=== PATIENT | male | born 1955 | race Caucasian/White ===

== ENCOUNTER 2021-07-04 17:43 | Inpatient (IN) | payer MEDICARE, MEDICAID, SELFPAY ==
--- NOTE | ~2021-07-04 | US_ITS ---
EXAMINATION: US DUPLEX LOWER EXTREMITY ARTERY LIMITED, RIGHT CLINICAL INFORMATION: 65-year-old male status post iliofemoral bypass. Left-sided colonic extremity. COMPARISON: None. TECHNIQUE: 2-D imaging, Doppler spectral analysis and color flow Doppler imaging was performed of the RIGHT lower extremity artery. FINDINGS: 2-D imaging and color Doppler evaluation of both lower extremity arterial tree shows evidence of diffuse atherosclerotic plaques throughout the entire arterial tree bilaterally. The peak systolic velocities (Peak systolic velocity of less than 100 cm/s is considered to be normal for [place] lower extremity arterial tree), and the arterial waveform (triphasic, biphasic, monophasic) are described as below: The peak systolic velocities (centimeters per second) within both lower extremities as well as the spectral waveform pattern are described below: A. Right lower extremity: 1. Common femoral artery-88.8, monophasic 2. Profunda artery-47.4, monophasic 3. Proximal femoral artery-374, monophasic, consistent with significant stenosis. 4. Mid femoral artery-45.1, monophasic 5. Distal femoral artery-22.1, monophasic 6. Popliteal artery-69.0, monophasic 7. Posterior tibial artery-39.8, monophasic Atherosclerotic plaques are noted throughout the entire right leg arteries. Left lower extremity: 1. Common femoral artery-64.88, biphasic 2. Profunda artery-47.2, biphasic 3. Proximal femoral artery-70.8, biphasic 4. Mid femoral artery-65.9, triphasic 5. Distal femoral artery-52.9, triphasic 6. Popliteal artery-68.9, biphasic 7. Posterior tibial artery-71.9, biphasic No sonographic evidence of any definite stent or bypass graft identified within the visualized arteries. US/US arterial duplex LE BI IMPRESSION: 1. Patent bilateral lower extremity arterial tree from the level of the common femoral artery through posterior tibial artery. 2. Duplex sonographic evidence of significant stenosis involving the proximal right femoral artery. 3. No definite sonographic evidence of stent or bypass graft identified within the visualized arteries bilaterally.
[2021-07-04 17:50] VITALS: BP 101/59; PULSE 111; RESP 16; TEMP 37.2; O2SAT 93; BMI 18.8
--- NOTE | 2021-07-04 21:55 | ED_ITS ---
HPI - Wound/Laceration General Chief Complaint: Wound/Laceration Stated Complaint: infection in feet Time Seen by Provider: 07/04/21 21:02 Source: patient Mode of arrival: ambulatory Limitations: no limitations History of Present Illness HPI narrative: Patient is 65 years old male with history of hypertension, HLD, COPD, CAD, status post PCI, GERD, PVD status post left femoral [place] popliteal bypass 2014 who present to [facility] on 05/18/2021 for acute on chronic left lower extremity ischemia status post left iliac stent done on 05/20/2021 patient discharged on 05/21 at the time of discharge patient has had 1+ lower extremity edema discoloration of lower extremity from ankle to foot was improving had small 1 cm ulceration on the lateral martin with no surrounding erythema since then patient noticed that had small blister on the dorsum of the left foot and the lateral aspect of left leg also on the right lateral aspect also which is getting worse patient applying Silvadene cream and bacitracin ointment without much improvement redness has increased from toe dorsum of the foot all the way to the mid leg is still feels the leg is cold. And complaining of pain and both legs. Patient denies any fever or chills no shortness of breath Related Data Allergies Allergy/AdvReac Type Severity Reaction Status Date / Time cephalexin [From Keflex] Allergy Rash Verified 07/04/21 18:09 ketorolac [From Toradol] Allergy Rash Verified 07/04/21 18:09 morphine Allergy Rash Verified 07/04/21 18:09 naproxen Allergy Rash Verified 07/04/21 18:09 metaxalone [From Skelaxin] AdvReac Headache Verified 07/04/21 18:09 Review of Systems Review of Systems: Yes all other systems are reviewed and are negative [facility] Past Medical History Medical History COPD (chronic obstructive pulmonary disease) DVT (deep venous thrombosis) Emphysema of lung Hypertension Myocardial infarction Surgical History Hx of heart artery stent Social History Social History Alcohol intake: former Patient Tobacco Use Status: Current everyday Tobacco user Use of substances other than those prescribed or required for medical reasons: Yes Substance Use Type: Marijuana Advance Directives: No Advance Directives Information Provided: No Physical Exam Vital Signs: Vital Signs: Last Vital Signs Temp 99 F 07/04/21 22:00 Pulse 111 H 07/04/21 22:00 Resp 15 07/04/21 22:43 BP 114/67 07/04/21 22:00 Pulse Ox 96 07/04/21 22:00 Oxygen Flow Rate 2 07/04/21 17:50 Body Mass Index 18.8 Const: General: comfortable and no acute distress Or ientation/consciousness: patient oriented x3 HENMT: Head: Yes normocephalic and Yes atraumatic Mouth: Normal oral and palatal mucosa present Eyes: General: appearance normal, both eyes and all related structures Neck: Neck: Yes normal visual inspection, Yes full ROM and Yes no lymphadenopathy Resp: Effort & Inspection: normal respiratory effort Auscultation: clear to auscultation bilaterally Cardio: Palpation: normal PMI Rate: regular rate Rhythm: regular rhythm Heart sounds: S1 normal heart sound present and S2 normal heart sound present Peripheral pulses: Peripheral pulses 2+ throughout GI: Inspection: Yes normal to inspection Palpation (GI): Soft to palpation and nontender Auscultation: normal bowel sounds Skin: Full body images: 1. Superficial denuded blister with erythematous base with surrounding erythema 2. open wound with healing granulation tissue with slight pus 3. Open wound with granulation tissue with surrounding erythema Neuro: General: patient oriented x3 Extrem: Other: Bilateral pedal edema left more than the right cold lower extremities left more than the right with erythema and open wounds 2+ popliteal very feeble dorsalis pedis?? bilateral MDM - Wound/Laceration MDM Narrative Medical decision making narrative: Patient arterial Doppler negative for any out to occlusion and both lower extremity will admit patient for nonhealing wounds and cellulitis of left leg Lab Data Attestation: I reviewed the patient's lab results. Result diagrams: 07/04/21 22:10 07/04/21 22:10 Labs: Lab Results 07/04/21 07/04/21 07/04/21 Range/Units 22:10 22:10 22:10 WBC 15.1 H (4.8-10.8) X10*3/uL RBC 3.26 L (4.60-5.80) X10*6/uL Hgb 10.0 L (14.0-18.0) g/dl Hct 30.9 L (42-52) % MCV 94.8 (80-98) fL MCH 30.7 (27.0-33.0) pg MCHC 32.4 (31.0-36.0) g/dl RDW 14.6 (11.0-16.0) % Plt Count 261 (160-400) X10*3/uL MPV 8.8 L (9.4-12.4) fL Immature Gran % (Auto) 2.4 H (0.0-0.4) % Neut % (Auto) 89.9 H (45-73) % Lymph % (Auto) 2.8 L (20-40) % [place] % (Auto) 4.6 (2-11) % Eos % (Auto) 0.2 (0-4) % Baso % (Auto) 0.1 (0-2) % Lymph # (Auto) 0.4 L (1.2-4.9) X10*3/uL [place] # (Auto) 0.7 (0.1-1.2) X10*3/uL Eos # (Auto) 0.0 (0.0-0.4) X10*3/uL Baso # (Auto) 0.0 (0.0-0.2) X10*3/uL Abs Immat Gran (auto) 0.36 H (0.00-0.03) X10*3/uL Absolute Neuts (auto) 13.6 H (2.0-8.3) X10*3/uL Absolute Nucleated RBC 0.000 (0.0-0.012) X10*3/uL Nucleated RBC % (auto) 0.0 (0.0-0.2) /100WBC PT 13.7 H (9.9-13.0) SEC INR 1.2 H (0.9-1.1) APTT 32.2 (24.1-38.0) SEC Sodium 139 (135-145) mmol/L Potassium 3.9 (3.3-5.1) mmol/L Chloride 93 L (96-108) mmol/L Carbon Dioxide 35 H (22-29) mmol/L Anion Gap 15 (12-20) BUN 26 H (9-16) mg/dL Creatinine 0.60 (0.5-1.4) mg/dL Estim Creat Clear Calc 112.3 Estimated GFR > 60 Random Glucose 119 H (60-115) mg/dL Lactic Acid (0.5-2.0) mmol/L Calcium 9.1 (8.4-10.2) mg/dL Total Bilirubin 0.4 (0.0-1.0) mg/dL Direct Bilirubin 0.2 (0.0-0.5) mg/dL AST 24 (5-37) U/L ALT 27 (0-40) U/L Alkaline Phosphatase 154 H (39-117) U/L Total Protein 5.9 L (6.5-8.0) g/dL Albumin 3.6 (3.5-5.0) g/dL 07/04/21 Range/Units 22:10 WBC (4.8-10.8) X10*3/uL RBC (4.60-5.80) X10*6/uL Hgb (14.0-18.0) g/dl Hct (42-52) % MCV (80-98) fL MCH (27.0-33.0) pg MCHC (31.0-36.0) g/dl RDW (11.0-16.0) % Plt Count (160-400) X10*3/uL MPV (9.4-12.4) fL Immature Gran % (Auto) (0.0-0.4) % Neut % (Auto) (45-73) % Lymph % (Auto) (20-40) % [place] % (Auto) (2-11) % Eos % (Auto) (0-4) % Baso % (Auto) (0-2) % Lymph # (Auto) (1.2-4.9) X10*3/uL [place] # (Auto) (0.1-1.2) X10*3/uL Eos # (Auto) (0.0-0.4) X10*3/uL Baso # (Auto) (0.0-0.2) X10*3/uL Abs Immat Gran (auto) (0.00-0.03) X10*3/uL Absolute Neuts (auto) (2.0-8.3) X10*3/uL Absolute Nucleated RBC (0.0-0.012) X10*3/uL Nucleated RBC % (auto) (0.0-0.2) /100WBC PT (9.9-13.0) SEC INR (0.9-1.1) APTT (24.1-38.0) SEC Sodium (135-145) mmol/L Potassium (3.3-5.1) mmol/L Chloride (96-108) mmol/L Carbon Dioxide (22-29) mmol/L Anion Gap (12-20) BUN (9-16) mg/dL Creatinine (0.5-1.4) mg/dL Estim Creat Clear Calc Estimated GFR Random Glucose (60-115) mg/dL Lactic Acid 1.5 (0.5-2.0) mmol/L Calcium (8.4-10.2) mg/dL Total Bilirubin (0.0-1.0) mg/dL Direct Bilirubin (0.0-0.5) mg/dL AST (5-37) U/L ALT (0-40) U/L Alkaline Phosphatase (39-117) U/L Total Protein (6.5-8.0) g/dL Albumin (3.5-5.0) g/dL Imaging Data Arterial Doppler lower extremity: Radiologist's impression: [place] [id number] Ultrasound Report Signed Patient: Carlos Brumfield MR#: [id number] : 1955 Acct:[id number] Age/Sex: 65 / M ADM Date: 07/04/21 Loc: .ED Attending Dr: Ordering Physician: Ramsey Mancia MD Date of Service: 07/04/21 Procedure(s): US arterial duplex LE BI Accession Number(s): [id number] cc: Ramsey Mancia MD~ EXAMINATION: US DUPLEX LOWER EXTREMITY ARTERY LIMITED, RIGHT CLINICAL INFORMATION: 65-year-old male status post iliofemoral bypass. Left-sided colonic extremity. COMPARISON: None. TECHNIQUE: 2-D imaging, Doppler spectral analysis and color flow Doppler imaging was performed of the RIGHT lower extremity artery. FINDINGS: 2-D imaging and color Doppler evaluation of both lower extremity arterial tree shows evidence of diffuse atherosclerotic plaques throughout the entire arterial tree bilaterally. The peak systolic velocities (Peak systolic velocity of less than 100 cm/s is considered to be normal for [place] lower extremity arterial tree), and the arterial waveform (triphasic, biphasic, monophasic) are described as below: The peak systolic velocities (centimeters per second) within both lower extremities as well as the spectral waveform pattern are described below: ?A. Right lower extremity: 1. Common femoral artery-88.8, monophasic 2. Profunda artery-47.4, monophasic 3. Proximal femoral artery-374, monophasic, consistent with significant stenosis. 4. Mid femoral artery-45.1, monophasic 5. Distal femoral artery-22.1, monophasic 6. Popliteal artery-69.0, monophasic 7. Posterior tibial artery-39.8, monophasic Atherosclerotic plaques are noted throughout the entire right leg arteries. Left lower extremity: 1. Common femoral artery-64.88, biphasic 2. Profunda artery-47.2, biphasic 3. Proximal femoral artery-70.8, biphasic 4. Mid femoral artery-65.9, triphasic 5. Distal femoral artery-52.9, triphasic 6. Popliteal artery-68.9, biphasic 7. Posterior tibial artery-71.9, biphasic No sonographic evidence of any definite stent or bypass graft identified within the visualized arteries. US/US arterial duplex LE BI IMPRESSION: ? 1. Patent bilateral lower extremity arterial tree from the level of the common femoral artery through posterior tibial artery. 2. Duplex sonographic evidence of significant stenosis involving the proximal right femoral artery. 3. No definite sonographic evidence of stent or bypass graft identified within the visualized arteries bilaterally. ? Dictated By: HILDA FENG MD Signed By: <Electronically signed by HILDA FENG MD in OV> 07/05/21 0022 DD/ 2143 TD/TT:? Sr. Director Product Management: LYNSEY Discharge Plan Discharge Clinical Impression: Non-healing wound Cellulitis Qualifiers: Site of cellulitis: extremity Site of cellulitis of extremity: lower extremity Laterality: left Qualified Code(s): L03.116 - Cellulitis of left lower limb Patient Disposition: Admitted As Inpatient
[2021-07-04 22:00] VITALS: BP 114/67; PULSE 111; RESP 16; TEMP 37.2; O2SAT 96
[2021-07-04 22:16] LABS: MANUAL DIFF FLAG NO
[2021-07-04 22:17] LABS: Basophils Percent Auto 0.1 % (0-2); Eosinophils Percent Auto 0.2 % (0-4); Hematocrit 30.9 % (42-52); Imm Gran Abs Auto 0.36 X10*3/uL (0.00-0.03); Imm Gran Pct Auto 2.4 % (0.0-0.4); Lymphocytes Absolute Auto 0.4 X10*3/uL (1.2-4.9); Lymphocytes Percent Auto 2.8 % (20-40); Mean Corpuscular HGB Conc 32.4 g/dl (31.0-36.0); Mean Corpuscular Hemoglobin 30.7 pg (27.0-33.0); Mean Corpuscular Volume 94.8 fL (80-98); Mean Platelet Volume 8.8 fL (9.4-12.4); Monocytes Absolute Auto 0.7 X10*3/uL (0.1-1.2); Monocytes Percent Auto 4.6 % (2-11); Neutrophils Absolute Auto 13.6 X10*3/uL (2.0-8.3); Neutrophils Percent Auto 89.9 % (45-73); Platelet Count 261 X10*3/uL (160-400); Red Blood Count 3.26 X10*6/uL (4.60-5.80); Red Cell Distribution Width 14.6 % (11.0-16.0); White Blood Count 15.1 X10*3/uL (4.8-10.8)
[2021-07-04 22:22] LABS: INTERNATIONAL NORM RATIO 1.2 (0.9-1.1); Prothrombin Time 13.7 SEC (9.9-13.0)
[2021-07-04 22:25] LABS: Partial Thromboplastin Time 32.2 SEC (24.1-38.0)
[2021-07-04 22:38] LABS: Lactic Acid 1.5 mmol/L (0.5-2.0)
[2021-07-04 22:43] VITALS: RESP 15
[2021-07-04 22:43] LABS: Alanine Aminotransferase 27 U/L (0-40); Albumin Level 3.6 g/dL (3.5-5.0); Alkaline Phosphatase 154 U/L (39-117); Anion Gap 15 (12-20); Aspartate Amino Transferase 24 U/L (5-37); Bilirubin Direct 0.2 mg/dL (0.0-0.5); Bilirubin Total 0.4 mg/dL (0.0-1.0); Blood Urea Nitrogen 26 mg/dL (9-16); Calcium 9.1 mg/dL (8.4-10.2); Carbon Dioxide 35 mmol/L (22-29); Chloride 93 mmol/L (96-108); Creatinine Clr Calc Pharmacy 112.3; Estimated Glomerular Filt Rate > 60; Glucose Random 119 mg/dL (60-115); Potassium 3.9 mmol/L (3.3-5.1); Sodium 139 mmol/L (135-145); Total Protein 5.9 g/dL (6.5-8.0)
[2021-07-04] MEDS: HYDROmorphone HCl 2 MG/ML VIAL IVPUSH (22:43)
[2021-07-04] MEDS: Piperacillin Sodium/Tazobactam 3.375 GM in 0.9 % Sodium Chloride 50 ML IV (22:44)
[2021-07-05] VITALS (10 sets, daily range): BP systolic 114–180; BP diastolic 71–84; PULSE 68–90; RESP 15–19; TEMP 36–36.5; O2SAT 90–100
[2021-07-05] MEDS: vancomycin HCL 1,000 MG in 0.9 % Sodium Chloride 250 ML 270 MG IV ×3 (00:26→20:32)
--- NOTE | 2021-07-05 00:36 | P.HPHOSP_ITS ---
History of Present Illness Date of Service: 07/05/21 Chief Complaint: Left leg ulcer with open wound. 65-year-old male with a past medical history hypertension, hyperlipidemia, CAD status post PCI, peripheral vascular disease status post left femoral [place] popliteal bypass in 2014; recent admission to the [facility] in April of 2021 for acute on chronic left lower extremity ischemia status post left iliac stent on 05/20/2021; history left lower extremity hip fracture; history of DVT presented to the hospital with a chief complaint of left lower extremity foot ulcer/blister open wound and worsening pain for the past week to 10 days. Patient reported that about 6 weeks ago here surgery for the left lower extremity; he has been doing well until week to 10 days ago when he noted blister on the foot which he has over to his the vascular surgeon about who suggested monitor closely followed by the blister Markie stated he has been doing were dressings at home; pretty gradually started on a pain in the leg subsequently came to the ER for further evaluation. Patient also mentioned that he had lower of the right lateral leg ulcer with started after had box fell on his extremity; Mentions that his son does his regular wound dressings. Who suggested him to go to the hospital for evaluation of possible infection. Patient reports that his foot is always cold; denies any new changes in the skin concerning for ischemia. Mentions the the foot has become more red around the ulcer; and the skin changes on the left like been chronic as per the patient Denies any fever chills cough. Denies any chest pain palpitations lightheadedness or dizziness. Denies any nausea vomiting diarrhea. Review of all other systems is negative except mentioned above ER course: ER team mentioned that patient noted to have ulcers on his bilateral legs; concern for infection; given IV vancomycin and Zosyn. Patient also had arterial duplex done; ER team is not concerned for any acute limb ischemia/emergency; Admitted to the hospital for further management PMFSH Medical History COPD (chronic obstructive pulmonary disease) DVT (deep venous thrombosis) Emphysema of lung Hypertension Myocardial infarction Surgical History Hx of heart artery stent Social History Household Members: Family Housing: House Do you presently have visiting nurse or other home services: Yes Alcohol intake: former Patient Tobacco Use Status: Current everyday Tobacco user Tobacco use type: Cigarette Patient Interested in Nicotine Replacement: Yes Use of substances other than those prescribed or required for medical reasons: No Substance Use Type: Marijuana Currently Displaying Signs/Symptoms of Drug Intoxication Withdrawal: No Have you been hit, kicked, punched, or otherwise hurt by someone within the past year? If so, by whom?: No Do you feel safe in your current relationship?: No Is there a partner from a previous relationship who is making you feel unsafe now?: No Are you made to feel afraid or neglected: No Advance Directives: No Advance Directives Information Provided: No Do you have thoughts of harming others: None Do you have a plan to hurt others: No Plan Recently lost weight without trying: No Nutrition Risks: No Nutritional Risk service: No Current occupational status: disabled Meds Allergies Allergy/AdvReac Type Severity Reaction Status Date / Time cephalexin [From Keflex] Allergy Rash Verified 07/04/21 18:09 ketorolac [From Toradol] Allergy Rash Verified 07/04/21 18:09 morphine Allergy Rash Verified 07/04/21 18:09 naproxen Allergy Rash Verified 07/04/21 18:09 metaxalone [From Skelaxin] AdvReac Headache Verified 07/04/21 18:09 Active Medications: Current Medications Generic Name Dose Route Start Last Admin Trade Name Freq PRN Reason Stop Dose Admin Piperacillin Sod/Tazobactam 50 mls @ 100 mls/hr 07/05/21 05:00 Sod 3.375 gm/ Sodium Chloride IV Q6H [facility] Nicotine 21 mg 07/05/21 00:30 Nicotine 21 Mg Patch.Td24 TRANSDERMA DAILY [facility] Pharmacy Consult 1 each 07/04/21 21:44 Consult Rx Vancomycin Dosing MISCELLANE DAILY PRN Consult order Pharmacy Consult 1 each 07/05/21 00:28 Consult Rx Vancomycin Dosing MISCELLANE DAILY PRN Consult order Home Medications Medication Instructions Recorded Confirmed Last Taken Type Aspirin Child 81 mg PO DAILY 07/05/21 07/05/21 07/03/21 History Eliquis 5 mg PO DAILY 07/05/21 07/05/21 Unknown History Incruse Ellipta See Rx Instructions .ROUTE .COMPLEX 0807/05/21 07/04/21 History Lasix 20 mg PO DAILY 07/05/21 07/05/21 Unknown History Neurontin 300 mg QID 07/05/21 07/05/21 07/04/21 History Symbicort See Rx Instructions .ROUTE .COMPLEX 07/05/21 07/05/21 Unknown History albuterol See Rx Instructions .ROUTE 07/05/21 07/05/21 07/03/21 History .COMPLEX PRN atorvastatin 80 mg PO DAILY 07/05/21 07/05/21 07/03/21 History duloxetine 60 mg PO DAILY 07/05/21 07/05/21 Unknown History isosorbide mononitrate 30 mg PO DAILY 07/05/21 07/05/21 Unknown History lisinopril 2.5 mg tablet (Zestril) 2.5 mg PO DAILY 07/05/21 07/05/21 Unknown History metoprolol tartrate 25 mg PO DAILY 07/05/21 07/05/21 Unknown History pantoprazole 40 mg DAILY 07/05/21 07/05/21 Unknown History vit B1 [id number]-FA 100 mg DAILY 07/05/21 07/05/21 Unknown History vit D3-folic [id number] 400 mg DAILY 07/05/21 07/05/21 Unknown History Physical Exam Vital Signs and Narrative: Vital Signs: Last Vital Signs Temp 99 F 07/04/21 22:00 Pulse 111 H 07/04/21 22:00 Resp 15 07/04/21 22:43 BP 114/67 07/04/21 22:00 Pulse Ox 96 07/04/21 22:00 Oxygen Flow Rate 2 07/04/21 17:50 Body Mass Index 18.8 Gen: Appears be in no acute distress HEENT: NCAT, Moist mucosa. Pulmonary: Vesicular breath sounds, fair air entry CVS: Normal S1-S2 Abdomen: BS+, Soft, Nontender Extremities: Warm well perfused; noted to have chronic skin changes on the left leg; bilateral feet are mildly cold; fall cysts nor palpable with the fingers but patient reports that has always had febrile pulses are palpable Doppler. Noted 1 open ulcer on the dorsum of the left foot; mild erythema noted; also had left lateral leg open ulcer. Patient had open wound on the right little leg on the history for. Range of motion around the ankles is fairly limited. Neuro: Alert and awake. Results Labs CBC and Chem 7: 07/07/21 06:33 07/07/21 06:33 Labs: Laboratory Results - last 24 hr 07/04/21 07/04/21 07/04/21 22:10 22:10 22:10 MCV 94.8 MCH 30.7 MCHC 32.4 RDW 14.6 Plt Count 261 MPV 8.8 L Immature Gran % (Auto) 2.4 H Neut % (Auto) 89.9 H Lymph % (Auto) 2.8 L [place] % (Auto) 4.6 Eos % (Auto) 0.2 Baso % (Auto) 0.1 Lymph # (Auto) 0.4 L [place] # (Auto) 0.7 Eos # (Auto) 0.0 Baso # (Auto) 0.0 Abs Immat Gran (auto) 0.36 H Absolute Neuts (auto) 13.6 H Absolute Nucleated RBC 0.000 Nucleated RBC % (auto) 0.0 PT 13.7 H INR 1.2 H APTT 32.2 Anion Gap 15 Estim Creat Clear Calc 112.3 Estimated GFR > 60 Random Glucose 119 H Lactic Acid Calcium 9.1 Total Bilirubin 0.4 Direct Bilirubin 0.2 AST 24 ALT 27 Alkaline Phosphatase 154 H Total Protein 5.9 L Albumin 3.6 07/04/21 22:10 MCV MCH MCHC RDW Plt Count MPV Immature Gran % (Auto) Neut % (Auto) Lymph % (Auto) [place] % (Auto) Eos % (Auto) Baso % (Auto) Lymph # (Auto) [place] # (Auto) Eos # (Auto) Baso # (Auto) Abs Immat Gran (auto) Absolute Neuts (auto) Absolute Nucleated RBC Nucleated RBC % (auto) PT INR APTT Anion Gap Estim Creat Clear Calc Estimated GFR Random Glucose Lactic Acid 1.5 Calcium Total Bilirubin Direct Bilirubin AST ALT Alkaline Phosphatase Total Protein Albumin Imaging Radiologist's Impressions: Impressions Duplex Scan Lower Extremity Artery 07/04/21 21:43 IMPRESSION: 1. Patent bilateral lower extremity arterial tree from the level of the common femoral artery through posterior tibial artery. 2. Duplex sonographic evidence of significant stenosis involving the proximal right femoral artery. 3. No definite sonographic evidence of stent or bypass graft identified within the visualized arteries bilaterally. Assessment and Plan (1) Cellulitis: Qualifiers: Laterality: left Site of cellulitis: extremity Site of cellulitis of extremity: lower extremity Qualified Code(s): L03.116 - Cellulitis of left lower limb Status: Acute 65-year-old male with a past medical history of hypertension, hyperlipidemia, CAD status post stent, COPD, tobacco dependence, GERD, peripheral vascular disease status post surgery, history of DVTs; presented the hospital with a chief complaint left leg ulcer/pain. Bilateral leg ulcers; secondary to peripheral vascular disease. Now has more erythema surrounding the ulcers on the right leg and left leg as well as foot dorsum. Continue vancomycin and Zosyn. Id consult Arterial Doppler showed right femoral stenosis; will consult vascular surgery for further recommendations. COPD: Stable. DuoNebs p.r.n.. Hypertension/hyperlipidemia: Continue home statin/lisinopril. History of depression: Continue home duloxetine History of peripheral vascular disease/DVT: Patient on aspirin, Eliquis. Will continue for now. GERD continue home pantoprazole. Tobacco dependence from consult no smoking cessation. Offered nicotine patch. DVT prophylaxis: Patient on Eliquis Code status: Full code Quality Stroke Does the patient have a stroke diagnosis?: No VTE Prior VTE?: No VTE Risk Level:: Medical - moderate - high VTE Device Contraindication: Treatment Not Indicated VTE Drug Contraindication: Treatment Not Indicated
[2021-07-05] MEDS: Nicotine 21 MG PATCH.TD24 TRANSDERMA ×2 (01:25→09:01)
[2021-07-05] MEDS: HYDROmorphone HCl 0.5 MG/0.5 ML SYRINGE IVPUSH ×3 (01:27→09:29)
[2021-07-05 01:36] LABS: Influenza A PCR NEGATIVE (Negative); Influenza B PCR NEGATIVE (Negative); Resp Syncy Virus RNA Qual PCR NEGATIVE (Negative); SARS COV2 PCR INHOUSE NEGATIVE (Negative)
[2021-07-05] MEDS: Piperacillin Sodium/Tazobactam 3.375 GM in 0.9 % Sodium Chloride 50 ML IV ×3 (05:14→16:22)
[2021-07-05 06:30] LABS: MANUAL DIFF FLAG NO
[2021-07-05 06:47] LABS: Basophils Percent Auto 0.2 % (0-2); Eosinophils Absolute Auto 0.1 X10*3/uL (0.0-0.4); Eosinophils Percent Auto 0.7 % (0-4); Hematocrit 30.5 % (42-52); Hemoglobin 9.6 g/dl (14.0-18.0); Imm Gran Abs Auto 0.51 X10*3/uL (0.00-0.03); Lymphocytes Absolute Auto 0.7 X10*3/uL (1.2-4.9); Lymphocytes Percent Auto 5.7 % (20-40); Mean Corpuscular HGB Conc 31.5 g/dl (31.0-36.0); Mean Corpuscular Hemoglobin 30.2 pg (27.0-33.0); Mean Corpuscular Volume 95.9 fL (80-98); Mean Platelet Volume 9.2 fL (9.4-12.4); Monocytes Absolute Auto 0.8 X10*3/uL (0.1-1.2); Monocytes Percent Auto 6.2 % (2-11); Neutrophils Absolute Auto 10.5 X10*3/uL (2.0-8.3); Neutrophils Percent Auto 83.2 % (45-73); Platelet Count 250 X10*3/uL (160-400); Red Blood Count 3.18 X10*6/uL (4.60-5.80); Red Cell Distribution Width 14.5 % (11.0-16.0); White Blood Count 12.7 X10*3/uL (4.8-10.8)
[2021-07-05 07:21] LABS: Anion Gap 11 (12-20); Blood Urea Nitrogen 25 mg/dL (9-16); Calcium 8.4 mg/dL (8.4-10.2); Carbon Dioxide 40 mmol/L (22-29); Chloride 93 mmol/L (96-108); Creatinine Clr Calc Pharmacy 96.3; Estimated Glomerular Filt Rate > 60; Glucose Random 153 mg/dL (60-115); Potassium 3.6 mmol/L (3.3-5.1); Sodium 140 mmol/L (135-145)
[2021-07-05] MEDS: Atorvastatin Calcium 80 MG TABLET PO (08:58)
[2021-07-05] MEDS: Aspirin 81 MG TAB.CHEW PO (08:58)
[2021-07-05] MEDS: Omeprazole 20 MG CAPSULE.DR PO (08:58)
[2021-07-05] MEDS: Gabapentin 300 MG CAPSULE PO ×4 (08:58→20:32)
[2021-07-05] MEDS: Cholecalciferol (Vitamin D3) 10 MCG TABLET PO (08:58)
[2021-07-05] MEDS: Isosorbide Mononitrate 30 MG TAB.ER.24H PO (08:59)
[2021-07-05] MEDS: Apixaban 5 MG TABLET PO (08:59)
[2021-07-05] MEDS: Metoprolol Tartrate 25 MG TABLET PO (08:59)
[2021-07-05] MEDS: Thiamine HCL 100 MG TABLET PO (08:59)
--- NOTE | 2021-07-05 08:59 | PM.EVENT ---
Event Note Date of Service: 07/05/21 Event Note: chart reviewed. Continue antibiotics for now. Thank you
[2021-07-05] MEDS: 0.9 % Sodium Chloride Flush 3 ML SYRINGE IVFLUSH ×2 (09:11→16:15)
--- NOTE | 2021-07-05 10:40 | PM.IMPN ---
Progress Note: A&P (1) Cellulitis: Status: Acute (2) Non-healing wound: Status: Acute Assessment and Plan: 65-year-old male with a past medical history of hypertension, hyperlipidemia, CAD status post stent, COPD, tobacco dependence, GERD, peripheral vascular disease status post surgery, history of DVTs; presented the hospital with a chief complaint left leg ulcer/pain. Bilateral leg ulcers; secondary to peripheral vascular disease.? Now has more erythema surrounding the ulcers on the right leg and left leg as well as foot dorsum.? Continue vancomycin and Zosyn. ID consult Arterial Doppler showed right femoral stenosis; will consult vascular surgery for further recommendations. Continue asa, eliquis pain management COPD Stable.? DuoNebs p.r.n.. Hypertension/hyperlipidemia:? Continue home statin/lisinopril. History of depression:? Continue home duloxetine GERD continue home pantoprazole. Tobacco dependence from consult no smoking cessation.? Offered nicotine patch. DVT prophylaxis:? Patient on Eliquis Code status:? Full code Attending [facility] Subjective Subjective Date of Service: 07/05/21 Interval History: Follow up leg ulcers increase pain to legs Physical Exam Vital Signs: Vital Signs: Last Vital Signs Temp 97.6 F 07/05/21 08:00 Pulse 90 07/05/21 08:00 Resp 17 07/05/21 08:00 BP 131/71 07/05/21 08:00 Pulse Ox 93 07/05/21 08:00 Oxygen Flow Rate 2 07/04/21 17:50 Body Mass Index 18.8 Appearing in no acute distress lung sounds are clear to auscultation heart regular rate rhythm, clear S1, S2 positive bowel sounds, abdomen is soft, nontender neuro patient is alert x3, no focal deficits Objective Data Current Medications Generic Name Dose Route Start Last Admin Trade Name Freq PRN Reason Stop Dose Admin Acetaminophen 650 mg 07/05/21 00:34 Acetaminophen 325 Mg Tablet PO Q6H PRN Pain, Mild (Pain Scale 1-3) Apixaban 5 mg 07/05/21 09:00 07/05/21 08:59 Apixaban 5 Mg Tablet PO 5 mg DAILY CON Administration Aspirin 81 mg 07/05/21 09:00 07/05/21 08:58 Aspirin 81 Mg Tab.Chew PO 81 mg DAILY CON Administration Atorvastatin Calcium 80 mg 07/05/21 09:00 07/05/21 08:58 Atorvastatin Calcium 80 Mg Tablet PO 80 mg DAILY CON Administration Duloxetine HCl 60 mg 07/05/21 09:00 07/05/21 08:59 Duloxetine Hcl 60 Mg Capsule. PO Not Given DAILY CON Furosemide 20 mg 07/05/21 09:00 07/05/21 08:58 Furosemide 20 Mg Tablet PO Not Given DAILY CON Gabapentin 300 mg 07/05/21 09:00 07/05/21 08:58 Gabapentin 300 Mg Capsule PO 300 mg QID CON Administration Hydromorphone HCl 0.5 mg 07/05/21 00:34 07/05/21 09:29 Hydromorphone Hcl 0.5 Mg/0.5 Ml Syringe IVPUSH 0.5 mg Q4H PRN Administration Pain, Severe (Pain Scale 7-10) Piperacillin Sod/Tazobactam 50 mls @ 100 mls/hr 07/05/21 05:00 07/05/21 05:50 Sod 3.375 gm/ Sodium Chloride IV Infused Q6H CON Infusion Vancomycin HCl 1,000 mg/ 270 mls @ 270 mls/hr 07/05/21 09:00 07/05/21 10:35 Sodium Chloride IV Infused Q12H CON Infusion Isosorbide Mononitrate 30 mg 07/05/21 09:00 07/05/21 08:59 Isosorbide Mononitrate 30 Mg Tab.Er.24h PO 30 mg DAILY CON Administration Lisinopril 2.5 mg 07/05/21 09:00 07/05/21 08:58 Lisinopril 2.5 Mg Tablet PO 2.5 mg DAILY CON Administration Protocol Metoprolol Tartrate 25 mg 07/05/21 09:00 07/05/21 08:59 Metoprolol Tartrate 25 Mg Tablet PO 25 mg DAILY CON Administration Nicotine 21 mg 07/05/21 00:30 07/05/21 09:01 Nicotine 21 Mg Patch.Td24 TRANSDERMA 21 mg DAILY CON Administration Omeprazole 20 mg 07/05/21 08:00 07/05/21 08:58 Omeprazole 20 Mg Capsule. PO 20 mg DAILY@0630 [facility] Administration Pharmacy Consult 1 each 07/05/21 08:00 Consult Rx Vancomycin Dosing MISCELLANE DAILY PRN Consult order Sodium Chloride 3 ml 07/05/21 08:00 07/05/21 09:11 0.9 % Sodium Chloride Flush 3 Ml Syringe IVFLUSH 3 ml QSHIFT CON Administration Thiamine HCl 100 mg 07/05/21 09:00 07/05/21 08:59 Thiamine Hcl 100 Mg Tablet PO 100 mg DAILY CON Administration Vitamin D 10 mcg 07/05/21 09:00 07/05/21 08:58 Cholecalciferol (Vitamin D3) 10 Mcg Tablet PO 10 mcg DAILY CON Administration Labs CBC & Chem 7: 07/05/21 06:19 07/05/21 06:19 Labs: Laboratory Results - last 24 hr 07/04/21 07/04/21 07/04/21 22:10 22:10 22:10 MCV 94.8 MCH 30.7 MCHC 32.4 RDW 14.6 Plt Count 261 MPV 8.8 L Immature Gran % (Auto) 2.4 H Neut % (Auto) 89.9 H Lymph % (Auto) 2.8 L [place] % (Auto) 4.6 Eos % (Auto) 0.2 Baso % (Auto) 0.1 Lymph # (Auto) 0.4 L [place] # (Auto) 0.7 Eos # (Auto) 0.0 Baso # (Auto) 0.0 Abs Immat Gran (auto) 0.36 H Absolute Neuts (auto) 13.6 H Absolute Nucleated RBC 0.000 Nucleated RBC % (auto) 0.0 PT 13.7 H INR 1.2 H APTT 32.2 Anion Gap 15 Estim Creat Clear Calc 112.3 Estimated GFR > 60 Random Glucose 119 H Lactic Acid Calcium 9.1 Total Bilirubin 0.4 Direct Bilirubin 0.2 AST 24 ALT 27 Alkaline Phosphatase 154 H Total Protein 5.9 L Albumin 3.6 Coronavirus (PCR) Influenza Type A (PCR) Influenza Type B (PCR) RSV RNA Qual (PCR) 07/04/21 07/05/21 07/05/21 22:10 00:52 06:19 MCV 95.9 MCH 30.2 MCHC 31.5 RDW 14.5 Plt Count 250 MPV 9.2 L Immature Gran % (Auto) 4.0 H Neut % (Auto) 83.2 H Lymph % (Auto) 5.7 L [place] % (Auto) 6.2 Eos % (Auto) 0.7 Baso % (Auto) 0.2 Lymph # (Auto) 0.7 L [place] # (Auto) 0.8 Eos # (Auto) 0.1 Baso # (Auto) 0.0 Abs Immat Gran (auto) 0.51 H Absolute Neuts (auto) 10.5 H Absolute Nucleated RBC 0.000 Nucleated RBC % (auto) 0.0 PT INR APTT Anion Gap Estim Creat Clear Calc Estimated GFR Random Glucose Lactic Acid 1.5 Calcium Total Bilirubin Direct Bilirubin AST ALT Alkaline Phosphatase Total Protein Albumin Coronavirus (PCR) NEGATIVE Influenza Type A (PCR) NEGATIVE Influenza Type B (PCR) NEGATIVE RSV RNA Qual (PCR) NEGATIVE 07/05/21 06:19 MCV MCH MCHC RDW Plt Count MPV Immature Gran % (Auto) Neut % (Auto) Lymph % (Auto) [place] % (Auto) Eos % (Auto) Baso % (Auto) Lymph # (Auto) [place] # (Auto) Eos # (Auto) Baso # (Auto) Abs Immat Gran (auto) Absolute Neuts (auto) Absolute Nucleated RBC Nucleated RBC % (auto) PT INR APTT Anion Gap 11 L Estim Creat Clear Calc 96.3 Estimated GFR > 60 Random Glucose 153 H Lactic Acid Calcium 8.4 D Total Bilirubin Direct Bilirubin AST ALT Alkaline Phosphatase Total Protein Albumin Coronavirus (PCR) Influenza Type A (PCR) Influenza Type B (PCR) RSV RNA Qual (PCR) Quality Stroke Does the patient have a stroke diagnosis?: No VTE Prior VTE?: No VTE Risk Level:: Medical - moderate - high VTE Device Contraindication: Treatment Not Indicated VTE Drug Contraindication: Treatment Not Indicated
[2021-07-05] MEDS: oxyCODONE HCl Immed Release 5 MG TABLET PO (11:31)
--- NOTE | 2021-07-05 12:15 | MHC.CM.PN ---
CM MET WITH PT WHO REPORTS HE LIVES ON THE SECOND FLOOR OF A [place]UP[place] WITH HIS SONS BEST FRIEND, BRIEN, AND PTS SERVICE DOG. PT REPORTS ON THE FIRST FLOOR, HIS SON. BEENA, LIVES WITH HIS . 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 PT REPORTS HE HAS A NEBULIZER, SHOWER CHAIR AND CANE, HOWEVER HIS CANE IS NO LONGER USABLE BECAUSE THE TIP WORE OFF. PT IS REQUESTING A RX FOR A NEW ONE. PT REPORTS HE HAS A HCP COMPLETED NAMING HIS SON, BEENA, THE AGENT. PT CONFIRMS HIS PCP IS ENE GARDINER. IMM DELIVERED CURRENT DC PLAN IS HOME WITH RESUMPTION OF [employer]ACHINE OPERATOR SERVICES FAMILY TO TRANSPORT CM FORWARDED RX REQUEST TO HOSPITALIST
[2021-07-05] MEDS: HYDROmorphone HCl 1 MG/ML SYRINGE IVPUSH ×3 (12:17→20:32)
[2021-07-05] MEDS: Dicyclomine HCl 10 MG CAPSULE PO (13:23)
[2021-07-05] MEDS: Albuterol Sulfate (0.083%) 2.5 MG/3 ML VIAL.NEB INHALE ×3 (13:23→20:07)
[2021-07-05] MEDS: methylPREDNISolone Sod Succ 40 MG/ML VIAL IVPUSH (16:15)
[2021-07-06] VITALS (10 sets, daily range): BP systolic 92–143; BP diastolic 60–101; PULSE 76–150; RESP 16–22; TEMP 36–36.5; O2SAT 90–98; BMI 18.8
[2021-07-06] MEDS: Piperacillin Sodium/Tazobactam 3.375 GM in 0.9 % Sodium Chloride 50 ML IV ×5 (00:43→22:33)
[2021-07-06] MEDS: diphenhydrAMINE HCL 25 MG TABLET PO (00:43)
[2021-07-06] MEDS: methylPREDNISolone Sod Succ 40 MG/ML VIAL IVPUSH ×2 (04:45→16:42)
[2021-07-06] MEDS: Omeprazole 20 MG CAPSULE.DR PO (06:28)
[2021-07-06 08:27] LABS: Hematocrit 34.9 % (42-52); Mean Corpuscular HGB Conc 31.5 g/dl (31.0-36.0); Mean Corpuscular Hemoglobin 30.1 pg (27.0-33.0); Mean Corpuscular Volume 95.6 fL (80-98); Mean Platelet Volume 9.2 fL (9.4-12.4); Platelet Count 266 X10*3/uL (160-400); Red Blood Count 3.65 X10*6/uL (4.60-5.80); Red Cell Distribution Width 14.5 % (11.0-16.0); White Blood Count 19.1 X10*3/uL (4.8-10.8)
[2021-07-06] MEDS: Albuterol Sulfate (0.083%) 2.5 MG/3 ML VIAL.NEB INHALE ×3 (08:27→15:30)
[2021-07-06] MEDS: Metoprolol Tartrate 25 MG TABLET PO (08:35)
[2021-07-06] MEDS: oxyCODONE HCl Immed Release 5 MG TABLET PO ×4 (08:35→20:47)
[2021-07-06] MEDS: Isosorbide Mononitrate 30 MG TAB.ER.24H PO (08:35)
[2021-07-06] MEDS: DULoxetine HCl 60 MG CAPSULE.DR PO (08:35)
[2021-07-06] MEDS: Thiamine HCL 100 MG TABLET PO (08:36)
[2021-07-06] MEDS: Apixaban 5 MG TABLET PO (08:36)
[2021-07-06] MEDS: vancomycin HCL 1,000 MG in 0.9 % Sodium Chloride 250 ML 270 MG IV (08:38)
[2021-07-06] MEDS: Nicotine 21 MG PATCH.TD24 TRANSDERMA (08:41)
[2021-07-06] MEDS: Cholecalciferol (Vitamin D3) 10 MCG TABLET PO (08:41)
[2021-07-06] MEDS: Aspirin 81 MG TAB.CHEW PO (08:41)
[2021-07-06] MEDS: 0.9 % Sodium Chloride Flush 3 ML SYRINGE IVFLUSH ×3 (08:41→23:15)
[2021-07-06] MEDS: Atorvastatin Calcium 80 MG TABLET PO (08:41)
[2021-07-06] MEDS: Gabapentin 300 MG CAPSULE PO ×4 (08:41→20:47)
[2021-07-06 08:59] LABS: Anion Gap 18 (12-20); Blood Urea Nitrogen 35 mg/dL (9-16); Calcium 8.6 mg/dL (8.4-10.2); Carbon Dioxide 28 mmol/L (22-29); Chloride 97 mmol/L (96-108); Creatinine Clr Calc Pharmacy 81.2; Estimated Glomerular Filt Rate > 60; Glucose Random 115 mg/dL (60-115); Potassium 4.8 mmol/L (3.3-5.1); Sodium 138 mmol/L (135-145)
[2021-07-06] MEDS: HYDROmorphone HCl 1 MG/ML SYRINGE IVPUSH ×4 (09:03→22:36)
[2021-07-06 09:11] LABS: Vancomycin Trough 15.8 mcg/mL (10.0-20.0)
--- NOTE | 2021-07-06 12:35 | PM.IMPN ---
Progress Note: A&P (1) Cellulitis: Status: Acute (2) Non-healing wound: Status: Acute Assessment and Plan: 65-year-old male with a past medical history of hypertension, hyperlipidemia, CAD status post stent, COPD, tobacco dependence, GERD, peripheral vascular disease status post surgery, history of DVTs; presented the hospital with a chief complaint left leg ulcer/pain. Bilateral leg ulcers; secondary to peripheral vascular disease.? Now has more erythema surrounding the ulcers on the right leg and left leg as well as foot dorsum.? Continue vancomycin and Zosyn. ID consult pending Arterial Doppler showed right femoral stenosis; will consult vascular surgery for further recommendations. Continue asa, eliquis pain management Diarrhea. Likely secondary to abx and hx IBS Check Stool for cdiff COPD Stable.? DuoNebs p.r.n.. Hypertension/hyperlipidemia:? Continue home statin/lisinopril. History of depression:? Continue home duloxetine GERD continue home pantoprazole. Tobacco dependence from consult no smoking cessation.? Offered nicotine patch. DVT prophylaxis:? Patient on Eliquis Code status:? Full code Attending Josh Subjective Subjective Date of Service: 07/06/21 Interval History: Follow up leg wounds having diarrhea today poor appetite Physical Exam Vital Signs: Vital Signs: Last Vital Signs Temp 97.7 F 07/06/21 12:00 Pulse 92 07/06/21 12:00 Resp 18 07/06/21 12:00 BP 92/64 07/06/21 12:00 Pulse Ox 90 L 07/06/21 12:00 Oxygen Flow Rate 2 07/04/21 17:50 Body Mass Index 18.8 Appearing in no acute distress lung sounds are clear to auscultation heart regular rate rhythm, clear S1, S2 positive bowel sounds, abdomen is soft, nontender neuro patient is alert x3, no focal deficits Multiple leg wounds Objective Data Current Medications Generic Name Dose Route Start Last Admin Trade Name Freq PRN Reason Stop Dose Admin Acetaminophen 650 mg 07/05/21 00:34 Acetaminophen 325 Mg Tablet PO Q6H PRN Pain, Mild (Pain Scale 1-3) Albuterol Sulfate 2.5 mg 07/05/21 12:00 07/06/21 11:14 Albuterol Sulfate (0.083%) 2.5 Mg/3 Ml Vial.Neb INHALE 2.5 mg RQ4H WHILE AWAKE CON Administration Apixaban 5 mg 07/05/21 09:00 07/06/21 08:36 Apixaban 5 Mg Tablet PO 5 mg DAILY CON Administration Aspirin 81 mg 07/05/21 09:00 07/06/21 08:41 Aspirin 81 Mg Tab.Chew PO 81 mg DAILY CON Administration Atorvastatin Calcium 80 mg 07/05/21 09:00 07/06/21 08:41 Atorvastatin Calcium 80 Mg Tablet PO 80 mg DAILY CON Administration Dicyclomine HCl 10 mg 07/05/21 12:31 07/05/21 13:23 Dicyclomine Hcl 10 Mg Capsule PO 10 mg QIDACHS PRN Administration abdominal cramping Duloxetine HCl 60 mg 07/05/21 09:00 07/06/21 08:35 Duloxetine Hcl 60 Mg Capsule.Dr PO 60 mg DAILY CON Administration Furosemide 20 mg 07/05/21 09:00 07/06/21 08:44 Furosemide 20 Mg Tablet PO Not Given DAILY [facility] Gabapentin 300 mg 07/05/21 09:00 07/06/21 08:41 Gabapentin 300 Mg Capsule PO 300 mg QID CON Administration Hydromorphone HCl 1 mg 07/05/21 10:54 07/06/21 09:03 Hydromorphone Hcl 1 Mg/Ml Syringe IVPUSH 1 mg Q4H PRN Administration Pain, Severe (Pain Scale 7-10) Piperacillin Sod/Tazobactam 50 mls @ 100 mls/hr 07/05/21 05:00 07/06/21 12:27 Sod 3.375 gm/ Sodium Chloride IV 100 mls/hr Q6H CON Administration Vancomycin HCl 1,000 mg/ 270 mls @ 270 mls/hr 07/05/21 09:00 07/06/21 09:40 Sodium Chloride IV Infused Q12H CON Infusion Vancomycin HCl 750 mg/ Sodium 265 mls @ 265 mls/hr 07/06/21 21:00 Chloride IV Q12H CON Isosorbide Mononitrate 30 mg 07/05/21 09:00 07/06/21 08:35 Isosorbide Mononitrate 30 Mg Tab.Er.24h PO 30 mg DAILY CON Administration Lisinopril 2.5 mg 07/05/21 09:00 07/06/21 08:41 Lisinopril 2.5 Mg Tablet PO 2.5 mg DAILY CON Administration Protocol Methylprednisolone Sodium Succinate 40 mg 07/05/21 16:00 07/06/21 04:45 Methylprednisolone Sod Succ 40 Mg/Ml Vial IVPUSH 40 mg Q12H CON Administration Metoprolol Tartrate 25 mg 07/05/21 09:00 07/06/21 08:35 Metoprolol Tartrate 25 Mg Tablet PO 25 mg DAILY CON Administration Nicotine 21 mg 07/05/21 00:30 07/06/21 08:41 Nicotine 21 Mg Patch.Td24 TRANSDERMA 21 mg DAILY CON Administration Omeprazole 20 mg 07/05/21 08:00 07/06/21 06:28 Omeprazole 20 Mg Capsule. PO 20 mg DAILY@0630 CON Administration Oxycodone HCl 5 mg 07/05/21 10:53 07/06/21 08:35 Oxycodone Hcl Immed Release 5 Mg Tablet PO 5 mg Q4H PRN Administration Pain, Mild (Pain Scale 1-3) Pharmacy Consult 1 each 07/05/21 08:00 Consult Rx Vancomycin Dosing MISCELLANE DAILY PRN Consult order Sodium Chloride 3 ml 07/05/21 08:00 07/06/21 08:41 0.9 % Sodium Chloride Flush 3 Ml Syringe IVFLUSH 3 ml QSHIFT CON Administration Thiamine HCl 100 mg 07/05/21 09:00 07/06/21 08:36 Thiamine Hcl 100 Mg Tablet PO 100 mg DAILY CON Administration Vitamin D 10 mcg 07/05/21 09:00 07/06/21 08:41 Cholecalciferol (Vitamin D3) 10 Mcg Tablet PO 10 mcg DAILY CON Administration Labs CBC & Chem 7: 07/06/21 08:03 07/06/21 08:03 Labs: Laboratory Results - last 24 hr 07/06/21 07/06/21 07/06/21 08:03 08:03 08:03 MCV 95.6 MCH 30.1 MCHC 31.5 RDW 14.5 Plt Count 266 MPV 9.2 L Absolute Nucleated RBC 0.000 Nucleated RBC % (auto) 0.0 Anion Gap 18 Estim Creat Clear Calc 81.2 Estimated GFR > 60 Random Glucose 115 Calcium 8.6 Vancomycin Trough 15.8 Microbiology Microbiology Results: Microbiology 07/04/21 22:10 Blood - Venous Blood Culture - Preliminary No growth after 24 hours. 07/04/21 21:51 Blood - Venous Blood Culture - Preliminary No growth after 24 hours. Quality Stroke Does the patient have a stroke diagnosis?: No VTE Prior VTE?: No VTE Risk Level:: Medical - moderate - high VTE Device Contraindication: Treatment Not Indicated VTE Drug Contraindication: Treatment Not Indicated
--- NOTE | 2021-07-06 12:56 | W.PM.IDCN ---
History of Present Illness Data of Consult Service Date: 07/06/21 Requesting physician: Jesus Moreno Primary Care Provider: Jorge Garcia MD HPI Reason for consult: cellulitis He presents to hospital with worsening redness bilateral lower extremities. He has had this over last week He has been walking with walker barefoot in house He has had [facility] visit and stent 05/20 for femoral/popiteal PAD He noticed well until last week and saw blisters left dorsum foot and lateral and medial malleolar areas and drainage Review of Systems Review of Systems: Yes all other systems are reviewed and are negative PMFSH Past Medical History Medical History COPD (chronic obstructive pulmonary disease) DVT (deep venous thrombosis) Emphysema of lung Hypertension Myocardial infarction Surgical History Surgical History Hx of heart artery stent Social History Social History Household Members: Family Housing: House Do you presently have visiting nurse or other home services: Yes Alcohol intake: former Patient Tobacco Use Status: Current everyday Tobacco user Tobacco use type: Cigarette Patient Interested in Nicotine Replacement: Yes Use of substances other than those prescribed or required for medical reasons: No Substance Use Type: Marijuana Currently Displaying Signs/Symptoms of Drug Intoxication Withdrawal: No Have you been hit, kicked, punched, or otherwise hurt by someone within the past year? If so, by whom?: No Do you feel safe in your current relationship?: No Is there a partner from a previous relationship who is making you feel unsafe now?: No Are you made to feel afraid or neglected: No Advance Directives: No Advance Directives Information Provided: No Do you have thoughts of harming others: None Do you have a plan to hurt others: No Plan Recently lost weight without trying: No Nutrition Risks: No Nutritional Risk service: No Current occupational status: disabled Meds Allergies Allergy/AdvReac Type Severity Reaction Status Date / Time cephalexin [From Keflex] Allergy Rash Verified 07/04/21 18:09 ketorolac [From Toradol] Allergy Rash Verified 07/04/21 18:09 morphine Allergy Rash Verified 07/04/21 18:09 naproxen Allergy Rash Verified 07/04/21 18:09 metaxalone [From Skelaxin] AdvReac Headache Verified 07/04/21 18:09 Active Medications: Current Medications Generic Name Dose Route Start Last Admin Trade Name Justice PRN Reason Stop Dose Admin Acetaminophen 650 mg 07/05/21 00:34 Acetaminophen 325 Mg Tablet PO Q6H PRN Pain, Mild (Pain Scale 1-3) Albuterol Sulfate 2.5 mg 07/05/21 12:00 07/06/21 11:14 Albuterol Sulfate (0.083%) 2.5 Mg/3 Ml Vial.Neb INHALE 2.5 mg RQ4H WHILE AWAKE CON Administration Apixaban 5 mg 07/05/21 09:00 07/06/21 08:36 Apixaban 5 Mg Tablet PO 5 mg DAILY CON Administration Aspirin 81 mg 07/05/21 09:00 07/06/21 08:41 Aspirin 81 Mg Tab.Chew PO 81 mg DAILY CON Administration Atorvastatin Calcium 80 mg 07/05/21 09:00 07/06/21 08:41 Atorvastatin Calcium 80 Mg Tablet PO 80 mg DAILY CON Administration Dicyclomine HCl 10 mg 07/05/21 12:31 07/05/21 13:23 Dicyclomine Hcl 10 Mg Capsule PO 10 mg QIDACHS PRN Administration abdominal cramping Duloxetine HCl 60 mg 07/05/21 09:00 07/06/21 08:35 Duloxetine Hcl 60 Mg Capsule.Dr PO 60 mg DAILY CON Administration Furosemide 20 mg 07/05/21 09:00 07/06/21 08:44 Furosemide 20 Mg Tablet PO Not Given DAILY CON Gabapentin 300 mg 07/05/21 09:00 07/06/21 08:41 Gabapentin 300 Mg Capsule PO 300 mg QID CON Administration Hydromorphone HCl 1 mg 07/05/21 10:54 07/06/21 09:03 Hydromorphone Hcl 1 Mg/Ml Syringe IVPUSH 1 mg Q4H PRN Administration Pain, Severe (Pain Scale 7-10) Piperacillin Sod/Tazobactam 50 mls @ 100 mls/hr 07/05/21 05:00 07/06/21 12:27 Sod 3.375 gm/ Sodium Chloride IV 100 mls/hr Q6H CON Administration Vancomycin HCl 1,000 mg/ 270 mls @ 270 mls/hr 07/05/21 09:00 07/06/21 09:40 Sodium Chloride IV Infused Q12H CON Infusion Vancomycin HCl 750 mg/ Sodium 265 mls @ 265 mls/hr 07/06/21 21:00 Chloride IV Q12H CON Isosorbide Mononitrate 30 mg 07/05/21 09:00 07/06/21 08:35 Isosorbide Mononitrate 30 Mg Tab.Er.24h PO 30 mg DAILY CON Administration Lisinopril 2.5 mg 07/05/21 09:00 07/06/21 08:41 Lisinopril 2.5 Mg Tablet PO 2.5 mg DAILY CON Administration Protocol Melatonin 6 mg 07/06/21 12:44 Melatonin 3 Mg Tablet PO BEDTIME PRN insomnia Methylprednisolone Sodium Succinate 40 mg 07/05/21 16:00 07/06/21 04:45 Methylprednisolone Sod Succ 40 Mg/Ml Vial IVPUSH 40 mg Q12H CON Administration Metoprolol Tartrate 25 mg 07/05/21 09:00 07/06/21 08:35 Metoprolol Tartrate 25 Mg Tablet PO 25 mg DAILY CON Administration Nicotine 21 mg 07/05/21 00:30 07/06/21 08:41 Nicotine 21 Mg Patch.Td24 TRANSDERMA 21 mg DAILY CON Administration Omeprazole 20 mg 07/05/21 08:00 07/06/21 06:28 Omeprazole 20 Mg Capsule. PO 20 mg DAILY@0630 [facility] Administration Oxycodone HCl 5 mg 07/05/21 10:53 07/06/21 12:39 Oxycodone Hcl Immed Release 5 Mg Tablet PO 5 mg Q4H PRN Administration Pain, Mild (Pain Scale 1-3) Pharmacy Consult 1 each 07/05/21 08:00 Consult Rx Vancomycin Dosing MISCELLANE DAILY PRN Consult order Sodium Chloride 3 ml 07/05/21 08:00 07/06/21 08:41 0.9 % Sodium Chloride Flush 3 Ml Syringe IVFLUSH 3 ml QSHIFT [facility] Administration Thiamine HCl 100 mg 07/05/21 09:00 07/06/21 08:36 Thiamine Hcl 100 Mg Tablet PO 100 mg DAILY CON Administration Vitamin D 10 mcg 07/05/21 09:00 07/06/21 08:41 Cholecalciferol (Vitamin D3) 10 Mcg Tablet PO 10 mcg DAILY CON Administration Home Medications Medication Instructions Recorded Confirmed Last Taken Type Aspirin Child 81 mg PO DAILY 07/05/21 07/05/21 07/03/21 History Eliquis 5 mg PO DAILY 07/05/21 07/05/21 Unknown History Incruse Ellipta See Rx Instructions .ROUTE .COMPLEX 07/05/21 07/05/21 07/04/21 History Lasix 20 mg PO DAILY 07/05/21 07/05/21 Unknown History Neurontin 300 mg QID 07/05/21 07/05/21 07/04/21 History Symbicort See Rx Instructions .ROUTE .COMPLEX 07/05/21 07/05/21 Unknown History albuterol See Rx Instructions .ROUTE 07/05/21 07/05/21 07/03/21 History .COMPLEX PRN atorvastatin 80 mg PO DAILY 07/05/21 07/05/21 07/03/21 History duloxetine 60 mg PO DAILY 07/05/21 07/05/21 Unknown History isosorbide mononitrate 30 mg PO DAILY 07/05/21 07/05/21 Unknown History lisinopril 2.5 mg tablet (Zestril) 2.5 mg PO DAILY 07/05/21 07/05/21 Unknown History metoprolol tartrate 25 mg PO DAILY 07/05/21 07/05/21 Unknown History pantoprazole 40 mg DAILY 07/05/21 07/05/21 Unknown History vit B1 [id number] 100 mg DAILY 07/05/21 07/05/21 Unknown History vit D3-folic [id number] 400 mg DAILY 07/05/21 07/05/21 Unknown History Physical Exam Vital Signs: Vital Signs: Last Vital Signs Temp 97.7 F 07/06/21 12:00 Pulse 92 07/06/21 12:00 Resp 18 07/06/21 12:00 BP 92/64 07/06/21 12:00 Pulse Ox 90 L 07/06/21 12:00 Oxygen Flow Rate 2 07/04/21 17:50 Body Mass Index 18.8 Const: General: cooperative HENMT: Head: Yes normal to inspection Mouth: Normal oral and palatal mucosa present Eyes: General: appearance normal, both eyes and all related structures Resp: Effort & Inspection: normal respiratory effort Cardio: Rate: regular rate Rhythm: regular rhythm GI: Palpation (GI): Soft to palpation and nontender Skin: General skin exam: no rashes or lesions noted Extrem: Other: left leg open 3 cm dorsal foot blister area less than 1 cm area medial and lateral malleolar area erythema erythema Results Labs CBC & Chem 7: 07/07/21 06:33 07/07/21 06:33 Labs: Short CBC 07/06/21 Range/Units 08:03 WBC 19.1 H (4.8-10.8) X10*3/uL Hgb 11.0 L (14.0-18.0) g/dl Hct 34.9 L (42-52) % Plt Count 266 (160-400) X10*3/uL BMP 07/06/21 08:03 Sodium 138 Potassium 4.8 D Chloride 97 Carbon Dioxide 28 BUN 35 H Creatinine 0.83 Calcium 8.6 Microbiology Microbiology Results: Microbiology 07/04/21 22:10 Blood - Venous Blood Culture - Preliminary No growth after 24 hours. 07/04/21 21:51 Blood - Venous Blood Culture - Preliminary No growth after 24 hours. Assessment and Plan (1) Cellulitis: Qualifiers: Laterality: left Site of cellulitis: extremity Site of cellulitis of extremity: lower extremity Qualified Code(s): L03.116 - Cellulitis of left lower limb Status: Acute He has leukocytosis as well He has culture blood negative He has hygiene challenges contributing as plantar areas black from floor Leukocytosis concern so if diarrhea check Cdiff Suggest Would continue Vancomycin and Zosyn for now He would probably do 5 days therapy and then po Doxycycline for a week Follow up Wound Care and Vascular (2) Non-healing wound: Status: Acute
[2021-07-06 15:30] LABS: CDiff Gene PCR NEGATIVE (Negative)
--- NOTE | 2021-07-06 16:02 | MHC.CLN ---
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 ADDED EENSURE eNLIVE 240 ML BID. BMI=18.8. REPORTS 50# WEIGHT LOSS X 1 YEAR.
[2021-07-06] MEDS: Melatonin 3 MG TABLET 6 MG PO (19:45)
[2021-07-06] MEDS: vancomycin HCL 750 MG in 0.9 % Sodium Chloride 250 ML 265 MG IV (21:17)
[2021-07-07] VITALS (10 sets, daily range): BP systolic 122–166; BP diastolic 64–80; PULSE 78–95; RESP 16–17; TEMP 35.8–36.6; O2SAT 95–100
[2021-07-07] MEDS: oxyCODONE HCl Immed Release 5 MG TABLET PO ×5 (00:59→19:31)
[2021-07-07] MEDS: methylPREDNISolone Sod Succ 40 MG/ML VIAL IVPUSH ×2 (05:32→15:31)
[2021-07-07] MEDS: Piperacillin Sodium/Tazobactam 3.375 GM in 0.9 % Sodium Chloride 50 ML IV ×4 (05:32→22:58)
[2021-07-07] MEDS: Omeprazole 20 MG CAPSULE.DR PO (05:32)
[2021-07-07] MEDS: HYDROmorphone HCl 1 MG/ML SYRINGE IVPUSH ×4 (06:00→18:01)
[2021-07-07] MEDS: 0.9 % Sodium Chloride Flush 3 ML SYRINGE IVFLUSH ×3 (07:14→23:32)
[2021-07-07 07:46] LABS: Hematocrit 31.7 % (42-52); Hemoglobin 9.9 g/dl (14.0-18.0); Mean Corpuscular HGB Conc 31.2 g/dl (31.0-36.0); Mean Corpuscular Hemoglobin 29.9 pg (27.0-33.0); Mean Corpuscular Volume 95.8 fL (80-98); Mean Platelet Volume 9.5 fL (9.4-12.4); Platelet Count 275 X10*3/uL (160-400); Red Blood Count 3.31 X10*6/uL (4.60-5.80); Red Cell Distribution Width 14.5 % (11.0-16.0); White Blood Count 17.8 X10*3/uL (4.8-10.8)
[2021-07-07 08:00] LABS: Anion Gap 17 (12-20); Blood Urea Nitrogen 35 mg/dL (9-16); Calcium 9.5 mg/dL (8.4-10.2); Carbon Dioxide 34 mmol/L (22-29); Chloride 95 mmol/L (96-108); Creatinine Clr Calc Pharmacy 81.2; Estimated Glomerular Filt Rate > 60; Glucose Random 75 mg/dL (60-115); Potassium 4.8 mmol/L (3.3-5.1); Sodium 141 mmol/L (135-145)
[2021-07-07] MEDS: Albuterol Sulfate (0.083%) 2.5 MG/3 ML VIAL.NEB INHALE ×3 (08:00→15:31)
[2021-07-07] MEDS: Cholecalciferol (Vitamin D3) 10 MCG TABLET PO (08:50)
[2021-07-07] MEDS: DULoxetine HCl 60 MG CAPSULE.DR PO (08:50)
[2021-07-07] MEDS: Apixaban 5 MG TABLET PO (08:50)
[2021-07-07] MEDS: Isosorbide Mononitrate 30 MG TAB.ER.24H PO (08:50)
[2021-07-07] MEDS: Metoprolol Tartrate 25 MG TABLET PO (08:50)
[2021-07-07] MEDS: Aspirin 81 MG TAB.CHEW PO (08:50)
[2021-07-07] MEDS: Dicyclomine HCl 10 MG CAPSULE PO (08:51)
[2021-07-07] MEDS: Gabapentin 300 MG CAPSULE PO ×3 (08:51→17:58)
[2021-07-07] MEDS: vancomycin HCL 750 MG in 0.9 % Sodium Chloride 250 ML 265 MG IV ×2 (08:51→23:32)
[2021-07-07] MEDS: Atorvastatin Calcium 80 MG TABLET PO (08:51)
[2021-07-07] MEDS: Nicotine 21 MG PATCH.TD24 TRANSDERMA (08:52)
[2021-07-07] MEDS: Loperamide HCl 2 MG CAPSULE 4 MG PO ×2 (09:38→15:30)
--- NOTE | 2021-07-07 10:54 | PC.NURSE ---
Skin/Wound assessment completed today. all wounds present on admission. Patient has multiple venous ulcers on bilateral legs and left foot. Scabs om below knee and bruising to bilateral arms. Triad and silver alginate applied to wound beds covered with non woven gauze and roll gauze. This nurse cleaned the black sticky residue off bilateral feet, no wounds on plantar feet. EPC cream applied to anal area for slight redness from diarrhea.
--- NOTE | 2021-07-07 11:12 | PM.IMPN ---
Progress Note: A&P (1) Cellulitis: Status: Acute (2) Non-healing wound: Status: Acute Assessment and Plan: 65-year-old male with a past medical history of hypertension, hyperlipidemia, CAD status post stent, COPD, tobacco dependence, GERD, peripheral vascular disease status post surgery, history of DVTs; presented the hospital with a chief complaint left leg ulcer/pain. Bilateral leg ulcers; secondary to peripheral vascular disease.? Now has more erythema surrounding the ulcers on the right leg and left leg as well as foot dorsum.? Continue vancomycin and Zosyn total 5 day course then change to doxycycline for one week ID following Arterial Doppler showed right femoral stenosis; o/p vascular workup Continue asa, eliquis pain management seen and evaluated by wound care with rec: Triad and silver alginate applied to wound beds covered with non woven gauze and roll gauze. Diarrhea. Likely secondary to abx and hx IBS Cdiff neg Immodium prn COPD Stable.? DuoNebs p.r.n.. Hypertension/hyperlipidemia:? Continue home statin/lisinopril. History of depression:? Continue home duloxetine GERD continue home pantoprazole. Tobacco dependence from consult no smoking cessation.? Offered nicotine patch. DVT prophylaxis:? Patient on Eliquis Code status:? Full code Attending Lionel Subjective Subjective Date of Service: 07/07/21 Interval History: Follow up venous ulcers, cellulitis leg pain chronic diarrhea continues, no cdiff Physical Exam Vital Signs: Vital Signs: Last Vital Signs Temp 96.9 F 07/07/21 00:00 Pulse 88 07/07/21 08:00 Resp 16 07/07/21 04:00 BP 134/80 07/07/21 06:05 Pulse Ox 97 07/07/21 00:00 Oxygen Flow Rate 2 07/04/21 17:50 Body Mass Index 18.8 Appearing in no acute distress lung sounds are clear to auscultation heart regular rate rhythm, clear S1, S2 positive bowel sounds, abdomen is soft, nontender neuro patient is alert x3, no focal deficits Bruising noted to both arms venous ulcers on bilateral lower extremities Objective Data Current Medications Generic Name Dose Route Start Last Admin Trade Name Freq PRN Reason Stop Dose Admin Acetaminophen 650 mg 07/05/21 00:34 Acetaminophen 325 Mg Tablet PO Q6H PRN Pain, Mild (Pain Scale 1-3) Albuterol Sulfate 2.5 mg 08/08/21 12:00 07/07/21 08:00 Albuterol Sulfate (0.083%) 2.5 Mg/3 Ml Vial.Neb INHALE 2.5 mg RQ4H WHILE AWAKE CON Administration Apixaban 5 mg 07/05/21 09:00 07/07/21 08:50 Apixaban 5 Mg Tablet PO 5 mg DAILY CON Administration Aspirin 81 mg 07/05/21 09:00 07/07/21 08:50 Aspirin 81 Mg Tab.Chew PO 81 mg DAILY CON Administration Atorvastatin Calcium 80 mg 07/05/21 09:00 07/07/21 08:51 Atorvastatin Calcium 80 Mg Tablet PO 80 mg DAILY CON Administration Dicyclomine HCl 10 mg 07/05/21 12:31 07/07/21 08:51 Dicyclomine Hcl 10 Mg Capsule PO 10 mg QIDACHS PRN Administration abdominal cramping Duloxetine HCl 60 mg 07/05/21 09:00 07/07/21 08:50 Duloxetine Hcl 60 Mg Capsule.Dr PO 60 mg DAILY CON Administration Furosemide 20 mg 07/05/21 09:00 07/07/21 08:52 Furosemide 20 Mg Tablet PO Not Given DAILY CON Gabapentin 300 mg 07/05/21 09:00 07/07/21 08:51 Gabapentin 300 Mg Capsule PO 300 mg QID CON Administration Hydromorphone HCl 1 mg 07/05/21 10:54 07/07/21 10:01 Hydromorphone Hcl 1 Mg/Ml Syringe IVPUSH 1 mg Q4H PRN Administration Pain, Severe (Pain Scale 7-10) Piperacillin Sod/Tazobactam 50 mls @ 100 mls/hr 07/05/21 05:00 07/07/21 10:56 Sod 3.375 gm/ Sodium Chloride IV 100 mls/hr Q6H CON Administration Vancomycin HCl 750 mg/ Sodium 265 mls @ 265 mls/hr 07/06/21 21:00 07/07/21 10:20 Chloride IV Infused Q12H CON Infusion Isosorbide Mononitrate 30 mg 07/05/21 09:00 07/07/21 08:50 Isosorbide Mononitrate 30 Mg Tab.Er.24h PO 30 mg DAILY CON Administration Lisinopril 2.5 mg 07/05/21 09:00 07/07/21 08:51 Lisinopril 2.5 Mg Tablet PO 2.5 mg DAILY CON Administration Protocol Loperamide HCl 4 mg 07/07/21 09:23 07/07/21 09:38 Loperamide Hcl 2 Mg Capsule PO 4 mg Q6H PRN Administration Diarrhea Melatonin 6 mg 07/06/21 12:44 07/06/21 19:45 Melatonin 3 Mg Tablet PO 6 mg BEDTIME PRN Administration insomnia Methylprednisolone Sodium Succinate 40 mg 07/05/21 16:00 07/07/21 05:32 Methylprednisolone Sod Succ 40 Mg/Ml Vial IVPUSH 40 mg Q12H CON Administration Metoprolol Tartrate 25 mg 07/05/21 09:00 07/07/21 08:50 Metoprolol Tartrate 25 Mg Tablet PO 25 mg DAILY CON Administration Nicotine 21 mg 07/05/21 00:30 07/07/21 08:52 Nicotine 21 Mg Patch.Td24 TRANSDERMA 21 mg DAILY CON Administration Omeprazole 20 mg 07/05/21 08:00 07/07/21 05:32 Omeprazole 20 Mg Capsule.Dr PO 20 mg DAILY@0630 CON Administration Oxycodone HCl 5 mg 07/05/21 10:53 07/07/21 07:16 Oxycodone Hcl Immed Release 5 Mg Tablet PO 5 mg Q4H PRN Administration Pain, Mild (Pain Scale 1-3) Pharmacy Consult 1 each 07/05/21 08:00 Consult Rx Vancomycin Dosing MISCELLANE DAILY PRN Consult order Sodium Chloride 3 ml 07/05/21 08:00 07/07/21 07:14 0.9 % Sodium Chloride Flush 3 Ml Syringe IVFLUSH 3 ml QSHIFT CON Administration Thiamine HCl 100 mg 07/05/21 09:00 07/07/21 08:51 Thiamine Hcl 100 Mg Tablet PO Not Given DAILY [facility] Vitamin D 10 mcg 07/05/21 09:00 07/07/21 08:50 Cholecalciferol (Vitamin D3) 10 Mcg Tablet PO 10 mcg DAILY CON Administration Labs CBC & Chem 7: 07/07/21 06:33 07/07/21 06:33 Labs: Laboratory Results - last 24 hr 07/06/21 07/07/21 07/07/21 13:50 06:33 06:33 MCV 95.8 MCH 29.9 MCHC 31.2 RDW 14.5 Plt Count 275 MPV 9.5 Absolute Nucleated RBC 0.000 Nucleated RBC % (auto) 0.0 Anion Gap 17 Estim Creat Clear Calc 81.2 Estimated GFR > 60 Random Glucose 75 Calcium 9.5 D C. difficile Tox B Gene NEGATIVE Microbiology Microbiology Results: Microbiology 07/04/21 22:10 Blood - Venous Blood Culture - Preliminary No growth after 48 hours. 07/04/21 21:51 Blood - Venous Blood Culture - Preliminary No growth after 48 hours. Quality Stroke Does the patient have a stroke diagnosis?: No VTE Prior VTE?: No VTE Risk Level:: Medical - moderate - high VTE Device Contraindication: Treatment Not Indicated VTE Drug Contraindication: Treatment Not Indicated
[2021-07-07] MEDS: Melatonin 3 MG TABLET 6 MG PO (19:31)
[2021-07-07 22:32] LABS: Vancomycin Trough 9.8 mcg/mL (10.0-20.0)
[2021-07-08] MEDS: HYDROmorphone HCl 1 MG/ML SYRINGE IVPUSH ×2 (02:53→07:10)
[2021-07-08] MEDS: methylPREDNISolone Sod Succ 40 MG/ML VIAL IVPUSH (03:13)
[2021-07-08 04:00] VITALS: BP 136/74; PULSE 83; RESP 18; TEMP 36.6; O2SAT 97
[2021-07-08] MEDS: oxyCODONE HCl Immed Release 5 MG TABLET PO ×2 (04:10→08:11)
[2021-07-08] MEDS: Piperacillin Sodium/Tazobactam 3.375 GM in 0.9 % Sodium Chloride 50 ML IV (04:11)
[2021-07-08] MEDS: Omeprazole 20 MG CAPSULE.DR PO (05:36)
[2021-07-08] MEDS: Nicotine 21 MG PATCH.TD24 TRANSDERMA (07:09)
[2021-07-08] MEDS: DULoxetine HCl 60 MG CAPSULE.DR PO (07:12)
[2021-07-08] MEDS: Aspirin 81 MG TAB.CHEW PO (07:12)
[2021-07-08] MEDS: Loperamide HCl 2 MG CAPSULE 4 MG PO (07:12)
[2021-07-08] MEDS: Gabapentin 300 MG CAPSULE PO (07:12)
[2021-07-08] MEDS: 0.9 % Sodium Chloride Flush 3 ML SYRINGE IVFLUSH (07:12)
[2021-07-08] MEDS: Isosorbide Mononitrate 30 MG TAB.ER.24H PO (07:12)
[2021-07-08] MEDS: Cholecalciferol (Vitamin D3) 10 MCG TABLET PO (07:13)
[2021-07-08] MEDS: Metoprolol Tartrate 25 MG TABLET PO (07:13)
[2021-07-08] MEDS: Furosemide 20 MG TABLET PO (07:13)
[2021-07-08] MEDS: Apixaban 5 MG TABLET PO (07:13)
[2021-07-08] MEDS: Atorvastatin Calcium 80 MG TABLET PO (07:13)
[2021-07-08 07:25] VITALS: BP 134/76; PULSE 81; RESP 18; TEMP 36.7; O2SAT 97
[2021-07-08] MEDS: predniSONE 20 MG TABLET 40 MG PO (08:12)
[2021-07-08] MEDS: Albuterol Sulfate (0.083%) 2.5 MG/3 ML VIAL.NEB INHALE (08:17)
[2021-07-08 08:18] VITALS: PULSE 78; O2SAT 99
--- NOTE | 2021-07-08 09:30 | PM.DS ---
DS: Providers Provider Date of Service: 07/08/21 Date of admission: 07/05/21 00:34 Primary care physician: Jorge Garcia MD Consults: 07/05/21 00:28 Consult to Infectious Diseases Routine Consulting Provider: Rissa Gan Reason for consultation: led ulcers/cellulitis; hx PVD 07/05/21 00:33 Consult to Vascular Surgery Stat Consulting Provider: Jeff Bennett Reason for consultation: hx PVD; recent LLE DVT s/p thrombectomy; rt proximal art stenosis DS: Diagnosis Discharge Diagnosis (1) Cellulitis: Status: Acute (2) Non-healing wound: Status: Acute DS: Medications Discharge Medications Home Medications: Home Medications Medication Instructions Recorded Confirmed Aspirin Child 81 mg PO DAILY 07/05/21 07/05/21 Eliquis 5 mg PO DAILY 07/05/21 07/05/21 Incruse Ellipta See Rx Instructions .ROUTE .COMPLEX 07/05/21 07/05/21 Lasix 20 mg PO DAILY 07/05/21 07/05/21 Neurontin 300 mg QID 07/05/21 07/05/21 Symbicort See Rx Instructions .ROUTE .COMPLEX 07/05/21 07/05/21 albuterol See Rx Instructions .ROUTE 07/05/21 07/05/21 .COMPLEX PRN atorvastatin 80 mg PO DAILY 07/05/21 07/05/21 duloxetine 60 mg PO DAILY 07/05/21 07/05/21 isosorbide mononitrate 30 mg PO DAILY 07/05/21 07/05/21 lisinopril 2.5 mg tablet (Zestril) 2.5 mg PO DAILY 07/05/21 07/05/21 metoprolol tartrate 25 mg PO DAILY 07/05/21 07/05/21 pantoprazole 40 mg DAILY 07/05/21 07/05/21 vit B1 [id number]-FA 100 mg DAILY 07/05/21 07/05/21 vit D3-folic [id number] 400 mg DAILY 07/05/21 07/05/21 Previous Rx's Medication Instructions Recorded doxycycline hyclate 100 mg tablet 100 mg PO BID #20 tab 07/08/21 oxycodone 5 mg tablet 5 mg PO Q8H PRN 3 Days #9 tab 07/08/21 prednisone 10 mg tablet 40 mg PO DAILY 5 Days #20 tab 07/08/21 DS: Summary Hospital Course Hospital Course: HP as per admitting provider 65-year-old male with a past medical history hypertension, hyperlipidemia, CAD status post PCI, peripheral vascular disease status post left femoral [place] popliteal bypass in 2014; recent admission to the [facility] in April of 2021 for acute on chronic left lower extremity ischemia status post left iliac stent on 05/20/2021; history left lower extremity hip fracture; history of DVT presented to the hospital with a chief complaint of left lower extremity foot ulcer/blister open wound and worsening pain for the past week to 10 days. Patient reported that about 6 weeks ago here surgery for the left lower extremity; he has been doing well until week to 10 days ago when he noted blister on the foot which he has over to his the vascular surgeon about who suggested monitor closely followed by the blister Markie stated he has been doing were dressings at home; pretty gradually started on a pain in the leg subsequently came to the ER for further evaluation. Patient also mentioned that he had lower of the right lateral leg ulcer with started after had box fell on his extremity; Mentions that his son does his regular wound dressings.? Who suggested him to go to the hospital for evaluation of possible infection. Patient reports that his foot is always cold; denies any new changes in the skin concerning for ischemia. Mentions the the foot has become more red around the ulcer; and the skin changes on the left like been chronic as per the patient . Vascular ulcers. Treated with IV vancomycin and Zosyn. Seen and evaluated by Infectious Disease. he had arterial duplex ultrasound that showed PE in bilateral lower extremity arterial tree from the level of the common femoral artery through posterior tibial artery with no evidence of significant stenosis involving the proximal right femoral artery. Vascular surgeon recommended continue antibiotics during his admission. He did have an elevated white blood cell count but he is chronically on steroids. No sepsis noted. He was having some diarrhea during the admission, C diff was negative. He was seen and evaluated by the wound care nurse with recommendation for, Triad and silver alginate to wound beds covered with non woven gauze and roll gauze.. Patient will go home with doxycycline for 10 days and complete 5 days of prednisone taper. Time Spent with Patient Time attestation: Total time spent providing and/or coordinating discharge services: Discharge coordination time: Greater than 30 minutes Quality: Stroke Does the patient have a stroke diagnosis?: No Physical Exam Vital Signs: Vital Signs: Last Vital Signs Temp 98.1 F 07/08/21 07:25 Pulse 78 07/08/21 08:18 Resp 18 07/08/21 07:25 BP 134/76 07/08/21 07:25 Pulse Ox 97 07/08/21 07:25 Oxygen Flow Rate 2 07/04/21 17:50 Body Mass Index 18.8 Appearing in no acute distress head is normocephalic atraumatic eyes pupils are PERRLA sclera is anicteric mouth throat mucous membranes are intact and moist neck is supple no lymphadenopathy, no JVD noted lung sounds are clear to auscultation heart regular rate rhythm, clear S1, S2 positive bowel sounds, abdomen is soft, nontender neuro patient is alert x3, no focal deficits Bilateral legs with venous ulcers, multiple scabs below the knee and bruising to his arms DS: Data Data Completed and Pending Labs on day of discharge: Laboratory Results - last 24 hr 07/07/21 20:09 Vancomycin Trough 9.8 L Preliminary micro results at discharge 07/04/21 22:10 Blood Culture - Preliminary Blood - Venous No growth after 48 hours. 07/04/21 21:51 Blood Culture - Preliminary Blood - Venous No growth after 48 hours. Discharge Plan Discharge Anticipated Discharge Date/Time: 07/08/21 09:20 Patient Disposition: Home Health Service Discharge Diagnosis: Cellulitis Vascular wound Referrals: Jorge Garcia MD [Primary Care Provider] - 1 Week Jeff Bennett MD [Physician] - 1 Week Discharge Medications: New doxycycline hyclate 100 mg tablet 100 mg PO BID Qty: 20 RF: 0 prednisone 10 mg tablet 40 mg PO DAILY 5 Days Qty: 20 RF: 0 oxycodone 5 mg tablet 5 mg PO Q8H PRN (Reason: pain) 3 Days Qty: 9 RF: 0 Continued Aspirin Child 81 mg 81 mg PO DAILY RF: 0 lisinopril [Zestril] 2.5 mg Tablet 2.5 mg PO DAILY RF: 0 metoprolol tartrate 25 mg tablet 25 mg PO DAILY RF: 0 pantoprazole 40 mg 40 mg DAILY RF: 0 isosorbide mononitrate 30 mg 30 mg PO DAILY RF: 0 Neurontin 300 mg 300 mg QID RF: 0 duloxetine 60 mg 60 mg PO DAILY RF: 0 atorvastatin 80 mg 80 mg PO DAILY RF: 0 Lasix 20 mg 20 mg PO DAILY RF: 0 Eliquis 5 mg 5 mg PO DAILY RF: 0 vit D3-folic vipa-S5-M5-B12 400 units 400 mg DAILY RF: 0 vit B1 [id number]-S1-B4-Q3-[id number]-C-FA 100 mg 100 mg DAILY RF: 0 albuterol inhaler See Rx Instructions .ROUTE .COMPLEX PRN (Reason: Shortness Of Breath Or Wheezing) RF: 0 Symbicort inhaler See Rx Instructions .ROUTE .COMPLEX RF: 0 Incruse Ellipta inhaler See Rx Instructions .ROUTE .COMPLEX RF: 0 Discharge Orders: Discharge Order (Routine); Ordered 07/08/21 Ordered By: Kim Pina Diet: advance to usual diet Activity on Discharge: As tolerated Stand Alone Forms: Patient Portal Discharge page Care Plan Goals: Improvement in leg wounds Triad and silver alginate to wound beds covered with non woven gauze and roll gauze. Health Concerns: Cellulitis Vascular wound Plan of Treatment: Continue Doxycycline as prescribed Follow up with your primary care provider as needed Follow up with vascular surgery, Dr. Bennett Assessment: See discharge summary Discharge Date/Time: 07/08/21 10:06
--- NOTE | 2021-07-08 10:03 | W.MHC.F2F ---
Service Date Service Date: 07/08/21 Encounter Date of encounter: 07/08/21 Reasons for Services Reason for snf: wound care MD Overseeing Care: Jorge Garcia Homebound: Leaving the home is medically contraindicated at this time without the asist of a device and/or another person due th the listed conditions above and below. Reason homebound: unsteady gait / fall risk and shortness of breath with minimal effort Certification: Based on the above findings, I certify that this patient is confined to the home and needs intermittent snf care, physical therapy and/or speech therapy, or continues to need occupational therapy. The patient is under my care, and I have initiated the establishment of the plan of care. The patient will be followed by a physician who will periodically review the plan of care.
--- NOTE | 2021-07-08 10:10 | MHC.CM.PN ---
PT DISCHARGING HOME W/VNA FOR WOUND CARE, PT HAS SON WHO IS LOPPER AND CAN ASSIST, VNA TBD AND PT AWARE, PT REPORTS HE WOULD USE VNA HE USED IN PAST HOWEVER DOES NOT REMEMBER, OTHERWISE PT IS OK WITH VNA THAT CAN SEE PT SOONEST, PT DOES NOT APPEAR TO HAVE ANY PRIOR VISITS ON FILE. CM TO CONTACT PT ONCE VNA IS OBTAINED, REFERRALS PLACED.
== END 2021-07-08 10:06 | disposition home health service (06) | DRG 603 ==
LOC: HO.ED 07-05 01:00 → HO.EDOVER 07-05 01:07 → HO.S3 07-05 01:48
PROVIDERS: Nurse Practitioner Acute Care; Admitting Provider Hospitalist; Emergency Provider Internal Medicine; PCP Internal Medicine; Visit Provider Internal Medicine
DX: L03.116 Cellulitis of left lower limb (principal); J96.10 Chronic respiratory failure, unspecified whether with hypoxia or hypercapnia; L97.829 Non-pressure chronic ulcer of other part of left lower leg with unspecified severity; L97.819 Non-pressure chronic ulcer of other part of right lower leg with unspecified severity; F17.210 Nicotine dependence, cigarettes, uncomplicated; I25.10 Atherosclerotic heart disease of native coronary artery without angina pectoris; K21.9 Gastro-esophageal reflux disease without esophagitis; Z71.6 Tobacco abuse counseling; Z20.822 Contact with and (suspected) exposure to COVID-19; J44.9 Chronic obstructive pulmonary disease, unspecified; I25.2 Old myocardial infarction; Z88.5 Allergy status to narcotic agent; Z88.6 Allergy status to analgesic agent; Z79.01 Long term (current) use of anticoagulants; Z79.82 Long term (current) use of aspirin; Z79.899 Other long term (current) drug therapy; Z99.81 Dependence on supplemental oxygen; I73.9 Peripheral vascular disease, unspecified
CPT/HCPCS: 0241U; 36415; 80048; 80076; 80202; 83605; 85025; 85027; 85610; 85730; 87040; 87493; 93925; 99285; J1170; J2543; J2920; J3370; Q0163

== ENCOUNTER 2023-08-15 18:53 | Emergency (ER) | payer MEDICARE, MEDICAID, SELFPAY ==
--- NOTE | ~2023-08-15 | XR_ITS ---
EXAMINATION: XR CHEST CLINICAL INFORMATION: Shortness of breath COMPARISON: None available. TECHNIQUE: Frontal view of the chest was obtained. FINDINGS: The cardiac and mediastinal contours are normal. There is evidence of emphysema. There is subsegmental atelectasis at the lung bases. The lungs are otherwise clear. No pleural effusion or pneumothorax. Plate and screws seen in the right posterior seventh through 10th ribs. There is a separate screw seen superior to the plate and screws projecting over 5-6 rib interspace / sixth rib, question representing a migrated screw. There are old right rib fractures. There is an old right distal clavicle fracture. No acute rib fracture seen. XR/XR chest 1V IMPRESSION: Emphysema. Subsegmental atelectasis at both lung bases.
--- NOTE | ~2023-08-15 | XR_ITS ---
EXAMINATION: XR SHOULDER, RIGHT CLINICAL INFORMATION: Fall COMPARISON: Chest radiograph 08/15/2023, CT scan cervical spine 08/15/2023 TECHNIQUE: 2 view of the right shoulder. FINDINGS: Severe degenerative changes are present at the shoulder joint with some superior subluxation and erosion of the undersurface of the acromion suggesting a rotator cuff tear. Marked degenerative changes with osteophytes are seen at the right AC joint as well. In the chest, there are 3 plates and screws for presumed rib fractures. There is one single loose screw above this level., Unchanged from prior. XR/XR shoulder RT min 2V IMPRESSION: Normal right shoulder.
--- NOTE | ~2023-08-15 | CT_ITS ---
EXAMINATION: CT HEAD WITHOUT CONTRAST CT CERVICAL SPINE WITHOUT CONTRAST CLINICAL INFORMATION: Fall. Neck pain. COMPARISON: None available. TECHNIQUE: Contiguous axial imaging was performed from the skull base to vertex without intravenous administration of contrast. Contiguous axial imaging was performed from the upper chest through the skull base without intravenous administration of contrast. Coronal and sagittal reformats were obtained at the acquisition workstation. This CT examination was performed using dose optimization techniques as appropriate, variously including the following: *Automated exposure control. *Adjustment of mA and/or kV according to patient size (this includes techniques or standardized protocols for targeted exams where dose is matched to indication/reason for exam; i.e. extremities or head). *Use of iterative reconstruction technique. DLP: 1071 mGy-cm FINDINGS: Head: There is no evidence of acute intracranial hemorrhage or edematous territorial infarction. Pham-white matter differentiation is preserved. Scattered and partially confluent hypoattenuation in the periventricular and deep white matter are consistent with moderate microangiopathy. Proportional prominence of the ventricles and sulcal spaces without evidence of obstructive hydrocephalus. No abnormal mass effect or midline shift. No extra-axial fluid collections. No acute soft tissue or osseous abnormalities. Moderate layering fluid within the maxillary sinuses. Mild mucosal thickening of the remaining paranasal sinuses. Mild rightward nasal septal deviation. Small bilateral mastoid effusions. Bilateral lens extractions. Cervical Spine: The atlantooccipital and atlantoaxial articulations remain well aligned. Moderate degenerative arthropathy of the atlantodental articulation. Moderate degenerative anterolisthesis of C3 on C4. Moderate degenerative retrolisthesis of C5 on C6. Mild degenerative retrolisthesis of C6 on C7. Mild degenerative anterolisthesis of C7 on T1. Mild left convex curvature of the cervical spine. No evidence of acute fracture or subluxation. The vertebral body heights are maintained. Advanced degenerative disc disease from C3-C7. Facet and uncovertebral joint arthropathy leads to osseous encroachment on the neural foramina from C2-T1. There is no prevertebral soft tissue swelling. The thyroid gland and remaining cervical soft tissues are within normal limits. Prominent centrilobular emphysema. CT/CT cervical spine wo IV con IMPRESSION: 1. No evidence of acute intracranial hemorrhage or edematous territorial infarction. 2. Moderate underlying microangiopathy and generalized cerebral volume loss. 3. No evidence of acute fracture or traumatic subluxation of the cervical spine. 4. Advanced multilevel degenerative spondyloarthropathy of the cervical spine.
[2023-08-15 19:05] VITALS: BP 127/69; PULSE 108; O2SAT 96
--- NOTE | 2023-08-15 19:13 | ED.FALL ---
HPI - Fall General Chief Complaint: Fall Stated Complaint: Follow Up Manager over walker, skin tear L arm, no LOC Time Seen by Provider: 08/15/23 19:11 Source: patient Mode of arrival: ambulatory Limitations: no limitations History of Present Illness HPI Narrative: Patient with chronic back pain frequent falls on Eliquis for DVTs usually goes to [facility] for falls was ill last week today he comes in because while walking with a walker he lost balance and fell forward complaining of pain all over per records patient goes to [facility] for similar complaints multi times no loss of consciousness no seizure hello specialty are on the left forearm no chest pain or palpitation no syncope Related Data Home Medications Medication Instructions Recorded Confirmed albuterol sulfate 90 mcg/actuation 1 puff inhalation Q6H PRN dyspnea 08/15/23 08/15/23 aerosol inhaler apixaban 5 mg tablet (Eliquis) 5 mg PO BID 08/15/23 08/15/23 atorvastatin 80 mg tablet 80 mg PO DAILY 08/15/23 08/15/23 duloxetine 60 mg capsule,delayed 120 mg PO DAILY 08/15/23 08/15/23 release furosemide 20 mg tablet 20 mg PO DAILY 08/15/23 08/15/23 levofloxacin 750 mg tablet 750 mg PO DAILY 08/15/23 08/15/23 metoprolol succinate 25 mg 25 mg PO DAILY 08/15/23 08/15/23 tablet,extended release 24 hr prednisone 5 mg tablet 5 mg PO TID 08/15/23 08/15/23 sulfamethoxazole 800 1 tab PO BID 08/15/23 08/15/23 mg-trimethoprim 160 mg tablet Allergies Allergy/AdvReac Type Severity Reaction Status Date / Time cephalexin [From Keflex] Allergy Rash Verified 08/15/23 19:22 ketorolac [From Toradol] Allergy Rash Verified 08/15/23 19:22 morphine Allergy Rash Verified 08/15/23 19:22 naproxen Allergy Rash Verified 08/15/23 19:22 metaxalone [From Skelaxin] AdvReac Headache Verified 08/15/23 19:22 Review of Systems Review of Systems: Yes all other systems are reviewed and are negative PMFSH Past Medical History Medical History DVT (deep venous thrombosis) Emphysema of lung COPD (chronic obstructive pulmonary disease) Hypertension Myocardial infarction Surgical History Hx of heart artery stent Social History Social History Household Members: Family Housing: House Do you presently have visiting nurse or other home services: Yes Alcohol intake: former Patient Tobacco Use Status: Current everyday Tobacco user Tobacco use type: Cigarette Substance Use Type: Marijuana service: No Current occupational status: disabled Physical Exam Vital Signs: Vital Signs: Last Vital Signs Temp 98.2 F 08/16/23 19:18 Pulse 90 08/16/23 19:18 Resp 16 08/16/23 19:18 BP 120/82 08/16/23 19:18 Pulse Ox 98 08/16/23 19:18 O2 Del Method Nasal Cannula 08/16/23 19:18 O2 Flow Rate 4 08/16/23 19:18 Oxygen Flow Rate 2 08/15/23 19:22 BMI result Body Mass Index 22.0 Appearance: Alert. Oriented X3. No acute distress. Eyes: PERRLA, No Nystagmus ENT: Pharynx normal. Oral Mucosa moist atraumatic normocephalic Neck: Normal inspection. Neck supple. No midline tenderness CVS: Normal heart rate and rhythm. Pulses normal. Respiratory: No respiratory distress. Equal air entry bilateral, no wheezing/rales/rhonchi Abdomen: Soft and nontender. Bowel sounds are present, no mass palpable, no CVA tenderness Skin: Skin warm and dry. Normal skin color. Normal skin turgor. Extremities: No lower extremity edema. No calf tenderness healing wound on the right shoulder superficial tear left forearm Neuro: Oriented X 3. No motor deficit. No sensory deficit.No cerebellar signs , cranial nerves II-XII intact Course Reevaluation(s) Reevaluation #1: physician observation continued. patient continued to ask for additional narcotics overnight. COLD PATCHER reviewed - multiple narcotics from multiple providers, mostly at [facility]. he is pending PT evaluation and case management consult for possible short term rehab placement given multiple falls. will continue to monitor. Time: 07:36 Reevaluation #2: Patient requesting more pain medication for right shoulder pain. He reported to nursing that he fell prior to arrival to the ED. Will get an x-ray of the right shoulder. I reviewed his prescription monitoring program which showed 77 prescriptions from 39 different providers and 8 different pharmacies utilized. This is concerning for drug-seeking behavior and I will not prescribe stronger narcotics for subjective pain. If his x-ray shows traumatic injury, I can reconsider stronger analgesia. Time: 23:50 Medications Administered Generic Name Dose Route Start Last Admin Trade Name Freq PRN Reason Stop Dose Admin Apixaban 5 mg 08/15/23 21:30 08/16/23 20:51 Apixaban 5 Mg Tablet PO 5 mg BID CON Administration Atorvastatin Calcium 80 mg 08/16/23 09:00 08/16/23 10:49 Atorvastatin Calcium 80 Mg Tablet PO 80 mg DAILY CON Administration Doxycycline Monohydrate 100 mg 08/15/23 21:30 08/16/23 20:51 Doxycycline Monohydrate 100 Mg Capsule PO 100 mg BID CON Administration Duloxetine HCl 120 mg 08/16/23 09:00 08/16/23 10:50 Duloxetine Hcl 60 Mg Capsule.Dr PO 120 mg DAILY CON Administration Furosemide 20 mg 08/16/23 09:00 08/16/23 10:49 Furosemide 20 Mg Tablet PO 20 mg DAILY CON Administration Protocol Metoprolol Succinate 25 mg 08/16/23 09:00 08/16/23 10:49 Metoprolol Succinate Er 25 Mg Tab.Er.24h PO 25 mg DAILY CON Administration Protocol Oxycodone HCl 5 mg 08/15/23 21:24 08/16/23 20:55 Oxycodone Hcl Immed Release 5 Mg Tablet PO 5 mg Q6H PRN Administration Pain, Moderate(Pain Scale 4-6) Prednisone 5 mg 08/15/23 21:30 08/16/23 20:51 Prednisone 5 Mg Tablet PO 5 mg TID CON Administration Discontinued Medications Generic Name Dose Route Start Last Admin Trade Name Freq PRN Reason Stop Dose Admin Acetaminophen 650 mg 08/15/23 21:35 08/15/23 21:41 Acetaminophen 325 Mg Tablet PO 08/15/23 21:36 650 mg ONCE ONE Administration Lorazepam 1 mg 08/15/23 21:35 08/15/23 21:41 Lorazepam 1 Mg Tablet PO 08/15/23 21:36 1 mg ONCE ONE Administration Lorazepam 1 mg 08/16/23 01:33 08/16/23 01:40 Lorazepam 1 Mg Tablet PO 09/19/23 01:34 1 mg ONCE ONE Administration Oxycodone HCl 10 mg 08/15/23 19:32 08/15/23 19:52 Oxycodone Hcl Immed Release 5 Mg Tablet PO 08/15/23 19:33 10 mg ONCE ONE Administration Oxycodone HCl 5 mg 08/16/23 01:33 08/16/23 01:40 Oxycodone Hcl Immed Release 5 Mg Tablet PO 08/16/23 01:34 5 mg ONCE ONE Administration Medical Decision Making Medical Decision Making [facility] Narrative: Patient with chronic pain asking for narcotic history reviewed been to [facility] for similar problem during stay in the ER also patient has been asking for pain medication. CT scan of the head C-spine chest x-ray was negative initially patient refused to go to rehab were nursing a now saying that he would like to go to rehab will consult case rehab placement patient is on antibiotic Levaquin and Bactrim for MRSA infection of the right shoulder will continue same for now Differential Diagnosis Differential Diagnoses: The differential diagnosis associated with the presentation includes Frequent fall/unsteady gait/SAH/ Lab Data [facility] Lab Attestation statement: I reviewed the patient's lab results. 08/16/23 10:23 08/15/23 20:28 Labs: Lab Results 08/15/23 08/16/23 Range/Units 20:28 10:23 WBC 12.7 H (4.8-10.8) X10*3/uL RBC 3.21 L (4.60-5.80) X10*6/uL Hgb 8.5 L (14.0-18.0) g/dl Hct 27.3 L (42.0-52.0) % MCV 85.0 (80.0-98.0) fL MCH 26.5 L (27.0-33.0) pg MCHC 31.1 (31.0-36.0) g/dl RDW 15.9 (11.0-16.0) % Plt Count 412 H (160-400) X10*3/uL MPV 9.5 (9.4-12.4) fL Immature Gran % (Auto) 3.6 H (0.0-0.4) % Neut % (Auto) 75.8 H (45-73) % Lymph % (Auto) 9.5 L (20-40) % [place] % (Auto) 8.6 (2-11) % Eos % (Auto) 2.0 (0-4) % Baso % (Auto) 0.5 (0-2) % Lymph # (Auto) 1.2 (1.2-4.9) X10*3/uL [place] # (Auto) 1.1 (0.1-1.2) X10*3/uL Eos # (Auto) 0.3 (0.0-0.4) X10*3/uL Baso # (Auto) 0.1 (0.0-0.2) X10*3/uL Abs Immat Gran (auto) 0.46 H (0.00-0.03) X10*3/uL Absolute Neuts (auto) 9.6 H (2.0-8.3) x10*3/uL Absolute Nucleated RBC 0.000 (0.0-0.012) X10*3/uL Nucleated RBC % (auto) 0.0 (0.0-0.2) /100WBC Sodium 140 (135-145) mmol/L Potassium 3.4 D (3.3-5.1) mmol/L Chloride 99 (96-108) mmol/L Carbon Dioxide 29 (22-29) mmol/L Anion Gap 15 (12-20) BUN 13 (9-16) mg/dL Creatinine 0.70 (0.5-1.4) mg/dL Estim Creat Clear Calc 90.5 Estimated GFR > 60 Random Glucose 112 (60-115) mg/dL Calcium 9.7 (8.4-10.2) mg/dL Total Bilirubin 0.2 (0.0-1.0) mg/dL AST 23 (5-37) U/L ALT 17 (0-40) U/L Alkaline Phosphatase 153 H (39-117) U/L Total Protein 7.6 (6.5-8.0) g/dL Albumin 3.5 (3.5-5.0) g/dL Radiology Impression Discussion of test interpretation with radiology: I have reviewed the radiologist's reading. Discharge Plan Discharge Clinical Impression: Frequent falls Patient Disposition: Still a Patient Prescriptions: No Action atorvastatin 80 mg tablet 80 mg PO DAILY prednisone 5 mg tablet 5 mg PO TID sulfamethoxazole-trimethoprim 800-160 mg tablet 1 tab PO BID furosemide 20 mg tablet 20 mg PO DAILY metoprolol succinate 25 mg tablet extended release 24 hr 25 mg PO DAILY levofloxacin 750 mg tablet 750 mg PO DAILY Rx Instructions: Once daily until 08/16/23. albuterol sulfate 90 mcg/actuation HFA aerosol inhaler 1 puff INHALATION Q6H PRN (Reason: dyspnea) duloxetine 60 mg capsule,delayed release(DR/EC) 120 mg PO DAILY Eliquis 5 mg tablet 5 mg PO BID
[2023-08-15 19:22] VITALS: BP 119/76; PULSE 97; RESP 18; TEMP 37.1; O2SAT 92; BMI 22.0
--- NOTE | 2023-08-15 19:33 | ECG_ITS ---
Test Reason : chest pain Blood Pressure : / mmHG Vent. Rate : 113 BPM Atrial Rate : 113 BPM P-R Int : 132 ms QRS Dur : 092 ms QT Int : 326 ms P-R-T Axes : 081 -62 079 degrees QTc Int : 447 ms Sinus tachycardia with Premature atrial complexes Pulmonary disease pattern Incomplete right bundle branch block Left anterior fascicular block Possible Inferior infarct , age undetermined Abnormal ECG No previous ECGs available Referred By: Ramsey Murray Electronically Signed By:FROILAN SIMPSON
[2023-08-15] MEDS: oxyCODONE HCl Immed Release 5 MG TABLET 10 MG PO (19:52)
--- NOTE | 2023-08-15 19:59 | PC.NURSE ---
pt medicated per MAR.
--- OUTSIDE RECORDS SUMMARY | 2023-08-15 20:21 | XMS_ITS | Continuity of Care Document ---
Author Name Unknown Organization [facility] ter Address [address] [place] [id number] Care Team Providers Care Credit Control Administrator Name Role Phone Jose LEE MD, Jorge Tsang Primary Care Physician [place] [facility] [place] - 05/06/[address] [id number] Discharge Disposition: A-Transfer VNA/Home Health Attending Physician: Syd Gustafson DO Admitting Physician: Zak Barillas MD Referring Physician: Not on Staff, Referring MD Allergies, Adverse Reactions, Alerts Substance Reaction Severity Status naproxen lesions on lips Active Toradol hives Active Keflex 1 rash Active Skelaxin H/O: migraine Active 1tolerates pip/tazo 11/17 Immunizations Given and Recorded Vaccine Date Status Refusal Reason tetanus/diphtheria/pertussis, acel(Tdap) 06/09/21 Given tetanus/diphtheria/pertussis, acel(Tdap) 05/30/17 Recorded tetanus/diphtheria/pertussis, acel(Tdap) 05/11/10 Given SARS-CoV-2 (COVID-19) mRNA-1273 vaccine 02/23/21 R ecorded SARS-CoV-2 (COVID-19) mRNA-1273 vaccine 01/25/21 R ecorded influenza virus vaccine, inactivated 10/27/20 Bubba rded influenza virus vaccine, inactivated 02/03/20 Bubba rded influenza virus vaccine, inactivated 07/26/18 Bubba rded influenza virus vaccine, inactivated 08/29/17 Bubba rded influenza virus vaccine, inactivated 08/17/16 Bubba rded influenza virus vaccine, inactivated 09/02/15 Bubba rded influenza virus vaccine, inactivated 08/07/14 Bubba rded influenza virus vaccine, inactivated 1 10/14/06 Gi rox pneumococcal 23-valent vaccine 08/19/19 Recorded zoster vaccine, inactivated 09/11/18 Recorded zoster vaccine, inactivated 04/05/18 Recorded Diphth-Tetanus Toxoids Adsorbed(oldterm) 06/04/07 Given Not Given Vaccine Date Status Refusal Reason influenza virus vaccine, inactivated 08/27/15 Not Given Patient Refuses pneumococcal 23-valent vaccine 08/27/15 Not Given Patient Refuses 1Admin Note: VIS GIVEN NO EGG ALLERGY Medications acetaminophen 500 mg oral tablet 2 tablet = 1,000 mg, By Mouth, 3 times a day, not to exceed 4000 mg/day, # 42 tablet, 0 Refills, Maintenance, 04/06/22 15:07:00 EDT, Tablet, Partial fill upon patient request if the prescription is for a schedule II opioid drug. Start Date: 04/06/22 Status: Ordered albuterol 0.083% inhalation solution 3 mL = 2.5 mg, Neb, Every 4 hours, PRN Wheezing/Shortness of Breath, j44.9, # 540 mL, 6 Refills, Maintenance, 07/24/20 16:44:00 EDT, [facility]/pharmacy #[id number], 182, cm, 05/26/20 16:01:00 EDT, Height, 67, kg, 07/05/20 13:57:00 EDT, Dry Weight Start Date: 07/24/20 Status: Ordered albuterol CFC free 90 mcg/inh inhalation aerosol 2, puffs, Inhalation, Every 6 hours, PRN, j44.9, # 1 each, Refills 6, Tot. Refills 6, Maintenance, 07/24/20 16:44:00 EDT, Aerosol, Route to Pharmacy Electronically, [id number], [facility]/pharmacy #[id number], 182, cm, 05/26/20 16:01:00 E... Start Date: 07/24/20 Status: Ordered aspirin 81 mg oral tablet 1 tablet = 81 mg, By Mouth, Daily, # 30 tablet, 0 Refills, Maintenance, 05/23/19 1:08:58 EDT, Tablet Start Date: 05/23/19 Status: Ordered atorvastatin 80 mg oral tablet By Mouth, Daily at supper, 0 Refills, Maintenance, 07/01/14 14:30:54, Tablet Start Date: 07/01/14 Status: Ordered Dilaudid 4 mg oral tablet 4 mg, Tablet, By Mouth, Every 4 hours, PRN for Pain , Severe, Routine, 05/06/22 2:30:00 EDT Start Date: 05/06/22 Stop Date: 05/07/22 Status: Discontinued Dilaudid 4 mg oral tablet 1 tablet = 4 mg, By Mouth, Every 4 hours, PRN Pain , Severe, # 12 tablet, 0 Refills, Acute 05/09/2223:00:00 EDT, 04/08/22 11:47:00 EDT, Tablet, Partial fill upon patient request if the prescription is for a schedule II opioid drug. Start Date: 04/08/22 Stop Date: 05/09/22 Status: Ordered doxycycline hyclate 100 mg oral capsule 1 capsule = 100 mg, By Mouth, 2 times a day, for 7 days, # 14 capsule, 0 Refills, Acute 05/11/22 13:22:00 EDT, 05/04/22 13:22:00 EDT, Capsule, [facility]/pharmacy #[id number], Partial fill upon patient request ifthe prescription is for a schedule II opioid drug.,... Start Date: 05/04/22 Stop Date: 05/11/22 Status: Ordered duloxetine 60 mg oral enteric coated capsule 1 capsule = 60 mg, By Mouth, Daily, # 30 capsule, 0 Refills, Maintenance, 07/11/19 20:20:57 EDT, ECCapsule Start Date: 07/11/19 Status: Ordered Eliquis 5 mg oral tablet 1 tablet = 5 mg, By Mouth, 2 times a day, # 60 tablet, 0 Refills, Maintenance, 07/17/21 3:50:00 EDT, Tablet, Partial fill upon patient request if the prescription is for a schedule II opioid drug. Start Date: 07/17/21 Status: Ordered ferrous sulfate 324 mg (65 mg elemental iron) oral delayed release tablet 1 tablet = 324 mg, By Mouth, Daily, 0 Refills, Maintenance, 03/25/22 20:21:00 EDT, Partial fill upon patient request if the prescription is for a schedule II opioid drug. Start Date: 03/25/22 Status: Ordered furosemide 20 mg oral tablet 20 mg, 1, tablet, By Mouth, 2 times a day, TAKE 1 TABLET BY MOUTH TWICE A DAY Start Date: 09/16/21 Status: Ordered gabapentin 300 mg oral capsule 300 mg, 1, capsule, By Mouth, 3 times a day, Refills 0, Maintenance, 04/05/22 22:53:00 EDT, Partialfill upon patient request if the prescription is for a schedule II opioid drug. Start Date: 04/05/22 Status: Ordered gabapentin 300 mg oral capsule 300 mg, Capsule, By Mouth, 05/06/22 15:00:00 EDT Start Date: 05/06/22 Stop Date: 05/06/22 Status: Completed Incruse Ellipta 62.5 mcg/inh inhalation powder 1 each, Inhalation, Every 24 hours, doses should be taken at least 24 hours apart, j44.9, # 1 each,6 Refills, Maintenance, 03/21/22 9:48:00 EDT, Powder, [facility]/pharmacy #[id number], 182, cm, 03/12/22 4:49:00EDT, Height, 56.7, kg, 03/10/22 1:24:00 EDT, Dry We... Start Date: 03/21/22 Status: Ordered isosorbide mononitrate 30 mg oral tablet, extended release = 30 mg, By Mouth, Daily in AM, 0 Refills, Maintenance, 07/01/14 14:32:15 EDT, ER Tablet Start Date: 07/01/14 Status: Ordered lidocaine 5% topical film 1 patch, Topically, Daily, PRN Pain , Mild, remove after 12 hours, # 13 each, 0 Refills, Maintenance, 04/03/22 16:44:00 EDT, Film, [facility]/pharmacy #[id number], Partial fill upon patient request if the prescription is for a schedule II opioid drug., 1 patch Top... Start Date: 04/03/22 Status: Ordered lisinopril 2.5 mg oral tablet 2.5 mg, 1, tablet, By Mouth, Daily in AM, # 30 tablet, Refills 0, Maintenance, 07/17/21 3:48:00 EDT, Partial fill upon patient request if the prescription is for a schedule II opioid drug. Start Date: 07/17/21 Status: Ordered lisinopril 5 mg oral tablet 2.5 mg, Tablet, By Mouth, 05/06/22 9:00:00 EDT Start Date: 05/06/22 Stop Date: 05/06/22 Status: Completed loperamide 2 mg oral capsule 2 mg, 1, capsule, By Mouth, Daily, PRN, # 60 capsule, Refills 0, Maintenance, for loose stool, 07/17/21 3:56:00 EDT, Partial fill upon patient request if the prescription is for a schedule II opioid drug. Start Date: 07/17/21 Status: Ordered Melatonin = 10 mg, By Mouth, Daily at bedtime, 0 Refills, Maintenance, 10/07/21 17:54:00 EST, Partial fill upon patient request if the prescription is for a schedule II opioid drug. Start Date: 10/07/21 Status: Ordered Multivitamin Daily, 0 Refills, Maintenance, 03/25/22 20:22:00 EDT, Partial fill upon patient request if the prescription is for a schedule II opioid drug. Start Date: 03/25/22 Status: Ordered pantoprazole 40 mg oral delayed release tablet 1 tablet = 40 mg, By Mouth, Daily in AM, # 30 tablet, 0 Refills, Maintenance, 10/07/21 17:39:00 EST, EC Tablet Start Date: 10/07/21 Status: Ordered predniSONE 20 mg oral tablet 2 tablet = 40 mg, By Mouth, Daily, for 3 days, Take 40mg daily INSTEAD of you daily 15mg, continue the 15mg once completed 40mg tablets, # 6 tablet, 0 Refills, Acute 05/10/22 8:00:00 EDT, 05/07/22 8:00:00 EDT, Tablet, [facility]/pharmacy #[id number], Partial fill... Start Date: 05/07/22 Stop Date: 05/10/22 Status: Ordered predniSONE 5 mg oral delayed release tablet 3 tablet = 15 mg, By Mouth, Daily, # 90 tablet, 0 Refills, Maintenance, 03/27/22 8:24:00 EDT, CR Tablet, Partial fill upon patient request if the prescription is for a schedule II opioid drug. Start Date: 03/27/22 Status: Ordered Senna-Time 8.6 mg oral tablet 10 each, TAKE 1 TABLET BY MOUTH EVERY DAY NEEDED FOR CONSTIPATION, 0 Refills, 05/05/22 21:11:00 EDT, Partial fill upon patient request if the prescription is for a schedule II opioid drug. Start Date: 05/05/22 Status: Ordered Symbicort 160mcg/4.5mcg Inhaler 2, puffs, Inhalation, 2 times a day, # 10.2 Gm, Refills 0, Maintenance, 03/08/19 9:01:22 EDT, Aerosol Start Date: 03/08/19 Status: Ordered tiZANidine 2 mg oral tablet 1 mg, 0.5, tablet, By Mouth, 3 times a day, # 30 tablet, Refills 0, Tot. Refills 0, Maintenance, 04/10/22 11:40:00 EDT, Route to Pharmacy Electronically, [facility]/pharmacy #[id number], Partial fill upon patientrequest if the prescription is for a schedule II op... Start Date: 04/10/22 Status: Ordered Toprol XL 25 mg oral tablet, extended release 25, mg, 1, tablet, By Mouth, Daily, 30, tablet, 6, 6, 03/31/07 11:15:26, Print MARTIN Number, [facility], [address] [place] [id number], [id number], Constant Indicator Start Date: 03/31/07 Stop Date: 10/27/07 Status: Ordered Toprol XL 25 mg oral tablet, extended release 25 mg, XL Tablet, By Mouth, 05/06/22 9:00:00 EDT Start Date: 05/06/22 Stop Date: 05/06/22 Status: Completed Vitamin B1 100 mg oral tablet 100 mg, 1, tablet, By Mouth, Daily, Refills 0, Maintenance, 03/25/22 20:21:00 EDT, Partial fill upon patient request if the prescription is for a schedule II opioid drug. Start Date: 03/25/22 Status: Ordered Problem List Condition Effective Dates Status Health Status Inform ant COPD exacerbation(Confirmed) Active Anemia(Confirmed) Active Anxiety(Confirmed) Active CAD - Coronary artery disease(Confirmed) 1 Active Chronic low back pain(Confirmed) Active COPD (chronic obstructive pu lmonary disease)(Confirmed) Active Smoking greater than 40 pack years(Confirmed) Active Deep vein thrombosis (DVT) o f left lower extremity(Confirmed) Active GERD (gastroesophageal reflu x disease)(Confirmed) Active Hyperlipidemia(Confirmed) Active HTN (hypertension)(Confirmed) Active Hyponatremia(Confirmed) Active Metabolic alkalosis(Confirmed) Active Multiple fractures of ribs(Confirmed) 01/06/11 Active Old [place] (myocardial infarctio n) X 3(Confirmed) Active PVD (peripheral vascular disease)(Confirmed) Active Underweight(Confirmed) Active 1Cardiac stents 1991, 1995 Results Radiology Reports * Exam Date Time Procedure Performing Provider Status 05/05/22 11:59 AM Chest 2 Views Frontal and Lat Lena Delacruz; Auth (Verified) Notes: (Chest 2 Views Frontal and Lat) Reason For Exam: Shortness of Breath, Fever;Other: RESULT: Chest 2 Views Frontal and Lat Chest 2 Views Frontal and Lat Reason: Shortness of Breath, Fever; Clinical Question(s): Pneumonia COMPARISON: 05/04/2022. FINDINGS: LINES AND TUBES: None. LUNGS AND PLEURA: Hyperexpanded and clear. No pleural effusion. No pneumothorax. HEART, MEDIASTINUM AND MAMADOU: Heart is normal in size. Normal upper mediastinal and hilar contour. BONES AND SOFT TISSUES: No acute abnormality. Post-ORIF changes right rib fractures again noted. IMPRESSION: Mild COPD changes. No acute abnormality. WSN: [id number] Ordering Physician: Magdi Forte Dictated By: Luis Ritchie MD Dictated Date/Time: 05/05/22 12:07 p Reviewed By: Luis Ritchie MD Signed By: Luis Ritchie MD Signed Date/Time: 05/05/22 12:07 pm Transcribed By: BERENICE Transcribed Date/Time: 05/05/22 12:05 pm Vital Signs Most recent to oldest [Reference Range]: 1 2 3 Weight 52.4 kg (05/05/22 10:00 PM) Oxygen Saturation [94-100 %] 97 % (05/06/22 3:42 PM) 94 % (05/06/22 7:48 AM) 92 % *L* (05/05/22 11:00 PM) Pulse Rate [55-90 bpm] 81 bpm (05/06/22 3:42 PM) 79 bpm (05/06/22 8:42 AM) 79 bpm (05/06/22 7:48 AM) Blood Pressure [90-138/55-84 mm Hg] 123/77mm Hg (05/06/22 3:42 PM) 133/86mm Hg (05/06/22 8:42 AM) 133/86mm Hg (05/06/22 8:42 AM) Respiratory Rate [16-30 br/min] 20 br/min (05/06/22 4:16 PM) 18 br/min (05/06/22 3:42 PM) 20 br/min (05/06/22 2:54 PM) Temperature [96.8-100.4 DegF] 98.6 DegF (05/06/22 3:42 PM) 98.0 DegF (05/06/22 7:48 AM) 98.3 DegF (05/05/22 11:00 PM) Liters per Minute 3 L/min (05/05/22 11:00 PM) 3 L/min (05/05/22 10:00 PM) 3 L/min (05/05/22 5:13 PM) Mode of Delivery (Oxygen) Room air (05/06/22 3:42 PM) Room air (05/06/22 7:48 AM) Nasal cannula (05/05/22 11:00 PM) Blood pressure sites Arm, left (05/06/22 3:42 PM) Arm, left (05/06/22 7:48 AM) Arm, left (05/05/22 11:00 PM) Temperature Route Oral (05/06/22 3:42 PM) Oral (05/06/22 7:48 AM) Oral (05/05/22 11:00 PM) Social History Social History Type Response Tobacco Use: 4 or less cigar ettes(less than 1/4 pack)/day in last 30 days. Interested in cessation: Yes. Type: Cigarettes. Sex
--- OUTSIDE RECORDS SUMMARY | 2023-08-15 20:21 | XMS_ITS | Continuity of Care Document ---
Author Name Unknown Organization [facility] Address [address] [place] [address]- Care Team Providers Care Windows Application Packager Name Role Phone Jorge Garcia III, MD [id number] Date(s[facility]/14/[facility] - 11/16/22 [facility] [address] [place] [id number] Discharge Disposition: A-D/C Home Attending Physician: King AMAYA(Hem/Onc), Chavez Muñoz Admitting Physician: Anais Rubio MD Referring Physician: Jorge Garcia III, MD Allergies, Adverse Reactions, Alerts Substance Reaction Severity Status naproxen Active Toradol Active Keflex Active Skelaxin Active Immunizations Given and Recorded Vaccine Date Status Refusal Reason SARS-CoV-2 (COVID-19) mRNA-1273 vaccine 01/17/22 R ecorded SARS-CoV-2 (COVID-19) mRNA-1273 vaccine 02/23/21 R ecorded SARS-CoV-2 (COVID-19) mRNA-1273 vaccine 01/25/21 R ecorded Medications acetaminophen 325 mg oral tablet 650 mg, 2, tablet, By Mouth, Every 4 hours, PRN, # 12 tablet, Refills 0, Maintenance, as needed forfever, 07/03/22 0:04:00 EDT, Partial fill upon patient request if the prescription is for a schedule II opioid drug. Start Date: 07/03/22 Status: Ordered albuterol 90 mcg/inh inhalation powder 2 puffs, Inhalation, Every 4 hours, PRN as needed, # 1 each, 0 Refills, Maintenance, 07/03/22 0:06:00 EDT, Powder, Partial fill upon patient request if the prescription is for a schedule II opioid drug. Start Date: 07/03/22 Status: Ordered apixaban 5 mg oral tablet 1 tablet = 5 mg, By Mouth, 2 times a day, # 60 tablet, 0 Refills, Maintenance, 07/05/22 13:31:00 EDT, Tablet, Partial fill upon patient request if the prescription is for a schedule II opioid drug. Start Date: 07/05/22 Status: Ordered aspirin 81 mg oral capsule 1 capsule = 81 mg, By Mouth, Daily, 0 Refills, Maintenance, 07/02/22 23:58:00 EDT, Partial fill upon patient request if the prescription is for a schedule II opioid drug. Start Date: 07/02/22 Status: Ordered atorvastatin 80 mg oral tablet 1 tablet = 80 mg, By Mouth, Daily, # 90 tablet, 0 Refills, Maintenance, 07/02/22 19:11:00 EDT, Tablet, Partial fill upon patient request if the prescription is for a schedule II opioid drug. Start Date: 07/02/22 Status: Ordered Calcium with Magnesium, Vitamins D and K oral tablet See Instructions, 1 tablet By Mouth Daily, # 30 tablet, 0 Refills, Maintenance, 07/16/22 12:59:00 EDT, Tablet, [facility]/pharmacy #[id number], Partial fill upon patient request if the prescription is for a schedule II opioid drug., 1 tablet By Mouth Daily, 172, c... Start Date: 07/16/22 Status: Ordered dicyclomine 10 mg oral capsule 1 capsule = 10 mg, By Mouth, 4 times a day, # 40 capsule, 0 Refills, Maintenance, 07/03/22 0:09:00 EDT, Capsule, Partial fill upon patient request if the prescription is for a schedule II opioid drug. Start Date: 07/03/22 Stop Date: 07/13/22 Status: Ordered Dilaudid 2 mg oral tablet 2 tablet = 4 mg, By Mouth, Every 4 hours, PRN as needed for pain, 0 Refills, Maintenance, 07/11/22 10:21:00 EDT, Tablet, Partial fill upon patient request if the prescription is for a schedule II opioid drug. Start Date: 07/11/22 Status: Ordered Duloxetine = 60 mg, By Mouth, 2 times a day, 0 Refills, Maintenance, 07/03/22 0:08:00 EDT, Partial fill upon patient request if the prescription is for a schedule II opioid drug. Start Date: 07/03/22 Status: Ordered gabapentin 300 mg oral capsule 600 mg, 2, capsule, By Mouth, 3 times a day, # 90 capsule, Refills 5, Maintenance, 07/03/22 0:02:00EDT, Partial fill upon patient request if the prescription is for a schedule II opioid drug. Start Date: 07/03/22 Status: Ordered Incruse Ellipta 62.5 mcg/inh inhalation powder USE 1 INHALATION EVERY 24 HOURS- DOSES SHOULD BE TAKEN AT LEAST 24 HOURS APART Start Date: 07/02/22 Status: Ordered isosorbide mononitrate 30 mg oral tablet, extended release 30 mg, 1, tablet, By Mouth, Daily in AM, # 30 tablet, Refills 0, Maintenance, 07/03/22 0:03:00 EDT,Partial fill upon patient request if the prescription is for a schedule II opioid drug. Start Date: 07/03/22 Status: Ordered lisinopril 2.5 mg oral tablet TAKE 1 TABLET BY MOUTH EVERY DAY Start Date: 07/02/22 Status: Ordered loperamide 2 mg oral tablet 1 tablet = 2 mg, By Mouth, Every 4 hours, PRN as needed for loose stool, not to exceed 16 mg/day, #24 tablet, 0 Refills, Maintenance, 07/11/22 10:21:00 EDT, Tablet, Partial fill upon patient requestif the prescription is for a schedule II opioid drug. Start Date: 07/11/22 Status: Ordered Metoprolol Succinate ER 25 mg oral tablet, extended release TAKE 1 TABLET BY MOUTH EVERY DAY Start Date: 07/02/22 Status: Ordered pantoprazole 40 mg oral delayed release tablet TAKE 1 TABLET BY MOUTH TWICE A DAY FOR 30 DAYS Start Date: 07/02/22 Status: Ordered Symbicort 160mcg/4.5mcg Inhaler INHALE 2 PUFFS INTO THE LUNGS TWICE A DAY Start Date: 07/02/22 Status: Ordered tiZANidine 2 mg oral tablet TAKE 1/2 TABLET BY MOUTH 3 TIMES A DAY Start Date: 07/02/22 Status: Ordered Vitamin B1 100 mg oral tablet 100 mg, 1, tablet, By Mouth, Daily, # 7 tablet, Refills 0, Maintenance, 07/03/22 0:07:00 EDT, Partial fill upon patient request if the prescription is for a schedule II opioid drug. Start Date: 07/03/22 Stop Date: 07/10/22 Status: Ordered Patient Care team information Care Team Personnel Name: Marleen Uriarte RN Position: S RN Member Role: Primary Care Nurse Name: Jorge Garcia III, MD Position: S Ambulatory (view) Member Role: PCP Address: Address: [address] [place] [address] Name: Daija Huitron RN Position: S RN Member Role: Primary Care Nurse Name: Ayah Robison RN Position: S RN Member Role: Primary Care Nurse Name: Muriel Daley RN Position: [facility] RN Supv Member Role: Primary Care Nurse Name: Grisel Mcgowan RN Position: S RN Member Role: Primary Care Nurse Name: Silas Knox RN Position: S RN Member Role: Primary Care Nurse Name: Dariana Mariee RN Position: S RN Member Role: Primary Care Nurse Name: Flor Holley Position: S RN Member Role: Primary Care Nurse Name: Rosa Elena Pope RN Position: [facility] RN Member Role: Primary Care Nurse Name: Jacobo Caceres Position: S RN Member Role: Primary Care Nurse Care Team Related Persons Name: MELINA VARMA Address: home [address] [place] [address] Name: EBENA VARMA Address: home [address] [place] [address]
--- OUTSIDE RECORDS SUMMARY | 2023-08-15 20:22 | XMS_ITS | Continuity of Care Document ---
Author Name Unknown Organization [facility] ter Address [address] [place] [id number]- Care Team Providers Care Conference Center Manager Name Role Phone Jorge Garcia III, MD Primary Care Physician [phone] Encounter [facility] Date(s): 07/11/20 - 09/12/[address] [address]- [facility] Attending Physician: Reginaldo Allison II, MD Admitting Physician: Reginaldo Allison II, MD Referring Physician: Reginaldo Allison II, MD Allergies, Adverse Reactions, Alerts Substance Reaction Severity Status naproxen lesions on lips Active morphine itch Active Toradol hives Active Keflex rash Active Skelaxin H/O: migraine Active Immunizations Given and Recorded Vaccine Date Status Refusal Reason tetanus/diphtheria/pertussis, acel(Tdap) 05/11/10 Given Diphth-Tetanus Toxoids Adsorbed(oldterm) 06/04/07 Given influenza virus vaccine, inactivated 1 10/14/06 Gi rox Not Given Vaccine Date Status Refusal Reason influenza virus vaccine, inactivated 08/27/15 Not Given Patient Refuses pneumococcal 23-valent vaccine 08/27/15 Not Given Patient Refuses 1Admin Note: VIS GIVEN NO EGG ALLERGY Medications albuterol 0.083% inhalation solution 3 mL = 2.5 mg, Neb, Every 4 hours, PRN Wheezing/Shortness of Breath, j44.9, # 540 mL, 6 Refills, Maintenance, 07/24/20 16:44:00 EDT, [id number], 182, cm, 05/26/20 16:01:00 EDT, Height, 67, kg, 07/05/20 13:57:00 EDT, Dry Weight Start Date: 07/24/20 Status: Ordered albuterol CFC free 90 mcg/inh inhalation aerosol 2, puffs, Inhalation, Every 6 hours, PRN, j44.9, # 1 each, Refills 6, Tot. Refills 6, Maintenance, 07/24/20 16:44:00 EDT, Aerosol, Route to Pharmacy Electronically, [id number], [facility] #[id number], 182, cm, 05/26/20 16:01:00 E... Start Date: 07/24/20 Status: Ordered apixaban = 5 mg, By Mouth, 2 times a day, To start after 7 days of 10 mg dose, 0 Refills, Maintenance, 05/27/19 14:17:22 EDT, Tablet Start Date: 05/27/19 Status: Ordered aspirin 81 mg oral tablet 1 tablet = 81 mg, By Mouth, Daily, # 30 tablet, 0 Refills, Maintenance, 05/23/19 1:08:58 EDT, Tablet Start Date: 05/23/19 Status: Ordered atorvastatin 80 mg oral tablet By Mouth, Daily at supper, 0 Refills, Maintenance, 07/01/14 14:30:54, Tablet Start Date: 07/01/14 Status: Ordered citalopram 20 mg oral tablet 1 tablet = 20 mg, By Mouth, Daily, 0 Refills, Maintenance Start Date: 01/14/11 Status: Ordered Compression Stockings See Instructions, # 2 pair, Refills 3, Tot. Refills 3, Maintenance, surgical, thigh high length 20-30 mm Hg; apply to LLE each morning, ok to remove at night, 08/28/15 11:02:06, Compound Start Date: 08/28/15 Status: Ordered duloxetine 60 mg oral enteric coated capsule 1 capsule = 60 mg, By Mouth, Daily, # 30 capsule, 0 Refills, Maintenance, 07/11/19 20:20:57 EDT, ECCapsule Start Date: 07/11/19 Status: Ordered Ferrous Sulfate Ferrous Sulfate, 65 mg, By Mouth, Daily, Refills 0, Maintenance, 12/26/19 9:46:00 EST, Compound Start Date: 12/26/19 Status: Ordered Furosemide = 20 mg, By Mouth, 2 times a day, 0 Refills, Maintenance, 03/05/20 9:10:00 EDT Start Date: 03/05/20 Status: Ordered gabapentin 300 mg oral capsule 300 mg, 1, capsule, By Mouth, 3 times a day, Refills 0, Maintenance, 05/17/19 5:07:28 EDT Start Date: 05/17/19 Status: Ordered Incruse Ellipta 62.5 mcg/inh inhalation powder 1 each, Inhalation, Every 24 hours, doses should be taken at least 24 hours apart, j44.9, # 1 each,6 Refills, Maintenance, 08/13/20 16:33:00 EDT, Powder, [facility]/pharmacy #[id number], 182, cm, 05/26/20 16:01:00 EDT, Height, 67, kg, 07/05/20 13:57:00 EDT, Dry W... Start Date: 08/13/20 Status: Ordered isosorbide mononitrate 30 mg oral tablet, extended release = 30 mg, By Mouth, Daily, 0 Refills, Maintenance, 07/01/14 14:32:15, ER Tablet Start Date: 07/01/14 Status: Ordered lisinopril 2.5 mg oral tablet 2.5 mg, 1, tablet, By Mouth, Daily, # 30 tablet, Refills 0, Maintenance, 09/14/19 8:14:02 EDT Start Date: 09/14/19 Status: Ordered MiraLax Powder 1 pack/packet = 17 Gm, By Mouth, Daily, 0 Refills, Maintenance, 05/27/19 14:17:49 EDT, Powder Start Date: 05/27/19 Status: Ordered Nicotine = 14 mg, Topically, Daily, 0 Refills, Maintenance, 07/17/19 11:09:39 EDT, Patch Start Date: 07/17/19 Status: Ordered nitroglycerin 0.4 mg sublingual tablet Sublingual, Every 5 minutes, PRN Chest Pain, 0 Refills, Maintenance, 07/01/14 14:31:38, Tablet Start Date: 07/01/14 Status: Ordered Pantoprazole = 40 mg, By Mouth, Daily, 0 Refills, Maintenance, 06/30/16 11:32:53 Start Date: 06/30/16 Status: Ordered predniSONE 10 mg oral tablet See Instructions, 4 tabs/d for 3d then 3 tabs/d for 3d then 2 tabs/d for 3d then 1 tab/d, # 50 tablet, 0 Refills, Maintenance, 09/05/20 17:15:00 EDT, Tablet, [id number], 182, cm, 05/26/20 16:01:00 EDT, Height, 67, kg, 07/05/20 13:57:00 EDT, DrTara. Start Date: 09/05/20 Status: Ordered predniSONE 5 mg oral tablet 3 tablet = 15 mg, By Mouth, Daily, with food or milk, j44.9, # 90 tablet, 0 Refills, Maintenance, 07/24/20 16:44:00 EDT, Tablet, [id number], 182, cm, 05/26/20 16:01:00 EDT, Height, 67, kg, 07/05/20 13:57:00 EDT, Dry Weight Start Date: 07/24/20 Status: Ordered predniSONE 5 mg oral tablet See Instructions, 4 tabs/d for 3d then 1 tab daily until next clinic appointement on August 29/2020, # 30 tablet, 0 Refills, Maintenance, 08/20/20 17:42:00 EDT, Tablet, [id number], 182, cm, 05/26/20 16:01:00 EDT, Height, 67, kg, 07/05/20 13:57... Start Date: 08/20/20 Status: Ordered predniSONE 5 mg oral tablet 1 tablet = 5 mg, By Mouth, Daily, 4 tabs daily reduce by 1 tab every 3 days (or if wheezing resolved, every 2 days), # 30 tablet, 2 Refills, Acute 11/08/20 13:57:00 EST, 05/15/20 13:55:00 EDT, [id number], 182, cm, 05/15/20 13:20:00 EDT, Height... Start Date: 05/15/20 Stop Date: 11/08/20 Status: Ordered predniSONE 5 mg oral tablet 1 tablet = 5 mg, By Mouth, Daily, 4 tabs daily reduce by 1 tab every 3 days (or if wheezing resolved, every 2 days), # 30 tablet, 2 Refills, Maintenance, 11/08/20 13:57:00 EST, [id number], 182, cm, 05/15/20 13:20:00 EDT, Height, 56.4, kg, 06/28... Start Date: 11/08/20 Status: Ordered roflumilast 500 mcg oral tablet 1 tablet = 500 mcg, By Mouth, Daily, # 30 tablet, 11 Refills, Maintenance, 05/15/20 13:53:00 EDT, [facility]/pharmacy #[id number], 182, cm, 05/15/20 13:20:00 EDT, Height, 56.4, kg, 07/11/19 18:58:00 EDT, Dry Weight Start Date: 05/15/20 Status: Ordered Senna 8.6 mg oral tablet 17.2 mg, 2, tablet, By Mouth, Daily, Refills 0, Maintenance, 05/27/19 14:17:51 EDT, Tablet Start Date: 05/27/19 Status: Ordered Symbicort 160mcg/4.5mcg Inhaler 2, puffs, Inhalation, 2 times a day, # 10.2 Gm, Refills 0, Maintenance, 03/08/19 9:01:22 EDT, Aerosol Start Date: 03/08/19 Status: Ordered thiamine 100 mg oral tablet 100 mg, 1, tablet, By Mouth, Daily, # 30 tablet, Refills 0, Maintenance, 07/12/19 11:28:26 EDT Start Date: 07/12/19 Stop Date: 08/11/19 Status: Ordered Toprol XL 25 mg oral tablet, extended release 25, mg, 1, tablet, By Mouth, Daily, 30, tablet, 6, 6, 03/31/07 11:15:26, Print MARTIN Number, [facility], [address] [place] [address], [id number], Constant Indicator Start Date: 03/31/07 Stop Date: 10/27/07 Status: Ordered Vitamin D3 400 intl units oral capsule 1 capsule = 400 International_Units, By Mouth, Daily, 0 Refills, Maintenance, 09/17/14 9:57:12 Start Date: 09/17/14 Status: Ordered Problem List Condition Effective Dates Status Health Status Inform ant Anemia(Confirmed) Active Anxiety(Confirmed) Active CAD - Coronary artery disease(Confirmed) 1 Active Chronic low back pain(Confirmed) Active COPD (chronic obstructive pu lmonary disease)(Confirmed) Active Smoking greater than 40 pack years(Confirmed) Active Deep vein thrombosis (DVT) o f left lower extremity(Confirmed) Active GERD (gastroesophageal reflu x disease)(Confirmed) Active Hyperlipidemia(Confirmed) Active HTN (hypertension)(Confirmed) Active Hyponatremia(Confirmed) Active Multiple fractures of ribs(Confirmed) 01/06/11 Active Old [place] (myocardial infarctio n) X 3(Confirmed) Active PVD (peripheral vascular disease)(Confirmed) Active 1Cardiac stents 1991, 1995 Social History Social History Type Response Tobacco Use: Former smoker.. Sex Male
--- OUTSIDE RECORDS SUMMARY | 2023-08-15 20:22 | XMS_ITS | Continuity of Care Document ---
Author Name Unknown Organization [facility] ter Address [address] [place] [id number]- Care Team Providers Care Human Services Worker Name Role Phone Jose LEE MD, Jorge Tsang Primary Care Physician [phone] Encounter [facility] [place] Date(s): 05/19/22 - 06/24/[address] [address] Attending Physician: Vinnie Hawthorne MD Admitting Physician: Vinnie Hawthorne MD Referring Physician: [facility] Allergies, Adverse Reactions, Alerts Substance Reaction Severity Status naproxen lesions on lips Active Toradol Morphine allergy Metaxalone Naproxen Cephalexin allergy hives Persistent Mild Active Keflex 1 rash Active Skelaxin H/O: migraine Active 1tolerates pip/tazo 11/17 Immunizations Given and Recorded Vaccine Date Status Refusal Reason SARS-CoV-2 (COVID-19) mRNA-1273 vaccine 01/17/22 R ecorded SARS-CoV-2 (COVID-19) mRNA-1273 vaccine 01/17/22 R ecorded SARS-CoV-2 (COVID-19) mRNA-1273 vaccine 02/23/21 R ecorded SARS-CoV-2 (COVID-19) mRNA-1273 vaccine 02/23/21 R ecorded SARS-CoV-2 (COVID-19) mRNA-1273 vaccine 01/25/21 R ecorded SARS-CoV-2 (COVID-19) mRNA-1273 vaccine 01/25/21 R ecorded tetanus/diphtheria/pertussis, acel(Tdap) 06/09/21 Given tetanus/diphtheria/pertussis, acel(Tdap) 06/09/21 Recorded tetanus/diphtheria/pertussis, acel(Tdap) 05/30/17 Recorded tetanus/diphtheria/pertussis, acel(Tdap) 05/30/17 Recorded tetanus/diphtheria/pertussis, acel(Tdap) 05/11/10 Given influenza virus vaccine, inactivated 10/27/20 Bubba rded influenza virus vaccine, inactivated 10/27/20 Bubba rded influenza virus vaccine, inactivated 02/03/20 Bubba rded influenza virus vaccine, inactivated 02/03/20 Bubba rded influenza virus vaccine, inactivated 07/26/18 Bubba rded influenza virus vaccine, inactivated 07/26/18 Bubba rded influenza virus vaccine, inactivated 08/29/17 Bubba rded influenza virus vaccine, inactivated 08/29/17 Bubba rded influenza virus vaccine, inactivated 08/17/16 Bubba rded influenza virus vaccine, inactivated 08/17/16 Bubba rded influenza virus vaccine, inactivated 09/02/15 Bubba rded influenza virus vaccine, inactivated 09/02/15 Bubba rded influenza virus vaccine, inactivated 08/07/14 Bubba rded influenza virus vaccine, inactivated 08/07/14 Bubba rded influenza virus vaccine, inactivated 1 10/14/06 Gi rox pneumococcal 23-valent vaccine 08/19/19 Recorded pneumococcal 23-valent vaccine 08/19/19 Recorded zoster vaccine, inactivated 09/11/18 Recorded zoster vaccine, inactivated 09/11/18 Recorded zoster vaccine, inactivated 04/05/18 Recorded Zoster Vaccine Live 04/05/18 Recorded Diphth-Tetanus Toxoids Adsorbed(oldterm) 06/04/07 Given Not Given Vaccine Date Status Refusal Reason influenza virus vaccine, inactivated 08/27/15 Not Given Patient Refuses pneumococcal 23-valent vaccine 08/27/15 Not Given Patient Refuses 1Admin Note: VIS GIVEN NO EGG ALLERGY Medications Albuterol (Eqv-ProAir HFA) 90 mcg/inh inhalation aerosol 2 puffs, Inhalation, Every 6 hours, PRN Wheezing/Shortness of Breath Start Date: 04/27/22 Status: Ordered aspirin 81 mg oral delayed release tablet 81 mg, 1, tablet, By Mouth, Daily, # 30 tablet, Refills 0, Maintenance, 04/27/22 20:47:00 EDT, Partial fill upon patient request if the prescription is for a schedule II opioid drug. Start Date: 04/27/22 Status: Ordered atorvastatin 80 mg oral tablet 1 tablet = 80 mg, By Mouth, Daily at bedtime, 0 Refills, Maintenance, 04/27/22 19:33:00 EDT, Tablet, Partial fill upon patient request if the prescription is for a schedule II opioid drug. Start Date: 04/27/22 Status: Ordered citalopram 20 mg oral tablet 20 mg, 1, tablet, By Mouth, Daily, # 30 tablet, Refills 0, Maintenance, 04/27/22 20:48:00 EDT, Partial fill upon patient request if the prescription is for a schedule II opioid drug. Start Date: 04/27/22 Status: Ordered dicyclomine 10 mg oral capsule 1 capsule = 10 mg, By Mouth, 3 times a day with meals and bedtime, 0 Refills, Maintenance, 04/27/2220:45:00 EDT, Partial fill upon patient request if the prescription is for a schedule II opioid drug. Start Date: 04/27/22 Status: Ordered docusate sodium 100 mg oral capsule 1 capsule = 100 mg, By Mouth, 2 times a day Start Date: 04/27/22 Status: Ordered doxycycline hyclate 100 mg oral capsule 1 capsule = 100 mg, By Mouth, Every 12 hours, for 5 days, # 10 capsule, 0 Refills, Acute 06/27/22 15:03:00 EDT, 06/22/22 15:03:00 EDT, Capsule, [facility], Partial fill upon patient request if the prescription is for a schedule II opioid... Start Date: 06/22/22 Stop Date: 06/27/22 Status: Ordered duloxetine 60 mg oral enteric coated capsule 1 capsule = 60 mg, By Mouth, 2 times a day, 0 Refills, Maintenance, 04/27/22 20:45:00 EDT, EC Capsule, Partial fill upon patient request if the prescription is for a schedule II opioid drug. Start Date: 04/27/22 Status: Ordered Eliquis 5 mg oral tablet 1 tablet = 5 mg, By Mouth, 2 times a day, # 60 tablet, 0 Refills, Maintenance, 07/17/21 3:50:00 EDT, Tablet, Partial fill upon patient request if the prescription is for a schedule II opioid drug. Start Date: 07/17/21 Status: Ordered ferrous sulfate 325 mg oral enteric coated tablet 325 mg, 1, tablet, By Mouth, Daily, # 30 tablet, Refills 0, Maintenance, 04/28/22 5:45:00 EDT, Partial fill upon patient request if the prescription is for a schedule II opioid drug. Start Date: 04/28/22 Status: Ordered furosemide 20 mg oral tablet 20 mg, 1, tablet, By Mouth, 2 times a day Start Date: 09/16/21 Status: Ordered gabapentin 300 mg oral capsule 600 mg, 2, capsule, By Mouth, 3 times a day, # 180 capsule, Refills 0, Tot. Refills 0, Maintenance,05/16/22 16:21:00 EDT, Route to Pharmacy Electronically, [facility], Partial fill upon patient request if the prescription is for a sched... Start Date: 05/16/22 Status: Ordered Incruse Ellipta 62.5 mcg/inh inhalation powder 1 puffs, Inhalation, Every 24 hours, 0 Refills, Maintenance, 04/27/22 19:33:00 EDT, Partial fill upon patient request if the prescription is for a schedule II opioid drug. Start Date: 04/27/22 Status: Ordered isosorbide dinitrate 30 mg oral tablet 1 tablet = 30 mg, By Mouth, Daily Start Date: 04/27/22 Status: Ordered lisinopril 2.5 mg oral tablet 2.5 mg, 1, tablet, By Mouth, Daily, # 30 tablet, Refills 0, Maintenance, 04/27/22 20:47:00 EDT, Partial fill upon patient request if the prescription is for a schedule II opioid drug. Start Date: 04/27/22 Status: Ordered loperamide 2 mg oral capsule 2 mg, 1, capsule, By Mouth, 4 times a day, PRN, as needed for loose stool Start Date: 04/27/22 Status: Ordered Melatonin = 10 mg, By Mouth, Daily at bedtime, PRN as needed for sleep, 0 Refills, Maintenance, 10/07/21 17:54:00 EST, Partial fill upon patient request if the prescription is for a schedule II opioid drug. Start Date: 10/07/21 Status: Ordered Metoprolol Succinate ER 25 mg oral tablet, extended release 1 tablet = 25 mg, By Mouth, Daily, # 30 tablet, 0 Refills, Maintenance, 04/27/22 19:34:00 EDT, ER Tablet, Partial fill upon patient request if the prescription is for a schedule II opioid drug. Start Date: 04/27/22 Status: Ordered Multivitamin 1 tablet, By Mouth, Daily, 0 Refills, Maintenance, 03/25/22 20:22:00 EDT, Partial fill upon patientrequest if the prescription is for a schedule II opioid drug. Start Date: 03/25/22 Status: Ordered pantoprazole 40 mg oral delayed release tablet 1 tablet = 40 mg, By Mouth, Daily Start Date: 04/27/22 Status: Ordered predniSONE 10 mg oral tablet See Instructions, 40 mg daily for 3 days and decrease 10mg every 3 days., # 30 tablet, 0 Refills, Maintenance, 06/22/22 15:01:00 EDT, [facility], Partial fill upon patient request if the prescription is for a schedule II opioid drug., 18... Start Date: 06/22/22 Status: Ordered Symbicort 160mcg/4.5mcg Inhaler 2, puffs, Inhalation, 2 times a day, # 10.2 Gm, Refills 0, Maintenance, 03/08/19 9:01:22 EDT, Aerosol Start Date: 03/08/19 Status: Ordered tiZANidine 2 mg oral tablet 1 mg, 0.5, tablet, By Mouth, 3 times a day, PRN, Spasm Start Date: 04/27/22 Status: Ordered Vitamin B1 100 mg oral [...] Multiple fractures of ribs(Confirmed) 01/06/11 Active Old [place] (myocardial infarctio n) X 3(Confirmed) Active PVD (peripheral vascular disease)(Confirmed) Active Underweight(Confirmed) Active 1Cardiac stents 1991, 1995 Social History Social History Type Response Tobacco Use: 4 or less cigar ettes(less than 1/4 pack)/day in last 30 days. Sex
--- OUTSIDE RECORDS SUMMARY | 2023-08-15 20:22 | XMS_ITS | Continuity of Care Document ---
Author Name Unknown Organization [facility] ter Address [address] [place] [id number]- Care Team Providers Care Director Of Nursing Name Role Phone Jose LEE MD, Jorge Tsang Primary Care Physician Encounter [facility] Date(s): 06/08/22 - 06/08/[address] [address]- Encounter Diagnosis COPD exacerbation(Final) - 06/08/22 Discharge Disposition: A-D/C Home Attending Physician: Leyla Cooper MD Admitting Physician: Leyla Cooper MD Referring Physician: Not on Staff, Referring MD Allergies, Adverse Reactions, Alerts Substance Reaction Severity Status Skelaxin H/O: migraine Active naproxen lesions on lips Active Toradol hives Active Keflex 1 rash Active 1tolerates pip/tazo 11/17 Immunizations Given and Recorded Vaccine Date Status Refusal Reason SARS-CoV-2 (COVID-19) mRNA-1273 vaccine 01/17/22 R ecorded SARS-CoV-2 (COVID-19) mRNA-1273 vaccine 02/23/21 R ecorded SARS-CoV-2 (COVID-19) mRNA-1273 vaccine 01/25/21 R ecorded tetanus/diphtheria/pertussis, acel(Tdap) 06/09/21 Given tetanus/diphtheria/pertussis, acel(Tdap) 05/30/17 [...] mL, 6 Refills, Maintenance, 07/24/20 16:44:00 EDT, [facility]/pharmacy #[id number], 182, cm, 05/26/20 16:01:00 EDT, Height, 67, kg, 07/05/20 13:57:00 EDT, Dry Weight Start Date: 07/24/20 Status: Ordered aspirin 81 mg oral tablet 1 tablet = 81 mg, By Mouth, Daily, # 30 tablet, 0 Refills, Maintenance, 05/23/19 1:08:58 EDT, Tablet Start Date: 05/23/19 Status: Ordered atorvastatin 80 mg oral tablet By Mouth, Daily at supper, 0 Refills, Maintenance, 07/01/14 14:30:54, Tablet Start Date: 07/01/14 Status: Ordered bacitracin topical 500 u/gm ointment 1 application, Topically, 3 times a day, for 14 days, apply to affected skin, # 15 Gm, 0 Refills, Acute 06/09/22 12:58:00 EDT, 05/26/22 12:58:00 EDT, Ointment, [facility]/pharmacy #[id number], Partial fill upon patient request if the prescription is for a schedule... Start Date: 05/26/22 Stop Date: 06/09/22 Status: Ordered Carafate 1 gm oral tablet 1 Gm, 1, tablet, By Mouth, 3 times a day before meals and bedtime, # 28 tablet, Refills 0, Tot. Refills 0, Maintenance, 06/05/22 9:51:00 EDT, Route to Pharmacy Electronically, [facility]/pharmacy #[id number], Partial fill upon patient request if the prescription i... Start Date: 06/05/22 Stop Date: 06/12/22 Status: Ordered Dilaudid 2 mg oral tablet 1 tablet = 2 mg, By Mouth, Every 6 hours, PRN as needed for pain, for 3 days, # 12 tablet, 0 Refills, Acute 06/12/22 9:00:00 EDT, 06/09/22 9:00:00 EDT, Tablet, [facility]/pharmacy #[id number], Partial fill upon patient request if the prescription is for a schedule... Start Date: 06/09/22 Stop Date: 06/12/22 Status: Ordered Dilaudid 2 mg oral tablet 2 mg, Tablet, By Mouth, Once, PRN for Pain , Moderate, Routine, 06/08/22 18:36:00 EDT Start Date: 06/08/22 Stop Date: 06/08/22 Status: Completed duloxetine 60 mg oral enteric coated capsule [...] Maintenance,05/16/22 16:21:00 EDT, Route to Pharmacy Electronically, [facility], Partial fill upon patient request if the prescription is for a sched... Start Date: 05/16/22 Status: Ordered Incruse Ellipta 62.5 mcg/inh inhalation powder 1 each, Inhalation, Every 24 hours, doses should be taken at least 24 hours apart, j44.9, # 1 each,6 Refills, Maintenance, 03/21/22 9:48:00 EDT, Powder, [facility]/pharmacy #[id number], 182, cm, 03/12/22 4:49:00EDT, Height, 56.7, [...] 0 Refills, Maintenance, 04/03/22 16:44:00 EDT, Film, [facility]/pharmacy #[id number], Partial fill upon patient request [...] opioid drug. Start Date: 07/17/21 Status: Ordered loperamide 2 mg oral capsule [...] 1 tablet = 40 mg, By Mouth, 2 times a day, # 60 tablet, 0 Refills, Maintenance, 06/01/22 9:27:00 EDT, EC Tablet, 183, cm, 06/01/22 7:31:00 EDT, Height, 63, kg, 05/29/22 1:15:00 EDT, Dry Weight Start Date: 06/01/22 Stop Date: 07/01/22 Status: Ordered predniSONE 20 mg oral tablet 2 tablet = 40 mg, By Mouth, Daily, # 6 tablet, 0 Refills, Acute 11/08/22 12:00:00 EST, 06/08/22 18:07:00 EDT, Tablet, [facility]/pharmacy #[id number], Partial fill upon patient request if the prescription is for a schedule II opioid drug., 183, cm, 06/08/22 14:23:... Start Date: 06/08/22 Stop Date: 11/08/22 Status: Ordered predniSONE 5 mg oral delayed [...] 04/10/22 11:40:00 EDT, Route to Pharmacy Electronically, [facility]/pharmacy #[id number], Partial fill upon patientrequest if the prescription is for a schedule II op... Start Date: 04/10/22 Status: Ordered Toprol XL 25 mg oral tablet, extended release 25, mg, 1, tablet, By Mouth, Daily, 30, tablet, 6, 6, 03/31/07 11:15:26, Print MARTIN Number, [facility], [address] [place] [address], [id number], Constant Indicator Start Date: 03/31/07 Stop Date: 10/27/07 Status: Ordered Vitamin B1 100 mg oral [...] Multiple fractures of ribs(Confirmed) 01/06/11 Active Old [place] (myocardial infarctio n) X 3(Confirmed) Active PVD (peripheral vascular disease)(Confirmed) Active Underweight(Confirmed) Active 1Cardiac stents 1995 Results Radiology Reports * Exam Date Time Procedure Performing Provider Status 06/08/22 11:38 AM Chest Portable Diallo Florence (Verified) Notes: (Chest Portable) Reason For Exam: Shortness of Breath RESULT: Chest Portable Examination: Portable chest performed on 06/08/2022. History: Increase shortness of breath. Findings: A frontal view of the chest is compared to a prior study dated 06/06/2022. The cardiac and mediastinal silhouettes are within normal limits. The lungs are clear. Right rib fixation hardware is present. IMPRESSION: There is no acute cardiopulmonary disease. WSN: [id number] Ordering Physician: Leyla Cooper Dictated By: Mary Bella MD Dictated Date/Time: 06/08/22 11:43 a Reviewed By: Mary Bella MD Signed By: Mary Bella MD Signed Date/Time: 06/08/22 11:43 am Transcribed By: BERENICE Transcribed Date/Time: 06/08/22 11:42 am Vital Signs Most recent to oldest [Reference Range]: 1 2 3 Height 183 cm (06/08/22 2:23 PM) 183 cm (06/08/22 10:38 AM) Oxygen Saturation [94-100 %] 98 % (06/08/22 5:55 PM) 99 % (06/08/22 2:23 PM) 96 % (06/08/22 11:48 AM) Pulse Rate [55-90 bpm] 80 bpm (06/08/22 5:55 PM) 86 bpm (06/08/22 2:23 PM) 99 bpm *H* (06/08/22 11:48 AM) Blood Pressure [90-138/55-84 mm Hg] 107/79mm Hg (06/08/22 5:55 PM) 84/62mm Hg *L* (06/08/22 2:23 PM) 104/65mm Hg (06/08/22 11:48 AM) Respiratory Rate [16-30 br/min] 18 br/min (06/08/22 6:34 PM) 31 br/min *H* (06/08/22 5:55 PM) 18 br/min (06/08/22 2:23 PM) Temperature [96.8-100.4 DegF] 98.0 DegF (06/08/22 5:55 PM) 99.1 DegF (06/08/22 10:50 AM) Liters per Minute 3 L/min (06/08/22 5:55 PM) 3 L/min (06/08/22 2:23 PM) 4 L/min (06/08/22 11:48 AM) Mode of Delivery (Oxygen) Nasal cannula (06/08/22 5:55 PM) Nasal cannula (06/08/22 2:23 PM) Nasal cannula (06/08/22 11:48 AM) Blood pressure sites Arm, left (06/08/22 5:55 PM) Arm, right (06/08/22 2:23 PM) Arm, right (06/08/22 11:48 AM) Temperature Route Oral (06/08/22 5:55 PM) Oral (06/08/22 10:50 AM) Dry Weight 61 kg (06/08/22 2:23 PM) 61 kg (06/08/22 10:38 AM) Social History Social History Type Response Tobacco Use: 4 or less cigar ettes(less than 1/4 pack)/day in last 30 days. Sex
--- OUTSIDE RECORDS SUMMARY | 2023-08-15 20:22 | XMS_ITS | Continuity of Care Document ---
Author Name Unknown Organization [facility] ter Address [address] [place] [id number]- Care Team Providers Care Medical Attendant Name Role Phone Jose LEE MD, Jorge Tsang Primary Care Physician Encounter [facility] [place] Date(s): 04/05/22 - 04/08/[address] [address]- Encounter Diagnosis Compression fracture of body of thoracic vertebra(Final) - 04/06/22 Discharge Disposition: A-Transfer SNF Attending Physician: Judi Duff MD Admitting Physician: Ana María Perez MD Referring Physician: Not on Staff, Referring MD Allergies, Adverse Reactions, Alerts Substance Reaction Severity Status Toradol hives Active Keflex 1 rash Active Skelaxin H/O: migraine Active naproxen lesions on lips Active morphine 2 itch Active 1tolerates pip/tazo 11/17: Can tolerate Hydromorphone Immunizations Given and Recorded Vaccine Date Status [...] 6 Refills, Maintenance, 07/24/20 16:44:00 EDT, [facility]/pharmacy #[id number], 182, cm, 05/26/20 16:01:00 EDT, Height, 67, kg, 07/05/20 13:57:00 EDT, Dry Weight Start Date: 07/24/20 Status: Ordered albuterol CFC free 90 mcg/inh inhalation aerosol 2, puffs, Inhalation, Every 6 hours, PRN, j44.9, # 1 each, Refills 6, Tot. Refills 6, Maintenance, 07/24/20 16:44:00 EDT, Aerosol, Route to Pharmacy Electronically, [id number], [facility]/pharmacy #[id number], 182, cm, 05/26/20 16:01:00 E... Start Date: 07/24/20 Status: Ordered aspirin 81 mg oral tablet 1 tablet = 81 mg, By Mouth, Daily, # 30 tablet, 0 Refills, Maintenance, 05/23/19 1:08:58 EDT, Tablet Start Date: 05/23/19 Status: Ordered atorvastatin 80 mg oral tablet By Mouth, Daily at supper, 0 Refills, Maintenance, 07/01/14 14:30:54, Tablet Start Date: 07/01/14 Status: Ordered Dilaudid 2 mg oral tablet 1 tablet = 2 mg, By Mouth, Every 4 hours, PRN as needed for pain, # 10 tablet, 0 Refills, Acute 04/09/22 14:56:00 EDT, 04/06/22 14:56:00 EDT, Tablet, Partial fill upon patient request if the prescription is for a schedule II opioid drug. Start Date: 04/06/22 Stop Date: 04/09/22 Status: Ordered Dilaudid 4 mg oral tablet 4 mg, Tablet, By Mouth, Every 4 hours, PRN for Pain , Moderate, Routine, 04/05/22 23:50:00 EDT Start Date: 04/05/22 Stop Date: 04/09/22 Status: Discontinued Dilaudid 4 mg oral tablet 1 tablet = 4 mg, By Mouth, Every 4 hours, PRN Pain , Severe, # 12 tablet, 0 Refills, Acute 05/09/2223:00:00 EDT, 04/08/22 11:47:00 EDT, Tablet, Partial fill upon patient request if the prescription is for a schedule II opioid drug. Start Date: 04/08/22 Stop Date: 05/09/22 Status: Ordered docusate-senna 50 mg-8.6 mg oral capsule 2 capsule, By Mouth, Daily, PRN Constipation, # 30 capsule, 0 Refills, Acute 05/05/22 14:51:00 EDT,04/06/22 14:50:00 EDT, Capsule, Partial fill upon patient request if the prescription is for a schedule II opioid drug. Start Date: 04/06/22 Stop Date: 05/05/22 Status: Ordered duloxetine 60 mg oral enteric [...] oral capsule 300 mg, Capsule, By Mouth, 04/08/22 15:00:00 EDT Start Date: 04/08/22 Stop Date: 04/08/22 Status: Completed Incruse Ellipta 62.5 mcg/inh inhalation powder 1 each, Inhalation, Every 24 hours, doses should be taken at least 24 hours apart, j44.9, # 1 each,6 Refills, Maintenance, 03/21/22 9:48:00 EDT, Powder, [facility]/pharmacy #[id number], 182, cm, 03/12/22 4:49:00EDT, Height, 56.7, [...] Refills, Maintenance, 04/03/22 16:44:00 EDT, Film, [facility]/pharmacy #[id number], Partial fill upon patient request if [...] oral tablet 2.5 mg, Tablet, By Mouth, 04/08/22 9:00:00 EDT Start Date: 04/08/22 Stop Date: 04/08/22 Status: Completed loperamide 2 mg oral capsule [...] Tablet Start Date: 10/07/21 Status: Ordered predniSONE 5 mg oral delayed release tablet 3 tablet = 15 mg, By Mouth, Daily, # 90 tablet, 0 Refills, Maintenance, 03/27/22 8:24:00 EDT, CR Tablet, Partial fill upon patient request if the prescription is for a schedule II opioid drug. Start Date: 03/27/22 Status: Ordered Symbicort 160mcg/4.5mcg Inhaler 2, puffs, Inhalation, 2 times a day, # 10.2 Gm, Refills 0, Maintenance, 03/08/19 9:01:22 EDT, Aerosol Start Date: 03/08/19 Status: Ordered tiZANidine 4 mg oral tablet 2 mg, 0.5, tablet, By Mouth, 3 times a day, # 15 tablet, Refills 0, Tot. Refills 0, Maintenance, 04/06/22 14:51:00 EDT, Do Not Route, Partial fill upon patient request if the prescription is for a schedule II opioid drug. Start Date: 04/06/22 Stop Date: 04/16/22 Status: Ordered Toprol XL 25 mg oral tablet, extended release 25, mg, 1, tablet, By Mouth, Daily, 30, tablet, 6, 6, 03/31/07 11:15:26, Print MARTIN Number, [facility], [address] [place] [id number], [id number], Constant Indicator Start Date: 03/31/07 Stop Date: 10/27/07 Status: Ordered Toprol XL 25 mg oral tablet, extended release 25 mg, XL Tablet, By Mouth, 04/08/22 9:00:00 EDT Start Date: 04/08/22 Stop Date: 04/08/22 Status: Completed Vitamin B1 100 mg oral [...] Multiple fractures of ribs(Confirmed) 01/06/11 Active Old [place] (myocardial infarctio n) X 3(Confirmed) Active PVD (peripheral vascular disease)(Confirmed) Active Underweight(Confirmed) Active 1Cardiac stents 1991, 1995 Vital Signs Most recent to oldest [Reference Range]: 1 2 3 Height 177 cm (04/08/22 1:25 PM) 177 cm (04/08/22 5:32 AM) 177 cm (04/07/22 8:36 PM) Weight 52.0 kg (04/06/22 12:25 AM) Oxygen Saturation [94-100 %] 96 % (04/08/22 1:25 PM) 97 % (04/08/22 5:32 AM) 95 % (04/07/22 8:36 PM) Pulse Rate [55-90 bpm] 80 bpm (04/08/22 1:25 PM) 78 bpm (04/08/22 10:41 AM) 67 bpm (04/08/22 5:32 AM) Body Mass Index [18.5-24.99] 16.6 *L* (04/06/22 12:25 AM) Blood Pressure [90-138/55-84 mm Hg] 99/69mm Hg (04/08/22 1:25 PM) 138/95mm Hg (04/08/22 10:41 AM) 138/95mm Hg (04/08/22 10:40 AM) Respiratory Rate [16-30 br/min] 16 br/min (04/08/22 4:04 PM) 16 br/min (04/08/22 3:17 PM) 18 br/min (04/08/22 1:25 PM) Temperature [96.8-100.4 DegF] 97.3 DegF (04/08/22 1:25 PM) 97.7 DegF (04/08/22 5:32 AM) 97.7 DegF (04/07/22 8:36 PM) Liters per Minute 4 L/min (04/08/22 1:25 PM) 3 L/min (04/08/22 5:32 AM) 3.5 L/min (04/07/22 8:36 PM) Mode of Delivery (Oxygen) Nasal cannula (04/08/22 1:25 PM) Nasal cannula (04/08/22 5:32 AM) Nasal cannula (04/07/22 8:36 PM) Blood pressure sites Arm, left (04/08/22 1:25 PM) Arm, left (04/08/22 5:32 AM) Arm, left (04/07/22 8:36 PM) Temperature Route Oral (04/08/22 1:25 PM) Oral (04/08/22 5:32 AM) Oral (04/07/22 8:36 PM) Weight Obtained Via Bed scale (04/06/22 12:25 AM) Social History Social History Type Response Tobacco Use: 4 or less cigar ettes(less than 1/4 pack)/day in last 30 days. Interested in cessation: Yes. Type: Cigarettes. Sex
--- OUTSIDE RECORDS SUMMARY | 2023-08-15 20:22 | XMS_ITS | Continuity of Care Document ---
Author Name Unknown Organization [facility] ter Address [address] [place] [id number]- Care Team Providers Care Ekg Tech Name Role Phone Jose LEE MD, Jorge Tsang Primary Care Physician Encounter [facility] Date(s): 11/02/19 - 12/12/[address] [address]- [facility] Attending Physician: Oscar Rios MD Admitting Physician: Oscar Rios MD Referring Physician: Oscar Rios MD Allergies, Adverse Reactions, Alerts Substance Reaction [...] Note: VIS GIVEN NO EGG ALLERGY Medications 6 hyacinth wraps w/ velcro 6 hyacinth wraps w/ velcro, See Instructions, # 15 each, Refills 5, Tot. Refills 5, Maintenance, use asdirected for compression on left leg DX: PVD, 09/25/15 10:12:34, Compound Start Date: 09/25/15 Status: Ordered acetaminophen 325 mg oral tablet 650 mg, By Mouth, Every 6 hours, Refills 0, Maintenance, 04/27/19 10:28:46 EDT Start Date: 04/27/19 Status: Ordered apixaban = 5 mg, By Mouth, 2 times a day, To start after 7 days of 10 mg dose, 0 Refills, Maintenance, 05/27/19 14:17:22 EDT, Tablet Start Date: 05/27/19 Status: Ordered [employer], See Instructions, # 1 box, Refills 5, Tot. Refills 5, Maintenance, apply to wound everyother day left leg wound, 09/25/15 12:16:34, Compound Start Date: 09/25/15 Status: Ordered aspirin 81 mg oral tablet 1 tablet = 81 mg, By Mouth, Daily, # 30 tablet, 0 Refills, Maintenance, 05/23/19 1:08:58 EDT, Tablet Start Date: 05/23/19 Status: Ordered atorvastatin 80 mg oral tablet By Mouth, Daily at supper, 0 Refills, Maintenance, 07/01/14 14:30:54, Tablet Start Date: 07/01/14 Status: Ordered Atrovent HFA Inhaler 2, puffs, Inhalation, Daily, Refills 0, Maintenance, 03/08/19 9:03:06 EDT, Inhaler Start Date: 03/08/19 Status: Ordered Atrovent HFA Inhaler 2, puffs, Inhalation, 2 times a day, Refills 0, Maintenance, 07/12/19 11:30:49 EDT, Inhaler Start Date: 07/12/19 Status: Ordered Azithromycin 5 Day Dose Pack 250 mg oral tablet 1 pack/packet, By Mouth, Once, # 6 tablet, 0 Refills, Soft Stop, 09/26/19 20:02:35 EDT, Tablet Start Date: 09/26/19 Status: Ordered citalopram 20 mg oral tablet 1 tablet = 20 mg, By Mouth, Daily, 0 Refills, Maintenance Start Date: 01/14/11 Status: Ordered Compression Stockings See Instructions, # 2 pair, Refills 3, Tot. Refills 3, Maintenance, surgical, thigh high length 20-30 mm Hg; apply to LLE each morning, ok to remove at night, 08/28/15 11:02:06, Compound Start Date: 08/28/15 Status: Ordered docusate sodium 100 mg oral capsule 100 mg, 1, capsule, By Mouth, 2 times a day, Refills 0, Maintenance, 04/27/19 10:28:52 EDT Start Date: 04/27/19 Status: Ordered duloxetine 60 mg oral enteric coated capsule 1 capsule = 60 mg, By Mouth, Daily, # 30 capsule, 0 Refills, Maintenance, 07/11/19 20:20:57 EDT, ECCapsule Start Date: 07/11/19 Status: Ordered Ferrous Sulfate Tablet 325 mg, By Mouth, Daily, Maintenance, 09/17/14 9:53:46 EDT Start Date: 09/17/14 Status: Ordered gabapentin 300 mg oral capsule 300 mg, 1, capsule, By Mouth, 3 times a day, Refills 0, Maintenance, 05/17/19 5:07:28 EDT Start Date: 05/17/19 Status: Ordered Gauze Pad (4 X 4) See Instructions, # 40 each, Refills 5, Tot. Refills 5, Maintenance, use daily on left leg to coverwounds DX: PVD, 09/25/15 10:11:55, Compound Start Date: 09/25/15 Status: Ordered Gauze Roll (4 ) See Instructions, # 40 each, Refills 5, Tot. Refills 5, Maintenance, use daily on left leg wounds to hold wound care dressings DX: PVD, 09/25/15 10:11:36, Compound Start Date: 09/25/15 Status: Ordered HydrOXYzine HCL Tablet See Instructions, PRN as needed for anxiety, 5 MG, 0 Refills, Maintenance, 09/14/19 8:16:22 EDT Start Date: 09/14/19 Status: Ordered Incruse Ellipta 62.5 mcg/inh inhalation powder 1 each, Inhalation, Every 24 hours, doses should be taken at least 24 hours apart, # 30 each, 11 Refills, Maintenance, 10/26/19 9:23:06 EST, Powder Start Date: 10/26/19 Status: Ordered isosorbide mononitrate 30 mg oral [...] EDT, Patch Start Date: 07/17/19 Status: Ordered nicotine 2 mg oral transmucosal lozenge = 2 mg, By Mouth, Every hour, PRN Other, Nicotine Withdrawal Symptoms (not to exceed 20 lozenges per day), 0 Refills, Maintenance, 07/17/19 11:09:37 EDT, Lozenge Start Date: 07/17/19 Status: Ordered nitroglycerin 0.4 mg sublingual tablet Sublingual, Every 5 minutes, PRN Chest Pain, 0 Refills, Maintenance, 07/01/14 14:31:38, Tablet Start Date: 07/01/14 Status: Ordered Pantoprazole = 40 mg, By Mouth, Daily, 0 Refills, Maintenance, 06/30/16 11:32:53 Start Date: 06/30/16 Status: Ordered Senna 8.6 mg oral tablet 17.2 mg, 2, tablet, By Mouth, Daily, Refills 0, Maintenance, 05/27/19 14:17:51 EDT, Tablet Start Date: 05/27/19 Status: Ordered Symbicort 160mcg/4.5mcg Inhaler 2, puffs, Inhalation, 2 times a day, # 10.2 Gm, Refills 0, Maintenance, 03/08/19 9:01:22 EDT, Aerosol Start Date: 03/08/19 Status: Ordered Tape (1 -Plastic) See Instructions, # 2 each, Refills 5, Tot. Refills 5, Maintenance, use as directed for wound care DX: PVD, 09/25/15 10:12:07, Compound Start Date: 09/25/15 Status: Ordered thiamine 100 mg oral tablet 100 mg, 1, tablet, By Mouth, Daily, # 30 tablet, Refills 0, Maintenance, 07/12/19 11:28:26 EDT Start Date: 07/12/19 Stop Date: 08/11/19 Status: Ordered Toprol XL 25 mg oral tablet, extended release 25, mg, 1, tablet, By Mouth, Daily, 30, tablet, 6, 6, 03/31/07 11:15:26, Print MARTIN Number, ADS [facility], [address] [place] [address], [id number], Constant Indicator Start Date: 03/31/07 Stop Date: 10/27/07 Status: Ordered traMADol 50 mg oral tablet 1 tablet = 50 mg, By Mouth, Every 8 hours, PRN as needed for pain, # 12 tablet, 0 Refills, Maintenance, 09/21/19 16:36:25 EDT, Tablet Start Date: 09/21/19 Status: Ordered Ultram 50 mg oral tablet 1 tablet = 50 mg, By Mouth, Every 8 hours, 0 Refills, Maintenance, 09/14/19 8:13:14 EDT Start Date: 09/14/19 Status: Ordered Ventolin 90 mcg Inhaler 2, puffs, Inhalation, Every 4 hours, PRN, Refills 0, Maintenance, 03/08/19 9:01:48 EDT, Inhaler Start Date: 03/08/19 Status: Ordered Vitamin D3 400 intl units oral capsule 1 capsule = 400 International_Units, By Mouth, Daily, 0 Refills, Maintenance, 09/17/14 9:57:12 Start Date: 09/17/14 Status: Ordered Problem List Condition Effective Dates Status Health Status Inform ant Anemia(Confirmed) Active Anxiety(Confirmed) Active CAD - Coronary artery disease(Confirmed) 1 Active Chronic low back pain(Confirmed) Active Deep vein thrombosis (DVT) o f left lower extremity(Confirmed) Active GERD (gastroesophageal reflu x disease)(Confirmed) Active History of COPD(Confirmed) Active Hyperlipidemia(Confirmed) Active HTN (hypertension)(Confirmed) Active Hyponatremia(Confirmed) Active Multiple fractures of ribs(Confirmed) 01/06/11 Active Old [place] (myocardial infarctio n) X 3(Confirmed) Active PVD (peripheral vascular disease)(Confirmed) Active Active smoker, 1/2 upto 2 pp d X >30 years(Confirmed) Active 1Cardiac stents 1995 Social History Social History Type Response Tobacco Use: 4 or less cigar ettes(less than 1/4 pack)/day in last 30 days. Sex
--- OUTSIDE RECORDS SUMMARY | 2023-08-15 20:22 | XMS_ITS | Continuity of Care Document ---
Author Name Unknown Organization [facility] Address [address] [address]- Care Team Providers Care Docketing Specialist Name Role Phone Jose LEE MD, Jorge Tsang Primary Care Phys[id number] Date(s): 04/29/21 - 06/14/21 [facility] [address] [address]- Attending Physician: Cheng Marsh MD Admitting Physician: Cheng Marsh MD Referring Physician: Jorge Garcia III, MD Allergies, Adverse Reactions, Alerts Substance Reaction Severity Status naproxen lesions on lips Active Toradol hives Active Skelaxin H/O: migraine Active morphine itch Active Keflex rash Active Immunizations Given and Recorded Vaccine Date Status Refusal Reason tetanus/diphtheria/pertussis, acel(Tdap) 06/09/21 Given tetanus/diphtheria/pertussis, acel(Tdap) 05/11/10 Given Diphth-Tetanus Toxoids Adsorbed(oldterm) [...] 16:44:00 EDT, Aerosol, Route to Pharmacy Electronically, [id number], [facility]/pharmacy #[id number], 182, cm, 05/26/20 16:01:00 E... Start [...] 11:02:06, Compound Start Date: 08/28/15 Status: Ordered Dilaudid 2 mg oral tablet 1 tablet = 2 mg, By Mouth, 3 times a day, PRN as needed for pain, # 20 tablet, 0 Refills, Maintenance, 06/10/21 12:35:00 EDT, Tablet, [facility]/pharmacy #[id number], Partial fill upon patient request if the prescription is for a schedule II opioid drug., 182, cm,... Start Date: 06/10/21 Status: Ordered duloxetine 60 mg oral enteric [...] each,6 Refills, Maintenance, 08/13/20 16:33:00 EDT, Powder, [facility]/pharmacy #[id number], 182, cm, 05/26/20 16:01:00 EDT, Height, 67, kg, 07/05/20 13:57:00 EDT, Dry W... Start Date: 08/13/20 Status: Ordered isosorbide mononitrate 30 mg oral tablet, extended release = 30 mg, By Mouth, Daily, 0 Refills, Maintenance, 07/01/14 14:32:15, ER Tablet Start Date: 07/01/14 Status: Ordered MiraLax Powder 1 pack/packet = [...] 06/30/16 11:32:53 Start Date: 06/30/16 Status: Ordered roflumilast 500 mcg oral tablet 1 tablet = 500 mcg, By Mouth, Daily, # 30 tablet, 11 Refills, Maintenance, 05/15/20 13:53:00 EDT, [id number], 182, cm, 05/15/20 13:20:00 [...] 6, 03/31/07 11:15:26, Print MARTIN Number, ADS [facility], [address] [place] [address], [id number], Constant Indicator Start Date: 03/31/07 Stop Date: [...]
--- OUTSIDE RECORDS SUMMARY | 2023-08-15 20:22 | XMS_ITS | Continuity of Care Document ---
Author Name Unknown Organization [facility] Address [address] [place] [address]- Care Team Providers Care Grinder Set Up Operator Centerless Name Role Phone Jose LEE MD, Jorge Tsang Primary Care Physician [phone] [place] [facility] [place]): [place]17[place]21 - 08/16/21 [facility] [address] [place] [address]- Attending Physician: Anabel Mendosa Admitting Physician: AdmAnabel redmond Referring Physician: Admtr, Anabel Allergies, Adverse Reactions, Alerts Substance Reaction Severity Status naproxen lesions on lips Active morphine 1 itch Active Toradol hives Active Keflex rash Active Skelaxin H/O: migraine Active : Can tolerate Hydromorphone Immunizations Given and Recorded [...] Bubba rded influenza virus vaccine, inactivated 1 11/17/06 Gi rox pneumococcal 23-valent vaccine 08/19/19 Recorded [...] mL, 6 Refills, Maintenance, 07/24/20 16:44:00 EDT, [facility]/pharmacy #[id number], 182, cm, 05/26/20 16:01:00 EDT, Height, 67, kg, 07/05/20 13:57:00 EDT, Dry Weight Start Date: 07/24/20 Status: Ordered albuterol CFC free 90 mcg/inh inhalation aerosol 2, puffs, Inhalation, Every 6 hours, PRN, j44.9, # 1 each, Refills 6, Tot. Refills 6, Maintenance, 07/24/20 16:44:00 EDT, Aerosol, Route to Pharmacy Electronically, [id number], [facility]/pharmacy #[id number], 182, cm, 05/26/20 16:01:00 E... Start Date: 07/24/20 Status: Ordered aspirin 81 mg oral tablet 1 tablet = 81 mg, By Mouth, Daily, # 30 tablet, 0 Refills, Maintenance, 05/23/19 1:08:58 EDT, Tablet Start Date: 05/23/19 Status: Ordered atorvastatin 80 mg oral tablet By Mouth, Daily at supper, 0 Refills, Maintenance, 07/01/14 14:30:54, Tablet Start Date: 07/01/14 Status: Ordered Compression Stockings See Instructions, # 2 pair, Refills 3, Tot. Refills 3, Maintenance, surgical, thigh high length 20-30 mm Hg; apply to LLE each morning, ok to remove at night, 08/28/15 11:02:06, Compound Start Date: 08/28/15 Status: Ordered dicyclomine 10 mg oral capsule 1 capsule = 10 mg, By Mouth, 4 times a day, PRN Other, abdominal pain/gas pains, 0 Refills, Maintenance, 07/17/21 3:56:00 EDT, Capsule, Partial fill upon patient request if the prescription is for a schedule II opioid drug. Start Date: 07/17/21 Status: Ordered Docusate/Senna Tablet 1 tablet, By Mouth, 2 times a day, PRN Constipation, 0 Refills, Maintenance, 07/31/21 8:53:00 EDT, Tablet, Partial fill upon patient request if the prescription is for a schedule II opioid drug. Start Date: 07/31/21 Status: Ordered duloxetine 60 mg oral enteric [...] opioid drug. Start Date: 07/17/21 Status: Ordered Furosemide = 20 mg, By [...] each,6 Refills, Maintenance, 08/13/20 16:33:00 EDT, Powder, [facility]/pharmacy #[id number], 182, cm, 05/26/20 16:01:00 [...] Daily, # 30 tablet, Refills 0, Maintenance, 07/17/21 [...] opioid drug. Start Date: 07/17/21 Status: Ordered Maalox Plus Liquid 15 mL, By Mouth, 4 times a day, PRN Dyspepsia, 0 Refills, Maintenance, 07/31/21 8:53:00 EDT, Suspension, Partial fill upon patient request if the prescription is for a schedule II opioid drug. Start Date: 07/31/21 Status: Ordered melatonin 3 mg oral tablet = 3 mg, By Mouth, Daily at bedtime, PRN Insomnia, 0 Refills, Maintenance, 07/31/21 8:54:00 EDT, Tablet, Partial fill upon patient request if the prescription is for a schedule II opioid drug. Start Date: 07/31/21 Status: Ordered MiraLax Powder 1 pack/packet = 17 Gm, By Mouth, Daily, PRN Constipation, 0 Refills, Maintenance, 07/31/21 8:54:00 EDT, Powder, Partial fill upon patient request if the prescription is for a schedule II opioid drug. Start Date: 07/31/21 Status: Ordered Pantoprazole = 40 mg, By Mouth, Daily, 0 Refills, Maintenance, 06/30/16 11:32:53 Start Date: 06/30/16 Status: Ordered Robitussin DM Liquid 10 mL, By Mouth, Every 4 hours, PRN Cough, 0 Refills, Maintenance, 07/31/21 8:53:00 EDT, Syrup, Partial fill upon patient request if the prescription is for a schedule II opioid drug. Start Date: 07/31/21 Status: Ordered simethicone 80 mg oral tablet, chewable 80 mg, Chew, 3 times a day, PRN, Refills 0, Maintenance, Gas, 07/31/21 8:54:00 EDT, Partial fill upon patient request if the prescription is for a schedule II opioid drug. Start Date: 07/31/21 Status: Ordered Symbicort 160mcg/4.5mcg Inhaler 2, puffs, [...] 03/31/07 11:15:26, Print MARTIN Number, ADS [facility]PP[facility], [address] [place] [id number], [id number], Constant Indicator Start Date: 03/31/07 Stop Date: [...] Multiple fractures of ribs(Confirmed) 01/06/11 Active Old [place] (myocardial infarctio n) X 3(Confirmed) Active PVD (peripheral vascular disease)(Confirmed) Active 1Cardiac stents 1991, 1995 Social History Social History Type Response Tobacco Use: 2 cigarettes a day . Sex
--- OUTSIDE RECORDS SUMMARY | 2023-08-15 20:22 | XMS_ITS | Continuity of Care Document ---
Author Name Unknown Organization [facility] ter Address [address] [place] [address]- Care Team Providers Care Bridge Club Manager Name Role Phone Jose LEE MD, Jorge Tsang Primary Care Physician [phone] Encounter [facility] [place] Date(s): 03/21/23 - 03/21/[address] [address]- Discharge Disposition: A-D/C AMA Attending Physician: Kelly Valiente MD Admitting Physician: Kelly Valiente MD Referring Physician: Not on Staff, Referring MD Allergies, Adverse Reactions, Alerts Substance Reaction Severity Status naproxen lesions on lips Active Toradol Morphine allergy Metaxalone Naproxen Cephalexin allergy hives Persistent Mild Active Keflex 1 rash Active Skelaxin H/O: migraine Active 1tolerates pip/tazo 11/17 Immunizations Given and Recorded Vaccine Date Status Refusal Reason [id number] 12y+ bivalent booster vax 08/23/22 Recorded SARS-CoV-2 (COVID-19) mRNA-1273 vaccine 01/17/22 R ecorded SARS-CoV-2 (COVID-19) mRNA-1273 vaccine 1 01/17/22 Recorded SARS-CoV-2 (COVID-19) mRNA-1273 vaccine 01/17/22 R ecorded SARS-CoV-2 (COVID-19) mRNA-1273 vaccine 02/23/21 R ecorded SARS-CoV-2 (COVID-19) mRNA-1273 vaccine 2 02/23/21 Recorded SARS-CoV-2 (COVID-19) mRNA-1273 vaccine 02/23/21 R ecorded SARS-CoV-2 (COVID-19) mRNA-1273 vaccine 01/25/21 R ecorded SARS-CoV-2 (COVID-19) mRNA-1273 vaccine 3 01/25/21 Recorded SARS-CoV-2 (COVID-19) mRNA-1273 vaccine 01/25/21 R ecorded [...] 08/07/14 Bubba rded influenza virus vaccine, inactivated 4 10/14/06 Gi rox pneumococcal 23-valent vaccine 08/19/19 Recorded pneumococcal 23-valent vaccine 08/19/19 Recorded zoster vaccine, inactivated 09/11/18 Recorded zoster vaccine, inactivated 09/11/18 Recorded zoster vaccine, inactivated 04/05/18 Recorded Zoster Vaccine Live 04/05/18 Recorded Diphth-Tetanus Toxoids Adsorbed(oldterm) 06/04/07 Given Not Given Vaccine Date Status Refusal Reason influenza virus vaccine, inactivated 08/27/15 Not Given Patient Refuses pneumococcal 23-valent vaccine 08/27/15 Not Given Patient Refuses 1Result Comment: duplicate 2Result Comment: duplicate 3Result Comment: duplicate 4Admin Note: VIS GIVEN NO EGG ALLERGY Medications acetaminophen 325 mg oral tablet 650 [...] opioid drug. Start Date: 07/03/22 Status: Ordered aspirin 81 mg oral capsule [...] opioid drug. Start Date: 07/02/22 Status: Ordered bisacodyl 10 mg rectal suppository 1 supp = 10 mg, Rectally, Daily, PRN for constipation, Maintenance, 10/08/22 13:14:00 EST, Suppository Start Date: 10/08/22 Status: Ordered dicyclomine 10 mg oral capsule 1 capsule = 10 mg, By Mouth, 4 times a day, 0 Refills, Maintenance, 04/27/22 20:45:00 EDT, Partial fill upon patient request if the prescription is for a schedule II opioid drug. Start Date: 04/27/22 Status: Ordered docusate sodium 100 mg oral capsule 1 capsule = 100 mg, By Mouth, Daily, PRN constipation Start Date: 04/27/22 Status: Ordered Duloxetine = 60 mg, By Mouth, 2 times a day, 0 Refills, Maintenance, 07/03/22 0:08:00 EDT, Partial fill upon patient request if the prescription is for a schedule II opioid drug. Start Date: 07/03/22 Status: Ordered gabapentin 300 mg oral capsule 600 mg, 2, capsule, By Mouth, 3 times a day, Refills 0, Maintenance, 01/21/23 10:46:00 EST, Partialfill upon patient request if the prescription is for a schedule II opioid drug. Start Date: 01/21/23 Status: Ordered hydrOXYzine hydrochloride 10 mg oral tablet 1 tablet = 10 mg, By Mouth, 3 times a day, PRN Anxiety, 0 Refills, Maintenance, 10/02/22 10:26:00 EDT, Tablet, Partial fill upon patient request if the prescription is for a schedule II opioid drug. Start Date: 10/02/22 Status: Ordered Incruse Ellipta 62.5 mcg/inh inhalation powder 1 puffs, Inhalation, Every 24 hours, 0 Refills, Maintenance, 04/27/22 19:33:00 EDT, Partial fill upon patient request if the prescription is for a schedule II opioid drug. Start Date: 04/27/22 Status: Ordered isosorbide mononitrate 30 mg oral tablet, extended release 30 mg, 1, tablet, By Mouth, Daily in AM, # 30 tablet, Refills 0, Maintenance, 07/03/22 0:03:00 EDT,Partial fill upon patient request if the prescription is for a schedule II opioid drug. Start Date: 07/03/22 Status: Ordered lidocaine 5% topical film 1 patch, Topically, Daily, PRN Pain , Mild, for 30 days, # 30 patch, 0 Refills, Acute 04/18/23 9:02:00 EDT, 03/19/23 9:02:00 EDT, Patch, [facility]/pharmacy #[id number], Partial fill upon patient request if the prescription is for a schedule II opioid drug. If not... Start Date: 03/19/23 Stop Date: 04/18/23 Status: Ordered lisinopril 2.5 mg oral tablet TAKE 1 TABLET BY MOUTH EVERY DAY Start Date: 07/02/22 Status: Ordered Melatonin = 10 mg, By [...] opioid drug. Start Date: 04/27/22 Status: Ordered midodrine 5 mg oral tablet 10 mg, 2, tablet, By Mouth, 3 times a day, Hold for SBP>110, Refills 0, Maintenance, 01/21/23 10:47:00 EST, Partial fill upon patient request if the prescription is for a schedule II opioid drug. Start Date: 01/21/23 Status: Ordered mirtazapine 15 mg oral tablet 0.5 tablet = 7.5 mg, By Mouth, Daily at bedtime, 0 Refills, Maintenance, 10/02/22 10:26:00 EDT, Tablet, Partial fill upon patient request if the prescription is for a schedule II opioid drug. Start Date: 10/02/22 Status: Ordered pantoprazole 40 mg oral delayed release tablet 1 tablet = 40 mg, By Mouth, Daily Start Date: 07/02/22 Status: Ordered predniSONE 5 mg oral tablet 3 tablet = 15 mg, By Mouth, Daily, Maintenance, 03/18/23 16:01:00 EDT, Tablet, Partial fill upon patient request if the prescription is for a schedule II opioid drug. Start Date: 03/18/23 Status: Ordered Santyl 250 u/gm ointment 1 application, Topically, Daily, left lateral leg ulcer, Maintenance, 10/08/22 13:19:00 EST, Ointment Start Date: 10/08/22 Status: Ordered Senna 8.6 mg oral tablet 8.6 mg, 1, tablet, By Mouth, Daily at bedtime, Refills 0, Maintenance, 08/01/22 16:08:00 EDT, Partial fill upon patient request if the prescription is for a schedule II opioid drug. Start Date: 08/01/22 Status: Ordered Symbicort 160mcg/4.5mcg Inhaler INHALE 2 PUFFS INTO THE LUNGS TWICE A DAY Start Date: 07/02/22 Status: Ordered Vitamin B1 100 mg oral tablet 100 mg, 1, tablet, By Mouth, Daily, Refills 0, Maintenance, 03/25/22 20:21:00 EDT, Partial fill upon patient request if the prescription is for a schedule II opioid drug. Start Date: 03/25/22 Status: Ordered Problem List Condition Confirmation Course Effective Dates Status H ealth Status Informant COPD exacerbation Confirmed Active Anemia Confirmed Active Anxiety Confirmed Active CAD - Coronary artery disease 1 Confirmed Active Chronic low back pain Confirmed Active COPD (chronic obstructive pulmonary disease) Confirmed Active Smoking greater than 40 pack years Confirmed Active Deep vein thrombosis (DVT) of left lower extremity Confirmed Active GERD (gastroesophageal reflux disease) Confirmed Active Hyperlipidemia Confirmed Active HTN (hypertension) Confirmed Active Hyponatremia Confirmed Active Metabolic alkalosis Confirmed Active Multiple fractures of ribs Confirmed 01/06/11 Active Old [place] (myocardial infarction) X 3 Confirmed Active PVD (peripheral vascular disease) Confirmed Active Underweight Confirmed Active 1Cardiac stents 1991, 1995 Results Radiology Reports * Exam Date Time Procedure Performing Provider Status 03/21/23 10:56 AM Chest 2 Views Frontal and Lat Ha , Magalie; Auth (Verified) Notes: (Chest 2 Views Frontal and Lat) Reason For Exam: Chest Pain;Other: RESULT: Chest 2 Views Frontal and Lat Chest 2 Views Frontal and Lat INDICATION/CLINICAL QUESTION: Hx of Present Illness: States two days of worsening SOB, CP and productive cough. Pt report worsening left shoulder pain to to chronic issue. : TECHNIQUE: Frontal and lateral views of the chest. COMPARISON: Most recently 03/18/2013.. FINDINGS: LINES AND TUBES: None. LUNGS AND PLEURA: The lungs are clear. No pleural effusion. No pneumothorax. HEART, MEDIASTINUM AND SIVAN: The heart is of normal size. The mediastinum and sivan are normal. BONES AND SOFT TISSUES: No acute bony abnormality. Surgically repaired 3 rib fractures on the right with intact orthopedic hardware. There is a solitary separate screw in the soft tissues posterior wall of the right chest unchanged. Multiple thoracic spine compression fractures which are better demonstrated on the CT scan to be. IMPRESSION: 1. No active pulmonary or pleural abnormality. 2. Old right rib fractures and multiple known thoracic spine compression fractures. WSN: [id number] Ordering Physician: Judi Chahal Dictated By: Giacomo España MD Dictated Date/Time: 03/21/23 11:08 a Reviewed By: Giacomo España MD Signed By: Giacomo España MD Signed Date/Time: 03/21/23 11:08 am Transcribed By: BERENICE Transcribed Date/Time: 03/21/23 11:07 am Vital Signs Most recent to oldest [Reference Range]: 1 2 Oxygen Saturation [94-100 %] 98 % (03/21/23 12:47 PM) 99 % (03/21/23 9:23 AM) Pulse Rate [55-90 bpm] 90 bpm (03/21/23 12:47 PM) 85 bpm (03/21/23:23 AM) Blood Pressure [90-138/55-84 mm Hg] 135/ 90mm Hg (03/21/23 12:47 PM) 120/72mm Hg (03/21/23 9:23 AM) Respiratory Rate [16-30 br/min] 21 br/mi n (03/21/23 12:47 PM) 20 br/min (03/21/23 9:23 AM) Temperature [96.8-100.4 DegF] 98.9 DegF (03/21/23:23 AM) Liters per Minute 2 L/min (03/21/23 12:47 PM) 2 L/min (03/21/23:23 AM) Mode of Delivery (Oxygen) Nasal cannula (03/21/23:47 PM) Nasal cannula (03/21/23:23 AM) Temperature Route Oral (03/21/23 9:23 AM) Social History Social History Type Response Tobacco Use: 4 or less cigar ettes(less than 1/4 pack)/day in last 30 days. Sex EKG study * Event Display: EKG Authored Date: Note * BHSPowerscribe , CIS S: TRANSCRIBE [employer] AMAYA, Giacomo D: VERIFY Event Display: Result: Authored Date: [id number] Chest 2 Views Frontal and Lat INDICATION/CLINICAL QUESTION: Hx of Present Illness: States two days of worsening SOB, CP and productive cough. Pt report worsening left shoulder pain to to chronic issue. : TECHNIQUE: Frontal and lateral views of the chest. COMPARISON: Most recently 03/18/2013.. FINDINGS: LINES AND TUBES: None. LUNGS AND PLEURA: The lungs are clear. No pleural effusion. No pneumothorax. HEART, MEDIASTINUM AND SIVAN: The heart is of normal size. The mediastinum and sivan are normal. BONES AND SOFT TISSUES: No acute bony abnormality. Surgically repaired 3 rib fractures on the right with intact orthopedic hardware. There is a solitary separate screw in the soft tissues posterior wall of the right chest unchanged. Multiple thoracic spine compression fractures which are better demonstrated on the CT scan to be. IMPRESSION: 1. No active pulmonary or pleural abnormality. 2. Old right rib fractures and multiple known thoracic spine compression fractures. WSN: [id number] Ordering Physician: Judi Chahal Dictated By: Giacomo España MD Dictated Date/Time: 03/21/23 11:08 a Reviewed By: Giacomo España MD Signed By: Giacomo España MD Signed Date/Time: 03/21/23 11:08 am Transcribed By: BERENICE Transcribed Date/Time: 03/21/23 11:07 am Patient Care team information Care Team Personnel Name: Glo Camarena RN Position: [facility] RN Member Role: Primary Care Nurse Name: Fatimah Bennett RN Position: [facility] RN Member Role: Primary Care Nurse Name: Mariely Hardy RN Position: [facility] RN Member Role: Primary Care Nurse Name: Marleen Uriarte RN Position: [facility] RN Member Role: Primary Care Nurse Name: Sydney Zelaya Position: [facility] PCO OFFICE STAFF Member Role: Lifetime Consulting Physician Name: Judd Barahona RN Position: [facility] RN Member Role: Primary Care Nurse Name: Mag Harry RN Position: [facility] RN Member Role: Primary Care Nurse Name: An Blount RN Position: [facility] RN Neil Member Role: Primary Care Nurse Name: Marianna Ng RN Position: [facility] RN Member Role: Primary Care Nurse Name: Avani Odell RN Position: [facility] RN Member Role: Primary Care Nurse Name: Lisbet Hickman RN Position: [facility] RN Member Role: Primary Care Nurse Name: Ruben Bello RN Position: [facility] RN Member Role: Primary Care Nurse Name: Araceli Simon RN Position: [facility] RN Member Role: Primary Care Nurse Name: Moni Dugan RN Position: [facility] RN Member Role: Primary Care Nurse Name: Jorge Garcia III, MD Position: Reference Physician Member Role: PCP Address: Address: [address] [place] [address] Name: Misty Nguyen RN Position: [facility] RN Member Role: Primary Care Nurse Name: Joyce Cobb Position: [facility] RN Member Role: Primary Care Nurse Name: Sarwat Aj RN Position: [facility] RN Member Role: Primary Care Nurse Name: Cassi Batista RN Position: [facility] RN Member Role: Primary Care Nurse Name: Yanni Holland RN Position: [facility] RN Member Role: Primary Care Nurse Name: Daija Huitron RN Position: [facility] RN Member Role: Primary Care Nurse Name: Ellis Mayfield RN Position: [facility] RN Supv Member Role: Primary Care Nurse Name: Ayah Robison RN Position: [facility] RN Member Role: Primary Care Nurse Name: Kirstin Enriquez RN Position: [facility] RN Member Role: Primary Care Nurse Name: Radha Moreno RN Position: [facility] RN Member Role: Primary Care Nurse Name: Jina Smalls RN Position: [facility] RN Member Role: Primary Care Nurse Name: Laura Clements RN Position: [facility] RN Member Role: Primary Care Nurse Name: Colette Syed RN Position: [facility] RN Member Role: Primary Care Nurse Name: Muriel Daley RN Position: [facility] RN Supv Member Role: Primary Care Nurse Name: Darlyn Alvarez RN Position: [facility] RN Member Role: Primary Care Nurse Name: Zohreh Pink RN Position: [facility] RN Member Role: Primary Care Nurse Name: Sophie Berrios RN Position: [facility] RN Member Role: Primary Care Nurse Name: Grisel Mcgowan RN Position: [facility] RN Member Role: Primary Care Nurse Name: Uyen Mitchell RN Position: [facility] RN Member Role: Primary Care Nurse Name: Nasra Smith RN Position: [facility] PCO w/OE and EZ Script Member Role: Primary Care Nurse Name: Cindy Grullon RN Position: [facility] RN Supv Member Role: Primary Care Nurse Name: Silas Knox RN Position: [facility] RN Member Role: Primary Care Nurse Name: Elham Lee RN Position[facility] RN Member Role: Primary Care Nurse Name: Dariana Mariee RN Position: [facility] RN Member Role: Primary Care Nurse Name: Ana María Cat RN Position: [facility] RN Member Role: Primary Care Nurse Name: Flor Holley Position: [facility] RN Member Role: Primary Care Nurse Name: Bret Aguirre RN Position: [facility] RN Member Role: Primary Care Nurse Name: Ghazal Moreno Position: [facility] RN Member Role: Primary Care Nurse Name: Audra Martinez RN Position: [facility] RN Member Role: Primary Care Nurse Name: Shahbaz Bobo RN Position: [facility] RN Member Role: Primary Care Nurse Name: Jennifer Yin LPN Position: [facility] RN Member Role: Primary Care Nurse Name: Alina Arce RN Position: [facility] RN Member Role: Primary Care Nurse Name: Radha Masterson RN Position: [facility] RN Member Role: Primary Care Nurse Name: Landy Villarreal RN Position: [facility] RN Member Role: Primary Care Nurse Name: Amy Larios RN Position: [facility] RN Member Role: Primary Care Nurse Name: Indira Lindsey RN Position: [facility] SN RN Member Role: Primary Care Nurse Name: Rosa Elena Pope RN Position: [facility] RN Member Role: Primary Care Nurse Name: Florentino Garcia RN Position: [facility] RN Member Role: Primary Care Nurse Name: Cristel Moreno RN Position: [facility] RN Member Role: Primary Care Nurse Name: Rosa Elena De León RN Position: [facility] Jewelry Bench Worker Member Role: Primary Care Nurse Name: Tulio Pina RN Position: [facility] RN Member Role: Primary Care Nurse Name: Maximiliano Claros RN Position: [facility] RN Member Role: Primary Care Nurse Name: Narda Barnes RN Position: [facility] ED RN W/OE and Tasks Member Role: Primary Care Nurse Name: Zoë Cisse RN Position: [facility] RN Member Role: Primary Care Nurse Name: Pat Bowers RN Position: [facility] SN RN Member Role: Primary Care Nurse Name: Ruy Salcido RN Position: [facility] RN Member Role: Primary Care Nurse Name: Tayler Cabello RN Position: [facility] RN Member Role: Primary Care Nurse Name: Hilaria Aparicio RN Position: [facility] RN Member Role: Primary Care Nurse Name: Carly Rosado RN Position: [facility] RN Supv Member Role: Primary Care Nurse Name: Taryn Rosado RN Position: [facility] RN Member Role: Primary Care Nurse Name: Sydney Rosado RN Position: [facility] RN Member Role: Primary Care Nurse Name: Uriel Dumont Position: [facility] RN Member Role: Primary Care Nurse Name: Selene Vazquez RN Position: [facility] RN Member Role: Primary Care Nurse Name: Dariana Becerra RN Position: [facility] RN Member Role: Primary Care Nurse Name: Leyla Verma LPN Position: [facility] RN Member Role: Primary Care Nurse Name: Rody Mays RN Position: [facility] RN Member Role: Primary Care Nurse Name: Marielos Mixon RN Position: [facility] RN Member Role: Primary Care Nurse Name: Radha Flores RN Position: [facility] RN Member Role: Primary Care Nurse Name: Leona Alvarez RN Position: [facility] RN Member Role: Primary Care Nurse Name: Rose Kyle RN Position: [facility] Jewelry Bench Worker Member Role: Primary Care Nurse Name: Aimee Salamanca RN Position: [facility] RN Member Role: Primary Care Nurse Name: Jacobo Caceres Position: [facility] RN Member Role: Primary Care Nurse Care Team Related Persons Name: NORIS STEVENSON Address: home [address] Name: MELINA VARMA Address: [place] [address] Name: GARRY VARMA Address: home [address] Name: BRIEN LANCASTER Address: home [address]
--- OUTSIDE RECORDS SUMMARY | 2023-08-15 20:22 | XMS_ITS | Continuity of Care Document ---
Author Name Unknown Organization [facility] ter Address [address] [place] [address]- Care Team Providers Care Keyboard Action Assembler Name Role Phone Jorge Garcia III, MD Primary Care Physician [place] [facility] [place]): [place]22 - 04/14/[address] [address]- Encounter Diagnosis Back pain(Final) - 04/14/22 COPD exacerbation(Final) - 04/14/22 Discharge Disposition: A-D/C Home Attending Physician: Suman Lezama MD Admitting Physician: Suman Lezama MD Referring Physician: Not on Staff, Referring MD Allergies, Adverse Reactions, Alerts Substance Reaction Severity Status naproxen lesions on lips Active Keflex 1 rash Active Skelaxin H/O: migraine Active morphine 2 itch Active Toradol hives Active 1tolerates pip/tazo 11/17: Can tolerate Hydromorphone [...] mL, 6 Refills, Maintenance, 07/24/20 16:44:00 EDT, [facility]/pharmacy #[id number], 182, cm, 05/26/20 16:01:00 EDT, Height, 67, kg, 07/05/20 13:57:00 EDT, Dry Weight Start Date: 07/24/20 Status: Ordered albuterol CFC free 90 mcg/inh inhalation aerosol 2, puffs, Inhalation, Every 6 hours, PRN, j44.9, # 1 each, Refills 6, Tot. Refills 6, Maintenance, 07/24/20 16:44:00 EDT, Aerosol, Route to Pharmacy Electronically, [id number], [facility]/pharmacy #[id number], 182, cm, 05/26/20 16:01:00 E... [...] oral tablet 4 mg, Tablet, By Mouth, Once, STAT, 04/14/22 18:46:00 EDT, Stop date 04/14/22 18:46:00 EDT Start Date: 04/14/22 Stop Date: 04/14/22 Status: Completed Dilaudid 4 mg oral tablet 1 tablet [...] opioid drug. Start Date: 04/05/22 Status: Ordered Incruse Ellipta 62.5 mcg/inh inhalation powder 1 each, Inhalation, Every 24 hours, doses should be taken at least 24 hours apart, j44.9, # 1 each,6 Refills, Maintenance, 03/21/22 9:48:00 EDT, Powder, [facility]/pharmacy #[id number], 182, cm, 03/12/22 4:49:00EDT, Height, [...] 0 Refills, Maintenance, 04/03/22 16:44:00 EDT, Film, [facility]/pharmacy #[id number], Partial fill upon patient request [...] opioid drug. Start Date: 03/27/22 Status: Ordered predniSONE 50 mg oral tablet 1 tablet = 50 mg, By Mouth, Daily, # 5 tablet, 0 Refills, Maintenance, 04/14/22 20:46:00 EDT, Tablet, [facility]/pharmacy #[id number], Partial fill upon patient request if the prescription is for a schedule II opioid drug., 177, cm, 04/08/22 13:25:00 EDT, Height,... Start Date: 04/14/22 Stop Date: 04/19/22 Status: Ordered Symbicort 160mcg/4.5mcg Inhaler 2, puffs, Inhalation, 2 times a day, # 10.2 Gm, Refills 0, Maintenance, 03/08/19 9:01:22 EDT, Aerosol Start Date: 03/08/19 Status: Ordered tiZANidine 2 mg oral tablet 1 mg, 0.5, tablet, By Mouth, 3 times a day, # 30 tablet, Refills 0, Tot. Refills 0, Maintenance, 04/10/22 11:40:00 EDT, Route to Pharmacy Electronically, [facility]/pharmacy #[id number], Partial fill upon patientrequest if the prescription is for a schedule II op... Start Date: 04/10/22 Status: Ordered tiZANidine 4 mg oral tablet [...] 03/31/07 11:15:26, Print MARTIN Number, [facility], [address] [place] [id number], [phone], Constant Indicator Start Date: 03/31/07 Stop Date: [...] Multiple fractures of ribs(Confirmed) 01/06/11 Active Old [place] (myocardial infarctio n) X 3(Confirmed) Active PVD (peripheral vascular disease)(Confirmed) Active Underweight(Confirmed) Active 1Cardiac stents 1991, 1995 Results Radiology Reports * Exam Date Time Procedure Performing Provider Status 04/14/22 5:37 PM Foot Min 3 Views Left Florentino Amato; Jacinto uth (Verified) Notes: (Foot Min 3 Views Left) Reason For Exam: with Pain;Trauma RESULT: Foot Min 3 Views Left Foot Min 3 Views Left, 3 views Hx of Present Illness: sob and back pain; Reason: Trauma; with Pain; Clinical Question(s): Fracture COMPARISON: None. FINDINGS: No fractures or bone lesions. No arthritic changes. Normal soft tissues. IMPRESSION: No fracture. WSN: [id number] Ordering Physician: Vik Jewell Dictated By: Kt Dejesus MD Dictated Date/Time: 04/14/22 6:05 pm Reviewed By: Kt Dejesus MD Signed By: Kt Dejesus MD Signed Date/Time: 04/14/22 6:05 pm Transcribed By: BERENICE Transcribed Date/Time: 04/14/22 6:04 pm * Exam Date Time Procedure Performing Provider Status 04/14/22 5:37 PM Chest 2 Views Frontal and Lat Florentino Amato; Luis M (Verified) Notes: (Chest 2 Views Frontal and Lat) Reason For Exam: Shortness of Breath RESULT: Chest 2 Views Frontal and Lat Chest 2 Views Frontal and Lat Hx of Present Illness: sob and back pain; Reason: Shortness of Breath; Clinical Question(s): CHF COMPARISON: None. FINDINGS: LINES AND TUBES: None. LUNGS AND PLEURA: No focal airspace opacity or volume loss. There is mild to moderate upper lobe centrilobular emphysema. Central vascular markings are mildly prominent without edema or effusions. No pneumothorax. HEART, MEDIASTINUM AND MAMADOU: Heart is normal in size. Normal upper mediastinal and hilar contour. BONES AND SOFT TISSUES: No acute abnormality. Status post ORIF multiple lower right rib fractures, unchanged. IMPRESSION: Mild pulmonary vascular congestion. Mild to moderate COPD. No pneumonia. WSN: [id number] Ordering Physician: Vik Jewell Dictated By: William Farah MD Dictated Date/Time: 04/14/22 5:48 pm Reviewed By: William Farah MD Signed By: William Farah MD Signed Date/Time: 04/14/22 5:48 pm Transcribed By: BERENICE Transcribed Date/Time: 04/14/22 5:46 pm Vital Signs Most recent to oldest [Reference Range]: 1 2 3 Oxygen Saturation [94-100 %] 98 % (04/14/22 9:18 PM) 98 % (04/14/22 7:40 PM) 100 % (04/14/22 7:15 PM) Pulse Rate [55-90 bpm] 80 bpm (04/14/22 9:18 PM) 92 bpm *H* (04/14/22 7:40 PM) 92 bpm *H* (04/14/22 5:39 PM) Blood Pressure [90-138/55-84 mm Hg] 124/88mm Hg (04/14/22 9:18 PM) 124/86mm Hg (04/14/22 7:40 PM) 142/78mm Hg *H* (04/14/22 5:39 PM) Respiratory Rate [16-30 br/min] 18 br/min (04/14/22 9:18 PM) 18 br/min (04/14/22 7:44 PM) 22 br/min (04/14/22 7:40 PM) Temperature [96.8-100.4 DegF] 97.9 DegF (04/14/22 3:31 PM) Liters per Minute 3 L/min (04/14/22 9:18 PM) 3 L/min (04/14/22 7:40 PM) 3 L/min (04/14/22 7:15 PM) Mode of Delivery (Oxygen) Nasal cannula (04/14/22 9:18 PM) Nasal cannula (04/14/22 7:40 PM) Nasal cannula (04/14/22 7:15 PM) Blood pressure sites Arm, right (04/14/22 3:31 PM) Temperature Route Oral (04/14/22 3:31 PM) Social History Social History Type Response Tobacco Use: 4 or less cigar ettes(less than 1/4 pack)/day in last 30 days. Interested in cessation: Yes. Type: Cigarettes. Sex
--- OUTSIDE RECORDS SUMMARY | 2023-08-15 20:22 | XMS_ITS | Continuity of Care Document ---
Author Name Unknown Organization [facility] Address [address] [place] [address]- Care Team Providers Care Job Compositor Name Role Phone Jorge Garcia III, MD Primary Care Physician [phone] [facility] [place] Date(s): 12/06/22 - 01/05/23 [facility] [address] [place] [id number]- Attending Physician: Admtr, Anabel Allergies, Adverse Reactions, Alerts Substance Reaction Severity Status naproxen lesions on lips Active Toradol Morphine allergy Metaxalone Naproxen Cephalexin allergy hives Persistent Mild Active Keflex 1 rash Active Skelaxin H/O: migraine Active 1tolerates pip/tazo 11/17 Immunizations Given and Recorded Vaccine Date Status Refusal Reason [id number] 12y+ bivalent booster vax 08/23/22 Recorded SARS-CoV-2 [...] opioid drug. Start Date: 07/03/22 Status: Ordered Albuterol (Eqv-ProAir HFA) 90 mcg/inh inhalation aerosol 2 puffs, Inhalation, Every 6 hours, PRN Wheezing/Shortness of Breath Start Date: 04/27/22 Status: Ordered albuterol 90 mcg/inh inhalation powder [...] opioid drug. Start Date: 07/02/22 Status: Ordered aspirin 81 mg oral delayed [...] opioid drug. Start Date: 04/27/22 Status: Ordered bisacodyl 10 mg rectal suppository 1 supp = 10 mg, Rectally, Daily, PRN for constipation, Maintenance, 10/08/22 13:14:00 EST, Suppository Start Date: 10/08/22 Status: Ordered Calcium with Magnesium, Vitamins D and K oral tablet See Instructions, 1 tablet By Mouth Daily, # 30 tablet, 0 Refills, Maintenance, 07/16/22 12:59:00 EDT, Tablet, [facility]/pharmacy #[id number], Partial fill upon [...] Date: 07/03/22 Stop Date: 07/13/22 Status: Ordered dicyclomine 10 mg oral capsule 1 capsule = 10 mg, By Mouth, 4 times a day, 0 Refills, Maintenance, 04/27/22 20:45:00 EDT, Partial fill upon patient request if the prescription is for a schedule II opioid drug. Start Date: 04/27/22 Status: Ordered Dilaudid 2 mg oral tablet 2 tablet = 4 mg, By Mouth, Every 4 hours, PRN as needed for pain, 0 Refills, Maintenance, 07/11/22 10:21:00 EDT, Tablet, Partial fill upon patient request if the prescription is for a schedule II opioid drug. Start Date: 07/11/22 Status: Ordered docusate sodium 100 mg oral capsule 1 capsule = 100 mg, By Mouth, Daily, PRN constipation Start Date: 04/27/22 Status: Ordered Duloxetine = 60 mg, By Mouth, 2 times a day, 0 Refills, Maintenance, 07/03/22 0:08:00 EDT, Partial fill upon patient request if the prescription is for a schedule II opioid drug. Start Date: 07/03/22 Status: Ordered duloxetine 60 mg oral enteric coated capsule 1 capsule = 60 mg, By Mouth, Daily, 0 Refills, Maintenance, 04/27/22 20:45:00 EDT, EC Capsule, Partial fill upon patient request if the prescription is for a schedule II opioid drug. Start Date: 04/27/22 Status: Ordered ferrous sulfate 325 mg oral enteric coated tablet 325 mg, 1, tablet, By Mouth, Daily, # 30 tablet, Refills 0, Maintenance, 04/28/22 5:45:00 EDT, Partial fill upon patient request if the prescription is for a schedule II opioid drug. Start Date: 04/28/22 Status: Ordered Fleet Enema 19 gm-7 gm rectal enema 1 each, Rectally, Once, PRN as needed for constipation, Maintenance, 10/08/22 13:15:00 EST, Enema Start Date: 10/08/22 Status: Ordered gabapentin 100 mg oral capsule 100 mg, 1, capsule, By Mouth, 2 times a day, # 14 capsule, Refills 0, Tot. Refills 0, Maintenance, 10/08/22 14:29:00 EST, Print Requisition, Partial fill upon patient request if the prescription is for a schedule II opioid drug. Start Date: 10/08/22 Stop Date: 10/15/22 Status: Ordered gabapentin 300 mg oral capsule 600 mg, 2, capsule, By Mouth, 3 times a day, # 90 capsule, Refills 5, Maintenance, 07/03/22 0:02:00EDT, Partial fill upon patient request if the prescription is for a schedule II opioid drug. Start Date: 07/03/22 Status: Ordered guaiFENesin 100 mg/5 mL oral liquid 10 mL = 200 mg, By Mouth, Every 4 hours, PRN for cough, Maintenance, 10/08/22 13:20:00 EST, Liquid Start Date: 10/08/22 Status: Ordered HYDROmorphone 2 mg oral tablet 1 tablet = 2 mg, By Mouth, 2 times a day, PRN as needed for pain, # 6 tablet, 0 Refills, Maintenance, 10/08/22 14:29:00 EST, Tablet, Partial fill upon patient request if the prescription is for a schedule II opioid drug. Start Date: 10/08/22 Stop Date: 10/11/22 Status: Ordered hydrOXYzine hydrochloride 10 mg oral tablet 1 tablet = 10 mg, By Mouth, 2 times a day, PRN Anxiety, 0 Refills, Maintenance, 10/02/22 10:26:00 EDT, Tablet, Partial fill upon patient request if the prescription is for a schedule II opioid drug. Start Date: 10/02/22 Status: Ordered Incruse Ellipta 62.5 mcg/inh inhalation powder USE 1 INHALATION EVERY 24 HOURS- DOSES SHOULD BE TAKEN AT LEAST 24 HOURS APART Start Date: 07/02/22 Status: Ordered Incruse Ellipta 62.5 mcg/inh inhalation powder 1 puffs, Inhalation, Every 24 hours, 0 Refills, Maintenance, 04/27/22 19:33:00 EDT, Partial fill upon patient request if the prescription is for a schedule II opioid drug. Start Date: 04/27/22 Status: Ordered isosorbide dinitrate 30 mg oral tablet 1 tablet = 30 mg, By Mouth, Daily Start Date: 04/27/22 Status: Ordered isosorbide mononitrate 30 mg oral tablet, extended release 30 mg, 1, tablet, By Mouth, Daily in AM, # 30 tablet, Refills 0, Maintenance, 07/03/22 0:03:00 EDT,Partial fill upon patient request if the prescription is for a schedule II opioid drug. Start Date: 07/03/22 Status: Ordered lidocaine 5% topical film 1 patch, Topically, Daily, 0 Refills, Maintenance, 10/02/22 10:34:00 EDT, Patch Start Date: 10/02/22 Status: Ordered lisinopril 2.5 mg oral tablet [...] opioid drug. Start Date: 07/11/22 Status: Ordered Melatonin = 10 mg, By Mouth, Daily at bedtime, PRN as needed for sleep, 0 Refills, Maintenance, 10/07/21 17:54:00 EST, Partial fill upon patient request if the prescription is for a schedule II opioid drug. Start Date: 10/07/21 Status: Ordered Metoprolol Succinate ER 25 mg oral tablet, extended release TAKE 1 TABLET BY MOUTH EVERY DAY Start Date: 07/02/22 Status: Ordered Metoprolol Succinate ER 25 mg oral tablet, extended release 1 tablet = 25 mg, By Mouth, Daily, # 30 tablet, 0 Refills, Maintenance, 04/27/22 19:34:00 EDT, ER Tablet, Partial fill upon patient request if the prescription is for a schedule II opioid drug. Start Date: 04/27/22 Status: Ordered mirtazapine 15 mg oral tablet 0.5 tablet = 7.5 mg, By Mouth, Daily at bedtime, 0 Refills, Maintenance, 10/02/22 10:26:00 EDT, Tablet, Partial fill upon patient request if the prescription is for a schedule II opioid drug. Start Date: 10/02/22 Status: Ordered naloxone 4 mg/0.1 mL nasal spray INSTILL 1 SPRAY INTRANASALLY NEEDED FOR SIGNS OF NARCOTIC OVERDOSE Start Date: 09/19/22 Status: Ordered nicotine 21 mg/24 hr transdermal film, extended release 1 patch, Topically, Daily, Maintenance, 10/08/22 13:18:00 EST, Patch Start Date: 10/08/22 Status: Ordered pantoprazole 40 mg oral delayed release tablet TAKE 1 TABLET BY MOUTH TWICE A DAY FOR 30 DAYS Start Date: 07/02/22 Status: Ordered pantoprazole 40 mg oral delayed release tablet 1 tablet = 40 mg, By Mouth, Daily Start Date: 04/27/22 Status: Ordered Santyl 250 u/gm ointment 1 [...] A DAY Start Date: 07/02/22 Status: Ordered Symbicort 160mcg/4.5mcg Inhaler 2, puffs, Inhalation, 2 times a day, # 10.2 Gm, Refills 0, Maintenance, 03/08/19 9:01:22 EDT, Aerosol Start Date: 03/08/19 Status: Ordered tiZANidine 2 mg oral tablet TAKE 1/2 TABLET BY MOUTH 3 TIMES A DAY Start Date: 07/02/22 Status: Ordered Tylenol 325 mg oral tablet 650 mg, 2, tablet, By Mouth, Every 8 hours, Refills 0, Maintenance, 10/02/22 10:34:00 EDT Start Date: 10/02/22 Status: Ordered Vitamin B1 100 mg oral tablet 100 mg, 1, tablet, By Mouth, Daily, # 7 tablet, Refills 0, Maintenance, 07/03/22 0:07:00 EDT, Partial fill upon patient request if the prescription is for a schedule II opioid drug. Start Date: 07/03/22 Stop Date: 07/10/22 Status: Ordered Vitamin B1 100 mg oral tablet 100 mg, 1, tablet, By Mouth, Daily, Refills 0, Maintenance, 03/25/22 20:21:00 EDT, Partial fill upon patient request if the prescription is for a schedule II opioid drug. Start Date: 03/25/22 Status: Ordered warfarin 5 mg oral tablet 1 tablet = 5 mg, By Mouth, Daily, 0 Refills, Maintenance, 10/02/22 10:25:00 EDT, Tablet, Partial fill upon patient request if the prescription is for a schedule II opioid drug. Start Date: 10/02/22 Status: Ordered Problem List Condition Confirmation Course [...] Underweight Confirmed Active 1Cardiac stents 1991, 1995 Social History Social History Type Response Tobacco Use: 4 or less cigar ettes(less than 1/4 pack)/day in last 30 days. Sex Patient Care team information Care Team Personnel Name: Radha Hsieh RN Position: S RN Member Role: Primary Care Nurse Name: Glo Camarena RN Position: S RN Member Role: Primary Care Nurse Name: Fatimah Bennett RN Position: [facility] RN Member Role: Primary Care Nurse Name: Mariely Hardy RN Position: [facility] RN Member Role: Primary Care Nurse Name: Marleen Uriarte RN Position: [facility] RN Member Role: Primary Care Nurse Name: Sydney Zelaya Position: [facility] PCO OFFICE STAFF Member Role: Lifetime Consulting Physician Name: Judd Barahona RN Position: [facility] RN Member Role: Primary Care Nurse Name: Mag Harry RN Position: [facility] RN Member Role: Primary Care Nurse Name: An Blount RN Position: [facility] RN Supv Member Role: Primary Care Nurse Name: Marianna Ng RN Position: [facility] SN RN Member Role: Primary Care Nurse Name: Avani Odell RN Position: [facility] RN Member Role: Primary Care Nurse Name: Ruben Bello RN Position: [facility] RN Member Role: Primary Care Nurse Name: Araceli Simon RN Position: [facility] RN Member Role: Primary Care Nurse Name: Jorge Garcia III, MD Position: [facility] Ambulatory (view) Member Role: PCP Address: Address: [address] [place] [address] Name: Misty Nguyen RN Position: [facility] RN Member Role: Primary Care Nurse Name: Sarwat Aj RN Position: [facility] RN Member Role: Primary Care Nurse Name: Cassi Batista RN Position: [facility] RN Member Role: Primary Care Nurse Name: Daija Huitron RN Position: [facility] RN Member Role: Primary Care Nurse Name: Ellis Mayfield RN Position: [facility] RN Supv Member Role: Primary Care Nurse Name: Ayah Robison RN Position: [facility] RN Member Role: Primary Care Nurse Name: Kirstin Enriquez RN Position: [facility] RN Member Role: Primary Care Nurse Name: Jina Smalls RN Position: [facility] RN Member Role: Primary Care Nurse Name: Laura Clements RN Position: [facility] RN Member Role: Primary Care Nurse Name: Colette Syed RN Position: [facility] RN Member Role: Primary Care Nurse Name: Muriel Daley RN Position: [facility] RN Supv Member Role: Primary Care Nurse Name: Darlyn Alvarez RN Position: [facility] RN Member Role: Primary Care Nurse Name: Maribell Mejias RN Position: [facility] RN Member Role: Primary Care Nurse Name: Rachna Renteria RN Position: [facility] RN Member Role: Primary Care Nurse Name: Zohreh Pink RN Position: [facility] RN Member Role: Primary Care Nurse Name: Sophie Berrios RN Position: [facility] RN Member Role: Primary Care Nurse Name: Grisel Mcgowan RN Position: [facility] RN Member Role: Primary Care Nurse Name: Nasra Smith RN Position: [facility] RN Member Role: Primary Care Nurse Name: Cindy Grullon RN Position: [facility] RN Supv Member Role: Primary Care Nurse Name: Silas Knox RN Position: [facility] RN Member Role: Primary Care Nurse Name: Elham Lee RN Position: [facility] PCO RN Member Role: Primary Care Nurse Name: Dariana Mariee RN Position: [facility] RN Member Role: Primary Care Nurse Name: Ana María Cat RN Position: [facility] RN Member Role: Primary Care Nurse Name: Flor Holley Position: [facility] RN Member Role: Primary Care Nurse Name: Bret Aguirre RN Position: [facility] RN Member Role: Primary Care Nurse Name: Ghazal Moreno Position: [facility] RN Member Role: Primary Care Nurse Name: Audra Martinez RN Position: [facility] RN Member Role: Primary Care Nurse Name: Shahbaz Bobo RN Position: [facility] RN Member Role: Primary Care Nurse Name: Jennifer Yin LPN Position: [facility] RN Member Role: Primary Care Nurse Name: Alina Arce RN Position: [facility] RN Member Role: Primary Care Nurse Name: Marcelo Schneider RN Position: [facility] ED RN W/OE and Tasks Member Role: Primary Care Nurse Name: Radha Masterson RN Position: [facility] RN Member Role: Primary Care Nurse Name: Amy Larios RN Position: [facility] RN Member Role: Primary Care Nurse Name: Indira Lindsey RN Position: [facility] SN RN Member Role: Primary Care Nurse Name: Rosa Elena Pope RN Position: [facility] RN Member Role: Primary Care Nurse Name: Florentino Garcia RN Position: [facility] RN Member Role: Primary Care Nurse Name: Cristel Moreno RN Position: [facility] SN RN Member Role: Primary Care Nurse Name: Rosa Elena De León RN Position: [facility] Hospital Occupational Therapist Home Based Member Role: Primary Care Nurse Name: Tulio Pina RN Position: [facility] RN Member Role: Primary Care Nurse Name: Maximiliano Claros RN Position: [facility] RN Member Role: Primary Care Nurse Name: Narda Barnes RN Position: [facility] RN Member Role: Primary Care Nurse Name: Zoë Cisse RN Position: [facility] RN Member Role: Primary Care Nurse Name: Pat Bowers RN Position: [facility] SN RN Member Role: Primary Care Nurse Name: Ruy Salcido RN Position: [facility] RN Member Role: Primary Care Nurse Name: Tayler Cabello RN Position: [facility] RN Member Role: Primary Care Nurse Name: Hilaria Aparicio RN Position: [facility] RN Member Role: Primary Care Nurse Name: Carly Rosado RN Position: [facility] RN Supv Member Role: Primary Care Nurse Name: Sydney Rosado RN Position: [facility] RN Member Role: Primary Care Nurse Name: Fidencio Camarena RN Position: [facility] RN Member Role: Primary Care Nurse Name: Uriel Dumont Position: [facility] RN Member Role: Primary Care Nurse Name: Selene Vazquez RN Position: [facility] RN Member Role: Primary Care Nurse Name: Dariana Becerra RN Position: [facility] RN Member Role: Primary Care Nurse Name: Leyla Verma LPN Position: [facility] RN Member Role: Primary Care Nurse Name: Rody Mays RN Position: [facility] RN Member Role: Primary Care Nurse Name: Marielos Mixon RN Position: [facility] RN Member Role: Primary Care Nurse Name: Radha Flores RN Position: [facility] RN Member Role: Primary Care Nurse Name: Rose Kyle RN Position: [facility] Occupational Therapist Home Based Member Role: Primary Care Nurse Name: Aimee Salamanca Position: [facility] RN Member Role: Primary Care Nurse Name: Jacobo Caceres Position: [facility] RN Member Role: Primary Care Nurse Care Team Related Persons Name: STEVENSON HAMM Address: home [address] [place] [id number] Name: MELINA VARMA Address: [place] [address] Name: GARRY VARMA Address: home [address] [address] Name: BRIEN LANCASTER Address: home [address] [address]
--- OUTSIDE RECORDS SUMMARY | 2023-08-15 20:22 | XMS_ITS | Continuity of Care Document ---
Author Name Unknown Organization [facility] ter Address [address] [place] [id number]- Care Team Providers [employer] Name Role Phone Jose LEE MD, Jorge Tsang Primary Care Physician Encounter [facility] Date(s): 07/06/22 - 07/10/[address] [address]- Encounter Diagnosis Chronic obstructive pulmonary disease (COPD)(Final) - 07/07/22 Discharge Disposition: A-D/C Home Attending Physician: Kris Matt MD Admitting Physician: Navneet Lynn MD Referring Physician: Not on Staff, Referring [...] Bubba rded influenza virus vaccine, inactivated 08/07/14 Bbuba rded influenza virus vaccine, inactivated 08/07/14 Bubba [...] opioid drug. Start Date: 04/27/22 Status: Ordered Ativan 0.5 mg oral tablet 1 tablet = 0.5 mg, By Mouth, 3 times a day, PRN Anxiety, # 9 tablet, 0 Refills, Maintenance, 07/10/22 15:05:00 EDT, Tablet, [facility]/pharmacy #[id number], Partial fill upon patient request if the prescription is for a schedule II opioid drug., 182, cm, 07/09/22... Start Date: 07/10/22 Status: Ordered atorvastatin 80 mg oral tablet [...] Status: Ordered Dilaudid 2 mg oral tablet 3 mg, Tablet, By Mouth, Every 4 hours, PRN for Pain , Severe, Routine, 07/07/22 12:51:00 EDT Start Date: 07/07/22 Stop Date: 07/11/22 Status: Discontinued docusate sodium 100 mg oral capsule 1 capsule = 100 mg, By Mouth, 2 times a day Start Date: 04/27/22 Status: Ordered doxycycline hyclate 100 mg oral tablet = 100 mg, By Mouth, Every 12 hours, take tonight (07/10) and then complete course tomorrow may takewith food to minimize abdominal discomfort, # 3 tablet, 0 Refills, Acute 07/11/22 22:00:00 EDT, 07/10/22 15:06:00 EDT, Tablet, [facility]/pharmacy #[id number], [place]... Start Date: 07/10/22 Stop Date: 07/11/22 Status: Ordered duloxetine 60 mg oral enteric [...] Status: Ordered gabapentin 300 mg oral capsule 900 mg, Capsule, By Mouth, 07/10/22 12:00:00 EDT Start Date: 07/10/22 Stop Date: 07/10/22 Status: Completed gabapentin 300 mg oral capsule 600 mg, 2, capsule, By Mouth, 3 times a day, # 180 capsule, Refills 0, Tot. Refills 0, Maintenance,05/16/22 16:21:00 EDT, Route to Pharmacy Electronically, [facility], Partial fill upon patient request if the prescription is for a sched... Start Date: 05/16/22 Status: Ordered HYDROmorphone 2 mg oral tablet 1 tablet = 2 mg, By Mouth, Every 4 hours, PRN Pain , Moderate, for 3 days, # 18 tablet, 0 Refills, Acute 07/13/22 15:02:00 EDT, 07/10/22 15:02:00 EDT, Tablet, [facility]/pharmacy #[id number], Partial fill upon patient request if the prescription is for a schedule... Start Date: 07/10/22 Stop Date: 07/13/22 Status: Ordered Incruse Ellipta 62.5 mcg/inh inhalation [...] opioid drug. Start Date: 04/27/22 Status: Ordered lisinopril 5 mg oral tablet 2.5 mg, Tablet, By Mouth, 07/10/22 9:00:00 EDT Start Date: 07/10/22 Stop Date: 07/10/22 Status: Completed loperamide 2 mg oral capsule [...] opioid drug. Start Date: 10/07/21 Status: Ordered metoprolol 25 mg oral tablet, extended release 25 mg, XL Tablet, By Mouth, 07/10/22 9:00:00 EDT Start Date: 07/10/22 Stop Date: 07/10/22 Status: Completed Metoprolol Succinate ER 25 mg oral tablet, [...] Daily Start Date: 04/27/22 Status: Ordered predniSONE 20 mg oral tablet 1 tablet = 20 mg, By Mouth, Daily, take 2 pills tomorrow, 07/11 to complete prednisone course, # 2 tablet, 0 Refills, Acute 07/11/22 15:04:00 EDT, 07/10/22 15:04:00 EDT, Tablet, [facility]/pharmacy #[id number], Partial fill upon patient request if the prescription... Start Date: 07/10/22 Stop Date: 07/11/22 Status: Ordered Symbicort 160mcg/4.5mcg Inhaler 2, puffs, Inhalation, 2 times a day, # 10.2 Gm, Refills 0, Maintenance, 03/08/19 9:01:22 EDT, Aerosol Start Date: 03/08/19 Status: Ordered tiZANidine 2 mg oral tablet 1 mg, 0.5, tablet, By Mouth, 3 times a day, PRN, Spasm Start Date: 04/27/22 Status: Ordered Tylenol 325 mg oral tablet 975 mg, Tablet, By Mouth, 07/10/22 11:00:00 EDT Start Date: 07/10/22 Stop Date: 07/10/22 Status: Completed Vitamin B1 100 mg oral [...] Multiple fractures of ribs(Confirmed) 01/06/11 Active Old [place] (myocardial infarctio n) X 3(Confirmed) Active PVD (peripheral vascular disease)(Confirmed) Active Underweight(Confirmed) Active 1Cardiac stents 1991, 1995 Results Radiology Reports * Exam Date Time Procedure Performing Provider Status 07/07/22 2:00 PM Shoulder Min 2 Views Right Sa Teodora rapeggy; Auth (Verified) Notes: (Shoulder Min 2 Views Right) Reason For Exam: Decreased ROM RESULT: Shoulder Min 2 Views Right Shoulder Min 2 Views Right, 3 views REASON: Decreased ROM; Clinical Question(s): Arthritis COMPARISON: 06/21/2022 FINDINGS: The bones appear demineralized but there is no evidence of acute fracture or dislocation. Old healed fracture of the right distal clavicle. Minimal degenerative change of the glenohumeral joint. Normal alignment at the acromioclavicular joint. Status post ORIF of multiple right-sided ribs. Visualized lungs are clear. IMPRESSION: No evidence of acute osseous abnormality. Glenohumeral degenerative change, mild. WSN: [id number] Ordering Physician: Rachel Thomas Dictated By: William Wilson MD Dictated Date/Time: 07/07/22 2:28 pm Reviewed By: William Wilson MD Signed By: William Wilson MD Signed Date/Time: 07/07/22 2:28 pm Transcribed By: BERENICE Transcribed Date/Time: 07/07/22 2:27 pm * Exam Date Time Procedure Performing Provider Status 07/06/22 12:59 PM Chest 2 Views Frontal and Lat Drew Gaona; Luis M (Verified) Notes: (Chest 2 Views Frontal and Lat) Reason For Exam: COPD RESULT: Chest 2 Views Frontal and Lat Chest 2 Views Frontal and Lat Hx of Present Illness: c o abd pain, low back pain, was in [facility] yesterday; Reason: COPD; Clinical Question(s): Pneumonia COMPARISON: 07/01/2022 FINDINGS: LINES AND TUBES: None. LUNGS AND PLEURA: Low lung volumes with mild basilar atelectasis. Lungs are otherwise clear with no consolidation. No pleural effusion. No pneumothorax. HEART, MEDIASTINUM AND MAMADOU: Heart is normal in size. Normal upper mediastinal and hilar contour. BONES AND SOFT TISSUES: Status post fixation involving right 7 8 and 9 ribs. A screw is seen projecting over the proximal right rib similar to previous exam. IMPRESSION: No acute abnormality. WSN: [id number] Ordering Physician: Ca Baird Dictated By: Yonny Lynch MD Dictated Date/Time: 07/06/22 1:21 pm Reviewed By: Yonny Lynch MD Signed By: Yonny Lynch MD Signed Date/Time: 07/06/22 1:21 pm Transcribed By: BERENICE Transcribed Date/Time: 07/06/22 1:20 pm Vital Signs Most recent to oldest [Reference Range]: 1 2 3 Height 182 cm (07/09/22 11:31 AM) 182 cm (07/08/22 1:42 AM) 182 cm (07/07/22 10:15 PM) Weight 54.1 kg (07/06/22 11:00 PM) 54.1 kg (07/06/22 8:00 PM) Oxygen Saturation [94-100 %] 100 % (07/10/22 8:00 AM) 100 % (07/10/22 4:00 AM) 99 % (07/10/22 12:00 AM) Pulse Rate [55-90 bpm] 85 bpm (07/10/22 8:49 AM) 83 bpm (07/10/22 4:00 AM) 88 bpm (07/10/22 12:00 AM) Body Mass Index [18.5-24.99] 16.33 *L* (07/06/22 11:00 PM) Blood Pressure [90-138/55-84 mm Hg] 153/96mm Hg *H* (07/10/22 8:49 AM) 153/96mm Hg *H* (07/10/22 8:49 AM) 147/83mm Hg *H* (07/10/22 4:00 AM) Respiratory Rate [16-30 br/min] 18 br/min (07/10/22 1:40 PM) 18 br/min (07/10/22 12:34 PM) 18 br/min (07/10/22 12:34 PM) Temperature [96.8-100.4 DegF] 98.6 DegF (07/10/22 8:00 AM) 98.2 DegF (07/10/22 4:00 AM) 98.4 DegF (07/10/22 12:00 AM) Liters per Minute 3.5 L/min (07/10/22 8:00 AM) 3.5 L/min (07/10/22 4:00 AM) 4 L/min (07/10/22 12:00 AM) Mode of Delivery (Oxygen) Nasal cannula (07/10/22 8:00 AM) Nasal cannula (07/10/22 4:00 AM) Nasal cannula (07/10/22 12:00 AM) Blood pressure sites Arm, left (07/10/22 8:00 AM) Arm, left (07/10/22 4:00 AM) Arm, left (07/10/22 12:00 AM) Temperature Route Oral (07/10/22 8:00 AM) Oral (07/10/22 4:00 AM) Oral (07/10/22 12:00 AM) Dry Weight 54.1 kg (07/06/22 11:00 PM) Weight Obtained Via Bed scale (07/06/22 8:00 PM) Social History Social History Type Response Tobacco Use: 4 or less cigar ettes(less than 1/4 pack)/day in last 30 days. Sex
--- OUTSIDE RECORDS SUMMARY | 2023-08-15 20:22 | XMS_ITS | Continuity of Care Document ---
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 oral delayed release tablet, 40 mg, By Mouth, Daily Robitussin DM Liquid, 5 mL, By Mouth, Every 6 hours, PRN Vitamin B1 100 mg oral tablet, 100 mg, By Mouth, Daily Home acetaminophen 325 mg oral tablet, 650 mg= 2 tablet, By Mouth, Every 4 hours, PRN albuterol 0.042% inhalation solution, 1.25 mg= 3 mL, Neb, Every 4 hours albuterol 90 mcg/inh inhalation powder, 2 puffs, Inhalation, Every 4 hours, PRN aspirin 81 mg oral capsule, 81 mg= 1 capsule, By Mouth, Daily atorvastatin 80 mg oral tablet, 80 mg= 1 tablet, By Mouth, Daily Daptomycin IV, See Instructions dicyclomine 10 mg oral capsule, 10 mg= 1 capsule, By Mouth, 4 times a day duloxetine 60 mg oral enteric coated capsule, 60 mg= 1 capsule, By Mouth, 2 times a day Eliquis 5 mg oral tablet, 5 mg= 1 tablet, By Mouth, 2 times a day, 5 refills gabapentin 300 mg oral capsule, 600 mg= 2 capsule, By Mouth, 3 times a day HYDROmorphone 4 mg oral tablet, 4 mg= 1 tablet, By Mouth, Every 4 hours, PRN hydrOXYzine hydrochloride 10 mg oral tablet, 10 mg= 1 tablet, By Mouth, 3 times a day, PRN Incruse Ellipta 62.5 mcg/inh inhalation powder, 1 puffs, Inhalation, Every 24 hours isosorbide dinitrate 30 mg oral tablet, 30 mg= 1 tablet, By Mouth, 2 times a day lisinopril 2.5 mg oral tablet, 2.5 mg= 1 tablet, By Mouth, Daily loperamide 2 mg oral capsule, 2 mg= 1 capsule, By Mouth, Every 4 hours, PRN Melatonin, 10 mg, By Mouth, Daily at bedtime, PRN Metoprolol Succinate ER 25 mg oral tablet, extended release, 25 mg= 1 tablet, By Mouth, Daily pantoprazole 40 mg oral delayed release tablet, 40 mg= 1 tablet, By Mouth, Daily Robitussin DM Liquid, 5 mL, By Mouth, Every 6 hours, PRN Symbicort 160mcg/4.5mcg Inhaler, 2 puffs, Inhalation, 2 times a day Vitamin B1 100 mg oral tablet, 100 mg= 1 tablet, By Mouth, Daily Allergies Toradol??(Morphine allergy, Metaxalone, Naproxen, Cephalexin allergy, hives) Keflex??(rash) Skelaxin??(H/O: migraine) naproxen??(lesions on lips) Social History Alcohol Use: Never. Electronic Cigarette/Vaping Electronic Cigarette Use: Never. Employment/School Status: Retired. 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 Home/Environment Living situation: Home with assistance. Lives with: Children. Other: has son who lives downstairs from him who helps with his IADLs. Substance Abuse Use: Never. Tobacco Use: 4 or less cigarettes(less than 1/4 pack)/day in last 30 days. Interested in cessation: Yes. Other: Reports smoked at least 30 years, up to 1-2 PPD at one point.. Type: Cigarettes. Family History Asthma: Sister. COPD - Chronic obstructive pulmonary disease: Mother. Cardiac valve prolapse: Mother. Lupus: Other. Stroke: Father. Immunizations Vaccine Date Status pneumococcal 20-valent conjugate vaccine 02/03/2023 Recorded influenza virus vaccine, inactivated 02/03/2023 Recorded [id number] 12y+ bivalent booster vax 08/23/2022 Recorded SARS-CoV-2 (COVID-19) mRNA-1273 vaccine 01/17/2022 Recorded SARS-CoV-2 (COVID-19) mRNA-1273 vaccine 01/17/2022 Recorded tetanus/diphtheria/pertussis, acel(Tdap) 06/09/2021 Given tetanus/diphtheria/pertussis, acel(Tdap) 06/09/2021 Recorded SARS-CoV-2 (COVID-19) mRNA-1273 vaccine 02/23/2021 Recorded SARS-CoV-2 (COVID-19) mRNA-1273 vaccine 02/23/2021 Recorded SARS-CoV-2 (COVID-19) mRNA-1273 vaccine 01/25/2021 Recorded SARS-CoV-2 (COVID-19) mRNA-1273 vaccine 01/25/2021 Recorded influenza virus vaccine, inactivated 10/27/2020 Recorded influenza virus vaccine, inactivated 10/27/2020 Recorded influenza virus vaccine, inactivated 02/03/2020 Recorded influenza virus vaccine, inactivated 02/03/2020 Recorded pneumococcal 23-valent vaccine 08/19/2019 Recorded pneumococcal 23-valent vaccine 08/19/2019 Recorded zoster vaccine, inactivated 09/11/2018 Recorded zoster vaccine, inactivated 09/11/2018 Recorded influenza virus vaccine, inactivated 07/26/2018 Recorded influenza virus vaccine, inactivated 07/26/2018 Recorded Zoster Vaccine Live 04/05/2018 Recorded zoster vaccine, inactivated 04/05/2018 Recorded influenza virus vaccine, inactivated 08/29/2017 Recorded influenza virus vaccine, inactivated 08/29/2017 Recorded tetanus/diphtheria/pertussis, acel(Tdap) 05/30/2017 Recorded tetanus/diphtheria/pertussis, acel(Tdap) 05/30/2017 Recorded influenza virus vaccine, inactivated 08/17/2016 Recorded influenza virus vaccine, inactivated 08/17/2016 Recorded influenza virus vaccine, inactivated 09/02/2015 Recorded influenza virus vaccine, inactivated 09/02/2015 Recorded pneumococcal 23-valent vaccine - Not Given Comments : Patient Refuses influenza virus vaccine, inactivated - Not Given Comments : Patient Refuses influenza virus vaccine, inactivated 08/07/2014 Recorded influenza virus vaccine, inactivated 08/07/2014 Recorded tetanus/diphtheria/pertussis, acel(Tdap) 05/11/2010 Given Diphth-Tetanus Toxoids Adsorbed(oldterm) 06/04/2007 Given influenza virus vaccine, inactivated 10/14/2006 Given Comments : VIS GIVEN ??NO EGG ALLERGY Diagnostic Results Chest CTA personally reviewed and agree with the radiologist's interpretation unless otherwise specified. ? COMPARISONS: 04/20/2023. ?? ANGIOGRAPHIC FINDINGS: ?? Evaluation is mildly limited by incomplete opacification of the left lower lobe pulmonary arteries with contrast. ?? No pulmonary embolism to the subsegmental level. Normal caliber pulmonary arteries. ?? No acute aortic abnormality seen on this study performed without cardiac gating. ? NON-ANGIOGRAPHIC FINDINGS: ?? Insole Reinforcer View Findings, Lines and Tubes: None. ?? Trachea and Airways: Patent without evidence of tracheal or endobronchial lesion. ?? Lungs and Pleura: Severe centrilobular emphysema. Unchanged 4 x 2 x 2.5 cm groundglass opacity in the left upper lobe, stable since the most recent CT but increased in size from 3.1 cm on 10/31/2021. No effusion or pneumothorax. ?? Mediastinum and sivan: No mass or hematoma. No mediastinal or hilar lymphadenopathy. Esophagus is patulous with fluid in the lumen. ?? Heart: Heart is normal in size. No pericardial effusion. ?? Chest Wall Soft Tissues: Normal.? Diaphragm and upper abdomen: Stomach is markedly distended. ?? Bones: No acute abnormality. Multiple chronic compression fractures in the thoracic and visualized lumbar spine without significant interval change. Chronic appearing deformity of the partially imaged right distal clavicle prior right posterior seventh through ninth rib fixation with hardware in place. Chronic healed left lateral rib fractures. ?? IMPRESSION:? No evidence of pulmonary embolism. Patulous esophagus with fluid in the lumen and markedly distended stomach increase aspiration risk. Left upper lobe groundglass opacity has gradually increased in size compared to 2020. This could represent an area of scarring but adenocarcinoma in situ is also in the differential diagnosis. Pulmonology follow-up is recommended after resolution of patient's acute illness. ?? * Cass Marie MD, Phuc Jin: PERFORM Event Display: Consult Authored Date: Patient seen and examined with MS4 Jeff Tamez. I have reviewed and edited??the patient???s medical history, physical exam findings, laboratory and images, and the assessment and plan as documented in above mentioned note. I am in agreement with the plan of care as documented in the note. Admission evaluation note * Stella Khan DO: MODIFY, PERFORM, MODIFY Event Display: Admission Note Authored Date: Patient: ??ANT MENON ? Age:??67 Years?Sex:??Male?:??1955?? Chief Complaint/Reason for Consultation SOB History of Present Illness Pt is a 67 yo M with PMHx of COPD on home 2-3L, tobacco use disorder, CAD, HTN, HLD, anxiety/depression, prior alcohol use disorder, chronic foot ulcers, multiple fractures complicated by uncontrolled pain who is presenting in setting of shortness of breath. ?? Pt reports he was feeling his normal self other than his chronic back when today he developed worsening shortness of breath. Has had mild worsening of his chronic cough with yellow/green sputum and thicker secretions. Went to use albuterol inhaler and realized he had none left. Has not felt he had to use it more frequently over last few days. Also endorses mild epigastric pain.??Denies any fever,chills, night sweats, nausea, vomiting, diarrhea, dysuria. Per EMS, patient was hypoxic in the high70/low 80s on home O2. ?? Of note, patient has care plan in place noting that patient has had uncontrolled pain and recommended to avoid IV dilaudid for non-acute issues. Recommend gabapentin, PO dilaudid with engagement of pain management team. Also has dual chart with . Checked [facility] last filled [id number] for 60 tablets on 03/03/23. ?? He was recent discharged on 04/27/23 for acute on chronic hypoxia and treated for COPD exacerbation.There was a concern for adenocarcinoma and seen by thoracic surgery -> imaging fairly unchanged,recommend surveillance in 6 months w. appt scheduled 10/27/23 at 9:30 AM. Also has been on daptomycin for R shoulder septic arthritis w. plan to F/U with [facility]/Pt's ID team at [facility]. ?? On admission, patient afebrile and HDS saturating well on 4L NC. When saw patient, ED put patient on BIPAP more so for his hypercarbic respiratory failure. Labs significant for a leukocytosis of 16.6, Hgb 10.6 (baseline variable, ~8-9), Platelets 234. Electrolytes WNL other than a bicarb of 35 (b aseline also variable, ~34-38), BUN 24, Cr 0.6. Troponin 39 then 35, pro bnp 114. Review of Systems Constitutional: Positive for weakness. No?? fever, chills HEENT:??No visual loss, blurred vision, double vision, hearing changes. Respiratory:??Positive for SOB and cough Cardiovascular:??No chest pain, chest pressure or chest discomfort. Gastrointestinal:??Positive for epigastric discomfort, chronic diminished appetite. No??nausea, vomiting or diarrhea. Genitourinary:??No burning micturition. No urinary frequency or incontinence. Neurologic:??No headache, dizziness. Musculoskeletal:??Positive right shoulder, hip, back pain Skin:??No rash or itching. Endocrine: No polyuria or polydipsia. Psychiatric:??positive for depression and anxiety Objective Vital Signs?? Temperature: 97 DegF (05/02/23 06:26:00) Temperature Route: Axillary (05/02/23 06:26:00) Pulse Rate: 66 bpm (05/02/23 15:13:00) Respiratory Rate:??14 br/min??Low (05/02/23 15:13:00) Systolic Blood Pressure: 122 mm Hg (05/02/23 15:13:00) Diastolic Blood Pressure: 84 mm Hg (05/02/23 15:13:00) Blood pressure sites: Arm, left (05/02/23 09:07:00) Mean Arterial Pressure: 97 mm Hg (05/02/23 15:13:00) Pulse Pressure: 38 mm Hg (05/02/23 15:13:00) Oxygen Saturation: 100 % (05/02/23 15:13:00) Liters per Minute: 4 L/min (05/02/23 15:13:00) Mode of Delivery (Oxygen): Nasal cannula (05/02/23 15:13:00) FiO2: 30 % (05/02/23 13:32:00) Early Warning Score: 5 (05/02/23 15:14:06) ? Intake/Output? No Data Available ? Physical Exam General: Appears well, occasionally tearful when discussing pain. In no??acute distress Neuro: CN II-XII grossly intact. No focal neurologic deficit appreciated. HEENT: normocephalic, non-traumatic, sclera non-injected, CV:?? Normal S1 & S2. No murmurs, rubs, or gallops. Pulm: Diminished breath sounds on expiratory effort all through. Did not appreciate any wheezing/rales/ronchi. GI: Non-distended with normoactive bowel sounds in all 4 quadrants.??Mild tenderness??to palpation in epigastric region.??No guarding or referred pain.?? Vasc: no edema, peripheral pulses 2+ bilaterally Psych: alert, orientedx4, normal affect, ??responds appropriately to questions Assessment/Plan ??Pt is a 67 yo M with PMHx of COPD on home 2-3L, tobacco use disorder, CAD, HTN, HLD, hx DVT on eliquis,??anxiety/depression, prior alcohol use disorder, chronic foot ulcers, multiple fractures due to fall complicated by uncontrolled pain who is presenting in setting of shortness of breath. Admitted for COPD exacerbation and management of his chronic hypercarbic respiratory failure. ?? PLAN Chronic hypercarbic respiratory failure COPD exacerbation Hx of COPD on chronic home O2 2-3L Acute hypoxic respiratory failure - resolved Bicarb of 35 on admission (baseline also variable, ~34-38) Likely COPD exacerbation in setting of initial hypoxia per EMS, increased sputum production/cough, SOB Unclear trigger, likely due to poor control of chronic lung disease and running out of home medication (albuterol). Given chronic hypercarbia would have thought pt on bipap at home at night but pt reports just NC. Does not recall if never tried the mask or did not like it and stopped using it. Per chart search, there has been documented KENNEDI with CPAP non-compliance but no sleep study in our system. ?? Plan: - Consult pulmonology for further recommendations of preventing recurrent hospitalization for COPD management/hypercarbic respiratory failure. Will see in AM ?? Prelim recs: Trial Bipap at night w. settings??11/01, ABG now and again in AM ?? could consider pulm rehab for work-around for BIPAP until sleep study can be done, has PFTs in chart from 2019 - Duonebs 4x/day scheduled, albuterol PRN - Home symbicort BID -> breo-ellipta qd - Holding home incruse ellipta as non-formulary - Start prednisone 40mg qd - Azithromycin x4 days - CTA to r/o PE - hx of DVT, hypoxia. Pt is on apixaban and reports he is compliant, not tachycardic. ?? Acute on chronic pain Hx of septic arthritis of R shoulder Hx multiple orthopedic surgeries (pt reports fell down 30 flights of stairs at one point and broke his back) Care plan in place from??many years ago??- to avoid IV dilaudid for non-acute issues. Recommend gabapentin, PO dilaudid with engagement of pain management team Checked [facility] last filled hydromorphone 4mg for 60 tablets on 03/03/23. ?? Plan: - Unclear if still taking daptomycin, will need to f/u with son. ?? Reached out to ortho, reports he should be on Daptomycin until he follows up with [facility] ID?Ordered through pharmacy - Continue home dilaudid 4mg PRN ?? Chronic/stable conditions CAD, HTN, HLD: Continue home atorvastatin, metoprolol, aspirin, isosorbide dinitrate, lisinopril Hx DVT: Continue home apixaban Anxiety/Depression: Continue home duloxetine,??hydroxyzine PRN IBS, GERD: Continue home dicyclomine, loperamide PRN, pantoprazole ?? Quality measures Diet:??Cardiac VTE prophylaxis:??Apixaban Code status:??FULL CODE?? Family update/HCP:??Attempted to reach Nehemias via phone, left VM 05/02/23- please reach out and see ifstill taking daptomycin ?? Pt discussed with attending physician??Dr. Moore ?? Stella Khan D.O. Internal medicine PGY2 #[id number] or [facility] ?? Histories Allergies Allergies ?(Active and Proposed Allergies Only) naproxen? (Severity: Unknown severity, Onset: Unknown) ?Reactions: lesions on lips Toradol? (Severity: Persistent Mild, Onset: Unknown) ?Reactions: hives, Cephalexin allergy, Naproxen, Metaxalone, Morphine allergy Keflex? (Severity: Unknown severity, Onset: Unknown) ?Reactions: rash ?Comments: tolerates pip/tazo 11/17 Skelaxin? (Severity: Unknown severity, Onset: Unknown) ?Reactions: H/O: migraine ? Past Medical History/Problem List Active Problems??(17) Anemia Anxiety CAD - Coronary artery disease Chronic low back pain COPD (chronic obstructive pulmonary disease) COPD exacerbation Deep vein thrombosis (DVT) of left lower extremity GERD (gastroesophageal reflux disease) HTN (hypertension) Hyperlipidemia Hyponatremia Metabolic alkalosis Multiple fractures of ribs Old HI (myocardial infarction) X 3 PVD (peripheral vascular disease) Smoking greater than 40 pack years Underweight ? Past Surgical History Arthrotomy, glenohumeral joint, including exploration, drainage, or removal of foreign body: 01/11/23 Arthrocentesis, aspiration and/or injection, major joint or bursa (eg, shoulder, hip, knee, subacromial bursa); without ultrasound guidance: 03/13/19 Removal of implant; deep (eg, buried wire, pin, screw, metal band, nail, tonio or plate): 03/13/19 Debridement of bone: 07/13/16 Bilateral iliac Stent placements: 08/25/15 Left lower extremity common femoral artery endarterectomy: 08/13/15 multiple lumbar spine surgeries ? Social History Alcohol Details:??Use: Never. Employment/School Details:??Status: Retired. 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 Home/Environment Details:??Living situation: Home with assistance. ??Lives with: Children. ??Other: has son who lives downstairs from him who helps with his IADLs. Substance Abuse Details:??Use: Never. Tobacco Details:??Use: 4 or less cigarettes(less than 1/4 pack)/day in last 30 days. ??Interested in cessation: Yes. ??Other: Reports smoked at least 30 years, up to 1-2 PPD at one point.. ??Type: Cigarettes. Electronic Cigarette/Vaping Details:??Electronic Cigarette Use: Never. ? Family History Mother: COPD - Chronic obstructive pulmonary disease; Cardiac valve prolapse Father: Stroke Sister (Brinda): Asthma Other (Another sister-): Lupus ? Medications Home Medications Acetaminophen (acetaminophen 325 mg oral tablet)?650?Milligram?2?tablet?By Mouth?Every 4 hours?as needed?as needed for fever Albuterol (albuterol 90 mcg/inh inhalation powder)?2?puff(s)?Inhalation?Every 4 hours?as needed?as needed Albuterol (albuterol 0.042% inhalation solution)?3?Milliliter?1.25?Milligram?Neb?Every 4 hours apixaban (Eliquis 5 mg oral tablet)?1?tab(s)?5?Milligram?By Mouth?2 times a day?for 30?Days Aspirin (aspirin 81 mg oral capsule)?1?capsule?81?Milligram?By Mouth?Daily Atorvastatin (atorvastatin 80 mg oral tablet)?1?tab(s)?80?Milligram?By Mouth?Daily Budesonide-Formoterol (Symbicort 160mcg/4.5mcg Inhaler)?2?puff(s)?Inhalation?2 times a day Dicyclomine (dicyclomine 10 mg oral capsule)?1?capsule?10?Milligram?By Mouth?4 times a day Duloxetine (duloxetine 60 mg oral enteric coated capsule)?1?capsule?60?Milligram?By Mouth?2 times a day Gabapentin (gabapentin 300 mg oral capsule)?600?Milligram?2?capsule?By Mouth?3 times a day Guaifenesin/Dextromethorphan (Robitussin DM Liquid)?5?Milliliter?By Mouth?Every 6 hours?as needed?Cough Hydromorphone (HYDROmorphone 4 mg oral tablet)?1?tab(s)?4?Milligram?By Mouth?Every 4 hours?as needed?as needed for pain HydrOXYzine (hydrOXYzine hydrochloride 10 mg oral tablet)?1?tab(s)?10?Milligram?By Mouth?3 times a day?as needed?Anxiety Isosorbide Dinitrate (isosorbide dinitrate 30 mg oral tablet)?1?tab(s)?30?Milligram?By Mouth?2 times a day Lisinopril (lisinopril 2.5 mg oral tablet)?2.5?Milligram?1?tablet?By Mouth?Daily Loperamide (loperamide 2 mg oral capsule)?2?Milligram?1?capsule?By Mouth?Every 4 hours?as needed?for loose stool Melatonin?10?Milligram?By Mouth?Daily at bedtime?as needed?as needed for sleep Metoprolol (Metoprolol Succinate ER 25 mg oral tablet, extended release)?1?tab(s)?25?Milligram?By Mouth?Daily Miscellaneous Rx (Daptomycin IV)?See Instructions?Daptomycin 350 mg IV every 24 hours as instructed by Dr Gary Gross Pantoprazole (pantoprazole 40 mg oral delayed release tablet)?1?tab(s)?40?Milligram?By Mouth?Daily Thiamine (Vitamin B1 100 mg oral tablet)?100?Milligram?1?tablet?By Mouth?Daily umeclidinium (Incruse Ellipta 62.5 mcg/inh inhalation powder)?1?puff(s)?Inhalation?Every 24 hours ? Inpatient Medications Medications (23) Active SCHEDULED: (15) Albuterol/Ipratropium Inhalation Marilin 3mL (Duoneb Inhalation Solution) ??1 vials, BAND Nebulizer, 4 times a day Apixaban 5 mg Tablet (Eliquis) ??5 mg, By Mouth, 2 times a day Aspirin 81 mg EC Tablet (Aspirin) ??81 mg, By Mouth, Daily Atorvastatin 80 mg Tablet (atorvastatin 80 mg oral tablet) ??80 mg, By Mouth, Daily Azithromycin 500 mg Tablet (Azithromycin Tablet) ??250 mg, By Mouth, Daily Breo Ellipta 200 mcg / 25 mcg Inhaler (Breo Ellipta 200 mcg-25 mcg Inhaler) ??1 puffs, Inhalation, Daily Daptomycin 500 mg Inj (DAPTOmycin Inj) ??350 mg 7 mL, IV Push Slowly, Every 24 hours Dicyclomine 10 mg Capsule (dicyclomine 10 mg oral capsule) ??10 mg 1 capsule, By Mouth, 3 times a day Duloxetine 60 mg Capsule (Duloxetine) ??60 mg, By Mouth, 2 times a day Gabapentin 300 mg Capsule (gabapentin 300 mg oral capsule) ??600 mg, By Mouth, 3 times a day Isosorbide Dinitrate 20 mg Tablet (isosorbide dinitrate 20 mg oral tablet) ??30 mg, By Mouth, 2 times a day Lisinopril 5 mg Tablet (lisinopril 5 mg oral tablet) ??2.5 mg, By Mouth, Daily Metoprolol 25 mg XL Tablet (Metoprolol Succinate ER 25 mg oral tablet, extended release) ??25 mg, By Mouth, Daily Pantoprazole 40 mg EC Tablet (pantoprazole 40 mg oral delayed release tablet) ??40 mg, By Mouth, Daily Thiamine 100 mg Tablet (Vitamin B1 100 mg oral tablet) ??100 mg, By Mouth, Daily CONTINUOUS: (0) PRN: (8) Acetaminophen 325 mg Tablet (acetaminophen 325 mg oral tablet) ??650 mg, By Mouth, Every 4 hours Albuterol 90mcg/Inhalation Inhaler HFA (albuterol CFC free 90 mcg/inh inhalation aerosol) ??180 mcg2 puffs, Inhalation, Every 4 hours Calcium Carbonate 500 mg (Calcium 200 mg) Chewable Tablet (calcium carbonate 500 mg (200 mg elemental calcium) oral tablet, chewable) ??500 mg 1 tablet, Chew, Every 4 hours Dextromethorphan-Guaifenesin 20 mg-200 mg/10 mL Liqu UD (Robitussin DM Liquid) ??5 mL, By Mouth, Every 6 hours HYDROmorphone 4 mg Tablet (HYDROmorphone 4 mg oral tablet) ??4 mg, By Mouth, Every 4 hours HydrOXYzine HCL 10mg Tablet (hydrOXYzine hydrochloride 10 mg oral tablet) ??10 mg, By Mouth, 3 times a day Loperamide 2 mg Capsule (loperamide 2 mg oral capsule) ??2 mg, By Mouth, Every 4 hours Melatonin 3 mg Tablet (melatonin 5 mg oral tablet) ??9 mg, By Mouth, Daily at bedtime ? Results Recent Labs BLOOD COUNT & DIFF WBC 16.6 k/mm3 (High)?? 05/02/2023 08:04 RBC 3.97 m/mm3 (Low)?? 05/02/2023 08:04 Hgb 10.6 Gm/dL (Low)?? 05/02/2023 08:04 Hct 36.6 % (Low)?? 05/02/2023 08:04 MCV 92.2 femtoliters ()?? 05/02/2023 08:04 MCH 26.7 pg (Low)?? 05/02/2023 08:04 MCHC 29.0 g/dL (Low)?? 05/02/2023 08:04 Platelet Count 234 k/mm3 ()?? 05/02/2023 08:04 RDW-SD 60.7 femtoliters (High)?? 05/02/2023 08:04 MPV 9.6 femtoliters ()?? 05/02/2023 08:04 Nucleated RBC (Automated) 0.0 #/100 WBC'S ()?? 05/02/2023 08:04 Abs. NRBC 0.0 k/mm3 ()?? 05/02/2023 08:04 Abs. Neut 12.4 k/mm3 (High)?? 05/02/2023 08:04 Abs. Lymph 2.3 k/mm3 ()?? 05/02/2023 08:04 Abs. [place] 1.2 k/mm3 ()?? 05/02/2023 08:04 Abs. Eo 0.0 k/mm3 ()?? 05/02/2023 08:04 Abs. Baso 0.3 k/mm3 (High)?? 05/02/2023 08:04 Neut % 75.0 % ()?? 05/02/2023 08:04 Lymph % 14.0 % (Low)?? 05/02/2023 08:04 [place] % 7.0 % ()?? 05/02/2023 08:04 Eos % 0.0 % ()?? 05/02/2023 08:04 Baso % 2.0 % ()?? 05/02/2023 08:04 Metamyelocyte % 2.0 % ()?? 05/02/2023 08:04 RBC Morphology MODERATE ()?? 05/02/2023 08:04 WBC Morphology MODERATE ()?? 05/02/2023 08:04 Platelet Estimate ADEQUATE ()?? 05/02/2023 08:04 ?? BLOOD GAS Specimen Type - Blood Gas VENOUS ()?? 05/02/2023 11:38 pH, Venous 7.25 (Low)?? 05/02/2023 11:38 pCO2, Venous 95 mm Hg (High)?? 05/02/2023 11:38 pO2, Venous <20 mm Hg (Low)?? 05/02/2023 11:38 Bicarbonate, Estimated(Venous) 40 mmol/L (High)?? 05/02/2023 11:38 ?? CARDIAC Nt-Probnp 114 pg/mL ()?? 05/02/2023 08:04 High Sensitivity Troponin (HSTnT) 34 ng/L (High)?? 05/02/2023 13:44 ?? CHEM GENERAL Sodium 144 mmol/L ()?? 05/02/2023 08:04 Potassium 4.5 mmol/L ()?? 05/02/2023 08:04 Chloride 98 mmol/L ()?? 05/02/2023 08:04 Bicarbonate Level 35 mmol/L (High)?? 05/02/2023 08:04 Anion Gap 11 ()?? 05/02/2023 08:04 Glucose Level 91 mg/dL ()?? 05/02/2023 08:04 BUN 24 mg/dL (High)?? 05/02/2023 08:04 Creatinine-Blood 0.6 mg/dL (Low)?? 05/02/2023 08:04 Estimated GFR Creatinine 108 ML/MIN/1.73 M2 ()?? 05/02/2023 08:04 Calcium 9.5 mg/dL ()?? 05/02/2023 08:04 ?? HEME OTHER Hold Lavender Top SPECIMEN DISCARDED AFTER 24 HOURS. ()?? 05/02/2023 13:44 ?? URINE OTHER Est Creatinine Clearance 107.64 mL/min ()?? 05/02/2023 09:02 ?? VIROLOGY COVID-19 by RT-PCR NEGATIVE ()?? 05/02/2023 08:43 ? Abnormal Labs ?? BLOOD COUNT & DIFF ??Abs. Baso ??0.3 k/mm3 (High) ??05/02/2023 08:04 ??Abs. NRBC ??0.0 k/mm3 () ??05/02/2023 08:04 ??Abs. Neut ??12.4 k/mm3 (High) ??05/02/2023 08:04 ??Hct ??36.6 % (Low) ??05/02/2023 08:04 ??Hgb ??10.6 Gm/dL (Low) ??05/02/2023 08:04 ??Lymph % ??14.0 % (Low) ??05/02/2023 08:04 ??MCH ??26.7 pg (Low) ??05/02/2023 08:04 ??MCHC ??29.0 g/dL (Low) ??05/02/2023 08:04 ??Nucleated RBC (Automated) ??0.0 #/100 WBC'S () ??05/02/2023 08:04 ??Platelet Estimate ??ADEQUATE () ??05/02/2023 08:04 ??RBC ??3.97 m/mm3 (Low) ??05/02/2023 08:04 ??RBC Morphology ??MODERATE () ??05/02/2023 08:04 ??RDW-SD ??60.7 femtoliters (High) ??05/02/2023 08:04 ??WBC ??16.6 k/mm3 (High) ??05/02/2023 08:04 ??WBC Morphology ??MODERATE () ??05/02/2023 08:04 ? BLOOD GAS ??Bicarbonate, Estimated(Venous) ??40 mmol/L (High) ??05/02/2023 11:38 ??Specimen Type - Blood Gas ??VENOUS () ??05/02/2023 11:38 ??pCO2, Venous ??95 mm Hg (High) ??05/02/2023 11:38 ??pH, Venous ??7.25 (Low) ??05/02/2023 11:38 ??pO2, Venous ??<20 mm Hg (Low) ??05/02/2023 11:38 ? CARDIAC ??High Sensitivity Troponin (HSTnT) ??34 ng/L (High) ??05/02/2023 13:44 ? CHEM GENERAL ??BUN ??24 mg/dL (High) ??05/02/2023 08:04 ??Bicarbonate Level ??35 mmol/L (High) ??05/02/2023 08:04 ??Creatinine-Blood ??0.6 mg/dL (Low) ??05/02/2023 08:04 ??Estimated GFR Creatinine ??108 ML/MIN/1.73 M2 () ??05/02/2023 08:04 ? HEME OTHER ??Hold Lavender Top ??SPECIMEN DISCARDED AFTER 24 HOURS. () ??05/02/2023 13:44 ? VIROLOGY ??COVID-19 by RT-PCR ??NEGATIVE () ??05/02/2023 08:43 ? Note: Critical results are displayed in red. ? * Alex Moore MD: PERFORM Event Display: Admission Note Authored Date: [id number] Attending Attestation (Alex Moore M.D.) 67-year-old man with COPD with chronic hypoxic respiratory failure (4 L), peripheral vascular disease who presented for hypoxia. ?? Diagnoses: COPD exacerbation Acute on chronic hypoxic and hypercarbic respiratory failure Peripheral vascular disease History of DVT Right shoulder septic arthritis ?? Labwork reviewed and significant for Normocytic anemia and Leukocytosis. Vitals reviewed and significant for Hypoxia and otherwise unremarkable. Physical exam performed and significant for no wheezing or increased work of breathing.?? LLQ abdominal pain with +BS.. Imaging reviewed and significant for: CXR personally reviewed and unremarkable.. ?? Assessment: He improved on BiPAP and removed BiPAP himself.?? He was alert and oriented on his normal 4 L.?? Noincreased sputum.?? Unclear what caused abrupt drop in oxygen saturation. ?? Plan: ??? Prednisone 40 mg QD and azithromycin??5 days course ??? CT angio chest to rule out pulmonary embolism ??? Pulmonology consult for nocturnal BiPAP recommendations with likely outpatient PSG ??? We will confirm with orthopedics duration of daptomycin ??? Routine wound VAC management ?? Ongoing Medical Necessity: CT Angio Chest ?? Quality Measures: CODE STATUS: FULL CODE DVT Prophylaxis: Enoxaparin 40mg QD Disposition: Pending Physical Therapy Evaluation ?? I evaluated the patient on date of service 05/02/2023. I saw and evaluated this patient with Dr. Khan and agree with the resident???s findings and plan of care as documented by the resident or edited by me. I spent 38 minutes on the following: preparing to see the patient (eg, review of tests), obtaining and/or reviewing separately obtained history, performing a medically appropriate examination and/or evaluation, counseling and educating the patient/family/caregiver and care coordination * Stella Khan DO: PERFORM Event Display: Admission Note Authored Date: Please reach out to orthopedics/surgery in AM for wound vac management Pt also requesting IV dilaudid again later in the afternoon, will give an additional PO dilaudid 2mg (for a dose of 6mg) to trial if this manages pain. Would consider pain service consult if difficulty to manage. ?? EKG study * Event Display: EKG Authored Date: Hospital Progress note * Rebecca Whitley RN: PERFORM, SIGN, VERIFY Event Display: Progress Note Hospital Authored Date: Patient: ANT MENON Age: 67 years Sex: Male : 1955 Associated Diagnoses: None Author: Rebecca Whitley RN Findings Narrative/Incidental Patient alert x4. Report called to nurse on erie 3. Patient tolerated breakfast without issues. Voiding clear yellow urine in urinal. Frequnet rounding initiated.. Discharge Information Case Management Discharge Plan : Case Management Discharge Plan Data 05/06/2023 11:13 EDT Discharge Level of Care at Discharge Homehealth/VNA Discharge VNA/Hospice/Home Care [facility] Discharge [employer] [facility] 05/06/2023 9:46 EDT Discharge Level of Care at Discharge Homehealth/VNA Discharge VNA/Hospice/Home Care [facility] Discharge Medical Equipment Companies [employer] [facility] Discharge Transportation Arranged [facility] [address] [place] [phone] Discharge Arranged Transport Date/Time 05/06/2023 12:00 Mode of Transportation Arranged Ambulance Name of Agency #1 [facility] Name of Agency #1 [facility] Service Categories #1 Physical Therapy, Shelter Service Comments #1 [facility] will resume services with you. If you do not hear from them please call the agency at [phone]. Service Categories #2 Oxygen Therapy Pulmonary Rehab Discharge : Pulmonary Rehab Discharge Status 05/02/2023 13:06 EDT CPAP/BiPAP Mask Type Full CPAP/BiPAP Mask Size Medium Rehabilitation Discharge : Rehab Discharge Index 05/03/2023 8:45 EDT Comments on treatment indicated 67 y/o M adm c hypoxia. PT for balance, strengthening, bed mobility, transfers s AD, amb s AD. Rec home c services. Distance pt will ambulate 150' s AD. Full chart review completed Yes Plan of care PT Gait training, Transfer training, Therapeutic exercise, Functional Activities, Balance training, Neuromuscular education * Adria Bell RN: SIGN, VERIFY, PERFORM Event Display: Progress Note Hospital Authored Date: Patient: ANT MENON Age: 67 years Sex: Male : 1955 Associated Diagnoses: None Author: Adria Bell RN Findings Narrative/Incidental Pt A/O x4 but at times does not make sense. Constantly asking for coffee even in the middle of the night. Refused bipap for RT last night, wearing 2L NC. Voiding to urinal. C/o intense chronic back/hip pain, somewhat controlled with PO dilaudid. Wound vac CDI to R shoulder, beeping intermittantly overnight (blockage alert) but resolving on its own. Fall and skin precautions maintained. Sleeping between care. . Discharge Information Pulmonary Rehab Discharge : Pulmonary Rehab Discharge Status 05/02/2023 13:06 EDT CPAP/BiPAP Mask Type Full CPAP/BiPAP Mask Size Medium Rehabilitation Discharge : Rehab Discharge Index 05/03/2023 8:45 EDT Comments on treatment indicated 67 y/o M adm c hypoxia. PT for balance, strengthening, bed mobility, transfers s AD, amb s AD. Rec home c services. Distance pt will ambulate 150' s AD. Full chart review completed Yes Plan of care PT Gait training, Transfer training, Therapeutic exercise, Functional Activities, Balance training, Neuromuscular education * Rebecca Whitley RN: PERFORM, SIGN, VERIFY Event Display: Progress Note Hospital Authored Date: [id number] Patient: ANT MENON Age: 67 years Sex: Male : 1955 Associated Diagnoses: None Author: Rebecca Whitley RN Findings Problem Related to Alteration in Respiratory Function (new) : Alteration in Respiratory Function/new 05/05/2023 18:00 EDT Alteration in Resp Status Related to COPD Goals & Outcomes, Respiratory Pt will maintain/resume baseline physical assessment Interventions, Respiratory Assess/monitor tolerance to IV infusions; verify rate/dose, Initiate pulmonary rehab nurse consult BH Goals/Interventions, Respiratory Yes Respiratory, Problem Start 05/05/2023 10:35 Reviewed Plan with, Respiratory Patient Patient Progression, Respiratory Patient progressing according to plan . Narrative/Incidental Patient alert and oriented x4. Voiding without issues. Patient remains on 2L NC. Patient toleratingall meals without issues. Medicated with prn dilaudid with positive effect. Gabapentin held for hypotension. PA aware. Frequent rounding maintained.. Discharge Information Pulmonary Rehab Discharge : Pulmonary Rehab Discharge Status 05/02/2023 13:06 EDT CPAP/BiPAP Mask Type Full CPAP/BiPAP Mask Size Medium Rehabilitation Discharge : Rehab Discharge Index 05/03/2023 8:45 EDT Comments on treatment indicated 67 y/o M adm c hypoxia. PT for balance, strengthening, bed mobility, transfers s AD, amb s AD. Rec home c services. Distance pt will ambulate 150' s AD. Full chart review completed Yes Plan of care PT Gait training, Transfer training, Therapeutic exercise, Functional Activities, Balance training, Neuromuscular education Note * Jahaira Godinez RN: PERFORM Event Display: Discharge/Transfer Note Hospital Authored Date: [id number] Nursing Discharge Note Entered On: 05/06/2023 11:13 EDT Performed On: 05/06/2023 11:13 EDT by Jahaira Godinez RN Nursing Discharge Note 2 Discharge Time : 05/06/2023 12:44 EDT Jahaira Godinez RN - 05/06/2023 12:57 EDT Discharge Level of Care at Discharge : Homehealth/VNA Discharge VNA/Hospice/Home Care(v001) : [facility] Discharge Medical Equ[employer] Companies(v001) : Anaya Logan Patient Left Unit Via : Ambulance Patient Accompanied Off Unit with : Ambulance/[facility] Van Personnel Handover Given to Transport Personnel : Yes DC Instructions Provided & Signed by Pt : Yes Patient Understands D/C Instructions : Yes Verbalized Understanding of D/C Plan By : Patient Patient Instructions Discharge Signed : Yes Did Pt have Specialty Bed or Wound Vac : No Herbert SHANNON, Jahaira Woods - 05/06/2023 11:13 EDT * Ankush JENSEN, Azra Barry: MODIFY, PERFORM Event Display: Discharge/Transfer Note Hospital Authored Date: Patient: ??ANT MENON ? Age:??67 Years?Sex:??Male?:??1955?? Patient Information Discharge Location: [facility] Primary Care Physician: Jorge Garcia III, MD Admit Date/Time: 05/02/23 13:47 Discharge Disposition Discharge Disposition: Home with Home Health Discharge Diagnosis COPD exacerbation (J44.1) _ Discharge Medications Acetaminophen (acetaminophen 325 mg oral tablet)?650?Milligram?2?tablet?By Mouth?Every 4 hours?as needed?as needed for fever Albuterol (albuterol 90 mcg/inh inhalation powder)?2?puff(s)?Inhalation?Every 4 hours?as needed?as needed Albuterol (albuterol 0.042% inhalation solution)?3?Milliliter?1.25?Milligram?Neb?Every 4 hours apixaban (Eliquis 5 mg oral tablet)?1?tab(s)?5?Milligram?By Mouth?2 times a day?for 30?Days Aspirin (aspirin 81 mg oral capsule)?1?capsule?81?Milligram?By Mouth?Daily Atorvastatin (atorvastatin 80 mg oral tablet)?1?tab(s)?80?Milligram?By Mouth?Daily Azithromycin (azithromycin 250 mg oral tablet)?250?Milligram?By Mouth?Daily?for 1?Days Budesonide-Formoterol (Symbicort 160mcg/4.5mcg Inhaler)?2?puff(s)?Inhalation?2 times a day Dicyclomine (dicyclomine 10 mg oral capsule)?1?capsule?10?Milligram?By Mouth?4 times a day Doxycycline (doxycycline monohydrate 100 mg oral capsule)?100?Milligram?By Mouth?Every 12 hours?for 30?Days Duloxetine (duloxetine 60 mg oral enteric coated capsule)?1?capsule?60?Milligram?By Mouth?2 times a day Gabapentin (gabapentin 300 mg oral capsule)?600?Milligram?2?capsule?By Mouth?3 times a day Guaifenesin/Dextromethorphan (Robitussin DM Liquid)?5?Milliliter?By Mouth?Every 6 hours?as needed?Cough Hydromorphone (HYDROmorphone 4 mg oral tablet)?1?tab(s)?4?Milligram?By Mouth?Every 4 hours?as needed?as needed for pain HydrOXYzine (hydrOXYzine hydrochloride 10 mg oral tablet)?1?tab(s)?10?Milligram?By Mouth?3 times a day?as needed?Anxiety Isosorbide Dinitrate (isosorbide dinitrate 30 mg oral tablet)?1?tab(s)?30?Milligram?By Mouth?2 times a day Lisinopril (lisinopril 2.5 mg oral tablet)?2.5?Milligram?1?tablet?By Mouth?Daily Loperamide (loperamide 2 mg oral capsule)?2?Milligram?1?capsule?By Mouth?Every 4 hours?as needed?for loose stool Melatonin?10?Milligram?By Mouth?Daily at bedtime?as needed?as needed for sleep Metoprolol (Metoprolol Succinate ER 25 mg oral tablet, extended release)?1?tab(s)?25?Milligram?By Mouth?Daily Pantoprazole (pantoprazole 40 mg oral delayed release tablet)?1?tab(s)?40?Milligram?By Mouth?Daily roflumilast (roflumilast 500 mcg oral tablet)?1?tab(s)?500?Microgram?By Mouth?Daily Thiamine (Vitamin B1 100 mg oral tablet)?100?Milligram?1?tablet?By Mouth?Daily umeclidinium (Incruse Ellipta 62.5 mcg/inh inhalation powder)?1?puff(s)?Inhalation?Every 24 hours ?? Quality Measures Tobacco Use Treatment:? 72 Hour Antibiotic History Active Antibiotics Calendar Day Last Administered First Administered Azithromycin??250 mg, By Mouth, Daily ?4 05/06/2023 09:08 05/03/2023 08:14 Doxycycline??100 mg, By Mouth, Every 12 hours ?1 05/06/2023 09:07 05/06/2023 09:07 ?? Stopped Antibiotics Stop Date/Time Last Administered First Administered Daptomycin??350 mg, 7 mL, IV Push Slowly, Every 24 hours 05/06/2023 07:23 05/05/2023 17:57 05/02/2023 17:50 Medications Started Roflumilast??500 mcg daily Medications Discontinued None Doses Changed None Allergies Allergies ?(Active and Proposed Allergies Only) naproxen? (Severity: Unknown severity, Onset: Unknown) ?Reactions: lesions on lips Toradol? (Severity: Persistent Mild, Onset: Unknown) ?Reactions: hives, Cephalexin allergy, Naproxen, Metaxalone, Morphine allergy Keflex? (Severity: Unknown severity, Onset: Unknown) ?Reactions: rash ?Comments: tolerates pip/tazo 11/17 Skelaxin? (Severity: Unknown severity, Onset: Unknown) ?Reactions: H/O: migraine ?? Stroke Onset Details Service Categories #1: Physical Therapy, Shelter Service Categories #2: Oxygen Therapy Able to close lips, pucker and blow out: Yes Able to swallow own secretions: Yes Absence of dysarthria/dysphonia/aphonia: Yes No delay in swallowing (tsp): Yes Patient alert: Yes Swallows water without choking (60cc): Yes Swallows water without choking (tsp): Yes Voice sounds clear, not gurgly (60cc): Yes Voice sounds clear, not gurgly (tsp): Yes Voluntary Cough: Yes ?? Hospital Course Per admitting provider Pt is a 67 yo M with PMHx of COPD on home 2-3L, tobacco use disorder, CAD, HTN, HLD, anxiety/depression, prior alcohol use disorder, chronic foot ulcers, multiple fractures complicated by uncontrolled pain who is presenting in setting of shortness of breath. ?? Pt reports he was feeling his normal self other than his chronic back when today he developed worsening shortness of breath. Has had mild worsening of his chronic cough with yellow/green sputum and thicker secretions. Went to use albuterol inhaler and realized he had none left. Has not felt he had to use it more frequently over last few days. Also endorses mild epigastric pain.??Denies any fever,chills, night sweats, nausea, vomiting, diarrhea, dysuria. Per EMS, patient was hypoxic in the high70/low 80s on home O2. ?? Of note, patient has care plan in place noting that patient has had uncontrolled pain and recommended to avoid IV dilaudid for non-acute issues. Recommend gabapentin, PO dilaudid with engagement of pain management team. Also has [facility] [id number] [facility] 60 tablets on [facility]/03/23. ?? He was recent discharged on 04/27/23 for acute on chronic hypoxia and treated for COPD exacerbation.There was a concern for adenocarcinoma and seen by thoracic surgery -> imaging fairly unchanged,recommend surveillance in 6 months w. appt scheduled 10/27/23 at 9:30 AM. Also has been on daptomycin for R shoulder septic arthritis w. plan to F/U with [facility]/Pt's ID team at [facility]. ?? On admission, patient afebrile and HDS saturating well on 4L NC. When saw patient, ED put patient on BIPAP more so for his hypercarbic respiratory failure. Labs significant for a leukocytosis of 16.6, Hgb 10.6 (baseline variable, ~8-9), Platelets 234. Electrolytes WNL other than a bicarb of 35 (base line also variable, ~34-38), BUN 24, Cr 0.6. Troponin 39 then 35, pro bnp 114. Objective Assessment and Plan 67 yo M with PMHx of COPD on home 2-3L, tobacco use disorder, CAD, HTN, HLD, hx DVT on eliquis,??anxiety/depression, prior alcohol use disorder, chronic foot ulcers, multiple fractures due to fall complicated by uncontrolled pain who is presenting in setting of shortness of breath. Admitted for COPD exacerbation and management of his chronic hypercarbic respiratory failure. ?? #COPD exacerbation: #Chronic hypercarbic respiratory failure: #Hx of COPD on chronic home O2 2-3L: #Several hospitalized in the past??due to COPD exacerbation ??? Bicarb remains elevated at 35 however per chart review his baseline ranges from 34-38. ??Initially on admission he did have a chest x-ray which did not show any acute cardiopulmonary process. ??He is likely experiencing a COPD exacerbation in the setting of initial hypoxia per EMS, increased sputum production/cough, shortness of breath. ??Patient is noncompliant and actually does still smoke cigarettes??pulmonary was consulted and we appreciate their input, he should be on nocturnal BiPAP??11/01. ??Pulmonary rehab??nurse has been consulted??to help set up??home BiPAP, discussed??the need for noninvasive pressure support ventilation with??Mr. Menon??who suffers from chronic respiratory failure??consequent to severe COPD. ??Due to the severe life- threatening disease state, noninvasive pressure support ventilation NIV is being prescribed today to avoid longer hospital stays and/or repeat??readmission due to breathing related episodes. ??Patient will also need outpatient??sleep study and??further pulmonary work-up.?? He did complete a 5-day course of prednisone??and will be discharged with??1 day of azithromycin to complete a 5- day course.?? Patient will continue his home inhalers and DuoNebs as needed.?? As stated he was seen by pulmonary and they recommended starting Roflumilast to help decrease COPD exacerbations??which has been??sent to patient's pharmacy for pickup.??Patient will need referral for outpatient sleep study.?? At this time the patient is agreeable to discharge to home. ?? #Acute on chronic pain #Hx of septic arthritis of R shoulder #Hx multiple orthopedic surgeries (pt reports fell down 30 flights of stairs at one point and brokehis back) ???Per??care plan in place from??many years ago??- to avoid IV dilaudid for non- acute issues. Recommend gabapentin, PO dilaudid with engagement of pain management team. ??[facility] 4??milligram for 60 tablets on 03/03/2023. ??Orthopedics was consulted and appreciate their input. ??They did initially change his wound VAC, upon discharge his VNA services will be resumed??so that his wound VAC can be changed every Tuesday, Tuesday, Tuesday.?? Infectious disease was also consulted and he was restarted on daptomycin.?? He does follow with [facility].?? On discharge his daptomycin has been discontinued as there was question of??prior to hospitalization his daptomycin was finished on 04/28??and he had already started on the doxycycline.?? Appreciate infectious disease input,??he will be discharged on doxycycline 100 mg twice daily??and continue to follow-up with [facility] for??further care.?? While he was here in the hospital he did have a CT scan of the right shoulder, there was no glenohumeral??joint effusion or periventricular fluid collection, there was some??slightly progressed glenohumeral erosion from previous imaging in October 2022, origin could be chronic or??previous if so??likely osteo, acute osteo could not be excluded.?? Acute pain services was also??consulted and did not recommend any change??to his current regimen.?? He can continue on his home??Dilaudid. ?? #Hyperkalemia;??resolved ??? Potassium slightly high at 5.6, did treat with Lokelma??5 mg with a one-time dose. ??Potassium on day of discharge??was 4.6 ?? #CAD #Hypertension #Hyperlipidemia ?Continue home atorvastatin, metoprolol, aspirin, isosorbide dinitrate, lisinopril ?? #History of DVT ???Continue home apixaban ?? #Anxiety/depression ??? Home duloxetine? Hydroxyzine as needed ?? #IBS/GERD ??? Continue home dicyclomine, loperamide as needed and Protonix ?? Discharge Planning:??Home with??services ? . Physical Exam Vital signs reviewed?? Constitutional:??Older male resting comfortably in bed, cachectic appearing,??alert/awake, cooperative, no apparent??CV or respiratory distress Head:??Atraumatic, normocephalic ENT:??PERRL, moist mucous membranes Neck:??Supple, no tenderness Cardiovascular:??S1 S2, RRR, no murmur Pulm:??Poor air entry throughout, no wheezes, rhonchi, rales. ??No use of accessory muscles?? Abdominal:??Bowel sounds x4 quadrants, soft, NT, ND, no guarding Extremities:??No edema??or tenderness??bilateral lower extremities. ??Wound VAC??right shoulder Neuro:??Alert and oriented x3, moves all extremities spontaneously and independently Skin: Warm/dry, intact Psych:??Pleasant mood, normal affect, not anxious appearing Consultants Infectious disease Orthopedic team Acute pain service Pending Results Blood Gas Arterial ordered on 05/02/2023 Blood Gas Arterial ordered on 05/03/2023 Hold Blue Top Tube ordered on 05/02/2023 Hold Blue Top Tube ordered on 05/02/2023 Follow-Up Appointments Added Follow Up ?Time Frame ?Comments Jose LEE MD, Jorge Tsang?1 to 2 weeks Post Discharge Care Diet: Regular Diet Activity: As tolerated Code Status: ?? Full Resuscitation Prognosis: Good Discharge ?05/06/23 9:49:00 EDT Home Health Face to Face *Denotes mandatory tapia ?? *I certify that this patient is under my care and that I or an allowed non- physician working with me had a face to face encounter with the patient on this date:??05/06/2023 09:59 ?? *The encounter with the patient was in whole, or in part, for the following medical condition, which is the primary diagnosis(es) for home health care:??COPD exacerbation (J44.1) ? *Select the indications for the discipline/s that are being arranged for this patient. Nursing (select all that apply): [_] None [_] Medication management (reconciliation, teaching)?? [x] Chronic disease management?? [x] Wound care and treatment?? [_] Home safety evaluation [_] Administer SQ/IM/IV medications?? [_] Cath care?? [_] Drain care?? [_] Trach or GT care?? Other _ Occupation Therapy (select all that apply): [x] None [_] ADL Management [_] Fall prevention training [_] Energy conservation [_] Cognitive training Other _ Physical Therapy (select all that apply): [x] None [_] Functional mobility training [_] Home exercise program to strengthen [_] Increase ROM?? [_] Falls prevention training [_] Home maintenance program for chronic disease Other _ Speech Therapy (select all that apply): [x] None [_] Swallow evaluation and training [_] Speech and language training [_] Cognitive training to process, organize, and/or recall information Other _ ? *Homebound due to (select all that apply): [x] Inability to leave home without assistance/supervision [x] Inability to ambulate without assistance [_] Pain [x] Decreased strength and endurance [_] Unsteady gait [_] Severe SOB and fatigue [_] Impaired transfers [_] Inability to negotiate stairs [_] Limited weight bearing [_] Mental status change? *Physician Signature: _Azra Lechuga PA-C ?? *By signing this, I certify that I have personally evaluated the patient and agree with the findings and recommendations as documented above. ? Results Discharge Labs BLOOD COUNT & DIFF WBC 10.1 k/mm3 ()?? 05/05/2023 05:46 RBC 3.02 m/mm3 (Low)?? 05/05/2023 05:46 Hgb 8.0 Gm/dL (Low)?? 05/05/2023 05:46 Hct 28.1 % (Low)?? 05/05/2023 05:46 MCV 93.0 femtoliters ()?? 05/05/2023 05:46 MCH 26.5 pg (Low)?? 05/05/2023 05:46 MCHC 28.5 g/dL (Low)?? 05/05/2023 05:46 Platelet Count 180 k/mm3 ()?? 05/05/2023 05:46 RDW-SD 59.7 femtoliters (High)?? 05/05/2023 05:46 MPV 9.9 femtoliters ()?? 05/05/2023 05:46 Nucleated RBC (Automated) 0.0 #/100 WBC'S ()?? 05/05/2023 05:46 Abs. NRBC 0.0 k/mm3 ()?? 05/05/2023 05:46 Abs. Neut 10.7 k/mm3 (High)?? 05/04/2023 01:17 Abs. Lymph 1.6 k/mm3 ()?? 05/04/2023 01:17 Abs. [place] 1.7 k/mm3 (High)?? 05/04/2023 01:17 Abs. Eo 0.1 k/mm3 ()?? 05/04/2023 01:17 Abs. Baso 0.0 k/mm3 ()?? 05/04/2023 01:17 Neut % 74.6 % ()?? 05/04/2023 01:17 Lymph % 10.9 % (Low)?? 05/04/2023 01:17 [place] % 12.2 % (High)?? 05/04/2023 01:17 Eos % 0.6 % ()?? 05/04/2023 01:17 Baso % 0.2 % ()?? 05/04/2023 01:17 Metamyelocyte % 2.0 % ()?? 05/02/2023 08:04 RBC Morphology MODERATE ()?? 05/02/2023 08:04 WBC Morphology MODERATE ()?? 05/02/2023 08:04 Platelet Estimate ADEQUATE ()?? 05/02/2023 08:04 Imm Gran 1.5 % ()?? 05/04/2023 01:17 Abs. Imm Gran 0.2 k/mm3 ()?? 05/04/2023 01:17 ?? BLOOD GAS Specimen Type - Blood Gas VENOUS ()?? 05/02/2023 11:38 pH, Venous 7.25 (Low)?? 05/02/2023 11:38 pCO2, Venous 95 mm Hg (High)?? 05/02/2023 11:38 pO2, Venous <20 mm Hg (Low)?? 05/02/2023 11:38 Bicarbonate, Estimated(Venous) 40 mmol/L (High)?? 05/02/2023 11:38 ? CARDIAC Nt-Probnp 114 pg/mL ()?? 05/02/2023 08:04 High Sensitivity Troponin (HSTnT) 34 ng/L (High)?? 05/02/2023 13:44 ?? CHEM GENERAL Sodium 140 mmol/L ()?? 05/06/2023 00:40 Potassium 4.6 mmol/L ()?? 05/06/2023 00:40 Chloride 97 mmol/L (Low)?? 05/06/2023 00:40 Bicarbonate Level 35 mmol/L (High)?? 05/06/2023 00:40 Anion Gap 8 ()?? 05/06/2023 00:40 Glucose Level 108 mg/dL (High)?? 05/04/2023 01:17 BUN 26 mg/dL (High)?? 05/05/2023 05:51 Creatinine-Blood 0.9 mg/dL ()?? 05/05/2023 05:51 Estimated GFR Creatinine 94 ML/MIN/1.73 M2 ()?? 05/05/2023 05:51 Calcium 8.7 mg/dL ()?? 05/04/2023 01:17 Phosphorus 4.0 mg/dL ()?? 05/04/2023 01:17 Magnesium 1.9 mg/dL ()?? 05/03/2023 05:09 ?? HEME OTHER Hold Lavender Top SPECIMEN DISCARDED AFTER 24 HOURS. ()?? 05/02/2023 13:44 ? MISC. CHEMISTRY Hold Gel Top SPECIMEN DISCARDED AFTER 1 WEEK ()?? 05/02/2023 13:44 ? URINE OTHER Est Creatinine Clearance 67.59 mL/min ()?? 05/05/2023 07:46 ? VIROLOGY COVID-19 by RT-PCR NEGATIVE ()?? 05/02/2023 08:43 ? Microbiology ?? COVID-19 (Novel Coronavirus), Rapid PCR?? Completed?? Source: Nasal Body Site: Nose Collected Dt/Tm: 05/02/2023 08:25 Last Updated Dt/Tm: 05/02/2023 10:05 ?? Imaging(s) ?CT Angio Chest ?? 05/02/2023 23:09??by Diaz AMAYA, Everardo ?IMPRESSION: No evidence of pulmonary embolism. Patulous esophagus with fluid in the lumen and markedly distended stomach increase aspiration risk. Left upper lobe groundglass opacity has gradually increased in size compared to 2020. This could represent an area of scarring but adenocarcinoma in situ is also in the differential diagnosis. Pulmonology follow-up is recommended after resolution of patient's acute illness. ?CT Ext Upper W/ Contrast Right ?? 05/03/2023 22:04??by Coretta AMAYA, Judd Eastman ?IMPRESSION: No glenohumeral joint effusion or periarticular fluid collection. Glenohumeral erosions have progressed slightly since 10/05/2022. Erosions could be due to chronic orprevious episodes of osteomyelitis. Acute osteomyelitis is not excluded by imaging ? Consults(s) ?Consult ?? 05/03/2023 10:38??by Cass Marie MD, Phuc Jin ?Plan ??- We will request outpatient pulmonary rehab ??- Discharge on BPAP for nocturnal use with 12/5 cmH2O settings which can be adjusted based on sleep and outpatient pulmonary studies. ??- Complete 5 day course of Prednisone 40mg ??- Continue Azithromycin 250 mg with stop date of 05/07. ??- Referral for outpatient sleep study ??- Roflumilast 250 mcg once daily for 4 weeks, followed by 500 mcg once daily in addition to his home inhalers to prevent readmission. ??-Inhaler regimen: Incruse Ellipta daily, Albuterol as needed, Symbicort 160- 4.5 2puffs bid. 2. Chronic COPD ?The patient has a history of COPD as outlined above. Based on his last PFTs, he is in Gold Criteria 4, which is defined as very severe COPD with FEV1/FVC < 0.7 and FEV1 < 30% predicted. We discussed smoking cessation which the patient is currently working on. He states that he is down to 1-2 cigarettes a day from 4-5. He was encouraged to attend to his follow-up appointments for management of his COPD. ??Plan ??- See section above 3. Ground glass pulmonary nodule. ??- Seen by thoracic surgery team and plan to f/up in 6 months with thoracic surgery clinic with repeat CT.? Azra Lechuga PA-C 05/06/2023 ?? 35_ minutes spent on discharge * Herbert SHANNON, Jahaira Woods: PERFORM Event Display: Patient Education/Instruction Authored Date: [id number] Inpatient Adult Discharge Instructions [address] [address] Name: ANT MENON : 1955 Visit: 05/02/2023 13:47:00 Current Date: 05/06/2023 11:14 Account: [id number] Inpatient Adult Discharge Instructions We would like to thank you for allowing us to assist you with your healthcare needs. The following includes patient education materials and information regarding your injury/illness. Our entire staffstrives to provide an excellent experience for our patients and their families. PLEASE ENSURE YOU FOLLOW-UP PER THE INSTRUCTIONS BELOW! ?? YOUR OPINION IS IMPORTANT TO US! Please complete the survey you may receive by mail or email. Your feedback will be used to make improvements to the healthcare experiences of our patients and their families. Surveys are administered by [employer] ?? If further treatment with your primary care physician or another doctor is recommended, it is important for you to keep the appointment. Call your primary care physician or return to the Emergency Department immediately if your condition worsens, fails to improve, or new symptoms develop. If you need to find a doctor, you can call [facility] for a referral at [phone] or toll free at [phone] ([phone]) or log in to [email or web address].. ?? You can view and manage your care through the patient portal or by using a health care lore of your choosing. [employer] is a website that allows you to securely view your medical information including your hospital discharge summary, office visit summaries, medications and follow-up visits. You can also request appointments, renew medications, and request access to your medical information using a health care lore of your choosing, or just ask a question. You can enroll at [email or web address] or register during your next office visit. You have been discharged from [facility], Patient Care Unit: D6A. If you have any questions regarding these instructions after you leave, please call us and we will be happy to assist you. [facility] Your Care Team Attending Physician Suzie AMAYA, Vamsi Consulting Providers Cass Marie MD, Phuc Jin; Malini AMAYA, Rodolfo Pereira; Linda AMAYA, Alexis; Angeli AMAYA, Aziza Discharging Providers Ankush JENSEN, Azra Barry Reason for Admission Shortness of breath Your Diagnosis COPD exacerbation Tests Performed Below is a partial list of the tests performed during your hospitalization. You may have had other tests and procedures not included in this list. Please discuss all test results with your provider. Basic Metabolic Panel BUN Calcium Level CBC CBC w/ Differential COVID-19 (Novel Coronavirus), Rapid PCR Creatinine Electrolytes Glucose Level High??Sensitivity??Troponin T HOLD BLUE TUBE?-- Results Pending -- HOLD GEL TUBE HOLD LAVENDER TUBE Magnesium Level Phosphorus Level Potassium Level ProBNP Troponin T, High Sensitivity VBG CT Angio Chest CT Ext Upper W/ Contrast Right XR Chest Portable You will be contacted within 72 hours with your results. Primary Care Provider Jose LEE MD, Jorge Tsang Advance Directive Health Care Proxy on File Yes - Health Care Proxy Yes - MOLST Caregiver Relationship: Son Name of Caregiver: nehemias menon Patient has a Designated Caregiver: Yes Discharge Vitals Temperature: 98.2 DegF Height: 182 cm Pulse Rate: 68 bpm Weight: 58.4 kg Respiratory Rate: 20 br/min Body Mass Index:??17.63 kg/m2??Low Systolic Blood Pressure: 105 mm Hg Body surface area: 1.72 Diastolic Blood Pressure: 65 mm Hg ?? Oxygen Saturation: 97 % ?? Studies Pending All tests and labs ordered during this hospital stay have been completed unless listed below. Please discuss all pending results with your provider listed above in these instructions. ?? Blood Gas Arterial (ABG) Hold Blue Top Tube (HOLD BLUE TUBE) What to do next Instructions From Your Doctor Discharge Orders Diet:??Regular Diet Activity:??As tolerated Code Status:?? Full Resuscitation Prognosis:??Good You Need to Schedule the Following Appointments Follow Up with??Jose LEE MD, Jorge Tsang When:??Within 1 to 2 weeks Where: [address] [facility] [place] [address]- Discharge Medications ANT MENON :1955 Visit Date:05/02/2023 Medications: Please continue your medications until treatment is completed or stopped by your provider. Medications not listed below should be discontinued. Discuss any questions related to medications with your provider. What How Much When Instructions Next Dose New Azithromycin (azithromycin 250 mg oral tablet) 250 Milligram Oral Daily Duration: 1 Days Pickup at [facility]/pharmacy #[id number] 05/07 tomorrow morning at 9am New Doxycycline (doxycycline monohydrate 100 mg oral capsule) 100 Milligram Oral Every 12 hours Duration: 30 Days Pickup at [facility]/pharmacy #[id number] 05/06 tonight at 8pm New roflumilast (roflumilast 500 mcg oral tablet) 1 tab(s) Oral Daily Pickup at [facility]/pharmacy #[id number] 05/07 tomorrow morning at 9am Unchanged Acetaminophen (acetaminophen 325 mg oral tablet) 2 tab(s) Oral Every 4 hours as needed for as needed for fever as needed Unchanged Albuterol (albuterol 0.042% inhalation solution) 3 Milliliter Nebulized inhalation Every 4 hours 05/06 at 1pm Unchanged Albuterol (albuterol 90 mcg/ inh inhalation powder) 2 puff(s) Inhalation Every 4 hours as needed for as needed as needed Unchanged apixaban (Eliquis 5 mg oral tablet) 1 tab(s) Oral Twice a day Duration: 30 Days 05/06 tonight Unchanged Aspirin (aspirin 81 mg oral capsule) 1 capsule Oral Daily 05/07 tomorrow morning Unchanged Atorvastatin (atorvastatin 80 mg oral tablet) 1 tab(s) Oral Daily 05/07 tomorrow morning Unchanged Budesonide-Formoterol (Symbicort 160mcg/ 4.5mcg Inhaler) 2 puff(s) Inhalation Twice a day 05/06 tonight Unchanged Dicyclomine (dicyclomine 10 mg oral capsule) 1 capsule Oral 4 times a day 05/06 at 1pm Unchanged Duloxetine (duloxetine 60 mg oral enteric coated capsule) 1 capsule Oral Twice a day 05/06 tonight Unchanged Gabapentin (gabapentin 300 mg oral capsule) 2 capsule Oral 3 times a day 05/06 at 3pm Unchanged Guaifenesin/ Dextromethorphan (Robitussin DM Liquid) 5 Milliliter Oral Every 6 hours as needed for Cough as needed Unchanged Hydromorphone (HYDROmorphone 4 mg oral tablet) 1 tab(s) Oral Every 4 hours as needed for as needed for pain as needed Unchanged HydrOXYzine (hydrOXYzine hydrochloride 10 mg oral tablet) 1 tab(s) Oral 3 times a day as needed for Anxiety as needed Unchanged Isosorbide Dinitrate (isosorbide dinitrate 30 mg oral tablet) 1 tab(s) Oral Twice a day 05/06 tonight Unchanged Lisinopril (lisinopril 2.5 mg oral tablet) 1 tab(s) Oral Daily 05/07 tomorrow morning Unchanged Loperamide (loperamide 2 mg oral capsule) 1 capsule Oral Every 4 hours as needed for for loose stool as needed Unchanged Melatonin 10 Milligram Oral Daily at Bedtime as needed for as needed for sleep as needed Unchanged Metoprolol (Metoprolol Succinate ER 25 mg oral tablet, extended release) 1 tab(s) Oral Daily 05/07 tomorrow morning Unchanged Pantoprazole (pantoprazole 40 mg oral delayed release tablet) 1 tab(s) Oral Daily 05/07 tomorrow morning Unchanged Thiamine (Vitamin B1 100 mg oral tablet) 1 tab(s) Oral Daily 05/07 tomorrow morning Unchanged umeclidinium (Incruse Ellipta 62.5 mcg/ inh inhalation powder) 1 puff(s) Inhalation Every 24 hours 05/07 tomorrow morning Pharmacy Information [facility]/pharmacy #[id number]: [address], [place] [id number] [phone] ?? What How Much When Comments Stop Taking Midodrine (midodrine 5 mg oral tablet) 2 tab(s) Oral 3 times a day Hold for SBP>110 ?? Stop Taking Miscellaneous Rx (Daptomycin IV) See instructions Daptomycin 350 mg IV every 24 hours as instructed by Dr Gary Gross ?? Test Results Below is a partial list of the most recent Laboratory test results done prior to this discharge. You may have had other tests and procedures not included in this list. Please discuss all test resultswith your provider. Est Creatinine Clearance - 67.59 mL/min (05/05/2023) Basic Metabolic Panel (05/02/2023) ???Sodium - 144 mmol/L???Potassium - 4.5 mmol/L???Chloride - 98 mmol/L???Bicarbonate Level - 35 mmol/L???Anion Gap - 11???Glucose Level - 91 mg/dL???BUN - 24 mg/dL???Creatinine-Blood - 0.6 mg/dL???Estimated GFR Creatinine - 108 ML/MIN/1.73 M2???Calcium - 9.5 mg/dL BUN (05/05/2023) ???BUN - 26 mg/dL Calcium Level (05/04/2023) ???Calcium - 8.7 mg/dL CBC (05/05/2023) ???WBC - 10.1 k/mm3???RBC - 3.02 m/mm3???Hgb - 8.0 Gm/dL???Hct - 28.1 %???MCV - 93.0 femtoliters???MCH - 26.5 pg???MCHC - 28.5 g/dL???Platelet Count - 180 k/mm3???RDW-SD - 59.7 femtoliters???MPV - 9.9 femtoliters???Nucleated RBC (Automated) - 0.0 #/100 WBC'S???Abs. NRBC - 0.0 k/mm3 CBC w/ Differential (05/04/2023) ???WBC - 14.3 k/mm3???RBC - 2.86 m/mm3???Hgb - 7.8 Gm/dL???Hct - 26.2 %???MCV - 91.6 femtoliters???MCH - 27.3 pg???MCHC - 29.8 g/dL???Platelet Count - 188 k/mm3???RDW-SD - 58.5 femtoliters???MPV - 9.2 femtoliters???Nucleated RBC (Automated) - 0.0 #/100 WBC'S???Abs. NRBC - 0.0 k/mm3???Abs. Neut - 10.7 k/mm3???Abs. Lymph - 1.6 k/mm3???Abs. [place] - 1.7 k/mm3???Abs. Eo - 0.1 k/mm3???Abs. Baso - 0.0 k/mm3???Neut % - 74.6 %???Lymph % - 10.9 %???[place] % - 12.2 %???Eos % - 0.6 %???Baso % - 0.2 %???Imm Gran - 1.5 %???Abs. Imm Gran - 0.2 k/mm3 COVID-19 (Novel Coronavirus), Rapid PCR (05/02/2023) ???COVID-19 by RT-PCR - NEGATIVE Creatinine (05/05/2023) ???Creatinine-Blood - 0.9 mg/dL???Estimated GFR Creatinine - 94 ML/MIN/1.73 M2 Electrolytes (05/06/2023) ???Sodium - 140 mmol/L???Potassium - 4.6 mmol/L???Chloride - 97 mmol/L???Bicarbonate Level - 35 mmol/L???Anion Gap - 8 Glucose Level (05/04/2023) ???Glucose Level - 108 mg/dL High??Sensitivity??Troponin T (05/02/2023) ???High Sensitivity Troponin (HSTnT) - 39 ng/L HOLD GEL TUBE (05/02/2023) ???Hold Gel Top - SPECIMEN DISCARDED AFTER 1 WEEK HOLD LAVENDER TUBE (05/02/2023) ???Hold Lavender Top - SPECIMEN DISCARDED AFTER 24 HOURS. Magnesium Level (05/03/2023) ???Magnesium - 1.9 mg/dL Phosphorus Level (05/04/2023) ???Phosphorus - 4.0 mg/dL Potassium Level (05/05/2023) ???Potassium - 5.1 mmol/L ProBNP (05/02/2023) ???Nt-Probnp - 114 pg/mL Troponin T, High Sensitivity (05/02/2023) ???High Sensitivity Troponin (HSTnT) - 34 ng/L VBG (05/02/2023) ???Specimen Type - Blood Gas - VENOUS???pH, Venous - 7.25???pCO2, Venous - 95 mm Hg???pO2, Venous -<20 mm Hg? ?Bicarbonate, Estimated(Venous) - 40 mmol/L Allergies (NKA means No Known Allergies) Toradol??(Morphine allergy, Metaxalone, Naproxen, Cephalexin allergy, hives) Keflex??(rash) Skelaxin??(H/O: migraine) naproxen??(lesions on lips) Problems Active Problems??(24) Anemia?? Anxiety?? CAD?? CAD - Coronary artery disease?? cardiac stents?? Chronic low back pain?? chronic pack pain?? COPD (chronic obstructive pulmonary disease)?? COPD (chronic obstructive pulmonary disease)?? COPD exacerbation?? Deep vein thrombosis (DVT) of left lower extremity?? Drug use disorder, opiate and benzo dependency, narcotic contract?? GERD (gastroesophageal reflux disease)?? History of Alcohol dependency?? HTN (hypertension)?? Hyperlipidemia?? Hyponatremia?? Metabolic alkalosis?? Multiple fractures of ribs?? Old HI (myocardial infarction) X 3?? old Rib fractures, right 3-8?? PVD (peripheral vascular disease)?? Smoking greater than 40 pack years?? Underweight?? Education Materials Below is the list of Educational Leaflet Providered with your Discharge Instructions. Valuables and Belongings I fully understand and agree that [facility] accepts no responsibility for all my personal property including clothing, toilet articles, radios, jewelry, dentures, hearing aids, rings, money, or any other property that is in my possession or is brought to me after admission. I understand certain valuables may be placed in a hospital safe for a short period of time. I understand that the hospital is not liable for loss or damage due to accident, fire, or other natural occurrence while said property is in the safe. I accept full responsibility for any personal property that I keep with me, and will not hold the hospital responsible in case of loss or disappearance. I acknowledge that i have been encouraged to send valuables and belongings home. ?? No Valuables/Belongings: No valuables/belongings present Review of Valuable and Belonging List: With patient, With witness Date for Pt to Sign Valuables/Belongings: 05/03/23 05:20:00 ?? Other Discharge Information ?? Wound Assessment?? Wound Assessment?? Wound Location I: Shoulder, right Wound Type I: Other Wound Type - Outpatient Wound I, Present on Admission: Yes ?? Case Management Discharge Plan?? Discharge Plan?? Discharge Agency Information?? Discharge Level of Care at Discharge: Homehealth/VNA Name of Agency #1: [facility] Discharge Rx Program: Discharge Prescription Program Name of Agency #1: [facility] Discharge Transportation Arranged: [facility] [id number] [phone] Service Categories #1: Physical Therapy, Shelter Mode of Transportation Arranged: Ambulance Service Comments #1: [facility] will resume services with you. If you do not hear fromthem please call the agency at [phone]. Discharge Arranged Transport Date/Time: 05/06/23 12:00:00 Service Categories #2: Oxygen Therapy Discharge VNA/Hospice/Home Care: [facility] ?? Discharge Medical Equipment Companies: [employer] ? Pulmonary Rehab Status?? Pulmonary Rehab Discharge Status?? CPAP/BiPAP Mask Type: Full CPAP/BiPAP Mask Size: Medium Respiratory Rate: 20 br/min Discharge Medical Equipment Companies: [employer] ? Common Emergency Awareness Tips IS IT A STROKE? Act FAST and Check for these signs: FACE Does the face look uneven? ARM Does one arm drift down? SPEECH Does their speech sound strange? TIME Call at any sign of stroke ?? Heart Attack Signs Chest discomfort: Most heart attacks involve discomfort in the center of the chest and lasts more than a few minutes, or goes away and comes back. It can feel like uncomfortable pressure, squeezing, fullness or pain. Discomfort in upper body: Symptoms can include pain or discomfort in one or both arms, back, neck, jaw or stomach. Shortness of breath: With or without discomfort. Other signs: Breaking out in a cold sweat, nausea, or lightheaded. Remember, MINUTES DO MATTER. If you experience any of these heart attack warning signs, call to get immediate medical attention! ?? Smoking can increase your chances of developing chronic health problems and can cause harmful effects to other family members in your house. If you smoke, you are strongly encouraged to quit. Please call [employer] at [phone] or [phone] ([phone]) or log in to [email or web address] for referrals to smoking cessation programs. ?? 968 Suicide & Crisis Lifeline is available 20/06 if you or someone you know needs to find a reason to keep living. By calling 341 you'll be connected to a skilled, trained counselor at a crisis center in your area. INPATIENT DISCHARGE INSTRUCTIONS SIGNATURE PAGE ANT MENON Location:[facility] Registration Date and Time:05/02/2023 13:47 EDT Primary Care Physician: Jose LEE MD, Jorge Tsang, Attending Physician: Suzie AMAYA, Vamsi, I ANT MENON, have received the above patient education materials/instructions and have verbalized understanding. If ambulance or transport services are being used I further acknowledge being given a choice of service. ?? If you need to contact me, please call me at this number: . Patient/Vocational Examiner Name: Patient/Vocational Examiner Signature: Relationship to Patient: Witness Name/Signature: Date: * Jahaira Godinez RN: PERFORM Event Display: Patient Education Leaflets Authored Date: Doxycycline Oral Capsule ?? [id number] Doxycycline Oral Capsule Brands: Adoxa, Mondoxyne, Monodox, Morgidox, Okebo, Vibramycin Uses For treating bacterial infection. ?? Instructions Take the medicine with 250 mL (1 cup) of water. Take on empty stomach - 1 hour before or 2 hours after eating. Sit or stand upright for 30 minutes after taking the medicine. Do not lie down. Keep the medicine at room temperature. Avoid heat and direct light. Do not take any antacid or vitamins with magnesium, calcium, aluminum, or iron for 2 hours before and 2 hours after taking this medicine. This medicine can make you sensitive to the sun. Use sunscreen or protective clothing when in sun. If you forget to take a dose on time, take it as soon as you remember. If it is almost time for thenext dose, do not take the missed dose. Return to your normal schedule. Do not take 2 doses at one time. Drug interactions can change how medicines work or increase risk for side effects. Tell your healthcare providers about all medicines taken. Include prescription and [id number] medicines, vitamins, and herbal medicines. Speak with your doctor or pharmacist before starting or stopping any medicine. Keep using this medicine for the full number of days that it is prescribed. Do not stop the medicine even if you start to feel better. This medicine can cause permanent change in teeth color in children. ?? Cautions Tell your doctor and pharmacist if you ever had an allergic reaction to a medicine. Do not use the medication any more than instructed. Contact your doctor if you notice a change in the amount or darkening of your urine. Please tell your doctor if you have moderate to severe diarrhea while on this medicine. Do not treat the diarrhea with [id number]-hqa-[id number] diarrhea medicine. This medicine passes into breast milk. Ask your doctor before . This medicine can hurt a new baby in the womb. If you become while on this medicine, tell your doctor immediately. Your doctor may switch you to a different medicine. Do not share this medicine with anyone who has not been prescribed this medicine. ?? Side Effects The following is a list of some common side effects from this medicine. Please speak with your doctor about what you should do if you experience these or other side effects. ??? diarrhea ??? nausea and vomiting ??? stomach upset or abdominal pain ??? yeast infection of mouth ??? vaginal itching or yeast infection Call your doctor or get medical help right away if you notice any of these more serious side effects: ??? swelling in the neck or throat ??? difficulty swallowing ??? blurring or changes of vision A few people may have an allergic reaction to this medicine. Symptoms can include difficulty breathing, skin rash, itching, swelling, or severe dizziness. If you notice any of these symptoms, seek medical help quickly. ?? Extra Please speak with your doctor, nurse, or pharmacist if you have any questions about this medicine. ?? [email or web address] IMPORTANT NOTE: This document tells you briefly how to take your medicine, but it does not tell youall there is to know about it. Your doctor or pharmacist may give you other documents about your medicine. Please talk to them if you have any questions. Always follow their advice. There is a more complete description of this medicine available in [place]. Scan this code on your smartphone or tablet or use the web address below. You can also ask your pharmacist for a printout. If you have any questions, please ask your pharmacist. The display and use of this drug information is subject to Terms of Use. Copyright(c) 2022 [employer]. ?? The [employer]. All rights reserved. This information is not intended as a substitute for professional medical care. Always follow your healthcare professional's instructions. ?? * Herbert SHANNON, Jahaira Woods: PERFORM Event Display: Patient Education Leaflets Authored Date: [id number] Roflumilast Oral Tablet ?? [id number] Roflumilast Oral Tablet Brands: Daliresp Uses For chronic lung disease (COPD). ?? Instructions This medicine may be taken with or without food. This medicine will work best if you take it at about the same time every day. Store at room temperature away from heat, light, and moisture. Do not keep in the bathroom. It is important that you keep taking each dose of this medicine on time even if you are feeling well. If you forget to take a dose on time, take it as soon as you remember. If it is almost time for thenext dose, do not take the missed dose. Return to your normal schedule. Do not take 2 doses at one time. Drug interactions can change how medicines work or increase risk for side effects. Tell your healthcare providers about all medicines taken. Include prescription and yrhh-zwa-llnmjrm medicines, vitamins, and herbal medicines. Speak with your doctor or pharmacist before starting or stopping any medicine. Tell your doctor if symptoms do not get better or if they get worse. Keep all appointments for medical exams and tests while on this medicine. ?? Cautions Tell your doctor and pharmacist if you ever had an allergic reaction to a medicine. Some patients taking this medicine have experienced serious side effects. Please speak with your doctor to understand the risks and benefits associated with this medicine. Do not use the medication any more than instructed. Your ability to stay alert or to react quickly may be impaired by this medicine. Do not drive or operate machinery until you know how this medicine will affect you. Please check with your doctor before drinking alcohol while on this medicine. Family should check on the patient often. Call the doctor if patient becomes more depressed, has thoughts of suicide, or shows changes in behavior. Tell the doctor or pharmacist if you are , planning to be , or . Do not share this medicine with anyone who has not been prescribed this medicine. ?? Side Effects The following is a list of some common side effects from this medicine. Please speak with your doctor about what you should do if you experience these or other side effects. ??? diarrhea ??? dizziness ??? headaches ??? weight loss Call your doctor or get medical help right away if you notice any of these more serious side effects: ??? agitated feeling or trouble sleeping ??? depression or feeling sad ??? fast or irregular heart beats ??? nervousness ??? shakiness ??? suicidal thoughts ??? unexpected or extreme weight loss A few people may have an allergic reaction to this medicine. Symptoms can include difficulty breathing, skin rash, itching, swelling, or severe dizziness. If you notice any of these symptoms, seek medical help quickly. ?? Extra Please speak with your doctor, nurse, or pharmacist if you have any questions about this medicine. ?? [email or web address] IMPORTANT NOTE: This document tells you briefly how to take your medicine, but it does not tell youall there is to know about it. Your doctor or pharmacist may give you other documents about your medicine. Please talk to them if you have any questions. Always follow their advice. There is a more complete description of this medicine available in [place]. Scan this code on your smartphone or tablet or use the web address below. You can also ask your pharmacist for a printout. If you have any questions, please ask your pharmacist. The display and use of this drug information is subject to Terms of Use. Copyright(c) 2022 [employer]. ?? [employer]. All rights reserved. This information is not intended as a substitute for professional medical care. Always follow your healthcare professional's instructions. ?? * Herbert SHANNON, Jahaira Woods: PERFORM Event Display: Patient Education Leaflets Authored Date: Roflumilast Oral Tablet ?? [id number] Roflumilast Oral Tablet Brands: [employer] Uses For chronic lung disease (COPD). ?? Instructions This medicine may be taken with or without food. This medicine will work best if you take it at about the same time every day. Store at room temperature away from heat, light, and moisture. Do not keep in the bathroom. It is important that you keep taking each dose of this medicine on time even if you are feeling well. If you forget to take a dose on time, take it as soon as you remember. If it is almost time for thenext dose, do not take the missed dose. Return to your normal schedule. Do not take 2 doses at one time. Drug interactions can change how medicines work or increase risk for side effects. Tell your healthcare providers about all medicines taken. Include prescription and ntjx-poa-itacigf medicines, vitamins, and herbal medicines. Speak with your doctor or pharmacist before starting or stopping any medicine. Tell your doctor if symptoms do not get better or if they get worse. Keep all appointments for medical exams and tests while on this medicine. ?? Cautions Tell your doctor and pharmacist if you ever had an allergic reaction to a medicine. Some patients taking this medicine have experienced serious side effects. Please speak with your doctor to understand the risks and benefits associated with this medicine. Do not use the medication any more than instructed. Your ability to stay alert or to react quickly may be impaired by this medicine. Do not drive or operate machinery until you know how this medicine will affect you. Please check with your doctor before drinking alcohol while on this medicine. Family should check on the patient often. Call the doctor if patient becomes more depressed, has thoughts of suicide, or shows changes in behavior. Tell the doctor or pharmacist if you are , planning to be , or . Do not share this medicine with anyone who has not been prescribed this medicine. ?? Side Effects The following is a list of some common side effects from this medicine. Please speak with your doctor about what you should do if you experience these or other side effects. ??? diarrhea ??? dizziness ??? headaches ??? weight loss Call your doctor or get medical help right away if you notice any of these more serious side effects: ??? agitated feeling or trouble sleeping ??? depression or feeling sad ??? fast or irregular heart beats ??? nervousness ??? shakiness ??? suicidal thoughts ??? unexpected or extreme weight loss A few people may have an allergic reaction to this medicine. Symptoms can include difficulty breathing, skin rash, itching, swelling, or severe dizziness. If you notice any of these symptoms, seek medical help quickly. ?? Extra Please speak with your doctor, nurse, or pharmacist if you have any questions about this medicine. ?? [email or web address] IMPORTANT NOTE: This document tells you briefly how to take your medicine, but it does not tell youall there is to know about it. Your doctor or pharmacist may give you other documents about your medicine. Please talk to them if you have any questions. Always follow their advice. There is a more complete description of this medicine available in [place]. Scan this code on your smartphone or tablet or use the web address below. You can also ask your pharmacist for a printout. If you have any questions, please ask your pharmacist. The display and use of this drug information is subject to Terms of Use. Copyright(c) 2022 [employer]. ?? [employer]. All rights reserved. This information is not intended as a substitute for professional medical care. Always follow your healthcare professional's instructions. ?? CTA Chest vessels W contrast IV * VIDYASPmeghanrirubén , DOLORES S: MIRTHA Perales MD, Everardo: VERIFY Event Display: Result: Authored Date: EXAMINATION: CT Angio Chest INDICATION: Acute on chronic respiratory failure. Reason: Other:; PE Suspected, Intermediate Prob, Positive D-Dimer; Clinical Question(s): Pulmonary Embolism; Order Comment: TECHNIQUE: Spiral CTA of the chest was performed after rapid IV contrast administration without cardiac gating, triggered by an BALJINDER on the main pulmonary artery. Images are formatted in multiple planes using 2-D multiplanar and 3-D maximum intensity projection. 60 cc of Omnipaque 300 was administered intravenously. Weight-based protocol using automatic tube modulation was used to optimize exposure parameters. CTDIvol Body: 7.47 mGy, DLP Body: 342 mGy*cm. COMPARISONS: 04/20/2023. ANGIOGRAPHIC FINDINGS: Evaluation is mildly limited by incomplete opacification of the left lower lobe pulmonary arteries with contrast. No pulmonary embolism to the subsegmental level. Normal caliber pulmonary arteries. No acute aortic abnormality seen on this study performed without cardiac gating. NON-ANGIOGRAPHIC FINDINGS: Insole Reinforcer View Findings, Lines and Tubes: None. Trachea and Airways: Patent without evidence of tracheal or endobronchial lesion. Lungs and Pleura: Severe centrilobular emphysema. Unchanged 4 x 2 x 2.5 cm groundglass opacity in the left upper lobe, stable since the most recent CT but increased in size from 3.1 cm on 10/31/2021. No effusion or pneumothorax. Mediastinum and sivan: No mass or hematoma. No mediastinal or hilar lymphadenopathy. Esophagus is patulous with fluid in the lumen. Heart: Heart is normal in size. No pericardial effusion. Chest Wall Soft Tissues: Normal. Diaphragm and upper abdomen: Stomach is markedly distended. Bones: No acute abnormality. Multiple chronic compression fractures in the thoracic and visualized lumbar spine without significant interval change. Chronic appearing deformity of the partially imaged right distal clavicle prior right posterior seventh through ninth rib fixation with hardware in place. Chronic healed left lateral rib fractures. IMPRESSION: No evidence of pulmonary embolism. Patulous esophagus with fluid in the lumen and markedly distended stomach increase aspiration risk. Left upper lobe groundglass opacity has gradually increased in size compared to 2020. This could represent an area of scarring but adenocarcinoma in situ is also in the differential diagnosis. Pulmonology follow-up is recommended after resolution of patient's acute illness. An actionable message (Yellow) has been communicated via the [employer] system on 05/02/2023 11:34 PM, Message ID [id number]. WSN: [id number] Ordering Physician: Stella Khan Dictated By: Everardo Perales MD Dictated Date/Time: 05/02/23 11:34 p Reviewed By: Everardo Perales MD Signed By: Everardo Perales MD Signed Date/Time: 05/02/23 11:34 pm Transcribed By: BERENICE Transcribed Date/Time: 05/02/23 11:[address] Upper extremity W contrast IV * [facility]SP[facility]erscribe DOLORES S: TRANSCRIBE Judd Hitchcock MD P: VERIFY Event Display: Result: Authored Date: [id number] CT Ext Upper W/ Contrast Right Reason: Infection; Clinical Question(s): Shoulder; Special Instructions: right shoulder septic arthritis; Order Comment: TECHNIQUE: Helical CT with contrast formatted in 3 planes. 100 cc of Omnipaque 300 was administeredintravenously. Weight-based protocol using automatic tube modulation was used to optimize exposure parameters. CTDIvol Body: 6.70 mGy, DLP Body: 182 mGy*cm. COMPARISONS: CTA 05/02/2023. CT 10/05/2022. CT 09/20/2022 FINDINGS: No evidence of joint effusion or focal fluid collection. Articular surface erosions within the humeral head and posterior aspect of the glenoid have progressed slightly since 10/05/2022 Partially imaged upper thoracic spine compression fractures are unchanged. Stable high riding humeral head, narrowed acromiohumeral interval and undersurface scalloping of the acromion process is consistent with chronic rotator cuff tear. IMPRESSION: No glenohumeral joint effusion or periarticular fluid collection. Glenohumeral erosions have progressed slightly since 10/05/2022. Erosions could be due to chronic orprevious episodes of osteomyelitis. Acute osteomyelitis is not excluded by imaging WSN: [id number] Ordering Physician: Mando Randhawa Dictated By: Judd Hitchcock MD Dictated Date/Time: 05/04/23 9:36 am Reviewed By: Judd Hitchcock MD Signed By: Judd Hitchcock MD Signed Date/Time: 05/04/23 9:36 am Transcribed By: BERENICE Transcribed Date/Time: 05/04/23 9:16 am Portable XR Chest Views * [facility] , CIS S: TRANSCRIBE Mary Bella MD: VERIFY Event Display: Result: Authored Date: [id number] Examination: Portable chest performed on 05/02/2023. History: Shortness of breath. Findings: A frontal view of the chest is compared to a prior study dated 04/23/2023. The cardiac and mediastinal silhouettes are within normal limits. The lungs are clear. Right rib fixation hardware is noted. Deformity of the right AC joint is likely secondary to prior trauma. IMPRESSION: There is no acute cardiopulmonary disease. WSN: [id number] Ordering Physician: Tayler Villalobos Dictated By: Mary Bella MD Dictated Date/Time: 05/02/23 8:18 am Reviewed By: Mary Bella MD Signed By: Mary Bella MD Signed Date/Time: 05/02/23 8:18 am Transcribed By: BERENICE Transcribed Date/Time: 05/02/23 8:16 am Patient Care team information Care Team Personnel Name: Glo Camarena RN Position: [facility] RN Member Role: Primary Care Nurse Name: Fatimah Bennett RN Position: [facility] RN Member Role: Primary Care Nurse Name: Mariely Hardy RN Position: [facility] RN Member Role: Primary Care Nurse Name: Marleen Uriarte RN Position: [facility] RN Member Role: Primary Care Nurse Name: Sydney Zelaya Position: [facility] AMB Office Staff Member Role: Lifetime Consulting Physician Name: Judd Barahona RN Position: [facility] RN Member Role: Primary Care Nurse Name: Mag Harry RN Position: [facility] RN Member Role: Primary Care Nurse Name: An Blount RN Position: [facility] RN Supv Member Role: Primary Care Nurse Name: Rebecca Whitley RN Position: [facility] RN Member Role: Primary Care Nurse Name: Marianna Ng RN Position: [facility] SN RN Member Role: Primary Care Nurse Name: Avani Odell RN Position: [facility] RN Member Role: Primary Care Nurse Name: Lisbet Hickman RN Position: [facility] RN Member Role: Primary Care Nurse Name: Ruben Bello RN Position: [facility] RN Member Role: Primary Care Nurse Name: Araceli Simon RN Position: [facility] RN Member Role: Primary Care Nurse Name: Moni Dugan RN Position: [facility] RN Member Role: Primary Care Nurse Name: Jorge Garcia III, MD Position: Reference Physician Member Role: PCP Address: Address: [address] [place] [address] Name: Misty Nguyen RN Position: [facility] RN Member Role: Primary Care Nurse Name: Joyce Cobb Position: [facility] RN Member Role: Primary Care Nurse Name: Sarwat Aj RN Position: [facility] RN Member Role: Primary Care Nurse Name: César Patel RN Position: [facility] RN Member Role: Primary Care Nurse Name: Cassi Batista RN Position: [facility] RN Member Role: Primary Care Nurse Name: Daija Huitron RN Position: [facility] RN Member Role: Primary Care Nurse Name: Ellis Mayfield RN Position: [facility] RN Supv Member Role: Primary Care Nurse Name: Ayah Robison RN Position: [facility] RN Member Role: Primary Care Nurse Name: Radha Moreno RN Position: [facility] RN Member Role: Primary Care Nurse Name: Jina Smalls RN Position: [facility] RN Member Role: Primary Care Nurse Name: Laura Clements RN Position: [facility] RN Member Role: Primary Care Nurse Name: Colette Syed RN Position: [facility] RN Member Role: Primary Care Nurse Name: Muriel Daley RN Position: [facility] RN Supv Member Role: Primary Care Nurse Name: Judith Rojas LPN Position: [facility] RN Member Role: Primary Care Nurse Name: Zohreh Pink RN Position: [facility] RN Member Role: Primary Care Nurse Name: Sophie Berrios RN Position: [facility] RN Member Role: Primary Care Nurse Name: Grisel Mcgowan RN Position: [facility] RN Member Role: Primary Care Nurse Name: Uyen Mitchell RN Position: [facility] RN Member Role: Primary Care Nurse Name: Nasra Smith NP Position: Reference Physician Member Role: Primary Care Nurse Address: Address: [address] [place], [place] [address] Name: Silas Knox RN Position: [facility] RN Member Role: Primary Care Nurse Name: Elham Lee RN Position: [facility] AMB Nurse Member Role: Primary Care Nurse Name: Dariana Mariee RN Position: [facility] RN Member Role: Primary Care Nurse Name: Ana María Cat RN Position: [facility] RN Member Role: Primary Care Nurse Name: Janet Pacheco RN Position: [facility] RN Member Role: Primary Care Nurse Name: Flor Holley Position: [facility] RN Member Role: Primary Care Nurse Name: Bret Aguirre RN Position: [facility] RN Member Role: Primary Care Nurse Name: Ghazal Moreno Position: [facility] RN Member Role: Primary Care Nurse Name: Audra Martinez RN Position: [facility] RN Member Role: Primary Care Nurse Name: Shahbaz Bobo RN Position: [facility] RN Member Role: Primary Care Nurse Name: Jennifer Yin LPN Position: [facility] RN Member Role: Primary Care Nurse Name: Alina Arce RN Position: [facility] RN Member Role: Primary Care Nurse Name: Judi Krueger RN Position: [facility] RN Member Role: Primary Care Nurse Name: Kasia Lund RN Position: [facility] RN Member Role: Primary Care Nurse Name: Radha Masterson RN Position: [facility] RN Member Role: Primary Care Nurse Name: Landy Villarreal RN Position: [facility] RN Member Role: Primary Care Nurse Name: Adria Bell RN Position: [facility] RN Member Role: Primary Care Nurse Name: Amy Larios RN Position: [facility] RN Member Role: Primary Care Nurse Name: Indira Lindsey RN Position: [facility] SN RN Member Role: Primary Care Nurse Name: Rosa Elena Pope RN Position: [facility] RN Member Role: Primary Care Nurse Name: Florentino Garcia RN Position: [facility] RN Member Role: Primary Care Nurse Name: Cristel Moreno RN Position: [facility] SN RN Member Role: Primary Care Nurse Name: Rosa Elena De León RN Position: [facility] Hospital Peritoneal Dialysis Registered Nurse Member Role: Primary Care Nurse Name: Judi Hamilton RN Position: [facility] RN Member Role: Primary Care Nurse Name: Tulio Pina RN Position: [facility] RN Member Role: Primary Care Nurse Name: Maximiliano Claros RN Position: [facility] RN Member Role: Primary Care Nurse Name: Narda Barnes RN Position: [facility] RN Member Role: Primary Care Nurse Name: Zoë Cisse RN Position: [facility] RN Member Role: Primary Care Nurse Name: Pat Bowers RN Position: [facility] SN RN Member Role: Primary Care Nurse Name: Ruy Salcido RN Position: [facility] RN Member Role: Primary Care Nurse Name: Hilaria Aparicio RN Position: [facility] RN Member Role: Primary Care Nurse Name: Carly Rosado RN Position: [facility] RN Supv Member Role: Primary Care Nurse Name: Taryn Rosado RN Position: [facility] RN Member Role: Primary Care Nurse Name: Sydney Rosado RN Position: [facility] RN Member Role: Primary Care Nurse Name: Uriel Dumont Position: [facility] RN Member Role: Primary Care Nurse Name: Selene Vazquez RN Position: [facility] RN Member Role: Primary Care Nurse Name: Dariana Becerra RN Position: [facility] RN Member Role: Primary Care Nurse Name: Leyla Verma LPN Position: [facility] RN Member Role: Primary Care Nurse Name: Rody Mays RN Position: [facility] RN Member Role: Primary Care Nurse Name: Marielos Mixon RN Position: [facility] RN Member Role: Primary Care Nurse Name: Radha Flores RN Position: [facility] RN Member Role: Primary Care Nurse Name: Rose Kyle RN Position: [facility] Hospital Peritoneal Dialysis Registered Nurse Member Role: Primary Care Nurse Name: Aimee Salamanca RN Position: [facility] RN Member Role: Primary Care Nurse Name: Jacobo Caceres Position: [facility] RN Member Role: Primary Care Nurse Name: Savanna PINK Attending Position: [facility] ED Medicine MD Name: Tiffany Woody RN Position: [facility] ED RN W/OE and Tasks Member Role: Patient Care Provider Name: Ally Jang Position: [facility] ED TA [facility] Member Role: Patient Care Provider Care Team Related Persons Name: STEVENSON HAMM Address: home [address] [address] Name: MELINA MENON Address: [place] [address] Name: GARRY MNEON Address: home [address] [place] [id number] Name: BRIEN LANCASTER Address: home [address] [place] [id number]
--- OUTSIDE RECORDS SUMMARY | 2023-08-15 20:22 | XMS_ITS | Continuity of Care Document ---
Author Name Unknown Organization [facility] ter Address [address] [place] [address]- Care Team Providers Care Manager Hvac Name Role Phone Jose LEE MD, Jorge Tsang Primary Care Physician Encounter [facility] [place] Date(s): 07/02/22 - 07/05/[address] [address]- Encounter Diagnosis General medical exam(Final) - 07/02/22 COPD exacerbation(Final) - 07/02/22 Shortness of breath(Final) - 07/02/22 Discharge Disposition: A-D/C Home Attending Physician: Rowan Layne MD Admitting Physician: Syd Gustafson DO Referring Physician: Not on Staff, Referring MD [...] opioid drug. Start Date: 07/02/22 Status: Ordered dicyclomine 10 mg oral capsule 1 capsule = 10 mg, By Mouth, 4 times a day, # 40 capsule, 0 Refills, Maintenance, 07/03/22 0:09:00 EDT, Capsule, Partial fill upon patient request if the prescription is for a schedule II opioid drug. Start Date: 07/03/22 Stop Date: 07/13/22 Status: Ordered Duloxetine By Mouth, 0 Refills, Maintenance, 07/03/22 0:08:00 EDT, Partial [...] Mouth, Every 4 hours, PRN for cough, # 600 mL, 0 Refills, Maintenance, 07/03/22 0:05:00 EDT, Liquid, Partial fill upon patient request if the prescription is for a schedule II opioid drug. Start Date: 07/03/22 Status: Ordered HYDROmorphone 2 mg oral tablet 2 mg, Tablet, By Mouth, Every 4 hours, PRN for Pain , Severe, Routine, 07/02/22 19:43:00 EDT Start Date: 07/02/22 Stop Date: 07/09/22 Status: Ordered HYDROmorphone 2 mg oral tablet 1 tablet = 2 mg, By Mouth, Every 6 hours, PRN Pain , Severe, for 3 days, # 12 tablet, 0 Refills, Acute 07/08/22 22:44:00 EDT, 07/05/22 22:44:00 EDT, Tablet, Partial fill upon patient request if the prescription is for a schedule II opioid drug. Start Date: 07/05/22 Stop Date: 07/08/22 Status: Ordered Incruse Ellipta 62.5 mcg/inh inhalation [...] EVERY DAY Start Date: 07/02/22 Status: Ordered lisinopril 5 mg oral tablet 2.5 mg, Tablet, By Mouth, 07/05/22 10:51:00 EDT Start Date: 07/05/22 Stop Date: 07/05/22 Status: Completed metoprolol 25 mg oral tablet, extended release 25 mg, XL Tablet, By Mouth, 07/05/22 9:00:00 EDT Start Date: 07/05/22 Stop Date: 07/05/22 Status: Completed Metoprolol Succinate ER 25 mg oral tablet, extended release TAKE 1 TABLET BY MOUTH EVERY DAY Start Date: 07/02/22 Status: Ordered nicotine 14 mg/24 hr transdermal film, extended release 1 patch, Topically, Daily, # 30 patch, 0 Refills, Acute 08/05/22 12:00:00 EDT, 07/05/22 13:32:00 EDT, Patch, Partial fill upon patient request if the prescription is for a schedule II opioid drug. Start Date: 07/05/22 Stop Date: 08/05/22 Status: Ordered pantoprazole 40 mg oral delayed release tablet TAKE 1 TABLET BY MOUTH TWICE A DAY FOR 30 DAYS Start Date: 07/02/22 Status: Ordered predniSONE 20 mg oral tablet 2 tablet = 40 mg, By Mouth, Daily, 0 Refills, Maintenance, 07/05/22 13:35:00 EDT, Tablet, Partial fill upon patient request if the prescription is for a schedule II opioid drug. Start Date: 07/05/22 Stop Date: 07/08/22 Status: Ordered Symbicort 160mcg/4.5mcg Inhaler INHALE 2 [...] Date: 07/03/22 Stop Date: 07/10/22 Status: Ordered Problem List Condition Effective Dates Status Health Status Inform ant Underweight(Confirmed) Active Results Orders for Microbiology Reports Name Date Blood Culture 07/02/22 Blood Culture #2 07/02/22 Microbiology Reports TEST:Blood Culture, Second Order STATUS:Unauthenticated BODY SITE: SOURCE:Blood COLLECTED DATE/TIME:07/02/22 9:55 AM Blood Culture, Second Order SPECIMEN DESCRIPTION : BLOOD R HAND SPECIAL REQUESTS : NONE CULTURE : NO GROWTH AFTER 48 HOURS REPORT STATUS : PRELIMINARY REPORT TEST:Blood Culture STATUS:Unauthenticated BODY SITE: SOURCE:Blood COLLECTED DATE/TIME:07/02/22 9:03 AM Blood Culture SPECIMEN DESCRIPTION : BLOOD R HAND SPECIAL REQUESTS : NONE CULTURE : NO GROWTH AFTER 48 HOURS REPORT STATUS : PRELIMINARY REPORT Radiology Reports * Exam Date Time Procedure Performing Provider Status 07/02/22 9:30 AM Chest Portable Carly Ibarra; Auth (V erified) Notes: (Chest Portable) Reason For Exam: Shortness of Breath RESULT: Chest Portable Chest Portable Reason: Shortness of Breath; Clinical Question(s): CHF COMPARISON: None. FINDINGS: LINES AND TUBES: None. LUNGS AND PLEURA: Clear lungs. Normal pulmonary vascularity. No pleural effusion. There is hyperinflation. There is no pneumothorax. HEART, MEDIASTINUM AND MAMADOU: Heart is normal in size. Aorta is tortuous and unfolded. BONES AND SOFT TISSUES: There are fixation devices present in 3 of the right-sided ribs. There has been extensive old trauma to the distal right clavicle. There are healed left-sided rib fractures. There is an old compression fracture one of the lower thoracic vertebral bodies. IMPRESSION: No acute abnormality. WSN: [id number] Ordering Physician: Kelly Valiente Dictated By: Talon Cruz MD Dictated Date/Time: 07/02/22 9:39 am Reviewed By: Talon Cruz MD Signed By: Talon Cruz MD Signed Date/Time: 07/02/22 9:39 am Transcribed By: BERENICE Transcribed Date/Time: 07/02/22 9:36 am Vital Signs Most recent to oldest [Reference Range]: 1 2 3 Height 183 cm (07/05/22 11:14 AM) 183 cm (07/05/22 7:30 AM) 183 cm (07/04/22 11:30 AM) Weight 57.1 kg (07/02/22 7:17 PM) Oxygen Saturation [94-100 %] 99 % (07/05/22 11:14 AM) 99 % (07/05/22 7:30 AM) 95 % (07/05/22 4:00 AM) Pulse Rate [55-90 bpm] 94 bpm *H* (07/05/22 11:14 AM) 87 bpm (07/05/22 8:14 AM) 87 bpm (07/05/22 7:30 AM) Body Mass Index [18.5-24.99] 17.05 *L* (07/02/22 7:17 PM) Blood Pressure [90-138/55-84 mm Hg] 131/82mm Hg (07/05/22 12:20 PM) 109/75mm Hg (07/05/22 11:14 AM) 117/72mm Hg (07/05/22 8:14 AM) Respiratory Rate [16-30 br/min] 18 br/min (07/05/22 1:20 PM) 18 br/min (07/05/22 12:20 PM) 20 br/min (07/05/22 11:49 AM) Temperature [96.8-100.4 DegF] 97.6 DegF (07/05/22 11:14 AM) 98.0 DegF (07/05/22 7:30 AM) 98.0 DegF (07/05/22 4:00 AM) Liters per Minute 2 L/min (07/05/22 11:14 AM) 3 L/min (07/05/22 7:30 AM) 4 L/min (07/05/22 4:00 AM) Mode of Delivery (Oxygen) Nasal cannula (07/05/22 11:14 AM) Nasal cannula (07/05/22 7:30 AM) Nasal cannula (07/05/22 4:00 AM) Blood pressure sites Arm, left (07/05/22 11:14 AM) Arm, left (07/05/22 7:30 AM) Arm, left (07/05/22 4:00 AM) Temperature Route Oral (07/05/22 11:14 AM) Oral (07/05/22 7:30 AM) Oral (07/05/22 4:00 AM) Dry Weight 57.1 kg (07/02/22 7:17 PM)
--- OUTSIDE RECORDS SUMMARY | 2023-08-15 20:22 | XMS_ITS | Continuity of Care Document ---
Author Name Unknown Organization [facility] Address [address] [place] [id number]- Care Team Providers Care Tierce Filler Name Role Phone Jose LEE MD, Jorge Tsang Primary Care Physician Encounter [facility] [place] Date(s): 08/13/20 - 09/12/20 [facility] [address] [place] [address]- [facility] Attending Physician: Anabel Mendosa Admitting Physician: AdmtrAnabel Referring Physician: Admtr, Anabel Allergies, Adverse Reactions, Alerts Substance Reaction Severity Status naproxen lesions on lips Active morphine itch Active Toradol hives Active Skelaxin H/O: migraine Active Keflex rash Active Immunizations Given and [...] 16:44:00 EDT, Aerosol, Route to Pharmacy Electronically, [id number], [facility]/pharmacy #[id number], 182, cm, 05/26/20 16:01:00 E... [...] each,6 Refills, Maintenance, 08/13/20 16:33:00 EDT, Powder, [facility]/pharmacy #[id number], 182, cm, 05/26/20 16:01:00 EDT, [...] tablet, 11 Refills, Maintenance, 05/15/20 13:53:00 EDT, [facility]/pharmacy #[id number], 182, cm, 05/15/20 13:20:00 EDT, [...] 6, 03/31/07 11:15:26, Print MARTIN Number, [facility], [address] [place] [address], [id number], Constant Indicator Start Date: 03/31/07 Stop Date: [...] Multiple fractures of ribs(Confirmed) 01/06/11 Active Old GA (myocardial infarctio n) X 3(Confirmed) Active PVD (peripheral vascular disease)(Confirmed) Active 1Cardiac stents 1991, 1995 Social History Social History Type Response Tobacco Use: Former smoker.. Sex Male
--- OUTSIDE RECORDS SUMMARY | 2023-08-15 20:22 | XMS_ITS | Continuity of Care Document ---
Author Name Unknown Organization [facility] ter Address [address] [place] [id number]- Care Team Providers Care Equipment Lead Name Role Phone Not on Staff, PCP Primary Care Physician Unavail able Encounter [facility] Date(s): 05/21/23 - 06/26/[address] [id number] Attending Physician: Vinnie Hawthorne MD Admitting Physician: Vinnie Hawthorne MD Referring Physician: Jayson Mcallister MD Allergies, Adverse Reactions, Alerts Substance Reaction [...] virus vaccine, inactivated 1 10/14/06 Gi rox [id number] 12y+ bivalent booster vax 08/23/22 Recorded SARS-CoV-2 [...] opioid drug. Start Date: 07/03/22 Status: Ordered atorvastatin 80 mg oral tablet 1 tablet = 80 mg, By Mouth, Daily, 0 Refills, Maintenance, 07/02/22 19:11:00 EDT, Tablet, Partial fill upon patient request if the prescription is for a schedule II opioid drug. Start Date: 07/02/22 Status: Ordered Minetto Saline 0.65% nasal gel 1 sprays, Nares, Both, 4 times a day, # 22.5 Gm, 0 Refills, Maintenance, 05/12/23 15:41:00 EDT, [id number], Partial fill upon patient request if the prescription is for a schedule II opioid drug., 1 sprays Nares, Both 4 times a day, 183, cm, 0... Start Date: 05/12/23 Status: Ordered collagenase topical 250 u/gm ointment See Instructions, Use over right shoulder wound daily, # 90 Gm, 0 Refills, Maintenance, 06/04/23 11:59:00 EDT, Ointment, [id number], Partial fill upon patient request if the prescription is for a schedule II opioid drug., Use over right should... Start Date: 06/04/23 Status: Ordered dicyclomine 10 mg oral capsule 1 capsule = 10 mg, By Mouth, 4 times a day, 0 Refills, Maintenance, 04/27/22 20:45:00 EDT, Partial fill upon patient request if the prescription is for a schedule II opioid drug. Start Date: 04/27/22 Status: Ordered duloxetine 60 mg oral enteric [...] 5 Refills, Maintenance, 04/27/23 13:54:00 EDT, Tablet, [facility], Partial fill upon patient request if the prescription is for a schedule II opioid drug., 183, cm, 04/27/23 7:05:00... Start Date: 04/27/23 Stop Date: 10/24/23 Status: Ordered ferrous sulfate 325 mg oral enteric coated tablet 325 mg, 1, tablet, By Mouth, Daily, # 30 tablet, Refills 1, Tot. Refills 1, Maintenance, 06/04/23 12:19:00 EDT, Route to Pharmacy Electronically, [facility] #[id number], Partial fill upon patient requestif the prescription is for a schedule II opioid rosario... Start Date: 06/04/23 Status: Ordered gabapentin 300 mg oral capsule [...] opioid drug. Start Date: 04/20/23 Status: Ordered loperamide 2 mg oral capsule 2 mg, 1, capsule, By Mouth, Every 6 hours, PRN, # 30 capsule, Refills 0, Tot. Refills 0, Maintenance, for loose stool, 06/04/23 11:59:00 EDT, Route to Pharmacy Electronically, [facility]/pharmacy #[id number], Partial fill upon patient request if the prescription i... Start Date: 06/04/23 Status: Ordered Melatonin = 10 mg, By [...] opioid drug. Start Date: 04/27/22 Status: Ordered Narcan 4 mg/0.1 mL nasal spray See Instructions, If concern for opioid overdose. Gently insert the tip of the nozzle into one nostril, until your fingers on either side of the nozzle are against the bottom of the person's nose. Press the plunger firmly to give the dose of NARCAN Na... Start Date: 05/12/23 Status: Ordered pantoprazole 40 mg oral delayed release tablet 1 tablet = 40 mg, By Mouth, Daily Start Date: 07/02/22 Status: Ordered predniSONE 5 mg oral tablet 3 tablet = 15 mg, By Mouth, Daily, 15 mg daily maintanence dose after the initial taper, # 90 tablet, 0 Refills, Maintenance, 06/08/23 13:43:00 EDT, Tablet, [facility]/pharmacy #[id number], Partial fill upon patient request if the prescription is for a schedule II... Start Date: 06/08/23 Stop Date: 07/08/23 Status: Ordered Protonix 40 mg oral delayed release tablet 1 tablet = 40 mg, By Mouth, Daily, # 30 tablet, 2 Refills, Maintenance, 06/04/23 12:13:00 EDT, EC Tablet, 183, cm, 06/04/23 4:47:00 EDT, Height, 56.4, kg, 05/30/23 22:21:00 EDT, Dry Weight Start Date: 06/04/23 Status: Ordered Robitussin DM Liquid 5 mL, [...] EDT, Height,... Start Date: 05/06/23 Status: Ordered sodium chloride 0.65% nasal spray 1 sprays, Nares, Both, 5 times a day, dryness, # 1 each, 0 Refills, Maintenance, 05/12/23 15:40:00 EDT, Nas[place], [id number], Partial fill upon patient request if the prescription is for aschedule II opioid drug., 1 sprays Nares, Both 5 ti... Start Date: 05/12/23 Status: Ordered sulfamethoxazole-trimethoprim 800 mg-160 mg oral tablet = 160 mg, By Mouth, 2 times a day, for 30 days, drink plenty of fluids; followup with Ortho and ID before this is completed, to discuss long-term plan. May need further weeks of antibiotics., # 60 each, 0 Refills, Acute 07/21/23 12:54:00 EDT, ... Start Date: 06/21/23 Stop Date: 07/21/23 Status: Ordered Symbicort 160mcg/4.5mcg Inhaler 2, puffs, [...] Active Anemia Confirmed Active Anxiety Confirmed Active Epistaxis Confirmed Active Pulmonary cachexia due to COPD Confirmed Active CAD - Coronary artery disease [...] fractures of ribs Confirmed 01/06/11 Active Old RI (myocardial infarction) X 3 Confirmed Active PVD (peripheral vascular disease) Confirmed Active Tobacco dependence Confirmed Active Underweight Confirmed Active 1Cardiac stents 1995 Social History Social History Type Response Tobacco Use: 4 or less cigar ettes(less than 1/4 pack)/day in last 30 days. Interested in cessation: Yes. Other: Reports smoked at least 30 years, up to 1-2 PPD at one point.. Type: Cigarettes. Sex Male Patient Care team information Care Team Personnel Name: Glo Camarena RN Position: [facility] RN Member Role: Primary Care Nurse Name: Fatimah Bennett RN Position: [facility] RN Member Role: Primary Care Nurse Name: Mariely Hardy RN Position: [facility] RN Member Role: Primary Care Nurse Name: Marleen Uriarte RN Position: [facility] RN Member Role: Primary Care Nurse Name: Sydney Zelaya Position: [facility] SN Support Member Role: Lifetime Consulting Physician Name: Judd Barahona RN Position: [facility] RN Member Role: Primary Care Nurse Name: Mag Harry RN Position: [facility] RN Member Role: Primary Care Nurse Name: An Blount RN Position: [facility] RN Supv Member Role: Primary Care Nurse Name: Guru Whitley RN Position: [facility] RN Member Role: Primary Care Nurse Name: Rebecca Whitley RN Position: [facility] RN Member Role: Primary Care Nurse Name: Marianna Ng RN Position: [facility] SN RN Member Role: Primary Care Nurse Name: Avani Odell RN Position: [facility] RN Member Role: Primary Care Nurse Name: Lisbet Hickman RN Position: [facility] RN Member Role: Primary Care Nurse Name: Ruben Bello RN Position: [facility] RN Member Role: Primary Care Nurse Name: Araceli Simon RN Position: [facility] RN Member Role: Primary Care Nurse Name: Judi Streeter RN Position: [facility] RN Member Role: Primary Care Nurse Name: Moni Dugan RN Position: [facility] RN Member Role: Primary Care Nurse Name: Misty Nguyen RN Position: [facility] RN Member Role: Primary Care Nurse Name: Hetal Archer LPN Position: [facility] RN Member Role: Primary Care Nurse Name: Joyce Cobb Position: [facility] RN Member Role: Primary Care Nurse Name: Sarwat Aj RN Position: [facility] RN Member Role: Primary Care Nurse Name: César Patel RN Position: [facility] RN Member Role: Primary Care Nurse Name: Cassi Batista RN Position: [facility] RN Member Role: Primary Care Nurse Name: Daija Huitron RN Position: [facility] RN Member Role: Primary Care Nurse Name: Ellis Mayfield RN Position: [facility] RN Supv Member Role: Primary Care Nurse Name: Ayah Robison RN Position: [facility] RN Member Role: Primary Care Nurse Name: Radha Moreno RN Position: [facility] RN Member Role: Primary Care Nurse Name: Jina Smalls RN Position: [facility] RN Member Role: Primary Care Nurse Name: Laura Clements RN Position: [facility] RN Member Role: Primary Care Nurse Name: Colette Syed RN Position: [facility] RN Member Role: Primary Care Nurse Name: Muriel Daley RN Position: [facility] RN Supv Member Role: Primary Care Nurse Name: Judith Rojas LPN Position: [facility] RN Member Role: Primary Care Nurse Name: Sydney Raza RN Position: [facility] RN Member Role: Primary Care Nurse Name: Rachna Renteria RN Position: [facility] RN Member Role: Primary Care Nurse Name: Zohreh Pink RN Position: [facility] RN Member Role: Primary Care Nurse Name: Sophie Berrios RN Position: [facility] RN Member Role: Primary Care Nurse Name: Grisel Mcgowan RN Position: [facility] RN Member Role: Primary Care Nurse Name: Uyen Mitchell RN Position: [facility] RN Member Role: Primary Care Nurse Name: Nasra Smith NP Position: Reference Physician Member Role: Primary Care Nurse Address: Address: [address] [place] [address] Name: Silas Knox RN Position: [facility] RN Member Role: Primary Care Nurse Name: Elham Lee RN Position: [facility] AMB Nurse Member Role: Primary Care Nurse Name: Dariana Mariee RN Position: [facility] RN Member Role: Primary Care Nurse Name: Ana María Cat RN Position: [facility] RN Member Role: Primary Care Nurse Name: Janet Pacheco RN Position: [facility] RN Member Role: Primary Care Nurse Name: Flor Holley Position: [facility] RN Member Role: Primary Care Nurse Name: Bret Aguirre RN Position: [facility] RN Member Role: Primary Care Nurse Name: Audra Martinez RN Position: [facility] RN Member Role: Primary Care Nurse Name: Shahbaz Bobo RN Position: [facility] RN Member Role: Primary Care Nurse Name: Jennifer Yin LPN Position: [facility] RN Member Role: Primary Care Nurse Name: Alina Arce RN Position: [facility] RN Member Role: Primary Care Nurse Name: Judi Krueger RN Position: [facility] RN Member Role: Primary Care Nurse Name: Magdi Patiño RN Position: [facility] RN Member Role: Primary Care Nurse Name: Kasia Lund RN Position: [facility] RN Member Role: Primary Care Nurse Name: Rachna Serrano RN Position: [facility] RN Member Role: Primary Care Nurse Name: Naveen Villalobos RN Position: [facility] RN Member Role: Primary Care Nurse Name: Not on Staff, PCP Position: [facility] Physician (General Medicine) Member Role: PCP Name: Radha Masterson RN Position: [facility] RN Member Role: Primary Care Nurse Name: Landy Villarreal RN Position: [facility] RN Member Role: Primary Care Nurse Name: Adria Bell RN Position: [facility] RN Member Role: Primary Care Nurse Name: Amy Larios RN Position: [facility] RN Member Role: Primary Care Nurse Name: Indira Lindsey RN Position: [facility] SN RN Member Role: Primary Care Nurse Name: Rosa Elena Pope RN Position: [facility] RN Member Role: Primary Care Nurse Name: Florentino Garcia RN Position: [facility] RN Member Role: Primary Care Nurse Name: Cristel Moreno RN Position: [facility] SN RN Member Role: Primary Care Nurse Name: Rosa Elena De León RN Position: [facility] Hospital [employer] Member Role: Primary Care Nurse Name: Nell Lagos RN Position: [facility] RN Member Role: Primary Care Nurse Name: Judi Hamilton RN Position: [facility] RN Member Role: Primary Care Nurse Name: Tulio Pina RN Position: [facility] RN Member Role: Primary Care Nurse Name: Narda Barnes RN Position: [facility] RN Member Role: Primary Care Nurse Name: Zoë Cisse RN Position: [facility] RN Member Role: Primary Care Nurse Name: Pat Bowers RN Position: [facility] RN Member Role: Primary Care Nurse Name: Gemma Chavira RN Position: [facility] RN Member Role: Primary Care Nurse Name: Ruy Salcido RN Position: [facility] RN Member Role: Primary Care Nurse Name: Hilaria Aparicio RN Position: [facility] RN Member Role: Primary Care Nurse Name: Carly Rosado RN Position: [facility] RN Neil Member Role: Primary Care Nurse Name: Taryn Rosado RN Position: [facility] RN Member Role: Primary Care Nurse Name: Sydney Rosado RN Position: [facility] RN Member Role: Primary Care Nurse Name: Vidih Wilkins RN Position: [facility] RN Member Role: Primary Care Nurse Name: Uriel Dumont Position: [facility] RN Member Role: Primary Care Nurse Name: Selene Vazquez RN Position: [facility] RN Member Role: Primary Care Nurse Name: César Gerber RN Position: [facility] RN Member Role: Primary Care Nurse Name: Dariana Becerra RN Position: [facility] RN Member Role: Primary Care Nurse Name: Leyla Verma LPN Position: [facility] RN Member Role: Primary Care Nurse Name: Rody Mays RN Position: [facility] RN Member Role: Primary Care Nurse Name: Marielos Mixon RN Position: [facility] RN Member Role: Primary Care Nurse Name: Radha Flores RN Position: [facility] RN Member Role: Primary Care Nurse Name: Hipolito Giles RN Position: [facility] RN Member Role: Primary Care Nurse Name: Rose Kyle RN Position: [facility] Hospital [employer] Member Role: Primary Care Nurse Name: Aimee Salamanca RN Position: [facility] RN Member Role: Primary Care Nurse Name: Jacobo Caceres Position: [facility] RN Member Role: Primary Care Nurse Care Team Related Persons Name: NORIS STEVENSON Address: home [address] [address] Name: MELINA VARMA Address: home [place] Name: GARRY VARMA Address: home [address] [address]
--- OUTSIDE RECORDS SUMMARY | 2023-08-15 20:22 | XMS_ITS | Continuity of Care Document ---
Author Name Unknown Organization [facility] Address [address] [place] [address]- Care Team Providers Care Realty Loan Specialist Name Role Phone Jose LEE MD, Jorge Tsang Primary Care Physician Encounter [facility] [place] Date(s): 10/19/22 - 11/18/22 [facility] [address], [place] [address] Attending Physician: Anabel Mendosa Admitting Physician: AdmtrAnabel Referring Physician: Admtr Ar8 Allergies, Adverse Reactions, Alerts Substance Reaction Severity Status naproxen lesions on lips Active Toradol Morphine allergy Metaxalone Naproxen Cephalexin allergy hives Persistent Mild Active Keflex 1 rash Active Skelaxin H/O: migraine Active 1tolerates pip/tazo 11/17 Immunizations Given and Recorded Vaccine Date Status Refusal Reason [id number] 12y+ bivalent booster vax 08/23/22 Recorded SARS-CoV-2 [...] 0 Refills, Maintenance, 07/16/22 12:59:00 EDT, Tablet, [facility]/pharmacy #[id number], Partial fill upon [...] Care team information Care Team Personnel Name: Michael Girard RN Position: S RN Member Role: Primary Care Nurse Name: Radha Hsieh RN Position: [facility] RN Member Role: Primary Care Nurse Name: Glo Camarena RN Position: [facility] RN Member Role: Primary Care Nurse Name: Fatimah Bennett RN Position: [facility] RN Member Role: Primary Care Nurse Name: Mariely Hardy RN Position: [facility] RN Member Role: Primary Care Nurse Name: Marleen Uriarte RN Position: [facility] RN Member Role: Primary Care Nurse Name: Sydney Zelaya Position: [facility] PCO OFFICE STAFF Member Role: Lifetime Consulting Physician Name: Judd Barahona RN Position: [facility] RN Member Role: Primary Care Nurse Name: Mag Harry RN Position: [facility] RN Member Role: Primary Care Nurse Name: An Blount RN Position: [facility] RN Supv Member Role: Primary Care Nurse Name: Marianna Ng RN Position: [facility] SN RN Member Role: Primary Care Nurse Name: Avani Odell RN Position: [facility] RN Member Role: Primary Care Nurse Name: Elizabeth Noriega RN Position: [facility] RN Member Role: Primary Care Nurse Name: Ruben Bello RN Position: [facility] RN Member Role: Primary Care Nurse Name: Zoë Thompson RN Position: [facility] RN Member Role: Primary Care Nurse Name: Araceli Simon RN Position: [facility] RN Member Role: Primary Care Nurse Name: Jorge Garcia III, MD Position: [facility] Ambulatory (view) Member Role: PCP Address: Address: [address] [place] [address] Name: Misty Nguyen RN Position: [facility] RN Member Role: Primary Care Nurse Name: Sarwat Aj RN Position: [facility] RN Member Role: Primary Care Nurse Name: Cassi Batista RN Position: [facility] RN Member Role: Primary Care Nurse Name: Daija Huitron RN Position: [facility] RN Member Role: Primary Care Nurse Name: Ellis Mayfield RN Position: [facility] RN Member Role: Primary Care Nurse Name: Ayah Robison RN Position: [facility] RN Member Role: Primary Care Nurse Name: Kirstin Enriquez RN Position: [facility] RN Member Role: Primary Care Nurse Name: Jina Smalls RN Position: [facility] RN Member Role: Primary Care Nurse Name: Laura Clements RN Position: [facility] RN Member Role: Primary Care Nurse Name: Colette Syed RN Position: [facility] RN Member Role: Primary Care Nurse Name: Muriel Daley RN Position: [facility] RN Supv Member Role: Primary Care Nurse Name: Darlyn Alvarez RN Position: [facility] RN Member Role: Primary Care Nurse Name: Maribell Mejias RN Position: [facility] RN Member Role: Primary Care Nurse Name: Rachna Renteria RN Position: [facility] RN Member Role: Primary Care Nurse Name: Zohreh Pink RN Position: [facility] RN Member Role: Primary Care Nurse Name: Sophie Berrios RN Position: [facility] RN Member Role: Primary Care Nurse Name: Grisel Mcgowan RN Position: [facility] RN Member Role: Primary Care Nurse Name: Nasra Smith RN Position: [facility] RN Member Role: Primary Care Nurse Name: Cindy Grullon RN Position: [facility] RN Supv Member Role: Primary Care Nurse Name: Silas Knox RN Position: [facility] RN Member Role: Primary Care Nurse Name: Elham Melgar RN Position: [facility] RN Member Role: Primary Care Nurse Name: Elham Lee RN Position: [facility] PCO RN Member Role: Primary Care Nurse Name: Dariana Mariee RN Position: [facility] RN Member Role: Primary Care Nurse Name: Ana María Cat RN Position: [facility] RN Member Role: Primary Care Nurse Name: Flor Holley Position: [facility] RN Member Role: Primary Care Nurse Name: Bret Aguirre RN Position: [facility] RN Member Role: Primary Care Nurse Name: Ghazal Moreno Position: [facility] RN Member Role: Primary Care Nurse Name: Audra Martinez RN Position: [facility] RN Member Role: Primary Care Nurse Name: Shahbaz Bobo RN Position: [facility] RN Member Role: Primary Care Nurse Name: Jennifer Yin LPN Position: [facility] RN Member Role: Primary Care Nurse Name: Alina Arce RN Position: [facility] RN Member Role: Primary Care Nurse Name: Marcelo Schneider RN Position: [facility] ED RN W/OE and Tasks Member Role: Primary Care Nurse Name: Radha Masterson RN Position: [facility] RN Member Role: Primary Care Nurse Name: Amy Larios RN Position: [facility] RN Member Role: Primary Care Nurse Name: Indira Lindsey RN Position: [facility] SN RN Member Role: Primary Care Nurse Name: Rosa Elena Pope RN Position: [facility] RN Member Role: Primary Care Nurse Name: Florentino Garcia RN Position: [facility] RN Member Role: Primary Care Nurse Name: Cristel Moreno RN Position: [facility] SN RN Member Role: Primary Care Nurse Name: Rosa Elena De León RN Position: [facility] Chipper Member Role: Primary Care Nurse Name: Tulio Pina RN Position: [facility] RN Member Role: Primary Care Nurse Name: Maximiliano Claros RN Position: [facility] RN Member Role: Primary Care Nurse Name: Narda Barnes RN Position: [facility] RN Member Role: Primary Care Nurse Name: Zoë Cisse RN Position: [facility] RN Member Role: Primary Care Nurse Name: Pat Bowers RN Position: [facility] RN Member Role: Primary Care Nurse Name: Ruy Salcido RN Position: [facility] RN Member Role: Primary Care Nurse Name: Tayler Cabello RN Position: [facility] RN Member Role: Primary Care Nurse Name: Hilaria Aparicio RN Position: [facility] RN Member Role: Primary Care Nurse Name: Carly Rosado RN Position: [facility] RN Supadelaida Member Role: Primary Care Nurse Name: Sydney Rosado RN Position: [facility] RN Member Role: Primary Care Nurse Name: Uriel Dumont Position: [facility] RN Member Role: Primary Care Nurse Name: Selene Vazquez RN Position: [facility] RN Member Role: Primary Care Nurse Name: Dariana Becerra RN Position: [facility] RN Member Role: Primary Care Nurse Name: Leyla Verma LPN Position: [facility] RN Member Role: Primary Care Nurse Name: Rody Mays RN Position: [facility] RN Member Role: Primary Care Nurse Name: Marielos Mixon RN Position: [facility] RN Member Role: Primary Care Nurse Name: Radha Flores RN Position: [facility] RN Member Role: Primary Care Nurse Name: Rose Kyle RN Position: [facility] Chipper Member Role: Primary Care Nurse Name: Aimee Salamanca Position: S RN Member Role: Primary Care Nurse Name: Jacobo Caceres Position: S RN Member Role: Primary Care Nurse Care Team Related Persons Name: STEVENSON HAMM Address: home [address] [address] Name: MELINA VARMA Address: [place] [address] Name: GARRY VARMA Address: home [address] [address] Name: BRIEN LANCASTER Address: home [address] [address]
--- OUTSIDE RECORDS SUMMARY | 2023-08-15 20:23 | XMS_ITS | Continuity of Care Document ---
Author Name Unknown Organization [facility] ter Address [address] [place] [address]- Care Team Providers Care Spindle Plumber Name Role Phone Jose LEE MD, Jorge Tsang Primary Care Physician [phone] Encounter [facility] [place] Date(s): 06/09/21 - 06/09/[address] [address]- Discharge Disposition: A-D/C Home Attending Physician: Rosalie Bradley MD Admitting Physician: Rosalie Bradley MD Referring Physician: Not on Staff, Referring [...] 16:44:00 EDT, Aerosol, Route to Pharmacy Electronically, [id number], [facility]/pharmacy #[id number], 182, cm, 05/26/20 16:01:00 E... [...] 6 hours, PRN as needed for pain, # 20 tablet, 0 Refills, Maintenance, 05/31/21 16:37:00 EDT, Tablet, [facility]/pharmacy #[id number], Partial fill upon patient request if the prescription is for a schedule II opioid drug., 182, cm,... Start Date: 05/31/21 Status: Ordered duloxetine 60 mg oral enteric [...] 5:07:28 EDT Start Date: 05/17/19 Status: Ordered HYDROmorphone 2 mg oral tablet 2 mg, Tablet, By Mouth, Once, STAT, 06/09/21 21:53:00 EDT, Stop date 06/09/21 21:53:00 EDT Start Date: 06/09/21 Stop Date: 06/09/21 Status: Completed Incruse Ellipta 62.5 mcg/inh inhalation powder 1 each, Inhalation, Every 24 hours, doses should be taken at least 24 hours apart, j44.9, # 1 each,6 Refills, Maintenance, 08/13/20 16:33:00 EDT, Powder, [facility]/pharmacy #[id number], 182, cm, 05/26/20 16:01:00 EDT, [...] tablet, 11 Refills, Maintenance, 05/15/20 13:53:00 EDT, [facility]/pharmacy #[id number], 182, cm, 05/15/20 13:20:00 EDT, [...] 6, 03/31/07 11:15:26, Print MARTIN Number, [facility], [address] [place] [address], [id number], Constant Indicator Start Date: 03/31/07 Stop Date: [...] Multiple fractures of ribs(Confirmed) 01/06/11 Active Old [place] (myocardial infarctio n) X 3(Confirmed) Active PVD (peripheral vascular disease)(Confirmed) Active 1Cardiac stents 1991, 1995 Vital Signs Most recent to oldest [Reference Range]: 1 2 3 Oxygen Saturation [94-100 %] 98 % (06/09/21 11:28 PM) Pulse Rate [55-90 bpm] 84 bpm (06/09/21 11:28 PM) 94 bpm *H* (06/09/21 6:44 PM) Blood Pressure [90-138/55-84 mm Hg] 120/88mm Hg (06/09/21 11:28 PM) 126/83mm Hg (06/09/21 6:44 PM) Respiratory Rate [16-30 br/min] 20 br/min (06/09/21 11:28 PM) 20 br/min (06/09/21 10:06 PM) 18 br/min (06/09/21 6:44 PM) Temperature [96.8-100.4 DegF] 98.6 DegF (06/09/21 11:28 PM) 99.1 DegF (06/09/21 6:44 PM) Liters per Minute 3 L/min (06/09/21 11:28 PM) 2 L/min (06/09/21 6:44 PM) Mode of Delivery (Oxygen) Room air (06/09/21 11:28 PM) Nasal cannula (06/09/21 6:44 PM) Blood pressure sites Arm, right (06/09/21 11:28 PM) Arm, left (06/09/21 6:44 PM) Temperature Route Oral (06/09/21 11:28 PM) Oral (7/13/21 6:44 PM) Social History Social History Type Response Tobacco Use: Former smoker.. Sex
--- OUTSIDE RECORDS SUMMARY | 2023-08-15 20:23 | XMS_ITS | Continuity of Care Document ---
Author Name Unknown Organization [facility] Address [address] [place] [address]- Care Team Providers Care Laboratory Animal Facility Supervisor Name Role Phone Jorge Garcia III, MD Primary Care Physician [phone] Encounter [place] Date(s): 07/14/20 - 09/27/20 [facility] [address] [place] [address] [place] [address]- [facility] Attending Physician: Jemima Castro MD Admitting Physician: Jemima Castro MD Referring Physician: Jorge Garcia III, MD [...] 16:44:00 EDT, Aerosol, Route to Pharmacy Electronically, [id number], [facility]/pharmacy #[id number], 182, cm, 05/26/20 16:01:00 E... [...] each,6 Refills, Maintenance, 08/13/20 16:33:00 EDT, Powder, [facility]/pharmacy #[id number], 182, cm, 05/26/20 16:01:00 [...] 11:32:53 Start Date: 06/30/16 Status: Ordered predniSONE 5 mg oral tablet See Instructions, 20mg for 1 week, 15mg for 1 week, 10mg for 1 week, 5 mg for 1 week then DC., # 80tablet, 0 Refills, Maintenance, 09/22/20 9:05:00 EDT, Tablet, [facility]/pharmacy #[id number], 182, cm, 09/18/2013:10:00 EDT, Height, 67, kg, 07/05/20 13:57:00 EDT... Start Date: 09/22/20 Status: Ordered roflumilast 500 mcg oral tablet 1 tablet = 500 mcg, By Mouth, Daily, # 30 tablet, 11 Refills, Maintenance, 05/15/20 13:53:00 EDT, [facility]/pharmacy #[id number], 182, cm, 05/15/20 13:20:00 EDT, [...] 03/31/07 11:15:26, Print MARTIN Number, [facility]S [facility], [address] [place] [address], [id number], Constant Indicator Start Date: 03/31/07 Stop Date: [...] Multiple fractures of ribs(Confirmed) 01/06/11 Active Old [place] (myocardial infarctio n) X 3(Confirmed) Active PVD (peripheral vascular disease)(Confirmed) Active 1Cardiac stents 1991, 1995 Social History Social History Type Response Tobacco Use: Former smoker.. Sex Male
--- OUTSIDE RECORDS SUMMARY | 2023-08-15 20:23 | XMS_ITS | Continuity of Care Document ---
Author Name Unknown Organization [facility] ter Address [address] [place] [address]- Care Team Providers Care Ssds Mk 2 Advanced Operator Name Role Phone Jose LEE MD, Jorge Tsang Primary Care Physician Encounter [facility] [place] Date(s): 06/13/22 - 06/13/[address] [address]- Encounter Diagnosis COPD exacerbation(Final) - 06/13/22 Discharge Disposition: A-D/C Home Attending Physician: Morenita Ramírez MD Admitting Physician: Morenita Ramírez MD Referring Physician: Not on Staff, Referring MD Allergies, Adverse Reactions, Alerts Substance Reaction Severity Status Toradol Morphine allergy Metaxalone Naproxen Cephalexin allergy Cephalexin allergy Persistent Mild Active Immunizations Given and Recorded Vaccine Date Status Refusal Reason SARS-CoV-2 (COVID-19) mRNA-1273 vaccine 01/17/22 R ecorded SARS-CoV-2 (COVID-19) mRNA-1273 vaccine 02/23/21 R ecorded SARS-CoV-2 (COVID-19) mRNA-1273 vaccine 01/25/21 R ecorded tetanus/diphtheria/pertussis, acel(Tdap) 06/09/21 Recorded tetanus/diphtheria/pertussis, acel(Tdap) 05/30/17 Recorded influenza virus vaccine, inactivated 10/27/20 Bubba rded influenza virus vaccine, inactivated 02/03/20 Bubba rded influenza virus vaccine, inactivated 07/26/18 Bubba rded influenza virus vaccine, inactivated 08/29/17 Bubba rded influenza virus vaccine, inactivated 08/17/16 Bubba rded influenza virus vaccine, inactivated 09/02/15 Bubba rded influenza virus vaccine, inactivated 08/07/14 Bubba rded pneumococcal 23-valent vaccine 08/19/19 Recorded zoster vaccine, inactivated 09/11/18 Recorded Zoster Vaccine Live 04/05/18 Recorded Medications Albuterol (Eqv-ProAir HFA) 90 mcg/inh inhalation aerosol INHALE 2 PUFFS INTO THE LUNGS EVERY 6 HOURS NEEDED FOR COUGH, WHEEZING OR SHORTNESS OF BREATH. Start Date: 04/27/22 Status: Ordered aspirin 81 [...] Daily, # 90 tablet, 0 Refills, Maintenance, 04/27/22 19:33:00 EDT, Tablet, [...] Status: Ordered dicyclomine 10 mg oral capsule 0 Refills, Maintenance, 04/27/22 20:45:00 EDT, Partial fill upon patient request if the prescription is for a schedule II opioid drug. Start Date: 04/27/22 Status: Ordered Dilaudid Inj 0.5 mg, Injection, IV Push Slowly, Every 4 hours for 3 doses/times, PRN for Pain , Severe, STAT, 06/13/22 11:21:00 EDT, Stop date Limited # of times Start Date: 06/13/22 Stop Date: 06/14/22 Status: Discontinued docusate sodium 100 mg oral capsule TAKE 1 CAPSULE BY MOUTH TWICE A DAY FOR CONSTIPATION Start Date: 04/27/22 Status: Ordered duloxetine 60 mg oral enteric coated capsule 1 capsule = 60 mg, By Mouth, 2 times a day, # 30 capsule, 0 Refills, Maintenance, 04/27/22 20:45:00EDT, EC Capsule, Partial fill upon patient request [...] opioid drug. Start Date: 04/28/22 Status: Ordered gabapentin 300 mg oral capsule TAKE 1 CAPSULE BY MOUTH THREE TIMES A DAY Start Date: 04/27/22 Status: Ordered Incruse Ellipta 62.5 mcg/inh inhalation powder 0 Refills, Maintenance, 04/27/22 19:33:00 EDT, Partial fill upon patient request if the prescription is for a schedule II opioid drug. Start Date: 04/27/22 Status: Ordered isosorbide dinitrate 30 mg oral tablet TAKE 1 TABLET BY MOUTH EVERY DAY Start Date: 04/27/22 Status: Ordered Lasix 20 mg oral tablet 20 mg, 1, tablet, By Mouth, 2 times a day, # 30 tablet, Refills 0, Maintenance, 04/27/22 20:48:00 EDT, Partial fill upon patient request if the prescription is for a schedule II opioid drug. Start Date: 04/27/22 Status: Ordered lisinopril 2.5 mg oral tablet 2.5 mg, 1, tablet, By Mouth, Daily, # 30 tablet, Refills 0, Maintenance, 04/27/22 20:47:00 EDT, Partial fill upon patient request if the prescription is for a schedule II opioid drug. Start Date: 04/27/22 Status: Ordered loperamide 2 mg oral capsule TAKE 1 TAB BY MOUTH 4 TIMES DAILY NEEDED FOR DIARRHEA. Start Date: 04/27/22 Status: Ordered Metoprolol Succinate ER 25 mg oral tablet, extended release 1 tablet = 25 mg, By Mouth, Daily, # 30 tablet, 0 Refills, Maintenance, 04/27/22 19:34:00 EDT, ER Tablet, Partial fill upon patient request if the prescription is for a schedule II opioid drug. Start Date: 04/27/22 Status: Ordered pantoprazole 40 mg oral delayed release tablet TAKE 1 TABLET BY MOUTH EVERY DAY Start Date: 04/27/22 Status: Ordered predniSONE 10 mg oral tablet See Instructions, 1.5 tablet since 13 months restart this dose after you have complete your prednisone taper on 05/09/22 Start Date: 04/27/22 Status: Ordered predniSONE 10 mg oral tablet 3 tablet = 30 mg, By Mouth, Daily, then 2 tablet daily for 3 days then continue 1.5 tablets daily, # 12 tablet, 0 Refills, Maintenance, 05/01/22 14:26:00 EDT, Tablet, [facility], Partial fill upon patient request if the prescription is f... Start Date: 05/01/22 Stop Date: 05/04/22 Status: Ordered predniSONE 20 mg oral tablet 2 tablet = 40 mg, By Mouth, Daily, for 5 days, # 10 tablet, 0 Refills, Acute 06/18/22 15:16:00 EDT,06/13/22 15:16:00 EDT, Tablet, [facility]/pharmacy #[id number], Partial fill upon patient request if the prescription is for a schedule II opioid drug., 183, cm, 06... Start Date: 06/13/22 Stop Date: 06/18/22 Status: Ordered Symbicort 160mcg/4.5mcg Inhaler INHALE 2 PUFFS INTO THE LUNGS TWICE A DAY Start Date: 04/27/22 Status: Ordered tiZANidine 2 mg oral tablet TAKE 1/2 TABLET BY MOUTH 3 TIMES A DAY Start Date: 04/27/22 Status: Ordered Vitamin B1 100 mg oral tablet 100 mg, 1, tablet, By Mouth, Daily, # 7 tablet, Refills 0, Maintenance, 04/27/22 20:47:00 EDT, Partial fill upon patient request if the prescription is for a schedule II opioid drug. Start Date: 04/27/22 Stop Date: 05/04/22 Status: Ordered Problem List Condition Effective Dates Status Health Status Inform ant Underweight(Confirmed) Active Results Radiology Reports * Exam Date Time Procedure Performing Provider Status 06/13/22 11:14 AM Chest Portable Julieta Monk; Aut h (Verified) Notes: (Chest Portable) Reason For Exam: Shortness of Breath RESULT: Chest Portable Chest Portable Reason: Shortness of Breath; Clinical Question(s): CHF COMPARISON: 04/27/2022 FINDINGS: LINES AND TUBES: None. LUNGS AND PLEURA: Prominent interstitial markings are either unchanged or slightly increased. Otherwise clear lungs without alveolar opacity/consolidation. No pleural effusion. No pneumothorax. HEART, MEDIASTINUM AND MAMADOU: Heart is normal in size. Normal upper mediastinal and hilar contour. BONES AND SOFT TISSUES: No acute abnormality. IMPRESSION: Prominent interstitial markings are either unchanged or slightly increased (possible mild interstitial edema). No other acute process. WSN: [id number] Ordering Physician: Audra Dallas Dictated By: Cristóbal Jones MD Dictated Date/Time: 06/13/22 11:36 a Reviewed By: Cristóbal Jones MD Signed By: Cristóbal Jones MD Signed Date/Time: 06/13/22 11:36 am Transcribed By: BERENICE Transcribed Date/Time: 06/13/22 11:34 am Vital Signs Most recent to oldest [Reference Range]: 1 2 3 Oxygen Saturation [94-100 %] 98 % (06/13/22 3:14 PM) 94 % (06/13/22 12:32 PM) 100 % (06/13/22 11:10 AM) Pulse Rate [55-90 bpm] 80 bpm (06/13/22 3:14 PM) 78 bpm (06/13/22 12:32 PM) Blood Pressure [90-138/55-84 mm Hg] 122/83mm Hg (06/13/22 3:14 PM) 123/86mm Hg (06/13/22 12:32 PM) Respiratory Rate [16-30 br/min] 19 br/min (06/13/22 3:54 PM) 19 br/min (06/13/22 3:14 PM) 18 br/min (06/13/22 12:32 PM) Temperature [96.8-100.4 DegF] 98.3 DegF (06/13/22 3:14 PM) Liters per Minute 3 L/min (06/13/22 3:14 PM) 3 L/min (06/13/22 12:32 PM) Mode of Delivery (Oxygen) Nasal cannula (06/13/22 3:14 PM) Nasal cannula (06/13/22 12:32 PM) Blood pressure sites Arm, right (06/13/22 3:14 PM) Arm, right (06/13/22 12:32 PM) Temperature Route Oral (06/13/22 3:14 PM)
--- OUTSIDE RECORDS SUMMARY | 2023-08-15 20:23 | XMS_ITS | Continuity of Care Document ---
Author Name Unknown Organization [facility] Address [address] [place] [address]- Care Team Providers Care Machine Egg Washer Name Role Phone Jorge Garcia III, MD Primary Care Physician Encounter [facility] [place] Date(s): 07/24/20 - 08/23/20 [facility] [address] [place] [address]- [facility] Allergies, Adverse Reactions, Alerts Substance Reaction Severity [...] 16:44:00 EDT, Aerosol, Route to Pharmacy Electronically, [id number], [facility]/pharmacy #[id number], 182, cm, 05/26/20 [...] each,6 Refills, Maintenance, 08/13/20 16:33:00 EDT, Powder, [facility]/pharmacy #[id number], 182, cm, 05/26/20 [...] predniSONE 10 mg oral tablet See Instructions, Take 4 tablets together daily for 3 days, then 3 tabs daily for 3 days, then 2 tabs daily for 3 days then 1 tab daily for 3 days., # 30 tablet, 0 Refills, Acute 08/28/20 17:29:00 EDT, 08/13/20 17:29:00 EDT, [facility]acy [facility][id number], 182, c... Start Date: 08/13/20 Stop Date: 08/28/20 Status: Ordered predniSONE 5 mg oral tablet [...] 03/31/07 11:15:26, Print MARTIN Number, ADS [facility], [address] [place] [address], [id number], Constant Indicator Start Date: 03/31/07 Stop Date: [...]
--- OUTSIDE RECORDS SUMMARY | 2023-08-15 20:23 | XMS_ITS | Continuity of Care Document ---
Author Name Unknown Organization [facility] Address [address] [place] [address]- Care Team Providers Care Crop Farm Workers Name Role Phone Jose LEE MD, Jorge Tsang Primary Care Physician Encounter [facility] Date(s): 08/18/21 - 09/17/21 [facility] [address] [place] [address]- Allergies, Adverse Reactions, Alerts Substance Reaction Severity Status naproxen lesions on lips Active morphine 1 itch Active Toradol hives Active Skelaxin H/O: migraine Active Keflex rash Active : Can tolerate Hydromorphone Immunizations Given [...] mL, 6 Refills, Maintenance, 07/24/20 16:44:00 EDT, [facility]/pharmacy #[id number], 182, cm, 05/26/20 16:01:00 EDT, Height, 67, kg, 07/05/20 13:57:00 EDT, Dry Weight Start Date: 07/24/20 Status: Ordered albuterol CFC free 90 mcg/inh inhalation aerosol 2, puffs, Inhalation, Every 6 hours, PRN, j44.9, # 1 each, Refills 6, Tot. Refills 6, Maintenance, 07/24/20 16:44:00 EDT, Aerosol, Route to Pharmacy Electronically, [id number], [facility]/pharmacy #[id number], 182, cm, 05/26/20 16:01:00 E... [...] for pain, # 10 tablet, 0 Refills, Maintenance, 09/11/21 20:08:00 EDT, Tablet, [facility]/pharmacy #[id number], 182.8, cm, 07/23/21 16:15:00 EDT, Height, 62.18, kg, 07/18/21 8:54:00 EDT, Dry Weight Start Date: 09/11/21 Stop Date: 09/14/21 Status: Ordered Docusate/Senna Tablet 1 tablet, By [...] opioid drug. Start Date: 07/17/21 Status: Ordered furosemide 20 mg oral tablet TAKE 1 TABLET BY MOUTH TWICE A DAY Start Date: 09/16/21 Status: Ordered gabapentin 400 mg oral capsule TAKE 1 CAPSULE BY MOUTH THREE TIMES A DAY Start Date: 09/16/21 Status: Ordered Incruse Ellipta 62.5 mcg/inh inhalation powder 1 each, Inhalation, Every 24 hours, doses should be taken at least 24 hours apart, j44.9, # 1 each,6 Refills, Maintenance, 08/13/20 16:33:00 EDT, Powder, [facility]/pharmacy #[id number], 182, cm, 05/26/20 16:01:00 EDT, [...] tablet = 5 mg, By Mouth, Daily, # 10 tablet, 0 Refills, Maintenance, 09/16/21 7:31:00 EDT, Tablet, Partial fill upon patient request if the prescription is for a schedule II opioid drug. Start Date: 09/16/21 Stop Date: 09/26/21 Status: Ordered simethicone 80 mg oral tablet, [...] EDT, Aerosol Start Date: 03/08/19 Status: Ordered Toprol XL 25 mg oral tablet, extended release 25, mg, 1, tablet, By Mouth, Daily, 30, tablet, 6, 6, 03/31/07 11:15:26, Print MARTIN Number, [facility], [address] [place] [address], [id number], Constant Indicator Start Date: 03/31/07 Stop Date: 10/27/07 Status: Ordered Problem List Condition Effective Dates [...] Multiple fractures of ribs(Confirmed) 01/06/11 Active Old [place] (myocardial infarctio n) X 3(Confirmed) Active PVD (peripheral vascular disease)(Confirmed) Active 1Cardiac stents 1991, 1995 Social History Social History Type Response Tobacco Use: 2 cigarettes a day . Sex
--- OUTSIDE RECORDS SUMMARY | 2023-08-15 20:23 | XMS_ITS | Continuity of Care Document ---
Author Name Unknown Organization [facility] Address [address] [place] [address]- Care Team Providers Care Slime Plant Operator Name Role Phone Jose LEE MD, Jorge Tsang Primary Care Physician [phone] Encounter [facility] Date(s): 03/17/20 - 04/25/20 [facility] [address] [place] [address] [facility] Attending Physician: Oscar Rios MD Allergies, Adverse Reactions, [...] 10:28:46 EDT Start Date: 04/27/19 Status: Ordered albuterol CFC free 90 mcg/inh inhalation aerosol 2, puffs, Inhalation, Every 6 hours, PRN, # 1 each, Refills 4, Tot. Refills 4, Maintenance, 12/26/19 10:39:00 EST, Aerosol, Route to Pharmacy Electronically, [id number], [facility]/pharmacy #[id number], 182, cm, 12/26/19 9:43:00 EST, Heig... Start Date: 12/26/19 Status: Ordered apixaban = 5 mg, By Mouth, 2 times a day, To start after 7 days of 10 mg dose, 0 Refills, Maintenance, 05/27/19 14:17:22 EDT, Tablet Start Date: 05/27/19 Status: Ordered aquacel ag Knipel ag, See Instructions, # 1 box, Refills [...] EDT, Inhaler Start Date: 07/12/19 Status: Ordered citalopram 20 mg oral tablet [...] EST, Compound Start Date: 12/26/19 Status: Ordered Ferrous Sulfate Tablet 60 mg, By Mouth, Daily, Maintenance, 09/17/14 9:53:46 EDT Start Date: 09/17/14 Status: Ordered Furosemide = 20 mg, By [...] Tablet Start Date: 07/01/14 Status: Ordered lidocaine 4% topical solution See Instructions, Apply to right knee for pain, # 1 each, 0 Refills, Maintenance, 03/24/20 22:05:00EDT, [facility]/pharmacy #[id number], Apply to right knee for pain, 182, cm, 03/05/20 9:03:00 EDT, Height, 56.4,kg, 07/11/19 18:58:00 EDT, Dry Weight Start Date: 03/24/20 Status: Ordered lisinopril 2.5 mg oral tablet [...] EDT, Lozenge Start Date: 07/17/19 Status: Ordered Nicotine Patch Nicotine Patch, 21 mg, Refills 0, Maintenance, 12/26/19 9:51:00 EST, Compound Start Date: 12/26/19 Status: Ordered nitroglycerin 0.4 mg sublingual tablet Sublingual, Every 5 minutes, PRN Chest Pain, 0 Refills, Maintenance, 07/01/14 14:31:38, Tablet Start Date: 07/01/14 Status: Ordered Pantoprazole = 40 mg, By Mouth, Daily, 0 Refills, Maintenance, 06/30/16 11:32:53 Start Date: 06/30/16 Status: Ordered predniSONE 10 mg oral tablet 1 tablet = 10 mg, By Mouth, Daily, # 30 tablet, 1 Refills, Maintenance, 04/22/20 16:34:00 EDT, Tablet, [facility]/pharmacy #[id number], 182, cm, 04/22/20 15:28:00 EDT, Height, 56.4, kg, 07/11/19 18:58:00 EDT, DryWeight Start Date: 04/22/20 Status: Ordered predniSONE 10 mg oral tablet See Instructions, 4 tabs x 2 days, 3 tabs x 2 days, 2 tabs x 2 days, 1 tab x 2 days, # 16 tablet, 0Refills, Acute 04/26/20 12:00:00 EDT, 04/18/20 16:37:00 EDT, [facility]/pharmacy #[id number], Patient already has 4 tabs at home from previous RX that he took wrong... Start Date: 04/18/20 Stop Date: 04/26/20 Status: Ordered Senna 8.6 mg oral tablet [...] 6, 03/31/07 11:15:26, Print MARTIN Number, [facility], [address] [place] [address], [id number], Constant Indicator Start Date: 03/31/07 Stop Date: [...] EDT, Inhaler Start Date: 03/08/19 Status: Ordered Ventolin HFA 108 mcg/inh inhalation aerosol with adapter 2 puffs, Inhalation, Every 6 hours, PRN for wheezing, j44.9, # 1 each, 6 Refills, Maintenance, 01/24/20 10:21:00 EST, Aerosol, [facility]/pharmacy #[id number], 182, cm, 12/26/19 9:43:00 EST, Height, 56.4, kg, 07/11/19 18:58:00 EDT, Dry Weight Start Date: 01/24/20 Status: Ordered Vitamin D3 400 intl units oral capsule 1 capsule = 400 International_Units, By Mouth, Daily, 0 Refills, Maintenance, 09/17/14 9:57:12 Start Date: 09/17/14 Status: Ordered Problem List Condition Effective Dates Status Health Status Inform ant Anemia(Confirmed) Active Anxiety(Confirmed) Active CAD - Coronary artery disease(Confirmed) 1 Active Chronic low back pain(Confirmed) Active COPD (chronic obstructive pu lmonary disease)(Confirmed) Active Deep vein thrombosis (DVT) o f left lower extremity(Confirmed) Active GERD (gastroesophageal reflu x disease)(Confirmed) Active Hyperlipidemia(Confirmed) Active HTN (hypertension)(Confirmed) Active Hyponatremia(Confirmed) Active Multiple fractures of ribs(Confirmed) 01/06/11 Active Old [place] (myocardial infarctio n) X 3(Confirmed) Active PVD (peripheral vascular disease)(Confirmed) Active Active smoker, 1/2 upto 2 pp d X >30 years(Confirmed) Active 1Cardiac stents 1991, 1995 Social History Social History Type Response Tobacco Use: Former smoker.. Sex
--- OUTSIDE RECORDS SUMMARY | 2023-08-15 20:23 | XMS_ITS | Continuity of Care Document ---
Author Name Unknown Organization [facility] Address [address] [place] [address]- Care Team Providers Care Real Estate Legal Secretary Name Role Phone Jorge Garcia III, MD Primary Care Physician [phone] Encounter [facility] Date(s): 05/28/20 - 09/12/20 [facility] [address] [place] [address]- [facility] Attending Physician: Cheng Marsh MD Admitting Physician: Cheng Marsh MD Referring Physician: Cheng Marsh MD Allergies, Adverse Reactions, Alerts Substance Reaction [...] 16:44:00 EDT, Aerosol, Route to Pharmacy Electronically, [id number], [facility]/pharmacy #[id number], 182, cm, 05/26/20 16:01:00 E... Start [...] Refills, Maintenance, 08/13/20 16:33:00 EDT, Powder, [facility]/pharmacy #[id number], 182, cm, 05/26/20 16:01:00 EDT, Height, [...] EDT, Height, 67, kg, 07/05/20 13:57:00 EDT, DrHerrera Start Date: 09/05/20 Status: Ordered predniSONE 5 [...] 6, 03/31/07 11:15:26, Print MARTIN Number, [facility], [address] [place] [address], [id number], Constant Indicator Start Date: 03/31/07 Stop Date: [...]
--- OUTSIDE RECORDS SUMMARY | 2023-08-15 20:23 | XMS_ITS | Continuity of Care Document ---
Author Name Unknown Organization [facility] Address [address] [place] [address]- Care Team Providers Care Hide Salter Name Role Phone Jose LEE MD, Jorge Tsang Primary Care Physician [phone] [id number] Date(s): 09/23/22 - 11/19/22 [facility] [address] [place], [place] [address] Attending Physician: Donaldo Poe MD Admitting Physician: Donaldo Poe MD Referring Physician: Jorge Garcia III, MD Allergies, Adverse Reactions, Alerts Substance Reaction Severity Status naproxen lesions on lips Active Toradol Morphine allergy Metaxalone Naproxen Cephalexin allergy hives Persistent Mild Active Keflex 1 rash Active Skelaxin H/O: migraine Active 1tolerates pip/tazo 11/17 Immunizations Given and Recorded Vaccine Date Status Refusal Reason [id number] 12y+ bivalent booster vax 08/23/22 Recorded SARS-CoV-2 [...] 0 Refills, Maintenance, 07/16/22 12:59:00 EDT, Tablet, [facility]/pharmacy #[id number], Partial fill upon [...] fractures of ribs Confirmed 01/06/11 Active Old MD (myocardial infarction) X 3 Confirmed Active PVD (peripheral vascular disease) Confirmed Active Underweight Confirmed Active 1Cardiac stents 1995 Social History Social History Type Response Tobacco Use: 4 or less cigar ettes(less than 1/4 pack)/day in last 30 days. Sex Patient Care team information Care Team Personnel Name: Era SHANNON, Michael Position: [facility] RN Member Role: Primary Care Nurse Name: Radha Hsieh RN Position: [facility] RN Member Role: Primary Care Nurse Name: Glo Camarena RN Position: [facility] RN Member Role: Primary Care Nurse Name: Fatimah Bennett RN Position: [facility] RN Member Role: Primary Care Nurse Name: Mariely Hardy RN Position: [facility] RN Member Role: Primary Care Nurse Name: Marleen Uriarte RN Position: [facility] RN Member Role: Primary Care Nurse Name: Sydney Zelaya Position: [facility] PCO OFFICE STAFF Member Role: Lifetime Consulting Physician Name: Judd Barahona RN Position: [facility] RN Member Role: Primary Care Nurse Name: Mag Harry RN Position: [facility] RN Member Role: Primary Care Nurse Name: An Blount RN Position: [facility] RN Supv Member Role: Primary Care Nurse Name: Marianna Ng RN Position: [facility] SN RN Member Role: Primary Care Nurse Name: Avani Odell RN Position: [facility] RN Member Role: Primary Care Nurse Name: Elizabeth Noriega RN Position: [facility] RN Member Role: Primary Care Nurse Name: Ruben Bello RN Position: [facility] RN Member Role: Primary Care Nurse Name: Zoë Thompson RN Position: [facility] RN Member Role: Primary Care Nurse Name: Araceli Simon RN Position: [facility] RN Member Role: Primary Care Nurse Name: Jorge Garcia III, MD Position: [facility] Ambulatory (view) Member Role: PCP Address: Address: [address] [place] [id number] Name: Misty Nguyen RN Position: [facility] RN Member Role: Primary Care Nurse Name: Sarwat Aj RN Position: [facility] RN Member Role: Primary Care Nurse Name: Cassi Batista RN Position: [facility] RN Member Role: Primary Care Nurse Name: Daija Huitron RN Position: [facility] RN Member Role: Primary Care Nurse Name: Ellis Mayfield RN Position: [facility] RN Member Role: Primary Care Nurse Name: Ayah Robison RN Position: [facility] RN Member Role: Primary Care Nurse Name: Kirstin Enriquez RN Position: [facility] RN Member Role: Primary Care Nurse Name: Jina Smalls RN Position: [facility] RN Member Role: Primary Care Nurse Name: Laura Clements RN Position: [facility] RN Member Role: Primary Care Nurse Name: Colette Syed RN Position: [facility] RN Member Role: Primary Care Nurse Name: Muriel Daley RN Position: [facility] RN Supv Member Role: Primary Care Nurse Name: Darlyn Alvarez RN Position: [facility] RN Member Role: Primary Care Nurse Name: Maribell Mejias RN Position: [facility] RN Member Role: Primary Care Nurse Name: Rachna Renteria RN Position: [facility] RN Member Role: Primary Care Nurse Name: Zohreh Pink RN Position: [facility] RN Member Role: Primary Care Nurse Name: Sophie Berrios RN Position: [facility] RN Member Role: Primary Care Nurse Name: Grisel Mcgowan RN Position: [facility] RN Member Role: Primary Care Nurse Name: Nasra Smith RN Position: [facility] RN Member Role: Primary Care Nurse Name: Cindy Grullon RN Position: [facility] RN Supv Member Role: Primary Care Nurse Name: Silas Knox RN Position: [facility] RN Member Role: Primary Care Nurse Name: Elham Melgar RN Position: [facility] RN Member Role: Primary Care Nurse Name: Elham Lee RN Position: [facility] PCO RN Member Role: Primary Care Nurse Name: Dariana Mariee RN Position: [facility] RN Member Role: Primary Care Nurse Name: Ana María Cat RN Position: [facility] RN Member Role: Primary Care Nurse Name: Flor Holley Position: [facility] RN Member Role: Primary Care Nurse Name: Bret Aguirre RN Position: [facility] RN Member Role: Primary Care Nurse Name: Ghazal Moreno Position: [facility] RN Member Role: Primary Care Nurse Name: Audra Martinez RN Position: [facility] RN Member Role: Primary Care Nurse Name: Shahbaz Bobo RN Position: [facility] RN Member Role: Primary Care Nurse Name: Jennifer Yin LPN Position: [facility] RN Member Role: Primary Care Nurse Name: Alina Arce RN Position: [facility] RN Member Role: Primary Care Nurse Name: Marcelo Schneider RN Position: [facility] ED RN W/OE and Tasks Member Role: Primary Care Nurse Name: Radha Masterson RN Position: [facility] RN Member Role: Primary Care Nurse Name: Amy Larios RN Position: [facility] RN Member Role: Primary Care Nurse Name: Indira Lindsey RN Position: [facility] SN RN Member Role: Primary Care Nurse Name: Rosa Elena Pope RN Position: [facility] RN Member Role: Primary Care Nurse Name: Florentino Garcia RN Position: [facility] RN Member Role: Primary Care Nurse Name: Cristel Moreno RN Position: [facility] SN RN Member Role: Primary Care Nurse Name: Rosa Elena De León RN Position: [facility] Sheet Turner Member Role: Primary Care Nurse Name: Tulio Pina RN Position: [facility] RN Member Role: Primary Care Nurse Name: Maximiliano Claros RN Position: [facility] RN Member Role: Primary Care Nurse Name: Narda Barnes RN Position: [facility] RN Member Role: Primary Care Nurse Name: Zoë Cisse RN Position: [facility] RN Member Role: Primary Care Nurse Name: Pat Bowers RN Position: [facility] SN RN Member Role: Primary Care Nurse Name: Ruy Salcido RN Position: [facility] RN Member Role: Primary Care Nurse Name: Tayler Cabello RN Position: [facility] RN Member Role: Primary Care Nurse Name: Hilaria Aparicio RN Position: [facility] RN Member Role: Primary Care Nurse Name: Carly Rosado RN Position: [facility] RN Supadleaida Member Role: Primary Care Nurse Name: Sydney Rosado RN Position: [facility] RN Member Role: Primary Care Nurse Name: Uriel Dumont Position: [facility] RN Member Role: Primary Care Nurse Name: Selene Vazquez RN Position: [facility] RN Member Role: Primary Care Nurse Name: Dariana Becerra RN Position: [facility] RN Member Role: Primary Care Nurse Name: Leyla Verma LPN Position: [facility] RN Member Role: Primary Care Nurse Name: Rody Mays RN Position: [facility] RN Member Role: Primary Care Nurse Name: Marielos Mixon RN Position: [facility] RN Member Role: Primary Care Nurse Name: Radha Flores RN Position: [facility] RN Member Role: Primary Care Nurse Name: Rose Kyle RN Position: [facility] Sheet Turner Member Role: Primary Care Nurse Name: Aimee Salamanca Position: [facility] RN Member Role: Primary Care Nurse Name: Jacobo Caceres Position: [facility] RN Member Role: Primary Care Nurse Care Team Related Persons Name: STEVENSON HAMM Address: home [address] [place] [address] Name: MELINA VARMA Address: [place] [address] Name: GARRY VARMA Address: home [address] [place] [address] Name: BRIEN LANCASTER Address: home [address] [place] [address]
--- OUTSIDE RECORDS SUMMARY | 2023-08-15 20:23 | XMS_ITS | Continuity of Care Document ---
Author Name Unknown Organization [facility] Address [address] [place] [address]- Care Team Providers Care Vp Strategic Planning Name Role Phone Jose LEE MD, Jorge Tsang Primary Care Physician Encounter [facility] Date(s): 03/18/22 - 04/17/22 [facility] [address] [place] [address]- Attending Physician: Anabel Mendosa Admitting Physician: AdmtrAnabel Referring Physician: Admtr, ArAdarsh Allergies, Adverse Reactions, Alerts Substance Reaction Severity Status naproxen lesions on lips Active morphine 1 itch Active Toradol hives Active Keflex 2 rash Active Skelaxin H/O: migraine Active : Can tolerate Hydromorphone 2tolerates pip/tazo 11/17 Immunizations Given and Recorded Vaccine [...] mL, 6 Refills, Maintenance, 07/24/20 16:44:00 EDT, [facility]/pharmacy #[id number], 182, cm, 05/26/20 16:01:00 EDT, Height, 67, kg, 07/05/20 13:57:00 EDT, Dry Weight Start Date: 07/24/20 Status: Ordered albuterol CFC free 90 mcg/inh inhalation aerosol 2, puffs, Inhalation, Every 6 hours, PRN, j44.9, # 1 each, Refills 6, Tot. Refills 6, Maintenance, 07/24/20 16:44:00 EDT, Aerosol, Route to Pharmacy Electronically, [id number], [facility]/pharmacy #[id number], 182, cm, 05/26/20 16:01:00 E... [...] Status: Ordered Dilaudid 4 mg oral tablet 1 tablet [...] each,6 Refills, Maintenance, 03/21/22 9:48:00 EDT, Powder, [facility]/pharmacy #[id number], 182, cm, 03/12/22 4:49:00EDT, Height, [...] 0 Refills, Maintenance, 04/03/22 16:44:00 EDT, Film, [facility]/pharmacy #[id number], Partial fill upon patient request [...] 0 Refills, Maintenance, 04/14/22 20:46:00 EDT, Tablet, [facility]/pharmacy #[id number], Partial fill upon patient request [...] 04/10/22 11:40:00 EDT, Route to Pharmacy Electronically, [facility]/pharmacy #[id number], Partial fill upon patientrequest if [...] 11:15:26, Print MARTIN Number, [facility], [address] [place] [address], [id number], Constant Indicator Start Date: 03/31/07 Stop Date: [...] Multiple fractures of ribs(Confirmed) 01/06/11 Active Old [place] (myocardial infarctio n) X 3(Confirmed) Active PVD (peripheral vascular disease)(Confirmed) Active Underweight(Confirmed) Active 1Cardiac stents 1991, 1995 Social History Social History Type Response Tobacco Use: 4 or less cigar ettes(less than 1/4 pack)/day in last 30 days. Interested in cessation: Yes. Type: Cigarettes. Sex
--- OUTSIDE RECORDS SUMMARY | 2023-08-15 20:23 | XMS_ITS | Continuity of Care Document ---
Author Name Unknown Organization [facility] Address [address] [place] [id number] Care Team Providers Care Health Promotion Officer Name Role Phone Jose LEE MD, Jorge Tsang Primary Care Physician Encounter [facility] [place]): 09/18/21 - 10/18/21 [facility] [address] [place] [id number]- Allergies, Adverse Reactions, Alerts Substance Reaction Severity [...] Bubba rded influenza virus vaccine, inactivated 08/07/14 Bubab rded influenza virus vaccine, inactivated 1 10/14/06 [...] mL, 6 Refills, Maintenance, 07/24/20 16:44:00 EDT, [facility] #[id number], 182, cm, 05/26/20 16:01:00 EDT, Height, 67, kg, 07/05/20 13:57:00 EDT, Dry Weight Start Date: 07/24/20 Status: Ordered albuterol CFC free 90 mcg/inh inhalation aerosol 2, puffs, Inhalation, Every 6 hours, PRN, j44.9, # 1 each, Refills 6, Tot. Refills 6, Maintenance, 07/24/20 16:44:00 EDT, Aerosol, Route to Pharmacy Electronically, [id number], [facility]/pharm[facility] #[id number], 182, cm, 05/26/20 16:01:00 E... Start [...] 11:02:06, Compound Start Date: 08/28/15 Status: Ordered Docusate/Senna Tablet 1 tablet, By [...] A DAY Start Date: 09/16/21 Status: Ordered Gabapentin = 300 mg, By Mouth, 3 times a day, 0 Refills, Maintenance, 10/07/21 17:38:00 EST, Partial fill uponpatient request if the prescription is for a schedule II opioid drug. Start Date: 10/07/21 Status: Ordered Incruse Ellipta 62.5 mcg/inh inhalation powder 1 each, Inhalation, Every 24 hours, doses should be taken at least 24 hours apart, j44.9, # 1 each,6 Refills, Maintenance, 08/13/20 16:33:00 EDT, Powder, [facility] #[id number], 182, cm, 05/26/20 16:01:00 EDT, Height, [...] opioid drug. Start Date: 07/31/21 Status: Ordered Melatonin = 10 mg, By Mouth, Daily at bedtime, 0 Refills, Maintenance, 10/07/21 17:54:00 EST, Partial fill upon patient request if the prescription is for a schedule II opioid drug. Start Date: 10/07/21 Status: Ordered MiraLax Powder 1 pack/packet = 17 Gm, By Mouth, Daily, PRN Constipation, 0 Refills, Maintenance, 07/31/21 8:54:00 EDT, Powder, Partial fill upon patient request if the prescription is for a schedule II opioid drug. Start Date: 07/31/21 Status: Ordered Pantoprazole = 40 mg, By Mouth, Daily, 0 Refills, Maintenance, 06/30/16 11:32:53 Start Date: 06/30/16 Status: Ordered pantoprazole 40 mg oral delayed release tablet 1 tablet = 40 mg, By Mouth, Daily in AM, # 30 tablet, 0 Refills, Maintenance, 10/07/21 17:39:00 EST, EC Tablet Start Date: 10/07/21 Status: Ordered predniSONE 5 mg oral tablet 3 tablet = 15 mg, By Mouth, Daily in AM, # 10 tablet, 0 Refills, Maintenance, 09/16/21 7:31:00 EDT,Tablet, Partial fill upon patient request if the [...] 6, 03/31/07 11:15:26, Print MARTIN Number, [facility], [address] [place] [id number], [id number], Constant Indicator Start Date: 03/31/07 Stop Date: 10/27/07 Status: Ordered Tylenol 325 mg oral tablet 650 mg, 2, tablet, By Mouth, Every 4 hours, PRN, Refills 0, Maintenance, Pain , Mild, 10/10/21 7:30:00 EST, Partial fill upon patient request if the prescription is for a schedule II opioid drug. Start Date: 10/10/21 Status: Ordered Problem List Condition Effective Dates [...] Multiple fractures of ribs(Confirmed) 01/06/11 Active Old NM (myocardial infarctio n) X 3(Confirmed) Active PVD (peripheral vascular disease)(Confirmed) Active Underweight(Confirmed) Active 1Cardiac stents 1991, 1995 Social History Social History Type Response Tobacco Use: 2 cigarettes a day . Sex
--- OUTSIDE RECORDS SUMMARY | 2023-08-15 20:23 | XMS_ITS | Continuity of Care Document ---
Author Name Unknown Organization [facility] ter Address [address] [place] [id number]- Care Team Providers Care Bathhouse Attendant Name Role Phone Jose LEE MD, Jorge Tsang Primary Care Physician Encounter [facility] Date(s): 10/07/22 - 10/08/[address] [address]- Encounter Diagnosis Anemia(Final) - 10/07/22 Discharge Disposition: A-Transfer SNF Attending Physician: Ree Bauer MD Admitting Physician: Ree Bauer MD Referring Physician: Not on Staff, Referring MD Allergies, Adverse Reactions, Alerts Substance Reaction Severity Status Toradol Morphine allergy Metaxalone Naproxen Cephalexin allergy hives Persistent Mild Active Keflex 1 rash Active Skelaxin H/O: migraine Active naproxen lesions on lips Active 1tolerates pip/tazo 11/17 Immunizations Given and [...] hours, PRN for Pain , Moderate, Routine, 10/07/22 17:35:00 EST Start Date: 10/07/22 Stop Date: 10/09/22 Status: Discontinued docusate sodium 100 mg oral capsule 1 capsule = 100 mg, By Mouth, Daily, PRN constipation Start Date: 04/27/22 Status: Ordered duloxetine 60 [...] gabapentin 100 mg oral capsule 100 mg, Capsule, By Mouth, 10/08/22 11:48:00 EST Start Date: 10/08/22 Stop Date: 10/08/22 Status: Completed gabapentin 100 mg oral capsule 100 mg, 1, capsule, By Mouth, 2 times a day, # 14 capsule, Refills 0, Tot. Refills 0, Maintenance, 10/08/22 14:29:00 EST, Print Requisition, Partial fill upon patient request if the prescription is for a schedule II opioid drug. Start Date: 10/08/22 Stop Date: 10/15/22 Status: Ordered guaiFENesin 100 mg/5 mL oral liquid 10 mL = 200 mg, By Mouth, Every 4 hours, PRN for cough, Maintenance, 10/08/22 13:20:00 EST, Liquid Start Date: 10/08/22 Status: Ordered Heparin Flush 10 units/mL Inj = 5 units, IV Infusion, Every 24 hours, Maintenance, 10/08/22 13:16:00 EST Start Date: 10/08/22 Status: Ordered HYDROmorphone 2 [...] Mouth, Daily Start Date: 04/27/22 Status: Ordered lidocaine 5% topical film 1 patch, Topically, Daily, 0 Refills, Maintenance, 10/02/22 10:34:00 EDT, Patch Start Date: 10/02/22 Status: Ordered Melatonin = 10 mg, By Mouth, Daily at bedtime, PRN as needed for sleep, 0 Refills, Maintenance, 10/07/21 17:54:00 EST, Partial fill upon patient request if the prescription is for a schedule II opioid drug. Start Date: 10/07/21 Status: Ordered metoprolol 25 mg oral tablet, extended release 25 mg, XL Tablet, By Mouth, 10/08/22 11:49:00 EST Start Date: 10/08/22 Stop Date: 10/08/22 Status: Completed Metoprolol Succinate ER 25 mg [...] opioid drug. Start Date: 10/02/22 Status: Ordered Multivitamin 1 tablet, By Mouth, Daily, 0 Refills, Maintenance, 03/25/22 20:22:00 EDT, Partial fill upon patientrequest if the prescription is for a schedule II opioid drug. Start Date: 03/25/22 Status: Ordered naloxone 4 mg/0.1 mL nasal [...] Date: 08/01/22 Status: Ordered Symbicort 160mcg/4.5mcg Inhaler 2, puffs, Inhalation, 2 times a day, # 10.2 Gm, Refills 0, Maintenance, 03/08/19 9:01:22 EDT, Aerosol Start Date: 03/08/19 Status: Ordered Tylenol 325 mg oral tablet 650 mg, 2, tablet, By Mouth, Every 8 hours, Refills 0, Maintenance, 10/02/22 10:34:00 EDT Start Date: 10/02/22 Status: Ordered vancomycin 500 mg injectable powder for injection = 1,250 mg, IV Infusion, Every 24 hours, for 30 days, until 10/31/2022., # 30 each, 0 Refills, Acute11/01/22 10:27:00 EST, 10/02/22 10:27:00 EDT, Partial fill upon patient request if the prescriptionis for a schedule II opioid drug. Start Date: 10/02/22 Stop Date: 11/01/22 Status: Ordered Vitamin B1 100 mg oral [...] Confirmed Active Multiple fractures of ribs Confirmed 2/9/11 Active Old VT (myocardial infarction) X 3 Confirmed Active PVD (peripheral vascular disease) Confirmed Active Underweight Confirmed Active 1Cardiac stents 1991, 1995 Results Radiology Reports * Exam Date Time Procedure Performing Provider Status 10/07/22 6:37 PM XR Femur 2 Views Left [place] Moreno; Luis M (Verified) Notes: (XR Femur 2 Views Left) Reason For Exam: with Pain;Trauma RESULT: Femur 2 Views Left Pelvis 1 or 2 Views, Femur 2 Views Left Hx of Present Illness: Pt presents to ED from rehab facility with c c of generalized body pain, reports that he is currently at rehab facility for rehab of right shoulder after surgery and IV abx. PTPT reports today after getting into bed experienced 10 10 back pain.; Reason: Trauma; With Pain; Clinical Question(s): Fracture COMPARISON: 04/25/2022 FINDINGS: Stable lumbosacral hardware and aortoiliac stents. Left hip arthroplasty with lateral fixation plate and cerclage wires. No evidence of hardware complication. No evidence of acute periprosthetic fracture. Osteopenia. IMPRESSION: No evidence of acute periprosthetic fracture or hardware complication. WSN: [id number] Ordering Physician: Judd Arita Dictated By: Judd Hitchcock MD Dictated Date/Time: 10/07/22 6:41 pm Reviewed By: Judd Hitchcock MD Signed By: Judd Hitchcock MD Signed Date/Time: 10/07/22 6:41 pm Transcribed By: BERENICE Transcribed Date/Time: 10/07/22 6:38 pm * Exam Date Time Procedure Performing Provider Status 10/07/22 6:37 PM Pelvis 1 or 2 Views Jordyn Moreno; Auth (Verified) Notes: (Pelvis 1 or 2 Views) Reason For Exam: With Pain;Trauma RESULT: Pelvis 1 or 2 Views Pelvis 1 or 2 Views, Femur 2 Views Left Hx of Present Illness: Pt presents to ED from rehab facility with c c of generalized body pain, reports that he is currently at rehab facility for rehab of right shoulder after surgery and IV abx. PTPT reports today after getting into bed experienced 10 10 back pain.; Reason: Trauma; With Pain; Clinical Question(s): Fracture COMPARISON: 04/25/2022 FINDINGS: Stable lumbosacral hardware and aortoiliac stents. Left hip arthroplasty with lateral fixation plate and cerclage wires. No evidence of hardware complication. No evidence of acute periprosthetic fracture. Osteopenia. IMPRESSION: No evidence of acute periprosthetic fracture or hardware complication. WSN: [id number] Ordering Physician: Judd Arita Dictated By: Judd Hitchcock MD Dictated Date/Time: 10/07/22 6:41 pm Reviewed By: Judd Hitchcock MD Signed By: Judd Hitchcock MD Signed Date/Time: 10/07/22 6:41 pm Transcribed By: BERENICE Transcribed Date/Time: 10/07/22 6:38 pm * Exam Date Time Procedure Performing Provider Status 10/07/22 6:[address] Lumbar Spine W/ Contrast Janet Ann; Luis M (Verified) Notes: (CT Lumbar Spine W/ Contrast) Reason For Exam: Spine fracture, lumbar, traumatic;Other: RESULT: CT Lumbar Spine W/ Contrast CT Abd/Pelvis W/ IV Contrast Only, CT Lumbar Spine W/ Contrast Hx of Present Illness: Pt presents to ED from rehab facility with c c of generalized body pain, reports that he is currently at rehab facility for rehab of right shoulder after surgery and IV abx. PTPT reports today after getting into bed experienced 10 10 back pain.; Reason: Other:; periumbilicalabdominal pain; Clinical Question(s): Obstruction; Order Comment: TECHNIQUE: Spiral CT through the abdomen and pelvis with IV contrast formatted in 3 planes. Dedicated bone and soft tissue algorithm and reformatted images of the lumbar spine were performed in multiple planes. 100 cc of Omnipaque 300 was administered intravenously. This study was performed withoutoral contrast. Weight-based protocol using automatic tube modulation was used to optimize exposure parameters. CTDIvol Body: 12.90 mGy, DLP Body: 692 mGy*cm. COMPARISON: CT of the abdomen and pelvis dated 09/19/2022.. FINDINGS: Bankruptcy Manager View Findings, Lines and Tubes: None. Visualized Chest: Partially imaged centrilobular emphysema. Subpleural reticulations at the lung bases. No pleural effusion.. No pleural effusion. The heart is normal in size. No pericardial effusion. Diaphragm: Normal. Liver: Normal. Gallbladder: No CT evidence of gallbladder pathology. Bile ducts: No biliary ductal dilation. Spleen: Normal. Pancreas: No inflammatory changes. The lesion is again identified in the pancreatic head, previously containing gas which has since resolved. The cystic lesion measures approximately 1.7 cm on image 50 of series 202. Very small approximately 2 mm cystic focus abutting the main pancreatic duct at the pancreatic neck is unchanged. Accessory pancreatic duct is also noted. Adrenal glands: Normal. Kidneys and ureters: No hydronephrosis, stones, or suspicious masses. Simple appearing renal cysts and hypodensities that are too small to characterize are noted, requiring no dedicated follow up. Bladder: Partially obscured by metallic artifact from left hip prosthetic. Grossly unremarkable. Reproductive organs: Pelvic structures are poorly visualized due to caliber artifact. Stomach, small bowel, and large bowel: There are a few mildly prominent small bowel loops in left abdomen with no discrete transition point to suggest obstruction. No wall thickening or surrounding inflammatory change. There is stool throughout the colon particularly in the redundant transverse colon. Appendix: Normal, best seen in coronal image 38 through 48. Peritoneum and retroperitoneum: No ascites or pneumoperitoneum. No omental or mesenteric lesions. Lymph nodes: No enlarged lymph nodes. Blood vessels: Severe atherosclerotic vascular calcification but no aneurysm. There are stents in the common and external iliac arteries. 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 No evidence of venous thrombosis. Circumaortic left renal vein. Abdominal and pelvic wall: Unremarkable. Bones including the lumbar spine: No acute abnormality. Postsurgical changes from lumbar fusion severity L4-S1 levels with L4-S1 laminectomy. Extensive degenerative changes with loss of intervertebral disc height and marginal osteophytes. Left hip prosthesis. Partially imaged old right rib fractures, with partially imaged plate and screw fixation of the superior most imaged right rib fracture plate and screw fixation. Subtle superior endplate compression fracture at L1 is probably subacute, no significant change in vertebral body height loss since the previous exam. Small amount of gas in thesuperior endplate. Unchanged T12 chronic compression fracture. Unchanged appearance of the left iliac bone with a well-defined lucent focus of sclerotic rim, which may reflect a bone graft donor site. IMPRESSION: No evidence of bowel obstruction. There are a few mildly prominent small bowel loops in the left abdomen without transition point, nonspecific. Subtle superior endplate compression fracture at L1 is probably subacute. There are advanced multilevel degenerative changes of the spine as well as postsurgical changes from posterior fusion and laminectomy from the L4-S1 levels. 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 These are unchanged in size. WSN: [id number] Ordering Physician: Judd Arita Dictated By: Dariana Hunter MD Dictated Date/Time: 10/07/22 6:31 pm Reviewed By: Dariana Hunter MD Signed By: Dariana Hunter MD Signed Date/Time: 10/07/22 6:31 pm Transcribed By: BERENICE Transcribed Date/Time: 10/07/22 6:17 pm * Exam Date Time Procedure Performing Provider Status 10/07/22 6:[address] Abd/Pelvis W/ IV Contrast Only Janet Ashby; Auth (Verified) Notes: (CT Abd/Pelvis W/ IV Contrast Only) Reason For Exam: periumbilical abdominal pain;Other: RESULT: CT Abd/Pelvis W/ IV Contrast Only CT Abd/Pelvis W/ IV Contrast Only, CT Lumbar Spine W/ Contrast Hx of Present Illness: Pt presents to ED from rehab facility with c c of generalized body pain, reports that he is currently at rehab facility for rehab of right shoulder after surgery and IV abx. PTPT reports today after getting into bed experienced 10 10 back pain.; Reason: Other:; periumbilicalabdominal pain; Clinical Question(s): Obstruction; Order Comment: TECHNIQUE: Spiral CT through the abdomen and pelvis with IV contrast formatted in 3 planes. Dedicated bone and soft tissue algorithm and reformatted images of the lumbar spine were performed in multiple planes. 100 cc of Omnipaque 300 was administered intravenously. This study was performed withoutoral contrast. Weight-based protocol using automatic tube modulation was used to optimize exposure parameters. CTDIvol Body: 12.90 mGy, DLP Body: 692 mGy*cm. COMPARISON: CT of the abdomen and pelvis dated 09/19/2022.. FINDINGS: Bankruptcy Manager View Findings, Lines and Tubes: None. Visualized Chest: Partially imaged centrilobular emphysema. Subpleural reticulations at the lung bases. No pleural effusion.. No pleural effusion. The heart is normal in size. No pericardial effusion. Diaphragm: Normal. Liver: Normal. Gallbladder: No CT evidence of gallbladder pathology. Bile ducts: No biliary ductal dilation. Spleen: Normal. Pancreas: No inflammatory changes. The lesion is again identified in the pancreatic head, previously containing gas which has since resolved. The cystic lesion measures approximately 1.7 cm on image 50 of series 202. Very small approximately 2 mm cystic focus abutting the main pancreatic duct at the pancreatic neck is unchanged. Accessory pancreatic duct is also noted. Adrenal glands: Normal. Kidneys and ureters: No hydronephrosis, stones, or suspicious masses. Simple appearing renal cysts and hypodensities that are too small to characterize are noted, requiring no dedicated follow up. Bladder: Partially obscured by metallic artifact from left hip prosthetic. Grossly unremarkable. Reproductive organs: Pelvic structures are poorly visualized due to caliber artifact. Stomach, small bowel, and large bowel: There are a few mildly prominent small bowel loops in left abdomen with no discrete transition point to suggest obstruction. No wall thickening or surrounding inflammatory change. There is stool throughout the colon particularly in the redundant transverse colon. Appendix: Normal, best seen in coronal image 38 through 48. Peritoneum and retroperitoneum: No ascites or pneumoperitoneum. No omental or mesenteric lesions. Lymph nodes: No enlarged lymph nodes. Blood vessels: Severe atherosclerotic vascular calcification but no aneurysm. There are stents in the common and external iliac arteries. 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 No evidence of venous thrombosis. Circumaortic left renal vein. Abdominal and pelvic wall: Unremarkable. Bones including the lumbar spine: No acute abnormality. Postsurgical changes from lumbar fusion severity L4-S1 levels with L4-S1 laminectomy. Extensive degenerative changes with loss of intervertebral disc height and marginal osteophytes. Left hip prosthesis. Partially imaged old right rib fractures, with partially imaged plate and screw fixation of the superior most imaged right rib fracture plate and screw fixation. Subtle superior endplate compression fracture at L1 is probably subacute, no significant change in vertebral body height loss since the previous exam. Small amount of gas in thesuperior endplate. Unchanged T12 chronic compression fracture. Unchanged appearance of the left iliac bone with a well-defined lucent focus of sclerotic rim, which may reflect a bone graft donor site. IMPRESSION: No evidence of bowel obstruction. There are a few mildly prominent small bowel loops in the left abdomen without transition point, nonspecific. Subtle superior endplate compression fracture at L1 is probably subacute. There are advanced multilevel degenerative changes of the spine as well as postsurgical changes from posterior fusion and laminectomy from the L4-S1 levels. 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 These are unchanged in size. WSN: [id number] Ordering Physician: Judd Arita Dictated By: Dariana Hunter MD Dictated Date/Time: 10/07/22 6:31 pm Reviewed By: Dariana Hunter MD Signed By: Dariana Hunter MD Signed Date/Time: 10/07/22 6:31 pm Transcribed By: BERENICE Transcribed Date/Time: 10/07/22 6:17 pm Vital Signs Most recent to oldest [Reference Range]: 1 2 3 Oxygen Saturation [94-100 %] 98 % (10/08/22 4:38 PM) 95 % (10/08/22 4:30 AM) 95 % (10/07/22 11:34 PM) Pulse Rate [55-90 bpm] 93 bpm *H* (10/08/22 4:38 PM) 80 bpm (10/08/22 12:13 PM) 61 bpm (10/08/22 4:30 AM) Blood Pressure [90-138/55-84 mm Hg] 119/84mm Hg (10/08/22 4:38 PM) 126/75mm Hg (10/08/22 12:13 PM) 119/63mm Hg (10/08/22 4:30 AM) Respiratory Rate [16-30 br/min] 18 br/min (10/08/22 4:38 PM) 18 br/min (10/08/22 12:13 PM) 18 br/min (10/08/22 12:13 PM) Temperature [96.8-100.4 DegF] 98.4 DegF (10/08/22 4:30 AM) 98.9 DegF (10/07/22 11:34 PM) 98.9 DegF (10/07/22 8:29 PM) Liters per Minute 2 L/min (10/08/22 4:38 PM) 3 L/min (10/08/22 4:30 AM) 3 L/min (10/07/22 11:34 PM) Mode of Delivery (Oxygen) Nasal cannula (10/08/22 4:38 PM) Nasal cannula (10/08/22 4:30 AM) Nasal cannula (10/07/22 11:34 PM) Blood pressure sites Arm, right (10/08/22 4:30 AM) Arm, right (10/07/22 11:34 PM) Arm, right (10/07/22 8:29 PM) Temperature Route Oral (10/08/22 4:30 AM) Oral (10/07/22 11:34 PM) Oral (10/07/22 8:29 PM) Social History Social History Type Response Tobacco Use: 4 or less cigar ettes(less than 1/4 pack)/day in last 30 days. Sex History and physical note * Sukh AMAYA, Manpreet Elam: PERFORM Event Display: History and Physical Hospital Authored Date: Patient: ??ANT BRUMFIELD ? Age:??67 Years?Sex:??Male?:??1955?? Chief Complaint/Reason for Consultation Left hip pain. R shoulder pain. 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 He was recently discharged from [facility] on 10/02 after being treated for MRSA septic arthritis of the R shoulder. ?? He comes back into the hospital with complaints of abdominal pain, L hip pain and R shoulder pain He denies any recent trauma. There was some concern for some possible GI bleeding with patient reporting dark stool though he confirms that he takes iron supplementation and his Hb has been stable and consistent with recent values Imaging has not demonstrated any acute abnormalities. I asked the ortho team to review his shoulder which they kindly did and removed the gayle from his recent operative intervention. ?? SHx currently residing in SNF while he completes his IV abx smokes 1-2 cigarettes per day no alcohol or illicit drugs ?? FHx mother with stroke Objective ? Vital Signs?? Temperature: 98.4 DegF (10/08/22 04:30:00) Temperature Route: Oral (10/08/22 04:30:00) Pulse Rate: 80 bpm (10/08/22 12:13:00) Respiratory Rate: 18 br/min (10/08/22 12:13:00) Respiratory Rate: 18 br/min (10/08/22 12:13:00) Systolic Blood Pressure: 126 mm Hg (10/08/22 12:13:00) Diastolic Blood Pressure: 75 mm Hg (10/08/22 12:13:00) Blood pressure sites: Arm, right (10/08/22 04:30:00) Mean Arterial Pressure: 82 mm Hg (10/08/22 04:30:00) Pulse Pressure: 56 mm Hg (10/08/22 04:30:00) Oxygen Saturation: 95 % (10/08/22 04:30:00) Liters per Minute: 3 L/min (10/08/22 04:30:00) Mode of Delivery (Oxygen): Nasal cannula (10/08/22 04:30:00) Early Warning Score: 2 (10/08/22 12:14:09) ? Intake/Output? No Data Available ? Physical Exam General:??Alert, comfortable Mental Status:??Oriented to person, place and time. Normal affect. Head:??Normocephalic. Ear, Nose and Throat:??Oropharynx clear, mucous membranes moist Neck:??Supple, Full range of motion. Respiratory:??Clear to auscultation and percussion. No wheezing, rales or rhonchi. Cardiovascular:??Heart sounds normal. No thrills. Regular rate and rhythm, no murmurs Gastrointestinal:??Abdomen soft, normal bowel sounds. mild lower abdo tenderness without rebound/guarding Genitourinary:??No costovertebral angle tenderness. Neurologic:??Cranial nerves II-XII grossly intact. A+Ox3 Skin:??No rashes or lesions. Musculoskeletal:??swelling to R shoulder. gayle to wound without significant erythema or discharge. L hip with good ROM. 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 He was recently discharged from [facility] on 10/02 after being treated for MRSA septic arthritis of the R shoulder. He presents to the ED with R shoulder pain, L hip pain and abdominal pain. ?? L hip pain prior joint replacement no recent trauma per patient XR unrevealing and good ROM on exam no obvious acute pathology ?? Abdo pain Seems to be a somewhat chronic issue CT without acute abnormality Exam is benign no vomiting moving his bowels ?? R shoulder MRSA septic arthritis currently on IV vancomycin recent CT with fluid collection but was reviewed by ortho PA and felt to be appropriate for post surgical changes. appreciate ortho input removed gayle from wound recommending to follow up with Dr Nayak as previously planned ID recs per prior discharge: OPAT Script ?Indication/s: Right shoulder septic arthritis due to MRSA ?Antimicrobial/s: IV Vanc ?Planned duration: 6 weeks ?Start date: 09/20 ?End date: 10/31 ?Vascular access: TBD ?Monitoring labs (test/frequency): CBC w/ diff, CMP, vanc trough, ESR, CRP weekly ?Imaging needed before outpt f/u visit: No ?Suggested outpt f/u visit: Yes, requested ?ID Office ; ?? Concern for possible GI bleed Hb stable from prior appears to be anaemia of chronic disease based on prior haematinics dark stool is related to iron supplementation monitor as outpatient but no role for urgent GI consult at this time ?? Hx of recurrent DVTs on warfarin INR a little low at 1.8 (having missed last night's dose) continue warfarin at 5mg daily outpatient monitoring of INR ?? Chronic pain will continue gabapentin and hydromorphone at outpatient doses ?? History of coronary artery disease status post stent Peripheral vascular disease Hypertension Continue aspirin, statin, isosorbide dinitrate, metoprolol ? Anxiety/ Mood Disorder: mirtazapine 7.5 mg daily at bedtime melatonin hydroxyzine 10 mg BID PRN for anxiety ?? History of IBS dicyclomine as needed ?? Chronic resp failue/COPD O2 requirements at baseline no evidence of exacerbation ?? VTE - on warfarin Full code - discussed with patient ? Histories Allergies Allergies ?(Active and Proposed Allergies Only) Toradol? (Severity: Persistent Mild, Onset: Unknown) ?Reactions: hives, Cephalexin allergy, Naproxen, Metaxalone, Morphine allergy Keflex? (Severity: Unknown severity, Onset: Unknown) ?Reactions: rash ?Comments: tolerates pip/tazo 11/17 Skelaxin? (Severity: Unknown severity, Onset: Unknown) ?Reactions: H/O: migraine naproxen? (Severity: Unknown severity, Onset: Unknown) ?Reactions: lesions on lips ? Past Medical History/Problem List Active Problems??(17) Anemia Anxiety CAD - Coronary artery disease Chronic low back pain COPD (chronic obstructive pulmonary disease) COPD exacerbation Deep vein thrombosis (DVT) of left lower extremity GERD (gastroesophageal reflux disease) HTN (hypertension) Hyperlipidemia Hyponatremia Metabolic alkalosis Multiple fractures of ribs Old VT (myocardial infarction) X 3 PVD (peripheral vascular disease) Smoking greater than 40 pack years Underweight ? Past Surgical History Arthrocentesis, aspiration and/or injection, major joint or bursa (eg, shoulder, hip, knee, subacromial bursa); without ultrasound guidance: 03/13/19 Removal of implant; deep (eg, buried wire, pin, screw, metal band, nail, tonio or plate): 03/13/19 Debridement of bone: 07/13/16 Bilateral iliac Stent placements: 08/25/15 Left lower extremity common femoral artery endarterectomy: 08/13/15 multiple lumbar spine surgeries ? Social History Alcohol Details:??Use: Never. Details:??Use: Never. Substance Abuse Details:??Use: Never. Details:??Use: Never. Tobacco Details:??Use: 4 or less cigarettes(less than 1/4 pack)/day in last 30 days. Details:??Use: 4 or less cigarettes(less than 1/4 pack)/day in last 30 days. ??Interested in cessation: Yes. ??Type: Cigarettes. Details:??Use: 4 or less cigarettes(less than 1/4 pack)/day in last 30 days. Electronic Cigarette/Vaping Details:??Electronic Cigarette Use: Never. Details:??Electronic Cigarette Use: Never. Details:??Electronic Cigarette Use: Never. ? Family History Mother: COPD - Chronic obstructive pulmonary disease; Cardiac valve prolapse Father: Stroke Sister (Brinda): Asthma Other (Another sister-): Lupus ? Medications Home Medications Acetaminophen (Tylenol 325 mg oral tablet)?650?Milligram?2?tablet?By Mouth?Every 8 hours Albuterol (Albuterol (Eqv-ProAir HFA) 90 mcg/inh inhalation aerosol)?2?puff(s)?Inhalation?Every 6 hours?as needed?Wheezing/Shortness of Breath Aspirin (aspirin 81 mg oral delayed release tablet)?81?Milligram?1?tablet?By Mouth?Daily Atorvastatin (atorvastatin 80 mg oral tablet)?1?tab(s)?80?Milligram?By Mouth?Daily at bedtime Bisacodyl (bisacodyl 10 mg rectal suppository)?1?suppository(ies)?10?Milligram?Rectal ly?Daily?as needed?for constipation Budesonide-Formoterol (Symbicort 160mcg/4.5mcg Inhaler)?2?puff(s)?Inhalation?2 times a day Collagenase Topical (Santyl 250 u/gm ointment)?1?lore?Topically?Daily?left lateral leg ulcer Dicyclomine (dicyclomine 10 mg oral capsule)?1?capsule?10?Milligram?By Mouth?4 times a day Docusate (docusate sodium 100 mg oral capsule)?1?capsule?100?Milligram?By Mouth?Daily?as needed?constipation Duloxetine (duloxetine 60 mg oral enteric coated capsule)?1?capsule?60?Milligram?By Mouth?Daily Ferrous Sulfate (ferrous sulfate 325 mg oral enteric coated tablet)?325?Milligram?1?tablet?By Mouth?Daily Gabapentin (gabapentin 100 mg oral capsule)?100?Milligram?1?capsule?By Mouth?2 times a day?for 7?Days Guaifenesin (guaiFENesin 100 mg/5 mL oral liquid)?10?Milliliter?200?Milligram?By Mouth?Every 4 hours?as needed?for cough heparin flush (Heparin Flush 10 units/mL Inj)?5?unit(s)?IV Infusion?Every 24 hours Hydromorphone (HYDROmorphone 2 mg oral tablet)?1?tab(s)?2?Milligram?By Mouth?2 times a day?as needed?as needed for pain?for 3?Days HydrOXYzine (hydrOXYzine hydrochloride 10 mg oral tablet)?1?tab(s)?10?Milligram?By Mouth?2 times a day?as needed?Anxiety Isosorbide Dinitrate (isosorbide dinitrate 30 mg oral tablet)?1?tab(s)?30?Milligram?By Mouth?Daily Lidocaine Topical (lidocaine 5% topical film)?1 patch?Topically?Daily Melatonin?10?Milligram?By Mouth?Daily at bedtime?as needed?as needed for sleep Metoprolol (Metoprolol Succinate ER 25 mg oral tablet, extended release)?1?tab(s)?25?Milligram?By Mouth?Daily Mirtazapine (mirtazapine 15 mg oral tablet)?0.5?tab(s)?7.5?Milligram?By Mouth?Daily at bedtime Multivitamin?1?tab(s)?By Mouth?Daily nalOXONE (naloxone 4 mg/0.1 mL nasal spray)?INSTILL 1 SPRAY INTRANASALLY NEEDED FOR SIGNS OF NARCOTIC OVERDOSE Nicotine (nicotine 21 mg/24 hr transdermal film, extended release)?1?patch(es)?Topically?Daily Pantoprazole (pantoprazole 40 mg oral delayed release tablet)?1?tab(s)?40?Milligram?By Mouth?Daily Senna (Senna 8.6 mg oral tablet)?8.6?Milligram?1?tab(s)?By Mouth?Daily at bedtime Sodium Biphosphate-Sodium Phosphate (Fleet Enema 19 gm-7 gm rectal enema)?1?Each?Rectally?Once?as needed?as needed for constipation Thiamine (Vitamin B1 100 mg oral tablet)?100?Milligram?1?tablet?By Mouth?Daily umeclidinium (Incruse Ellipta 62.5 mcg/inh inhalation powder)?1?puff(s)?Inhalation?Every 24 hours Vancomycin (vancomycin 500 mg injectable powder for injection)?1,250?Milligram?IV Infusion?Every 24 hours?for 30?Days?until 10/31/2022. Warfarin (warfarin 5 mg oral tablet)?1?tab(s)?5?Milligram?By Mouth?Daily ? Results Recent Labs BLOOD BANK Blood Type A Negative ()?? 10/08/2022 00:33 Antibody Screen Negative ()?? 10/08/2022 00:33 ?? BLOOD COUNT & DIFF WBC 9.7 k/mm3 ()?? 10/08/2022 06:11 RBC 3.18 m/mm3 (Low)?? 10/08/2022 06:11 Hgb 8.3 Gm/dL (Low)?? 10/08/2022 06:11 Hct 28.1 % (Low)?? 10/08/2022 06:11 MCV 88.4 femtoliters ()?? 10/08/2022 06:11 MCH 26.1 pg (Low)?? 10/08/2022 06:11 MCHC 29.5 g/dL (Low)?? 10/08/2022 06:11 Platelet Count 616 k/mm3 (High)?? 10/08/2022 06:11 RDW-SD 54.9 femtoliters (High)?? 10/08/2022 06:11 MPV 8.8 femtoliters (Low)?? 10/08/2022 06:11 Nucleated RBC (Automated) 0.0 #/100 WBC'S ()?? 10/08/2022 06:11 Abs. NRBC 0.0 k/mm3 ()?? 10/08/2022 06:11 Abs. Neut 6.0 k/mm3 ()?? 10/08/2022 06:11 Abs. Lymph 1.9 k/mm3 ()?? 10/08/2022 06:11 Abs. [place] 1.2 k/mm3 ()?? 10/08/2022 06:11 Abs. Eo 0.4 k/mm3 ()?? 10/08/2022 06:11 Abs. Baso 0.1 k/mm3 ()?? 10/08/2022 06:11 Neut % 61.8 % ()?? 10/08/2022 06:11 Lymph % 19.3 % ()?? 10/08/2022 06:11 [place] % 11.9 % (High)?? 10/08/2022 06:11 Eos % 3.8 % ()?? 10/08/2022 06:11 Baso % 1.0 % ()?? 10/08/2022 06:11 Imm Gran 2.2 % ()?? 10/08/2022 06:11 Abs. Imm Gran 0.2 k/mm3 ()?? 10/08/2022 06:11 ?? CHEM GENERAL Sodium 140 mmol/L ()?? 10/08/2022 06:11 Potassium 4.2 mmol/L ()?? 10/08/2022 06:11 Chloride 101 mmol/L ()?? 10/08/2022 06:11 Bicarbonate Level 30 mmol/L (High)?? 10/08/2022 06:11 Anion Gap 9 ()?? 10/08/2022 06:11 Glucose Level 86 mg/dL ()?? 10/07/2022 18:43 BUN 9 mg/dL ()?? 10/08/2022 06:11 Creatinine-Blood 0.7 mg/dL ()?? 10/08/2022 06:11 Estimated GFR Creatinine 104 ML/MIN/1.73 M2 ()?? 10/08/2022 06:11 Calcium 8.7 mg/dL ()?? 10/07/2022 18:43 Protein, Total 6.3 Gm/dL ()?? 10/08/2022 06:11 Albumin 3.1 Gm/dL (Low)?? 10/08/2022 06:11 AG Ratio 0.9 ()?? 10/07/2022 18:43 Alkaline Phosphatase 229 units/L (High)?? 10/08/2022 06:11 AST (SGOT) 15 units/L ()?? 10/08/2022 06:11 ALT (SGPT) 8 units/L ()?? 10/08/2022 06:11 Bilirubin, Total 0.2 mg/dL ()?? 10/08/2022 06:11 Bilirubin, Direct <0.2 mg/dL ()?? 10/08/2022 06:11 Bilirubin, Indirect Direct bilirubin is less than the measureable limit. Therefore, indirect mg/dL ()?? 10/08/2022 06:11 Lactate 0.7 mmol/L ()?? 10/07/2022 18:43 ?? COAG INR 1.8 (High)?? 10/08/2022 09:05 Protime (PT) 18.4 seconds (High)?? 10/08/2022 09:05 ?? MISC. CHEMISTRY Hold Gel Top SPECIMEN DISCARDED AFTER 1 WEEK ()?? 10/08/2022 09:05 ?? VIROLOGY COVID-19 by RT-PCR NEGATIVE ()?? 10/07/2022 21:39 ? Imaging(s) ?CT Lumbar Spine W/ Contrast ?? 10/07/2022 18:11??by Dariana Hunter MD ? FINDINGS: ?? Bankruptcy Manager View Findings, Lines and Tubes: None. ?? Visualized Chest: Partially imaged centrilobular emphysema. Subpleural reticulations at the lung bases. No pleural effusion.. No pleural effusion. The heart is normal in size. No pericardial effusion. ?? Diaphragm: Normal. ?? Liver: Normal. ?? Gallbladder: No CT evidence of gallbladder pathology. ?? Bile ducts: No biliary ductal dilation. ?? Spleen: Normal. ?? Pancreas: No inflammatory changes. The lesion is again identified in the pancreatic head, previously containing gas which has since resolved. The cystic lesion measures approximately 1.7 cm on image 50 of series 202. Very small approximately 2 mm cystic focus abutting the main pancreatic duct at the pancreatic neck is unchanged. Accessory pancreatic duct is also noted. ?? Adrenal glands: Normal. ?? Kidneys and ureters: No hydronephrosis, stones, or suspicious masses. Simple appearing renal cysts and hypodensities that are too small to characterize are noted, requiring no dedicated follow up. ?? Bladder: Partially obscured by metallic artifact from left hip prosthetic. Grossly unremarkable. ?? Reproductive organs: Pelvic structures are poorly visualized due to caliber artifact. ?? Stomach, small bowel, and large bowel: There are a few mildly prominent small bowel loops in left abdomen with no discrete transition point to suggest obstruction. No wall thickening or surrounding inflammatory change. There is stool throughout the colon particularly in the redundant transverse colon. ?? Appendix: Normal, best seen in coronal image 38 through 48. ?? Peritoneum and retroperitoneum: No ascites or pneumoperitoneum. No omental or mesenteric lesions. ?? Lymph nodes: No enlarged lymph nodes. ?? Blood vessels: Severe atherosclerotic vascular calcification but no aneurysm. There are stents in the common and external iliac arteries. 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 No evidence of venous thrombosis. Circumaortic left renal vein. ?? Abdominal and pelvic wall: Unremarkable. ?? Bones including the lumbar spine: No acute abnormality. Postsurgical changes from lumbar fusion severity L4-S1 levels with L4-S1 laminectomy. Extensive degenerative changes with loss of intervertebral disc height and marginal osteophytes. Left hip prosthesis. Partially imaged old right rib fractures, with partially imaged plate and screw fixation of the superior most imaged right rib fracture plate and screw fixation. Subtle superior endplate compression fracture at L1 is probably subacute, no significant change in vertebral body height loss since the previous exam. Small amount of gas in thesuperior endplate. Unchanged T12 chronic compression fracture. Unchanged appearance of the left iliac bone with a well-defined lucent focus of sclerotic rim, which may reflect a bone graft donor site. ?? IMPRESSION: ?? No evidence of bowel obstruction. There are a few mildly prominent small bowel loops in the left abdomen without transition point, nonspecific. ?? Subtle superior endplate compression fracture at L1 is probably subacute. There are advanced multilevel degenerative changes of the spine as well as postsurgical changes from posterior fusion and laminectomy from the L4-S1 levels. ?? 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 These are unchanged in size. ?Pelvis 1 or 2 Views ?? 10/07/2022 18:37??by Judd Hitchcock MD ? IMPRESSION: ?? No evidence of acute periprosthetic fracture or hardware complication. WSN: [id number] ?XR Femur 2 Views Left ?? 10/07/2022 18:37??by Judd Hitchcock MD ? IMPRESSION: ?? No evidence of acute periprosthetic fracture or hardware complication. WSN: [id number] ?CT Abd/Pelvis W/ IV Contrast Only ?? 10/07/2022 18:11??by Elsa AMAYA, Dariana N ? IMPRESSION: ?? No evidence of bowel obstruction. There are a few mildly prominent small bowel loops in the left abdomen without transition point, nonspecific. ?? Subtle superior endplate compression fracture at L1 is probably subacute. There are advanced multilevel degenerative changes of the spine as well as postsurgical changes from posterior fusion and laminectomy from the L4-S1 levels. ?? 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 These are unchanged in size. ? Microbiology(s) ?COVID-19 by RT-PCR ?? 10/07/2022 21:39 ?negative ? Hospital Progress note * Araceli Fam RN: PERFORM, SIGN, VERIFY Event Display: Progress Note Hospital Authored Date: Patient: ANT BRUMFIELD Age: 67 years Sex: Male : 1955 Associated Diagnoses: None Author: Araceli Fam RN Discharge Plan Case Management Discharge Plan : Case Management Discharge Plan Data 10/08/2022 13:46 EST Discharge Level of Care at Discharge residential facility Discharge Nursing Homes/Rehab Facilities [phone] Discharge Transportation Arranged [facility] [address] [facility] [phone] Discharge Arranged Transport Date/Time 10/08/2022 16:00 Mode of Transportation Arranged Ambulance Name of Person Notified of Transfer Nehemias Brumfield notified via phone. Note * Sukh AMAYA, Manpreet Elam: PERFORM Event Display: Discharge/Transfer Note Hospital Authored Date: Patient: ??ANT BRUMFIELD ? Age:??67 Years?Sex:??Male?:??1955?? Patient Information Discharge Location: [facility] Primary Care Physician: Jorge Garcia III, MD Admit Date/Time: 10/07/22 16:23 Discharge Disposition Discharge Disposition: [facility] Facility[facility]Rehab Discharge Diagnosis Anemia (D64.9) Chronic pain (G89.29) Hip pain (M25.559) Septic arthritis (M00.9) Shoulder pain (M25.519) Anxiety CAD - Coronary artery disease COPD (chronic obstructive pulmonary disease) Chronic low back pain Deep vein thrombosis (DVT) of left lower extremity GERD (gastroesophageal reflux disease) HTN (hypertension) History of Alcohol dependency Hyperlipidemia PVD (peripheral vascular disease) ?? _ Discharge Medications Acetaminophen (Tylenol 325 mg oral tablet)?650?Milligram?2?tablet?By Mouth?Every 8 hours Albuterol (Albuterol (Eqv-ProAir HFA) 90 mcg/inh inhalation aerosol)?2?puff(s)?Inhalation?Every 6 hours?as needed?Wheezing/Shortness of Breath Aspirin (aspirin 81 mg oral delayed release tablet)?81?Milligram?1?tablet?By Mouth?Daily Atorvastatin (atorvastatin 80 mg oral tablet)?1?tab(s)?80?Milligram?By Mouth?Daily at bedtime Bisacodyl (bisacodyl 10 mg rectal suppository)?1?suppository(ies)?10?Milligram?Rectal ly?Daily?as needed?for constipation Budesonide-Formoterol (Symbicort 160mcg/4.5mcg Inhaler)?2?puff(s)?Inhalation?2 times a day Collagenase Topical (Santyl 250 u/gm ointment)?1?lore?Topically?Daily?left lateral leg ulcer Dicyclomine (dicyclomine 10 mg oral capsule)?1?capsule?10?Milligram?By Mouth?4 times a day Docusate (docusate sodium 100 mg oral capsule)?1?capsule?100?Milligram?By Mouth?Daily?as needed?constipation Duloxetine (duloxetine 60 mg oral enteric coated capsule)?1?capsule?60?Milligram?By Mouth?Daily Ferrous Sulfate (ferrous sulfate 325 mg oral enteric coated tablet)?325?Milligram?1?tablet?By Mouth?Daily Gabapentin (gabapentin 100 mg oral capsule)?100?Milligram?1?capsule?By Mouth?2 times a day?for 7?Days Guaifenesin (guaiFENesin 100 mg/5 mL oral liquid)?10?Milliliter?200?Milligram?By Mouth?Every 4 hours?as needed?for cough heparin flush (Heparin Flush 10 units/mL Inj)?5?unit(s)?IV Infusion?Every 24 hours Hydromorphone (HYDROmorphone 2 mg oral tablet)?1?tab(s)?2?Milligram?By Mouth?2 times a day?as needed?as needed for pain?for 3?Days HydrOXYzine (hydrOXYzine hydrochloride 10 mg oral tablet)?1?tab(s)?10?Milligram?By Mouth?2 times a day?as needed?Anxiety Isosorbide Dinitrate (isosorbide dinitrate 30 mg oral tablet)?1?tab(s)?30?Milligram?By Mouth?Daily Lidocaine Topical (lidocaine 5% topical film)?1 patch?Topically?Daily Melatonin?10?Milligram?By Mouth?Daily at bedtime?as needed?as needed for sleep Metoprolol (Metoprolol Succinate ER 25 mg oral tablet, extended release)?1?tab(s)?25?Milligram?By Mouth?Daily Mirtazapine (mirtazapine 15 mg oral tablet)?0.5?tab(s)?7.5?Milligram?By Mouth?Daily at bedtime Multivitamin?1?tab(s)?By Mouth?Daily nalOXONE (naloxone 4 mg/0.1 mL nasal spray)?INSTILL 1 SPRAY INTRANASALLY NEEDED FOR SIGNS OF NARCOTIC OVERDOSE Nicotine (nicotine 21 mg/24 hr transdermal film, extended release)?1?patch(es)?Topically?Daily Pantoprazole (pantoprazole 40 mg oral delayed release tablet)?1?tab(s)?40?Milligram?By Mouth?Daily Senna (Senna 8.6 mg oral tablet)?8.6?Milligram?1?tab(s)?By Mouth?Daily at bedtime Sodium Biphosphate-Sodium Phosphate (Fleet Enema 19 gm-7 gm rectal enema)?1?Each?Rectally?Once?as needed?as needed for constipation Thiamine (Vitamin B1 100 mg oral tablet)?100?Milligram?1?tablet?By Mouth?Daily umeclidinium (Incruse Ellipta 62.5 mcg/inh inhalation powder)?1?puff(s)?Inhalation?Every 24 hours Vancomycin (vancomycin 500 mg injectable powder for injection)?1,250?Milligram?IV Infusion?Every 24 hours?for 30?Days?until 10/31/2022. Warfarin (warfarin 5 mg oral tablet)?1?tab(s)?5?Milligram?By Mouth?Daily ? Medications Started none Medications Discontinued none Doses Changed none PCP Follow-Up/Heads-Up please monitor labs per OPAT script please ensure that patient follows up with ID and orthopaedics please continue to manage his chronic pain Future Appointments Tuesday 9:30 AM EST ?? With: Lindsay FREEMAN, Julia Mayer Where: [facility] [address] [place] [phone]- Tuesday 9:00 AM EST ?? 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 He was recently discharged from [facility] on 10/02 after being treated for MRSA septic arthritis of the R shoulder. He presents to the ED with R shoulder pain, L hip pain and abdominal pain. ?? L hip pain prior joint replacement no recent trauma per patient XR unrevealing and good ROM on exam no obvious acute pathology ?? Abdo pain Seems to be a somewhat chronic issue CT without acute abnormality Exam is benign no vomiting moving his bowels ?? R shoulder MRSA septic arthritis currently on IV vancomycin recent CT with fluid collection but was reviewed by ortho PA and felt to be appropriate for post surgical changes. appreciate ortho input removed gayle from wound recommending to follow up with Dr Nayak as previously planned ID recs per prior discharge: OPAT Script ?Indication/s: Right shoulder septic arthritis due to MRSA ?Antimicrobial/s: IV Vanc ?Planned duration: 6 weeks ?Start date: 09/20 ?End date: 10/31 ?Vascular access: TBD ?Monitoring labs (test/frequency): CBC w/ diff, CMP, vanc trough, ESR, CRP weekly ?Imaging needed before outpt f/u visit: No ?Suggested outpt f/u visit: Yes, requested ?ID Office ; ?? Concern for possible GI bleed Hb stable from prior appears to be anaemia of chronic disease based on prior haematinics dark stool is related to iron supplementation monitor as outpatient but no role for urgent GI consult at this time ?? Hx of recurrent DVTs on warfarin INR a little low at 1.8 (having missed last night's dose) continue warfarin at 5mg daily outpatient monitoring of INR ?? Chronic pain will continue gabapentin and hydromorphone at outpatient doses ?? History of coronary artery disease status post stent Peripheral vascular disease Hypertension Continue aspirin, statin, isosorbide dinitrate, metoprolol ? Anxiety/ Mood Disorder: mirtazapine 7.5 mg daily at bedtime melatonin hydroxyzine 10 mg BID PRN for anxiety ?? History of IBS dicyclomine as needed ?? Chronic resp failue/COPD O2 requirements at baseline no evidence of exacerbation ?? Full code - discussed with patient ? Vital Signs?? Temperature: 98.4 DegF (10/08/22 04:30:00) Temperature Route: Oral (10/08/22 04:30:00) Pulse Rate: 80 bpm (10/08/22 12:13:00) Respiratory Rate: 18 br/min (10/08/22 12:13:00) Respiratory Rate: 18 br/min (10/08/22 12:13:00) Systolic Blood Pressure: 126 mm Hg (10/08/22 12:13:00) Diastolic Blood Pressure: 75 mm Hg (10/08/22 12:13:00) Blood pressure sites: Arm, right (10/08/22 04:30:00) Mean Arterial Pressure: 82 mm Hg (10/08/22 04:30:00) Pulse Pressure: 56 mm Hg (10/08/22 04:30:00) Oxygen Saturation: 95 % (10/08/22 04:30:00) Liters per Minute: 3 L/min (10/08/22 04:30:00) Mode of Delivery (Oxygen): Nasal cannula (10/08/22 04:30:00) Early Warning Score: 2 (10/08/22 12:14:09) ? . Physical Exam General:??Alert, comfortable Mental Status:??Oriented to person, place and time. Normal affect. Head:??Normocephalic. Ear, Nose and Throat:??Oropharynx clear, mucous membranes moist Neck:??Supple, Full range of motion. Respiratory:??Clear to auscultation and percussion. No wheezing, rales or rhonchi. Cardiovascular:??Heart sounds normal. No thrills. Regular rate and rhythm, no murmurs Gastrointestinal:??Abdomen soft, normal bowel sounds. mild lower abdo tenderness without rebound/guarding Genitourinary:??No costovertebral angle tenderness. Neurologic:??Cranial nerves II-XII grossly intact. A+Ox3 Skin:??No rashes or lesions. Musculoskeletal:??swelling to R shoulder. gayle to wound (now removed)??without significant erythema or discharge. L hip with good ROM. no overlying skin changes Lymphatics:??Palpation of neck reveals no swelling or tenderness of neck nodes Pending Results INR ordered on 10/09/2022 Type and Screen ordered on 10/07/2022 Patient Education Titles Warfarin Oral Tablet?? Follow-Up Appointments Added Follow Up ?Time Frame ?Comments Jorge Garcia?1 to 2 weeks Home Health Face to Face ^[facility] Results Discharge Labs BLOOD BANK Blood Type A Negative ()?? 10/08/2022 00:33 Antibody Screen Negative ()?? 10/08/2022 00:33 ?? BLOOD COUNT & DIFF WBC 9.7 k/mm3 ()?? 10/08/2022 06:11 RBC 3.18 m/mm3 (Low)?? 10/08/2022 06:11 Hgb 8.3 Gm/dL (Low)?? 10/08/2022 06:11 Hct 28.1 % (Low)?? 10/08/2022 06:11 MCV 88.4 femtoliters ()?? 10/08/2022 06:11 MCH 26.1 pg (Low)?? 10/08/2022 06:11 MCHC 29.5 g/dL (Low)?? 10/08/2022 06:11 Platelet Count 616 k/mm3 (High)?? 10/08/2022 06:11 RDW-SD 54.9 femtoliters (High)?? 10/08/2022 06:11 MPV 8.8 femtoliters (Low)?? 10/08/2022 06:11 Nucleated RBC (Automated) 0.0 #/100 WBC'S ()?? 10/08/2022 06:11 Abs. NRBC 0.0 k/mm3 ()?? 10/08/2022 06:11 Abs. Neut 6.0 k/mm3 ()?? 10/08/2022 06:11 Abs. Lymph 1.9 k/mm3 ()?? 10/08/2022 06:11 Abs. [place] 1.2 k/mm3 ()?? 10/08/2022 06:11 Abs. Eo 0.4 k/mm3 ()?? 10/08/2022 06:11 Abs. Baso 0.1 k/mm3 ()?? 10/08/2022 06:11 Neut % 61.8 % ()?? 10/08/2022 06:11 Lymph % 19.3 % ()?? 10/08/2022 06:11 [place] % 11.9 % (High)?? 10/08/2022 06:11 Eos % 3.8 % ()?? 10/08/2022 06:11 Baso % 1.0 % ()?? 10/08/2022 06:11 Imm Gran 2.2 % ()?? 10/08/2022 06:11 Abs. Imm Gran 0.2 k/mm3 ()?? 10/08/2022 06:11 ?? CHEM GENERAL Sodium 140 mmol/L ()?? 10/08/2022 06:11 Potassium 4.2 mmol/L ()?? 10/08/2022 06:11 Chloride 101 mmol/L ()?? 10/08/2022 06:11 Bicarbonate Level 30 mmol/L (High)?? 10/08/2022 06:11 Anion Gap 9 ()?? 10/08/2022 06:11 Glucose Level 86 mg/dL ()?? 10/07/2022 18:43 BUN 9 mg/dL ()?? 10/08/2022 06:11 Creatinine-Blood 0.7 mg/dL ()?? 10/08/2022 06:11 Estimated GFR Creatinine 104 ML/MIN/1.73 M2 ()?? 10/08/2022 06:11 Calcium 8.7 mg/dL ()?? 10/07/2022 18:43 Protein, Total 6.3 Gm/dL ()?? 10/08/2022 06:11 Albumin 3.1 Gm/dL (Low)?? 10/08/2022 06:11 AG Ratio 0.9 ()?? 10/07/2022 18:43 Alkaline Phosphatase 229 units/L (High)?? 10/08/2022 06:11 AST (SGOT) 15 units/L ()?? 10/08/2022 06:11 ALT (SGPT) 8 units/L ()?? 10/08/2022 06:11 Bilirubin, Total 0.2 mg/dL ()?? 10/08/2022 06:11 Bilirubin, Direct <0.2 mg/dL ()?? 10/08/2022 06:11 Bilirubin, Indirect Direct bilirubin is less than the measureable limit. Therefore, indirect mg/dL ()?? 10/08/2022 06:11 Lactate 0.7 mmol/L ()?? 10/07/2022 18:43 ?? COAG INR 1.8 (High)?? 10/08/2022 09:05 Protime (PT) 18.4 seconds (High)?? 10/08/2022 09:05 ?? MISC. CHEMISTRY Hold Gel Top SPECIMEN DISCARDED AFTER 1 WEEK ()?? 10/08/2022 09:05 ? VIROLOGY COVID-19 by RT-PCR NEGATIVE ()?? 10/07/2022 21:39 ? Procedures(s) ?Procedure Note ?? 10/08/2022 11:14??by Jackeline Pineda ?Patient underwent right shoulder I&D for MRSA septic arthritis 09/[address] Nayak. Remains on IV vancomycin. Shoulder ROM improved, continues with restrictions secondary to mild pain. Working with PT at rehab. Inflammatory markers downtrending. CT scan with some fluid remaining, likely post-operative changes/ chronic fluid collection from RTC tear. Palpable radial pulse. EPL fun ction absent secondary to previous injury. FPL and intrinsics intact. Sensation to light touch intact in radial, median, and ulnar nerve distributions. ?? Verbal consent obtained from patient for staple removal from right shoulder. [place] removed without incident. Steri-strips applied. ?? Patient has outpatient follow-up scheduled with Dr. Nayak 10/13. Call [facility] with any further questions/ concerns ([phone]). ? Imaging(s) ?CT Lumbar Spine W/ Contrast ?? 10/07/2022 18:11??by Dariana Hunter MD ? FINDINGS: ?? Bankruptcy Manager View Findings, Lines and Tubes: None. ?? Visualized Chest: Partially imaged centrilobular emphysema. Subpleural reticulations at the lung bases. No pleural effusion.. No pleural effusion. The heart is normal in size. No pericardial effusion. ?? Diaphragm: Normal. ?? Liver: Normal. ?? Gallbladder: No CT evidence of gallbladder pathology. ?? Bile ducts: No biliary ductal dilation. ?? Spleen: Normal. ?? Pancreas: No inflammatory changes. The lesion is again identified in the pancreatic head, previously containing gas which has since resolved. The cystic lesion measures approximately 1.7 cm on image 50 of series 202. Very small approximately 2 mm cystic focus abutting the main pancreatic duct at the pancreatic neck is unchanged. Accessory pancreatic duct is also noted. ?? Adrenal glands: Normal. ?? Kidneys and ureters: No hydronephrosis, stones, or suspicious masses. Simple appearing renal cysts and hypodensities that are too small to characterize are noted, requiring no dedicated follow up. ?? Bladder: Partially obscured by metallic artifact from left hip prosthetic. Grossly unremarkable. ?? Reproductive organs: Pelvic structures are poorly visualized due to caliber artifact. ?? Stomach, small bowel, and large bowel: There are a few mildly prominent small bowel loops in left abdomen with no discrete transition point to suggest obstruction. No wall thickening or surrounding inflammatory change. There is stool throughout the colon particularly in the redundant transverse colon. ?? Appendix: Normal, best seen in coronal image 38 through 48. ?? Peritoneum and retroperitoneum: No ascites or pneumoperitoneum. No omental or mesenteric lesions. ?? Lymph nodes: No enlarged lymph nodes. ?? Blood vessels: Severe atherosclerotic vascular calcification but no aneurysm. There are stents in the common and external iliac arteries. 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 No evidence of venous thrombosis. Circumaortic left renal vein. ?? Abdominal and pelvic wall: Unremarkable. ?? Bones including the lumbar spine: No acute abnormality. Postsurgical changes from lumbar fusion severity L4-S1 levels with L4-S1 laminectomy. Extensive degenerative changes with loss of intervertebral disc height and marginal osteophytes. Left hip prosthesis. Partially imaged old right rib fractures, with partially imaged plate and screw fixation of the superior most imaged right rib fracture plate and screw fixation. Subtle superior endplate compression fracture at L1 is probably subacute, no significant change in vertebral body height loss since the previous exam. Small amount of gas in thesuperior endplate. Unchanged T12 chronic compression fracture. Unchanged appearance of the left iliac bone with a well-defined lucent focus of sclerotic rim, which may reflect a bone graft donor site. ?? IMPRESSION: ?? No evidence of bowel obstruction. There are a few mildly prominent small bowel loops in the left abdomen without transition point, nonspecific. ?? Subtle superior endplate compression fracture at L1 is probably subacute. There are advanced multilevel degenerative changes of the spine as well as postsurgical changes from posterior fusion and laminectomy from the L4-S1 levels. ?? 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 These are unchanged in size. ?Pelvis 1 or 2 Views ?? 10/07/2022 18:37??by Judd Hitchcock MD ? IMPRESSION: ?? No evidence of acute periprosthetic fracture or hardware complication. WSN: [id number] ?XR Femur 2 Views Left ?? 10/07/2022 18:37??by Judd Hitchcock MD ? IMPRESSION: ?? No evidence of acute periprosthetic fracture or hardware complication. WSN: [id number] ?CT Abd/Pelvis W/ IV Contrast Only ?? 10/07/2022 18:11??by Elsa AMAYA, Dariana Perry ? IMPRESSION: ?? No evidence of bowel obstruction. There are a few mildly prominent small bowel loops in the left abdomen without transition point, nonspecific. ?? Subtle superior endplate compression fracture at L1 is probably subacute. There are advanced multilevel degenerative changes of the spine as well as postsurgical changes from posterior fusion and laminectomy from the L4-S1 levels. ?? 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 These are unchanged in size. ? Microbiology(s) ?COVID-19 by RT-PCR ?? 10/07/2022 21:39 ?negative ? 30_ minutes spent on discharge * Sukh AMAYA, Manpreet Elam: PERFORM, SIGN, VERIFY Event Display: Patient Education Handout Authored Date: * Manpreet Luz MD: PERFORM Event Display: Patient Education Leaflets Authored Date: Warfarin Oral Tablet ?? [id number] Warfarin Oral Tablet Brands: Coumadin, Jantoven Uses This medicine is used for the following purposes: ??? prevent blood clots ??? blood clot ?? Instructions This medicine may be taken with or without food. It is very important that you take the medicine at about the same time every day. It will work bestif you do this. Keep the medicine at room temperature. Avoid heat and direct light. It is important that you keep taking each dose of this medicine on time even if you are feeling well. If you forget to take a dose on time, take it as soon as you remember. If you don't remember until the next day, please call your doctor for instructions. Never take a double dose or skip a dose unless your provider tells you to do so. Tell your doctor and pharmacist about all your medicines. Include prescription and kzzi-[id number], vitamins, and herbal medicines. ?? Cautions Tell your doctor and pharmacist if you ever had an allergic reaction to a medicine. Do not use the medication any more than instructed. Contact your doctor if you notice a change in the amount or darkening of your urine. Tell the doctor or pharmacist if you are , planning to be , or . Women who are or in their childbearing years should not touch or handle this medicine. This medicine can be absorbed through the woman's skin and harm the unborn baby. Call your doctor right away if you notice any unusual bleeding or bruising. Do not share this medicine with anyone who has not been prescribed this medicine. ?? Side Effects The following is a list of some common side effects from this medicine. Please speak with your doctor about what you should do if you experience these or other side effects. ??? increased risk of bruising and bleeding ??? liver problems ??? nausea ??? red, burning, or itchy skin ??? stomach upset or abdominal pain ??? bloody or dark, tarry stools Call your doctor or get medical help right away if you notice any of these more serious side effects: ??? loss of balance ??? bleeding or bruising ??? chest pain ??? coughing up blood or vomit that looks like coffee grounds ??? dizziness ??? fainting ??? severe or persistent headache ??? sudden leg pain, swelling, warmth or redness ??? signs of liver damage (such as yellowing of eye or skin, dark urine, or unusual tiredness) ??? pale or blue skin, lips or fingernails ??? light colored stool ??? symptoms of stroke (such as one-sided weakness, slurred speech, confusion) ??? blood in urine A few people may have an allergic reaction to this medicine. Symptoms can include difficulty breathing, skin rash, itching, swelling, or severe dizziness. If you notice any of these symptoms, seek medical help quickly. ?? Extra Please speak with your doctor, nurse, or pharmacist if you have any questions about this medicine. ?? [email or web address] IMPORTANT NOTE: This document tells you briefly how to take your medicine, but it does not tell youall there is to know about it. Your doctor or pharmacist may give you other documents about your medicine. Please talk to them if you have any questions. Always follow their advice. There is a more complete description of this medicine available in [place]. Scan this code on your smartphone or tablet or use the web address below. You can also ask your pharmacist for a printout. If you have any questions, please ask your pharmacist. The display and use of this drug information is subject to Terms of Use. Copyright(c) 2021 [employer]. ?? 7508-6632 [employer]. All rights reserved. This information is not intended as a substitute for professional medical care. Always follow your healthcare professional's instructions. ?? CT Lumbar spine W contrast IV * DOLORES Moreira S: MIRTHA Hunter MD, Dariana N: VERIFY Event Display: Result: Authored Date: [id number] CT Abd/Pelvis W/ IV Contrast Only, CT Lumbar Spine W/ Contrast Hx of Present Illness: Pt presents to ED from rehab facility with c c of generalized body pain, reports that he is currently at rehab facility for rehab of right shoulder after surgery and IV abx. PTPT reports today after getting into bed experienced 10 10 back pain.; Reason: Other:; periumbilicalabdominal pain; Clinical Question(s): Obstruction; Order Comment: TECHNIQUE: Spiral CT through the abdomen and pelvis with IV contrast formatted in 3 planes. Dedicated bone and soft tissue algorithm and reformatted images of the lumbar spine were performed in multiple planes. 100 cc of Omnipaque 300 was administered intravenously. This study was performed withoutoral contrast. Weight-based protocol using automatic tube modulation was used to optimize exposure parameters. CTDIvol Body: 12.90 mGy, DLP Body: 692 mGy*cm. COMPARISON: CT of the abdomen and pelvis dated 09/19/2022.. FINDINGS: Bankruptcy Manager View Findings, Lines and Tubes: None. Visualized Chest: Partially imaged centrilobular emphysema. Subpleural reticulations at the lung bases. No pleural effusion.. No pleural effusion. The heart is normal in size. No pericardial effusion. Diaphragm: Normal. Liver: Normal. Gallbladder: No CT evidence of gallbladder pathology. Bile ducts: No biliary ductal dilation. Spleen: Normal. Pancreas: No inflammatory changes. The lesion is again identified in the pancreatic head, previously containing gas which has since resolved. The cystic lesion measures approximately 1.7 cm on image 50 of series 202. Very small approximately 2 mm cystic focus abutting the main pancreatic duct at the pancreatic neck is unchanged. Accessory pancreatic duct is also noted. Adrenal glands: Normal. Kidneys and ureters: No hydronephrosis, stones, or suspicious masses. Simple appearing renal cysts and hypodensities that are too small to characterize are noted, requiring no dedicated follow up. Bladder: Partially obscured by metallic artifact from left hip prosthetic. Grossly unremarkable. Reproductive organs: Pelvic structures are poorly visualized due to caliber artifact. Stomach, small bowel, and large bowel: There are a few mildly prominent small bowel loops in left abdomen with no discrete transition point to suggest obstruction. No wall thickening or surrounding inflammatory change. There is stool throughout the colon particularly in the redundant transverse colon. Appendix: Normal, best seen in coronal image 38 through 48. Peritoneum and retroperitoneum: No ascites or pneumoperitoneum. No omental or mesenteric lesions. Lymph nodes: No enlarged lymph nodes. Blood vessels: Severe atherosclerotic vascular calcification but no aneurysm. There are stents in the common and external iliac arteries. 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 No evidence of venous thrombosis. Circumaortic left renal vein. Abdominal and pelvic wall: Unremarkable. Bones including the lumbar spine: No acute abnormality. Postsurgical changes from lumbar fusion severity L4-S1 levels with L4-S1 laminectomy. Extensive degenerative changes with loss of intervertebral disc height and marginal osteophytes. Left hip prosthesis. Partially imaged old right rib fractures, with partially imaged plate and screw fixation of the superior most imaged right rib fracture plate and screw fixation. Subtle superior endplate compression fracture at L1 is probably subacute, no significant change in vertebral body height loss since the previous exam. Small amount of gas in thesuperior endplate. Unchanged T12 chronic compression fracture. Unchanged appearance of the left iliac bone with a well-defined lucent focus of sclerotic rim, which may reflect a bone graft donor site. IMPRESSION: No evidence of bowel obstruction. There are a few mildly prominent small bowel loops in the left abdomen without transition point, nonspecific. Subtle superior endplate compression fracture at L1 is probably subacute. There are advanced multilevel degenerative changes of the spine as well as postsurgical changes from posterior fusion and laminectomy from the L4-S1 levels. 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 These are unchanged in size. WSN: [id number] Ordering Physician: Judd Arita Dictated By: Dariana Hunter MD Dictated Date/Time: 10/07/22 6:31 pm Reviewed By: Dariana Hunter MD Signed By: Dariana Hunter MD Signed Date/Time: 10/07/22 6:31 pm Transcribed By: BERENICE Transcribed Date/Time: 10/07/22 6:[address] Abdomen and Pelvis W contrast IV * [facility] , DOLORES S: MIRTHA Hunter MD, Dariana N: VERIFY Event Display: Result: Authored Date: CT Abd/Pelvis W/ IV Contrast Only, CT Lumbar Spine W/ Contrast Hx of Present Illness: Pt presents to ED from rehab facility with c c of generalized body pain, reports that he is currently at rehab facility for rehab of right shoulder after surgery and IV abx. PTPT reports today after getting into bed experienced 10 10 back pain.; Reason: Other:; periumbilicalabdominal pain; Clinical Question(s): Obstruction; Order Comment: TECHNIQUE: Spiral CT through the abdomen and pelvis with IV contrast formatted in 3 planes. Dedicated bone and soft tissue algorithm and reformatted images of the lumbar spine were performed in multiple planes. 100 cc of Omnipaque 300 was administered intravenously. This study was performed withoutoral contrast. Weight-based protocol using automatic tube modulation was used to optimize exposure parameters. CTDIvol Body: 12.90 mGy, DLP Body: 692 mGy*cm. COMPARISON: CT of the abdomen and pelvis dated 09/19/2022.. FINDINGS: Bankruptcy Manager View Findings, Lines and Tubes: None. Visualized Chest: Partially imaged centrilobular emphysema. Subpleural reticulations at the lung bases. No pleural effusion.. No pleural effusion. The heart is normal in size. No pericardial effusion. Diaphragm: Normal. Liver: Normal. Gallbladder: No CT evidence of gallbladder pathology. Bile ducts: No biliary ductal dilation. Spleen: Normal. Pancreas: No inflammatory changes. The lesion is again identified in the pancreatic head, previously containing gas which has since resolved. The cystic lesion measures approximately 1.7 cm on image 50 of series 202. Very small approximately 2 mm cystic focus abutting the main pancreatic duct at the pancreatic neck is unchanged. Accessory pancreatic duct is also noted. Adrenal glands: Normal. Kidneys and ureters: No hydronephrosis, stones, or suspicious masses. Simple appearing renal cysts and hypodensities that are too small to characterize are noted, requiring no dedicated follow up. Bladder: Partially obscured by metallic artifact from left hip prosthetic. Grossly unremarkable. Reproductive organs: Pelvic structures are poorly visualized due to caliber artifact. Stomach, small bowel, and large bowel: There are a few mildly prominent small bowel loops in left abdomen with no discrete transition point to suggest obstruction. No wall thickening or surrounding inflammatory change. There is stool throughout the colon particularly in the redundant transverse colon. Appendix: Normal, best seen in coronal image 38 through 48. Peritoneum and retroperitoneum: No ascites or pneumoperitoneum. No omental or mesenteric lesions. Lymph nodes: No enlarged lymph nodes. Blood vessels: Severe atherosclerotic vascular calcification but no aneurysm. There are stents in the common and external iliac arteries. 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 No evidence of venous thrombosis. Circumaortic left renal vein. Abdominal and pelvic wall: Unremarkable. Bones including the lumbar spine: No acute abnormality. Postsurgical changes from lumbar fusion severity L4-S1 levels with L4-S1 laminectomy. Extensive degenerative changes with loss of intervertebral disc height and marginal osteophytes. Left hip prosthesis. Partially imaged old right rib fractures, with partially imaged plate and screw fixation of the superior most imaged right rib fracture plate and screw fixation. Subtle superior endplate compression fracture at L1 is probably subacute, no significant change in vertebral body height loss since the previous exam. Small amount of gas in thesuperior endplate. Unchanged T12 chronic compression fracture. Unchanged appearance of the left iliac bone with a well-defined lucent focus of sclerotic rim, which may reflect a bone graft donor site. IMPRESSION: No evidence of bowel obstruction. There are a few mildly prominent small bowel loops in the left abdomen without transition point, nonspecific. Subtle superior endplate compression fracture at L1 is probably subacute. There are advanced multilevel degenerative changes of the spine as well as postsurgical changes from posterior fusion and laminectomy from the L4-S1 levels. 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 These are unchanged in size. WSN: [id number] Ordering Physician: Judd Arita Dictated By: Dariana Hunter MD Dictated Date/Time: 10/07/22 6:31 pm Reviewed By: Dariana Hunter MD Signed By: Dariana Hunter MD Signed Date/Time: 10/07/22 6:31 pm Transcribed By: BERENICE Transcribed Date/Time: 10/07/22 6:17 pm XR Femur - left 2 Views * [facility] , CIS S: TRANSCRIBE Judd Hitchcock MD P: VERIFY Event Display: Result: Authored Date: [id number] Pelvis 1 or 2 Views, Femur 2 Views Left Hx of Present Illness: Pt presents to ED from rehab facility with c c of generalized body pain, reports that he is currently at rehab facility for rehab of right shoulder after surgery and IV abx. PTPT reports today after getting into bed experienced 10 10 back pain.; Reason: Trauma; With Pain; Clinical Question(s): Fracture COMPARISON: 04/25/2022 FINDINGS: Stable lumbosacral hardware and aortoiliac stents. Left hip arthroplasty with lateral fixation plate and cerclage wires. No evidence of hardware complication. No evidence of acute periprosthetic fracture. Osteopenia. IMPRESSION: No evidence of acute periprosthetic fracture or hardware complication. WSN: [id number] Ordering Physician: Judd Arita Dictated By: Judd Hitchcock MD Dictated Date/Time: 10/07/22 6:41 pm Reviewed By: Judd Hitchcock MD Signed By: Judd Hitchcock MD Signed Date/Time: 10/07/22 6:41 pm Transcribed By: BERENICE Transcribed Date/Time: 10/07/22 6:38 pm XR Pelvis 1 or 2 Views * [facility] , CIS S: TRANSCRIBE Judd Hitchcock MD: VERIFY Event Display: Result: Authored Date: Pelvis 1 or 2 Views, Femur 2 Views Left Hx of Present Illness: Pt presents to ED from rehab facility with c c of generalized body pain, reports that he is currently at rehab facility for rehab of right shoulder after surgery and IV abx. PTPT reports today after getting into bed experienced 10 10 back pain.; Reason: Trauma; With Pain; Clinical Question(s): Fracture COMPARISON: 04/25/2022 FINDINGS: Stable lumbosacral hardware and aortoiliac stents. Left hip arthroplasty with lateral fixation plate and cerclage wires. No evidence of hardware complication. No evidence of acute periprosthetic fracture. Osteopenia. IMPRESSION: No evidence of acute periprosthetic fracture or hardware complication. WSN: [id number] Ordering Physician: Judd Arita Dictated By: Judd Hitchcock MD Dictated Date/Time: 10/07/22 6:41 pm Reviewed By: Judd Hitchcock MD Signed By: Judd Hitchcock MD Signed Date/Time: 10/07/22 6:41 pm Transcribed By: BERENICE Transcribed Date/Time: 10/07/22 6:38 pm Patient Care team information Care Team Personnel Name: Michael Girard RN Position: [facility] RN Member Role: Primary Care Nurse Name: Radha Hsieh RN Position: [facility] RN Member Role: Primary Care Nurse Name: Glo Camarena RN Position: [facility] RN Member Role: Primary Care Nurse Name: Fatimah Bennett RN Position: [facility] RN Member Role: Primary Care Nurse Name: Mariely Hardy RN Position: [facility] RN Member Role: Primary Care Nurse Name: Sydney Zelaya Position: [facility] PCO OFFICE STAFF Member Role: Lifetime Consulting Physician Name: Judd Barahona RN Position: [facility] RN Member Role: Primary Care Nurse Name: Mag Harry RN Position: [facility] RN Member Role: Primary Care Nurse Name: An Blount RN Position: [facility] RN Supv Member Role: Primary Care Nurse Name: Marianna Ng RN Position: [facility] SN RN Member Role: Primary Care Nurse Name: Avani Odell RN Position: [facility] RN Member Role: Primary Care Nurse Name: Elizabeth Noriega RN Position: [facility] RN Member Role: Primary Care Nurse Name: Ruben Bello RN Position: [facility] RN Member Role: Primary Care Nurse Name: Zoë Thompson RN Position: [facility] RN Member Role: Primary Care Nurse Name: Araceli Simon RN Position: [facility] RN Member Role: Primary Care Nurse Name: Nikki Yanez RN Position: [facility] RN Member Role: Primary Care Nurse Name: Roman Weiner RN Position: [facility] RN Member Role: Primary Care Nurse Name: Jorge Garcia III, MD Position: [facility] Ambulatory (view) Member Role: PCP Address: Address: [address] [place] [id number] Name: Misty Nguyen RN Position: [facility] RN Member Role: Primary Care Nurse Name: Sarwat Aj RN Position: [facility] RN Member Role: Primary Care Nurse Name: Cassi Batista RN Position: [facility] RN Member Role: Primary Care Nurse Name: Ellis Mayfield RN Position: [facility] RN Member Role: Primary Care Nurse Name: Ayah Robison RN Position: [facility] RN Member Role: Primary Care Nurse Name: Kirstin Enriquez RN Position: [facility] RN Member Role: Primary Care Nurse Name: Jina Smalls RN Position: [facility] RN Member Role: Primary Care Nurse Name: Laura Clements RN Position: [facility] RN Member Role: Primary Care Nurse Name: Colette Syed RN Position: [facility] RN Member Role: Primary Care Nurse Name: Muriel Daley RN Position: [facility] RN Supv Member Role: Primary Care Nurse Name: Darlyn Alvarez RN Position: [facility] RN Member Role: Primary Care Nurse Name: Maribell Mejias RN Position: [facility] RN Member Role: Primary Care Nurse Name: Rachna Renteria RN Position: [facility] RN Member Role: Primary Care Nurse Name: Zohreh Pink RN Position: [facility] RN Member Role: Primary Care Nurse Name: Sophie Berrios RN Position: [facility] RN Member Role: Primary Care Nurse Name: Monse Wen RN Position: [facility] RN Member Role: Primary Care Nurse Name: Cindy Grullon RN Position: [facility] RN Supv Member Role: Primary Care Nurse Name: Elham Melgar RN Position: [facility] RN Member Role: Primary Care Nurse Name: Elham Lee RN Position: [facility] PCO RN Member Role: Primary Care Nurse Name: Ana María Cat RN Position: [facility] RN Member Role: Primary Care Nurse Name: Flor Holley Position: [facility] RN Member Role: Primary Care Nurse Name: Bret Aguirre RN Position: [facility] RN Member Role: Primary Care Nurse Name: Rosa Elena Lora RN Position: [facility] RN Member Role: Primary Care Nurse Name: Ghazal [place] Position: [facility] RN Member Role: Primary Care Nurse Name: Audra Martinez RN Position: [facility] RN Member Role: Primary Care Nurse Name: Shahbaz Bobo RN Position: [facility] RN Member Role: Primary Care Nurse Name: Jennifer Yin LPN Position: [facility] RN Member Role: Primary Care Nurse Name: Alina Arce RN Position: [facility] RN Member Role: Primary Care Nurse Name: Marcelo Schneider RN Position: [facility] ED RN W/OE and Tasks Member Role: Primary Care Nurse Name: Daija De Paz RN Position: [facility] RN Member Role: Primary Care Nurse Name: Radha Masterson RN Position: [facility] RN Member Role: Primary Care Nurse Name: Amy Larios RN Position: [facility] RN Member Role: Primary Care Nurse Name: Indira Lindsey RN Position: [facility] SN RN Member Role: Primary Care Nurse Name: Rosa Elena Pope RN Position: [facility] RN Member Role: Primary Care Nurse Name: Florentino Garcia RN Position: [facility] RN Member Role: Primary Care Nurse Name: Cristel Moreno RN Position: [facility] RN Member Role: Primary Care Nurse Name: Rosa Elena De León RN Position: [facility] Management Manager Member Role: Primary Care Nurse Name: Tulio Pina RN Position: [facility] RN Member Role: Primary Care Nurse Name: Maximiliano Claros RN Position: [facility] RN Member Role: Primary Care Nurse Name: Narda Barnes RN Position: [facility] RN Member Role: Primary Care Nurse Name: Zoë Cisse RN Position: [facility] RN Member Role: Primary Care Nurse Name: Pat Bowers RN Position: [facility] RN Member Role: Primary Care Nurse Name: Tayler Bird RN Position: [facility] RN Member Role: Primary Care Nurse Name: Hilaria Aparicio RN Position: [facility] RN Member Role: Primary Care Nurse Name: Carly Rosado RN Position: [facility] RN Member Role: Primary Care Nurse Name: Sydney Rosado RN Position: [facility] RN Member Role: Primary Care Nurse Name: Fidencio Camarena RN Position: [facility] RN Member Role: Primary Care Nurse Name: Uriel Dumont Position: [facility] RN Member Role: Primary Care Nurse Name: Selene Vazquez RN Position: [facility] RN Member Role: Primary Care Nurse Name: Yandy Johnson RN Position: [facility] RN Member Role: Primary Care Nurse Name: Leyla Verma LPN Position: [facility] RN Member Role: Primary Care Nurse Name: Rody Mays RN Position: [facility] RN Member Role: Primary Care Nurse Name: Marielos Mixon RN Position: [facility] RN Member Role: Primary Care Nurse Name: Radha Flores RN Position: [facility] RN Member Role: Primary Care Nurse Name: Rose Kyle RN Position: [facility] Hospital Management Manager Member Role: Primary Care Nurse Name: Aimee Salamanca Position: [facility] RN Member Role: Primary Care Nurse Name: KofiSavanna Pereira Attending Position: [facility] ED Medicine MD Name: Rosa Elena Chery RN Position: [facility] ED RN W/OE and Tasks Member Role: Patient Care Provider Name: Prema Jim Position: [facility] ED TA [facility] Member Role: Astronaut Mission Specialist Name: Elly Cardenas RN Position: [facility] ED RN W/OE and Tasks Member Role: Patient Care Provider Care Team Related Persons Name: STEVENSON HAMM Address: home [address] [address] Name: MELINA BRUMFIELD Address: [place] [address] Name: NEHEMIAS BRUMFIELD Address: home [address] [address] Name: BRIEN LANCASTER Address: home [address] [address]
--- OUTSIDE RECORDS SUMMARY | 2023-08-15 20:23 | XMS_ITS | Continuity of Care Document ---
Author Name Unknown Organization [facility] Address [address] [address]- Care Team Providers Care Drafter Seismograph Name Role Phone Jose LEE MD, Jorge Tsang Primary Care Physician Encounter [facility] Date(s): 02/08/20 - 02/18/20 [facility] [address] [facility] [address] [place] [id number] [facility] Attending Physician: Anabel Mendosa Admitting Physician: Anabel Mendosa Referring Physician: AdmtrAnabel Allergies, Adverse Reactions, Alerts Substance Reaction Severity [...] 10:39:00 EST, Aerosol, Route to Pharmacy Electronically, [id number], [facility]/pharmacy #[id number], 182, cm, 12/26/19 9:43:00 EST, [place]... Start Date: 12/26/19 Status: Ordered apixaban = 5 mg, By Mouth, 2 times a day, To start after 7 days of 10 mg dose, 0 Refills, Maintenance, 05/27/19 14:17:22 EDT, Tablet Start Date: 05/27/19 Status: Ordered aquacel ag Sidewalkel ag, See Instructions, # 1 box, Refills [...] # 6 tablet, 0 Refills, Soft Stop, 12/26/19 9:58:00 EST, Tablet, [facility]/pharmacy #[id number], 182, cm, 12/26/19 9:43:00 EST, Height, 56.4, kg, 07/11/19 18:58:00 EDT, Dry Weight Start Date: 12/26/19 Status: Ordered Azithromycin 5 Day Dose Pack [...] Date: 12/26/19 Status: Ordered Ferrous Sulfate Tablet 325 mg, [...] 6, 03/31/07 11:15:26, Print MARTIN Number, [facility], [address] [place] [address], [id number], Constant Indicator Start Date: 03/31/07 Stop Date: [...] Multiple fractures of ribs(Confirmed) 01/06/11 Active Old CA (myocardial infarctio n) X 3(Confirmed) Active PVD (peripheral vascular disease)(Confirmed) Active Active smoker, 1/2 upto 2 pp d X >30 years(Confirmed) Active 1Cardiac stents 1995 Social History Social History Type Response Tobacco Use: 4 or less cigar ettes(less than 1/4 pack)/day in last 30 days. Sex
--- OUTSIDE RECORDS SUMMARY | 2023-08-15 20:23 | XMS_ITS | Continuity of Care Document ---
Author Name Unknown Organization [facility] ter Address [address] [place] [id number]- Care Team Providers Care Coordinator Of Genetic Services Name Role Phone Jose LEE MD, Jorge Tsang Primary Care Physician [place] [facility] [place]23 - 04/27/[address] [id number]- Encounter Diagnosis Hypoxia(Final) - 04/23/23 Discharge Disposition: A-D/C Home Attending Physician: Sandee Lynn MD Admitting Physician: Zak Barillas MD Referring Physician: Not on Staff, Referring MD Allergies, Adverse Reactions, Alerts Substance Reaction Severity Status naproxen lesions on lips Active Toradol Morphine allergy Metaxalone Naproxen Cephalexin allergy hives Persistent Mild Active Keflex 1 rash Active Skelaxin H/O: migraine Active 1tolerates pip/tazo 11/17 Immunizations Given and Recorded Vaccine Date Status Refusal Reason [id number] 12y+ bivalent booster vax 08/23/22 Recorded SARS-CoV-2 [...] opioid drug. Start Date: 07/02/22 Status: Ordered Daptomycin IV Daptomycin IV, See Instructions, # 1 each, Refills 0, Tot. Refills 0, Maintenance, Daptomycin 350 mg IV every 24 hours [address] instructed [address] Gary Gross, 04/27/23 13:48:00 EDT, Supply Start Date: 04/27/23 Status: Ordered dicyclomine 10 mg oral capsule 1 capsule = 10 mg, By Mouth, 4 times a day, 0 Refills, Maintenance, 04/27/22 20:45:00 EDT, Partial fill upon patient request if the prescription is for a schedule II opioid drug. Start Date: 04/27/22 Status: Ordered Dilaudid Inj 0.5 mg, Injection, IV Push Slowly, Every 8 hours, PRN for Pain , Severe, Routine, 04/26/23 12:32:00EDT Start Date: 04/26/23 Stop Date: 04/28/23 Status: Discontinued duloxetine 60 mg oral enteric coated capsule [...] 5 Refills, Maintenance, 04/27/23 13:54:00 EDT, Tablet, [facility] 3, Partial fill upon [...] hours, PRN for Pain , Severe, Routine, 04/23/23 12:36:00 EDT Start Date: 04/23/23 Stop Date: 04/28/23 Status: Discontinued HYDROmorphone 4 mg oral tablet [...] release 25 mg, XL Tablet, By Mouth, 04/27/23 9:00:00 EDT Start Date: 04/27/23 Stop Date: 04/27/23 Status: Completed Metoprolol Succinate ER 25 mg [...] opioid drug. Start Date: 01/21/23 Status: Ordered pantoprazole 40 mg oral delayed release tablet 1 tablet = 40 mg, By Mouth, Daily Start Date: 07/02/22 Status: Ordered Robitussin DM Liquid 5 mL, By Mouth, Every 6 hours, PRN Cough, Maintenance, 04/20/23 16:55:00 EDT, Syrup, Partial fill upon patient request if the prescription is for a schedule II opioid drug. Start Date: 04/20/23 Status: Ordered Symbicort 160mcg/4.5mcg Inhaler 2, puffs, [...] fractures of ribs Confirmed 01/06/11 Active Old ID (myocardial infarction) X 3 Confirmed Active PVD (peripheral vascular disease) Confirmed Active Underweight Confirmed Active 1Cardiac stents 1991, 1995 Results Radiology Reports * Exam Date Time Procedure Performing Provider Status 04/23/23 6:21 AM Chest Portable Zoë Youngblood; Auth ( Verified) Notes: (Chest Portable) Reason For Exam: Shortness of Breath RESULT: Chest Portable Chest Portable Hx of Present Illness: COPD exacerbation, SOB, 4L baseline O2. Increased to 6L for comfort.; Reason: Shortness of Breath; Clinical Question(s): CHF COMPARISON: 04/20/2023. FINDINGS: LINES AND TUBES: There is a left subclavian line with its tip at the expected location of the SVC. LUNGS AND PLEURA: Again demonstrated are hyperexpanded lungs compatible with COPD. No pleural effusion. No pneumothorax. HEART, MEDIASTINUM AND MAMADOU: Heart is normal in size. Normal mediastinal and hilar contour. BONES AND SOFT TISSUES: Again demonstrated is extensive internal fixation hardware in the posterior right ribs. Again demonstrated is a healed lateral left seventh rib fracture. IMPRESSION: Stable chronic findings without evidence of acute cardiopulmonary pathology. WSN: [id number] Ordering Physician: Azra Singh Dictated By: Shannan Heredia MD Dictated Date/Time: 04/23/23 6:34 am Reviewed By: Shannan Heredia MD Signed By: Shannan Heredia MD Signed Date/Time: 04/23/23 6:34 am Transcribed By: BERENICE Transcribed Date/Time: 04/23/23 6:30 am Vital Signs Most recent to oldest [Reference Range]: 1 2 3 Height 183 cm (04/27/23 7:05 AM) 183 cm (04/27/23 4:14 AM) 183 cm (04/27/23 12:35 AM) Weight 61 kg (04/23/23 12:57 PM) Oxygen Saturation [94-100 %] 91 % *L* (04/27/23 3:16 PM) 91 % *L* (04/27/23 11:00 AM) 91 % *L* (04/27/23 7:05 AM) Pulse Rate [55-90 bpm] 93 bpm *H* (04/27/23 3:16 PM) 80 bpm (04/27/23 11:00 AM) 70 bpm (04/27/23 8:38 AM) Body Mass Index [18.5-24.99 kg/m2] 18.21 kg/m2 *L* (04/23/23 12:57 PM) Blood Pressure [90-138/55-84 mm Hg] 111/63mm Hg (04/27/23 3:16 PM) 125/71mm Hg (04/27/23 11:00 AM) 105/59mm Hg (04/27/23 8:38 AM) Respiratory Rate [16-30 br/min] 16 br/min (04/27/23 5:39 PM) 18 br/min (04/27/23 4:20 PM) 20 br/min (04/27/23 3:16 PM) Temperature [96.8-100.4 DegF] 98.2 DegF (04/27/23 3:16 PM) 97.8 DegF (04/27/23 11:00 AM) 98.0 DegF (04/27/23 7:05 AM) Liters per Minute 3 L/min (04/27/23 3:16 PM) 3 L/min (04/27/23 11:00 AM) 3 L/min (04/27/23 4:14 AM) Mode of Delivery (Oxygen) Nasal cannula (04/27/23 3:16 PM) Nasal cannula (04/27/23 11:00 AM) Nasal cannula (04/27/23 7:05 AM) Blood pressure sites Arm, right (04/27/23 3:16 PM) Arm, right (04/27/23 11:00 AM) Arm, right (04/27/23 7:05 AM) Temperature Route Oral (04/27/23 3:16 PM) Axillary (04/27/23 11:00 AM) Oral (04/27/23 7:05 AM) Dry Weight 61 kg (04/23/23 12:57 PM) Social History Social History Type Response Tobacco Use: 4 or less cigar ettes(less than 1/4 pack)/day in last 30 days. Sex History and physical note * Gabe Arroyo MD: MODIFY Event Display: History and Physical Hospital Authored Date: [id number] HISTORY AND PHYSICAL DATE: 04/23/2023 CHIEF COMPLAINT: Shortness of breath, abdominal pain. HISTORY OF PRESENT ILLNESS: This is a 67-year-old male patient that came complaining of shortness of breath. The patient was discharged a few days ago from [facility] on 04/21 after he was admitted for COPD exacerbation. However, he described that shortness of breath was not resolved on discharge day. He went home where he was noted to have worsening of his shortness of breath. He has beenhaving also dry cough and productive cough with greenish sputum. He denies no fever, but he has some chills today. He continue with medications as prescribed few days ago with a few days worth for the antibiotic and prednisone. He described having abdominal pain that is related to his cough. He hadbowel movements. EMERGENCY DEPARTMENT COURSE: The patient was given DuoNeb updraft, doxycycline 100 mg IV, Lovenox 70 mg IV and Solu-Medrol 125 mg IV. PAST MEDICAL HISTORY: History of COPD, on home oxygen 3 L, GERD, hypertension, hyperlipidemia, peripheral vascular disease, CAD, recent MRSA bacteremia with possible right shoulder septic arthritis with a wound VAC in place and prior history of DVT. MEDICATIONS: As per discharge summary from a few days ago, he was going to continue with Tylenol p.r.n., albuterol updraft, aspirin 81 mg daily, atorvastatin 80 mg daily, azithromycin for 1 day finished on the 04/22, Symbicort 160 mcg/4.5 mcg inhaler b.i.d. 2 puffs, dicyclomine 10 mg 4 times a day,duloxetine 60 mg b.i.d., gabapentin 600 mg 3 times a day, Robitussin-DM p.r.n., Dilaudid 4 mg p.r.n. every 4 hours, hydroxyzine 10 mg p.r.n. 3 times a day, isosorbide dinitrate 30 mg b.i.d., lisinopril 2.5 mg daily, loperamide p.r.n., melatonin 10 mg p.r.n., metoprolol XL 25 mg daily, midodrine 10 mg 3 times a day, pantoprazole 40 mg daily, prednisone 40 mg last dose to be given on 04/24, thiamine 100 mg daily and Incruse Ellipta 62.5 mcg inhaler daily. SOCIAL HISTORY: The patient lives at home with his son. He has a history of smoking. He is down to less than 10 cigarettes a day. He has been smoking for the past 35 years up to 2 packs per day. He denies any history of illicit drug use. No history of alcohol abuse. FAMILY HISTORY: He described that mother had history of COPD and father had history of stroke. REVIEW OF SYSTEMS: Pertinent positives include positive for shortness of breath and cough, no fever, positive for chills. Pertinent negatives, no chest pain. He had nausea, but no vomiting, no diarrhea, no constipation. He has some abdominal pain, no dysuria, no hematuria, no weakness or numbness to arms or legs bilaterally. Otherwise, a complete review of system was performed and all other systems are negative. CODE STATUS: The patient is full code. PHYSICAL EXAMINATION: VITAL SIGNS: Temperature 98.3, heart rate of 74, respiratory rate of 15, blood pressure 115/69, O2 sats 92% on 6 L nasal cannula. He was on CPAP in the emergency department. GENERAL: The patient is lying comfortably in bed with no acute respiratory distress. He is cachectic. HEENT: Normocephalic. PERRLA, EOMI. Moist mucous membranes. CARDIOVASCULAR: Regular rate and rhythm, no heart murmurs. Normal S1 and S2 heart sounds. No rubs or gallops heard. RESPIRATORY: He has diminished breath sounds bilaterally with bilateral expiratory wheezing. No rhonchi or crackles heard. GASTROINTESTINAL: Abdomen is soft and depressible. No tenderness to palpation. Bowel sounds are present. No rebound tenderness. MUSCULOSKELETAL: No cyanosis, no peripheral pitting edema in lower extremities bilaterally. Right upper extremity examination limited due to wound VAC in place. SKIN: No rashes, no jaundice. NEUROLOGIC: The patient is alert, active, oriented x3. Muscle strength is intact, 5/5 in right and left upper and lower extremities with exception of the right upper extremity has limited examination. LABORATORY DATA: White blood cell count 14.5, hemoglobin 9.5, hematocrit 32.5, platelets 497. Sodium 145, potassium 4.4, chloride 99, bicarbonate 35, BUN of 17, creatinine 0.5, glucose 126, total bilirubin less than 0.2, AST 23, ALT 16, lipase 51, alkaline phosphatase 127. Troponin 38 down to 31 onrepeat. COVID test was negative. IMAGING: Chest x-ray showed stable cardiac findings without evidence of acute cardiopulmonary pathology. ASSESSMENT AND PLAN: This is a 67-year-old old male patient with a history of COPD, home oxygen, GERD, hypertension, hyperlipidemia, CAD, peripheral vascular disease that was recently discharged a few days ago with COPD exacerbation. He came back with worsening dyspnea and hypoxia and he was found with acute on chronic respiratory failure. 1. Acute on chronic hypoxic respiratory failure/COPD exacerbation. The patient has improvement of his symptoms at the moment on examination. Initially, the ED, he was placed on CPAP and he was found with hypoxia and he required higher amount of oxygen from outpatient. Chest x-ray showed no acute evidence of pneumonia or CHF. 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 I discussed with the patient about these findings with the recurrent admissions to the hospital for COPD exacerbation, respiratory failure and ongoing declining, recommended to have further goals of care discussion. He has been seen by palliative care in the past as well. He wanted to have a biopsy of the lung to confirm lung cancer andthen we will discuss further goals of care and prognosis. We will continue with COPD exacerbation treatment. Plan: 1. We will continue with prednisone 40 mg daily and he may require a tapered dose. 2. We will start on DuoNeb updrafts 4 times a day and p.r.n. 3. We will hold home dose of Symbicort and Ellipta inhaler at the moment. 4. We will schedule for CT scan/ultrasound lung biopsy. We will need to hold Lovenox prior to the procedure. 5 Continue with oxygen. 6. Continue CPAP at bedtime. 2. Hypertension/hyperlipidemia/peripheral vascular disease. He will continue home medications of aspirin, metoprolol and statin. We will hold off midodrine at the moment as his blood pressure is stable. 3. History of DVT. Unclear why the patient has been discontinued from anticoagulation previously. He had a recent ultrasound Doppler left on 04/20 that showed lung abnormal segment of nonocclusive thrombus in the femoral vein. Unclear if this was an acute versus a chronic component. He denies any recent bleeding. He described that he had epistaxis in the past; however, the patient is unclear why anticoagulation was discontinued. We will resume anticoagulation with Lovenox at the moment and we will hold off prior to the procedure. On discharge, he should be started back on Coumadin versus Eliquis. 4. Right shoulder possible septic arthritis. The patient is currently having a wound VAC in place. As per patient, he was to follow up with the [facility] next week. We will call them for further evaluation in the hospital. We will continue with wound VAC change by the nursing staff every 2 days. Will continue with daptomycin and follow up with Orthopedics 5. FEN. We will start patient on a cardiac diet. 6. DVT prophylaxis, Lovenox subcutaneous. Dictated by: Gabe Merino M.D. Signing Clinician: Gabe Merino M.D. Dictated: 04/23/2023 01:37:17 Transcribed: 09:20:16 AM Transcribed by: DELIA DocID: [id number] PRELIMINARY REPORT UNLESS MANUALLY/ELECTRONICALLY SIGNED * Gabe Arroyo MD: PERFORM Event Display: History and Physical Hospital Authored Date: Will get Palliative care Consultation EKG study * Event Display: ECG 12-Lead Authored Date: Please click on pdf link to open report * Event Display: ECG 12-Lead Authored Date: Ventricular Rate: 77 BPM Atrial Rate: 77 BPM P-R Interval: 142 ms QRS Duration: 96 ms Q-T Interval: 380 ms QTC Calculation(Bazett): 430 ms P Galloway: 80 degrees R Galloway: -16 degrees T Galloway: 67 degrees Normal sinus rhythm Incomplete right bundle branch block Borderline ECG When compared with ECG of 20-APR-2023 05:05, T wave inversion no longer evident in Anterior leads Confirmed by ASHLEY DOMÍNGUEZ MD ([id number]) on 04/27/2023 8:11:05 AM [place]: ASHLEY DOMÍNGUEZ MD Cardiology * Event Display: Cardiac Rhythm Strips Authored Date: Hospital Progress note * Ayah Robison RN: PERFORM, SIGN, VERIFY Event Display: Progress Note Hospital Authored Date: Patient: ANT VARMA Age: 67 years Sex: Male : 1955 Associated Diagnoses: None Author: Ayah Robison RN Consult request for palliative care cancelled by primary team. Ayah Robison MSN, RN, CHPN Nurse Coordinator Geriatric/Palliative Care Palliative Pager [phone] Phone [phone] * Judith Rojas LPN: PERFORM, SIGN, VERIFY Event Display: Progress Note Hospital Authored Date: [id number] Patient: ANT VARMA Age: 67 years Sex: Male : 1955 Associated Diagnoses: None Author: Judith Rojas LPN Nevaeh Gonzalez has been sleeping through the night. Waking periodically for pain medication and vitals. Pain has been a 9/10 out of 10 pain. No c/o SOB thru shift. He is NPO since midnight, awaiting his lung biopsy for today. Vitals have been steady. On Tele he is SR w/PAC's. His wound vac on right shoulder is functioning. He is on 3 liters of O2. LCTA, with a little grunt on expiratory. Oxygen range between 93-94%. No coughing, no dizziness, no nausea. Incont of bowels and bladder. Discharge Information Case Management Discharge Plan : Case Management Discharge Plan Data 04/26/2023 15:37 EDT Discharge Level of Care at Discharge Homehealth/VNA Discharge VNA/Hospice/Home Care [facility] Discharge [employer] Name of Agency #1 [facility] Name of Agency #1 [facility] Service Categories #1 [facility] Service Comments #1 Pt will be discharged to resume services Service Categories #2 Home IV antibiotics 04/21/2023 14:32 EDT Discharge Level of Care at Discharge Home/[facility] 04/21/2023 9:02 EDT Discharge Level of Care at Discharge Home/[facility] Pulmonary Rehab Discharge : Pulmonary Rehab Discharge Status 04/23/2023 8:02 EDT CPAP/BiPAP Mask Type Full CPAP/BiPAP Mask Size Medium * Liat AMAYA, Phuc H: MODIFY, PERFORM Event Display: Progress Note Hospital Authored Date: [id number] Patient: ??ANT VARMA ? Age:??67 Years?Sex:??Male?:??1955?? Subjective Patient was seen and assessed at bedside. No acute events overnight. Discussed with IR, not a target for IR biopsy. Discussed with thoracic surgery, more likely to be outpatient work up Review of Systems A complete review of systems was conducted and was negative except for what was stated in HPI. Allergies Allergies ?(Active and Proposed Allergies Only) naproxen? (Severity: Unknown severity, Onset: Unknown) ?Reactions: lesions on lips Toradol? (Severity: Persistent Mild, Onset: Unknown) ?Reactions: hives, Cephalexin allergy, Naproxen, Metaxalone, Morphine allergy Keflex? (Severity: Unknown severity, Onset: Unknown) ?Reactions: rash ?Comments: tolerates pip/tazo 11/17 Skelaxin? (Severity: Unknown severity, Onset: Unknown) ?Reactions: H/O: migraine ? Objective Vital Signs?? Temperature: 98.3 DegF (04/26/23 07:31:00) Temperature Route: Oral (04/26/23 07:31:00) Pulse Rate: 62 bpm (04/26/23 07:31:00) Respiratory Rate: 18 br/min (04/26/23 07:31:00) Systolic Blood Pressure: 105 mm Hg (04/26/23 07:31:00) Diastolic Blood Pressure: 71 mm Hg (04/26/23 07:31:00) Blood pressure sites: Arm, right (04/26/23 07:31:00) Mean Arterial Pressure: 82 mm Hg (04/26/23 07:31:00) Pulse Pressure: 34 mm Hg (04/26/23 07:31:00) Oxygen Saturation: 97 % (04/26/23 07:31:00) Liters per Minute: 3 L/min (04/26/23 07:31:00) Mode of Delivery (Oxygen): Nasal cannula (04/26/23 07:31:00) Early Warning Score: 0 (04/26/23 07:32:46) ? Intake/Output? 04/23 11:57 04/26 07:00 04/25 07:00 04/24 07:00 04/23 07:00 ?? 04/26 09:30 04/26 09:30 04/26 06:59 04/25 06:59 04/24 06:59 Intake ?360 ?0 ?0 ?0 ?360 Output ? 2800 ?0 ? 1450 ?650 ?700 Net Total ?-2440 ?0 ?-1450 ? -650 ? -340 ? Urine Count ?1 ?1 ?0 ?0 ?0 Diaper Count ?2 ?1 ?0 ?0 ?1 ? Physical Exam General?NAD, AAO HEENT?PERRLA, oropharynx clear, moist mucus membranes Pulm?CTA bilaterally, no wheezes/rhonchi/rales CV?RRR, +S1/S2, no murmurs/rubs GI?Soft, nontender, nondistended, no organomegaly, bowel sounds are present Neuro?Moves all extremities MS?rt shoulder dressing Results slight??Elevation in white count up to 12.9. ??Anemia at baseline. BMP shows elevation in bicarbonate level up to 40 today. ??Creatinine at baseline. Assessment/Plan ?? 67-year-old old male patient with a history of COPD, home oxygen, GERD, hypertension, hyperlipidemia, CAD, peripheral vascular disease that was recently discharged a few days ago with COPD exacerbation. ??He came back with worsening dyspnea and hypoxia and he was found with acute on chronic respiratory failure. ?? Acute on chronic hypoxic respiratory failure COPD exacerbation Concern for adencarcinoma he has improvement of his COPD exacerbation, hypoxia resolved; at home on oxygen 3L; still smoking as outpatient. Initially required CPAP after noticing hypoxia in the ED. CXR with no PNA or CHF. 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 He had some hemoptysis, however seemed resolved, discussed with patient which agreed to continue with anticoagulation and will monitor. Discussed with IR, not a target for biopsy. Discussed with thoracic surgery, more likely to requireoutpatient workup ?? plan: continue with prednisone 40 mg daily and he may require a tapered dose. ?continue with??DuoNeb updrafts 4 times a day and p.r.n. ? hold home dose of Symbicort and Ellipta inhaler at the moment. ? Continue with oxygen. ? Continue CPAP at bedtime ? Consider Palliative care consultation. ? FU thoracic surgery recommendations ?? HTN-HLD-PVD: continue with aspirin, metoprolol and statin. ?? We will hold off midodrine at the moment as his blood pressure is stable. ?? History of DVT:??unclear why the patient has been discontinued from anticoagulation previously. ??He had a recent ultrasound Doppler left on 04/20 that showed lung abnormal segment of nonocclusive thrombus in the femoral vein. ??Unclear if this was an acute versus a chronic component.? plan: continue with anticoagulation with Lovenox at the moment and we will hold off prior to the procedure. ? On discharge, he should be started back on Coumadin versus Eliquis. ?? Right shoulder septic arthritis: Was discussed with Ortho team as he was going to follow up with [facility] this week. plan:??wound VAC change by the nursing staff every 2 days.?continue with daptomycin and follow up with Orthopedics (daptomycin unavailable, unclear if pt was on it. Consider ID consult if inflamm markers worsen) ? DVT prophylaxis: Lovenox subcutaneous. Code status: full code ?? Patient's case and plan discussed with attending physician ??Stacey Josue MD Internal Medicine PGY-1 ? * Dinah Ibarra MD: PERFORM Event Display: Progress Note Hospital Authored Date: I have seen and evaluated this patient. ??I have discussed the case and its management with the resident and agree with the findings and plan as documented in the resident???s note. Note * Dinah Ibarra MD: PERFORM Event Display: Discharge/Transfer Note Hospital Authored Date: Patient: ??ANT VARMA ? Age:??67 Years?Sex:??Male?:??1955?? Patient Information Discharge Location: [facility] Primary Care Physician: Jorge Garcia III, MD Admit Date/Time: 04/23/23 11:57 Discharge Disposition Discharge Disposition: Home with Home Health Discharge Diagnosis Acute on chronic respiratory failure with hypoxia (J96.21) Hypoxia (R09.02) ?? _ Discharge Medications Acetaminophen (acetaminophen 325 mg [...] 25 mg oral tablet, extended release)?1?tab(s)?25?Milligram?By Mouth?Daily Midodrine (midodrine 5 mg oral tablet)?10?Milligram?2?tablet?By Mouth?3 times a day?Hold for SBP>110 Miscellaneous Rx (Daptomycin IV)?See Instructions?Daptomycin 350 mg IV every 24 hours as instructed by Dr Gary Gross Pantoprazole (pantoprazole 40 mg oral delayed release tablet)?1?tab(s)?40?Milligram?By Mouth?Daily Thiamine (Vitamin B1 100 mg oral tablet)?100?Milligram?1?tablet?By Mouth?Daily umeclidinium (Incruse Ellipta 62.5 mcg/inh inhalation powder)?1?puff(s)?Inhalation?Every 24 hours ? Quality Measures Tobacco Use Treatment:? Allergies Allergies ?(Active and Proposed Allergies Only) naproxen? (Severity: Unknown severity, Onset: Unknown) ?Reactions: lesions on lips Toradol? (Severity: Persistent Mild, Onset: Unknown) ?Reactions: hives, Cephalexin allergy, Naproxen, Metaxalone, Morphine allergy Keflex? (Severity: Unknown severity, Onset: Unknown) ?Reactions: rash ?Comments: tolerates pip/tazo 11/17 Skelaxin? (Severity: Unknown severity, Onset: Unknown) ?Reactions: H/O: migraine ? Hospital Course 67-year-old old male patient with a history of COPD, home oxygen, GERD, hypertension, hyperlipidemia, CAD, peripheral vascular disease that was recently discharged a few days ago with COPD exacerbation. ??He came back with worsening dyspnea and hypoxia and he was found with acute on chronic respiratory failure. ?? Acute on chronic hypoxic respiratory failure COPD exacerbation Concern for adencarcinoma he has improvement of his COPD exacerbation, hypoxia resolved; at home on oxygen 3L; still smoking as outpatient. Initially required CPAP after noticing hypoxia in the ED. CXR with no PNA or CHF. 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 He had some hemoptysis, however seemed resolved, discussed with patient which agreed to continue with anticoagulation and will monitor. Discussed with IR, not a target for biopsy. Discussed with thoracic surgery, more likely to requireoutpatient workup ?? plan: Completed??prednisone 40 mg daily??for 5 days ?continue with??DuoNeb updrafts 4 times a day and p.r.n. ? hold home dose of Symbicort and Ellipta inhaler at the moment. ? Continue with oxygen. ? Continue CPAP at bedtime ? thoracic surgery recommendations-Looking back on prior imaging this is a fairly unchanged area dating back at least 12 months if not more. Would not recommend any surgical intervention/biopsy at this time. ??We will see him back in the thoracic clinic in 6 months with surveillance imaging. ??This was discussed with the patient and he is in agreement with this plan.Follow up arranged for 10/27/23 at 9:30AM. ??Will need a repeat CT chest with IV contrast prior to follow up. ? HTN-HLD-PVD: continue with aspirin, metoprolol and statin. ?? We will hold off midodrine at the moment as his blood pressure is stable. ?? History of DVT:??unclear why the patient has been discontinued from anticoagulation previously. ??He had a recent ultrasound Doppler left on 04/20 that showed lung abnormal segment of nonocclusive thrombus in the femoral vein. ??Unclear if this was an acute versus a chronic component.? plan: continue with anticoagulation with Lovenox at the moment and we will hold off prior to the procedure. ? On discharge,??he will be on??Eliquis.?? Discussed with him to hold if possible bleeding ?? Right shoulder septic arthritis: Was discussed with Ortho team as he was going to follow up with [facility] this week. plan:??wound VAC change by the nursing staff every 2 days.?continue with daptomycin and follow up with Orthopedics ?? Patient was seen and examined today multiple times.?? Orthopedic team recommended patient should follow??at [facility]??and cleared for discharge.?? Discussed??both with patient and his son Nehemias??2 timesabout plan.?? Tried calling ID ??At [facility]??to clarify daptomycin,??unable to reach. Patient is agreeable for discharge and will follow up??with his ID doctor Objective Assessment and Plan ? Measurements?? Height: 183 cm (04/27/23) Weight: 61 kg (04/23/23) Dry Weight: 61 kg (04/23/23) Body Mass Index:??18.21 kg/m2??Low (04/23/23) ? Vital Signs?? Temperature: 97.8 DegF (04/27/23 11:00:00) Temperature Route: Axillary (04/27/23 11:00:00) Pulse Rate: 80 bpm (04/27/23 11:00:00) Respiratory Rate: 20 br/min (04/27/23 11:00:00) Systolic Blood Pressure: 125 mm Hg (04/27/23 11:00:00) Diastolic Blood Pressure: 71 mm Hg (04/27/23 11:00:00) Blood pressure sites: Arm, right (04/27/23 11:00:00) Mean Arterial Pressure: 74 mm Hg (04/27/23 07:05:00) Pulse Pressure: 54 mm Hg (04/27/23 11:00:00) Oxygen Saturation:??91 %??Low (04/27/23 11:00:00) Liters per Minute: 3 L/min (04/27/23 11:00:00) Mode of Delivery (Oxygen): Nasal cannula (04/27/23 11:00:00) Early Warning Score: 4 (04/27/23 12:59:54) ? . Physical Exam General?NAD, AAO HEENT?PERRLA, oropharynx clear, moist mucus membranes Pulm?CTA bilaterally, no wheezes/rhonchi/rales CV?RRR, +S1/S2, no murmurs/rubs GI?Soft, nontender, nondistended, no organomegaly, bowel sounds are present Neuro?Moves all extremities MS?rt shoulder dressing,??with wound VAC Pending Results Basic Metabolic Panel ordered on 04/27/2023 C Reactive Protein ordered on 04/27/2023 CBC ordered on 04/27/2023 COVID-19 (2019 Novel Coronavirus) PCR ordered on 04/23/2023 Follow-Up Appointments Added Follow Up ?Time Frame ?Comments Jose LEE MD, Jorge Tsang?1 to 2 weeks Moni Mendoza?10/27/2023 09:30?You will need to have a repeat CT chest prior to this appointment. ??Please call to yvonne the appointment [phone] Patient Instructions -??Please continue to follow-up with??your??orthopedics doctor??and infection doctor??for further??treatment??of??your right shoulder infection.?? Wound VAC was changed by our orthopedics team today.?? Next to be changed by [facility] -Continue IV??daptomycin??as per??your infection doctor recommendations.? Follow-up with?? Dr. Gary Gross??for further??antibiotic.?? PICC line to be removed after your antibiotics finished -Please attend thoracic surgery??appointment??with repeat CT scan??for further??planning had a biopsy needed -You should be on blood thinner??for blood clot.?? However if any bleeding from anywhere please stop taking it??and come back to ER -Follow-up with PCP in 1 week Post Discharge Care Discharge ?04/27/23 13:50:00 EDT Home Health Face to Face *Denotes mandatory tapia ?? *I certify that this patient is under my care and that I or an allowed non- physician working with me had a face to face encounter with the patient on this date:??04/27/2023 14:05 ?? *The encounter with the patient was in whole, or in part, for the following medical condition, which is the primary diagnosis(es) for home health care:??Acute on chronic respiratory failure with hypoxia (J96.21) Hypoxia (R09.02) ? *Select the indications for the discipline/s that are being arranged for this patient. Nursing (select all that apply): [_] None [_x] Medication management (reconciliation, teaching)?? [x_] Chronic disease management?? [_x] Wound care and treatment?? [_] Home safety evaluation [_] Administer SQ/IM/IV medications?? [_] Cath care?? [_] Drain care?? [_] Trach or GT care?? Other _ Occupation Therapy (select all that apply): [_] None [_] ADL Management [_] Fall prevention training [_] Energy conservation [_] Cognitive training Other _ Physical Therapy (select all that apply): [_] None [_x] Functional mobility training [_x] Home exercise program to strengthen [x_] Increase ROM?? [x_] Falls prevention training [x_] Home maintenance program for chronic disease Other _ Speech Therapy (select all that apply): [_] None [_] Swallow evaluation and training [_] Speech and language training [_] Cognitive training to process, organize, and/or recall information Other _ ? *Homebound due to (select all that apply): [x_] Inability to leave home without assistance/supervision [x_] Inability to ambulate without assistance [_] Pain [_] Decreased strength and endurance [_] Unsteady gait [_] Severe SOB and fatigue [_] Impaired transfers [_] Inability to negotiate stairs [_] Limited weight bearing [_] Mental status change? *Physician Signature: _JU ?? *By signing this, I certify that I have personally evaluated the patient and agree with the findings and recommendations as documented above. ? Results Discharge Labs BLOOD COUNT & DIFF WBC 12.9 k/mm3 (High)?? 04/26/2023 03:55 RBC 3.18 m/mm3 (Low)?? 04/26/2023 03:55 Hgb 8.6 Gm/dL (Low)?? 04/26/2023 03:55 Hct 28.9 % (Low)?? 04/26/2023 03:55 MCV 90.9 femtoliters ()?? 04/26/2023 03:55 MCH 27.0 pg ()?? 04/26/2023 03:55 MCHC 29.8 g/dL (Low)?? 04/26/2023 03:55 Platelet Count 362 k/mm3 ()?? 04/26/2023 03:55 RDW-SD 60.5 femtoliters (High)?? 04/26/2023 03:55 MPV 9.3 femtoliters (Low)?? 04/26/2023 03:55 Nucleated RBC (Automated) 0.0 #/100 WBC'S ()?? 04/26/2023 03:55 Abs. NRBC 0.0 k/mm3 ()?? 04/26/2023 03:55 Abs. Neut 11.8 k/mm3 (High)?? 04/23/2023 05:40 Abs. Lymph 0.8 k/mm3 ()?? 04/23/2023 05:40 Abs. Frederick 1.4 k/mm3 (High)?? 04/23/2023 05:40 Abs. Eo 0.1 k/mm3 ()?? 04/23/2023 05:40 Abs. Baso 0.1 k/mm3 ()?? 04/23/2023 05:40 Neut % 81.4 % (High)?? 04/23/2023 05:40 Lymph % 5.3 % (Low)?? 04/23/2023 05:40 Frederick % 9.6 % ()?? 04/23/2023 05:40 Eos % 0.5 % ()?? 04/23/2023 05:40 Baso % 0.5 % ()?? 04/23/2023 05:40 Imm Gran 2.7 % ()?? 04/23/2023 05:40 Abs. Imm Gran 0.4 k/mm3 ()?? 04/23/2023 05:40 ?? CARDIAC Nt-Probnp 546 pg/mL (High)?? 04/23/2023 05:40 High Sensitivity Troponin (HSTnT) 28 ng/L (High)?? 04/23/2023 11:20 ?? CHEM GENERAL Sodium 143 mmol/L ()?? 04/26/2023 03:55 Potassium 3.9 mmol/L ()?? 04/26/2023 03:55 Chloride 98 mmol/L ()?? 04/26/2023 03:55 Bicarbonate Level 40 mmol/L (High)?? 04/26/2023 03:55 Anion Gap 5 ()?? 04/26/2023 03:55 Glucose Level 123 mg/dL (High)?? 04/26/2023 03:55 BUN 20 mg/dL ()?? 04/26/2023 03:55 Creatinine-Blood 0.6 mg/dL (Low)?? 04/26/2023 03:55 Estimated GFR Creatinine 110 ML/MIN/1.73 M2 ()?? 04/26/2023 03:55 Calcium 8.2 mg/dL (Low)?? 04/26/2023 03:55 Protein, Total 6.1 Gm/dL (Low)?? 04/23/2023 05:40 Albumin 3.5 Gm/dL ()?? 04/23/2023 05:40 AG Ratio 1.3 ()?? 04/23/2023 05:40 Alkaline Phosphatase 127 units/L ()?? 04/23/2023 05:40 Lipase 51 units/L ()?? 04/23/2023 05:40 AST (SGOT) 23 units/L ()?? 04/23/2023 05:40 ALT (SGPT) 16 units/L ()?? 04/23/2023 05:40 Bilirubin, Total <0.2 mg/dL ()?? 04/23/2023 05:40 ?? COAG INR 1.0 ()?? 04/26/2023 03:55 Protime (PT) 10.6 seconds ()?? 04/26/2023 03:55 APTT 29.4 seconds ()?? 04/23/2023 11:20 ? HEME OTHER Hold Blue Top SPECIMEN DISCARDED AFTER 4 HOURS. ()?? 04/23/2023 05:40 ? URINE OTHER Est Creatinine Clearance 105.90 mL/min ()?? 04/26/2023 04:42 ? VIROLOGY COVID-19 POC Result NEGATIVE ()?? 04/23/2023 09:57 ? 40_ minutes spent on discharge * Judi Hamilton RN: PERFORM, MODIFY Event Display: Patient Education/Instruction Authored Date: [id number] Inpatient Adult Discharge Instructions [address] [address] Name: ANT VARMA : 1955 Visit: 04/23/2023 11:57:00 Current Date: 04/27/2023 14:31 Account: [id number] Inpatient Adult Discharge Instructions We would like [...] and their families. Surveys are administered by [employer] Study Course. ?? If further treatment with your primary care physician or another doctor is recommended, it is important for you to keep the appointment. Call your primary care physician or return to the Emergency Department immediately if your condition worsens, fails to improve, or new symptoms develop. If you need to find a doctor, you can call [facility] for a referral at [phone] or toll free at [phone] [email or web address] ([phone]) or log in to [email or web address].. ?? You can view and manage your care through the patient portal or by using a health care lore of your choosing. [employer] is a website that allows you to securely view your medical information including your hospital discharge summary, office visit summaries, medications and follow-up visits. You can also request appointments, renew medications, and request access to your medical information using a health care lore of your choosing, or just ask a question. You can enroll at [email or web address] or register during your next office visit. You have been discharged from [facility], Patient Care Unit: D3B. If you have any questions regarding these instructions after you leave, please call us and we will be happy to assist you. [facility] Your Care Team Attending Physician Shane AMAYA, Sandee Consulting Providers Kemi AMAYA, Tayler Naik; Dinah Ibarra MD; Marcelo Rogel DO; Malini AMAYA, Rodolfo Pereira; Alexis Mckeon MD Discharging Providers Dinah Ibarra MD Reason for Your Visit SOB/COPD exacerbation Tests Performed Below is a partial list of the tests performed during your hospitalization. You may have had other tests and procedures not included in this list. Please discuss all test results with your provider. BUN CBC w/ Differential Comprehensive Metabolic Panel COVID-19 (2019 Novel Coronavirus) PCR?-- Results Pending -- COVID-19 RNA POC Creatinine Electrolytes High??Sensitivity??Troponin T Hold Blue Top Tube INR Lipase ProBNP PTT Troponin T, High Sensitivity XR Chest Portable You will be contacted within 72 hours with your results. Primary Care Provider Jorge Garcia III, MD Advance Directive . Discharge Vitals Temperature: 97.8 DegF Height: 183 cm Pulse Rate: 80 bpm Weight: 61 kg Respiratory Rate: 20 br/min Body Mass Index:??18.21 kg/m2??Low Systolic Blood Pressure: 125 mm Hg Body surface area: 1.76 Diastolic Blood Pressure: 71 mm Hg ?? Oxygen Saturation:??91 %??Low ?? Studies Pending All tests and labs ordered during this hospital stay have been completed unless listed below. Please discuss all pending results with your provider listed above in these instructions. ?? Basic Metabolic Panel C Reactive Protein (CRP) CBC COVID-19 (2019 Novel Coronavirus) PCR What to do next Instructions From Your Doctor -??Please continue to follow-up with??your??orthopedics doctor??and infection doctor??for further??treatment??of??your right shoulder infection.?? Wound VAC was changed by our orthopedics team today.?? Next to be changed by [facility] -Continue IV??daptomycin??as per??your infection doctor recommendations.? Follow-up with?? Dr. Gary Gross??for further??antibiotic.?? PICC line to be removed after your antibiotics finished -Please attend thoracic surgery??appointment??with repeat CT scan??for further??planning had a biopsy needed -You should be on blood thinner??for blood clot.?? However if any bleeding from anywhere please stop taking it??and come back to ER -Follow-up with PCP in 1 week Discharge Orders You Need to Schedule the Following Appointments Follow Up with??Moni Mendoza When:??10/27/2023 09:30 AM EST Why: You will need to have a repeat CT chest prior to this appointment. ??Please call to yvonne the appointment [phone] Where: [address] [facility] [place] [address]- [facility] (1) Follow Up with??Jose LEE MD, Jorge Tsang When:??Within 1 to 2 weeks Where: [address] [place] [address] [place] [address]- Discharge Medications ANT VARMA :1955 Visit Date:04/23/2023 Medications: Please continue your medications until treatment is completed or stopped by your provider. Medications not listed below should be discontinued. Discuss any questions related to medications with your provider. What How Much When Instructions Next Dose New apixaban (Eliquis 5 mg oral tablet) 1 tab(s) Oral Twice a day Duration: 30 Days Refills: 5 Pickup at [facility] April 27, 2023 Evening dose New Miscellaneous Rx (Daptomycin IV) See instructions Daptomycin 350 mg IV every 24 hours as instructed by Dr Gary Gross ?? April 28, 2023 3pm Unchanged Acetaminophen (acetaminophen 325 mg oral tablet) 2 tab(s) Oral Every 4 hours as needed for as needed for fever April 27, 2023?? Available anytime after 12:30pm?? Unchanged Albuterol (albuterol 0.042% inhalation solution) 3 Milliliter Nebulized inhalation Every 4 hours April 27, 2023?? Available anytime after 5pm Unchanged Albuterol (albuterol 90 mcg/ inh inhalation powder) 2 puff(s) Inhalation Every 4 hours as needed for as needed April 27, 2023?? Available anytime after 5pm Unchanged Aspirin (aspirin 81 mg oral capsule) 1 capsule Oral Daily April 28, 2023 Morning dose Unchanged Atorvastatin (atorvastatin 80 mg oral tablet) 1 tab(s) Oral Daily April 28, 2023 Morning dose Unchanged Budesonide-Formoterol (Symbicort 160mcg/ 4.5mcg Inhaler) 2 puff(s) Inhalation Twice a day April 27, 2023 Evening dose Unchanged Dicyclomine (dicyclomine 10 mg oral capsule) 1 capsule Oral 4 times a day April 27, 2023 Evening dose Unchanged Duloxetine (duloxetine 60 mg oral enteric coated capsule) 1 capsule Oral Twice a day April 27, 2023 Evening dose Unchanged Gabapentin (gabapentin 300 mg oral capsule) 2 capsule Oral 3 times a day April 27, 2023 9pm Unchanged Guaifenesin/ Dextromethorphan (Robitussin DM Liquid) 5 Milliliter Oral Every 6 hours as needed for Cough As needed Unchanged Hydromorphone (HYDROmorphone 4 mg oral tablet) 1 tab(s) Oral Every 4 hours as needed for as needed for pain April 27, 2023 Available after 4:30pm Unchanged HydrOXYzine (hydrOXYzine hydrochloride 10 mg oral tablet) 1 tab(s) Oral 3 times a day as needed for Anxiety April 27, 2023 Available after 8:30pm Unchanged Isosorbide Dinitrate (isosorbide dinitrate 30 mg oral tablet) 1 tab(s) Oral Twice a day April 27, 2023 Evening dose Unchanged Lisinopril (lisinopril 2.5 mg oral tablet) 1 tab(s) Oral Daily April 28, 2023 Morning dose Unchanged Loperamide (loperamide 2 mg oral capsule) 1 capsule Oral Every 4 hours as needed for for loose stool As needed Unchanged Melatonin 10 Milligram Oral Daily at Bedtime as needed for as needed for sleep April 27, 2023 Bedtime??dose Unchanged Metoprolol (Metoprolol Succinate ER 25 mg oral tablet, extended release) 1 tab(s) Oral Daily April 28, 2023 Morning dose Unchanged Midodrine (midodrine 5 mg oral tablet) 2 tab(s) Oral 3 times a day Hold for SBP>110 ?? April 27, 2023 Evening dose Unchanged Pantoprazole (pantoprazole 40 mg oral delayed release tablet) 1 tab(s) Oral Daily April 28, 2023 Morning dose Unchanged Thiamine (Vitamin B1 100 mg oral tablet) 1 tab(s) Oral Daily April 28, 2023 Morning dose Unchanged umeclidinium (Incruse Ellipta 62.5 mcg/ inh inhalation powder) 1 puff(s) Inhalation Every 24 hours April 28, 2023 Morning dose Pharmacy Information [facility] 3: [address], [place] [id number] [phone] ?? What How Much When Comments Stop Taking Azithromycin (azithromycin 500 mg oral tablet) 500 Milligram Oral Once Please take one tablet on to complete course. ?? Stop Taking PredniSONE (predniSONE 20 mg oral tablet) 2 tab(s) Oral Once Please take 40mg (2 tablets) for 3 days ending on . ?? Test Results Below is a partial list of the most recent Laboratory test results done prior to this discharge. You may have had other tests and procedures not included in this list. Please discuss all test resultswith your provider. Est Creatinine Clearance - 105.90 mL/min (04/26/2023) BUN (04/24/2023) ???BUN - 26 mg/dL CBC w/ Differential (04/23/2023) ???WBC - 14.5 k/mm3???RBC - 3.57 m/mm3???Hgb - 9.5 Gm/dL???Hct - 32.5 %???MCV - 91.0 femtoliters???MCH - 26.6 pg???MCHC - 29.2 g/dL???Platelet Count - 497 k/mm3???RDW-SD - 60.2 femtoliters???MPV - 10.1 femtoliters???Nucleated RBC (Automated) - 0.0 #/100 WBC'S???Abs. NRBC - 0.0 k/mm3???Abs. Neut - 11.8 k/mm3???Abs. Lymph - 0.8 k/mm3???Abs. Frederick - 1.4 k/mm3???Abs. Eo - 0.1 k/mm3???Abs. Baso - 0.1 k/mm3???Neut % - 81.4 %???Lymph % - 5.3 %???Frederick % - 9.6 %???Eos % - 0.5 %???Baso % - 0.5 %???Imm Gran - 2.7 %???Abs. Imm Gran - 0.4 k/mm3 Comprehensive Metabolic Panel (04/23/2023) ???Sodium - 145 mmol/L???Potassium - 4.4 mmol/L???Chloride - 99 mmol/L???Bicarbonate Level - 35 mmol/L???Anion Gap - 11???Glucose Level - 126 mg/dL???BUN - 17 mg/dL???Creatinine-Blood - 0.5 mg/dL???Estimated GFR Creatinine - 112 ML/MIN/1.73 M2???Calcium - 9.2 mg/dL???Protein, Total - 6.1 Gm/dL???Alb umin - 3.5 Gm/dL???AG Ratio - 1.3???Alkaline Phosphatase - 127 units/L???AST (SGOT) - 23 units/L???ALT (SGPT) - 16 units/L? ?Bilirubin, Total - <0.2 mg/dL COVID-19 RNA POC (04/23/2023) ???COVID-19 POC Result - NEGATIVE Creatinine (04/24/2023) ???Creatinine-Blood - 0.8 mg/dL???Estimated GFR Creatinine - 97 ML/MIN/1.73 M2 Electrolytes (04/24/2023) ???Sodium - 142 mmol/L???Potassium - 4.3 mmol/L???Chloride - 97 mmol/L???Bicarbonate Level - 37 mmol/L???Anion Gap - 8 High??Sensitivity??Troponin T (04/23/2023) ???High Sensitivity Troponin (HSTnT) - 38 ng/L Hold Blue Top Tube (04/23/2023) ???Hold Blue Top - SPECIMEN DISCARDED AFTER 4 HOURS. INR (04/26/2023) ???INR - 1.0???Protime (PT) - 10.6 seconds Lipase (04/23/2023) ???Lipase - 51 units/L ProBNP (04/23/2023) ???Nt-Probnp - 546 pg/mL PTT (04/23/2023) ???APTT - 29.4 seconds Troponin T, High Sensitivity (04/23/2023) ???High Sensitivity Troponin (HSTnT) - 28 ng/L Allergies (NKA means No Known Allergies) Toradol??(Morphine [...] Metabolic alkalosis?? Multiple fractures of ribs?? Old ID (myocardial infarction) X 3?? old Rib fractures, right 3-8?? PVD (peripheral vascular disease)?? Smoking greater than 40 pack years?? Underweight?? Education Materials Below is the list of Educational Leaflet Providered with your Discharge Instructions. Valuables and Belongings I fully understand and agree that [facility] accepts no responsibility for all my personal [...] to send valuables and belongings home. ?? Review of Valuable and Belonging List: With patient, With witness Date for Pt to Sign Valuables/Belongings: 04/24/23 00:38:00 ?? Other Discharge Information ?? Wound Assessment?? Wound Assessment?? Wound Location I: Shoulder, right Wound Type I: Other Wound Type - Outpatient ?? Case Management Discharge Plan?? Discharge Plan?? Discharge Agency Information?? Discharge Level of Care at Discharge: Homehealth/VNA Name of Agency #1: [facility] Discharge VNA/Hospice/Home Care: [facility] Name of Agency #1: [facility]: [facility] Service Categories #1: [facility] ?? Service Comments #1: Pt will be discharged to resume services ?? Service Categories #2: Home IV antibiotics ?? Pulmonary Rehab Status?? Pulmonary Rehab Discharge Status?? CPAP/BiPAP Mask Type: Full CPAP/BiPAP Mask Size: Medium Respiratory Rate: 20 br/min Discharge Medical Equipment Companies: [facility] ? Common Emergency Awareness Tips IS IT [...] are strongly encouraged to quit. Please call [facility] [place] Link at [phone] or [phone] ([phone]) or log in to [email or web address] for referrals to smoking cessation programs. ?? 813 Suicide & Crisis Lifeline is available 20/06 if you or someone you know needs to find a reason to keep living. By calling 359 you'll be connected to a skilled, trained counselor at a crisis center in your area. INPATIENT DISCHARGE INSTRUCTIONS SIGNATURE PAGE ANT VARMA Location:[facility] Registration Date and Time:04/23/2023 11:57 EDT Primary Care Physician: Jorge Garcia III, MD, Attending Physician: Sandee Lynn MD, I ANT VARMA, have received the above patient education materials/instructions and have verbalized understanding. If ambulance or transport services are being used I further acknowledge being given a choice of service. ?? If you need to contact me, please call me at this number: . Patient/Small Offset Printer Name: Patient/Small Offset Printer Signature: Relationship to Patient: Witness Name/Signature: Date: * Laura Rutledge RN: PERFORM, SIGN, VERIFY Event Display: Case Management Discharge Plan Authored Date: [id number] Patient: ANT VARMA Age: 67 years Sex: Male : 1955 Associated Diagnoses: None Author: Laura Rutledge RN Discharge Plan Case Management Discharge Plan : Case Management Discharge Plan Data 04/26/2023 15:37 EDT Discharge Level of Care at Discharge Homehealth/VNA Discharge VNA/Hospice/Home Care [facility] [employer] [facility] [employer] [facility] Name of Agency #1 [facility] Name of Agency #1 [facility] Categories #1 [facility] Service Comments #1 Pt will be discharged to resume services Service Categories #2 Home IV antibiotics 04/21/2023 14:32 EDT Discharge Level of Care at Discharge Home/[facility] 04/21/2023 9:02 EDT Discharge Level of Care at Discharge Home/[facility] * Laura Rutledge RN: SIGN, PERFORM, VERIFY Event Display: Case Management Discharge Plan Authored Date: [id number] Patient: ANT VARMA Age: 67 years Sex: Male : 1955 Associated Diagnoses: None Author: Laura Rutledge RN Discharge Plan Case Management Discharge Plan : Case Management Discharge Plan Data 04/26/2023 15:37 EDT Discharge Level of Care at Discharge Homehealth/VNA Discharge VNA/Hospice/Home Care [facility] Discharge [employer] [facility] Name of Agency #1 [facility] Name of Agency #1 [facility] Categories #1 [facility] Service Comments #1 Pt will be discharged to resume services Service Categories #2 Home IV antibiotics * Taylor ASSISTANT SOFTBALL COACH, Concepción M: PERFORM, SIGN, VERIFY Event Display: Patient Education Handout Authored Date: [id number] Portable XR Chest Views * [facility] , CIS S: TRANSCRIBE Shannan Heredia MD: VERIFY Event Display: Result: Authored Date: [id number] Chest Portable Hx of Present Illness: COPD exacerbation, SOB, 4L baseline O2. Increased to 6L for comfort.; Reason: Shortness of Breath; Clinical Question(s): CHF COMPARISON: 04/20/2023. FINDINGS: LINES AND TUBES: There is a left subclavian line with its tip at the expected location of the SVC. LUNGS AND PLEURA: Again demonstrated are hyperexpanded lungs compatible with COPD. No pleural effusion. No pneumothorax. HEART, MEDIASTINUM AND MAMADOU: Heart is normal in size. Normal mediastinal and hilar contour. BONES AND SOFT TISSUES: Again demonstrated is extensive internal fixation hardware in the posterior right ribs. Again demonstrated is a healed lateral left seventh rib fracture. IMPRESSION: Stable chronic findings without evidence of acute cardiopulmonary pathology. WSN: [id number] Ordering Physician: Azra Singh Dictated By: Shannan Heredia MD Dictated Date/Time: 04/23/23 6:34 am Reviewed By: Shannan Heredia MD Signed By: Shannan Heredia MD Signed Date/Time: 04/23/23 6:34 am Transcribed By: BERENICE Transcribed Date/Time: 04/23/23 6:30 am Patient Care team information Care Team Personnel Name: Glo Camarena RN Position: [facility] RN Member Role: Primary Care Nurse Name: Fatimah Bennett RN Position: [facility] RN Member Role: Primary Care Nurse Name: Mariely Hardy RN Position: [facility] RN Member Role: Primary Care Nurse Name: Marleen Uriarte RN Position: [facility] RN Member Role: Primary Care Nurse Name: Sydney Zelaya Position: [facility] PCO OFFICE STAFF Member Role: Lifetime Consulting Physician Name: Judd Barahona RN Position: [facility] RN Member Role: Primary Care Nurse Name: Mag Harry RN Position: [facility] RN Member Role: Primary Care Nurse Name: An Blount RN Position: [facility] RN Supv Member Role: Primary Care Nurse Name: Marianna Ng RN Position: [facility] SN RN Member Role: Primary Care Nurse Name: Avani Odell RN Position: [facility] RN Member Role: Primary Care Nurse Name: Lisbet Hickman RN Position: [facility] RN Member Role: Primary Care Nurse Name: Ruben Bello RN Position: [facility] RN Member Role: Primary Care Nurse Name: Araceli Simon RN Position: [facility] RN Member Role: Primary Care Nurse Name: Moni Dugan RN Position: [facility] RN Member Role: Primary Care Nurse Name: Jorge Garcia III, MD Position: Reference Physician Member Role: PCP Address: Address: [address] [place] [address] Name: Misty Nguyen RN Position: [facility] RN Member Role: Primary Care Nurse Name: Joyce Cobb Position: [facility] RN Member Role: Primary Care Nurse Name: Sarwat Aj RN Position: [facility] RN Member Role: Primary Care Nurse Name: Cassi Batista RN Position: [facility] RN Member Role: Primary Care Nurse Name: Daija Huitron RN Position: [facility] RN Member Role: Primary Care Nurse Name: Ellis Mayfield RN Position: [facility] RN Supv Member Role: Primary Care Nurse Name: Ayah Robison RN Position: [facility] RN Member Role: Primary Care Nurse Name: Radha Moreno RN Position: [facility] RN Member Role: Primary Care Nurse Name: Jina Smalls RN Position: [facility] RN Member Role: Primary Care Nurse Name: Laura Clements RN Position: [facility] RN Member Role: Primary Care Nurse Name: Colette Syed RN Position: [facility] RN Member Role: Primary Care Nurse Name: Muriel Daley RN Position: [facility] RN Supv Member Role: Primary Care Nurse Name: Darlyn Alvarez RN Position: [facility] RN Member Role: Primary Care Nurse Name: Judith Rojas LPN Position: [facility] RN Member Role: Primary Care Nurse Name: Zohreh Pink RN Position: [facility] RN Member Role: Primary Care Nurse Name: Sophie Berrios RN Position: [facility] RN Member Role: Primary Care Nurse Name: Grisel Mcgowan RN Position: [facility] RN Member Role: Primary Care Nurse Name: Uyen Mitchell RN Position: [facility] RN Member Role: Primary Care Nurse Name: Nasra Smith NP Position: Reference Physician Member Role: Primary Care Nurse Address: Address: [address] [place] [address] Name: Cindy Grullon RN Position: [facility] RN Supv Member Role: Primary Care Nurse Name: Silas Knox RN Position: [facility] RN Member Role: Primary Care Nurse Name: Elham Lee RN Position: [facility] AMB Nurse Member Role: Primary Care Nurse Name: Dariana Mariee RN Position: [facility] RN Member Role: Primary Care Nurse Name: Ana María Cat RN Position: [facility] RN Member Role: Primary Care Nurse Name: Janet Pacheco RN Position: [facility] RN Member Role: Primary Care Nurse Name: Flor Holley Position: [facility] RN Member Role: Primary Care Nurse Name: Bret Aguirre RN Position: [facility] RN Member Role: Primary Care Nurse Name: Ghazal Moreno Position: [facility] RN Member Role: Primary Care Nurse Name: Audra Martinez RN Position: [facility] RN Member Role: Primary Care Nurse Name: Shahbaz Bobo RN Position: [facility] RN Member Role: Primary Care Nurse Name: Jennifer Yin LPN Position: [facility] RN Member Role: Primary Care Nurse Name: Alina Arce RN Position: [facility] RN Member Role: Primary Care Nurse Name: Kasia Lund RN Position: [facility] RN Member Role: Primary Care Nurse Name: Radha Masterson RN Position: [facility] RN Member Role: Primary Care Nurse Name: Landy Villarreal RN Position: [facility] RN Member Role: Primary Care Nurse Name: Amy Larios RN Position: [facility] RN Member Role: Primary Care Nurse Name: Indira Lindsey RN Position: [facility] SN RN Member Role: Primary Care Nurse Name: Rosa Elena Pope RN Position: [facility] RN Member Role: Primary Care Nurse Name: Florentino Garcia RN Position: [facility] RN Member Role: Primary Care Nurse Name: Cristel Moreno RN Position: [facility] SN RN Member Role: Primary Care Nurse Name: Rosa Elena De León RN Position: [facility] Labor Supervisor Member Role: Primary Care Nurse Name: Judi Hamilton RN Position: [facility] RN Member Role: Primary Care Nurse Name: Tulio Pina RN Position: [facility] RN Member Role: Primary Care Nurse Name: Maximiliano Claros RN Position: [facility] RN Member Role: Primary Care Nurse Name: Narda Barnes RN Position: [facility] RN Member Role: Primary Care Nurse Name: Zoë Cisse RN Position: [facility] RN Member Role: Primary Care Nurse Name: Pat Bowers RN Position: [facility] SN RN Member Role: Primary Care Nurse Name: Ruy Salcido RN Position: [facility] RN Member Role: Primary Care Nurse Name: Hilaria Aparicio RN Position: [facility] RN Member Role: Primary Care Nurse Name: Carly Rosado RN Position: [facility] RN Neil Member Role: Primary Care Nurse Name: Taryn Rosado RN Position: [facility] RN Member Role: Primary Care Nurse Name: Sydney Rosado RN Position: [facility] RN Member Role: Primary Care Nurse Name: Uriel Dumont Position: [facility] RN Member Role: Primary Care Nurse Name: Selene Vazquez RN Position: [facility] RN Member Role: Primary Care Nurse Name: Dariana Becerra RN Position: [facility] RN Member Role: Primary Care Nurse Name: Leyla Verma LPN Position: [facility] RN Member Role: Primary Care Nurse Name: Rody Mays RN Position: [facility] RN Member Role: Primary Care Nurse Name: Marielos Mixon RN Position: [facility] RN Member Role: Primary Care Nurse Name: Radha Flores RN Position: [facility] RN Member Role: Primary Care Nurse Name: Rose Kyle RN Position: [facility] Hospital Labor Supervisor Member Role: Primary Care Nurse Name: Aimee Salamanca RN Position: [facility] RN Member Role: Primary Care Nurse Name: Jacobo Caceres Position: [facility] RN Member Role: Primary Care Nurse Name: Savanna PINK Attending Position: [facility] ED Medicine MD Name: Audra Dallas DO Position: [facility] Resident Member Role: ED Resident Address: Address: [address] [place] [address] Emergency Medicine [address] Name: Radha Castillo RN Position: [facility] ED RN W/OE and Tasks Member Role: Patient Care Provider Name: Monse Brown RN Position: [facility] ED RN W/OE and Tasks Member Role: Patient Care Provider Name: Julieta Irvin Position: [facility] ED TA [facility] Member Role: Sanitation Truck Cleaner Name: Janel Forrest Position: [facility] ED OA Charge Member Role: ED Associate Care Team Related Persons Name: NORIS STEVENSON Address: home [address] Name: MELINA VARMA Address: [place] [address] Name: GARRY VARMA Address: home [address] Name: BRIEN LANCASTER Address: home [address]
--- OUTSIDE RECORDS SUMMARY | 2023-08-15 20:23 | XMS_ITS | Continuity of Care Document ---
Author Name Unknown Organization [facility] Address [address] [place] [address]- Care Team Providers Care Dairy Farm Operator Name Role Phone Jose LEE MD, Jorge Tsang Primary Care Physician [phone] Encounter [facility] Date(s): 02/16/23 - 04/16/23 [facility] [address] [place], [place] [address] Attending Physician: Deepika AMAYA, Donaldo Pereira Admitting Physician: Donaldo Poe MD Referring Physician: Jorge Garcia III, MD Allergies, Adverse Reactions, Alerts Substance Reaction Severity Status naproxen lesions on lips Active Toradol Morphine allergy Metaxalone Naproxen Cephalexin allergy hives Persistent Mild Active Keflex 1 rash Active Skelaxin H/O: migraine Active 1tolerates pip/tazo 11/17 Immunizations Given and Recorded Vaccine Date Status Refusal Reason [id number] 12y+ bivalent booster vax 08/23/22 Recorded SARS-CoV-2 [...] 04/18/23 9:02:00 EDT, 03/19/23 9:02:00 EDT, Patch, [facility]/pharmacy #[id number], Partial fill upon patient request [...] fractures of ribs Confirmed 01/06/11 Active [place] (myocardial infarction) X 3 Confirmed Active PVD (peripheral vascular disease) Confirmed Active Underweight Confirmed Active 1Cardiac stents 1991, 1995 Social History Social History Type Response Tobacco Use: 4 or less cigar ettes(less than 1/4 pack)/day in last 30 days. Sex Patient Care team information Care Team Personnel Name: Glo Camarena RN Position: [facility] RN Member Role: Primary Care Nurse Name: Fatimah Bennett RN Position: [facility] RN Member Role: Primary Care Nurse Name: Mariely Hardy RN Position: [facility] RN Member Role: Primary Care Nurse Name: Marleen Uriarte RN Position: [facility] RN Member Role: Primary Care Nurse Name: Sydney Zelyaa Position: [facility] PCO OFFICE STAFF Member Role: Lifetime Consulting Physician Name: Judd Barahona RN Position: [facility] RN Member Role: Primary Care Nurse Name: Mag Harry RN Position: [facility] RN Member Role: Primary Care Nurse Name: An Blount RN Position: [facility] RN Supv Member Role: Primary Care Nurse Name: Marianna Ng RN Position: [facility] RN Member Role: Primary Care Nurse Name: Avani Odell RN Position: [facility] RN Member Role: Primary Care Nurse Name: Lisbet Hickman RN Position: [facility] RN Member Role: Primary Care Nurse Name: Ruben Bello RN Position: [facility] RN Member Role: Primary Care Nurse Name: Araceli Simon RN Position: [facility] RN Member Role: Primary Care Nurse Name: Moni Dugan RN Position: [facility] RN Member Role: Primary Care Nurse Name: Jorge Garcia III, MD Position: Reference Physician Member Role: PCP Address: Address: [address] [place] [id number] Name: Misty Nguyen RN Position: [facility] RN Member Role: Primary Care Nurse Name: Joyce Cobb Position: [facility] RN Member Role: Primary Care Nurse Name: Sarwat Aj RN Position: [facility] RN Member Role: Primary Care Nurse Name: Cassi Batista RN Position: [facility] RN Member Role: Primary Care Nurse Name: Yanni Holland RN Position: [facility] RN Member Role: Primary Care Nurse Name: Daija Huitron RN Position: [facility] RN Member Role: Primary Care Nurse Name: Ellis Mayfield RN Position: [facility] RN Supv Member Role: Primary Care Nurse Name: Ayah Robison RN Position: [facility] RN Member Role: Primary Care Nurse Name: Kirstin Enriquez RN Position: [facility] RN Member Role: Primary Care Nurse Name: Radha Moreno RN Position: [facility] RN Member Role: Primary Care Nurse Name: Jina Smalls RN Position: [facility] RN Member Role: Primary Care Nurse Name: Laura Clements RN Position: [facility] RN Member Role: Primary Care Nurse Name: Colette Syed RN Position: [facility] RN Member Role: Primary Care Nurse Name: Muriel Daley RN Position: [facility] RN Supv Member Role: Primary Care Nurse Name: Darlyn Alvarez RN Position: [facility] RN Member Role: Primary Care Nurse Name: Zohreh Pink RN Position: [facility] RN Member Role: Primary Care Nurse Name: Sophie Berrios RN Position: [facility] RN Member Role: Primary Care Nurse Name: Grisel Mcgowan RN Position: [facility] RN Member Role: Primary Care Nurse Name: Uyen Mitchell RN Position: [facility] RN Member Role: Primary Care Nurse Name: Nasra Smith NP Position: Reference Physician Member Role: Primary Care Nurse Address: Address: [address] [place] [address] Name: Cindy Grullon RN Position: [facility] RN Supv Member Role: Primary Care Nurse Name: Silas Knox RN Position: [facility] RN Member Role: Primary Care Nurse Name: Elham Lee RN Position: [facility] SHER[place]LLO RN Member Role: Primary Care Nurse Name: Dariana Mariee RN Position: [facility] RN Member Role: Primary Care Nurse Name: Ana María Cat RN Position: [facility] RN Member Role: Primary Care Nurse Name: Flor Holley Position: [facility] RN Member Role: Primary Care Nurse Name: Bret Aguirre RN Position: [facility] RN Member Role: Primary Care Nurse Name: Ghazal Moreno Position: [facility] RN Member Role: Primary Care Nurse Name: Audra Martinez RN Position: [facility] RN Member Role: Primary Care Nurse Name: Shahbaz Bobo RN Position: [facility] RN Member Role: Primary Care Nurse Name: Jennifer Yin LPN Position: [facility] RN Member Role: Primary Care Nurse Name: Alina Arce RN Position: [facility] RN Member Role: Primary Care Nurse Name: Radha Masterson RN Position: [facility] RN Member Role: Primary Care Nurse Name: Landy Villarreal RN Position: [facility] RN Member Role: Primary Care Nurse Name: Amy Larios RN Position: [facility] RN Member Role: Primary Care Nurse Name: Indira Lindsey RN Position: [facility] RN Member Role: Primary Care Nurse Name: Rosa Elena Pope RN Position: [facility] RN Member Role: Primary Care Nurse Name: Florentino Garcia RN Position: [facility] RN Member Role: Primary Care Nurse Name: Cristel Moreno RN Position: [facility] RN Member Role: Primary Care Nurse Name: Rosa Elena De León RN Position: [facility] Manager Electrical Member Role: Primary Care Nurse Name: Tulio Pina RN Position: [facility] RN Member Role: Primary Care Nurse Name: Maximiliano Claros RN Position: [facility] RN Member Role: Primary Care Nurse Name: Narda Barnes RN Position: [facility] RN Member Role: Primary Care Nurse Name: Zoë Cisse RN Position: [facility] RN Member Role: Primary Care Nurse Name: Pat Bowers RN Position: [facility] SN RN Member Role: Primary Care Nurse Name: Ruy Salcido RN Position: [facility] RN Member Role: Primary Care Nurse Name: Hilaria Aparicio RN Position: [facility] RN Member Role: Primary Care Nurse Name: Carly Rosado RN Position: [facility] RN Supv Member Role: Primary Care Nurse Name: Taryn Rosado RN Position: [facility] RN Member Role: Primary Care Nurse Name: Sydney Rosado RN Position: [facility] RN Member Role: Primary Care Nurse Name: Uriel Dumont Position: [facility] RN Member Role: Primary Care Nurse Name: Selene Vazquez RN Position: [facility] RN Member Role: Primary Care Nurse Name: Dariana Becerra RN Position: [facility] RN Member Role: Primary Care Nurse Name: Leyla Verma LPN Position: [facility] RN Member Role: Primary Care Nurse Name: Rody Mays RN Position: [facility] RN Member Role: Primary Care Nurse Name: Marielos Mixon RN Position: [facility] RN Member Role: Primary Care Nurse Name: Radha Flores RN Position: [facility] RN Member Role: Primary Care Nurse Name: Leona Alvarez RN Position: [facility] RN Member Role: Primary Care Nurse Name: Rose Kyle RN Position: [facility] Manager Electrical Member Role: Primary Care Nurse Name: Aimee Salamanca RN Position: [facility] RN Member Role: Primary Care Nurse Name: Jacobo Caceres Position: [facility] RN Member Role: Primary Care Nurse Care Team Related Persons Name: STEVENSON HAMM Address: home [address] [place] [address] Name: MELINA VARMA Address: [place] [address] Name: GARRY VARMA Address: home [address] Name: BRIEN LANCASTER Address: home [address] [place] [address]
--- OUTSIDE RECORDS SUMMARY | 2023-08-15 20:23 | XMS_ITS | Continuity of Care Document ---
Author Name Unknown Organization [facility] ter Address [address] [place] [address]- Care Team Providers Care Tower Helper Name Role Phone Jorge Garcia III, MD Primary Care Physician [place] [facility] [place]/09/22 - 04/10/[address] [address]- Discharge Disposition: A-D/C Home Attending Physician: Yury Weiner DO Admitting Physician: Yury Weiner DO Referring Physician: Not on Staff, Referring [...] 09/02/15 Bubba rded influenza virus vaccine, inactivated 9/10/14 Bubba rded influenza virus vaccine, inactivated 1 [...] mL, 6 Refills, Maintenance, 07/24/20 16:44:00 EDT, [facility]/pharmacy #[id number], 182, cm, 05/26/20 16:01:00 EDT, Height, 67, kg, 07/05/20 13:57:00 EDT, Dry Weight Start Date: 07/24/20 Status: Ordered albuterol CFC free 90 mcg/inh inhalation aerosol 2, puffs, Inhalation, Every 6 hours, PRN, j44.9, # 1 each, Refills 6, Tot. Refills 6, Maintenance, 07/24/20 16:44:00 EDT, Aerosol, Route to Pharmacy Electronically, [id number], [facility]/pharmacy #[id number], 182, cm, 05/26/20 16:01:00 E... [...] 4 hours, PRN for Pain , Severe, STAT, 04/09/22 22:09:00 EDT Start Date: 04/09/22 Stop Date: 04/10/22 Status: Discontinued Dilaudid 4 mg oral tablet [...] oral capsule 300 mg, Capsule, By Mouth, 04/10/22 9:00:00 EDT Start Date: 04/10/22 Stop Date: 04/10/22 Status: Completed gabapentin 300 mg oral capsule 300 mg, 1, capsule, By Mouth, 3 times a day, Refills 0, Maintenance, 04/05/22 22:53:00 EDT, Partialfill upon patient request if the prescription is for a schedule II opioid drug. Start Date: 04/05/22 Status: Ordered HYDROmorphone 2 mg oral tablet 1 tablet = 2 mg, By Mouth, Every 4 hours, PRN as needed for pain, # 10 tablet, 0 Refills, Acute 04/13/22 11:45:00 EDT, 04/10/22 11:41:00 EDT, Tablet, [facility]/pharmacy #[id number], Partial fill upon patient request if the prescription is for a schedule II opioid... Start Date: 04/10/22 Stop Date: 04/13/22 Status: Ordered Incruse Ellipta 62.5 mcg/inh inhalation [...] 0 Refills, Maintenance, 04/03/22 16:44:00 EDT, Film, [id number], Partial fill upon patient request [...] tablet, Refills 0, Tot. Refills 0, Maintenance, 05/14/22 11:40:00 EDT, Route to Pharmacy Electronically, [facility]/pharmacy #[id number], Partial fill upon patientrequest if [...] 6, 03/31/07 11:15:26, Print MARTIN Number, [facility] [address] [place] [id number], [phone], Constant Indicator Start Date: 03/31/07 Stop Date: [...] Exam Date Time Procedure Performing Provider Status 04/09/22 10:29 PM Toe Great Left Foot Lima , Florentino; Au th (Verified) Notes: (Toe Great Left Foot) Reason For Exam: Pain RESULT: Toe Great Left Foot Toe Great Left Foot CLINICAL INDICATION: Hx of Present Illness: Patient presents with SOB; acute on chronic. Also, acute on chronic back pain. Was at [facility] yesterday but left due to disatisfaction w care and went home. Requesting med clearance for placement in new rehab facility.; Reason: Pain; Clinical Question(s): Fracture COMPARISONS: None TECHNIQUE: AP, lateral and oblique views of the left foot great toe were obtained. FINDINGS: There is no fracture or dislocation. There is mild MTP and IP joint space narrowing. No periarticular calcifications or erosions. The Lisfranc joint space is normally aligned. No retained foreign body. Hindfoot midfoot alignment is normal. IMPRESSION: No acute abnormality involving the left great toe. Mild arthritic changes. WSN: [id number] Ordering Physician: Arnie Parkinson V Dictated By: William Farah MD Dictated Date/Time: 04/09/22 10:41 p Reviewed By: William Farah MD Signed By: William Farah MD Signed Date/Time: 04/09/22 10:41 pm Transcribed By: BERENICE Transcribed Date/Time: 04/09/22 10:37 pm * Exam Date Time Procedure Performing Provider Status 04/09/22 10:29 PM Chest 2 Views Frontal and Lat Florentino Amato; Auth (Verified) Notes: (Chest 2 Views Frontal and Lat) Reason For Exam: Shortness of Breath RESULT: Chest 2 Views Frontal and Lat Chest 2 Views Frontal and Lat Hx of Present Illness: Shortness of breath. COMPARISON: 03/30/22 FINDINGS: LINES AND TUBES: None. LUNGS AND PLEURA: Passive in the right lower lobe, chronic and correlates with superimposed rib. Bandlike retrocardiac subsegmental atelectasis. Severe emphysematous changes. No pneumothorax. HEART, MEDIASTINUM AND MAMADOU: Heart is normal in size. Normal upper mediastinal and hilar contour. BONES AND SOFT TISSUES: No acute abnormality. Postoperative changes status post ORIF of the right-sided ribs. IMPRESSION: No acute abnormality. WSN: [id number] Ordering Physician: Arnie Parkinson V Dictated By: Zack Raaz MD Dictated Date/Time: 04/09/22 10:33 p Reviewed By: Zack Raza MD Signed By: Zack Raza MD Signed Date/Time: 04/09/22 10:33 pm Transcribed By: BERENICE Transcribed Date/Time: 04/09/22 10:30 pm Vital Signs Most recent to oldest [Reference Range]: 1 2 3 Oxygen Saturation [94-100 %] 99 % (04/10/22 8:40 AM) 99 % (04/10/22 6:08 AM) 100 % (04/09/22 9:35 PM) Pulse Rate [55-90 bpm] 79 bpm (04/10/22 8:40 AM) 74 bpm (04/10/22 6:08 AM) 78 bpm (04/09/22 9:35 PM) Blood Pressure [90-138/55-84 mm Hg] 145/86mm Hg *H* (04/10/22 8:40 AM) 143/82mm Hg *H* (04/10/22 6:08 AM) 150/78mm Hg *H* (04/09/22 9:35 PM) Respiratory Rate [16-30 br/min] 16 br/min (04/10/22 11:30 AM) 16 br/min (04/10/22 9:44 AM) 16 br/min (04/10/22 8:44 AM) Temperature [96.8-100.4 DegF] 98.5 DegF (04/10/22 8:40 AM) 97.7 DegF (04/10/22 6:08 AM) 98.0 DegF (04/09/22 9:35 PM) Liters per Minute 3 L/min (04/10/22 8:40 AM) 3 L/min (04/10/22 6:08 AM) 4 L/min (04/09/22 3:22 PM) Mode of Delivery (Oxygen) Nasal cannula (04/10/22 8:40 AM) Nasal cannula (04/10/22 6:08 AM) Room air (04/09/22 9:35 PM) Blood pressure sites Arm, left (04/09/22 9:35 PM) Arm, left (04/09/22 7:40 PM) Arm, right (04/09/22 5:49 PM) Temperature Route Oral (04/09/22 9:35 PM) Oral (04/09/22 7:40 PM) Oral (04/09/22 5:49 PM) Social History Social History Type Response Tobacco Use: 4 or less cigar ettes(less than 1/4 pack)/day in last 30 days. Interested in cessation: Yes. Type: Cigarettes. Sex
--- OUTSIDE RECORDS SUMMARY | 2023-08-15 20:23 | XMS_ITS | Continuity of Care Document ---
Author Name Unknown Organization [facility] Address [address] [facility] [address] [place] [address]- Care Team Providers Care Jv Baseball Coach Name Role Phone Jose LEE MD, Jorge Tsang Primary Care Physician [phone] Encounter [facility] [place] Date(s): 03/31/20 - 04/07/20 [facility] [address] [facility] [address] [place] [address]- [place] Encounter Diagnosis COPD (chronic obstructive pulmonary disease)(Discharge Diagnosis) - 03/31/20 Attending Physician: Madhav AMAYA, Jayce Allergies, Adverse Reactions, Alerts Substance Reaction Severity [...] 10:39:00 EST, Aerosol, Route to Pharmacy Electronically, [id number], [facility]/pharmacy #[id number], 182, cm, 12/26/19 9:43:00 EST, [place]... Start Date: 12/26/19 Status: Ordered apixaban = 5 mg, By Mouth, 2 times a day, To start after 7 days of 10 mg dose, 0 Refills, Maintenance, 05/27/19 14:17:22 EDT, Tablet Start Date: 05/27/19 Status: Ordered aquacel ag aquacel ag, See Instructions, # 1 box, Refills [...] daily on left leg to coverwounds DX: LINDA, 09/25/15 10:11:55, Compound Start Date: 09/25/15 Status: Ordered Gauze Roll (4 ) See Instructions, # 40 each, Refills 5, Tot. Refills 5, Maintenance, use daily on left leg wounds to hold wound care dressings DX: LINDA, 09/25/15 10:11:36, Compound Start Date: 09/25/15 Status: [...] 1 each, 0 Refills, Maintenance, 03/24/20 22:05:00EDT, [facility]/pharmacy #[id number], Apply to right knee for pain, [...] predniSONE 10 mg oral tablet See Instructions, 50mg x 2 days, then 40mg x 2 days, then 30mg x 2 days, then 20 mg x 2 days, then 10 mg x 2 days, # 30 tablet, 0 Refills, Acute 04/19/20 15:31:00 EDT, 04/04/20 15:30:00 EDT, [facility]/pharmacy #[id number], 182, cm, 03/05/20 9:03:00 EDT, Height, 5... Start Date: 04/04/20 Stop Date: 04/19/20 Status: Ordered predniSONE 10 mg oral tablet See Instructions, 4 tabs x 2 days, 3 tabs x 2, 2 tabs x 2 and 1 tab x 2 days., # 20 each, 0 Refills, Acute 04/15/20 12:00:00 EDT, 03/31/20 14:12:00 EDT, [facility]/pharmacy #[id number], 182, cm, 03/05/20 9:03:00 EDT, Height, 56.4, kg, 07/11/19 18:58:00 EDT, Dry We... Start Date: 03/31/20 Stop Date: 04/15/20 Status: Ordered Senna 8.6 mg oral tablet [...] 6, 03/31/07 11:15:26, Print MARTIN Number, ADS [facility], [address] [place] [address], [phone], Constant Indicator Start Date: 03/31/07 Stop Date: [...] X >30 years(Confirmed) Active 1Cardiac stents 1995 Diagnosis Diagnosis Type Effective Dates Health Status Clinical Service Informant COPD (chronic obstructive pulmonary disease) Discharge Diagnosis 03/31/20 Social History Social History Type Response Tobacco Use: Former smoker.. Sex
--- OUTSIDE RECORDS SUMMARY | 2023-08-15 20:23 | XMS_ITS | Continuity of Care Document ---
Author Name Unknown Organization [facility] Address [address] [place] [address]- Care Team Providers Care Clinical Application Consultant Name Role Phone Jose LEE MD, Jorge Tsang Primary Care Physician [place] [facility] [place]21 [facility] [address] [place] [address]- Allergies, Adverse Reactions, Alerts Substance Reaction Severity [...] 16:44:00 EDT, Aerosol, Route to Pharmacy Electronically, [id number], [facility]/pharmacy #[id number], 182, cm, 05/26/20 [...] tablet = 2 mg, By Mouth, Every 8 hours, PRN as needed for pain, Dx: PVD, # 90 tablet, 0 Refills, Maintenance, 07/01/21 14:22:00 EDT, Tablet, [facility]/pharmacy #[id number], Partial fill upon patient request ifthe prescription is for a schedule II opioid drug.,... Start Date: 07/01/21 Stop Date: 07/31/21 Status: Ordered duloxetine 60 mg [...] each,6 Refills, Maintenance, 08/13/20 16:33:00 EDT, Powder, [facility]/pharmacy #[id number], 182, cm, 05/26/20 [...] tablet, 11 Refills, Maintenance, 05/15/20 13:53:00 EDT, [facility]/pharmacy #[id number], 182, cm, 05/15/20 [...] 03/31/07 11:15:26, Print MARTIN Number, ADS [facility], [address] [place] [id number], [phone], Constant Indicator Start Date: 03/31/07 Stop Date: [...] Multiple fractures of ribs(Confirmed) 01/06/11 Active Old PR (myocardial infarctio n) X 3(Confirmed) Active PVD (peripheral vascular disease)(Confirmed) Active 1Cardiac stents 1991, 1995 Social History Social History Type Response Tobacco Use: Former smoker.. Sex
--- OUTSIDE RECORDS SUMMARY | 2023-08-15 20:23 | XMS_ITS | Continuity of Care Document ---
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 Start Date: 05/26/22 Stop Date: 06/09/22 Status: Ordered Carafate 1 gm oral tablet 1 Gm, 1, tablet, By Mouth, 3 times a day before meals and bedtime, # 28 tablet, Refills 0, Tot. Refills 0, Maintenance, 06/05/22 9:51:00 EDT, Route to Pharmacy Electronically, [facility]/pharmacy #[id number], Partial fill upon patient request if the prescription i... Start Date: 06/05/22 Stop Date: 06/12/22 Status: Ordered Dilaudid 2 mg oral tablet 2 mg, Tablet, By Mouth, Every 6 hours, PRN for Pain , Moderate, Routine, 06/07/22 1:35:00 EDT Start Date: 06/07/22 Stop Date: 06/07/22 Status: Discontinued Dilaudid 2 mg oral tablet 1 tablet = 2 mg, By Mouth, Every 6 hours, PRN as needed for pain, for 3 days, # 12 tablet, 0 Refills, Acute 06/12/22 9:00:00 EDT, 06/09/22 9:00:00 EDT, Tablet, [facility]/pharmacy #[id number], Partial fill upon patient request if the prescription is for a schedule... Start Date: 06/09/22 Stop Date: 06/12/22 Status: Ordered duloxetine 60 mg oral enteric [...] Maintenance,05/16/22 16:21:00 EDT, Route to Pharmacy Electronically, [facility], Partial fill upon patient request if the prescription is for a sched... Start Date: 05/16/22 Status: Ordered gabapentin 400 mg oral capsule 400 mg, Capsule, By Mouth, 06/07/22 9:00:00 EDT Start Date: 06/07/22 Stop Date: 06/07/22 Status: Completed Incruse Ellipta 62.5 mcg/inh inhalation powder 1 each, Inhalation, Every 24 hours, doses should be taken at least 24 hours apart, j44.9, # 1 each,6 Refills, Maintenance, 03/21/22 9:48:00 EDT, Powder, [facility]/pharmacy #[id number], 182, cm, 03/12/22 4:49:00EDT, Height, 56.7, [...] Refills, Maintenance, 04/03/22 16:44:00 EDT, Film, [facility]/pharmacy #[id number], Partial fill upon patient request if [...] opioid drug. Start Date: 03/25/22 Status: Ordered oxyCODONE 5 mg oral tablet 5 mg, 1, tablet, By Mouth, Every 6 hours, PRN, for 3 days, # 10 tablet, Refills 0, Tot. Refills 0, Acute 06/08/22 9:52:00 EDT, Pain , Severe, 06/05/22 9:52:00 EDT, Route to Pharmacy Electronically, [facility]/pharmacy #[id number], Partial fill upon patient request... Start Date: 06/05/22 Stop Date: 06/08/22 Status: Ordered pantoprazole 40 mg oral delayed release tablet 1 tablet = 40 mg, By Mouth, 2 times a day, # 60 tablet, 0 Refills, Maintenance, 06/01/22 9:27:00 EDT, EC Tablet, 183, cm, 06/01/22 7:31:00 EDT, Height, 63, kg, 05/29/22 1:15:00 EDT, Dry Weight Start Date: 06/01/22 Stop Date: 07/01/22 Status: Ordered predniSONE 5 mg oral delayed [...] 11:40:00 EDT, Route to Pharmacy Electronically, [facility]/pharmacy #[id number], Partial fill upon patientrequest if the prescription is for a schedule II op... Start Date: 04/10/22 Status: Ordered Toprol XL 25 mg oral tablet, extended release 25 mg, XL Tablet, By Mouth, 06/07/22 9:00:00 EDT Start Date: 06/07/22 Stop Date: 06/07/22 Status: Completed Toprol XL 25 mg oral tablet, extended release 25, mg, 1, tablet, By Mouth, Daily, 30, tablet, 6, 6, 03/31/07 11:15:26, Print MARTIN Number, ADS [facility], [address] [place] [id number], [phone], Constant Indicator Start Date: 03/31/07 Stop Date: [...] Multiple fractures of ribs(Confirmed) 01/06/11 Active Old AL (myocardial infarctio n) X 3(Confirmed) Active PVD (peripheral vascular disease)(Confirmed) Active Underweight(Confirmed) Active 1Cardiac stents 1991, 1995 Results Radiology Reports * Exam Date Time Procedure Performing Provider Status 06/06/22 3:13 PM Chest Portable Rowena Hodges; Auth (Verified) Notes: (Chest Portable) Reason For Exam: Shortness of Breath RESULT: Chest Portable Chest Portable Hx of Present Illness: ABD pain, SOB; Reason: Shortness of Breath; Clinical Question(s): Pleural Effusion; pneumonia COMPARISON: None. FINDINGS: LINES AND TUBES: None. LUNGS AND PLEURA: Clear lungs. Normal pulmonary vascularity. No pleural effusion. No pneumothorax. HEART, MEDIASTINUM AND MAMADOU: Heart is normal in size. Normal upper mediastinal and hilar contour. BONES AND SOFT TISSUES: No acute abnormality. Again demonstrated is extensive internal fixation hardware in the right ribs. IMPRESSION: No acute abnormality. WSN: [id number] Ordering Physician: Ca Baird Dictated By: Shannan Heredia MD Dictated Date/Time: 06/06/22 3:16 pm Reviewed By: Shannan Heredia MD Signed By: Shannan Heredia MD Signed Date/Time: 06/06/22 3:16 pm Transcribed By: BERENICE Transcribed Date/Time: 06/06/22 3:15 pm Vital Signs Most recent to oldest [Reference Range]: 1 2 3 Height 182 cm (06/07/22 11:46 AM) 182 cm (06/07/22 7:22 AM) 182 cm (06/07/22 5:38 AM) Weight 54 kg (06/07/22 1:52 AM) Oxygen Saturation [94-100 %] 96 % (06/07/22 11:46 AM) 99 % (06/07/22 7:22 AM) 100 % (06/07/22 5:38 AM) Pulse Rate [55-90 bpm] 75 bpm (06/07/22 11:46 AM) 75 bpm (06/07/22 8:23 AM) 75 bpm (06/07/22 7:22 AM) Body Mass Index [18.5-24.99] 16.3 *L* (06/07/22 1:52 AM) Blood Pressure [90-138/55-84 mm Hg] 121/79mm Hg (06/07/22 11:46 AM) 138/80mm Hg (06/07/22 8:23 AM) 138/80mm Hg (06/07/22 7:22 AM) Respiratory Rate [16-30 br/min] 16 br/min (06/07/22 11:46 AM) 18 br/min (06/07/22 9:16 AM) 18 br/min (06/07/22 8:22 AM) Temperature [96.8-100.4 DegF] 98.2 DegF (06/07/22 11:46 AM) 97.9 DegF (06/07/22 7:22 AM) 98.2 DegF (06/07/22 5:38 AM) Liters per Minute 3 L/min (06/07/22 11:46 AM) 3 L/min (06/07/22 7:22 AM) 3 L/min (06/07/22 5:38 AM) Mode of Delivery (Oxygen) Nasal cannula (06/07/22 11:46 AM) Nasal cannula (06/07/22 7:22 AM) Nasal cannula (06/07/22 5:38 AM) Blood pressure sites Arm, left (06/07/22 11:46 AM) Arm, left (06/07/22:22 AM) Arm, left (06/07/22 5:38 AM) Temperature Route Oral (06/07/22 11:46 AM) Oral (06/07/22 7:22 AM) Oral (06/07/22 5:38 AM) Weight Obtained Via Bed scale (06/07/22 1:52 AM) Social History Social History Type Response Tobacco Use: 4 or less cigar ettes(less than 1/4 pack)/day in last 30 days. Sex
--- OUTSIDE RECORDS SUMMARY | 2023-08-15 20:24 | XMS_ITS | Continuity of Care Document ---
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 Name Role Phone Jose LEE MD, Jorge Tsang Primary Care Physician [phone] [place] [facility] [place]23 - 07/07/[address] [address]- Encounter Diagnosis Humeral fracture(Final) - 07/01/23 Discharge Disposition: A-D/C Home Attending Physician: Mando Randhawa MD Admitting Physician: Cristela AMAYA, Michelle Referring Physician: Not on Staff, Referring MD Allergies, Adverse Reactions, Alerts Substance Reaction Severity Status naproxen lesions on lips Active Toradol Morphine allergy Metaxalone Naproxen Cephalexin allergy hives Persistent Mild Active Keflex 1 rash Active Skelaxin H/O: migraine Active 1tolerates pip/tazo 11/17 Immunizations Given and Recorded Vaccine Date Status Refusal Reason pneumococcal 20-valent conjugate vaccine 02/03/23 Recorded influenza virus vaccine, inactivated 02/03/23 Bubab rded influenza virus vaccine, inactivated 10/27/20 Bubba rded influenza virus vaccine, inactivated 10/27/20 Bubba rded influenza virus vaccine, inactivated 02/03/20 Bubba rded influenza virus vaccine, inactivated 02/03/20 Bubab rded influenza virus vaccine, inactivated 07/26/18 Bubba [...] virus vaccine, inactivated 1 10/14/06 Gi rox [id number] 12y+ bivalent booster vax 08/23/22 Recorded SARS-CoV-2 [...] opioid drug. Start Date: 04/20/23 Status: Ordered atorvastatin 80 mg oral tablet 1 tablet = 80 mg, By Mouth, Daily, 0 Refills, Maintenance, 07/02/22 19:11:00 EDT, Tablet, Partial fill upon patient request if the prescription is for a schedule II opioid drug. Start Date: 07/02/22 Status: Ordered [place] Saline 0.65% nasal gel 1 sprays, Nares, [...] 5 Refills, Maintenance, 04/27/23 13:54:00 EDT, Tablet, [facility], Partial fill upon patient request if the prescription is for a schedule II opioid drug., 183, cm, 04/27/23 7:05:00... Start Date: 04/27/23 Stop Date: 10/24/23 Status: Ordered ferrous sulfate 325 mg oral enteric coated tablet 325 mg, 1, tablet, By Mouth, Daily, # 30 tablet, Refills 1, Tot. Refills 1, Maintenance, 06/04/23 12:19:00 EDT, Route to Pharmacy Electronically, [facility]/pharmacy #[id number], Partial fill upon patient requestif the prescription is for a schedule II opioid rosario... Start Date: 06/04/23 Status: Ordered gabapentin 300 mg oral capsule 600 mg, Capsule, By Mouth, 07/07/23 9:00:00 EDT Start Date: 07/07/23 Stop Date: 07/07/23 Status: Completed gabapentin 300 mg oral capsule 600 mg, 2, capsule, By Mouth, 3 times a day, Refills 0, Maintenance, 01/21/23 10:46:00 EST, Partialfill upon patient request if the prescription is for a schedule II opioid drug. Start Date: 01/21/23 Status: Ordered HYDROmorphone 4 mg oral tablet 4 mg, Tablet, By Mouth, Every 4 hours, PRN for Pain , Severe, Routine, 07/02/23 14:17:00 EDT Start Date: 07/02/23 Stop Date: 07/07/23 Status: Discontinued HYDROmorphone 4 mg oral tablet = 4 mg, By Mouth, 4 times a day, PRN Pain , Severe, # 12 tablet, 0 Refills, Maintenance, 07/06/23 14:09:00 EDT, Tablet, Partial fill upon patient request if the prescription is for a schedule II opioid drug. Start Date: 07/06/23 Stop Date: 07/09/23 Status: Ordered hydrOXYzine hydrochloride 10 mg oral [...] opioid drug. Start Date: 04/20/23 Status: Ordered lidocaine 4% patch 0 Refills, Maintenance, 06/27/23 12:37:00 EDT, Partial fill upon patient request if the prescription is for a schedule II opioid drug. Start Date: 06/27/23 Status: Ordered loperamide 2 mg oral capsule 2 mg, 1, capsule, By Mouth, Every 6 hours, PRN, # 30 capsule, Refills 0, Tot. Refills 0, Maintenance, for loose stool, 06/04/23 11:59:00 EDT, Route to Pharmacy Electronically, [facility]/pharmacy #[id number], Partial fill upon patient request if the [...] opioid drug. Start Date: 04/27/22 Status: Ordered Metoprolol Succinate ER 25 mg oral tablet, extended release 25 mg, XL Tablet, By Mouth, 07/07/23 9:00:00 EDT Start Date: 07/07/23 Stop Date: 07/07/23 Status: Completed Narcan 4 mg/0.1 mL nasal spray See Instructions, If concern for opioid overdose. Gently insert the tip of the nozzle into one nostril, until your fingers on either side of the nozzle are against the bottom of the person's nose. Press the plunger firmly to give the dose of NARCAN Na... Start Date: 05/12/23 Status: Ordered predniSONE 5 mg oral tablet 3 tablet = 15 mg, By Mouth, Daily, 15 mg daily maintanence dose after the initial taper, # 90 tablet, 0 Refills, Maintenance, 06/08/23 13:43:00 EDT, Tablet, [facility]/pharmacy #[id number], Partial fill upon patient [...] 0 Refills, Maintenance, 05/06/23 9:44:00 EDT, Tablet, [facility]/pharmacy #[id number], Partial fill upon patient request if the prescription is for a schedule II opioid drug., 182, cm, 05/06/23 7:54:00 EDT, Height,... Start Date: 05/06/23 Status: Ordered sodium chloride 0.65% nasal spray 1 sprays, Nares, Both, 5 times a day, dryness, # 1 each, 0 Refills, Maintenance, 05/12/23 15:40:00 EDT, Nasal [place], [facility]/pharmacy #[id number], Partial fill upon patient request [...] antibiotics., # 60 each, 0 Refills, Acute 08/06/23 7:55:00 EDT, 07/07/23... Start Date: 07/07/23 Stop Date: 08/06/23 Status: Ordered Vitamin B1 100 mg oral [...] fractures of ribs Confirmed 01/06/11 Active Old [place] (myocardial infarction) X 3 Confirmed Active PVD (peripheral vascular disease) Confirmed Active Tobacco dependence Confirmed Active Underweight Confirmed Active 1Cardiac stents 1991, 1995 Results Radiology Reports * Exam Date Time Procedure Performing Provider Status 07/01/23 4:39 AM Chest 2 Views Frontal and Lat Chris Smith; Luis M (Verified) Notes: (Chest 2 Views Frontal and Lat) Reason For Exam: COPD RESULT: Chest 2 Views Frontal and Lat Chest 2 Views Frontal and Lat INDICATION: Hx of Present Illness: Pt was dc'd from unit. refused rehab at time of dc. went home. pt states he was lying in bed and he rolled over and my L arm snapped like a twig. states took dilaudid 4mg po at 1645.; Reason: COPD; Clinical Question(s): Pneumonia COMPARISON: 06/22/2023 FINDINGS: There is no pneumothorax or pleural effusion. Heart size is normal. No focal infiltrate. Right multiple rib fixation hardware as are unchanged. Known left humeral head fracture. IMPRESSION: No acute abnormality. WSN: [id number] Ordering Physician: Sherry Shaw Dictated By: Jeannine Barry MD Dictated Date/Time: 07/01/23 8:53 am Reviewed By: Jeannine Barry MD Signed By: Jeannine Barry MD Signed Date/Time: 07/01/23 8:53 am Transcribed By: BERENICE Transcribed Date/Time: 07/01/23 8:52 am * Exam Date Time Procedure Performing Provider Status 07/01/23 4:39 AM Humerus Min 2 Views Left SarahAsa Cadet n; Auth (Verified) Notes: (Humerus Min 2 Views Left) Reason For Exam: pain ;Other: RESULT: Humerus Min 2 Views Left Shoulder Min 2 Views Left, Humerus Min 2 Views Left INDICATION: Hx of Present Illness: Pt was dc'd from unit. refused rehab at time of dc. went home. pt states he was lying in bed and he rolled over and my L arm snapped like a twig. states took dilaudid 4mg po at 1645.; Reason: Pain; Clinical Question(s): Fracture; Order Comment: Pt needs to be instretcher. @ 1819 COMPARISON: 06/22/2023 FINDINGS: There is a displaced, overlapping left humeral surgical neck comminuted fracture. There is probablymore displacement of the fracture fragments from prior. Rest of the left humerus is intact. There is no subluxation. IMPRESSION: Left humeral surgical neck comminuted fracture with probable more displacement from previous. WSN: [id number] Ordering Physician: Suman Lezama Dictated By: Jeannine Barry MD Dictated Date/Time: 07/01/23 8:51 am Reviewed By: Jeannine Barry MD Signed By: Jeannine Barry MD Signed Date/Time: 07/01/23 8:51 am Transcribed By: BERENICE Transcribed Date/Time: 07/01/23 8:44 am * Exam Date Time Procedure Performing Provider Status 07/01/23 4:39 AM Shoulder Min 2 Views Left Laura Smith on; Auth (Verified) Notes: (Shoulder Min 2 Views Left) Reason For Exam: Pain RESULT: Shoulder Min 2 Views Left Shoulder Min 2 Views Left, Humerus Min 2 Views Left INDICATION: Hx of Present Illness: Pt was dc'd from unit. refused rehab at time of dc. went home. pt states he was lying in bed and he rolled over and my L arm snapped like a twig. states took dilaudid 4mg po at 1645.; Reason: Pain; Clinical Question(s): Fracture; Order Comment: Pt needs to be instretcher. @ 1819 COMPARISON: 06/22/2023 FINDINGS: There is a displaced, overlapping left humeral surgical neck comminuted fracture. There is probablymore displacement of the fracture fragments from prior. Rest of the left humerus is intact. There is no subluxation. IMPRESSION: Left humeral surgical neck comminuted fracture with probable more displacement from previous. WSN: [id number] Ordering Physician: Suman Lezama Dictated By: Jeannine Barry MD Dictated Date/Time: 07/01/23 8:51 am Reviewed By: Jeannine Barry MD Signed By: Jeannine Barry MD Signed Date/Time: 07/01/23 8:51 am Transcribed By: BERENICE Transcribed Date/Time: 07/01/23 8:44 am Vital Signs Most recent to oldest [Reference Range]: 1 2 3 Height 183 cm (07/07/23 7:49 AM) 183 cm (07/06/23 7:34 PM) 183 cm (07/06/23 8:11 AM) Weight 54.9 kg (07/01/23 4:42 PM) 59 kg (07/01/23 5:46 AM) 59 kg (06/30/23 5:44 PM) Oxygen Saturation [94-100 %] 96 % (07/07/23 7:49 AM) 96 % (07/06/23 7:34 PM) 98 % (07/06/23 3:00 PM) Pulse Rate [55-90 bpm] 85 bpm (07/07/23 7:49 AM) 85 bpm (07/07/23 7:33 AM) 93 bpm *H* (07/06/23 7:34 PM) Body Mass Index [18.5-24.99 kg/m2] 16.39 kg/m2 *L* (07/01/23 4:42 PM) 17.62 kg/m2 *L* (07/01/23 5:46 AM) 17.62 kg/m2 *L* (06/30/23 5:38 PM) Blood Pressure [90-138/55-84 mm Hg] 132/88mm Hg (07/07/23 7:49 AM) 132/88mm Hg (07/07/23 7:33 AM) 148/75mm Hg *H* (07/06/23 7:34 PM) Respiratory Rate [16-30 br/min] 18 br/min (07/07/23 7:49 AM) 18 br/min (07/07/23 7:33 AM) 19 br/min (07/07/23 6:06 AM) Temperature [96.8-100.4 DegF] 98.4 DegF (07/07/23 7:49 AM) 98.4 DegF (07/06/23 7:34 PM) 98.6 DegF (07/06/23 3:00 PM) Liters per Minute 3 L/min (07/07/23 7:49 AM) 3 L/min (07/06/23 7:34 PM) 2 L/min (07/06/23 3:00 PM) Mode of Delivery (Oxygen) Nasal cannula (07/07/23 7:49 AM) Nasal cannula (07/06/23 7:34 PM) Nasal cannula (07/06/23 3:00 PM) Blood pressure sites Arm, right (07/07/23 7:49 AM) Arm, left (07/06/23 7:34 PM) Arm, right (07/06/23 3:00 PM) Temperature Route Oral (07/07/23 7:49 AM) Oral (07/06/23 7:34 PM) Oral (07/06/23 3:00 PM) Dry Weight 54.9 kg (07/01/23 4:42 PM) 59 kg (07/01/23 5:46 AM) 59 kg (06/30/23 5:44 PM) Weight Obtained Via Bed scale (07/01/23 4:42 PM) Patient/family stated (06/30/23 5:38 PM) Dry Weight Obtained Via Bed scale (07/01/23 4:42 PM) Patient/family stated (06/30/23 5:38 PM) Social History Social History Type Response Tobacco Use: 4 or less cigar ettes(less than 1/4 pack)/day in last 30 days. Interested in cessation: Yes. Other: Reports smoked at least 30 years, up to 1-2 PPD at one point.. Type: Cigarettes. Sex Male History and physical note * Manuel Dias MD S: MODIFY, PERFORM, MODIFY, MODIFY, MODIFY, MODIFY Event Display: History and Physical Hospital Authored Date: Patient: ??ANT VARMA ? Age:??67 Years?Sex:??Male?:??1955?? Subjective 67-year-old gentleman with a complex medical history including COPD??with chronic respiratory failure on home??oxygen 4 L??by nasal cannula,??and presently also on??prednisone 15 mg daily,??longstanding tobacco abuse,??left lower extremity DVT, severe peripheral vascular disease status post left fem oral??popliteal bypass and left femoral??enterectomy, bilateral iliac stent and??left common iliac stent on??apixaban,??known right shoulder septic arthritis currently on Bactrim due to??MRSA??on recent superficial wound culture??abdomen discharge from hospital 06/21/2023, previous alcohol use disord er. ??He had initially presented??on 06/06/2023 in the setting of a??mechanical fall and a fracture of the left??humeral head.?? CT chest also showed an acute left fifth rib fracture??that was nondisplaced. ??Orthopedics recommended conservative management??as hospital course was complicated by??a drop of his hemoglobin requiring 1 unit of packed red blood cell transfusion??no evidence of bleeding.?? It was recommended that he go??to rehab but he initially declined this??but now wishes??to go torehab.?? Hence he has represented to hospital??for patient placement. ?? His??readmission labs show persistent leukocytosis with left shift over the course of his recent hospitalizations. ??Platelet count is 477, last being 361 only 5 days ago. ??It appears that present admission he is hemoconcentrated. ??Metabolic panel she was unremarkable electrolytes, though he doeshave an elevated BUN to 24 compared to apparent baseline ranging in the mid teens. ?? Review of Systems Constitutional:??No weight loss, fever, chills, +fatigue Eyes:??No visual loss, blurred vision, double vision ENT:??No hearing loss, sneezing, congestion, runny nose or sore throat. Respiratory:??No acute on chronic??shortness of breath, cough or sputum production. Cardiovascular:??No chest pain, chest pressure or chest discomfort. No palpitations or pedal edema. Gastrointestinal:??No anorexia, nausea, vomiting or diarrhea. No abdominal pain or blood in stool. Genitourinary:??No burning micturition. No urinary frequency or incontinence. Neurologic:??No headache, dizziness, syncope, unilateral weakness, ataxia, numbness or tingling in the extremities. No change in bowel or bladder control. Musculoskeletal:??+ joint pains (recent fall and fractures of humerus and rib) Endocrine:??No reports of sweating. No cold or heat intolerance. No polyuria or polydipsia. Psychiatric:??No depression or anxiety. Objective Vital Signs?? Temperature: 98.4 DegF (07/01/23 14:00:00) Temperature Route: Oral (07/01/23 14:00:00) Pulse Rate: 87 bpm (07/01/23 05:46:00) Respiratory Rate: 18 br/min (07/01/23 14:11:00) Vented: No (07/01/23 05:46:00) Systolic Blood Pressure: 122 mm Hg (07/01/23 14:00:00) Diastolic Blood Pressure: 79 mm Hg (07/01/23 14:00:00) Blood pressure sites: Arm, left (07/01/23 14:00:00) Mean Arterial Pressure: 89 mm Hg (07/01/23 05:46:00) Pulse Pressure: 43 mm Hg (07/01/23 14:00:00) Oxygen Saturation: 97 % (07/01/23 14:00:00) Liters per Minute: 4 L/min (07/01/23 14:00:00) Mode of Delivery (Oxygen): Nasal cannula (07/01/23 14:00:00) Early Warning Score: 3 (07/01/23 15:05:46) ? Intake/Output? No Data Available ? Physical Exam Constitutional: Alert, in no distress. Mental Status: Oriented to person, place and time. Head: Normocephalic. Eyes: Pupils are equal, round and reactive to light. Respiratory: Clear to auscultation. No wheezing, rales or rhonchi. Diminished breath sounds throughout. Cardiovascular: S1 S2 regular. No murmurs, rubs or gallops. Gastrointestinal: Abdomen soft, non-tender Neurologic: Cranial nerves II-XII grossly intact. Ext: No edema, no cyanosis, no clubbing Psychiatric: Normal mood and affect _ Inpatient Medications Medications (31) Active SCHEDULED: (19) Albuterol/Ipratropium Inhalation Marilin 3mL (Duoneb Inhalation Solution) ??1 vials, BAND Nebulizer, 4 times a day Apixaban 5 mg Tablet (Eliquis) ??5 mg, By Mouth, 2 times a day Atorvastatin 80 mg Tablet (atorvastatin 80 mg oral tablet) ??80 mg, By Mouth, Daily Breo Ellipta 200 mcg / 25 mcg Inhaler (Breo Ellipta 200 mcg-25 mcg Inhaler) ??1 puffs, Inhalation, Daily Collagenase Topical Oint (30 Gm) (Collagenase Topical Oint) ??1 application, Topically, Daily Dicyclomine 10 mg Capsule (dicyclomine 10 mg oral capsule) ??10 mg 1 capsule, By Mouth, 4 times a day Duloxetine 60 mg Capsule (Duloxetine) ??60 mg, By Mouth, 2 times a day Ferrous Sulfate 325 mg EC Tablet (ferrous sulfate 325 mg oral enteric coated tablet) ??325 mg, By Mouth, Daily Gabapentin 300 mg Capsule (gabapentin 300 mg oral capsule) ??600 mg, By Mouth, 3 times a day Isosorbide Dinitrate 5 mg Tablet (isosorbide dinitrate 20 mg oral tablet) ??30 mg, By Mouth, 2 times a day Lidocaine 5% Topical Patch (Lidocaine 5% Patch) ??2 each, Topically, Daily Metoprolol 25 mg XL Tablet (Metoprolol Succinate ER 25 mg oral tablet, extended release) ??25 mg, By Mouth, Daily NaCl 0.9% Flush 3ml (NaCL 0.9% Flush) ??3 mL, IV Push, Every 8 hours Pantoprazole 40 mg EC Tablet (pantoprazole 40 mg oral delayed release tablet) ??40 mg, By Mouth, Daily PredniSONE 5 mg Tablet (predniSONE 5 mg oral tablet) ??15 mg, By Mouth, Daily Remove Patch (Remove Lidocaine Patch) ??2 each, Topically, Daily at bedtime Roflumilast 500 mcg Tablet (roflumilast 500 mcg oral tablet) ??500 mcg, By Mouth, Daily Sulfamethoxazole 800 mg/Trimethoprim 160 mg Tablet (Sulfamethoxazole 800mg/Trimethoprim 160 mg Tablet) ??1 tablet, By Mouth, 2 times a day Thiamine 100 mg Tablet (Vitamin B1 100 mg oral tablet) ??100 mg, By Mouth, Daily CONTINUOUS: (0) PRN: (12) Acetaminophen 325 mg Tablet (Acetaminophen Tablet) ??650 mg, By Mouth, Every 8 hours Acetaminophen 325 mg Tablet (Acetaminophen Tablet) ??650 mg, By Mouth, Every 4 hours Albuterol 90mcg/Inhalation Inhaler HFA (Ventolin 90 mcg Inhaler) ??180 mcg 2 puffs, Inhalation, Every 4 hours Dextromethorphan-Guaifenesin 20 mg-200 mg/10 mL Liqu UD (Robitussin DM Liquid) ??10 mL, By Mouth, Every 4 hours HYDROmorphone 4 mg Tablet (HYDROmorphone 4 mg oral tablet) ??4 mg, By Mouth, Every 4 hours HydrOXYzine HCL 10mg Tablet (hydrOXYzine hydrochloride 10 mg oral tablet) ??10 mg, By Mouth, 3 times a day Loperamide 2 mg Capsule (loperamide 2 mg oral capsule) ??2 mg, By Mouth, Every 3 hours Melatonin 3 mg Tablet (Melatonin Tablet) ??3 mg, By Mouth, Daily at bedtime NaCl 0.9% Flush 3ml (NaCL 0.9% Flush) ??3 mL, IV Push, Every 8 hours Polyethylene Glycol 17 Gm Powder (MiraLax Powder) ??17 Gm 1 pack/packet, By Mouth, Daily Senna 8.6 mg / Docusate 50 mg tablet (Docusate/Senna Tablet) ??1 tablet, By Mouth, 2 times a day Simethicone 80 mg Chewable Tablet (Simethicone Tablet) ??80 mg, Chew, 3 times a day ? Results Recent Labs BLOOD COUNT & DIFF WBC 16.4 k/mm3 (High)?? 07/01/2023 03:36 RBC 3.28 m/mm3 (Low)?? 07/01/2023 03:36 Hgb 9.1 Gm/dL (Low)?? 07/01/2023 03:36 Hct 28.9 % (Low)?? 07/01/2023 03:36 MCV 88.1 femtoliters ()?? 07/01/2023 03:36 MCH 27.7 pg ()?? 07/01/2023 03:36 MCHC 31.5 g/dL (Low)?? 07/01/2023 03:36 Platelet Count 477 k/mm3 (High)?? 07/01/2023 03:36 RDW-SD 53.6 femtoliters (High)?? 07/01/2023 03:36 MPV 8.9 femtoliters (Low)?? 07/01/2023 03:36 Nucleated RBC (Automated) 0.0 #/100 WBC'S ()?? 07/01/2023 03:36 Abs. NRBC 0.0 k/mm3 ()?? 07/01/2023 03:36 Abs. Neut 12.5 k/mm3 (High)?? 07/01/2023 03:36 Abs. Lymph 1.7 k/mm3 ()?? 07/01/2023 03:36 Abs. Du[place]in 1.1 k/mm3 ()?? 07/01/2023 03:36 Abs. Eo 0.0 k/mm3 ()?? 07/01/2023 03:36 Abs. Baso 0.0 k/mm3 ()?? 07/01/2023 03:36 Neut % 76.7 % (High)?? 07/01/2023 03:36 Lymph % 9.5 % (Low)?? 07/01/2023 03:36 [place]in % 6.9 % ()?? 07/01/2023 03:36 Eos % 0.0 % ()?? 07/01/2023 03:36 Baso % 0.0 % ()?? 07/01/2023 03:36 Promyelocyte % 0.9 % ()?? 07/01/2023 03:36 Myelocytes % 3.4 % ()?? 07/01/2023 03:36 Metamyelocyte % 1.7 % ()?? 07/01/2023 03:36 Atypical Lymph % 0.9 % ()?? 07/01/2023 03:36 RBC Morphology FEW ()?? 07/01/2023 03:36 Platelet Estimate INCREASED ()?? 07/01/2023 03:36 ?? CHEM GENERAL Sodium 137 mmol/L ()?? 07/01/2023 03:36 Potassium 4.1 mmol/L ()?? 07/01/2023 03:36 Chloride 98 mmol/L ()?? 07/01/2023 03:36 Bicarbonate Level 28 mmol/L ()?? 07/01/2023 03:36 Anion Gap 11 ()?? 07/01/2023 03:36 Glucose Level 74 mg/dL ()?? 07/01/2023 03:36 BUN 24 mg/dL (High)?? 07/01/2023 03:36 Creatinine-Blood 0.6 mg/dL (Low)?? 07/01/2023 03:36 Estimated GFR Creatinine 107 ML/MIN/1.73 M2 ()?? 07/01/2023 03:36 Calcium 9.0 mg/dL ()?? 07/01/2023 03:36 ?? HEME OTHER Hold Blue Top SPECIMEN DISCARDED AFTER 4 HOURS. ()?? 07/01/2023 03:36 ?? MISC. CHEMISTRY Hold Green Top SPECIMEN DISCARDED AFTER 1 WEEK ()?? 07/01/2023 03:36 Hold Pham Top SPECIMEN DISCARDED AFTER 1 WEEK ()?? 07/01/2023 03:36 ?? URINE OTHER Est Creatinine Clearance 102.43 mL/min ()?? 07/01/2023 04:31 ?? VIROLOGY COVID-19 PCR Specimen Source NASAL ()?? 07/01/2023 06:18 COVID-19 PCR Result NEGATIVE ()?? 07/01/2023 06:18 ? Assessment/Plan ?? 67-year-old gentleman with a complex medical history including COPD??with chronic respiratory failure on home??oxygen 4 L??by nasal cannula,??and presently also on??prednisone 15 mg daily,??longstanding tobacco abuse,??left lower extremity DVT, severe peripheral vascular disease status post left fem oral??popliteal bypass and left femoral??enterectomy, bilateral iliac stent and??left common iliac stent on??apixaban,??known right shoulder septic arthritis currently on Bactrim due to??MRSA??on recent superficial wound culture??abdomen discharge from hospital 06/21/2023, previous alcohol use disord er. ??He had initially presented??on 06/06/2023 in the setting of a??mechanical fall and a fracture of the left??humeral head.?? CT chest also showed an acute left fifth rib fracture??that was nondisplaced. ??Orthopedics recommended conservative management??as hospital course was complicated by??a drop of his hemoglobin requiring 1 unit of packed red blood cell transfusion??no evidence of bleeding.?? It was recommended that he go??to rehab but he initially declined this??but now wishes??to go torehab.?? Hence he has represented to hospital??for patient placement. ?? Admission labs show??persistent leukocytosis with left shift as well as??relatively elevated hemoglobin and hematocrit??and platelet count??in comparison to his most recent discharge Elevated BUN??24 with a baseline that is normally in the mid teens.?? As such SRINIVASAN. Suspicion is that he has hemoconcentration contributing to these findings. Plan: -Encourage oral??fluid intake. -Repeat CBC??and metabolic panel??tomorrow to assess for??response. -We will consider??IV fluid boluses as needed. ?? Status post mechanical??fall, Left humeral head fracture??on most recent admission 06/06/2023 CT showed Acute impacted fracture of the left humeral head. Plan: - Orthopedics had recommended??wearing a sling, nonbearing status, orthopedic follow-up who recommended sling - Pain control with p.o. hydromorphone??as needed ?? Left fifth rib fracture CT chest also showed acute left fifth rib fracture, nondisplaced Plan: -Tylenol as needed for pain control - Incentive spirometry, DuoNebs??nebs, CPT with Acapella - Pain control with hydromorphone as above ?? Acute on chronic anemia Chronic anemia baseline 7-8. ??On 06/24/2023 he was transfused 1 unit of packed red blood cells for a hemoglobin of 6.7. Previously had extensive work up for anemia. No active bleeding Haptoglobin High Plan: -We will assess CBC??again tomorrow??and going forward until placement is likely just H&H's daily. - Transfuse for??hemoglobin less than 7 ?? COPD, not actively exacerbated??on chronic home oxygen and prednisone therapy Following his discharge on 06/22??for COPD exacerbation??he was commenced on a prednisone taper initially 40 milligrams??and now tapered down to??15 mg daily.?? Plan: -??Juan scheduled - Albuterol as needed -Continue home Roflumilast - We will put him on Breo for as long as he stays in hospital??as??we do not have Symbicort which is a??home medication of his - Continue with??4 L nasal cannula by oxygen for which he does the same at home.?? -??Incentive spirometry - Acapella CPT TID ?? History of chronic right shoulder septic arthritis Plan: - Cont. Bactrim as per ID recommendations from prior admissions ?? Wound on right shoulder ??Wound care : Cleanse with Vashe. Pat dry. Apply z-guard to periwound. Apply morena thick layer of Santyl to wound bed. Cover with Mepilex foam dressing. Change daily and PRN for soilage/soaking. ?*If wound is draining through Mepilex foam dressing; Please use Mextra Pad with DSD* ??Patient should follow-up with orthopedics at [facility] as outpatient ? Acute on Chronic pain History of??chronic opioid dependence History of multiple vertebral fractures, rib fractures that are constant sources of pain for him Currently on duloxetine, gabapentin Patient reports Home Dilaudid is 4 mg q4 hours, and that he gets pain meds through Dr. César Anglin (physician confirmed by previous hospitalist??who also called Dr. Romero office, per their office patient is still on their records as Dr. Romero pt but patient has not??been seen since August and last prescription from them was in August 2022. patient has multiple op prescriptions from different providers since then. Does have multiple admissions, in addition to ED visits for pain medication prescription as well.) Been on IV Dilaudid??during his most recent admission but this was weaned off until p.o. Dilaudid. ??He had been on p.o. oxycodone??but this was stopped on 06/29/2023. Plan: -In control with hydromorphone??orally as above -Lidocaine patches to both arms daily ?? History of DVT Plan: -Continue Eliquis -Continue on atorvastatin ?? Hypertension Plan: -Continue Isosorbide -Continue??Metoprolol ?? Quality measures DVT prophylaxis: Apixaban Diet: regular Med??rec:??Completed CODE STATUS: Full code Disposition: Discharged to rehab EKG study * Event Display: EKG Authored Date: * Event Display: ECG 12-Lead Authored Date: Please click on pdf link to open report * Event Display: ECG 12-Lead Authored Date: Ventricular Rate: 96 BPM Atrial Rate: 96 BPM P-R Interval: 148 ms QRS Duration: 84 ms Q-T Interval: 348 ms QTC Calculation(Bazett): 439 ms P [place]: 76 degrees R [place]: -35 degrees T [place]: 55 degrees Normal sinus rhythm Left axis deviation Abnormal ECG When compared with ECG of 30-JUN-2023 20:06, Fusion complexes are no longer Present Premature supraventricular complexes are no longer Present Confirmed by ARMINDA JEREZ ([id number]) on 07/01/2023 7:26:54 AM [place]: ARMINDA JEREZ * Event Display: ECG 12-Lead Authored Date: Please click on pdf link to open report * Event Display: ECG 12-Lead Authored Date: Ventricular Rate: 102 BPM Atrial Rate: 102 BPM P-R Interval: 130 ms QRS Duration: 86 ms Q-T Interval: 340 ms QTC Calculation(Bazett): 443 ms P [place]: 70 degrees R [place]: -36 degrees T [place]: 60 degrees Sinus tachycardia with Premature supraventricular complexes and Fusion complexes Left axis deviation Abnormal ECG When compared with ECG of 22-JUN-2023 09:51, Fusion complexes are now Present Premature supraventricular complexes are now Present Confirmed by ARMINDA JEREZ ([id number]) on 07/01/2023 7:16:32 AM [place]: ARMINDA JEREZ [facility] Progress note * Daniela Levi RN: PERFORM, SIGN, VERIFY Event Display: Progress Note Hospital Authored Date: [id number] Patient: ANT VARMA Age: 67 years Sex: Male : 1955 Associated Diagnoses: None Author: Daniela Levi RN Findings Narrative/Incidental Dressing changed to right anterior shoulder with Vashe, iodasorb and DSD with Mepilex as ordered. Wound bed is light green/soto. Patient asking for pain shot . explained to patient that he is not duefor shot at this time. patient is aware of and agrees with plan for discharge to home today. JANET evans patient at 9AM. will continue to monitor.. * Ryan Flores RN: VERIFY, MODIFY, SIGN, PERFORM, SIGN Event Display: Progress Note Hospital Authored Date: [id number] Patient: ANT VARMA Age: 67 years Sex: Male : 1955 Associated Diagnoses: None Author: Ryan Flores RN Findings Problem Related to Alteration in Comfort : Alteration in Comfort/new 07/06/2023 21:00 EDT Alteration in Comfort Related to Injury, Surgery Goals & Outcomes: Comfort Pt will state importance of adhering to pain strategy regime Interventions Implemented: Comfort Assess pain using appropriate pain scale/tools Goals/Interventions, Comfort Yes Comfort, Problem Start 07/03/2023 16:14 Reviewed plan with, Comfort Patient Patient Progression, Comfort Pt progressing according to plan Comfort, Problem Ongoing Yes . Nursing Data Vital Signs : VITAL SIGNS SECTION 07/06/2023 19:34 EDT Temperature 98.4 DegF Temperature Route Oral Pulse Rate 93 bpm H Respiratory Rate 18 br/min Systolic Blood Pressure 148 mm Hg H Diastolic Blood Pressure 75 mm Hg Blood pressure sites Arm, left Mean Arterial Pressure 99 mm Hg Pulse Pressure 73 mm Hg Oxygen Saturation 96 % Liters per Minute 3 L/min Mode of Delivery (Oxygen) Nasal cannula . Evaluation Pt A+Ox3. Pt continuously asking for pain meds and coffee throughout shift. VSS on 3L nasal canula.C/O 09/06 Bilateral shoulder pain. PRN medications given with some effect. Incontinent of bowel andbladder. Primo fit in place. Hourly rounding in place. Safety/comfort maintained. . Discharge Information Case Management Discharge Plan : Case Management Discharge Plan Data 07/06/2023 14:33 EDT Discharge Level of Care at Discharge Not Done: Order Discontinued (Not Done) 06/30/2023 13:39 EDT Discharge Level of Care at Discharge [facility] facility Discharge Nursing Homes/Rehab Facilities [facility] Rehabilitation Discharge : Rehab Discharge Index 07/01/2023 10:49 EDT Comments on treatment indicated 67 M re-admitted 2' shoulder px, L humerus fx, chronic R shoulder septic arthritis. NWB B UE / L UE c sling. Skilled PT for bed to chair transfers, strength, balance, safety. Rec rehab (Modified) Distance pt will ambulate > 5 feet c LRAD Full chart review completed Yes Other findings see comment Plan of care PT Gait training, Transfer training, Therapeutic exercise, Functional Activities, Balance training, Neuromuscular education * Tayler Blackwell RN: VERIFY, MODIFY, SIGN, MODIFY, SIGN, PERFORM, SIGN Event Display: Progress Note Hospital Authored Date: Patient: ANT VARMA Age: 67 years Sex: Male : 1955 Associated Diagnoses: None Author: Tayler Blackwell RN Findings Evaluation A+Ox4, c/o 08/07, aching bilateral shoulder pain, PRN Morphine given at 9:45//15:58, Dilaudid, 10:05//14:00//18:15, APAP,08:57//12:17, w/ + effect. Lidocaine patchhes applied to bilateral shoulders. Lung sounds clear throughout bilaterally, occasional non-productive cough, PRN cough syrup given at 12:17 on 2L of O2 via NC. No edema. Incontinent x2, primofit in place draining C/Y/O urine. ABD. soft, +BS4Q. Scattered bruising of BUE, R shoulder dressing changed, see CIS. OOB 1 assist and use of walker, unsteady. See CIS for complete assessment. Safety/comfort maintained, call giraldo within reach, frequent rounding provided. PRN Loperamide given at 14:41 D/C Home tommorw, 07/07, 09:00, planned c/o anxiety, PRN Hydroxysine given at 15:58. Discharge Information Case Management Discharge Plan : Case Management Discharge Plan Data 07/06/2023 14:33 EDT Discharge Level of Care at Discharge Not Done: Order Discontinued (Not Done) 06/30/2023 13:39 EDT Discharge Level of Care at Discharge [facility] facility Discharge Nursing Homes/Rehab Facilities [facility] Rehabilitation Discharge : Rehab Discharge Index 07/01/2023 10:49 EDT Comments on treatment indicated 67 M re-admitted 2' shoulder px, L humerus fx, chronic R shoulder septic arthritis. NWB B UE / L UE c sling. Skilled PT for bed to chair transfers, strength, balance, safety. Rec rehab (Modified) Distance pt will ambulate > 5 feet c LRAD Full chart review completed Yes Other findings see comment Plan of care PT Gait training, Transfer training, Therapeutic exercise, Functional Activities, Balance training, Neuromuscular education Consult note * Deja Rea RN: PERFORM, SIGN, VERIFY Event Display: Consultation Note Authored Date: Patient: ANT VARMA Age: 67 years Sex: Male : 1955 Associated Diagnoses: None Author: Deja Rea RN 2x08 right shoulder History of Presenting Problem Date of Service 07/04/2023 Reason for referral Wound Description Location: Right shoulder Etiology: Non healing surgical wound Wound Bed: 75% soto slough, 25% pale pink tissue Measurements: 2 cm x 0.8 cm Edges: Linear, intact and attached, macerated Drainage: Copious amounts of serous drainage Odor: None Goals: Control moisture, decrease bioburden Wound RN consult entered to assess right shoulder, chronic septic arthritis wound and make topical recommendations. Patient was admitted for rehabilitation placement, after a recent admission post fall and left humeral head and right fractures. Upon discharge from that hospital stay, he had declined rehabilitation placement, now returned after reconsideration of that decision. Upon entering [facility] patient is lying in bed. Wound RN role explained and patient is agreeable to assessment as well as photodocumentation. Dressing removed from right shoulder and wound is visualized, which is described in detail above. Recommendations given to direct care RN and cortext message sent to CAMILA Nuno as well. Recommendations: 1. Right shoulder: Cleanse with Vashe. Pat dry. Apply Iodosorb gel (obtained from distribution) to wound bed. Cover with gauze and apply Mepilex foam dressing. Change every other day and PRN for soilage. 2. Continue to provide optimal nutritional support Please reconsult wound RN for deterioration in wound/skin status. Plan Time spent 16-30 minutes Note * Daniela Levi RN: PERFORM Event Display: Discharge/Transfer Note Hospital Authored Date: [id number] Nursing Discharge Note Entered On: 07/07/2023 9:38 EDT Performed On: 07/07/2023 9:36 EDT by Daniela Levi RN Nursing Discharge Note 2 Discharge Time : 07/07/2023 9:40 EDT Discharge Level of Care at Discharge : Home/Nursing Home/Foster Care Patient Left Unit Via : Ambulance Patient Accompanied Off Unit with : Ambulance/Chair Van Personnel Handover Given to Transport Personnel : Yes DC Instructions Provided & Signed by Pt : Yes Patient Understands D/C Instructions : Yes Verbalized Understanding of D/C Plan By : Patient Patient Instructions Discharge Signed : Yes Did Pt have Specialty Bed or Wound Vac : Yes Daniela Levi RN - 07/07/2023 9:36 EDT * Mando Randhawa MD: MODIFY, PERFORM Event Display: Discharge/Transfer Note Hospital Authored Date: [id number] Patient: ??ANT VARMA ? Age:??67 Years?Sex:??Male?:??1955?? Patient Information Discharge Location: S3 Primary Care Physician: Jorge Garcia III, MD Admit Date/Time: 06/30/23 17:28 Discharge Disposition Discharge Disposition: ?? Discharge Diagnosis COPD on long-term oral steroid therapy (J44.9) Chronic respiratory failure with hypoxia (J96.11) DVT (deep venous thrombosis) (I82.409) Fracture of rib of left side (S22.32XA) Humeral fracture (S42.309A) Left humeral fracture (S42.302A) Septic arthritis of shoulder, right (M00.9) Anxiety CAD - Coronary artery disease COPD (chronic obstructive pulmonary disease) Chronic low back pain Deep vein thrombosis (DVT) of left lower extremity GERD (gastroesophageal reflux disease) HTN (hypertension) History of Alcohol dependency Hyperlipidemia PVD (peripheral vascular disease) Smoking greater than 40 pack years ?? _ Discharge Medications Acetaminophen (acetaminophen 325 mg oral tablet)?650?Milligram?2?tablet?By Mouth?Every 4 hours?as needed?as needed for fever Albuterol (albuterol 0.042% inhalation solution)?3?Milliliter?1.25?Milligram?Neb?Every 4 hours apixaban (Eliquis 5 mg oral tablet)?1?tab(s)?5?Milligram?By Mouth?2 times a day?for 30?Days Atorvastatin (atorvastatin 80 mg oral tablet)?1?tab(s)?80?Milligram?By Mouth?Daily Collagenase Topical (collagenase topical 250 u/gm ointment)?See Instructions?Use over right shoulder wound daily Dicyclomine (dicyclomine 10 mg oral capsule)?1?capsule?10?Milligram?By Mouth?4 times a day Duloxetine (duloxetine 60 mg oral enteric coated capsule)?1?capsule?60?Milligram?By Mouth?2 times a day Ferrous Sulfate (ferrous sulfate 325 mg oral enteric coated tablet)?325?Milligram?1?tablet?By Mouth?Daily Gabapentin (gabapentin 300 mg oral capsule)?600?Milligram?2?capsule?By Mouth?3 times a day Guaifenesin/Dextromethorphan (Robitussin DM Liquid)?5?Milliliter?By Mouth?Every 6 hours?as needed?Cough Hydromorphone (HYDROmorphone 4 mg oral tablet)?4?Milligram?By Mouth?4 times a day?asneeded?Pain , Severe?for 3?Days HydrOXYzine (hydrOXYzine hydrochloride 10 mg oral tablet)?1?tab(s)?10?Milligram?By Mouth?3 times a day?as needed?Anxiety Isosorbide Dinitrate (isosorbide dinitrate 30 mg oral tablet)?1?tab(s)?30?Milligram?By Mouth?2 times a day Loperamide (loperamide 2 mg oral capsule)?2?Milligram?1?capsule?By Mouth?Every 6 hours?as needed?for loose stool Melatonin?10?Milligram?By Mouth?Daily at bedtime?as needed?as needed for sleep Metoprolol (Metoprolol Succinate ER 25 mg oral tablet, extended release)?1?tab(s)?25?Milligram?By Mouth?Daily nalOXONE (Narcan 4 mg/0.1 mL nasal spray)?See Instructions?If concern for opioid overdose. Gently insert the tip of the nozzle into one nostril, until your fingers on either side of the nozzle are against the bottom of the person's nose. Press the plunger firmly to give the dose of NARCAN Nasal [place]. Remove t... Pantoprazole (Protonix 40 mg oral delayed release tablet)?1?tab(s)?40?Milligram?By Mouth?Daily PredniSONE (predniSONE 5 mg oral tablet)?3?tab(s)?15?Milligram?By Mouth?Daily?for 30?Days?15 mg daily maintanence dose after the initial taper roflumilast (roflumilast 500 mcg oral tablet)?1?tab(s)?500?Microgram?By Mouth?Daily Sodium Chloride Nasal (sodium chloride 0.65% nasal spray)?1?spray(s)?Nares, Both?5 times a day?dryness Sodium Chloride Nasal ([place] Saline 0.65% nasal gel)?1?spray(s)?Nares, Both?4 times a day Sulfamethoxazole/Trimethoprim (sulfamethoxazole-trimethoprim 800 mg-160 mg oral tablet)?160?Milligram?By Mouth?2 times a day?for 30?Days?drink plenty of fluids; ??followup with Ortho and ID before this is completed, to discuss long-term plan. May need further weeks of antibiotics. Thiamine (Vitamin B1 100 mg oral tablet)?100?Milligram?1?tablet?By Mouth?Daily umeclidinium (Incruse Ellipta 62.5 mcg/inh inhalation powder)?1?puff(s)?Inhalation?Every 24 hours ? Quality Measures Tobacco Use Treatment:? Future Appointments Tuesday 9:00 AM EDT ?? With: Stevenson Plascencia DO Where: [facility] [address] [place] [id number]- Status: Pending Hospital Course ?67-year-old male with history of COPD with chronic hypoxic respiratory failure on 4L??NC,??LLE DVT, severe PVD s/p fem-pop bypass and left femoral endarterectomy, multiple LE stents, opiate use disorder, MRSA septic arthritis of right shoulder treated with Bactrim??who presented to the ED on 06/06 with fall and fracture of left humeral head and left 5th rib??but declined rehab. He changed his mind and returned to the hospital. ??complex case manager consult for discharge plan to rehab. patient refused to go to rehab, He wants to go home. ?? He was treated for: ? Chronic respiratory failure with hypoxia (J96.11) COPD on long-term oral steroid therapy (J44.9):? 4L O2 and steroid dependent. Continue routine nebulizers, home prednisone. No signs of acute exacerbation. ?? Fracture of rib of left side (S22.32XA) Left humeral fracture (S42.302A):? Seen by orthopedics, recommended YANELIS hooper status. Follow-up with orthopedics as an outpatient. For pain control:??he takes Dilaudid as needed. recently prescribed by previous provider, He already??has it at home ?? DVT (deep venous thrombosis) (I82.409):? Continue Eliquis. ?? Septic arthritis of shoulder, right (M00.9):? Dressing changes BID. Continue Bactrim. follow up with orthopedics as outpatient Follow-up with Prisca Gross. discussed with the patient regarding outpatient follow up whoagreed to follow up patients reports his son does the dressing change at home ?? Objective Assessment and Plan Discharge Planning:? Measurements?? Height: 183 cm (07/06/23) Weight: 54.9 kg (07/01/23) Dry Weight: 54.9 kg (07/01/23) Body Mass Index:??16.39 kg/m2??Low (07/01/23) ? Vital Signs?? Temperature: 98.4 DegF (07/06/23 19:34:00) Temperature Route: Oral (07/06/23 19:34:00) Pulse Rate:??93 bpm??High (07/06/23 19:34:00) Respiratory Rate: 19 br/min (07/07/23 06:06:00) Systolic Blood Pressure:??148 mm Hg??High (07/06/23 19:34:00) Diastolic Blood Pressure: 75 mm Hg (07/06/23 19:34:00) Blood pressure sites: Arm, left (07/06/23 19:34:00) Mean Arterial Pressure: 99 mm Hg (07/06/23 19:34:00) Pulse Pressure: 73 mm Hg (07/06/23 19:34:00) Oxygen Saturation: 96 % (07/06/23 19:34:00) Liters per Minute: 3 L/min (07/06/23 19:34:00) Mode of Delivery (Oxygen): Nasal cannula (07/06/23 19:34:00) Early Warning Score: 0 (07/07/23 07:26:11) ? . Physical Exam Constitutional: Alert, in no distress. Mental Status: Oriented to person, place and time. Head: Normocephalic. Respiratory: Clear to auscultation. No wheezing, rales or rhonchi. Cardiovascular: S1 S2 regular. No murmurs, rubs or gallops. Gastrointestinal: Abdomen soft, non-tender, non-distended. Normal bowel sounds. No Neurologic: Cranial nerves II-XII grossly intact. No focal neurological deficits. Psychiatric: Normal mood and affect Pending Results No Pending Results Follow-Up Appointments Added Follow Up ?Time Frame ?Comments Jose LEE MD, Jorge Tsang?1 week Alexis Mckeon MD?1 week?please call for appointment Post Discharge Care Discharge ?07/07/23 7:45:00 EDT Discharge Prescriptions ?Written, ??07/06/23 13:54:00 EDT Home Health Face to Face ^HomeHealthFTF Results Imaging(s) ?Chest 2 Views Frontal and Lat ?? 07/01/2023 04:39??by Jeannine Barry MD ? IMPRESSION: ?? No acute abnormality. ?Humerus Min 2 Views Left ?? 07/01/2023 04:39??by Jeannine Barry MD ? IMPRESSION: ?? Left humeral surgical neck comminuted fracture with probable more displacement from previous. WSN: [id number] ?Shoulder Min 2 Views Left ?? 07/01/2023 04:39??by Jeannine Barry MD ? IMPRESSION: ?? Left humeral surgical neck comminuted fracture with probable more displacement from previous. WSN: [id number] ? 35_ minutes spent on discharge * Daniela Levi RN: PERFORM Event Display: Patient Education/Instruction Authored Date: [id number] Inpatient Adult Discharge Instructions [address] [id number] Name: ANT VARMA : 1955 Visit: 06/30/2023 17:28:00 Current Date: 07/07/2023 08:40 Account: [id number] Inpatient Adult Discharge Instructions We would like [...] and their families. Surveys are administered by [employer] ?? If further treatment with your primary care physician or another doctor is recommended, it is important for you to keep the appointment. Call your primary care physician or return to the Emergency Department immediately if your condition worsens, fails to improve, or new symptoms develop. If you need to find a doctor, you can call [facility] for a referral at [phone] or toll free at [phone] [phone]) or log in to [email or web address] ?? You can view and manage your care through the patient portal or by using a health care lore of your choosing. [employer] is a website that allows you to securely view your medical information including your hospital discharge summary, office visit summaries, medications and follow-up visits. You can also request appointments, renew medications, and request access to your medical information using a health care lore of your choosing, or just ask a question. You can enroll at [email or web address] or register during your next office visit. You have been discharged from [facility], Patient Care Unit: S3. If you have any questions regarding these instructions after you leave, please call us and we will be happy to assist you. [facility] Your Care Team Attending Physician Mando Randhawa MD Discharging Providers Mando Randhawa MD Reason for Admission Patient coming from home with meena shoulder pain. Discharged from inpatient unit 2 hours ago. O2 dependent. Your Diagnosis Humeral fracture Left humeral fracture Fracture of rib of left side COPD on long-term oral steroid therapy Chronic respiratory failure with hypoxia DVT (deep venous thrombosis) Septic arthritis of shoulder, right Tests Performed Below is a partial list of the tests performed during your hospitalization. You may have had other tests and procedures not included in this list. Please discuss all test results with your provider. Basic Metabolic Panel BUN CBC CBC w/ Differential COVID-19 (2019 Novel Coronavirus) PCR Creatinine HOLD BLUE TUBE HOLD PHAM TUBE HOLD GREEN TUBE XR Chest 2 Views Frontal and Lat XR Humerus Min 2 Views Left XR Shoulder Min 2 Views Left Primary Care Provider Jorge Garcia III, MD Advance Directive Health Care Proxy on File Yes - Health Care Proxy Yes - MOLST Discharge Vitals Temperature: 98.4 DegF Height: 183 cm Pulse Rate: 85 bpm Weight: 54.9 kg Respiratory Rate: 18 br/min Body Mass Index:??16.39 kg/m2??Low Systolic Blood Pressure: 132 mm Hg Body surface area: 1.67 Diastolic Blood Pressure:??88 mm Hg??High ?? Oxygen Saturation: 96 % ?? Studies Pending All tests and labs ordered during this hospital stay have been completed unless listed below. Please discuss all pending results with your provider listed above in these instructions. ?? No incomplete studies found What to do next Instructions From Your Doctor Discharge Orders Scheduled Follow-Up Appointments Tuesday 9:00 AM EDT ?? With: Stevenson Plascencia DO Where: [facility] [place] [address]- Status: Pending You Need to Schedule the Following Appointments Follow Up with??Jorge Garcia III, MD When:??Within 1 week Where: [address] [place] [id number]- Follow Up with??Alexis Mckeon MD When:??Within 1 week Why: please call for appointment Where: [address] [place] [address], [address] [facility] [place] [address]- Discharge Medications ANT VARMA :1955 Visit Date:06/30/2023 Medications: Please continue your medications until treatment is completed or stopped by your provider. Medications not listed below should be discontinued. Discuss any questions related to medications with your provider. What How Much When Instructions Next Dose Changed Albuterol (albuterol 0.042% inhalation solution) 3 Milliliter Nebulized inhalation Every 4 hours as prescribed Changed Hydromorphone (HYDROmorphone 4 mg oral tablet) 4 Milligram Oral 4 times a day as needed for Pain , Severe Duration: 3 Days 8/?? 10AM if needed Unchanged Acetaminophen (acetaminophen 325 mg oral tablet) 2 tab(s) Oral Every 4 hours as needed for as needed for fever as prescribed Unchanged apixaban (Eliquis 5 mg oral tablet) 1 tab(s) Oral Twice a day Duration: 30 Days 07/07?? PM Unchanged Atorvastatin (atorvastatin 80 mg oral tablet) 1 tab(s) Oral Daily 07/07?? PM Unchanged Collagenase Topical (collagenase topical 250 u/ gm ointment) See instructions Use over right shoulder wound daily ?? 07/08?? AM Unchanged Dicyclomine (dicyclomine 10 mg oral capsule) 1 capsule Oral 4 times a day 07/07 1 PM Unchanged Duloxetine (duloxetine 60 mg oral enteric coated capsule) 1 capsule Oral Twice a day 07/07?? PM Unchanged Ferrous Sulfate (ferrous sulfate 325 mg oral enteric coated tablet) 1 tab(s) Oral Daily 07/08?? AM Unchanged Gabapentin (gabapentin 300 mg oral capsule) 2 capsule Oral 3 times a day 07/07?? 3 PM Unchanged Guaifenesin/ Dextromethorphan (Robitussin DM Liquid) 5 Milliliter Oral Every 6 hours as needed for Cough as prescribed Unchanged HydrOXYzine (hydrOXYzine hydrochloride 10 mg oral tablet) 1 tab(s) Oral 3 times a day as needed for Anxiety as prescribed Unchanged Isosorbide Dinitrate (isosorbide dinitrate 30 mg oral tablet) 1 tab(s) Oral Twice a day 07/07?? PM Unchanged Lidocaine Topical (lidocaine 4% patch) 07/08?? AM Unchanged Loperamide (loperamide 2 mg oral capsule) 1 capsule Oral Every 6 hours as needed for for loose stool as prescribed Unchanged Melatonin 10 Milligram Oral Daily at Bedtime as needed for as needed for sleep as prescribed Unchanged Metoprolol (Metoprolol Succinate ER 25 mg oral tablet, extended release) 1 tab(s) Oral Daily 07/08?? AM Unchanged nalOXONE (Narcan 4 mg/ 0.1 mL nasal spray) See instructions If concern for opioid overdose. Gently insert the tip of the nozzle into one nostril, until your fingers on either side of the nozzle are against the bottom of the person's nose. Press the plunger firmly to give the dose of NARCAN Nasal [place]. Remove the NARCAN Nasal [place] from the nostril after giving the dose. Get emergency medical help right away. ?? as prescribed Unchanged Pantoprazole (Protonix 40 mg oral delayed release tablet) 1 tab(s) Oral Daily 07/08?? AM Unchanged PredniSONE (predniSONE 5 mg oral tablet) 3 tab(s) Oral Daily Duration: 30 Days 15 mg daily maintanence dose after the initial taper ?? 07/08?? AM Unchanged roflumilast (roflumilast 500 mcg oral tablet) 1 tab(s) Oral Daily 07/08?? AM Unchanged Sodium Chloride Nasal ([place] Saline 0.65% nasal gel) 1 spray(s) Nares, Both 4 times a day as prescribed Unchanged Sodium Chloride Nasal (sodium chloride 0.65% nasal spray) 1 spray(s) Nares, Both 5 times a day dryness ?? as prescribed Unchanged Sulfamethoxazole/ Trimethoprim (sulfamethoxazole-trimethoprim 800 mg- 160 mg oral tablet) 160 Milligram Oral Twice a day Duration: 30 Days drink plenty of fluids; ??followup with Ortho and ID before this is completed, to discuss long-termplan. May need further weeks of antibiotics. ?? Pickup at [facility]/pharmacy #[id number] 07/07?? PM Unchanged Thiamine (Vitamin B1 100 mg oral tablet) 1 tab(s) Oral Daily 07/08?? AM Unchanged umeclidinium (Incruse Ellipta 62.5 mcg/ inh inhalation powder) 1 puff(s) Inhalation Every 24 hours as prescribed Pharmacy Information [facility]/pharmacy #[id number]: [address] [place] [address] [id number] [phone] ?? What How Much When Comments Stop Taking Budesonide-Formoterol (Symbicort 160mcg/ 4.5mcg Inhaler) 2 puff(s) Inhalation Twice a day Test Results Below is a partial list of the most recent Laboratory test results done prior to this discharge. You may have had other tests and procedures not included in this list. Please discuss all test resultswith your provider. Est Creatinine Clearance - 71.48 mL/min (07/03/2023) Basic Metabolic Panel (07/03/2023) ???Sodium - 137 mmol/L???Potassium - 4.3 mmol/L???Chloride - 96 mmol/L???Bicarbonate Level - 30 mmol/L???Anion Gap - 11???Glucose Level - 91 mg/dL???BUN - 20 mg/dL???Creatinine-Blood - 0.8 mg/dL???Estimated GFR Creatinine - 98 ML/MIN/1.73 M2???Calcium - 8.3 mg/dL BUN (07/02/2023) ???BUN - 28 mg/dL CBC (07/02/2023) ???WBC - 12.3 k/mm3???RBC - 3.02 m/mm3???Hgb - 8.3 Gm/dL???Hct - 26.6 %???MCV - 88.1 femtoliters???MCH - 27.5 pg???MCHC - 31.2 g/dL???Platelet Count - 522 k/mm3???RDW-SD - 53.6 femtoliters???MPV - 9.0 femtoliters???Nucleated RBC (Automated) - 0.0 #/100 WBC'S???Abs. NRBC - 0.0 k/mm3 CBC w/ Differential (07/03/2023) ???WBC - 11.2 k/mm3???RBC - 2.79 m/mm3???Hgb - 7.8 Gm/dL???Hct - 25.6 %???MCV - 91.8 femtoliters???MCH - 28.0 pg???MCHC - 30.5 g/dL???Platelet Count - 463 k/mm3???RDW-SD - 54.5 femtoliters???MPV - 9.4 femtoliters???Nucleated RBC (Automated) - 0.0 #/100 WBC'S???Abs. NRBC - 0.0 k/mm3???Abs. Neut - 9.7 k/mm3???Abs. Lymph - 0.6 k/mm3???Abs. [place] - 0.2 k/mm3???Abs. Eo - 0.0 k/mm3???Abs. Baso - 0.0 k/mm3???Neut % - 85.3 %???Lymph % - 5.2 %???[place] % - 1.7 %???Eos % - 0.0 %???Baso % - 0.0 %???Myelocytes % - 5.2 %???Metamyelocyte % - 1.7 %???Band % - 0.9 %???RBC Morphology - FEW???Platelet Estimate - INCREASED COVID-19 (2019 Novel Coronavirus) PCR (07/01/2023) ???COVID-19 PCR Specimen Source - NASAL???COVID-19 PCR Result - NEGATIVE Creatinine (07/02/2023) ???Creatinine-Blood - 0.7 mg/dL???Estimated GFR Creatinine - 102 ML/MIN/1.73 M2 HOLD BLUE TUBE (07/01/2023) ???Hold Blue Top - SPECIMEN DISCARDED AFTER 4 HOURS. HOLD PHAM TUBE (07/01/2023) ???Hold Pham Top - SPECIMEN DISCARDED AFTER 1 WEEK HOLD GREEN TUBE (07/01/2023) ???Hold Green Top - SPECIMEN DISCARDED AFTER 1 WEEK Allergies (NKA means No Known Allergies) Toradol??(Morphine allergy, Metaxalone, Naproxen, Cephalexin allergy, hives) Keflex??(rash) Skelaxin??(H/O: migraine) naproxen??(lesions on lips) Problems Active Problems??(27) Anemia?? Anxiety?? CAD?? CAD - Coronary artery disease?? cardiac stents?? Chronic low back pain?? chronic pack pain?? COPD (chronic obstructive pulmonary disease)?? COPD (chronic obstructive pulmonary disease)?? COPD exacerbation?? Deep vein thrombosis (DVT) of left lower extremity?? Drug use disorder, opiate and benzo dependency, narcotic contract?? Epistaxis?? GERD (gastroesophageal reflux disease)?? History of Alcohol dependency?? HTN (hypertension)?? Hyperlipidemia?? Hyponatremia?? Metabolic alkalosis?? Multiple fractures of ribs?? Old [place] (myocardial infarction) X 3?? old Rib fractures, right 3-8?? Pulmonary cachexia due to COPD?? PVD (peripheral vascular disease)?? Smoking greater than 40 pack years?? Tobacco dependence?? Underweight?? Education Materials Below is the list of Educational Leaflet Providered with your Discharge Instructions. Shoulder Fracture?? Valuables and Belongings I fully understand and agree that [facility] accepts no responsibility for all [...] witness Date for Pt to Sign Valuables/Belongings: 07/07/23 07:49:00 ?? Other Discharge Information ?? Wound Assessment?? Wound Assessment?? Wound Location I: Shoulder, right Wound Type I: Surgical Wound I, Present on Admission: Yes ?? Case Management Discharge Plan?? Discharge Plan?? Discharge Level of Care at Discharge: Home/Nursing Home/Foster Care Discharge Transportation Arranged: [facility] [address] [facility] [id number] [phone] Mode of Transportation Arranged: Ambulance Discharge Arranged Transport Date/Time: 07/07/23 09:00:00 ?? Pulmonary Rehab Status?? Pulmonary Rehab Discharge Status?? Respiratory Rate: 18 br/min ? Common Emergency Awareness Tips IS IT [...] are strongly encouraged to quit. Please call [facility] at [phone] or [phone]) or log in to [email or web address] for referrals to smoking cessation programs. ?? 907 Suicide & Crisis Lifeline is available 20/06 if you or someone you know needs to find a reason to keep living. By calling 282 you'll be connected to a skilled, trained counselor at a crisis center in your area. INPATIENT DISCHARGE INSTRUCTIONS SIGNATURE PAGE ANT VARMA Location:[facility] Registration Date and Time:06/30/2023 17:28 EDT Primary Care Physician: Jose LEE MD, Jorge Tsang, Attending Physician: Sydnee AMAYA, Mando, I ANT VARMA, have received the above patient education materials/instructions and have verbalized understanding. If ambulance or transport services are being used I further acknowledge being given a choice of service. ?? If you need to contact me, please call me at this number: . Patient/Acquisitions Analyst Name: Patient/Acquisitions Analyst Signature: Relationship to Patient: Witness Name/Signature: Date: * Daniela Levi RN: PERFORM Event Display: Patient Education Leaflets Authored Date: [id number] Shoulder Fracture ?? [id number] Shoulder Fracture You have a break (fracture) of the shoulder. Shoulder fractures can involve the clavicle, the upperpart of the arm bone (proximal humerus), and the scapula. This may be a small crack in the bone. Sonia may be a major break with the broken parts pushed out of position. If you have only a small crack in the bone and no bone fragments are out of place, you will probably be treated with a shoulder immobilizer or sling. Casts are usually not used for this type of fracture. Your bone should heal in 6 to 10 weeks. More serious injuries may need surgery to put the bonesback into the correct position for healing. Home care Follow these tips to care for yourself at home: ??? Leave the shoulder immobilizer in place. This will support the injured arm at your side. This is the best position for the bone to heal. ??? The shoulder immobilizer or sling is adjustable. If it becomes loose, adjust it so that your forearm is level with the ground (horizontal). Your hand should be level with your elbow. ??? Apply an ice pack to the injured area for 20 minutes every 1 to 2 hours the first day. You can make an ice pack by putting ice cubes in a plastic bag. A bag of frozen peas or something similar works well, too. Wrap the bag in a thin towel before putting it on your shoulder. Continue with ice packs 3 to 4 times a day for the next 2 to 3 days. Then use the ice as needed to relieve pain and swelling. ??? You may take acetaminophen or ibuprofen to relieve pain, unless another pain medicine was prescribed. Talk with your healthcare provider before using these medicines if you have chronic liver or kidney disease or ever had a stomach ulcer or digestive bleeding. ??? Don???t take the sling off before your next exam unless you were told to do so. Ask if you should move your elbow, wrist, and hand. ?? Follow-up care Follow up with your provider as advised. A shoulder joint will become stiff if left in a sling for too long. Ask your provider when it is safe to start [id number] exercises. ?? When to seek medical advice Call your healthcare provider right away if any of these occur: ??? Your fingers become swollen, cold, blue, numb, or tingly ??? Your shoulder or upper arm swells a lot or looks very bruised ??? The pain in your shoulder gets worse ??? The splint or immobilizer breaks ??? You have a fever of 100.4??F (38??C), or as directed by your provider ??? Chills ?? Last Reviewed Date: 2022 ?? [employer]. All rights reserved. This information is not intended as a substitute for professional medical care. Always follow your healthcare professional's instructions. ?? * Mando Randhawa MD: PERFORM Event Display: Discharge/Transfer Note Hospital Authored Date: [id number] Patient: ??ANT VARMA ? Age:??67 Years?Sex:??Male?:??1955?? Patient Information Discharge Location: A Primary Care Physician: Not on Staff, PCP Admit Date/Time: 06/30/23 17:28 Discharge Disposition Discharge Disposition: Jail Facility/Rehab Discharge Diagnosis COPD on long-term oral steroid therapy (J44.9) Chronic respiratory failure with hypoxia (J96.11) DVT (deep venous thrombosis) (I82.409) Fracture of rib of left side (S22.32XA) Humeral fracture (S42.309A) Left humeral fracture (S42.302A) Septic arthritis of shoulder, right (M00.9) Anxiety CAD - Coronary artery disease COPD (chronic obstructive pulmonary disease) Chronic low back pain Deep vein thrombosis (DVT) of left lower extremity GERD (gastroesophageal reflux disease) HTN (hypertension) History of Alcohol dependency Hyperlipidemia PVD (peripheral vascular disease) Smoking greater than 40 pack years ?? _ Discharge Medications Acetaminophen (acetaminophen 325 mg oral tablet)?650?Milligram?2?tablet?By Mouth?Every 4 hours?as needed?as needed for fever Albuterol (albuterol 0.042% inhalation solution)?3?Milliliter?1.25?Milligram?Neb?Every 4 hours apixaban (Eliquis 5 mg oral tablet)?1?tab(s)?5?Milligram?By Mouth?2 times a day?for 30?Days Atorvastatin (atorvastatin 80 mg oral tablet)?1?tab(s)?80?Milligram?By Mouth?Daily Collagenase Topical (collagenase topical 250 u/gm ointment)?See Instructions?Use over right shoulder wound daily Dicyclomine (dicyclomine 10 mg oral capsule)?1?capsule?10?Milligram?By Mouth?4 times a day Duloxetine (duloxetine 60 mg oral enteric coated capsule)?1?capsule?60?Milligram?By Mouth?2 times a day Ferrous Sulfate (ferrous sulfate 325 mg oral enteric coated tablet)?325?Milligram?1?tablet?By Mouth?Daily Gabapentin (gabapentin 300 mg oral capsule)?600?Milligram?2?capsule?By Mouth?3 times a day Guaifenesin/Dextromethorphan (Robitussin DM Liquid)?5?Milliliter?By Mouth?Every 6 hours?as needed?Cough Hydromorphone (HYDROmorphone 4 mg oral tablet)?4?Milligram?By Mouth?4 times a day?asneeded?Pain , Severe?for 7?Days HydrOXYzine (hydrOXYzine hydrochloride 10 mg oral tablet)?1?tab(s)?10?Milligram?By Mouth?3 times a day?as needed?Anxiety Isosorbide Dinitrate (isosorbide dinitrate 30 mg oral tablet)?1?tab(s)?30?Milligram?By Mouth?2 times a day Loperamide (loperamide 2 mg oral capsule)?2?Milligram?1?capsule?By Mouth?Every 6 hours?as needed?for loose stool Melatonin?10?Milligram?By Mouth?Daily at bedtime?as needed?as needed for sleep Metoprolol (Metoprolol Succinate ER 25 mg oral tablet, extended release)?1?tab(s)?25?Milligram?By Mouth?Daily nalOXONE (Narcan 4 mg/0.1 mL nasal spray)?See Instructions?If concern for opioid overdose. Gently insert the tip of the nozzle into one nostril, until your fingers on either side of the nozzle are against the bottom of the person's nose. Press the plunger firmly to give the dose of NARCAN Nasal [place]. Remove t... Pantoprazole (Protonix 40 mg oral delayed release tablet)?1?tab(s)?40?Milligram?By Mouth?Daily PredniSONE (predniSONE 5 mg oral tablet)?3?tab(s)?15?Milligram?By Mouth?Daily?for 30?Days?15 mg daily maintanence dose after the initial taper roflumilast (roflumilast 500 mcg oral tablet)?1?tab(s)?500?Microgram?By Mouth?Daily Sodium Chloride Nasal (sodium chloride 0.65% nasal spray)?1?spray(s)?Nares, Both?5 times a day?dryness Sodium Chloride Nasal ([place] Saline 0.65% nasal gel)?1?spray(s)?Nares, Both?4 times a day Sulfamethoxazole/Trimethoprim (sulfamethoxazole-trimethoprim 800 mg-160 mg oral tablet)?160?Milligram?By Mouth?2 times a day?for 30?Days?drink plenty of fluids; ??followup with Ortho and ID before this is completed, to discuss long-term plan. May need further weeks of antibiotics. Thiamine (Vitamin B1 100 mg oral tablet)?100?Milligram?1?tablet?By Mouth?Daily umeclidinium (Incruse Ellipta 62.5 mcg/inh inhalation powder)?1?puff(s)?Inhalation?Every 24 hours ? Quality Measures Tobacco Use Treatment:? Future Appointments Tuesday 9:00 AM EDT ?? With: Stevenson Plascencia DO Where: [facility] [address] [place] [address]- Status: Pending Hospital Course ??67-year-old male with history of COPD with chronic hypoxic respiratory failure on 4L??NC,??LLE DVT, severe PVD s/p fem-pop bypass and left femoral endarterectomy, multiple LE stents, opiate use disorder, MRSA septic arthritis of right shoulder treated with Bactrim??who presented to the ED on 06/06with fall and fracture of left humeral head and left 5th rib??but declined rehab. He changed his mind and returned to the hospital. ??complex case manager consult for discharge plan to rehab. ?? He was treated for: ? Chronic respiratory failure with hypoxia (J96.11) COPD on long-term oral steroid therapy (J44.9):? 4L O2 and steroid dependent. Continue routine nebulizers, home prednisone. No signs of acute exacerbation. ?? Fracture of rib of left side (S22.32XA) Left humeral fracture (S42.302A):? Seen by orthopedics, recommended sling, NWB status. Follow-up with orthopedics as an outpatient. For pain control:??Dilaudid as needed ?? DVT (deep venous thrombosis) (I82.409):? Continue Eliquis. ?? Septic arthritis of shoulder, right (M00.9):? Dressing changes BID. Continue Bactrim. ?? Follow-up with [facility] ID Dr. Gross Objective Assessment and Plan Discharge Planning:? Measurements?? Height: 183 cm (07/06/23) Weight: 54.9 kg (07/01/23) Dry Weight: 54.9 kg (07/01/23) Body Mass Index:??16.39 kg/m2??Low (07/01/23) ? Vital Signs?? Temperature: 98.7 DegF (07/06/23 08:11:00) Temperature Route: Oral (07/06/23 08:11:00) Pulse Rate: 84 bpm (07/06/23 08:53:00) Respiratory Rate: 19 br/min (07/06/23 10:05:00) Systolic Blood Pressure:??145 mm Hg??High (07/06/23 08:53:00) Diastolic Blood Pressure: 74 mm Hg (07/06/23 08:53:00) Blood pressure sites: Arm, left (07/06/23 08:11:00) Mean Arterial Pressure: 98 mm Hg (07/06/23 08:11:00) Pulse Pressure: 71 mm Hg (07/06/23 08:11:00) Oxygen Saturation: 100 % (07/06/23 08:11:00) Liters per Minute: 2 L/min (07/06/23 08:11:00) Mode of Delivery (Oxygen): Nasal cannula (07/06/23 08:11:00) Early Warning Score: 0 (07/06/23 11:46:31) ? . Physical Exam Constitutional: Alert, in no distress. Mental Status: Oriented to person, place and time. Head: Normocephalic. Respiratory: Clear to auscultation. No wheezing, rales or rhonchi. Cardiovascular: S1 S2 regular. No murmurs, rubs or gallops. Gastrointestinal: Abdomen soft, non-tender, non-distended. Normal bowel sounds. No Neurologic: Cranial nerves II-XII grossly intact. No focal neurological deficits. Psychiatric: Normal mood and affect Pending Results No Pending Results Follow-Up Appointments Added Follow Up ?Time Frame ?Comments Alexis Mckeon MD?1 week?please call for appointment Post Discharge Care Discharge ?07/06/23 13:54:00 EDT Discharge Prescriptions ?Written, ??07/06/23 13:54:00 EDT Home Health Face to Face ^HomeHealthFTF Results Imaging(s) ?Chest 2 Views Frontal and Lat ?? 07/01/2023 04:39??by Jeannine Barry MD ? IMPRESSION: ?? No acute abnormality. ?Humerus Min 2 Views Left ?? 07/01/2023 04:39??by Jeannine Barry MD ? IMPRESSION: ?? Left humeral surgical neck comminuted fracture with probable more displacement from previous. WSN: [id number] ?Shoulder Min 2 Views Left ?? 07/01/2023 04:39??by Jeannine Barry MD ? IMPRESSION: ?? Left humeral surgical neck comminuted fracture with probable more displacement from previous. WSN: [id number] ? 35_ minutes spent on discharge * Mando Randhawa MD: PERFORM Event Display: Discharge/Transfer Note Hospital Authored Date: [id number] updates from CM: refused to go to rehab, going home tomorrow at 9 am discharge cancelled, can use this note as a progress note for today. Patient Care team information Care Team Personnel Name: Glo Camarena RN Position: [facility] RN Member Role: Primary Care Nurse Name: Fatimah Bennett RN Position: [facility] RN Member Role: Primary Care Nurse Name: Mariely Hardy RN Position: [facility] RN Member Role: Primary Care Nurse Name: Marleen Uriarte RN Position: [facility] RN Member Role: Primary Care Nurse Name: Sydney Zelaya Position: [facility] SN Support Member Role: Lifetime Consulting Physician Name: Judd Barahona RN Position: [facility] RN Member Role: Primary Care Nurse Name: Tayler Blackwell RN Position: [facility] RN Supv Member Role: Primary Care Nurse Name: Mag Harry RN Position: [facility] RN Member Role: Primary Care Nurse Name: An Blount RN Position: [facility] RN Supv Member Role: Primary Care Nurse Name: Guru Whitley RN Position: [facility] RN Member Role: Primary Care Nurse Name: Rebecca Whitley RN Position: [facility] RN Member Role: Primary Care Nurse Name: Marianna Ng RN Position: [facility] RN Member Role: Primary Care Nurse Name: Avani Odell RN Position: [facility] RN Member Role: Primary Care Nurse Name: Lisbet Hickman RN Position: [facility] RN Member Role: Primary Care Nurse Name: Rbuen Bello RN Position: [facility] RN Member Role: Primary Care Nurse Name: Araceli Simon RN Position: [facility] RN Member Role: Primary Care Nurse Name: Judi Streeter RN Position: [facility] RN Member Role: Primary Care Nurse Name: Moni Dugan RN Position: [facility] RN Member Role: Primary Care Nurse Name: Jorge Garcia III, MD Position: Reference Physician Member Role: PCP Address: Address: [address] [place] [id number]- [place] Name: Misty Nguyen RN Position: [facility] RN Member Role: Primary Care Nurse Name: Hetal Archer LPN Position: [facility] RN Member Role: Primary Care Nurse Name: Joyce Cobb Position: [facility] RN Member Role: Primary Care Nurse Name: Sarwat Aj RN Position: [facility] RN Member Role: Primary Care Nurse Name: César Patel RN Position: [facility] RN Member Role: Primary Care Nurse Name: Cassi Batista RN Position: [facility] RN Member Role: Primary Care Nurse Name: Daija Huitron RN Position: [facility] RN Member Role: Primary Care Nurse Name: Ellis Mayfield RN Position: [facility] RN Supv Member Role: Primary Care Nurse Name: Ayah Robison RN Position: [facility] RN Member Role: Primary Care Nurse Name: Radha Moreno RN Position: [facility] RN Member Role: Primary Care Nurse Name: Jina Smalls RN Position: [facility] RN Member Role: Primary Care Nurse Name: Laura Clements RN Position: [facility] RN Member Role: Primary Care Nurse Name: Colette Syed RN Position: [facility] RN Member Role: Primary Care Nurse Name: Muriel Daley RN Position: [facility] RN Supv Member Role: Primary Care Nurse Name: Judith Rojas LPN Position: [facility] RN Member Role: Primary Care Nurse Name: Sydney Raza RN Position: [facility] RN Member Role: Primary Care Nurse Name: Rachna Renteria RN Position: [facility] RN Member Role: Primary Care Nurse Name: Zohreh Pink RN Position: [facility] RN Member Role: Primary Care Nurse Name: Sophie Berrios RN Position: [facility] RN Member Role: Primary Care Nurse Name: Grisel Mcgowan RN Position: [facility] RN Member Role: Primary Care Nurse Name: Uyen Mitchell RN Position: [facility] RN Member Role: Primary Care Nurse Name: Nasra Smith NP Position: Reference Physician Member Role: Primary Care Nurse Address: Address: [address] [place] [address]- Name: Silas Knox RN Position: [facility] RN Member Role: Primary Care Nurse Name: Elham Lee RN Position: [facility] AMB Nurse Member Role: Primary Care Nurse Name: Dariana Mariee RN Position: [facility] RN Member Role: Primary Care Nurse Name: Ana María Cat RN Position: [facility] RN Member Role: Primary Care Nurse Name: Janet Pacheco RN Position: [facility] RN Member Role: Primary Care Nurse Name: Flor Holley Position: [facility] RN Member Role: Primary Care Nurse Name: Bret Aguirre RN Position: [facility] RN Member Role: Primary Care Nurse Name: Audra Martinez RN Position: [facility] RN Member Role: Primary Care Nurse Name: Shahbaz Bobo RN Position: [facility] RN Member Role: Primary Care Nurse Name: Jimi Coley RN Position: [facility] RN Member Role: Primary Care Nurse Name: Jennifer Yin LPN Position: [facility] RN Member Role: Primary Care Nurse Name: Alina Arce RN Position: [facility] RN Member Role: Primary Care Nurse Name: Judi Krueger RN Position: [facility] RN Member Role: Primary Care Nurse Name: Magdi Patiño RN Position: [facility] RN Member Role: Primary Care Nurse Name: Kasia Lund RN Position: [facility] RN Member Role: Primary Care Nurse Name: Rachna Serrano RN Position: [facility] RN Member Role: Primary Care Nurse Name: Naveen Villalobos RN Position: [facility] RN Member Role: Primary Care Nurse Name: Radha Masterson RN Position: [facility] RN Member Role: Primary Care Nurse Name: Landy Villarreal RN Position: [facility] RN Member Role: Primary Care Nurse Name: Adria Bell RN Position: [facility] RN Member Role: Primary Care Nurse Name: Amy Larios RN Position: [facility] RN Member Role: Primary Care Nurse Name: Indira Lindsey RN Position: [facility] SN RN Member Role: Primary Care Nurse Name: Rosa Elena Pope RN Position: [facility] RN Member Role: Primary Care Nurse Name: Florentino Garcia RN Position: [facility] RN Member Role: Primary Care Nurse Name: Cristel Moreno RN Position: [facility] SN RN Member Role: Primary Care Nurse Name: Rosa Elena De León RN Position: [facility] Hospital Board Member Member Role: Primary Care Nurse Name: Nell Lagos RN Position: [facility] RN Member Role: Primary Care Nurse Name: Rita Rodriguez RN Position: [facility] RN Member Role: Primary Care Nurse Name: Judi Hamilton RN Position: [facility] RN Member Role: Primary Care Nurse Name: Tulio Pina RN Position: [facility] RN Member Role: Primary Care Nurse Name: Narda Barnes RN Position: [facility] RN Member Role: Primary Care Nurse Name: Zoë Cisse RN Position: [facility] RN Member Role: Primary Care Nurse Name: Pat Bowers RN Position: [facility] SN RN Member Role: Primary Care Nurse Name: Gemma Chavira RN Position: [facility] RN Member Role: Primary Care Nurse Name: Ruy Salcido RN Position: [facility] RN Member Role: Primary Care Nurse Name: Hilaria Aparicio RN Position: [facility] RN Member Role: Primary Care Nurse Name: Carly Rosado RN Position: [facility] RN Supv Member Role: Primary Care Nurse Name: Taryn Rosado RN Position: [facility] RN Member Role: Primary Care Nurse Name: Sydney Rosado RN Position: [facility] RN Member Role: Primary Care Nurse Name: Vidhi Wilkins RN Position: [facility] RN Member Role: Primary Care Nurse Name: Uriel Dumont Position: [facility] RN Member Role: Primary Care Nurse Name: Selene Vazquez RN Position: [facility] RN Member Role: Primary Care Nurse Name: César Gerber RN Position: [facility] RN Member Role: Primary Care Nurse Name: Dariana Becerra RN Position: [facility] RN Member Role: Primary Care Nurse Name: Leyla Verma LPN Position: [facility] RN Member Role: Primary Care Nurse Name: Rody Mays RN Position: [facility] RN Member Role: Primary Care Nurse Name: Marielos Mixon RN Position: [facility] RN Member Role: Primary Care Nurse Name: Radha Flores RN Position: [facility] RN Member Role: Primary Care Nurse Name: Hipolito Giles RN Position: [facility] RN Member Role: Primary Care Nurse Name: Rose Kyle RN Position: [facility] Hospital Board Member Member Role: Primary Care Nurse Name: Nida Gonsalves Position: [facility] RN Member Role: Primary Care Nurse Name: Aimee Salamanca RN Position: [facility] RN Member Role: Primary Care Nurse Name: Jacobo Caceres Position: [facility] RN Member Role: Primary Care Nurse Name: *Kelli, ED Attending Position: [facility] ED Attendings Patient Name: *REYMUNDO Inpt Attending Position: [facility] ED Medicine MD Name: Alexandra Dugan Position: [facility] ED TA [facility] Name: Kaur Singh Position: [facility] ED OA Charge Member Role: ED Associate Name: Jina Roberts RN Position: [facility] ED RN W/OE and Tasks Member Role: Patient Care Provider Care Team Related Persons Name: NORIS STEVENSON Address: home [address] [address] Name: MELINA VARMA Address: [facility] Name: GARRY VARMA Address: home [address] [address]
--- OUTSIDE RECORDS SUMMARY | 2023-08-15 20:24 | XMS_ITS | Continuity of Care Document ---
Author Name Unknown Organization [facility] Address [address] [place] [address]- Care Team Providers Care Machine Binding Folder Name Role Phone Jorge Garcia III, MD Primary Care Physician Encounter [facility] [place] Date(s): 06/11/20 - 07/11/20 [facility] [address] [place] [address] [place] [id number]- [facility] Allergies, Adverse Reactions, Alerts Substance [...] VIS GIVEN NO EGG ALLERGY Medications albuterol CFC free 90 mcg/inh inhalation aerosol 2, puffs, Inhalation, Every 6 hours, PRN, # 1 each, Refills 4, Tot. Refills 4, Maintenance, 12/26/19 10:39:00 EST, Aerosol, Route to Pharmacy Electronically, [id number], [facility]/pharmacy #[id number], 182, cm, 12/26/19 9:43:00 EST, [place]... [...] Status: Ordered predniSONE 10 mg oral tablet 2 tablet = 20 mg, By Mouth, Daily, for 30 days, # 60 tablet, 0 Refills, Acute 07/12/20 13:57:00 EDT, 06/12/20 13:57:00 EDT, [facility]/pharmacy #[id number], 182, cm, 05/26/20 16:01:00 EDT, Height, 56.4, kg, 07/11/19 18:58:00 EDT, Dry Weight Start Date: 06/12/20 Stop Date: 07/12/20 Status: Ordered predniSONE 5 mg oral tablet 1 tablet = 5 mg, By Mouth, Daily, 4 tabs daily reduce by 1 tab every 3 days (or if wheezing resolved, every 2 days), # 30 tablet, 2 Refills, Acute 11/08/20 13:57:00 EST, 05/15/20 13:55:00 EDT, [facility]/pharmacy #[id number], 182, cm, 05/15/20 13:20:00 EDT, Height... [...] 6, 03/31/07 11:15:26, Print MARTIN Number, [facility], [address] [place] [address], [id number], Constant Indicator Start Date: 03/31/07 Stop Date: [...] Multiple fractures of ribs(Confirmed) 01/06/11 Active [place] (myocardial infarctio n) X 3(Confirmed) Active PVD (peripheral vascular disease)(Confirmed) Active 1Cardiac stents 1991, 1995 Social History Social History Type Response Tobacco Use: Former smoker.. Sex Male
--- OUTSIDE RECORDS SUMMARY | 2023-08-15 20:24 | XMS_ITS | Continuity of Care Document ---
Author Name Unknown Organization [facility] ter Address [address] [place] [address]- Care Team Providers Care Headline Writer Name Role Phone Jose LEE MD, Jorge Tsang Primary Care Physician [phone] [place] [facility] [place] 03/27/[address] [address] Discharge Disposition: A-D/C Home Attending Physician: Carin AMAYA, Jair Admitting Physician: Ludwin Suh MD Referring Physician: Not on Staff, Referring [...] 2 tablet = 1,000 mg, By Mouth, Every 6 hours, PRN as needed for fever, # 50 tablet, 0 Refills, Maintenance, 03/12/22 12:11:00 EDT, Tablet, [facility]/pharmacy #[id number], Partial fill upon patient request if theprescription is for a schedule II opioid drug., 182... Start Date: 03/12/22 Stop Date: 03/26/22 Status: Ordered albuterol 0.083% inhalation solution 3 mL = 2.5 mg, Neb, Every 4 hours, PRN Wheezing/Shortness of Breath, j44.9, # 540 mL, 6 Refills, Maintenance, 07/24/20 16:44:00 EDT, [facility]/pharmacy #[id number], 182, cm, 05/26/20 16:01:00 EDT, Height, 67, kg, 07/05/20 13:57:00 EDT, Dry Weight Start Date: 07/24/20 Status: Ordered albuterol CFC free 90 mcg/inh inhalation aerosol 2, puffs, Inhalation, Every 6 hours, PRN, j44.9, # 1 each, Refills 6, Tot. Refills 6, Maintenance, 07/24/20 16:44:00 EDT, Aerosol, Route to Pharmacy Electronically, [id number], [facility]/pharmacy #[id number], 182, cm, 05/26/20 16:01:00 [...] mg, By Mouth, Every 8 hours, PRN Pain , Moderate, for 3 days, # 9 tablet, 0 Refills, Acute 03/30/22 10:31:00 EDT, 03/27/22 10:31:00 EDT, Tablet, [facility]/pharmacy #[id number], Partial fill upon patient request if the prescription is for a schedule I... Start Date: 03/27/22 Stop Date: 03/30/22 Status: Ordered Dilaudid Inj 1 mg, Injection, IV Push Slowly, Once, before dc, Routine, 03/27/22 10:00:00 EDT, Stop date 03/27/22 10:00:00 EDT Start Date: 03/27/22 Stop Date: 03/27/22 Status: Completed duloxetine 60 mg oral enteric [...] each,6 Refills, Maintenance, 03/21/22 9:48:00 EDT, Powder, [facility]/pharmacy #[id number], 182, cm, 03/12/22 4:49:00EDT, [...] oral tablet 2.5 mg, Tablet, By Mouth, 03/27/22 9:00:00 EDT Start Date: 03/27/22 Stop Date: 03/27/22 Status: Completed loperamide 2 mg oral capsule [...] opioid drug. Start Date: 03/25/22 Status: Ordered Neurontin 400 mg oral capsule 400 mg, Capsule, By Mouth, 03/27/22 9:00:00 EDT Start Date: 03/27/22 Stop Date: 03/27/22 Status: Completed Neurontin 600 mg oral tablet By Mouth, 3 times a day, 0 Refills, Maintenance, 03/27/22 10:30:00 EDT, Tablet, Partial fill upon patient request if the prescription is for a schedule II opioid drug. Start Date: 03/27/22 Status: Ordered pantoprazole 40 mg oral delayed [...] 6, 03/31/07 11:15:26, Print MARTIN Number, [facility], [address] [place] [address], [id number], Constant Indicator Start Date: 03/31/07 Stop Date: 10/27/07 Status: Ordered Toprol XL 25 mg oral tablet, extended release 25 mg, XL Tablet, By Mouth, Hold for: sbp<100, HR<60, 03/27/22 9:00:00 EDT Start Date: 03/27/22 Stop Date: 03/27/22 Status: Completed Vitamin B1 100 mg oral [...] Multiple fractures of ribs(Confirmed) 01/06/11 Active [place] (myocardial infarctio n) X 3(Confirmed) Active PVD (peripheral vascular disease)(Confirmed) Active Underweight(Confirmed) Active 1Cardiac stents 1991, 1995 Results Radiology Reports * Exam Date Time Procedure Performing Provider Status 03/25/22 2:15 PM Chest Portable Salo Crook; Luis M (Ve rified) Notes: (Chest Portable) Reason For Exam: Shortness of Breath RESULT: Chest Portable Chest Portable REASON: Shortness of Breath; Clinical Question(s): Pneumonia / Pneumonia COMPARISON: 03/20/2022 FINDINGS: LINES AND TUBES: None. LUNGS AND PLEURA: Clear lungs. Normal pulmonary vascularity. No pleural effusion. No pneumothorax. HEART, MEDIASTINUM AND MAMADOU: Heart is normal in size. Aorta is tortuous and partially calcified. BONES AND SOFT TISSUES: No acute abnormality. Status post ORIF of 3 right ribs. A screw projects in the right upper chest, separate from the ORIFhardware, but unchanged in position from recent prior exams. IMPRESSION: No evidence of acute abnormality. WSN: [id number] Ordering Physician: Fredy Hallman Dictated By: William Wilson MD Dictated Date/Time: 03/25/22 2:17 pm Reviewed By: William Wilson MD Signed By: William Wilson MD Signed Date/Time: 03/25/22 2:17 pm Transcribed By: BERENICE Transcribed Date/Time: 03/25/22 2:16 pm Vital Signs Most recent to oldest [Reference Range]: 1 2 3 Height 183 cm (03/27/22 7:45 AM) 183 cm (03/27/22 6:11 AM) 183 cm (03/26/22 11:52 PM) Weight 54.2 kg (03/25/22 8:08 PM) Oxygen Saturation [94-100 %] 100 % (03/27/22 7:45 AM) 97 % (03/27/22 6:11 AM) 98 % (03/26/22 11:52 PM) Pulse Rate [55-90 bpm] 18 bpm *L* (03/27/22 8:17 AM) 71 bpm (03/27/22 7:45 AM) 69 bpm (03/27/22 6:11 AM) Body Mass Index [18.5-24.99] 16.18 *L* (03/25/22 8:08 PM) Blood Pressure [90-138/55-84 mm Hg] 114/66mm Hg (03/27/22 8:17 AM) 114/66mm Hg (03/27/22 8:15 AM) 114/66mm Hg (03/27/22 7:45 AM) Respiratory Rate [16-30 br/min] 18 br/min (03/27/22 9:59 AM) 18 br/min (03/27/22 8:16 AM) 18 br/min (03/27/22 7:45 AM) Temperature [96.8-100.4 DegF] 98.6 DegF (03/27/22 7:45 AM) 97.8 DegF (03/27/22 6:11 AM) 97.6 DegF (03/26/22 11:52 PM) Liters per Minute 2 L/min (03/26/22 11:52 PM) 2 L/min (03/26/22 8:03 PM) 2 L/min (03/26/22 12:37 AM) Mode of Delivery (Oxygen) Room air (03/27/22 7:45 AM) Room air (03/27/22 6:11 AM) Nasal cannula (03/26/22 11:52 PM) Blood pressure sites Arm, right (03/27/22 7:45 AM) Arm, right (03/27/22 6:11 AM) Arm, right (03/26/22 11:52 PM) Temperature Route Oral (03/27/22 7:45 AM) Oral (03/27/22 6:11 AM) Oral (03/26/22 11:52 PM) Dry Weight 54.2 kg (03/25/22 8:08 PM) Social History Social History Type Response Tobacco Use: Former smoker.. Sex
--- OUTSIDE RECORDS SUMMARY | 2023-08-15 20:24 | XMS_ITS | Continuity of Care Document ---
Author Name Unknown Organization [facility] Address [address] [place] [phone]- Care Team Providers Care V Belt [employer]er [employer] Name Role Phone Jorge Garcia III, MD Primary Care Physician [phone] Encounter [facility] [place] Date(s): 01/07/21 - 02/06/21 [facility] [address] [place] [address]- Allergies, Adverse Reactions, Alerts Substance Reaction Severity [...] 16:44:00 EDT, Aerosol, Route to Pharmacy Electronically, [id number], [facility]/pharmacy #[id number], 182, cm, 05/26/20 16:01:00 [...] each,6 Refills, Maintenance, 08/13/20 16:33:00 EDT, Powder, [facility]/pharmacy #[id number], 182, cm, 05/26/20 16:01:00 [...] 0 Refills, Maintenance, 09/22/20 9:05:00 EDT, Tablet, [facility]/pharmacy #[id number], 182, cm, 09/18/2013:10:00 EDT, Height, 67, kg, 07/05/20 13:57:00 EDT... Start Date: 09/22/20 Status: Ordered roflumilast 500 mcg oral tablet 1 tablet = 500 mcg, By Mouth, Daily, # 30 tablet, 11 Refills, Maintenance, 05/15/20 13:53:00 EDT, [facility]/pharmacy #[id number], 182, cm, 05/15/20 13:20:00 EDT, Height, [...] 6, 03/31/07 11:15:26, Print MARTIN Number, [facility], [address] [place] [address], [id number], Constant Indicator Start Date: 03/31/07 Stop Date: [...]
--- OUTSIDE RECORDS SUMMARY | 2023-08-15 20:24 | XMS_ITS | Continuity of Care Document ---
Author Name Unknown Organization [facility] ter Address [address] [place] [id number] Care Team Providers Care Repairer Handtools Name Role Phone Jose LEE MD, Jorge Tsang Primary Care Physician Encounter [facility] [place], [place] Date(s): 05/22/23 - 05/25/[address] [address]- Encounter Diagnosis COPD exacerbation(Final) - 05/22/23 Discharge Disposition: A-D/C Home Attending Physician: Pia Rapp DO Admitting Physician: Marika AMAYA, Rene Casey Referring Physician: Not on Staff, Referring MD [...] virus vaccine, inactivated 1 10/14/06 Gi rox [id number] 12y+ bivalent booster vax 08/23/22 Recorded SARS-CoV-2 [...] opioid drug. Start Date: 07/02/22 Status: Ordered [place] Saline 0.65% nasal gel 1 sprays, Nares, Both, 4 times a day, # 22.5 Gm, 0 Refills, Maintenance, 05/12/23 15:41:00 EDT, [facility]/pharmacy #[id number], Partial fill upon patient request if the prescription is for a schedule II opioid drug., 1 sprays Nares, Both 4 times a day, 183, cm, 0... Start Date: 05/12/23 Status: Ordered dicyclomine 10 mg oral capsule 1 capsule = 10 mg, By Mouth, 4 times a day, 0 Refills, Maintenance, 04/27/22 20:45:00 EDT, Partial fill upon patient request if the prescription is for a schedule II opioid drug. Start Date: 04/27/22 Status: Ordered Dilaudid 2 mg oral tablet 2 mg, Tablet, By Mouth, 4 times a day, PRN for Pain , Moderate, Routine, 05/24/23 17:33:00 EDT Start Date: 05/24/23 Stop Date: 05/25/23 Status: Discontinued Dilaudid 4 mg oral tablet 1 tablet = 4 mg, By Mouth, Every 4 hours, PRN Pain , Severe, Do not take if very sedated, confused., # 36 tablet, 0 Refills, Acute 05/30/23 10:29:00 EDT, 05/25/23 10:27:00 EDT, Tablet, [facility], Partial fill upon patient request if the... Start Date: 05/25/23 Stop Date: 05/30/23 Status: Ordered duloxetine 60 mg oral enteric [...] 5 Refills, Maintenance, 04/27/23 13:54:00 EDT, Tablet, [facility], Partial fill upon patient request if the prescription is for a schedule II opioid drug., 183, cm, 04/27/23 7:05:00... Start Date: 04/27/23 Stop Date: 10/24/23 Status: Ordered gabapentin 300 mg oral capsule 600 mg, Capsule, By Mouth, 05/25/23 9:00:00 EDT Start Date: 05/25/23 Stop Date: 05/25/23 Status: Completed gabapentin 300 mg oral capsule [...] release 25 mg, XL Tablet, By Mouth, 05/25/23 9:00:00 EDT Start Date: 05/25/23 Stop Date: 05/25/23 Status: Completed Narcan 4 mg/0.1 mL nasal [...] Daily Start Date: 07/02/22 Status: Ordered predniSONE 10 mg oral tablet 3 tablet = 30 mg, By Mouth, Daily, # 15 tablet, 0 Refills, Maintenance, 05/25/23 11:17:00 EDT, Tablet, [facility], Partial fill upon patient request if the prescription is for a schedule II opioid drug., 182.88, cm, 05/25/23 10:20:00 EDT... Start Date: 05/25/23 Status: Ordered Robitussin DM Liquid 5 mL, By Mouth, Every 6 hours, PRN Cough, Maintenance, 04/20/23 16:55:00 EDT, Syrup, Partial fill upon patient request if the prescription is for a schedule II opioid drug. Start Date: 04/20/23 Status: Ordered roflumilast 500 mcg oral tablet 1 tablet = 500 mcg, By Mouth, Daily, # 30 tablet, 0 Refills, Maintenance, 05/06/23 9:44:00 EDT, Tablet, [facility]/pharmacy #[id number], Partial fill upon patient request if the prescription is for a schedule II opioid drug., 182, cm, 05/06/23 7:54:00 EDT, Height,... Start Date: 05/06/23 Status: Ordered sodium chloride 0.65% nasal spray 1 sprays, Nares, Both, 5 times a day, dryness, # 1 each, 0 Refills, Maintenance, 05/12/23 15:40:00 EDT, Nasal [place], [facility]/pharmacy #[id number], Partial fill upon patient request if the prescription is for aschedule II opioid drug., 1 sprays Nares, Both 5 ti... Start Date: 05/12/23 Status: Ordered Symbicort 160mcg/4.5mcg Inhaler 2, puffs, [...] fractures of ribs Confirmed 01/06/11 Active Old DC (myocardial infarction) X 3 Confirmed Active PVD (peripheral vascular disease) Confirmed Active Tobacco dependence Confirmed Active Underweight Confirmed Active 1Cardiac stents 1991, 1995 Results Orders for Microbiology Reports Name Date Blood Culture 05/22/23 Blood Culture #2 05/22/23 Microbiology Reports TEST:Blood Culture, Second Order STATUS:Unauthenticated BODY SITE: SOURCE:Blood COLLECTED DATE/TIME:05/22/23 5:45 AM Blood Culture, Second Order SPECIMEN DESCRIPTION : BLOOD NO SITE SPECIAL REQUESTS : NONE CULTURE : NO GROWTH 3 DAYS REPORT STATUS : PRELIMINARY REPORT TEST:Blood Culture STATUS:Unauthenticated BODY SITE: SOURCE:Blood COLLECTED DATE/TIME:05/22/23 5:38 AM Blood Culture SPECIMEN DESCRIPTION : BLOOD NO SITE SPECIAL REQUESTS : NONE CULTURE : NO GROWTH 3 DAYS REPORT STATUS : PRELIMINARY REPORT Radiology Reports * Exam Date Time Procedure Performing Provider Status 05/22/23 1:[address] Abd/Pelvis W/ IV Contrast Only Jalb ert , Vera; Auth (Verified) Notes: (CT Abd/Pelvis W/ IV Contrast Only) Reason For Exam: Pain RESULT: CT Abd/Pelvis W/ IV Contrast Only CT Abd/Pelvis W/ IV Contrast Only REASON: Pain; Clinical Question(s): Abscess; Special Instructions: cannot tolerate po contrast; Order Comment: TECHNIQUE: Spiral CT through the abdomen and pelvis with IV contrast formatted in 3 planes. 75 cc of Omnipaque 300 was administered intravenously. This study was performed without oral contrast. Weight-based protocol using automatic tube modulation was used to optimize exposure parameters. CTDIvol Body: 10.70 mGy, DLP Body: 518 mGy*cm. COMPARISON: 11/13/2022 and multiple prior FINDINGS: Car [place] Findings, Lines and Tubes: Right lower ribs fixation hardware, lower lumbar spine fusiondevice and left total hip arthroplasty hardware noted. Visualized Chest: Mild bibasilar atelectasis. No pleural effusion. The heart is normal in size. No pericardial effusion. Diaphragm: A small fat-containing right posterior diaphragmatic hernia Liver: Normal. Gallbladder: No CT evidence of gallbladder pathology. Bile ducts: No biliary ductal dilation. Spleen: Normal. Pancreas: Similar, 1.5 x 1.5 cm cystic lesion at the pancreatic neck, most likely representing a side branch IPMN. The main pancreatic duct is mildly prominent, without dilation. Adrenal glands: Normal. Kidneys and ureters: No hydronephrosis, stones, or suspicious masses. Simple appearing renal cysts and hypodensities that are too small to characterize are noted, requiring no dedicated follow up. Bladder: Partially obscured by streak artifact. Otherwise, no bladder wall thickening in the visualized portion.. Reproductive organs: Unremarkable. Stomach, small bowel, and large bowel: Normal. Appendix: Normal. Peritoneum and retroperitoneum: No ascites or pneumoperitoneum. No omental or mesenteric lesions. Lymph nodes: No enlarged lymph nodes. Blood vessels: Severe atherosclerotic vascular calcification but no aneurysm.. Bilateral common iliac stents are patent. Partially visualized proximal bilateral femoral bypass grafts are patent. Milddilation of the right common femoral artery measuring 1.4 cm, unchanged. No evidence of venous thrombosis. Abdominal and pelvic wall: Unremarkable. Bones: Status post fusion of L4-S1, with disc spacer at L5-S1. Compression fracture at T12 vertebral body, unchanged. Mild compression fracture at L1 vertebral body, slightly progressed since 11/13/2022. Old, healed left lower rib fracture. IMPRESSION: 1. No evidence of acute pathology in the abdomen and pelvis. 2. Compression fracture at L1 vertebral body with mild decrease in height, slightly progressed since 11/13/2022. 3. Chronic changes as described above. I have personally reviewed the images and I agree with this report. WSN: [id number] Ordering Physician: Judi Duff Dictated By: Glen Phillips MD Dictated Date/Time: 05/22/23 2:19 pm Reviewed By: William Wilson MD Signed By: William Wilson MD Signed Date/Time: 05/22/23 2:24 pm Transcribed By: BERENICE Transcribed Date/Time: 05/22/23 2:12 pm * Exam Date Time Procedure Performing Provider Status 05/22/23 6:04 AM Chest Portable Ashlee Raza; Luis M (Verified) Notes: (Chest Portable) Reason For Exam: Shortness of Breath RESULT: Chest Portable Chest Portable Hx of Present Illness: Pt began feeling stomach pain to the Right side of the abd and began feelingincreased SOB. Was satting in the 80s on RA and found with increased work of breathing.; Reason: Shortness of Breath; Clinical Question(s): CHF / CHF COMPARISON: 05/13/2023 FINDINGS: LINES AND TUBES: None. LUNGS AND PLEURA: Coarse lung markings with hyperlucent, hyperinflated lungs. No evidence of superimposed consolidation. No pleural effusion. No pneumothorax. HEART, MEDIASTINUM AND MAMADOU: Heart is normal in size. Normal mediastinal and hilar contour. BONES AND SOFT TISSUES: No acute abnormality. Status post ORIF of 3 ribs on the right. IMPRESSION: COPD without evidence of superimposed pneumonia or pulmonary edema. WSN: [id number] Ordering Physician: Roxane Lr Dictated By: William Wilson MD Dictated Date/Time: 05/22/23 8:29 am Reviewed By: William Wilson MD Signed By: William Wilosn MD Signed Date/Time: 05/22/23 8:29 am Transcribed By: BERENICE Transcribed Date/Time: 05/22/23 8:28 am Vital Signs Most recent to oldest [Reference Range]: 1 2 3 Height 182.88 cm (05/25/23 10:20 AM) 182.88 cm (05/24/23 10:07 PM) 182.88 cm (05/24/23 4:04 PM) Weight 54.2 kg (05/22/23 3:20 PM) 54.2 kg (05/22/23 8:00 AM) Oxygen Saturation [94-100 %] 93 % *L* (05/25/23 10:20 AM) 94 % (05/25/23 5:00 AM) 95 % (05/24/23 10:07 PM) Pulse Rate [55-90 bpm] 79 bpm (05/25/23 11:11 AM) 79 bpm (05/25/23 10:20 AM) 77 bpm (05/25/23 5:00 AM) Body Mass Index [18.5-24.99 kg/m2] 16.21 kg/m2 *L* (05/22/23 3:20 PM) Blood Pressure [90-138/55-84 mm Hg] 136/80mm Hg (05/25/23 11:11 AM) 136/80mm Hg (05/25/23 10:20 AM) 112/60mm Hg (05/25/23 5:00 AM) Respiratory Rate [16-30 br/min] 18 br/min (05/25/23 12:36 PM) 18 br/min (05/25/23 11:11 AM) 18 br/min (05/25/23 10:20 AM) Temperature [96.8-100.4 DegF] 97.7 DegF (05/25/23 10:20 AM) 97.9 DegF (05/25/23 5:00 AM) 98.2 DegF (05/24/23 10:07 PM) Liters per Minute 4 L/min (05/25/23 10:20 AM) 4 L/min (05/25/23 5:00 AM) 4 L/min (05/24/23 10:07 PM) Mode of Delivery (Oxygen) Nasal cannula (05/25/23 10:20 AM) Nasal cannula (05/25/23 5:00 AM) Nasal cannula (05/24/23 10:07 PM) Blood pressure sites Arm, left (05/25/23 10:20 AM) Arm, left (05/25/23 5:00 AM) Arm, left (05/24/23 10:07 PM) Temperature Route Oral (05/25/23 10:20 AM) Oral (05/25/23 5:00 AM) Oral (05/24/23 10:07 PM) Dry Weight 54.2 kg (05/22/23 3:20 PM) Weight Obtained Via Bed scale (05/22/23 8:00 AM) Social History Social History Type Response Tobacco Use: 4 or less cigar ettes(less than 1/4 pack)/day in last 30 days. Interested in cessation: Yes. Other: Reports smoked at least 30 years, up to 1-2 PPD at one point.. Type: Cigarettes. Sex History and physical note * Judi Duff MD: PERFORM, MODIFY Event Display: History and Physical Hospital Authored Date: [id number] Patient: ??ANT VARMA ? Age:??67 Years?Sex:??Male?:??1955?? Chief Complaint/Reason for Consultation acute shortness of breath and hypoxia History of Present Illness This is a 67 yo gentleman with very complex history, and frequent hospital admissions, with historyincluding COPD with chronic hypoxic respiratory failure, on home o2 2-3 L, ongoing tobacco abuse, recurrent shoulder infections, CAD s/p previous stents, chronic pain, DVT, HTN, ribr fractures, PVD, and anxiety, who presented from home 1 day after d/c from the hospital. He has been hospitalized most recently 05/12-05/21, after a hospitalization -05/12 (again, he was readmitted less than 24 hours after d/c on 05/12, per [facility]). On his most recent admission, he was treated for COPD exacerbation, and was found to have acute hypoxic/hypercapnic respiratory failure, likely exacerbated by CPAP noncom pliance and ongoing tobacco use.??He received a course of doxycycline for COPD flare, along with a higher dose prednisone course, and subsequently reverted to Prednisone??15mg po daily. He improved, and d/c plans were made, and pt was sent home via ambulance. He reports being home a few hours when he became more short of breath again, and called EMS. He does not know what triggered this, but denie d fever or injury. He does report worsening bilateral lower quadrant abdominal pain. He denied diarrhea or vomiting or any bleeding. (Of note, he did have a nosebleed during recent admission). ?? EMS arrived and found pt hypoxic, in the low 80s on 3L O2 via NC by report. He was placed on 15LNRB with improvement, but still had increased work of breathing, and was brought to the ED. In the ED,??he was placed on biPAP. Evaluation included labs, which showed elevated WBC; a lactate was mildly elevated, but improved with IV fluids. Urinalysis did not suggest infection.??CXR showed no pneumonia or pulmonary edema, but showed hyperinflation consistent with COPD. He had blood cultures x2, and was then given antibiotics after that, due to the severity of his acute hypoxia and the constellation of symptoms. Because of his abdominal complaints, a CT A/P was obtained, and showed no acute abnormalities to account for his discomfort. He was admitted to the medical service on intermediate care, but was weaned off the biPAP on the day of admission, and a request for transfer to a medical acute bed was requested, now that he no longer requires intercare. ? Review of Systems A complete 10+ ROS was attempted and negative except as detailed in the HPI above History was supplemented by information from the ED. Old records including recent April admissions were reviewed in detail, along with prior medications and outside pharmacy records Objective Measurements?? Weight: 54.2 kg (05/22/23) ?? Vital Signs?? Temperature: 97.6 DegF (05/22/23 15:00:00) Temperature Route: Oral (05/22/23 15:00:00) Pulse Rate: 80 bpm (05/22/23 15:00:00) Heart Rate Monitored: 83 bpm (05/22/23 14:00:00) Respiratory Rate: 16 br/min (05/22/23 15:57:00) Vented: No (05/22/23 14:00:00) Systolic Blood Pressure: 102 mm Hg (05/22/23 15:00:00) Diastolic Blood Pressure: 71 mm Hg (05/22/23 15:00:00) Blood pressure sites: Arm, left (05/22/23 15:00:00) Mean Arterial Pressure: 99 mm Hg (05/22/23 05:31:00) Pulse Pressure: 31 mm Hg (05/22/23 15:00:00) Oxygen Saturation: 98 % (05/22/23 15:00:00) Liters per Minute: 3 L/min (05/22/23 11:00:00) Mode of Delivery (Oxygen): Nasal cannula (05/22/23 15:00:00) FiO2: 40 % (05/22/23 05:58:00) Early Warning Score: 5 (05/22/23 16:30:57) ? Physical Exam General:??alert, fatigued and chronically ill appearing; + cachexia; able to speak short sentences,on O2 4L via NC EOMI; MMM; no epistaxis no drooling or stridor RRR no JVD HR 80s resp non labored, on O2 4L via NC-- + occasional accessory muscle use after prolonged conversation;sat in the upper 90s; + occ wheezing, diminished, no rhonchi noted abd soft, tender in b/l LQ, +BS, no peritoneal signs ext warm/thin no new focal deficits apparent on limited bedside exam; moving all ext; faint tremor; speech clear AAOx3 Assessment/Plan Diagnoses COPD exacerbation ??(J44.1) 1. ??Acute hypoxemic respiratory failure ??(J96.01) 2. ??KENNEDI on CPAP ??(G47.33) 3. ??Tobacco dependence ??(F17.200) 4. ??Pulmonary cachexia due to COPD ??(J44.9) ?? Assessment:??This is a 67 yo gentleman with very complex history including severe COPD, with chronic hypoxic respiratory failure on home O2, as well as KENNEDI with??inconsistent NIPPV adherence, CAD, recurrent shoulder septic arthritis requiring multiple rounds of antibiotics in past year, and anxiety, who has been hospitalized very frequently in past months, and returns 1 day after d/c from a hospitalization for COPD exacerbation.??He presented this AM with acute dyspnea and hypoxia, and admits he was not using BiPAP at home and does continue to smoke. His hypoxia and increased work of breathing prompted EMS/ED to start rescue biPAP; he has weaned off of that, and is now back to 3L O2 via NC.He received Zosyn + azithromycin in ED for possible pneumonia. He is in intercare, and I have requested transfer to acute floor, as he is no longer on rescue biPAP. ?? Acute hypoxemic respiratory failure (J96.01): KENNEDI on CPAP (G47.33): Acute on chronic hypoxic respiratory failure Etiology not certain; likely multifactorial-- lack of NIPPV compliance, tobacco use, and underlyingsevere COPD without any reserves ??to allow him to tolerate??brief non-adherence He is not having severe wheezing at this time, and is back to his usual home O2 requirement, so will not increase steroids from the prednisone 15mg dose No infiltrate on CXR, and he is afebrile, though WBC elevated; will trend WBC, and monitor closely off antibiotics for any signs of evolving infection-- would repeat CXR at that time Blood cultures in process x2, please follow Continue O2, bipap at night, and monitor resp status with usual home regimen Continue inhaler therapy ??Continue home Roflumilast tobacco cessation and NIPPV adherence strongly advised ?? 2. Abdominal??pain: He was treated for constipation on recent admission, with good results. On this admission, he had CT A/P today, and that did not show acute findings to account for his pain Will continue supportive care, advance diet as tolerated, and if pt develops diarrhea, would send for c.diff and GI PCR For now, he has not had any diarrhea, so will continue to monitor ?? 3. Hx Septic arthritis of shoulder, right??(M00.9) ??He was previously on a wound VAC which was discontinued on most recent hospital stay; has had many courses of antibiotics, managed by ID and Ortho at [facility]. Follow blood cultures; he is not complaining of shoulder pain at the moment Would anticipate outpt f/u at [facility], unless new indication of acute??infection (Blood culture on recent admission was negative) ?? Hypertension--continue metoprolol Hyperlipidemia--continue statin Coronary artery disease--Continue home metoprolol, isosorbide dinitrate, aspirin and atorvastatin ?? Anxiety/depression--??Continue home duloxetine and hydroxyzine GERD: on PPI ??History of DVT- continue Apixaban ?? Tobacco dependence (F17.200):??cessation advised Pulmonary cachexia due to COPD (J44.9):??RD consult'; continue vitamins; encourage supplement shakes once tolerating diet ?? DVT proph: apixaban Full Code ? Histories Allergies Allergies ?(Active and Proposed Allergies Only) naproxen? (Severity: Unknown severity, Onset: Unknown) ?Reactions: lesions on lips Toradol? (Severity: Persistent Mild, Onset: Unknown) ?Reactions: hives, Cephalexin allergy, Naproxen, Metaxalone, Morphine allergy Keflex? (Severity: Unknown severity, Onset: Unknown) ?Reactions: rash ?Comments: tolerates pip/tazo 11/17 Skelaxin? (Severity: Unknown severity, Onset: Unknown) ?Reactions: H/O: migraine ? Past Medical History/Problem List Active Problems??(20) Anemia Anxiety CAD - Coronary artery disease Chronic low back pain COPD (chronic obstructive pulmonary disease) COPD exacerbation Deep vein thrombosis (DVT) of left lower extremity Epistaxis GERD (gastroesophageal reflux disease) HTN (hypertension) Hyperlipidemia Hyponatremia Metabolic alkalosis Multiple fractures of ribs Old DC (myocardial infarction) X 3 Pulmonary cachexia due to COPD PVD (peripheral vascular disease) Smoking greater than 40 pack years Tobacco dependence Underweight ? R shoulder infection: followed by ID and Ortho at [facility] He previously received 6-week courses of vancomycin for MRSA in 2021 then, had??a 6-week course of IV vancomycin and meropenem for right shoulder aspirate January 11, 2023-- Actinetobacter junii.?? Subsequently, a R shoulder culture reportedly grew MRSA, and he completed a course of daptomycin followed by doxycycline.?? During his most recent hospital stay here, he was followed by ortho who recommended that the patient continue outpatient follow-up with [facility] infectious disease and orthopedics at [facility].? Past Surgical History Arthrotomy, glenohumeral joint, including [...] (Robitussin DM Liquid)?5?Milliliter?By Mouth?Every 6 hours?as needed?Cough HydrOXYzine (hydrOXYzine hydrochloride 10 mg oral tablet)?1?tab(s)?10?Milligram?By [...] to give the dose of NARCAN Nasal [place]. Remove t... Pantoprazole (pantoprazole 40 mg oral delayed release tablet)?1?tab(s)?40?Milligram?By Mouth?Daily PredniSONE (predniSONE 5 mg oral tablet)?3?tab(s)?15?Milligram?By Mouth?Daily roflumilast (roflumilast 500 mcg oral tablet)?1?tab(s)?500?Microgram?By Mouth?Daily Sodium Chloride Nasal (sodium chloride 0.65% nasal spray)?1?spray(s)?Nares, Both?5 times a day?dryness Sodium Chloride Nasal ([place] Saline 0.65% nasal gel)?1?spray(s)?Nares, Both?4 times a day Thiamine (Vitamin B1 100 mg oral tablet)?100?Milligram?1?tablet?By Mouth?Daily umeclidinium (Incruse Ellipta 62.5 mcg/inh inhalation powder)?1?puff(s)?Inhalation?Every 24 hours ? Results Abnormal Labs ?? BLOOD COUNT & DIFF ??Abs. Imm Gran ??0.3 k/mm3 () ??05/22/2023 05:38 ??Abs. [place] ??1.4 k/mm3 (High) ??05/22/2023 05:38 ??Abs. NRBC ??0.0 k/mm3 () ??05/22/2023 05:38 ??Abs. Neut ??12.3 k/mm3 (High) ??05/22/2023 05:38 ??Hct ??36.6 % (Low) ??05/22/2023 05:38 ??Hematocrit (POC) POC Cartridge ??37 % (Low) ??05/22/2023 05:32 ??Hemoglobin (POC) POC Cartridge ??12.6 Gm/dL (Low) ??05/22/2023 05:32 ??Hgb ??10.8 Gm/dL (Low) ??05/22/2023 05:38 ??Imm Gran ??2.0 % () ??05/22/2023 05:38 ??Lymph % ??13.4 % (Low) ??05/22/2023 05:38 ??MCH ??26.9 pg (Low) ??05/22/2023 05:38 ??MCHC ??29.5 g/dL (Low) ??05/22/2023 05:38 ??Nucleated RBC (Automated) ??0.0 #/100 WBC'S () ??05/22/2023 05:38 ??Platelet Count ??675 k/mm3 (High) ??05/22/2023 05:38 ??RBC ??4.01 m/mm3 (Low) ??05/22/2023 05:38 ??RDW-SD ??57.1 femtoliters (High) ??05/22/2023 05:38 ??WBC ??16.3 k/mm3 (High) ??05/22/2023 05:38 ? CARDIAC ??High Sensitivity Troponin (HSTnT) ??23 ng/L (High) ??05/22/2023 07:44 ??Nt-Probnp ??284 pg/mL (High) ??05/22/2023 05:38 ? CHEM GENERAL ??AG Ratio ??1.7 () ??05/22/2023 05:38 ??Bicarbonate Level ??35 mmol/L (High) ??05/22/2023 05:38 ??Chloride ??95 mmol/L (Low) ??05/22/2023 05:38 ??Chloride (POC) POC Cartridge ??91 mmol/L (Low) ??05/22/2023 05:32 ??Creatinine (POC) POC Cartridge ??0.6 mg/dL (Low) ??05/22/2023 05:32 ??Creatinine-Blood ??0.5 mg/dL (Low) ??05/22/2023 05:38 ??Estimated GFR Creatinine ??115 ML/MIN/1.73 M2 () ??05/22/2023 05:38 ??Glucose (POC) POC Cartridge ??116 (High) ??05/22/2023 05:32 ??Glucose Level ??118 mg/dL (High) ??05/22/2023 05:38 ??Glucose, POC ??133 mg/dL (High) ??05/22/2023 05:18 ? MISC. CHEMISTRY ??Hold Gel Top ??SPECIMEN DISCARDED AFTER 1 WEEK () ??05/22/2023 07:44 ? UA/URINALYSIS ??Albumin, Urine ??1+ (Abnormal) ??05/22/2023 07:40 ??Amorphous Crystals ??SLIGHT /HPF () ??05/22/2023 07:40 ??Appear/Color, Urine ??YELLOW () ??05/22/2023 07:40 ??Bacteria ??SLIGHT HPF (Abnormal) ??05/22/2023 07:40 ??Bilirubin, Urine ??NEGATIVE () ??05/22/2023 07:40 ??Glucose, Urine ??NEGATIVE () ??05/22/2023 07:40 ??Hemoglobin, Urine ??NEGATIVE () ??05/22/2023 07:40 ??Hold Urine Culture ??Testing available 48 hours from time of collection. () ??05/22/2023 07:40 ??Hyaline Cast ??7 LPF (High) ??05/22/2023 07:40 ??Ketones, Urine ??TRACE (Abnormal) ??05/22/2023 07:40 ??Leukocyte, Urine ??NEGATIVE () ??05/22/2023 07:40 ??Mucus ??SLIGHT /LPF () ??05/22/2023 07:40 ??Nitrite, Urine ??NEGATIVE () ??05/22/2023 07:40 ??Urobilinogen ??NORMAL mg/dL () ??05/22/2023 07:40 ? VIROLOGY ??COVID-19 by RT-PCR ??NEGATIVE () ??05/22/2023 05:45 ? Note: Critical results are displayed in red. ? CBC, CBC w/Diff?? CBC?? Differential?? WBC:??16.3 k/mm3??High (05:38) Abs. Neut:??12.3 k/mm3??High (05:38) RBC:??4.01 m/mm3??Low (05:38) Abs. Lymph: 2.2 k/mm3 (05:38) Hct:??36.6 %??Low (05:38) Abs. [place]:??1.4 k/mm3??High (05:38) RDW-SD:??57.1 femtoliters??High (05:38) Abs. Eo: 0 k/mm3 (05:38) Nucleated RBC (Automated): 0 #/100 WBC'S (05:38) Abs. Baso: 0 k/mm3 (05:38) Abs. NRBC: 0 k/mm3 (05:38) Neut %: 75.5 % (05:38) ?? Lymph %:??13.4 %??Low (05:38) ?? [place] %: 8.7 % (05:38) ?? Eos %: 0.2 % (05:38) ?? Baso %: 0.2 % (05:38) ?? Hemoglobin (POC) POC Cartridge:??12.6 Gm/dL??Low (05:32) ?? Hematocrit (POC) POC Cartridge:??37 %??Low (05:32) ?? Imm Gran: 2 % (05:38) ?? Abs. Imm Gran: 0.3 k/mm3 (05:38) ? BMP, Mg, and Phos Anion Gap: 12 (05:38) Bicarbonate Level:??35 mmol/L??High (05:38) BUN: 14 mg/dL (05:38) Calcium: 10.1 mg/dL (05:38) Chloride:??95 mmol/L??Low (05:38) Creatinine-Blood:??0.5 mg/dL??Low (05:38) Estimated GFR Creatinine: 115 ML/MIN/1.73 M2 (05:38) Glucose Level:??118 mg/dL??High (05:38) Ionized Calcium (POC) POC Cartridge: 1.13 mmol/L (05:32) Potassium: 4.7 mmol/L (05:38) Sodium: 142 mmol/L (05:38) ?? Coagulation Profile?? No qualifying data available. ?? LFT Albumin: 4.1 Gm/dL (05:38) Alkaline Phosphatase: 112 units/L (05:38) ALT (SGPT): 21 units/L (:38) AST (SGOT): 26 units/L (:38) Bilirubin, Total: 0.3 mg/dL (:38) ?? Cardiology Labs Nt-Probnp:??284 pg/mL??High (05/22/23 05:38:00) High Sensitivity Troponin (HSTnT):??23 ng/L??High (05/22/23 07:44:00) High Sensitivity Troponin (HSTnT):??30 ng/L??High (05/22/23 05:38:00) ?? Test Name Test Result Date/Time WBC 16.3 k/mm3 05/22/2023 05:38 EDT WBC 10.3 k/mm3 05/19/2023 01:14 EDT Hgb 10.8 Gm/dL 05/22/2023 05:38 EDT Hgb 8.6 Gm/dL 05/21/2023 05:35 EDT Platelet Count 675 k/mm3 05/22/2023 05:38 EDT Platelet Count 508 k/mm3 05/19/2023 01:14 EDT Sodium 142 mmol/L 05/22/2023 05:38 EDT Glucose Level 118 mg/dL 05/22/2023 05:38 EDT Creatinine-Blood 0.5 mg/dL 05/22/2023 05:38 EDT Lactate 1.1 mmol/L 05/22/2023 07:44 EDT Lactate 2.3 mmol/L 05/22/2023 05:38 EDT Nt-Probnp 284 pg/mL 05/22/2023 05:38 EDT High Sensitivity Troponin (HSTnT) 23 ng/L 05/22/2023 07:44 EDT High Sensitivity Troponin (HSTnT) 30 ng/L 05/22/2023 05:38 EDT WBC's, Urine 3 /HPF 05/22/2023 07:40 EDT Imaging(s) ?Chest Portable ?? 05/22/2023 06:04??by William Wilson MD ?CT Abd/Pelvis W/ IV Contrast Only ?? 05/22/2023 13:45??by William Wilson MD ?IMPRESSION: ?? COPD without evidence of superimposed pneumonia or pulmonary edema. ? WSN: [id number] ? Ordering Physician: Roxane Lr? Signature Line Dictated By: ?William Wilson MD Dictated Date/Time: ?05/22/23 8:29 am ? IMPRESSION:? 1. ??No evidence of acute pathology in the abdomen and pelvis.?? 2. ??Compression fracture at L1 vertebral body with mild decrease in height, slightly progressed since 11/13/2022. 3. ??Chronic changes as described above. ? I have personally reviewed the images and I agree with this report. WSN: [id number] ? Ordering Physician: Judi Duff? Signature Line Dictated By: ?Glen Phillips MD Dictated Date/Time: ?05/22/23 2:19 pm Reviewed By: ?William Wilson MD Signed By: ? Steve AMAYA, William Pereira Signed Date/Time: ? 05/22/23 2:24 pm Transcribed By: ? [facility] * Event Display: Cardiac Rhythm Strips Authored Date: Hospital Progress note * Paz Cronin RN: PERFORM, SIGN, VERIFY Event Display: Progress Note Hospital Authored Date: Patient: ANT VARMA Age: 67 years Sex: Male : 1955 Associated Diagnoses: None Author: Paz Cronin RN Findings Narrative/Incidental Patient transferreds to S3 pending discharge; report given to Rn on S3.. Discharge Information Case Management Discharge Plan : Case Management Discharge Plan Data 05/25/2023 9:55 EDT Discharge Level of Care at Discharge Home/Senior Care/Foster Care 05/21/2023 12:30 EDT Discharge Level of Care at Discharge Homehealth/VNA Discharge VNA/Hospice/Home Care [facility] 05/20/2023 13:47 EDT Discharge Level of Care at Discharge Homehealth/VNA Discharge VNA/Hospice/Home Care [facility] (Modified) Discharge Transportation Arranged [facility] [address] [facility] [id number] [phone] Name of Agency #1 [facility] (Modified) Name of Agency #1 [facility] Categories #1 Oxygen Therapy, Physical Therapy, Alf Service Comments #1 The above agency will be providing visiting home services. They should contact you within 24 ??? 48 hours of returning home. If they do not, please contact the company at the above number. Service Categories #2 Oxygen Therapy Pulmonary Rehab Discharge : Pulmonary Rehab Discharge Status 05/25/2023 1:38 EDT CPAP/BiPAP Mask Type Full CPAP/BiPAP Mask Size Large 05/22/2023 5:32 EDT CPAP/BiPAP Mask Type Full CPAP/BiPAP Mask Size Large * Marcelo Parker DO: PERFORM Event Display: Progress Note Hospital Authored Date: Patient: ??ANT VARMA ? Age:??67 Years?Sex:??Male?:??1955?? Patient refused to wear BiPAP when asked by nursing staff. He was demanding IV Dilaudid, not the 2 mg PO PRN 4 times per day, which is his home dose. When I went to see this patient, he was sleeping with oxygen per nasal cannula. I woke the patient to discuss use of BiPAP. He agreed to wear BiPAP throughout the night. Nursing staff was notified that patient was agreeable to using BiPAP. ?? Cristian Parker DO Internal Medicine Resident * Marcelo Parker DO: PERFORM Event Display: Progress Note Hospital Authored Date: Patient continued to refuse BiPAP later in night. He could only tolerate 20 min on mask. Explained risks of not using BiPAP at night. Patient understood. Continues to refuse BiPAP. * Valorie Higgins RN: PERFORM, SIGN, VERIFY Event Display: Progress Note Hospital Authored Date: Patient: ANT VARMA Age: 67 years Sex: Male : 1955 Associated Diagnoses: None Author: Valorie Higgins RN Findings Narrative/Incidental Received patient alert ant and oriented x 3,breathing on oxygen therapy ,cpoious cough got nebulization,nil distress noted, safety maintained, medicated as prescribed, patient encourage to verbalize fears and concerns .. Discharge Information Case Management Discharge Plan : Case Management Discharge Plan Data 05/21/2023 12:30 EDT Discharge Level of Care at Discharge Homehealth/VNA Discharge VNA/Hospice/Home Care [facility] 05/20/2023 13:47 EDT Discharge Level of Care at Discharge Homehealth/VNA Discharge VNA/Hospice/Home Care [facility] (Modified) Discharge Transportation Arranged [facility] [address] [facility] [id number] [phone] Name of Agency #1 [facility] (Modified) Name of Agency #1 [facility] Categories #1 Oxygen Therapy, Physical Therapy, Alf Service Comments #1 The above agency will be providing visiting home services. They should contact you within 24 ??? 48 hours of returning home. If they do not, please contact the company at the above number. Service Categories #2 Oxygen Therapy 05/17/2023 12:45 EDT Discharge Level of Care at Discharge In Error (In Error) Discharge Transportation Arranged In Error (In Error) Discharge Arranged Transport Date/Time 05/17/2023 17:00 (In Error) Mode of Transportation Arranged In Error (In Error) Pulmonary Rehab Discharge : Pulmonary Rehab Discharge Status 05/22/2023 5:32 EDT CPAP/BiPAP Mask Type Full CPAP/BiPAP Mask Size Large Note * Michael AMAYA, Shun: PERFORM Event Display: Discharge/Transfer Note Hospital Authored Date: [id number] Patient: ??ANT VARMA ? Age:??67 Years?Sex:??Male?:??1955?? Patient Information Discharge Location: Primary Care Physician: Jorge Garcia III, MD Admit Date/Time: 05/22/23 06:23 Discharge Disposition Discharge Disposition: Home: No Services Discharge Diagnosis Acute hypoxemic respiratory failure (J96.01) KENNEDI on CPAP (G47.33) Tobacco dependence (F17.200) Pulmonary cachexia due to COPD (J44.9) COPD exacerbation (J44.1) Anxiety CAD - Coronary artery disease COPD [...] DM Liquid)?5?Milliliter?By Mouth?Every 6 hours?as needed?Cough Hydromorphone (Dilaudid 4 mg oral tablet)?1?tab(s)?4?Milligram?By Mouth?Every 4 hours?as needed?Pain , Severe?Do not take if very sedated, confused. HydrOXYzine (hydrOXYzine hydrochloride 10 mg oral tablet)?1?tab(s)?10?Milligram?By [...] to give the dose of NARCAN Nasal [place]. Remove t... Pantoprazole (pantoprazole 40 mg oral delayed release tablet)?1?tab(s)?40?Milligram?By Mouth?Daily PredniSONE (predniSONE 10 mg oral tablet)?3?tab(s)?30?Milligram?By Mouth?Daily roflumilast (roflumilast 500 mcg oral tablet)?1?tab(s)?500?Microgram?By Mouth?Daily Sodium Chloride Nasal (sodium chloride 0.65% nasal spray)?1?spray(s)?Nares, Both?5 times a day?dryness Sodium Chloride Nasal ([place] Saline 0.65% nasal gel)?1?spray(s)?Nares, Both?4 times a day Thiamine (Vitamin B1 100 mg oral tablet)?100?Milligram?1?tablet?By Mouth?Daily umeclidinium (Incruse Ellipta 62.5 mcg/inh inhalation powder)?1?puff(s)?Inhalation?Every 24 hours ? Medications Started Prednisone PCP Follow-Up/Heads-Up - Patient will need comprehensive pain plan to avoid further opioids if possible - Follow up on IPMN with MRI or EUS in 6-12 months, no high risk features or lab characteristics ofpancreatitis - encourage follow up with pulmonology in 07/11, encourage bipap use as well at home - Would likely benefit from VNA services however has been noncompliant with this in the past - Follow up blood cultures until finalized negative Future Appointments Tuesday 10:20 AM EDT ?? With: Leeanne FREEMAN, Amaya Montenegro Where: Primary Care [address] [address]- Status: Pending Tuesday 9:00 AM EDT ?? With: Stevenson Plascencia DO Where: [facility] [place] [address]- Status: Pending Hospital Course 67 year old male with severe COPD, chronic hypoxic respiratory failure on 2-3L home O2, KENNEDI with inconsistent NIPV adherence, CAD, recurrent shoulder septic arthritis managed at [facility] and anxiety with recurrent admissions in the past COPD exacerbations (including 2 days prior to presentation), presented to the emergency room on 05/22 for shortness of breath concerning for COPD exacerbation. Patient was 1 day post discharge from treatment of a COPD flare when he came in. Was notedto be hypoxic to80s on 3L O2??and was started on 15L NRB then escalated to biPap due to increased work of breathing. Labs significant for an elevated WBC count, elevated lactate that responded to fluids with no signs of UTI on UA or pneumonia on chest xray. Patient was eventually downtitrated to 4LNC and admitted to the general medical floor for further management. . Patient did undergo CT imaging of his abdomen/pelvis for d ongoing abdominal pain without acute findings and was resumed on home dilaudid from previous admission for pain control. throughout admission, patient repeatedly requested IV dilaudid for pain despie good effect from oral dilaudid shown by patient being able to fall asleep on the general medical floor. One dose of IV dilaudid was given per agreement with patient however when further requests were denied, patient became angry and wanted to leave AMA but stayed one more night. Work of breathing responded well to Duonebs and steroid bursts and outpatient follows were arranged to facilitate transition to home care. Patient remained stable on 2-4 L of oxygen, similar to home dose and was discharged to continue management at home. ?Acute on chronic hypoxic respiratory failure, resolved ??Hypercarbia, improved KENNEDI on CPAP/BiPAP Moderate protein malnutrition due to COPD Severe Chronic obstructive pulmonary disease. ?Etiology??for acute worsening likely multifactorial-- lack of NIPPV compliance, tobacco use, and underlying severe COPD without any reserves to allow him to tolerate brief non-adherence ??No infiltrate on CXR, and he is afebrile, though WBC elevated (16.8 on admission likely related to dehydration given profound increase in 3 cell lines with improvement with fluids) ??Has been able to be weaned from bipap but on higher O2 than at home currently, 4L (baseline 2-3L). Remains stable on 4L NC with duoneb therapy. ??Hypercarbia to 41-->35 on day of discharge, likely has some level of chronic CO2 retention to explain??mild elevations in bicarb throughout hospitalization ??Pulm consulted, will follow up as outpatient ??RD consulted, appreciate recs ?Plan: ??-??Slow steroid taper over 6 days then continue daily 15g dose ??- At this time, do not think patient needs chronic macrolide therapy given improvement with nebulized medications, can consider as an outpatient ??- Follow up blood cultures, NGTD x??48 hours 05/25 ??- O2 during the day, bipap at night and with naps ??- Continue home inhalers and roflumilast ??-??Advised smoking cessation - Follow up with pulmonology scheduled for 07/11 and NPV with PCP on 05/30 ? Abdominal pain: ??He was treated for constipation on recent admission, with good results. Has had previous RUQ??U/Sthat was also negative ??On this admission, he had CT A/P today, and that did not show acute findings to account for his pain. Did show a side branch IPMN which does not explain symptoms ??May be related to Opioid induced bilary colic or functional in the setting of anxiety and stress from recurrent admissions.?Requests for IV dilaudid suggestive of opioid seeking behavior in the setting of??negative work up during this and other??hospitalization ??Amylase mildly elevated and normal lipase not consistent with pancreatitis ? Recommendation: ??-Regular diet ??-??continued home dilaudid 4mg every 4 hours PRN for severe pain, gave 6 day supply to get patient to PCP appointment ??- Advised following up with new patient visit for further pain management ??-??Consider with MRI or EUS??in 6-12 mos for IPMN ?Recurrent epistaxis ??Hgb currently at baseline 8.6 ??Has been ongoing for a few months, may be related to chronic dry nose from O2 therapy and bipap trials at home ??Some fresh blood in upper nose on exam but no foreign bodies or lesions appreciated on exam ? Recommendation: ?-Continue to monitor ??- Will continue apixaban given patient's history of DVTs and poor mobility ??- Consider outpatient ENT evaluation if bleeding becomes more frequent ?Hx Septic arthritis of shoulder, right (M00.9) ?He was previously on a wound VAC which was discontinued on most recent hospital stay; has had many courses of antibiotics, managed by ID and Ortho at [facility]. ??Blood cultures NGTD x??48 hours 05/24 Recommendation: ?- Follow blood cultures until finalized ??- Would anticipate outpt f/u at [facility], unless new indication of acute infection ??(Blood culture on recent admission was negative) ? Chronic stable medical conditions ??Hypertension--continue metoprolol ??Hyperlipidemia--continue statin ??Coronary artery disease--Continue home metoprolol, isosorbide dinitrate, aspirin and atorvastatin ?Anxiety/depression-- Continue home duloxetine and hydroxyzine ??GERD: on PPI ?History of DVT- continue Apixaban ?Tobacco dependence (F17.200): cessation advised ?? Objective Measurements?? Height: 182.88 cm (05/25/23) Weight: 54.2 kg (05/22/23) Dry Weight: 54.2 kg (05/22/23) Body Mass Index:??16.21 kg/m2??Low (05/22/23) ? Vital Signs?? Temperature: 97.7 DegF (05/25/23 10:20:00) Temperature Route: Oral (05/25/23 10:20:00) Pulse Rate: 79 bpm (05/25/23 11:11:00) Respiratory Rate: 18 br/min (05/25/23 12:36:00) Systolic Blood Pressure: 136 mm Hg (05/25/23 11:11:00) Diastolic Blood Pressure: 80 mm Hg (05/25/23 11:11:00) Blood pressure sites: Arm, left (05/25/23 10:20:00) Mean Arterial Pressure: 99 mm Hg (05/25/23 10:20:00) Pulse Pressure: 56 mm Hg (05/25/23 10:20:00) Oxygen Saturation:??93 %??Low (05/25/23 10:20:00) Liters per Minute: 4 L/min (05/25/23 10:20:00) Mode of Delivery (Oxygen): Nasal cannula (05/25/23 10:20:00) Early Warning Score: 0 (05/25/23 13:12:12) ? . Physical Exam Recent Vital Signs Temperature: 97.7 DegF (05/25/23 10:20:00) Pulse Rate: 79 bpm (05/25/23 11:11:00) Respiratory Rate: 18 br/min (05/25/23 12:36:00) Systolic Blood Pressure: 136 mm Hg (05/25/23 11:11:00) Diastolic Blood Pressure: 80 mm Hg (05/25/23 11:11:00) Oxygen Saturation:??93 %??Low (05/25/23 10:20:00)? General Appearance:??NAD, cachectic elderly male. HEENT: No scleral icterus or conjunctival injection. Cardiovascular: RRR S1 and S2 heard with no M/R/G. Respiratory:?Diffuse wheezing bilaterally throughout (patient near time for next treatment) GI: Soft.??Tender to palpation in right side of abdomen both upper and lower quadrants. ??No peritoneal signs. Normal bowel sounds present throughout abdomen.?? MS: ??No edema or erythema in the lower extremities.?? Peripheral sensation intact.?? Neuro: ??No slurred speech. ??Patient seen moving their upper and lower extremities independently. Psych: Alert and oriented x3. Stressed out. Lines: Peripheral IV in place.? Pending Results Add On Lab Order ordered on 05/23/2023 Blood Culture ordered on 05/22/2023 Blood Culture #2 ordered on 05/22/2023 Patient Education Titles Chronic Lung Disease:??Controlling Stress?? Chronic Lung Disease: Tips for Quitting Smoking?? Chronic Lung Disease: Preventing Lung Infections?? Chronic Lung Disease: Helping with Treatment, For Caregivers?? Medicines for Chronic Obstructive??Pulmonary Disease (COPD)?? Follow-Up Appointments Added Follow Up ?Time Frame ?Comments primary care?5 to 7 days?Already scheduled for new patient visit with Leeanne FREEMAN on 05/30 Patient Instructions DIAGNOSIS: Acute on chronic hypoxic respiratory failure, acute COPD exacerbation ? TEST RESULTS: Last bicarb 35, suggesting chronic CO2 retention. Negative COVID test. ? Your specific PATIENT CARE INSTRUCTIONS (what to do / when to return): [] Please continue to use your inhalers and romflumilast to help stay out of the hospital and decrease your risk for infections [] Please make sure to go to your new primary care appointment at [facility] on 05/30 tofollow up on your COPD and breathing [] Continue to take prednisone with the following regimen: 30mg or 6 pills for 3 days (05/26-05/28), 20mg or 4 pills for 3 days (05/29-05/31), then 15mg or 3 pills daily [] Please make sure to attend your water mangle tender appointment on 07/11 to discuss alternative therapies for your COPD [] AVOID TOBACCO USE TO PREVENT FURTHER WORSENING OF LUNG DISEASE [] Discuss with your PCP further methods of pain control [] Return to the ED if you develop a fever of >101 for 2-3 days, lethargy, confusion, increased work of breathing. ? MEDICATIONS (what medications you should start (or stop) taking): [] Prednisone [] Hydromorphone 4mg every 4 hours as needed for pain Post Discharge Care Discharge ?05/25/23 11:54:00 EDT Results Discharge Labs BLOOD COUNT & DIFF WBC 14.0 k/mm3 (High)?? 05/25/2023 01:18 RBC 2.91 m/mm3 (Low)?? 05/25/2023 01:18 Hgb 7.8 Gm/dL (Low)?? 05/25/2023 01:18 Hct 25.9 % (Low)?? 05/25/2023 01:18 MCV 89.0 femtoliters ()?? 05/25/2023 01:18 MCH 26.8 pg (Low)?? 05/25/2023 01:18 MCHC 30.1 g/dL (Low)?? 05/25/2023 01:18 Platelet Count 403 k/mm3 ()?? 05/25/2023 01:18 RDW-SD 54.2 femtoliters (High)?? 05/25/2023 01:18 MPV 9.6 femtoliters ()?? 05/25/2023 01:18 Nucleated RBC (Automated) 0.0 #/100 WBC'S ()?? 05/25/2023 01:18 Abs. NRBC 0.0 k/mm3 ()?? 05/25/2023 01:18 Abs. Neut 9.6 k/mm3 (High)?? 05/23/2023 01:26 Abs. Lymph 0.6 k/mm3 (Low)?? 05/23/2023 01:26 Abs. [place] 1.0 k/mm3 ()?? 05/23/2023 01:26 Abs. Eo 0.0 k/mm3 ()?? 05/23/2023 01:26 Abs. Baso 0.0 k/mm3 ()?? 05/23/2023 01:26 Neut % 83.1 % (High)?? 05/23/2023 01:26 Lymph % 5.6 % (Low)?? 05/23/2023 01:26 [place] % 8.9 % ()?? 05/23/2023 01:26 Eos % 0.0 % ()?? 05/23/2023 01:26 Baso % 0.3 % ()?? 05/23/2023 01:26 Hemoglobin (POC) POC Cartridge 12.6 Gm/dL (Low)?? 05/22/2023 05:32 Hematocrit (POC) POC Cartridge 37 % (Low)?? 05/22/2023 05:32 Imm Gran 2.1 % ()?? 05/23/2023 01:26 Abs. Imm Gran 0.2 k/mm3 ()?? 05/23/2023 01:26 ?? CARDIAC Nt-Probnp 284 pg/mL (High)?? 05/22/2023 05:38 High Sensitivity Troponin (HSTnT) 23 ng/L (High)?? 05/22/2023 07:44 ?? CHEM GENERAL Sodium 141 mmol/L ()?? 05/25/2023 01:18 Potassium 4.1 mmol/L ()?? 05/25/2023 01:18 Chloride 95 mmol/L (Low)?? 05/25/2023 01:18 Bicarbonate Level 35 mmol/L (High)?? 05/25/2023 01:18 Anion Gap 11 ()?? 05/25/2023 01:18 Sodium (POC) POC Cartridge 137 mmol/L ()?? 05/22/2023 05:32 Potassium (POC) POC Cartridge 4.3 mmol/L ()?? 05/22/2023 05:32 Chloride (POC) POC Cartridge 91 mmol/L (Low)?? 05/22/2023 05:32 Glucose Level 151 mg/dL (High)?? 05/25/2023 01:18 Glucose (POC) POC Cartridge 116 (High)?? 05/22/2023 05:32 Glucose, POC 133 mg/dL (High)?? 05/22/2023 05:18 BUN 20 mg/dL ()?? 05/25/2023 01:18 BUN (POC) POC Cartridge 18 mg/dL ()?? 05/22/2023 05:32 Creatinine-Blood 0.5 mg/dL (Low)?? 05/25/2023 01:18 Creatinine (POC) POC Cartridge 0.6 mg/dL (Low)?? 05/22/2023 05:32 Estimated GFR Creatinine 111 ML/MIN/1.73 M2 ()?? 05/25/2023 01:18 Calcium 8.7 mg/dL ()?? 05/25/2023 01:18 Ionized Calcium (POC) POC Cartridge 1.13 mmol/L ()?? 05/22/2023 05:32 Magnesium 1.6 mg/dL ()?? 05/25/2023 01:18 Protein, Total 5.2 Gm/dL (Low)?? 05/23/2023 01:26 Albumin 3.3 Gm/dL (Low)?? 05/23/2023 01:26 AG Ratio 1.7 ()?? 05/23/2023 01:26 Alkaline Phosphatase 85 units/L ()?? 05/23/2023 01:26 Amylase 122 units/L (High)?? 05/23/2023 01:26 Lipase 33 units/L ()?? 05/23/2023 01:26 AST (SGOT) 18 units/L ()?? 05/23/2023 01:26 ALT (SGPT) 15 units/L ()?? 05/23/2023 01:26 Bilirubin, Total 0.2 mg/dL ()?? 05/23/2023 01:26 Lactate 1.1 mmol/L ()?? 05/22/2023 07:44 ? MISC. CHEMISTRY Hold Gel Top SPECIMEN DISCARDED AFTER 1 WEEK ()?? 05/22/2023 07:44 ? UA/URINALYSIS Appear/Color, Urine YELLOW ()?? 05/22/2023 07:40 Specific [place], Urine 1.024 ()?? 05/22/2023 07:40 pH, Urine 6.0 ()?? 05/22/2023 07:40 Albumin, Urine 1+ (Abnormal)?? 05/22/2023 07:40 Glucose, Urine NEGATIVE ()?? 05/22/2023 07:40 Ketones, Urine TRACE (Abnormal)?? 05/22/2023 07:40 Bilirubin, Urine NEGATIVE ()?? 05/22/2023 07:40 Hemoglobin, Urine NEGATIVE ()?? 05/22/2023 07:40 Nitrite, Urine NEGATIVE ()?? 05/22/2023 07:40 Leukocyte, Urine NEGATIVE ()?? 05/22/2023 07:40 Urobilinogen NORMAL mg/dL ()?? 05/22/2023 07:40 WBC's, Urine 3 /HPF ()?? 05/22/2023 07:40 RBC's, Urine NONE SEEN /HPF ()?? 05/22/2023 07:40 Bacteria SLIGHT HPF (Abnormal)?? 05/22/2023 07:40 Hyaline Cast 7 LPF (High)?? 05/22/2023 07:40 Amorphous Crystals SLIGHT /HPF ()?? 05/22/2023 07:40 Mucus SLIGHT /LPF ()?? 05/22/2023 07:40 Hold Urine Culture Testing available 48 hours from time of collection. ()?? 05/22/2023 07:40 ?? URINE OTHER Est Creatinine Clearance 112.92 mL/min ()?? 05/24/2023 03:42 ? VIROLOGY COVID-19 by RT-PCR NEGATIVE ()?? 05/22/2023 05:45 ? Microbiology ?? COVID-19 (Novel Coronavirus), Rapid PCR?? Completed?? Source: Nasal Body Site: Nose Collected Dt/Tm: 05/22/2023 05:19 Last Updated Dt/Tm: 05/22/2023 06:46 ? Imaging(s) ?Chest Portable ?? 05/22/2023 06:04??by William Wilson MD ?IMPRESSION: ?? COPD without evidence of superimposed pneumonia or pulmonary edema. ?CT Abd/Pelvis W/ IV Contrast Only ?? 05/22/2023 13:45??by William Wilson MD ?IMPRESSION: ?? 1. No evidence of acute pathology in the abdomen and pelvis. 2. Compression fracture at L1 vertebral body with mild decrease in height, slightly progressed since 11/13/2022. 3. Chronic changes as described above. ?Patient was seen and discussed with attending physician ??Dionte ?? Shun Rodriguez MD PGY-3 Medicine-Pediatrics Pager [phone] 40??minutes spent on discharge * Pia Rapp DO: PERFORM Event Display: Discharge/Transfer Note Hospital Authored Date: Attending Attestation: I have seen and evaluated this patient.?? I have discussed the case and its management with the resident and agree with the findings and plan as documented in the resident???s note. * Jessi Jane RN: PERFORM Event Display: Discharge/Transfer Note Hospital Authored Date: Nursing Discharge Note Entered On: 05/25/2023 13:12 EDT Performed On: 05/25/2023 13:11 EDT by Jessi Jane RN Nursing Discharge Note 2 Discharge Time : 05/25/2023 13:10 EDT Discharge Level of Care at Discharge : Home/Senior Care/Foster Care Patient Left Unit Via : Ambulance Patient Accompanied Off Unit with : Ambulance/Chair Van Personnel Handover Given to Transport Personnel : Yes DC Instructions Provided & Signed by Pt : Yes Patient Understands D/C Instructions : Yes Patient Instructions Discharge Signed : Yes Did Pt have Specialty Bed or Wound Vac : No Jessi Jane RN - 05/25/2023 13:11 EDT * Jessi Jane RN: PERFORM Event Display: Patient Education/Instruction Authored Date: Inpatient Adult Discharge Instructions [address] [address] Name: ANT VARMA : 1955 Visit: 05/22/2023 06:23:00 Current Date: 05/25/2023 12:15 Account: [id number] Inpatient Adult Discharge Instructions We would like [...] and their families. Surveys are administered by [employer] ?? If further treatment with your primary care physician or another doctor is recommended, it is important for you to keep the appointment. Call your primary care physician or return to the Emergency Department immediately if your condition worsens, fails to improve, or new symptoms develop. If you need to find a doctor, you can call [facility] for a referral at [phone] or toll free at [phone] or log in to [email or web address].. ?? You can view and manage your care through the patient portal or by using a health care lore of your choosing. [employer] is a website that allows you to securely view your medical information including your hospital discharge summary, office visit summaries, medications and follow-up visits. You can also request appointments, renew medications, and request access to your medical information using a health care lore of your choosing, or just ask a question. You can enroll at [email or web address] or register during your next office visit. You have been discharged from [facility], Patient Care Unit: S3. If you have any questions regarding these instructions after you leave, please call us and we will be happy to assist you. [facility] Your Care Team Attending Physician Pia Rapp DO Discharging Providers Shun Rodriguez MD Reason for Admission acute shortness of breath and hypoxia Your Diagnosis COPD exacerbation Acute hypoxemic respiratory failure KENENDI on CPAP Tobacco dependence Pulmonary cachexia due to COPD Tests Performed Below is a partial list of the tests performed during your hospitalization. You may have had other tests and procedures not included in this list. Please discuss all test results with your provider. AMYLASE Basic Metabolic Panel BUN POC CARTRIDGE CALCIUM IONIZED POC CART CBC CBC w/ Differential CHLORIDE POC CARTRIDGE Comprehensive Metabolic Panel COVID-19 (Novel Coronavirus), Rapid PCR CREATININE POC CARTRIDGE GLUCOSE POC GLUCOSE POC CARTRIDGE HEMATOCRIT POC CARTRIDGE HEMOGLOBIN POC CARTRIDGE High??Sensitivity??Troponin T HOLD GEL TUBE Lactate Level LIPASE Magnesium Level POTASSIUM POC CARTRIDGE ProBNP SODIUM POC CARTRIDGE Troponin T, High Sensitivity Urinalysis w/hold for Urine Culture CT Abd/Pelvis W/ IV Contrast Only XR Chest Portable Primary Care Provider Jorge Garcia III, MD Advance Directive Health Care Proxy on File Yes - Health Care Proxy Yes - MOLST Discharge Vitals Temperature: 97.7 DegF Height: 182.88 cm Pulse Rate: 79 bpm Weight: 54.2 kg Respiratory Rate: 18 br/min Body Mass Index:??16.21 kg/m2??Low Systolic Blood Pressure: 136 mm Hg Body surface area: 1.66 Diastolic Blood Pressure: 80 mm Hg ?? Oxygen Saturation:??93 %??Low ?? Studies Pending All tests and labs ordered during this hospital stay have been completed unless listed below. Please discuss all pending results with your provider listed above in these instructions. ?? Add On Lab Order Blood Culture Blood Culture #2 What to do next Instructions From Your Doctor DIAGNOSIS: Acute on chronic hypoxic respiratory failure, acute COPD exacerbation ? TEST RESULTS: Last bicarb 35, suggesting chronic CO2 retention. Negative COVID test. ? Your specific PATIENT CARE INSTRUCTIONS (what to do / when to return): [] Please continue to use your inhalers and romflumilast to help stay out of the hospital and decrease your risk for infections [] Please make sure to go to your new primary care appointment at [facility] on 05/30 tofollow up on your COPD and breathing [] Continue to take prednisone with the following regimen: 30mg or 6 pills for 3 days (05/26-05/28), 20mg or 4 pills for 3 days (05/29-05/31), then 15mg or 3 pills daily [] Please make sure to attend your water mangle tender appointment on 07/11 to discuss alternative therapies for your COPD [] AVOID TOBACCO USE TO PREVENT FURTHER WORSENING OF LUNG DISEASE [] Discuss with your PCP further methods of pain control [] Return to the ED if you develop a fever of >101 for 2-3 days, lethargy, confusion, increased work of breathing. ? MEDICATIONS (what medications you should start (or stop) taking): [] Prednisone [] Hydromorphone 4mg every 4 hours as needed for pain Discharge Orders Scheduled Follow-Up Appointments Tuesday 10:20 AM EDT ?? With: Amaya Fallon NP Where: [place] [address]- Status: Pending Tuesday 1:00 PM EDT ?? With: Amaya Fallon NP Where: Primary Care [address] [address]- Status: Pending Tuesday 9:00 AM EDT ?? With: Stevenson Plascencia DO Where: [facility] [address] [place] [id number]- Status: Pending You Need to Schedule the Following Appointments Follow Up with??primary care When:??Within 5 to 7 days Why: Already scheduled for new patient visit with Leeanne FREEMAN on 05/30 Discharge Medications ANT VARMA :1955 Visit Date:05/22/2023 Medications: Please continue your medications until treatment is completed or stopped by your provider. Medications not listed below should be discontinued. Discuss any questions related to medications with your provider. What How Much When Instructions Next Dose New Hydromorphone (Dilaudid 4 mg oral tablet) 1 tab(s) Oral Every 4 hours as needed for Pain , Severe Do not take if very sedated, confused. ?? Pickup at [facility] last needed, last dose 1230 Changed PredniSONE (predniSONE 10 mg oral tablet) 3 tab(s) Oral Daily Pickup at [place] [address] 05/26 AM Unchanged Acetaminophen (acetaminophen 325 mg oral tablet) 2 tab(s) Oral Every 4 hours as needed for as needed for fever as needed Unchanged Albuterol (albuterol 0.042% inhalation solution) 3 Milliliter Nebulized inhalation Every 4 hours last dose 10am Unchanged Albuterol (albuterol 90 mcg/ inh inhalation powder) 2 puff(s) Inhalation Every 4 hours as needed for as needed as needed Unchanged apixaban (Eliquis 5 mg oral tablet) 1 tab(s) Oral Twice a day Duration: 30 Days 05/25 PM Unchanged Aspirin (aspirin 81 mg oral capsule) 1 capsule Oral Daily 05/26 AM Unchanged Atorvastatin (atorvastatin 80 mg oral tablet) 1 tab(s) Oral Daily 05/26 AM Unchanged Budesonide-Formoterol (Symbicort 160mcg/ 4.5mcg Inhaler) 2 puff(s) Inhalation Twice a day 05/25 PM Unchanged Dicyclomine (dicyclomine 10 mg oral capsule) 1 capsule Oral 4 times a day 05/25 2pm Unchanged Duloxetine (duloxetine 60 mg oral enteric coated capsule) 1 capsule Oral Twice a day 05/25 PM Unchanged Gabapentin (gabapentin 300 mg oral capsule) 2 capsule Oral 3 times a day 05/25 PM Unchanged Guaifenesin/ Dextromethorphan (Robitussin DM Liquid) 5 Milliliter Oral Every 6 hours as needed for Cough as needed Unchanged HydrOXYzine (hydrOXYzine hydrochloride 10 mg oral tablet) 1 tab(s) Oral 3 times a day as needed for Anxiety as needed Unchanged Isosorbide Dinitrate (isosorbide dinitrate 30 mg oral tablet) 1 tab(s) Oral Twice a day 05/25 PM Unchanged Loperamide (loperamide 2 mg oral capsule) 1 capsule Oral Every 4 hours as needed for for loose stool as needed Unchanged Melatonin 10 Milligram Oral Daily at Bedtime as needed for as needed for sleep as needed Unchanged Metoprolol (Metoprolol Succinate ER 25 mg oral tablet, extended release) 1 tab(s) Oral Daily 05/26 AM Unchanged nalOXONE (Narcan 4 mg/ 0.1 mL nasal spray) See instructions If concern for opioid overdose. Gently insert the tip of the nozzle into one nostril, until your fingers on either side of the nozzle are against the bottom of the person's nose. Press the plunger firmly to give the dose of NARCAN Nasal [place]. Remove the NARCAN Nasal [place] from the nostril after giving the dose. Get emergency medical help right away. ?? emergencies Unchanged Pantoprazole (pantoprazole 40 mg oral delayed release tablet) 1 tab(s) Oral Daily 29 AM Unchanged roflumilast (roflumilast 500 mcg oral tablet) 1 tab(s) Oral Daily 05/26 AM Unchanged Sodium Chloride Nasal ([place] Saline 0.65% nasal gel) 1 spray(s) Nares, Both 4 times a day as needed Unchanged Sodium Chloride Nasal (sodium chloride 0.65% nasal spray) 1 spray(s) Nares, Both 5 times a day dryness ?? as needed Unchanged Thiamine (Vitamin B1 100 mg oral tablet) 1 tab(s) Oral Daily 05/26 AM Unchanged umeclidinium (Incruse Ellipta 62.5 mcg/ inh inhalation powder) 1 puff(s) Inhalation Every 24 hours 05/26 AM Pharmacy Information [facility] 3: [address], [place] [id number] [phone] Test Results Below is a partial list of the most recent Laboratory test results done prior to this discharge. You may have had other tests and procedures not included in this list. Please discuss all test resultswith your provider. Est Creatinine Clearance - 112.92 mL/min (05/24/2023) AMYLASE (05/23/2023) ???Amylase - 122 units/L Basic Metabolic Panel (05/25/2023) ???Sodium - 141 mmol/L???Potassium - 4.1 mmol/L???Chloride - 95 mmol/L???Bicarbonate Level - 35 mmol/L???Anion Gap - 11???Glucose Level - 151 mg/dL???BUN - 20 mg/dL???Creatinine-Blood - 0.5 mg/dL???Estimated GFR Creatinine - 111 ML/MIN/1.73 M2???Calcium - 8.7 mg/dL BUN POC CARTRIDGE (05/22/2023) ???BUN (POC) POC Cartridge - 18 mg/dL CALCIUM IONIZED POC CART (05/22/2023) ???Ionized Calcium (POC) POC Cartridge - 1.13 mmol/L CBC (05/25/2023) ???WBC - 14.0 k/mm3???RBC - 2.91 m/mm3???Hgb - 7.8 Gm/dL???Hct - 25.9 %???MCV - 89.0 femtoliters???MCH - 26.8 pg???MCHC - 30.1 g/dL???Platelet Count - 403 k/mm3???RDW-SD - 54.2 femtoliters???MPV - 9.6 femtoliters???Nucleated RBC (Automated) - 0.0 #/100 WBC'S???Abs. NRBC - 0.0 k/mm3 CBC w/ Differential (05/23/2023) ???WBC - 11.5 k/mm3???RBC - 3.17 m/mm3???Hgb - 8.6 Gm/dL???Hct - 29.2 %???MCV - 92.1 femtoliters???MCH - 27.1 pg???MCHC - 29.5 g/dL???Platelet Count - 448 k/mm3???RDW-SD - 58.1 femtoliters???MPV - 9.1 femtoliters???Nucleated RBC (Automated) - 0.0 #/100 WBC'S???Abs. NRBC - 0.0 k/mm3???Abs. Neut - 9.6 k/mm3???Abs. Lymph - 0.6 k/mm3???Abs. [place] - 1.0 k/mm3???Abs. Eo - 0.0 k/mm3???Abs. Baso - 0.0 k/mm3???Neut % - 83.1 %???Lymph % - 5.6 %???[place] % - 8.9 %???Eos % - 0.0 %???Baso % - 0.3 %???Imm Gran - 2.1 %???Abs. Imm Gran - 0.2 k/mm3 CHLORIDE POC CARTRIDGE (05/22/2023) ???Chloride (POC) POC Cartridge - 91 mmol/L Comprehensive Metabolic Panel (05/23/2023) ???Sodium - 141 mmol/L???Potassium - 4.6 mmol/L???Chloride - 96 mmol/L???Bicarbonate Level - 36 mmol/L???Anion Gap - 9???Glucose Level - 117 mg/dL???BUN - 24 mg/dL???Creatinine-Blood - 0.7 mg/dL???Estimated GFR Creatinine - 101 ML/MIN/1.73 M2???Calcium - 9.1 mg/dL???Protein, Total - 5.2 Gm/dL???[place] min - 3.3 Gm/dL???AG Ratio - 1.7???Alkaline Phosphatase - 85 units/L???AST (SGOT) - 18 units/L???ALT (SGPT) - 15 units/L???Bilirubin, Total - 0.2 mg/dL COVID-19 (Novel Coronavirus), Rapid PCR (05/22/2023) ???COVID-19 by RT-PCR - NEGATIVE CREATININE POC CARTRIDGE (05/22/2023) ???Creatinine (POC) POC Cartridge - 0.6 mg/dL GLUCOSE POC (05/22/2023) ???Glucose, POC - 133 mg/dL GLUCOSE POC CARTRIDGE (05/22/2023) ???Glucose (POC) POC Cartridge - 116 HEMATOCRIT POC CARTRIDGE (05/22/2023) ???Hematocrit (POC) POC Cartridge - 37 % HEMOGLOBIN POC CARTRIDGE (05/22/2023) ???Hemoglobin (POC) POC Cartridge - 12.6 Gm/dL High??Sensitivity??Troponin T (05/22/2023) ???High Sensitivity Troponin (HSTnT) - 30 ng/L HOLD GEL TUBE (05/22/2023) ???Hold Gel Top - SPECIMEN DISCARDED AFTER 1 WEEK Lactate Level (05/22/2023) ???Lactate - 1.1 mmol/L LIPASE (05/23/2023) ???Lipase - 33 units/L Magnesium Level (05/25/2023) ???Magnesium - 1.6 mg/dL POTASSIUM POC CARTRIDGE (05/22/2023) ???Potassium (POC) POC Cartridge - 4.3 mmol/L ProBNP (05/22/2023) ???Nt-Probnp - 284 pg/mL SODIUM POC CARTRIDGE (05/22/2023) ???Sodium (POC) POC Cartridge - 137 mmol/L Troponin T, High Sensitivity (05/22/2023) ???High Sensitivity Troponin (HSTnT) - 23 ng/L Urinalysis w/hold for Urine Culture (05/22/2023) ???Appear/Color, Urine - YELLOW???Specific [place], Urine - 1.024???pH, Urine - 6.0???Albumin, Urine - 1+???Glucose, Urine - NEGATIVE???Ketones, Urine - TRACE???Bilirubin, Urine - NEGATIVE???Hemoglobin, Urine - NEGATIVE???Nitrite, Urine - NEGATIVE???Leukocyte, Urine - NEGATIVE???Urobilinogen - NORMAL???WBC's, Urine - 3 /HPF???RBC's, Urine - NONE SEEN???Bacteria - SLIGHT???Hyaline Cast - 7 LPF???Amorphous Crystals - SLIGHT???Mucus - SLIGHT???Hold Urine Culture - Testing available 48 hours from time of collection. Allergies (NKA means No Known Allergies) Toradol??(Morphine [...] Metabolic alkalosis?? Multiple fractures of ribs?? Old DC (myocardial infarction) X 3?? old Rib fractures, right 3-8?? Pulmonary cachexia due to COPD?? PVD (peripheral vascular disease)?? Smoking greater than 40 pack years?? Tobacco dependence?? Underweight?? Education Materials Below is the list of Educational Leaflet Providered with your Discharge Instructions. Chronic Lung Disease:??Controlling Stress?? Chronic Lung Disease: Tips for Quitting Smoking?? Chronic Lung Disease: Preventing Lung Infections?? Chronic Lung Disease: Helping with Treatment, For Caregivers?? Medicines for Chronic Obstructive??Pulmonary Disease (COPD)?? Valuables and Belongings I fully understand and agree that [facility] accepts no responsibility for all my [...] witness Date for Pt to Sign Valuables/Belongings: 05/25/23 10:20:00 ?? Other Discharge Information ? Case Management Discharge Plan?? Discharge Plan?? Discharge Level of Care at Discharge: Home/Senior Care/Foster Care ?? Pulmonary Rehab Status?? Pulmonary Rehab Discharge Status?? CPAP/BiPAP Mask Type: Full CPAP/BiPAP Mask Size: Large Respiratory Rate: 18 br/min ? Common Emergency [...] of these heart attack warning signs, call 9-1-1 to get immediate medical attention! ?? Smoking can increase your chances of developing chronic health problems and can cause harmful effects to other family members in your house. If you smoke, you are strongly encouraged to quit. Please call [facility] at [phone] or [phone] ([phone]) or log in to [email or web address] for referrals to smoking cessation programs. ?? 431 Suicide & Crisis Lifeline is available 20/06 if you or someone you know needs to find a reason to keep living. By calling 440 you'll be connected to a skilled, trained counselor at a crisis center in your area. INPATIENT DISCHARGE INSTRUCTIONS SIGNATURE PAGE KOJOANT JUNG Location:[facility] Registration Date and Time:05/22/2023 06:23 EDT Primary Care Physician: Jose LEE MD, Jorge Tsang, Attending Physician: Pia Rapp DO, I ANT VARMA, have received the above patient education materials/instructions and have verbalized understanding. If ambulance or transport services are being used I further acknowledge being given a choice of service. ?? If you need to contact me, please call me at this number: . Patient/Scientist Engineer Name: Patient/Scientist Engineer Signature: Relationship to Patient: Witness Name/Signature: Date: * Shun Rodriguez MD: PERFORM Event Display: Patient Education Leaflets Authored Date: [id number] Chronic Lung Disease:??Controlling Stress ?? [address] Chronic Lung Disease:??Controlling Stress Stress and anxiety can make breathing harder. When it???s hard to breathe, it???s natural to get anxious and start to panic. This makes you even more short of breath. This sequence is known as the dyspnea cycle. It???s common among people with chronic lung disease. Talk with your healthcare provider about how you're feeling. It's important for them to understand what's going on and how it's affecting your life. Breathing training and coping methods can help you manage stress and anxiety. Understanding the cycle When you???re short of breath, your breathing muscles get tense. It???s hard to take a deep breath.You may worry that you???re not getting enough air. Then you start breathing faster. And you becomemore short of breath. You may even start to panic. This makes symptoms seem worse. Often, people with chronic lung disease try to prevent this cycle. They limit their activity, stay at home, and don't do anything that could cause shortness of breath. You don???t have to live this way.? Ways to relax When you find yourself getting stressed or anxious, make an effort to relax. Doing so will help break the dyspnea cycle. Sit in a quiet, comfortable place. Do pursed-lip and diaphragmatic breathing. You may also find these things helpful: ??? Activities that help you relax. These can include reading a good book, listening to music or relaxation tapes, practicing yoga or chava chi, meditating, and praying. Find things that work for you. ??? Visualization. Picture yourself in a peaceful place, suchas the beach. Feel the warm sand. Hear the waves. Smell the ocean. Doing this may help you feel more relaxed. ??? Medicines that can help make breathing easier. Your healthcare provider may advise using a bronchodilator along other relaxation methods. ?Tips To prevent shortness of breath from limiting your life: ??? Right now.??Learn to stop an attack with pursed-lip breathing, diaphragmatic breathing, and relaxation methods. If you don???t know how to do these, ask your healthcare provider. ??? In day-to-day life.??Learn to maximize your energy and to breathe during activity. This can help you do more. ??? Over time.??Start exercising. This can help your body start to handle more activity. ?? Last Reviewed Date: 2021 ?? 8721-5333 [employer]. All rights reserved. This information is not intended as a substitute for professional medical care. Always follow your healthcare professional's instructions. ?? * Shun Rodriguez MD: PERFORM Event Display: Patient Education Leaflets Authored Date: [id number] Chronic Lung Disease: Tips for Quitting Smoking ?? 89042 Chronic Lung Disease: Tips for Quitting Smoking Cigarette smoke damages lung tissue and irritates airways. This makes breathing harder. Smoking also damages tiny hairs??(cilia) in the airways. Then the cilia can???t do their job of clearing mucus,dirt, and germs from the lungs. It???s never too late to quit smoking. Your health will start to improve on the same day you put out your last cigarette. You don???t have to quit alone You may be more likely to quit for good if you get support from others. ??? Talk with your healthcare provider about your plans to quit. Ask about medicines that can help. Some contain nicotine and some don't. Some you can get by prescription.??You can??buy others [id number]. These medicines help control the desire to use tobacco. And they control symptoms that occur when people try to quit. Others??slowly reduce nicotine levels in the body.??Your provider can tell you about your choices such as: o Medicines taken by mouth (oral) such as bupropion or varenicline o Nicotine replacement therapy??such as gum, lozenge, a patch, inhaler, or nasal spray ??? Join a support group or get advice from an ex-smoker. ??? Ask other smokers in your home to quit with you.? Tips for quitting smoking There isn???t 1 right way to stop smoking. Everyone quits in their own way. Some of these tips may help: ??? Make a list of reasons you want to quit. Keep this list and read it often. ??? Pick a dateto quit smoking. Then stick to it. ??? List the things that make you want to smoke. Think of ways to stay away from these triggers. ??? Set goals for yourself. Try going for??1 week without smoking. Reward yourself when you meet your goals. ??? If you don???t quit the first time, keep trying! Many people have to try more than once before they stop smoking for good. ?? To learn more For more help, try these resources: ??? Find resources and live support to quit smoking at [employer] at https://[employer].gov/tools-tips/tlc-pmone-cixk/ymoie-vb-cr-expert ??? National Cancer [employer] Smoking Quitline: 831-57T-IRBY (728-144-4349) ?? Last Reviewed Date: 2021 ?? 3464-5133 [employer]. All rights reserved. This information is not intended as a substitute for professional medical care. Always follow your healthcare professional's instructions. ?? * Shun Rodriguez MD: PERFORM Event Display: Patient Education Leaflets Authored Date: [id number] Chronic Lung Disease: Preventing Lung Infections ?? 60112 Chronic Lung Disease: Preventing Lung Infections There are many types of chronic lung disease. You may have one of these: ??? Chronic obstructive lung disease (COPD) ??? Chronic bronchitis ??? Emphysema ??? Pulmonary fibrosis ??? Sarcoidosis When you have a chronic lung disease, it's important to protect yourself from respiratory infections. This includes colds, the flu, and lung infections such as pneumonia. Infections like these may cause your chronic lung disease to get worse. It's hard to fully escape getting sick. But there are things you can do to lower your risk of infections. Tips for preventing illness You can lower your risk of respiratory infections with these steps: ??? Keep your hands clean. Washyour hands often, including before and after eating, after using the bathroom, and after coughing, sneezing, or blowing your nose. If you can???t wash, use hand stapler coil unit that has at least 60% alcohol. Use it after touching doorknobs, handles, keypads, and anything else other people have touched. Then wash your hands as soon as you can. ??? Wash well. When you wash your hands, use soap and clean,running water. Rub your hands together well for at least 20 seconds. Be sure to wash the backs of your hands, between your fingers, and under your fingernails. Rinse them well. Dry your hands on clean towels or let them air-dry. ??? Don???t touch your face. If your hands aren???t clean, keep them away from your nose and mouth. Germs on your hands can get into your respiratory system this way. ???Get recommended vaccines. To help prevent the flu, get a flu shot every year. You may be able to get it at your healthcare provider's office, a drugstore, pharmacy, or at work. Get your flu shot as soon as the vaccines are available in your area. This is often around July each year. A pneumonia vaccine can also help prevent pneumococcal pneumonia. Talk with your healthcare provider about which vaccine you need, the number of doses, and when you should have them. The COVID-19 vaccine can help prevent serious illness from COVID-19. ??? Stay away from sick people. Try to stay away from people with colds or the flu. Stay away from crowded places during cold and flu season. This may includeshopping centers, movie theaters, and social events. ??? Quit smoking. If you smoke, talk with yourhealthcare provider about getting help to quit. Smoking can make your lung disease worse. And it increases your risk of infections. Also stay away from other people's smoke. This is called secondhandsmoke. It is also harmful and increases your chance of infections. ??? Wear a mask. Wearing a mask indoors can help prevent respiratory illnesses. Consider wearing a mask during cold and flu season if you are in crowded places. ?? Last Reviewed Date: 2022 ?? 1099-8265 [employer]. All rights reserved. This information is not intended as a substitute for professional medical care. Always follow your healthcare professional's instructions. ?? * Event Display: Provider Clarification Note Please click on pdf link to open report Patient Care team information Care Team Personnel Name: Glo Camarena RN Position: [facility] RN Member Role: Primary Care Nurse Name: Fatimah Bennett RN Position: [facility] RN Member Role: Primary Care Nurse Name: Mariely Hardy RN Position: [facility] RN Member Role: Primary Care Nurse Name: Marleen Uriarte RN Position: [facility] RN Member Role: Primary Care Nurse Name: Sydney Zelaya Position: [facility] SN Support Member Role: Lifetime Consulting Physician Name: Judd Barahona RN Position: [facility] RN Member Role: Primary Care Nurse Name: Mag Harry RN Position: [facility] RN Member Role: Primary Care Nurse Name: An Blount RN Position: [facility] RN Supv Member Role: Primary Care Nurse Name: Rebecca Whitley RN Position: [facility] RN Member Role: Primary Care Nurse Name: Marianna Ng RN Position: [facility] RN Member Role: Primary Care Nurse Name: Avani Odell RN Position: [facility] RN Member Role: Primary Care Nurse Name: Lisbet Hickman RN Position: [facility] RN Member Role: Primary Care Nurse Name: Ruben Bello RN Position: [facility] RN Member Role: Primary Care Nurse Name: Araceli Simon RN Position: [facility] RN Member Role: Primary Care Nurse Name: Judi Streeter RN Position: [facility] RN Member Role: Primary Care Nurse Name: Moni Dugan RN Position: [facility] RN Member Role: Primary Care Nurse Name: Jorge Garcia III, MD Position: Reference Physician Member Role: PCP Address: Address: [address] [place] [id number] Name: Misty Nguyen RN Position: [facility] RN Member Role: Primary Care Nurse Name: Joyce Cobb Position: [facility] RN Member Role: Primary Care Nurse Name: Sarwat Aj RN Position: [facility] RN Member Role: Primary Care Nurse Name: César Patel RN Position: [facility] RN Member Role: Primary Care Nurse Name: Cassi Batista RN Position: [facility] RN Member Role: Primary Care Nurse Name: Daija Huitron RN Position: [facility] RN Member Role: Primary Care Nurse Name: Ellis Mayfield RN Position: [facility] RN Supv Member Role: Primary Care Nurse Name: Ayah Robison RN Position: [facility] RN Member Role: Primary Care Nurse Name: Radha Moreno RN Position: [facility] RN Member Role: Primary Care Nurse Name: Jina Smalls RN Position: [facility] RN Member Role: Primary Care Nurse Name: Laura Clements RN Position: [facility] RN Member Role: Primary Care Nurse Name: Colette Syed RN Position: [facility] RN Member Role: Primary Care Nurse Name: Muriel Daley RN Position: [facility] RN Supv Member Role: Primary Care Nurse Name: Judith Rojas LPN Position: [facility] RN Member Role: Primary Care Nurse Name: Sydney Raza RN Position: [facility] RN Member Role: Primary Care Nurse Name: Rachna Renteria RN Position: [facility] RN Member Role: Primary Care Nurse Name: Zohreh Pink RN Position: [facility] RN Member Role: Primary Care Nurse Name: Sophie Berrios RN Position: [facility] RN Member Role: Primary Care Nurse Name: Grisel Mcgowan RN Position: [facility] RN Member Role: Primary Care Nurse Name: Uyen Mitchell RN Position: [facility] RN Member Role: Primary Care Nurse Name: Nasra Smith NP Position: Reference Physician Member Role: Primary Care Nurse Address: Address: [address] [place] [address] Name: Silas Knox RN Position: [facility] RN Member Role: Primary Care Nurse Name: Elham Lee RN Position: [facility] AMB Nurse Member Role: Primary Care Nurse Name: Dariana Mariee RN Position: [facility] RN Member Role: Primary Care Nurse Name: Ana María Cat RN Position: [facility] RN Member Role: Primary Care Nurse Name: Janet Pacheco RN Position: [facility] RN Member Role: Primary Care Nurse Name: Flor Holley Position: [facility] RN Member Role: Primary Care Nurse Name: Bret Aguirre RN Position: [facility] RN Member Role: Primary Care Nurse Name: Ghazal Moreno Position: [facility] RN Member Role: Primary Care Nurse Name: Audra Martinez RN Position: [facility] RN Member Role: Primary Care Nurse Name: Shahbaz Bobo RN Position: [facility] RN Member Role: Primary Care Nurse Name: Jennifer Yin LPN Position: [facility] RN Member Role: Primary Care Nurse Name: Alina Arce RN Position: [facility] RN Member Role: Primary Care Nurse Name: Judi Krueger RN Position: [facility] RN Member Role: Primary Care Nurse Name: Kasia Lund RN Position: [facility] RN Member Role: Primary Care Nurse Name: Rachna Serrano RN Position: [facility] RN Member Role: Primary Care Nurse Name: Naveen Villalobos RN Position: [facility] RN Member Role: Primary Care Nurse Name: Radha Masterson RN Position: [facility] RN Member Role: Primary Care Nurse Name: Landy Villarreal RN Position: [facility] RN Member Role: Primary Care Nurse Name: Adria Bell RN Position: [facility] RN Member Role: Primary Care Nurse Name: Amy Larios RN Position: [facility] RN Member Role: Primary Care Nurse Name: Indira Lindsey RN Position: [facility] SN RN Member Role: Primary Care Nurse Name: Rosa Elena Pope RN Position: [facility] RN Member Role: Primary Care Nurse Name: Florentino Garcia RN Position: [facility] RN Member Role: Primary Care Nurse Name: Cristel Moreno RN Position: [facility] RN Member Role: Primary Care Nurse Name: Rosa Elena De León RN Position: [facility] Hospital Financial Aids Officer Member Role: Primary Care Nurse Name: Nell Lagos RN Position: [facility] RN Member Role: Primary Care Nurse Name: Judi Hamilton RN Position: [facility] RN Member Role: Primary Care Nurse Name: Tulio Pina RN Position: [facility] RN Member Role: Primary Care Nurse Name: Maximiliano Claros RN Position: [facility] RN Member Role: Primary Care Nurse Name: Narda Barnes RN Position: [facility] RN Member Role: Primary Care Nurse Name: Zoë Cisse RN Position: [facility] RN Member Role: Primary Care Nurse Name: Pat Bowers RN Position: [facility] SN RN Member Role: Primary Care Nurse Name: Gemma Chavira RN Position: [facility] RN Member Role: Primary Care Nurse Name: Ruy Salcido RN Position: [facility] RN Member Role: Primary Care Nurse Name: Hilaria Aparicio RN Position: [facility] RN Member Role: Primary Care Nurse Name: Carly Rosado RN Position: [facility] RN Supadelaida Member Role: Primary Care Nurse Name: Taryn Rosado RN Position: [facility] RN Member Role: Primary Care Nurse Name: Syndey Rosado RN Position: [facility] RN Member Role: Primary Care Nurse Name: Magy Bar RN Position: [facility] RN Member Role: Primary Care Nurse Name: Uriel Dumont Position: [facility] RN Member Role: Primary Care Nurse Name: Selene Vazquez RN Position: [facility] RN Member Role: Primary Care Nurse Name: César Gerber RN Position: [facility] RN Member Role: Primary Care Nurse Name: Dariana Becerra RN Position: [facility] RN Member Role: Primary Care Nurse Name: Leyla Verma LPN Position: [facility] RN Member Role: Primary Care Nurse Name: Rody Mays RN Position: [facility] RN Member Role: Primary Care Nurse Name: Marielos Mixon RN Position: [facility] RN Member Role: Primary Care Nurse Name: Radha Flores RN Position: [facility] RN Member Role: Primary Care Nurse Name: Hipolito Giles RN Position: [facility] RN Member Role: Primary Care Nurse Name: Rose Kyle RN Position: [facility] Hospital Financial Aids Officer Member Role: Primary Care Nurse Name: Aimee Salamanca RN Position: [facility] RN Member Role: Primary Care Nurse Name: Jacobo Caceres Position: [facility] RN Member Role: Primary Care Nurse Name: Savanna PINK Attending Position: [facility] ED Medicine MD Name: Toshia Fall Position: [facility] ED [facility] Member Role: Gang Head Saw Operator Name: Alva Will Position: [facility] ED [facility] Member Role: Gang Head Saw Operator Name: Radha Branch Position: [facility] ED RN W/OE and Tasks Member Role: Patient Care Provider Care Team Related Persons Name: STEVENSON HAMM Address: [address] [address] Name: MELINA VARMA Address: home [place]KNOWN [facility] [place] [address] Name: GARRY VARMA Address: home [address] [place] [address] [place] [address]
--- OUTSIDE RECORDS SUMMARY | 2023-08-15 20:24 | XMS_ITS | Continuity of Care Document ---
Author Name Unknown Organization [facility] ter Address [address] [place] [id number]- Care Team Providers Care Social Media Community Manager Name Role Phone Jose LEE MD, Jorge Tsang Primary Care Physician Encounter [facility] Date(s): 02/26/22 - 03/04/[address] [address]- Encounter Diagnosis COPD with acute exacerbation(Final) - 02/26/22 Chronic foot pain(Final) - 02/26/22 Discharge Disposition: A-D/C Home Attending Physician: Jonny Ardon MD Admitting Physician: Ludwin Suh MD Referring Physician: Not on Staff, Referring MD Allergies, Adverse Reactions, Alerts Substance Reaction Severity Status Toradol hives Active Skelaxin H/O: migraine Active naproxen lesions on lips Active morphine 1 itch Active Keflex rash Active : Can tolerate [...] mL, 6 Refills, Maintenance, 07/24/20 16:44:00 EDT, [facility]/pharmacy #[id number], 182, cm, 05/26/20 16:01:00 EDT, Height, 67, kg, 07/05/20 13:57:00 EDT, Dry Weight Start Date: 07/24/20 Status: Ordered albuterol CFC free 90 mcg/inh inhalation aerosol 2, puffs, Inhalation, Every 6 hours, PRN, j44.9, # 1 each, Refills 6, Tot. Refills 6, Maintenance, 07/24/20 16:44:00 EDT, Aerosol, Route to Pharmacy Electronically, [id number], [facility]/pharmacy #[id number], 182, cm, 05/26/20 16:01:00 E... [...] 4 hours, PRN as needed for pain, for 5 days, # 24 tablet, 0 Refills, Acute 03/09/22 9:37:00 EDT, 03/04/22 9:37:00 EDT, Tablet, [facility]/pharmacy #[id number], Partial fill upon patient request if the prescription is for a schedule... Start Date: 03/04/22 Stop Date: 03/09/22 Status: Ordered duloxetine 60 mg oral enteric [...] Start Date: 09/16/21 Status: Ordered Gabapentin = 400 mg, By Mouth, 3 times a day, 0 Refills, Maintenance, 10/07/21 17:38:00 EST, Partial fill uponpatient request if the prescription is for a schedule II opioid drug. Start Date: 10/07/21 Status: Ordered gabapentin 300 mg oral capsule 600 mg, Capsule, By Mouth, 03/04/22 9:00:00 EDT Start Date: 03/04/22 Stop Date: 03/04/22 Status: Completed HYDROmorphone 2 mg oral tablet 2 mg, Tablet, By Mouth, Every 4 hours, PRN for Pain , Moderate, Routine, 03/02/22 15:29:00 EDT Start Date: 03/02/22 Stop Date: 03/04/22 Status: Discontinued Incruse Ellipta 62.5 mcg/inh inhalation powder 1 each, Inhalation, Every 24 hours, doses should be taken at least 24 hours apart, j44.9, # 1 each,6 Refills, Maintenance, 08/13/20 16:33:00 EDT, Powder, [facility]/pharmacy #[id number], 182, cm, 05/26/20 16:01:00 EDT, [...] oral tablet 2.5 mg, Tablet, By Mouth, 03/04/22 9:00:00 EDT Start Date: 03/04/22 Stop Date: 03/04/22 Status: Completed loperamide 2 mg oral capsule [...] opioid drug. Start Date: 10/07/21 Status: Ordered nicotine 2 mg oral transmucosal gum 1 each = 2 mg, Chew, Every 2 hours, PRN as needed for smoking cessation, # 160 each, 0 Refills, Maintenance, 11/01/21 10:44:00 EST, Gum, [facility]/pharmacy #[id number], Partial fill upon patient request if the prescription is for a schedule II opioid drug., 182.8... Start Date: 11/01/21 Status: Ordered pantoprazole 40 mg oral delayed release tablet 1 tablet = 40 mg, By Mouth, Daily in AM, # 30 tablet, 0 Refills, Maintenance, 10/07/21 17:39:00 EST, EC Tablet Start Date: 10/07/21 Status: Ordered predniSONE 10 mg oral tablet 1.5, By Mouth, Daily, # 30 tablet, 0 Refills, Maintenance, 02/15/22 10:30:00 EDT, Tablet, [facility]/pharmacy #[id number], Partial fill upon patient request if the prescription is for a schedule II opioid drug., 182, cm, 01/27/22 7:59:00 EST, Height, 61, kg, 12... Start Date: 02/15/22 Stop Date: 03/17/22 Status: Ordered Symbicort 160mcg/4.5mcg Inhaler 2, puffs, Inhalation, 2 times a day, # 10.2 Gm, Refills 0, Maintenance, 03/08/19 9:01:22 EDT, Aerosol Start Date: 03/08/19 Status: Ordered Toprol XL 25 mg oral tablet, extended release 25, mg, 1, tablet, By Mouth, Daily, 30, tablet, 6, 6, 03/31/07 11:15:26, Print MARTIN Number, [facility], [address] [place] [id number], [id number], Constant Indicator Start Date: 03/31/07 Stop Date: 10/27/07 Status: Ordered Toprol XL 25 mg oral tablet, extended release 25 mg, XL Tablet, By Mouth, 03/04/22 9:00:00 EDT Start Date: 03/04/22 Stop Date: 03/04/22 Status: Completed Problem List Condition Effective Dates Status Health [...] Multiple fractures of ribs(Confirmed) 01/06/11 Active [place] (myocardial infarctio n) X 3(Confirmed) Active PVD (peripheral vascular disease)(Confirmed) Active Underweight(Confirmed) Active 1Cardiac stents 1991, 1995 Results Radiology Reports * Exam Date Time Procedure Performing Provider Status 02/26/22 3:11 PM Chest Portable Cody , Raymondeileen; Auth (Ve rified) Notes: (Chest Portable) Reason For Exam: Shortness of Breath RESULT: Chest Portable Chest Portable Hx of Present Illness: from home, sob, with diarrhea, hx of copd, wears home o2 3l , audible rhonchi; Reason: Shortness of Breath; Clinical Question(s): CHF COMPARISON: 02/06/2022 FINDINGS: LINES AND TUBES: None. LUNGS AND PLEURA: Lungs are hyperaerated with mild flattening of both hemidiaphragms. There is generalized coarseningof interstitial markings with diminished peripheral markings similar to the previous examination. Lungs are otherwise clear. No pleural effusion. No pneumothorax. HEART, MEDIASTINUM AND MAMADOU: Heart is normal in size. Normal upper mediastinal and hilar contour. BONES AND SOFT TISSUES: No acute abnormality. Status post ORIF of 3 right rib fractures. IMPRESSION: No acute disease. COPD with emphysematous changes bilaterally. Status post ORIF of 3 right rib fractures. WSN: [id number] Ordering Physician: Marci Carmona Dictated By: Judd Anthony MD Dictated Date/Time: 02/26/22 4:08 pm Reviewed By: Judd Anthony MD Signed By: Judd Anthony MD Signed Date/Time: 02/26/22 4:08 pm Transcribed By: BERENICE Transcribed Date/Time: 02/26/22 4:05 pm Vital Signs Most recent to oldest [Reference Range]: 1 2 3 Height 183 cm (03/04/22 4:53 AM) 183 cm (03/03/22 8:26 PM) 183 cm (03/03/22 2:29 PM) Weight 54.6 kg (02/26/22 9:17 PM) 54.6 kg (02/26/22 9:11 PM) Oxygen Saturation [94-100 %] 97 % (03/04/22 4:53 AM) 99 % (03/03/22 8:26 PM) 100 % (03/03/22 2:29 PM) Pulse Rate [55-90 bpm] 84 bpm (03/04/22 9:21 AM) 88 bpm (03/04/22 4:53 AM) 73 bpm (03/03/22 8:26 PM) Body Mass Index [18.5-24.99] 16.3 *L* (02/26/22 9:17 PM) 16.3 *L* (02/26/22 9:11 PM) Blood Pressure [90-138/55-84 mm Hg] 134/64mm Hg (03/04/22 9:22 AM) 134/64mm Hg (03/04/22 9:21 AM) 123/70mm Hg (03/04/22 4:53 AM) Respiratory Rate [16-30 br/min] 16 br/min (03/04/22 9:20 AM) 17 br/min (03/04/22 7:19 AM) 16 br/min (03/04/22 4:53 AM) Temperature [96.8-100.4 DegF] 97.4 DegF (03/04/22 4:53 AM) 97.7 DegF (03/03/22 8:26 PM) 98.8 DegF (03/03/22 2:29 PM) Liters per Minute 3 L/min (03/04/22 4:53 AM) 3 L/min (03/03/22 8:26 PM) 4 L/min (03/03/22 2:29 PM) Mode of Delivery (Oxygen) Nasal cannula (03/04/22 4:53 AM) Nasal cannula (03/03/22 8:26 PM) Nasal cannula (03/03/22 2:29 PM) Blood pressure sites Arm, right (03/04/22 4:53 AM) Arm, left (03/03/22 8:26 PM) Arm, right (03/03/22 2:29 PM) Temperature Route Oral (03/04/22 4:53 AM) Oral (03/03/22 8:26 PM) Oral (03/03/22 2:29 PM) Dry Weight 54.6 kg (02/26/22 9:17 PM) Weight Obtained Via Bed scale (02/26/22 9:11 PM) Social History Social History Type Response Tobacco Use: 4 or less cigar ettes(less than 1/4 pack)/day in last 30 days. Sex
--- OUTSIDE RECORDS SUMMARY | 2023-08-15 20:24 | XMS_ITS | Continuity of Care Document ---
Author Name Unknown Organization [facility] Address [address] [place] [address]- Care Team Providers Care Arc Cutter Plasma Arc Name Role Phone Jose LEE MD, Jorge Tsang Primary Care Physician Encounter [facility] [facility] [place] [id number] Date(s): 12/24/22 - 01/23/23 [facility] [address] [place], [place] [address] Attending Physician: Admtr, Anabel Admitting Physician: Admtr, Ar8 Referring Physician: Admtr, Ar8 Allergies, Adverse Reactions, Alerts Substance Reaction Severity Status naproxen lesions on lips Active Toradol Morphine allergy Metaxalone Naproxen Cephalexin allergy hives Persistent Mild Active Keflex 1 rash Active Skelaxin H/O: migraine Active 1tolerates pip/tazo 11/17 Immunizations Given and Recorded Vaccine Date Status Refusal Reason [id number] 12y+ bivalent booster vax 08/23/22 Recorded SARS-CoV-2 [...] 0 Refills, Maintenance, 07/16/22 12:59:00 EDT, Tablet, [facility]/pharmacy #[id number], Partial fill upon patient request [...] needed for pain, for 3 days, # 18 tablet, 0 Refills, Acute 01/24/23 10:45:00 EST, 01/21/23 10:45:00 EST, Tablet, Partial fill upon patient request if the prescription is for a schedule II opioid drug. Start Date: 01/21/23 Stop Date: 01/24/23 Status: Ordered docusate sodium 100 mg oral capsule 1 capsule = 100 mg, By Mouth, Daily, PRN constipation Start Date: 04/27/22 Status: Ordered Duloxetine = 60 mg, By Mouth, 2 times a day, 0 Refills, Maintenance, 07/03/22 0:08:00 EDT, Partial fill upon patient request if the prescription is for a schedule II opioid drug. Start Date: 07/03/22 Status: Ordered Enoxaparin 0.6 mL = 60 mg, Subcutaneous Injection, Every 12 hours, Stop Once INR>2.0 on COumadin, 0 Refills, Maintenance, 01/21/23 10:47:00 EST, Injection, Partial fill upon patient request if the prescription is for a schedule II opioid drug. Start Date: 01/21/23 Status: Ordered ferrous sulfate 325 mg oral [...] 30 DAYS Start Date: 07/02/22 Status: Ordered Santyl 250 u/gm ointment 1 [...] fractures of ribs Confirmed 01/06/11 Active Old [place] (myocardial infarction) X 3 Confirmed Active PVD [...] Care Nurse Name: Fatimah Bennett RN Position: [facility] RN Member Role: Primary Care Nurse Name: Mariely Hardy RN Position: [facility] RN Member Role: Primary Care Nurse Name: Marleen Uriarte RN Position: [facility] RN Member Role: Primary Care Nurse Name: Sydney Zelaya Position: [facility] PCO OFFICE STAFF Member Role: Lifetime Consulting Physician Name: Judd Barahona RN Position: [facility] RN Member Role: Primary Care Nurse Name: Mag Harry RN Position: [facility] RN Member Role: Primary Care Nurse Name: An Blount RN Position: [facility] RN Supv Member Role: Primary Care Nurse Name: Marianna Ng RN Position: [facility] SN RN Member Role: Primary Care Nurse Name: Avani Oedll RN Position: [facility] RN Member Role: Primary Care Nurse Name: Lisbet Hickman RN Position: [facility] RN Member Role: Primary Care Nurse Name: Ruben Bello RN Position: [facility] RN Member Role: Primary Care Nurse Name: Araceli Simon RN Position: [facility] RN Member Role: Primary Care Nurse Name: Moni Dugan RN Position: [facility] RN Member Role: Primary Care Nurse Name: Jorge Garcia III, MD Position: [facility] Ambulatory (view) Member Role: PCP Address: Address: [address] [place] [id number] Name: Misty Nguyen RN Position: [facility] RN Member Role: Primary Care Nurse Name: Joyce Cobb Position: [facility] RN Member Role: Primary Care Nurse Name: Sarwat Aj RN Position: [facility] RN Member Role: Primary Care Nurse Name: Cassi Batista RN Position: [facility] RN Member Role: Primary Care Nurse Name: Yanni Holland RN Position: [facility] RN Member Role: Primary Care Nurse Name: Daija Huitron RN Position: [facility] RN Member Role: Primary Care Nurse Name: Ellis Mayfield RN Position: [facility] RN Supv Member Role: Primary Care Nurse Name: Ayah Robison RN Position: [facility] RN Member Role: Primary Care Nurse Name: Kirstin Enriquez RN Position: [facility] RN Member Role: Primary Care Nurse Name: Radha Moreno RN Position: [facility] RN Member Role: Primary Care Nurse Name: Jina Smalls RN Position: [facility] RN Member Role: Primary Care Nurse Name: Laura Clements RN Position: [facility] RN Member Role: Primary Care Nurse Name: Colette Syed RN Position: [facility] RN Member Role: Primary Care Nurse Name: Muriel Daley RN Position: [facility] RN Supv Member Role: Primary Care Nurse Name: Rachna Renteria RN Position: [facility] RN Member Role: Primary Care Nurse Name: Zohreh Pink RN Position: [facility] RN Member Role: Primary Care Nurse Name: Sophie Berrios RN Position: [facility] RN Member Role: Primary Care Nurse Name: Grisel Mcgowan RN Position: [facility] RN Member Role: Primary Care Nurse Name: Uyen Mitchell RN Position: [facility] RN Member Role: Primary Care Nurse Name: Nasra Smith RN Position: [facility] PCO w/OE and EZ Script Member Role: Primary Care Nurse Name: Cindy Grullon RN Position: [facility] RN Supv Member Role: Primary Care Nurse Name: Silas Knox RN Position: [facility] RN Member Role: Primary Care Nurse Name: Elham Lee RN Position: [facility] PCO RN Member Role: Primary Care Nurse Name: Dariana Mariee RN Position: [facility] RN Member Role: Primary Care Nurse Name: Ana María Cat RN Position: [facility] RN Member Role: Primary Care Nurse Name: Flor Holley Position: [facility] RN Member Role: Primary Care Nurse Name: Bret Aguirre RN Position: [facility] RN Member Role: Primary Care Nurse Name: Ghazal Moreno Position: [facility] RN Member Role: Primary Care Nurse Name: Audra Martinez RN Position: [facility] RN Member Role: Primary Care Nurse Name: Shahbaz Bobo RN Position: [facility] RN Member Role: Primary Care Nurse Name: Jennifer Yin LPN Position: [facility] RN Member Role: Primary Care Nurse Name: Alina Arce RN Position: [facility] RN Member Role: Primary Care Nurse Name: Marcelo Schneider RN Position: [facility] ED RN W/OE and Tasks Member Role: Primary Care Nurse Name: Radha Masterson RN Position: [facility] RN Member Role: Primary Care Nurse Name: Landy Villarreal RN Position: [facility] RN Member Role: Primary Care Nurse Name: Amy Larios RN Position: [facility] RN Member Role: Primary Care Nurse Name: Indira Lindsey RN Position: [facility] SN RN Member Role: Primary Care Nurse Name: Rosa Elena Pope RN Position: [facility] RN Member Role: Primary Care Nurse Name: Florentino Garcia RN Position: [facility] RN Member Role: Primary Care Nurse Name: Cristel Moreno RN Position: [facility] SN RN Member Role: Primary Care Nurse Name: Rosa Elena De León RN Position: [facility] Hospital [facility] Management Specialist Member Role: Primary Care Nurse Name: Tulio Pina RN Position: [facility] RN Member Role: Primary Care Nurse Name: Maximiliano Claros RN Position: [facility] RN Member Role: Primary Care Nurse Name: Narda Barnes RN Position: [facility] RN Member Role: Primary Care Nurse Name: Zoë Cisse RN Position: [facility] RN Member Role: Primary Care Nurse Name: Pat Bowers RN Position: [facility] SN RN Member Role: Primary Care Nurse Name: Ruy Salcido RN Position: [facility] RN Member Role: Primary Care Nurse Name: Tayler Cabello RN Position: [facility] RN Member Role: Primary Care Nurse Name: Hilaria Aparicio RN Position: [facility] RN Member Role: Primary Care Nurse Name: Carly Rosado RN Position: [facility] RN Neil Member Role: Primary Care Nurse Name: Taryn Rosado RN Position: [facility] RN Member Role: Primary Care Nurse Name: Sydney Rosado RN Position: [facility] RN Member Role: Primary Care Nurse Name: Fidencio Camarena RN Position: [facility] RN Member Role: Primary Care Nurse Name: Uriel Dumont Position: [facility] RN Member Role: Primary Care Nurse Name: Selene Vazquez RN Position: [facility] RN Member Role: Primary Care Nurse Name: Dariana Becerra RN Position: [facility] RN Member Role: Primary Care Nurse Name: Leyla Verma LPN Position: [facility] RN Member Role: Primary Care Nurse Name: Rody Mays RN Position: [facility] RN Member Role: Primary Care Nurse Name: Marielos Mixon RN Position: [facility] RN Member Role: Primary Care Nurse Name: Radha Flores RN Position: [facility] RN Member Role: Primary Care Nurse Name: Rose Kyle RN Position: [facility] Management Specialist Member Role: Primary Care Nurse Name: Aimee Salamanca Position: [facility] RN Member Role: Primary Care Nurse Name: Jacobo Caceres Position: [facility] RN Member Role: Primary Care Nurse Care Team Related Persons Name: STEVENSON HAMM Address: home [address] [place] [address] Name: MELINA VARMA Address: [place] [address] Name: GARRY VARMA Address: home [address] [place] [id number] Name: BRIEN LANCASTER Address: home [address] [place] [address]
--- OUTSIDE RECORDS SUMMARY | 2023-08-15 20:24 | XMS_ITS | Continuity of Care Document ---
Author Name Unknown Organization [facility] Address [address] [place] [address]- Care Team Providers Care Prick Stitcher Name Role Phone Jorge Garcia III, MD Primary Care Physician [phone] Encounter [facility] [place] Date(s): 05/21/21 - 07/19/21 [facility] [address] [place] [address]- Attending Physician: Delmar Gonzalez MD Admitting Physician: Delmar Gonzalez MD Referring Physician: Jorge Garcia III, MD [...] mL, 6 Refills, Maintenance, 07/24/20 16:44:00 EDT, [facility]/pharmacy #[id number], 182, cm, 05/26/20 16:01:00 EDT, Height, 67, kg, 07/05/20 13:57:00 EDT, Dry Weight Start Date: 07/24/20 Status: Ordered albuterol CFC free 90 mcg/inh inhalation aerosol 2, puffs, Inhalation, Every 6 hours, PRN, j44.9, # 1 each, Refills 6, Tot. Refills 6, Maintenance, 07/24/20 16:44:00 EDT, Aerosol, Route to Pharmacy Electronically, [id number], [facility]/pharmacy #[id number], 182, cm, 05/26/20 16:01:00 E... [...] opioid drug. Start Date: 07/17/21 Status: Ordered Dilaudid 2 mg oral tablet 1 tablet = 2 mg, By Mouth, Every 8 hours, PRN as needed for pain, Dx: PVD, # 90 tablet, 0 Refills, Maintenance, 07/01/21 14:22:00 EDT, Tablet, [facility]/pharmacy #[id number], Partial fill upon patient request [...] By Mouth, 2 times a day, PRN for pain, 0 Refills, Maintenance, 07/17/21 3:53:00 EDT, Tablet, Partial fill upon patient request if the prescription is for a schedule II opioid drug. Start Date: 07/17/21 Status: Ordered Incruse Ellipta 62.5 mcg/inh inhalation powder 1 each, Inhalation, Every 24 hours, doses should be taken at least 24 hours apart, j44.9, # 1 each,6 Refills, Maintenance, 08/13/20 16:33:00 EDT, Powder, [facility]/pharmacy #[id number], 182, cm, 05/26/20 16:01:00 EDT, [...] opioid drug. Start Date: 07/17/21 Status: Ordered Pantoprazole = 40 mg, By Mouth, Daily, 0 Refills, Maintenance, 06/30/16 11:32:53 Start Date: 06/30/16 Status: Ordered predniSONE 5 mg oral tablet 3 tablet = 15 mg, By Mouth, Daily, # 30 tablet, 0 Refills, Maintenance, 07/17/21 4:03:00 EDT, Tablet, Partial fill upon patient request if the prescription is for a schedule II opioid drug. Start Date: 07/17/21 Status: Ordered Symbicort 160mcg/4.5mcg Inhaler 2, puffs, [...] 6, 03/31/07 11:15:26, Print MARTIN Number, [facility], [address] [place] [id number], [id number], Constant Indicator Start Date: 03/31/07 Stop Date: [...] Multiple fractures of ribs(Confirmed) 01/06/11 Active Old [place] (myocardial infarctio n) X 3(Confirmed) Active PVD (peripheral vascular disease)(Confirmed) Active 1Cardiac stents 1991, 1995 Social History Social History Type Response Tobacco Use: Former smoker.. Sex
--- OUTSIDE RECORDS SUMMARY | 2023-08-15 20:24 | XMS_ITS | Continuity of Care Document ---
Author Name Unknown Organization [facility] Address [address] [place] [address]- Care Team Providers Care Physiotherapist'S Assistant Name Role Phone Jose LEE MD, Jorge Tsang Primary Care Physician Encounter [place] Date(s): 08/18/22 - 10/20/22 [facility] [address] [place] [id number] Attending Physician: Deepika AMAYA, Donaldo Pereira Admitting Physician: Deepika AMAYA, Donaldo Pereira Referring Physician: Jorge Garcia III, MD Allergies, [...] fractures of ribs Confirmed 01/06/11 Active Old [place] (myocardial infarction) X 3 Confirmed Active PVD (peripheral vascular disease) Confirmed Active Underweight Confirmed Active 1Cardiac stents 1995 Social History Social History Type Response Tobacco Use: 4 or less cigar ettes(less than 1/4 pack)/day in last 30 days. Sex Patient Care team information Care Team Personnel Name: Michael Girard RN Position: S RN Member Role: Primary Care Nurse Name: Radha Hsieh RN Position: S RN Member Role: Primary Care Nurse Name: Glo Camarena RN Position: S RN Member Role: Primary Care Nurse Name: Fatimah Bennett RN Position: [facility] RN Member Role: Primary Care Nurse Name: Mariely Hardy RN Position: [facility] RN Member Role: Primary Care Nurse Name: Sydney Zelaay Position: [facility] PCO OFFICE STAFF Member Role: Lifetime Consulting Physician Name: Judd Barahona RN Position: [facility] RN Member Role: Primary Care Nurse Name: Mag Harry RN Position: [facility] RN Member Role: Primary Care Nurse Name: An Blount RN Position: [facility] RN Supv Member Role: Primary Care Nurse Name: Marianna Ng RN Position: [facility] SN RN Member Role: Primary Care Nurse Name: Avani Odell RN Position: [facility] RN Member Role: Primary Care Nurse Name: Elizabeth Noriega RN Position: [facility] RN Member Role: Primary Care Nurse Name: Ruben Bello RN Position: [facility] RN Member Role: Primary Care Nurse Name: Zoë Thompson RN Position: [facility] RN Member Role: Primary Care Nurse Name: Araceli Simon RN Position: [facility] RN Member Role: Primary Care Nurse Name: Nikki Yanez RN Position: [facility] RN Member Role: Primary Care Nurse Name: Roman Weiner RN Position: [facility] RN Member Role: Primary Care Nurse Name: Jorge Garcia III, MD Position: [facility] Ambulatory (view) Member Role: PCP Address: Address: [address] [place] [id number] Name: Misty Nguyen RN Position: [facility] RN Member Role: Primary Care Nurse Name: Sarwat Aj RN Position: [facility] RN Member Role: Primary Care Nurse Name: Cassi Batista RN Position: [facility] RN Member Role: Primary Care Nurse Name: Ellis Mayfield RN Position: [facility] RN Member Role: Primary Care Nurse Name: Ayah Robison RN Position: [facility] RN Member Role: Primary Care Nurse Name: Kirstin Enriquez RN Position: [facility] RN Member Role: Primary Care Nurse Name: Jina Smalls RN Position: [facility] RN Member Role: Primary Care Nurse Name: Laura Clements RN Position: [facility] RN Member Role: Primary Care Nurse Name: Colette Syed RN Position: [facility] RN Member Role: Primary Care Nurse Name: Muriel Daley RN Position: [facility] RN Supv Member Role: Primary Care Nurse Name: Darlyn Alvarez RN Position: [facility] RN Member Role: Primary Care Nurse Name: Maribell Mejias RN Position: [facility] RN Member Role: Primary Care Nurse Name: Rachna Renteria RN Position: [facility] RN Member Role: Primary Care Nurse Name: Zohreh Pnik RN Position: [facility] RN Member Role: Primary Care Nurse Name: Sophie Berrios RN Position: [facility] RN Member Role: Primary Care Nurse Name: Monse Wen RN Position: [facility] RN Member Role: Primary Care Nurse Name: Cindy Grullon RN Position: [facility] RN Supv Member Role: Primary Care Nurse Name: Elham Melgar RN Position: [facility] RN Member Role: Primary Care Nurse Name: Elham Lee RN Position: [facility] PCO RN Member Role: Primary Care Nurse Name: Ana María Cat RN Position: [facility] RN Member Role: Primary Care Nurse Name: Flor Holley Position: [facility] RN Member Role: Primary Care Nurse Name: Bret Aguirre RN Position: [facility] RN Member Role: Primary Care Nurse Name: Rosa Elena Lora RN Position: [facility] RN Member Role: Primary Care Nurse Name: Ghazal Moreno Position: [facility] RN Member Role: Primary Care Nurse Name: Audra Martinez RN Position: [facility] RN Member Role: Primary Care Nurse Name: Shahbaz Bobo RN Position: [facility] RN Member Role: Primary Care Nurse Name: Jennifer Yin LPN Position: [facility] RN Member Role: Primary Care Nurse Name: Alina Arce RN Position: [facility] RN Member Role: Primary Care Nurse Name: Marcelo Schneider RN Position: [facility] ED RN W/OE and Tasks Member Role: Primary Care Nurse Name: Daija De Paz RN Position: [facility] RN Member Role: Primary Care Nurse Name: Radha Masterson RN Position: [facility] RN Member Role: Primary Care Nurse Name: Amy Larios RN Position: [facility] RN Member Role: Primary Care Nurse Name: Indira Lindsey RN Position: [facility] SN RN Member Role: Primary Care Nurse Name: Rosa Elena Pope RN Position: [facility] RN Member Role: Primary Care Nurse Name: Florentino Garcia RN Position: [facility] RN Member Role: Primary Care Nurse Name: Cristel Moreno RN Position: [facility] SN RN Member Role: Primary Care Nurse Name: Rosa Elena De León RN Position: [facility] Parachute Repairer Member Role: Primary Care Nurse Name: Tulio Pina RN Position: [facility] RN Member Role: Primary Care Nurse Name: Maximiliano Claros RN Position: [facility] RN Member Role: Primary Care Nurse Name: Narda Barnes RN Position: [facility] RN Member Role: Primary Care Nurse Name: Zoë Cisse RN Position: [facility] RN Member Role: Primary Care Nurse Name: Pat Bowers RN Position: [facility] SN RN Member Role: Primary Care Nurse Name: Tayler Bird RN Position: [facility] RN Member Role: Primary Care Nurse Name: Hilaria Aparicio RN Position: [facility] RN Member Role: Primary Care Nurse Name: Carly Rosado RN Position: [facility] RN Member Role: Primary Care Nurse Name: Sydney Rosado RN Position: [facility] RN Member Role: Primary Care Nurse Name: Fidencio Camarena RN Position: [facility] RN Member Role: Primary Care Nurse Name: Uriel Dumont Position: [facility] RN Member Role: Primary Care Nurse Name: Selene Vazquez RN Position: [facility] RN Member Role: Primary Care Nurse Name: Leyla Verma LPN Position: [facility] RN Member Role: Primary Care Nurse Name: Rody Mays RN Position: [facility] RN Member Role: Primary Care Nurse Name: Marielos Mixon RN Position: [facility] RN Member Role: Primary Care Nurse Name: Radha Flores RN Position: [facility] RN Member Role: Primary Care Nurse Name: Rose Kyle RN Position: [facility] Parachute Repairer Member Role: Primary Care Nurse Name: Aimee Salamanca Position: [facility] RN Member Role: Primary Care Nurse Care Team Related Persons Name: STEVENSON HAMM Address: home [address] Name: MELINA VARMA Address: [place] [address] Name: GARRY VARMA Address: home [address] Name: BRIEN LANCASTER Address: [address] [place] [address]
--- OUTSIDE RECORDS SUMMARY | 2023-08-15 20:24 | XMS_ITS | Continuity of Care Document ---
Author Name Unknown Organization [facility] Address Unknown Care Team Providers Care Enterprise Mobility Architect Name Role Phone Jose LEE MD, Jorge Tsang Primary Care Physician [place] [facility] 09/02/21 - 10/02/21 [facility] Attending Physician: Anabel Mendosa Admitting Physician: AdmAnabel redmond Referring Physician: Anabel Mendosa Allergies, Adverse Reactions, Alerts Substance Reaction Severity [...] 6 Refills, Maintenance, 07/24/20 16:44:00 EDT, [facility]/pharmacy #[id number], 182, cm, 05/26/20 16:01:00 EDT, Height, 67, kg, 07/05/20 13:57:00 EDT, Dry Weight Start Date: 07/24/20 Status: Ordered albuterol CFC free 90 mcg/inh inhalation aerosol 2, puffs, Inhalation, Every 6 hours, PRN, j44.9, # 1 each, Refills 6, Tot. Refills 6, Maintenance, 07/24/20 16:44:00 EDT, Aerosol, Route to Pharmacy Electronically, [id number], [facility]/pharmacy #[id number], 182, cm, 05/26/20 [...] A DAY Start Date: 09/16/21 Status: Ordered HYDROmorphone 2 mg oral tablet 1 tablet = 2 mg, By Mouth, Every 6 hours, PRN as needed for pain, for 7 days, # 28 tablet, 0 Refills, Acute 10/05/21 13:15:00 EST, 09/28/21 13:15:00 EDT, Tablet, [facility]/pharmacy #[id number], Partial fill uponpatient request if the prescription is for a schedu... Start Date: 09/28/21 Stop Date: 10/05/21 Status: Ordered Incruse Ellipta 62.5 mcg/inh inhalation [...] 6, 03/31/07 11:15:26, Print MARTIN Number, [facility], [address] [place] [address], [id number], Constant Indicator Start Date: 03/31/07 Stop Date: [...] Multiple fractures of ribs(Confirmed) 01/06/[address] (myocardial infarctio n) X 3(Confirmed) Active PVD (peripheral vascular disease)(Confirmed) Active 1Cardiac stents 1991, 1995 Social History Social History Type Response Tobacco Use: 2 cigarettes a day . Sex
--- OUTSIDE RECORDS SUMMARY | 2023-08-15 20:24 | XMS_ITS | Continuity of Care Document ---
Author Name Unknown Organization [facility] ter Address [address] [place] [address]- Care Team Providers Care Enterprise Engineer Name Role Phone Jorge Garcia III, MD Primary Care Physician Encounter [facility] [place] Date(s): 11/21/22 - 11/21/[address] [address]- Discharge Disposition: A-D/C Walkout Attending Physician: Not on Staff, Attending MD Admitting Physician: Not on Staff, Admitting MD Referring Physician: Not on Staff, Referring MD Allergies, Adverse Reactions, Alerts Substance Reaction Severity Status naproxen lesions on lips Active Toradol Morphine allergy Metaxalone Naproxen Cephalexin allergy hives Persistent Mild Active Keflex 1 rash Active Skelaxin H/O: migraine Active 1tolerates pip/tazo 11/17 Immunizations Given and Recorded Vaccine Date Status Refusal Reason [id number] 12y+ bivalent booster vax 08/23/22 Recorded SARS-CoV-2 [...] 0 Refills, Maintenance, 07/16/22 12:59:00 EDT, Tablet, [facility]/pharmacy #[id number], Partial fill upon patient [...] fractures of ribs Confirmed 01/06/11 Active Old [place] (myocardial infarction) X 3 Confirmed Active PVD (peripheral vascular disease) Confirmed Active Underweight Confirmed Active 1Cardiac stents 1991, 1995 Vital Signs Most recent to oldest [Reference Range]: 1 2 3 Height 183 cm (11/21/22 10:29 AM) 183 cm (11/21/22 10:13 AM) Weight 60 kg (11/21/22 10:29 AM) 60 kg (11/21/22 10:13 AM) Oxygen Saturation [94-100 %] 100 % (11/21/22 10:29 AM) 100 % (11/21/22 10:10 AM) 95 % (11/21/22 9:56 AM) Pulse Rate [55-90 bpm] 92 bpm *H* (11/21/22 10:10 AM) Body Mass Index [18.5-24.99 kg/m2] 17.92 kg/m2 *L* (11/21/22 10:29 AM) Blood Pressure [90-138/55-84 mm Hg] 107/75mm Hg (11/21/22 10:10 AM) Respiratory Rate [16-30 br/min] 16 br/min (11/21/22 10:10 AM) Temperature [96.8-100.4 DegF] 98.2 DegF (11/21/22 10:10 AM) Liters per Minute 3 L/min (11/21/22 10:29 AM) 4 L/min (11/21/22 10:10 AM) 4 L/min (11/21/22 9:56 AM) Mode of Delivery (Oxygen) Nasal cannula (11/21/22 10:29 AM) Nasal cannula (11/21/22 10:10 AM) Nasal cannula (11/21/22 9:56 AM) Blood pressure sites Arm, left (11/21/22 10:10 AM) Temperature Route Oral (11/21/22 10:10 AM) Dry Weight 60 kg (11/21/22 10:29 AM) 60 kg (11/21/22 10:13 AM) Social History Social History Type Response [...] Care Nurse Name: Fatimah Bennett RN Position: S RN Member Role: Primary Care Nurse Name: Mariely Hardy RN Position: S RN Member Role: Primary Care Nurse Name: Marleen Uriarte RN Position: [facility] RN Member Role: Primary Care Nurse Name: Sydney Zelaya Position: [facility] PCO OFFICE STAFF Member Role: Lifetime Consulting Physician Name: Judd Barahona RN Position: [facility] RN Member Role: Primary Care Nurse Name: Mag Harry RN Position: [facility] RN Member Role: Primary Care Nurse Name: An Blount RN Position: [facility] RN Supv Member Role: Primary Care Nurse Name: Marianna Ng RN Position: [facility] SN RN Member Role: Primary Care Nurse Name: Avani Odell RN Position: [facility] RN Member Role: Primary Care Nurse Name: Elizabeth Noriega RN Position: [facility] RN Member Role: Primary Care Nurse Name: Ruben Bello RN Position: [facility] RN Member Role: Primary Care Nurse Name: Zoë Thompson RN Position: [facility] RN Member Role: Primary Care Nurse Name: Araceli Simon RN Position: [facility] RN Member Role: Primary Care Nurse Name: Jorge Garcia III, MD Position: [facility] Ambulatory (view) Member Role: PCP Address: Address: [address] [place] [id number] Name: Misty Nguyen RN Position: [facility] RN Member Role: Primary Care Nurse Name: Sarwat Aj RN Position: [facility] RN Member Role: Primary Care Nurse Name: Cassi Batista RN Position: [facility] RN Member Role: Primary Care Nurse Name: Daija Huitron RN Position: [facility] RN Member Role: Primary Care Nurse Name: Ellis Mayfield RN Position: [facility] RN Member Role: Primary Care Nurse Name: Ayah Robison RN Position: [facility] RN Member Role: Primary Care Nurse Name: Kirstin Enriquez RN Position: [facility] RN Member Role: Primary Care Nurse Name: Jina Smalls RN Position: [facility] RN Member Role: Primary Care Nurse Name: Laura Clements RN Position: [facility] RN Member Role: Primary Care Nurse Name: Colette Syed RN Position: [facility] RN Member Role: Primary Care Nurse Name: Muriel Daley RN Position: [facility] RN Supv Member Role: Primary Care Nurse Name: Darlyn Alvarez RN Position: [facility] RN Member Role: Primary Care Nurse Name: Maribell Mejias RN Position: [facility] RN Member Role: Primary Care Nurse Name: Rachna Renteria RN Position: [facility] RN Member Role: Primary Care Nurse Name: Zohreh Pink RN Position: [facility] RN Member Role: Primary Care Nurse Name: Sophie Berrios RN Position: [facility] RN Member Role: Primary Care Nurse Name: Grisel Mcgowan RN Position: [facility] RN Member Role: Primary Care Nurse Name: Nasra Smith RN Position: [facility] RN Member Role: Primary Care Nurse Name: Cindy Grullon RN Position: [facility] RN Supv Member Role: Primary Care Nurse Name: Silas Knox RN Position: [facility] RN Member Role: Primary Care Nurse Name: Elham Melgar RN Position: [facility] RN Member Role: Primary Care Nurse Name: Elham Lee RN Position: [facility] PCO RN Member Role: Primary Care Nurse Name: Dariana Mariee RN Position: [facility] RN Member Role: Primary Care Nurse Name: Ana María Cat RN Position: [facility] RN Member Role: Primary Care Nurse Name: Flor Holley Position: [facility] RN Member Role: Primary Care Nurse Name: Bret Aguirre RN Position: [facility] RN Member Role: Primary Care Nurse Name: Ghazal Moreno Position: [facility] RN Member Role: Primary Care Nurse Name: Audra Martinez RN Position: [facility] RN Member Role: Primary Care Nurse Name: Shahbaz Bobo RN Position: [facility] RN Member Role: Primary Care Nurse Name: Jennifer Yin LPN Position: [facility] RN Member Role: Primary Care Nurse Name: Alina Arce RN Position: [facility] RN Member Role: Primary Care Nurse Name: Marcelo Schneider RN Position: [facility] ED RN W/OE and Tasks Member Role: Primary Care Nurse Name: Radha Masterson RN Position: [facility] RN Member Role: Primary Care Nurse Name: Amy Larios RN Position: [facility] RN Member Role: Primary Care Nurse Name: Indira Lindsey RN Position: [facility] SN RN Member Role: Primary Care Nurse Name: Rosa Elena Pope RN Position: [facility] RN Member Role: Primary Care Nurse Name: Florentino Garcia RN Position: [facility] RN Member Role: Primary Care Nurse Name: Cristel Moreno RN Position: [facility] SN RN Member Role: Primary Care Nurse Name: Rosa Elena De León RN Position: [facility] Track Machine Operator Repairer Member Role: Primary Care Nurse Name: Tulio Pina RN Position: [facility] RN Member Role: Primary Care Nurse Name: Maximiliano Claros RN Position: [facility] RN Member Role: Primary Care Nurse Name: Narda Barnes RN Position: [facility] RN Member Role: Primary Care Nurse Name: Zoë Cisse RN Position: [facility] RN Member Role: Primary Care Nurse Name: Pat Bowers RN Position: [facility] SN RN Member Role: Primary Care Nurse Name: Ruy Salcido RN Position: [facility] RN Member Role: Primary Care Nurse Name: Tayler Cabello RN Position: [facility] RN Member Role: Primary Care Nurse Name: Hilaria Aparicio RN Position: [facility] RN Member Role: Primary Care Nurse Name: Carly Rosado RN Position: [facility] RN Supv Member Role: Primary Care Nurse Name: Sydney Rosado RN Position: [facility] RN Member Role: Primary Care Nurse Name: Uriel Dumont Position: [facility] RN Member Role: Primary Care Nurse Name: Selene Vazquez RN Position: [facility] RN Member Role: Primary Care Nurse Name: Dariana Becerra RN Position: [facility] RN Member Role: Primary Care Nurse Name: Leyla Verma LPN Position: [facility] RN Member Role: Primary Care Nurse Name: Rody Mays RN Position: [facility] RN Member Role: Primary Care Nurse Name: Marielos Mixon RN Position: [facility] RN Member Role: Primary Care Nurse Name: Radha Flores RN Position: [facility] RN Member Role: Primary Care Nurse Name: Rose Kyle RN Position: [facility] Track Machine Operator Repairer Member Role: Primary Care Nurse Name: Aimee Salamanca Position: [facility] RN Member Role: Primary Care Nurse Name: Jacobo Caceres Position: [facility] RN Member Role: Primary Care Nurse Care Team Related Persons Name: STEVENSON HAMM Address: home [address] [place] [id number] Name: MELINA VARMA Address: [place] [address] Name: GARRY VARMA Address: home [address] [address] Name: BRIEN LANCASTER Address: home [address] [address]
--- OUTSIDE RECORDS SUMMARY | 2023-08-15 20:24 | XMS_ITS | Continuity of Care Document ---
Author Name Unknown Organization [facility] Address [address] [place] [address]- Care Team Providers Care Airport Driver Name Role Phone Elder Juliet AMAYA Primary Care Physicia n Encounter [facility] ACCT R [id number] Date(s): 08/24/22 - 08/31/22 [facility] [address] [place] [address]- Attending Physician: Delmar Gonzalez MD Admitting Physician: [...] Maintenance, 07/16/22 12:59:00 EDT, Tablet, [facility]/pharmacy #[id number], [...] Date: 07/03/22 Stop Date: 07/10/22 Status: Ordered Vital Signs Most recent to oldest [Reference Range]: 1 Height 172 cm (08/24/22 10:54 AM) Weight 64 kg (08/24/22 10:54 AM) Oxygen Saturation [94-100 %] 97 % (08/24/22 10:54 AM) Pulse Rate [55-90 bpm] 91 bpm *H* (08/24/22 10:54 AM) Body Mass Index [18.5-24.99 kg/m2] 21.63 kg/m2 (08/24/22 10:54 AM) Mode of Delivery (Oxygen) Room air (08/24/22 10:54 AM) Weight Obtained Via Patient/family state d (08/24/22 10:54 AM) Patient Care team information Personnel Name: Ankit AMAYA, Juliet Guy Address: Address: [address] [place] [address] [address] [facility] [place], [place] [address]
--- OUTSIDE RECORDS SUMMARY | 2023-08-15 20:24 | XMS_ITS | Continuity of Care Document ---
Author Name Unknown Organization [facility] Address [address] [place] [address]- Care Team Providers Care Felt Checker Name Role Phone Jose LEE MD, Jorge Tsang Primary Care Physician Encounter [facility] Date(s): 06/22/21 - 07/22/21 [facility] [address] [place] [address]- Allergies, Adverse Reactions, Alerts Substance Reaction Severity [...] mL, 6 Refills, Maintenance, 07/24/20 16:44:00 EDT, [facility]/pharmacy #[id number], 182, cm, 05/26/20 16:01:00 EDT, Height, 67, kg, 07/05/20 13:57:00 EDT, Dry Weight Start Date: 07/24/20 Status: Ordered albuterol CFC free 90 mcg/inh inhalation aerosol 2, puffs, Inhalation, Every 6 hours, PRN, j44.9, # 1 each, Refills 6, Tot. Refills 6, Maintenance, 07/24/20 16:44:00 EDT, Aerosol, Route to Pharmacy Electronically, [id number], [facility]/pharmacy #[id number], 182, cm, 05/26/20 [...] 0 Refills, Maintenance, 07/01/21 14:22:00 EDT, Tablet, [facility]/pharmacy #[id number], Partial fill upon [...] each,6 Refills, Maintenance, 08/13/20 16:33:00 EDT, Powder, [facility]/pharmacy #[id number], 182, cm, 05/26/20 [...] 6, 03/31/07 11:15:26, Print MARTIN Number, [facility], [address] [place] [address], [phone], Constant Indicator Start Date: 03/31/07 Stop Date: [...] Multiple fractures of ribs(Confirmed) 01/06/11 Active Old [place] (myocardial infarctio n) X 3(Confirmed) Active PVD (peripheral vascular disease)(Confirmed) Active 1Cardiac stents 1995 Social History Social History Type Response Tobacco Use: Former smoker.. Sex
--- OUTSIDE RECORDS SUMMARY | 2023-08-15 20:24 | XMS_ITS | Continuity of Care Document ---
Author Name Unknown Organization [facility] Address [address] [place] [address]- Care Team Providers Care Production Team Advisor Name Role Phone Jose LEE MD, Jorge Tsang Primary Care Physician [phone] [place] [facility] [place] 12[place]28[place]22 - 01/27/23 [facility] [address] [place] [address]- Attending Physician: AdmAnabel redmond Admitting Physician: Admtr, Anabel Referring Physician: Admtr, Ar8 Allergies, Adverse Reactions, Alerts Substance Reaction Severity Status naproxen lesions on lips Active Toradol Morphine allergy Metaxalone Naproxen Cephalexin allergy hives Persistent Mild Active Keflex 1 rash Active Skelaxin H/O: migraine Active 1tolerates pip/tazo 11/17 Immunizations Given and Recorded Vaccine Date Status Refusal Reason [id number] 12y+ bivalent booster vax 08/23/22 Recorded SARS-CoV-2 [...] 0 Refills, Maintenance, 07/16/22 12:59:00 EDT, Tablet, [facility]/pharmacy #[id number], Partial fill upon patient [...] fractures of ribs Confirmed 01/06/11 Active Old [place] (myocardial infarction) X 3 Confirmed Active PVD (peripheral vascular disease) Confirmed Active Underweight Confirmed Active 1Cardiac stents 1995 Social History Social History Type Response Tobacco Use: 4 or less cigar ettes(less than 1/4 pack)/day in last 30 days. Sex Patient Care team information Care Team Personnel Name: Radha Hsieh RN Position: [facility] RN Member Role: Primary Care Nurse Name: Glo Camarena RN Position: [facility] RN Member Role: Primary Care Nurse Name: Fatimah Bennett RN Position: [facility] RN Member Role: Primary Care Nurse Name: Mariely Hardy RN Position: [facility] RN Member Role: Primary Care Nurse Name: Marleen Uriarte RN Position: [facility] RN Member Role: Primary Care Nurse Name: Sydney Zelaya Position: [facility] PCO OFFICE STAFF Member Role: Lifetime Consulting Physician Name: Judd Barahona RN Position: [facility] RN Member Role: Primary Care Nurse Name: Mag Harry RN Position: [facility] RN Member Role: Primary Care Nurse Name: An Blount RN Position: [facility] RN Supv Member Role: Primary Care Nurse Name: Marianna Ng RN Position: [facility] SN RN Member Role: Primary Care Nurse Name: Avani Odell RN Position: [facility] RN Member Role: Primary Care Nurse Name: Lisbet Hickman RN Position: [facility] RN Member Role: Primary Care Nurse Name: Ruben Bello RN Position: [facility] RN Member Role: Primary Care Nurse Name: Araceli Simon RN Position: [facility] RN Member Role: Primary Care Nurse Name: Moni Dugan RN Position: [facility] RN Member Role: Primary Care Nurse Name: Jorge Garcia III, MD Position: [facility] Ambulatory (view) Member Role: PCP Address: Address: [address] [place] [id number] Name: Misty Nguyen RN Position: [facility] RN Member Role: Primary Care Nurse Name: Joyce Cobb Position: [facility] RN Member Role: Primary Care Nurse Name: Sarwat Aj RN Position: [facility] RN Member Role: Primary Care Nurse Name: Cassi Batista RN Position: [facility] RN Member Role: Primary Care Nurse Name: Yanni Holland RN Position: [facility] RN Member Role: Primary Care Nurse Name: Daija Huitron RN Position: [facility] RN Member Role: Primary Care Nurse Name: Ellis Mayfield RN Position: [facility] RN Supv Member Role: Primary Care Nurse Name: Ayah Robison RN Position: [facility] RN Member Role: Primary Care Nurse Name: Kirstin Enriquez RN Position: [facility] RN Member Role: Primary Care Nurse Name: Radha Moreno RN Position: [facility] RN Member Role: Primary Care Nurse Name: Jina Smalls RN Position: [facility] RN Member Role: Primary Care Nurse Name: Laura Clements RN Position: [facility] RN Member Role: Primary Care Nurse Name: Colette Syed RN Position: [facility] RN Member Role: Primary Care Nurse Name: Muriel Daley RN Position: [facility] RN Supv Member Role: Primary Care Nurse Name: Rachna Renteria RN Position: [facility] RN Member Role: Primary Care Nurse Name: Zohreh Pink RN Position: [facility] RN Member Role: Primary Care Nurse Name: Sophie Berrios RN Position: [facility] RN Member Role: Primary Care Nurse Name: Grisel Mcgowan RN Position: [facility] RN Member Role: Primary Care Nurse Name: Uyen Mitchell RN Position: [facility] RN Member Role: Primary Care Nurse Name: Nasra Smith RN Position: [facility] PCO w/OE and EZ Script Member Role: Primary Care Nurse Name: Cindy Grullon RN Position: [facility] RN Supv Member Role: Primary Care Nurse Name: Silas Knox RN Position: [facility] RN Member Role: Primary Care Nurse Name: Elham Lee RN Position: [facility] RN Member Role: Primary Care Nurse Name: Dariana Mariee RN Position: [facility] RN Member Role: Primary Care Nurse Name: Ana María Cat RN Position: [facility] RN Member Role: Primary Care Nurse Name: Flor Holley Position: [facility] RN Member Role: Primary Care Nurse Name: Bret Aguirre RN Position: [facility] RN Member Role: Primary Care Nurse Name: Ghazal Moreno Position: [facility] RN Member Role: Primary Care Nurse Name: Audra Martinez RN Position: [facility] RN Member Role: Primary Care Nurse Name: Shahbaz Bobo RN Position: [facility] RN Member Role: Primary Care Nurse Name: Jennifer Yin LPN Position: [facility] RN Member Role: Primary Care Nurse Name: Alina Arce RN Position: [facility] RN Member Role: Primary Care Nurse Name: Radha Masterson RN Position: [facility] RN Member Role: Primary Care Nurse Name: Landy Villarreal RN Position: [facility] RN Member Role: Primary Care Nurse Name: Amy Larios RN Position: [facility] RN Member Role: Primary Care Nurse Name: Indira Lindsey RN Position: [facility] SN RN Member Role: Primary Care Nurse Name: Rosa Elena Pope RN Position: [facility] RN Member Role: Primary Care Nurse Name: Florentino Garcia RN Position: [facility] RN Member Role: Primary Care Nurse Name: Cristel Moreno RN Position: [facility] SN RN Member Role: Primary Care Nurse Name: Rosa Elena De León RN Position: [facility] Hospital Branch Assistant Member Role: Primary Care Nurse Name: Tulio Pina RN Position: [facility] RN Member Role: Primary Care Nurse Name: Maximiliano Claros RN Position: [facility] RN Member Role: Primary Care Nurse Name: Narda Barnes RN Position: [facility] RN Member Role: Primary Care Nurse Name: Zoë Cisse RN Position: [facility] RN Member Role: Primary Care Nurse Name: Pat Bowers RN Position: [facility] SN RN Member Role: Primary Care Nurse Name: Ruy Salcido RN Position: [facility] RN Member Role: Primary Care Nurse Name: Tayler Cabello RN Position: [facility] RN Member Role: Primary Care Nurse Name: Hilaria Aparicio RN Position: [facility] RN Member Role: Primary Care Nurse Name: Carly Rosado RN Position: [facility] RN Neil Member Role: Primary Care Nurse Name: Taryn Rosado RN Position: [facility] RN Member Role: Primary Care Nurse Name: Sydney Rosado RN Position: [facility] RN Member Role: Primary Care Nurse Name: Fidencio Camarena RN Position: [facility] RN Member Role: Primary Care Nurse Name: Uriel Dumnot Position: [facility] RN Member Role: Primary Care Nurse Name: Selene Vazquez RN Position: [facility] RN Member Role: Primary Care Nurse Name: Dariana Becerra RN Position: [facility] RN Member Role: Primary Care Nurse Name: Leyla Verma LPN Position: [facility] RN Member Role: Primary Care Nurse Name: Rody Mays RN Position: [facility] RN Member Role: Primary Care Nurse Name: Marielos Mixon RN Position: [facility] RN Member Role: Primary Care Nurse Name: Radha Flores RN Position: [facility] RN Member Role: Primary Care Nurse Name: Rose Kyle RN Position: [facility] Hospital Branch Assistant Member Role: Primary Care Nurse Name: Aimee Salamanca Position: [facility] RN Member Role: Primary Care Nurse Name: Jacobo Caceres Position: [facility] RN Member Role: Primary Care Nurse Care Team Related Persons Name: STEVENSON HAMM Address: home [address] [address] Name: MELINA VARMA Address: [place] [address] Name: GARRY VARMA Address: home [address] [address] Name: BRIEN LANCASTER Address: home [address] [place] [address]
--- OUTSIDE RECORDS SUMMARY | 2023-08-15 20:25 | XMS_ITS | Continuity of Care Document ---
Author Name Unknown Organization [facility] Address [address] [place] [address]- Care Team Providers Care Conference Concierge Name Role Phone Jorge Garcia III, MD Primary Care Physician [phone] [place] [facility] [place]20 [place] 09/05/20 [facility] [address] [place] [address]- [facility] Attending Physician: AdmAnabel redmond Admitting Physician: Admtr, [...] 16:44:00 EDT, Aerosol, Route to Pharmacy Electronically, [id number], [facility]/pharmacy #[id number], 182, cm, 05/26/20 16:01:00 E... [...] each,6 Refills, Maintenance, 08/13/20 16:33:00 EDT, Powder, [facility]/pharmacy #[id number], 182, cm, 05/26/20 16:01:00 EDT, [...] 6, 03/31/07 11:15:26, Print MARTIN Number, ADS [facility], [address] [place] [address], [phone], Constant Indicator Start Date: 03/31/07 Stop Date: [...] Multiple fractures of ribs(Confirmed) 01/06/11 Active Old [place] (myocardial infarctio n) X 3(Confirmed) Active PVD (peripheral vascular disease)(Confirmed) Active 1Cardiac stents 1995 Social History Social History Type Response Tobacco Use: Former smoker.. Sex Male
--- OUTSIDE RECORDS SUMMARY | 2023-08-15 20:25 | XMS_ITS | Continuity of Care Document ---
Author Name Unknown Organization [facility] Address [address] [place] [address]- Care Team Providers Care Logistics Team Leader Name Role Phone Jose LEE MD, Jorge Tsang Primary Care Physician [phone] [place] [facility] [place]): [place]/22 [facility] [address], [place] [address] Attending Physician: Deepika AMAYA, Donaldo Pereira Admitting Physician: Donaldo Poe MD Referring Physician: Jorge Garcia III, MD Allergies, Adverse Reactions, Alerts Substance Reaction Severity Status naproxen lesions on lips Active Toradol Morphine allergy Metaxalone Naproxen Cephalexin allergy hives Persistent Mild Active Keflex 1 rash Active Skelaxin H/O: migraine Active 1tolerates pip/tazo 11/17 Immunizations Given and Recorded Vaccine Date Status Refusal Reason [id number] 12y+ bivalent booster vax 08/23/22 Recorded SARS-CoV-2 [...] 0 Refills, Maintenance, 07/16/22 12:59:00 EDT, Tablet, [facility]/pharmacy #[id number], Partial fill upon [...] fractures of ribs Confirmed 01/06/11 Active Old NE (myocardial infarction) X 3 Confirmed Active PVD (peripheral vascular disease) Confirmed Active Underweight Confirmed Active 1Cardiac stents 1991, 1995 Social History Social History Type Response Tobacco Use: 4 or less cigar ettes(less than 1/4 pack)/day in last 30 days. Sex Patient Care team information Care Team Personnel Name: Radha Hsieh RN Position: [facility] RN Member Role: Primary Care Nurse Name: Glo Camarena RN Position: [facility] RN Member Role: Primary Care Nurse Name: Fatimah Bennett RN Position: [facility] RN Member Role: Primary Care Nurse Name: Mariely Hardy RN Position: [facility] RN Member Role: Primary Care Nurse Name: Marleen Uriarte RN Position: [facility] RN Member Role: Primary Care Nurse Name: Sydney Zelaya Position: [facility] PCO OFFICE STAFF Member Role: Lifetime Consulting Physician Name: Judd Barahona RN Position: [facility] RN Member Role: Primary Care Nurse Name: Mag Harry RN Position: [facility] RN Member Role: Primary Care Nurse Name: An Blount RN Position: [facility] RN Supv Member Role: Primary Care Nurse Name: Marianna Ng RN Position: [facility] SN RN Member Role: Primary Care Nurse Name: Avani Odell RN Position: [facility] RN Member Role: Primary Care Nurse Name: Ruben Bello RN Position: [facility] RN Member Role: Primary Care Nurse Name: Zoë Thompson RN Position: [facility] RN Member Role: Primary Care Nurse Name: Araceli Simon RN Position: [facility] RN Member Role: Primary Care Nurse Name: Jorge Garcia III, MD Position: [facility] Ambulatory (view) Member Role: PCP Address: Address: [address] [place] [address] Name: Misty Nguyen RN Position: [facility] RN Member Role: Primary Care Nurse Name: Sarwat Aj RN Position: [facility] RN Member Role: Primary Care Nurse Name: Cassi Batista RN Position: [facility] RN Member Role: Primary Care Nurse Name: Daija Huitron RN Position: [facility] RN Member Role: Primary Care Nurse Name: Ellis Mayfield RN Position: [facility] RN Supv Member Role: Primary Care Nurse Name: Ayah Robison RN Position: [facility] RN Member Role: Primary Care Nurse Name: Kirstni Enriquez RN Position: [facility] RN Member Role: Primary Care Nurse Name: Jina Smalls RN Position: [facility] RN Member Role: Primary Care Nurse Name: Laura Clements RN Position: [facility] RN Member Role: Primary Care Nurse Name: Colette Syed RN Position: [facility] RN Member Role: Primary Care Nurse Name: Muriel Daley RN Position: [facility] RN Supv Member Role: Primary Care Nurse Name: Darlyn Alvarez RN Position: [facility] RN Member Role: Primary Care Nurse Name: Maribell Mejias RN Position: [facility] RN Member Role: Primary Care Nurse Name: Rachna Renteria RN Position: [facility] RN Member Role: Primary Care Nurse Name: Zohreh Pink RN Position: [facility] RN Member Role: Primary Care Nurse Name: Agustina RNSophie Position: [facility] RN Member Role: Primary Care Nurse Name: Grisel Mcgowan RN Position: [facility] RN Member Role: Primary Care Nurse Name: Nasra Smith RN Position: [facility] RN Member Role: Primary Care Nurse Name: Cindy Grullon RN Position: [facility] RN Supv Member Role: Primary Care Nurse Name: Silas Knox RN Position: [facility] ED RN W/OE and Tasks Member Role: Primary Care Nurse Name: Elham Melgar RN Position: [facility] RN Member Role: Primary Care Nurse Name: Elham Lee RN Position: [facility] RN Member Role: Primary Care Nurse Name: Dariana Mariee RN Position: [facility] RN Member Role: Primary Care Nurse Name: Ana María Cat RN Position: [facility] RN Member Role: Primary Care Nurse Name: Flor Holley Position: [facility] RN Member Role: Primary Care Nurse Name: Bret Aguirre RN Position: [facility] RN Member Role: Primary Care Nurse Name: Ghazal Moreno Position: [facility] RN Member Role: Primary Care Nurse Name: Audra Martinez RN Position: [facility] RN Member Role: Primary Care Nurse Name: Shahbaz Bobo RN Position: [facility] RN Member Role: Primary Care Nurse Name: Jennifer Yin LPN Position: [facility] RN Member Role: Primary Care Nurse Name: Alina Arce RN Position: [facility] RN Member Role: Primary Care Nurse Name: Marcelo Schneider RN Position: [facility] ED RN W/OE and Tasks Member Role: Primary Care Nurse Name: Radha Masterson RN Position: [facility] RN Member Role: Primary Care Nurse Name: Amy Larios RN Position: [facility] RN Member Role: Primary Care Nurse Name: Indira Lindsey RN Position: [facility] SN RN Member Role: Primary Care Nurse Name: Rosa Elena Pope RN Position: [facility] RN Member Role: Primary Care Nurse Name: Florentino Garcia RN Position: [facility] RN Member Role: Primary Care Nurse Name: Cristel Moreno RN Position: [facility] SN RN Member Role: Primary Care Nurse Name: Rosa Elena De León RN Position: [facility] Machine Spreader Member Role: Primary Care Nurse Name: Tulio Pina RN Position: [facility] RN Member Role: Primary Care Nurse Name: Maximiliano Claros RN Position: [facility] RN Member Role: Primary Care Nurse Name: Narda Barnes RN Position: [facility] RN Member Role: Primary Care Nurse Name: Zoë Cisse RN Position: [facility] RN Member Role: Primary Care Nurse Name: Pat Bowers RN Position: [facility] RN Member Role: Primary Care Nurse Name: Ruy Salcido RN Position: [facility] RN Member Role: Primary Care Nurse Name: Tayler Cabello RN Position: [facility] RN Member Role: Primary Care Nurse Name: Hilaria Aparicio RN Position: [facility] RN Member Role: Primary Care Nurse Name: Carly Rosado RN Position: [facility] RN Neil Member Role: Primary Care Nurse Name: Sydney Rosado RN Position: [facility] RN Member Role: Primary Care Nurse Name: Fidencio Camarena RN Position: [facility] RN Member Role: Primary Care Nurse Name: Uriel Dumont Position: [facility] RN Member Role: Primary Care Nurse Name: Selene Vazquez RN Position: [facility] RN Member Role: Primary Care Nurse Name: Dariana Becerra RN Position: [facility] RN Member Role: Primary Care Nurse Name: Leyla Verma LPN Position: [facility] RN Member Role: Primary Care Nurse Name: Rody Mays RN Position: [facility] RN Member Role: Primary Care Nurse Name: Marielos Mixon RN Position: [facility] RN Member Role: Primary Care Nurse Name: Radha Flores RN Position: [facility] RN Member Role: Primary Care Nurse Name: Rose Kyle RN Position: [facility] Machine Spreader Member Role: Primary Care Nurse Name: Aimee Salamanca Position: S RN Member Role: Primary Care Nurse Name: Jacobo Caceres Position: S RN Member Role: Primary Care Nurse Care Team Related Persons Name: STEVENSON HAMM Address: home [address] [place] [address] Name: MELINA VARMA Address: [place] [address] Name: GARRY VARMA Address: home [address] [place] [address] Name: BRIEN [place] Address: home [address] [place] [id number]
--- OUTSIDE RECORDS SUMMARY | 2023-08-15 20:25 | XMS_ITS | Continuity of Care Document ---
Author Name Unknown Organization [facility] Address [address] [place] [address]- Care Team Providers Care Hydro Generation Supervisor Name Role Phone Jose LEE MD, Jorge Tsang Primary Care Physician [phone] Encounter [facility] [place] Date(s): 11/16/22 - 12/16/22 [facility] [address] [place] [address]- Attending Physician: Anabel Mendosa Admitting Physician: Anabel Mendosa Referring Physician: AdmtrAnabel Allergies, Adverse Reactions, Alerts Substance Reaction Severity Status naproxen lesions on lips Active Toradol Morphine allergy Metaxalone Naproxen Cephalexin allergy hives Persistent Mild Active Keflex 1 rash Active Skelaxin H/O: migraine Active 1tolerates pip/tazo 11/17 Immunizations Given and Recorded Vaccine Date Status Refusal Reason [id number] 12y+ bivalent booster vax 08/23/22 Recorded SARS-CoV-2 [...] 0 Refills, Maintenance, 07/16/22 12:59:00 EDT, Tablet, [facility]/pharmacy #[id number], Partial fill upon patient request [...] a schedule II opioid drug. Start Date: 11/10/21 Status: Ordered Metoprolol Succinate ER 25 mg [...] Team Personnel Name: Radha Hsieh RN Position: [facility] RN Member Role: Primary Care Nurse Name: Glo Camarena RN Position: [facility] RN Member Role: Primary Care Nurse Name: Fatimah Bennett RN Position: [facility] RN Member Role: Primary Care Nurse Name: Mariely Hardy RN Position: [facility] RN Member Role: Primary Care Nurse Name: Marleen Uriarte RN Position: [facility] RN Member Role: Primary Care Nurse Name: Sydney Zelaya Position: [facility] PCO OFFICE STAFF Member Role: Lifetime Consulting Physician Name: Judd Barahona RN Position: [facility] RN Member Role: Primary Care Nurse Name: Mag Harry RN Position: [facility] RN Member Role: Primary Care Nurse Name: An Blount RN Position: [facility] RN Supv Member Role: Primary Care Nurse Name: Marianna Ng RN Position: [facility] SN RN Member Role: Primary Care Nurse Name: Avani Odell RN Position: [facility] RN Member Role: Primary Care Nurse Name: Ruben Bello RN Position: [facility] RN Member Role: Primary Care Nurse Name: Zoë Thompson RN Position: [facility] RN Member Role: Primary Care Nurse Name: Araceli Simon RN Position: [facility] RN Member Role: Primary Care Nurse Name: Jorge Garcia III, MD Position: [facility] Ambulatory (view) Member Role: PCP Address: Address: [address] [place] [address] Name: Misty Nguyen RN Position: [facility] RN Member Role: Primary Care Nurse Name: Sarwat Aj RN Position: [facility] RN Member Role: Primary Care Nurse Name: Cassi Batista RN Position: [facility] RN Member Role: Primary Care Nurse Name: Daija Huitron RN Position: [facility] RN Member Role: Primary Care Nurse Name: Ellis Mayfield RN Position: [facility] RN Supv Member Role: Primary Care Nurse Name: Ayah Robison RN Position: [facility] RN Member Role: Primary Care Nurse Name: Kirstin Enriquez RN Position: [facility] RN Member Role: Primary Care Nurse Name: Jina Smalls RN Position: [facility] RN Member Role: Primary Care Nurse Name: Laura Clements RN Position: [facility] RN Member Role: Primary Care Nurse Name: Colette Syed RN Position: [facility] RN Member Role: Primary Care Nurse Name: Muriel Daley RN Position: [facility] RN Supv Member Role: Primary Care Nurse Name: Darlyn Alvarez RN Position: [facility] RN Member Role: Primary Care Nurse Name: Maribell Mejias RN Position: [facility] RN Member Role: Primary Care Nurse Name: Rachna Renteria RN Position: [facility] RN Member Role: Primary Care Nurse Name: Zohreh Pink RN Position: [facility] RN Member Role: Primary Care Nurse Name: Agustina RNSophie Position: [facility] RN Member Role: Primary Care Nurse Name: Grisel Mcgowan RN Position: [facility] RN Member Role: Primary Care Nurse Name: Nasra Smith RN Position: [facility] RN Member Role: Primary Care Nurse Name: Cindy Grullon RN Position: [facility] RN Supv Member Role: Primary Care Nurse Name: Silas Knox RN Position: [facility] ED RN W/OE and Tasks Member Role: Primary Care Nurse Name: Elham Melgar RN Position: [facility] RN Member Role: Primary Care Nurse Name: Elham Lee RN Position: [facility] RN Member Role: Primary Care Nurse Name: Dariana Mariee RN Position: [facility] RN Member Role: Primary Care Nurse Name: Ana María Cat RN Position: [facility] RN Member Role: Primary Care Nurse Name: Flor Holley Position: [facility] RN Member Role: Primary Care Nurse Name: Bret Aguirre RN Position: [facility] RN Member Role: Primary Care Nurse Name: Ghazal Moreno Position: [facility] RN Member Role: Primary Care Nurse Name: Audra Martinez RN Position: [facility] RN Member Role: Primary Care Nurse Name: Shahbaz Bobo RN Position: [facility] RN Member Role: Primary Care Nurse Name: Jennifer Yin LPN Position: [facility] RN Member Role: Primary Care Nurse Name: Alina Arce RN Position: [facility] RN Member Role: Primary Care Nurse Name: Marcelo Schneider RN Position: [facility] ED RN W/OE and Tasks Member Role: Primary Care Nurse Name: Radha Masterson RN Position: [facility] RN Member Role: Primary Care Nurse Name: Amy Larios RN Position: [facility] RN Member Role: Primary Care Nurse Name: Indira Lindsey RN Position: [facility] SN RN Member Role: Primary Care Nurse Name: Rosa Elena Pope RN Position: [facility] RN Member Role: Primary Care Nurse Name: Florentino Garcia RN Position: [facility] RN Member Role: Primary Care Nurse Name: Cristel Moreno RN Position: [facility] SN RN Member Role: Primary Care Nurse Name: Rosa Elena De León RN Position: [facility] Inspector Repairer [place] Member Role: Primary Care Nurse Name: Tulio Pina RN Position: [facility] RN Member Role: Primary Care Nurse Name: Maximiliano Claros RN Position: [facility] RN Member Role: Primary Care Nurse Name: Narda Barnes RN Position: [facility] RN Member Role: Primary Care Nurse Name: Zoë Cisse RN Position: [facility] RN Member Role: Primary Care Nurse Name: Pat Bowers RN Position: [facility] RN Member Role: Primary Care Nurse Name: Ruy Salcido RN Position: [facility] RN Member Role: Primary Care Nurse Name: Tayler Cabello RN Position: [facility] RN Member Role: Primary Care Nurse Name: Hilaria Aparicio RN Position: [facility] RN Member Role: Primary Care Nurse Name: Carly Rosado RN Position: [facility] RN Neil Member Role: Primary Care Nurse Name: Sydney Rosado RN Position: [facility] RN Member Role: Primary Care Nurse Name: Fidencio Camarena RN Position: [facility] RN Member Role: Primary Care Nurse Name: Uriel Dumont Position: [facility] RN Member Role: Primary Care Nurse Name: Selene Vazquez RN Position: [facility] RN Member Role: Primary Care Nurse Name: Dariana Becerra RN Position: [facility] RN Member Role: Primary Care Nurse Name: Leyla Verma LPN Position: [facility] RN Member Role: Primary Care Nurse Name: Rody Mays RN Position: [facility] RN Member Role: Primary Care Nurse Name: Marielos Mixon RN Position: [facility] RN Member Role: Primary Care Nurse Name: Radha Flores RN Position: [facility] RN Member Role: Primary Care Nurse Name: Rose Kyle RN Position: [facility] Inspector Repairer [place] Member Role: Primary Care Nurse Name: Aimee Salamanca Position: S RN Member Role: Primary Care Nurse Name: Jacobo Caceres Position: S RN Member Role: Primary Care Nurse Care Team Related Persons Name: STEVENSON HAMM Address: home [address] [place] [id number] Name: MELINA VARMA Address: [place] [address] Name: GARRY VARMA Address: home [address] [place] [address] Name: BRIEN [place] Address: home [address] [place] [address]
--- OUTSIDE RECORDS SUMMARY | 2023-08-15 20:25 | XMS_ITS | Continuity of Care Document ---
Author Name Unknown Organization [facility] Address [address] [place] [address]- Care Team Providers Care Polymer Tester Name Role Phone Jose LEE MD, Jorge Tsang Primary Care Physician Encounter [facility] [place] Date(s): 08/05/21 - 09/04/21 [facility] [address] [place] [address]- Allergies, Adverse Reactions, Alerts Substance Reaction Severity [...] mL, 6 Refills, Maintenance, 07/24/20 16:44:00 EDT, [facility]/pharmacy #[id number], 182, cm, 05/26/20 16:01:00 EDT, Height, 67, kg, 07/05/20 13:57:00 EDT, Dry Weight Start Date: 07/24/20 Status: Ordered albuterol CFC free 90 mcg/inh inhalation aerosol 2, puffs, Inhalation, Every 6 hours, PRN, j44.9, # 1 each, Refills 6, Tot. Refills 6, Maintenance, 07/24/20 16:44:00 EDT, Aerosol, Route to Pharmacy Electronically, [id number], [facility]/pharmacy #[id number], 182, cm, 05/26/20 16:01:00 [...] 4 hours, PRN Pain , Moderate, for 7 days, # 30 tablet, 0 Refills, Acute 09/10/21 15:46:00 EDT, 09/03/21 15:46:00 EDT, Tablet, [facility]/pharmacy #[id number], Partial fill upon patient request if the prescription is for a schedule... Start Date: 09/03/21 Stop Date: 09/10/21 Status: Ordered Docusate/Senna Tablet 1 tablet, By [...] each,6 Refills, Maintenance, 08/13/20 16:33:00 EDT, Powder, [facility]/pharmacy #[id number], 182, cm, 05/26/20 16:01:00 [...] 6, 03/31/07 11:15:26, Print MARTIN Number, [facility], [address] [place] [id number], [id number], Constant Indicator Start Date: 03/31/07 Stop Date: [...]
--- OUTSIDE RECORDS SUMMARY | 2023-08-15 20:25 | XMS_ITS | Continuity of Care Document ---
Author Name Unknown Organization [facility] ter Address [address] [place] [address]- Care Team Providers Care Fire Control Assistant Name Role Phone Jose LEE MD, Jorge Tsang Primary Care Physician [place] [facility] [place] Date(s): 12/31/21 - 01/01/[address] [address]- Discharge Disposition: A-D/C AMA Attending Physician: Abe AMAYA, Samanalejandra Admitting Physician: Ludwin Suh MD Referring Physician: [...] mL, 6 Refills, Maintenance, 07/24/20 16:44:00 EDT, [facility]/pharmacy #[id number], 182, cm, 05/26/20 16:01:00 EDT, Height, 67, kg, 07/05/20 13:57:00 EDT, Dry Weight Start Date: 07/24/20 Status: Ordered albuterol CFC free 90 mcg/inh inhalation aerosol 2, puffs, Inhalation, Every 6 hours, PRN, j44.9, # 1 each, Refills 6, Tot. Refills 6, Maintenance, 07/24/20 16:44:00 EDT, Aerosol, Route to Pharmacy Electronically, [id number], [facility]/pharmacy #[id number], 182, cm, 05/26/20 16:01:00 E... Start Date: 07/24/20 Status: Ordered aspirin 81 mg oral tablet 1 tablet = 81 mg, By Mouth, Daily, # 30 tablet, 0 Refills, Maintenance, 05/23/19 1:08:58 EDT, Tablet Start Date: 05/23/19 Status: Ordered atorvastatin 80 mg oral tablet By Mouth, Daily at supper, 0 Refills, Maintenance, 07/01/14 14:30:54, Tablet Start Date: 07/01/14 Status: Ordered azithromycin 250 mg oral tablet = 250 mg, By Mouth, Daily, for 4 days, # 4 tablet, 0 Refills, Acute 01/05/22 11:52:00 EST, 01/01/2211:52:00 EST, Tablet, [facility]/pharmacy #[id number], Partial fill upon patient request if the prescription is for a schedule II opioid drug., 184, cm, 11/08/21 7:... Start Date: 01/01/22 Stop Date: 01/05/22 Status: Ordered Docusate/Senna Tablet 1 tablet, By [...] oral capsule 300 mg, Capsule, By Mouth, 01/01/22 9:00:00 EST Start Date: 01/01/22 Stop Date: 01/01/22 Status: Completed HYDROmorphone 2 mg oral tablet 1 tablet = 2 mg, By Mouth, Every 6 hours, PRN as needed for pain, 0 Refills, Maintenance, 12/31/21 17:58:00 EST, Tablet, Partial fill upon patient request if the prescription is for a schedule II opioid drug. Start Date: 12/31/21 Status: Ordered Incruse Ellipta 62.5 mcg/inh inhalation powder 1 each, Inhalation, Every 24 hours, doses should be taken at least 24 hours apart, j44.9, # 1 each,6 Refills, Maintenance, 08/13/20 16:33:00 EDT, Powder, [facility]/pharmacy #[id number], 182, cm, 05/26/20 16:01:00 EDT, [...] oral tablet 2.5 mg, Tablet, By Mouth, 01/01/22 9:00:00 EST Start Date: 01/01/22 Stop Date: 01/01/22 Status: Completed loperamide 2 mg oral capsule [...] opioid drug. Start Date: 07/31/21 Status: Ordered nicotine 2 mg oral transmucosal gum 1 each = 2 mg, Chew, Every 2 hours, PRN as needed for smoking cessation, # 160 each, 0 Refills, Maintenance, 11/01/21 10:44:00 EST, Gum, [facility]/pharmacy #[id number], Partial fill upon patient request if the prescription is for a schedule II opioid drug., 182.8... Start Date: 11/01/21 Status: Ordered Pantoprazole = 40 mg, By Mouth, Daily, 0 Refills, Maintenance, 06/30/16 11:32:53 Start Date: 06/30/16 Status: Ordered pantoprazole 40 mg oral delayed release tablet 1 tablet = 40 mg, By Mouth, Daily in AM, # 30 tablet, 0 Refills, Maintenance, 10/07/21 17:39:00 EST, EC Tablet Start Date: 10/07/21 Status: Ordered predniSONE 20 mg oral tablet See Instructions, take po daily 2 tab x 2 days, then 1 tab x 2 days then half tab x 2 days then stop, # 7 tablet, 0 Refills, Acute 01/06/22 9:00:00 EST, 01/01/22 11:51:00 EST, Tablet, [facility]/pharmacy #[id number], Partial fill upon patient request if the prescr... Start Date: 01/01/22 Stop Date: 01/06/22 Status: Ordered simethicone 80 mg oral tablet, [...] 6, 03/31/07 11:15:26, Print MARTIN Number, [facility], [address] [place] [address], [id number], Constant Indicator Start Date: 03/31/07 Stop Date: 10/27/07 Status: Ordered Tylenol 325 mg oral tablet 650 mg, 2, tablet, By Mouth, Every 4 hours, PRN, # 30 tablet, Refills 0, Tot. Refills 0, Maintenance, Pain , Mild, 11/08/21 12:55:00 EST, Route to Pharmacy Electronically, [facility]/pharmacy #[id number], Partialfill upon patient request if the prescription is fo... Start Date: 11/08/21 Status: Ordered Problem List Condition Effective Dates [...] Exam Date Time Procedure Performing Provider Status 12/31/21 2:04 PM Chest Portable Lyssa Hill; Auth (Raymond ified) Notes: (Chest Portable) Reason For Exam: Cough RESULT: Chest Portable Chest Portable Hx of Present Illness: Pt. is from home, c o SOB with nausea ans vomiting, reports diharrhea, has nose bleeds pushpa time he blows his nose.; Reason: Cough; Clinical Question(s): Pleural Effusion COMPARISON: 11/07/2021 FINDINGS: LINES AND TUBES: None. LUNGS AND PLEURA: The lungs appear hyperinflated and hyperlucent suggesting emphysema. No focal consolidation. No pleural effusion. No pneumothorax. HEART, MEDIASTINUM AND MAMADOU: Heart is normal in size. Tortuous ectatic appearing aorta, and prominent main pulmonary artery. BONES AND SOFT TISSUES: No acute abnormality. Old right distal clavicle fracture. Multiple old right rib fractures, with postsurgical changes from ORIF of the right seventh through ninth ribs. Old mid thoracic and T12 compression fractures. IMPRESSION: No acute abnormality. Findings consistent with COPD. WSN: [id number] Ordering Physician: Vin Gabriel Dictated By: Dariana Hunter MD Dictated Date/Time: 12/31/21 2:17 pm Reviewed By: Dariana Hunter MD Signed By: Dariana Hunter MD Signed Date/Time: 12/31/21 2:17 pm Transcribed By: BERENICE Transcribed Date/Time: 12/31/21 2:15 pm Vital Signs Most recent to oldest [Reference Range]: 1 2 3 Oxygen Saturation [94-100 %] 99 % (01/01/22 7:45 AM) 100 % (01/01/22 5:55 AM) 100 % (01/01/22 3:28 AM) Pulse Rate [55-90 bpm] 96 bpm *H* (01/01/22 7:45 AM) 95 bpm *H* (01/01/22 5:55 AM) 104 bpm *H* (01/01/22 3:28 AM) Blood Pressure [90-138/55-84 mm Hg] 123/74mm Hg (01/01/22 8:19 AM) 126/78mm Hg (01/01/22 7:45 AM) 126/89mm Hg (01/01/22 5:55 AM) Respiratory Rate [16-30 br/min] 18 br/min (01/01/22 9:19 AM) 18 br/min (01/01/22 8:19 AM) 22 br/min (01/01/22 7:45 AM) Temperature [96.8-100.4 DegF] 98.5 DegF (01/01/22 7:45 AM) 98.9 DegF (01/01/22 5:55 AM) 99.1 DegF (12/31/21 7:41 PM) Liters per Minute 2 L/min (01/01/22 7:45 AM) 2 L/min (01/01/22 5:55 AM) 2 L/min (01/01/22 3:28 AM) Mode of Delivery (Oxygen) Nasal cannula (2/4/22 7:45 AM) Nasal cannula (01/01/22 5:55 AM) Nasal cannula (01/01/22 3:28 AM) Blood pressure sites Arm, left (01/01/22 2:00 AM) Arm, left (01/01/22 12:00 AM) Arm, left (12/31/21 10:00 PM) Temperature Route Oral (01/01/22 7:45 AM) Oral (01/01/22 5:55 AM) Oral (12/31/21 7:41 PM) Social History Social History Type Response Tobacco Use: 2 cigarettes a day . Sex
--- OUTSIDE RECORDS SUMMARY | 2023-08-15 20:25 | XMS_ITS | Continuity of Care Document ---
Author Name Unknown Organization [facility] Address [address] [address]- Care Team Providers Care Grainer Machine Name Role Phone Jose LEE MD, Jorge Tsang Primary Care Physician Encounter [facility] [place] Date(s): 03/05/20 - 03/12/20 [facility] [address] [address]- [facility] Attending Physician: Keegan TRACEY MD, Reginaldo Perry Allergies, Adverse Reactions, Alerts Substance Reaction Severity [...] 10:39:00 EST, Aerosol, Route to Pharmacy Electronically, [id number], [facility]/pharmacy #[id number], 182, cm, 12/26/19 9:43:00 EST, Heig... Start Date: 12/26/19 Status: Ordered apixaban = 5 mg, By Mouth, 2 times a day, To start after 7 days of 10 mg dose, 0 Refills, Maintenance, 05/27/19 14:17:22 EDT, Tablet Start Date: 05/27/19 Status: Ordered [employer], See Instructions, # 1 box, Refills [...] Refills, Soft Stop, 12/26/19 9:58:00 EST, Tablet, [facility]/pharmacy #[id number], 182, cm, 12/26/19 9:43:00 EST, Height, [...] 11:32:53 Start Date: 06/30/16 Status: Ordered predniSONE 20 mg oral tablet 2 tablet = 40 mg, By Mouth, Daily, # 20 tablet, 0 Refills, Maintenance, 03/12/20 17:24:00 EDT, Tablet, [facility]/pharmacy #[id number], 182, cm, 03/05/20 9:03:00 EDT, Height, 56.4, kg, 07/11/19 18:58:00 EDT, Dry Weight Start Date: 03/12/20 Status: Ordered predniSONE 5 mg oral tablet See Instructions, 05/03-5/5-4/4-3/3-2/2-1/ tablets 2 days each, # 42 tablet, 0 Refills, Maintenance,03/12/20 17:23:00 EDT, [facility]/pharmacy #[id number], 182, cm, 03/05/20 9:03:00 EDT, Height, 56.4, kg, 07/11/19 18:58:00 EDT, Dry Weight Start Date: 03/12/20 Status: Ordered predniSONE 5 mg oral tablet See Instructions, 05/03-5/5-4/4-3/3-2/2-1/1 tablets 2 days each, # 42 tablet, 0 Refills, Maintenance,03/05/20 9:43:00 EDT, [facility]/pharmacy #[id number], 182, cm, 03/05/20 9:03:00 EDT, Height, 56.4, kg, 07/11/1918:58:00 EDT, Dry Weight Start Date: 03/05/20 Status: Ordered Senna 8.6 mg oral tablet [...] 6, 03/31/07 11:15:26, Print MARTIN Number, [facility], [address] [place] [id number], [phone], Constant Indicator Start Date: 03/31/07 Stop Date: [...] 6 Refills, Maintenance, 01/24/20 10:21:00 EST, Aerosol, [facility]/pharmacy #[id number], 182, cm, 12/26/19 9:43:00 EST, Height, [...] Multiple fractures of ribs(Confirmed) 01/06/11 Active Old [place] (myocardial infarctio n) X 3(Confirmed) Active PVD (peripheral vascular disease)(Confirmed) Active Active smoker, 1/2 upto 2 pp d X >30 years(Confirmed) Active 1Cardiac stents 1991, 1995 Vital Signs Most recent to oldest [Reference Range]: 1 Height 182 cm (03/05/20 9:03 AM) Weight 66.36 kg (03/05/20 9:03 AM) Body Mass Index [18.5-24.99] 20.03 (03/05/20 9:03 AM) Weight Obtained Via Patient/family state d (03/05/20 9:03 AM) Social History Social History Type Response Tobacco Use: Former smoker.. Sex
--- OUTSIDE RECORDS SUMMARY | 2023-08-15 20:25 | XMS_ITS | Continuity of Care Document ---
Author Name Unknown Organization [facility] ter Address [address] [place] [address]- Care Team Providers Care Deli Bakery Clerk Name Role Phone Jose LEE MD, Jorge Tsang Primary Care Physician Encounter [facility] [place] Date(s): 09/15/21 - 09/17/[address] [address]- Encounter Diagnosis Community acquired pneumonia(Final) - 09/15/21 Pneumonia(Final) - 09/17/21 Discharge Disposition: A-Transfer VNA/Home Health Attending Physician: Keyona Fernandez DO Admitting Physician: Angeli AMAYA, Ludwin Referring Physician: Not on Staff, Referring MD [...] 6 Refills, Maintenance, 07/24/20 16:44:00 EDT, [facility]/pharmacy #[id number], 182, cm, 05/26/20 16:01:00 EDT, Height, 67, kg, 07/05/20 13:57:00 EDT, Dry Weight Start Date: 07/24/20 Status: Ordered albuterol CFC free 90 mcg/inh inhalation aerosol 2, puffs, Inhalation, Every 6 hours, PRN, j44.9, # 1 each, Refills 6, Tot. Refills 6, Maintenance, 07/24/20 16:44:00 EDT, Aerosol, Route to Pharmacy Electronically, [id number], [facility]/pharmacy #[id number], 182, cm, 05/26/20 16:01:00 [...] hours, PRN for Pain , Moderate, Routine, 09/16/21 13:05:00 EDT Start Date: 09/16/21 Stop Date: 09/17/21 Status: Discontinued Dilaudid 2 mg oral tablet 1 tablet = 2 mg, By Mouth, Every 6 hours, PRN as needed for pain, # 10 tablet, 0 Refills, Maintenance, 09/11/21 20:08:00 EDT, Tablet, [facility]/pharmacy #[id number], 182.8, cm, 07/23/21 16:15:00 EDT, Height, 62.18, kg, 07/18/21 8:54:00 EDT, Dry Weight Start Date: 09/11/21 Stop Date: 09/14/21 Status: Ordered Dilaudid Inj 0.2 mg, Injection, IV Push Slowly, Once, PRN for Pain , Severe, KIKI, 09/17/21 9:30:00 EDT Start Date: 09/17/21 Stop Date: 09/17/21 Status: Completed Docusate/Senna Tablet 1 tablet, By Mouth, 2 [...] oral capsule 400 mg, Capsule, By Mouth, 09/17/21 9:00:00 EDT Start Date: 09/17/21 Stop Date: 09/17/21 Status: Completed Incruse Ellipta 62.5 mcg/inh inhalation powder 1 each, Inhalation, Every 24 hours, doses should be taken at least 24 hours apart, j44.9, # 1 each,6 Refills, Maintenance, 08/13/20 16:33:00 EDT, Powder, [facility]/pharmacy #[id number], 182, cm, 05/26/20 16:01:00 [...] oral tablet 2.5 mg, Tablet, By Mouth, 09/17/21 9:00:00 EDT Start Date: 09/17/21 Stop Date: 09/17/21 Status: Completed loperamide 2 mg oral capsule [...] 03/31/07 11:15:26, Print MARTIN Number, [facility], [address] [place] [id number], [phone], Constant Indicator Start Date: 03/31/07 Stop Date: 10/27/07 Status: Ordered Toprol XL 25 mg oral tablet, extended release 25 mg, XL Tablet, By Mouth, 09/17/21 9:00:00 EDT Start Date: 09/17/21 Stop Date: 09/17/21 Status: Completed Problem List Condition Effective Dates [...] vascular disease)(Confirmed) Active 1Cardiac stents 1991, 1995 Results Radiology Reports * Exam Date Time Procedure Performing Provider Status 09/15/21 3:59 PM Chest Portable Rodriguez Christopherr; Auth (Verified) Notes: (Chest Portable) Reason For Exam: COPD RESULT: Chest Portable Chest Portable Hx of Present Illness: sob previous fall with right clavicle fracture known blood clot in left leg with ulcer; Reason: COPD; Clinical Question(s): Pneumonia COMPARISON: Chest radiograph 07/24/2021 FINDINGS: LINES AND TUBES: None. LUNGS AND PLEURA: New left suprahilar density. The lungs appear hyperinflated and hyperlucent suggesting COPD. No pleural effusion. No pneumothorax. HEART, MEDIASTINUM AND MAMADOU: Heart is normal in size. Normal upper mediastinal and hilar contour. BONES AND SOFT TISSUES: No acute abnormality. Old right rib fractures status post fixation of the seventh through ninth ribs, with an unchanged screw again noted projecting over the right upper lung. IMPRESSION: New left suprahilar density could reflect pneumonia or atelectasis. Follow-up to resolution recommended. Findings suggesting COPD. WSN: [id number] Ordering Physician: Julieta Moreno Dictated By: Dariana Hunter MD Dictated Date/Time: 09/15/21 4:04 pm Reviewed By: Dariana Hunter MD Signed By: Dariana Hunter MD Signed Date/Time: 09/15/21 4:04 pm Transcribed By: BERENICE Transcribed Date/Time: 09/15/21 4:02 pm Vital Signs Most recent to oldest [Reference Range]: 1 2 3 Height 183 cm (09/16/21 4:48 PM) 183 cm (09/16/21 8:29 AM) 183 cm (09/15/21 11:47 PM) Weight 61 kg (09/15/21 11:47 PM) Oxygen Saturation [94-100 %] 98 % (09/17/21 8:00 AM) 99 % (09/17/21 12:00 AM) 97 % (09/16/21 8:00 PM) Pulse Rate [55-90 bpm] 70 bpm (09/17/21 8:04 AM) 70 bpm (09/17/21 12:00 AM) 70 bpm (09/16/21 8:00 PM) Body Mass Index [18.5-24.99] 18.21 *L* (09/15/21 11:47 PM) Blood Pressure [90-138/55-84 mm Hg] 107/59mm Hg (09/17/21 8:04 AM) 107/59mm Hg (09/17/21 8:03 AM) 115/74mm Hg (09/17/21 12:00 AM) Respiratory Rate [16-30 br/min] 18 br/min (09/17/21 10:15 AM) 20 br/min (09/17/21 8:03 AM) 18 br/min (09/17/21 7:30 AM) Temperature [96.8-100.4 DegF] 98.4 DegF (09/17/21 8:00 AM) 98.0 DegF (09/17/21 12:00 AM) 98.1 DegF (09/16/21 8:00 PM) Liters per Minute 2 L/min (09/17/21 8:00 AM) 5 L/min (09/17/21 12:00 AM) 3 L/min (09/16/21 8:00 PM) Mode of Delivery (Oxygen) Nasal cannula (09/17/21 8:00 AM) Nasal cannula (09/17/21 12:00 AM) Nasal cannula (09/16/21 8:00 PM) Blood pressure sites Arm, left (09/17/21 8:00 AM) Arm, left (09/17/21 12:00 AM) Arm, left (09/16/21 8:00 PM) Temperature Route Oral (10/21/21 8:00 AM) Oral (09/17/21 12:00 AM) Oral (09/16/21 8:00 PM) Dry Weight 61 kg (09/15/21 11:47 PM) Social History Social History Type Response Tobacco Use: 2 cigarettes a day . Sex
--- OUTSIDE RECORDS SUMMARY | 2023-08-15 20:25 | XMS_ITS | Continuity of Care Document ---
Author Name Unknown Organization [facility] Address Unknown Care Team Providers Care Calcine Furnace Tender Name Role Phone Jose LEE MD, Jorge Tsang Primary Care Physician Encounter [facility] Date(s): 08/07/21 - 09/06/21 [facility] Allergies, Adverse Reactions, Alerts Substance Reaction Severity [...] mL, 6 Refills, Maintenance, 07/24/20 16:44:00 EDT, [facility]/pharmacy #[id number], 182, cm, 05/26/20 16:01:00 EDT, Height, 67, kg, 07/05/20 13:57:00 EDT, Dry Weight Start Date: 07/24/20 Status: Ordered albuterol CFC free 90 mcg/inh inhalation aerosol 2, puffs, Inhalation, Every 6 hours, PRN, j44.9, # 1 each, Refills 6, Tot. Refills 6, Maintenance, 07/24/20 16:44:00 EDT, Aerosol, Route to Pharmacy Electronically, [id number], [facility]/pharmacy #[id number], 182, cm, 05/26/20 16:01:00 E... [...] 09/10/21 15:46:00 EDT, 09/03/21 15:46:00 EDT, Tablet, [facility]/pharmacy #[id number], Partial fill upon patient request [...] each,6 Refills, Maintenance, 08/13/20 16:33:00 EDT, Powder, [facility]/pharmacy #[id number], 182, cm, 05/26/20 16:01:00 EDT, [...] 0 Refills, Maintenance, 06/30/16 11:32:53 Start Date: 8/3/16 Status: Ordered Robitussin DM Liquid 10 mL, [...] 6, 03/31/07 11:15:26, Print MARTIN Number, [facility], [address] [place] [id number], [phone], Constant Indicator Start Date: 03/31/07 Stop Date: [...]
--- OUTSIDE RECORDS SUMMARY | 2023-08-15 20:25 | XMS_ITS | Continuity of Care Document ---
Author Name Unknown Organization [facility] Address [address] [place] [address]- Care Team Providers Care Gun Club Manager Name Role Phone Jose LEE MD, Jorge Tsang Primary Care Physician [phone] Encounter [facility] [place] Date(s): 07/17/22 - 07/17/[address] [address]- Encounter Diagnosis Chronic pain(Final) - 07/17/22 COPD without exacerbation(Final) - 07/17/22 Discharge Disposition: A-D/C Home Attending Physician: Michele Calvo MD Admitting Physician: Michele Calvo MD Referring Physician: Not on Staff, Referring [...] 0 Refills, Maintenance, 07/10/22 15:05:00 EDT, Tablet, [facility]/pharmacy #[id number], Partial fill upon patient request [...] Inj 0.5 mg, Injection, IV Push Slowly, Once, STAT, 07/17/22 4:17:00 EDT, Stop date 07/17/22 4:17:00 EDT Start Date: 07/17/22 Stop Date: 07/17/22 Status: Completed Dilaudid Inj 0.5 mg, Injection, IV Push Slowly, Once, STAT, 07/17/22 5:38:00 EDT, Stop date 07/17/22 5:38:00 EDT Start Date: 07/17/22 Stop Date: 07/17/22 Status: Completed docusate sodium 100 mg oral capsule 1 capsule = 100 mg, By Mouth, 2 times a day Start Date: 04/27/22 Status: Ordered duloxetine 60 [...] Maintenance,05/16/22 16:21:00 EDT, Route to Pharmacy Electronically, [facility], Partial fill upon patient request if [...] Mouth, Daily Start Date: 04/27/22 Status: Ordered Symbicort 160mcg/4.5mcg Inhaler 2, puffs, [...] Multiple fractures of ribs(Confirmed) 01/06/11 Active Old [place] (myocardial infarctio n) X 3(Confirmed) Active PVD (peripheral vascular disease)(Confirmed) Active Underweight(Confirmed) Active 1Cardiac stents 1991, 1995 Results Radiology Reports * Exam Date Time Procedure Performing Provider Status 07/17/22 4:53 AM Chest 2 Views Frontal and Lat Disha Gutierrez (Verified) Notes: (Chest 2 Views Frontal and Lat) Reason For Exam: Shortness of Breath RESULT: Chest 2 Views Frontal and Lat Chest 2 Views Frontal and Lat Hx of Present Illness: R sided CP, hx cardiac stents, 3 MA's, and COPD on 3L nasal cannula at home.Pain started a couple hours ago, present when lying down.; Reason: Shortness of Breath; Clinical Question(s): Pleural Effusion COMPARISON: Multiple priors, most recent 07/06/2022. FINDINGS: LINES AND TUBES: None. LUNGS AND PLEURA: No focal consolidation or overt pulmonary edema. No pleural effusion. No pneumothorax. HEART, MEDIASTINUM AND MAMADOU: Heart is normal in size. Partial calcification of the aortic arch. No acute abnormality of the upper mediastinal contours. BONES AND SOFT TISSUES: No acute abnormality. Unchanged ORIF of posterior right ribs 7, 8 and 9. Unchanged screw projects over the posterior aspect of the right sixth rib. IMPRESSION: No acute abnormality. WSN: [id number] Ordering Physician: Michele Calvo Dictated By: Talon Chamorro MD Dictated Date/Time: 07/17/22 10:24 a Reviewed By: Talon Chamorro MD Signed By: Talon Chamorro MD Signed Date/Time: 07/17/22 10:24 am Transcribed By: BERENICE Transcribed Date/Time: 07/17/22 10:20 am Vital Signs Most recent to oldest [Reference Range]: 1 2 3 Height 183 cm (07/17/22 2:42 AM) Weight 60 kg (07/17/22 2:42 AM) Oxygen Saturation [94-100 %] 96 % (07/17/22 5:54 AM) 97 % (07/17/22 4:11 AM) 98 % (07/17/22 2:42 AM) Pulse Rate [55-90 bpm] 100 bpm *H* (07/17/22 5:54 AM) 98 bpm *H* (07/17/22 4:11 AM) 95 bpm *H* (07/17/22 2:42 AM) Blood Pressure [90-138/55-84 mm Hg] 141/78mm Hg *H* (07/17/22 5:54 AM) 128/65mm Hg (07/17/22 4:11 AM) 133/88mm Hg (07/17/22 2:42 AM) Respiratory Rate [16-30 br/min] 18 br/min (07/17/22 5:54 AM) 18 br/min (07/17/22 5:44 AM) 14 br/min *L* (07/17/22 4:34 AM) Temperature [96.8-100.4 DegF] 98.9 DegF (07/17/22 5:54 AM) 99.5 DegF (07/17/22 4:11 AM) 100 DegF (07/17/22 2:42 AM) Mode of Delivery (Oxygen) Room air (07/17/22 5:54 AM) Room air (07/17/22 4:11 AM) Room air (07/17/22 2:42 AM) Temperature Route Oral (07/17/22 2:42 AM) Dry Weight 60 kg (07/17/22 2:42 AM) Social History Social History Type Response Tobacco Use: 4 or less cigar ettes(less than 1/4 pack)/day in last 30 days. Sex
--- OUTSIDE RECORDS SUMMARY | 2023-08-15 20:25 | XMS_ITS | Continuity of Care Document ---
Author Name Unknown Organization [facility] Address [address] [place] [address]- Care Team Providers Care Retail Department Reset Name Role Phone Jose LEE MD, Jorge Tsang Primary Care Physician Encounter [facility] Date(s): 08/20/20 - 09/19/20 [facility] [address] [place] [id number]- [facility] Allergies, Adverse Reactions, Alerts Substance Reaction Severity [...] 16:44:00 EDT, Aerosol, Route to Pharmacy Electronically, [id number], [facility]/pharmacy #[id number], 182, cm, 05/26/20 16:01:00 E... [...] each,6 Refills, Maintenance, 08/13/20 16:33:00 EDT, Powder, [facility]/pharmacy #[id number], 182, cm, 05/26/20 16:01:00 EDT, [...] 06/30/16 Status: Ordered predniSONE 5 mg oral delayed release tablet 1 tablet = 5 mg, By Mouth, Daily, 20mg daily for 7 days, followed by 15mg for 7 days, 10mg for 7 days, then 5mg for 7 days. do not chew or break tablets with food, # 80 tablet, 0 Refills, Maintenance, 09/18/20 13:41:00 EDT, CR Tablet, [facility] Start Date: 09/18/20 Status: Ordered predniSONE 5 mg oral tablet 1 tablet = 5 mg, By Mouth, Daily, 20mg daily x one week then 15mg daily x one week then 10mg daily x one week then 5mg daily x one week, # 80 tablet, 0 Refills, Maintenance, 09/18/20 19:55:00 EDT, [facility]/pharmacy #[id number], 182, cm, 09/18/20 13:10:00 EDT,... Start Date: 09/18/20 Status: Ordered roflumilast 500 mcg oral tablet 1 tablet = 500 mcg, By Mouth, Daily, # 30 tablet, 11 Refills, Maintenance, 05/15/20 13:53:00 EDT, [facility]/pharmacy #[id number], 182, cm, 05/15/20 13:20:00 EDT, [...] 03/31/07 11:15:26, Print MARTIN Number, [facility], [address] [place] [id number], [phone], Constant Indicator Start Date: 03/31/07 Stop Date: [...]
--- OUTSIDE RECORDS SUMMARY | 2023-08-15 20:25 | XMS_ITS | Continuity of Care Document ---
Author Name Unknown Organization [facility] Infect[facility] Disease Address [address] [place] [address]- Care Team Providers Care Groover And Turner Name Role Phone Jose LEE MD, Jorge Tsang Primary Care Physician [phone] [place] [facility] [place]): [place] 12/16/22 [facility] Infect[facility] Disease [address], [place] [address] Attending Physician: Deepika AMAYA, Donaldo Pereira Admitting Physician: Donaldo Poe MD Referring Physician: Jorge Garcia III, MD Allergies, Adverse Reactions, Alerts Substance Reaction Severity Status naproxen lesions on lips Active Toradol Morphine allergy Metaxalone Naproxen Cephalexin allergy hives Persistent Mild Active Keflex 1 rash Active Skelaxin H/O: migraine Active 1tolerates pip/tazo 11/17 Immunizations Given and Recorded Vaccine Date Status Refusal Reason [id number] 12y+ bivalent booster vax 08/23/22 Recorded SARS-CoV-2 [...] Refills, Maintenance, 07/16/22 12:59:00 EDT, Tablet, [facility]/pharmacy [facility][id number], Partial fill upon patient [...] fractures of ribs Confirmed 01/06/11 Active Old MS (myocardial infarction) X 3 Confirmed Active PVD (peripheral vascular disease) Confirmed Active Underweight Confirmed Active 1Cardiac stents 1991, 1995 Social History Social History Type Response Tobacco Use: 4 or less cigar ettes(less than 1/4 pack)/day in last 30 days. Sex Patient Care team information Care Team Personnel Name: Radha Hsieh RN Position: [facility] RN Member Role: Primary Care Nurse Name: Glo Camarena RN Position: [facility] RN Member Role: Primary Care Nurse Name: Fatimah Bennett RN Position: [facility] RN Member Role: Primary Care Nurse Name: Mariely Hardy RN Position: [facility] RN Member Role: Primary Care Nurse Name: Marleen Uriarte RN Position: [facility] RN Member Role: Primary Care Nurse Name: Sydney Zelaya Position: [facility] PCO OFFICE STAFF Member Role: Lifetime Consulting Physician Name: Judd Barahona RN Position: [facility] RN Member Role: Primary Care Nurse Name: Mag Harry RN Position: [facility] RN Member Role: Primary Care Nurse Name: An Blount RN Position: [facility] RN Supv Member Role: Primary Care Nurse Name: Marianna Ng RN Position: [facility] SN RN Member Role: Primary Care Nurse Name: Avani Odell RN Position: [facility] RN Member Role: Primary Care Nurse Name: Ruben Bello RN Position: [facility] RN Member Role: Primary Care Nurse Name: Zoë Thompson RN Position: [facility] RN Member Role: Primary Care Nurse Name: Araceil Simon RN Position: [facility] RN Member Role: Primary Care Nurse Name: Jorge Garcia III, MD Position: [facility] Ambulatory (view) Member Role: PCP Address: Address: [address] [place] [address] Name: Misty Nguyen RN Position: [facility] RN Member Role: Primary Care Nurse Name: Sarwat Aj RN Position: [facility] RN Member Role: Primary Care Nurse Name: Cassi Batista RN Position: [facility] RN Member Role: Primary Care Nurse Name: Daija Huitron RN Position: [facility] RN Member Role: Primary Care Nurse Name: Ellis Mayfield RN Position: [facility] RN Supv Member Role: Primary Care Nurse Name: Ayah Robison RN Position: [facility] RN Member Role: Primary Care Nurse Name: Kirstin Enriquez RN Position: [facility] RN Member Role: Primary Care Nurse Name: Jina Smalls RN Position: [facility] RN Member Role: Primary Care Nurse Name: Laura Clements RN Position: [facility] RN Member Role: Primary Care Nurse Name: Colette Syed RN Position: [facility] RN Member Role: Primary Care Nurse Name: Muriel Daley RN Position: [facility] RN Supv Member Role: Primary Care Nurse Name: Darlyn Alvarez RN Position: [facility] RN Member Role: Primary Care Nurse Name: Maribell Mejisa RN Position: [facility] RN Member Role: Primary Care Nurse Name: Rachna Renteria RN Position: [facility] RN Member Role: Primary Care Nurse Name: Zohreh Pink RN Position: [facility] RN Member Role: Primary Care Nurse Name: Agustina RNSophie Position: [facility] RN Member Role: Primary Care Nurse Name: Grisel Mcgowan RN Position: [facility] RN Member Role: Primary Care Nurse Name: Nasra Smith RN Position: [facility] RN Member Role: Primary Care Nurse Name: Cindy Grullon RN Position: [facility] RN Supv Member Role: Primary Care Nurse Name: Silas Knox RN Position: [facility] ED RN W/OE and Tasks Member Role: Primary Care Nurse Name: Elham Melgar RN Position: [facility] RN Member Role: Primary Care Nurse Name: Elham Lee RN Position: [facility] RN Member Role: Primary Care Nurse Name: Dariana Mariee RN Position: [facility] RN Member Role: Primary Care Nurse Name: Ana María Cat RN Position: [facility] RN Member Role: Primary Care Nurse Name: Flor Holley Position: [facility] RN Member Role: Primary Care Nurse Name: Bret Aguirre RN Position: [facility] RN Member Role: Primary Care Nurse Name: Ghazal Moreno Position: [facility] RN Member Role: Primary Care Nurse Name: Audra Martinez RN Position: [facility] RN Member Role: Primary Care Nurse Name: Shahbaz Bobo RN Position: [facility] RN Member Role: Primary Care Nurse Name: Jennifer Yin LPN Position: [facility] RN Member Role: Primary Care Nurse Name: Alina Arce RN Position: [facility] RN Member Role: Primary Care Nurse Name: Marcelo Schneider RN Position: [facility] ED RN W/OE and Tasks Member Role: Primary Care Nurse Name: Radha Masterson RN Position: [facility] RN Member Role: Primary Care Nurse Name: Amy Larios RN Position: [facility] RN Member Role: Primary Care Nurse Name: Indira Lindsey RN Position: [facility] SN RN Member Role: Primary Care Nurse Name: Rosa Elena Pope RN Position: [facility] RN Member Role: Primary Care Nurse Name: Florentino Garcia RN Position: [facility] RN Member Role: Primary Care Nurse Name: Cristel Moreno RN Position: [facility] SN RN Member Role: Primary Care Nurse Name: Rosa Elena De León RN Position: [facility] Nut Grinder Member Role: Primary Care Nurse Name: Tulio Pina RN Position: [facility] RN Member Role: Primary Care Nurse Name: Maximiliano Claros RN Position: [facility] RN Member Role: Primary Care Nurse Name: Narda Barnes RN Position: [facility] RN Member Role: Primary Care Nurse Name: Zoë Cisse RN Position: [facility] RN Member Role: Primary Care Nurse Name: Pat Bowers RN Position: [facility] RN Member Role: Primary Care Nurse Name: Ruy Salcido RN Position: [facility] RN Member Role: Primary Care Nurse Name: Tayler Cabello RN Position: [facility] RN Member Role: Primary Care Nurse Name: Hilaria Aparicio RN Position: [facility] RN Member Role: Primary Care Nurse Name: Carly Rosado RN Position: [facility] RN Neil Member Role: Primary Care Nurse Name: Sydney Rosado RN Position: [facility] RN Member Role: Primary Care Nurse Name: Fidencio Camarena RN Position: [facility] RN Member Role: Primary Care Nurse Name: Uriel Dumont Position: [facility] RN Member Role: Primary Care Nurse Name: Selene Vazquez RN Position: [facility] RN Member Role: Primary Care Nurse Name: Dariana Becerra RN Position: [facility] RN Member Role: Primary Care Nurse Name: Leyla Verma LPN Position: [facility] RN Member Role: Primary Care Nurse Name: Rody Mays RN Position: [facility] RN Member Role: Primary Care Nurse Name: Marielos Mixon RN Position: [facility] RN Member Role: Primary Care Nurse Name: Radha Flores RN Position: [facility] RN Member Role: Primary Care Nurse Name: Rose Kyle RN Position: [facility] Nut Grinder Member Role: Primary Care Nurse Name: Aimee Salamanca Position: S RN Member Role: Primary Care Nurse Name: Jacobo Caceres Position: S RN Member Role: Primary Care Nurse Care Team Related Persons Name: STEVENSON HAMM Address: home [address] [place] [id number] Name: MELINA VARMA Address: [place] [address] Name: GARRY VARMA Address: home [address] [place] [address] Name: BRIEN LANCASTER Address: home [address] [place] [address]
--- OUTSIDE RECORDS SUMMARY | 2023-08-15 20:25 | XMS_ITS | Continuity of Care Document ---
Author Name Unknown Organization [facility] Address [address] [place] [address]- Care Team Providers Care Infection Prevention Coordinator Name Role Phone Jose LEE MD, Jorge Tsang Primary Care Physician Encounter [facility] [place] Date(s): 05/20/22 - 07/08/22 [facility] [address] [place], [place] [address] Attending Physician: Delmar Gonzalez MD Admitting Physician: [...] Maintenance,05/16/22 16:21:00 EDT, Route to Pharmacy Electronically, [facility], Partial fill upon patient request if the prescription is for a sched... Start Date: 05/16/22 Status: Ordered Hydromorphone = 2 mg, By Mouth, Every 4 hours, PRN Pain , Moderate, 0 Refills, Maintenance, 07/06/22 23:23:00 EDT, Partial fill upon patient request if the prescription is for a schedule II opioid drug. Start Date: 07/06/22 Status: Ordered Incruse Ellipta 62.5 mcg/inh inhalation [...] tablet, 0 Refills, Maintenance, 06/22/22 15:01:00 EDT, [facility], Partial fill upon patient request if [...]
--- OUTSIDE RECORDS SUMMARY | 2023-08-15 20:25 | XMS_ITS | Continuity of Care Document ---
Author Name Unknown Organization [facility] Address [address] [place] [address]- Care Team Providers Care Social Services Designee Name Role Phone Jose LEE MD, Jorge Tsang Primary Care Physician [phone] Encounter [facility] [place] Date(s): 12/24/22 - 01/23/23 [facility] [address] [place] [address]- Attending Physician: Admtr, Anabel Admitting Physician: Admtr, Ar8 Referring Physician: Admtr, Ar8 Allergies, Adverse Reactions, Alerts Substance Reaction Severity Status Keflex 1 rash Active naproxen lesions on lips Active Toradol Morphine allergy Metaxalone Naproxen Cephalexin allergy hives Persistent Mild Active Skelaxin H/O: migraine Active 1tolerates pip/tazo 11/17 Immunizations Given and Recorded Vaccine Date Status Refusal Reason [id number] 12y+ bivalent booster vax 08/23/22 Recorded SARS-CoV-2 [...] fractures of ribs Confirmed 01/06/11 Active Old PR (myocardial infarction) X 3 Confirmed Active PVD [...] Care Nurse Name: Mariely Hardy RN Position: [facility] RN Member Role: Primary Care Nurse Name: Marleen Uriarte RN Position: [facility] RN Member Role: Primary Care Nurse Name: Sydney Zelaya Position: [facility] PCO OFFICE STAFF Member Role: Lifetime Consulting Physician Name: Judd Barahona RN Position: [facility] RN Member Role: Primary Care Nurse Name: Mag Harry RN Position: [facility] RN Member Role: Primary Care Nurse Name: An Blount RN Position: [facility] RN Supv Member Role: Primary Care Nurse Name: Marianna Ng RN Position: [facility] SN RN Member Role: Primary Care Nurse Name: Avani Odell RN Position: [facility] RN Member Role: Primary Care Nurse Name: Lisbet Hickman RN Position: [facility] RN Member Role: Primary Care Nurse Name: Ruben Bello RN Position: [facility] RN Member Role: Primary Care Nurse Name: Araceli Simon RN Position: [facility] RN Member Role: Primary Care Nurse Name: Moni Dugan RN Position: [facility] RN Member Role: Primary Care Nurse Name: Jorge Garcia III, MD Position: [facility] Ambulatory (view) Member Role: PCP Address: Address: [address] [place] [id number] Name: Misty Nguyen RN Position: [facility] RN Member Role: Primary Care Nurse Name: Joyce Cobb Position: [facility] RN Member Role: Primary Care Nurse Name: Sarwat Aj RN Position: [facility] RN Member Role: Primary Care Nurse Name: Cassi Batista RN Position: [facility] RN Member Role: Primary Care Nurse Name: Yanni Holland RN Position: [facility] RN Member Role: Primary Care Nurse Name: Daija Huitron RN Position: [facility] RN Member Role: Primary Care Nurse Name: Ellis Mayfield RN Position: [facility] RN Supv Member Role: Primary Care Nurse Name: Ayah Robison RN Position: [facility] RN Member Role: Primary Care Nurse Name: Kirstin Enriquez RN Position: [facility] RN Member Role: Primary Care Nurse Name: Radha Moreno RN Position: [facility] RN Member Role: Primary Care Nurse Name: Jina Smalls RN Position: [facility] RN Member Role: Primary Care Nurse Name: Laura Clements RN Position: [facility] RN Member Role: Primary Care Nurse Name: Colette Syed RN Position: [facility] RN Member Role: Primary Care Nurse Name: Muriel Daley RN Position: [facility] RN Supv Member Role: Primary Care Nurse Name: Rachna Renteria RN Position: [facility] RN Member Role: Primary Care Nurse Name: Zohreh Pink RN Position: [facility] RN Member Role: Primary Care Nurse Name: Sophie Berrios RN Position: [facility] RN Member Role: Primary Care Nurse Name: Grisel Mcgowan RN Position: [facility] RN Member Role: Primary Care Nurse Name: Uyen Mitchell RN Position: [facility] RN Member Role: Primary Care Nurse Name: Nasra Smith RN Position: [facility] PCO w/OE and EZ Script Member Role: Primary Care Nurse Name: Cindy Grullon RN Position: [facility] RN Supv Member Role: Primary Care Nurse Name: Silas Knox RN Position: [facility] RN Member Role: Primary Care Nurse Name: Elham Lee RN Position: [facility] PCO RN Member Role: Primary Care Nurse Name: Dariana Mariee RN Position: [facility] RN Member Role: Primary Care Nurse Name: Ana María Cat RN Position: [facility] RN Member Role: Primary Care Nurse Name: Flor Holley Position: [facility] RN Member Role: Primary Care Nurse Name: Bret Aguirre RN Position: [facility] RN Member Role: Primary Care Nurse Name: Ghazal Moreno Position: [facility] RN Member Role: Primary Care Nurse Name: Audra Martinez RN Position: [facility] RN Member Role: Primary Care Nurse Name: Shahbaz Bobo RN Position: [facility] RN Member Role: Primary Care Nurse Name: Jennifer Yin LPN Position: [facility] RN Member Role: Primary Care Nurse Name: Alina Arce RN Position: [facility] RN Member Role: Primary Care Nurse Name: Marcelo Schneider RN Position: [facility] ED RN W/OE and Tasks Member Role: Primary Care Nurse Name: Radha Masterson RN Position: [facility] RN Member Role: Primary Care Nurse Name: Landy Villarreal RN Position: [facility] RN Member Role: Primary Care Nurse Name: Amy Larios RN Position: [facility] RN Member Role: Primary Care Nurse Name: Indira Lindsey RN Position: [facility] SN RN Member Role: Primary Care Nurse Name: Rosa Elena Pope RN Position: [facility] RN Member Role: Primary Care Nurse Name: Florentino Garcia RN Position: [facility] RN Member Role: Primary Care Nurse Name: Cristel Moreno RN Position: [facility] SN RN Member Role: Primary Care Nurse Name: Rosa Elena De León RN Position: [facility] Hospital Copyright Manager Member Role: Primary Care Nurse Name: Tulio Pina RN Position: [facility] RN Member Role: Primary Care Nurse Name: Maximiliano Claros RN Position: [facility] RN Member Role: Primary Care Nurse Name: Narda Barnes RN Position: [facility] RN Member Role: Primary Care Nurse Name: Zoë Cisse RN Position: [facility] RN Member Role: Primary Care Nurse Name: Pat Bowers RN Position: [facility] SN RN Member Role: Primary Care Nurse Name: Ruy Salcido RN Position: [facility] RN Member Role: Primary Care Nurse Name: Tayler Cabello RN Position: [facility] RN Member Role: Primary Care Nurse Name: Hilaria Aparicio RN Position: [facility] RN Member Role: Primary Care Nurse Name: Carly Rosado RN Position: [facility] RN Neil Member Role: Primary Care Nurse Name: Taryn Rosado RN Position: [facility] RN Member Role: Primary Care Nurse Name: Sydney Rosado RN Position: [facility] RN Member Role: Primary Care Nurse Name: Fidencio Camarena RN Position: [facility] RN Member Role: Primary Care Nurse Name: Uriel Dumont Position: [facility] RN Member Role: Primary Care Nurse Name: Selene Vazquez RN Position: [facility] RN Member Role: Primary Care Nurse Name: Dariana Becerra RN Position: [facility] RN Member Role: Primary Care Nurse Name: Leyla Verma LPN Position: [facility] RN Member Role: Primary Care Nurse Name: Rody Mays RN Position: [facility] RN Member Role: Primary Care Nurse Name: Marielos Mixon RN Position: [facility] RN Member Role: Primary Care Nurse Name: Radha Flores RN Position: [facility] RN Member Role: Primary Care Nurse Name: Rose Kyle RN Position: [facility] Hospital Copyright Manager Member Role: Primary Care Nurse Name: Aimee Salamanca Position: [facility] RN Member Role: Primary Care Nurse Name: Jacobo Caceres Position: [facility] RN Member Role: Primary Care Nurse Care Team Related Persons Name: STEVENSON HAMM Address: home [address] [place] [address] Name: MELINA VARMA Address: [place] [address] Name: GARRY VARMA Address: home [address] [place] [id number] Name: BRIEN LANCASTER Address: home [address] [place] [address]
--- OUTSIDE RECORDS SUMMARY | 2023-08-15 20:25 | XMS_ITS | Continuity of Care Document ---
Author Name Unknown Organization [facility] Address [address] [place] [address]- Care Team Providers Care Business Assistant Name Role Phone Jose LEE MD, Jorge Tsang Primary Care Physician Encounter [facility] [place] Date(s): 11/16/22 - 12/16/22 [facility] [address] [place] [address]- Attending Physician: Anabel Mendosa Admitting Physician: Anabel Mendosa Referring Physician: AdmtrAnabel Allergies, Adverse Reactions, Alerts Substance Reaction Severity Status naproxen lesions on lips Active Toradol Morphine allergy Metaxalone Naproxen Cephalexin allergy hives Persistent Mild Active Keflex 1 rash Active Skelaxin H/O: migraine Active 1tolerates pip/tazo 11/17 Immunizations Given and Recorded Vaccine Date Status Refusal Reason [id number] 12y+ bivalent booster vax 08/23/22 Recorded SARS-CoV-2 [...] Refills, Maintenance, 07/16/22 12:59:00 EDT, Tablet, [facility]/pharmacy #[id number], Partial fill upon patient [...] fractures of ribs Confirmed 01/06/11 Active Old [place] (myocardial infarction) X 3 Confirmed Active PVD (peripheral vascular disease) Confirmed Active Underweight Confirmed Active 1Cardiac stents 1991, 1995 Social History Social History Type Response Tobacco Use: 4 or less cigar ettes(less than 1/4 pack)/day in last 30 days. Sex Patient Care team information Care Team Personnel Name: Radha Hsieh RN Position: [facility] RN Member Role: Primary Care Nurse Name: Glo Camarena RN Position: [facility] RN Member Role: Primary Care Nurse Name: Fatimah Bennett RN Position: [facility] RN Member Role: Primary Care Nurse Name: Mariely Hardy RN Position: [facility] RN Member Role: Primary Care Nurse Name: Marleen Uriarte RN Position: [facility] RN Member Role: Primary Care Nurse Name: Sydney Zelaya Position: [facility] PCO OFFICE STAFF Member Role: Lifetime Consulting Physician Name: Judd Barahona RN Position: [facility] RN Member Role: Primary Care Nurse [...] Care Nurse Name: Zoë Thompson RN Position: [facility] RN Member Role: Primary Care Nurse Name: Araceli Simon RN Position: [facility] RN Member Role: Primary Care Nurse Name: Jorge Garcia III, MD Position: [facility] Ambulatory (view) Member Role: PCP Address: Address: [address] [place] [address] Name: Misty Nguyen RN [facility] Care Nurse Name: Darlyn Alvarez RN Position: [facility] RN Member Role: Primary Care Nurse Name: Maribell Mejias RN Position: [facility] RN Member Role: Primary Care Nurse Name: Rachna Renteria RN Position: [facility] RN Member Role: Primary Care Nurse Name: Zohreh Pink RN Position: [facility] RN Member Role: Primary Care Nurse Name: Agustina RNSophie Position: [facility] RN Member Role: Primary Care Nurse Name: Grisel Mcgowan RN Position: [facility] RN Member Role: Primary Care Nurse Name: Nasra Smith RN Position: [facility] RN Member Role: Primary Care Nurse Name: Cindy Grullon RN Position: [facility] RN Supv Member Role: Primary Care Nurse Name: Silas Knox RN Position: [facility] ED RN W/OE and Tasks Member Role: Primary Care Nurse Name: Elham Melgar RN Position: [facility] RN Member Role: Primary Care Nurse Name: Elham Lee RN Position: [facility] RN Member Role: Primary Care Nurse [...] Name: Rosa Elena De León RN Position: [facility] Program Director Substance Abuse Member Role: Primary Care Nurse Name: Tulio Pina RN Position: [facility] RN Member Role: Primary Care Nurse Name: Maximiliano Claros RN Position: [facility] RN Member Role: Primary Care Nurse Name: Narda Barnes RN Position: [facility] RN Member Role: Primary Care Nurse Name: Zëo Cisse RN Position: [facility] RN Member Role: Primary Care Nurse Name: Pat Bowers RN Position: [facility] RN Member Role: Primary Care Nurse Name: [...] RN Member Role: Primary Care Nurse Name: Radah Flores RN Position: [facility] RN Member Role: Primary Care Nurse Name: Rose Kyle RN Position: [facility] Program Director Substance Abuse Member Role: Primary Care Nurse Name: Aimee Salamanca Position: S RN Member Role: Primary Care Nurse Name: Jacobo Caceres Position: S RN Member Role: Primary Care Nurse Care Team Related Persons Name: STEVENSON HAMM Address: home [address] [place] [address] Name: MELINA VARMA Address: [place] [address] Name: GARRY VARMA Address: home [address] [place] [id number] Name: BRIEN LANCASTER Address: home [address] [place] [address]
--- OUTSIDE RECORDS SUMMARY | 2023-08-15 20:25 | XMS_ITS | Continuity of Care Document ---
Author Name Unknown Organization [facility] Address [address] [place] [address]- Care Team Providers Care Section Chief Name Role Phone Jose LEE MD, Jorge Tsang Primary Care Physician Encounter [facility] Date(s): 01/27/22 - 03/12/22 [facility] [address] [place] [address]- Attending Physician: Darion AMAYA, Azra Barry Admitting Physician: Darion AMAYA, Azra Barry Referring Physician: Jorge Garcia III, MD Allergies, [...] 0 Refills, Maintenance, 03/12/22 12:11:00 EDT, Tablet, [facility]/pharmacy #[id number], Partial fill upon patient request if theprescription is for a schedule II opioid drug., 182... Start Date: 03/12/22 Stop Date: 03/26/22 Status: Ordered albuterol 0.083% inhalation solution 3 mL = 2.5 mg, Neb, Every 4 hours, PRN Wheezing/Shortness of Breath, j44.9, # 540 mL, 6 Refills, Maintenance, 07/24/20 16:44:00 EDT, [facility]/pharmacy #[id number], 182, cm, 05/26/20 16:01:00 EDT, Height, 67, kg, 07/05/20 13:57:00 EDT, Dry Weight Start Date: 07/24/20 Status: Ordered albuterol CFC free 90 mcg/inh inhalation aerosol 2, puffs, Inhalation, Every 6 hours, PRN, j44.9, # 1 each, Refills 6, Tot. Refills 6, Maintenance, 07/24/20 16:44:00 EDT, Aerosol, Route to Pharmacy Electronically, [id number], [facility]/pharmacy #[id number], 182, cm, 05/26/20 16:01:00 E... Start Date: 07/24/20 Status: Ordered aspirin 81 mg oral tablet 1 tablet = 81 mg, By Mouth, Daily, # 30 tablet, 0 Refills, Maintenance, 05/23/19 1:08:58 EDT, Tablet Start Date: 05/23/19 Status: Ordered atorvastatin 80 mg oral tablet By Mouth, Daily at supper, 0 Refills, Maintenance, 07/01/14 14:30:54, Tablet Start Date: 07/01/14 Status: Ordered diclofenac 1% topical gel 1 application, Topically, 4 times a day, # 100 Gm, 0 Refills, Maintenance, 03/12/22 12:09:00 EDT, Gel, [facility]/pharmacy #[id number], Partial fill upon patient request if the prescription is for a schedule II opioid drug., 182, cm, 03/12/22 4:49:00 EDT, Height,... Start Date: 03/12/22 Status: Ordered duloxetine 60 mg oral enteric [...] opioid drug. Start Date: 10/07/21 Status: Ordered HYDROmorphone 2 mg oral tablet 1 tablet = 2 mg, By Mouth, Every 6 hours, PRN for pain, for 2 days, # 8 tablet, 0 Refills, Acute 03/14/22 12:10:00 EDT, 03/12/22 12:10:00 EDT, Tablet, [facility]/pharmacy #[id number], Partial fill upon patient request if the prescription is for a schedule II opioi... Start Date: 03/12/22 Stop Date: 03/14/22 Status: Ordered Incruse Ellipta 62.5 mcg/inh inhalation powder 1 each, Inhalation, Every 24 hours, doses should be taken at least 24 hours apart, j44.9, # 1 each,6 Refills, Maintenance, 08/13/20 16:33:00 EDT, Powder, [facility]/pharmacy #[id number], 182, cm, 05/26/20 16:01:00 EDT, Height, 67, kg, 07/05/20 13:57:00 EDT, Dry W... Start Date: 08/13/20 Status: Ordered isosorbide mononitrate 30 mg oral tablet, extended release = 30 mg, By Mouth, Daily in AM, 0 Refills, Maintenance, 07/01/14 14:32:15 EDT, ER Tablet Start Date: 07/01/14 Status: Ordered lidocaine 4% topical film 2 patch, Topically, Daily, for 14 days, # 14 each, 0 Refills, Acute 03/26/22 12:09:00 EDT, 03/12/2212:09:00 EDT, Film, [facility]/pharmacy #[id number], Partial fill upon patient request if the prescription is for a schedule II opioid drug., 2 patch Topically Amalia... Start Date: 03/12/22 Stop Date: 03/26/22 Status: Ordered lisinopril 2.5 mg oral tablet [...] 0 Refills, Maintenance, 11/01/21 10:44:00 EST, Gum, [facility]/pharmacy #[id number], Partial [...] 0 Refills, Maintenance, 02/15/22 10:30:00 EDT, Tablet, [facility]/pharmacy #[id number], Partial fill upon patient request if the prescription is for a schedule II opioid drug., 182, cm, 01/27/22 7:59:00 EST, Height, 61, kg, 11/08... Start Date: 02/15/22 Stop Date: 03/17/22 Status: Ordered Symbicort 160mcg/4.5mcg Inhaler 2, puffs, Inhalation, 2 times a day, # 10.2 Gm, Refills 0, Maintenance, 03/08/19 9:01:22 EDT, Aerosol Start Date: 03/08/19 Status: Ordered Toprol XL 25 mg oral tablet, extended release 25, mg, 1, tablet, By Mouth, Daily, 30, tablet, 6, 6, 03/31/07 11:15:26, Print MARTIN Number, ADS [facility], [address] [place] [address], [phone], Constant Indicator Start Date: 03/31/07 Stop Date: [...] Multiple fractures of ribs(Confirmed) 01/06/11 Active Old [place] (myocardial infarctio n) X 3(Confirmed) Active PVD (peripheral vascular disease)(Confirmed) Active Underweight(Confirmed) Active 1Cardiac stents 1991, 1995 Social History Social History Type Response Tobacco Use: 4 or less cigar ettes(less than 1/4 pack)/day in last 30 days. Sex
--- OUTSIDE RECORDS SUMMARY | 2023-08-15 20:25 | XMS_ITS | Continuity of Care Document ---
Author Name Unknown Organization [facility] ter Address [address] [place] [address]- Care Team Providers Care Perinatal Educator Name Role Phone Jose LEE MD, Jorge Tsang Primary Care Physician [phone] Encounter [facility] [place] Date(s): 03/09/22 - 03/12/[address] [address] Discharge Disposition: A-D/C Home Attending Physician: Rowan Francois MD Admitting Physician: Ree Bauer MD Referring [...] 0 Refills, Maintenance, 03/12/22 12:11:00 EDT, Tablet, [facility]/pharmacy #[id number], Partial fill upon patient request if theprescription is for a schedule II opioid drug., 182... Start Date: 03/12/22 Stop Date: 03/26/22 Status: Ordered albuterol 0.083% inhalation solution 3 mL = 2.5 mg, Neb, Every 4 hours, PRN Wheezing/Shortness of Breath, j44.9, # 540 mL, 6 Refills, Maintenance, 07/24/20 16:44:00 EDT, [facility]/pharmacy #[id number], 182, cm, 05/26/20 16:01:00 EDT, Height, 67, kg, 07/05/20 13:57:00 EDT, Dry Weight Start Date: 07/24/20 Status: Ordered albuterol CFC free 90 mcg/inh inhalation aerosol 2, puffs, Inhalation, Every 6 hours, PRN, j44.9, # 1 each, Refills 6, Tot. Refills 6, Maintenance, 07/24/20 16:44:00 EDT, Aerosol, Route to Pharmacy Electronically, [id number], [facility]/pharmacy #[id number], 182, cm, 05/26/20 16:01:00 E... Start [...] 0 Refills, Maintenance, 03/12/22 12:09:00 EDT, Gel, [facility]/pharmacy #[id number], Partial fill upon patient request if [...] drug. Start Date: 10/07/21 Status: Ordered gabapentin 400 mg oral capsule 400 mg, Capsule, By Mouth, 03/12/22 9:00:00 EDT Start Date: 03/12/22 Stop Date: 03/12/22 Status: Completed HYDROmorphone 2 mg oral tablet 1 tablet = 2 mg, By Mouth, Every 6 hours, PRN for pain, for 2 days, # 8 tablet, 0 Refills, Acute 03/14/22 12:10:00 EDT, 03/12/22 12:10:00 EDT, Tablet, [facility]/pharmacy #[id number], Partial fill upon patient request if the prescription is for a schedule II opioi... Start Date: 03/12/22 Stop Date: 03/14/22 Status: Ordered HYDROmorphone Inj 0.5 mg, Injection, IV Push Slowly, Once, KIKI, 03/12/22 9:35:00 EDT, Stop date 03/12/22 9:35:00 EDT Start Date: 03/12/22 Stop Date: 03/12/22 Status: Completed Incruse Ellipta 62.5 mcg/inh inhalation powder 1 each, Inhalation, Every 24 hours, doses should be taken at least 24 hours apart, j44.9, # 1 each,6 Refills, Maintenance, 08/13/20 16:33:00 EDT, Powder, [facility]/pharmacy #[id number], 182, cm, 05/26/20 16:01:00 EDT, Height, [...] Acute 03/26/22 12:09:00 EDT, 03/12/2212:09:00 EDT, Film, [facility]/pharmacy #[id number], Partial fill upon patient request if [...] 0 Refills, Maintenance, 11/01/21 10:44:00 EST, Gum, [facility]/pharmacy #[id number], Partial fill upon patient request if [...] 0 Refills, Maintenance, 02/15/22 10:30:00 EDT, Tablet, [facility]/pharmacy #[id number], Partial fill upon patient request if [...] 6, 03/31/07 11:15:26, Print MARTIN Number, ADS [facility], [address] [place] [address], [phone], Constant Indicator Start Date: 03/31/07 Stop Date: 10/27/07 Status: Ordered Toprol XL 25 mg oral tablet, extended release 25 mg, XL Tablet, By Mouth, 03/12/22 9:00:00 EDT Start Date: 03/12/22 Stop Date: 03/12/22 Status: Completed Problem List Condition Effective Dates [...] Underweight(Confirmed) Active 1Cardiac stents 1991, 1995 Results Orders for Microbiology Reports Name Date Blood Culture 03/09/22 Blood Culture #2 03/09/22 Microbiology Reports TEST:Blood Culture, Second Order STATUS:Unauthenticated BODY SITE: SOURCE:Blood COLLECTED DATE/TIME:03/09/22 5:42 PM Blood Culture, Second Order SPECIMEN DESCRIPTION : BLOOD NONE SPECIAL REQUESTS : NONE CULTURE : NO GROWTH 3 DAYS REPORT STATUS : PRELIMINARY REPORT TEST:Blood Culture STATUS:Unauthenticated BODY SITE: SOURCE:Blood COLLECTED DATE/TIME:03/09/22 2:46 PM Blood Culture SPECIMEN DESCRIPTION : BLOOD LAC SPECIAL REQUESTS : NONE CULTURE : NO GROWTH 3 DAYS REPORT STATUS : PRELIMINARY REPORT Radiology Reports * Exam Date Time Procedure Performing Provider Status 03/09/22 6:12 PM Chest Portable Claudia Florence; Auth (Verified) Notes: (Chest Portable) Reason For Exam: Shortness of Breath RESULT: Chest Portable Chest Portable Hx of Present Illness: Pain. COMPARISON: 02/26/2022 FINDINGS: LINES AND TUBES: None. LUNGS AND PLEURA: Emphysematous changes with chronic large lung volumes and interstitial prominence. No pleural effusion, consolidation or pneumothorax. HEART, MEDIASTINUM AND MAMADOU: Heart is normal in size. Normal upper mediastinal and hilar contour. BONES AND SOFT TISSUES: No acute abnormality. Of 3 right rib fractures, chronic. IMPRESSION: No acute abnormality. COPD/emphysema. WSN: [id number] Ordering Physician: Kim Barnard Dictated By: Zack Raza MD Dictated Date/Time: 03/09/22 6:18 pm Reviewed By: Zack Raza MD Signed By: Zack Raza MD Signed Date/Time: 03/09/22 6:18 pm Transcribed By: BERENICE Transcribed Date/Time: 03/09/22 6:16 pm Vital Signs Most recent to oldest [Reference Range]: 1 2 3 Height 182 cm (03/12/22 4:49 AM) 182 cm (03/11/22 5:29 PM) 182 cm (03/11/22 3:27 AM) Weight 56.7 kg (03/10/22 1:24 AM) Oxygen Saturation [94-100 %] 97 % (03/12/22 7:00 AM) 95 % (03/12/22 4:49 AM) 96 % (03/11/22 5:29 PM) Pulse Rate [55-90 bpm] 70 bpm (03/12/22 9:19 AM) 70 bpm (03/12/22 7:00 AM) 71 bpm (03/12/22 4:49 AM) Body Mass Index [18.5-24.99] 17.12 *L* (03/10/22 1:24 AM) Blood Pressure [90-138/55-84 mm Hg] 149/76mm Hg *H* (03/12/22 9:19 AM) 149/76mm Hg *H* (03/12/22 7:00 AM) 130/75mm Hg (03/12/22 4:49 AM) Respiratory Rate [16-30 br/min] 18 br/min (03/12/22 2:09 PM) 18 br/min (03/12/22 12:40 PM) 18 br/min (03/12/22 9:59 AM) Temperature [96.8-100.4 DegF] 98.0 DegF (03/12/22 7:00 AM) 97.8 DegF (03/12/22 4:49 AM) 98.5 DegF (03/11/22 5:29 PM) Liters per Minute 3 L/min (03/12/22 7:00 AM) 3 L/min (03/12/22 4:49 AM) 2 L/min (03/11/22 5:29 PM) Mode of Delivery (Oxygen) Nasal cannula (03/12/22 7:00 AM) Nasal cannula (03/12/22 4:49 AM) Nasal cannula (03/11/22 5:29 PM) Blood pressure sites Arm, left (03/12/22 7:00 AM) Arm, left (03/12/22 4:49 AM) Arm, left (03/11/22 5:29 PM) Temperature Route Oral (03/12/22 7:00 AM) Oral (03/12/22 4:49 AM) Oral (03/11/22 5:29 PM) Dry Weight 56.7 kg (03/10/22 1:24 AM) Social History Social History Type Response Tobacco Use: 4 or less cigar ettes(less than 1/4 pack)/day in last 30 days. Sex
--- OUTSIDE RECORDS SUMMARY | 2023-08-15 20:26 | XMS_ITS | Continuity of Care Document ---
Author Name Unknown Organization [facility] Address [address] [place] [address]- Care Team Providers Care [place] [employer] Group Leader Name Role Phone Jorge Garcia III, MD Primary Care Physician Encounter [facility] [place] Date(s): 06/29/21 - 07/29/21 [facility] [address] [place] [address]- Allergies, Adverse Reactions, Alerts Substance Reaction Severity [...] mL, 6 Refills, Maintenance, 07/24/20 16:44:00 EDT, [facility]/pharmacy #[id number], 182, cm, 05/26/20 16:01:00 EDT, Height, 67, kg, 07/05/20 13:57:00 EDT, Dry Weight Start Date: 07/24/20 Status: Ordered albuterol CFC free 90 mcg/inh inhalation aerosol 2, puffs, Inhalation, Every 6 hours, PRN, j44.9, # 1 each, Refills 6, Tot. Refills 6, Maintenance, 07/24/20 16:44:00 EDT, Aerosol, Route to Pharmacy Electronically, [id number], [facility]/pharmacy #[id number], 182, cm, 05/26/20 16:01:00 E... Start [...] 0 Refills, Maintenance, 07/01/21 14:22:00 EDT, Tablet, [facility]/pharmacy #[id number], Partial fill upon patient request ifthe [...] each,6 Refills, Maintenance, 08/13/20 16:33:00 EDT, Powder, [facility]/pharmacy #[id number], 182, cm, 05/26/20 16:01:00 EDT, Height, [...] 6, 03/31/07 11:15:26, Print MARTIN Number, [facility], [address] [place] [address], [phone], Constant Indicator Start Date: 03/31/07 Stop Date: [...]
--- OUTSIDE RECORDS SUMMARY | 2023-08-15 20:26 | XMS_ITS | Continuity of Care Document ---
Author Name Unknown Organization [facility] ter Address [address] [place] [id number]- Care Team Providers Care Pharmacist Apprentice Name Role Phone Jose LEE MD, Jorge Tsang Primary Care Physician Encounter [facility] Date(s): 05/07/23 - 05/12/[address] [id number] Discharge Disposition: A-D/C Home Attending Physician: Gaby Hinson MD Admitting Physician: Shadia Pires MD Referring Physician: Not on Staff, Referring [...] virus vaccine, inactivated 1 10/14/06 Gi rox [id number] 12y+ bivalent booster vax 08/23/22 Recorded SARS-CoV-2 [...] opioid drug. Start Date: 07/02/22 Status: Ordered Hannibal Saline 0.65% nasal gel 1 sprays, Nares, Both, 4 times a day, # 22.5 Gm, 0 Refills, Maintenance, 05/12/23 15:41:00 EDT, [facility]/pharmacy #[id number], Partial fill upon patient request if [...] 06/05/23 9:43:00 EDT, 05/06/23 9:43:00 EDT, Capsule, [facility]/pharmacy #[id number], Partial fill upon patient request if [...] 5 Refills, Maintenance, 04/27/23 13:54:00 EDT, Tablet, [facility] 3, Partial fill upon patient request if the prescription is for a schedule II opioid drug., 183, cm, 04/27/23 7:05:00... Start Date: 04/27/23 Stop Date: 10/24/23 Status: Ordered gabapentin 300 mg oral capsule 600 mg, Capsule, By Mouth, 05/12/23 15:00:00 EDT Start Date: 05/12/23 Stop Date: 05/12/23 Status: Completed gabapentin 300 mg oral capsule 600 mg, 2, capsule, By Mouth, 3 times a day, Refills 0, Maintenance, 01/21/23 10:46:00 EST, Partialfill upon patient request if the prescription is for a schedule II opioid drug. Start Date: 01/21/23 Status: Ordered HYDROmorphone 4 mg oral tablet 1 tablet = 4 mg, By Mouth, Every 4 hours, PRN as needed for pain, # 45 tablet, 0 Refills, Acute 05/20/23 15:52:00 EDT, 05/12/23 15:51:00 EDT, Tablet, [facility]/pharmacy #[id number], Partial fill upon patient request if the prescription is for a schedule II opioid... Start Date: 05/12/23 Stop Date: 05/20/23 Status: Ordered HYDROmorphone 4 mg oral tablet 4 mg, Tablet, By Mouth, Every 4 hours, PRN for Pain , Severe, Routine, 05/07/23 9:54:00 EDT Start Date: 05/07/23 Stop Date: 05/13/23 Status: Discontinued hydrOXYzine hydrochloride 10 mg oral tablet 1 [...] release 25 mg, XL Tablet, By Mouth, 05/12/23 9:00:00 EDT Start Date: 05/12/23 Stop Date: 05/12/23 Status: Completed Metoprolol Succinate ER 25 mg [...] Daily, # 90 tablet, 0 Refills, Maintenance, 05/11/23 13:14:00 EDT, Tablet, Partial fill upon patient request if the prescription is for a schedule II opioid drug. Start Date: 05/11/23 Status: Ordered Robitussin DM Liquid 5 mL, [...] Maintenance, 05/06/23 9:44:00 EDT, Tablet, [facility]/pharmacy #[id number], Partial fill upon patient request if the prescription is for a schedule II opioid drug., 182, cm, 05/06/23 7:54:00 EDT, Height,... Start Date: 05/06/23 Status: Ordered sodium chloride 0.65% nasal spray 1 sprays, Nares, Both, 5 times a day, dryness, # 1 each, 0 Refills, Maintenance, 05/12/23 15:40:00 EDT, Nasal [place], [facility]acy #[id number], Partial fill upon patient request [...] Active Anxiety Confirmed Active Epistaxis Confirmed Active CAD - Coronary artery disease [...] fractures of ribs Confirmed 01/06/11 Active Old MT (myocardial infarction) X 3 Confirmed Active PVD (peripheral vascular disease) Confirmed Active Underweight Confirmed Active 1Cardiac stents 1991, 1995 Results Orders for Microbiology Reports Name Date Blood Culture 05/07/23 Blood Culture #2 05/07/23 Microbiology Reports TEST:Blood Culture, Second Order STATUS:Auth (Verified) BODY SITE: SOURCE:Blood COLLECTED DATE/TIME:05/07/23 10:30 AM Blood Culture, Second Order SPECIMEN DESCRIPTION : BLOOD SPECIAL REQUESTS : NONE CULTURE : NO GROWTH 5 DAYS. REPORT STATUS : FINAL 05/12/2023 TEST:Blood Culture STATUS:Auth (Verified) BODY SITE: SOURCE:Blood COLLECTED DATE/TIME:05/07/23 9:31 AM Blood Culture SPECIMEN DESCRIPTION : BLOOD SPECIAL REQUESTS : NONE CULTURE : NO GROWTH 5 DAYS. REPORT STATUS : FINAL 05/12/2023 Radiology Reports * Exam Date Time Procedure Performing Provider Status 05/07/23 1:[address] Chest W/ Contrast Veronica Ashby; Auth (Verified) Notes: (CT Chest W/ Contrast) Reason For Exam: Pulmonary Lesion;Other: RESULT: CT Chest W/ Contrast CT Chest W/ Contrast Reason: History of COPD. Increased shortness of breath. TECHNIQUE: Helical CT scan of the chest with IV contrast, formatted in 3 planes. 75 cc of [id number] was administered intravenously. Weight-based protocol was performed using automatic exposure control. CTDIvol Body: 5.00 mGy, DLP Body: 217 mGy*cm. COMPARISON: 05/02/2023 and multiple priors FINDINGS: Stable emphysema. Small amount of mucus/debris within the right mainstem bronchus and right lower lobe bronchi. Smallamount of mucus/debris within left lower lobe bronchi. Previously described groundglass in the left upper lobe is unchanged. Groundglass in the left lower lobe image 65 series 305 is unchanged. Old rib fractures and multiple thoracic and lumbar spine compression fractures are unchanged. IMPRESSION: No change from the previous exam. Small amount of mucus/debris in the right mainstem and right lower lobe bronchi. Small amount of mucus/debris within left lower lobe bronchi. Findings are similar to the previous examination and leave the patient at risk for aspiration Areas of groundglass in the left upper and lower lobes are unchanged. Refer to previous report withrespect to recommendations. I have personally reviewed the images and I agree with this report. WSN: [id number] Ordering Physician: Judi Diez Dictated By: Glen Phillips MD Dictated Date/Time: 05/07/23 3:11 pm Reviewed By: Judd Hitchcock MD Signed By: Judd Hitchcock MD Signed Date/Time: 05/07/23 3:16 pm Transcribed By: BERENICE Transcribed Date/Time: 05/07/23 2:57 pm * Exam Date Time Procedure Performing Provider Status 05/07/23 9:44 AM Chest Portable Ha , Magalie; Auth (V erified) Notes: (Chest Portable) Reason For Exam: Shortness of Breath RESULT: Chest Portable AP semiupright portable chest dated May 07, 2023 at 0939 hours. Comparison films are from May 02, 2023. HISTORY: Shortness of breath. FINDINGS: Today's study is limited as the lateral costophrenic sulci are not completely included. The cardiac silhouette is within normal limits for size. Hilar and mediastinal structures are unremarkable. No airspace infiltrate or pleural effusion is identified. Old healed right-sided rib fractures and clavicle fracture are demonstrated. Degenerative changes are noted in the spine and shoulders right greater than left. IMPRESSION: No evidence of acute pulmonary disease. Examination 55[address]. Thank you for allowing me to participate in the care of this patient. WSN: [id number] Ordering Physician: Judi Diez Dictated By: Jeff Rosa MD Dictated Date/Time: 05/07/23 9:46 am Reviewed By: Jeff Rosa MD Signed By: Jeff Rosa MD Signed Date/Time: 05/07/23 9:46 am Transcribed By: BERENICE Transcribed Date/Time: 05/07/23 9:45 am Vital Signs Most recent to oldest [Reference Range]: 1 2 3 Height 183 cm (05/10/23 4:07 PM) 183 cm (05/07/23 9:00 PM) 183 cm (05/07/23 9:00 PM) Weight 54.7 kg (05/10/23 4:07 PM) 54.7 kg (05/07/23 9:00 PM) 62 kg (05/07/23 1:16 PM) Oxygen Saturation [94-100 %] 92 % *L* (05/12/23 11:00 AM) 96 % (05/12/23 7:00 AM) 100 % (05/12/23 4:00 AM) Pulse Rate [55-90 bpm] 75 bpm (05/12/23 11:00 AM) 71 bpm (05/12/23 7:54 AM) 66 bpm (05/12/23 4:00 AM) Body Mass Index [18.5-24.99 kg/m2] 16.33 kg/m2 *L* (05/10/23 4:07 PM) 16.33 kg/m2 *L* (05/07/23 9:00 PM) 18.51 kg/m2 (05/07/23 1:16 PM) Blood Pressure [90-138/55-84 mm Hg] 102/52mm Hg (05/12/23 11:00 AM) 120/49mm Hg (05/12/23 7:54 AM) 108/59mm Hg (05/12/23 4:00 AM) Respiratory Rate [16-30 br/min] 18 br/min (05/12/23 4:58 PM) 18 br/min (05/12/23 2:11 PM) 18 br/min (05/12/23 1:09 PM) Temperature [96.8-100.4 DegF] 97.8 DegF (05/12/23 11:00 AM) 97.3 DegF (05/12/23 7:00 AM) 98.0 DegF (05/12/23 4:00 AM) Liters per Minute 2 L/min (05/12/23 11:00 AM) 4 L/min (05/12/23 7:00 AM) 4 L/min (05/12/23 4:00 AM) Mode of Delivery (Oxygen) Nasal cannula (05/12/23 11:00 AM) Nasal cannula (05/12/23 7:00 AM) Other: Sheldon (05/12/23 4:00 AM) Blood pressure sites Arm, right (05/12/23 11:00 AM) Arm, left (05/11/23 4:00 AM) Arm, left (05/10/23 11:00 PM) Temperature Route Oral (05/12/23 11:00 AM) Axillary (05/12/23 7:00 AM) Axillary (05/12/23 4:00 AM) Dry Weight 54.7 kg (05/07/23 9:00 PM) 62 kg (05/07/23 1:16 PM) 62 kg (05/07/23 9:28 AM) Weight Obtained Via Bed scale (05/07/23 9:00 PM) Social History Social History Type Response Tobacco Use: 4 or less cigar ettes(less than 1/4 pack)/day in last 30 days. Interested in cessation: Yes. Other: Reports smoked at least 30 years, up to 1-2 PPD at one point.. Type: Cigarettes. Sex History and physical note * Nabil Amaral MD: MODIFY, MODIFY, PERFORM Event Display: History and Physical Hospital Authored Date: Patient: ??CARLOS MENON ? Age:??67 Years?Sex:??Male?:??1955?? Chief Complaint/Reason for Consultation Pt from home with nose bleed since last night, while lying down. Pt spit up approx 200cc of blood. Also reports SOB. Requiring 4L O2. History of Present Illness 67 yo M with PMHx of R septic arthritis on Doxycycline and has wound vac in place, COPD on home o2 2-3L with frequent presentation with exacerbation, chronic abd and back pain with multiple w/u with CT scanning w/o acute organic abnormality and pt s requests of IV Dilaudid, tobacco use disorder, CAD s/p multiple stents, HTN, HLD, hx of DVT on Eliquis,??anxiety/depression, prior alcohol use disorder, chronic foot ulcers, multiple fractures due to fall discharged only yesterday for COPD exacerbation and management of his chronic hypercarbic respiratory failure. It is likely that he is taking some of his medications in excess. His quite sedated, likely multifactorial. Today he is p/w c/o Sob and epistaxis which he reported self resolved [employer] IN[employer]. His work up in ED was basically unremarkable except some secretions found on chest imaging and noted that he is in need of increased o2 requirement. When I met him he was on 5L NC and sats were 94%. I put down his O2 to 3L NC and he was at 92% to target 88-92%. ?? Review of Systems Comprehensive review negative unless mentioned as above. Objective Measurements?? Height: 183 cm (05/07/23) Weight: 62 kg (05/07/23) Dry Weight: 62 kg (05/07/23) Body Mass Index: 18.51 kg/m2 (05/07/23) ? Vital Signs?? Temperature: 98.5 DegF (05/07/23 09:28:00) Temperature Route: Oral (05/07/23 09:28:00) Pulse Rate:??91 bpm??High (05/07/23 16:22:00) Respiratory Rate: 18 br/min (05/07/23 16:22:00) Systolic Blood Pressure: 127 mm Hg (05/07/23 16:22:00) Diastolic Blood Pressure: 78 mm Hg (05/07/23 16:22:00) Blood pressure sites: Arm, left (05/07/23 10:38:00) Mean Arterial Pressure: 100 mm Hg (05/07/23 13:16:00) Pulse Pressure: 49 mm Hg (05/07/23 16:22:00) Oxygen Saturation:??92 %??Low (05/07/23 16:22:00) Liters per Minute: 3 L/min (05/07/23 16:22:00) Mode of Delivery (Oxygen): Nasal cannula (05/07/23 16:22:00) Early Warning Score: 2 (05/07/23 16:23:13) ? Pain Scores 1 - 10 Pain Scale Score: 10 (09:28) ? Intake/Output? No Data Available ? Physical Exam Constitutional: Older than stated age cachectic male in NAD Mental Status: Initially was lethargic. Second visit, he is aocx3 Head: Normocephalic. Eyes: Pupils are equal, round and reactive to light. Extraocular muscles intact. Ear, Nose and Throat: Oropharynx clear, mucous membranes moist. Ears and nose without masses, lesions or deformities. Trachea midline. Neck: Supple, Full range of motion. Respiratory: Fair effort with scattered few wheezes, Rhoncorus breath sounds. Cardiovascular: S1 S2 regular. No murmurs, rubs [...] No gross deformities. Normal range of motion. Psychiatric: Depressed looking ?? IMPRESSION: CT Chest w IV cotrast No change from the previous exam. Small amount of mucus/debris in the right mainstem and right lower lobe bronchi. Small amount of mucus/debris within left lower lobe bronchi. Findings are similar to the previous examination and leave the patient at risk for aspiration Areas of groundglass in the left upper and lower lobes are unchanged. Refer to previous report withrespect to recommendations. ?? Assessment/Plan Diagnoses Acute hypoxemic respiratory failure ??(J96.01) #COPD exacerbation: #Chronic hypercarbic respiratory failure: #Hx of COPD on chronic home O2 2-3L: #Several hospitalizations in the past??due to COPD exacerbation Per record??Bicarb ranges from 34-38.?Again, initially on admission he did have a chest x-ray which did not show any acute cardiopulmonary process. CTA showed looked similar except secretions. per admitting ED team:??He is likely experiencing a COPD exacerbation in the setting of initial hypoxia per EMS, increased sputum production/cough, shortness of breath. ?? Patient is noncompliant and actually does still smoke cigarettes??pulmonary was consulted previously Plan Admit to medicine He should be on nocturnal BiPAP??11/01.? He will also need outpatient??sleep study and??further pulmonary work-up.?? He did complete a 5-day course of prednisone??only a day ago, will not use any further He was discharged yesterday??with??1 more day of azithromycin to complete a 5- day course.??Receivedlast dose today. Will stop there. Bronchodilators atc and prn Replace Symbicort w Breo?? Hypertonic saline to remove secretions w albuterol Needs pulmonary toileting Continue??Roflumilast to help decrease COPD exacerbations We do not Incruse Ellipta in our formulary If too sedated, consider Narcan and BIPAP. Given 4 mg po Dilaudid in ED ?? #Acute on chronic pain #Hx of septic arthritis of R shoulder #Hx multiple orthopedic surgeries (pt reports fell down 30 flights of stairs at one point and brokehis back) Per??care plan in place from??many years ago??- to avoid IV dilaudid for non- acute issues. While he was here in the hospital [...] not recommend any change??to his current regimen.?? Plan Continue??gabapentin, PO dilaudid with engagement of pain management team if needed. ?? Continue Doxycycline 100 mg iv bid Cont Dicyclomine if not sedated Orthopedics??had??changed his wound VAC, upon discharge his VNA services will be resumed??so that his wound VAC can be changed every Tuesday, Tuesday, Tuesday.?? Infectious disease was also consulted and he was restarted on daptomycin.?? He does follow with [facility] infectious disease.?? On discharge his daptomycin has been discontinued as there was question of??prior to hospitalization his daptomycin was finished on 04/28??and he had already started on the doxycycline.?? Cont to follow-up with [facility] infectious disease for??further care.?? Home Dilaudid. ?? #Hyperkalemia Plan Potassium slightly high at 5.3. Check K tonight Hold EARL Renal diet to limit K ?? #CAD #Hypertension #Hyperlipidemia Plan Continue home atorvastatin, metoprolol, aspirin, isosorbide dinitrate PRN midodrine for MAP<65 ?? #History of DVT #Reported Epistaxis Plan Continue home apixaban Monitor for any bleed ?? #Anxiety/depression Plan Home duloxetine?? Hydroxyzine as needed PRN melatonin ?? #IBS/GERD Plan Continue home dicyclomine, loperamide as needed and Protonix Thiamine ?? Quality Measures Dvt, high risk, Eliquis Renal diet Full code per record ?? Histories Allergies Allergies ?(Active and Proposed Allergies Only) naproxen? (Severity: Unknown severity, Onset: Unknown) ?Reactions: lesions on lips Toradol? (Severity: Persistent Mild, Onset: Unknown) ?Reactions: hives, Cephalexin allergy, Naproxen, Metaxalone, Morphine allergy Keflex? (Severity: Unknown severity, Onset: Unknown) ?Reactions: rash ?Comments: tolerates pip/tazo 11/17 Skelaxin? (Severity: Unknown severity, Onset: Unknown) ?Reactions: H/O: migraine ?? Past Medical History/Problem List Active Problems??(16) Anemia Anxiety CAD - Coronary artery disease Chronic low back pain COPD (chronic obstructive pulmonary disease) COPD exacerbation Deep vein thrombosis (DVT) of left lower extremity GERD (gastroesophageal reflux disease) HTN (hypertension) Hyperlipidemia Hyponatremia Metabolic alkalosis Multiple fractures of ribs Old MT (myocardial infarction) X 3 PVD (peripheral vascular disease) Smoking greater than 40 pack years ?? Past Surgical History Arthrotomy, glenohumeral joint, including [...] artery endarterectomy: 08/13/15 multiple lumbar spine surgeries ?? Social History Alcohol Details:??Use: Never. Employment/School Details:??Status: [...] Cigarettes. Electronic Cigarette/Vaping Details:??Electronic Cigarette Use: Never. ?? Family History Mother: COPD - Chronic obstructive pulmonary disease; Cardiac valve prolapse Father: Stroke Sister (Brinda): Asthma Other (Another sister-): Lupus ?? Travel History Travel Outside [facility] [place]: No Medications Home Medications Acetaminophen (acetaminophen 325 mg [...] Ellipta 62.5 mcg/inh inhalation powder)?1?puff(s)?Inhalation?Every 24 hours Reviewed from pts dc summary ?? Inpatient Medications Medications (31) Active SCHEDULED: (17) Albuterol 0.083% Inhalation Solution (Albuterol 0.083% inhalation marilin) ??2.5 mg 3 mL, BAND Nebulizer, 4 times a day Apixaban 5 mg Tablet (apixaban 5 mg oral tablet) ??5 mg, By Mouth, 2 times a day Aspirin 81 mg EC Tablet (aspirin 81 mg oral delayed release tablet) ??81 mg, By Mouth, Daily Atorvastatin 80 mg Tablet (atorvastatin 80 mg oral tablet) ??80 mg, By Mouth, Daily at bedtime Azithromycin 500 mg IVPB (Azithromycin IVPB) ??500 mg, IVPB, Every 24 hours Breo Ellipta 200 mcg / 25 mcg Inhaler (Breo Ellipta 200 mcg-25 mcg Inhaler) ??1 puffs, Inhalation, 2 times a day Dicyclomine 10 mg Capsule (dicyclomine 10 mg oral capsule) ??10 mg 1 capsule, By Mouth, 4 times a day Doxycycline 100 mg Inj (Doxycycline IVPB) ??100 mg, IVPB, Every 12 hours Duloxetine 60 mg Capsule (DULoxetine Capsule) ??60 mg, By Mouth, 2 times a day Gabapentin 300 mg Capsule (gabapentin 300 mg oral capsule) ??600 mg, By Mouth, 3 times a day Isosorbide Dinitrate 5 mg Tablet (isosorbide dinitrate 20 mg oral tablet) ??30 mg, By Mouth, 2 times a day Metoprolol 25 mg XL Tablet (metoprolol 25 mg oral tablet, extended release) ??25 mg, By Mouth, Daily NaCl 0.9% Flush 3ml (NaCL 0.9% Flush) ??3 mL, IV Push, Every 8 hours Pantoprazole 40 mg EC Tablet (pantoprazole 40 mg oral delayed release tablet) ??40 mg, By Mouth, Daily Roflumilast 500 mcg Tablet (roflumilast 500 mcg oral tablet) ??500 mcg, By Mouth, Daily Sodium Chloride 7% Inhalation Marilin (Hypertonic Saline 7% Inhalation Marilin) ??4 mL, Neb, 3 times a day Thiamine 100 mg Tablet (thiamine 100 mg oral tablet) ??100 mg, By Mouth, Daily CONTINUOUS: (0) PRN: (14) Acetaminophen 325 mg Tablet (Acetaminophen Tablet) ??650 mg, By Mouth, Every 4 hours Albuterol 0.083% Inhalation Solution (Albuterol 0.083% inhalation marilin) ??2.5 mg 3 mL, BAND Nebulizer, Every 4 hours Dextromethorphan-Guaifenesin 20 mg-200 mg/10 mL Liqu UD (Robitussin DM Liquid) ??10 mL, By Mouth, Every 4 hours Dextromethorphan-Guaifenesin 20 mg-200 mg/10 mL Liqu UD (Robitussin DM Liquid) ??5 mL, By Mouth, Every 4 hours HYDROmorphone 4 mg Tablet (HYDROmorphone 4 mg oral tablet) ??4 mg, By Mouth, Every 4 hours HydrOXYzine HCL 10mg Tablet (HydrOXYzine HCL Tablet) ??10 mg, By Mouth, 3 times a day Loperamide 2 mg Capsule (loperamide 2 mg oral capsule) ??2 mg, By Mouth, Every 3 hours Melatonin 3 mg Tablet (Melatonin Tablet) ??3 mg, By Mouth, Daily at bedtime Melatonin 3 mg Tablet (melatonin 3 mg oral tablet) ??9 mg, By Mouth, Daily at bedtime Midodrine 5 mg Tablet (midodrine 5 mg oral tablet) ??10 mg, By Mouth, 3 times a day NaCl 0.9% Flush 3ml (NaCL 0.9% Flush) ??3 mL, IV Push, Every 8 hours Polyethylene Glycol 17 Gm Powder (MiraLax Powder) ??17 Gm 1 pack/packet, By Mouth, Daily Senna 8.6 mg / Docusate 50 mg tablet (Docusate/Senna Tablet) ??1 tablet, By Mouth, 2 times a day Simethicone 80 mg Chewable Tablet (Simethicone Tablet) ??80 mg, Chew, 3 times a day ?? Vaccinations and Immunoprophylaxis influenza virus vaccine, inactivated: 0 Unknown (02/03/23 07:00:00) influenza virus vaccine, inactivated: 0.5 Unknown (10/27/20 07:00:00) influenza virus vaccine, inactivated: 0.5 Unknown (10/27/20 07:00:00) influenza virus vaccine, inactivated: 0.5 Unknown (02/03/20 09:00:00) influenza virus vaccine, inactivated: 0.5 Unknown (02/03/20 09:00:00) influenza virus vaccine, inactivated: 0.5 Unknown (07/26/18 08:00:00) influenza virus vaccine, inactivated: 0.5 Unknown (07/26/18 08:00:00) influenza virus vaccine, inactivated: 0.5 Unknown (08/29/17 08:00:00) influenza virus vaccine, inactivated: 0.5 Unknown (08/29/17 08:00:00) influenza virus vaccine, inactivated: 0.5 Unknown (08/17/16 08:00:00) influenza virus vaccine, inactivated: 0.5 Unknown (08/17/16 08:00:00) influenza virus vaccine, inactivated: 0.5 Unknown (09/02/15 08:00:00) influenza virus vaccine, inactivated: 0.5 Unknown (09/02/15 08:00:00) influenza virus vaccine, inactivated: 0.5 Unknown (08/07/14 08:00:00) influenza virus vaccine, inactivated: 0.5 Unknown (08/07/14 08:00:00) influenza virus vaccine, inactivated: 0.5 mL (10/14/06 11:41:00) pneumococcal 20-valent conjugate vaccine: 0 Unknown (02/03/23 07:00:00) pneumococcal 23-valent vaccine: 0.5 Unknown (08/19/19 08:00:00) pneumococcal 23-valent vaccine: 0.5 Unknown (08/19/19 08:00:00) SARS-CoV-2 (COVID-19) mRNA-1273 vaccine: 0.25 Unknown (01/17/22 07:00:00) SARS-CoV-2 (COVID-19) mRNA-1273 vaccine: 0.25 Unknown (01/17/22 07:00:00) SARS-CoV-2 (COVID-19) mRNA-1273 vaccine: 0.5 Unknown (02/23/21 08:00:00) SARS-CoV-2 (COVID-19) mRNA-1273 vaccine: 0.5 Unknown (02/23/21 08:00:00) SARS-CoV-2 (COVID-19) mRNA-1273 vaccine: 0.5 Unknown (01/25/21 07:00:00) SARS-CoV-2 (COVID-19) mRNA-1273 vaccine: 0.5 Unknown (01/25/21 07:00:00) [id number] 12y+ bivalent booster vax: 0.3 Unknown (08/23/22 08:00:00) tetanus/diphtheria/pertussis, acel(Tdap): 0.5 mL (06/09/21 23:15:00) tetanus/diphtheria/pertussis, acel(Tdap): 0.5 Unknown (06/09/21 08:00:00) tetanus/diphtheria/pertussis, acel(Tdap): 0 Unknown (05/30/17 08:00:00) tetanus/diphtheria/pertussis, acel(Tdap): 0 Unknown (05/30/17 08:00:00) tetanus/diphtheria/pertussis, acel(Tdap): 0.5 mL (05/11/10 17:19:00) Zoster Vaccine Live: 0 Unknown (04/05/18 08:00:00) zoster vaccine, inactivated: 0.5 Unknown (09/11/18 08:00:00) zoster vaccine, inactivated: 0.5 Unknown (09/11/18 08:00:00) zoster vaccine, inactivated: 0.5 Unknown (04/05/18 08:00:00) Diphth-Tetanus Toxoids Adsorbed(oldterm): 0.5 mL (06/04/07 22:13:00) Results Recent Labs BLOOD COUNT & DIFF WBC 15.9 k/mm3 (High)?? 05/07/2023 09:31 RBC 3.88 m/mm3 (Low)?? 05/07/2023 09:31 Hgb 10.5 Gm/dL (Low)?? 05/07/2023 09:31 Hct 34.7 % (Low)?? 05/07/2023 09:31 MCV 89.4 femtoliters ()?? 05/07/2023 09:31 MCH 27.1 pg ()?? 05/07/2023 09:31 MCHC 30.3 g/dL (Low)?? 05/07/2023 09:31 Platelet Count 238 k/mm3 ()?? 05/07/2023 09:31 RDW-SD 60.4 femtoliters (High)?? 05/07/2023 09:31 MPV 9.4 femtoliters ()?? 05/07/2023 09:31 Nucleated RBC (Automated) 0.0 #/100 WBC'S ()?? 05/07/2023 09:31 Abs. NRBC 0.0 k/mm3 ()?? 05/07/2023 09:31 Abs. Neut 13.6 k/mm3 (High)?? 05/07/2023 09:31 Abs. Lymph 1.0 k/mm3 ()?? 05/07/2023 09:31 Abs. Wright 0.9 k/mm3 ()?? 05/07/2023 09:31 Abs. Eo 0.2 k/mm3 ()?? 05/07/2023 09:31 Abs. Baso 0.1 k/mm3 ()?? 05/07/2023 09:31 Neut % 85.5 % (High)?? 05/07/2023 09:31 Lymph % 6.2 % (Low)?? 05/07/2023 09:31 Wright % 5.3 % ()?? 05/07/2023 09:31 Eos % 1.0 % ()?? 05/07/2023 09:31 Baso % 0.4 % ()?? 05/07/2023 09:31 Imm Gran 1.6 % ()?? 05/07/2023 09:31 Abs. Imm Gran 0.3 k/mm3 ()?? 05/07/2023 09:31 ?? CARDIAC Nt-Probnp 197 pg/mL (High)?? 05/07/2023 09:31 High Sensitivity Troponin (HSTnT) 32 ng/L (High)?? 05/07/2023 12:02 ?? CHEM GENERAL Sodium 141 mmol/L ()?? 05/07/2023 09:31 Potassium 5.3 mmol/L (High)?? 05/07/2023 09:31 Chloride 96 mmol/L (Low)?? 05/07/2023 09:31 Bicarbonate Level 33 mmol/L (High)?? 05/07/2023 09:31 Anion Gap 12 ()?? 05/07/2023 09:31 Glucose Level 100 mg/dL (High)?? 05/07/2023 09:31 Glucose, POC 140 mg/dL (High)?? 05/07/2023 11:10 BUN 28 mg/dL (High)?? 05/07/2023 09:31 Creatinine-Blood 0.6 mg/dL (Low)?? 05/07/2023 09:31 Estimated GFR Creatinine 109 ML/MIN/1.73 M2 ()?? 05/07/2023 09:31 Calcium 10.2 mg/dL ()?? 05/07/2023 09:31 Protein, Total 7.1 Gm/dL ()?? 05/07/2023 09:31 Albumin 4.4 Gm/dL ()?? 05/07/2023 09:31 AG Ratio 1.6 ()?? 05/07/2023 09:31 Alkaline Phosphatase 133 units/L (High)?? 05/07/2023 09:31 AST (SGOT) 25 units/L ()?? 05/07/2023 09:31 ALT (SGPT) 19 units/L ()?? 05/07/2023 09:31 Bilirubin, Total 0.3 mg/dL ()?? 05/07/2023 09:31 Lactate 1.2 mmol/L ()?? 05/07/2023 09:31 ?? COAG INR 1.0 ()?? 05/07/2023 09:31 Protime (PT) 10.9 seconds ()?? 05/07/2023 09:31 APTT 27.3 seconds ()?? 05/07/2023 09:31 ?? ENDOCRINE/TUMOR MARKER TSH 1.05 uIU/mL ()?? 05/07/2023 09:31 ?? URINE OTHER Est Creatinine Clearance 107.64 mL/min ()?? 05/07/2023 10:08 ?? VIROLOGY COVID-19 by RT-PCR NEGATIVE ()?? 05/07/2023 09:21 ? Abnormal Labs ?? BLOOD COUNT & DIFF ??Abs. Imm Gran ??0.3 k/mm3 () ??05/07/2023 09:31 ??Abs. NRBC ??0.0 k/mm3 () ??05/07/2023 09:31 ??Abs. Neut ??13.6 k/mm3 (High) ??05/07/2023 09:31 ??Hct ??34.7 % (Low) ??05/07/2023 09:31 ??Hgb ??10.5 Gm/dL (Low) ??05/07/2023 09:31 ??Imm Gran ??1.6 % () ??05/07/2023 09:31 ??Lymph % ??6.2 % (Low) ??05/07/2023 09:31 ??MCHC ??30.3 g/dL (Low) ??05/07/2023 09:31 ??Neut % ??85.5 % (High) ??05/07/2023 09:31 ??Nucleated RBC (Automated) ??0.0 #/100 WBC'S () ??05/07/2023 09:31 ??RBC ??3.88 m/mm3 (Low) ??05/07/2023 09:31 ??RDW-SD ??60.4 femtoliters (High) ??05/07/2023 09:31 ??WBC ??15.9 k/mm3 (High) ??05/07/2023 09:31 ? CARDIAC ??High Sensitivity Troponin (HSTnT) ??32 ng/L (High) ??05/07/2023 12:02 ??Nt-Probnp ??197 pg/mL (High) ??05/07/2023 09:31 ? CHEM GENERAL ??AG Ratio ??1.6 () ??05/07/2023 09:31 ??Alkaline Phosphatase ??133 units/L (High) ??05/07/2023 09:31 ??BUN ??28 mg/dL (High) ??05/07/2023 09:31 ??Bicarbonate Level ??33 mmol/L (High) ??05/07/2023 09:31 ??Chloride ??96 mmol/L (Low) ??05/07/2023 09:31 ??Creatinine-Blood ??0.6 mg/dL (Low) ??05/07/2023 09:31 ??Estimated GFR Creatinine ??109 ML/MIN/1.73 M2 () ??05/07/2023 09:31 ??Glucose Level ??100 mg/dL (High) ??05/07/2023 09:31 ??Glucose, POC ??140 mg/dL (High) ??05/07/2023 11:10 ??Potassium ??5.3 mmol/L (High) ??05/07/2023 09:31 ? VIROLOGY ??COVID-19 by RT-PCR ??NEGATIVE () ??05/07/2023 09:21 ? Note: Critical results are displayed in red. ? Microbiology ?? COVID-19 (Novel Coronavirus), Rapid PCR?? Completed?? Source: Nasal Body Site: Nose Collected Dt/Tm: 05/07/2023 09:30 Last Updated Dt/Tm: 05/07/2023 11:21 ? Cardiology Labs Nt-Probnp:??197 pg/mL??High (05/07/23 09:31:00) High Sensitivity Troponin (HSTnT):??32 ng/L??High (05/07/23 12:02:00) High Sensitivity Troponin (HSTnT):??40 ng/L??High (05/07/23 09:31:00) ?? Imaging(s) ?CT Chest W/ Contrast ?? 05/07/2023 13:41??by Judd Hitchcock MD ?Chest Portable ?? 05/07/2023 09:44??by Jeff Rosa MD ? Microbiology(s) ?COVID-19 by RT-PCR ?? 05/07/2023 09:21 ? EKG study * Event Display: ECG 12-Lead Authored Date: Please click on pdf link to open report * Event Display: ECG 12-Lead Authored Date: Ventricular Rate: 85 BPM Atrial Rate: 85 BPM P-R Interval: 144 ms QRS Duration: 92 ms Q-T Interval: 366 ms QTC Calculation(Bazett): 435 ms P Regina: 79 degrees R Regina: -12 degrees T Regina: 71 degrees Normal sinus rhythm Normal ECG When compared with ECG of 07-MAY-2023 09:14, MANUAL COMPARISON REQUIRED, DATA IS UNCONFIRMED Confirmed by ASHLEY DOMÍNGUEZ MD () on 05/11/2023 10:23:33 AM [place]: ASHLEY DOMÍNGUEZ MD * Event Display: ECG 12-Lead Authored Date: Please click on pdf link to open report * Event Display: ECG 12-Lead Authored Date: Ventricular Rate: 91 BPM Atrial Rate: 91 BPM P-R Interval: 138 ms QRS Duration: 90 ms Q-T Interval: 356 ms QTC Calculation(Bazett): 437 ms P Regina: 94 degrees R Regina: 61 degrees T Regina: 84 degrees Sinus rhythm with marked sinus arrhythmia Otherwise normal ECG When compared with ECG of 23-APR-2023 06:01, No significant change was found Confirmed by ASHLEY DOMÍNGUEZ MD () on 05/11/2023 9:29:14 AM [place]: ASHLEY DOMÍNGUEZ MD Cardiology * Event Display: Cardiac Rhythm Strips Authored Date: Hospital Progress note * Annie Troy: PERFORM, SIGN, VERIFY Event Display: Progress Note Hospital Authored Date: [id number] Patient: CARLOS MENON Age: 67 years Sex: Male : 1955 Associated Diagnoses: None Author: Annie Troy Findings Problem Related to Alteration in Respiratory Function (new) : Alteration in Respiratory Function/new 05/11/2023 23:00 EDT Alteration in Resp Status Related to COPD Goals & Outcomes, Respiratory Pt will maintain/resume baseline physical assessment Interventions, Respiratory Assess for and report S&S of respiratory distress, Position for comfort & optimal oxygenation Goals/Interventions, Respiratory Yes Respiratory, Problem Start 05/07/2023 22:23 Reviewed Plan with, Respiratory Patient Patient Progression, Respiratory Patient progressing according to plan . Nursing Data Vital Signs : VITAL SIGNS SECTION 05/12/2023 0:00 EDT Temperature 98.7 DegF Temperature Route Oral Pulse Rate 74 bpm Systolic Blood Pressure 108 mm Hg Diastolic Blood Pressure 61 mm Hg Pulse Pressure 47 mm Hg Oxygen Saturation 92 % L Liters per Minute 4 L/min Mode of Delivery (Oxygen) Other: sheldon . Evaluation (Pt A&Ox4. VSS. Reporting chronic pain with some relief from prn dilaudid. Remains on 4-6L o2 via Sheldon. Spontaneous cough productive of thick green sputum, able to clear without issue. No lethargy or obtundation this evening. Pt wearing BiPap for approximately 30 minutes before requesting to take off. Approached frequently about reapplying but pt had various excuses why he could not yet. Pt then developed a persistent nose bleed that was going down throat, coughing up some clots. MD Szymanski notified, Afrin ordered, given with positive effect. MD also aware of pt not wearing Bipap. Frequent safety rounding in place, see [facility] for full assessment. ) * Stella Khan DO: PERFORM Event Display: Progress Note Hospital Authored Date: [id number] Patient: ??CARLOS MENON ? Age:??67 Years?Sex:??Male?:??1955?? Subjective Overnight, patient was lethargic and [employer] was called.?? ABG revealing??pH of 7.29, PCO2 of 70.7.?? Could also be in the setting of??pain medications??on board as well as??nerve block earlier.?? Patient??had initially declined to wear BiPAP,??evening team was able to have pt place it on overnight. ?? Pt reports that he does not like the sounds the bipap makes as he as a and the sounds it makes reminds him of what he was trained to avoid... will give ear plugs for tonight. Discussed GOC and how wearing this mask is crucial to his care. He is in agreement to try. Pain in R shoulder is improved but still present, reports hip pain is persistent. Pulm rehab worked with the pt, still 2L at rest and 3L w. activity Review of Systems Full review of systems was completed. Pertinent positives and negatives as above. Objective Vital Signs?? Temperature: 99 DegF (05/11/23 15:00:00) Temperature Route: Oral (05/11/23 15:00:00) Pulse Rate: 76 bpm (05/11/23 15:00:00) Heart Rate Monitored: 72 bpm (05/11/23 04:00:00) Respiratory Rate: 18 br/min (05/11/23 16:03:00) Systolic Blood Pressure: 121 mm Hg (05/11/23 15:00:00) Diastolic Blood Pressure: 60 mm Hg (05/11/23 15:00:00) Blood pressure sites: Arm, left (05/11/23 04:00:00) Pulse Pressure: 61 mm Hg (05/11/23 15:00:00) Oxygen Saturation: 97 % (05/11/23 15:00:00) Liters per Minute: 5 L/min (05/11/23 15:00:00) Mode of Delivery (Oxygen): Other: sheldon (05/11/23 15:00:00) FiO2: 100 % (05/11/23 00:31:00) Early Warning Score: 0 (05/11/23 16:03:43) SOFA Calculated: 3 (05/11/23 10:14:13) ? Intake/Output? 05/07 14:08 05/11 07:00 05/10 07:00 05/09 07:00 05/08 07:00 ?? 05/11 17:18 05/11 17:18 05/11 06:59 05/10 06:59 05/09 06:59 Intake ? 2745 ?240 ?330 ?720 ? 1455 Output ? 4110 ?450 ? 1400 ? 1110 ?950 Net Total ?-1365 ? -210 ?-1070 ? -390 ?505 ? Urine Count ?3 ?0 ?0 ?0 ?3 ? Physical Exam General: Appears well.?In no??acute distress Neuro: CN II-XII grossly intact. No focal neurologic deficit appreciated. HEENT: normocephalic, non-traumatic, sclera non-injected. Externally nose without erythema, lesions, no obstructions on external exam CV:?? Normal S1 & S2. No murmurs, rubs, or gallops. Pulm: Diffuse rales clear with cough. Diminished breath sounds on expiratory effort all throughout.??Did not appreciate any wheezing/ronchi. GI: Non-distended with normoactive bowel sounds in all 4 quadrants.??Mild tenderness to palpation along LLQ and RLQ. No guarding or referred pain.?? Vasc: no edema, peripheral pulses 2+ bilaterally Psych: alert, orientedx3, normal affect, ??responds appropriately to questions Results Recent Labs BLOOD COUNT & DIFF WBC 7.8 k/mm3 ()?? 05/11/2023 04:22 RBC 2.95 m/mm3 (Low)?? 05/11/2023 04:22 Hgb 8.0 Gm/dL (Low)?? 05/11/2023 04:22 Hct 26.6 % (Low)?? 05/11/2023 04:22 MCV 90.2 femtoliters ()?? 05/11/2023 04:22 MCH 27.1 pg ()?? 05/11/2023 04:22 MCHC 30.1 g/dL (Low)?? 05/11/2023 04:22 Platelet Count 235 k/mm3 ()?? 05/11/2023 04:22 RDW-SD 58.4 femtoliters (High)?? 05/11/2023 04:22 MPV 10.0 femtoliters ()?? 05/11/2023 04:22 Nucleated RBC (Automated) 0.0 #/100 WBC'S ()?? 05/11/2023 04:22 Abs. NRBC 0.0 k/mm3 ()?? 05/11/2023 04:22 ?? BLOOD GAS pH (POC) POC Cartridge 7.29 (Low)?? 05/10/2023 23:50 pCO2 (POC) POC Cartridge 70.7 mm Hg (Critical)?? 05/10/2023 23:50 pO2 (POC) POC Cartridge 71 mm Hg (Low)?? 05/10/2023 23:50 Estimated Bicarbonate (POC) POC Cart 33.6 mmol/L (High)?? 05/10/2023 23:50 % O2 Sat Arterial (POC) POC Cartridge 91 % (Low)?? 05/10/2023 23:50 FIO2 (POC) POC Cartridge 100 % ()?? 05/10/2023 23:50 Base Excess (POC) POC Cartridge 7 ()?? 05/10/2023 23:50 Specimen Type - Blood Gas ARTERIAL ()?? 05/10/2023 23:50 ?? CHEM GENERAL Sodium 137 mmol/L ()?? 05/11/2023 04:22 Potassium 4.1 mmol/L ()?? 05/11/2023 04:22 Chloride 96 mmol/L (Low)?? 05/11/2023 04:22 Bicarbonate Level 34 mmol/L (High)?? 05/11/2023 04:22 Anion Gap 7 ()?? 05/11/2023 04:22 Glucose (POC) POC Cartridge 120 (High)?? 05/10/2023 23:50 Glucose, POC 133 mg/dL (High)?? 05/10/2023 23:31 BUN 16 mg/dL ()?? 05/11/2023 04:22 Creatinine-Blood 0.6 mg/dL (Low)?? 05/11/2023 04:22 Estimated GFR Creatinine 106 ML/MIN/1.73 M2 ()?? 05/11/2023 04:22 Magnesium 1.7 mg/dL ()?? 05/11/2023 04:22 ?? URINE OTHER Est Creatinine Clearance 94.97 mL/min ()?? 05/10/2023 06:58 ? Abnormal Labs ?? BLOOD COUNT & DIFF ??Abs. NRBC ??0.0 k/mm3 () ??05/11/2023 04:22 ??Hct ??26.6 % (Low) ??05/11/2023 04:22 ??Hgb ??8.0 Gm/dL (Low) ??05/11/2023 04:22 ??MCHC ??30.1 g/dL (Low) ??05/11/2023 04:22 ??Nucleated RBC (Automated) ??0.0 #/100 WBC'S () ??05/11/2023 04:22 ??RBC ??2.95 m/mm3 (Low) ??05/11/2023 04:22 ??RDW-SD ??58.4 femtoliters (High) ??05/11/2023 04:22 ? BLOOD GAS ??% O2 Sat Arterial (POC) POC Cartridge ??91 % (Low) ??05/10/2023 23:50 ??Base Excess (POC) POC Cartridge ??7 () ??05/10/2023 23:50 ??Estimated Bicarbonate (POC) POC Cart ??33.6 mmol/L (High) ??05/10/2023 23:50 ??FIO2 (POC) POC Cartridge ??100 % () ??05/10/2023 23:50 ??Specimen Type - Blood Gas ??ARTERIAL () ??05/10/2023 23:50 ??pCO2 (POC) POC Cartridge ??70.7 mm Hg (Critical) ??05/10/2023 23:50 ??pH (POC) POC Cartridge ??7.29 (Low) ??05/10/2023 23:50 ??pO2 (POC) POC Cartridge ??71 mm Hg (Low) ??05/10/2023 23:50 ? CHEM GENERAL ??Bicarbonate Level ??34 mmol/L (High) ??05/11/2023 04:22 ??Chloride ??96 mmol/L (Low) ??05/11/2023 04:22 ??Creatinine-Blood ??0.6 mg/dL (Low) ??05/11/2023 04:22 ??Estimated GFR Creatinine ??106 ML/MIN/1.73 M2 () ??05/11/2023 04:22 ??Glucose (POC) POC Cartridge ??120 (High) ??05/10/2023 23:50 ??Glucose, POC ??133 mg/dL (High) ??05/10/2023 23:31 ? Note: Critical results are displayed in red. ? Blood Gases Specimen Type - Blood Gas: ARTERIAL (23:50) pH (POC) POC Cartridge:??7.29??Low (23:50) pCO2 (POC) POC Cartridge:??70.7 mm Hg??Critical (23:50) pO2 (POC) POC Cartridge:??71 mm Hg??Low (23:50) Estimated Bicarbonate (POC) POC Cart:??33.6 mmol/L??High (23:50) % O2 Sat Arterial (POC) POC Cartridge:??91 %??Low (23:50) FIO2 (POC) POC Cartridge: 100 % (23:50) Base Excess (POC) POC Cartridge: 7 (23:50) ? Assessment/Plan Pt is a 67 yo M with PMHx of COPD on home 2-3L, tobacco use disorder, CAD, HTN, HLD, hx DVT on eliquis,??anxiety/depression, prior alcohol use disorder, chronic foot ulcers, multiple fractures due tofall complicated by uncontrolled pain, frequent hospitalizations??who is presenting in setting of shortness of breath. Admitted for question of hypoxic respiratory failure but then satting at goal on home O2. Found to have hemoptysis/epistaxis??that has now resolved, Hgb stable. Pain service on board and to perform nerve block 05/10/23. PT recommending rehab w[facility] that he may have run out of rehab hours and pt has not seen PCP in >1 year. ?? PLAN Hemoptysis - likely 2/2 epistaxis (resolved) Acute on chronic normocytic anemia - stable, unclear if true drop in baseline??Hgb as improved by 2points w. 1 u of blood Concern for lung cancer Tobacco use disorder Hx of DVT on apixaban - non-occlusive thrombus in femoral vein 04/20/23 Hgb ~7.5-8, Iron studies 11/14/22 - borderline ID in inflammatory disease/possible ID in setting ofCKD or in HF (but he has no hx of CKD or HF). pt consented for blood transfusion 05/08/23 Etiology: Concern for malignancy give nodules/active smoking, pt reports also picked scab from nosewhich could be contributing. Previously seen by thoracic surgery for possible biopsy but planned to repeat imaging, reached out -> location not amenable to biopsy with risk > benefit, recommend pulm consult for possible bronch CTA Chest 04/20 (CT Chest 05/07 notes unchanged): There is a groundglass area in the left upper lung which is persisting from previous exam of December 2022, as well as exams dating back to October 2021. 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 ?? Plan: -??Consulted ENT:??Do not believe drop in Hgb is from epistaxis,??rec nasal moisturizers,??signed off ?? Last seen??06/2022 -> recommended aggressive hydration of with saline spray 5- 6/day + water based lubricant 3-4x/day. Afrin for acute bleeding -> resumed saline spray - Consider pulm consult for possible bronch if hemoptysis re-appears and Hgb drops-> has hx of lung nodules concerning for malignancy. (see above, thoracic surgery -> no biopsy from them due tolocation) ?? If bleeding resolves and 2/2 epistaxis, f/u outpatient for repeated imaging planned August 2023. - Resume home apixaban today ? Chronic hypercarbic hypoxic respiratory failure - stable Hx of COPD on chronic home O2 2-3L: Several hospitalizations in the past??due to COPD exacerbation Bicarb ranges from 34-38 but on admission WNL Do not believe he is in COPD exacerbation, just finished course prior to admission and O2 is at baseline ?? Plan: - Continue nocturnal Bipap - albuterol nebs??PRN - Home symbicort BID -> breo-ellipta qd - Holding home incruse ellipta as non-formulary - Continue??Roflumilast, prednisone 15mg qd - Pulm rehab evaluated: still 2L at rest and 3L w. activity ? Acute on chronic pain Hx of septic arthritis of R shoulder Hx multiple orthopedic surgeries (pt reports fell down 30 flights of stairs at one point and broke his back) Per??care plan in place from??many years ago??-??AVOID IV DILAUDID??for non- acute issues. CT??of the right shoulder 05/03: there was no glenohumeral??joint effusion or periventricular fluid collection, there was some??slightly progressed glenohumeral erosion from previous imaging in October 2022, origin could be chronic or??previous if so??likely osteo, acute osteo could not be excluded.?? Acute pain services was also??consulted and did not recommend any change??to his current regimen.? Plan - Pain service on board:s/p supraclavicular nerve block, continue gabapentin/PO dilaudid/tylenol/lidocaine patch ?? He has upcoming appt with pain doctor outpatient - could consider opioid rotation/titration/spinal cord stimulator at that time. - Continue Doxycycline 100??mg PO (Poor IV access, will switch to PO) - Consulted ortho to change wound vac. See note (atypical for them to manage but they will change 05/09/23).??Appears [facility] had been??planned to??change VAC every Tuesday, Tuesday, Tuesday.?? - Cont to follow-up with [facility] for??further care (spoke to Dr. Linda CORBETT, they are well aware of patient but??would not be appropriate to switch [facility] to[facility] care for his current wound vac)? Hyperkalemia - resolved Unclear cause, renal function is nrml, possibly due to lisinopril use EKG 05/08 without change ?? Plan: - DC lisinopril, BP WNL ? Chronic/stable conditions CAD, HTN, HLD: Continue home atorvastatin, metoprolol, aspirin, isosorbide dinitrate Anxiety/Depression: Continue home duloxetine,??hydroxyzine PRN. Would recommend outpatient f/u for better control of anxiety. If inpatient again, would consider psych consult as this can be a main driver material handler of his SOB/sx. IBS, GERD: Continue home dicyclomine, loperamide PRN, pantoprazole ?? Quality measures Diet:??Regular??double portions VTE prophylaxis:??_Home apixaban Code status:??FULL CODE?? Family update/HCP:??Updated son via phone??last on 05/09/23 OMN:??Ready for DC however, PT recommending rehab w. [facility] that he may have run out of rehab hours and pt has not seen PCP in >1 year. Pt had recently been DCed with [facility] and reportedly will not take him back, CM looking into how many days left of coverage available. ?? Pt discussed with attending physician??Dr. Hinson ?? Stella Khan D.O. Internal medicine PGY2 #[id number] or [facility] ? * Gaby Hinson MD: PERFORM Event Display: Progress Note Hospital Authored Date: Attending Attestation: I have seen and evaluated this patient.?? I have discussed the case and its management with the resident and agree with the findings and plan as documented in the resident???s note. * Stella Khan DO: PERFORM, MODIFY Event Display: Progress Note Hospital Authored Date: Patient: ??CARLOS MENON ? Age:??67 Years?Sex:??Male?:??1955?? Subjective No acute events overnight.? Patient reports that??she was upset this morning that??he had woken up with the BiPAP on his face and did not realize how he got there.?? Reports that this is the noise the machine makes??makes him??nervous.?? Willing to try some earplugs. ?? Had long discussion today regarding his??frequent returns to the hospital??and how to prevent this from happening.?? Frequent presentations for: 1.?? Shortness of breath/COPD exacerbation, likely exacerbated for??continued smoking??which patient reports he does predominantly because he has uncontrolled anxiety??for which she is on duloxetine twice daily maxed??as well as hydroxyzine.?? In??also likely exacerbated due to??hypercarbic respiratory failure in the setting of??no BiPAP use at home.?? He likely will need to have??outpatient follow-up regarding his anxiety??management. 2.?? Uncontrolled pain???pain service consulted,??continue to recommend current pain regimen and plan to do nerve blocks today. 3.?? Epistaxis???we will need to continue to use saline sprays, gel. ??Patient expresses understanding. Review of Systems Full review of systems was completed. Pertinent positives and negatives as above. Objective Vital Signs?? Temperature: 97.5 DegF (05/10/23 14:00:00) Temperature Route: Temporal (05/10/23 14:00:00) Pulse Rate: 80 bpm (05/10/23 16:07:00) Heart Rate Monitored: 76 bpm (05/10/23 17:00:00) Respiratory Rate: 26 br/min (05/10/23 17:00:00) Systolic Blood Pressure: 102 mm Hg (05/10/23 17:00:00) Diastolic Blood Pressure: 68 mm Hg (05/10/23 17:00:00) Blood pressure sites: Arm, left (05/10/23 16:07:00) Mean Arterial Pressure: 83 mm Hg (05/10/23 16:07:00) Pulse Pressure: 34 mm Hg (05/10/23 17:00:00) Oxygen Saturation: 97 % (05/10/23 17:00:00) Liters per Minute: 4 L/min (05/10/23 16:45:00) Mode of Delivery (Oxygen): Nasal cannula (05/10/23 16:45:00) Early Warning Score: 5 (05/10/23 17:13:03) ? Intake/Output? 05/07 14:08 05/10 07:00 05/09 07:00 05/08 07:00 05/07 07:00 ?? 05/10 17:30 05/10 17:30 05/10 06:59 05/09 06:59 05/08 06:59 Intake ? 2445 ?270 ?720 ? 1455 ?0 Output ? 3160 ?900 ? 1110 ?950 ?200 Net Total ? -715 ? -630 ? -390 ?505 ? -200 ? Urine Count ?3 ?0 ?0 ?3 ?0 ? Physical Exam General: Appears well.?In no??acute distress Neuro: CN II-XII grossly intact. No focal neurologic deficit appreciated. HEENT: normocephalic, non-traumatic, sclera non-injected. Externally nose without erythema, lesions, no obstructions on external exam CV:?? Normal S1 & S2. No murmurs, rubs, or gallops. Pulm: Diminished breath sounds on expiratory effort all throughout.?Soft crackles on inspirationthat improve with cough. ??Did not appreciate any wheezing/ronchi. GI: Non-distended with normoactive bowel sounds in all 4 quadrants.??No tenderness to palpation, guarding or referred pain.?? Vasc: no edema, peripheral pulses 2+ bilaterally Psych: alert, orientedx4, normal affect, ??responds appropriately to questions Results Recent Labs BLOOD COUNT & DIFF WBC 10.8 k/mm3 ()?? 05/10/2023 06:01 RBC 3.25 m/mm3 (Low)?? 05/10/2023 06:01 Hgb 9.1 Gm/dL (Low)?? 05/10/2023 06:01 Hct 29.3 % (Low)?? 05/10/2023 06:01 MCV 90.2 femtoliters ()?? 05/10/2023 06:01 MCH 28.0 pg ()?? 05/10/2023 06:01 MCHC 31.1 g/dL (Low)?? 05/10/2023 06:01 Platelet Count 207 k/mm3 ()?? 05/10/2023 06:01 RDW-SD 59.2 femtoliters (High)?? 05/10/2023 06:01 MPV 9.5 femtoliters ()?? 05/10/2023 06:01 Nucleated RBC (Automated) 0.0 #/100 WBC'S ()?? 05/10/2023 06:01 Abs. NRBC 0.0 k/mm3 ()?? 05/10/2023 06:01 ?? BLOOD GAS pH 7.39 ()?? 05/09/2023 17:22 pCO2 57 mm Hg (High)?? 05/09/2023 17:22 pO2 82 mm Hg ()?? 05/09/2023 17:22 Bicarbonate, Estimated 34 mmol/L (High)?? 05/09/2023 17:22 Specimen Type - Blood Gas ARTERIAL ()?? 05/09/2023 17:22 Percent O2 (FIO2) 28 ()?? 05/09/2023 17:22 ?? CHEM GENERAL Sodium 135 mmol/L ()?? 05/10/2023 06:01 Potassium 3.8 mmol/L ()?? 05/10/2023 06:01 Chloride 94 mmol/L (Low)?? 05/10/2023 06:01 Bicarbonate Level 32 mmol/L (High)?? 05/10/2023 06:01 Anion Gap 9 ()?? 05/10/2023 06:01 BUN 17 mg/dL ()?? 05/10/2023 06:01 Creatinine-Blood 0.6 mg/dL (Low)?? 05/10/2023 06:01 Estimated GFR Creatinine 106 ML/MIN/1.73 M2 ()?? 05/10/2023 06:01 Magnesium 1.7 mg/dL ()?? 05/10/2023 06:01 LDH 268 units/L (High)?? 05/09/2023 05:12 Vitamin B12 Level 545 pg/mL ()?? 05/09/2023 05:12 Folic Acid Level 10.0 ng/mL ()?? 05/09/2023 05:12 Iron Level 62 mcg/dL ()?? 05/09/2023 05:12 Iron Binding Capacity, Unsaturated 217 mcg/dL ()?? 05/09/2023 05:12 Iron Binding Capacity, Estimated Total 279 mcg/dL ()?? 05/09/2023 05:12 % Iron Saturation 22 % ()?? 05/09/2023 05:12 Ferritin Level 195 ng/mL ()?? 05/09/2023 05:12 ?? COAG INR 1.0 ()?? 05/09/2023 09:05 Protime (PT) 10.4 seconds ()?? 05/09/2023 09:05 APTT 25.4 seconds ()?? 05/09/2023 09:05 Fibrinogen 419 mg/dL ()?? 05/09/2023 09:05 ?? IMMUNOLOGY GENERAL Haptoglobin 172 mg/dL ()?? 05/09/2023 05:12 ?? URINE OTHER Est Creatinine Clearance 94.97 mL/min ()?? 05/10/2023 06:58 ? Abnormal Labs ?? BLOOD COUNT & DIFF ??Abs. NRBC ??0.0 k/mm3 () ??05/10/2023 06:01 ??Hct ??29.3 % (Low) ??05/10/2023 06:01 ??Hgb ??9.1 Gm/dL (Low) ??05/10/2023 06:01 ??MCHC ??31.1 g/dL (Low) ??05/10/2023 06:01 ??Nucleated RBC (Automated) ??0.0 #/100 WBC'S () ??05/10/2023 06:01 ??RBC ??3.25 m/mm3 (Low) ??05/10/2023 06:01 ??RDW-SD ??59.2 femtoliters (High) ??05/10/2023 06:01 ? CHEM GENERAL ??Bicarbonate Level ??32 mmol/L (High) ??05/10/2023 06:01 ??Chloride ??94 mmol/L (Low) ??05/10/2023 06:01 ??Creatinine-Blood ??0.6 mg/dL (Low) ??05/10/2023 06:01 ??Estimated GFR Creatinine ??106 ML/MIN/1.73 M2 () ??05/10/2023 06:01 ? Note: Critical results are displayed in red. ? Blood Gases?? No qualifying data available. ?? Assessment/Plan ??Pt is a 67 yo M with PMHx of COPD on home 2-3L, tobacco use disorder, CAD, HTN, HLD, hx DVT on eliquis,??anxiety/depression, prior alcohol use disorder, chronic foot ulcers, multiple fractures due to fall complicated by uncontrolled pain, frequent hospitalizations??who is presenting in setting ofshortness of breath. Admitted for question of hypoxic respiratory failure but then satting at goal on home O2. Found to have hemoptysis/epistaxis??that has now resolved, Hgb stable. Pain service on board and to perform nerve block 05/10/23. PT recommending rehab. ?? PLAN Hemoptysis - likely 2/2 epistaxis (resolved) Acute on chronic normocytic anemia - stable, unclear if true drop in baseline??Hgb as improved by 2points w. 1 u of blood Concern for lung cancer Tobacco use disorder Hx of DVT on apixaban - non-occlusive thrombus in femoral vein 04/20/23 Hgb ~7.5-8, Iron studies 11/14/22 - borderline ID in inflammatory disease/possible ID in setting ofCKD or in HF (but he has no hx of CKD or HF). pt consented for blood transfusion 05/08/23 Etiology: Concern for malignancy give nodules/active smoking, pt reports also picked scab from nosewhich could be contributing. Previously seen by thoracic surgery for possible biopsy but planned to repeat imaging, reached out -> location not amenable to biopsy with risk > benefit, recommend pulm consult for possible bronch CTA Chest 04/20 (CT Chest 05/07 notes unchanged): There is a groundglass area in the left upper lung which is persisting from previous exam of December 2022, as well as exams dating back to October 2021. 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 ?? Plan: -??Consulted ENT:??Do not believe drop in Hgb is from epistaxis,??rec nasal moisturizers,??signed off ?? Last seen??06/2022 -> recommended aggressive hydration of with saline spray 5- 6/day + water based lubricant 3-4x/day. Afrin for acute bleeding -> resumed saline spray - Consider pulm consult for possible bronch if hemoptysis re-appears and Hgb drops-> has hx of lung nodules concerning for malignancy. (see above, thoracic surgery -> no biopsy from them due tolocation) ?? If bleeding resolves and 2/2 epistaxis, f/u outpatient for repeated imaging planned August 2023. - Resume home apixaban today ? Chronic hypercarbic hypoxic respiratory failure - stable Hx of COPD on chronic home O2 2-3L: Several hospitalizations in the past??due to COPD exacerbation Bicarb ranges from 34-38 but on admission WNL Do not believe he is in COPD exacerbation, just finished course prior to admission and O2 is at baseline ?? Plan: - Continue nocturnal Bipap - albuterol PRN - Home symbicort BID -> breo-ellipta qd - Holding home incruse ellipta as non-formulary - Continue??Roflumilast to help decrease COPD exacerbations - Hypertonic saline to remove secretions w albuterol - Needs pulmonary toileting - Pulm rehab following, will need to assessment for O2 w. walking prior to DC (Pt declined today but does qualify for NIV) ? Acute on chronic pain Hx of septic arthritis of R shoulder Hx multiple orthopedic surgeries (pt reports fell down 30 flights of stairs at one point and broke his back) Per??care plan in place from??many years ago??-??AVOID IV DILAUDID??for non- acute issues. CT??of the right shoulder 05/03: there was no glenohumeral??joint effusion or periventricular fluid collection, there was some??slightly progressed glenohumeral erosion from previous imaging in October 2022, origin could be chronic or??previous if so??likely osteo, acute osteo could not be excluded.?? Acute pain services was also??consulted and did not recommend any change??to his current regimen.? Plan - Pain service on board: To perform right supraclavicular nerve block, continue gabapentin/PO dilaudid/tylenol. Ordered lidocaine patch ?? He has upcoming appt with pain doctor outpatient - could consider opioid rotation/titration/spinal cord stimulator at that time. - Continue Doxycycline 100??mg PO (Poor IV access, will switch to PO) - Cont Dicyclomine - Consulted ortho to change wound vac. See note (atypical for them to manage but they will change 05/09/23).??Appears VNA had been??planned to??change VAC every Tuesday, Tuesday, Tuesday.?? - Cont to follow-up with [facility] for??further care (spoke to Dr. Linda CORBETT, they are well aware of patient but??would not be appropriate to switch [facility] to??[facility] care for his current wound vac)? Hyperkalemia - resolved Unclear cause, renal function is nrml, possibly due to lisinopril use EKG 05/08 without change ?? Plan: - DC lisinopril, BP WNL ? Chronic/stable conditions CAD, HTN, HLD: Continue home atorvastatin, metoprolol, aspirin, isosorbide dinitrate Anxiety/Depression: Continue home duloxetine,??hydroxyzine PRN. Would recommend outpatient f/u for better control of anxiety. If inpatient again, would consider psych consult as this can be a main driver material handler of his SOB/sx. IBS, GERD: Continue home dicyclomine, loperamide PRN, pantoprazole ?? Quality measures Diet:??Regular??double portions VTE prophylaxis:??_Resume home apixaban as Hgb stable Code status:??FULL CODE?? Family update/HCP:??Updated son via phone?? ast on 05/09/23 OMN:?? Monitor Hgb while resuming apixaban, pain service to do nerve block. PT rec rehab. ?? Pt discussed with attending physician??Dr. Hinson ?? Stella Khan D.O. Internal medicine PGY2 #[id number] or Cortext ?? * Gaby Hinson MD: PERFORM Event Display: Progress Note Hospital Authored Date: Attending Attestation: I have seen and evaluated this patient.?? I have discussed the case and its management with the resident and agree with the findings and plan as documented in the resident???s note. Note * Stella Khan DO: PERFORM, MODIFY, MODIFY Event Display: Discharge/Transfer Note Hospital Authored Date: Patient: ??CARLOS MENON ? Age:??67 Years?Sex:??Male?:??1955?? Patient Information Discharge Location: B Primary Care Physician: Amaya Fallon NP Admit Date/Time: 05/07/23 14:08 Discharge Disposition Discharge Disposition: Home: No Services??- did not have enough medicare days for rehab as recommended, no PCP for VNA sign off. Pt and son prefer patient to come home with [facility] care and family support. _ Discharge Medications Acetaminophen (acetaminophen 325 mg [...] to give the dose of NARCAN Nasal Storden. Remove t... Pantoprazole (pantoprazole 40 mg oral delayed release tablet)?1?tab(s)?40?Milligram?By Mouth?Daily PredniSONE (predniSONE 5 mg oral tablet)?3?tab(s)?15?Milligram?By Mouth?Daily roflumilast (roflumilast 500 mcg oral tablet)?1?tab(s)?500?Microgram?By Mouth?Daily Sodium Chloride Nasal (sodium chloride 0.65% nasal spray)?1?spray(s)?Nares, Both?5 times a day?dryness Sodium Chloride Nasal (Hannibal Saline 0.65% nasal gel)?1?spray(s)?Nares, Both?4 times a day Thiamine (Vitamin B1 100 mg oral tablet)?100?Milligram?1?tablet?By Mouth?Daily umeclidinium (Incruse Ellipta 62.5 mcg/inh inhalation powder)?1?puff(s)?Inhalation?Every 24 hours ? Medications Started saline nasal spray 5x/day nasal saline gel 3-4x/day Narcan PRN ?? *refilled hydromorphone 4mg q4 hrs. Patient on this chronically, per [facility] last filled in February however, pain service consulted and in agreement that patient should continue on current pain regimenwith follow-up wJoseph Anglin. Medications Discontinued lisinopril 2.5 mg daily Doses Changed None PCP Follow-Up/Heads-Up - Hospitalized initially with concern of SOB but found to be stable on home O2 requirements ??SOB likely continually exacerbated by hypercarbic respiratory failure not on bipap AND current tobacco use (which patient reports is 2/2 anxiety) - Please work with patient to better manage his anxiety and tobacco use - Should f/u with pain clinic, [facility]o/ID regarding R shoulder septic arthritis, and repeat imaging of lung nodules per Thoracic surgery - Need to continue noise moisturization as below to prevent further epistaxis Future Appointments Tuesday 1:00 PM EDT ?? With: Leeanne FREEMAN, Amaya Montenegro Where: Primary Care [address] [address]- Status: Pending Tuesday 9:00 AM EDT ?? With: Stevenson Plascencia DO Where: [facility] [address] [place] [id number]- Status: Pending Hospital Course Pt is a 67 yo M with PMHx of COPD on home 2-3L, tobacco use disorder, CAD, HTN, HLD, hx DVT on eliquis, anxiety/depression, prior alcohol use disorder, chronic foot ulcers, multiple fractures due to fall complicated by uncontrolled pain who is presenting in setting of shortness of breath. Admitted for question of hypoxic respiratory failure but then satting at goal on home O2. Found to have hemoptysis/epistaxis s/p 1 u prbcs and ENT evaluation.??Hemodynamically stable, no intervention required as this is likely due to dry nose with irritation.??Pain continues to be uncontrolled, pain service re-consulted and recommendations made as below. PT recommended rehab however, patient has run out ofmedicare days. Does not have a PCP so no one to sign off on VNA. Case management discussed with son, who reports patient lives with [facility] and son lives downstairs. Pt prefers to go home. We will discharge with plan to f/u with new PCP 06/24. ?? Of note, patient has had frequent hospitalizations which appear mainly due to: 1. Shortness of breath in setting of COPD on home 2-3L 2. Pain management 3. Epistaxis ?? Discussed high healthcare utilization??and what would be beneficial to the patient. Palliative had been involved previously in the past however, patient changed mind and did not proceed down the comfort measures path. Regarding his shortness of breath/frequeny COPD exacerbations this is likely due to his lack of sleep study/utilization of Bipap and continued smoking. He qualified for NIV with work-around which we will set up with Anaya. He continues to smoke but declines nicotine substitution as he does not crave it but more so smokes due to his anxiety. Will need continued f/u outpatient to manage anxiety and tobacco cessation, he is on max duloxetine 60mg BID and is also getting hydroxyzine PRN. His multiple comorbidities and pain also contributing to his anxiety. Regarding his chronic pain due to his multiple orthopedic injuries, he likely will need chronic opioid therapy. Acute painservice consulted and made recommendations below. For his epistaxis, reiterated the importance of him using nasal sprays/gel and not picking his nose to prevent this from happening ?? Hospital course by problem list Hemoptysis??- likely 2/2 epistaxis (resolved) Acute on chronic normocytic anemia??- stable, unclear if true drop in baseline Hgb as improved by 2points w. 1 u of blood Concern for lung cancer Tobacco use disorder Hx of DVT on apixaban??- non-occlusive thrombus in femoral vein 04/20/23 ??Hgb ~7.5-8, Iron studies 11/14/22 - borderline ID in inflammatory disease/possible ID in setting of CKD or in HF (but he has no hx of CKD or HF). pt consented for blood transfusion 05/08/23 ??Etiology: Concern for malignancy give nodules/active smoking, pt reports also picked scab from nose which could be contributing. ??Previously seen by thoracic surgery for possible biopsy but planned to repeat imaging, reached out -> location not amenable to biopsy with risk > benefit, recommend pulm consult for possible bronch ??CTA Chest 04/20 (CT Chest 05/07 notes unchanged): There is a groundglass area in the left upper lung which is persisting from previous exam of December 2022, as well as exams dating back to October 2021. 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 ?? Recommendations: ??- Consulted ENT: Do not believe drop in Hgb is from epistaxis, rec nasal moisturizers, signed off ?Last seen 06/2022 -> recommended aggressive hydration of with saline spray 5-6/day + water based lubricant ([place] Jelly, nasal saline gel or Surgilube) 3- 4x/day. Can consider??Afrin for acute bleeding?? - F/u outpatient for repeat imaging/work-up of lung nodules - Continue home apixaban ?? Chronic hypercarbic hypoxic respiratory failure??- stable Hx of COPD on chronic home O2 2-3L: Several hospitalizations in the past due to COPD exacerbation ??Bicarb ranges from 34-38 but on admission WNL ??Do not believe he is in COPD exacerbation, just finished course prior to admission and O2 is at baseline ??Discussed the need for non-invasive pressure support ventilation w. patient??Carlos menon??who suffers from chronic respiratory failure consequent to severe COPD. Due to this severe and lifethreatening disease state, non-invasive pressure support ventilation NIV is being prescribed today to avoid longer hospital stays and/or repeat readmission duet o breathing-related episodes. Pt will need a non-invasive ventilator to help with gas exchange to reduce readmissions and help to improve quality of life. ?? Recommendations ??- Continue nocturnal Bipap ??- albuterol PRN ??- Home symbicort BID, incruse ellipta, roflumilast ? Acute on chronic pain Hx of septic arthritis of R shoulder Hx multiple orthopedic surgeries??(pt reports fell down 30 flights of stairs at one point and brokehis back) Sacral Erythema Non-pressure chronic ulcer of L ankle ??Per care plan in place from many years ago - AVOID IV DILAUDID for non-acute issues. ??CT of the right shoulder 05/03: there was no glenohumeral joint effusion or periventricular fluid collection, there was some slightly progressed glenohumeral erosion from previous imaging in October2022, origin could be chronic or previous if so likely osteo, acute osteo could not be excluded.[facility] and did not recommend any change to his current regimen.? Recommendations ??- Pain service on board: s/p right supraclavicular nerve block, continue gabapentin/PO dilaudid/tylenol.??Will renew dilaudid??up until 06/19??appt, will also send with narcan. ?He has upcoming appt with pain doctor (Dr. Anglin) outpatient reported 06/19- could consider opioid rotation/titration/spinal cord stimulator at that time. ??- Continue Doxycycline 100 mg PO (Poor IV access, will switch to PO) ??- Cont to follow-up with [facility] infectious disease for further care (spoke to Dr. Linda CORBETT, they are well aware of patient but would not be appropriate to switch [facility] to [facility] for his current wound vac) ?Wound vac was removed/pt needs f/u with provider at [facility]??and dressing change recommendations are as below - Wound care recommendations: Septic arthritis of shoulder, right (M00.9):??Clean wound bed with Vashe moistened gauze. Apply Vashe saturated gauze to wound bed for 5 to 10 minutes. Remove and pat dry. Apply thin layer of Z guardto periwound edge; do not reapply if present. Apply Aquacel Ag to wound bed; cut to size of wound. Cover with gauze and Mextra pad; secure with Medipore tape. Change daily and as needed for increaseddrainage ? Erythema (L53.9): Sacrum??(Erythema is blanching; not a pressure ulcer at this point.)??Clean with pH skin cleanser. Dry well. Apply Mepilex border to sacral dressing. Change QD.??Recommend frequent turning/repositioning. Recommend use of Gaymar (waffle cushion) when sitting in chair (for meals only) ? Non-pressure chronic ulcer of left ankle with unspecified severity (L97.329):??Clean w/NS. Pat dry.Apply thin layer of Z guard to periwound edge; do not reapply if present. Apply dime thick layer ofTriad to wound bed. Cover with gauze and secure with Medipore tape. Change QOD. ? Hyperkalemia??- resolved ??Unclear cause, renal function is nrml, possibly due to lisinopril use ??EKG 05/08 without change ?? Recommendations: ??- DC lisinopril, BP WNL ? Chronic/stable conditions CAD, HTN, HLD:??Continue home atorvastatin, metoprolol, aspirin, isosorbide dinitrate Anxiety/Depression:??Continue home duloxetine, hydroxyzine PRN. Would recommend outpatient f/u for better control of anxiety. If inpatient again, would consider psych consult as this can be a main driver material handler of his SOB/sx. IBS, GERD: Continue home dicyclomine, loperamide PRN, pantoprazole ?? Objective Vital Signs?? Temperature: 97.8 DegF (05/12/23 11:00:00) Temperature Route: Oral (05/12/23 11:00:00) Pulse Rate: 75 bpm (05/12/23 11:00:00) Respiratory Rate: 18 br/min (05/12/23 14:11:00) Systolic Blood Pressure: 102 mm Hg (05/12/23 11:00:00) Diastolic Blood Pressure:??52 mm Hg??Low (05/12/23 11:00:00) Blood pressure sites: Arm, right (05/12/23 11:00:00) Pulse Pressure: 50 mm Hg (05/12/23 11:00:00) Oxygen Saturation:??92 %??Low (05/12/23 11:00:00) Liters per Minute: 2 L/min (05/12/23 11:00:00) Mode of Delivery (Oxygen): Nasal cannula (05/12/23 11:00:00) Early Warning Score: 5 (05/12/23 14:12:24) SOFA Calculated: 3 (05/12/23 10:15:29) ? . Physical Exam General: Appears well.?In no??acute distress Neuro: CN II-XII grossly intact. No focal neurologic deficit appreciated. HEENT: normocephalic, non-traumatic, sclera non-injected. Externally nose without erythema, lesions, no obstructions on external exam CV:?? Normal S1 & S2. No murmurs, rubs, or gallops. Pulm: Diffuse rales clear with cough. Diminished breath sounds on expiratory effort all throughout,mild soft expiratory wheezing. ??Did not appreciate any ronchi. GI: Non-distended with normoactive bowel sounds in all 4 quadrants.??Mild tenderness to palpation along LLQ and RLQ. No guarding or referred pain.?? Vasc: no edema, peripheral pulses 2+ bilaterally Psych: alert, orientedx3, normal affect, ??responds appropriately to questions Consultants Pain service: Konrad ESCALONA, Judd Case & Norm AMAYA, William Ortho: Linda AMAYA, Alexis ENT: Ronnie AMAYA, Brenton Hoskins Patient Education Titles Sympathetic Nerve Block?? Obstructive??Sleep Apnea?? Follow-Up Appointments Added Follow Up ?Time Frame ?Comments Derrek ESCALONA, César?1 to 2 weeks?Please follow-up with your pain doctor as planned (you reported an appointment in about 2 weeks) Amaya Fallon?06/24/2023 13:00?You have an appointment on 06/24/23 at 1pm with Amaya Fallon at [facility], [address] [place] [address], [place] [id number]. Please call if you need to cancel or reschedule. Patient Instructions You were hospitalized for shortness of breath but were not found to be in an exacerbation or have apneumonia. We encourage you to wear the BIPAP with sleep and naps and stop smoking to prevent further worsening of your current lung disease. While you were here, you started coughing up blood from your nose??which resolved. This could be due to your dry nostrils and you picking off a scab. Please continue with using saline nasal sprays and gels to moisturize your nose. ?? Follow-up: - repeat imaging in August 2023 regarding your lung nodules. -[facility] regarding your septic arthritis and wound vac, wound care - pain management clinic for your chronic pain - PCP to discuss this hospitalization and control over your anxiety, tobacco use (new PCP on 06/24 at 1pm (Dr. Fallon) ?? Medication changes: - STOP lisinopril 2.5 mg daily - START saline nasal spray 5x/day scheduled & water based lubricant ([place] Jelly, nasal saline gelor Surgilube) 3-4x/day. - We also sent for Narcan as you are on chronic opioids. Please discuss with your family/caregiversin the case there is a concern if you overdose and need someone to administer this to reverse opioid overdose. Results Discharge Labs BLOOD BANK Blood Type A Negative ()?? 05/08/2023 17:00 Antibody Screen Negative ()?? 05/08/2023 17:00 RBC Unit ID [id number] ()?? 05/08/2023 22:15 RBC Available PT ()?? 05/08/2023 22:15 ?? BLOOD COUNT & DIFF WBC 15.7 k/mm3 (High)?? 05/12/2023 01:35 RBC 3.17 m/mm3 (Low)?? 05/12/2023 01:35 Hgb 8.4 Gm/dL (Low)?? 05/12/2023 01:35 Hct 28.8 % (Low)?? 05/12/2023 01:35 MCV 90.9 femtoliters ()?? 05/12/2023 01:35 MCH 26.5 pg (Low)?? 05/12/2023 01:35 MCHC 29.2 g/dL (Low)?? 05/12/2023 01:35 Platelet Count 266 k/mm3 ()?? 05/12/2023 01:35 RDW-SD 58.4 femtoliters (High)?? 05/12/2023 01:35 MPV 9.5 femtoliters ()?? 05/12/2023 01:35 Nucleated RBC (Automated) 0.0 #/100 WBC'S ()?? 05/12/2023 01:35 Abs. NRBC 0.0 k/mm3 ()?? 05/12/2023 01:35 Abs. Neut 13.6 k/mm3 (High)?? 05/07/2023 09:31 Abs. Lymph 1.0 k/mm3 ()?? 05/07/2023 09:31 Abs. Wright 0.9 k/mm3 ()?? 05/07/2023 09:31 Abs. Eo 0.2 k/mm3 ()?? 05/07/2023 09:31 Abs. Baso 0.1 k/mm3 ()?? 05/07/2023 09:31 Neut % 85.5 % (High)?? 05/07/2023 09:31 Lymph % 6.2 % (Low)?? 05/07/2023 09:31 Wright % 5.3 % ()?? 05/07/2023 09:31 Eos % 1.0 % ()?? 05/07/2023 09:31 Baso % 0.4 % ()?? 05/07/2023 09:31 Imm Gran 1.6 % ()?? 05/07/2023 09:31 Abs. Imm Gran 0.3 k/mm3 ()?? 05/07/2023 09:31 ?? BLOOD GAS pH (POC) POC Cartridge 7.29 (Low)?? 05/10/2023 23:50 pCO2 (POC) POC Cartridge 70.7 mm Hg (Critical)?? 05/10/2023 23:50 pO2 (POC) POC Cartridge 71 mm Hg (Low)?? 05/10/2023 23:50 Estimated Bicarbonate (POC) POC Cart 33.6 mmol/L (High)?? 05/10/2023 23:50 % O2 Sat Arterial (POC) POC Cartridge 91 % (Low)?? 05/10/2023 23:50 FIO2 (POC) POC Cartridge 100 % ()?? 05/10/2023 23:50 Base Excess (POC) POC Cartridge 7 ()?? 05/10/2023 23:50 pH 7.39 ()?? 05/09/2023 17:22 pCO2 57 mm Hg (High)?? 05/09/2023 17:22 pO2 82 mm Hg ()?? 05/09/2023 17:22 Bicarbonate, Estimated 34 mmol/L (High)?? 05/09/2023 17:22 Specimen Type - Blood Gas ARTERIAL ()?? 05/10/2023 23:50 Percent O2 (FIO2) 28 ()?? 05/09/2023 17:22 ? CARDIAC Nt-Probnp 197 pg/mL (High)?? 05/07/2023 09:31 High Sensitivity Troponin (HSTnT) 32 ng/L (High)?? 05/07/2023 12:02 ?? CHEM GENERAL Sodium 135 mmol/L ()?? 05/12/2023 01:35 Potassium 4.2 mmol/L ()?? 05/12/2023 01:35 Chloride 95 mmol/L (Low)?? 05/12/2023 01:35 Bicarbonate Level 28 mmol/L ()?? 05/12/2023 01:35 Anion Gap 12 ()?? 05/12/2023 01:35 Glucose Level 90 mg/dL ()?? 05/08/2023 06:31 Glucose (POC) POC Cartridge 120 (High)?? 05/10/2023 23:50 Glucose, POC 133 mg/dL (High)?? 05/10/2023 23:31 BUN 17 mg/dL ()?? 05/12/2023 01:35 Creatinine-Blood 0.6 mg/dL (Low)?? 05/11/2023 04:22 Estimated GFR Creatinine 106 ML/MIN/1.73 M2 ()?? 05/11/2023 04:22 Calcium 9.0 mg/dL ()?? 05/08/2023 06:31 Magnesium 1.6 mg/dL ()?? 05/12/2023 01:35 Protein, Total 7.1 Gm/dL ()?? 05/07/2023 09:31 Albumin 4.4 Gm/dL ()?? 05/07/2023 09:31 AG Ratio 1.6 ()?? 05/07/2023 09:31 LDH 268 units/L (High)?? 05/09/2023 05:12 Alkaline Phosphatase 133 units/L (High)?? 05/07/2023 09:31 AST (SGOT) 25 units/L ()?? 05/07/2023 09:31 ALT (SGPT) 19 units/L ()?? 05/07/2023 09:31 Bilirubin, Total 0.3 mg/dL ()?? 05/07/2023 09:31 Vitamin B12 Level 545 pg/mL ()?? 05/09/2023 05:12 Folic Acid Level 10.0 ng/mL ()?? 05/09/2023 05:12 Lactate 1.2 mmol/L ()?? 05/07/2023 09:31 Iron Level 62 mcg/dL ()?? 05/09/2023 05:12 Iron Binding Capacity, Unsaturated 217 mcg/dL ()?? 05/09/2023 05:12 Iron Binding Capacity, Estimated Total 279 mcg/dL ()?? 05/09/2023 05:12 % Iron Saturation 22 % ()?? 05/09/2023 05:12 Ferritin Level 195 ng/mL ()?? 05/09/2023 05:12 ? COAG INR 1.0 ()?? 05/09/2023 09:05 Protime (PT) 10.4 seconds ()?? 05/09/2023 09:05 APTT 25.4 seconds ()?? 05/09/2023 09:05 Fibrinogen 419 mg/dL ()?? 05/09/2023 09:05 ?? ENDOCRINE/TUMOR MARKER TSH 1.05 uIU/mL ()?? 05/07/2023 09:31 ? HEME OTHER Hold Lavender Top SPECIMEN DISCARDED AFTER 24 HOURS. ()?? 05/08/2023 18:19 ? IMMUNOLOGY GENERAL Haptoglobin 172 mg/dL ()?? 05/09/2023 05:12 ? URINE OTHER Est Creatinine Clearance 94.97 mL/min ()?? 05/10/2023 06:58 ? VIROLOGY COVID-19 by RT-PCR NEGATIVE ()?? 05/07/2023 09:21 ? Imaging(s) ?CT Chest W/ Contrast ?? 05/07/2023 13:41??by Judd Hitchcock MD ?No change from the previous exam. ?? Small amount of mucus/debris in the right mainstem and right lower lobe bronchi. Small amount of mucus/debris within left lower lobe bronchi. Findings are similar to the previous examination and leave the patient at risk for aspiration ?? Areas of groundglass in the left upper and lower lobes are unchanged. Refer to previous report withrespect to recommendations. ?Other Image ?CTA Chest 04/20 (CT Chest 05/07 notes unchanged): There is a groundglass area in the leftupper lung which is persisting from previous exam of December 2022, as well as exams dating back 2020. 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 ? 50??minutes spent on discharge ?? Pt discussed with attending physician??Dr. Hinson ?? Stella Khan D.O. Internal medicine PGY2 #[id number] or Cortext ?? * Gaby Hinson MD: PERFORM Event Display: Discharge/Transfer Note Hospital Authored Date: [id number] Attending Attestation: I have seen and evaluated this patient.?? I have discussed the case and its management with the resident and agree with the findings and plan as documented in the resident???s note. * Gemma Chavira RN: PERFORM Event Display: Patient Education/Instruction Authored Date: [id number] Inpatient Adult Discharge Instructions [address] [address] Name: CARLOS MENON : 1955 Visit: 05/07/2023 14:08:00 Current Date: 05/12/2023 16:18 Account: [id number] Inpatient Adult Discharge Instructions We would like [...] and their families. Surveys are administered by [employer] ?? If further treatment with your primary care physician or another doctor is recommended, it is important for you to keep the appointment. Call your primary care physician or return to the Emergency Department immediately if your condition worsens, fails to improve, or new symptoms develop. If you need to find a doctor, you can call [facility] [employer] for a referral at [phone] or toll free at [phone] or log in to [email or web address].. ?? You can view and manage your care through the patient portal or by using a health care lore of your choosing. [employer] is a website that allows you to securely view your medical information including your hospital discharge summary, office visit summaries, medications and follow-up visits. You can also request appointments, renew medications, and request access to your medical information using a health care lore of your choosing, or just ask a question. You can enroll at [email or web address] or register during your next office visit. You have been discharged from [facility], Patient Care Unit: D6B. If you have any questions regarding these instructions after you leave, please call us and we will be happy to assist you. [facility] Your Care Team Attending Physician Sravan AMAYA, Gaby Consulting Providers Ronnie AMAYA, Brenton Mckeon MD, Alexis Reason for Admission Pt from home with nose bleed since last night, while lying down. Pt spit up approx 200cc of blood. Also reports SOB. Requiring 4L O2. Your Diagnosis COPD with exacerbation Acute on chronic respiratory failure with hypoxia Septic arthritis of shoulder, right Encounter for management of wound VAC History of DVT in adulthood Wound of right shoulder Peripheral artery disease Non-pressure chronic ulcer of left ankle with unspecified severity Erythema Epistaxis Tests Performed Below is a partial list of the tests performed during your hospitalization. You may have had other tests and procedures not included in this list. Please discuss all test results with your provider. ABG ABG POC CARTRIDGE BASE EXCESS POC CARTRIDGE Basic Metabolic Panel BUN CBC CBC w/ Differential Comprehensive Metabolic Panel COVID-19 (Novel Coronavirus), Rapid PCR Creatinine Electrolytes FERRITIN FIBRINOGEN FOLIC ACID GLUCOSE POC GLUCOSE POC CARTRIDGE H + H HAPTOGLOBIN High??Sensitivity??Troponin T HOLD LAVENDER TUBE INR IRON & TIBC Lactate Level LDH Magnesium Level O2 PERCENT (POINT OF CARE) ProBNP PT (INR) PTT TSH with T4 Reflex (Adults Only) Type and Screen VITAMIN B12 CT Chest W/ IV Contrast XR Chest Portable Primary Care Provider Jorge Garcia III, MD Advance Directive Health Care Proxy on File Yes - Health Care Proxy Yes - MOLST Discharge Vitals Temperature: 97.8 DegF Height: 183 cm Pulse Rate: 75 bpm Weight: 54.7 kg Respiratory Rate: 18 br/min Body Mass Index:??16.33 kg/m2??Low Systolic Blood Pressure: 102 mm Hg Body surface area: 1.67 Diastolic Blood Pressure:??52 mm Hg??Low ?? Oxygen Saturation:??92 %??Low ?? Studies Pending All tests and labs ordered during this hospital stay have been completed unless listed below. Please discuss all pending results with your provider listed above in these instructions. ?? Add On Lab Order Blood Culture Blood Culture #2 Hold Blue Top Tube Transfuse RBCs What to do next Instructions From Your Doctor You were hospitalized for shortness of breath but were not found to be in an exacerbation or have apneumonia. We encourage you to wear the BIPAP with sleep and naps and stop smoking to prevent further worsening of your current lung disease. While you were here, you started coughing up blood from your nose??which resolved. This could be due to your dry nostrils and you picking off a scab. Please continue with using saline nasal sprays and gels to moisturize your nose. ?? Follow-up: - repeat imaging in August 2023 regarding your lung nodules. -[facility] regarding your septic arthritis and wound vac, wound care - pain management clinic for your chronic pain - PCP to discuss this hospitalization and control over your anxiety, tobacco use (new PCP on 06/24 at 1pm (Dr. Fallon) ?? Medication changes: - STOP lisinopril 2.5 mg daily - START saline nasal spray 5x/day scheduled & water based lubricant ([place] Jelly, nasal saline gelor Surgilube) 3-4x/day. - We also sent for Narcan as you are on chronic opioids. Please discuss with your family/caregiversin the case there is a concern if you overdose and need someone to administer this to reverse opioid overdose. Discharge Orders Scheduled Follow-Up Appointments Tuesday 1:00 PM EDT ?? With: Leeanne FREEMAN, Amaya Montenegro Where: Primary Care [address] [address]- Status: Pending Tuesday 9:00 AM EDT ?? With: Stevenson Plascencia DO Where: [facility] [address] [place] [address]- Status: Pending You Need to Schedule the Following Appointments Follow Up with??Amaya Fallon When:??06/24/2023 01:00 PM EDT Why: You have an appointment on 06/24/23 at 1pm with Amaya Fallon at [facility], [address] [place] [id number]. Please call if you need to cancel or reschedule. Where: [address] [place] [phone]- Business (1) Follow Up with??César Anglin DO When:??In 8 days 05/20/2023 EDT Why: Please follow-up with your pain doctor as planned. Where: [address] [place] [address] [address] [place] [address]- Discharge Medications CARLOS MENON :1955 Visit Date:05/07/2023 Medications: Please continue your medications until treatment is completed or stopped by your provider. Medications not listed below should be discontinued. Discuss any questions related to medications with your provider. What How Much When Instructions Next Dose New nalOXONE (Narcan 4 mg/ 0.1 mL nasal spray) See instructions If concern for opioid overdose. Gently insert the tip of the nozzle into one nostril, until your fingers on either side of the nozzle are against the bottom of the person's nose. Press the plunger firmly to give the dose of NARCAN Nasal Storden. Remove the NARCAN Nasal Storden from the nostril after giving the dose. Get emergency medical help right away. ?? Pickup at [facility]/pharmacy #[id number] see instructions New Sodium Chloride Nasal (Hannibal Saline 0.65% nasal gel) 1 spray(s) Nares, Both 4 times a day Pickup at [facility]/pharmacy #[id number] 05/12/2023 @ 6am 12pm 6pm and 10pm New Sodium Chloride Nasal (sodium chloride 0.65% nasal spray) 1 spray(s) Nares, Both 5 times a day dryness ?? Pickup at [facility]/pharmacy #[id number] 05/12/2023 @06am 10am 2pm 6pm and 10pm Unchanged Acetaminophen (acetaminophen 325 mg oral tablet) 2 tab(s) Oral Every 4 hours as needed for as needed for fever 05/12/2023 as per instruction Unchanged Albuterol (albuterol 0.042% inhalation solution) 3 Milliliter Nebulized inhalation Every 4 hours 05/12/2023 @ 6am 10am 2pm 6pm and 10pm Unchanged Albuterol (albuterol 90 mcg/ inh inhalation powder) 2 puff(s) Inhalation Every 4 hours as needed for as needed 05/12/2023 @ 6am 10am 2pm 6pm and 10pm Unchanged apixaban (Eliquis 5 mg oral tablet) 1 tab(s) Oral Twice a day Duration: 30 Days 05/12/2023 @ 9am and 9pm Unchanged Aspirin (aspirin 81 mg oral capsule) 1 capsule Oral Daily 05/13/2023 @ 9am Unchanged Atorvastatin (atorvastatin 80 mg oral tablet) 1 tab(s) Oral Daily 05/13/2023 @ 9am Unchanged Budesonide-Formoterol (Symbicort 160mcg/ 4.5mcg Inhaler) 2 puff(s) Inhalation Twice a day 05/12/2023 @ 9am and 9pm Unchanged Dicyclomine (dicyclomine 10 mg oral capsule) 1 capsule Oral 4 times a day 05/12/2023 @ 6am 12pm 6pm and 10pm Unchanged Doxycycline (doxycycline monohydrate 100 mg oral capsule) 100 Milligram Oral Every 12 hours Duration: 30 Days 05/12/2023 @ 9am and 9pm Unchanged Duloxetine (duloxetine 60 mg oral enteric coated capsule) 1 capsule Oral Twice a day 05/12/2023 @ 9am and 9pm Unchanged Gabapentin (gabapentin 300 mg oral capsule) 2 capsule Oral 3 times a day 05/12/2023 @ 6am 2pm and 10pm Unchanged Guaifenesin/ Dextromethorphan (Robitussin DM Liquid) 5 Milliliter Oral Every 6 hours as needed for Cough 05/12/2023 @ 6am 12pm 6pm and 10pm Unchanged Hydromorphone (HYDROmorphone 4 mg oral tablet) 1 tab(s) Oral Every 4 hours as needed for as needed for pain Pickup at [facility]/pharmacy #[id number] see instruction Unchanged HydrOXYzine (hydrOXYzine hydrochloride 10 mg oral tablet) 1 tab(s) Oral 3 times a day as needed for Anxiety see instruction Unchanged Isosorbide Dinitrate (isosorbide dinitrate 30 mg oral tablet) 1 tab(s) Oral Twice a day 05/12/2023 @ 9am and 9pm Unchanged Loperamide (loperamide 2 mg oral capsule) 1 capsule Oral Every 4 hours as needed for for loose stool every 4 hours as needed for loose stools Unchanged Melatonin 10 Milligram Oral Daily at Bedtime as needed for as needed for sleep 05/12/2023 @ 9pm Unchanged Metoprolol (Metoprolol Succinate ER 25 mg oral tablet, extended release) 1 tab(s) Oral Daily 05/13/2023 @ 9am Unchanged Pantoprazole (pantoprazole 40 mg oral delayed release tablet) 1 tab(s) Oral Daily 05/13/2023 @ 9am Unchanged PredniSONE (predniSONE 5 mg oral tablet) 3 tab(s) Oral Daily 05/13/2023 @ 9am Unchanged roflumilast (roflumilast 500 mcg oral tablet) 1 tab(s) Oral Daily 05/13/2023 @ 9am Unchanged Thiamine (Vitamin B1 100 mg oral tablet) 1 tab(s) Oral Daily 05/13/2023 @ 9am Unchanged umeclidinium (Incruse Ellipta 62.5 mcg/ inh inhalation powder) 1 puff(s) Inhalation Every 24 hours 05/12/2023 @ 9am and 9pm Pharmacy Information [facility]/pharmacy #[id number]: [address] [place] [address] [phone] ?? What How Much When Comments Stop Taking Lisinopril (lisinopril 2.5 mg oral tablet) 1 tab(s) Oral Daily Test Results Below is a partial list of the most recent Laboratory test results done prior to this discharge. You may have had other tests and procedures not included in this list. Please discuss all test resultswith your provider. Est Creatinine Clearance - 94.97 mL/min (05/10/2023) RBC Available - PT (05/08/2023) RBC Unit ID - [id number] (05/08/2023) ABG (05/09/2023) ???pH - 7.39???pCO2 - 57 mm Hg???pO2 - 82 mm Hg???Bicarbonate, Estimated - 34 mmol/L???Specimen Type - Blood Gas - ARTERIAL???Percent O2 (FIO2) - 28 ABG POC CARTRIDGE (05/10/2023) ???pH (POC) POC Cartridge - 7.29???pCO2 (POC) POC Cartridge - 70.7 mm Hg???pO2 (POC) POC Cartridge - 71 mm Hg???Estimated Bicarbonate (POC) POC Cart - 33.6 mmol/L???% O2 Sat Arterial (POC) POC Cartridge - 91 %???Specimen Type - Blood Gas - ARTERIAL BASE EXCESS POC CARTRIDGE (05/10/2023) ???Base Excess (POC) POC Cartridge - 7 Basic Metabolic Panel (05/08/2023) ???Sodium - 140 mmol/L???Potassium - 6.1 mmol/L???Chloride - 99 mmol/L???Bicarbonate Level - 26 mmol/L???Anion Gap - 15???Glucose Level - 90 mg/dL???BUN - 40 mg/dL???Creatinine-Blood - 0.8 mg/dL???Estimated GFR Creatinine - 99 ML/MIN/1.73 M2???Calcium - 9.0 mg/dL BUN (05/12/2023) ???BUN - 17 mg/dL CBC (05/12/2023) ???WBC - 15.7 k/mm3???RBC - 3.17 m/mm3???Hgb - 8.4 Gm/dL???Hct - 28.8 %???MCV - 90.9 femtoliters???MCH - 26.5 pg???MCHC - 29.2 g/dL???Platelet Count - 266 k/mm3???RDW-SD - 58.4 femtoliters???MPV - 9.5 femtoliters???Nucleated RBC (Automated) - 0.0 #/100 WBC'S???Abs. NRBC - 0.0 k/mm3 CBC w/ Differential (05/07/2023) ???WBC - 15.9 k/mm3???RBC - 3.88 m/mm3???Hgb - 10.5 Gm/dL???Hct - 34.7 %???MCV - 89.4 femtoliters???MCH - 27.1 pg???MCHC - 30.3 g/dL???Platelet Count - 238 k/mm3???RDW-SD - 60.4 femtoliters???MPV - 9.4 femtoliters???Nucleated RBC (Automated) - 0.0 #/100 WBC'S???Abs. NRBC - 0.0 k/mm3???Abs. Neut - 13.6 k/mm3???Abs. Lymph - 1.0 k/mm3???Abs. Wright - 0.9 k/mm3???Abs. Eo - 0.2 k/mm3???Abs. Baso - 0.1 k/mm3???Neut % - 85.5 %???Lymph % - 6.2 %???Wright % - 5.3 %???Eos % - 1.0 %???Baso % - 0.4 %???Imm Gran - 1.6 %???Abs. Imm Gran - 0.3 k/mm3 Comprehensive Metabolic Panel (05/07/2023) ???Sodium - 141 mmol/L???Potassium - 5.3 mmol/L???Chloride - 96 mmol/L???Bicarbonate Level - 33 mmol/L???Anion Gap - 12???Glucose Level - 100 mg/dL???BUN - 28 mg/dL???Creatinine-Blood - 0.6 mg/dL???Estimated GFR Creatinine - 109 ML/MIN/1.73 M2???Calcium - 10.2 mg/dL???Protein, Total - 7.1 Gm/dL???Al bumin - 4.4 Gm/dL???AG Ratio - 1.6???Alkaline Phosphatase - 133 units/L???AST (SGOT) - 25 units/L???ALT (SGPT) - 19 units/L???Bilirubin, Total - 0.3 mg/dL COVID-19 (Novel Coronavirus), Rapid PCR (05/07/2023) ???COVID-19 by RT-PCR - NEGATIVE Creatinine (05/11/2023) ???Creatinine-Blood - 0.6 mg/dL???Estimated GFR Creatinine - 106 ML/MIN/1.73 M2 Electrolytes (05/12/2023) ???Sodium - 135 mmol/L???Potassium - 4.2 mmol/L???Chloride - 95 mmol/L???Bicarbonate Level - 28 mmol/L???Anion Gap - 12 FERRITIN (05/09/2023) ???Ferritin Level - 195 ng/mL FIBRINOGEN (05/09/2023) ???Fibrinogen - 419 mg/dL FOLIC ACID (05/09/2023) ???Folic Acid Level - 10.0 ng/mL GLUCOSE POC (05/10/2023) ???Glucose, POC - 133 mg/dL GLUCOSE POC CARTRIDGE (05/10/2023) ???Glucose (POC) POC Cartridge - 120 H + H (05/09/2023) ???Hgb - 7.9 Gm/dL???Hct - 24.9 % HAPTOGLOBIN (05/09/2023) ???Haptoglobin - 172 mg/dL High??Sensitivity??Troponin T (05/07/2023) ???High Sensitivity Troponin (HSTnT) - 32 ng/L HOLD LAVENDER TUBE (05/08/2023) ???Hold Lavender Top - SPECIMEN DISCARDED AFTER 24 HOURS. INR (05/07/2023) ???INR - 1.0???Protime (PT) - 10.9 seconds IRON & TIBC (05/09/2023) ???Iron Level - 62 mcg/dL???Iron Binding Capacity, Unsaturated - 217 mcg/dL???Iron Binding Capacity, Estimated Total - 279 mcg/dL???% Iron Saturation - 22 % Lactate Level (05/07/2023) ???Lactate - 1.2 mmol/L LDH (05/09/2023) ???LDH - 268 units/L Magnesium Level (05/12/2023) ???Magnesium - 1.6 mg/dL O2 PERCENT (POINT OF CARE) (05/10/2023) ???FIO2 (POC) POC Cartridge - 100 % ProBNP (05/07/2023) ???Nt-Probnp - 197 pg/mL PT (INR) (05/09/2023) ???INR - 1.0???Protime (PT) - 10.4 seconds PTT (05/09/2023) ???APTT - 25.4 seconds TSH with T4 Reflex (Adults Only) (05/07/2023) ???TSH - 1.05 uIU/mL Type and Screen (05/08/2023) ???Blood Type - A Negative???Antibody Screen - Negative VITAMIN B12 (05/09/2023) ???Vitamin B12 Level - 545 pg/mL Allergies (NKA means No Known Allergies) Toradol??(Morphine allergy, Metaxalone, Naproxen, Cephalexin allergy, hives) Keflex??(rash) Skelaxin??(H/O: migraine) naproxen??(lesions on lips) Problems Active Problems??(25) Anemia?? Anxiety?? CAD?? CAD - Coronary artery [...] Metabolic alkalosis?? Multiple fractures of ribs?? Old MT (myocardial infarction) X 3?? old Rib fractures, right 3-8?? PVD (peripheral vascular disease)?? Smoking greater than 40 pack years?? Underweight?? Education Materials Below is the list of Educational Leaflet Providered with your Discharge Instructions. Sympathetic Nerve Block?? Obstructive??Sleep Apnea?? Valuables and Belongings I fully understand and [...] Review of Valuable and Belonging List: With patient Date for Pt to Sign Valuables/Belongings: 05/10/23 16:07:00 ?? Valuables & Belongings ?? Clothes Electronic devices Jewelry Monetary Items Personal devices Miscellaneous Medications (Valuables) Valuables at Bedside Pants, Shirt, Shoes Cell phone ? Dentures, upper, Other: wound vac bag for R shoulder Cosmetic bag ?? Valuables Sent Home ? Valuables Sent to Security ? Other Discharge Information ?? Wound Assessment?? Wound Assessment?? Wound Location I: Shoulder, right Wound Type I: Other: Ulcer Wound I, Present on Admission: Yes Wound Location II: Lateral malleolus, right ?? Case Management Discharge Plan?? Discharge Plan?? Discharge Agency Information?? Discharge Level of Care at Discharge: Homehealth/VNA Name of Agency #1: [facility] Discharge VNA/Hospice/Home Care: [facility] [phone] Service Categories #1: Physical Therapy, Snf Discharge Medical Equipment Wis.dm: [employer] Service Comments #1: [facility] will call and schedule a nursing visit within 24 hours ofdischarge. ??Please call them if they do not call you. ?? Pulmonary Rehab Status?? Pulmonary Rehab Discharge Status?? Patient Going Home on Oxygen: Yes Portable unit required: Yes Oxygen Device used at Home: Nasal cannula Liter flow: 2 LPM Oxygen Use Duration: At rest Oxygen Device used at Home (secondary): Nasal cannula Liter flow (secondary): 3 LPM Oxygen Use Duration (secondary): With activity Further Oxygen Instructions: NIV for sleep/naps CPAP/BiPAP Mask Type: Full CPAP/BiPAP Mask Size: Medium Respiratory Rate: 18 br/min Discharge Medical Equipment Companies: [employer] Home care instructions: Call company when you get home. ? Common Emergency Awareness Tips IS IT [...] are strongly encouraged to quit. Please call [facility] [employer] at [phone] or [phone] ([phone]) or log in to [email or web address] for referrals to smoking cessation programs. ?? 068 Suicide & Crisis Lifeline is available 20/06 if you or someone you know needs to find a reason to keep living. By calling 292 you'll be connected to a skilled, trained counselor at a crisis center in your area. INPATIENT DISCHARGE INSTRUCTIONS SIGNATURE PAGE CARLOS MENON Location:[facility] Registration Date and Time:05/07/2023 14:08 EDT Primary Care Physician: Jose LEE MD, Jorge Tsang, Attending Physician: Gaby Hinson MD, I CARLOS MENON, have received the above patient education materials/instructions and have verbalized understanding. If ambulance or transport services are being used I further acknowledge being given a choice of service. ?? If you need to contact me, please call me at this number: . Patient/Foley Artist Name: Patient/Foley Artist Signature: Relationship to Patient: Witness Name/Signature: Date: * Bobbi Yin: PERFORM, SIGN, VERIFY Event Display: Patient Education Handout Authored Date: [id number] * An Rios: PERFORM Event Display: Discharge/Transfer Note Hospital Authored Date: [id number] Pulmonary Rehab Discharge Status Entered On: 05/11/2023 13:46 EDT Performed On: 05/11/2023 13:46 EDT by An Rios Pulmonary Rehab Discharge Status Patient Going Home on Oxygen : Yes Portable unit required : Yes Oxygen Device used at Home : Nasal cannula Liter flow : 2 LPM Oxygen Use Duration : At rest Oxygen Device used at Home (secondary) : Nasal cannula Liter flow (secondary) : 3 LPM Oxygen Use Duration (secondary) : With activity Further Oxygen Instructions : NIV for sleep/naps Discharge Medical Equip Companies([email or web address][employer] : [employer] Home care instructions : Call company when you get home. An Rios - 05/11/2023 13:46 EDT * Stella Khan DO: PERFORM Event Display: Patient Education Leaflets Authored Date: [id number] Sympathetic Nerve Block ?? 05206 Sympathetic Nerve Block A sympathetic nerve block helps your healthcare provider find the cause of the burning feeling, pain, or tingling in your arms and hands or legs and feet. During the test, medicine is injected near your spine. This ???blocks?? the sympathetic nerves in that region. If these nerves are causing yourproblem, the injection will ease your symptoms for 1 hour up to a few days. Or it may provide more long-lasting symptom relief. It's used to both diagnose and treat nerve disorders. What are the sympathetic nerves? The sympathetic nervous system is a network of nerves all over your body. The nerves branch from your spine. They control some body functions. These include closing blood vessels and opening the sweat glands. A problem with these nerves can affect blood flow. Symptoms are often felt in the hands orfeet. They may hurt, burn, feel cold, or be sore to the touch. ?? Sympathetic ganglions The sympathetic nervous system is controlled by bunches of nerves called ganglions. One large ganglion, called the stellate ganglion, helps control nerves in the upper body. In the lower body, nervesare controlled by several ganglions that make up the sympathetic chain. ?? Risks and complications Risks and complications are rare, but can include: ??? Bleeding or fluid leaking in the spinal cord??? A hole (puncture) in a blood vessel ??? Infection ??? Lung puncture (collapsed lung) ??? Nerve injury ?? Last Reviewed Date: 2021 ?? 5592-0513 [employer] All rights reserved. This information is not intended as a substitute for professional medical care. Always follow your healthcare professional's instructions. ?? * Stella Khan DO: PERFORM Event Display: Patient Education Leaflets Authored Date: [id number] Obstructive??Sleep Apnea ?? [id number] Obstructive??Sleep Apnea Obstructive sleep apnea is a condition caused by air passages becoming narrowed or blocked during sleep. As a result, breathing stops for short periods. Your body wakes up enough for breathing to start again.??But you don't remember it. The cycle of stopped breathing and brief awakenings can repeatdozens of times a night. This prevents the body from getting to the deeper stages of sleep that areneeded for good rest. Signs of sleep apnea include loud snoring, noisy breathing, and gasping sounds during sleep. Peoplewith sleep apnea often find they use the bathroom many times during the night. Daytime symptoms include waking up tired after a full night's sleep and??waking up with headaches. They can also includefeeling very sleepy or falling asleep during the day,??and having problems with memory or concentrat ion. Risk factors for sleep apnea include: ??? Being overweight ??? Being assigned male at , or being in menopause ??? Smoking ??? Using alcohol or sedating medicines ??? Having enlarged structures in the nose or throat such as enlarged tonsils or adenoids, or extra tissue in the airway Home care Lifestyle changes that can help treat snoring and sleep apnea include: ??? If you're overweight, talk with your healthcare provider about a weight-loss plan for you. ??? Don't drink alcohol for 3 to 4 hours before bedtime. ??? Don't take sedating medicines. Ask your healthcare provider about the medicines you take. ??? If you smoke, talk to your provider about ways to quit. It's important to stayaway from secondhand smoke. Don't use e-cigarettes because of their harmful side effects. ??? Sleepon your side. This can help prevent gravity from pulling relaxed throat tissues into your breathingpassages. ??? If you have allergies or sinus problems that block your nose, ask your provider for help. ??? Use positive airway pressure (PAP). Discuss with your provider the benefits of using PAP athome. And talk about the type of PAP that's best for you. ?? Follow-up care Follow up with your healthcare provider, or as advised.??A diagnosis of sleep apnea is made with a sleep study. Your provider can tell you more about this test. ?? When to get medical care See your healthcare provider if you have daytime symptoms of sleep apnea. These include: ??? Waking up tired after a full night's sleep ??? Waking up with a headache ??? Feeling very sleepy or falling asleep during the day ??? Having problems with memory or concentration Also talk with your provider if your partner tells you that you snore, gasp for air, or stop breathing while you sleep. Seeing your provider is important because sleep apnea can make you more likely to have certain health problems. These include high blood pressure, heart attack, stroke, and sexual dysfunction. If youhave sleep apnea, talk with your healthcare provider about the best treatments for you. ?? Last Reviewed Date: 2022 ?? [id number] [employer]. All rights reserved. This information is not intended as a substitute for professional medical care. Always follow your healthcare professional's instructions. ?? Patient Care team information Care Team Personnel Name: Glo Camarena RN Position: [facility] RN Member Role: Primary Care Nurse Name: Fatimah Bennett RN Position: [facility] RN Member Role: Primary Care Nurse Name: Mariely Hardy RN Position: [facility] RN Member Role: Primary Care Nurse Name: Marleen Uriarte RN Position: [facility] RN Member Role: Primary Care Nurse Name: Sydney Zelaya Position: [facility] Office Staff Member Role: Lifetime Consulting Physician Name: Judd Barahona RN Position: [facility] RN Member Role: Primary Care Nurse Name: Mag Harry RN Position: [facility] RN Member Role: Primary Care Nurse Name: An Blount RN Position: [facility] RN Supv Member Role: Primary Care Nurse Name: Rebecca Whitley RN Position: [facility] RN Member Role: Primary Care Nurse Name: Marianna Ng RN Position: [facility] SN RN Member Role: Primary Care Nurse Name: Avani Odell RN Position: [facility] RN Member Role: Primary Care Nurse Name: Lisbet Hickman RN Position: [facility] RN Member Role: Primary Care Nurse Name: Ruben Bello RN Position: [facility] RN Member Role: Primary Care Nurse Name: Araceli Simon RN Position: [facility] RN Member Role: Primary Care Nurse Name: Moni Dugan RN Position: [facility] RN Member Role: Primary Care Nurse Name: Jorge Garcia III, MD Position: Reference Physician Member Role: PCP Address: Address: [address] [place] [address]- [place] Name: Misty Nguyen RN Position: [facility] RN Member Role: Primary Care Nurse Name: Joyce Cobb Position: [facility] RN Member Role: Primary Care Nurse Name: Sarwat Aj RN Position: [facility] RN Member Role: Primary Care Nurse Name: César Patel RN Position: [facility] RN Member Role: Primary Care Nurse Name: Cassi Batista RN Position: [facility] RN Member Role: Primary Care Nurse Name: Daija Huitron RN Position: [facility] RN Member Role: Primary Care Nurse Name: Ellis Mayfield RN Position: [facility] RN Supv Member Role: Primary Care Nurse Name: Ayah Robison RN Position: [facility] RN Member Role: Primary Care Nurse Name: Radha Moreno RN Position: [facility] RN Member Role: Primary Care Nurse Name: Jina Smalls RN Position: [facility] RN Member Role: Primary Care Nurse Name: Laura Clements RN Position: [facility] RN Member Role: Primary Care Nurse Name: Colette Syed RN Position: [facility] RN Member Role: Primary Care Nurse Name: Muriel Daley RN Position: [facility] RN Supv Member Role: Primary Care Nurse Name: Judith Rojas LPN Position: [facility] RN Member Role: Primary Care Nurse Name: Zohreh Pink RN Position: [facility] RN Member Role: Primary Care Nurse Name: Sophie Berrios RN Position: [facility] RN Member Role: Primary Care Nurse Name: Grisel Mcgowan RN Position: [facility] RN Member Role: Primary Care Nurse Name: Uyen Mitchell RN Position: [facility] RN Member Role: Primary Care Nurse Name: Nasar Smith NP Position: Reference Physician Member Role: Primary Care Nurse Address: Address: [address] [place] [address] [place] [address]- [place] Name: Silas Knox RN Position: [facility] RN Member Role: Primary Care Nurse Name: Elham Lee RN Position: [facility] AMB Nurse Member Role: Primary Care Nurse Name: Dariana Mariee RN Position: [facility] RN Member Role: Primary Care Nurse Name: Ana María Cat RN Position: [facility] RN Member Role: Primary Care Nurse Name: Janet Pacheco RN Position: [facility] RN Member Role: Primary Care Nurse Name: Flor Holley Position: [facility] RN Member Role: Primary Care Nurse Name: Bret Aguirre RN Position: [facility] RN Member Role: Primary Care Nurse Name: Ghazal Moreno Position: [facility] RN Member Role: Primary Care Nurse Name: Audra Martinez RN Position: [facility] RN Member Role: Primary Care Nurse Name: Shahbaz Bobo RN Position: [facility] RN Member Role: Primary Care Nurse Name: Jennifer Yin LPN Position: [facility] RN Member Role: Primary Care Nurse Name: Alina Arce RN Position: [facility] RN Member Role: Primary Care Nurse Name: Judi Krueger RN Position: [facility] RN Member Role: Primary Care Nurse Name: Kasia Lund RN Position: [facility] RN Member Role: Primary Care Nurse Name: Rachna Serrano RN Position: [facility] RN Member Role: Primary Care Nurse Name: Radha Masterson RN Position: [facility] RN Member Role: Primary Care Nurse Name: Landy Villarreal RN Position: [facility] RN Member Role: Primary Care Nurse Name: Adria Bell RN Position: [facility] RN Member Role: Primary Care Nurse Name: Amy Larios RN Position: [facility] RN Member Role: Primary Care Nurse Name: Indira Lindsey RN Position: [facility] SN RN Member Role: Primary Care Nurse Name: Rosa Elena Pope RN Position: [facility] RN Member Role: Primary Care Nurse Name: Florentino Garcia RN Position: [facility] RN Member Role: Primary Care Nurse Name: Cristel Moreno RN Position: [facility] SN RN Member Role: Primary Care Nurse Name: Rosa Elena De León RN Position: [facility] Hospital Wharf Tender Helper Member Role: Primary Care Nurse Name: Judi Hamilton RN Position: [facility] RN Member Role: Primary Care Nurse Name: Tulio Pina RN Position: [facility] RN Member Role: Primary Care Nurse Name: Maximiliano Claros RN Position: [facility] RN Member Role: Primary Care Nurse Name: Narda Barnes RN Position: [facility] RN Member Role: Primary Care Nurse Name: Zoë Cisse RN Position: [facility] RN Member Role: Primary Care Nurse Name: Pat Bowers RN Position: [facility] SN RN Member Role: Primary Care Nurse Name: Gemma Chavira RN Position: [facility] RN Member Role: Primary Care Nurse Name: Ruy Salcido RN Position: [facility] RN Member Role: Primary Care Nurse Name: Hilaria Aparicio RN Position: [facility] RN Member Role: Primary Care Nurse Name: Carly Rosado RN Position: [facility] RN Supadelaida Member Role: Primary Care Nurse Name: Taryn Rosado RN Position: [facility] RN Member Role: Primary Care Nurse Name: Sydney Rosado RN Position: [facility] RN Member Role: Primary Care Nurse Name: Uriel Dumont Position: [facility] RN Member Role: Primary Care Nurse Name: Selene Vazquez RN Position: [facility] RN Member Role: Primary Care Nurse Name: César Gerber RN Position: [facility] RN Member Role: Primary Care Nurse Name: Dariana Becerra RN Position: [facility] RN Member Role: Primary Care Nurse Name: Leyla Verma LPN Position: [facility] RN Member Role: Primary Care Nurse Name: Rody Mays RN Position: [facility] RN Member Role: Primary Care Nurse Name: Marielos Mixon RN Position: [facility] RN Member Role: Primary Care Nurse Name: Radha Flores RN Position: [facility] RN Member Role: Primary Care Nurse Name: Rose Kyle RN Position: [facility] Wharf Tender Helper Member Role: Primary Care Nurse Name: Aimee Salamanca RN Position: [facility] RN Member Role: Primary Care Nurse Name: Jacobo Caceres Position: [facility] RN Member Role: Primary Care Nurse Name: Savanna PINK Attending Position: [facility] ED Medicine MD Name: Ion Munroe RN Position: [facility] ED RN W/OE and Tasks Member Role: Patient Care Provider Name: Pat Casillas Position: [facility] ED OA Charge Member Role: ED Associate Care Team Related Persons Name: STEVENSON HAMM Address: home [address] [address] Name: MELINA MENON Address: [place] [address] Name: GARRY MENON Address: home [address] [address]
--- OUTSIDE RECORDS SUMMARY | 2023-08-15 20:26 | XMS_ITS | Continuity of Care Document ---
Author Name Unknown Organization [facility] ter Address [address] [place] [id number] Care Team Providers Care Stock Replenisher Name Role Phone Jose LEE MD, Jorge Tsang Primary Care Physician [place] [facility] [place]): [place] - 06/04/[address] [address]- Encounter Diagnosis COPD exacerbation(Final) - 05/30/23 Sepsis(Final) - 05/30/23 Discharge Disposition: A-D/C Home Attending Physician: Clifton Garnica MD Admitting Physician: Ana María Perez MD [...] virus vaccine, inactivated 1 10/14/06 Gi rox [id number] 12y+ bivalent booster vax 08/23/22 Recorded SARS-CoV-2 [...] opioid drug. Start Date: 07/02/22 Status: Ordered [place] Saline 0.65% nasal gel 1 sprays, Nares, [...] drug. Start Date: 04/27/22 Status: Ordered Dilaudid 4 mg oral tablet 4 mg, Tablet, By Mouth, Every 4 hours, Hold for respiratory depression (RR <16) or sedation., PRN for Pain , Severe, Routine, 05/31/23 14:39:00 EDT Start Date: 05/31/23 Stop Date: 06/05/23 Status: Discontinued doxycycline monohydrate 100 mg oral tablet 1 tablet = 100 mg, By Mouth, Every 12 hours, for 30 days, continue suppressive Doxycyline therapy, f/u with ID/Dr. Perez, # 60 tablet, 1 Refills, Acute 08/03/23 12:02:00 EDT, 06/04/23 12:02:00 EDT, Tablet, [facility]/pharmacy #[id number], Partial fill upon pat... Start Date: 06/04/23 Stop Date: 08/03/23 Status: Ordered duloxetine 60 mg oral enteric [...] 5 Refills, Maintenance, 04/27/23 13:54:00 EDT, Tablet, [facility], Partial fill upon patient request if the prescription is for a schedule II opioid drug., 183, cm, 04/27/23 7:05:00... Start Date: 04/27/23 Stop Date: 10/24/23 Status: Ordered ferrous sulfate 325 mg oral enteric coated tablet 325 mg, 1, tablet, By Mouth, Daily, # 30 tablet, Refills 1, Tot. Refills 1, Maintenance, 06/04/23 12:19:00 EDT, Route to Pharmacy Electronically, [facility]/pharmacy #[id number], Partial fill upon patient requestif the prescription is for a schedule II opioid rosario... Start Date: 06/04/23 Status: Ordered gabapentin 300 mg oral capsule 600 mg, Capsule, By Mouth, 06/04/23 15:00:00 EDT Start Date: 06/04/23 Stop Date: 06/04/23 Status: Completed gabapentin 300 mg oral capsule 600 mg, 2, capsule, By Mouth, 3 times a day, Refills 0, Maintenance, 01/21/23 10:46:00 EST, Partialfill upon patient request if the prescription is for a schedule II opioid drug. Start Date: 01/21/23 Status: Ordered HYDROmorphone 4 mg oral tablet 1 tablet = 4 mg, By Mouth, Every 4 hours, PRN Pain , Severe, 0 Refills, Maintenance, 06/04/23 11:46:00 EDT, Tablet, Partial fill upon patient request if the prescription is for a schedule II opioid drug. Start Date: 06/04/23 Status: Ordered hydrOXYzine hydrochloride 10 mg oral [...] 06/04/23 11:59:00 EDT, Route to Pharmacy Electronically, [facility]/pharmacy #[id number], Partial fill upon patient request if the [...] predniSONE 10 mg oral tablet See Instructions, 3 tabs daily for 3 days, then 2 tabs daily for 3 days, then continue prednisone 15mg by mouth daily maintenance as previously prescribed by your recovery coach, # 15 tablet, 0 Refills, Maintenance, 06/04/23 11:57:00 EDT, Tablet, [facility] Start Date: 06/04/23 Status: Ordered predniSONE 5 mg oral tablet 3 tablet = 15 mg, By Mouth, Daily, restart after completing taper of prednisone 30mg daily for 3 days, then prednisone 20mg daily for 3 days, then restart prednisone 15mg daily Start prednisone 15mg daily from 06/11/23 with food or milk, # 90 tablet... Start Date: 06/04/23 Status: Ordered Protonix 40 mg oral delayed [...] 0 Refills, Maintenance, 05/06/23 9:44:00 EDT, Tablet, [facility]/pharmacy #[id number], Partial fill upon patient request if the prescription is for a schedule II opioid drug., 182, cm, 05/06/23 7:54:00 EDT, Height,... Start Date: 05/06/23 Status: Ordered sodium chloride 0.65% nasal spray 1 sprays, Nares, Both, 5 times a day, dryness, # 1 each, 0 Refills, Maintenance, 05/12/23 15:40:00 EDT, Nasal [place], [facility]/pharmacy #[id number], Partial fill upon patient request if the prescription is for aschedule II opioid drug., 1 sprays Nares, Both 5 ti... Start Date: 05/12/23 Status: Ordered Symbicort 160mcg/4.5mcg Inhaler 2, puffs, Inhalation, 2 times a day Start Date: 07/02/22 Status: Ordered Toprol XL 25 mg oral tablet, extended release 25 mg, XL Tablet, By Mouth, 06/04/23 9:00:00 EDT Start Date: 06/04/23 Stop Date: 06/04/23 Status: Completed Vitamin B1 100 mg oral [...] fractures of ribs Confirmed 01/06/11 Active [place] (myocardial infarction) X 3 Confirmed Active PVD (peripheral vascular disease) Confirmed Active Tobacco dependence Confirmed Active Underweight Confirmed Active 1Cardiac stents 1991, 1995 Results Orders for Microbiology Reports Name Date Wound Superficial Culture W/ Gram Smear 05/30/23 Blood Culture 05/30/23 Blood Culture #2 05/30/23 Microbiology Reports TEST:Superficial Wound Culture STATUS:Auth (Verified) BODY SITE: SOURCE:SWAB1 COLLECTED DATE/TIME:05/30/23 3:41 PM Superficial Wound Culture SPECIMEN DESCRIPTION : SWAB ARM RT SPECIAL REQUESTS : NONE GRAM STAIN : 1+ TISSUE CELLS 2+ WHITE BLOOD CELLS NO ORGANISMS SEEN CULTURE : 2+ STAPHYLOCOCCUS AUREUS, METHICILLIN RESISTANT. METHICILLIN RESISTANT STAPH AUREUS SHOULD BE CONSIDERED CLINICALLY RESISTANT TO ALL BETA-LACTAMS. This isolate was identified using Maldi-TOF system These AST results were performed on the Vitek 2 ID and AST system REPORT STATUS : FINAL 06/02/2023 ORGANISM 2+ STAPHYLOCOCCUS AUREUS, METHICILLIN RESISTANT. METHICILLIN RESISTANT STAPH AUREUS SHOULD BE CONSIDERED CLINICALLY RESISTANT TO ALL BETA-LACTAMS. This isolate was identified using Maldi-TOF system These AST results were performed on the Vitek 2 ID and AST system METHOD MIN. INHIB. CONC. (MCG/ML) CIPROFLOXACIN SUSCEPTIBLE CLINDAMYCIN SUSCEPTIBLE ERYTHROMYCIN RESISTANT INDUCIBLE CLINDAMYCI NEGATIVE LEVOFLOXACIN SUSCEPTIBLE LINEZOLID SUSCEPTIBLE OXACILLIN RESISTANT RIFAMPIN SUSCEPTIBLE RIFAMPIN RIFAMPIN SHOULD NOT BE USED ALONE FOR ANTIMICROBIAL RIFAMPIN THERAPY. TETRACYCLINE SUSCEPTIBLE TRIMETH/SULFAMETHOX SUSCEPTIBLE VANCOMYCIN SUSCEPTIBLE TEST:Blood Culture, Second Order STATUS:Auth (Verified) BODY SITE: SOURCE:Blood COLLECTED DATE/TIME:05/30/23 2:30 PM Blood Culture, Second Order SPECIMEN DESCRIPTION : BLOOD NO SITE SPECIAL REQUESTS : NONE CULTURE : NO GROWTH 5 DAYS. REPORT STATUS : FINAL 06/04/2023 TEST:Blood Culture STATUS:Auth (Verified) BODY SITE: SOURCE:Blood COLLECTED DATE/TIME:05/30/23 2:05 PM Blood Culture SPECIMEN DESCRIPTION : BLOOD NONE SPECIAL REQUESTS : NONE CULTURE : NO GROWTH 5 DAYS. REPORT STATUS : FINAL 06/04/2023 Radiology Reports * Exam Date Time Procedure Performing Provider Status 06/03/23 2:42 AM MRI Joint Ext Upper W+W/O Contrast Right Brinda Ayala; Luis M (Verified) Notes: (MRI Joint Ext Upper W+W/O Contrast Right) Reason For Exam: Infection RESULT: MRI Joint Ext Upper W+W/O Contrast Right INDICATION: Right shoulder pain. Prior history of septic arthritis. TECHNIQUE: Multiplanar multisequence MRI of the right shoulder was obtained with and without intravenous contrast material. 12 mL of Clariscan intravenous contrast was administered. COMPARISONS: 01/15/2023 FINDINGS: Study is degraded by significant patient motion artifact. Bone: Full-thickness chondral loss involving the entirety of the articulating humeral head and glenoid. Erosion of the humeral head articular surface and posterior glenoid. Flattening of the superioraspect of the humeral head. Edema in the subchondral humeral head as well as proximal humeral metaphysis. There is confluent low T1 signal in the humeral metaphysis as seen on series 7 image 11. Soft tissues: Massive rotator cuff tear involving all of the supraspinatus, infraspinatus and most of the subscapularis. The biceps tendon is torn and retracted out of the [id number]. No significant joint effusion. IMPRESSION: Markedly limited examination due to patient motion artifact. The patient is not able totolerate an MRI. This is similar to prior examination dated 01/15/2023. Chronic erosion of the humeral head and glenoid with full-thickness cartilage loss involving the entirety of the glenohumeral joint. This may reflect the sequela of prior septic arthritis. Abnormal signal within the proximal humeral metaphysis is indeterminate and could reflect red marrow versus osteomyelitis, difficult to assess on the images acquired. Again, tagged white blood cell scan could be helpful in making this determination. No significant joint effusion to suggest septic arthritis. WSN: [id number] Ordering Physician: Heath Szymanski Dictated By: Zack Raza MD Dictated Date/Time: 06/03/23 8:25 am Reviewed By: Zack Raza MD Signed By: Zack Raza MD Signed Date/Time: 06/03/23 8:25 am Transcribed By: BERENICE Transcribed Date/Time: 06/03/23 7:57 am * Exam Date Time Procedure Performing Provider Status 05/30/23 3:13 PM Shoulder Min 2 Views Right Iona Blanco; Luis M (Verified) Notes: (Shoulder Min 2 Views Right) Reason For Exam: Infection RESULT: Shoulder Min 2 Views Right Shoulder Min 2 Views Right, 3 views Hx of Present Illness: Pt reports he can't breath- reports abd pain and chest pain- here yesterday for same- sts everything is worse today- lower abd pain- stabbing pain- reports nausea and black stools. on 4L nc at baseline. productive cough with green sputum.; Reason: Infection; Clinical Question(s): Osteomyelitis; Order Comment: COMPARISON: Multiple priors, most recent concurrently performed chest radiograph. FINDINGS: A fracture of the distal clavicle appears chronic, unchanged compared to multiple priors. High riding humeral head. Arthritic changes involving the glenohumeral and acromioclavicular joints. Partially imaged right rib fixation hardware. IMPRESSION: No acute osseous findings. Glenohumeral erosions described on CT from 05/03/2022 were better assessedon that exam. WSN: [id number] Ordering Physician: Zoë Schaeffer Dictated By: Dariana Hunter MD Dictated Date/Time: 05/30/23 3:41 pm Reviewed By: Dariana Hunter MD Signed By: Dariana Hunter MD Signed Date/Time: 05/30/23 3:41 pm Transcribed By: BERENICE Transcribed Date/Time: 05/30/23 3:38 pm * Exam Date Time Procedure Performing Provider Status 05/30/23 1:47 PM Chest 2 Views Frontal and Lat Angela Blanco; Luis M (Verified) Notes: (Chest 2 Views Frontal and Lat) Reason For Exam: Shortness of Breath, Fever;Other: RESULT: Chest 2 Views Frontal and Lat Chest 2 Views Frontal and Lat INDICATION/CLINICAL QUESTION: Shortness of breath. Chest pain. Acute on chronic hypoxic respiratoryfailure.. TECHNIQUE: Frontal and lateral views of the chest. COMPARISON: 05/29/2023. FINDINGS: LINES AND TUBES: None. LUNGS AND PLEURA: RIGHT CHEST: The right lung is clear and there is no right effusion. LEFT CHEST: The left lung is clear and there is no left effusion. HEART, MEDIASTINUM AND SIVAN: The heart is of normal size. The mediastinum and sivan are normal. BONES AND SOFT TISSUES: Surgically treated right rib fractures as noted previously. Multiple thoracic spine compression fractures unchanged since CT scan 05/07/2023. IMPRESSION: 1. No acute pulmonary, pleural, or mediastinal abnormality. 2. Old thoracic spine compression fractures and old right rib fractures. WSN: [id number] Ordering Physician: Dalila Gallegos Dictated By: Giacomo España MD Dictated Date/Time: 05/30/23 2:06 pm Reviewed By: Giacomo España MD Signed By: Giacomo España MD Signed Date/Time: 05/30/23 2:06 pm Transcribed By: BERENICE Transcribed Date/Time: 05/30/23 2:00 pm Vital Signs Most recent to oldest [Reference Range]: 1 2 3 Height 183 cm (06/04/23 2:25 PM) 183 cm (06/04/23 4:47 AM) 183 cm (06/03/23 8:29 PM) Weight 56.4 kg (05/30/23 10:21 PM) 57 kg (05/30/23 6:15 PM) 57 kg (05/30/23 2:29 PM) Oxygen Saturation [94-100 %] 99 % (06/04/23 2:25 PM) 99 % (06/04/23 4:47 AM) 97 % (06/03/23 8:29 PM) Pulse Rate [55-90 bpm] 66 bpm (06/04/23 2:25 PM) 66 bpm (06/04/23 8:28 AM) 69 bpm (06/04/23 4:47 AM) Body Mass Index [18.5-24.99 kg/m2] 16.84 kg/m2 *L* (05/30/23 10:21 PM) 17.02 kg/m2 *L* (05/30/23 6:15 PM) 17.02 kg/m2 *L* (05/30/23 2:29 PM) Blood Pressure [90-138/55-84 mm Hg] 132/68mm Hg (06/04/23 2:25 PM) 125/81mm Hg (06/04/23 8:28 AM) 130/67mm Hg (06/04/23 4:47 AM) Respiratory Rate [16-30 br/min] 18 br/min (06/04/23 3:19 PM) 18 br/min (06/04/23 3:17 PM) 18 br/min (06/04/23 2:25 PM) Temperature [96.8-100.4 DegF] 98.5 DegF (06/04/23 2:25 PM) 98.7 DegF (06/04/23 4:47 AM) 98.4 DegF (06/03/23 8:29 PM) Liters per Minute 3 L/min (06/04/23 2:25 PM) 3 L/min (06/04/23 4:47 AM) 3 L/min (06/03/23 8:29 PM) Mode of Delivery (Oxygen) Nasal cannula (06/04/23 2:25 PM) Nasal cannula (06/04/23 4:47 AM) Nasal cannula (06/03/23 8:29 PM) Blood pressure sites Arm, right (06/04/23 2:25 PM) Arm, right (06/04/23 4:47 AM) Arm, right (06/03/23 8:29 PM) Temperature Route Oral (06/04/23 2:25 PM) Oral (06/04/23 4:47 AM) Axillary (06/03/23 8:29 PM) Dry Weight 56.4 kg (05/30/23 10:21 PM) 59 kg (05/30/23 6:15 PM) 59 kg (05/30/23 2:29 PM) Weight Obtained Via Bed scale (05/30/23 10:21 PM) Dry Weight Obtained Via Bed scale (05/30/23 10:21 PM) Patient/family stated (05/30/23 11:50 AM) Social History Social History Type Response Tobacco Use: 4 or less cigar ettes(less than 1/4 pack)/day in last 30 days. Interested in cessation: Yes. Other: Reports smoked at least 30 years, up to 1-2 PPD at one point.. Type: Cigarettes. Sex Admission evaluation note * Ana AAMYA, Ana María Glynn: MODIFY Ana María Perez MD: MODIFY, PERFORM Michael AMAYA, Shun: PERFORM, MODIFY Michael AMAYA, Shun: MODIFY Event Display: Admission Note Authored Date: Patient: ??ANT VARMA ? Age:??67 Years?Sex:??Male?:??1955?? Chief Complaint/Reason for Consultation black tarry stools and abd pain wth chest pain, pt grossly pale and ooks ill ? if chrinically ill or acute. History of Present Illness 67 year old male with history of severe COPD on 3-4L NC at baseline with recurrent admissions for exacerbations, DVT of left lower extremity on Eliquis, chronic normocytic anemia,hx. of multiple rib fractures and vertebral compression fractures on chronic opioids presents to the ED for the 3rd timein 1 week for shortness of breath, diffuse abdominal pain and chest pain with new concerns regarding one episode of black tarry stools and green sputum. Patient states that the greenish sputum started a couple of days ago, and it is thicker than usual. He denies fevers or needing increased amount of oxygen at home but notes that the illness is worsening his pain. He was recently discharged from [facility] on 05/27 with 3 more days of prednisone with today being the last day for a COPD exacerbation. He states that he has quit smoking which he is happy to have done but remains incredibly anxious and dependent on oral dilaudid 4mg 4 times a day for pain control. He had one episode of black tarry stools at home morning of 05/30 with preceding and subsequent bowel movements all being his normal brown. The patient this morning felt a heaviness in his chest which prompted him to come to the emergency room again for evaluation. ?? While in the emergency room, patient was noted to be hypotensive, slightly tachycardic and saturating in the 90s on 4L O2 Labs significant for an elevated white count to 17.4 with neutrophilic predominance, ??Mild hypernatremia to 146 with an elevated bicarb at 41 (has been in the 35-38 range consistently on other admissions). Lactate 1.6. CXR completed without signs of pneumonia, Shoulder XR performed given patient's low blood pressures and wound on right shoulder with arthritis and chronicerosions of the shoulder. Patient given 2.5 L of IVFs, vancomycin and azithromycin and admission was requested for further care.?? Review of Systems General:??Denies fevers or chills.?? + Decreased appetite due to pain HEENT: Denies headache, acute vision changes, difficulty swallowing?? Cardiovascular:??Denies any chest pain or palpitations. Pulmonary:??Denies any shortness of breath or cough. GI:??Denies any abdominal pain, nausea, vomiting, diarrhea or constipation, blood in stool. + 1 episode of melena. :??Denies any urinary retention, burning with urination, increased frequency, blood in urine MSK:??See above, multiple chronic sources of pain. NEURO:??Denies paresthesias, numbness, weakness in upper or lower extremities PSYCH: +Anxiety Objective Measurements?? Height: 183 cm (05/30/23) Weight: 57 kg (05/30/23) Dry Weight: 59 kg (05/30/23) Body Mass Index:??17.02 kg/m2??Low (05/30/23) ? Vital Signs?? Temperature: 97.9 DegF (05/30/23 20:22:00) Temperature Route: Oral (05/30/23 20:22:00) Pulse Rate: 70 bpm (05/30/23 20:22:00) Respiratory Rate: 18 br/min (05/30/23 20:22:00) Systolic Blood Pressure:??85 mm Hg??Low (05/30/23 20:22:00) Diastolic Blood Pressure: 55 mm Hg (05/30/23 20:22:00) Blood pressure sites: Arm, right (05/30/23 20:22:00) Mean Arterial Pressure: 75 mm Hg (05/30/23 18:15:00) Pulse Pressure: 30 mm Hg (05/30/23 20:22:00) Oxygen Saturation: 100 % (05/30/23 20:22:00) Liters per Minute: 4 L/min (05/30/23 20:22:00) Mode of Delivery (Oxygen): Nasal cannula (05/30/23 20:22:00) Early Warning Score: 9 (05/30/23:23:55) ? Intake/Output? 05/30 19:34 05/30 07:00 05/29 07:00 07 07:00 05/27 07:00 ?? 05/30 20:25 07/03 20:25 05/30 06:59 05/29 06:59 05/28 06:59 Intake ?200 ?200 ?0 ?0 ?0 Output ?0 ?0 ?0 ?0 ?0 Net Total ?200 ?200 ?0 ?0 ?0 ? Physical Exam Recent Vital Signs Temperature: 97.9 DegF (05/30/23 20:22:00) Pulse Rate: 70 bpm (05/30/23 20:22:00) Respiratory Rate: 16 br/min (05/30/23 21:14:00) Systolic Blood Pressure:??85 mm Hg??Low (05/30/23 20:22:00) Diastolic Blood Pressure: 55 mm Hg (05/30/23 20:22:00) Oxygen Saturation: 100 % (05/30/23 20:22:00)? General Appearance:??NAD, lying in bed, tearful. Cachectic male appears older than stated age. HEENT: No scleral icterus or conjunctival injection. EOMI. Cardiovascular: RRR S1 and S2 heard with no M/R/G. Respiratory:?Bilateral wheezing??and prolonged expiratory phase. GI: Soft.??diffusely tender to palpation. Normal bowel sounds present throughout abdomen.?? MS:?Right shoulder with small wound on humeral head with purulent drainage. Not a signficant amount of erythema around the wound. Motion of right shoulder limited by chronic pain from previous episodes of septic arthritis. Neuro: ??No slurred speech. ??Patient seen moving L UE upper and lower extremities independently and antigravity Psych: Alert and oriented x3. Lines: Peripheral IV in place.?? Assessment/Plan Diagnoses COPD exacerbation ??(J44.1) Sepsis ??(A41.9) ?? 67 year old male with history of severe COPD on 3-4L NC at baseline with recurrent admissions for exacerbations, DVT of left lower extremity on Eliquis, chronic normocytic anemia,hx. of multiple rib fractures and vertebral compression fractures on chronic opioids admitted for hypotension and leukocy tosis concerning for sepsis from right humeral head wound, shortness of breath concerning for COPD exacerbation and 1 episode of melanotic stools. ?? Hypotension c/f Sepsis Right superficial humeral wound - No bone evident on external exam but does have purulent drainage - has been treated in the past for MRSA infection of this area and septic arthritis - Endorses chronic weakness in that arm due to pain - shoulder XR without signs of osteomyelitis but did show chronic clavicular fracture that patient denies ever getting ?? Plan: ??- Continue vancomycin pending wound and blood cultures, will add zosyn - Consider CT of shoulder to evaluate further for osteomyelitis, unclear if hardware on ribs seen on CXR is MRI compatible - If present, will need ortho consult (patient follows at [facility] for shoulder) -??Goal Map >60 - Admit to intercare for frequent BPs - cortisol level added on to r/o adrenal insufficiency in the setting of multiple prednisone burstsand tapers. ?? Abdominal Pain Melena - Patient complaining of acute worsening of chronic abdominal pain - Possible etiologies include IBS exacerbation, stercoral colitis, diverticulitis, gastritis with acute upper GI bleed that has now resolved - Patient recently had CT scan of abdomen <1 week ago showing stercoral colitis - Given inability to give pain medications, may also have a component of opioid withdrawal - PAtient had one episode of melena with preceding and subsequent BMs of normal color, lowering suspicion for ongoing bleed. ?? Plan: - Trend hemoglobin - Continue pantoprazole - Regular diet as tolerated - Pain control as below - will hold off on repeat imaging unless melena returns. ?? COPD exacerbation Chronic hypoxic respiratory failure Hypercarbia - Patient is meeting criteria for COPD exacerbation with increased sputum production and change in color - Wheezy on exam - CXR without signs of pneumonia - Was given azithromycin in the ED ?? Plan - Changed incruse ellipta and symbicort to formulary inhalers (spiriva and breo- ellipta respectively), continue home roflumilast - Given no clinical evidence for pneumonia will hold off on CTX + daily azithromycin for treatment - Incentive spirometer - Will start chronic azithromycin therapy per discussion with pulmonology on previous admission - Nightly CPAP/BiPaP - Continue 3-4L NC ? Moderate protein malnutrition in the setting of severe COPD ??- Patient has lost weight even since previous admission (59-->56.4kg) ?? Plan: - Nutrition consult - Will check divalents daily in case of refeeding syndrome - Continue home vitamins ?? Chronic pain - patient has multiple vertebral fractures, rib fractures that are constant sources of pain for him - Currently on duloxetine, gabapentin but states that the dilaudid is the only thing that helps - on previous admissions has been noted to fall asleep between requests for pain medications - Currently too hypotensive for IV pain medications ?? Plan: - Scheduled Tylenol, gabapentin and duloxetine - Hold off on narcotics at this time due to blood pressure - Fentanyl patch 12mcg/hr - Consult acute pain service in the morning. ?? Chronic stable medical conditions: Hypertension:??Holding metoprolol, Imdur while hypotensive DVT: Continue apixaban, hold for signs of bleeding Anxiety: Continue duloxetine and hydroxyzine prn ? Quality Measures Diet: Regular DVT Prophylaxis: Apixaban Code Status:Full Code, confirmed with patient ?? Patient was seen and discussed with attending physician ??Ana ?? Shun Rodriguez MD PGY-3 Medicine-Pediatrics Pager [phone] ? Attending Attestation:??I have seen and evaluated this patient- 05/30/23 on D6[facility] after he returned with multiple concerns including increased drainage and pain from the R shoulder wound, ongoing respiratory complaints that seem to exacerbate pain symptoms with??increased severe generalized painas well as focal pains in the shoulder-- found to have tachycardia, hypotension, leukocytosis concerning for sepsis from wound infection with concern for bony extension. ??I have discussed the case and its management with the resident and agree with the findings and plan as documented in the resident???s note. ?? Histories Allergies Allergies ?(Active and Proposed Allergies Only) naproxen? (Severity: Unknown severity, Onset: Unknown) ?Reactions: lesions on lips Toradol? (Severity: Persistent Mild, Onset: Unknown) ?Reactions: hives, Cephalexin allergy, Naproxen, Metaxalone, Morphine allergy Keflex? (Severity: Unknown severity, Onset: Unknown) ?Reactions: rash ?Comments: tolerates pip/tazo 11/17 Skelaxin? (Severity: Unknown severity, Onset: Unknown) ?Reactions: H/O: migraine ? Past Medical History/Problem List Active Problems?? Anemia Anxiety CAD - Coronary artery disease Chronic low back pain COPD (chronic obstructive pulmonary disease) COPD exacerbation Deep vein thrombosis (DVT) of left lower extremity Epistaxis GERD (gastroesophageal reflux disease) HTN (hypertension) Hyperlipidemia Hyponatremia Metabolic alkalosis Multiple fractures of ribs [place] (myocardial infarction) X 3 Pulmonary cachexia due to COPD PVD (peripheral vascular disease) Smoking greater than 40 pack years Tobacco dependence Underweight ??COVID 11/18 septic arthritis recurrent skin infection ? Past Surgical History Arthrotomy, glenohumeral joint, [...] artery endarterectomy: 08/13/15 multiple lumbar spine surgeries L hip fracture with ORIF 2019 Rib fractures-- fixation ?? Social History Alcohol Details:??Use: Never. Employment/School [...] to give the dose of NARCAN Nasal [place]. Remove t... Pantoprazole (pantoprazole 40 mg oral delayed release tablet)?1?tab(s)?40?Milligram?By Mouth?Daily PredniSONE (predniSONE 10 mg oral tablet)?3?tab(s)?30?Milligram?By Mouth?Daily roflumilast (roflumilast 500 mcg oral tablet)?1?tab(s)?500?Microgram?By Mouth?Daily Sodium Chloride Nasal (sodium chloride 0.65% nasal spray)?1?spray(s)?Nares, Both?5 times a day?dryness Sodium Chloride Nasal ([place] Saline 0.65% nasal gel)?1?spray(s)?Nares, Both?4 times a day Thiamine (Vitamin B1 100 mg oral tablet)?100?Milligram?1?tablet?By Mouth?Daily umeclidinium (Incruse Ellipta 62.5 mcg/inh inhalation powder)?1?puff(s)?Inhalation?Every 24 hours ? Results Recent Labs BLOOD COUNT & DIFF WBC 17.4 k/mm3 (High)?? 05/30/2023 14:30 RBC 3.55 m/mm3 (Low)?? 05/30/2023 14:30 Hgb 9.6 Gm/dL (Low)?? 05/30/2023 14:30 Hct 33.2 % (Low)?? 05/30/2023 14:30 MCV 93.5 femtoliters ()?? 05/30/2023 14:30 MCH 27.0 pg ()?? 05/30/2023 14:30 MCHC 28.9 g/dL (Low)?? 05/30/2023 14:30 Platelet Count 328 k/mm3 ()?? 05/30/2023 14:30 RDW-SD 59.1 femtoliters (High)?? 05/30/2023 14:30 MPV 9.3 femtoliters (Low)?? 05/30/2023 14:30 Nucleated RBC (Automated) 0.0 #/100 WBC'S ()?? 05/30/2023 14:30 Abs. NRBC 0.0 k/mm3 ()?? 05/30/2023 14:30 Abs. Neut 14.6 k/mm3 (High)?? 05/30/2023 14:30 Abs. Lymph 1.0 k/mm3 ()?? 05/30/2023 14:30 Abs. Greene 1.6 k/mm3 (High)?? 05/30/2023 14:30 Abs. Eo 0.0 k/mm3 ()?? 05/30/2023 14:30 Abs. Baso 0.0 k/mm3 ()?? 05/30/2023 14:30 Neut % 83.6 % (High)?? 05/30/2023 14:30 Lymph % 5.6 % (Low)?? 05/30/2023 14:30 Greene % 9.1 % ()?? 05/30/2023 14:30 Eos % 0.2 % ()?? 05/30/2023 14:30 Baso % 0.1 % ()?? 05/30/2023 14:30 Imm Gran 1.4 % ()?? 05/30/2023 14:30 Abs. Imm Gran 0.2 k/mm3 ()?? 05/30/2023 14:30 ?? CARDIAC Nt-Probnp 503 pg/mL (High)?? 05/30/2023 14:30 High Sensitivity Troponin (HSTnT) 31 ng/L (High)?? 05/30/2023 16:15 ?? CHEM GENERAL Sodium 146 mmol/L (High)?? 05/30/2023 14:30 Potassium 3.9 mmol/L ()?? 05/30/2023 14:30 Chloride 98 mmol/L ()?? 05/30/2023 14:30 Bicarbonate Level 41 mmol/L (Critical)?? 05/30/2023 14:30 Anion Gap 7 ()?? 05/30/2023 14:30 Glucose Level 84 mg/dL ()?? 05/30/2023 14:30 BUN 16 mg/dL ()?? 05/30/2023 14:30 Creatinine-Blood 0.7 mg/dL ()?? 05/30/2023 14:30 Estimated GFR Creatinine 104 ML/MIN/1.73 M2 ()?? 05/30/2023 14:30 Calcium 9.7 mg/dL ()?? 05/30/2023 14:30 Protein, Total 6.3 Gm/dL ()?? 05/30/2023 14:30 Albumin 4.1 Gm/dL ()?? 05/30/2023 14:30 AG Ratio 1.9 ()?? 05/30/2023 14:30 Alkaline Phosphatase 98 units/L ()?? 05/30/2023 14:30 Lipase 43 units/L ()?? 05/30/2023 14:30 AST (SGOT) 16 units/L ()?? 05/30/2023 14:30 ALT (SGPT) 20 units/L ()?? 05/30/2023 14:30 Bilirubin, Total 0.5 mg/dL ()?? 05/30/2023 14:30 Lactate 1.6 mmol/L ()?? 05/30/2023 14:30 ?? HEME OTHER Hold Blue Top SPECIMEN DISCARDED AFTER 4 HOURS. ()?? 05/30/2023 14:30 ?? UA/URINALYSIS Appear/Color, Urine YELLOW ()?? 05/30/2023 15:40 Specific [place], Urine 1.021 ()?? 05/30/2023 15:40 pH, Urine 6.5 ()?? 05/30/2023 15:40 Albumin, Urine 1+ (Abnormal)?? 05/30/2023 15:40 Glucose, Urine NEGATIVE ()?? 05/30/2023 15:40 Ketones, Urine NEGATIVE ()?? 05/30/2023 15:40 Bilirubin, Urine NEGATIVE ()?? 05/30/2023 15:40 Hemoglobin, Urine NEGATIVE ()?? 05/30/2023 15:40 Nitrite, Urine NEGATIVE ()?? 05/30/2023 15:40 Leukocyte, Urine NEGATIVE ()?? 05/30/2023 15:40 Urobilinogen 2 mg/dL (Abnormal)?? 05/30/2023 15:40 WBC's, Urine 3 /HPF ()?? 05/30/2023 15:40 RBC's, Urine 2 /HPF ()?? 05/30/2023 15:40 Squamous Epith <1 /HPF ()?? 05/30/2023 15:40 Mucus SLIGHT /LPF ()?? 05/30/2023 15:40 Hold Urine Culture Testing available 48 hours from time of collection. ()?? 05/30/2023 15:40 ?? URINE OTHER Est Creatinine Clearance 87.80 mL/min ()?? 05/30/2023 16:02 ?? VIROLOGY COVID-19 by RT-PCR NEGATIVE ()?? 05/30/2023 14:10 ? EKG study * Event Display: ECG 12-Lead Authored Date: Please click on pdf link to open report * Event Display: ECG 12-Lead Authored Date: Ventricular Rate: 69 BPM Atrial Rate: 69 BPM P-R Interval: 144 ms QRS Duration: 94 ms Q-T Interval: 372 ms QTC Calculation(Bazett): 398 ms P Cambria: 77 degrees R Cambria: -25 degrees T Cambria: 67 degrees Sinus rhythm with Premature atrial complexes Otherwise WNL When compared with ECG of 29-MAY-2023 09:12, Premature atrial complexes are now Present Confirmed by Cristóbal Fair ([id number]) on 06/02/2023 11:42:59 AM [place]: [facility] * Event Display: Cardiac Rhythm Strips Authored Date: Hospital Progress note * Lakeisha Shearer Rn: MODIFY, MODIFY, MODIFY, SIGN, VERIFY, PERFORM Event Display: Progress Note Hospital Authored Date: Patient: ANT VARMA Age: 67 years Sex: Male : 1955 Associated Diagnoses: None Author: Lakeisha Shearer Rn Findings Problem Related to Alteration in Musculoskeletal : Alteration in Musculoskeletal Func/new 06/04/2023 9:00 EDT Alteration in Musculoskeletal Related to Mobility Goals & Outcomes, Musculoskeletal Affected extremity will maintain color/motion/sensation, Pt able to perform ADL's to best of ability, Pt will ambulate safely with assistive device Interventions, Musculoskeletal Assist with repositioning, Teach pt/caregiver on use of pain scale, Teach Pt/caregiver on safety precautions BH Goals/Interventions, Musculoskeletal Yes Musculoskeletal, Problem Start 06/04/2023 10:33 Reviewed Plan with, Musculoskeletal Patient Patient Progression, Musculoskeletal Plan Initiation . Nursing Data Musculoskeletal Data. : Musculoskeletal Data. 06/04/2023 9:00 EDT Musculoskeletal Symptoms Joint stiffness, Joint tenderness, Weakness Musculoskeletal WNL except . Vital Signs : VITAL SIGNS SECTION 06/04/2023 14:25 EDT Early Warning Score 0.00 06/04/2023 14:25 EDT Temperature 98.5 DegF Temperature Route Oral Pulse Rate 66 bpm Respiratory Rate 18 br/min Systolic Blood Pressure 132 mm Hg Diastolic Blood Pressure 68 mm Hg Blood pressure sites Arm, right Mean Arterial Pressure 89 mm Hg Pulse Pressure 64 mm Hg Oxygen Saturation 99 % Liters per Minute 3 L/min Mode of Delivery (Oxygen) Nasal cannula . Evaluation A&O x3. VSS. Reported chronic right shoulder pain. Rec'd scheduled APAP and PRN dilaudid 4mg x2. Cont on 3L supplemental O2. Denied respiratory distress. Dressing to right shoulder changed a/o. Condom catheter in place. Incontinent of stool x3, PRN imodium given. Tolerating regular diet. Rec'd orders to discharge patient home. [facility] and [facility]OT[facility] call and stated that they could not admit pt d/t multiple safety concerns . [facility] provided phone number for [employer] [phone]. This process description writer called and left message for [employer], awaiting return call. . Discharge Information Case Management Discharge Plan : Case Management Discharge Plan Data 05/29/2023 18:18 EDT Discharge Level of Care at [facility] Discharge : Rehab Discharge Index 06/03/2023 13:23 EDT Comments on treatment indicated 67 y/o male admitted for hypotension and leukocytosis concerning for sepsis from right humeral head wound, SOB concerning for COPD exacerbation and 1 episode of melanotic stools. See for gait, stairs, therex and balance. Rec home with services. Walker: distance 20-50 Distance pt will ambulate ~60' with RW and good balance Full chart review completed Yes Hospital course per medical chart Plan of care PT Gait training, Transfer training, Therapeutic exercise, Functional Activities, Balance training * Marcelo Rock: PERFORM, SIGN, VERIFY Event Display: Progress Note Hospital Authored Date: [id number] Patient: ANT VARMA Age: 67 years Sex: Male : 1955 Associated Diagnoses: None Author: Marcelo Rock Findings Problem Related to Alteration in Immunologic : Alteration in Immunologic Function/new 06/03/2023 20:00 EDT Alteration Immunologic Status Related to Sepsis Goals & Outcomes, Immunologic Pt will maintain/resume normal fluid/electrolyte balance, Pt willmaintain intact skin integrity, Pt will not develop complications r/t immobility, Inflammatory/infectious process will resolve, Wound healing will take place Interventions, Immunologic Monitor response to fluid replacement, Maintain patent IV access, Monitor Intake & Output, Maintain and monitor nutritional intake, Assess for presence and degree of edema, Assess skin integrity, Provide non pharmocologic comfort measures BH Goals/Interventions, Immunologic Yes Immunologic, Problem Start 06/03/2023 13:10 Reviewed Plan with, Immunologic Patient Patient Progression, Immunologic Status Pt progressing according to plan . Narrative/Incidental Pt AOx4, VSS, Afebrile. C/o R shoulder pain 08/07, PRN Dilaudid/ scheduled Tylenol w/ some relief. [place] cath patent, CYU. Incon tinent BM x1, hygiene care performed, brief applied. Pt w/ frequent needs throughout night, able to make needs known. IVF running per orders. Medications per MAR, Vanco trough drawn this evening prior to administration. No acute changes this shift. See CIS for assessments.. Discharge Information Case Management Discharge Plan : Case Management Discharge Plan Data 05/29/2023 18:18 EDT Discharge Level of Care at [facility] Discharge : Rehab Discharge Index 06/03/2023 13:23 EDT Comments on treatment indicated 67 y/o male admitted for hypotension and leukocytosis concerning for sepsis from right humeral head wound, SOB concerning for COPD exacerbation and 1 episode of melanotic stools. See for gait, stairs, therex and balance. Rec home with services. Walker: distance 20-50 Distance pt will ambulate ~60' with RW and good balance Full chart review completed Yes Hospital course per medical chart Plan of care PT Gait training, Transfer training, Therapeutic exercise, Functional Activities, Balance training * Nahun AMAYA, Clifton Rosado: PERFORM Event Display: Progress Note Hospital Authored Date: [id number] Patient: ??ANT VARMA ? Age:??67 Years?Sex:??Male?:??1955?? Subjective asks for dilaudid for stomach pain ?? - has chronic right shoulder pain ?? Review of Systems ?? Constitutional- no fever, no chills HEENT- no ear pain, no tinnitus, no sore throat Respiratory- no shortness of breath?? CVS- no chest pain, no palpitations, no syncope Abdomen- has had abdominal pain, no nausea or vomiting Neuro- no headache, no paresthesias, no focal weakness - no dysuria, no hematuria Derm- no rash, no pruritis Objective Vital Signs?? Temperature: 99.1 DegF (06/03/23 14:00:00) Temperature Route: Oral (06/03/23 14:00:00) Pulse Rate:??105 bpm??High (06/03/23 16:22:00) Respiratory Rate: 18 br/min (06/03/23 14:00:00) Systolic Blood Pressure: 123 mm Hg (06/03/23 16:22:00) Diastolic Blood Pressure: 76 mm Hg (06/03/23 16:22:00) Blood pressure sites: Arm, right (06/03/23 14:00:00) Mean Arterial Pressure: 105 mm Hg (06/03/23 06:20:00) Pulse Pressure: 26 mm Hg (06/03/23 14:00:00) Oxygen Saturation: 98 % (06/03/23 14:00:00) Liters per Minute: 3 L/min (06/03/23 14:00:00) Mode of Delivery (Oxygen): Nasal cannula (06/03/23 14:00:00) Early Warning Score: 1 (06/03/23 16:24:39) ? 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 Rt shoulder movements??including flexion, extension, abduction and adduction ??severely limited due to pain and chronic rotator cuff degeneration Extremities: No edema, peripheral pulses palpable. _ Inpatient Medications Medications (28) Active SCHEDULED: (19) Acetaminophen 325 mg Tablet (acetaminophen 325 mg oral tablet) ??650 mg, By Mouth, Every 4 hours Apixaban 5 mg Tablet (apixaban 5 mg oral tablet) ??5 mg, By Mouth, 2 times a day Atorvastatin 80 mg Tablet (atorvastatin 80 mg oral tablet) ??80 mg, By Mouth, Daily Azithromycin 500 mg Tablet (Azithromycin Tablet) ??500 mg, By Mouth, Every Tuesday, Tuesday and Tuesday Breo Ellipta 100 mcg / 25 mcg Inhaler (Breo Ellipta 100 mcg-25 mcg Inhaler) ??1 puffs, Inhalation, Daily Collagenase Topical Oint (30 Gm) (Santyl Topical Oint) ??1 application, Topically, Daily Duloxetine 60 mg Capsule (DULoxetine Capsule) ??60 mg, By Mouth, 2 times a day Gabapentin 300 mg Capsule (gabapentin 300 mg oral capsule) ??600 mg, By Mouth, 3 times a day Metoprolol 25 mg XL Tablet (Toprol XL 25 mg oral tablet, extended release) ??25 mg, By Mouth, Daily Multivitamin Therapeutic / Minerals Tablet (Multivit Therapeutic/Minerals Tablet) ??1 tablet, By Mouth, Daily Nystatin Powder ??1 application, Topically, 2 times a day PredniSONE 20 mg Tablet (predniSONE 20 mg oral tablet) ??40 mg, By Mouth, Daily Remove Patch (Remove ??Patch) ??1 each, Topically, Every 72 hours Remove Patch (Remove ??Patch) ??1 each, Topically, Every 72 hours Roflumilast 500 mcg Tablet (roflumilast 500 mcg oral tablet) ??500 mcg, By Mouth, Daily Spiriva Respimat 2.5 mcg Inhaler (Spiriva Respimat Inhaler) ??2 puffs, Inhalation, Daily Thiamine 100 mg Tablet (Vitamin B1 100 mg oral tablet) ??100 mg, By Mouth, Daily Vancomycin 1 Gm / D5%W 200 mL (Vancomycin IVPB) ??1,000 mg 200 mL, IVPB, Every 24 hours Vashe Wound Care Emollient/Cleanser (Vashe Topical Solution) ??475 mL, Topically, Daily CONTINUOUS: (1) Lactated Ringers (1000 mL) Cont IV 1,000 mL (LR 1,000 mL) ??1,000 mL, IV Infusion, 75 mL/hr PRN: (8) Albuterol/Ipratropium Inhalation Marilin 3mL (Duoneb Inhalation Solution) ??1 vials, BAND Nebulizer, Every 4 hours Dextromethorphan-Guaifenesin 20 mg-200 mg/10 mL Liqu UD (Robitussin DM Liquid) ??5 mL, By Mouth, Every 6 hours HYDROmorphone 4 mg Tablet (Dilaudid 4 mg oral tablet) ??4 mg, By Mouth, Every 4 hours HydrOXYzine HCL 10mg Tablet (HydrOXYzine HCL Tablet) ??10 mg, By Mouth, 4 times a day Loperamide 2 mg Capsule (loperamide 2 mg oral capsule) ??2 mg, By Mouth, Every 4 hours Melatonin 3 mg Tablet (melatonin 5 mg oral tablet) ??9 mg, By Mouth, Daily at bedtime Sodium Chloride 0.65% Nasal [place] (Salinex [place]) ??1 sprays, Nares, Both, 4 times a day Sodium Chloride 0.65% Nasal [place] (Salinex [place]) ??1 sprays, Nares, Both, 4 times a day ? Results Recent Labs BLOOD COUNT & DIFF WBC 12.4 k/mm3 (High)?? 06/03/2023 00:27 RBC 2.65 m/mm3 (Low)?? 06/03/2023 00:27 Hgb 7.3 Gm/dL (Low)?? 06/03/2023 00:27 Hct 24.2 % (Low)?? 06/03/2023 00:27 MCV 91.3 femtoliters ()?? 06/03/2023 00:27 MCH 27.5 pg ()?? 06/03/2023 00:27 MCHC 30.2 g/dL (Low)?? 06/03/2023 00:27 Platelet Count 221 k/mm3 ()?? 06/03/2023 00:27 RDW-SD 57.3 femtoliters (High)?? 06/03/2023 00:27 MPV 9.6 femtoliters ()?? 06/03/2023 00:27 Nucleated RBC (Automated) 0.0 #/100 WBC'S ()?? 06/03/2023 00:27 Abs. NRBC 0.0 k/mm3 ()?? 06/03/2023 00:27 Abs. Neut 9.7 k/mm3 (High)?? 06/02/2023 00:06 Abs. Lymph 0.5 k/mm3 (Low)?? 06/02/2023 00:06 Abs. Greene 0.9 k/mm3 ()?? 06/02/2023 00:06 Abs. Eo 0.0 k/mm3 ()?? 06/02/2023 00:06 Abs. Baso 0.0 k/mm3 ()?? 06/02/2023 00:06 Neut % 85.6 % (High)?? 06/02/2023 00:06 Lymph % 4.8 % (Low)?? 06/02/2023 00:06 Greene % 7.9 % ()?? 06/02/2023 00:06 Eos % 0.1 % ()?? 06/02/2023 00:06 Baso % 0.1 % ()?? 06/02/2023 00:06 Imm Gran 1.5 % ()?? 06/02/2023 00:06 Abs. Imm Gran 0.2 k/mm3 ()?? 06/02/2023 00:06 ?? CHEM GENERAL Sodium 139 mmol/L ()?? 06/03/2023 00:27 Potassium 3.7 mmol/L ()?? 06/03/2023 00:27 Chloride 97 mmol/L (Low)?? 06/03/2023 00:27 Bicarbonate Level 32 mmol/L (High)?? 06/03/2023 00:27 Anion Gap 10 ()?? 06/03/2023 00:27 Glucose Level 204 mg/dL (High)?? 06/03/2023 00:27 BUN 13 mg/dL ()?? 06/03/2023 00:27 Creatinine-Blood 0.8 mg/dL ()?? 06/03/2023 00:27 Estimated GFR Creatinine 100 ML/MIN/1.73 M2 ()?? 06/03/2023 00:27 Calcium 8.2 mg/dL (Low)?? 06/03/2023 00:27 Vitamin B12 Level 738 pg/mL ()?? 06/02/2023 00:06 Folic Acid Level 5.6 ng/mL ()?? 06/02/2023 00:06 Iron Level 26 mcg/dL (Low)?? 06/02/2023 00:06 Iron Binding Capacity, Unsaturated 175 mcg/dL ()?? 06/02/2023 00:06 Iron Binding Capacity, Estimated Total 201 mcg/dL ()?? 06/02/2023 00:06 % Iron Saturation 13 % (Low)?? 06/02/2023 00:06 Ferritin Level 71 ng/mL ()?? 06/02/2023 00:06 C-Reactive Protein 2.5 mg/dL (High)?? 06/02/2023 00:06 ?? HEME OTHER Sed Rate 7 mm/hr ()?? 06/02/2023 00:06 ?? IMMUNOLOGY GENERAL Transferrin 163 mg/dL (Low)?? 06/02/2023 00:06 ?? URINE OTHER Est Creatinine Clearance 73.44 mL/min ()?? 06/03/2023 02:05 ? Assessment/Plan 67 year old male with history of severe COPD on 3-4L NC at baseline with recurrent admissions for exacerbations, DVT of left lower extremity on Eliquis, chronic normocytic anemia,hx. of multiple rib fractures and vertebral compression fractures on chronic opioids admitted for hypotension and leukocy tosis concerning for sepsis from right humeral head wound, shortness of breath concerning for COPD exacerbation and 1 episode of melanotic stools. ?? Hypotension, resolved Concern for sepsis H/o Rt shoulder septic arthritis , with Rt shoulder??wound ??-?- has been treated in the past for MRSA infection / septic arthritis of Rt shoulder, and was mostrecently on suppressive Doxycycline and septic arthritis ??-?- shoulder XR without signs of osteomyelitis??and -??superficial culture from wound drainage??grew MRSA ??Wound gram stain with no organisms observed. Pending cultures. ??- no other??sources of infection- CXR and U/A negative ?-??underwent ??MRI of Rt shoulder??with and without??IV contrast with premedication- ) Limited markedly limited due to motion artifact, chronic erosion of humeral head and glenoid with full-thickness cartilage loss involving entirety of glenohumeral joint, may reflect sequelae of priorseptic arthritis, abnormal signal within proximal humeral metaphysis is indeterminate and could reflect red marrow versus osteomyelitis, difficult to assess on images acquired, tagged WBC scan could be helpful in making this determination, no significant joint effusion to suggest septic arthritis, as read by the radiologist ? I consulted/spoke to orthopedics, Dr. Nayak reviewed MRI, and no orthopedic intervention or other new orthopedic Curtis.?? They deferred to ID regarding antibiotics ?- I?? consulted/ spoke to orthopedic surgery today- they do not recommend any operative intervention, no other ortho recommendations, recommend following up outpatient with??Ortho at [facility] and ID, he has chronic drainage from the??Rt shoulder, - also consulted ID-Zosyn was stopped and continue vancomycin for now - he had a wound vac which was subsequently discontinued 04/2023 - he has previous shoulder surgery with ??Mauricio at [facility], as per ortho - with improved hypotension, transferred out of [facility] 05/31/23. BP stable since then. . -restasrt metoprolol today ?We will continue IV vancomycin??while in hospital, will switch to p.o. doxycycline on discharge??and continue doxycycline for suppressive therapy until follow-up with his??ID physician,??doctor??Kena??at [facility] ? Abdominal Pain ??Initial concern for melena Melena ??- Patient complaining of acute worsening of chronic abdominal pain ??-??no clear etiology identified for abd.??pain,??which he ahs had chronically ??- Patient recently had CT scan of abdomen <1 week ago showing stercoral colitis ??-??patient reported black stool for a few days- consulted GI? - monitor H&H , continue PPI - H&H drifting down to 7.8 - held apixaban and ASA and consulted GI-??GI do not recommend EGD/ no convincing evidence of acuteGI bleed, and are okay with resumption of apixaban and?? ASA. His abdominal pain- GI believes likely from IBS . ???Apixaban restarted,??aspirin is on hold. ??- Continue pantoprazole ??-? COPD exacerbation Chronic hypoxic and hypercapnic respiratory failure ??- CXR without signs of pneumonia ??- Was given azithromycin in the ED ?- Changed Incruse ellipta and Symbicort to formulary inhalers (Spiriva and Breo-ellipta respectively), continue home roflumilast ??- Given no clinical evidence for pneumonia will hold off on CTX?- Incentive spirometer ??- Continue azithromycin therapy per discussion with pulmonology on previous admission. He is on thrice weekly azithromycin. - giving prednisone 40 mg daily for 5 days. ?? -BIPAP DURING NAPS AND HS - have discussed with nursing. He has??had significant hypercarbic resp. failure in the past, and?? high risk of worsening hypercarbia ?- Continue chronic O2- at 3-4L NC ? Moderate protein malnutrition in the setting of severe COPD ??- Nutrition??consult ??- Will check divalents daily in case of refeeding syndrome - Continue home vitamins ? Chronic pain ??- patient has multiple vertebral fractures, rib fractures that are constant sources of pain for him ??- Currently on duloxetine, gabapentin but states that the Dilaudid is the only thing that helps ??-continue??home Dilaudid,?- Scheduled Tylenol, gabapentin and duloxetine - avoid IV opiates ?? Chronic stable medical conditions: ??Hypertension:?restasrt metoprolol, holding??isosorbide dinitrate as above. ?DVT: -??restart apixaban ??Anxiety: Continue duloxetine and hydroxyzine prn ? Quality Measures ??Diet: Regular ??DVT Prophylaxis:??restarted apixaban ??Code Status: Full Code?OMN-continue IV antibiotics, likely DC in 24 hours if remains stable??hemodynamically??on oral antibiotics. ? Consult note * Liu Cornejo RN: PERFORM, MODIFY, SIGN, VERIFY Event Display: Consultation Note Authored Date: [id number] Patient: ANT VARMA Age: 67 years Sex: Male : 1955 Associated Diagnoses: None Author: Liu Cornejo RN right shoulder History of Presenting Problem Date of Service 06/02/2023 Reason for referral Wound: Description Location- Right shoulder Etiology- Chronic infected wound Measurements- 2cm x 1cm x 0.2cm Wound Bed- full thickness skin loss, white/yellow slough Mayda Wound- macerated, erythema Edges-defined, macerated Drainage- saturated serosanguineous purulent Odor- malodorous No fluctuance or induration Goals- moist wound healing, Santyl for enzymatic debridement, Vashe for antimicrobial activity and removal of biofilm . Wound RN consult entered to assess right shoulder wound and make topical recommendations. Patientwas admitted for COPD exacerbation with hypotension and leukocytosis. Suspected sepsis of right humeral head wound. Patient has a PMH of severe COPD on 3-4L of home O2, DVT of left LE, Anemia, multiple rib fractures, vertebral compression fracture on chronic opioid use. Upon entering the room patient is lying in bed. Wound RN role explained and patient is agreeable to assessment as well as photodocumentation. Patient states I have had this wound for a long time . Patient previously seen by wound care RADIAL ROUTER OPERATOR Mehdi Chang and last seen on 05/20/23, please see note for details. Right shoulder wound dressing removed for visualization of right shoulder, which is described in detail above. Recommendationsgiven to direct care RN and spoke with MD Geetha Garnica on the unit. Recommendations: 1.) Right Shoulder: Cleanse with Vashe. Pat dry. Apply z-guard to periwound. Apply morena thick layer of Santyl to wound bed. Cover with Mepilex foam dressing. Change daily and PRN for soilage/soaking. *If wound is draining through Mepilex foam dressing; Please use Mextra Pad with DSD* Plan Time spent 31-45 minutes * Sd AMAYA, Dheeraj H: MODIFY, PERFORM, MODIFY Event Display: Consultation Note Authored Date: Patient: ??ANT VARMA ? Age:??67 Years?Sex:??Male?:??1955?? Referrring Provider Not on Staff, Referring MD Chief Complaint black tarry stools and abd pain wth chest pain, pt grossly pale and ooks ill ? if chrinically ill or acute. Reason for Consultation Dark stool - anemia History of Present Illness ?? 67-year-old male with a past medical history of COPD on 3-4 L supplemental O2 at baseline with multiple recurrent admissions for exacerbations, LLE DVT on apixaban, chronic anemia, chronic pain on opiates, history of CAD and PVD with stenting, hypertension, hyperlipidemia, history of MRSA infectionand septic arthritis, who presented to the ED on 05/30 with shortness of breath, diffuse abdominal and chest pain, 1 episode of dark-colored stool.? There was also concern for sepsis on admission with right shoulder wound and patient was started onbroad-spectrum antibiotics.?? Wound culture growing MRSA however hypotension improved.?? Patient has chronic abdominal pain and continues to complain of that.?? Of note his home Dilaudid regimen of 4mg Q4 hourly was initially held due to hypotension.?? Patient also reported 1 episode of black-colored stool before admission.?? Patient had another episode of dark- colored stool and slow decline in his hemoglobin for which GI was consulted. ?? GI history: Patient is established at [facility] and reportedly has a diagnosis of IBS for which she is ondicyclomine, loperamide.?? Also reported diagnosis of GERD for which she receives PPI.?? We do not currently have these records from his gastroenterology provider.?? Patient states his last colonoscopy was within the last 2 years with polypectomy and he was asked to follow-up with repeat colonoscopy in 10 years. Last EGD was on May 2022 notable for irregularity measuring less than 1 cm in the Z-line and GE junction with erosions in the stomach compatible with erosive gastritis. Biopsy showed reactive changes, fundic type mucosa suggestive of PPI therapy effect and no H. pylori organisms.?? Patient was evaluated by GI in June 2022 for acute on chronic anemia however was not thought to have overt GI bleed and anemia was thought to be multifactorial - multiple episodes of nosebleeds, ecchymosis and chronic inflammation ?? Today patient is lying comfortably in bed.?? He tells me he had 1 black-colored bowel movement before coming to the hospital however he also states that this was well formed solid and not liquid.?? He states he had 1 more episode this morning.?? According to PCT at bedside he had dark brown stool with small amount of red blood.?? Patient denies diarrhea.?? Patient states he has had chronic abdominal pain for almost 4 years.?? He states that he is having mild nausea on and off however denies anyvomiting.?? He denies any episodes of hematochezia, hematemesis.?? He feels his heartburn is well controlled.?? Patient denies alcohol use or drug use or NSAID use.?? He has been continue to smoke 6 c igarettes a day and takes Dilaudid 4 Mg every 4 hourly.?? He does not feel like his abdominal pain is related to eating however does feel like it improves after having a bowel movement.?? Patient waspreviously on iron supplementation which she stopped 4 months ago.?? His hemoglobin seems to be around her baseline of 8???9 and has trended down slowly from 8.0-7.3.?? Patient is vitally stable with HR 77 and BP 158/84.?? Last CT abdomen on 05/22 did not show any acute abnormality or pathology.?? Patient continues to take aspirin and apixaban at home however this has been held in the hospital. ? Review of Systems Full review of systems completed and was negative except as mentioned above in HPI Physical Exam Vitals & Measurements T:??97.3?F?? TMIN:??97.3?F?? TMAX:??98.4?F?? HR:??77??(Peripheral)?? RR:??16?? BP:??158/84?? SpO2:??100%?? Constitutional: Alert, in no distress. Mental Status: Oriented to person, place and time. Neck: Supple, Full range of motion. Respiratory: Clear to B/L auscultation on supplemental O2 Cardiovascular: S1 S2 regular. No murmurs, Gastrointestinal: Abdomen soft, non-tender, non-distended. does not seem tender when pt is distracted.??+ bowel sounds. No pulsatile mass. No hepatosplenomegaly. JOSE C: brown stool. No large external hemorrhoids noted. No melena or BRBPR noted. Neurologic: Cranial nerves II-XII grossly intact. No focal neurological deficits. Flexor plantar response. Moves all extremities spontaneously. Sensation intact bilaterally. Skin: No rashes or lesions. No petechiae or purpura.?? Musculoskeletal: No cyanosis or clubbing. No gross deformities. Normal range of motion. Psychiatric: Normal mood and affect Assessment/Plan ?? Chronic abdominal pain - IBS Acute on chronic normocytic anemia - unlikely overt GI bleed ?? 67-year-old male with a past medical history of COPD on 3-4 L supplemental O2 at baseline with multiple recurrent admissions for exacerbations, LLE DVT on apixaban, chronic anemia, chronic pain on opiates, history of CAD and PVD with stenting, hypertension, hyperlipidemia, history of MRSA infectionand septic arthritis, who presented to the ED on 05/30 with shortness of breath, diffuse abdominal and chest pain, 1 episode of dark-colored stool.?? Admitted and being treated for COPD exacerbation, sepsis with right shoulder wound.?? Patient has history of chronic abdominal pain with IBS.?? Mild decrease in hemoglobin from baseline of 8-9 to 7.3 without any overt signs of bleeding.?? Reported dark stools however no evidence of melena on JOSE C.?? Continues to have baseline abdominal pain however does not seem to be in significant distress.?? His transiently increased abdominal pain could be attributed to IBS and also holding his Dilaudid when he was hypotensive given that he takes a hefty doseat home and might have gone into withdrawal.?? Patients aspirin and apixaban have been held this admission. There is no evidence of acute overt GI bleed on exam??and in setting of recent endoscopies we do not recommend EGD at this time. Anemia is likely multifocal and close to his baseline. ?? Plan: No convincing evidence of acute overt GI bleed at this time??- no plan for endoscopy Patient can resume diet Restart home ASA and apixaban Continue monitoring Hb Continue PPI Pt to f/u outpatient with his GI provider ? Thank you for referring this patient to the Division of Gastroenterology, [facility] at [place], [place].?Please feel free to reach out with any questions or concerns. (The above document was created using [employer] voice recognition software. As such, shoddy mill worker errors may occur. Please contact the provider for additional questions and if clarification is needed.) ?? The patient's case and management was discussed with Dr. Alex Beaver MD Gastroenterology Fellow PGY4?? [facility] Division of Gastroenterology [facility] [email or web address] ? Problem List/Past Medical History Ongoing Anemia Anxiety CAD - Coronary artery disease Chronic low back pain COPD (chronic obstructive pulmonary disease) COPD exacerbation Deep vein thrombosis (DVT) of left lower extremity Epistaxis GERD (gastroesophageal reflux disease) HTN (hypertension) Hyperlipidemia Hyponatremia Metabolic alkalosis Multiple fractures of ribs [place] (myocardial infarction) X 3 Pulmonary cachexia due to COPD PVD (peripheral vascular disease) Smoking greater than 40 pack years Tobacco dependence Underweight Procedure/Surgical History ???Arthrotomy, glenohumeral joint, including [...] tablet, 650 mg, By Mouth, Every 4 hours atorvastatin 80 mg oral tablet, 80 mg, By Mouth, Daily Azithromycin Tablet, 500 mg, By Mouth, Every Tuesday, Tuesday and Tuesday Breo Ellipta 100 mcg-25 mcg Inhaler, 1 puffs, Inhalation, Daily Dilaudid 4 mg oral tablet, 4 mg, By Mouth, Every 4 hours, PRN DULoxetine Capsule, 60 mg, By Mouth, 2 times a day Duoneb Inhalation Solution, 1 vials, BAND Nebulizer, Every 4 hours, PRN gabapentin 300 mg oral capsule, 600 mg, By Mouth, 3 times a day HydrOXYzine HCL Tablet, 10 mg, By Mouth, 4 times a day, PRN loperamide 2 mg oral capsule, 2 mg, By Mouth, Every 4 hours, PRN LR 1,000 mL, 1000 mL, IV Infusion melatonin 5 mg oral tablet, 9 mg, By Mouth, Daily at bedtime, PRN Multivit Therapeutic/Minerals Tablet, 1 tablet, By Mouth, Daily Nystatin Powder, 1 application, Topically, 2 times a day predniSONE 20 mg oral tablet, 40 mg, By Mouth, Daily Remove Patch, 1 each, Topically, Every 72 hours Remove Patch, 1 each, Topically, Every 72 hours Robitussin DM Liquid, 5 mL, By Mouth, Every 6 hours, PRN roflumilast 500 mcg oral tablet, 500 mcg, By Mouth, Daily Salinex [place], 1 sprays, Nares, Both, 4 times a day, PRN Salinex [place], 1 sprays, Nares, Both, 4 times a day, PRN Spiriva Respimat Inhaler, 2 puffs, Inhalation, Daily Vancomycin IVPB, 1000 mg= 200 mL, IVPB, Every 24 hours Vitamin B1 100 mg oral tablet, 100 mg, By Mouth, Daily Zosyn Extended IVPB, 3.375 Gm, IVPB, Every 8 hours Home acetaminophen 325 mg oral tablet, 650 [...] 80 mg= 1 tablet, By Mouth, Daily [place] Saline 0.65% nasal gel, 1 sprays, Nares, Both, 4 times a day dicyclomine 10 mg oral capsule, 10 mg= [...] capsule, By Mouth, 3 times a day hydrOXYzine hydrochloride 10 mg oral tablet, 10 mg= 1 tablet, By Mouth, 3 times a day, PRN Incruse Ellipta 62.5 mcg/inh inhalation powder, 1 puffs, Inhalation, Every 24 hours isosorbide dinitrate 30 mg oral tablet, 30 mg= 1 tablet, By Mouth, 2 times a day loperamide 2 mg oral capsule, 2 mg= 1 capsule, By Mouth, Every 4 hours, PRN Melatonin, 10 mg, By Mouth, Daily at bedtime, PRN Metoprolol Succinate ER 25 mg oral tablet, extended release, 25 mg= 1 tablet, By Mouth, Daily Narcan 4 mg/0.1 mL nasal spray, See Instructions pantoprazole 40 mg oral delayed release tablet, 40 mg= 1 tablet, By Mouth, Daily predniSONE 10 mg oral tablet, 30 mg= 3 tablet, By Mouth, Daily Robitussin DM Liquid, 5 mL, By Mouth, Every 6 hours, PRN roflumilast 500 mcg oral tablet, 500 mcg= 1 tablet, By Mouth, Daily sodium chloride 0.65% nasal spray, 1 sprays, Nares, Both, 5 times a day Symbicort 160mcg/4.5mcg Inhaler, 2 puffs, Inhalation, 2 [...] valve prolapse: Mother. Lupus: Other. Stroke: Father. * Alex AMAYA, Ming: PERFORM Event Display: Consultation Note Authored Date: Attending Attestation:??I have seen and evaluated this patient. ??I have discussed the case and themanagement with the fellow, and agree with the findings and plan as documented in the fellow???s note.?? The patient with history of chronic obstructive pulmonary disease (with chronic respiratory calista lure), pulmonary cachexia, chronic deep vein thrombosis (on apixaban), coronary artery disease (multiple MIs), peripheral vascular disease, chronic foot ulcer, chronic pain, gastroesophageal reflux disease, hypertension, dyslipidemia,??anxiety, depression, alcohol use disorder??and tobacco use??who has been in the hospital??since 05/30/2023??with COPD exacerbation with sepsis??and getting treated with broad-spectrum antibiotics would not have a favorable risk-benefit profile for endoscopic evaluation given the absence of??evidence of??overt GI bleed. * Lindsay FREEMAN, Julia Mayer: MODIFY, MODIFY, MODIFY, MODIFY, MODIFY, MODIFY, MODIFY, MODIFY, MODIFY, MODIFY, PERFORM, MODIFY, MODIFY, MODIFY Event Display: Consultation Note Authored Date: Patient: ??ANT VARMA ? Age:??67 Years?Sex:??Male?:??1955?? Reason for Consultation ?Recurrent septic arthritis of R shoulder History of Present Illness Date: 06/02/2023 Infectious Diseases Attending: Dr. Bourgeois Requesting Attending/Provider: Dr. Clifton Garnica Source of Information: CIS, patient? The patient is a 67 year-old man with a past medical history of COPD on home oxygen,??CAD s/p stenting, active tobacco use, PVD, prior flail chest status post surgical rib fixation, and opiate and benzo dependency with a previously broken narcotic contract.?? Of note, had numerous presentations dueto pain, COPD, and other issues (reportedly >60 times in the past [place] at [place] [facility] [place] [facility], with2 MRNs). He was previously admitted from 07/17 - 08/13/22 with MRSA bacteremia with DIONI without endocarditis. He had an MRI of the right shoulder on 08/27 which was very limited that revealed possible synovitis and a rim-enhancing collection in the deltoid, possibly communicating with the joint with other degenerative changes.?? His right shoulder was aspirated by Ortho on 07/31 while already receiving antibiotics which had turbid appearing fluid with 57,000 WBCs with a neutrophilic predominance, though no organisms on gram stain and cultures were negative. 16 S was not completed although unclear why. He was treated with 6 weeks of vancomycin until 09/07. He was admitted again 09/19-10/02/22?? His shoulder was aspirated by orthopedic surgery (Dr. Nayak) on 09/20 with removal of 20 cc of cloudyyellow fluid.?? Fluid analysis had 83,960 WBCs of which 94% were neutrophils without any crystals and ultimately grew MRSA. He was then taken to the OR on 09/20 for open arthrotomy with incision and drainage of the right shoulder. He was discharged home with plan for 6 weeks of vancomycin from OR date of 09/20-10/31 and then was lost to follow up. He was most recently admitted 01/09-01/21/23 for recurrent right shoulder septic arthritis and osteomyelitis.?? He underwent a repeat arthrotomy on 01/11/[address] Mckeon. Operative cultures were negative and Acinetobacter junii was found on 16 S. He was treated with 6 weeks of vancomycin and meropenem. He was admitted to [facility] 01/23-01/27 for COPD exacerbation vs opioid overdose with negative blood cultures at the time. ?? He was admitted to [facility] in March with R shoulder infection. He was seen by [facility] ID 03/30.?? CT of theright shoulder without contrast revealed periarthritis and a 8 x 3 cm complex cystic mass in the subscapularis bursa as well as a small right shoulder joint effusion.?? On 03/28, he underwent ultrasound-guided right shoulder aspiration with yellow-brown viscous fluid sent for culture growing a MRSA with new susceptibility patterns. On 03/29 he was taken to the OR with Dr. Hidalgo for I&D withmurky fluid evacuated without gross purulence (cultures grew out MRSA).?? On 04/02, his WBC count wasuptrending and he had continued drainage from his right shoulder for which he was taken to the OR again with Dr. Martínez where copious amounts of purulent material was evacuated and sent for culture growing MRSA. CRP 2.3. After reviewing multiple packets of faxed records from [facility] unclear total duration of previous daptomycin. Per external med rec and initial [facility] consult note it appears that the patient received about 4 weeks of daptomycin followed by doxycycline prescribed on 04/28. Last seen by [facility] [place] 05/[address] of R shoulder revealed glenohumeral erosions without effusionor fluid collection thought to be chronic changes. He received about 3 days of daptomycin and was discharged on doxycycline as previous planned by [facility] for prolonged course/suppression and would also cover any residual osteo/acute infection if there may have been some mild soft tissue findings with initial leukocytosis with plan to follow up with Dr. Gross with [facility].??It appears that he was continued on his suppressive doxycycline with last dose 05/21.?? He had further admissions 05/22-05/25 and 05/26-05/27 for COPD exacerbations where it appears that his doxycycline was not continued. ?? He presented to the ER 05/29 with shortness of breath, afebrile, leukocytosis of 18.6 thought to be in the setting of steroid use, discharged home after improvement following 2 nebulizer treatments.?? He presented to the ER again on 05/30 with new weakness, green sputum, and an episode of black tarry stools with diffuse abdominal pain.?? Initial vitals???temp 98.2, HR 111, RR 20, BP 97/69 and later hypotensive, O2 94% room air.?? WBC count 17.4 with 83% neutrophils, creatinine 0.7, COVID-negative, UA with 3 WBCs, blood cultures with NGTD.?? An x-ray of his right shoulder was completed revealing glenohumeral erosions which were also noted on recent CT from 05/03 without acute osseous findings.?? There was some drainage from a wound on the right shoulder which was cultured growing out MRSA.?? An MRI is ordered with plan to reconsult Ortho if positive. ?? Recent Antimicrobials: Azithromycin 06/01 Piperacillin/tazobactam 05/31 to present Vancomycin 05/30 to present ?? Medications: Reviewed Antimicrobial Allergies: Keflex- rash Family History:??No relevant history of infectious issues in first degree relatives.? Social History and Infectious Diseases Exposure History: He continues to smoke about??8 to 10 cigarettes/day. ??He denies alcohol??or illicit drug use. ??No recent travel.?? He has been residing mostly in??rehabs although is currently home??with assistance from his family and home care MWF. Review of Systems He endorses continued??right shoulder pain.??He denies fever, rigors, headache, nausea, vomiting, diarrhea, dysuria, arthralgias, or rash. ?? Physical Exam Vitals & Measurements T:??97.3?F?? TMIN:??97.3?F?? TMAX:??98.4?F?? HR:??77??(Peripheral)?? RR:??16?? BP:??158/84?? SpO2:??100%?? GENERAL:Alert, in no acute distress.?? HEENT: Anicteric, no subconjunctival petechiae. Moist oral mucosa without lesions or thrush. CARDIOVASCULAR:??Regular rate and rhythm. Not able to appreciate any murmurs, rubs, or gallops. No peripheral edema. No peripheral stigmata of endocarditis.?? RESPIRATORY: Coarse lung sounds throughout.?? On O2 via nasal cannula. GASTROINTESTINAL: Non-distended, normoactive bowel sounds, non-tender. GENITOURINARY:??No costovertebral angle or suprapubic tenderness.?? MUSCULOSKELETAL: No gross deformity. R shoulder??without warmth or??gross swelling.??Pictured below- wound vac is now off with wound with fibrinous base and scant ?serous drainage on bandage. SKIN: ??No diffuse rash present. NEUROLOGICAL/PSYCH:??A&Ox3, grossly intact.?? LINES:??PIV without erythema or pain.? Micro: Superficial wound swab R shoulder 05/30/23: MRSA Blood cultures 05/30/23: NGTD ??? Blood cultures 04/20/23 x2: Negative ??? [facility] tissue culture 04/02/23: MRSA susceptible to trimethoprim/sulfamethoxazole, linezolid, tetracycline, vancomycin ??? [facility] blood cultures x2 04/01/23: Negative ??? [facility] OR deep wound culture 03/29/23: MRSA susceptible to trimethoprim/sulfamethoxazole, linezolid, tetracycline, vancomycin ??? [facility] right shoulder aspirate 03/28/23: MRSA susceptible to trimethoprim/sulfamethoxazole, linezolid, tetracycline, vancomycin ?Right shoulder aspirate 01/11/23: Negative; 16S: Acinetobacter junii ?Blood cultures 01/08/23: Negative?Joint fluid 09/20/22: MRSA ?Blood cultures 09/19/22: Negative ?Aspiration of deltoid collection on MRI 08/03/22: Negative?Blood cultures 08/07/22 x2: Negative?Right shoulder aspirate 07/31/22: No organisms on gram stain, culture negative ?Blood cultures 07/28/22 x 2: Negative?Blood cultures 07/26/22 x 2: MRSA ?Blood culture 07/23/22 x1: Negative?Blood cultures 07/21/22 x 2: MRSA Assessment/Plan The patient is a 67-year-old male with a past medical history of COPD on home O2, CAD s/p stenting,active tobacco use, PVD, with an extensive amount of admissions in the last year, previously followed by ID for right [place] shoulder septic arthritis since 06/2022 treated with two 6-week courses of vancomycin for MRSA and recently another 6-week course of IV vancomycin and meropenem for Acinetobacter junii, with another course of 4 weeks of daptomycin with plan for doxycycline tail/suppression 03/29-04/28 for MRSA by [facility] ID Dr. Gross. He was admitted again 05/30 with COPD exacerbation and concern for recurrent right shoulder septic arthritis after it appears he has been off of his suppressive doxycycline for about 2 weeks.?? His wound VAC has since been removed within the last few weeks andit appears that he continues with some scant drainage ?serous noted on bandage.?? Very scant erythema surrounds??the??wound with fibrinous base, no warmth.?? He is without signs of systemic infectionand blood cultures are with NGTD.?? An MRI has already been ordered.?? Can stop piperacillin/tazobactam and continue??vancomycin??as MRSA grew out again??on superficial swab.?? ID is following with you. ? Stop piperacillin/tazobactam ??? Continue vancomycin ?Follow blood cultures ??? Agree with MRI ? [facility]- Division of Infectious Diseases ?? Discussed with Dr. Bourgeois (This note was dictated using the dragon software and any typographical/grammatical errors were notdeliberate. Please contact provider for clarifications.) Problem List/Past Medical History Ongoing Anemia Anxiety CAD - Coronary artery disease Chronic low back pain COPD (chronic obstructive pulmonary disease) COPD exacerbation Deep vein thrombosis (DVT) of left lower extremity Epistaxis GERD (gastroesophageal reflux disease) HTN (hypertension) Hyperlipidemia Hyponatremia Metabolic alkalosis Multiple fractures of ribs [place] (myocardial infarction) X 3 Pulmonary cachexia due to COPD PVD (peripheral vascular disease) Smoking greater than 40 pack years Tobacco dependence Underweight Procedure/Surgical History ???Arthrotomy, glenohumeral joint, including [...] femoral artery endarterectomy (08/13/2015)???multiple lumbar spine surgeries Allergies Toradol??(Morphine allergy, Metaxalone, Naproxen, Cephalexin allergy, [...] valve prolapse: Mother. Lupus: Other. Stroke: Father. Lab Results Test Name Test Result Date/Time WBC 11.3 k/mm3 06/02/2023 00:06 EDT Hgb 7.3 Gm/dL 06/02/2023 00:06 EDT Platelet Count 206 k/mm3 06/02/2023 00:06 EDT Sed Rate 7 mm/hr 06/02/2023 00:06 EDT Sodium 140 mmol/L 06/02/2023 00:06 EDT Potassium 3.7 mmol/L 06/02/2023 00:06 EDT BUN 15 mg/dL 06/02/2023 00:06 EDT Creatinine-Blood 0.5 mg/dL 06/02/2023 00:06 EDT C-Reactive Protein 2.5 mg/dL 06/02/2023 00:06 EDT Diagnostic Results (05/30/2023 15:13 EDT Shoulder Min 2 Views Right) IMPRESSION:??No acute osseous findings. Glenohumeral erosions described on CT from 05/03/2022 were better assessed on that exam. [1] Images R shoulder [1]??Shoulder Min 2 Views Right; Elsa AMAYA, Dariana Perry 05/30/2023 15:13 EDT * Tara Bourgeois MD: PERFORM Event Display: Consultation Note Authored Date: [id number] ??I agree with the HPI, physical exam findings, impression and recommendations as outlined in the fellow's/resident's/PA/RADIAL ROUTER OPERATOR note as they reflect my direct input. Please page the author of the note for any clarifications. Note * Lakeisha Shearer Rn: PERFORM Event Display: Discharge/Transfer Note Hospital Authored Date: [id number] Nursing Discharge Note Entered On: 06/04/2023 15:35 EDT Performed On: 06/04/2023 15:35 EDT by Lakeisha Shearer Rn Nursing Discharge Note 2 Discharge Time : 06/04/2023 15:35 EDT Discharge Level of Care at Discharge : Homehealth/VNA Patient Left Unit Via : Ambulance Patient Accompanied Off Unit with : Ambulance/Chair Van Personnel Handover Given to Transport Personnel : Yes DC Instructions Provided & Signed by Pt : Yes Patient Understands D/C Instructions : Yes Patient Instructions Discharge Signed : Yes Did Pt have Specialty Bed or Wound Vac : No Lakeisha Shearer Rn - 06/04/2023 15:35 EDT * Nahun AMAYA, Clifton Rosado: MODIFY, PERFORM Event Display: Discharge/Transfer Note Hospital Authored Date: [id number] Patient: ??ANT VARMA ? Age:??67 Years?Sex:??Male?:??1955?? Patient Information Discharge Location: [facility] Primary Care Physician: Jorge Garcia III, MD Admit Date/Time: 05/30/23 19:34 Discharge Disposition Discharge Disposition: Home with Home Health Discharge Diagnosis Concern for sepsis Chronic Rt shoulder septic arthritis Acute COPD exacerbation (J44.1) ? Secondary discharge diagnoses Sepsis (A41.9) Anxiety CAD - Coronary artery disease COPD [...] 160mcg/4.5mcg Inhaler)?2?puff(s)?Inhalation?2 times a day Collagenase Topical (collagenase topical 250 u/gm ointment)?See Instructions?Use over right shoulder wound daily Dicyclomine (dicyclomine 10 mg oral capsule)?1?capsule?10?Milligram?By Mouth?4 times a day Doxycycline (doxycycline monohydrate 100 mg oral tablet)?1?tab(s)?100?Milligram?By Mouth?Every 12 hours?for 30?Days?continue suppressive Doxycyline therapy, f/u with ID/ Duloxetine (duloxetine 60 mg oral enteric coated capsule)?1?capsule?60?Milligram?By Mouth?2 times a day Ferrous Sulfate (ferrous sulfate 325 mg oral enteric coated tablet)?325?Milligram?1?tablet?By Mouth?Daily Gabapentin (gabapentin 300 mg oral capsule)?600?Milligram?2?capsule?By Mouth?3 times a day Guaifenesin/Dextromethorphan (Robitussin DM Liquid)?5?Milliliter?By Mouth?Every 6 hours?as needed?Cough Hydromorphone (HYDROmorphone 4 mg oral tablet)?1?tab(s)?4?Milligram?By Mouth?Every 4 hours?as needed?Pain , Severe HydrOXYzine (hydrOXYzine hydrochloride 10 mg oral tablet)?1?tab(s)?10?Milligram?By [...] to give the dose of NARCAN Nasal [place]. Remove t... Pantoprazole (pantoprazole 40 mg oral delayed release tablet)?1?tab(s)?40?Milligram?By Mouth?Daily Pantoprazole (Protonix 40 mg oral delayed release tablet)?1?tab(s)?40?Milligram?By Mouth?Daily PredniSONE (predniSONE 5 mg oral tablet)?3?tab(s)?15?Milligram?By Mouth?Daily?restart after completing taper of prednisone 30mg daily for 3 days, then prednisone 20mg daily for 3days, then restart prednisone 15mg dailyStart prednisone 15mg daily from 06/11/23 with food or milk PredniSONE (predniSONE 10 mg oral tablet)?See Instructions?3 tabs daily for 3 days, then 2 tabs daily for 3 days, then continue prednisone 15mg by mouth daily maintenance as previously prescribed by your recovery coach roflumilast (roflumilast 500 mcg oral tablet)?1?tab(s)?500?Microgram?By Mouth?Daily Sodium Chloride Nasal (sodium chloride 0.65% nasal spray)?1?spray(s)?Nares, Both?5 times a day?dryness Sodium Chloride Nasal ([place] Saline 0.65% nasal gel)?1?spray(s)?Nares, Both?4 times a day Thiamine (Vitamin B1 100 mg oral tablet)?100?Milligram?1?tablet?By Mouth?Daily umeclidinium (Incruse Ellipta 62.5 mcg/inh inhalation powder)?1?puff(s)?Inhalation?Every 24 hours ? Future Appointments Tuesday 9:00 AM EDT ?? With: Stevenson Plascencia DO Where: [facility] [place] [address]- Status: Pending Hospital Course ??67 year old male with history of severe COPD on 3-4L NC at baseline with recurrent admissions forexacerbations, DVT of left lower extremity on Eliquis, chronic normocytic anemia,hx. of multiple rib fractures and vertebral compression fractures on chronic opioids admitted for hypotension and leuko cytosis concerning for sepsis from right humeral head wound, shortness of breath concerning for COPD exacerbation and 1 episode of melanotic stools. ?? Hypotension, resolved Concern for sepsis H/o Rt shoulder septic arthritis , with Rt shoulder??wound ??-?- has been treated in the past for MRSA infection / septic arthritis of Rt shoulder, and was mostrecently on suppressive Doxycycline and septic arthritis ??-?- shoulder XR without signs of osteomyelitis??and -??superficial culture from wound drainage??grew MRSA ??Wound gram stain with no organisms observed. Pending cultures. ??- no other??sources of infection- CXR and U/A negative ?-??underwent ??MRI of Rt shoulder??with and without??IV contrast with premedication- ) Limited markedly limited due to motion artifact, chronic erosion of humeral head and glenoid with full-thickness cartilage loss involving entirety of glenohumeral joint, may reflect sequelae of priorseptic arthritis, abnormal signal within proximal humeral metaphysis is indeterminate and could reflect red marrow versus osteomyelitis, difficult to assess on images acquired, tagged WBC scan could be helpful in making this determination, no significant joint effusion to suggest septic arthritis, as read by the radiologist ? I consulted/spoke to orthopedics previously and again after MRI, Dr. Nayak reviewed MRI, and no orthopedic intervention or other new orthopedic Recs.?? They deferred to ID regarding antibiotics ?? - also consulted ID-Zosyn was stopped and continue vancomycin for now - he had a wound vac which was subsequently discontinued 04/2023 - he has previous shoulder surgery with ??Mauricio at [facility], as per ortho - with improved hypotension, transferred out of [facility]care 05/31/23. BP stable since then. . -restarted metoprolol and ISDN ?was on IV ??vancomycin??while in hospital, as recommended by ID here, will switch to p.o. doxycycline on discharge??and continue doxycycline for suppressive therapy until follow-up with his??ID physician,??doctor??Gemtesa??at [facility] ?? Wound care to wound on right shoulder- as rec'd by wound care Cleanse with Vashe. Pat dry. Apply z-guard to periwound.?? Apply morena thick layer of Santyl to wound bed. Cover with Mepilex foam dressing. Change daily and PRN for soilage/soaking. ?? *If wound is draining through Mepilex foam dressing; Please use Mextra Pad with DSD* ?? Abdominal Pain ??Initial concern for Melena ??- Patient complaining of acute worsening of chronic abdominal pain ??-??no clear etiology identified for abd.??pain,??which he ahs had chronically ??- Patient recently had CT scan of abdomen <1 week ago showing stercoral colitis ??-??patient reported black stool for a few days- consulted GI? - monitor H&H , continue PPI - H&H drifting down to 7.8 - held apixaban and ASA and consulted GI-??GI do not recommend EGD/ no convincing evidence of acuteGI bleed, and are okay with resumption of apixaban and?? ASA. His abdominal pain- GI believes likely from IBS . ???Apixaban restarted,??aspirin is on hold. ??- Continue pantoprazole, he??has??also been recently started on chronic steroids, prednisone 15mgdaily ?-??- iron panel showed FREDERICK ,?? giving oral iron on discharge ? COPD exacerbation Chronic hypoxic and hypercapnic respiratory failure ??- CXR without signs of pneumonia ??- Was given azithromycin in the ED ?- Changed Incruse ellipta and Symbicort to formulary inhalers (Spiriva and Breo-ellipta respectively), continue home roflumilast ??- Given no clinical evidence for pneumonia will hold off on CTX?- Incentive spirometer ?? - giving prednisone , and discharged on taper, and then continue Prednisone 15mg daily (recently started on chronic prednisone by?? Dr. Canseco, his recovery coach, for frequent exacerbations) - he is not on chronic thrice weekly Azithromycin ? -BIPAP DURING NAPS AND HS - have discussed with patient and nursing nursing. He has??had significant hypercarbic resp. failure in the past, and?? high risk of worsening hypercarbia. I confirmed with??patient that he has Bipap machine at home. ?- Continue chronic O2- at 3-4L NC ?h/o CAD ?? -continue metoprolol, ASA on hold given anemia, and concern for melena .? Given that he is on apixaban and will be on prednisone chronically for COPD,?? will hold off on restarting ASA- given signficant risks, continue apixaban - can consider restarting antiplatelet outpatient ??if Hb is stable, and no overt UGIB with prednisone ? severe e protein malnutrition in the setting of severe COPD ??- Nutrition??consulted ??- supplements - MVI ? Chronic pain ??-??h/o ??multiple vertebral fractures, rib fractures that are constant sources of pain for him ??- Currently on duloxetine, gabapentin?-continue??home Dilaudid,?- Scheduled Tylenol, gabapentin and duloxetine - avoid IV opiates ?? h ?? Chronic stable medical conditions: ??Hypertension:?restasrt metoprolol, holding??isosorbide dinitrate as above. ?Anxiety: Continue duloxetine and hydroxyzine prn ? Quality Measures ??Diet: Regular ??DVT Prophylaxis:??restarted apixaban ??Code Status: Full Code?. ? Objective Vital Signs?? Temperature: 98.7 DegF (06/04/23 04:47:00) Temperature Route: Oral (06/04/23 04:47:00) Pulse Rate: 66 bpm (06/04/23 08:28:00) Respiratory Rate: 16 br/min (06/04/23 09:32:00) Systolic Blood Pressure: 125 mm Hg (06/04/23 08:28:00) Diastolic Blood Pressure: 81 mm Hg (06/04/23 08:28:00) Blood pressure sites: Arm, right (06/04/23 04:47:00) Mean Arterial Pressure: 88 mm Hg (06/04/23 04:47:00) Pulse Pressure: 63 mm Hg (06/04/23 04:47:00) Oxygen Saturation: 99 % (06/04/23 04:47:00) Liters per Minute: 3 L/min (06/04/23 04:47:00) Mode of Delivery (Oxygen): Nasal cannula (06/04/23 04:47:00) Early Warning Score: 0 (06/04/23 09:33:24) ? . 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 Rt shoulder movements??including flexion, extension, abduction and adduction ??severely limited due to pain and chronic rotator cuff degeneration.?? Rt shoulder anteriorly narrow skin slit defect, with serous drainage, no surrounding erythema or warmth. Extremities: No edema, peripheral pulses palpable. Pending Results Add On Lab Order ordered on 05/30/2023 Add On Lab Order ordered on 05/30/2023 Add On Lab Order ordered on 05/31/2023 Blood Culture ordered on 05/30/2023 Blood Culture #2 ordered on 05/30/2023 Creatinine ordered on 06/03/2023 Follow-Up Appointments Added Follow Up ?Time Frame ?Comments César Martínez?1 to 2 weeks (Please follow up with Infectious disease, Gary Ireland at [facility] in 1 week. Please call [phone] for appointment Roxana Canseco?1 to 2 weeks Jorge Garcia?1 week Post Discharge Care Wound Care: Rt shoulder- Cleanse with Vashe. Pat dry. Apply z-guard to periwound. ??Apply morena thick layer of Santyl to wound bed. Cover with Mepilex foam dressing. Change daily and PRN for soilage/soaking. If wound is draining with Mepilex, use Mextra Pad with DSD Code Status: ?? Full Resuscitation Discharge ?Will need ambulance transportcall to set up VNA for dressing changes , PT and OT, ??06/04/23 12:09:00 EDT ?06/04/23 12:07:00 EDT Discharge Prescriptions ?ePrescribed, ??06/04/23 12:09:00 EDT Home Health Face to Face *Denotes mandatory tapia ?? *I certify that this patient is under my care and that I or an allowed non- physician working with me had a face to face encounter with the patient on this date:??06/04/2023 13:52 ?? *The encounter with the patient was in whole, or in part, for the following medical condition, which is the primary diagnosis(es) for home health care:??COPD exacerbation (J44.1) Sepsis (A41.9) Anxiety CAD - Coronary artery disease COPD (chronic obstructive pulmonary disease) Chronic low back pain Deep vein thrombosis (DVT) of left lower extremity GERD (gastroesophageal reflux disease) HTN (hypertension) History of Alcohol dependency Hyperlipidemia PVD (peripheral vascular disease) Smoking greater than 40 pack years ? *Select the indications for the discipline/s that are being arranged for this patient. Nursing (select all that apply): [_] None [_] Medication management (reconciliation, teaching)?? [_] Chronic disease management?? [X_] Wound care and treatment?? [_] Home safety evaluation [_] Administer SQ/IM/IV medications?? [_] Cath care?? [_] Drain care?? [_] Trach or GT care?? Other _ Occupation Therapy (select all that apply): [_] None [X_] ADL Management [_] Fall prevention training [_] Energy conservation [_] Cognitive training Other _ Physical Therapy (select all that apply): [_] None [X_] Functional mobility training [X_] Home exercise program to strengthen [_] Increase ROM?? [_] Falls prevention training [_] Home maintenance program for chronic disease Other _ Speech Therapy (select all that apply): [_] None [_] Swallow evaluation and training [_] Speech and language training [_] Cognitive training to process, organize, and/or recall information Other _ ? *Homebound due to (select all that apply): [_] Inability to leave home without assistance/supervision [_] Inability to ambulate without assistance [_] Pain [X_] Decreased strength and endurance [_] Unsteady gait [_] Severe SOB and fatigue [_] Impaired transfers [_] Inability to negotiate stairs [_] Limited weight bearing [_] Mental status change? *Physician Signature: _Clifton Garnica MD ?? *By signing this, I certify that I have personally evaluated the patient and agree with the findings and recommendations as documented above. ? F Results Discharge Labs BLOOD COUNT & DIFF WBC 12.4 k/mm3 (High)?? 06/03/2023 00:27 RBC 2.65 m/mm3 (Low)?? 06/03/2023 00:27 Hgb 7.3 Gm/dL (Low)?? 06/03/2023 00:27 Hct 24.2 % (Low)?? 06/03/2023 00:27 MCV 91.3 femtoliters ()?? 06/03/2023 00:27 MCH 27.5 pg ()?? 06/03/2023 00:27 MCHC 30.2 g/dL (Low)?? 06/03/2023 00:27 Platelet Count 221 k/mm3 ()?? 06/03/2023 00:27 RDW-SD 57.3 femtoliters (High)?? 06/03/2023 00:27 MPV 9.6 femtoliters ()?? 06/03/2023 00:27 Nucleated RBC (Automated) 0.0 #/100 WBC'S ()?? 06/03/2023 00:27 Abs. NRBC 0.0 k/mm3 ()?? 06/03/2023 00:27 Abs. Neut 9.7 k/mm3 (High)?? 06/02/2023 00:06 Abs. Lymph 0.5 k/mm3 (Low)?? 06/02/2023 00:06 Abs. Greene 0.9 k/mm3 ()?? 06/02/2023 00:06 Abs. Eo 0.0 k/mm3 ()?? 06/02/2023 00:06 Abs. Baso 0.0 k/mm3 ()?? 06/02/2023 00:06 Neut % 85.6 % (High)?? 06/02/2023 00:06 Lymph % 4.8 % (Low)?? 06/02/2023 00:06 Greene % 7.9 % ()?? 06/02/2023 00:06 Eos % 0.1 % ()?? 06/02/2023 00:06 Baso % 0.1 % ()?? 06/02/2023 00:06 Imm Gran 1.5 % ()?? 06/02/2023 00:06 Abs. Imm Gran 0.2 k/mm3 ()?? 06/02/2023 00:06 ?? CARDIAC Nt-Probnp 503 pg/mL (High)?? 05/30/2023 14:30 High Sensitivity Troponin (HSTnT) 31 ng/L (High)?? 05/30/2023 16:15 ?? CHEM GENERAL Sodium 139 mmol/L ()?? 06/03/2023 00:27 Potassium 3.7 mmol/L ()?? 06/03/2023 00:27 Chloride 97 mmol/L (Low)?? 06/03/2023 00:27 Bicarbonate Level 32 mmol/L (High)?? 06/03/2023 00:27 Anion Gap 10 ()?? 06/03/2023 00:27 Glucose Level 204 mg/dL (High)?? 06/03/2023 00:27 BUN 13 mg/dL ()?? 06/03/2023 00:27 Creatinine-Blood 0.5 mg/dL (Low)?? 06/04/2023 00:44 Estimated GFR Creatinine 111 ML/MIN/1.73 M2 ()?? 06/04/2023 00:44 Calcium 8.2 mg/dL (Low)?? 06/03/2023 00:27 Phosphorus 3.4 mg/dL ()?? 05/31/2023 04:36 Magnesium 1.7 mg/dL ()?? 05/31/2023 04:36 Protein, Total 6.3 Gm/dL ()?? 05/30/2023 14:30 Albumin 4.1 Gm/dL ()?? 05/30/2023 14:30 AG Ratio 1.9 ()?? 05/30/2023 14:30 Alkaline Phosphatase 98 units/L ()?? 05/30/2023 14:30 Lipase 43 units/L ()?? 05/30/2023 14:30 AST (SGOT) 16 units/L ()?? 05/30/2023 14:30 ALT (SGPT) 20 units/L ()?? 05/30/2023 14:30 Bilirubin, Total 0.5 mg/dL ()?? 05/30/2023 14:30 Vitamin B12 Level 738 pg/mL ()?? 06/02/2023 00:06 Folic Acid Level 5.6 ng/mL ()?? 06/02/2023 00:06 Lactate 1.6 mmol/L ()?? 05/30/2023 14:30 Iron Level 26 mcg/dL (Low)?? 06/02/2023 00:06 Iron Binding Capacity, Unsaturated 175 mcg/dL ()?? 06/02/2023 00:06 Iron Binding Capacity, Estimated Total 201 mcg/dL ()?? 06/02/2023 00:06 % Iron Saturation 13 % (Low)?? 06/02/2023 00:06 Ferritin Level 71 ng/mL ()?? 06/02/2023 00:06 C-Reactive Protein 2.5 mg/dL (High)?? 06/02/2023 00:06 ? ENDOCRINE/TUMOR MARKER Cortisol Level 11.8 ??g/dL ()?? 05/31/2023 09:46 ? HEME OTHER Sed Rate 7 mm/hr ()?? 06/02/2023 00:06 Hold Blue Top SPECIMEN DISCARDED AFTER 4 HOURS. ()?? 05/30/2023 14:30 ?? IMMUNOLOGY GENERAL Transferrin 163 mg/dL (Low)?? 06/02/2023 00:06 ? MISC. CHEMISTRY Hold Gel Top SPECIMEN DISCARDED AFTER 1 WEEK ()?? 06/01/2023 14:52 ? TOXICOLOGY/TDM Vancomycin Level, Trough 5.5 mg/L (Low)?? 06/03/2023 21:45 ? UA/URINALYSIS Appear/Color, Urine YELLOW ()?? 05/30/2023 15:40 Specific [place], Urine 1.021 ()?? 05/30/2023 15:40 pH, Urine 6.5 ()?? 05/30/2023 15:40 Albumin, Urine 1+ (Abnormal)?? 05/30/2023 15:40 Glucose, Urine NEGATIVE ()?? 05/30/2023 15:40 Ketones, Urine NEGATIVE ()?? 05/30/2023 15:40 Bilirubin, Urine NEGATIVE ()?? 05/30/2023 15:40 Hemoglobin, Urine NEGATIVE ()?? 05/30/2023 15:40 Nitrite, Urine NEGATIVE ()?? 05/30/2023 15:40 Leukocyte, Urine NEGATIVE ()?? 05/30/2023 15:40 Urobilinogen 2 mg/dL (Abnormal)?? 05/30/2023 15:40 WBC's, Urine 3 /HPF ()?? 05/30/2023 15:40 RBC's, Urine 2 /HPF ()?? 05/30/2023 15:40 Squamous Epith <1 /HPF ()?? 05/30/2023 15:40 Mucus SLIGHT /LPF ()?? 05/30/2023 15:40 Hold Urine Culture Testing available 48 hours from time of collection. ()?? 05/30/2023 15:40 ?? URINE OTHER Est Creatinine Clearance 117.50 mL/min ()?? 06/04/2023 02:26 ? VIROLOGY COVID-19 by RT-PCR NEGATIVE ()?? 05/30/2023 14:10 ? 45_ minutes spent on discharge * Lakeisha Shearer Rn: PERFORM Event Display: Patient Education/Instruction Authored Date: [id number] Inpatient Adult Discharge Instructions [address] [address] Name: ANT VARMA : 1955 Visit: 05/30/2023 19:34:00 Current Date: 06/04/2023 12:43 Account: [id number] Inpatient Adult Discharge Instructions We would like [...] and their families. Surveys are administered by [employer] ?? If further treatment with your primary care physician or another doctor is recommended, it is important for you to keep the appointment. Call your primary care physician or return to the Emergency Department immediately if your condition worsens, fails to improve, or new symptoms develop. If you need to find a doctor, you can call [facility] for a referral at [phone] or toll free at [phone] or log in to [email or web address].. ?? You can view and manage your care through the patient portal or by using a health care lore of your choosing. [employer] is a website that allows you to securely view your medical information including your hospital discharge summary, office visit summaries, medications and follow-up visits. You can also request appointments, renew medications, and request access to your medical information using a health care lore of your choosing, or just ask a question. You can enroll at [email or web address] or register during your next office visit. You have been discharged from [facility], Patient Care Unit: S64. If you have any questions regarding these instructions after you leave, please call us and we will be happy to assist you. [facility] Your Care Team Attending Physician Nahun AMAYA, Clifton Rosado Consulting Providers Bk AMAYA, Tara Discharging Providers Nahun AMAYA, Clifton Rosado Reason for Admission black tarry stools and abd pain wth chest pain, pt grossly pale and ooks ill ? if chrinically ill or acute. Your Diagnosis COPD exacerbation Sepsis Tests Performed Below is a partial list of the tests performed during your hospitalization. You may have had other tests and procedures not included in this list. Please discuss all test results with your provider. B12 Vitamin Level Basic Metabolic Panel BUN C-REACTIVE PROTEIN Calcium Level CBC CBC w/ Differential Comprehensive Metabolic Panel Cortisol Level COVID-19 (Novel Coronavirus), Rapid PCR Creatinine CRP Electrolytes ESR Ferritin Folic Acid Level Glucose Level High??Sensitivity??Troponin T HOLD BLUE TUBE HOLD GEL TUBE Iron + Iron Binding Capacity Lactate Level Lipase Magnesium Level Phosphorus Level ProBNP SEDIMENTATION RATE,AUTOMATED Transferrin Troponin T, High Sensitivity Urinalysis w/hold for Urine Culture Vancomycin Trough MRI Joint Ext Upper W+W/O Contrast Right XR Chest 2 Views Frontal and Lat XR Shoulder Min 2 Views Right Primary Care Provider Jose LEE MD, Jorge Tsang Advance Directive Health Care Proxy on File Yes - Health Care Proxy Yes - MOLST Discharge Vitals Temperature: 98.7 DegF Height: 183 cm Pulse Rate: 66 bpm Weight: 56.4 kg Respiratory Rate: 18 br/min Body Mass Index:??16.84 kg/m2??Low Systolic Blood Pressure: 125 mm Hg Body surface area: 1.69 Diastolic Blood Pressure: 81 mm Hg ?? Oxygen Saturation: 99 % ?? Studies Pending All tests and labs ordered during this hospital stay have been completed unless listed below. Please discuss all pending results with your provider listed above in these instructions. ?? Add On Lab Order Blood Culture Blood Culture #2 Creatinine What to do next Instructions From Your Doctor TAke iron pills- Iron can make your stool black HOld Aspirin f/u with Dr. Gross / [facility] ?? Discharge Orders Wound Care:??Rt shoulder- Cleanse with Vashe. Pat dry. Apply z-guard to periwound. Apply morena thick layer of Santyl to wound bed. Cover with Mepilex foam dressing. Change daily and PRN for soilage/soaking. If wound is draining with Mepilex, use Mextra Pad with DSD Code Status:?? Full Resuscitation Scheduled Follow-Up Appointments Tuesday 9:00 AM EDT ?? With: Stevenson Plascencia DO Where: [facility] [address] [place] [address]- Status: Pending You Need to Schedule the Following Appointments Follow Up with??César Martínez When:??Within 1 to 2 weeks Where: [address] [facility] [place] [address] Business (1) Follow Up with??(Please follow up with Infectious disease, Blanca Irelandahun at [facility] in 1 week. Please call [phone] for appointment Follow Up with??Roxana Canseco When:??Within 1 to 2 weeks Where: [address] [facility] [address] [facility] [place] [place] [address]- Business (1) Follow Up with??Jorge Garcia When:??Within 1 week Where: [address] [place] [address]- Business (1) Discharge Medications ANT VARMA :1955 Visit Date:05/30/2023 Medications: Please continue your medications until treatment is completed or stopped by your provider. Medications not listed below should be discontinued. Discuss any questions related to medications with your provider. What How Much When Instructions Next Dose New Collagenase Topical (collagenase topical 250 u/ gm ointment) See instructions Use over right shoulder wound daily ?? Pickup at [facility]/pharmacy #[id number] 06/05/23 with dressing change New Doxycycline (doxycycline monohydrate 100 mg oral tablet) 1 tab(s) Oral Every 12 hours Duration: 30 Days Refills: 1 continue suppressive Doxycyline therapy, f/ u with ID/ Dr. Perez ?? Pickup at [facility]/pharmacy #[id number] 06/04/23 8pm New Ferrous Sulfate (ferrous sulfate 325 mg oral enteric coated tablet) 1 tab(s) Oral Daily Refills: 1 Pickup at [facility]/pharmacy #[id number] 06/05/23 8am Changed Loperamide (loperamide 2 mg oral capsule) 1 capsule Oral Every 6 hours as needed for for loose stool Pickup at [facility]/pharmacy #[id number] as needed Changed Pantoprazole (pantoprazole 40 mg oral delayed release tablet) 1 tab(s) Oral Daily Changed Pantoprazole (Protonix 40 mg oral delayed release tablet) 1 tab(s) Oral Daily Pickup at [facility]/pharmacy #[id number] 06/05/23 8am Changed PredniSONE (predniSONE 10 mg oral tablet) See instructions 3 tabs daily for 3 days, then 2 tabs daily for 3 days, then continue prednisone 15mg by mouth dailymaintenance as previously prescribed by your recovery coach ?? Pickup at [facility]/pharmacy #[id number] 06/05/23 8am Changed PredniSONE (predniSONE 5 mg oral tablet) 3 tab(s) Oral Daily restart after completing taper of prednisone 30mg daily for 3 days, then prednisone 20mg daily for 3 days, then restart prednisone 15mg daily Start prednisone 15mg daily from with food or milk ?? 06/11/23 Unchanged Acetaminophen (acetaminophen 325 mg oral tablet) 2 tab(s) Oral Every 4 hours as needed for as needed for fever Unchanged Albuterol (albuterol 0.042% inhalation solution) 3 Milliliter Nebulized inhalation Every 4 hours Unchanged Albuterol (albuterol 90 mcg/ inh inhalation powder) 2 puff(s) Inhalation Every 4 hours as needed for as needed Unchanged apixaban (Eliquis 5 mg oral tablet) 1 tab(s) Oral Twice a day Duration: 30 Days Unchanged Atorvastatin (atorvastatin 80 mg oral tablet) 1 tab(s) Oral Daily Unchanged Budesonide-Formoterol (Symbicort 160mcg/ 4.5mcg Inhaler) 2 puff(s) Inhalation Twice a day Unchanged Dicyclomine (dicyclomine 10 mg oral capsule) 1 capsule Oral 4 times a day Unchanged Duloxetine (duloxetine 60 mg oral enteric coated capsule) 1 capsule Oral Twice a day Unchanged Gabapentin (gabapentin 300 mg oral capsule) 2 capsule Oral 3 times a day Unchanged Guaifenesin/ Dextromethorphan (Robitussin DM Liquid) 5 Milliliter Oral Every 6 hours as needed for Cough Unchanged Hydromorphone (HYDROmorphone 4 mg oral tablet) 1 tab(s) Oral Every 4 hours as needed for Pain , Severe Unchanged HydrOXYzine (hydrOXYzine hydrochloride 10 mg oral tablet) 1 tab(s) Oral 3 times a day as needed for Anxiety Unchanged Isosorbide Dinitrate (isosorbide dinitrate 30 mg oral tablet) 1 tab(s) Oral Twice a day Unchanged Melatonin 10 Milligram Oral Daily at Bedtime as needed for as needed for sleep Unchanged Metoprolol (Metoprolol Succinate ER 25 mg oral tablet, extended release) 1 tab(s) Oral Daily Unchanged nalOXONE (Narcan 4 mg/ 0.1 mL nasal spray) See instructions If concern for opioid overdose. Gently insert the tip of the nozzle into one nostril, until your fingers on either side of the nozzle are against the bottom of the person's nose. Press the plunger firmly to give the dose of NARCAN Nasal [place]. Remove the NARCAN Nasal [place] from the nostril after giving the dose. Get emergency medical help right away. ?? Unchanged roflumilast (roflumilast 500 mcg oral tablet) 1 tab(s) Oral Daily Unchanged Sodium Chloride Nasal ([place] Saline 0.65% nasal gel) 1 spray(s) Nares, Both 4 times a day Unchanged Sodium Chloride Nasal (sodium chloride 0.65% nasal spray) 1 spray(s) Nares, Both 5 times a day dryness ?? Unchanged Thiamine (Vitamin B1 100 mg oral tablet) 1 tab(s) Oral Daily Unchanged umeclidinium (Incruse Ellipta 62.5 mcg/ inh inhalation powder) 1 puff(s) Inhalation Every 24 hours Pharmacy Information [facility]/pharmacy #[id number]: [address], [place] [id number] [phone] ?? What How Much When Comments Stop Taking Aspirin (aspirin 81 mg oral capsule) 1 capsule Oral Daily Test Results Below is a partial list of the most recent Laboratory test results done prior to this discharge. You may have had other tests and procedures not included in this list. Please discuss all test resultswith your provider. Est Creatinine Clearance - 117.50 mL/min (06/04/2023) B12 Vitamin Level (06/02/2023) ???Vitamin B12 Level - 738 pg/mL Basic Metabolic Panel (06/01/2023) ???Sodium - 139 mmol/L???Potassium - 4.4 mmol/L???Chloride - 98 mmol/L???Bicarbonate Level - 34 mmol/L???Anion Gap - 7???Glucose Level - 251 mg/dL???BUN - 15 mg/dL???Creatinine-Blood - 0.6 mg/dL???Estimated GFR Creatinine - 107 ML/MIN/1.73 M2???Calcium - 8.5 mg/dL BUN (06/03/2023) ???BUN - 13 mg/dL C-REACTIVE PROTEIN (05/31/2023) ???C-Reactive Protein - 4.0 mg/dL Calcium Level (06/03/2023) ???Calcium - 8.2 mg/dL CBC (06/03/2023) ???WBC - 12.4 k/mm3???RBC - 2.65 m/mm3???Hgb - 7.3 Gm/dL???Hct - 24.2 %???MCV - 91.3 femtoliters???MCH - 27.5 pg???MCHC - 30.2 g/dL???Platelet Count - 221 k/mm3???RDW-SD - 57.3 femtoliters???MPV - 9.6 femtoliters???Nucleated RBC (Automated) - 0.0 #/100 WBC'S???Abs. NRBC - 0.0 k/mm3 CBC w/ Differential (06/02/2023) ???WBC - 11.3 k/mm3???RBC - 2.69 m/mm3???Hgb - 7.3 Gm/dL???Hct - 23.8 %???MCV - 88.5 femtoliters???MCH - 27.1 pg???MCHC - 30.7 g/dL???Platelet Count - 206 k/mm3???RDW-SD - 54.7 femtoliters???MPV - 9.0 femtoliters???Nucleated RBC (Automated) - 0.0 #/100 WBC'S???Abs. NRBC - 0.0 k/mm3???Abs. Neut - 9.7 k/mm3???Abs. Lymph - 0.5 k/mm3???Abs. [place] - 0.9 k/mm3???Abs. Eo - 0.0 k/mm3???Abs. Baso - 0.0 k/mm3???Neut % - 85.6 %???Lymph % - 4.8 %???[place] % - 7.9 %???Eos % - 0.1 %???Baso % - 0.1 %???Imm Gran - 1.5 %???Abs. Imm Gran - 0.2 k/mm3 Comprehensive Metabolic Panel (05/30/2023) ???Sodium - 146 mmol/L???Potassium - 3.9 mmol/L???Chloride - 98 mmol/L???Bicarbonate Level - 41 mmol/L???Anion Gap - 7???Glucose Level - 84 mg/dL???BUN - 16 mg/dL???Creatinine-Blood - 0.7 mg/dL???Estimated GFR Creatinine - 104 ML/MIN/1.73 M2???Calcium - 9.7 mg/dL???Protein, Total - 6.3 Gm/dL???Album in - 4.1 Gm/dL???AG Ratio - 1.9???Alkaline Phosphatase - 98 units/L???AST (SGOT) - 16 units/L???ALT(SGPT) - 20 units/L???Bilirubin, Total - 0.5 mg/dL Cortisol Level (05/31/2023) ???Cortisol Level - 11.8 ??g/dL COVID-19 (Novel Coronavirus), Rapid PCR (05/30/2023) ???COVID-19 by RT-PCR - NEGATIVE Creatinine (06/04/2023) ???Creatinine-Blood - 0.5 mg/dL???Estimated GFR Creatinine - 111 ML/MIN/1.73 M2 CRP (06/02/2023) ???C-Reactive Protein - 2.5 mg/dL Electrolytes (06/03/2023) ???Sodium - 139 mmol/L???Potassium - 3.7 mmol/L???Chloride - 97 mmol/L???Bicarbonate Level - 32 mmol/L???Anion Gap - 10 ESR (06/02/2023) ???Sed Rate - 7 mm/hr Ferritin (06/02/2023) ???Ferritin Level - 71 ng/mL Folic Acid Level (06/02/2023) ???Folic Acid Level - 5.6 ng/mL Glucose Level (06/03/2023) ???Glucose Level - 204 mg/dL High??Sensitivity??Troponin T (05/30/2023) ???High Sensitivity Troponin (HSTnT) - 41 ng/L HOLD BLUE TUBE (05/30/2023) ???Hold Blue Top - SPECIMEN DISCARDED AFTER 4 HOURS. HOLD GEL TUBE (06/01/2023) ???Hold Gel Top - SPECIMEN DISCARDED AFTER 1 WEEK Iron + Iron Binding Capacity (06/02/2023) ???Iron Level - 26 mcg/dL???Iron Binding Capacity, Unsaturated - 175 mcg/dL???Iron Binding Capacity, Estimated Total - 201 mcg/dL???% Iron Saturation - 13 % Lactate Level (05/30/2023) ???Lactate - 1.6 mmol/L Lipase (05/30/2023) ???Lipase - 43 units/L Magnesium Level (05/31/2023) ???Magnesium - 1.7 mg/dL Phosphorus Level (05/31/2023) ???Phosphorus - 3.4 mg/dL ProBNP (05/30/2023) ???Nt-Probnp - 503 pg/mL SEDIMENTATION RATE,AUTOMATED (05/31/2023) ???Sed Rate - 9 mm/hr Transferrin (06/02/2023) ???Transferrin - 163 mg/dL Troponin T, High Sensitivity (05/30/2023) ???High Sensitivity Troponin (HSTnT) - 31 ng/L Urinalysis w/hold for Urine Culture (05/30/2023) ???Appear/Color, Urine - YELLOW???Specific [place], Urine - 1.021???pH, Urine - 6.5???Albumin, Urine - 1+???Glucose, Urine - NEGATIVE???Ketones, Urine - NEGATIVE???Bilirubin, Urine - NEGATIVE???Hemoglobin, Urine - NEGATIVE???Nitrite, Urine - NEGATIVE???Leukocyte, Urine - NEGATIVE???Urobilinogen - 2mg/dL? ?WBC's, Urine - 3 /HPF? ?RBC's, Urine - 2 /HPF? ?Squamous Epith - <1 /HPF? ?Mucus - SLIGHT???Hold Urine Culture - Testing available 48 hours from time of collection. Vancomycin Trough (06/03/2023) ???Vancomycin Level, Trough - 5.5 mg/L Allergies (NKA means No Known Allergies) Toradol??(Morphine [...] Metabolic alkalosis?? Multiple fractures of ribs?? Old [place] (myocardial infarction) X 3?? old Rib fractures, right 3-8?? Pulmonary cachexia due to COPD?? PVD (peripheral vascular disease)?? Smoking greater than 40 pack years?? Tobacco dependence?? Underweight?? Education Materials Below is the list of Educational Leaflet Providered with your Discharge Instructions. Valuables and Belongings I fully understand and agree that [facility] accepts no responsibility for all my personal [...] patient Date for Pt to Sign Valuables/Belongings: 06/01/23 00:34:00 ?? Other Discharge Information ?? Wound Assessment?? Wound Assessment?? Wound Location I: Shoulder, right Wound Type I: Arterial Wound I, Present on Admission: Yes Wound Location II: Shoulder, right ? Pulmonary Rehab Status?? Pulmonary Rehab Discharge [...] strongly encouraged to quit. Please call [facility] [employer] at [phone] or [phone] ([phone]) or log in to [email or web address] for referrals to smoking cessation programs. ?? 8 Suicide & Crisis Lifeline is available 20/06 if you or someone you know needs to find a reason to keep living. By calling 971 you'll be connected to a skilled, trained counselor at a crisis center in your area. INPATIENT DISCHARGE INSTRUCTIONS SIGNATURE ANT ROBLERO Location:[facility] Registration Date and Time:05/30/2023 19:34 EDT Primary Care Physician: Jose LEE MD, Jorge Tsang, Attending Physician: Nahun AMAYA, Clifton Rosado, ANT MCCONNELL, have received the above patient education materials/instructions and have verbalized understanding. If ambulance or transport services are being used I further acknowledge being given a choice of service. ?? If you need to contact me, please call me at this number: . Patient/Retail Maintenance Technician Name: Patient/Retail Maintenance Technician Signature: Relationship to Patient: Witness Name/Signature: Date: * Clifton Garnica MD: SIGN, PERFORM, SIGN, VERIFY Event Display: Patient Education Handout Authored Date: [id number] Patient Care team information Care Team Personnel Name: Glo Camarena RN Position: S RN Member Role: Primary Care Nurse Name: Fatimah Bennett RN Position: [facility] RN Member Role: Primary Care Nurse Name: Mariely Hardy RN Position: [facility] RN Member Role: Primary Care Nurse Name: Marleen Uriarte RN Position: [facility] RN Member Role: Primary Care Nurse Name: Sydney Zelaya Position: [facility] SN Support Member Role: Lifetime Consulting Physician Name: Judd Barahona RN Position: [facility] RN Member Role: Primary Care Nurse Name: Mag Harry RN Position: [facility] RN Member Role: Primary Care Nurse Name: An Blount RN Position: [facility] RN Supv Member Role: Primary Care Nurse Name: Rebecca Whitley RN Position: [facility] RN Member Role: Primary Care Nurse Name: Marianna Ng RN Position: [facility] RN Member Role: Primary Care Nurse Name: Avani Odell RN Position: [facility] RN Member Role: Primary Care Nurse Name: Lisbet Hickman RN Position: [facility] RN Member Role: Primary Care Nurse Name: Ruben Bello RN Position: [facility] RN Member Role: Primary Care Nurse Name: Araceli Simon RN Position: [facility] RN Member Role: Primary Care Nurse Name: Judi Streeter RN Position: [facility] RN Member Role: Primary Care Nurse Name: Moni Dugan RN Position: [facility] RN Member Role: Primary Care Nurse Name: Jorge Garcia III, MD Position: Reference Physician Member Role: PCP Address: Address: [address] [place] [address] Name: Misty Nguyen RN Position: [facility] RN Member Role: Primary Care Nurse Name: Hetal Archer LPN Position: [facility] RN Member Role: Primary Care Nurse Name: Joyce Cobb Position: [facility] RN Member Role: Primary Care Nurse Name: Sarwat Aj RN Position: [facility] RN Member Role: Primary Care Nurse Name: César Patel RN Position: [facility] RN Member Role: Primary Care Nurse Name: Cassi Batista RN Position: [facility] RN Member Role: Primary Care Nurse Name: Daija Huitron RN Position: [facility] RN Member Role: Primary Care Nurse Name: Ellis Mayfiled RN Position: [facility] RN Supv Member Role: Primary Care Nurse Name: Ayah Robison RN Position: [facility] RN Member Role: Primary Care Nurse Name: Radha Moreno RN Position: [facility] RN Member Role: Primary Care Nurse Name: Jina Smalls RN Position: [facility] RN Member Role: Primary Care Nurse Name: Laura Clements RN Position: [facility] RN Member Role: Primary Care Nurse Name: Colette Syed RN Position: [facility] RN Member Role: Primary Care Nurse Name: Muriel Daley RN Position: [facility] RN Neil Member Role: Primary Care Nurse Name: Judith Rojas LPN Position: [facility] RN Member Role: Primary Care Nurse Name: Sydney Raza RN Position: [facility] RN Member Role: Primary Care Nurse Name: Rachna Renteria RN Position: [facility] RN Member Role: Primary Care Nurse Name: Zohreh Pink RN Position: [facility] RN Member Role: Primary Care Nurse Name: Sophie Berrios RN Position: [facility] RN Member Role: Primary Care Nurse Name: Grisel Mcgowan RN Position: [facility] RN Member Role: Primary Care Nurse Name: Uyen Mitchell RN Position: [facility] RN Member Role: Primary Care Nurse Name: Nasra Smith NP Position: Reference Physician Member Role: Primary Care Nurse Address: Address: [address] [address] Name: Silas Knox RN Position: [facility] RN Member Role: Primary Care Nurse Name: Elham Lee RN Position: [facility] AMB Nurse Member Role: Primary Care Nurse Name: Dariana Mariee RN Position: [facility] RN Member Role: Primary Care Nurse Name: Ana María Cat RN Position: [facility] RN Member Role: Primary Care Nurse Name: Janet Pacheco RN Position: [facility] RN Member Role: Primary Care Nurse Name: Flor Holley Position: [facility] RN Member Role: Primary Care Nurse Name: Bret Aguirre RN Position: [facility] RN Member Role: Primary Care Nurse Name: Audra Martinez RN Position: [facility] RN Member Role: Primary Care Nurse Name: Shahbaz Bobo RN Position: [facility] RN Member Role: Primary Care Nurse Name: Jennifer Yin LPN Position: [facility] RN Member Role: Primary Care Nurse Name: Alina Arce RN Position: [facility] RN Member Role: Primary Care Nurse Name: Judi Krueger RN Position: [facility] RN Member Role: Primary Care Nurse Name: Kasia Lund RN Position: [facility] RN Member Role: Primary Care Nurse Name: Rachna Serrano RN Position: [facility] RN Member Role: Primary Care Nurse Name: Naveen Villalobos RN Position: [facility] RN Member Role: Primary Care Nurse Name: Radha Masterson RN Position: [facility] RN Member Role: Primary Care Nurse Name: Landy Villarreal RN Position: [facility] RN Member Role: Primary Care Nurse Name: Adria Bell RN Position: [facility] RN Member Role: Primary Care Nurse Name: Amy Larios RN Position: [facility] RN Member Role: Primary Care Nurse Name: Indira Lindsey RN Position: [facility] SN RN Member Role: Primary Care Nurse Name: Rosa Elena Pope RN Position: [facility] RN Member Role: Primary Care Nurse Name: Florentino Garcia RN Position: [facility] RN Member Role: Primary Care Nurse Name: Cristel Moreno RN Position: [facility] RN Member Role: Primary Care Nurse Name: Rosa Elena De León RN Position: [facility] [employer] Fin[employer] Supervisor Member Role: Primary Care Nurse Name: Nell Lagos RN Position: [facility] RN Member Role: Primary Care Nurse Name: Judi Hamilton RN Position: [facility] RN Member Role: Primary Care Nurse Name: Tulio Pina RN Position: [facility] RN Member Role: Primary Care Nurse Name: Maximiliano Claros RN Position: [facility] RN Member Role: Primary Care Nurse Name: Narda Barnes RN Position: [facility] RN Member Role: Primary Care Nurse Name: Zoë Cisse RN Position: [facility] RN Member Role: Primary Care Nurse Name: Pat Bowers RN Position: [facility] SN RN Member Role: Primary Care Nurse Name: Gemma Chavira RN Position: [facility] RN Member Role: Primary Care Nurse Name: Ruy Salcido RN Position: [facility] RN Member Role: Primary Care Nurse Name: Hilaria Aparicio RN Position: [facility] RN Member Role: Primary Care Nurse Name: Carly Rosado RN Position: [facility] RN Neil Member Role: Primary Care Nurse Name: Taryn Rosado RN Position: [facility] RN Member Role: Primary Care Nurse Name: Sydney Rosado RN Position: [facility] RN Member Role: Primary Care Nurse Name: Magy Bar RN Position: [facility] RN Member Role: Primary Care Nurse Name: Uriel Dumont Position: [facility] RN Member Role: Primary Care Nurse Name: Selene Vazquez RN Position: [facility] RN Member Role: Primary Care Nurse Name: César Gerber RN Position: [facility] RN Member Role: Primary Care Nurse Name: Dariana Becerra RN Position: [facility] RN Member Role: Primary Care Nurse Name: Leyla Verma LPN Position: [facility] RN Member Role: Primary Care Nurse Name: Rody Mays RN Position: [facility] RN Member Role: Primary Care Nurse Name: Marielos Mixon RN Position: [facility] RN Member Role: Primary Care Nurse Name: Radha Flores RN Position: [facility] RN Member Role: Primary Care Nurse Name: Hipolito Giles RN Position: [facility] RN Member Role: Primary Care Nurse Name: Rose Kyle RN Position: [facility] Hospital P[employer] Fin[employer] Supervisor Member Role: Primary Care Nurse Name: Aimee Salamanca RN Position: [facility] RN Member Role: Primary Care Nurse Name: Jacobo Caceres Position: [facility] RN Member Role: Primary Care Nurse Name: Leyla Ohara Position: [facility] ED RN W/OE and Tasks Member Role: Patient Care Provider Name: Uriah Jauregui MD Position: [facility] ED Medicine MD Member Role: ED Attending Physician Address: Address: [address] [place] [id number]- Name: Maribeth Street MD Position: [facility] Resident Member Role: ED Resident Address: Address: [address] [place] [id number]- Name: Jeanne Salinas Position: [facility] ED TA [facility] Member Role: Patient Care Provider Care Team Related Persons Name: STEVENSON HAMM Address: home [address] [address] Name: MELINA VARMA Address: home [place] Name: GARRY VARMA Address: home [address] [address]
--- OUTSIDE RECORDS SUMMARY | 2023-08-15 20:26 | XMS_ITS | Continuity of Care Document ---
Author Name Unknown Organization [facility] Address [address] [place] [id number]- Care Team Providers Care Bioinformatics Engineer Name Role Phone Jose LEE MD, Jorge Tsang Primary Care Physician Encounter [facility] [place] Date(s): 11/17/22 - 01/23/23 [facility] [address] [place] [address]- Attending Physician: Delmar Gonzalez MD Admitting Physician: Delmar Gonzalez MD Allergies, Adverse Reactions, Alerts Substance Reaction Severity Status naproxen lesions on lips Active Toradol Morphine allergy Metaxalone Naproxen Cephalexin allergy hives Persistent Mild Active Keflex 1 rash Active Skelaxin H/O: migraine Active 1tolerates pip/tazo 11/17 Immunizations Given and Recorded Vaccine Date Status Refusal Reason [id number] 12y+ bivalent booster vax 08/23/22 Recorded SARS-CoV-2 [...] 0 Refills, Maintenance, 07/16/22 12:59:00 EDT, Tablet, [facility]/pharmacy #[id number], Partial fill upon patient [...] fractures of ribs Confirmed 01/06/11 Active Old [place] (myocardial infarction) X 3 Confirmed Active PVD [...] Care Nurse Name: Mariely Hardy RN Position: [facility] RN Member Role: Primary Care Nurse Name: Marleen Uriarte RN Position: [facility] RN Member Role: Primary Care Nurse Name: Sydney Zelaya Position: [facility] PCO OFFICE STAFF Member Role: Lifetime Consulting Physician Name: Judd Barahona RN Position: [facility] RN Member Role: Primary Care Nurse Name: Mag Harry RN Position: [facility] RN Member Role: Primary Care Nurse Name: An Blount RN Position: [facility] RN Supv Member Role: Primary Care Nurse Name: Marianna Ng RN Position: [facility] SN RN Member Role: Primary Care Nurse Name: Avani Odell RN Position: [facility] RN Member Role: Primary Care Nurse Name: Lisbet Hickman RN Position: [facility] RN Member Role: Primary Care Nurse Name: Ruben Bello RN Position: [facility] RN Member Role: Primary Care Nurse Name: Araceli Simon RN Position: [facility] RN Member Role: Primary Care Nurse Name: Moni Dugan RN Position: [facility] RN Member Role: Primary Care Nurse Name: Jorge Garcia III, MD Position: [facility] Ambulatory (view) Member Role: PCP Address: Address: [address] [place] [id number] Name: Misty Nguyen RN Position: [facility] RN Member Role: Primary Care Nurse Name: Joyce Cobb Position: [facility] RN Member Role: Primary Care Nurse Name: Sarwat Aj RN Position: [facility] RN Member Role: Primary Care Nurse Name: Cassi Batista RN Position: [facility] RN Member Role: Primary Care Nurse Name: Yanni Holland RN Position: [facility] RN Member Role: Primary Care Nurse Name: Daija Huitron RN Position: [facility] RN Member Role: Primary Care Nurse Name: Ellis Mayfield RN Position: [facility] RN Supv Member Role: Primary Care Nurse Name: Ayah Robison RN Position: [facility] RN Member Role: Primary Care Nurse Name: Kirstin Enriquez RN Position: [facility] RN Member Role: Primary Care Nurse Name: Radha Moreno RN Position: [facility] RN Member Role: Primary Care Nurse Name: Jina Smalls RN Position: [facility] RN Member Role: Primary Care Nurse Name: Laura Clements RN Position: [facility] RN Member Role: Primary Care Nurse Name: Colette Syed RN Position: [facility] RN Member Role: Primary Care Nurse Name: Muriel Daley RN Position: [facility] RN Supv Member Role: Primary Care Nurse Name: Rachna Renteria RN Position: [facility] RN Member Role: Primary Care Nurse Name: Zohreh Pink RN Position: [facility] RN Member Role: Primary Care Nurse Name: Sophie Berrios RN Position: [facility] RN Member Role: Primary Care Nurse Name: Grisel Mcgowan RN Position: [facility] RN Member Role: Primary Care Nurse Name: Uyen Mitchell RN Position: [facility] RN Member Role: Primary Care Nurse Name: Nasra Smith RN Position: [facility] PCO w/OE and EZ Script Member Role: Primary Care Nurse Name: Cindy Grullon RN Position: [facility] RN Supv Member Role: Primary Care Nurse Name: Silas Knox RN Position: [facility] RN Member Role: Primary Care Nurse Name: Elham Lee RN Position: [facility] PCO RN Member Role: Primary Care Nurse Name: Dariana Mariee RN Position: [facility] RN Member Role: Primary Care Nurse Name: Ana María Cat RN Position: [facility] RN Member Role: Primary Care Nurse Name: Flor Holley Position: [facility] RN Member Role: Primary Care Nurse Name: Bret Aguirre RN Position: [facility] RN Member Role: Primary Care Nurse Name: Ghazal Moreno Position: [facility] RN Member Role: Primary Care Nurse Name: Audra Martinez RN Position: [facility] RN Member Role: Primary Care Nurse Name: Shahbaz Bobo RN Position: [facility] RN Member Role: Primary Care Nurse Name: Jennifer Yin LPN Position: [facility] RN Member Role: Primary Care Nurse Name: Alina Arce RN Position: [facility] RN Member Role: Primary Care Nurse Name: Marcelo Schneider RN Position: [facility] ED RN W/OE and Tasks Member Role: Primary Care Nurse Name: Radha Masterson RN Position: [facility] RN Member Role: Primary Care Nurse Name: Landy Villarreal RN Position: [facility] RN Member Role: Primary Care Nurse Name: Amy Larios RN Position: [facility] RN Member Role: Primary Care Nurse Name: Indira Lindsey RN Position: [facility] SN RN Member Role: Primary Care Nurse Name: Rosa Elena Pope RN Position: [facility] RN Member Role: Primary Care Nurse Name: Florentino Garcia RN Position: [facility] RN Member Role: Primary Care Nurse Name: Cristel Moreno RN Position: [facility] RN Member Role: Primary Care Nurse Name: Rosa Elena De León RN Position: [facility] Hospital Substation Operator Apprentice Member Role: Primary Care Nurse Name: Tulio Pina RN Position: [facility] RN Member Role: Primary Care Nurse Name: Maximiliano Claros RN Position: [facility] RN Member Role: Primary Care Nurse Name: Narda Barnes RN Position: [facility] RN Member Role: Primary Care Nurse Name: Zoë Cisse RN Position: [facility] RN Member Role: Primary Care Nurse Name: Pat Bowers RN Position: [facility] RN Member Role: Primary Care Nurse Name: Ruy Salcido RN Position: [facility] RN Member Role: Primary Care Nurse Name: Tayler Cabello RN Position: [facility] RN Member Role: Primary Care Nurse Name: Hilaria Aparicio RN Position: [facility] RN Member Role: Primary Care Nurse Name: Carly Rosado RN Position: [facility] RN Neil Member Role: Primary Care Nurse Name: Taryn Rosado RN Position: [facility] RN Member Role: Primary Care Nurse Name: Sydney Rosado RN Position: [facility] RN Member Role: Primary Care Nurse Name: Fidencio Camarena RN Position: [facility] RN Member Role: Primary Care Nurse Name: Uriel Dumont Position: [facility] RN Member Role: Primary Care Nurse Name: Selene Vazquez RN Position: [facility] RN Member Role: Primary Care Nurse Name: Dariana Becerra RN Position: [facility] RN Member Role: Primary Care Nurse Name: Leyla Verma LPN Position: [facility] RN Member Role: Primary Care Nurse Name: Rody Mays RN Position: [facility] RN Member Role: Primary Care Nurse Name: Marielos Mixon RN Position: [facility] RN Member Role: Primary Care Nurse Name: Radha Flores RN Position: [facility] RN Member Role: Primary Care Nurse Name: Rose Kyle RN Position: [facility] Hospital Substation Operator Apprentice Member Role: Primary Care Nurse Name: Aimee Salamanca Position: [facility] RN Member Role: Primary Care Nurse Name: Jacobo Caceres Position: [facility] RN Member Role: Primary Care Nurse Care Team Related Persons Name: STEVENSON HAMM Address: home [address] [place] [id number] Name: MELINA VARMA Address: [place] [address] Name: GARRY VARMA Address: home [address] [place] [id number] Name: BRIEN LANCASTER Address: home [address] [place] [address]
--- OUTSIDE RECORDS SUMMARY | 2023-08-15 20:26 | XMS_ITS | Continuity of Care Document ---
Author Name Unknown Organization [facility] ter Address [address] [place] [id number]- Care Team Providers Care Delivery Driver/Customer Service Name Role Phone Jose LEE MD, Jorge Tsang Primary Care Physician [phone] Encounter [facility] [place] Date(s): 10/08/21 - 10/08/[address] [address]- Encounter Diagnosis Respiratory distress, acute(Final) - 10/08/21 Discharge Disposition: A-D/C AMA Attending Physician: Syd Olsen MD Admitting Physician: Syd Olsen MD Referring Physician: Not on Staff, Referring [...] 16:44:00 EDT, Aerosol, Route to Pharmacy Electronically, [id number], [facility]/pharmacy #[id number], 182, cm, [...] 6 hours, PRN as needed for pain, Deep vein thrombosis (DVT) of left lower extremity, # 28 tablet, 0 Refills, Maintenance, 10/07/21 10:43:00 EST, Tablet, [facility]/pharmacy #[id number], 183, cm, 09/16/21 16:48:00 EDT, Height, 61, k... Start Date: 10/07/21 Stop Date: 10/14/21 Status: Ordered Dilaudid Inj 1 mg, Injection, IV Push Slowly, Every 4 hours, PRN for Pain , Severe, STAT, 10/08/21 9:56:00 EST Start Date: 10/08/21 Stop Date: 10/08/21 Status: Discontinued Dilaudid Inj 0.5 mg, Injection, IV Push Slowly, Once, STAT, 10/08/21 10:45:00 EST, Stop date 10/08/21 10:45:00 EST Start Date: 10/08/21 Stop Date: 10/08/21 Status: Completed Docusate/Senna Tablet 1 tablet, By [...] Maintenance, 08/13/20 16:33:00 EDT, Powder, [facility]/pharmacy #[id number], [...] 03/31/07 11:15:26, Print MARTIN Number, [facility], [address] [place] [id number], [id number], Constant Indicator Start Date: 03/31/07 Stop Date: [...] Multiple fractures of ribs(Confirmed) 01/06/11 Active Old [place] (myocardial infarctio n) X 3(Confirmed) Active PVD (peripheral vascular disease)(Confirmed) Active 1Cardiac stents 1991, 1995 Results Radiology Reports * Exam Date Time Procedure Performing Provider Status 10/08/21 10:06 AM Chest Portable Ekenbarger Nneka ; Luis M (Verified) Notes: (Chest Portable) Reason For Exam: Shortness of Breath RESULT: Chest Portable Chest Portable CLINICAL INDICATION: Reason: Shortness of Breath; Clinical Question(s): Other: COMPARISON: Chest x-ray, 09/15/2021. FINDINGS: The cardiac silhouette is within normal limits. Aorta is slightly tortuous. There is hyperinflation of the lung tapia with lucency of the apices consistent with emphysema. Hilar contours are somewhat prominent though unchanged, probably related to pulmonary hypertension. The lungs are clear. There is no pneumothorax or CHF. ORIF hardware is seen along the 7th through 9th posterior right ribs with displaced screw projectedsuperior to the 7th rib hardware. IMPRESSION: No acute cardiopulmonary process. Emphysema. WSN: [id number] Ordering Physician: Syd Olsen Dictated By: Ivy Amado MD Dictated Date/Time: 10/08/21 10:13 a Reviewed By: Ivy Amado MD Signed By: Ivy Amado MD Signed Date/Time: 10/08/21 10:13 am Transcribed By: BERENICE Transcribed Date/Time: 10/08/21 10:10 am Vital Signs Most recent to oldest [Reference Range]: 1 2 3 Oxygen Saturation [94-100 %] 100 % (10/08/21 1:01 PM) 100 % (10/08/21 9:25 AM) Pulse Rate [55-90 bpm] 91 bpm *H* (10/08/21 1:01 PM) 88 bpm (10/08/21 9:25 AM) Blood Pressure [90-138/55-84 mm Hg] 154/96mm Hg *H* (10/08/21 1:01 PM) 149/88mm Hg *H* (10/08/21 9:25 AM) Respiratory Rate [16-30 br/min] 20 br/min (10/08/21 1:01 PM) 20 br/min (10/08/21 10:50 AM) 16 br/min (10/08/21 10:16 AM) Temperature [96.8-100.4 DegF] 98 DegF (10/08/21 9:25 AM) Liters per Minute 2 L/min (10/08/21 1:01 PM) Mode of Delivery (Oxygen) Nasal cannula (10/08/21 1:01 PM) CPAP (10/08/21 9:25 AM) CPAP (10/08/21 9:20 AM) Temperature Route Oral (10/08/21 9:25 AM) Social History Social History Type Response Tobacco Use: 2 cigarettes a day . Sex
--- OUTSIDE RECORDS SUMMARY | 2023-08-15 20:26 | XMS_ITS | Continuity of Care Document ---
Author Name Unknown Organization [facility] ter Address [address] [place] [id number]- Care Team Providers Care Hypo Dipper Name Role Phone Jose LEE MD, Jorge Tsang Primary Care Physician [phone] Encounter [facility] Date(s): 05/26/23 - 05/27/[address] [address]- Encounter Diagnosis COPD exacerbation(Final) - 05/26/23 Chronic back pain(Final) - 05/26/23 Discharge Disposition: A-D/C Home Attending Physician: Syd Gustafson DO Admitting Physician: Justa Vicente MD Referring Physician: Not on Staff, Referring [...] virus vaccine, inactivated 1 10/14/06 Gi rox [id number] 12y+ bivalent booster vax 08/23/22 Recorded SARS-CoV-2 [...] Not Given Patient Refuses pneumococcal 23-valent vaccine 9/30/15 Not Given Patient Refuses 1Admin Note: VIS [...] opioid drug. Start Date: 07/02/22 Status: Ordered [place] Saline 0.65% nasal gel 1 sprays, Nares, Both, 4 times a day, # 22.5 Gm, 0 Refills, Maintenance, 05/12/23 15:41:00 EDT, [facility]/pharmacy #[id number], Partial fill upon patient request [...] 05/30/23 10:29:00 EDT, 05/25/23 10:27:00 EDT, Tablet, [facility], Partial fill upon patient [...] 5 Refills, Maintenance, 04/27/23 13:54:00 EDT, Tablet, [facility], Partial fill upon patient [...] mg, Tablet, By Mouth, Every 4 hours, home dose, PRN for Pain , Severe, Routine, 05/26/23 10:21:00EDT Start Date: 05/26/23 Stop Date: 05/28/23 Status: Discontinued hydrOXYzine hydrochloride 10 mg oral [...] 0 Refills, Maintenance, 05/25/23 11:17:00 EDT, Tablet, [facility], Partial fill upon patient [...] 0 Refills, Maintenance, 05/06/23 9:44:00 EDT, Tablet, [facility]/pharmacy #[id number], Partial fill upon patient request if the prescription is for a schedule II opioid drug., 182, cm, 05/06/23 7:54:00 EDT, Height,... Start Date: 05/06/23 Status: Ordered sodium chloride 0.65% nasal spray 1 sprays, Nares, Both, 5 times a day, dryness, # 1 each, 0 Refills, Maintenance, 05/12/23 15:40:00 EDT, Nasal Christmas, [id number], Partial fill upon patient request [...] fractures of ribs Confirmed 01/06/11 Active Old [place] (myocardial infarction) X 3 Confirmed Active PVD (peripheral vascular disease) Confirmed Active Tobacco dependence Confirmed Active Underweight Confirmed Active 1Cardiac stents 1991, 1995 Results Orders for Microbiology Reports Name Date Blood Culture 05/26/23 Blood Culture #2 05/26/23 Microbiology Reports TEST:Blood Culture, Second Order STATUS:Unauthenticated BODY SITE: SOURCE:Blood COLLECTED DATE/TIME:05/26/23 9:35 AM Blood Culture, Second Order SPECIMEN DESCRIPTION : BLOOD RHAND SPECIAL REQUESTS : NONE CULTURE : NO GROWTH AFTER 24 HOURS REPORT STATUS : PRELIMINARY REPORT TEST:Blood Culture STATUS:Unauthenticated BODY SITE: SOURCE:Blood COLLECTED DATE/TIME:05/26/23 9:21 AM Blood Culture SPECIMEN DESCRIPTION : BLOOD L HAND SPECIAL REQUESTS : NONE CULTURE : NO GROWTH AFTER 24 HOURS REPORT STATUS : PRELIMINARY REPORT Radiology Reports * Exam Date Time Procedure Performing Provider Status 05/26/23 9:21 AM Chest Portable Disha Altman (Verified) Notes: (Chest Portable) Reason For Exam: COPD RESULT: Chest Portable Chest Portable Reason: COPD; Clinical Question(s): Pneumonia COMPARISON: 05/22/2023 FINDINGS: No acute cardiopulmonary process. Intact right rib hardware. Stable findings of emphysema. IMPRESSION: No acute abnormality. WSN: [id number] Ordering Physician: Judd aCrlos Dictated By: Judd Hitchcock MD Dictated Date/Time: 05/26/23 9:37 am Reviewed By: Judd Hitchcock MD Signed By: Judd Hitchcock MD Signed Date/Time: 05/26/23 9:37 am Transcribed By: BERENICE Transcribed Date/Time: 05/26/23 9:36 am Vital Signs Most recent to oldest [Reference Range]: 1 2 3 Height 182.8 cm (05/27/23 10:46 AM) Weight 58 kg (05/27/23 10:46 AM) Oxygen Saturation [94-100 %] 96 % (05/27/23 11:00 AM) 100 % (05/27/23 9:55 AM) 100 % (05/27/23 9:55 AM) Pulse Rate [55-90 bpm] 86 bpm (05/27/23 11:00 AM) 80 bpm (05/27/23 9:55 AM) 80 bpm (05/27/23 9:55 AM) Body Mass Index [18.5-24.99 kg/m2] 17.36 kg/m2 *L* (05/27/23 10:46 AM) Blood Pressure [90-138/55-84 mm Hg] 125/79mm Hg (05/27/23 11:00 AM) 164/89mm Hg *H* (05/27/23 9:55 AM) 164/89mm Hg *H* (05/27/23 9:55 AM) Respiratory Rate [16-30 br/min] 16 br/min (05/27/23 2:23 PM) 16 br/min (05/27/23 11:14 AM) 16 br/min (05/27/23 11:00 AM) Temperature [96.8-100.4 DegF] 98.8 DegF (05/27/23 11:00 AM) 97.8 DegF (05/27/23 9:55 AM) 97.8 DegF (05/27/23 9:55 AM) Liters per Minute 4 L/min (05/27/23 11:00 AM) 4 L/min (05/27/23 9:55 AM) 4 L/min (05/27/23 9:55 AM) Mode of Delivery (Oxygen) Nasal cannula (05/27/23 11:00 AM) Nasal cannula (05/27/23 9:55 AM) Nasal cannula (05/27/23 9:55 AM) Blood pressure sites Arm, right (05/27/23 11:00 AM) Arm, left (05/27/23 9:55 AM) Arm, left (05/27/23 9:55 AM) Temperature Route Oral (05/27/23 11:00 AM) Oral (05/27/23 9:55 AM) Oral (05/27/23 9:55 AM) Dry Weight 58 kg (05/27/23 10:46 AM) Weight Obtained Via Bed scale (05/27/23 10:46 AM) Social History Social History Type Response Tobacco Use: 4 or less cigar ettes(less than 1/4 pack)/day in last 30 days. Interested in cessation: Yes. Other: Reports smoked at least 30 years, up to 1-2 PPD at one point.. Type: Cigarettes. Sex History and physical note * Maurice AMAYA, [place]: PERFORM Event Display: History and Physical Hospital Authored Date: Patient: ??ANT BRUMFIELD ? Age:??67 Years?Sex:??Male?:??1955?? Chief Complaint/Reason for Consultation SOB. see paper chart History of Present Illness Date of exam: 05/26/2023 ?? 67-year-old male with very complex history, and frequent hospital admissions, with history including COPD with chronic hypoxic respiratory failure, on home o2 2-3 L, ongoing tobacco abuse, recurrent shoulder infections, CAD s/p previous stents, chronic pain, DVT, HTN, ribr fractures, PVD, and anxiety, last hospitalized on 05/22 for acute on chronic hypoxic respiratory failure secondary to COPD exacerbation, discharged home yesterday. ?? He presents today with worsening shortness of breath.?? Apparently woke up today at his baseline health, ate breakfast and soon after started having significant shoulder pain which exacerbated his shortness of breath.?? Call 911 and presented to ED.?? No fevers or chills.?? No chest pain.?? Ogema nauseous this morning but that has resolved. ?? Upon arrival to ED, afebrile, hemodynamically stable, saturating well on baseline oxygen at 3 L.?? Venous blood gas showing pH of 7.39.?? Labs showing leukocytosis with WBC count 15.1, electrolytes normal, kidney function and LFTs normal, initial troponin elevated at 28, subsequent troponin flat at26.?? TSH normal.?? COVID-19 negative.?? Chest x-ray with no acute disease.?? Received 2 g of magnesium, DuoNebs with some improvement in respiratory status.?? Admitted for further management. ?? My exam, complains of severe shoulder pain and requesting IV Dilaudid as that is the only thing that works for him.?? Rest of ROS negative. Review of Systems Constitutional: No fevers, chills HEENT: No headache, rhinorrhea, difficulty swallowing, blurry vision Cardiovascular: No chest pain Respiratory: Shortness of breath GI: No nausea, no vomiting, no abdominal pain, no change in bowel habits Neuro: No weakness, numbness, tingling in extremities Psych: No acute behavioral changes Muscular skeletal: Right shoulder pain Endocrine: No recent weight loss or gain, no change in appetite : No dysuria or hematuria Objective Vital Signs?? Temperature: 98.9 DegF (05/26/23 19:23:00) Temperature Route: Oral (05/26/23 19:23:00) Pulse Rate: 84 bpm (05/26/23 22:29:00) Respiratory Rate: 22 br/min (05/26/23 22:29:00) Systolic Blood Pressure: 133 mm Hg (05/26/23 23:19:00) Diastolic Blood Pressure:??86 mm Hg??High (05/26/23 23:19:00) Blood pressure sites: Arm, left (05/26/23 22:29:00) Mean Arterial Pressure: 95 mm Hg (05/26/23 18:13:00) Pulse Pressure: 47 mm Hg (05/26/23 23:19:00) Oxygen Saturation: 100 % (05/26/23 22:29:00) Liters per Minute: 3 L/min (05/26/23 22:29:00) Mode of Delivery (Oxygen): Nasal cannula (05/26/23 22:29:00) Early Warning Score: 2 (05/26/23 23:19:13) ? Physical Exam General: NAD, cachectic HEENT: Atraumatic, normocephalic, EOMI, PERRLA, moist mucous membranes Neck: Supple Cardiac: S1, S2 heard, RRR Pulmonary: Diminished air entry bilaterally,??scattered inspiratory and expiratory wheezing Abdomen: Soft, nontender, nondistended, bowel sounds heard Extremities: No cyanosis, clubbing or edema,??right shoulder??wound in dressing Skin: No rash Neuro: No focal deficits, awake and alert Psych: Mood and affect appropriate for encounter Assessment/Plan Assessment:??67-year-old male with very complex history, and frequent hospital admissions, with history including COPD with chronic hypoxic respiratory failure, on home o2 2-3 L, ongoing tobacco abuse, recurrent shoulder infections, CAD s/p previous stents, chronic pain, DVT, HTN, ribr fractures, PVD, and anxiety, last hospitalized on 05/22 for acute on chronic hypoxic respiratory failure secondary to COPD exacerbation, discharged home yesterday.??Now admitted with??recurrent COPD exacerbation ?? COPD exacerbation (J44.1):??Oxygen requirements have remained at baseline.?? Symptoms improved with??IV magnesium and DuoNebs.?? Continue scheduled and as needed bronchodilators.?? Continue??p.o. prednisone.?? Continue oxygen supplementation.?? Closely monitor respiratory status ?? Right shoulder pain (M25.511):??He has history of septic arthritis of the shoulder, follows up at [facility] Previously was on wound VAC which was discontinued on most recent hospital stay; has had many courses of antibiotics, managed by ID and Ortho at [facility] Blood cultures were drawn during his last admission on 05/22, have been negative thus far Anticipate outpatient follow-up at [facility] Continue??p.o. Dilaudid.??Prescription monitoring program??reviewed.??Please note that??patient hasa care plan in place,??he is known to request IV Dilaudid for??pain control during his hospitalizations. ?? Deep vein thrombosis (DVT) of left lower extremity (I82.402):??Continue Eliquis ?? GERD (gastroesophageal reflux disease) (K21.9):??Continue PPI ?? HTN (hypertension) (I10):??Continue metoprolol ?? Hyperlipidemia (E78.5):??Continue statin ?? Tobacco dependence (F17.200):??States he is down to 4 cigarettes a day.??Declines nicotine replacement therapy ?? VTE Prophylaxis:??On Eliquis ?VTE Prophylaxis Assessment:??VTE Prophylaxis Ordered ?? Code Status:??Full code ?? Discharge Planning:? Histories Allergies Allergies ?(Active and Proposed Allergies [...] Metabolic alkalosis Multiple fractures of ribs [place] (myocardial infarction) X 3 Pulmonary cachexia due to COPD PVD (peripheral vascular disease) Smoking greater than 40 pack years Tobacco dependence Underweight ? Past Surgical History Arthrotomy, glenohumeral [...] to give the dose of NARCAN Nasal Christmas. Remove t... Pantoprazole (pantoprazole 40 mg oral delayed release tablet)?1?tab(s)?40?Milligram?By Mouth?Daily PredniSONE (predniSONE 10 mg oral tablet)?3?tab(s)?30?Milligram?By Mouth?Daily roflumilast (roflumilast 500 mcg oral tablet)?1?tab(s)?500?Microgram?By Mouth?Daily Sodium Chloride Nasal (sodium chloride 0.65% nasal spray)?1?spray(s)?Nares, Both?5 times a day?dryness Sodium Chloride Nasal ([place] Saline 0.65% nasal gel)?1?spray(s)?Nares, Both?4 times a day Thiamine (Vitamin B1 100 mg oral tablet)?100?Milligram?1?tablet?By Mouth?Daily umeclidinium (Incruse Ellipta 62.5 mcg/inh inhalation powder)?1?puff(s)?Inhalation?Every 24 hours ? Results Recent Labs BLOOD COUNT & DIFF WBC 15.1 k/mm3 (High)?? 05/26/2023 09:20 RBC 3.65 m/mm3 (Low)?? 05/26/2023 09:20 Hgb 9.8 Gm/dL (Low)?? 05/26/2023 09:20 Hct 32.7 % (Low)?? 05/26/2023 09:20 MCV 89.6 femtoliters ()?? 05/26/2023 09:20 MCH 26.8 pg (Low)?? 05/26/2023 09:20 MCHC 30.0 g/dL (Low)?? 05/26/2023 09:20 Platelet Count 447 k/mm3 ()?? 05/26/2023 09:20 RDW-SD 55.9 femtoliters (High)?? 05/26/2023 09:20 MPV 9.7 femtoliters ()?? 05/26/2023 09:20 Nucleated RBC (Automated) 0.0 #/100 WBC'S ()?? 05/26/2023 09:20 Abs. NRBC 0.0 k/mm3 ()?? 05/26/2023 09:20 Abs. Neut 11.2 k/mm3 (High)?? 05/26/2023 09:20 Abs. Lymph 1.7 k/mm3 ()?? 05/26/2023 09:20 Abs. [place] 1.8 k/mm3 (High)?? 05/26/2023 09:20 Abs. Eo 0.0 k/mm3 ()?? 05/26/2023 09:20 Abs. Baso 0.0 k/mm3 ()?? 05/26/2023 09:20 Neut % 73.2 % ()?? 05/26/2023 09:20 Lymph % 10.3 % (Low)?? 05/26/2023 09:20 [place] % 12.0 % (High)?? 05/26/2023 09:20 Eos % 0.0 % ()?? 05/26/2023 09:20 Baso % 0.0 % ()?? 05/26/2023 09:20 Promyelocyte % 0.9 % ()?? 05/26/2023 09:20 Myelocytes % 0.9 % ()?? 05/26/2023 09:20 Metamyelocyte % 0.9 % ()?? 05/26/2023 09:20 Band % 0.9 % ()?? 05/26/2023 09:20 Atypical Lymph % 0.9 % ()?? 05/26/2023 09:20 RBC Morphology FEW ()?? 05/26/2023 09:20 Platelet Estimate ADEQUATE ()?? 05/26/2023 09:20 Hemoglobin (POC) POC Cartridge 10.9 Gm/dL (Low)?? 05/26/2023 09:37 Hematocrit (POC) POC Cartridge 32 % (Low)?? 05/26/2023 09:37 ?? BLOOD GAS pH Venous (POC) POC Cartridge 7.39 ()?? 05/26/2023 09:37 pCO2 Venous (POC) POC Cartridge 65.6 mm Hg (High)?? 05/26/2023 09:37 pO2 Venous (POC) POC Cartridge 50 mm Hg (High)?? 05/26/2023 09:37 Est Bicarbonate (POC) POC Cartridge 39.4 mmol/L (High)?? 05/26/2023 09:37 % O2 Sat Venous (POC) POC Cartridge 83 ()?? 05/26/2023 09:37 Base Excess (POC) POC Cartridge 14 ()?? 05/26/2023 09:37 Specimen Type - Blood Gas VENOUS ()?? 05/26/2023 09:37 ?? CARDIAC Nt-Probnp 364 pg/mL (High)?? 05/26/2023 09:21 High Sensitivity Troponin (HSTnT) 26 ng/L (High)?? 05/26/2023 13:30 ?? CHEM GENERAL Sodium 141 mmol/L ()?? 05/26/2023 09:21 Potassium 3.8 mmol/L ()?? 05/26/2023 09:21 Chloride 97 mmol/L (Low)?? 05/26/2023 09:21 Bicarbonate Level 36 mmol/L (High)?? 05/26/2023 09:21 Anion Gap 8 ()?? 05/26/2023 09:21 Sodium (POC) POC Cartridge 138 mmol/L ()?? 05/26/2023 09:37 Potassium (POC) POC Cartridge 3.4 mmol/L (Low)?? 05/26/2023 09:37 Glucose Level 118 mg/dL (High)?? 05/26/2023 09:21 Glucose (POC) POC Cartridge 110 (High)?? 05/26/2023 09:37 Glucose, POC 135 mg/dL (High)?? 05/26/2023 09:06 BUN 14 mg/dL ()?? 05/26/2023 09:21 Creatinine-Blood 0.4 mg/dL (Low)?? 05/26/2023 09:21 Estimated GFR Creatinine 118 ML/MIN/1.73 M2 ()?? 05/26/2023 09:21 Calcium 9.2 mg/dL ()?? 05/26/2023 09:21 Ionized Calcium (POC) POC Cartridge 1.19 mmol/L ()?? 05/26/2023 09:37 Magnesium 1.7 mg/dL ()?? 05/26/2023 09:21 Protein, Total 6.0 Gm/dL (Low)?? 05/26/2023 09:21 Albumin 3.7 Gm/dL ()?? 05/26/2023 09:21 AG Ratio 1.6 ()?? 05/26/2023 09:21 Alkaline Phosphatase 95 units/L ()?? 05/26/2023 09:21 Lipase 50 units/L ()?? 05/26/2023 09:21 AST (SGOT) 21 units/L ()?? 05/26/2023 09:21 ALT (SGPT) 18 units/L ()?? 05/26/2023 09:21 Bilirubin, Total 0.3 mg/dL ()?? 05/26/2023 09:21 ?? ENDOCRINE/TUMOR MARKER TSH 1.90 uIU/mL ()?? 05/26/2023 09:21 ?? HEME OTHER Hold Blue Top SPECIMEN DISCARDED AFTER 4 HOURS. ()?? 05/26/2023 09:20 ?? VIROLOGY COVID-19 by RT-PCR NEGATIVE ()?? 05/26/2023 09:41 ? Hospital Progress note * Agustina Massey RN: PERFORM, SIGN, VERIFY Event Display: Progress Note Hospital Authored Date: [id number] Patient: ANT BRUMFIELD Age: 67 years Sex: Male : 1955 Associated Diagnoses: None Author: Agustina Massey RN Findings Narrative/Incidental Patient recieved to the unit via stretcher, slid into bed. Alert and oriented X3, anxious given hydroxyine by mouth as ordered. Lungs with rhonchi throughout. O2 sat 96% on 4 liters via nasal cannula. Abdomen soft, non-tender, BS+. Primo intact for urine. Skin red to buttocks and sctorum- zinc oxide cream applied. Dressing to right shoulder changed. Rating pain 10/10 to right shouder, left hip and back- given dilaudid by mouth as ordered. Tolerating diet wihtotu difficulty. Patient to be discharged to home via ambulance at 1530. Will continue to monitor. . Note * Agustina Massey RN: PERFORM Event Display: Discharge/Transfer Note Hospital Authored Date: [id number] Nursing Discharge Note Entered On: 05/27/2023 15:41 EDT Performed On: 05/27/2023 15:40 EDT by Agustina Massey RN Nursing Discharge Note 2 Discharge Time : 05/27/2023 15:35 EDT Discharge Level of Care at Discharge : Home/Shelter/Foster Care Patient Left Unit Via : Ambulance Patient Accompanied Off Unit with : Ambulance/Chair Van Personnel Handover Given to Transport Personnel : Yes DC Instructions Provided & Signed by Pt : Yes Patient Understands D/C Instructions : Yes Patient Instructions Discharge Signed : Yes Did Pt have Specialty Bed or Wound Vac : No Agustina Massey RN - 05/27/2023 15:40 EDT * Syd Gustafson DO: PERFORM Event Display: Discharge/Transfer Note Hospital Authored Date: [id number] Patient: ??ANT BRUMFIELD ? Age:??67 Years?Sex:??Male?:??1955?? Patient Information Discharge Location: D6A Primary Care Physician: Jorge Garcia III, MD Admit Date/Time: 05/26/23 12:54 Discharge Disposition Discharge Disposition: Home: No Services Discharge Diagnosis Deep vein thrombosis (DVT) of left lower extremity (I82.402) GERD (gastroesophageal reflux disease) (K21.9) HTN (hypertension) (I10) Hyperlipidemia (E78.5) Tobacco dependence (F17.200) PVD (peripheral vascular disease) (I73.9) COPD exacerbation (J44.1) Chronic back pain (M54.9) Right shoulder pain (M25.511) Anxiety CAD - Coronary artery disease COPD [...] to give the dose of NARCAN Nasal Christmas. Remove t... Pantoprazole (pantoprazole 40 mg oral delayed release tablet)?1?tab(s)?40?Milligram?By Mouth?Daily PredniSONE (predniSONE 10 mg oral tablet)?3?tab(s)?30?Milligram?By Mouth?Daily roflumilast (roflumilast 500 mcg oral tablet)?1?tab(s)?500?Microgram?By Mouth?Daily Sodium Chloride Nasal (sodium chloride 0.65% nasal spray)?1?spray(s)?Nares, Both?5 times a day?dryness Sodium Chloride Nasal ([place] Saline 0.65% nasal gel)?1?spray(s)?Nares, Both?4 times a day Thiamine (Vitamin B1 100 mg oral tablet)?100?Milligram?1?tablet?By Mouth?Daily umeclidinium (Incruse Ellipta 62.5 mcg/inh inhalation powder)?1?puff(s)?Inhalation?Every 24 hours ? Quality Measures Tobacco Use Treatment:??Still smokes ? Vaccinations and Immunoprophylaxis influenza virus vaccine, inactivated: [...] (COVID-19) mRNA-1273 vaccine: 0.5 Unknown (01/25/21 07:00:00) [id number] 12y+ bivalent booster vax: 0.3 Unknown (08/23/22 [...] Diphth-Tetanus Toxoids Adsorbed(oldterm): 0.5 mL (06/04/07 22:13:00) ?? Future Appointments Tuesday 9:00 AM EDT ?? With: Stevenson Plascencia DO Where: [facility] [address] [place] [address]- Status: Pending Hospital Course Mr. Brumfield is a 67-year-old male with very complex history, and frequent hospital admissions, with history including COPD with chronic hypoxic respiratory failure, on home o2 2-3 L, ongoing tobacco abuse, recurrent shoulder infections, CAD s/p previous stents, chronic pain, DVT, HTN, rib fractures, PVD, and anxiety, last hospitalized on 05/22 for acute on chronic hypoxic respiratory failure secondary to COPD exacerbation, discharged home yesterday. Now admitted with concern for recurrent COPD exacerbation however he??remains on his baseline O2 and is without increased cough or sputum production. He will follow with PCP. ? COPD exacerbation (J44.1): Oxygen requirements have remained at baseline. ??Symptoms improved with IV magnesium and DuoNebs. ??Continue scheduled and as needed bronchodilators. ??Continue p.o. prednisone. ??Continue oxygen supplementation. ??Closely monitor respiratory status ? Right shoulder pain (M25.511): He has history of septic arthritis of the shoulder, follows up at [facility] ??Previously was on wound VAC which was discontinued on most recent hospital stay; has had many courses of antibiotics, managed by ID and Ortho at [facility] ??Blood cultures were drawn during his last admission on 05/22, have been negative thus far ??Anticipate outpatient follow-up at [facility] ??Continue p.o. Dilaudid. Prescription monitoring program reviewed. Please note that patient has a care plan in place, he is known to request IV Dilaudid for pain control during his hospitalizations. ? Deep vein thrombosis (DVT) of left lower extremity (I82.402): Continue Eliquis ? GERD (gastroesophageal reflux disease) (K21.9): Continue PPI ? HTN (hypertension) (I10): Continue metoprolol ? Hyperlipidemia (E78.5): Continue statin ? Tobacco dependence (F17.200): States he is down to 4 cigarettes a day. Declines nicotine replacement therapy ? VTE Prophylaxis: On Eliquis ? VTE Prophylaxis Assessment: VTE Prophylaxis Ordered ? Code Status: Full code ? Objective Measurements?? Height: 182.8 cm (05/27/23) Weight: 58 kg (05/27/23) Dry Weight: 58 kg (05/27/23) Body Mass Index:??17.36 kg/m2??Low (05/27/23) ? Vital Signs?? Temperature: 98.8 DegF (05/27/23 11:00:00) Temperature Route: Oral (05/27/23 11:00:00) Pulse Rate: 86 bpm (05/27/23 11:00:00) Respiratory Rate: 16 br/min (05/27/23 11:00:00) Systolic Blood Pressure: 125 mm Hg (05/27/23 11:00:00) Diastolic Blood Pressure: 79 mm Hg (05/27/23 11:00:00) Blood pressure sites: Arm, right (05/27/23 11:00:00) Mean Arterial Pressure: 114 mm Hg (05/27/23 09:55:00) Mean Arterial Pressure: 114 mm Hg (05/27/23 09:55:00) Pulse Pressure: 75 mm Hg (05/27/23 09:55:00) Pulse Pressure: 75 mm Hg (05/27/23 09:55:00) Oxygen Saturation: 96 % (05/27/23 11:00:00) Liters per Minute: 4 L/min (05/27/23 11:00:00) Mode of Delivery (Oxygen): Nasal cannula (05/27/23 11:00:00) Early Warning Score: 0 (05/27/23 11:30:35) ? . Physical Exam General: NAD, cachectic HEENT: Atraumatic, normocephalic, EOMI, PERRLA, moist mucous membranes Neck: Supple Cardiac: S1, S2 heard, RRR Pulmonary: Diminished air entry bilaterally,??scattered inspiratory and expiratory wheezing Abdomen: Soft, nontender, nondistended, bowel sounds heard Extremities: No cyanosis, clubbing or edema,??right shoulder??wound in dressing Skin: No rash Neuro: No focal deficits, awake and alert Psych: Mood and affect appropriate for encounter Patient Education Titles COPD: Coping with Mucus?? COPD: Chronic Coughing?? Chronic Lung Disease: Notes for Family and Friends?? Chronic Lung Disease: Your Emotional Well-Being?? Follow-Up Appointments Added Follow Up ?Time Frame ?Comments Jose LEE MD, Jorge Tsang Post Discharge Care Code Status: Full Code Condition: Stable Prognosis: Fair Discharge ?05/27/23 14:10:00 EDT Results Discharge Labs BLOOD COUNT & DIFF WBC 15.1 k/mm3 (High)?? 05/26/2023 09:20 RBC 3.65 m/mm3 (Low)?? 05/26/2023 09:20 Hgb 9.8 Gm/dL (Low)?? 05/26/2023 09:20 Hct 32.7 % (Low)?? 05/26/2023 09:20 MCV 89.6 femtoliters ()?? 05/26/2023 09:20 MCH 26.8 pg (Low)?? 05/26/2023 09:20 MCHC 30.0 g/dL (Low)?? 05/26/2023 09:20 Platelet Count 447 k/mm3 ()?? 05/26/2023 09:20 RDW-SD 55.9 femtoliters (High)?? 05/26/2023 09:20 MPV 9.7 femtoliters ()?? 05/26/2023 09:20 Nucleated RBC (Automated) 0.0 #/100 WBC'S ()?? 05/26/2023 09:20 Abs. NRBC 0.0 k/mm3 ()?? 05/26/2023 09:20 Abs. Neut 11.2 k/mm3 (High)?? 05/26/2023 09:20 Abs. Lymph 1.7 k/mm3 ()?? 05/26/2023 09:20 Abs. [place] 1.8 k/mm3 (High)?? 05/26/2023 09:20 Abs. Eo 0.0 k/mm3 ()?? 05/26/2023 09:20 Abs. Baso 0.0 k/mm3 ()?? 05/26/2023 09:20 Neut % 73.2 % ()?? 05/26/2023 09:20 Lymph % 10.3 % (Low)?? 05/26/2023 09:20 [place] % 12.0 % (High)?? 05/26/2023 09:20 Eos % 0.0 % ()?? 05/26/2023 09:20 Baso % 0.0 % ()?? 05/26/2023 09:20 Promyelocyte % 0.9 % ()?? 05/26/2023 09:20 Myelocytes % 0.9 % ()?? 05/26/2023 09:20 Metamyelocyte % 0.9 % ()?? 05/26/2023 09:20 Band % 0.9 % ()?? 05/26/2023 09:20 Atypical Lymph % 0.9 % ()?? 05/26/2023 09:20 RBC Morphology FEW ()?? 05/26/2023 09:20 Platelet Estimate ADEQUATE ()?? 05/26/2023 09:20 Hemoglobin (POC) POC Cartridge 10.9 Gm/dL (Low)?? 05/26/2023 09:37 Hematocrit (POC) POC Cartridge 32 % (Low)?? 05/26/2023 09:37 ? BLOOD GAS pH Venous (POC) POC Cartridge 7.39 ()?? 05/26/2023 09:37 pCO2 Venous (POC) POC Cartridge 65.6 mm Hg (High)?? 05/26/2023 09:37 pO2 Venous (POC) POC Cartridge 50 mm Hg (High)?? 05/26/2023 09:37 Est Bicarbonate (POC) POC Cartridge 39.4 mmol/L (High)?? 05/26/2023 09:37 % O2 Sat Venous (POC) POC Cartridge 83 ()?? 05/26/2023 09:37 Base Excess (POC) POC Cartridge 14 ()?? 05/26/2023 09:37 Specimen Type - Blood Gas VENOUS ()?? 05/26/2023 09:37 ? CARDIAC Nt-Probnp 364 pg/mL (High)?? 05/26/2023 09:21 High Sensitivity Troponin (HSTnT) 26 ng/L (High)?? 05/26/2023 13:30 ?? CHEM GENERAL Sodium 141 mmol/L ()?? 05/26/2023 09:21 Potassium 3.8 mmol/L ()?? 05/26/2023 09:21 Chloride 97 mmol/L (Low)?? 05/26/2023 09:21 Bicarbonate Level 36 mmol/L (High)?? 05/26/2023 09:21 Anion Gap 8 ()?? 05/26/2023 09:21 Sodium (POC) POC Cartridge 138 mmol/L ()?? 05/26/2023 09:37 Potassium (POC) POC Cartridge 3.4 mmol/L (Low)?? 05/26/2023 09:37 Glucose Level 118 mg/dL (High)?? 05/26/2023 09:21 Glucose (POC) POC Cartridge 110 (High)?? 05/26/2023 09:37 Glucose, POC 135 mg/dL (High)?? 05/26/2023 09:06 BUN 14 mg/dL ()?? 05/26/2023 09:21 Creatinine-Blood 0.4 mg/dL (Low)?? 05/26/2023 09:21 Estimated GFR Creatinine 118 ML/MIN/1.73 M2 ()?? 05/26/2023 09:21 Calcium 9.2 mg/dL ()?? 05/26/2023 09:21 Ionized Calcium (POC) POC Cartridge 1.19 mmol/L ()?? 05/26/2023 09:37 Magnesium 1.7 mg/dL ()?? 05/26/2023 09:21 Protein, Total 6.0 Gm/dL (Low)?? 05/26/2023 09:21 Albumin 3.7 Gm/dL ()?? 05/26/2023 09:21 AG Ratio 1.6 ()?? 05/26/2023 09:21 Alkaline Phosphatase 95 units/L ()?? 05/26/2023 09:21 Lipase 50 units/L ()?? 05/26/2023 09:21 AST (SGOT) 21 units/L ()?? 05/26/2023 09:21 ALT (SGPT) 18 units/L ()?? 05/26/2023 09:21 Bilirubin, Total 0.3 mg/dL ()?? 05/26/2023 09:21 ?? ENDOCRINE/TUMOR MARKER TSH 1.90 uIU/mL ()?? 05/26/2023 09:21 ? HEME OTHER Hold Blue Top SPECIMEN DISCARDED AFTER 4 HOURS. ()?? 05/26/2023 09:20 ? URINE OTHER Est Creatinine Clearance 151.04 mL/min ()?? 05/27/2023 10:48 ? VIROLOGY COVID-19 by RT-PCR NEGATIVE ()?? 05/26/2023 09:41 ? 39??minutes spent on discharge * Shilpa SHANNON, Agustina M: MODIFY, PERFORM Event Display: Patient Education/Instruction Authored Date: [id number] Inpatient Adult Discharge Instructions [address] [address] Name: ANT BRUMFIELD : 1955 Visit: 05/26/2023 12:54:00 Current Date: 05/27/2023 14:53 Account: [id number] Inpatient Adult Discharge Instructions We would like [...] and their families. Surveys are administered by [employer]. ?? If further treatment with your primary care physician or another doctor is recommended, it is important for you to keep the appointment. Call your primary care physician or return to the Emergency Department immediately if your condition worsens, fails to improve, or new symptoms develop. If you need to find a doctor, you can call [facility] for a referral at [phone] or toll free at [phone] ([phone]) or log in to [email or web address] ?? You can view and manage your care through the patient portal or by using a health care lore of your choosing. [employer] is a website that allows you to securely view your medical information including your hospital discharge summary, office visit summaries, medications and follow-up visits. You can also request appointments, renew medications, and request access to your medical information using a health care lore of your choosing, or just ask a question. You can enroll at [email or web address] or register during your next office visit. You have been discharged from [facility], Patient Care Unit: D6A. If you have any questions regarding these instructions after you leave, please call us and we will be happy to assist you. [facility] Your Care Team Attending Physician Syd Gustafson DO Discharging Providers Syd Gustafson DO Reason for Admission SOB. see paper chart Your Diagnosis COPD exacerbation Chronic back pain Deep vein thrombosis (DVT) of left lower extremity GERD (gastroesophageal reflux disease) HTN (hypertension) Hyperlipidemia Tobacco dependence PVD (peripheral vascular disease) Right shoulder pain Tests Performed Below is a partial list of the tests performed during your hospitalization. You may have had other tests and procedures not included in this list. Please discuss all test results with your provider. BASE EXCESS POC CARTRIDGE CALCIUM IONIZED POC CART CBC w/ Differential Comprehensive Metabolic Panel COVID-19 (Novel Coronavirus), Rapid PCR GLUCOSE POC GLUCOSE POC CARTRIDGE HEMATOCRIT POC CARTRIDGE HEMOGLOBIN POC CARTRIDGE High??Sensitivity??Troponin T Hold Blue Top Tube Lipase Magnesium Level POTASSIUM POC CARTRIDGE ProBNP SODIUM POC CARTRIDGE Troponin T, High Sensitivity TSH with T4 Reflex (Adults Only) VBG POC CARTRIDGE CXR Portable Primary Care Provider Jorge Garcia III, MD Advance Directive Health Care Proxy on File Yes - Health Care Proxy Yes - MOLST Discharge Vitals Temperature: 98.8 DegF Height: 182.8 cm Pulse Rate: 86 bpm Weight: 58 kg Respiratory Rate: 16 br/min Body Mass Index:??17.36 kg/m2??Low Systolic Blood Pressure: 125 mm Hg Body surface area: 1.72 Diastolic Blood Pressure: 79 mm Hg ?? Oxygen Saturation: 96 % ?? Studies Pending All tests and labs ordered during this hospital stay have been completed unless listed below. Please discuss all pending results with your provider listed above in these instructions. ?? Blood Culture Blood Culture #2 What to do next Instructions From Your Doctor Discharge Orders Code Status:??Full Code Condition:??Stable Prognosis:??Fair Scheduled Follow-Up Appointments Tuesday 9:00 AM EDT ?? With: Stevenson Plascencia DO Where: [facility] [address] [place] [address]- Status: Pending You Need to Schedule the Following Appointments Follow Up with??Jorge Garcia III, MD Where: [address] [place] [id number]- Discharge Medications ANT BRUMFIELD :1955 Visit Date:05/26/2023 Medications: Please continue your medications until treatment is completed or stopped by your provider. Medications not listed below should be discontinued. Discuss any questions related to medications with your provider. What How Much When Instructions Next Dose Unchanged Acetaminophen (acetaminophen 325 mg oral tablet) 2 tab(s) Oral Every 4 hours as needed for as needed for fever Today 05/27 if needed Unchanged Albuterol (albuterol 0.042% inhalation solution) 3 Milliliter Nebulized inhalation Every 4 hours Today 05/27?? 4p Unchanged Albuterol (albuterol 90 mcg/ inh inhalation powder) 2 puff(s) Inhalation Every 4 hours as needed for as needed Today 05/27 if needed Unchanged apixaban (Eliquis 5 mg oral tablet) 1 tab(s) Oral Twice a day Duration: 30 Days Today 05/27?? 9p Unchanged Aspirin (aspirin 81 mg oral capsule) 1 capsule Oral Daily Tomorrow 05/28?? 9a Unchanged Atorvastatin (atorvastatin 80 mg oral tablet) 1 tab(s) Oral Daily Tomorrow 05/28?? 9a Unchanged Budesonide-Formoterol (Symbicort 160mcg/ 4.5mcg Inhaler) 2 puff(s) Inhalation Twice a day Today 05/27?? 9p Unchanged Dicyclomine (dicyclomine 10 mg oral capsule) 1 capsule Oral 4 times a day Today 05/27?? 4p Unchanged Duloxetine (duloxetine 60 mg oral enteric coated capsule) 1 capsule Oral Twice a day Today 05/27?? 9p Unchanged Gabapentin (gabapentin 300 mg oral capsule) 2 capsule Oral 3 times a day Today 05/27?? 9p Unchanged Guaifenesin/ Dextromethorphan (Robitussin DM Liquid) 5 Milliliter Oral Every 6 hours as needed for Cough Today 05/27 if needed Unchanged Hydromorphone (Dilaudid 4 mg oral tablet) 1 tab(s) Oral Every 4 hours as needed for Pain , Severe Do not take if very sedated, confused. ?? Today 05/27 after p Unchanged HydrOXYzine (hydrOXYzine hydrochloride 10 mg oral tablet) 1 tab(s) Oral 3 times a day as needed for Anxiety Today 05/27 9p if needed Unchanged Isosorbide Dinitrate (isosorbide dinitrate 30 mg oral tablet) 1 tab(s) Oral Twice a day Today 05/27?? 9p Unchanged Loperamide (loperamide 2 mg oral capsule) 1 capsule Oral Every 4 hours as needed for for loose stool Today 05/27 if needed Unchanged Melatonin 10 Milligram Oral Daily at Bedtime as needed for as needed for sleep Today 05/27 before bed Unchanged Metoprolol (Metoprolol Succinate ER 25 mg oral tablet, extended release) 1 tab(s) Oral Daily Tomorrow 05/28?? 9a Unchanged nalOXONE (Narcan 4 mg/ 0.1 mL nasal spray) See instructions If concern for opioid overdose. Gently insert the tip of the nozzle into one nostril, until your fingers on either side of the nozzle are against the bottom of the person's nose. Press the plunger firmly to give the dose of NARCAN Nasal Christmas. Remove the NARCAN Nasal Christmas from the nostril after giving the dose. Get emergency medical help right away. ?? Today 05/27 if needed Unchanged Pantoprazole (pantoprazole 40 mg oral delayed release tablet) 1 tab(s) Oral Daily Tomorrow 05/28?? 9a Unchanged PredniSONE (predniSONE 10 mg oral tablet) 3 tab(s) Oral Daily Tomorrow 05/28?? 9a Unchanged roflumilast (roflumilast 500 mcg oral tablet) 1 tab(s) Oral Daily Tomorrow 05/28?? 9a Unchanged Sodium Chloride Nasal ([place] Saline 0.65% nasal gel) 1 spray(s) Nares, Both 4 times a day Today 05/27 if needed Unchanged Sodium Chloride Nasal (sodium chloride 0.65% nasal spray) 1 spray(s) Nares, Both 5 times a day dryness ?? Today 05/27 if needed Unchanged Thiamine (Vitamin B1 100 mg oral tablet) 1 tab(s) Oral Daily Tomorrow 05/28?? 9a Unchanged umeclidinium (Incruse Ellipta 62.5 mcg/ inh inhalation powder) 1 puff(s) Inhalation Every 24 hours Tomorrow 05/28?? 9a Test Results Below is a partial list of the most recent Laboratory test results done prior to this discharge. You may have had other tests and procedures not included in this list. Please discuss all test resultswith your provider. Est Creatinine Clearance - 151.04 mL/min (05/27/2023) BASE EXCESS POC CARTRIDGE (05/26/2023) ???Base Excess (POC) POC Cartridge - 14 CALCIUM IONIZED POC CART (05/26/2023) ???Ionized Calcium (POC) POC Cartridge - 1.19 mmol/L CBC w/ Differential (05/26/2023) ???WBC - 15.1 k/mm3???RBC - 3.65 m/mm3???Hgb - 9.8 Gm/dL???Hct - 32.7 %???MCV - 89.6 femtoliters???MCH - 26.8 pg???MCHC - 30.0 g/dL???Platelet Count - 447 k/mm3???RDW-SD - 55.9 femtoliters???MPV - 9.7 femtoliters???Nucleated RBC (Automated) - 0.0 #/100 WBC'S???Abs. NRBC - 0.0 k/mm3???Abs. Neut - 11.2 k/mm3???Abs. Lymph - 1.7 k/mm3???Abs. [place] - 1.8 k/mm3???Abs. Eo - 0.0 k/mm3???Abs. Baso - 0.0 k/mm3???Neut % - 73.2 %???Lymph % - 10.3 %???[place] % - 12.0 %???Eos % - 0.0 %???Baso % - 0.0 %???Promyelocyte % - 0.9 %???Myelocytes % - 0.9 %???Metamyelocyte % - 0.9 %???Band % - 0.9 %???Atypical Lymph % - 0.9 %???RBC Morphology - FEW???Platelet Estimate - ADEQUATE Comprehensive Metabolic Panel (05/26/2023) ???Sodium - 141 mmol/L???Potassium - 3.8 mmol/L???Chloride - 97 mmol/L???Bicarbonate Level - 36 mmol/L???Anion Gap - 8???Glucose Level - 118 mg/dL???BUN - 14 mg/dL???Creatinine-Blood - 0.4 mg/dL???Estimated GFR Creatinine - 118 ML/MIN/1.73 M2???Calcium - 9.2 mg/dL???Protein, Total - 6.0 Gm/dL???[place] min - 3.7 Gm/dL???AG Ratio - 1.6???Alkaline Phosphatase - 95 units/L???AST (SGOT) - 21 units/L???ALT (SGPT) - 18 units/L???Bilirubin, Total - 0.3 mg/dL COVID-19 (Novel Coronavirus), Rapid PCR (05/26/2023) ???COVID-19 by RT-PCR - NEGATIVE GLUCOSE POC (05/26/2023) ???Glucose, POC - 135 mg/dL GLUCOSE POC CARTRIDGE (05/26/2023) ???Glucose (POC) POC Cartridge - 110 HEMATOCRIT POC CARTRIDGE (05/26/2023) ???Hematocrit (POC) POC Cartridge - 32 % HEMOGLOBIN POC CARTRIDGE (05/26/2023) ???Hemoglobin (POC) POC Cartridge - 10.9 Gm/dL High??Sensitivity??Troponin T (05/26/2023) ???High Sensitivity Troponin (HSTnT) - 28 ng/L Hold Blue Top Tube (05/26/2023) ???Hold Blue Top - SPECIMEN DISCARDED AFTER 4 HOURS. Lipase (05/26/2023) ???Lipase - 50 units/L Magnesium Level (05/26/2023) ???Magnesium - 1.7 mg/dL POTASSIUM POC CARTRIDGE (05/26/2023) ???Potassium (POC) POC Cartridge - 3.4 mmol/L ProBNP (05/26/2023) ???Nt-Probnp - 364 pg/mL SODIUM POC CARTRIDGE (05/26/2023) ???Sodium (POC) POC Cartridge - 138 mmol/L Troponin T, High Sensitivity (05/26/2023) ???High Sensitivity Troponin (HSTnT) - 26 ng/L TSH with T4 Reflex (Adults Only) (05/26/2023) ???TSH - 1.90 uIU/mL VBG POC CARTRIDGE (05/26/2023) ???pH Venous (POC) POC Cartridge - 7.39???pCO2 Venous (POC) POC Cartridge - 65.6 mm Hg???pO2 Venous(POC) POC Cartridge - 50 mm Hg???Est Bicarbonate (POC) POC Cartridge - 39.4 mmol/L???% O2 Sat Venous (POC) POC Cartridge - 83???Specimen Type - Blood Gas - VENOUS Allergies (NKA means No Known Allergies) Toradol??(Morphine [...] Metabolic alkalosis?? Multiple fractures of ribs?? Old [place] (myocardial infarction) X 3?? old Rib fractures, right 3-8?? Pulmonary cachexia due to COPD?? PVD (peripheral vascular disease)?? Smoking greater than 40 pack years?? Tobacco dependence?? Underweight?? Education Materials Below is the list of Educational Leaflet Providered with your Discharge Instructions. COPD: Coping with Mucus?? COPD: Chronic Coughing?? Chronic Lung Disease: Notes for Family and Friends?? Chronic Lung Disease: Your Emotional Well-Being?? Valuables and Belongings I fully understand and agree that [facility] accepts no responsibility for all my [...] witness Date for Pt to Sign Valuables/Belongings: 05/27/23 13:41:00 ?? Other Discharge Information ? Case Management Discharge Plan?? Discharge Plan?? Discharge Level of Care at Discharge: Home/Shelter/Foster Care Discharge Transportation Arranged: [facility] [address] [facility] [id number] [phone] Mode of Transportation Arranged: Ambulance Discharge Arranged Transport Date/Time: 05/27/23 15:30:00 ?? Pulmonary Rehab Status?? Pulmonary Rehab Discharge Status?? Respiratory Rate: 16 br/min ? Common Emergency Awareness Tips IS [...] are strongly encouraged to quit. Please call [facility] at [phone] or [phone] [phone]) or log in to [email or web address] for referrals to smoking cessation programs. ?? 988 Suicide & Crisis Lifeline is available 20/06 if you or someone you know needs to find a reason to keep living. By calling 202 you'll be connected to a skilled, trained counselor at a crisis center in your area. INPATIENT DISCHARGE INSTRUCTIONS SIGNATURE PAGE ANT BRUMFIELD Location:[facility] Registration Date and Time:05/26/2023 12:54 EDT Primary Care Physician: Jose LEE MD, Jorge Tsang, Attending Physician: Syd Gustafson DO, I ANT BRUMFIELD, have received the above patient education materials/instructions and have verbalized understanding. If ambulance or transport services are being used I further acknowledge being given a choice of service. ?? If you need to contact me, please call me at this number: . Patient/Rn Rehabilitation Name: Patient/Rn Rehabilitation Signature: Relationship to Patient: Witness Name/Signature: Date: * Syd Gustafson DO: PERFORM Event Display: Patient Education Leaflets Authored Date: [id number] COPD: Coping with Mucus ?? [address] COPD: Coping with Mucus When you have COPD, you may be dealing with mucus. Mucus is a thick, sticky fluid. It's also known as sputum or phlegm. It's normal for the lungs to make some mucus. Mucus helps trap harmful particles in the air you breathe in. These particles are called irritants. They include things such as cigarette smoke, germs, dust, and chemicals. Inside the lungs, air moves through tubes called airways. In healthy lungs, tiny hairs line the airways. These hairs are called cilia. They sweep mucus up to the throat. Then the mucus and irritants are coughed or sneezed out or swallowed. This helps to protect the lungs and the airways. How does COPD cause mucus? With COPD, lungs and airways don't work the way they should. The airways become damaged because of swelling in airway lining. They also make more mucus. This clogs the airways. The damage is most often caused by breathing in irritants over a long period of time. The main irritant that causes COPD is cigarette smoke. COPD is a term for two main conditions. These are chronic bronchitis and emphysema. With chronic bronchitis, the irritated airways swell. The muscles that surround the airways may tighten. The damaged airways also make more mucus than normal. They do this to try to clear the irritants away. But themucus builds up. This can cause an ongoing (chronic) cough as the body tries to remove mucus. The extra mucus and the swollen, tight airways make it harder to breathe. This is because the airways areblocked and narrowed. Less air gets in and out of the lungs. Smoking also damages or destroys the cilia in the airways. Damaged cilia can???t move. So the mucus, smoke, and other particles can???t be swept out of the lungs. As a result, germs aren???t cleared away. Then the lungs are more likely to become infected. Lung infections can make COPD symptoms worse. Healthy airway. Airway with COPD. ?? Treatment for mucus There is no cure for COPD other than lung transplant. But certain treatments help manage symptoms of COPD, such as extra mucus: ??? Bronchodilators. These medicines help open the airways. This makes it easier to clear mucus from the lungs. Most bronchodilators are taken with an inhaler. This allows the medicine to go straightto the lungs. Bronchodilators can also be given in a nebulizer machine. ??? Combination medicines. These include a bronchodilator and a steroid. Steroids reduce swelling and inflammation that cause you to make mucus. This keeps the airways from getting irritated. ??? Antibiotics. A respiratory infection can lead to more mucus and coughing. Antibiotics are medicines that help treat infections. ???Mucolytic medicines. These medicines manage excess mucus by thinning the mucus, making it easier to cough up. Your healthcare provider will work with you to decide on the best treatment plan for you. ?? Self-care tips for mucus There are ways to reduce mucus. These include: ??? Stop smoking. Cigarette smoking is the main cause of COPD. Stopping smoking is the most important step you can take to treat COPD. As soon as you quit, your body begins to repair the damage caused by smoking. If you need help stopping smoking, talkwith your healthcare provider. ??? Stay away from secondhand smoke and other irritants. Try to stayaway from smoke, chemicals, fumes, pollen, and dust. Don???t let anyone smoke in your home or around you. Stay indoors on smoggy days. ??? Prevent lung infections. Get vaccines as directed by your provider. Having COPD increases your risk for flu and pneumonia. Ask your healthcare provider about the flu and pneumonia vaccines. Take steps to prevent colds and other lung infections. Stay away from crowds during cold and flu season, and avoid others who are sick. ??? Practice correct handwashing. This helps prevent infections. Wash your hands often with soap and water for at least 20 seconds. Use hand box blank machine operator helper with at least 60% alcohol when you can???t wash your hands. ??? Limit dairy products. Dairy products can increase mucus. Enjoy milk, ice cream, and cheese in small amounts. ??? Drink plenty of water. This helps make mucus thinner and easier to cough up. Ask your healthcare provider how much water you should drink. For many people, 6 to 8 glasses (8 ounces each) a day is a good goal. ??? Clear your airway. When your lungs make a lot of mucus or it's hard to cough up, airway clearing techniques can help. These include coughing techniques and postural drainage. Keeping your lungsclear of mucus helps prevent shortness of breath and other symptoms. Ask your healthcare provider about these techniques. ??? Don???t be afraid to be active. Being active may make you short of breath. Exercise can strengthen the muscles that help you breathe Ask your healthcare provider about the right amount and type of safe exercises for you. ?? When to call your healthcare provider Call your healthcare provider or seek medical care right away if you have any of these problems: ??? Fever of 100.4??F (38??C) or higher, or as directed by your healthcare provider ??? Symptoms that don???t get better, or get worse ??? New symptoms ?? Last Reviewed Date: 2022 ?? 8926-1124 [employer]. All rights reserved. This information is not intended as a substitute for professional medical care. Always follow your healthcare professional's instructions. ?? * Syd Gustafson DO: PERFORM Event Display: Patient Education Leaflets Authored Date: [id number] COPD: Chronic Coughing ?? [address] COPD: Chronic Coughing When you have COPD, you may have a cough that lasts for 3 months or longer. It can last for 2 yearsin a row. This is called a chronic cough. A chronic cough with COPD is usually caused by irritationof the airways. What is a chronic cough? Coughing is a normal function of your body. It plays an important role in your breathing system. Coughing helps protect your body. It removes germs, mucus, dust, and other irritants from your lungs. In people who don't have COPD, a cough that lasts longer than 8 weeks is also called a chronic cough. But when you have COPD, a cough can last 3 months or make a lot of mucus. Because symptoms of thecondition can vary or may look like another disease, your healthcare provider will need to confirm that you have COPD. ?? How does COPD cause a chronic cough? COPD is a condition that keeps your lungs from working as they should. The lungs??? job is to get air in and out of the body. Inside the lungs, air moves through tubes called airways. In healthy airways, air moves in and out easily. With COPD, some airways are blocked because of swelling to the lining of the airway and an increase in mucus. This makes breathing harder. It can also cause a chroniccough. COPD is a term for two main conditions. These are chronic bronchitis and emphysema. In both of these conditions, the airways and lungs are damaged. The damage is usually from breathing in irritants over a long period of time. Irritants are particles that irritate the lungs and airways. The main irritant that causes COPD is cigarette smoke. Other irritants are pollution, dust, fumes, and chemicals. When the lungs are always irritated, the body coughs a lot. It does this to try to remove the irritants. This chronic cough is often called a smoker???s cough. With chronic bronchitis, the damaged airways swell. They also make more mucus than normal. Mucus sarah thick, sticky fluid. It traps smoke and other harmful irritants you breathe in. This helps protect the airways. But too much mucus can block the airways. And that makes it harder to breathe. The body tries to remove this excess mucus by coughing it up. ?? Treatment for chronic cough There is no cure for COPD. But certain treatments help control a chronic cough: ??? Bronchodilators. These medicines help open the airways. This makes it easier to breathe. Most bronchodilators are taken with an inhaler or a nebulizer. This allows the medicine to go straight to the lungs. ??? Combination medicines. These include a bronchodilator and a steroid. Steroids reduce swelling and mucus production. This helps keep the airways from getting irritated. These medicines are usually taken every day to help prevent coughing and other breathing problems. ??? Antibiotics. Arespiratory infection can lead to more coughing and mucus. Antibiotics are medicines that help treat bacterial infections. ??? Pulmonary rehab (rehabilitation). This program teaches ways to ease COPD symptoms. It includes tips on eating well and exercising to feel better. ??? Oxygen therapy. If your oxygen levels are low, your healthcare provider may prescribe oxygen to help make your breathing easier. Oxygen is breathed in through prongs in the nose or a facemask. Oxygen can be used only at certain times. Or it can be used most of the time. Your healthcare provider will work with you to come up with the best treatment plan for you. ?? Self-care tips for chronic cough You can take steps to reduce your coughing: ??? Stop smoking. Smoking is the main cause of COPD. Stopping smoking is the best thing you can do to treat COPD. If you need help stopping smoking, talk with your healthcare provider. There are medicines that can help you quit. There are also programs, such as the [employer]???s [place] From Smoking program. ??? Stay away from secondhand smoke and other irritants. Try to stay away from smoke, chemicals, fumes, pollen, and dust. Don???tlet anyone smoke in your home or around you. Stay indoors on smoggy days. ??? Prevent lung infections. Having COPD increases your risk for respiratory infections such as the flu, pneumonia, and COVID-19. Ask your healthcare provider about the vaccines you need. Take steps to prevent colds and otherlung infections. Stay away from crowds when possible during cold and flu season. Wear a mask when you are in crowded indoor places during cold and flu season. ??? Practice correct handwashing. Wash your hands often with soap and clean, running water for at least 20 seconds. Use hand box blank machine operator helper with a t least 60% alcohol when you can???t wash your hands. ??? Limit dairy products. Dairy products can increase mucus. So have milk, ice cream, and cheese in small amounts. ??? Drink plenty of water. This helps make mucus thinner and easier to cough up. Ask your healthcare provider how much water you should drink. For many people, 6 to 8 glasses (8 ounces each) a day is a good goal. ??? Do breathing e xercises. Learn how to do belly breathing and pursed lip breathing. These exercises can help you breathe better. Try to do each exercise for 5 to 10 minutes every day. ??? Don???t be afraid to be active. Being active may make you short of breath. Even so, it is good for your lungs. Exercise can strengthen the muscles that help you breathe. Ask your healthcare provider about safe exercises for you. ?? When to call your healthcare provider Call your healthcare provider right away if you have any of these problems: ??? Fever of 100.4??F (38??C) or higher, or as directed by your healthcare provider ??? Symptoms that don???t get better, or get worse ??? New symptoms ?? Last Reviewed Date: 2022 ?? 1157-7750 [employer]. All rights reserved. This information is not intended as a substitute for professional medical care. Always follow your healthcare professional's instructions. ?? * Syd Gustafson DO: PERFORM Event Display: Patient Education Leaflets Authored Date: [id number] Chronic Lung Disease: Notes for Family and Friends ?? 97774 Chronic Lung Disease: Notes for Family and Friends Being close to someone with??chronic lung disease??will likely mean some changes in your life. As your loved one eliza with chronic lung disease, you may be asked to be a helper, caregiver, or sourceof support. Helpful tips Here are general tips to follow:? Learn as much as you can about chronic lung disease. This will help you know what to expect. Itwill also show you ways that you can help. ??? Talk with your loved one???s healthcare team. Ask any questions you have. Make sure you understand your role in treatment. ??? Spend time with your loved one. Take time to talk and to do things you both enjoy. ??? Join a local support group. Contact the [employer] at www.[employer].org or 430-769-0784. Find support resources at the COPD Foundation at www.copdfoundation.org or 246-729-3821. ?? Tips for caregivers Caregivers' tips include:? Keep in mind that you can???t take good care of someone else if youdon???t take care of yourself, too. Take breaks when you need them. Thinking about your own needs isn't selfish, it???s vital. ??? You may want to do things for your loved one to help save time. But let them do some things for themself. This can help them feel involved and independent. Encourage your loved one to stick with old hobbies or try new ones. And ask friends to visit if your loved one agrees. ??? Watch for signs of depression in your loved one. These include trouble sleeping and loss of interest in activities, food, or people. They also include talk about feeling hopeless or very sad. If you see these signs, tell their healthcare provider. ??? Watch for depression in yourself. If you feel sad, guilty, tired, hopeless, or helpless most of the time, talk with your healthcare provider. Depression can and should be treated. ?? Last Reviewed Date: 2021 ?? 0354-1951 [employer]. All rights reserved. This information is not intended as a substitute for professional medical care. Always follow your healthcare professional's instructions. ?? Patient Care team information Care Team Personnel Name: Glo Camarena RN Position: [facility] RN Member Role: Primary Care Nurse Name: Fatimah Bennett RN Position: [facility] RN Member Role: Primary Care Nurse Name: Mariely Hardy RN Position: [facility] RN Member Role: Primary Care Nurse Name: Marleen Uriarte RN Position: [facility] RN Member Role: Primary Care Nurse Name: Sydney Zelaya Position: [facility] SN Support Member Role: Lifetime Consulting Physician Name: Judd Barahona RN Position: [facility] RN Member Role: Primary Care Nurse Name: Mag Harry RN Position: [facility] RN Member Role: Primary Care Nurse Name: An Blount RN Position: [facility] RN Supv Member Role: Primary Care Nurse Name: Rebecca Whitley RN Position: [facility] RN Member Role: Primary Care Nurse Name: Marianna Ng RN Position: [facility] SN RN Member Role: Primary Care Nurse Name: Avani Odell RN Position: [facility] RN Member Role: Primary Care Nurse Name: Lisbet Hickman RN Position: [facility] RN Member Role: Primary Care Nurse Name: Ruben Bello RN Position: [facility] RN Member Role: Primary Care Nurse Name: Araceli Simon RN Position: [facility] RN Member Role: Primary Care Nurse Name: Judi Streeter RN Position: [facility] RN Member Role: Primary Care Nurse Name: Moni Dugan RN Position: [facility] RN Member Role: Primary Care Nurse Name: Jorge Garcia III, MD Position: Reference Physician Member Role: PCP Address: Address: [address] [place] [address] Name: Misty Nguyen RN Position: [facility] RN Member Role: Primary Care Nurse Name: Joyce Cobb Position: [facility] RN Member Role: Primary Care Nurse Name: Sarwat Aj RN Position: [facility] RN Member Role: Primary Care Nurse Name: César Patel RN Position: [facility] RN Member [...] Care Nurse Name: Radha Moreno RN Position: [facility] RN Member [...] Care Nurse Name: Judith Rojas LPN Position: [facility] RN Member Role: Primary Care Nurse Name: Sydney Raza RN Position: [facility] RN Member Role: Primary Care Nurse Name: Rachna Renteria RN Position: [facility] RN Member Role: Primary Care Nurse Name: Zohreh Pink RN Position: [facility] RN Member Role: Primary Care Nurse Name: Sophie Berrios RN Position: [facility] RN Member Role: Primary Care Nurse Name: Grisel Mcgowan RN Position: [facility] RN Member Role: Primary Care Nurse Name: Uyen Mitchell RN Position: [facility] RN Member Role: Primary Care Nurse Name: Nasra Smith NP Position: Reference Physician Member Role: Primary Care Nurse Address: Address: [address] [place] [address] Name: Silas Knox RN Position: [facility] RN Member Role: Primary Care Nurse Name: Elham Lee RN Position: [facility] AMB Nurse Member Role: Primary Care Nurse Name: Dariana Mariee RN Position: [facility] RN Member Role: Primary Care Nurse Name: Ana María Cat RN Position: [facility] RN Member Role: Primary Care Nurse Name: Janet Pacheco RN Position: [facility] RN Member [...] Care Nurse Name: Judi Krueger RN Position: [facility] RN Member Role: Primary Care Nurse Name: Kasia Lund RN Position: [facility] RN Member Role: Primary Care Nurse Name: Rachna Serrano RN Position: [facility] RN Member Role: Primary Care Nurse Name: Naveen Villalobos RN Position: [facility] RN Member Role: Primary Care Nurse Name: Radha Masterson RN Position: [facility] RN Member Role: Primary Care Nurse Name: Landy Villarreal RN Position: [facility] RN Member Role: Primary Care Nurse Name: Adria Bell RN Position: [facility] RN Member [...] Care Nurse Name: Cristel Moreno RN Position: [facility] RN Member Role: Primary Care Nurse Name: Rosa Elena De León RN Position: [facility] Safety Technician Member Role: Primary Care Nurse Name: Nell Lagos RN Position: [facility] RN Member Role: Primary Care Nurse Name: Judi Hamilton RN Position: [facility] RN Member [...] Nurse Name: Pat Bowers RN Position: [facility] SN RN Member Role: Primary Care Nurse Name: Gemma Chavira RN Position: [facility] RN Member Role: Primary Care Nurse Name: Ruy Salcido RN Position: [facility] RN Member Role: Primary Care Nurse Name: Hilaria Aparicio RN Position: [facility] RN Member Role: Primary Care Nurse Name: Carly Rosado RN Position: [facility] RN Supv Member Role: Primary Care Nurse Name: Taryn Rosado RN Position: [facility] RN Member Role: Primary Care Nurse Name: Sydney Rosado RN Position: [facility] RN Member Role: Primary Care Nurse Name: Magy Bar RN Position: [facility] RN Member Role: Primary Care Nurse Name: Uriel Dumont Position: [facility] RN Member Role: Primary Care Nurse Name: Selene Vazquez RN Position: [facility] RN Member Role: Primary Care Nurse Name: César Gerber RN Position: [facility] RN Member [...] Care Nurse Name: Hipolito Giles RN Position: [facility] RN Member Role: Primary Care Nurse Name: Rose Kyle RN Position: [facility] Safety Technician Member Role: Primary Care Nurse Name: Aimee Salamanca RN Position: [facility] RN Member Role: Primary Care Nurse Name: Jacobo Caceres Position: [facility] RN Member Role: Primary Care Nurse Name: Savanna PINK Attending Position: [facility] ED Medicine MD Name: Paz Kevin RN Position: [facility] ED RN W/OE and Tasks Member Role: Patient Care Provider Name: Jina Roberts RN Position: [facility] ED RN W/OE and Tasks Member Role: Patient Care Provider Name: Josiane Parra Position: [facility] ED TA [facility] Care Team Related Persons Name: STEVENSON HAMM Address: home [address] [address] Name: MELINA BRUMFIELD Address: [place] [address] Name: GARRY BRUMFIELD Address: home [address] [address]
--- OUTSIDE RECORDS SUMMARY | 2023-08-15 20:26 | XMS_ITS | Continuity of Care Document ---
Author Name Unknown Organization [facility] Address [address] [address]- Care Team Providers Care Floor Covering Contractor Name Role Phone Jorge Garcia III, MD Primary Care Physician [phone] Encounter [facility] Date(s): 04/17/20 - 08/09/20 [facility] [address] [place] [address] [place] [address]- [facility] Attending Physician: Reginaldo Allison II, MD Admitting Physician: Reginaldo Allison II, MD Referring Physician: Jorge Garcia III, MD [...] 16:44:00 EDT, Aerosol, Route to Pharmacy Electronically, [id number], [facility]/pharmacy #[id number], 182, cm, 05/26/20 16:01:00 E... Start [...] 0 Refills, Maintenance, 07/24/20 16:44:00 EDT, Tablet, [facility]/pharmacy #[id number], 182, cm, 05/26/20 16:01:00 EDT, Height, 67, kg, 07/05/20 13:57:00 EDT, Dry Weight Start Date: 07/24/20 Status: Ordered predniSONE 5 mg oral tablet 3 tablet = 15 mg, By Mouth, Daily, for 30 days, with food or milk, # 90 tablet, 0 Refills, Hard Stop 08/13/20 15:00:00 EDT, 07/14/20 15:00:00 EDT, Tablet, [id number], 182, cm, 05/26/20 16:01:00 EDT, Height, 67, kg, 07/05/20 13:57:00 EDT, Dry W... Start Date: 07/14/20 Stop Date: 08/13/20 Status: Ordered predniSONE 5 mg oral tablet [...] 6, 03/31/07 11:15:26, Print MARTIN Number, ADS [facility], [address] [place] [address], [phone], Constant Indicator Start Date: 03/31/07 Stop Date: [...] Multiple fractures of ribs(Confirmed) 01/06/11 Active [place] (myocardial infarctio n) X 3(Confirmed) Active PVD (peripheral vascular disease)(Confirmed) Active 1Cardiac stents 1991, 1995 Social History Social History Type Response Tobacco Use: Former smoker.. Sex Male
--- OUTSIDE RECORDS SUMMARY | 2023-08-15 20:26 | XMS_ITS | Continuity of Care Document ---
Author Name Unknown Organization [facility] ter Address [address] [place] [address]- Care Team Providers Care Territory Service Representative Name Role Phone Jorge Garcia III, MD Primary Care Physician Encounter [facility] Date(s): 05/28/20 - 07/12/[address] [address] [facility] Attending Physician: Reginaldo Allison II, MD Admitting [...] 10:39:00 EST, Aerosol, Route to Pharmacy Electronically, [id number], [facility]/pharmacy #[id number], 182, cm, 12/26/19 9:43:00 EST, [...] Acute 11/08/20 13:57:00 EST, 05/15/20 13:55:00 EDT, [facility]/pharmacy #[id number], 182, cm, 05/15/20 13:20:00 EDT, Height... [...] cm, 05/15/20 13:20:00 EDT, Height, 56.4, kg, 08/1... Start Date: 11/08/20 Status: Ordered roflumilast 500 [...] 6, 03/31/07 11:15:26, Print MARTIN Number, [facility], [address] [place] [address], [phone], Constant Indicator Start Date: 03/31/07 Stop Date: [...] Multiple fractures of ribs(Confirmed) 01/06/11 Active [place] (myocardial infarctio n) X 3(Confirmed) Active PVD (peripheral vascular disease)(Confirmed) Active 1Cardiac stents 1991, 1995 Social History Social History Type Response Tobacco Use: Former smoker.. Sex Male
--- OUTSIDE RECORDS SUMMARY | 2023-08-15 20:26 | XMS_ITS | Continuity of Care Document ---
Author Name Unknown Organization [facility] Address [address] [place] [address]- Care Team Providers Care Manufactured Buildings Repairer Name Role Phone Jorge Garcia III, MD Primary Care Physician Encounter [facility] Date(s): 10/12/21 - 01/14/22 [facility] [address] [place] [address]- Attending Physician: Cheng Marsh MD Admitting Physician: Cheng Marsh MD Referring Physician: Jorge Garcia III, MD Allergies, Adverse Reactions, Alerts Substance Reaction Severity Status Skelaxin H/O: migraine Active naproxen lesions on lips Active morphine 1 itch Active Toradol hives Active Keflex rash Active : Can tolerate [...] 6 Refills, Maintenance, 07/24/20 16:44:00 EDT, [facility]/pharmacy #[id number], 182, cm, 05/26/20 16:01:00 EDT, Height, 67, kg, 07/05/20 13:57:00 EDT, Dry Weight Start Date: 07/24/20 Status: Ordered albuterol CFC free 90 mcg/inh inhalation aerosol 2, puffs, Inhalation, Every 6 hours, PRN, j44.9, # 1 each, Refills 6, Tot. Refills 6, Maintenance, 07/24/20 16:44:00 EDT, Aerosol, Route to Pharmacy Electronically, [id number], [facility]/pharmacy #[id number], 182, cm, [...] 14:30:54, Tablet Start Date: 07/01/14 Status: Ordered Docusate/Senna Tablet 1 tablet, By [...] Refills, Maintenance, 11/01/21 10:44:00 EST, Gum, [facility]/pharmacy #[id number], Partial fill upon patient [...] EC Tablet Start Date: 10/07/21 Status: Ordered simethicone 80 mg oral tablet, [...] 11:15:26, Print MARTIN Number, ADS [facility], [address] [place] [address], [phone], Constant Indicator Start Date: 03/31/07 Stop Date: 10/27/07 Status: Ordered Tylenol 325 mg oral tablet 650 mg, 2, tablet, By Mouth, Every 4 hours, PRN, # 30 tablet, Refills 0, Tot. Refills 0, Maintenance, Pain , Mild, 11/08/21 12:55:00 EST, Route to Pharmacy Electronically, [facility]/pharmacy #[id number], Partialfill upon patient request if the prescription [...] disease)(Confirmed) Active Underweight(Confirmed) Active 1Cardiac stents 1995 Social History Social History Type Response Tobacco Use: 2 cigarettes a day . Sex
--- OUTSIDE RECORDS SUMMARY | 2023-08-15 20:26 | XMS_ITS | Continuity of Care Document ---
Author Name Unknown Organization [facility] Address [address] [place] [address]- Care Team Providers Care Rubber Compounder Name Role Phone Jorge Garcia III, MD Primary Care Physician [place] [facility] [place] 05/28/20 - 09/05/20 [facility] [address] [place] [address]- [facility] Attending Physician: Cheng Marsh MD Admitting Physician: [...] 16:44:00 EDT, Aerosol, Route to Pharmacy Electronically, [id number], [facility]/pharmacy #[id number], 182, cm, 05/26/20 16:01:00 [...] each,6 Refills, Maintenance, 08/13/20 16:33:00 EDT, Powder, [facility]/pharmacy #[id number], 182, cm, 05/26/20 16:01:00 [...] Number, ADS [facility], [address] [place] [address], [phone], Constant Indicator Start Date: 03/31/07 Stop Date: [...]
--- OUTSIDE RECORDS SUMMARY | 2023-08-15 20:26 | XMS_ITS | Continuity of Care Document ---
Author Name Unknown Organization [facility] ter Address [address] [place] [address]- Care Team Providers Care Progress Worker Name Role Phone Jose LEE MD, Jorge Tsang Primary Care Physician [phone] Encounter [facility] Date(s): 06/24/22 - 06/24/[address] [address] Encounter Diagnosis COPD exacerbation(Final) - 06/24/22 Discharge Disposition: A-D/C AMA Attending Physician: Justa Vicente MD Admitting Physician: Justa Vicente MD Referring Physician: Not on Staff, Referring MD Allergies, Adverse Reactions, Alerts Substance Reaction Severity Status Toradol Morphine allergy Metaxalone Naproxen Cephalexin allergy hives Persistent Mild Active Skelaxin H/O: migraine Active naproxen lesions on lips Active Keflex 1 rash Active 1tolerates pip/tazo [...] 06/27/22 15:03:00 EDT, 06/22/22 15:03:00 EDT, Capsule, [facility], Partial fill upon patient request [...] oral capsule 600 mg, Capsule, By Mouth, 06/24/22 21:00:00 EDT Start Date: 06/24/22 Stop Date: 06/24/22 Status: Completed gabapentin 300 mg oral capsule 600 mg, 2, capsule, By Mouth, 3 times a day, # 180 capsule, Refills 0, Tot. Refills 0, Maintenance,05/16/22 16:21:00 EDT, Route to Pharmacy Electronically, [facility] 3, Partial fill upon patient request [...] tablet, 0 Refills, Maintenance, 06/22/22 15:01:00 EDT, [facility] 3, Partial fill upon patient request [...] Multiple fractures of ribs(Confirmed) 01/06/11 Active [place] (myocardial infarctio n) X 3(Confirmed) Active PVD (peripheral vascular disease)(Confirmed) Active Underweight(Confirmed) Active 1Cardiac stents 1991, 1995 Results Radiology Reports * Exam Date Time Procedure Performing Provider Status 06/24/22 11:59 AM Chest Portable Scott Moreno; Auth ( Verified) Notes: (Chest Portable) Reason For Exam: Shortness of Breath RESULT: Chest Portable Chest Portable Hx of Present Illness: Pt arrives as level one with md and respiratory at bedside. Pt c o increasedsob, seen yesterday, hx copd. Per pt pt left yesterday. Pt denies c p. Pt denies fever chills, n v d, abdominal pain; Reason: Shortness of Breath; Clinical Question(s): Pneumonia COMPARISON: 06/23/2022 FINDINGS: No acute cardiopulmonary process. Stable findings of emphysema. IMPRESSION: No acute abnormality. WSN: [id number] Ordering Physician: Talon Curry MD Dictated By: Judd Hitchcock MD Dictated Date/Time: 06/24/22 12:02 p Reviewed By: Judd Hitchcock MD Signed By: Judd Hitchcock MD Signed Date/Time: 06/24/22 12:02 pm Transcribed By: BERENICE Transcribed Date/Time: 06/24/22 12:01 pm Vital Signs Most recent to oldest [Reference Range]: 1 2 3 Height 183 cm (06/24/22 7:38 PM) 183 cm (06/24/22 5:25 PM) Weight 53.2 kg (06/24/22 5:25 PM) Oxygen Saturation [94-100 %] 100 % (06/24/22 7:38 PM) 97 % (06/24/22 4:29 PM) 99 % (06/24/22 2:11 PM) Pulse Rate [55-90 bpm] 85 bpm (06/24/22 7:38 PM) 81 bpm (06/24/22 4:29 PM) 84 bpm (06/24/22 2:11 PM) Body Mass Index [18.5-24.99] 15.89 *L* (06/24/22 5:25 PM) Blood Pressure [90-138/55-84 mm Hg] 135/83mm Hg (06/24/22 7:38 PM) 134/83mm Hg (06/24/22 4:29 PM) 148/70mm Hg *H* (06/24/22 2:11 PM) Respiratory Rate [16-30 br/min] 19 br/min (06/24/22 9:14 PM) 18 br/min (06/24/22 8:14 PM) 17 br/min (06/24/22 7:38 PM) Temperature [96.8-100.4 DegF] 97.7 DegF (06/24/22 7:38 PM) Liters per Minute 3 L/min (06/24/22 7:38 PM) 4 L/min (06/24/22 12:31 PM) Mode of Delivery (Oxygen) Nasal cannula (06/24/22 7:38 PM) Nasal cannula (06/24/22 12:31 PM) Room air (06/24/22 12:30 PM) Blood pressure sites Arm, left (06/24/22 7:38 PM) Arm, left (06/24/22 12:30 PM) Temperature Route Oral (06/24/22 7:38 PM) Oral (06/24/22 11:11 AM) Weight Obtained Via Bed scale (06/24/22 5:25 PM) Social History Social History Type Response Tobacco Use: 4 or less cigar ettes(less than 1/4 pack)/day in last 30 days. Sex
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
--- OUTSIDE RECORDS SUMMARY | 2023-08-15 20:26 | XMS_ITS | Continuity of Care Document ---
Author Name Unknown Organization [facility] ter Address [address] [place] [id number]- Care Team Providers Care Glued Wood Tester Name Role Phone Jose LEE MD, Jorge Tsang Primary Care Physician [phone] Encounter [facility] [place] Date(s): 07/09/23 - 08/14/[address] [id number] Attending Physician: Vinnie Hawthorne MD Admitting Physician: Vinnie Hawthorne MD Referring Physician: Gaby Hinson MD Allergies, Adverse Reactions, Alerts Substance Reaction [...] virus vaccine, inactivated 1 10/14/06 Gi rox [id number] 12y+ bivalent booster vax 08/23/22 Recorded SARS-CoV-2 [...] 04/05/18 Recorded Diphth-Tetanus Toxoids Adsorbed(oldterm) 06/04/07 Given 1Admin Note: VIS GIVEN NO EGG ALLERGY [...] opioid drug. Start Date: 07/02/22 Status: Ordered Mohawk Saline 0.65% nasal gel 1 sprays, Nares, Both, 4 times a day, # 22.5 Gm, 0 Refills, Maintenance, 05/12/23 15:41:00 EDT, [facility]/pharmacy #[id number], Partial fill upon patient request if the prescription is for a schedule II opioid drug., 1 sprays Nares, Both 4 times a day, 183, cm, 0... Start Date: 05/12/23 Status: Ordered Bactrim DS Tablet 1, tablet, By Mouth, 2 times a day, Maintenance, 160 Milligram By Mouth 2 times a day for 30 Days drink plenty of fluids; followup with Ortho and ID before this is completed, to discuss long-term plan. May need further weeks of antibiotics., 09... Start Date: 08/08/23 Status: Ordered collagenase topical 250 u/gm ointment See Instructions, Use over right shoulder wound daily, # 90 Gm, 0 Refills, Maintenance, 06/04/23 11:59:00 EDT, Ointment, [facility]/pharmacy #[id number], Partial [...] opioid drug. Start Date: 04/20/23 Status: Ordered dx: left humeral head fracture, Right shoulder septic arthritis dx: left humeral head fracture, Right shoulder septic arthritis, See Instructions, # 1 each, Refills 0, Tot. Refills 0, Maintenance, Bonilla-walker, 07/15/23 11:12:00 EDT, Supply Start Date: 07/15/23 Status: Ordered Eliquis 5 mg oral tablet 1 tablet = 5 mg, By Mouth, 2 times a day, # 60 tablet, 5 Refills, Maintenance, 04/27/23 13:54:00 EDT, Tablet, [facility], Partial fill upon patient request if the prescription is for a schedule II opioid drug., 183, cm, 04/27/23 7:05:00... Start Date: 04/27/23 Stop Date: 10/24/23 Status: Ordered ferrous sulfate 325 mg oral enteric coated tablet 325 mg, 1, tablet, By Mouth, Daily, # 30 tablet, Refills 1, Tot. Refills 1, Maintenance, 06/04/23 12:19:00 EDT, Route to Pharmacy Electronically, [facility]/pharmacy #[id number], Partial fill upon patient requestif the prescription [...] 06/04/23 11:59:00 EDT, Route to Pharmacy Electronically, [facility]/pharmacy #[id number], Partial fill upon patient request if the [...] NARCAN Na... Start Date: 05/12/23 Status: Ordered Narcan 4 mg/0.1 mL nasal spray = 4 mg, Nares, Both, Once, # 2 each, 0 Refills, Soft Stop, 07/26/23 9:12:00 EDT, [facility], Partial fill upon patient request if the prescription is for a schedule II opioid drug., 182, cm, 07/26/23 6:00:00 EDT, Height, 55.7, kg, ... Start Date: 07/26/23 Status: Ordered oxyCODONE 5 mg oral tablet 5 mg, 1, tablet, By Mouth, Every 6 hours, PRN, Refills 0, Tot. Refills 0, Maintenance, as needed for pain, 08/04/23 3:00:00 EDT, Partial fill upon patient request if the prescription is for a schedule II opioid drug. Start Date: 08/04/23 Status: Ordered predniSONE 5 mg oral tablet 3 tablet = 15 mg, By Mouth, Daily, 15 mg daily maintanence dose after the initial taper, # 90 tablet, 0 Refills, Maintenance, 06/08/23 13:43:00 EDT, Tablet, [facility]/pharmacy [...] 0 Refills, Maintenance, 05/06/23 9:44:00 EDT, Tablet, [facility]/pharmacy #[id number], Partial fill upon patient request if the prescription is for a schedule II opioid drug., 182, cm, 05/06/23 7:54:00 EDT, Height,... Start Date: 05/06/23 Status: Ordered Vitamin B1 100 mg oral [...] greater than 40 pack years Confirmed Active COVID-19 2 Confirmed 08/08/23 Active Deep vein thrombosis (DVT) of left lower extremity Confirmed Active GERD (gastroesophageal reflux disease) Confirmed Active Hyperlipidemia Confirmed Active HTN (hypertension) Confirmed Active Hyponatremia Confirmed Active Metabolic alkalosis Confirmed Active Multiple fractures of ribs Confirmed 01/06/11 Active Old PR (myocardial infarction) X 3 Confirmed Active PVD (peripheral vascular disease) Confirmed Active Tobacco dependence Confirmed Active 1Cardiac stents 1991, 1995 2Problem added by Discern Expert Social History Social History Type Response Tobacco Use: 4 or less cigar ettes(less than 1/4 pack)/day in last 30 days. Interested in cessation: Yes. Other: Reports smoked at least 30 years, up to 1-2 PPD at one point.. Type: Cigarettes. Sex Male Patient Care team information Care Team Personnel Name: Glo Camarena RN Position: [facility] RN Member Role: Primary Care Nurse Name: Fatimah Bennett RN Position: [facility] RN Member Role: Primary Care Nurse Name: Mariely Hardy RN Position: [facility] RN Member Role: Primary Care Nurse Name: Marleen Uriarte RN Position: [facility] RN Member Role: Primary Care Nurse Name: Sydney Zelaya Position: [facility] SN Support Member Role: Lifetime Consulting Physician Name: Judd Barahona RN Position: [facility] RN Member Role: Primary Care Nurse Name: Tayler Blackwell RN Position: [facility] RN Supv Member Role: Primary Care Nurse Name: Mag Harry RN Position: [facility] RN Member Role: Primary Care Nurse Name: An Blount RN Position: [facility] RN Supv Member Role: Primary Care Nurse Name: Guru Whitley RN Position: [facility] RN Member Role: Primary Care Nurse Name: Rebecca Whitley RN Position: [facility] RN Member Role: Primary Care Nurse Name: Marianna Ng RN Position: [facility] RN Member Role: Primary Care Nurse Name: Avani Odell RN Position: [facility] RN Member Role: Primary Care Nurse Name: Lisbet Hickman RN Position: [facility] RN Member Role: Primary Care Nurse Name: Ruben Bello RN Position: [facility] RN Member Role: Primary Care Nurse Name: Araceli Simon RN Position: [facility] RN Member Role: Primary Care Nurse Name: Judi Streeter RN Position: [facility] RN Member Role: Primary Care Nurse Name: Moni Dugan RN Position: [facility] RN Member Role: Primary Care Nurse Name: Jorge Garcia III, MD Position: Reference Physician Member Role: PCP Address: Address: [address] [place] [id number] Name: Misty Nguyen RN Position: [facility] RN Member Role: Primary Care Nurse Name: Hetal Archer LPN Position: [facility] RN Member Role: Primary Care Nurse Name: Joyce Cobb Position: [facility] RN Member Role: Primary Care Nurse Name: Sarwat Aj RN Position: [facility] RN Member Role: Primary Care Nurse Name: César Patel RN Position: [facility] RN Member Role: Primary Care Nurse Name: Cassi Batista RN Position: [facility] RN Member Role: Primary Care Nurse Name: Daija Huitron RN Position: [facility] RN Member Role: Primary Care Nurse Name: Ellis Mayfield RN Position: [facility] RN Supv Member Role: Primary Care Nurse Name: Ayah Robison RN Position: [facility] RN Member Role: Primary Care Nurse Name: Kirstin Enriquez RN Position: [facility] RN Member Role: Primary Care Nurse Name: Radha Moreno RN Position: [facility] RN Member Role: Primary Care Nurse Name: Barb Cueto RN Position: [facility] RN Member Role: Primary Care Nurse Name: Jina Smalls RN Position: [facility] RN Member Role: Primary Care Nurse Name: Laura Clements RN Position: [facility] RN Member Role: Primary Care Nurse Name: Colette Syed RN Position: [facility] RN Member Role: Primary Care Nurse Name: Muriel Daley RN Position: [facility] RN Supv Member Role: Primary Care Nurse Name: Silas Brock RN Position: [facility] RN Member Role: Primary Care Nurse Name: Lakshmi Alonzo Position: [facility] RN Supv Member Role: Primary Care Nurse Name: Jade Valencia LPN Position: [facility] RN Member Role: Primary Care Nurse Name: Cooper Vyas RN Position: [facility] RN Member Role: Primary Care Nurse Name: Christi Gallardo Position: [facility] RN Member Role: Primary Care Nurse Name: Judith Rojas LPN Position: [facility] RN Member Role: Primary Care Nurse Name: Sydney Raza RN Position: [facility] RN Member Role: Primary Care Nurse Name: Josselin Manning Position: [facility] RN Member Role: Primary Care Nurse Name: Rachna Renteria RN Position: [facility] RN Member Role: Primary Care Nurse Name: Zohreh Pink RN Position: [facility] RN Member Role: Primary Care Nurse Name: Sophie Berrios RN Position: [facility] RN Member Role: Primary Care Nurse Name: Grisel Mcgowan RN Position: [facility] RN Member Role: Primary Care Nurse Name: Uyen Mitchell RN Position: [facility] RN Member Role: Primary Care Nurse Name: Nasra Smith NP Position: Reference Physician Member Role: Primary Care Nurse Address: Address: [address] [place] [address] Name: Concepción Hess RN Position: [facility] RN Member Role: Primary Care Nurse Name: Arminda Knox RN Position: [facility] RN Member Role: Primary Care Nurse Name: Silas Knox RN Position: [facility] RN Member Role: Primary Care Nurse Name: Elham Lee RN Position: [facility] AMB Nurse Member Role: Primary Care Nurse Name: Korin Chowdhury Position: [facility] RN Member Role: Primary Care Nurse Name: Dariana Mariee RN Position: [facility] RN Member Role: Primary Care Nurse Name: Ana María Cat RN Position: [facility] RN Member Role: Primary Care Nurse Name: Janet Pacheco RN Position: [facility] RN Member Role: Primary Care Nurse Name: Flor Holley Position: [facility] RN Member Role: Primary Care Nurse Name: Bret Aguirre RN Position: [facility] RN Member Role: Primary Care Nurse Name: Audra Martinez RN Position: [facility] RN Member Role: Primary Care Nurse Name: Aure Purcell RN Position: [facility] RN Member Role: Primary Care Nurse Name: Radha Montano RN Position: [facility] RN Member Role: Primary Care Nurse Name: Shahbaz Bobo RN Position: [facility] RN Member Role: Primary Care Nurse Name: Jimi Coley RN Position: [facility] RN Member Role: Primary Care Nurse Name: Jennifer Yin LPN Position: [facility] RN Member Role: Primary Care Nurse Name: Alina Arce RN Position: [facility] RN Member Role: Primary Care Nurse Name: Judi Krueger RN Position: [facility] RN Member Role: Primary Care Nurse Name: Magdi Patiño RN Position: [facility] RN Member Role: Primary Care Nurse Name: Rosa Elena Davalos RN Position: [facility] RN Member Role: Primary Care Nurse Name: Kasia Lund RN Position: [facility] RN Member Role: Primary Care Nurse Name: Rachna Serrano RN Position: [facility] RN Member Role: Primary Care Nurse Name: Naveen Villalobos RN Position: [facility] RN Member Role: Primary Care Nurse Name: Radha Masterson RN Position: [facility] RN Member Role: Primary Care Nurse Name: Landy Villarreal RN Position: [facility] RN Member Role: Primary Care Nurse Name: Adria Bell RN Position: [facility] RN Member Role: Primary Care Nurse Name: Amy Larios RN Position: [facility] RN Member Role: Primary Care Nurse Name: Berna Hamm RN Position: [facility] RN Member Role: Primary Care Nurse Name: Indira Lindsey RN Position: [facility] SN RN Member Role: Primary Care Nurse Name: Rosa Elena Pope RN Position: [facility] RN Member Role: Primary Care Nurse Name: Florentino Garcia RN Position: [facility] RN Member Role: Primary Care Nurse Name: Cristel Moreno RN Position: [facility] SN RN Member Role: Primary Care Nurse Name: Rosa Elena De León RN Position: [facility] [employer] Agent Member Role: Primary Care Nurse Name: Nell Lagos RN Position: [facility] RN Member Role: Primary Care Nurse Name: Rita Rodriguez RN Position: [facility] RN Member Role: Primary Care Nurse Name: Judi Hamilton RN Position: [facility] RN Member Role: Primary Care Nurse Name: Tulio Pina RN Position: [facility] RN Member Role: Primary Care Nurse Name: Narda Barnes RN Position: [facility] RN Member Role: Primary Care Nurse Name: Zoë Cisse RN Position: [facility] RN Member Role: Primary Care Nurse Name: aPt Bowers RN Position: [facility] SN RN Member Role: Primary Care Nurse Name: Gemma Chavira RN Position: [facility] RN Member Role: Primary Care Nurse Name: Ruy Salcido RN Position: [facility] RN Member Role: Primary Care Nurse Name: Hilaria Aparicio RN Position: [facility] RN Member Role: Primary Care Nurse Name: Carly Rosado RN Position: [facility] RN Supv Member Role: Primary Care Nurse Name: Taryn Rosado RN Position: [facility] RN Member Role: Primary Care Nurse Name: Sydney Rosado RN Position: [facility] RN Member Role: Primary Care Nurse Name: Vidhi Wilkins RN Position: [facility] RN Member Role: Primary Care Nurse Name: Uriel Dumont Position: [facility] RN Member Role: Primary Care Nurse Name: Selene Vazquez RN Position: [facility] RN Member Role: Primary Care Nurse Name: César Gerber RN Position: [facility] RN Member Role: Primary Care Nurse Name: Tayler Kovacs RN Position: [facility] RN Member Role: Primary Care Nurse Name: Dariana Becerra RN Position: [facility] RN Member Role: Primary Care Nurse Name: Leyla Verma LPN Position: [facility] RN Member Role: Primary Care Nurse Name: Rody Mays RN Position: [facility] RN Member Role: Primary Care Nurse Name: Marielos Mixon RN Position: [facility] RN Member Role: Primary Care Nurse Name: Rdaha Flores RN Position: [facility] RN Member Role: Primary Care Nurse Name: Judi Rainey RN Position: [facility] RN Member Role: Primary Care Nurse Name: Hipolito Giles RN Position: [facility] RN Member Role: Primary Care Nurse Name: Rose Kyle RN Position: [facility] [employer] Agent Member Role: Primary Care Nurse Name: Ion Peralta RN Position: [facility] RN Member Role: Primary Care Nurse Name: Nida Gonsalves Position: [facility] RN Member Role: Primary Care Nurse Name: Aimee Salamanca RN Position: [facility] RN Member Role: Primary Care Nurse Name: Jacobo Caceres Position: [facility] RN Member Role: Primary Care Nurse Care Team Related Persons Name: STEVENSON HAMM Address: home [address] [address] Name: MELINA VARMA Address: home Name: GARRY VARMA Address: home [address] [address]
--- OUTSIDE RECORDS SUMMARY | 2023-08-15 20:26 | XMS_ITS | Continuity of Care Document ---
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 Name Role Phone Jose LEE MD, Jorge Tsang Primary Care Physician Encounter [facility] Date(s): 11/14/22 - 11/16/[address] [id number] Discharge Disposition: A-D/C Home Attending Physician: Gonzalo Calle DO Admitting Physician: Yaz AMAYA, Rama Whitmore Referring Physician: Not on Staff, Referring MD Allergies, Adverse Reactions, Alerts Substance Reaction Severity Status naproxen lesions on lips Active Toradol Morphine allergy Metaxalone Naproxen Cephalexin allergy hives Persistent Mild Active Keflex 1 rash Active Skelaxin H/O: migraine Active 1tolerates pip/tazo 11/17 Immunizations Given and Recorded Vaccine Date Status Refusal Reason [id number] 12y+ bivalent booster vax 08/23/22 Recorded SARS-CoV-2 (COVID-19) mRNA-1273 vaccine 1 01/17/22 Recorded [...] 10/08/22 Stop Date: 10/15/22 Status: Ordered gabapentin 100 mg oral capsule 100 mg, Capsule, By Mouth, 11/16/22 9:00:00 EST Start Date: 11/16/22 Stop Date: 11/16/22 Status: Completed guaiFENesin 100 mg/5 mL oral liquid 10 [...] release 25 mg, XL Tablet, By Mouth, 11/16/22 9:00:00 EST Start Date: 11/16/22 Stop Date: 11/16/22 Status: Completed Metoprolol Succinate ER 25 mg [...] Exam Date Time Procedure Performing Provider Status 11/13/22 4:[address] Abd/Pelvis W/ IV Contrast Only Zoë Ramirez; Luis M (Verified) Notes: (CT Abd/Pelvis W/ IV Contrast Only) Reason For Exam: LLQ abdominal pain;Other: RESULT: CT Abd/Pelvis W/ IV Contrast Only CT Abd/Pelvis W/ IV Contrast Only Hx of Present Illness: LLQ abdominal pain; Clinical Question(s): Pancreatitis TECHNIQUE: Spiral CT through the abdomen and pelvis with IV contrast formatted in 3 planes. 100 cc of Omnipaque 300 was administered intravenously. This study was performed without oral contrast. Weight-based protocol using automatic tube modulation was used to optimize exposure parameters. CTDIvol Body: 13.50 mGy, DLP Body: 637 mGy*cm. COMPARISON: CT 10/07/2022 FINDINGS: [employer] Findings, Lines and Tubes: None. Visualized Chest: Mild bibasilar atelectasis. No pleural effusion. The heart is normal in size. No pericardial effusion. Diaphragm: Tiny fat-containing right Bochdalek hernia. Liver: Normal. Gallbladder: No CT evidence of gallbladder pathology. Bile ducts: No biliary ductal dilation. Spleen: Normal. Pancreas: No pancreatic ductal dilation. 1.4 x 1.9 x 1.7 cm cystic lesion again noted at the pancreatic neck (axial 47), unchanged from prior. Adrenal glands: Normal. Kidneys and ureters: No hydronephrosis, stones, or suspicious masses. 1.6 cm cyst in the interpolarleft kidney. Bladder: Obscured by artifact. Reproductive organs: Unremarkable. Stomach, small bowel, and large bowel: The stomach is normal. The small and large bowel are normal in caliber without evidence of obstruction. Appendix: Normal, best seen on coronal 68. Peritoneum and retroperitoneum: Trace free fluid in the pelvis. No pneumoperitoneum. No omental or mesenteric lesions. Lymph nodes: No enlarged lymph nodes. Blood vessels: Severe atherosclerotic vascular calcification but no aneurysm. Bilateral common iliac artery stents are patent. The visualized proximal portions of the bilateral femoral artery bypass grafts are patent. No evidence of venous thrombosis. Abdominal and pelvic wall: Unremarkable. Bones: No acute abnormality. Diffusely decreased bone mineralization. Multilevel disc space narrowing in the lumbar spine. Chronic compression deformities of T12 and L1 with unchanged height loss. Status post laminectomy and fusion at L4-S1. Lucent focus with sclerotic rim seen in the left iliac bone is nonspecific and may reflect prior graft donor site. Old right-sided rib fractures. Status post left hip arthroplasty. IMPRESSION: 1. No acute abnormality in the abdomen and pelvis. No CT evidence of acute pancreatitis. 2. 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 MRI/MRCP of the abdomen can be obtained to further characterize. I have personally reviewed the images and I agree with this report. WSN: [id number] Ordering Physician: Paz Astorga Dictated By: Farhat Leblanc MD Dictated Date/Time: 11/13/22 4:29 pm Reviewed By: Zoë Frazier MD Signed By: Zoë Frazier MD Signed Date/Time: 11/13/22 4:34 pm Transcribed By: BERENICE Transcribed Date/Time: 11/13/22 4:21 pm * Exam Date Time Procedure Performing Provider Status 11/13/22 1:02 PM Chest Portable Freddyshanda CarlaDebbi Asencio (Raymond ified) Notes: (Chest Portable) Reason For Exam: Shortness of Breath RESULT: Chest Portable Examination: Portable chest performed on 11/13/2022. History: Midsternal chest pain. Findings: A frontal view of the chest is compared to a prior study dated 11/12/2022. The cardiac silhouette is within normal limits for size. Prominence of the pulmonary arteries is demonstrated bilaterally. There is a left upper lobe opacity, not identified on the prior study.. Right rib fixation hardware is noted. There is a dislodged screw superiorly, stable. IMPRESSION: Left upper lobe opacity which may represent atelectasis or an infiltrate. Clinical correlation is suggested. WSN: [id number] Ordering Physician: Paz Astorga Dictated By: Mary Bella MD Dictated Date/Time: 11/13/22 1:27 pm Reviewed By: Mary Bella MD Signed By: Mary Bella MD Signed Date/Time: 11/13/22 1:27 pm Transcribed By: BERENICE Transcribed Date/Time: 11/13/22 1:25 pm Vital Signs Most recent to oldest [Reference Range]: 1 2 3 Height 183 cm (11/16/22 8:44 AM) 183 cm (11/15/22 7:59 PM) 183 cm (11/14/22 3:34 PM) Weight 58.6 kg (11/16/22 3:00 AM) 59.8 kg (11/14/22 8:05 AM) 60 kg (11/14/22 12:43 AM) Oxygen Saturation [94-100 %] 100 % (11/16/22 11:00 AM) 100 % (11/16/22 8:44 AM) 97 % (11/16/22 3:00 AM) Pulse Rate [55-90 bpm] 99 bpm *H* (11/16/22 11:00 AM) 90 bpm (11/16/22 9:18 AM) 90 bpm (11/16/22 8:44 AM) Body Mass Index [18.5-24.99 kg/m2] 17.86 kg/m2 *L* (11/14/22 8:05 AM) 17.92 kg/m2 *L* (11/14/22 12:43 AM) 17.92 kg/m2 *L* (11/13/22 9:22 PM) Blood Pressure [90-138/55-84 mm Hg] 115/66mm Hg (11/16/22 11:00 AM) 116/67mm Hg (11/16/22 9:18 AM) 116/67mm Hg (11/16/22 8:44 AM) Respiratory Rate [16-30 br/min] 18 br/min (11/16/22 11:00 AM) 19 br/min (11/16/22 9:19 AM) 20 br/min (11/16/22 8:44 AM) Temperature [96.8-100.4 DegF] 98.4 DegF (11/16/22 11:00 AM) 98.0 DegF (11/16/22 8:44 AM) 98.7 DegF (11/16/22 3:00 AM) Liters per Minute 3 L/min (11/16/22 11:00 AM) 3 L/min (11/16/22 8:44 AM) 2 L/min (11/15/22 3:00 PM) Mode of Delivery (Oxygen) Nasal cannula (11/16/22 11:00 AM) Nasal cannula (11/16/22 8:44 AM) Room air (11/16/22 3:00 AM) Blood pressure sites Arm, left (11/16/22 11:00 AM) Arm, left (11/16/22 8:44 AM) Arm, right (11/16/22 3:00 AM) Temperature Route Oral (11/16/22 11:00 AM) Oral (11/16/22 8:44 AM) Oral (11/16/22 3:00 AM) Dry Weight 59.8 kg (11/14/22 8:05 AM) 60 kg (11/14/22 12:43 AM) 60 kg (11/13/22 9:22 PM) Weight Obtained Via Bed scale (11/16/22 3:00 AM) Patient/family stated (11/13/22 11:42 AM) Social History Social History Type Response Tobacco Use: 4 or less cigar ettes(less than 1/4 pack)/day in last 30 days. Sex Admission evaluation note * Munir AMAYA, Halil: MODIFY Zoë Dickerson MD: MODIFY, MODIFY Zoë Dickerson MD: MODIFY, PERFORM Zoë Dickerson MD: PERFORM, MODIFY Zoë Dickerson MD: MODIFY, MODIFY Zoë Dickerson MD: MODIFY, MODIFY Zoë Dickerson MD: MODIFY Event Display: Admission Note Authored Date: Patient: ??CARLOS BRUMFIELD ? Age:??67 Years?Sex:??Male?:??1955?? Chief Complaint/Reason for Consultation PT coming from home w/ report of CP + bloody stools. cannot reach PCP per patient report History of Present Illness ?? 67-year-old male with history of anemia, CAD, COPD on 2-3 L home O2, right shoulder septic arthritis, chronic lower back pain, chronic left leg pain, presents with chest pain and abdominal pain, as well as, black tarry stools x1 day.?? Patient was in his usual state of health until this morning, started having chest pain that is nonradiating, no pleuritic aspect, but is reproducible on left side.?? He reports black tarry stools x1 day is new x 3 episodes.? Past medical history notable for EGD on May/2022 w/ normal duodenum, irregularities measuring less than 1 cm in the saline and GE junction, and erosions of the stomach compatible with erosive esophagitis, and colonoscopy at outside hospital (He reports a colonoscopy at [facility] 6 months ago), unknown results. 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 On contract. Former smoker. ?? On arrival to the ED, patient found to be afebrile with normal heart rate normal blood pressure saturating 4 L on nasal cannula, with pulse ox at 98% (goal 88- 92).?? Labs demonstrated leukocytosis 13.5 (up from 12 on 11/12) hemoglobin 8.7 (down from 10.5 on 11/12) platelets normal neutrophil predominance 91%.?? Lites normal.?? Bicarb 32 (chronic ), glucose 133, BUN 25 creatinine 0.5, stable.?? Alk phos 196.?? LFTs normal.?? Lipase normal.?? proBNP 566, stable from 634 (11/12) troponin 26, stable x2 (down from prior 11/07 at 37).?? TSH normal.?? UA with negative signs of infection.?? Onchest x-ray found to have left upper lobe opacity concerning for atelectasis versus infiltrate, newfrom 11/12 x-ray with no acute opacity.?? CT abdomen pelvis demonstrated no acute process, stable 1.9 cm cystic lesion at the pancreatic neck.?? Likely a sidebranch of IPMN.?? ( MRI/MRCP of the abdomen can be obtained to further characterize.).?? EKG still pending_. ?? Received aspirin to 243 mg, IV Dilaudid 0.5 mg, Protonix IV, Dilaudid IV 1 mg and a 500 cc bolusof LR. ?? Review of Systems General: Feels ok Cardiovascular: Denies any palpitations. Pulmonary: Denies any shortness of breath, cough, change in sputum production currently. GI: Denies any ??nausea, vomiting, constipation. : Denies any dysuria, difficulty urinating .?? All other systems were reviewed and are negative except for the ones mentioned above. ?? Objective Measurements?? Height: 183 cm (11/13/22) Weight: 60 kg (11/13/22) Dry Weight: 60 kg (11/13/22) Body Mass Index:??17.92 kg/m2??Low (11/13/22) ?? Vital Signs?? Temperature: 98.1 DegF (11/13/22 18:19:00) Temperature Route: Oral (11/13/22 18:19:00) Pulse Rate: 78 bpm (11/13/22 19:33:00) Respiratory Rate: 16 br/min (11/13/22 19:33:00) Systolic Blood Pressure: 103 mm Hg (11/13/22 19:33:00) Diastolic Blood Pressure: 65 mm Hg (11/13/22 19:33:00) Mean Arterial Pressure: 78 mm Hg (11/13/22 19:33:00) Pulse Pressure: 38 mm Hg (11/13/22 19:33:00) Oxygen Saturation: 94 % (11/13/22 19:33:00) Liters per Minute: 4 L/min (11/13/22 18:19:00) Mode of Delivery (Oxygen): Nasal cannula (11/13/22 18:19:00) Early Warning Score: 2 (11/13/22 19:34:16) ?? Pain Scores 1 - 10 Pain Scale Score: 10 (11:42) ?? Precautions No Precautions documented.? Gómez Coma Scale Gómez Coma Score: 15 (11/13/22 11:42:00) Motor Response-Adult: Obeys commands (11/13/22 11:42:00) Response Eye Opening: Spontaneously (11/13/22 11:42:00) Verbal Response-Adult: Oriented and converses (11/13/22 11:42:00) ? Physical Exam Constitutional/Mental Status: Alert, in no distress. Oriented x 3 Skin: No new??rashes or lesions. Head: Normocephalic. Eyes: Pupils are equal, round and reactive to light. Extraocular muscles grossly intact. Ear, Nose and Throat: Oropharynx clear, mucous membranes moist. Ears and nose without masses, lesions or deformities Neck: Supple, Full range of motion without pain or stiffness. Respiratory: Faint end expir wheezes, decreased breath sounds at left lung. Cardiovascular: Regular rate and rhythm, S1 S2 regular. No murmurs, rubs or gallops. Gastrointestinal: Abdomen soft, non-distended. Normal bowel sounds. Using stethoscope to palpate deeply, no tenderness with palpation. Using hands, dramatic response to palpation, out of proportion and delayed. ??No guarding or rebound No masses. Neurologic:?? No focal neurological deficits. Moves all extremities spontaneously. Musculoskeletal: No cyanosis or clubbing. No gross deformities. Spontaneously moves all extremities. No edema. Psychiatric: Demanding and not redirectable. Assessment/Plan Diagnoses In summary, 67-year-old male with history of anemia, CAD, COPD on 2-3 L home O2, right shoulder septic arthritis, chronic lower back pain, chronic left leg pain, presents with chest pain, abdominal pain,??& black tarry stools x1 day.? 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 Hemoglobin is above goal for transfusion at 8.7, down from 11/12 at 10.5, however compared to 11/07, stable at 8.2. CT abdomen pelvis without signs of appendicitis or acute process. UA without concerns for infection Patient urinating without suprapubic tenderness. In ED per provider note, patient refused guiac testing. Plan: Continue IV PPI Trend hemoglobin q8 N.p.o. Treat nausea with Reglan (follow-up QTC) Patient complains of persistent abdominal pain,lidocaine patch. OOP. No more dilaud. Bladder scan Prn If worsening Hb, Consult GI ?? #??Left upper lobe opacity #Leukocytosis Most c/w?? atelectasis. Procal negative so unlikely bacterial??PNA. Plan: Continue to monitor clinically. Start incentive spirometry ?? #Chest pain #Elevated troponin Chest pain is reproducible in nature, therefore it likely MSK in nature.?? Unlikely ACS given troponin stable and downtrending from prior measurements. Patient refusing EKG. Plan: Continue dexigraph operator Can give lidocaine patch as needed as needed to left chest due to suspected MSK etiology ?? #History of COVID-positive #Stable chronic hypoxic respiratory failure #History of COPD Patient chronically on 2 to 3 L of home O2 Presenting symptoms are shortness of breath, fever, chills Lab work-up: No leukocytosis, normal electrolytes. Imaging: CXR with new concern for opacity in left upper lobe. Plan Maintain oxygen saturation between 88 to 92% given COPD PRN duonebs for SOB/wheezing. ?? 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 #Chronic pain Patient only on 2mg PO dilaudid PRN as outpatient. Already recieved more than home dose here. Plan: Do not give IV Dilaudid If complains of persistent pain can give trial gabapentin. ?? #History of coronary artery disease status post stent #PVD #Hypertension Continue, statin, Imdur, metoprolol ??Hold asa for 24 hours ?? #Anxiety, mood disorder Continue home mirtazapine, melatonin, hydroxyzine ?? #History of IBS Dicyclomine as needed ?? #History of alcohol dependence Plan: CIWA scoring. ?? Quality Measures #Code: Full #Diet: NPO #DVT PPX:Hold due to bleed. #Med rec: Patient unwilling to discuss at this time. Dayteam to clarify medications. ?? Zoë Dickerson MD MPH MedPeds PGY-3 [facility]??& Juan Freeman p.[phone] ?? Patient plan discussed with attending, Dr. Amaral ?? (This note was dictated using RipCode software and is prone to errors during interpretation. Any typographical/grammatical errors were not deliberate and please contact me directly for clarifications via pager or Cortext) ?? The patient seen and examined on this date. The case reviewed in detail with admitting resident on this date. I reviewed and agree as above. Dvt, moderate risk. Nabil Amaral MD Histories Allergies Allergies ?(Active and Proposed Allergies Only) Toradol? (Severity: Persistent Mild, Onset: Unknown) ?Reactions: hives, Cephalexin allergy, Naproxen, Metaxalone, Morphine allergy Keflex? (Severity: Unknown severity, Onset: Unknown) ?Reactions: rash ?Comments: tolerates pip/tazo 11/17 Skelaxin? (Severity: Unknown severity, Onset: Unknown) ?Reactions: H/O: migraine naproxen? (Severity: Unknown severity, Onset: Unknown) ?Reactions: lesions on lips ?? Past Medical History/Problem List Active Problems??(17) Anemia Anxiety CAD - Coronary artery disease Chronic low back pain COPD (chronic obstructive pulmonary disease) COPD exacerbation Deep vein thrombosis (DVT) of left lower extremity GERD (gastroesophageal reflux disease) HTN (hypertension) Hyperlipidemia Hyponatremia Metabolic alkalosis Multiple fractures of ribs Old SD (myocardial infarction) X 3 PVD (peripheral vascular disease) Smoking greater than 40 pack years Underweight ?? Past Surgical History Arthrocentesis, aspiration and/or injection, [...] surgeries ?? Social History Alcohol Details:??Use: Never. Details:??Use: Never. [...] Cigarette Use: Never. Details:??Electronic Cigarette Use: Never. ?? Family History Mother: COPD - Chronic obstructive pulmonary disease; Cardiac valve prolapse Father: Stroke Sister (Brinda): Asthma Other (Another sister-): Lupus ?? Travel History Travel Outside [facility]: No Travel Outside [facility]: No Medications Home Medications Acetaminophen (Tylenol 325 mg [...] (Santyl 250 u/gm ointment)?1?lore?Topically?Daily?left lateral leg ulcer Dexamethasone (dexamethasone 6 mg oral tablet)?1?tab(s)?6?Milligram?By Mouth?Daily?for 7?Days Dicyclomine (dicyclomine 10 mg oral capsule)?1?capsule?10?Milligram?By Mouth?4 times a day Docusate (docusate sodium 100 mg oral capsule)?1?capsule?100?Milligram?By Mouth?Daily?as needed?constipation Duloxetine (duloxetine 60 mg oral enteric coated capsule)?1?capsule?60?Milligram?By Mouth?Daily Ferrous Sulfate (ferrous sulfate 325 mg oral enteric coated tablet)?325?Milligram?1?tablet?By Mouth?Daily Gabapentin (gabapentin 100 mg oral capsule)?100?Milligram?1?capsule?By Mouth?2 times a day?for 7?Days Guaifenesin (guaiFENesin 100 mg/5 mL oral liquid)?10?Milliliter?200?Milligram?By Mouth?Every 4 hours?as needed?for cough Hydromorphone (HYDROmorphone 2 mg oral tablet)?1?tab(s)?2?Milligram?By Mouth?2 [...] 15 mg oral tablet)?0.5?tab(s)?7.5?Milligram?By Mouth?Daily at bedtime nalOXONE (naloxone 4 mg/0.1 mL nasal spray)?INSTILL 1 SPRAY INTRANASALLY NEEDED FOR SIGNS OF NARCOTIC OVERDOSE Nicotine (nicotine 21 mg/24 hr transdermal film, extended release)?1?patch(es)?Topically?Daily Pantoprazole (pantoprazole 40 mg oral delayed release tablet)?1?tab(s)?40?Milligram?By Mouth?Daily Pantoprazole (Protonix 40 mg oral delayed release tablet)?1?tab(s)?40?Milligram?By Mouth?Daily?for 7?Days Senna (Senna 8.6 mg oral tablet)?8.6?Milligram?1?tab(s)?By Mouth?Daily at bedtime Sodium Biphosphate-Sodium Phosphate (Fleet Enema 19 gm-7 gm rectal enema)?1?Each?Rectally?Once?as needed?as needed for constipation Thiamine (Vitamin B1 100 mg oral tablet)?100?Milligram?1?tablet?By Mouth?Daily umeclidinium (Incruse Ellipta 62.5 mcg/inh inhalation powder)?1?puff(s)?Inhalation?Every 24 hours Warfarin (warfarin 5 mg oral tablet)?1?tab(s)?5?Milligram?By Mouth?Daily Results Recent Labs BLOOD COUNT & DIFF WBC 13.5 k/mm3 (High)?? 11/13/2022 12:24 RBC 3.34 m/mm3 (Low)?? 11/13/2022 12:24 Hgb 8.7 Gm/dL (Low)?? 11/13/2022 12:24 Hct 29.5 % (Low)?? 11/13/2022 12:24 MCV 88.3 femtoliters ()?? 11/13/2022 12:24 MCH 26.0 pg (Low)?? 11/13/2022 12:24 MCHC 29.5 g/dL (Low)?? 11/13/2022 12:24 Platelet Count 368 k/mm3 ()?? 11/13/2022 12:24 RDW-SD 58.6 femtoliters (High)?? 11/13/2022 12:24 MPV 9.3 femtoliters (Low)?? 11/13/2022 12:24 Nucleated RBC (Automated) 0.0 #/100 WBC'S ()?? 11/13/2022 12:24 Abs. NRBC 0.0 k/mm3 ()?? 11/13/2022 12:24 Abs. Neut 12.3 k/mm3 (High)?? 11/13/2022 12:24 Abs. Lymph 0.5 k/mm3 (Low)?? 11/13/2022 12:24 Abs. [place] 0.6 k/mm3 ()?? 11/13/2022 12:24 Abs. Eo 0.0 k/mm3 ()?? 11/13/2022 12:24 Abs. Baso 0.0 k/mm3 ()?? 11/13/2022 12:24 Neut % 91.0 % (High)?? 11/13/2022 12:24 Lymph % 3.4 % (Low)?? 11/13/2022 12:24 [place] % 4.4 % (Low)?? 11/13/2022 12:24 Eos % 0.0 % ()?? 11/13/2022 12:24 Baso % 0.1 % ()?? 11/13/2022 12:24 Imm Gran 1.1 % ()?? 11/13/2022 12:24 Abs. Imm Gran 0.2 k/mm3 ()?? 11/13/2022 12:24 ?? CARDIAC Nt-Probnp 566 pg/mL (High)?? 11/13/2022 12:24 High Sensitivity Troponin (HSTnT) 26 ng/L (High)?? 11/13/2022 19:00 ?? CHEM GENERAL Sodium 143 mmol/L ()?? 11/13/2022 12:24 Potassium 4.3 mmol/L ()?? 11/13/2022 12:24 Chloride 101 mmol/L ()?? 11/13/2022 12:24 Bicarbonate Level 32 mmol/L (High)?? 11/13/2022 12:24 Anion Gap 10 ()?? 11/13/2022 12:24 Glucose Level 133 mg/dL (High)?? 11/13/2022 12:24 BUN 25 mg/dL (High)?? 11/13/2022 12:24 Creatinine-Blood 0.5 mg/dL (Low)?? 11/13/2022 12:24 Estimated GFR Creatinine 111 ML/MIN/1.73 M2 ()?? 11/13/2022 12:24 Calcium 8.8 mg/dL ()?? 11/13/2022 12:24 Magnesium 1.8 mg/dL ()?? 11/13/2022 12:24 Protein, Total 6.1 Gm/dL (Low)?? 11/13/2022 12:24 Albumin 3.4 Gm/dL ()?? 11/13/2022 12:24 AG Ratio 1.3 ()?? 11/13/2022 12:24 Alkaline Phosphatase 196 units/L (High)?? 11/13/2022 12:24 Lipase 25 units/L ()?? 11/13/2022 12:24 AST (SGOT) 19 units/L ()?? 11/13/2022 12:24 ALT (SGPT) 19 units/L ()?? 11/13/2022 12:24 Bilirubin, Total 0.3 mg/dL ()?? 11/13/2022 12:24 Lactate 2.1 mmol/L ()?? 11/12/2022 16:50 ?? COAG INR 1.1 ()?? 11/13/2022 18:51 Protime (PT) 11.1 seconds ()?? 11/13/2022 18:51 ?? ENDOCRINE/TUMOR MARKER TSH 0.43 uIU/mL ()?? 11/13/2022 12:24 ?? HEME OTHER Hold Lavender Top SPECIMEN DISCARDED AFTER 24 HOURS. ()?? 11/12/2022 17:00 Hold Blue Top SPECIMEN DISCARDED AFTER 4 HOURS. ()?? 11/13/2022 12:24 ?? MISC. CHEMISTRY Hold Green Top SPECIMEN DISCARDED AFTER 1 WEEK ()?? 11/12/2022 17:00 ?? UA/URINALYSIS Appear/Color, Urine LIGHT YELLOW ()?? 11/12/2022 20:52 Specific [place], Urine 1.021 ()?? 11/12/2022 20:52 pH, Urine 6.0 ()?? 11/12/2022 20:52 Albumin, Urine TRACE (Abnormal)?? 11/12/2022 20:52 Glucose, Urine NEGATIVE ()?? 11/12/2022 20:52 Ketones, Urine NEGATIVE ()?? 11/12/2022 20:52 Bilirubin, Urine NEGATIVE ()?? 11/12/2022 20:52 Hemoglobin, Urine 2+ (Abnormal)?? 11/12/2022 20:52 Nitrite, Urine NEGATIVE ()?? 11/12/2022 20:52 Leukocyte, Urine NEGATIVE ()?? 11/12/2022 20:52 Urobilinogen NORMAL mg/dL ()?? 11/12/2022 20:52 WBC's, Urine 1 /HPF ()?? 11/12/2022 20:52 RBC's, Urine 13 /HPF (High)?? 11/12/2022 20:52 Hold Urine Culture Testing available 48 hours from time of collection. ()?? 11/12/2022 20:52 ? EKG study * Event Display: ECG 12-Lead Authored Date: Please click on pdf link to open report * Event Display: ECG 12-Lead Authored Date: Ventricular Rate: 66 BPM Atrial Rate: 66 BPM P-R Interval: 136 ms QRS Duration: 108 ms Q-T Interval: 396 ms QTC Calculation(Bazett): 415 ms P [place]: 73 degrees R [place]: -2 degrees T [place]: 72 degrees Normal sinus rhythm Incomplete right bundle branch block Borderline ECG When compared with ECG of 13-NOV-2022 12:39, Aberrant conduction is no longer Present Confirmed by AMEYA SHELTON MD ([id number]) on 11/15/2022 10:35:15 AM [place]: AMEYA SHELTON MD * Event Display: ECG 12-Lead Authored Date: Please click on pdf link to open report * Event Display: ECG 12-Lead Authored Date: Ventricular Rate: 76 BPM Atrial Rate: 76 BPM P-R Interval: 136 ms QRS Duration: 92 ms Q-T Interval: 384 ms QTC Calculation(Bazett): 432 ms P [place]: 75 degrees R [place]: -39 degrees T [place]: 67 degrees Sinus rhythm with Premature atrial complexes with Aberrant conduction Left axis deviation Abnormal ECG When compared with ECG of 12-NOV-2022 16:22, Aberrant conduction is now Present Confirmed by ASHLEY DOMÍNGUEZ MD ([id number]) on 11/14/2022 10:41:54 AM [place]: [facility] Progress note * Tayler Tadeo RN: PERFORM, SIGN, VERIFY Event Display: Progress Note Hospital Authored Date: Patient: CARLOS BRUMFIELD Age: 67 years Sex: Male : 1955 Associated Diagnoses: None Author: Tayler Tadeo RN Findings Problem Related to Alteration in Comfort 11/16/2022 7:00 EST Alteration in Comfort Related to Injury Goals & Outcomes: Comfort Pt will report acceptable level of comfort & pain control Interventions Implemented: Comfort Assess pain using appropriate pain scale/tools, Assess aggravating factors & prevent them accordingly, Assess alleviating factors & promote them accordingly BH Goals/Interventions, Comfort Yes Comfort, Problem Start 11/14/2022 21:00 Reviewed plan with, Comfort Patient Patient Progression, Comfort Pt progressing according to plan Comfort, Problem Ongoing Yes . Nursing Data Vital Signs : VITAL SIGNS SECTION 11/16/2022 3:00 EST Temperature 98.7 DegF Temperature Route Oral Pulse Rate 78 bpm Respiratory Rate 16 br/min Systolic Blood Pressure 105 mm Hg Diastolic Blood Pressure 67 mm Hg Blood pressure sites Arm, right Pulse Pressure 38 mm Hg Oxygen Saturation 97 % Mode of Delivery (Oxygen) Room air 11/15/2022 23:25 EST Respiratory Rate 18 br/min 11/15/2022 23:00 EST Temperature 98.8 DegF Temperature Route Oral Pulse Rate 68 bpm Respiratory Rate 18 br/min Systolic Blood Pressure 100 mm Hg Diastolic Blood Pressure 62 mm Hg Blood pressure sites Arm, left Pulse Pressure 38 mm Hg Oxygen Saturation 98 % Mode of Delivery (Oxygen) Room air 11/15/2022 22:25 EST Respiratory Rate 18 br/min 11/15/2022 19:59 EST Temperature 98.5 DegF Temperature Route Oral Pulse Rate 70 bpm Respiratory Rate 18 br/min Systolic Blood Pressure 145 mm Hg H Diastolic Blood Pressure 75 mm Hg Blood pressure sites Arm, left Mean Arterial Pressure 98 mm Hg Pulse Pressure 70 mm Hg Oxygen Saturation 97 % Mode of Delivery (Oxygen) Room air . Evaluation Mr. Brumfield is A&Ox3 and is able to make his needs known to staff. VSS and LS clear with dimbases on room air. Pt denied SOB but had an occasional productive cough. Pt complained of generalized pain overnight. Pt did not want to receive Tylenol at the start of the shift. Pt endorsed his pain increased overnight and his Dilaudid was given this morning as ordered with positive effect. Pt had a BM overnight. Pt resting in bed in the lowest locked position. Safety measures implemented. See CIS for full assessment. . Discharge Information Case Management Discharge Plan : Case Management Discharge Plan Data 11/12/2022 23:25 EST Discharge Level of Care at Discharge Home/Alf/Foster Care * Yazjuan AMAYA, Rama Whitmore: MODIFY, MODIFY, PERFORM Event Display: Progress Note Hospital Authored Date: [id number] Patient: ??CARLOS BRUMFIELD ? Age:??67 Years?Sex:??Male?:??1955?? Subjective The patient was seen and examined today. No bowel movement today, Hb has been stable. He complaints of right shoulder pain from rotator cuff tear. He denies any chest pain, palpitations, SOB or abdominal pain. Review of Systems ROS as noted in the subjective. Objective ?? Physical Exam Recent Vital Signs Temperature: 98.5 DegF (11/15/22 19:59:00) Pulse Rate: 70 bpm (11/15/22 19:59:00) Respiratory Rate: 18 br/min (11/15/22 19:59:00) Systolic Blood Pressure:??145 mm Hg??High (11/15/22 19:59:00) Diastolic Blood Pressure: 75 mm Hg (11/15/22 19:59:00) Oxygen Saturation: 97 % (11/15/22 19:59:00)? General Appearance: Adult male, NAD. Cardiovascular: RRR S1 and S2 heard with no M/R/G. Respiratory: ??Breath sounds clear to auscultation bilaterally. No wheezing or crackles. GI: Soft. Nontender and nondistended. BS are present.?? MS: ??No edema or erythema in the lower extremities. Neuro: ??No slurred speech. ??Patient seen moving their upper and lower extremities independently. Psych: Alert and oriented x3. Lines: Peripheral IV in place.?? _ Inpatient Medications Medications (24) Active SCHEDULED: (13) Aspirin 81 mg EC Tablet (Aspirin Tablet) ??81 mg, By Mouth, Daily Atorvastatin 80 mg Tablet (atorvastatin 80 mg oral tablet) ??80 mg, By Mouth, Daily at bedtime Breo Ellipta 200 mcg / 25 mcg Inhaler (Breo Ellipta 200 mcg-25 mcg Inhaler) ??1 puffs, Inhalation, Daily Dicyclomine 10 mg Capsule (dicyclomine 10 mg oral capsule) ??10 mg 1 capsule, By Mouth, 4 times a day Duloxetine 60 mg Capsule (DULoxetine Capsule) ??60 mg, By Mouth, Daily Ferrous Sulfate 325 mg EC Tablet (ferrous sulfate 325 mg oral enteric coated tablet) ??325 mg, By Mouth, Daily Gabapentin 100 mg Capsule (gabapentin 100 mg oral capsule) ??100 mg, By Mouth, 2 times a day Isosorbide Dinitrate 5 mg Tablet (isosorbide dinitrate 5 mg oral tablet) ??30 mg, By Mouth, Daily Metoprolol 25 mg XL Tablet (metoprolol 25 mg oral tablet, extended release) ??25 mg, By Mouth, Daily Mirtazapine 15 mg Tablet (mirtazapine 15 mg oral tablet) ??7.5 mg, By Mouth, Daily at bedtime NaCl 0.9% Flush 3ml (NaCL 0.9% Flush) ??3 mL, IV Push, Every 8 hours Pantoprazole 40 mg EC Tablet (pantoprazole 40 mg oral delayed release tablet) ??40 mg, By Mouth, 2 times a day Warfarin 5 mg Tablet (Warfarin Tablet) ??5 mg, By Mouth, Daily CONTINUOUS: (0) PRN: (11) Acetaminophen 325 mg Tablet (Acetaminophen Tablet) ??650 mg, By Mouth, Every 4 hours Albuterol/Ipratropium Inhalation Marilin 3mL (Duoneb Inhalation Solution) ??1 vials, BAND Nebulizer, Every 4 hours Dextromethorphan-Guaifenesin 20 mg-200 mg/10 mL Liqu UD (Robitussin DM Liquid) ??10 mL, By Mouth, Every 4 hours HYDROmorphone 2 mg Tablet (HYDROmorphone 2 mg oral tablet) ??2 mg, By Mouth, 2 times a day HydrOXYzine HCL 10mg Tablet (hydrOXYzine hydrochloride 10 mg oral tablet) ??10 mg, By Mouth, 2 times a day Melatonin 3 mg Tablet (Melatonin Tablet) ??9 mg, By Mouth, Daily at bedtime Metoclopramide 5 mg/mL Inj (2 mL) (Reglan Inj) ??5 mg, IV Push Slowly, Every 6 hours NaCl 0.9% Flush 3ml (NaCL 0.9% Flush) ??3 mL, IV Push, Every 8 hours Polyethylene Glycol 17 Gm Powder (MiraLax Powder) ??17 Gm 1 pack/packet, By Mouth, Daily Senna 8.6 mg / Docusate 50 mg tablet (Docusate/Senna Tablet) ??1 tablet, By Mouth, 2 times a day Simethicone 80 mg Chewable Tablet (Simethicone Tablet) ??80 mg, Chew, 3 times a day ? Assessment/Plan 67-year-old male with history of anemia, CAD, COPD on 2-3 L home O2, right shoulder septic arthritis, chronic lower back pain, chronic left leg pain, presents with chest pain, abdominal pain,??& black tarry stools x1 day.? 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 - Hemoglobin is above goal for transfusion at 8.7, down from 11/12 at 10.5, however compared to 11/07, stable at 8.2. - CT abdomen pelvis without signs of appendicitis or acute process. - UA without concerns for infection - Patient urinating without suprapubic tenderness. - In ED per provider note, patient refused guiac testing. - 11/14: Patient's hemoglobin remained stable at his baseline??8.2-8.3. ??He has not had blood in his stool during bowel movement in the ED.?? Hemodynamically remained stable.?? No concern for activeGI bleed at this time. - 11/15: Hb continues to be stable Protonix PO 40 mg BID Will advance to dental soft diet Started on his home??medications including dicyclomine and oral Dilaudid 2 mg twice daily as needed Treat nausea with Reglan (follow-up QTC) ?? Left upper lobe opacity Leukocytosis - Most c/w?? atelectasis. Procal negative so unlikely bacterial??PNA. - Plan: Continue to monitor clinically. Start incentive spirometry ?? Chest pain Elevated troponin - Chest pain is reproducible in nature, therefore it likely MSK in nature.?? - Unlikely ACS given troponin stable and downtrending from prior measurements. - Patient refused EKG - Plan: Continue dexigraph operator Can give lidocaine patch as needed as needed to left chest due to suspected MSK etiology ?? History of COVID-positive Stable chronic hypoxic respiratory failure History of COPD - Patient chronically on 2 to 3 L of home O2 - Presenting symptoms are shortness of breath, fever, chills - Lab work-up: No leukocytosis, normal electrolytes. - Imaging: CXR with new concern for opacity in left upper lobe. - Plan Maintain oxygen saturation between 88 to 92% given COPD PRN Duonebs for SOB/wheezing. Isolation??will be completed on 11/15, off isolation on 11/16 ?? 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 - Currently no S/S of bleeding and Hb stable so will resume warfarin - Plan: Resume warfarin 5 mg daily INR daily ?? Chronic pain - Patient only on 2mg PO Dilaudid bid PRN as outpatient - Plan: Avoid IV Dilaudid??unless indicated (see ED care plan) Continue??home??oral Dilaudid dosing of 2 mg twice daily (will not increase dose/ change it more frequent) Resume home gabapentin ?? History of coronary artery disease status post stent PVD Hypertension Continue, statin, Imdur, metoprolol Resume aspirin ?? Anxiety, mood disorder Continue home mirtazapine, melatonin, hydroxyzine ?? History of IBS Dicyclomine as needed ?? History of alcohol dependence Plan: CIWA scoring. ?? Miscellaneous #Code: Full #Diet: NPO #DVT PPX:Hold due to bleed. ?? OMN: PT eval Plan for discharge tomorrow after PT eval??if Hb remains stable. * Tayler Tadeo RN: VERIFY, PERFORM, SIGN Event Display: Progress Note Hospital Authored Date: [id number] Patient: CARLOS BRUMFIELD Age: 67 years Sex: Male : 1955 Associated Diagnoses: None Author: Tayler Tadeo RN Findings Problem Related to Alteration in Comfort : Alteration in Comfort/new 11/15/2022 7:00 EST Alteration in Comfort Related to Injury Goals & Outcomes: Comfort Pt will report acceptable level of comfort & pain control Interventions Implemented: Comfort Assess pain using appropriate pain scale/tools, Assess aggravating factors & prevent them accordingly, Assess alleviating factors & promote them accordingly BH Goals/Interventions, Comfort Yes Comfort, Problem Start 11/14/2022 21:00 Reviewed plan with, Comfort Patient Patient Progression, Comfort Plan Initiation Comfort, Problem Ongoing Yes . Nursing Data Vital Signs : VITAL SIGNS SECTION 11/15/2022 3:00 EST Temperature 98.3 DegF Temperature Route Oral Pulse Rate 64 bpm Respiratory Rate 18 br/min Systolic Blood Pressure 99 mm Hg Diastolic Blood Pressure 60 mm Hg Blood pressure sites Arm, right Pulse Pressure 39 mm Hg Oxygen Saturation 95 % Liters per Minute 3 L/min Mode of Delivery (Oxygen) Nasal cannula 11/14/2022 23:00 EST Temperature 98.2 DegF Temperature Route Oral Pulse Rate 61 bpm Respiratory Rate 18 br/min Systolic Blood Pressure 96 mm Hg Diastolic Blood Pressure 52 mm Hg L Blood pressure sites Arm, right Pulse Pressure 44 mm Hg Oxygen Saturation 97 % Liters per Minute 3 L/min Mode of Delivery (Oxygen) Nasal cannula 11/14/2022 22:10 EST Respiratory Rate 18 br/min 11/14/2022 20:00 EST Temperature 98.8 DegF Temperature Route Oral Pulse Rate 67 bpm Respiratory Rate 18 br/min Systolic Blood Pressure 121 mm Hg Diastolic Blood Pressure 62 mm Hg Blood pressure sites Arm, right Pulse Pressure 59 mm Hg Oxygen Saturation 96 % Liters per Minute 3 L/min Mode of Delivery (Oxygen) Nasal cannula . Evaluation Mr. Brumfield is A&Ox3 and is able to make his needs known to staff. VSS and LS clear on room air with dim bases. Pt complained of generalized pain related to an old shoulder injury. PRN Tylenoland Dilaudid given as ordered. Pt resting comfortably in bed. Bed in lowest locked position with call giraldo in reach. Safety measures implemented. See CIS for full assessment.. Discharge Information Case Management Discharge Plan : Case Management Discharge Plan Data 11/12/2022 23:25 EST Discharge Level of Care at Discharge Home/Alf/Foster Care Note * Dariana Becerra RN: PERFORM Event Display: Discharge/Transfer Note Hospital Authored Date: Nursing Discharge Note Entered On: 11/16/2022 12:55 EST Performed On: 11/16/2022 12:55 EST by Dariana Becerra RN Nursing Discharge Note 2 Discharge Time : 11/16/2022 13:25 EST Discharge Comments : IV D/C'd Zoë Oseguera RN - 11/16/2022 13:41 EST Discharge Level of Care at Discharge : Home/Alf/Foster Care Patient Left Unit Via : Wheelchair Patient Accompanied Off Unit with : Responsible adult, Other: STAFF DC Instructions Provided & Signed by Pt : Yes Patient Understands D/C Instructions : Yes Patient Instructions Discharge Signed : Yes Did Pt have Specialty Bed or Wound Vac : No Dariana Becerra RN - 11/16/2022 12:55 EST * Gonzalo Calle DO: PERFORM Event Display: Discharge/Transfer Note Hospital Authored Date: Patient: ??RINA BRUMFIELDS ? Age:??67 Years?Sex:??Male?:??1955?? Patient Information Discharge Location: W4 Primary Care Physician: Jorge Garcia III, MD Admit Date/Time: 11/14/22 13:52 Discharge Disposition Discharge Disposition: Home: No Services _ Discharge Medications Acetaminophen (Tylenol 325 mg [...] oral liquid)?10?Milliliter?200?Milligram?By Mouth?Every 4 hours?as needed?for cough Hydromorphone (HYDROmorphone 2 mg oral tablet)?1?tab(s)?2?Milligram?By Mouth?2 [...] 15 mg oral tablet)?0.5?tab(s)?7.5?Milligram?By Mouth?Daily at bedtime nalOXONE (naloxone 4 mg/0.1 mL nasal spray)?INSTILL [...] Ellipta 62.5 mcg/inh inhalation powder)?1?puff(s)?Inhalation?Every 24 hours Warfarin (warfarin 5 mg oral tablet)?1?tab(s)?5?Milligram?By Mouth?Daily ? Medications Started None Medications Discontinued None Doses Changed None Allergies Allergies ?(Active and Proposed Allergies Only) Toradol? (Severity: Persistent Mild, Onset: Unknown) ?Reactions: hives, Cephalexin allergy, Naproxen, Metaxalone, Morphine allergy Keflex? (Severity: Unknown severity, Onset: Unknown) ?Reactions: rash ?Comments: tolerates pip/tazo 11/17 Skelaxin? (Severity: Unknown severity, Onset: Unknown) ?Reactions: H/O: migraine naproxen? (Severity: Unknown severity, Onset: Unknown) ?Reactions: lesions on lips ? Future Appointments Tuesday 9:00 AM EST ?? With: Gavin Russell DO Where: [facility] [place] [address]- Hospital Course Carlos is a 67-year-old gentleman with a past medical history of anemia, CAD, COPD on 2 to 3 L oxygen at home, right shoulder septic arthritis, chronic low back pain, chronic leg pain who presentedto the hospital in the setting of abdominal pain concern for tarry stool.?? Patient underwent a CT of the abdomen and pelvis without any signs of appendicitis or any other acute processes and additionally underwent a UA that was negative and a chest x-ray that showed a left upper lobe opacity however procalcitonin was negative and patient has been afebrile and without significant leukocytosis andas such was thought to be unlikely to represent a pneumonia.?? Patient bowel movements and hemoglobin were monitored in the hospital and patient had no other episodes of dark tarry stool and his hemoglobin has been stable/uptrending since his presentation.?? Patient already has outpatient follow-upwith gastroenterology and given no further signs of abdominal pain or blood in bowel movements he was deemed appropriate for discharge and discharged from the hospital.?? Patient was evaluated by physical therapy who recommended home with services, unfortunately given patient has refused service somany times in the past they could not be set up and are no longer being signed off by his primary care physician.?? Will defer to primary care for further discussion with patient as to if services are appropriate and can be set up and if patient will be compliant with this.?? At time of discharge patient has been reinitiated on his warfarin and has been without any bleeding.?? Patient hemodynamically stable and ready for discharge from the hospital. ?? Abdominal pain Tarry stools Anemia Patient with a known history of Dana-Shepard tear in the past.?? He was found to have a mild drop in his hemoglobin however has been stable and actually uptrending after reinitiation of anticoagulation.?? He underwent a CT of the abdomen and pelvis which was without any acute concerns and patient already has outpatient follow-up with gastroenterology. ??? Continue Protonix ??? Outpatient follow-up with GI ?? Troponinemia Chest pain Patient with reproducible chest pain that is likely MSK in nature.?? He underwent a troponin that was stable through repeats and patient was refusing an EKG.?? Given reproducible nature of the chest pain as well as stable troponin unlikely to be ACS.?? Patient provided with lidocaine patch for pain. ?? History of COPD on 2-3 L Chronic hypoxic respiratory failure COVID-positive Patient with a baseline oxygen requirement of 2 to 3 L.?? He has not had any change in his oxygen requirement since presentation to the hospital.?? He is notably positive for COVID back on 11/05 and will be off isolation today. ??? Continue home oxygen ??? Continue home inhalers ?? History of recurrent DVTs: Continue home warfarin, outpatient INR as per following provider Chronic pain: Continue home medications Coronary artery disease: Continue aspirin, statin, Imdur and metoprolol Anxiety: Continue home mirtazapine and hydroxyzine IBS: Continue home dicyclomine as needed Objective Vital Signs?? Temperature: 98.4 DegF (11/16/22 11:00:00) Temperature Route: Oral (11/16/22 11:00:00) Pulse Rate:??99 bpm??High (11/16/22 11:00:00) Respiratory Rate: 18 br/min (11/16/22 11:00:00) Systolic Blood Pressure: 115 mm Hg (11/16/22 11:00:00) Diastolic Blood Pressure: 66 mm Hg (11/16/22 11:00:00) Blood pressure sites: Arm, left (11/16/22 11:00:00) Mean Arterial Pressure: 83 mm Hg (11/16/22 08:44:00) Pulse Pressure: 49 mm Hg (11/16/22 11:00:00) Oxygen Saturation: 100 % (11/16/22 11:00:00) Liters per Minute: 3 L/min (11/16/22 11:00:00) Mode of Delivery (Oxygen): Nasal cannula (11/16/22 11:00:00) Early Warning Score: 0 (11/16/22 11:34:14) ? . Physical Exam General Appearance: NAD. Eyes:??No scleral icterus. ENT: ??MM moist. Dentition intact. Cardiovascular: RRR S1 and S2 heard with no M/R/G. Respiratory: ??Breath sounds clear to auscultation bilaterally. GI: Soft. Nontender and nondistended. Normal bowel sounds present throughout abdomen. MS: ??No edema or erythema in the lower extremities. Skin:??No rashes seen on chest, abdomen, or back. ? Neuro: ??No slurred speech. Moving upper and lower extremities spontaneously. Psych: Alert and oriented x3.?? Follow-Up Appointments Added Follow Up ?Time Frame ?Comments Jose LEE MD, Jorge Tsang?3-5 day: call to discuss follow up visit Results Discharge Labs BLOOD COUNT & DIFF WBC 11.7 k/mm3 (High)?? 11/16/2022 02:01 RBC 3.63 m/mm3 (Low)?? 11/16/2022 02:01 Hgb 9.4 Gm/dL (Low)?? 11/16/2022 02:01 Hct 31.3 % (Low)?? 11/16/2022 02:01 MCV 86.2 femtoliters ()?? 11/16/2022 02:01 MCH 25.9 pg (Low)?? 11/16/2022 02:01 MCHC 30.0 g/dL (Low)?? 11/16/2022 02:01 Platelet Count 334 k/mm3 ()?? 11/16/2022 02:01 RDW-SD 55.0 femtoliters (High)?? 11/16/2022 02:01 MPV 8.9 femtoliters (Low)?? 11/16/2022 02:01 Nucleated RBC (Automated) 0.0 #/100 WBC'S ()?? 11/16/2022 02:01 Abs. NRBC 0.0 k/mm3 ()?? 11/16/2022 02:01 Abs. Neut 10.1 k/mm3 (High)?? 11/14/2022 06:14 Abs. Lymph 0.9 k/mm3 ()?? 11/14/2022 06:14 Abs. [place] 0.9 k/mm3 ()?? 11/14/2022 06:14 Abs. Eo 0.0 k/mm3 ()?? 11/14/2022 06:14 Abs. Baso 0.0 k/mm3 ()?? 11/14/2022 06:14 Neut % 84.2 % (High)?? 11/14/2022 06:14 Lymph % 7.2 % (Low)?? 11/14/2022 06:14 Newport % 7.5 % ()?? 11/14/2022 06:14 Eos % 0.0 % ()?? 11/14/2022 06:14 Baso % 0.1 % ()?? 11/14/2022 06:14 Imm Gran 1.0 % ()?? 11/14/2022 06:14 Abs. Imm Gran 0.1 k/mm3 ()?? 11/14/2022 06:14 ?? CARDIAC Nt-Probnp 566 pg/mL (High)?? 11/13/2022 12:24 High Sensitivity Troponin (HSTnT) 29 ng/L (High)?? 11/14/2022 00:42 ?? CHEM GENERAL Sodium 138 mmol/L ()?? 11/16/2022 02:01 Potassium 3.8 mmol/L ()?? 11/16/2022 02:01 Chloride 97 mmol/L (Low)?? 11/16/2022 02:01 Bicarbonate Level 33 mmol/L (High)?? 11/16/2022 02:01 Anion Gap 8 ()?? 11/16/2022 02:01 Glucose Level 84 mg/dL ()?? 11/15/2022 04:49 BUN 11 mg/dL ()?? 11/16/2022 02:01 Creatinine-Blood 0.6 mg/dL (Low)?? 11/16/2022 02:01 Estimated GFR Creatinine 107 ML/MIN/1.73 M2 ()?? 11/16/2022 02:01 Calcium 8.8 mg/dL ()?? 11/13/2022 12:24 Phosphorus 2.5 mg/dL ()?? 11/15/2022 04:49 Magnesium 1.7 mg/dL ()?? 11/16/2022 02:01 Protein, Total 6.1 Gm/dL (Low)?? 11/13/2022 12:24 Albumin 3.4 Gm/dL ()?? 11/13/2022 12:24 AG Ratio 1.3 ()?? 11/13/2022 12:24 Alkaline Phosphatase 196 units/L (High)?? 11/13/2022 12:24 Lipase 25 units/L ()?? 11/13/2022 12:24 AST (SGOT) 19 units/L ()?? 11/13/2022 12:24 ALT (SGPT) 19 units/L ()?? 11/13/2022 12:24 Bilirubin, Total 0.3 mg/dL ()?? 11/13/2022 12:24 Vitamin B12 Level 405 pg/mL ()?? 11/14/2022 06:14 Folic Acid Level 4.8 ng/mL ()?? 11/14/2022 06:14 Iron Level 41 mcg/dL (Low)?? 11/14/2022 06:14 Iron Binding Capacity, Unsaturated 185 mcg/dL ()?? 11/14/2022 06:14 Iron Binding Capacity, Estimated Total 226 mcg/dL ()?? 11/14/2022 06:14 % Iron Saturation 18 % (Low)?? 11/14/2022 06:14 Ferritin Level 208 ng/mL ()?? 11/14/2022 06:14 ? COAG INR 1.1 ()?? 11/16/2022 02:01 Protime (PT) 11.5 seconds (High)?? 11/16/2022 02:01 APTT 29.8 seconds ()?? 11/14/2022 02:05 ? ENDOCRINE/TUMOR MARKER TSH 0.43 uIU/mL ()?? 11/13/2022 12:24 ? HEME OTHER Hold Blue Top SPECIMEN DISCARDED AFTER 4 HOURS. ()?? 11/13/2022 12:24 ? IMMUNOLOGY GENERAL Transferrin 184 mg/dL (Low)?? 11/14/2022 06:14 ? MISC. CHEMISTRY Procalcitonin 0.09 ng/mL ()?? 11/13/2022 12:24 ? 33??minutes spent on discharge * Dariana Becerra RN: PERFORM Event Display: Patient Education/Instruction Authored Date: Inpatient Adult Discharge Instructions [address] [address] Name: CARLOS BRUMFIELD : 1955 Visit: 11/14/2022 13:52:00 Current Date: 11/16/2022 12:57 Account: [id number] Inpatient Adult Discharge Instructions We would like [...] and their families. Surveys are administered by [employer]. ?? If further treatment with your primary care physician or another doctor is recommended, it is important for you to keep the appointment. Call your primary care physician or return to the Emergency Department immediately if your condition worsens, fails to improve, or new symptoms develop. If you need to find a doctor, you can call [facility] [employer] for a referral at [phone] or toll free at [phone] or log in to [email or web address].. ?? You can view and manage your care through the patient portal or by using a health care lore of your choosing. [employer] is a website that allows you to [...] office visit. You have been discharged from [facility], Patient Care Unit: W4. If you have any questions regarding these instructions after you leave, please call us and we will be happy to assist you. [facility] Your Care Team Attending Physician Gonzalo Calle DO Discharging Providers Gonzalo Calle DO Reason for Admission PT coming from home w/ report of CP + bloody stools. cannot reach PCP per patient report Your Diagnosis Suspected GI bleed Tests Performed Below is a partial list of the tests performed during your hospitalization. You may have had other tests and procedures not included in this list. Please discuss all test results with your provider. BUN CBC CBC w/ Differential Comprehensive Metabolic Panel Creatinine Electrolytes FERRITIN FOLIC ACID Glucose Level High??Sensitivity??Troponin T Hold Blue Top Tube IRON & TIBC LIPASE Lytes Magnesium Level Mg Level Phosphorus Level ProBNP PROCALCITONIN, SERUM PT (INR) PTT TRANSFERRIN TSH with T4 Reflex (Adults Only) VITAMIN B12 CT Abd/Pelvis W/ IV Contrast Only XR Chest Portable Primary Care Provider Jorge Garcia III, MD Advance Directive Health Care Proxy on File Yes - Health Care Proxy No qualifying data available. Discharge Vitals Temperature: 98.4 DegF Height: 183 cm Pulse Rate:??99 bpm??High Weight: 58.6 kg Respiratory Rate: 18 br/min Body Mass Index:??17.86 kg/m2??Low Systolic Blood Pressure: 115 mm Hg Body surface area: 1.74 Diastolic Blood Pressure: 66 mm Hg ?? Oxygen Saturation: 100 % ?? Studies Pending All tests and labs ordered during this hospital stay have been completed unless listed below. Please discuss all pending results with your provider listed above in these instructions. ?? Add On Lab Order COVID-19 (2019 Novel Coronavirus) PCR Hold Lavender Tube (BB) INR What to do next Instructions From Your Doctor Discharge Orders Scheduled Follow-Up Appointments Tuesday 9:00 AM EST ?? With: Gavin Russell DO Where: [facility] [place] [address]- You Need to Schedule the Following Appointments Follow Up with??Jorge Garcia III, MD When??Within 3-5 day: call to discuss follow up visit Where: [address] [place] [id number]- Discharge Medications CARLOS BRUMFIELD :1955 Visit Date:11/14/2022 Medications: Please continue your medications until treatment is completed or stopped by your provider. Medications not listed below should be discontinued. Discuss any questions related to medications with your provider. What How Much When Instructions Next Dose Changed Pantoprazole (pantoprazole 40 mg oral delayed release tablet) 1 tab(s) Oral Daily 11/17 Unchanged Acetaminophen (Tylenol 325 mg oral tablet) 2 tab(s) Oral Every 8 hours every 8 hours Unchanged Albuterol (Albuterol (Eqv-ProAir HFA) 90 mcg/ inh inhalation aerosol) 2 puff(s) Inhalation Every 6 hours as needed for Wheezing/Shortness of Breath as needed Unchanged Aspirin (aspirin 81 mg oral delayed release tablet) 1 tab(s) Oral Daily 11/17 Unchanged Atorvastatin (atorvastatin 80 mg oral tablet) 1 tab(s) Oral Daily at Bedtime 11/16 Unchanged Bisacodyl (bisacodyl 10 mg rectal suppository) 1 suppository(ies) Per rectum Daily as needed for for constipation as needed Unchanged Budesonide-Formoterol (Symbicort 160mcg/ 4.5mcg Inhaler) 2 puff(s) Inhalation Twice a day 11/16 Unchanged Collagenase Topical (Santyl 250 u/ gm ointment) 1 lore Topically Daily left lateral leg ulcer ?? 11/17 Unchanged Dicyclomine (dicyclomine 10 mg oral capsule) 1 capsule Oral 4 times a day 11/16 Unchanged Docusate (docusate sodium 100 mg oral capsule) 1 capsule Oral Daily as needed for constipation as needed Unchanged Duloxetine (duloxetine 60 mg oral enteric coated capsule) 1 capsule Oral Daily 11/17 Unchanged Ferrous Sulfate (ferrous sulfate 325 mg oral enteric coated tablet) 1 tab(s) Oral Daily 11/17 Unchanged Gabapentin (gabapentin 100 mg oral capsule) 1 capsule Oral Twice a day Duration: 7 Days 11/16 Unchanged Guaifenesin (guaiFENesin 100 mg/ 5 mL oral liquid) 10 Milliliter Oral Every 4 hours as needed for for cough as needed Unchanged Hydromorphone (HYDROmorphone 2 mg oral tablet) 1 tab(s) Oral Twice a day as needed for as needed for pain Duration: 3 Days as needed Unchanged HydrOXYzine (hydrOXYzine hydrochloride 10 mg oral tablet) 1 tab(s) Oral Twice a day as needed for Anxiety as needed Unchanged Isosorbide Dinitrate (isosorbide dinitrate 30 mg oral tablet) 1 tab(s) Oral Daily 11/17 Unchanged Lidocaine Topical (lidocaine 5% topical film) 1 patch Topically Daily 11/17 Unchanged Melatonin 10 Milligram Oral Daily at Bedtime as needed for as needed for sleep as needed Unchanged Metoprolol (Metoprolol Succinate ER 25 mg oral tablet, extended release) 1 tab(s) Oral Daily 11/17 Unchanged Mirtazapine (mirtazapine 15 mg oral tablet) 0.5 tab(s) Oral Daily at Bedtime 11/16 Unchanged nalOXONE (naloxone 4 mg/ 0.1 mL nasal spray) INSTILL 1 SPRAY INTRANASALLY NEEDED FOR SIGNS OF NARCOTIC OVERDOSE ?? as needed Unchanged Nicotine (nicotine 21 mg/ 24 hr transdermal film, extended release) 1 patch(es) Topically Daily 11/17 Unchanged Senna (Senna 8.6 mg oral tablet) 1 tab(s) Oral Daily at Bedtime 11/16 Unchanged Sodium Biphosphate-Sodium Phosphate (Fleet Enema 19 gm-7 gm rectal enema) 1 Each Per rectum Once as needed for as needed for constipation as needed Unchanged Thiamine (Vitamin B1 100 mg oral tablet) 1 tab(s) Oral Daily 11/17 Unchanged umeclidinium (Incruse Ellipta 62.5 mcg/ inh inhalation powder) 1 puff(s) Inhalation Every 24 hours every 24 hrs - resume Unchanged Warfarin (warfarin 5 mg oral tablet) 1 tab(s) Oral Daily 11/17 Test Results Below is a partial list of the most recent Laboratory test results done prior to this discharge. You may have had other tests and procedures not included in this list. Please discuss all test resultswith your provider. BUN (11/16/2022) ???BUN - 11 mg/dL CBC (11/16/2022) ???WBC - 11.7 k/mm3???RBC - 3.63 m/mm3???Hgb - 9.4 Gm/dL???Hct - 31.3 %???MCV - 86.2 femtoliters???MCH - 25.9 pg???MCHC - 30.0 g/dL???Platelet Count - 334 k/mm3???RDW-SD - 55.0 femtoliters???MPV - 8.9 femtoliters???Nucleated RBC (Automated) - 0.0 #/100 WBC'S???Abs. NRBC - 0.0 k/mm3 CBC w/ Differential (11/14/2022) ???WBC - 12.0 k/mm3???RBC - 3.12 m/mm3???Hgb - 8.3 Gm/dL???Hct - 26.9 %???MCV - 86.2 femtoliters???MCH - 26.6 pg???MCHC - 30.9 g/dL???Platelet Count - 351 k/mm3???RDW-SD - 57.1 femtoliters???MPV - 9.3 femtoliters???Nucleated RBC (Automated) - 0.0 #/100 WBC'S???Abs. NRBC - 0.0 k/mm3???Abs. Neut - 10.1 k/mm3???Abs. Lymph - 0.9 k/mm3???Abs. [place] - 0.9 k/mm3???Abs. Eo - 0.0 k/mm3???Abs. Baso - 0.0 k/mm3???Neut % - 84.2 %???Lymph % - 7.2 %???[place] % - 7.5 %???Eos % - 0.0 %???Baso % - 0.1 %???Imm Gran- 1.0 %???Abs. Imm Gran - 0.1 k/mm3 Comprehensive Metabolic Panel (11/13/2022) ???Sodium - 143 mmol/L???Potassium - 4.3 mmol/L???Chloride - 101 mmol/L???Bicarbonate Level - 32 mmol/L???Anion Gap - 10???Glucose Level - 133 mg/dL???BUN - 25 mg/dL???Creatinine-Blood - 0.5 mg/dL???Estimated GFR Creatinine - 111 ML/MIN/1.73 M2???Calcium - 8.8 mg/dL???Protein, Total - 6.1 Gm/dL???Al bumin - 3.4 Gm/dL???AG Ratio - 1.3???Alkaline Phosphatase - 196 units/L???AST (SGOT) - 19 units/L???ALT (SGPT) - 19 units/L???Bilirubin, Total - 0.3 mg/dL Creatinine (11/16/2022) ???Creatinine-Blood - 0.6 mg/dL???Estimated GFR Creatinine - 107 ML/MIN/1.73 M2 Electrolytes (11/16/2022) ???Sodium - 138 mmol/L???Potassium - 3.8 mmol/L???Chloride - 97 mmol/L???Bicarbonate Level - 33 mmol/L???Anion Gap - 8 FERRITIN (11/14/2022) ???Ferritin Level - 208 ng/mL FOLIC ACID (11/14/2022) ???Folic Acid Level - 4.8 ng/mL Glucose Level (11/15/2022) ???Glucose Level - 84 mg/dL High??Sensitivity??Troponin T (11/14/2022) ???High Sensitivity Troponin (HSTnT) - 29 ng/L Hold Blue Top Tube (11/13/2022) ???Hold Blue Top - SPECIMEN DISCARDED AFTER 4 HOURS. IRON & TIBC (11/14/2022) ???Iron Level - 41 mcg/dL???Iron Binding Capacity, Unsaturated - 185 mcg/dL???Iron Binding Capacity, Estimated Total - 226 mcg/dL???% Iron Saturation - 18 % LIPASE (11/13/2022) ???Lipase - 25 units/L Lytes (11/14/2022) ???Sodium - 140 mmol/L???Potassium - 4.5 mmol/L???Chloride - 99 mmol/L???Bicarbonate Level - 32 mmol/L???Anion Gap - 9 Magnesium Level (11/16/2022) ???Magnesium - 1.7 mg/dL Mg Level (11/14/2022) ???Magnesium - 1.8 mg/dL Phosphorus Level (11/15/2022) ???Phosphorus - 2.5 mg/dL ProBNP (11/13/2022) ???Nt-Probnp - 566 pg/mL PROCALCITONIN, SERUM (11/13/2022) ???Procalcitonin - 0.09 ng/mL PT (INR) (11/13/2022) ???INR - 1.1???Protime (PT) - 11.1 seconds PTT (11/14/2022) ???APTT - 29.8 seconds TRANSFERRIN (11/14/2022) ???Transferrin - 184 mg/dL TSH with T4 Reflex (Adults Only) (11/13/2022) ???TSH - 0.43 uIU/mL VITAMIN B12 (11/14/2022) ???Vitamin B12 Level - 405 pg/mL Allergies (NKA means No Known Allergies) [...] Metabolic alkalosis?? Multiple fractures of ribs?? Old SD (myocardial infarction) X 3?? old Rib fractures, right 3-8?? PVD (peripheral vascular disease)?? Smoking greater than 40 pack years?? Underweight?? Education Materials Below is the list of Educational Leaflet Providered with your Discharge Instructions. Upper Gastrointestinal (GI) Bleeding, Stable?? Valuables and Belongings I fully understand and agree that [facility] accepts no responsibility for all my personal [...] patient Date for Pt to Sign Valuables/Belongings: 11/13/22 19:06:00 ?? Other Discharge Information ? Case Management Discharge Plan?? Discharge Plan?? Discharge Level of Care at Discharge: Home/Alf/Foster Care ?? Pulmonary Rehab Status?? Pulmonary Rehab [...] are strongly encouraged to quit. Please call [facility] [employer] Link at [phone] or [phone] [place] ([phone]) or log in to [email or web address] for referrals to smoking cessation programs. ?? The National Suicide Prevention Hotline is available 20/06 if you or someone you know needs to find a reason to keep living. By calling 6-490-182-AskU (1423) you'll be connected to a skilled, trained counselor at a crisis center in your area. INPATIENT DISCHARGE INSTRUCTIONS SIGNATURE PAGE CARLOS BRUMFIELD Location:[facility] Registration Date and Time:11/14/2022 13:52 EST Primary Care Physician: Jose LEE MD, Jorge Tsang, I CARLOS BRUMFIELD, have received the above patient education materials/instructions and have verbalized understanding. If ambulance or transport services are being used I further acknowledge being given a choice of service. ?? If you need to contact me, please call me at this number: . Patient/Tube Builder Airplane Name: Patient/Tube Builder Airplane Signature: Relationship to Patient: Witness Name/Signature: Date: * Dariana Becerra RN: PERFORM Event Display: Patient Education Leaflets Authored Date: [id number] Upper Gastrointestinal (GI) Bleeding, Stable ?? [id number] Upper Gastrointestinal (GI) Bleeding, Stable Your upper gastrointestinal (GI) tract includes your esophagus, stomach, and upper small intestine.??You have signs of bleeding from your upper GI??tract. You may have vomited or coughed up blood or coffee-ground like material. Or you may have black or tarry stools.??Very small amounts of GI bleeding may not be visible and can only be found by a test of the stool. Causes of upper GI bleeding can include: ??? Tear in the lining of the esophagus ??? Enlarged veins in the esophagus or stomach, especially in someone with cirrhosis ??? An ulcer in the stomach or top of the small intestine ??? Severe irritation of the stomach ??? Inflammation of the digestive tract ??? Abnormal growth (tumor) of the upper digestive tract A bloody nose or mouth or dental problems may cause you to swallow blood. You may vomit this blood up. This is not true GI bleeding.??Iron supplements and medicines for diarrhea and upset stomach cancause black stools.??This is not GI bleeding and is not a cause for concern. Home care You've had an assessment for your bleeding. You will need to continue your care at home. Depending on the cause of your bleeding, care may include: ??? You may be given medicines to help protect yourGI tract, treat your problem, and help with healing. Take these as directed. Call your provider if you have questions about your medicines or side effects that concern you. ??? Sometimes tests such as endoscopy may also be used to stop bleeding. An endoscope is a thin flexible tube with a light randee camera on the tip that is put into your stomach through your throat (esophagus). ??? Don't take NSAIDs, such as aspirin, ibuprofen, or naproxen. They can irritate the stomach and cause more bleeding. If you are taking these medicines for other reasons, talk with your provider before you stop them.? If you are on blood thinners, discuss the treatment plan with your provider. ??? Don't use alcohol, caffeine, or tobacco. These can delay healing and make your problem worse. If you have trouble stopping any of these things, ask your provider for treatment resources. ?? Follow-up care Follow up with your healthcare provider as advised. You may need more tests to find??the cause of your bleeding. ?? When to seek medical advice Call your healthcare provider right away??for any of the following: ??? Stomach pain starts or getsworse ??? Pain spreads to the neck, back, shoulder, or arm ??? Weakness or dizziness ??? Swelling of your belly ??? Red blood in your stool ??? Fever of 100.4??F (38??C) or higher, or as directed by your healthcare provider ??? New symptoms ?? Call 911 Call 911 if any of these occur: ??? Trouble breathing or swallowing ??? Severe dizziness ??? Loss of consciousness ??? Vomiting blood that is not related to a bloody nose or a dental procedure ??? Large amounts of blood in the stool ??? Black, tarry stool ??? Chest pain or lightheadedness ?? Last Reviewed Date: 2021 ?? 9544-4657 [employer] All rights reserved. This information is not intended as a substitute for professional medical care. Always follow your healthcare professional's instructions. ?? Portable XR Chest Views * [employer] , CIS S: TRANSCMary Briscoe MD: VERIFY Event Display: Result: Authored Date: [id number] Examination: Portable chest performed on 11/13/2022. History: Midsternal chest pain. Findings: A frontal view of the chest is compared to a prior study dated 11/12/2022. The cardiac silhouette is within normal limits for size. Prominence of the pulmonary arteries is demonstrated bilaterally. There is a left upper lobe opacity, not identified on the prior study.. Right rib fixation hardware is noted. There is a dislodged screw superiorly, stable. IMPRESSION: Left upper lobe opacity which may represent atelectasis or an infiltrate. Clinical correlation is suggested. WSN: [id number] Ordering Physician: Paz Astorga Dictated By: Mary Bella MD Dictated Date/Time: 11/13/22 1:27 pm Reviewed By: Mary Bella MD Signed By: Mary Bella MD Signed Date/Time: 11/13/22 1:27 pm Transcribed By: CSSharan Transcribed Date/Time: 11/13/22 1:[address] Abdomen and Pelvis W contrast IV * VIDYASPowerscribe , CIS S: TRANSCFarhat Haley MD A: Zoë Franco MD: VERIFY Event Display: Result: Authored Date: [id number] CT Abd/Pelvis W/ IV Contrast Only Hx of Present Illness: LLQ abdominal pain; Clinical Question(s): Pancreatitis TECHNIQUE: Spiral CT through the abdomen and pelvis with IV contrast formatted in 3 planes. 100 cc of Omnipaque 300 was administered intravenously. This study was performed without oral contrast. Weight-based protocol using automatic tube modulation was used to optimize exposure parameters. CTDIvol Body: 13.50 mGy, DLP Body: 637 mGy*cm. COMPARISON: CT 10/07/2022 FINDINGS: [employer] View Findings, Lines and Tubes: None. Visualized Chest: Mild bibasilar atelectasis. No pleural effusion. The heart is normal in size. No pericardial effusion. Diaphragm: Tiny fat-containing right Bochdalek hernia. Liver: Normal. Gallbladder: No CT evidence of gallbladder pathology. Bile ducts: No biliary ductal dilation. Spleen: Normal. Pancreas: No pancreatic ductal dilation. 1.4 x 1.9 x 1.7 cm cystic lesion again noted at the pancreatic neck (axial 47), unchanged from prior. Adrenal glands: Normal. Kidneys and ureters: No hydronephrosis, stones, or suspicious masses. 1.6 cm cyst in the interpolarleft kidney. Bladder: Obscured by artifact. Reproductive organs: Unremarkable. Stomach, small bowel, and large bowel: The stomach is normal. The small and large bowel are normal in caliber without evidence of obstruction. Appendix: Normal, best seen on coronal 68. Peritoneum and retroperitoneum: Trace free fluid in the pelvis. No pneumoperitoneum. No omental or mesenteric lesions. Lymph nodes: No enlarged lymph nodes. Blood vessels: Severe atherosclerotic vascular calcification but no aneurysm. Bilateral common iliac artery stents are patent. The visualized proximal portions of the bilateral femoral artery bypass grafts are patent. No evidence of venous thrombosis. Abdominal and pelvic wall: Unremarkable. Bones: No acute abnormality. Diffusely decreased bone mineralization. Multilevel disc space narrowing in the lumbar spine. Chronic compression deformities of T12 and L1 with unchanged height loss. Status post laminectomy and fusion at L4-S1. Lucent focus with sclerotic rim seen in the left iliac bone is nonspecific and may reflect prior graft donor site. Old right-sided rib fractures. Status post left hip arthroplasty. IMPRESSION: 1. No acute abnormality in the abdomen and pelvis. No CT evidence of acute pancreatitis. 2. 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 MRI/MRCP of the abdomen can be obtained to further characterize. I have personally reviewed the images and I agree with this report. WSN: [id number] Ordering Physician: Paz Astorga Dictated By: Farhat Leblanc MD Dictated Date/Time: 11/13/22 4:29 pm Reviewed By: Zoë Frazier MD Signed By: Zoë Frazier MD Signed Date/Time: 11/13/22 4:34 pm Transcribed By: BERENICE Transcribed Date/Time: 11/13/22 4:21 pm Patient Care team information Care Team Personnel Name: Michael Girard RN Position: [facility] RN Member Role: Primary Care Nurse Name: Radha Hsieh RN Position: [facility] RN Member Role: Primary Care Nurse Name: Glo Camarena RN Position: [facility] RN Member Role: Primary Care Nurse Name: Fatimah Bennett RN Position: [facility] RN Member Role: Primary Care Nurse Name: Mariely Hardy RN Position: [facility] RN Member Role: Primary Care Nurse Name: Sydney Zelaya Position: [facility] PCO OFFICE STAFF Member Role: Lifetime Consulting Physician Name: Judd Barahona RN Position: [facility] RN Member Role: Primary Care Nurse Name: Mag Harry RN Position: [facility] RN Member Role: Primary Care Nurse Name: An Blount RN Position: [facility] RN Supv Member Role: Primary Care Nurse Name: Marianna Ng RN Position: [facility] SN RN Member Role: Primary Care Nurse Name: Avani Odell RN Position: [facility] RN Member Role: Primary Care Nurse Name: Elizabeth Noriega RN Position: [facility] RN Member Role: Primary Care Nurse Name: Ruben Bello RN Position: [facility] RN Member Role: Primary Care Nurse Name: Zoë Thompson RN Position: [facility] RN Member Role: Primary Care Nurse Name: Araceli Simon RN Position: [facility] RN Member Role: Primary Care Nurse Name: Jorge Garcia III, MD Position: [facility] Ambulatory (view) Member Role: PCP Address: Address: [address] [place] [id number] Name: Misty Nguyen RN Position: [facility] RN Member Role: Primary Care Nurse Name: Sarwat Aj RN Position: [facility] RN Member Role: Primary Care Nurse Name: Cassi Batista RN Position: [facility] RN Member Role: Primary Care Nurse Name: Ellis Mayfield RN Position: [facility] RN Member Role: Primary Care Nurse Name: Ayah Robison RN Position: [facility] RN Member Role: Primary Care Nurse Name: Kirstin Enriquez RN Position: [facility] RN Member Role: Primary Care Nurse Name: Jina Smalls RN Position: [facility] RN Member Role: Primary Care Nurse Name: Laura Clements RN Position: [facility] RN Member Role: Primary Care Nurse Name: Colette Syed RN Position: [facility] RN Member Role: Primary Care Nurse Name: Muriel Daley RN Position: [facility] RN Supv Member Role: Primary Care Nurse Name: Darlyn Alvarez RN Position: [facility] RN Member Role: Primary Care Nurse Name: Maribell Mejias RN Position: [facility] RN Member Role: Primary Care Nurse Name: Rachna Renteria RN Position: [facility] RN Member Role: Primary Care Nurse Name: Zohreh Pink RN Position: [facility] RN Member Role: Primary Care Nurse Name: Sophie Berrios RN Position: [facility] RN Member Role: Primary Care Nurse Name: Nasra Smith RN Position: [facility] RN Member Role: Primary Care Nurse Name: Cindy Grullon RN Position: [facility] RN Supv Member Role: Primary Care Nurse Name: Elham Melgar RN Position: [facility] RN Member Role: Primary Care Nurse Name: Elham Lee RN Position: [facility] PCO RN Member Role: Primary Care Nurse Name: Ana María Cat RN Position: [facility] RN Member Role: Primary Care Nurse Name: Flor Holley Position: [facility] RN Member Role: Primary Care Nurse Name: Bret Aguirre RN Position: [facility] RN Member Role: Primary Care Nurse Name: Ghazal Moreno Position: [facility] RN Member Role: Primary Care Nurse Name: Audra Martinez RN Position: [facility] RN Member Role: Primary Care Nurse Name: Shahbaz Bobo RN Position: [facility] RN Member Role: Primary Care Nurse Name: Jennifer Yin LPN Position: [facility] RN Member Role: Primary Care Nurse Name: Alina Arce RN Position: [facility] RN Member Role: Primary Care Nurse Name: Marcelo Schneider RN Position: [facility] ED RN W/OE and Tasks Member Role: Primary Care Nurse Name: Radha Masterson RN Position: [facility] RN Member Role: Primary Care Nurse Name: Amy Larios RN Position: [facility] RN Member Role: Primary Care Nurse Name: Indira Lindsey RN Position: [facility] SN RN Member Role: Primary Care Nurse Name: Rosa Elena Pope RN Position: [facility] RN Member Role: Primary Care Nurse Name: Florentino Garcia RN Position: [facility] RN Member Role: Primary Care Nurse Name: Cristel Moreno RN Position: [facility] SN RN Member Role: Primary Care Nurse Name: Rosa Elena De León RN Position: [facility] Rug Clipper Member Role: Primary Care Nurse Name: Tulio Pina RN Position: [facility] RN Member Role: Primary Care Nurse Name: Maximiliano Claros RN Position: [facility] RN Member Role: Primary Care Nurse Name: Narda Barnes RN Position: [facility] RN Member Role: Primary Care Nurse Name: Zoë Cisse RN Position: [facility] RN Member Role: Primary Care Nurse Name: Pat Bowers RN Position: [facility] SN RN Member Role: Primary Care Nurse Name: Ruy Salcido RN Position: [facility] RN Member Role: Primary Care Nurse Name: Tayler Cabello RN Position: [facility] RN Member Role: Primary Care Nurse Name: Hilaria Aparicio RN Position: [facility] RN Member Role: Primary Care Nurse Name: Carly Rosado RN Position: [facility] RN Supadelaida Member Role: Primary Care Nurse Name: Sydney Rosado RN Position: [facility] RN Member Role: Primary Care Nurse Name: Uriel Dumont Position: [facility] RN Member Role: Primary Care Nurse Name: Selene Vazquez RN Position: [facility] RN Member Role: Primary Care Nurse Name: Dariana Becerra RN Position: [facility] RN Member Role: Primary Care Nurse Name: Leyla Verma LPN Position: [facility] RN Member Role: Primary Care Nurse Name: Rody Mays RN Position: [facility] RN Member Role: Primary Care Nurse Name: Marielos Mixon RN Position: [facility] RN Member Role: Primary Care Nurse Name: Radha Flores RN Position: [facility] RN Member Role: Primary Care Nurse Name: Rose Kyle RN Position: [facility] Hospital Rug Clipper Member Role: Primary Care Nurse Name: Aimee Salamanca Position: [facility] RN Member Role: Primary Care Nurse Name: *[facility], ED Attending Position: [facility] ED Attendings Patient Name: *[facility], Inpt Attending Position: [facility] ED Medicine MD Name: Cali Alcantara RN Position: [facility] ED RN W/OE and Tasks Member Role: Patient Care Provider Name: Alyson Giron Position: [facility] ED TA [facility] Care Team Related Persons Name: STEVENSON HAMM Address: home [address] [address] Name: MELINA BRUMFIELD Address: [place] [address] Name: GARRY BRUFMIELD Address: home [address] [address] Name: BRIEN LANCASTER Address: home [address] [place] [id number]
--- OUTSIDE RECORDS SUMMARY | 2023-08-15 20:27 | XMS_ITS | Continuity of Care Document ---
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 and grammatical errors. The physician does strive to identify and correct these, but some could still be present. Please do not hesitate to contact the physician for clarifications. ?? Problem List/Past Medical History Ongoing Anemia Anxiety CAD - Coronary artery disease Chronic low back pain COPD (chronic obstructive pulmonary disease) COPD exacerbation Deep vein thrombosis (DVT) of left lower extremity Epistaxis GERD (gastroesophageal reflux disease) HTN (hypertension) Hyperlipidemia Hyponatremia Metabolic alkalosis Multiple fractures of ribs Old [place] (myocardial infarction) X 3 Pulmonary cachexia due [...] endarterectomy (08/13/2015)???multiple lumbar spine surgeries Medications Inpatient Albuterol 0.083% inhalation marilin, 2.5 mg= 3 mL, BAND Nebulizer, Every 4 hours, PRN dicyclomine 10 mg oral capsule, 10 mg= 1 capsule, By Mouth, 4 times a day Docusate/Senna Tablet, 1 tablet, By Mouth, 2 times a day, PRN Duloxetine, 60 mg, By Mouth, 2 times a day Eliquis, 5 mg, By Mouth, 2 times a day ferrous sulfate 325 mg oral enteric coated tablet, 325 mg, By Mouth, Daily gabapentin 300 mg oral capsule, 600 mg, By Mouth, 3 times a day hydrOXYzine hydrochloride 10 mg oral tablet, 10 mg, By Mouth, 3 times a day, PRN isosorbide dinitrate 20 mg oral tablet, 30 mg, By Mouth, 2 times a day Lidocaine 5% Patch, 2 each, Topically, Daily Lidocaine 5% Patch, 1 each, Topically, Daily Lidocaine 5% Patch, 1 each, Topically, Daily Melatonin Tablet, 3 mg, By Mouth, Daily at bedtime, PRN Metoprolol Succinate ER 25 mg oral tablet, extended release, 25 mg, By Mouth, Daily MiraLax Powder, 17 Gm= 1 pack/packet, By Mouth, Daily, PRN NaCL 0.9% Flush, 3 mL, IV Push, Every 8 hours NaCL 0.9% Flush, 3 mL, IV Push, Every 8 hours, PRN oxyCODONE 5 mg oral tablet, 20 mg, By Mouth, Every 4 hours, PRN predniSONE 5 mg oral tablet, 15 mg, By Mouth, Daily Protonix 40 mg oral delayed release tablet, 40 mg, By Mouth, Daily Remove Lidocaine Patch, 2 each, Topically, Daily at bedtime Remove Lidocaine Patch, 1 each, Topically, Daily at bedtime Remove Lidocaine Patch, 1 each, Topically, Daily at bedtime Robitussin DM Liquid, 10 mL, By Mouth, Every 4 hours, PRN roflumilast 500 mcg oral tablet, 500 mcg, By Mouth, Daily Simethicone Tablet, 80 mg, Chew, 3 times a day, PRN Sulfamethoxazole 800mg/Trimethoprim 160 mg Tablet (Prophylaxis), 1 tablet, By Mouth, 2 times a day Tylenol 325 mg oral tablet, 975 mg, By Mouth, 3 times a day Vashe Topical Solution, 475 mL, Topically, Every other day Vitamin B1 100 mg oral tablet, 100 mg, By Mouth, Daily Home acetaminophen 325 mg oral tablet, 650 mg= 2 tablet, By Mouth, Every 4 hours, PRN albuterol 0.042% inhalation solution, 1.25 mg= 3 mL, Neb, Every 4 hours atorvastatin 80 mg oral tablet, 80 mg= 1 tablet, By Mouth, Daily [place]wood Saline 0.65% nasal gel, 1 sprays, Nares, Both, 4 times a day collagenase topical 250 u/gm ointment, See Instructions dicyclomine 10 mg oral capsule, 10 mg= 1 capsule, By Mouth, 4 times a day duloxetine 60 mg oral enteric coated capsule, 60 mg= 1 capsule, By Mouth, 2 times a day dx: left humeral head fracture, Right shoulder septic arthritis, See Instructions Eliquis 5 mg oral tablet, 5 mg= 1 tablet, By Mouth, 2 times a day, 5 refills ferrous sulfate 325 mg oral enteric coated tablet, 325 mg= 1 tablet, By Mouth, Daily, 1 refills gabapentin 300 mg oral capsule, 600 mg= 2 capsule, By Mouth, 3 times a day HYDROmorphone 4 mg oral tablet, 4 mg, By Mouth, 4 times a day, PRN hydrOXYzine hydrochloride 10 mg oral tablet, 10 mg= 1 tablet, By Mouth, 3 times a day, PRN Incruse Ellipta 62.5 mcg/inh inhalation powder, 1 puffs, Inhalation, Every 24 hours isosorbide dinitrate 30 mg oral tablet, 30 mg= 1 tablet, By Mouth, 2 times a day lidocaine 4% patch loperamide 2 mg oral capsule, 2 mg= 1 capsule, By Mouth, Every 6 hours, PRN Melatonin, 10 mg, By Mouth, Daily at bedtime, PRN Metoprolol Succinate ER 25 mg oral tablet, extended release, 25 mg= 1 tablet, By Mouth, Daily Narcan 4 mg/0.1 mL nasal spray, See Instructions predniSONE 5 mg oral tablet, 15 mg= 3 tablet, By Mouth, Daily Protonix 40 mg oral delayed release tablet, 40 mg= 1 tablet, By Mouth, Daily, 2 refills Robitussin DM Liquid, 5 mL, By Mouth, Every 6 hours, PRN roflumilast 500 mcg oral tablet, 500 mcg= 1 tablet, By Mouth, Daily sulfamethoxazole-trimethoprim 800 mg-160 mg oral tablet, 160 mg, By Mouth, 2 times a day Vitamin B1 100 [...] Recorded influenza virus vaccine, inactivated 02/03/2023 Recorded [id number] 12y+ bivalent booster vax 08/23/2022 Recorded SARS-CoV-2 [...] Comments : VIS GIVEN ??NO EGG ALLERGY * Yvette Garvey MD: PERFORM Event Display: Consultation Note Authored Date: [id number] I have seen and evaluated this patient on the date of service. ??I have discussed the case and its management with the resident?and primary team as documented in the note on the day of service.??10 point review of systems negative except Pertinent positives as above noted.?I agree with the assessment and plan as documented above.? . * Bernardo FREEMAN, Dena Nolan: PERFORM Event Display: Consultation Note Authored Date: [id number] Patient: ??CARLOS BRUMFIELD ? Age:??67 Years?Sex:??Male?:??1955?? Chief Complaint rt shoulder Reason for Consultation rt shoulder History of Present Illness Patient is a 67-year-old male seen at request the medical service for right shoulder.?? Patient wasadmitted on 07/10 for SOB.??HPI obtained from chart review and patient. ??Patient is known to me from previous hospitalizations at [facility].??Patient with history??of??I&D x2 and wound VAC placement toright shoulder at [facility]??due to history of septic arthritis. ??Patient reports??wound is positive for MRSA. ??Pt lives at home; ambulates independently at home but has cane/walker and wheelchair??to use as needed.? PMH: right shoulder??septic arthritis on Doxycycline & NPWT, COPD on home O2 2- 3L with frequentexacerbation, chronic abd and back pain,??CAD, HTN, HLD,??LLE DVT on Eliquis,??anxiety/depression, prior alcohol use disorder, chronic foot ulcers, multiple fractures due to fall, GERD, underweight, old [place] x3, PVD, history of smoking greater than 40 pack years,??DJD, hx osteomyelitis to left fibula ?? PSH: multiple cardiac??stents, arthrotomy??of??glenohumeral joint??with I&D??(01/11/2023),??bilateral iliac stents,??multiple lumbar??spine surgeries, left common femoral artery endarterectomy (07/2015), bilateral iliac stent placements (07/2015), debridement of bone (06/2016), arthrocentesis, removal of implant, CHRIS??to RCA and CHRIS x2 to RCA and left circumflex, left femoral- popliteal bypass graft, left EIA stent, s/p L3-L4-L5 decompression / fusion / instrumentation / titanium rods & screws (10/2004), multiple right-side rib fractures (3rd to 8th) s/p ORIF (12/2010), left ankle trimalleolar fracture s/p ORIF (01/2014), left hip femoral neck fracture s/p ORIF (02/2019) complicated with non-union and converted to left hip THR (03/2019) complicated with a periprosthetic fracture s/p ORIF (04/2019) ?? Social Hx:??Current nicotine use. ??Denies history of drug/alcohol use ?? FMH:??Sister: Asthma Mother: COPD??and cardiac valve prolapse Father: Stroke Other: Lupus Review of Systems Constitutional:??Denies fever/chills. Eyes:??No vision changes ENT:??No hearing loss, sneezing, congestion, runny nose or sore throat. Respiratory:??+shortness of breath, no??cough. Cardiovascular:??No chest pain or palpitations. Gastrointestinal:??No anorexia, N/V/D, or abdominal pain. :??Denies??urinary incontinence Neurologic:??No headache, dizziness. Musculoskeletal:??Right shoulder pain??measuring approximately 10/10; described as constant with stiff pressure to joint. Pt reports decreased ROM to rt shoulder Skin:??No rash or itching. See HPI; reports large amount??of drainage; reports dressing was changedseveral times??today?? Physical Exam Vitals & Measurements T:??98.0?F?? TMIN:??97.8?F?? TMAX:??98.6?F?? HR:??75??(Peripheral)?? RR:??16?? BP:??126/73?? SpO2:??98%?? Constitutional:??WD/thin male in no distress. Mental Status:??Alert/oriented to person, place and time. Head: Normocephalic. Cardiac: RRR, +S1/S2. No murmur, rub, gallop. Respiratory: Unlabored breathing; on O2 via NC.??Lungs clear to auscultation bilaterally. Gastrointestinal: Abdomen soft,??+bowel sounds, rounded, no point tenderness Neurologic: Moves all extremities x4 independently; repositions self independently. Skin: Warm, pink dry. No rashes or lesions. No petechiae or purpura.??Wound to anterior right shoulder??measuring approximately??1 cm x 0.4 cm cm covered with??thick layer of pale yellow biofilm slough fibrinous exudate; no necrotic tissue??present. ??Joint capsule visible at base of wound with undermining to entire periwound edge to approx depth of 2.8 cm. ??Slight epiboly??to periwound edge??with mild??pink erythema to surrounding area. ??Large amount of??slightly green-tinted yellow serous fluid??noted on removed dressing; no malodor Musculoskeletal: No cyanosis or clubbing. +hammertoes bilateral toes Extremities:??Faint posterior tibial??and dorsalis pedis pulses??bilaterally.?No pitting edema noted Psychiatric: Euthymic mood, normal affect. Normal thought content, normal judgment. Assessment/Plan Assessment:??Patient with past medical history for right shoulder??septic arthritis on Doxycycline & NPWT, COPD on home O2 2-3L with frequent exacerbation, chronic abd and back pain,??CAD, HTN, HLD,??LLE DVT on Eliquis,??anxiety/depression, prior alcohol use disorder, chronic foot ulcers, multiple fractures due to fall, GERD, underweight, old OH x3, PVD, history of smoking greater than 40 pack years,??DJD, hx osteomyelitis to left fibula who presents with chronic wound to right shoulder.?Wound measuring smaller; sharp debridement is necessary. ?? After patient gives verbal and written??consent,??there was an excisional??debridement of rt shoulder??with a total area of 0.4 sq cm. With the following instrument(s):??a??#3 curette??was used to??remove viable and non- viable tissue/material down to but not including joint capsule. Material removed includes slough, biofilm, and fibrinous exudate to fresh bleeding/viable tissue.??No specimens were taken.??Patient tolerated procedure well??with topical analgesic (lidocaine 2% jelly).??Hemostasis was obtained??with pressure. ?? Post Debridement Measurements: 1 cm x 0.4 cm x 0.2 The following dressing was applied after debridement:?? ABD, Aquacel Ag, dry gauze, Medipore tape ? Severe malnutrition (E43):??continue w/dietary supplement TID ?? Non-healing surgical wound (T81.89XA):??Irrigate wound bed w/Vashe. Pat dry. Apply thin layer of z-guard to periwound edge; do not reapply if present. Lightly pack w/Aquacel Ag; leave 2 inch tail outfor easier removal. Cover w/gauze and ABD; secure w/medipore tape. Change QOD and prn for increased drainage ?? Underweight (R63.6):??continue w/dietary supplement TID ?? Discharge Planning:??Recommend pt f/u with local wound care center upon discharge for wound/ulcer management. If referring to [facility], please??request through the [employer] list listed as a tab in the Inbox Summary section; select Wound Care - Scheduling to send a communication message requesting an appointment.? Please re-consult wound care MD/TODD for deterioration in wound/skin status. ?? Pictures uploaded in book retailer ?? Thank you for allowing me to participate in the care of this patient,??I appreciate the opportunity to assist??in management. My assessment and??all recommendations??have been communicated??to the patient's primary team via this documentation. Please??feel free to reach out with any??concerns??or questions. Problem List/Past Medical History Ongoing Anemia Anxiety CAD - Coronary artery disease Chronic low back pain COPD (chronic obstructive pulmonary disease) COPD exacerbation Deep vein thrombosis (DVT) of left lower extremity Epistaxis GERD (gastroesophageal reflux disease) HTN (hypertension) Hyperlipidemia Hyponatremia Metabolic alkalosis Multiple fractures of ribs Old [place] (myocardial infarction) X 3 Pulmonary cachexia due [...] endarterectomy (08/13/2015)???multiple lumbar spine surgeries Medications Inpatient Albuterol 0.083% inhalation marilin, 2.5 mg= 3 mL, BAND Nebulizer, Every 4 hours, PRN dicyclomine 10 mg oral capsule, 10 mg= 1 capsule, By Mouth, 4 times a day Docusate/Senna Tablet, 1 tablet, By Mouth, 2 times a day, PRN Duloxetine, 60 mg, By Mouth, 2 times a day Eliquis, 5 mg, By Mouth, 2 times a day ferrous sulfate 325 mg oral enteric coated tablet, 325 mg, By Mouth, Daily gabapentin 300 mg oral capsule, 600 mg, By Mouth, 3 times a day Hydromorphone, 8 mg, By Mouth, Every 4 hours, PRN hydrOXYzine hydrochloride 10 mg oral tablet, 10 mg, By Mouth, 3 times a day, PRN isosorbide dinitrate 20 mg oral tablet, 30 mg, By Mouth, 2 times a day Lidocaine 5% Patch, 1 each, Topically, Daily Melatonin Tablet, 3 mg, By Mouth, Daily at bedtime, PRN Metoprolol Succinate ER 25 mg oral tablet, extended release, 25 mg, By Mouth, Daily MiraLax Powder, 17 Gm= 1 pack/packet, By Mouth, Daily, PRN NaCL 0.9% Flush, 3 mL, IV Push, Every 8 hours NaCL 0.9% Flush, 3 mL, IV Push, Every 8 hours, PRN predniSONE 5 mg oral tablet, 15 mg, By Mouth, Daily Protonix 40 mg oral delayed release tablet, 40 mg, By Mouth, Daily Remove Lidocaine Patch, 1 each, Topically, Daily at bedtime Robitussin DM Liquid, 10 mL, By Mouth, Every 4 hours, PRN roflumilast 500 mcg oral tablet, 500 mcg, By Mouth, Daily Simethicone Tablet, 80 mg, Chew, 3 times a day, PRN Sulfamethoxazole 800mg/Trimethoprim 160 mg Tablet (Prophylaxis), 1 tablet, By Mouth, 2 times a day Tylenol 325 mg oral tablet, 975 mg, By Mouth, 3 times a day Vashe Topical Solution, 475 mL, Topically, Every other day Vitamin B1 100 mg oral tablet, 100 mg, By Mouth, Daily Home acetaminophen 325 mg oral tablet, 650 mg= 2 tablet, By Mouth, Every 4 hours, PRN albuterol 0.042% inhalation solution, 1.25 mg= 3 mL, Neb, Every 4 hours atorvastatin 80 mg oral tablet, 80 mg= 1 tablet, By Mouth, Daily [place] Saline 0.65% nasal gel, 1 sprays, Nares, Both, 4 times a day collagenase topical 250 u/gm ointment, See Instructions dicyclomine 10 mg oral capsule, 10 mg= 1 capsule, By Mouth, 4 times a day duloxetine 60 mg oral enteric coated capsule, 60 mg= 1 capsule, By Mouth, 2 times a day Eliquis 5 mg oral tablet, 5 mg= 1 tablet, By Mouth, 2 times a day, 5 refills ferrous sulfate 325 mg oral enteric coated tablet, 325 mg= 1 tablet, By Mouth, Daily, 1 refills gabapentin 300 mg oral capsule, 600 mg= 2 capsule, By Mouth, 3 times a day HYDROmorphone 4 mg oral tablet, 4 mg, By Mouth, 4 times a day, PRN hydrOXYzine hydrochloride 10 mg oral tablet, 10 mg= 1 tablet, By Mouth, 3 times a day, PRN Incruse Ellipta 62.5 mcg/inh inhalation powder, 1 puffs, Inhalation, Every 24 hours isosorbide dinitrate 30 mg oral tablet, 30 mg= 1 tablet, By Mouth, 2 times a day lidocaine 4% patch loperamide 2 mg oral capsule, 2 mg= 1 capsule, By Mouth, Every 6 hours, PRN Melatonin, 10 mg, By Mouth, Daily at bedtime, PRN Metoprolol Succinate ER 25 mg oral tablet, extended release, 25 mg= 1 tablet, By Mouth, Daily Narcan 4 mg/0.1 mL nasal spray, See Instructions predniSONE 5 mg oral tablet, 15 mg= 3 tablet, By Mouth, Daily Protonix 40 mg oral delayed release tablet, 40 mg= 1 tablet, By Mouth, Daily, 2 refills Robitussin DM Liquid, 5 mL, By Mouth, Every 6 hours, PRN roflumilast 500 mcg oral tablet, 500 mcg= 1 tablet, By Mouth, Daily sulfamethoxazole-trimethoprim 800 mg-160 mg oral tablet, 160 mg, By Mouth, 2 times a day Vitamin B1 100 [...] Recorded influenza virus vaccine, inactivated 02/03/2023 Recorded [id number] 12y+ bivalent booster vax 08/23/2022 Recorded SARS-CoV-2 [...] Comments : VIS GIVEN ??NO EGG ALLERGY Images rt shoulder rt shoulder debridement History and physical note * Blair Lynn MD: MODIFY, PERFORM Event Display: History and Physical Hospital Authored Date: Patient: ??CARLOS BRUMFIELD ? Age:??67 Years?Sex:??Male?:??1955?? Chief Complaint/Reason for Consultation pt seen here frequently. called for COPD exacerbation. given updraft en route without improvement. History of Present Illness 67-year-old male with a past medical history of COPD on chronic steroids, chronic hypoxic respiratory failure on 4 L of oxygen, left lower extremity DVT, severe PVD s/p femoral popliteal bypass and left femoral endarterectomy, multiple left knee stent, opioid use disorder, right shoulder MRSA septic arthritis, left rib fractures, left humeral fracture who was discharged yesterday after having treatment of fracture of the ribs left side, left humeral fracture.?? He was offered rehab but he preferred to go home.? After he went home he started to have a shortness of breath and came to the ED for further evaluation.?? He did have a complaint of chronic abdominal pain without nausea, vomiting with chronic lower extremity pain.?? In the ED work-up showed slightly high WBC count with chronic anemia with high D-dimer and high troponin but flat.?? CT angio chest ruled out any pulmonary embolism.?? He continues to have left-sided rib pain/humerus pain in spite of lidocaine patch, Tylenol and Dilaudid so he is admitted for pain management. ?? He has a care plan by the [facility] task force and it is documented he has multiple visits to the ED/hospital with drug-seeking behavior.?? He refuses to go to rehab in the past.?? He has multiple CTsof the abdomen in the past.?? He often presents as anxious to the ED and tearful requesting IV Dilaudid.?? He also have a history of disruptive to the therapeutic process by becoming argumentative with staff concerning requests for prompt administration of IV dilaudid and frequently engages in splitting with the medical staff. ?? My examination he was complaining a unbearable pain in the hip and in the shoulder joint and pain for the??pain medication.?? No history of any fever, chills, nausea, vomiting. ?? Review of Systems History of pain all over the body mainly in the shoulders and in the hip. ??Complaint of weakness,??subjective fever, shortness of breath.?? No headache, double vision, blurred vision. ??Otherwise all other review of system are obtained from the patient and are negative for except as mentioned above. Objective Vital Signs?? Temperature: 98.6 DegF (07/08/23 17:29:00) Temperature Route: Oral (07/08/23 17:29:00) Pulse Rate: 81 bpm (07/08/23 17:29:00) Respiratory Rate: 20 br/min (07/08/23 19:54:00) Systolic Blood Pressure:??149 mm Hg??High (07/08/23 17:29:00) Diastolic Blood Pressure: 74 mm Hg (07/08/23:29:00) Blood pressure sites: Arm, left (07/08/23::) Mean Arterial Pressure: 99 mm Hg (07/08/23::) Pulse Pressure: 75 mm Hg (07/08/23::) Oxygen Saturation: 100 % (07/08/23::) Liters per Minute: 4 L/min (07/08/23::) Mode of Delivery (Oxygen): Nasal cannula (07/08/23::) Early Warning Score: 0 (07/08/23 19:54:38) ? Physical Exam General Appearance: Moderately nourished, not in any apparent distress, alert, awake and oriented x3. Skin: No rash.?? Warm, dry, pink, no pallor, intact. Eye:?? Normal conjunctiva. HEENT: No JVP.?? Moist mucous membrane. Heart:?? S1, S2.?? No murmurs.?? No regurgitation. Respiratory: Air entry decreased bilaterally in basal region.?? Occasional expiratory wheezing. GI:?? Abdomen is soft, nontender, nondistended.?? Bowel sounds are positive.?? No organomegaly Neurologic:?? Nonfocal neurological examination.? Extremities:?? No calf tenderness, no clubbing, no edema. Psychiatric: Looking anxious. Musculoskeletal: Tenderness in the left side of the chest and also tenderness in both shoulders andlimited range of motion in the upper extremities. Lymphatic system: No cervical lymphadenopathy. Assessment/Plan ?? 67-year-old male with a past medical history of COPD on chronic steroids, chronic hypoxic respiratory failure on 4 L of oxygen, left lower extremity DVT, severe PVD s/p femoral popliteal bypass and left femoral endarterectomy, multiple left knee stent, opioid use disorder, right shoulder MRSA septic arthritis, left rib fractures, left humeral fracture who was discharged yesterday after having treatment of fracture of the ribs left side, left humeral fracture came back with a complaint of worsening of pain in the upper shoulders and in the hip. ?? Fracture of rib of left side (S22.32XA) Left humeral fracture (S42.302A):?? Seen by orthopedics, recommended sling, will start him on scheduled Tylenol and will continue Dilaudid drip.?? Will avoid IV opioids.?? He will follow-up with orthopedics as outpatient.?? We will continue with the lidocaine patch.?? We will continue with the gabapentin. ?? Chronic respiratory failure with hypoxia (J96.11) COPD on long-term oral steroid therapy (J44.9): We will continue with the oxygen, steroid, nebulizer treatment does not look like to be in exacerbation. ?? Septic arthritis of shoulder, right (M00.9): We will continue with the suppressive Bactrim treatment. ?? Persistent leukocytosis Most likely due to steroid treatment.?? No signs or symptoms of any acute infectious etiology. ?? Other chronic stable conditions GERD CAD Anxiety Hyperlipidemia Hypertension We will continue with the metoprolol, statin, Imdur, PPI. ?? History of DVT/DVT prophylaxis. We will continue with the Eliquis. ?? CODE STATUS: Full code. Disposition: Pending PT evaluation.?? Home with PT versus subacute rehab. Disclaimer:?? This note?? was accomplished with use of [employer] voice recognition software, which is prone to medical and other word misidentifications and grammatical errors.?? The physician does strive to identify and correct these, but some could still be present.?? Please do not hesitate to contact the physician for clarifications.?? I will continue to take care of this patient till 7 AM of theadmitting date. Histories Allergies Allergies ?(Active and Proposed Allergies [...] Metabolic alkalosis Multiple fractures of ribs Old [place] (myocardial infarction) X 3 Pulmonary cachexia due [...] to give the dose of NARCAN Nasal [place]. Remove t... Pantoprazole (Protonix 40 mg oral delayed release tablet)?1?tab(s)?40?Milligram?By Mouth?Daily PredniSONE (predniSONE 5 mg oral tablet)?3?tab(s)?15?Milligram?By Mouth?Daily?for 30?Days?15 mg daily maintanence dose after the initial taper roflumilast (roflumilast 500 mcg oral tablet)?1?tab(s)?500?Microgram?By Mouth?Daily Sodium Chloride Nasal ([place]wood Saline 0.65% nasal gel)?1?spray(s)?Nares, Both?4 times a [...] Recent Labs BLOOD COUNT & DIFF WBC 15.3 k/mm3 (High)?? 07/08/2023 10:07 RBC 3.54 m/mm3 (Low)?? 07/08/2023 10:07 Hgb 9.7 Gm/dL (Low)?? 07/08/2023 10:07 Hct 32.0 % (Low)?? 07/08/2023 10:07 MCV 90.4 femtoliters ()?? 07/08/2023 10:07 MCH 27.4 pg ()?? 07/08/2023 10:07 MCHC 30.3 g/dL (Low)?? 07/08/2023 10:07 Platelet Count 492 k/mm3 (High)?? 07/08/2023 10:07 RDW-SD 55.0 femtoliters (High)?? 07/08/2023 10:07 MPV 8.9 femtoliters (Low)?? 07/08/2023 10:07 Nucleated RBC (Automated) 0.0 #/100 WBC'S ()?? 07/08/2023 10:07 Abs. NRBC 0.0 k/mm3 ()?? 07/08/2023 10:07 Abs. Neut 11.8 k/mm3 (High)?? 07/08/2023 10:07 Abs. Lymph 1.5 k/mm3 ()?? 07/08/2023 10:07 Abs. Jerauld 1.2 k/mm3 ()?? 07/08/2023 10:07 Abs. Eo 0.1 k/mm3 ()?? 07/08/2023 10:07 Abs. Baso 0.1 k/mm3 ()?? 07/08/2023 10:07 Neut % 76.7 % (High)?? 07/08/2023 10:07 Lymph % 9.5 % (Low)?? 07/08/2023 10:07 Jerauld % 8.0 % ()?? 07/08/2023 10:07 Eos % 0.7 % ()?? 07/08/2023 10:07 Baso % 0.7 % ()?? 07/08/2023 10:07 Imm Gran 4.4 % ()?? 07/08/2023 10:07 Abs. Imm Gran 0.7 k/mm3 ()?? 07/08/2023 10:07 ?? CARDIAC High Sensitivity Troponin (HSTnT) 30 ng/L (High)?? 07/08/2023 13:27 ?? CHEM GENERAL Sodium 143 mmol/L ()?? 07/08/2023 10:07 Potassium 4.3 mmol/L ()?? 07/08/2023 10:07 Chloride 98 mmol/L ()?? 07/08/2023 10:07 Bicarbonate Level 31 mmol/L (High)?? 07/08/2023 10:07 Anion Gap 14 ()?? 07/08/2023 10:07 Glucose Level 77 mg/dL ()?? 07/08/2023 10:07 Glucose, POC 130 mg/dL (High)?? 07/08/2023 09:19 BUN 19 mg/dL ()?? 07/08/2023 10:07 Creatinine-Blood 0.5 mg/dL (Low)?? 07/08/2023 10:07 Estimated GFR Creatinine 115 ML/MIN/1.73 M2 ()?? 07/08/2023 10:07 Calcium 9.3 mg/dL ()?? 07/08/2023 10:07 Calcium, Ionized pH Corrected 1.21 mmol/L ()?? 07/08/2023 10:07 Magnesium 1.9 mg/dL ()?? 07/08/2023 10:07 Protein, Total 6.1 Gm/dL (Low)?? 07/08/2023 10:07 Albumin 3.7 Gm/dL ()?? 07/08/2023 10:07 AG Ratio 1.5 ()?? 07/08/2023 10:07 Alkaline Phosphatase 301 units/L (High)?? 07/08/2023 10:07 AST (SGOT) 38 units/L ()?? 07/08/2023 10:07 ALT (SGPT) 49 units/L (High)?? 07/08/2023 10:07 Bilirubin, Total 0.2 mg/dL ()?? 07/08/2023 10:07 ?? COAG INR 1.0 ()?? 07/08/2023 10:07 Protime (PT) 10.3 seconds ()?? 07/08/2023 10:07 APTT 26.8 seconds ()?? 07/08/2023 10:07 D-Dimer 17.66 mg/L FEU (High)?? 07/08/2023 10:07 ?? HEME OTHER Hold Blue Top SPECIMEN DISCARDED AFTER 4 HOURS. ()?? 07/08/2023 10:07 ?? UA/URINALYSIS Appear/Color, Urine LIGHT YELLOW ()?? 07/08/2023 16:00 Specific [place]win[place], Urine >1.050 (High)?? 07/08/2023 16:00 pH, Urine 6.5 ()?? 07/08/2023 16:00 Albumin, Urine TRACE (Abnormal)?? 07/08/2023 16:00 Glucose, Urine NEGATIVE ()?? 07/08/2023 16:00 Ketones, Urine NEGATIVE ()?? 07/08/2023 16:00 Bilirubin, Urine NEGATIVE ()?? 07/08/2023 16:00 Hemoglobin, Urine NEGATIVE ()?? 07/08/2023 16:00 Nitrite, Urine NEGATIVE ()?? 07/08/2023 16:00 Leukocyte, Urine NEGATIVE ()?? 07/08/2023 16:00 Urobilinogen NORMAL mg/dL ()?? 07/08/2023 16:00 WBC's, Urine <1 /HPF ()?? 07/08/2023 16:00 RBC's, Urine 2 /HPF ()?? 07/08/2023 16:00 Squamous Epith <1 /HPF ()?? 07/08/2023 16:00 Mucus MODERATE /LPF ()?? 07/08/2023 16:00 ?? URINE OTHER Est Creatinine Clearance 116.04 mL/min ()?? 07/08/2023 17:40 ?? VIROLOGY COVID-19 by RT-PCR NEGATIVE ()?? 07/08/2023 09:45 ? Hospital Progress note * Luci Yates RN: PERFORM, SIGN, VERIFY Event Display: Progress Note Hospital Authored Date: [id number] Patient: CARLOS BRUMFIELD Age: 68 years Sex: Male : 1955 Associated Diagnoses: None Author: Luci Yates RN Findings Evaluation Patient A+Ox4, reporting 07/07 chronic right shoulder pain, given scheduled PO medications with + effect. AM medications given as ordered, no issues or s/s of distress noted. On 4L oxygen nasal cannula at baseline. Report called to S3 DC unit, patient left for S3 in therapuetic bed. . Discharge Information Case Management Discharge Plan : Case Management Discharge Plan Data 07/19/2023 16:13 EDT Discharge Level of Care at Discharge Not Done: D/C canceled (Not Done) Rehabilitation Discharge : Rehab Discharge Index 2023 14:24 EDT Comments on treatment indicated functional mobility, safety, ADLs Full chart review completed Yes Hospital course 67M c complex pmhx notable of right shoulder MRSA septic arthritis, left rib fractures, left humeral fracture returned with uncontrolled shoulder and hip pain on 07/08. * Sallie Linton RN: VERIFY, PERFORM, SIGN Event Display: Progress Note Hospital Authored Date: [id number] Patient: CARLOS BRUMFIELD Age: 68 years Sex: Male : 1955 Associated Diagnoses: None Author: Royer SHANNON, Sallie Findings Problem Related to Alteration in Musculoskeletal : Alteration in Musculoskeletal Func/new 07/25/2023 23:00 EDT Alteration in Musculoskeletal Related to Fracture, Mobility, Other: L humerus fx/ L rib fx/ R shoulder septic arthritis Goals & Outcomes, Musculoskeletal Affected extremity will maintain color/motion/sensation, Pt able to perform ADL's to best of ability, Pt demonstrates precautions/exercise/ transfers per protocol, Pt will ambulate safely with assistive device, Pt will be free from complications of immobility, Pt will demonstrate ability to participate in ADL's, Pt will report acceptable level of comfort/painrelief Interventions, Musculoskeletal Monitor patients ambulation status, monitor Color/Motion/Sensation, Assist with repositioning, Encourage deep breathing & coughing exercises, Teach pt/caregiver on use of pain scale, Teach Pt/caregiver on safety precautions BH Goals/Interventions, Musculoskeletal Yes Musculoskeletal, Problem Start 07/08/2023 17:30 Reviewed Plan with, Musculoskeletal Patient Patient Progression, Musculoskeletal Pt progressing according to plan . Nursing Data Vital Signs : VITAL SIGNS SECTION 07/25/2023 21:23 EDT Temperature 98.5 DegF Temperature Route Oral Pulse Rate 81 bpm Respiratory Rate 18 br/min Systolic Blood Pressure 125 mm Hg Diastolic Blood Pressure 72 mm Hg Blood pressure sites Arm, right Mean Arterial Pressure 90 mm Hg Pulse Pressure 53 mm Hg Oxygen Saturation 98 % Liters per Minute 4 L/min (Modified) Mode of Delivery (Oxygen) Nasal cannula . Evaluation P: see above MS nursing care plan I: see above interventions E: Patient alert and oriented x4, VSS. Pain managed with prn oxycodone and kal tylenol, gabapentin,lidocaine patches with some effect. Lung sonds clear, on 4L oxygen via nasal canula and nebulizers given at hs. Occasional nonprod cough. Denies shortness of breath. Patient reports pain and numbnessto right thumb and left foot. Can sense touch to all extremities, positive dorsi/plantar flexions, left foot cool with palpable pulse. Venous discoloration to LLE. Left ankle with open area, open to air and dry. Dressing to right shoulder is clean and dry and intact. Abdomen soft nontender, denies nausea. Patient reported walking to doorway with physical therapy today, c/o weakness. Primo in use.. Discharge Information Case Management Discharge Plan : Case Management Discharge Plan Data 07/19/2023 16:13 EDT Discharge Level of Care at Discharge Not Done: D/C canceled (Not Done) Rehabilitation Discharge : Rehab Discharge Index 2023 14:24 EDT Comments on treatment indicated functional mobility, safety, ADLs Full chart review completed Yes Hospital course 67M c complex pmhx notable of right shoulder MRSA septic arthritis, left rib fractures, left humeral fracture returned with uncontrolled shoulder and hip pain on 07/08. 07/20/2023 8:51 EDT Walker: distance < 10 * Hia Gutierrez DO: PERFORM Event Display: Progress Note Hospital Authored Date: [id number] Patient: ??CARLOS BRUMFIELD ? Age:??68 Years?Sex:??Male?:??1955?? Subjective Carlos had no issues over the last 6 days,??including fevers chills chest pain shortness of breath nausea vomiting uncontrolled pain diarrhea or dysuria. ??He is ready for discharge on 26 July. ??The bilingual case manager arrange for this with the patient's son. ?? Here is a summary of the Hospital course??through 25 July 2023: ?? Carlos??is a 67-year-old male with history of COPD on chronic steroids, chronic hypoxic respiratory failure on 4 L, severe peripheral vascular disease with history of femoral pop and left femoral endarterectomy surgeries, recent right shoulder MRSA septic arthritis with multiple recent hospitalizations for pain management who initially presented on 811 after he reports a fall with subsequent left-sided rib fractures, and left humeral fracture, complicated by both nonhealing surgical wound of the right shoulder that was debrided on 07/11.?? He remains hospitalized for pain control and disposition. ?? Left humerus fracture Fracture of the ribs on the left side Recent right shoulder septic arthritis Left shoulder x-ray??shows healing??humeral head fracture without change in alignment. We will reach out to orthopedic surgery for recommendations??if he needs??any surgical interventionor continue nonoperative??conservative management ?? Plan: Continue oxycodone 20 mg every 4 hours as needed for pain,??hold for sedation Continue Tylenol 975 3 times a day Continue gabapentin 600 mg 3 times a day Continue duloxetine 60 mg twice a day Continue lidocaine patch Continue Bactrim for septic arthritis, to be continued indefinitely ?? Chronic respiratory failure with hypoxia COPD Respiratory status stable, cough??seems mild ?? Plan: Continue Roflumilast Continue albuterol via nebulizer 4 times a day as needed Continue prednisone 15 mg daily ?? DVT of the left lower extremity Remains on apixaban ?? Severe malnutrition Likely as a consequence of his severe COPD, nutrition has been following appreciate their input. ?? Fortunately we??had no indication to change any of Carlos's chronic medicines. ??He continues on the medicines that are described above will be discharged home??with his family on 26 July.?? Casemanagement has been updating the family. Review of Systems Allergies Allergies ?(Active and Proposed Allergies Only) naproxen? (Severity: Unknown severity, Onset: Unknown) ?Reactions: lesions on lips Toradol? (Severity: Persistent Mild, Onset: Unknown) ?Reactions: hives, Cephalexin allergy, Naproxen, Metaxalone, Morphine allergy Keflex? (Severity: Unknown severity, Onset: Unknown) ?Reactions: rash ?Comments: tolerates pip/tazo 11/17 Skelaxin? (Severity: Unknown severity, Onset: Unknown) ?Reactions: H/O: migraine ?? Objective Vital Signs?? Temperature: 99 DegF (07/25/23 05:10:00) Temperature Route: Oral (07/25/23 05:10:00) Pulse Rate: 88 bpm (07/25/23 10:17:00) Respiratory Rate: 16 br/min (07/25/23 13:53:00) Systolic Blood Pressure: 108 mm Hg (07/25/23 10:17:00) Diastolic Blood Pressure: 61 mm Hg (07/25/23 10:17:00) Blood pressure sites: Arm, right (07/25/23 05:10:00) Mean Arterial Pressure: 94 mm Hg (07/25/23 05:10:00) Pulse Pressure: 49 mm Hg (07/25/23 05:10:00) Oxygen Saturation: 96 % (07/25/23 05:10:00) Liters per Minute: 5 L/min (07/25/23 05:10:00) Mode of Delivery (Oxygen): Nasal cannula (07/25/23 05:10:00) Early Warning Score: 0 (07/25/23 14:01:04) ? Pain Scores 1 - 10 Pain Scale Score: 5 (00:55) Pain relief acceptable: Yes () ? Intake/Output? 07/10 12:50 07/25 07:00 07/24 07:00 07/23 07:00 07/22 07:00 ?? 07/25 14:38 07/25 14:38 07/25 06:59 07/24 06:59 07/23 06:59 Intake ?16150 ?0 ? 1538 ?240 ?240 Output ?40685 ?0 ? 1400 ?900 ? 3100 Net Total ? -04712 ?0 ?138 ? -660 ?-2860 ? Urine Count ? 11 ?0 ?3 ?0 ?1 ? Physical Exam General: Awake and alert Chest: Clear auscultation bilaterally Cardiovascular regular rate and rhythm Extremities??he has a continuous drainage from his right upper extremity,??he is on chronic antibiotics,??no additional rashes or issues. ??Skin: Warm and dry. _ Inpatient Medications Medications (31) Active SCHEDULED: (23) Acetaminophen 325 mg Tablet (Tylenol 325 mg oral tablet) ??975 mg, By Mouth, 3 times a day Apixaban 5 mg Tablet (Eliquis) ??5 mg, By Mouth, 2 times a day Arformoterol 15 mcg/2mL Inh Marilin (Brovana 15mcg/2mL Inhalation Solution) ??15 mcg 2 mL, BAND Nebulizer, 2 times a day Budesonide 0.5 mg/ 2 mL Inhalation Susp (budesonide 0.5 mg/2 mL inhalation suspension) ??0.5 mg 2 mL, BAND Nebulizer, 2 times a day Dicyclomine 10 mg [...] Lidocaine 5% Topical Patch (Lidocaine 5% Patch) ??1 each, Topically, Daily Lidocaine 5% Topical Patch (Lidocaine 5% Patch) ??2 each, Topically, Daily Lidocaine 5% Topical Patch (Lidocaine 5% Patch) ??1 each, Topically, Daily Metoprolol 25 mg XL Tablet (Metoprolol Succinate ER 25 mg oral tablet, extended release) ??25 mg, By Mouth, Daily NaCl 0.9% Flush 3ml (NaCL 0.9% Flush) ??3 mL, IV Push, Every 8 hours Pantoprazole 40 mg EC Tablet (Protonix 40 mg oral delayed release tablet) ??40 mg, By Mouth, Daily PredniSONE 5 mg Tablet (predniSONE 5 mg oral tablet) ??15 mg, By Mouth, Daily Remove Patch (Remove Lidocaine Patch) ??1 each, Topically, Daily at bedtime Remove Patch (Remove Lidocaine Patch) ??2 each, Topically, Daily at bedtime Remove Patch (Remove Lidocaine Patch) ??1 each, Topically, Daily at bedtime Roflumilast 500 mcg Tablet (roflumilast 500 mcg oral tablet) ??500 mcg, By Mouth, Daily Sulfamethoxazole 800 mg/Trimethoprim 160 mg Tablet (Sulfamethoxazole 800mg/Trimethoprim 160 mg Tablet) ??1 tablet, By Mouth, 2 times a day Thiamine 100 mg Tablet (Vitamin B1 100 mg oral tablet) ??100 mg, By Mouth, Daily Vashe Wound Care Emollient/Cleanser (Vashe Topical Solution) ??475 mL, Topically, Every other day CONTINUOUS: (0) PRN: (8) Albuterol 0.083% Inhalation Solution (Albuterol 0.083% inhalation marilin) ??2.5 mg 3 mL, BAND Nebulizer, Every 4 hours Dextromethorphan-Guaifenesin 20 mg-200 mg/10 mL Liqu UD (Robitussin DM Liquid) ??10 mL, By Mouth, Every 4 hours HydrOXYzine HCL 10mg Tablet (hydrOXYzine hydrochloride 10 mg oral tablet) ??10 mg, By Mouth, 3 times a day Melatonin 3 mg Tablet (Melatonin Tablet) ??3 mg, By Mouth, Daily at bedtime NaCl 0.9% Flush 3ml (NaCL 0.9% Flush) ??3 mL, IV Push, Every 8 hours OxyCODONE 5 mg IR Tablet (oxyCODONE 5 mg oral tablet) ??20 mg, By Mouth, Every 4 hours Senna 8.6 mg / Docusate 50 mg tablet (Docusate/Senna Tablet) ??1 tablet, By Mouth, 2 times a day Simethicone 80 mg Chewable Tablet (Simethicone Tablet) ??80 mg, Chew, 3 times a day ? 72 Hour Antibiotic History Active Antibiotics Calendar Day Last Administered First Administered Sulfamethoxazole/Trimethoprim??1 tablet, By Mouth, 2 times a day ?7 07/25/2023 10:17 07/19/2023 20:53 ? Results Recent Labs No labs resulted between 07/24/2023 00:00 and 07/25/2023 14:38? Abnormal Labs No lab data available. ? Assessment/Plan Chief Complaint: pt seen here frequently. called for COPD exacerbation. given updraft en route without improvement. ?? Diagnoses Humerus fracture ??(S42.309A) Non-healing surgical wound ??(T81.89XA) Rib fracture ??(S22.39XA) 1. ??COPD (chronic obstructive pulmonary disease) ??(J44.9) 2. ??Deep vein thrombosis (DVT) of left lower extremity ??(I82.402) 3. ??Pulmonary cachexia due to COPD ??(J44.9) 4. ??Severe malnutrition ??(E43) 5. ??Secondary hypercoagulable state ??(D68.69) ?? Assessment:??67-year-old male with rib fractures, status post fall with humerus fracture. He has a nonhealing wound of the right upper extremity. ?? Chronic issues include history of DVT, secondary??hypercoagulable??state, chronic respiratory failure with COPD,??severe protein calorie malnutrition ?? Ready for discharge on 26 July. ?? VTE Prophylaxis:??On apixaban ?VTE Prophylaxis Assessment:??VTE Prophylaxis Ordered ?? Code Status:??Full code ?Order Code Status:??Code Status Ordered ?? Discharge Planning:??Discharge as above ? Note * Misty Flores RN: PERFORM Event Display: Discharge/Transfer Note Hospital Authored Date: [id number] Nursing Discharge Note Entered On: 07/26/2023 17:30 EDT Performed On: 07/26/2023 17:30 EDT by Misty Flores RN Nursing Discharge Note 2 Discharge Time : 07/26/2023 17:00 EDT Discharge Level of Care at Discharge : Home/[facility] Patient Left Unit Via : Ambulance Patient Accompanied Off Unit with : Ambulance/Chair Van Personnel Handover Given to Transport Personnel : Yes DC Instructions Provided & Signed by Pt : Yes Patient Understands D/C Instructions : Yes Patient Instructions Discharge Signed : Yes Did Pt have Specialty Bed or Wound Vac : No Misty Flores RN - 07/26/2023 17:30 EDT * Ayaan AMAYA, Netta: MODIFY, MODIFY, PERFORM Event Display: Discharge/Transfer Note Hospital Authored Date: [id number] Patient: ??CARLOS BRUMFIELD ? Age:??68 Years?Sex:??Male?:??1955?? Patient Information Discharge Location: 4 Primary Care Physician: Jorge Garcia III, MD Admit Date/Time: 07/10/23 12:50 Discharge Disposition Discharge Disposition: Home with Home Health Discharge Diagnosis COPD (chronic obstructive pulmonary disease) (J44.9) Deep vein thrombosis (DVT) of left lower extremity (I82.402) Pulmonary cachexia due to COPD (J44.9) Severe malnutrition (E43) Secondary hypercoagulable state (D68.69) Humerus fracture (S42.309A) Non-healing surgical wound (T81.89XA) Rib fracture (S22.39XA) Anxiety CAD - Coronary artery disease COPD [...] oral tablet, extended release)?1?tab(s)?25?Milligram?By Mouth?Daily Miscellaneous Rx (dx: left humeral head fracture, Right shoulder septic arthritis)?See Instructions?Bonilla-walker nalOXONE (Narcan 4 mg/0.1 mL nasal spray)?See Instructions?If concern for opioid overdose. Gently insert the tip of the nozzle into one nostril, until your fingers on either side of the nozzle are against the bottom of the person's nose. Press the plunger firmly to give the dose of NARCAN Nasal Warba. Remove t... nalOXONE (Narcan 4 mg/0.1 mL nasal spray)?4?Milligram?Nares, Both?Once Oxycodone (oxyCODONE 10 mg oral tablet)?2?tab(s)?20?Milligram?By Mouth?Every 4 hours?for 3?Days Pantoprazole (Protonix 40 mg oral delayed release tablet)?1?tab(s)?40?Milligram?By Mouth?Daily PredniSONE (predniSONE 5 mg oral tablet)?3?tab(s)?15?Milligram?By Mouth?Daily?for 30?Days?15 mg daily maintanence dose after the initial taper roflumilast (roflumilast 500 mcg oral tablet)?1?tab(s)?500?Microgram?By Mouth?Daily Sodium Chloride Nasal ([place] Saline 0.65% nasal gel)?1?spray(s)?Nares, Both?4 times a [...] hours ? Quality Measures Tobacco Use Treatment:? 72 Hour Antibiotic History Active Antibiotics Calendar Day Last Administered First Administered Sulfamethoxazole/Trimethoprim??1 tablet, By Mouth, 2 times a day ?8 07/26/2023 08:13 07/19/2023 20:53 ? PCP Follow-Up/Heads-Up - Repeat blood work - Follow-up on discharge. - Please review list of medications. Hospital Course Carlos??is a 67-year-old male with history of COPD on chronic steroids, chronic hypoxic respiratory failure on 4 L, severe peripheral vascular disease with history of femoral pop and left femoral endarterectomy surgeries, recent right shoulder MRSA septic arthritis with multiple recent hospitalizations for pain management who initially presented on 811 after he reports a fall with subsequent left-sided rib fractures, and left humeral fracture, complicated by both nonhealing surgical wound of the right shoulder that was debrided on 07/11.?? He remains hospitalized for pain control and dispo.?? Eventually,??decision made to discharge him home with services.?? Patient expressed understanding and agrees with the plan to set up a primary care physician and follow-up as an outpatient. He also needs to??follow-up??with local wound care as well as??orthopedics for continued managementof??wound and fracture respectively No further medication changes were made.? Hospitalization course is as follows: Please see prior documentation for details. ? Left humerus fracture Fracture of the ribs on the left side Recent right shoulder septic arthritis Left shoulder x-ray??shows healing??humeral head fracture without change in alignment. We will reach out to orthopedic surgery for recommendations??if he needs??any surgical interventionor continue nonoperative??conservative management ?? Plan: Continue oxycodone 20 mg every 4 hours as needed for pain,??hold for sedation Continue Tylenol 975 3 times a day Continue gabapentin 600 mg 3 times a day Continue duloxetine 60 mg twice a day Continue lidocaine patch Continue Bactrim for septic arthritis, to be continued indefinitely ?? Chronic respiratory failure with hypoxia COPD Respiratory status stable, cough??seems mild ?? Plan: Continue Roflumilast Continue albuterol via nebulizer 4 times a day as needed Continue prednisone 15 mg daily ?? DVT of the left lower extremity Remains on apixaban ?? Severe malnutrition Likely as a consequence of his severe COPD, nutrition has been following appreciate their input. ?? Plan: Continue regular diet with 3 times a day Continue thiamine daily ?? CAD No reports of chest pain ?? Plan: Continue metoprolol 25 mg XL daily Continue isosorbide dinitrate 30 mg 2 times a day Objective . Physical Exam ?General:??older appearing male in no obvious distress?HEENT:??EOMI, PERRLA,sclera anicteric??,??moist mucus membranes?Respiratory:??Clear to auscultation bilaterally, no wheezes/crackles ?Cardiovascular:??regular rate,regular rhythm,No murmurs ?GI:??BS+, soft, non-distended, non-tender ?MSK:??Limited range of motion in bilateral shoulders due to pain _ Pending Results No Pending Results Follow-Up Appointments Added Follow Up ?Time Frame ?Comments [facility] wound care Jorge Garcia III, MD Patient Instructions ?You were evaluated by the [facility]. If interested in outpatient mental health follow-up, including psychotherapy, please contact one ofthe following [facility] clinics for an appointment: ?? [facility]: [facility]: [phone] [facility]: [phone] ?Please follow the primary care physician for review list of medications, repeating set of blood work and follow-up on discharge ?Please present to the emergency department if any of the following symptoms including but not limited to increased pain, new fevers, shortness of breath, chest pain or any new symptoms. ?Please follow with a local wound care center???[facility] wound care center. Continue to be non weightbearing on the Left Upper Extremity. Please refrain from overhead motion. Recommend elevation. ??Patient should follow-up at [facility] in 1-2 weeks. ??Please call [phone] for appointment and with anyconcerns. ?New medications: Oxycodone to be used as needed for pain- it should be titrated down Narcan provided in case of overdose. Post Discharge Care Discharge ?07/26/23 9:14:00 EDT Home Health Face to Face *Denotes mandatory tapia ?? *I certify that this patient is under my care and that I or an allowed non- physician working with me had a face to face encounter with the patient on this date:??07/26/2023 16:26 ?? *The encounter with the patient was in whole, or in part, for the following medical condition, which is the primary diagnosis(es) for home health care:??COPD (chronic obstructive pulmonary disease) (J44.9) Deep vein thrombosis (DVT) of left lower extremity (I82.402) Pulmonary cachexia due to COPD (J44.9) Severe malnutrition (E43) Secondary hypercoagulable state (D68.69) Humerus fracture (S42.309A) Non-healing surgical wound (T81.89XA) Rib fracture (S22.39XA) Anxiety CAD - Coronary artery disease COPD [...] management (reconciliation, teaching)?? [_] Chronic disease management?? [_] Wound care and treatment?? [_] Home safety evaluation [_] Administer SQ/IM/IV medications?? [_] Cath care?? [_] Drain care?? [_] Trach or GT care?? Other _ Occupation Therapy (select all that apply): [_] None [_] ADL Management [_] Fall prevention training [_] Energy conservation [_] Cognitive training Other _ Physical Therapy (select all that apply): [_] None [_] Functional mobility training [X] Home exercise program to strengthen [_] Increase ROM?? [X] Falls prevention training [_] Home maintenance program [...] Inability to ambulate without assistance [_] Pain [X] Decreased strength and endurance [_] Unsteady gait [_] Severe SOB and fatigue [_] Impaired transfers [_] Inability to negotiate stairs [_] Limited weight bearing [_] Mental status change? *Physician Signature:??Netta Barrett ?? *By signing this, I certify that I have personally evaluated the patient and agree with the findings and recommendations as documented above. ? hFTF Results Discharge Labs BLOOD COUNT & DIFF WBC 9.0 k/mm3 ()?? 07/18/2023 00:36 RBC 2.80 m/mm3 (Low)?? 07/18/2023 00:36 Hgb 7.5 Gm/dL (Low)?? 07/18/2023 00:36 Hct 25.5 % (Low)?? 07/18/2023 00:36 MCV 91.1 femtoliters ()?? 07/18/2023 00:36 MCH 26.8 pg (Low)?? 07/18/2023 00:36 MCHC 29.4 g/dL (Low)?? 07/18/2023 00:36 Platelet Count 381 k/mm3 ()?? 07/18/2023 00:36 RDW-SD 56.0 femtoliters (High)?? 07/18/2023 00:36 MPV 8.9 femtoliters (Low)?? 07/18/2023 00:36 Nucleated RBC (Automated) 0.0 #/100 WBC'S ()?? 07/18/2023 00:36 Abs. NRBC 0.0 k/mm3 ()?? 07/18/2023 00:36 Abs. Neut 7.0 k/mm3 ()?? 07/09/2023 01:04 Abs. Lymph 0.3 k/mm3 (Low)?? 07/09/2023 01:04 Abs. Jerauld 0.3 k/mm3 (Low)?? 07/09/2023 01:04 Abs. Eo 0.0 k/mm3 ()?? 07/09/2023 01:04 Abs. Baso 0.0 k/mm3 ()?? 07/09/2023 01:04 Neut % 86.6 % (High)?? 07/09/2023 01:04 Lymph % 4.2 % (Low)?? 07/09/2023 01:04 Jerauld % 4.1 % (Low)?? 07/09/2023 01:04 Eos % 0.0 % ()?? 07/09/2023 01:04 Baso % 0.2 % ()?? 07/09/2023 01:04 Imm Gran 4.9 % ()?? 07/09/2023 01:04 Abs. Imm Gran 0.4 k/mm3 ()?? 07/09/2023 01:04 ?? CARDIAC High Sensitivity Troponin (HSTnT) 30 ng/L (High)?? 07/08/2023 13:27 ? CHEM GENERAL Sodium 142 mmol/L ()?? 07/18/2023 00:36 Potassium 4.3 mmol/L ()?? 07/18/2023 00:36 Chloride 99 mmol/L ()?? 07/18/2023 00:36 Bicarbonate Level 34 mmol/L (High)?? 07/18/2023 00:36 Anion Gap 9 ()?? 07/18/2023 00:36 Glucose Level 88 mg/dL ()?? 07/13/2023 01:29 Glucose, POC 130 mg/dL (High)?? 07/08/2023 09:19 BUN 17 mg/dL ()?? 07/18/2023 00:36 Creatinine-Blood 0.8 mg/dL ()?? 07/18/2023 00:36 Estimated GFR Creatinine 100 ML/MIN/1.73 M2 ()?? 07/18/2023 00:36 Calcium 9.2 mg/dL ()?? 07/13/2023 01:29 Calcium, Ionized pH Corrected 1.21 mmol/L ()?? 07/08/2023 10:07 Magnesium 2.2 mg/dL ()?? 07/13/2023 01:29 Protein, Total 6.2 Gm/dL ()?? 07/12/2023 00:49 Albumin 3.9 Gm/dL ()?? 07/12/2023 00:49 AG Ratio 1.7 ()?? 07/12/2023 00:49 Alkaline Phosphatase 288 units/L (High)?? 07/12/2023 00:49 AST (SGOT) 28 units/L ()?? 07/12/2023 00:49 ALT (SGPT) 38 units/L ()?? 07/12/2023 00:49 Bilirubin, Total <0.2 mg/dL ()?? 07/12/2023 00:49 C-Reactive Protein 4.4 mg/dL (High)?? 07/16/2023 01:53 ? COAG INR 1.0 ()?? 07/08/2023 10:07 Protime (PT) 10.3 seconds ()?? 07/08/2023 10:07 APTT 26.8 seconds ()?? 07/08/2023 10:07 D-Dimer 17.66 mg/L FEU (High)?? 07/08/2023 10:07 ?? HEME OTHER Sed Rate 47 mm/hr (High)?? 07/16/2023 01:53 Hold Blue Top SPECIMEN DISCARDED AFTER 4 HOURS. ()?? 07/08/2023 10:07 ?? UA/URINALYSIS Appear/Color, Urine LIGHT YELLOW ()?? 07/08/2023 16:00 Specific [place]win[place], Urine >1.050 (High)?? 07/08/2023 16:00 pH, Urine 6.5 ()?? 07/08/2023 16:00 Albumin, Urine TRACE (Abnormal)?? 07/08/2023 16:00 Glucose, Urine NEGATIVE ()?? 07/08/2023 16:00 Ketones, Urine NEGATIVE ()?? 07/08/2023 16:00 Bilirubin, Urine NEGATIVE ()?? 07/08/2023 16:00 Hemoglobin, Urine NEGATIVE ()?? 07/08/2023 16:00 Nitrite, Urine NEGATIVE ()?? 07/08/2023 16:00 Leukocyte, Urine NEGATIVE ()?? 07/08/2023 16:00 Urobilinogen NORMAL mg/dL ()?? 07/08/2023 16:00 WBC's, Urine <1 /HPF ()?? 07/08/2023 16:00 RBC's, Urine 2 /HPF ()?? 07/08/2023 16:00 Squamous Epith <1 /HPF ()?? 07/08/2023 16:00 Mucus MODERATE /LPF ()?? 07/08/2023 16:00 ? URINE OTHER Est Creatinine Clearance 71.56 mL/min ()?? 2023 06:13 ? VIROLOGY COVID-19 by RT-PCR NEGATIVE ()?? 07/08/2023 09:45 ? 32??minutes spent on discharge * Misty Flores RN: PERFORM Event Display: Patient Education/Instruction Authored Date: [id number] Inpatient Adult Discharge Instructions [place] [id number] Name: CARLOS BRUMFIELD : 1955 Visit: 07/10/2023 12:50:00 Current Date: 07/26/2023 16:38 Account: [id number] Inpatient Adult Discharge Instructions We would like [...] and their families. Surveys are administered by [employer] ?? If further treatment with your primary care physician or another doctor is recommended, it is important for you to keep the appointment. Call your primary care physician or return to the Emergency Department immediately if your condition worsens, fails to improve, or new symptoms develop. If you need to find a doctor, you can call [facility] for a referral at [phone] or toll free at [phone] or log in to [email or web address].. ?? [facility], in keeping with [facility] guidance, no longer requires face masks for staff, patientsor visitors in most situations. Similiar to time spent indoors at other locations, there is the chance that you were exposed to repiratory viruses during your time with us (such as flu or COVID-19). If you develop symptoms concerning for a viral respiratory infection, please seek testing (and treatment if indicated) from your medical provider or home test kit. ?? You can view and manage your care through the patient portal or by using a health care todd of your choosing. [employer] is a website that allows you to securely view your medical information including your hospital discharge summary, office visit summaries, medications and follow-up visits. You can also request appointments, renew medications, and request access to your medical information using a health care todd of your choosing, or just ask a question. You can enroll at [email or web address] or register during your next office visit. You have been discharged from [facility], Patient Care Unit: S3. If you have any questions regarding these instructions after you leave, please call us and we will be happy to assist you. [facility] Your Care Team Attending Physician Netta Kuo MD Consulting Providers Rodolfo Nayak MD Discharging Providers Netta Kuo MD Reason for Admission pt seen here frequently. called for COPD exacerbation. given updraft en route without improvement. Your Diagnosis Rib fracture Humerus fracture COPD (chronic obstructive pulmonary disease) Deep vein thrombosis (DVT) of left lower extremity Pulmonary cachexia due to COPD Severe malnutrition Non-healing surgical wound Secondary hypercoagulable state Tests Performed Below is a partial list of the tests performed during your hospitalization. You may have had other tests and procedures not included in this list. Please discuss all test results with your provider. Alk Phos ALT AST Basic Metabolic Panel BUN Calcium Ionized CBC CBC w/ Differential Comprehensive Metabolic Panel COVID-19 (Novel Coronavirus), Rapid PCR Creatinine CRP D Dimer Electrolytes ESR GLUCOSE POC High??Sensitivity??Troponin T Hold Blue Top Tube INR Magnesium Level PTT Troponin T, High Sensitivity Urinalysis Complete CT Angio Chest XR Chest 2 Views Frontal and Lat XR Humerus Min 2 Views Left Primary Care Provider Jorge Garcia III, MD Advance Directive Health Care Proxy on File Yes - Health Care Proxy Yes - MOLST Discharge Vitals Temperature: 97.8 DegF Height: 182 cm Pulse Rate: 88 bpm Weight: 55.7 kg Respiratory Rate: 16 br/min Body Mass Index:??16.82 kg/m2??Low Systolic Blood Pressure: 131 mm Hg Body surface area: 1.68 Diastolic Blood Pressure: 65 mm Hg ?? Oxygen Saturation: 96 % ?? Studies Pending All tests and labs ordered during this hospital stay have been completed unless listed below. Please discuss all pending results with your provider listed above in these instructions. ?? No incomplete studies found What to do next Instructions From Your Doctor ?You were evaluated by the [facility] Psychiatric Consultation Service. If interested in outpatient mental health follow-up, including psychotherapy, please contact one ofthe following [facility] clinics for an appointment: ?? CHD: [facility]: [phone] [facility]: [phone] ?Please follow the primary care physician for review list of medications, repeating set of blood work and follow-up on discharge ?Please present to the emergency department if any of the following symptoms including but not limited to increased pain, new fevers, shortness of breath, chest pain or any new symptoms. ?Please follow with a local wound care center???[facility] wound care center. Continue to be non weightbearing on the Left Upper Extremity. Please refrain from overhead motion. Recommend elevation. ??Patient should follow-up at [facility] in 1-2 weeks. ??Please call [phone] for appointment and with anyconcerns. ?New medications: Oxycodone to be used as needed for pain- it should be titrated down Narcan provided in case of overdose. Discharge Orders You Need to Schedule the Following Appointments Follow Up with??[facility] wound care Follow Up with??Jose LEE MD, Jorge Tsang Where: [address] [facility] [place] [address]- Discharge Medications CARLOS BRUMFIELD :1955 Visit Date:07/10/2023 Medications: Please continue your medications until treatment is completed or stopped by your provider. Medications not listed below should be discontinued. Discuss any questions related to medications with your provider. What How Much When Instructions Next Dose New Oxycodone (oxyCODONE 10 mg oral tablet) 2 tab(s) Oral Every 4 hours Duration: 3 Days Pickup at [facility] 3 last dose received 07/26 3:50 pm Changed nalOXONE (Narcan 4 mg/ 0.1 mL nasal spray) 4 Milligram Nares, Both Once Pickup at [facility] 3 Changed nalOXONE (Narcan 4 mg/ 0.1 mL nasal spray) See instructions If concern for opioid overdose. Gently insert the tip of the nozzle into one nostril, until your fingers on either side of the nozzle are against the bottom of the person's nose. Press the plunger firmly to give the dose of NARCAN Nasal Warba. Remove the NARCAN Nasal Warba from the nostril after giving the dose. Get emergency medical help right away. ?? Unchanged Acetaminophen (acetaminophen 325 mg oral tablet) 2 tab(s) Oral Every 4 hours as needed for as needed for fever as needed Unchanged Albuterol (albuterol 0.042% inhalation solution) 3 Milliliter Nebulized inhalation Every 4 hours as needed Unchanged apixaban (Eliquis 5 mg oral tablet) 1 tab(s) Oral Twice a day Duration: 30 Days 07/26 Unchanged Atorvastatin (atorvastatin 80 mg oral tablet) 1 tab(s) Oral Daily 07/27 Unchanged Collagenase Topical (collagenase topical 250 u/ gm ointment) See instructions Use over right shoulder wound daily ?? 07/27 Unchanged Dicyclomine (dicyclomine 10 mg oral capsule) 1 capsule Oral 4 times a day 07/26 Unchanged Duloxetine (duloxetine 60 mg oral enteric coated capsule) 1 capsule Oral Twice a day 07/26 Unchanged Ferrous Sulfate (ferrous sulfate 325 mg oral enteric coated tablet) 1 tab(s) Oral Daily 07/27 Unchanged Gabapentin (gabapentin 300 mg oral capsule) 2 capsule Oral 3 times a day 07/26 Unchanged Guaifenesin/ Dextromethorphan (Robitussin DM Liquid) 5 Milliliter Oral Every 6 hours as needed for Cough as needed Unchanged HydrOXYzine (hydrOXYzine hydrochloride 10 mg oral tablet) 1 tab(s) Oral 3 times a day as needed for Anxiety as needed Unchanged Isosorbide Dinitrate (isosorbide dinitrate 30 mg oral tablet) 1 tab(s) Oral Twice a day 07/26 Unchanged Lidocaine Topical (lidocaine 4% patch) 07/27 Unchanged Loperamide (loperamide 2 mg oral capsule) 1 capsule Oral Every 6 hours as needed for for loose stool as needed Unchanged Melatonin 10 Milligram Oral Daily at Bedtime as needed for as needed for sleep as needed Unchanged Metoprolol (Metoprolol Succinate ER 25 mg oral tablet, extended release) 1 tab(s) Oral Daily 07/27 Unchanged Miscellaneous Rx (dx: left humeral head fracture, Right shoulder septic arthritis) See instructions Bonilla-walker ?? Printed Prescription Unchanged Pantoprazole (Protonix 40 mg oral delayed release tablet) 1 tab(s) Oral Daily 07/27 Unchanged PredniSONE (predniSONE 5 mg oral tablet) 3 tab(s) Oral Daily Duration: 30 Days 15 mg daily maintanence dose after the initial taper ?? 07/27 Unchanged roflumilast (roflumilast 500 mcg oral tablet) 1 tab(s) Oral Daily 07/27 Unchanged Sodium Chloride Nasal ([place] Saline 0.65% nasal gel) 1 spray(s) Nares, Both 4 times a day 07/26 Unchanged Sulfamethoxazole/ Trimethoprim (sulfamethoxazole-trimethoprim 800 mg- 160 mg oral tablet) 160 Milligram Oral Twice a day Duration: 30 Days drink plenty of fluids; ??followup with Ortho and ID before this is completed, to discuss long-termplan. May need further weeks of antibiotics. ?? 07/26 Unchanged Thiamine (Vitamin B1 100 mg oral tablet) 1 tab(s) Oral Daily 07/27 Unchanged umeclidinium (Incruse Ellipta 62.5 mcg/ inh inhalation powder) 1 puff(s) Inhalation Every 24 hours 9am 07/27 Pharmacy Information [facility] 3: [address], [place] [id number] [phone] ?? What How Much When Comments Stop Taking Hydromorphone (HYDROmorphone 4 mg oral tablet) 4 Milligram Oral 4 times a day as needed for Pain , Severe Duration: 3 Days Test Results Below is a partial list of the most recent Laboratory test results done prior to this discharge. You may have had other tests and procedures not included in this list. Please discuss all test resultswith your provider. Est Creatinine Clearance - 71.56 mL/min (2023) Alk Phos (07/09/2023) ???Alkaline Phosphatase - 246 units/L ALT (07/09/2023) ???ALT (SGPT) - 38 units/L AST (07/09/2023) ???AST (SGOT) - 21 units/L Basic Metabolic Panel (07/13/2023) ???Sodium - 139 mmol/L???Potassium - 5.2 mmol/L???Chloride - 94 mmol/L???Bicarbonate Level - 34 mmol/L???Anion Gap - 11???Glucose Level - 88 mg/dL???BUN - 26 mg/dL???Creatinine-Blood - 0.9 mg/dL???Estimated GFR Creatinine - 95 ML/MIN/1.73 M2???Calcium - 9.2 mg/dL BUN (07/18/2023) ???BUN - 17 mg/dL Calcium Ionized (07/08/2023) ???Calcium, Ionized pH Corrected - 1.21 mmol/L CBC (07/18/2023) ???WBC - 9.0 k/mm3???RBC - 2.80 m/mm3???Hgb - 7.5 Gm/dL???Hct - 25.5 %???MCV - 91.1 femtoliters???MCH - 26.8 pg???MCHC - 29.4 g/dL???Platelet Count - 381 k/mm3???RDW-SD - 56.0 femtoliters???MPV - 8.9femtoliters???Nucleated RBC (Automated) - 0.0 #/100 WBC'S???Abs. NRBC - 0.0 k/mm3 CBC w/ Differential (07/09/2023) ???WBC - 8.0 k/mm3???RBC - 2.95 m/mm3???Hgb - 8.1 Gm/dL???Hct - 26.4 %???MCV - 89.5 femtoliters???MCH - 27.5 pg???MCHC - 30.7 g/dL???Platelet Count - 424 k/mm3???RDW-SD - 54.2 femtoliters???MPV - 8.6femtoliters???Nucleated RBC (Automated) - 0.0 #/100 WBC'S???Abs. NRBC - 0.0 k/mm3???Abs. Neut - 7.0 k/mm3???Abs. Lymph - 0.3 k/mm3???Abs. Jerauld - 0.3 k/mm3???Abs. Eo - 0.0 k/mm3???Abs. Baso - 0.0 k/mm3???Neut % - 86.6 %???Lymph % - 4.2 %???Jerauld % - 4.1 %???Eos % - 0.0 %???Baso % - 0.2 %???Imm Gran -4.9 %???Abs. Imm Gran - 0.4 k/mm3 Comprehensive Metabolic Panel (07/12/2023) ???Sodium - 141 mmol/L???Potassium - 4.6 mmol/L???Chloride - 96 mmol/L???Bicarbonate Level - 34 mmol/L???Anion Gap - 11???Glucose Level - 88 mg/dL???BUN - 17 mg/dL???Creatinine-Blood - 0.6 mg/dL???Estimated GFR Creatinine - 109 ML/MIN/1.73 M2???Calcium - 9.0 mg/dL???Protein, Total - 6.2 Gm/dL???Albu min - 3.9 Gm/dL???AG Ratio - 1.7???Alkaline Phosphatase - 288 units/L???AST (SGOT) - 28 units/L???ALT (SGPT) - 38 units/L? ?Bilirubin, Total - <0.2 mg/dL COVID-19 (Novel Coronavirus), Rapid PCR (07/08/2023) ???COVID-19 by RT-PCR - NEGATIVE Creatinine (07/18/2023) ???Creatinine-Blood - 0.8 mg/dL???Estimated GFR Creatinine - 100 ML/MIN/1.73 M2 CRP (07/16/2023) ???C-Reactive Protein - 4.4 mg/dL D Dimer (07/08/2023) ???D-Dimer - 17.66 mg/L FEU Electrolytes (07/18/2023) ???Sodium - 142 mmol/L???Potassium - 4.3 mmol/L???Chloride - 99 mmol/L???Bicarbonate Level - 34 mmol/L???Anion Gap - 9 ESR (07/16/2023) ???Sed Rate - 47 mm/hr GLUCOSE POC (07/08/2023) ???Glucose, POC - 130 mg/dL High??Sensitivity??Troponin T (07/08/2023) ???High Sensitivity Troponin (HSTnT) - 34 ng/L Hold Blue Top Tube (07/08/2023) ???Hold Blue Top - SPECIMEN DISCARDED AFTER 4 HOURS. INR (07/08/2023) ???INR - 1.0???Protime (PT) - 10.3 seconds Magnesium Level (07/13/2023) ???Magnesium - 2.2 mg/dL PTT (07/08/2023) ???APTT - 26.8 seconds Troponin T, High Sensitivity (07/08/2023) ???High Sensitivity Troponin (HSTnT) - 30 ng/L Urinalysis Complete (07/08/2023) ? ?Appear/Color, Urine - LIGHT YELLOW? ?Specific Erwin[place], Urine - >1.050? ?pH, Urine - 6.5? ?Albumin, Urine - TRACE???Glucose, Urine - NEGATIVE???Ketones, Urine - NEGATIVE???Bilirubin, Urine - NEGATIVE???Hemoglobin, Urine - NEGATIVE???Nitrite, Urine - NEGATIVE???Leukocyte, Urine - NEGATIVE???Urobilinogen - NORMAL? ?WBC's, Urine - <1 /HPF? ?RBC's, Urine - 2 /HPF? ?Squamous Epith - <1 /HPF???Mucus - MODERATE Allergies (NKA means No Known Allergies) Toradol??(Morphine [...] Metabolic alkalosis?? Multiple fractures of ribs?? Old [place] (myocardial infarction) X 3?? old Rib fractures, right 3-8?? Pulmonary cachexia due to COPD?? PVD (peripheral vascular disease)?? Smoking greater than 40 pack years?? Tobacco dependence?? Underweight?? Education Materials Below is the list of Educational Leaflet Providered with your Discharge Instructions. Wound Healing?? Managing Chronic Pain: Therapies for Mind and Body?? Understanding Chronic Pain?? Valuables and Belongings I fully understand and agree that [facility] accepts no responsibility for all my [...] witness Date for Pt to Sign Valuables/Belongings: 07/26/23 10:12:00 ?? Other Discharge Information ?? Wound Assessment?? Wound Assessment?? Wound Location I: Shoulder, right Wound Type I: Unknown Etiology Wound I, Present on Admission: Yes Wound Location II: Lateral malleolus, left Wound Type II: Skin Tear Wound II, Present on Admission: Yes ? Pulmonary Rehab Status?? Pulmonary Rehab Discharge [...] are strongly encouraged to quit. Please call [facility] [employer] Link at [phone] or [phone]) or log in to [email or web address] for referrals to smoking cessation programs. ?? 590 Suicide & Crisis Lifeline is available 20/06 if you or someone you know needs to find a reason to keep living. By calling 299 you'll be connected to a skilled, trained counselor at a crisis center in your area. INPATIENT DISCHARGE INSTRUCTIONS SIGNATURE PAGE CARLOS BRUMFIELD Location:[facility] Registration Date and Time:07/10/2023 12:50 EDT Primary Care Physician: Jorge Garcia III, MD, Attending Physician: Netta Kuo MD, CARLOS MCCONNELL, have received the above patient education materials/instructions and have verbalized understanding. If ambulance or transport services are being used I further acknowledge being given a choice of service. ?? If you need to contact me, please call me at this number: . Patient/Missile Technician Name: Patient/Missile Technician Signature: Relationship to Patient: Witness Name/Signature: Date: * Misty Flores RN: PERFORM Event Display: Patient Education Leaflets Authored Date: [id number] Wound Healing ?? 642 You are an important partner in your care along with your health care team.?? Eating healthful foods and drinking nutrition shakes are two things that you can do to help improve wound healing! ?? What should I eat? ?? Protein Rich Foods Meat (Beef/Pork) Chicken/[place] Fish [place]age Cheese Nuts/Nut butters Beans Cheese Nutrition shakes Milk Yogurt Irish Yogurt Eggs Vitamin C Rich Foods Oranges [place] Juice Pineapple Strawberries Melons Broccoli Peppers Kiwi Papaya Zinc Rich Foods Beef Pork Dark meat chicken Oysters Crabmeat Beans Fortified cereal Nuts Wheat germ ? It is important to consume adequate??Calories and Protein each day. ?? If you do not eat many foods rich in vitamin C or zinc, you may need a complete multivitamin with minerals to ensure you are getting enough of these nutrients. ? * Misty Flores RN: PERFORM Event Display: Patient Education Leaflets Authored Date: [id number] Managing Chronic Pain: Therapies for Mind and Body ?? 97979 Managing Chronic Pain: Therapies for Mind and Body Both the brain and the body are involved in the pain response. The brain reads and interprets the pain signals from the body. This means that your mind has some control over how pain signals are processed. Mind-body therapies may help change how your brain reads pain signals. Talk to your healthcare provider about trying any of the therapies listed below. [place] therapies ??? Yoga is a mind and body practice that combines physical postures, breathing techniques, and meditation or relaxation. It can help you relax your body and mind and become more flexible. Brain chi is a gentle form of exercise with movements that help gain strength and flexibility.??? Relaxation, visualization, and meditation are methods for relaxing muscles and concentrating onsomething outside of your body. This can lessen the feeling of pain or help you work through it. ??? Coping skills are ways of feeling more in control. These use humor, distraction, or positive thinking to put the pain in its place. ??? Biofeedback is a technique for learning to have more control over your body. This can help you better control your response to pain. ??? Self-hypnosis is a way totrain your mind to change your perception of pain. ?? Counseling and support groups ??? Chronic pain support groups can help you feel less isolated. Theycan also give you tips for coping with pain. ??? Support groups for an underlying condition can help you learn more about controlling that condition and the pain that it causes. ??? Individual counseling can help you learn coping skills and methods, like visualization and relaxation. Counseling canalso help with mood problems.? Complementary therapies ??? Massage helps you relax. It may also help relieve some kinds of muscle and joint pain. ??? Acupuncture and acupressure are treatments in which small needles or pressure isapplied to certain sites on the body. They may stimulate the body's natural pain-control system. ??? Chiropractic is a treatment based on adjustments made to the spine and joints. It may help with some kinds of back pain. ??? Certain vitamins or herbs may help with some conditions that cause chronic pain, although there is limited evidence for their effectiveness. But they may interact with your medicines, so check with your healthcare provider or pharmacist before you try them. ?? Last Reviewed Date: 2019 ?? [id number] [employer]. All rights reserved. This information is not intended as a substitute for professional medical care. Always follow your healthcare professional's instructions. ?? * Misty Flores RN: PERFORM Event Display: Patient Education Leaflets Authored Date: [id number] Understanding Chronic Pain ?? 17589 Understanding Chronic Pain Chronic means ongoing. Pain is called chronic when it lasts over a long period of time???at least 3months. This includes pain that you feel regularly, even if it comes and goes. Chronic pain may be due to continuing injury or disease. Or it may be due to problems with the body???s pain-control system. An example of this is fibromyalgia.?? Chronic stimulus Chronic pain may be from ongoing arousal of the body's pain system. The cause may be an untreated injury or health problem. Common examples of these are: ??? Joint degeneration (arthritis) ??? Back injury ??? Nervous system damage (neuropathic pain) ???Headaches With this type of pain, both the pain and the condition that is causing it must be treated. ?? Chronic pain syndrome In some cases, no cause can be found for a person's chronic pain. Some people with chronic pain develop chronic pain syndrome. In addition to the pain, this can include: ??? Anxiety ??? Depression ??? Anger ??? Changed lifestyle It's important to talk with your healthcare team about these. You will need treatment for these problems in addition to treatment for pain. ?? Last Reviewed Date: 2022 ?? [id number] [employer]. All rights reserved. This information is not intended as a substitute for professional medical care. Always follow your healthcare professional's instructions. ?? * Event Display: Provider Clarification Note Please click on pdf link to open report * Renee Phillips RN: PERFORM Event Display: Discharge/Transfer Note Hospital Authored Date: [id number] Discharge Planning Nursing Entered On: 07/17/2023 12:56 EDT Performed On: 07/17/2023 12:55 EDT by Renee Phillips RN Discharge Planning Nursing Anticipated discharge : Unable to determine Renee Phillips RN - 07/17/2023 12:55 EDT Patient Care team information Care Team Personnel Name: Glo Camarena RN Position: [facility] RN Member Role: Primary Care Nurse Name: Fatimah Bennett RN Position: [facility] RN Member Role: Primary Care Nurse Name: Mariely Hardy RN Position: [facility] RN Member Role: Primary Care Nurse Name: Marleen Uriarte RN Position: [facility] RN Member Role: Primary Care Nurse Name: Sydney Zelaya Position: [facility] SN Support Member Role: Lifetime Consulting Physician Name: Judd Barahona RN Position: [facility] RN Member Role: Primary Care Nurse Name: Tayler Blackwell RN Position: [facility] RN Supv Member Role: Primary Care Nurse Name: Mag Harry RN Position: [facility] RN Member Role: Primary Care Nurse Name: An Blount RN Position: [facility] RN Supv Member Role: Primary Care Nurse Name: Guru Whitley RN Position: [facility] [facility] RN Member Role: Primary Care Nurse Name: Rebecca Whitley RN Position: [facility] RN Member Role: Primary Care Nurse Name: Marianna Ng RN Position: [facility] RN Member Role: Primary Care Nurse Name: Avani Odell RN Position: [facility] RN Member Role: Primary Care Nurse Name: Lisbet Hickman RN Position: [facility] RN Member Role: Primary Care Nurse Name: Ruben Bello RN Position: [facility] RN Member Role: Primary Care Nurse Name: Araceli Simon RN Position: [facility] RN Member Role: Primary Care Nurse Name: Judi Streeter RN Position: [facility] RN Member Role: Primary Care Nurse Name: Moni Dugan RN Position: [facility] RN Member Role: Primary Care Nurse Name: Jorge Garcia III, MD Position: Reference Physician Member Role: PCP Address: Address: [address] [place] [id number] Name: Misty Nguyen RN Position: [facility] RN Member Role: Primary Care Nurse Name: Hetal Archer LPN Position: [facility] RN Member Role: Primary Care Nurse Name: Joyce Cobb Position: [facility] RN Member Role: Primary Care Nurse Name: Sarwat Aj RN Position: [facility] RN Member Role: Primary Care Nurse Name: César Patel RN Position: [facility] RN Member Role: Primary Care Nurse Name: Cassi Batista RN Position: [facility] RN Member Role: Primary Care Nurse Name: Daija Huitron RN Position: [facility] RN Member Role: Primary Care Nurse Name: Ellis Mayfield RN Position: [facility] RN Supv Member Role: Primary Care Nurse Name: Ayah Robison RN Position: [facility] RN Member Role: Primary Care Nurse Name: Kirstin Enriquez RN Position: [facility] RN Member Role: Primary Care Nurse Name: Radha Moreno RN Position: [facility] RN Member Role: Primary Care Nurse Name: Barb Cueto RN Position: [facility] RN Member Role: Primary Care Nurse Name: Jina Smalls RN Position: [facility] RN Member Role: Primary Care Nurse Name: Laura Clements RN Position: [facility] RN Member Role: Primary Care Nurse Name: Colette Syed RN Position: [facility] RN Member Role: Primary Care Nurse Name: Muriel Daley RN Position: [facility] RN Supv Member Role: Primary Care Nurse Name: Jade Valencia LPN Position: [facility] RN Member Role: Primary Care Nurse Name: Cooper Vyas RN Position: [facility] RN Member Role: Primary Care Nurse Name: Judith Rojas LPN Position: [facility] RN Member Role: Primary Care Nurse Name: Sydney Raza RN Position: [facility] RN Member Role: Primary Care Nurse Name: Josselin Manning Position: [facility] RN Member Role: Primary Care Nurse Name: Rachna Renteria RN Position: [facility] RN Member Role: Primary Care Nurse Name: Zohreh Pink RN Position: [facility] RN Member Role: Primary Care Nurse Name: Sophie Berrios RN Position: [facility] RN Member Role: Primary Care Nurse Name: Grisel Mcgowan RN Position: [facility] RN Member Role: Primary Care Nurse Name: Uyen Mitchell RN Position: [facility] RN Member Role: Primary Care Nurse Name: Nasra Smith NP Position: Reference Physician Member Role: Primary Care Nurse Address: Address: [address] [place] [address] Name: Concepción Hess RN Position: [facility] RN Member Role: Primary Care Nurse Name: Arminda Knox RN Position: [facility] RN Member Role: Primary Care Nurse Name: Silas Knox RN Position: [facility] RN Member Role: Primary Care Nurse Name: Elham Lee RN Position: [facility] AMB Nurse Member Role: Primary Care Nurse Name: Dariana Mariee RN Position: [facility] RN Member Role: Primary Care Nurse Name: Ana María Cat RN Position: [facility] RN Member Role: Primary Care Nurse Name: Janet Pacheco RN Position: [facility] RN Member Role: Primary Care Nurse Name: Flor Holley Position: [facility] RN Member Role: Primary Care Nurse Name: Bret Aguirre RN Position: [facility] RN Member Role: Primary Care Nurse Name: Audra Martinez RN Position: [facility] RN Member Role: Primary Care Nurse Name: Aure Purcell RN Position: [facility] RN Member Role: Primary Care Nurse Name: Radha Montano RN Position: [facility] RN Member Role: Primary Care Nurse Name: Shahbaz Bobo RN Position: [facility] RN Member Role: Primary Care Nurse Name: Jimi Coley RN Position: [facility] RN Member Role: Primary Care Nurse Name: Jennifer Yin LPN Position: [facility] RN Member Role: Primary Care Nurse Name: Alina Arce RN Position: [facility] RN Member Role: Primary Care Nurse Name: Judi Krueger RN Position: [facility] RN Member Role: Primary Care Nurse Name: Magdi Patiño RN Position: [facility] RN Member Role: Primary Care Nurse Name: Kasia Lund RN Position: [facility] RN Member Role: Primary Care Nurse Name: Rachna Serrano RN Position: [facility] RN Member Role: Primary Care Nurse Name: Naveen Villalobos RN Position: [facility] RN Member Role: Primary Care Nurse Name: Radha Masterson RN Position: [facility] RN Member Role: Primary Care Nurse Name: Landy Villarreal RN Position: [facility] RN Member Role: Primary Care Nurse Name: Adria Bell RN Position: [facility] RN Member Role: Primary Care Nurse Name: Amy Larios RN Position: [facility] RN Member Role: Primary Care Nurse Name: Berna Hamm RN Position: [facility] RN Member Role: Primary Care Nurse Name: Indira Lindsey RN Position: [facility] SN RN Member Role: Primary Care Nurse Name: Rosa Elena Pope RN Position: [facility] RN Member Role: Primary Care Nurse Name: Florentino Garcia RN Position: [facility] RN Member Role: Primary Care Nurse Name: Cristel Moreno RN Position: [facility] RN Member Role: Primary Care Nurse Name: Rosa Elena De León RN Position: [facility] Dietetic Aide Member Role: Primary Care Nurse Name: Nell Lagos RN Position: [facility] RN Member Role: Primary Care Nurse Name: Rita Rodriguez RN Position: [facility] RN Member Role: Primary Care Nurse Name: Judi Hamilton RN Position: [facility] RN Member Role: Primary Care Nurse Name: Tulio Pina RN Position: [facility] RN Member Role: Primary Care Nurse Name: Narda Barnes RN Position: [facility] RN Member Role: Primary Care Nurse Name: Zoë Cisse RN Position: [facility] RN Member Role: Primary Care Nurse Name: Pat Bowers RN Position: [facility] SN RN Member Role: Primary Care Nurse Name: Gemma Chavira RN Position: [facility] RN Member Role: Primary Care Nurse Name: Ruy Salcido RN Position: [facility] RN Member Role: Primary Care Nurse Name: Hilaria Aparicio RN Position: [facility] RN Member Role: Primary Care Nurse Name: Carly Rosado RN Position: [facility] RN Neil Member Role: Primary Care Nurse Name: Taryn Rosado RN Position: [facility] RN Member Role: Primary Care Nurse Name: Sydney Rosado RN Position: [facility] RN Member Role: Primary Care Nurse Name: Vidhi Wilkins RN Position: [facility] RN Member Role: Primary Care Nurse Name: Uriel Dumont Position: [facility] RN Member Role: Primary Care Nurse Name: Selene Vazquez RN Position: [facility] RN Member Role: Primary Care Nurse Name: César Gerber RN Position: [facility] RN Member Role: Primary Care Nurse Name: Tayler Kovacs RN Position: [facility] RN Member Role: Primary Care Nurse Name: Dariana Becerra RN Position: [facility] RN Member Role: Primary Care Nurse Name: Leyla Verma LPN Position: [facility] RN Member Role: Primary Care Nurse Name: Rody Mays RN Position: [facility] RN Member Role: Primary Care Nurse Name: Marielos Mixon RN Position: [facility] RN Member Role: Primary Care Nurse Name: Radha Flores RN Position: [facility] RN Member Role: Primary Care Nurse Name: Judi Rainey RN Position: [facility] RN Member Role: Primary Care Nurse Name: Hioplito Giles RN Position: [facility] RN Member Role: Primary Care Nurse Name: Rose Kyle RN Position: [facility] Hospital Dietetic Aide Member Role: Primary Care Nurse Name: Nida Gonsalves Position: [facility] RN Member Role: Primary Care Nurse Name: Aimee Salamanca RN Position: [facility] RN Member Role: Primary Care Nurse Name: Jacobo Caceres Position: [facility] RN Member Role: Primary Care Nurse Name: Savanna PINK Attending Position: [facility] ED Medicine MD Name: Jessica Lindsay Position: [facility] ED OA Charge Member Role: ED Associate Name: Kyleigh Szymanski Position: [facility] ED RN W/OE and Tasks Member Role: Patient Care Provider Name: Hetal Torres Position: [facility] ED TA [facility] Member Role: Optical Goods Worker Name: Ming Colvin MD Position: [facility] Resident Member Role: ED Resident Address: Address: [address] [place] [address] [place] [address]- [place] Care Team Related Persons Name: STEVENSON HAMM Address: home [address] [address] Name: MELINA BRUMFIELD Address: home Name: GARRY BRUMFIELD Address: home [address] [address]
--- OUTSIDE RECORDS SUMMARY | 2023-08-15 20:27 | XMS_ITS | Continuity of Care Document ---
Author Name Unknown Organization [facility] Address [address] [place] [address]- Care Team Providers Care Public Speaking Instructor Name Role Phone Jose LEE MD, Joreg Tsang [id number]s): [facility]13[facility] - 11/18/22 [facility] [address] [place] [address] Attending Physician: Donaldo Poe MD Admitting Physician: Donaldo Poe MD Referring Physician: Jorge Garcia III, MD Allergies, Adverse Reactions, Alerts Substance Reaction Severity Status naproxen lesions on lips Active Toradol Morphine allergy Metaxalone Naproxen Cephalexin allergy hives Persistent Mild Active Keflex 1 rash Active Skelaxin H/O: migraine Active 1tolerates pip/tazo 11/17 Immunizations Given and Recorded Vaccine Date Status Refusal Reason [id number] 12y+ bivalent booster vax 08/23/22 Recorded SARS-CoV-2 [...] Bubba rded influenza virus vaccine, inactivated 09/02/15 Bubab rded influenza virus vaccine, inactivated 08/07/14 Bubba [...] Refills, Maintenance, 07/16/22 12:59:00 EDT, Tablet, [facility]/pharmacy #[id number], [...] Team Personnel Name: Era SHANNON, Michael Position: [facility] RN Member Role: Primary Care Nurse Name: Radha Hsieh RN [facility] Name: Judd Barahona RN Position: [facility] RN Member Role: Primary Care [...] Care Nurse Name: Elizabeth Noriega RN Position: [facility] RN Member Role: Primary Care Nurse Name: Ruben Bello RN Position: [facility] RN Member Role: Primary Care Nurse Name: Zoë Thompson RN Position: [facility] RN Member Role: Primary Care Nurse Name: Araceli Simon RN Position: [facility] RN Member Role: Primary Care Nurse Name: Jorge Garcia III, MD Position: [facility] Ambulatory (view) Member Role: PCP Address: Address: [address] [place] [address] Name: Misty Nguyen RN [facility] Care Nurse Name: Maribell Mejias RN Position: [facility] RN Member Role: Primary Care Nurse Name: Rachna Renteria RN Position: [facility] RN Member Role: Primary Care Nurse Name: Zohreh Pink RN Position: [facility] RN Member Role: Primary Care Nurse Name: Sophie Berrios RN Position: [facility] RN [...] Knox RN Position: [facility] RN Member Role: Primary Care Nurse Name: Elham Melgar RN Position: [facility] RN Member Role: Primary Care Nurse Name: Elham Lee RN Position: [facility] PCO RN Member Role: Primary [...] De León RN Position: [facility] Elevator Constructor Hydraulic Member Role: Primary Care Nurse Name: Tulio [...] Care Nurse Name: Pat Bowers RN Position: [facility] SN [...] RN Position: [facility] RN Supadelaida Member Role: Primary [...] Name: Rose Kyle RN Position: [facility] Elevator Constructor Hydraulic Member Role: Primary Care Nurse Name: Aimee Salamanca Position: [facility] RN Member Role: Primary Care Nurse Name: Jacobo Caceres Position: [facility] RN Member Role: Primary Care Nurse Care Team Related Persons Name: STEVENSON HAMM Address: home [address] [place] [id number] Name: MELINA VARMA Address: [place] [address] Name: GARRY VARMA Address: home [address] [place] [id number] Name: BRIEN LANCASTER Address: home [address] [place] [address]
--- OUTSIDE RECORDS SUMMARY | 2023-08-15 20:27 | XMS_ITS | Continuity of Care Document ---
Author Name Unknown Organization [facility] ter Address [address] [place] [address]- Care Team Providers Care Monument Erector Name Role Phone Jose LEE MD, Jorge Tsang Primary Care Physician Encounter [facility] Date(s): 06/02/22 - 06/05/[address] [address]- Encounter Diagnosis Respiratory failure(Final) - 06/02/22 COPD exacerbation(Final) - 06/02/22 Discharge Disposition: A-D/C Home Attending Physician: Jair Del Rosario MD Admitting Physician: Justo Shen MD Referring Physician: Not on Staff, Referring [...] opioid drug. Start Date: 04/06/22 Status: Ordered Acetaminophen Tablet 650 mg, Tablet, By Mouth, 06/05/22 9:00:00 EDT, Stop date 06/05/22 9:00:00 EDT Start Date: 06/05/22 Stop Date: 06/05/22 Status: Completed albuterol 0.083% inhalation solution 3 mL = 2.5 mg, Neb, Every 4 hours, PRN Wheezing/Shortness of Breath, j44.9, # 540 mL, 6 Refills, Maintenance, 07/24/20 16:44:00 EDT, [facility]/pharmacy #[id number], 182, cm, 05/26/20 16:01:00 EDT, Height, [...] 06/09/22 12:58:00 EDT, 05/26/22 12:58:00 EDT, Ointment, [facility]/pharmacy #[id number], Partial fill upon patient request if the prescription is for a schedule... Start Date: 05/26/22 Stop Date: 06/09/22 Status: Ordered Carafate 1 gm oral tablet 1 Gm, 1, tablet, By Mouth, 3 times a day before meals and bedtime, # 28 tablet, Refills 0, Tot. Refills 0, Maintenance, 06/05/22 9:51:00 EDT, Route to Pharmacy Electronically, [facility]/pharmacy #[id number], Partial fill upon patient request if the prescription i... Start Date: 06/05/22 Stop Date: 06/12/22 Status: Ordered Dilaudid Inj 1 mg, Injection, IV Push Slowly, Every 4 hours, PRN for Pain , Severe, Routine, 06/02/22 20:09:00 EDT Start Date: 06/02/22 Stop Date: 06/05/22 Status: Discontinued duloxetine 60 mg oral enteric [...] oral capsule 600 mg, Capsule, By Mouth, 06/05/22 9:00:00 EDT Start Date: 06/05/22 Stop Date: 06/05/22 Status: Completed gabapentin 300 mg oral capsule 600 mg, 2, capsule, By Mouth, 3 times a day, # 180 capsule, Refills 0, Tot. Refills 0, Maintenance,05/16/22 16:21:00 EDT, Route to Pharmacy Electronically, [facility], Partial fill upon patient request if the prescription is for a sched... Start Date: 05/16/22 Status: Ordered Incruse Ellipta 62.5 mcg/inh inhalation powder 1 each, Inhalation, Every 24 hours, doses should be taken at least 24 hours apart, j44.9, # 1 each,6 Refills, Maintenance, 03/21/22 9:48:00 EDT, Powder, [facility]/pharmacy #[id number], 182, cm, 03/12/22 4:49:00EDT, Height, 56.7, [...] 0 Refills, Maintenance, 04/03/22 16:44:00 EDT, Film, [facility]/pharmacy #[id number], Partial fill upon patient request if [...] oral tablet 2.5 mg, Tablet, By Mouth, 06/05/22 9:00:00 EDT Start Date: 06/05/22 Stop Date: 06/05/22 Status: Completed loperamide 2 mg oral capsule [...] 06/05/22 9:52:00 EDT, Route to Pharmacy Electronically, [facility]/pharmacy #[id number], Partial fill upon patient request... Start Date: [...] 04/10/22 11:40:00 EDT, Route to Pharmacy Electronically, [facility]/pharmacy #[id number], Partial fill upon patientrequest if the prescription is for a schedule II op... Start Date: 04/10/22 Status: Ordered Toprol XL 25 mg oral tablet, extended release 25 mg, XL Tablet, By Mouth, 06/05/22 9:00:00 EDT Start Date: 06/05/22 Stop Date: 06/05/22 Status: Completed Toprol XL 25 mg oral tablet, extended release 25, mg, 1, tablet, By Mouth, Daily, 30, tablet, 6, 6, 03/31/07 11:15:26, Print MARTIN Number, ADS [facility], [address] [place] [address], [id number], Constant Indicator Start Date: 03/31/07 Stop Date: [...] Range]: 1 2 3 Height 183 cm (06/05/22 8:11 AM) 183 cm (06/04/22 8:04 AM) 183 cm (06/02/22 8:34 PM) Weight 56.5 kg (06/04/22 8:04 AM) 56.5 kg (06/02/22 8:34 PM) 56.5 kg (06/02/22 8:00 PM) Oxygen Saturation [94-100 %] 100 % (06/05/22 8:11 AM) 99 % (06/04/22 8:00 PM) 98 % (06/04/22 2:00 PM) Pulse Rate [55-90 bpm] 67 bpm (06/05/22 8:14 AM) 67 bpm (06/05/22:11 AM) 70 bpm (06/04/22 8:00 PM) Body Mass Index [18.5-24.99] 16.87 *L* (06/04/22 8:04 AM) 16.87 *L* (06/02/22 8:34 PM) Blood Pressure [90-138/55-84 mm Hg] 118/75mm Hg (06/05/22 8:14 AM) 118/75mm Hg (06/05/22 8:14 AM) 118/75mm Hg (06/05/22 8:11 AM) Respiratory Rate [16-30 br/min] 16 br/min (06/05/22 10:34 AM) 16 br/min (06/05/22 9:30 AM) 16 br/min (06/05/22 9:30 AM) Temperature [96.8-100.4 DegF] 98.2 DegF (06/05/22 8:11 AM) 97.8 DegF (06/04/22 8:00 PM) 98.5 DegF (06/04/22 2:00 PM) Liters per Minute 3 L/min (06/04/22 8:00 PM) 3 L/min (06/04/22 2:00 PM) 4 L/min (06/04/22 9:51 AM) Mode of Delivery (Oxygen) Room air (06/05/22 8:11 AM) Nasal cannula (06/04/22 8:00 PM) Nasal cannula (06/04/22 2:00 PM) Blood pressure sites Arm, right (06/05/22 8:11 AM) Arm, left (06/04/22 8:00 PM) Arm, left (06/04/22 2:00 PM) Temperature Route Oral (06/05/22 8:11 AM) Oral (06/04/22 8:00 PM) Oral (06/04/22 2:00 PM) Dry Weight 56.5 kg (06/02/22 8:34 PM) Weight Obtained Via Bed scale (06/02/22 8:34 PM) Dry Weight Obtained Via Bed scale (06/02/22 8:34 PM) Social History Social History Type Response Tobacco Use: 4 or less cigar ettes(less than 1/4 pack)/day in last 30 days. Sex
--- OUTSIDE RECORDS SUMMARY | 2023-08-15 20:27 | XMS_ITS | Continuity of Care Document ---
Author Name Unknown Organization [facility] ter Address [address] [place] [address]- Care Team Providers Care Shrink Pit Operator Name Role Phone Jose LEE MD, Jorge Tsang Primary Care Physician Encounter [facility] Date(s): 03/24/20 - 03/24/[address] [address]- [place] Encounter Diagnosis Right knee pain(Final) - 03/24/20 Discharge Disposition: A-D/C Home Attending Physician: Sydney Rashid DO Admitting Physician: Sydney Rashid DO Referring Physician: Not on Staff, Referring [...] 10:39:00 EST, Aerosol, Route to Pharmacy Electronically, [id number], [facility]/pharmacy #[id number], 182, cm, 12/26/19 9:43:00 [...] Refills, Soft Stop, 12/26/19 9:58:00 EST, Tablet, [facility]/pharmacy #[id number], 182, cm, 12/26/19 9:43:00 EST, Height, [...] 1 each, 0 Refills, Maintenance, 03/24/20 22:05:00EDT, [facility]/pharmacy #[id number], Apply to right knee for [...] 0 Refills, Maintenance, 03/12/20 17:24:00 EDT, Tablet, [facility]/pharmacy #[id number], 182, cm, 03/05/20 9:03:00 EDT, Height, 56.4, kg, 07/11/19 18:58:00 EDT, Dry Weight Start Date: 03/12/20 Status: Ordered predniSONE 5 mg oral tablet See Instructions, 05/03-5/5-4/4-3/3-2/2-1/1 tablets 2 days each, # 42 tablet, 0 Refills, Maintenance,03/12/20 17:23:00 EDT, [facility]/pharmacy #[id number], 182, cm, 03/05/20 9:03:00 EDT, Height, 56.4, kg, 07/11/19 18:58:00 EDT, Dry Weight Start Date: 03/12/20 Status: Ordered predniSONE 5 mg oral tablet See Instructions, 05/03-5/5-4/4-3/3-2/2-1/1 tablets 2 days each, # 42 tablet, 0 Refills, Maintenance,03/05/20 9:43:00 EDT, [facility]/pharmacy #[id number], 182, cm, 03/05/20 9:03:00 EDT, Height, [...] 6, 03/31/07 11:15:26, Print MARTIN Number, [facility] [address] [place] [address], [id number], Constant Indicator Start Date: 03/31/07 Stop Date: [...] Multiple fractures of ribs(Confirmed) 01/06/11 Active Old ME (myocardial infarctio n) X 3(Confirmed) Active PVD (peripheral vascular disease)(Confirmed) Active Active smoker, 1/2 upto 2 pp d X >30 years(Confirmed) Active 1Cardiac stents 1991, 1995 Results Radiology Reports * Exam Date Time Procedure Performing Provider Status 03/24/20 7:44 PM Knee 3 Views Right Sergio Lyssa; Auth (Verified) Notes: (Knee 3 Views Right) Reason For Exam: with Pain;Trauma RESULT: Knee 3 Views Right Knee 3 Views Right Refer to EMR; Reason: Trauma; with Pain; Clinical Question(s): Fracture; Special Instructions: Patella ([place] View); Hx of Present Illness: Three days ago pt was walking with his rollator and tripped over raised sidewalk and hit right knee on cement. also states he cut L leg during fall. denies any neck back pain.; Other Objective Findings: pt alert, oriented, sitting in wheelchair at desk. skin COMPARISON: 11/23/2011. FINDINGS: There is no evidence of acute fracture or dislocation. The bones appear demineralized. 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 The joint spaces are preserved. Extensive atherosclerotic vascular calcifications. IMPRESSION: Demineralized bones without evidence of acute fracture or dislocation. WSN: [id number] Ordering Physician: Carlee Hardy Dictated By: Shannan Heredia MD Dictated Date/Time: 03/24/20 7:55 pm Reviewed By: Shannan Heredia MD Signed By: Shannan Heredia MD Signed Date/Time: 03/24/20 7:55 pm Transcribed By: BERENICE Transcribed Date/Time: 03/24/20 7:47 pm Vital Signs Most recent to oldest [Reference Range]: 1 2 3 Oxygen Saturation [94-100 %] 100 % (03/24/20 8:10 PM) 98 % (03/24/20 4:58 PM) Pulse Rate [55-90 bpm] 67 bpm (03/24/20 8:10 PM) 71 bpm (03/24/20 4:58 PM) Blood Pressure [90-138/55-84 mm Hg] 135/69mm Hg (03/24/20 8:10 PM) 141/75mm Hg *H* (03/24/20 4:58 PM) Respiratory Rate [16-30 br/min] 18 br/min (03/24/20 10:12 PM) 8 br/min *L* (03/24/20 8:15 PM) 20 br/min (03/24/20 8:10 PM) Temperature [96.8-100.4 DegF] 98.7 DegF (03/24/20 4:58 PM) Liters per Minute 2 L/min (03/24/20 8:10 PM) 2 L/min (03/24/20 4:58 PM) Mode of Delivery (Oxygen) Nasal cannula (03/24/20 8:10 PM) Nasal cannula (03/24/20 4:58 PM) Temperature Route Oral (03/24/20 4:58 PM) Social History Social History Type Response Tobacco Use: Former smoker.. Sex
--- OUTSIDE RECORDS SUMMARY | 2023-08-15 20:27 | XMS_ITS | Continuity of Care Document ---
Author Name Unknown Organization [facility] Address [address] [place] [address]- Care Team Providers Care Filler Mixer Name Role Phone Jorge Garcia III, MD Primary Care Physician [place] [facility] [place]): [place]/14/20 - 08/14/20 [facility] [address] [place] [address] [place] [address]- [facility] Attending Physician: Pardeep Ambriz MD Admitting Physician: Pardeep Ambriz MD Referring Physician: Jorge Garcia III, MD [...] 16:44:00 EDT, Aerosol, Route to Pharmacy Electronically, [id number], [facility]/pharmacy #[id number], 182, cm, 05/26/20 16:01:00 E... [...] each,6 Refills, Maintenance, 08/13/20 16:33:00 EDT, Powder, [facility]/pharmacy #[id number], 182, cm, 05/26/20 16:01:00 EDT, [...] 03/31/07 11:15:26, Print MARTIN Number, ADS OPPT, [address] [place] [address], [id number], Constant Indicator Start Date: 03/31/07 Stop Date: [...] Multiple fractures of ribs(Confirmed) 01/06/11 Active Old NC (myocardial infarctio n) X 3(Confirmed) Active PVD (peripheral vascular disease)(Confirmed) Active 1Cardiac stents 1991, 1995 Social History Social History Type Response Tobacco Use: Former smoker.. Sex Male
--- OUTSIDE RECORDS SUMMARY | 2023-08-15 20:27 | XMS_ITS | Continuity of Care Document ---
Author Name Unknown Organization [facility] Address [address] [place] [address]- Care Team Providers Care Hearing Aid Repair Technician Name Role Phone Jose LEE MD, Jorge Tsang Primary Care Physician [place] [facility] [place] 04[place]/23 [facility] [address] [place] [id number] Attending Physician: Admtr, Anabel Admitting Physician: Admtr, Anabel Referring Physician: Admtr, Ar8 Allergies, Adverse Reactions, Alerts Substance Reaction Severity Status naproxen lesions on lips Active Toradol Morphine allergy Metaxalone Naproxen Cephalexin allergy hives Persistent Mild Active Keflex 1 rash Active Skelaxin H/O: migraine Active 1tolerates pip/tazo 11/17 Immunizations Given and Recorded Vaccine Date Status Refusal Reason [id number] 12y+ bivalent booster vax 08/23/22 Recorded SARS-CoV-2 [...] 04/18/23 9:02:00 EDT, 03/19/23 9:02:00 EDT, Patch, [facility]/pharmacy #[id number], Partial fill upon patient request if [...] 1/4 pack)/day in last 30 days. Sex Laboratory * Event Display: Non BH Lab Results Authored Date: * Event Display: Non BH Lab Results Authored Date: * Event Display: Non Lab Results Authored Date: Patient Care team information Care Team Personnel Name: Glo Camarena RN Position: [facility] RN Member Role: Primary Care Nurse Name: Fatimah Bennett RN Position: [facility] RN Member Role: Primary Care Nurse Name: Mariely Hardy RN Position: [facility] RN Member Role: Primary Care Nurse Name: Marleen Uriarte RN Position: [facility] RN Member Role: Primary Care Nurse Name: Sydney Zelaya Position: [facility] PCO OFFICE STAFF Member Role: Lifetime Consulting Physician Name: Judd Barahona RN Position: [facility] RN Member Role: Primary Care Nurse Name: Mag Harry RN Position: [facility] RN Member Role: Primary Care Nurse Name: An Blount RN Position: [facility] RN Supv Member Role: Primary Care Nurse Name: Marianna Ng RN Position: [facility] SN RN Member Role: Primary Care Nurse Name: Avani Odell RN Position: [facility] RN Member Role: Primary Care Nurse Name: Lisbet Hickman RN Position: [facility] RN Member Role: Primary Care Nurse Name: Ruben Bello RN Position: [facility] RN Member Role: Primary Care Nurse Name: Araceli Simon RN Position: [facility] RN Member Role: Primary Care Nurse Name: Moni Dugan RN Position: [facility] RN Member Role: Primary Care Nurse Name: Jorge Garcia III, MD Position: Reference Physician Member Role: PCP Address: Address: [address] [place] [address]- Name: Misty Nguyen RN Position: S RN Member Role: Primary Care Nurse Name: Joyce Cobb Position: S RN Member Role: Primary Care Nurse Name: Sarwat Aj RN Position: S RN Member Role: Primary Care Nurse Name: Cassi Batista RN Position: S RN Member Role: Primary Care Nurse Name: Yanni Holland RN Position: S RN Member Role: Primary Care Nurse Name: Daija Huitron RN Position: S RN Member Role: Primary Care Nurse Name: Ellis Mayfield RN Position: [facility] RN Supv Member Role: Primary Care Nurse Name: Ayah Robison RN Position: S RN Member Role: Primary Care Nurse Name: Kirstin Enriquez RN Position: [facility] RN Member Role: Primary Care Nurse Name: Radha Moreno RN Position: [facility] RN Member Role: Primary Care Nurse Name: Jina Smalls RN Position: [facility] RN Member Role: Primary Care Nurse Name: Laura Clements RN Position: [facility] RN Member Role: Primary Care Nurse Name: Colette Syed RN Position: [facility] RN Member Role: Primary Care Nurse Name: Muriel Daley RN Position: [facility] RN Supv Member Role: Primary Care Nurse Name: Darlyn Alvarez RN Position: [facility] RN Member Role: Primary Care Nurse Name: Zohreh Pink RN Position: [facility] RN Member Role: Primary Care Nurse Name: Sophie Berrios RN Position: S RN Member Role: Primary Care Nurse Name: Grisel Mcgowan RN Position: [facility] RN Member Role: Primary Care Nurse Name: Uyen Mitchell RN Position: [facility] RN Member Role: Primary Care Nurse Name: Nasra Smith NP Position: Reference Physician Member Role: Primary Care Nurse Address: Address: [address] [place] [address]- [place] Name: Cindy Grullon RN Position: S RN Supv Member Role: Primary Care Nurse Name: Silas Knox RN Position: [facility] RN Member Role: Primary Care Nurse Name: Elham Lee RN Position: [facility] PCO RN Member Role: Primary Care Nurse Name: Dariana Mariee RN Position: [facility] RN Member Role: Primary Care Nurse Name: Ana María Cat RN Position: [facility] RN Member Role: Primary Care Nurse Name: Flor Holley Position: [facility] RN Member Role: Primary Care Nurse Name: Bret Aguirre RN Position: [facility] RN Member Role: Primary Care Nurse Name: Ghazal Moreno Position: [facility] RN Member Role: Primary Care Nurse Name: Audra Martinez RN Position: [facility] RN Member Role: Primary Care Nurse Name: Shahbaz Bobo RN Position: [facility] RN Member Role: Primary Care Nurse Name: Jennifer Yin LPN Position: [facility] RN Member Role: Primary Care Nurse Name: Alina Arce RN Position: [facility] RN Member Role: Primary Care Nurse Name: Radha Masterson RN Position: [facility] RN Member Role: Primary Care Nurse Name: Landy Villarreal RN Position: [facility] RN Member Role: Primary Care Nurse Name: Amy Larios RN Position: [facility] RN Member Role: Primary Care Nurse Name: Indira Lindsey RN Position: [facility] SN RN Member Role: Primary Care Nurse Name: Rosa Elena Pope RN Position: [facility] RN Member Role: Primary Care Nurse Name: Florentino Garcia RN Position: [facility] RN Member Role: Primary Care Nurse Name: Cristel Moreno RN Position: [facility] SN RN Member Role: Primary Care Nurse Name: Rosa Elena De León RN Position: [facility] French Professor Member Role: Primary Care Nurse Name: Tulio Pina RN Position: [facility] RN Member Role: Primary Care Nurse Name: Maximiliano Claros RN Position: [facility] RN Member Role: Primary Care Nurse Name: Narda Barnes RN Position: [facility] RN Member Role: Primary Care Nurse Name: Zoë Cisse RN Position: [facility] RN Member Role: Primary Care Nurse Name: Pat Bowers RN Position: [facility] SN RN Member Role: Primary Care Nurse Name: Ruy Salcido RN Position: [facility] RN Member Role: Primary Care Nurse Name: Hilaria Aparicio RN Position: [facility] RN Member Role: Primary Care Nurse Name: Carly Rosado RN Position: [facility] RN Supv Member Role: Primary Care Nurse Name: Taryn Rosado RN Position: [facility] RN Member Role: Primary Care Nurse Name: Sydney Rosado RN Position: [facility] RN Member Role: Primary Care Nurse Name: Uriel Dumont Position: [facility] RN Member Role: Primary Care Nurse Name: Selene Vazquez RN Position: [facility] RN Member Role: Primary Care Nurse Name: Dariana Becerra RN Position: [facility] RN Member Role: Primary Care Nurse Name: Leyla Verma LPN Position: [facility] RN Member Role: Primary Care Nurse Name: Rody Mays RN Position: [facility] RN Member Role: Primary Care Nurse Name: Marielos Mixon RN Position: [facility] RN Member Role: Primary Care Nurse Name: Radha Flores RN Position: [facility] RN Member Role: Primary Care Nurse Name: Leona Alvarez RN Position: [facility] RN Member Role: Primary Care Nurse Name: Rose Kyle RN Position: [facility] French Professor Member Role: Primary Care Nurse Name: Aimee Salamanca RN Position: [facility] RN Member Role: Primary Care Nurse Name: Jacobo Caceres Position: [facility] RN Member Role: Primary Care Nurse Care Team Related Persons Name: STEVENSON HAMM Address: home [address] Name: MELINA VAMRA Address: [place] [address] Name: GARRY VARMA Address: home [address] Name: BRIEN LANCASTER Address: home [address]
--- OUTSIDE RECORDS SUMMARY | 2023-08-15 20:27 | XMS_ITS | Continuity of Care Document ---
Author Name Unknown Organization [facility] Address [address] [address]- Care Team Providers Care Leguillon Debeader Name Role Phone Jorge Garcia III, MD Primary Care Physician [phone] Encounter [facility] [place] Date(s): 11/06/20 - 12/06/20 [facility] [address] [place] [address] [place] [address] Allergies, Adverse Reactions, Alerts Substance Reaction Severity [...] 16:44:00 EDT, Aerosol, Route to Pharmacy Electronically, [id number], [facility]/pharmacy #[id number], 182, cm, 05/26/20 16:01:00 E... [...] each,6 Refills, Maintenance, 08/13/20 16:33:00 EDT, Powder, [facility]/pharmacy #[id number], 182, cm, 05/26/20 16:01:00 EDT, [...] 0 Refills, Maintenance, 09/22/20 9:05:00 EDT, Tablet, [facility]/pharmacy #[id number], 182, cm, 09/18/2013:10:00 EDT, Height, 67, kg, 07/05/20 13:57:00 EDT... Start Date: 09/22/20 Status: Ordered roflumilast 500 mcg oral tablet 1 tablet = 500 mcg, By Mouth, Daily, # 30 tablet, 11 Refills, Maintenance, 05/15/20 13:53:00 EDT, [facility]/pharmacy #[id number], 182, cm, 05/15/20 13:20:00 EDT, [...] 11:15:26, Print MARTIN Number, ADS OPPT, [address] [place] [address], [id number], Constant Indicator Start Date: 03/31/07 Stop Date: [...]
--- OUTSIDE RECORDS SUMMARY | 2023-08-15 20:27 | XMS_ITS | Continuity of Care Document ---
Author Name Unknown Organization [facility] Address [address] [place] [address]- Care Team Providers Care Staffing Administrator Name Role Phone Jose LEE MD, Jorge Tsang Primary Care Physician [phone] [place] [facility] [place](s): 11/17/22 - 01/27/23 [facility] [address] [place] [address]- Attending Physician: Delmar Gonzalez MD Admitting Physician: Delmar Gonzalez MD Allergies, Adverse Reactions, Alerts Substance Reaction Severity Status naproxen lesions on lips Active Toradol Morphine allergy Metaxalone Naproxen Cephalexin allergy hives Persistent Mild Active Keflex 1 rash Active Skelaxin H/O: migraine Active 1tolerates pip/tazo 11/17 Immunizations Given and Recorded Vaccine Date Status Refusal Reason [id number] 12y+ bivalent booster vax 08/23/22 Recorded SARS-CoV-2 [...] Refills, Maintenance, 07/16/22 12:59:00 EDT, Tablet, [facility]/pharmacy #[id number], Partial fill upon patient [...] Team Personnel Name: Radha Hsieh RN Position: [facility] RN Member Role: Primary Care Nurse Name: Glo Camarena RN Position: [facility] RN Member Role: Primary Care Nurse Name: Fatimah Bennett RN Position: [facility] RN Member Role: Primary Care Nurse Name: Mariely Hardy RN Position: [facility] RN Member Role: Primary Care Nurse Name: Marleen Uriarte RN Position: [facility] RN Member Role: Primary Care Nurse Name: Sydney Zelaya Position: [facility] PCO OFFICE STAFF Member Role: Lifetime Consulting Physician Name: Judd Barahona RN Position: [facility] RN Member Role: Primary Care Nurse Name: Mag Harry RN Position: [facility] RN Member Role: Primary Care Nurse Name: An Blount RN Position: [facility] RN Supv Member Role: Primary Care Nurse Name: Marianna Ng RN Position: [facility] SN RN Member Role: Primary Care Nurse Name: Avani Odell RN Position: [facility] RN Member Role: Primary Care Nurse Name: Lisbet Hickman RN Position: [facility] RN Member Role: Primary Care Nurse Name: Ruben Bello RN Position: [facility] RN Member Role: Primary Care Nurse Name: Araceli Simon RN Position: [facility] RN Member Role: Primary Care Nurse Name: Moni Dugan RN Position: [facility] RN Member Role: Primary Care Nurse Name: Jorge Garcia III, MD Position: [facility] Ambulatory (view) Member Role: PCP Address: Address: [address] [place] [id number] Name: Misty Nguyen RN Position: [facility] RN Member Role: Primary Care Nurse Name: Joyce Cobb Position: [facility] RN Member Role: Primary Care Nurse Name: Sarwat Aj RN Position: [facility] RN Member Role: Primary Care Nurse Name: Cassi Batista RN Position: [facility] RN Member Role: Primary Care Nurse Name: Yanni Holland RN Position: [facility] RN Member Role: Primary Care Nurse Name: Daija Huitron RN Position: [facility] RN Member Role: Primary Care Nurse Name: Ellis Mayfield RN Position: [facility] RN Supv Member Role: Primary Care Nurse Name: Ayah Robison RN Position: [facility] RN Member Role: Primary Care Nurse Name: Kirstin Enriquez RN Position: [facility] RN Member Role: Primary Care Nurse Name: Radha Moreno RN Position: [facility] RN Member Role: Primary Care Nurse Name: Jina Smalls RN Position: [facility] RN Member Role: Primary Care Nurse Name: Laura Clements RN Position: [facility] RN Member Role: Primary Care Nurse Name: Colette Syed RN Position: [facility] RN Member Role: Primary Care Nurse Name: Muriel Daley RN Position: [facility] RN Supv Member Role: Primary Care Nurse Name: Rachna Renteria RN Position: [facility] RN Member Role: Primary Care Nurse Name: Zohreh Pink RN Position: [facility] RN Member Role: Primary Care Nurse Name: Sophie Berrios RN Position: [facility] RN Member Role: Primary Care Nurse Name: Grisel Mcgowan RN Position: [facility] RN Member Role: Primary Care Nurse Name: Uyen Mitchell RN Position: [facility] RN Member Role: Primary Care Nurse Name: Nasra Smith RN Position: [facility] PCO w/OE and EZ Script Member Role: Primary Care Nurse Name: Cindy Grullon RN Position: [facility] RN Supv Member Role: Primary Care Nurse Name: Silas Knox RN Position: [facility] RN Member Role: Primary Care Nurse Name: Elham Lee RN Position: [facility] PCO RN Member Role: Primary Care Nurse Name: Dariana Mariee RN Position: [facility] RN Member Role: Primary Care Nurse Name: Ana María Cat RN Position: [facility] RN Member Role: Primary Care Nurse Name: Flor Holley Position: [facility] RN Member Role: Primary Care Nurse Name: Bret Aguirre RN Position: [facility] RN Member Role: Primary Care Nurse Name: Ghazal Moreno Position: [facility] RN Member Role: Primary Care Nurse Name: Audra Martinez RN Position: [facility] RN Member Role: Primary Care Nurse Name: Shahbaz Bobo RN Position: [facility] RN Member Role: Primary Care Nurse Name: Jennifer Yin LPN Position: [facility] RN Member Role: Primary Care Nurse Name: Alina Arce RN Position: [facility] RN Member Role: Primary Care Nurse Name: Radha Masterson RN Position: [facility] RN Member Role: Primary Care Nurse Name: Landy Villarreal RN Position: [facility] RN Member Role: Primary Care Nurse Name: Amy Larios RN Position: [facility] RN Member Role: Primary Care Nurse Name: Indira Lindsey RN Position: [facility] SN RN Member Role: Primary Care Nurse Name: Rosa Elena Pope RN Position: [facility] RN Member Role: Primary Care Nurse Name: Florentino Garcia RN Position: [facility] RN Member Role: Primary Care Nurse Name: Cristel Moreno RN Position: [facility] SN RN Member Role: Primary Care Nurse Name: Rosa Elena De León RN Position: [facility] Hospital Inspector Advanced Composite Member Role: Primary Care Nurse Name: Tulio Pina RN Position: [facility] RN Member Role: Primary Care Nurse Name: Maximiliano Claros RN Position: [facility] RN Member Role: Primary Care Nurse Name: Narda Barnes RN Position: [facility] RN Member Role: Primary Care Nurse Name: Zoë Cisse RN Position: [facility] RN Member Role: Primary Care Nurse Name: Pat Bowers RN Position: [facility] SN RN Member Role: Primary Care Nurse Name: Ruy Salcido RN Position: [facility] RN Member Role: Primary Care Nurse Name: Tayler Cabello RN Position: [facility] RN Member Role: Primary Care Nurse Name: Hilaria Aparicio RN Position: [facility] RN Member Role: Primary Care Nurse Name: Carly Rosado RN Position: [facility] RN Neil Member Role: Primary Care Nurse Name: Taryn Rosado RN Position: [facility] RN Member Role: Primary Care Nurse Name: Sydney Rosado RN Position: [facility] RN Member Role: Primary Care Nurse Name: Fidencio Camarena RN Position: [facility] RN Member Role: Primary Care Nurse Name: Uriel Dumont Position: [facility] RN Member Role: Primary Care Nurse Name: Selene Vazquez RN Position: [facility] RN Member Role: Primary Care Nurse Name: Dariana Becerra RN Position: [facility] RN Member Role: Primary Care Nurse Name: Leyla Verma LPN Position: [facility] RN Member Role: Primary Care Nurse Name: Rody Mays RN Position: [facility] RN Member Role: Primary Care Nurse Name: Marielos Mixon RN Position: [facility] RN Member Role: Primary Care Nurse Name: Radha Flores RN Position: [facility] RN Member Role: Primary Care Nurse Name: Rose Kyle RN Position: [facility] Hospital Inspector Advanced Composite Member Role: Primary Care Nurse Name: Aimee Salamanca Position: [facility] RN Member Role: Primary Care Nurse Name: Jacobo Caceres Position: [facility] RN Member Role: Primary Care Nurse Care Team Related Persons Name: STEVENSON HAMM Address: home [address] Name: MELINA VARMA Address: [place] [address] Name: GARRY VARMA Address: home [address] Name: BRIEN LANCASTER Address: home [address] [place] [address] [place] [address]
--- OUTSIDE RECORDS SUMMARY | 2023-08-15 20:27 | XMS_ITS | Continuity of Care Document ---
Author Name Unknown Organization [facility] Address [address] [place] [id number]- Care Team Providers Care Skein Dyer Name Role Phone Jose LEE MD, Jorge Tsang Primary Care Physician [place] [facility] [place]): [place] - 05/21/[address] [address]- Encounter Diagnosis COPD exacerbation(Final) - 05/13/23 Discharge Disposition: A-Transfer VNA/Home Health Attending Physician: Brice Hernandez MD Admitting Physician: Justa Vicente MD Referring [...] virus vaccine, inactivated 1 10/14/06 Gi rox [id number] 12y+ bivalent booster vax 08/23/22 Recorded SARS-CoV-2 [...] opioid drug. Start Date: 07/02/22 Status: Ordered [place] Saline 0.65% nasal gel 1 sprays, Nares, Both, 4 times a day, # 22.5 Gm, 0 Refills, Maintenance, 05/12/23 15:41:00 EDT, [facility]/pharmacy #[id number], Partial fill upon [...] hours, PRN for Pain , Moderate, Routine, 05/20/23 11:24:00 EDT, Stop date 05/27/23 13:00:00 EDT Start Date: 05/20/23 Stop Date: 05/21/23 Status: Discontinued duloxetine 60 mg oral enteric [...] 5 Refills, Maintenance, 04/27/23 13:54:00 EDT, Tablet, [facility] 3, Partial fill upon patient request if the prescription is for a schedule II opioid drug., 183, cm, 04/27/23 7:05:00... Start Date: 04/27/23 Stop Date: 10/24/23 Status: Ordered gabapentin 300 mg oral capsule 600 mg, Capsule, By Mouth, Hold for: sedation, 05/21/23 9:00:00 EDT Start Date: 05/21/23 Stop Date: 05/21/23 Status: Completed gabapentin 300 mg oral capsule [...] release 25 mg, XL Tablet, By Mouth, 05/21/23 9:00:00 EDT Start Date: 05/21/23 Stop Date: 05/21/23 Status: Completed Metoprolol Succinate ER 25 mg [...] 0 Refills, Maintenance, 05/06/23 9:44:00 EDT, Tablet, [facility]/pharmacy #[id number], Partial fill upon patient request if the prescription is for a schedule II opioid drug., 182, cm, 05/06/23 7:54:00 EDT, Height,... Start Date: 05/06/23 Status: Ordered sodium chloride 0.65% nasal spray 1 sprays, Nares, Both, 5 times a day, dryness, # 1 each, 0 Refills, Maintenance, 05/12/23 15:40:00 EDT, Nasal [place], [facility] #[id number], Partial fill upon patient request [...] fractures of ribs Confirmed 01/06/11 Active Old VT (myocardial infarction) X 3 Confirmed Active PVD (peripheral vascular disease) Confirmed Active Underweight Confirmed Active 1Cardiac stents 1991, 1995 Results Orders for Microbiology Reports Name Date Blood Culture 05/13/23 Blood Culture #2 05/13/23 Microbiology Reports TEST:Blood Culture, Second Order STATUS:Auth (Verified) BODY SITE: SOURCE:Blood COLLECTED DATE/TIME:05/13/23 2:51 PM Blood Culture, Second Order SPECIMEN DESCRIPTION : BLOOD SPECIAL REQUESTS : NONE CULTURE : NO GROWTH 5 DAYS. REPORT STATUS : FINAL 05/18/2023 TEST:Blood Culture STATUS:Auth (Verified) BODY SITE: SOURCE:Blood COLLECTED DATE/TIME:05/13/23 2:50 PM Blood Culture SPECIMEN DESCRIPTION : BLOOD NO SITE SPECIAL REQUESTS : NONE CULTURE : NO GROWTH 5 DAYS. REPORT STATUS : FINAL 05/18/2023 Radiology Reports * Exam Date Time Procedure Performing Provider Status 05/20/23 7:50 AM US RUQ Indy Starkey; Christina h (Verified) Notes: (US RUQ) Reason For Exam: Biliary Obstruction RESULT: US RUQ US RUQ INDICATION: Biliary obstruction, concern for pancreatitis. COMPARISON: 09/16/2021. FINDINGS: Liver: Coarse hepatic echotexture. No suspicious lesion. Smooth hepatic contour. Main portal vein patent with normal hepatopetal direction of flow. Gallbladder: No gallstones. Normal wall thickness. No pericholecystic fluid. Negative Thomas sign. Biliary Tree: No intrahepatic or extrahepatic bile duct dilation is identified. Common duct measures: 0.5 cm. Pancreas: Partially obscured by overlying bowel gas. No abnormality in the visualized portions of the pancreas. Right kidney: 11.2 cm in length. Normal parenchymal echotexture and thickness. No hydronephrosis, stone or mass. IMPRESSION: Limited visualization of the pancreas; however, no peripancreatic fluid collection. Mildly coarse hepatic echotexture which may be due to underlying hepatocellular disease. I have personally reviewed the images and I agree with this report. WSN: [id number] Ordering Physician: Jovana Madsen Dictated By: Cholo Fairchild MD Dictated Date/Time: 05/20/23 10:17 a Reviewed By: Kostas Lucero MD Signed By: Kostas Lucero MD Signed Date/Time: 05/20/23 10:22 am Transcribed By: BERENICE Transcribed Date/Time: 05/20/23 8:48 am * Exam Date Time Procedure Performing Provider Status 05/17/23 5:53 PM Abdomen AP Damion Hanley; Luis M (Ve rified) Notes: (Abdomen AP) Reason For Exam: Pain RESULT: XR Abdomen AP XR Abdomen AP INDICATION/CLINICAL QUESTION: Abdominal Reason: Pain; Clinical Question(s): Obstruction / Obstruction. COMPARISON: Correlation with abdominal CT 11/13/2022. FINDINGS: Moderate stool retention but otherwise normal bowel gas pattern. No evidence of obstruction. No evidence of pneumoperitoneum. No organomegaly. Aortobiiliac graft stents are noted. Lung bases are clear. Prior fixation hardwareinvolving the posterior right lower 7th-9th ribs. Similar configuration of the posterior fusion hardware at L4-S1 with intervertebral disc spacer devices at L5-S1. IMPRESSION: Moderate stool retention but otherwise normal. WSN: [id number] Ordering Physician: Virginia Barahona Dictated By: Kostas Oconnor MD Dictated Date/Time: 05/17/23 6:07 pm Reviewed By: Kostas Oconnor MD Signed By: Kostas Oconnor MD Signed Date/Time: 05/17/23 6:07 pm Transcribed By: BERENICE Transcribed Date/Time: 05/17/23 6:03 pm * Exam Date Time Procedure Performing Provider Status 05/13/23 9:[address] Head/Brain W/O Contrast Pawel Segura; Auth (Verified) Notes: (CT Head/Brain W/O Contrast) Reason For Exam: AMS;Other: RESULT: CT Head/Brain W/O Contrast CT Head/Brain W/O Contrast INDICATION: Reason: Other:; AMS; Clinical Question(s): Infarction TECHNIQUE: Noncontrast head CT using axial technique and reconstructed in axial and coronal planes.Iterative reconstruction techniques are used to optimize dose and image quality. CTDIvol Head: 47.40 mGy, DLP Head: 773 mGy*cm. COMPARISON: 09/15/2022 FINDINGS: Transition Teacher view findings, lines and tubes: None. BRAIN AND EXTRA-AXIAL SPACES: No parenchymal hemorrhage, midline shift, or mass effect. Pham-white matter differentiation is wellpreserved. No acute infarct. Negative insular ribbon sign. Atherosclerotic vascular calcification of the carotid arteries but negative hyperdense vessel sign. Mild prominence of the ventricles and sulci consistent with parenchymal volume loss. Mild low-density white matter changes. No subarachnoid hemorrhage. No subdural or epidural collection. CALVARIUM, SKULL BASE, AND SOFT TISSUES: No fractures or suspicious bony lesions. The paranasal sinuses are clear. There is a small amount of fluid within the left mastoid air cells which is increased from last year. Mild mastoiditis not excluded. There is some air outlining the nasolacrimal duct on the left though no obstructing lesion is identified. This may be related to an overlying oxygen mask.. The extracranial soft tissues are unremarkable. IMPRESSION: No acute intracranial hemorrhage or mass effect. Diffuse parenchymal volume loss and white matter chronic microvascular ischemia. Small left mastoid fluid. Mild mastoiditis not excluded. WSN: [id number] Ordering Physician: Stacy Case Dictated By: William Farah MD Dictated Date/Time: 05/13/23 10:18 p Reviewed By: William Farah MD Signed By: William Farah MD Signed Date/Time: 05/13/23 10:18 pm Transcribed By: BERENICE Transcribed Date/Time: 05/13/23 10:15 pm * Exam Date Time Procedure Performing Provider Status 05/13/23 3:17 PM Chest Portable Meme Noonan; Auth (Ve rified) Notes: (Chest Portable) Reason For Exam: Shortness of Breath RESULT: Chest Portable Chest Portable HX OF PRESENT ILLNESS: BIBA for sob. has been non medcompliant for the past few days due to unable to get scripts. found to be hypoxic at 60s% on baseline o which is 4l. placed on 15L now high 80's%;Reason: Shortness of Breath; Clinical Question(s): CHF / CHF COMPARISON: 05/07/2023 FINDINGS: LINES AND TUBES: None. LUNGS AND PLEURA: Hyperinflated, hyperlucent lungs with coarse lung markings. No superimposed consolidation. No pleural effusion. No pneumothorax. HEART, MEDIASTINUM AND MAMADOU: Heart is normal in size. Aorta is mildly calcified. BONES AND SOFT TISSUES: No acute abnormality. Status post ORIF of 3 right ribs. Chronic appearing right distal clavicle fracture. IMPRESSION: COPD without evidence of superimposed acute abnormality. WSN: [id number] Ordering Physician: Roxane Lr Dictated By: William Wilson MD Dictated Date/Time: 05/13/23 3:40 pm Reviewed By: William Wilson MD Signed By: William Wilson MD Signed Date/Time: 05/13/23 3:40 pm Transcribed By: BERENICE Transcribed Date/Time: 05/13/23 3:39 pm Vital Signs Most recent to oldest [Reference Range]: 1 2 3 4 Weight 57.2 kg (05/13/23 10:14 PM) Oxygen Saturation [94-100 %] 94 % (05/21/23 7:39 AM) 99 % (05/21/23 5:09 AM) 100 % (05/21/23 1:21 AM) Pulse Rate [55-90 bpm] 67 bpm (05/21/23 8:29 AM) 67 bpm (05/21/23 7:39 AM) 67 bpm (05/21/23 5:09 AM) Blood Pressure [90-138/55-84 mm Hg] 134/69mm Hg (05/21/23 8:29 AM) 134/69mm Hg (05/21/23 7:39 AM) 152/82mm Hg *H* (05/21/23 5:09 AM) Respiratory Rate [16-30 br/min] 16 br/min (05/21/23 9:28 AM) 16 br/min (05/21/23 9:28 AM) 16 br/min (05/21/23 8:28 AM) 16 br/min (05/21/23 8:28 AM) Temperature [96.8-100.4 DegF] 97.5 DegF (05/21/23 7:39 AM) 98.1 DegF (05/21/23 1:21 AM) 98.1 DegF (05/20/23 8:41 PM) Liters per Minute 4 L/min (05/21/23 5:09 AM) 4 L/min (05/21/23 1:21 AM) 4 L/min (05/20/23 8:41 PM) Mode of Delivery (Oxygen) Nasal cannula (05/21/23 7:39 AM) Nasal cannula (05/21/23 5:09 AM) Nasal cannula (05/21/23 1:21 AM) Blood pressure sites Arm, right (05/21/23 5:09 AM) Arm, right (05/21/23 1:21 AM) Arm, right (05/20/23 8:41 PM) Temperature Route Oral (05/21/23 7:39 AM) Oral (05/21/23 5:09 AM) Oral (05/21/23 1:21 AM) Dry Weight 57.2 kg (05/13/23 10:14 PM) Weight Obtained Via Bed scale (05/13/23 10:14 PM) Dry Weight Obtained Via Bed scale (05/13/23 10:14 PM) Social History Social History Type Response Tobacco Use: 4 or less cigar ettes(less than 1/4 pack)/day in last 30 days. Interested in cessation: Yes. Other: Reports smoked at least 30 years, up to 1-2 PPD at one point.. Type: Cigarettes. Sex History and physical note * Stacy Case DO: PERFORM, MODIFY, MODIFY Event Display: History and Physical Hospital Authored Date: Patient: ??ANT VARMA ? Age:??67 Years?Sex:??Male?:??1955?? Chief Complaint/Reason for Consultation Respiratory distress History of Present Illness This is a 68-year-old male with past medical history??being??anemia, anxiety,??coronary artery disease with prior stents,??chronic low back pain,??COPD, DVT,??GERD, hypertension, hyperlipidemia,??rib fractures,??peripheral vascular disease, and tobacco abuse,??who currently presents to the hospital??1 day after he was discharged from the hospital with??reported respiratory distress.?? The patientwas just recently hospitalized here from May 07 to May 12, 2023 at which time he was treated for?? COPD??exacerbation, as well as for hemoptysis/epistaxis??for which he received 1 unit packed red blood cells.?? The patient also has a history of septic arthritis of the right shoulder dating back toJune 2022, and recently had I&D x2 of his shoulder at [facility] with placement of a wound VAC in March of this year.?? He previously underwent to 6-week courses of vancomycin for MRSA last year, and then had a 6-week course of IV vancomycin and meropenem for right shoulder aspirate from January 11 of this year that grew actinetobacter junii.?? Following this in March of this year, the patient reportedly grew MRSA on culture from his right shoulder and completed an unclear course of daptomycin followed by doxycycline.?? During his most recent hospital stay here, he was followed by ortho who recommended that the patient continue outpatient follow-up with [facility] infectious diseaseand orthopedics at [facility].?? His wound VAC was removed during most recent hospital stay and the patient was switched from daptomycin to doxycycline.?? Following his [facility] from [facility] to [facility], the patient reportedly had a poor night where he did not sleep much.?? According to his son,he complained of pressure in his head this morning and a burning sensation in his stomach.?? His son called EMS and the patient reportedly was found by them to have O2 sats in the 30s on room air.?? He was initially escalated to nonrebreather, with sats only in the 60s, so this was then changed to BiPAP.?? He was also given IV steroids by EMS.?? In the ED, initial venous blood gas showed a pH of 7.05, PCO2 of 131, PO2 of 50, and bicarb of 34.?? The patient was continued on BiPAP and admitted for further management.?? At the time of my visit with the patient, he was off his BiPAP which according to the nurse he had requested to come off of it, and was pulled off.?? He was noted to be taking shallow breaths, and was less responsive than he had been previously with the nurse.?? He would onlyopen his eyes to noxious stimuli.?? He was placed back on BiPAP.?? A short time later, the patient was noted to become hypotensive as well, but this responded to IV fluids.?? He actually showed some improvement in his responsiveness and was able to follow some simple commands, but was still not answering questions. Review of Systems Review of systems could not be obtained from this patient was not??answering questions. Objective Measurements?? Weight: 57.2 kg (05/13/23) Dry Weight: 57.2 kg (05/13/23) ? Vital Signs?? Temperature: 98 DegF (05/14/23 02:00:00) Temperature Route: Axillary (05/14/23 02:00:00) Pulse Rate: 65 bpm (05/14/23 02:00:00) Heart Rate Monitored: 65 bpm (05/14/23:31:00) Respiratory Rate: 17 br/min (05/14/23 02:31:00) Vented: No (05/14/23 02:31:00) Systolic Blood Pressure:??139 mm Hg??High (05/14/23 02:07:00) Diastolic Blood Pressure: 73 mm Hg (05/14/23 02:07:00) Blood pressure sites: Arm, right (05/14/23 02:07:00) Mean Arterial Pressure: 82 mm Hg (05/13/23 22:14:00) Pulse Pressure: 66 mm Hg (05/14/23 02:07:00) Oxygen Saturation: 97 % (05/14/23 02:31:00) Liters per Minute: 3 L/min (05/14/23 02:07:00) Mode of Delivery (Oxygen): BiPAP (05/14/23 02:31:00) FiO2: 30 % (05/14/23 02:31:00) Early Warning Score: 0 (05/14/23 02:38:02) ? Physical Exam General: Somnolent, in no acute cardiopulmonary distress. Mental Status:??Not answering questions presently. Head: Normocephalic. Eyes: Pupils are equal, round and reactive to light. Extraocular muscles intact. Ear, Nose and Throat: Oropharynx clear, mucous membranes moist. Ears and nose without masses, lesions or deformities. Trachea midline. Neck: Supple, Full range of motion. Respiratory: Scattered??rhonchi/wheezes bilaterally. No??rales.. Cardiovascular: Heart sounds normal. Regular rate and rhythm, no murmurs, rubs or gallops. Gastrointestinal: Abdomen soft, non-tender, non-distended. Normal bowel sounds. No pulsatile mass. No hepatosplenomegaly. Neurologic: Cranial nerves II-XII grossly intact. Moves all extremities spontaneously. ??Able to??move his right hand and lift his left arm??with prompting. Skin: No rashes or lesions. No petechiae or purpura. No edema. Musculoskeletal: No cyanosis or clubbing. No gross deformities. Normal range of motion. Assessment/Plan This is a 67-year-old male with past medical history as outlined above,??who currently presents to the hospital??with??hypoxia. ??According to son, he had mentioned pressure in his head and a burningsensation in his stomach.?? He was noted to be??hypoxic??by EMS??and was??placed on??BiPAP??treatment eventually. ??He initially was answering questions and was responsive in the ED,??but subsequently??his??mental status??seems to have declined. ?? COPD exacerbation ??(J44.1) Acute on chronic respiratory failure with hypoxia and hypercapnia ??(J96.21) This patient will be admitted to an inpatient intermediate care bed.?? He presents with??hypoxia??and was noted to be??hypercarbic here.?? He was on BiPAP and??when he??was taken off, his??mental status seems to have declined. ??He is presently back on BiPAP.?? We will maintain him on??scheduled duoneb treatments??4 times a day, with albuterol treatments every 4 hours as needed.?? He received IV steroids today in the ED and??we will??place him on prednisone??15 mg daily beginning tomorrow at his home dose.?? We will continue him on??Roflumilast which was initiated on recent hospital stay. ?? Altered mental status ??(R41.82) Patient noted to be less responsive??during his time in the ED,??and he was??taken off BiPAP.?? He was placed back on BiPAP and repeat venous blood gas shows a pH of 7.39 with PCO2 of 58.4, PO2 of 84, and bicarb 35.6.?? His mental status however does not seem to be improving.?? We will check a CT scan of the head to rule out CVA.?? Patient's son does mention that he planed of pressure in his headbefore he was brought to the hospital.?? We will continue to monitor his mental status closely. ?? Hypotension Patient noted to become transiently hypotensive,??but his blood pressures improved with IV fluid hydration.?? He received a 500 cc bolus of LR and we will continue him on LR at 75 cc an hour for now. ?? Septic arthritis of shoulder, right ??(M00.9) Patient??septic arthritis??this??right shoulder.?? He was previously on a wound VAC??which was discontinued on most recent hospital stay??here.?? He was discharged home on doxycycline. ??We will continue??IV doxycycline??for now and switch back to oral??when he is more awake. ??Blood culture was obtained in the ED and we will follow for any growth. ??Wound care for the right shoulder??per hospital discharge note from yesterday is as follows:?? Clean wound bed with Vashe moistened gauze. Apply Vashe saturated gauze to wound bed for 5 to 10 minutes. Remove and pat dry. Apply thin layer of Z guard to periwound edge; do not reapply if present. Apply Aquacel Ag to wound bed; cut to size of wound. Cover with gauze and Mextra pad; secure with Medipore tape. Change daily and as needed for increased drainage ?? Hypertension Hyperlipidemia Coronary artery disease We will continue patient on his aspirin??and atorvastatin.?? We will hold metoprolol and isosorbidedinitrate for now given??patient's episode of hypotension,??but once his blood pressures are??stabilized, these can be resumed. ?? Anxiety/depression. Patient on duloxetine and hydroxyzine??as needed at home.?? Once he is more??awake and responsive, these can be resumed. ?? GERD. Patient on PPI treatment which will be continued. ?? History of DVT.?? Patient is on chronic apixaban which we will??plan on resuming him on??when he ismore awake.? CODE STATUS.?? Patient has a MOLST form indicating he is a full code. ??This was discussed with hislala who also confirms that he is a full code. ?? Patient seen on May 13, 2023. Total time spent with patient and in coordination of care: including reviewing the chart/medical records, speaking with the patient, formulating and discussing the treatment plan, and documenting thefindings and encounter: ??70 + min Histories Allergies Allergies ?(Active and Proposed Allergies Only) naproxen? (Severity: Unknown severity, Onset: Unknown) ?Reactions: lesions on lips Toradol? (Severity: Persistent Mild, Onset: Unknown) ?Reactions: hives, Cephalexin allergy, Naproxen, Metaxalone, Morphine allergy Keflex? (Severity: Unknown severity, Onset: Unknown) ?Reactions: rash ?Comments: tolerates pip/tazo 11/17 Skelaxin? (Severity: Unknown severity, Onset: Unknown) ?Reactions: H/O: migraine ? Past Medical History/Problem List Active Problems??(18) Anemia Anxiety CAD - Coronary artery disease [...] multiple lumbar spine surgeries ? Social History Patient's son lives downstairs from him??and assists with his IADLs Alcohol Details:??Use: Never. Substance Abuse Details:??Use: Never. Tobacco Details:??Use: 1 to 2 packs a day??in the past,??and still currently smokes about 10 to 12 cigarettes/day Electronic Cigarette/Vaping Details:??Electronic Cigarette Use: Never. ?? Family Medical History Mother with history of COPD and??cardiac valve prolapse. ??Father with history of stroke. Medications Home Medications??(based on discharge med??this??May 12, 2023) Acetaminophen (acetaminophen 325 mg oral tablet)?650?Milligram?2?tablet?By Mouth?Every [...] to give the dose of NARCAN Nasal [place]. Remove t... Pantoprazole (pantoprazole 40 mg oral delayed release tablet)?1?tab(s)?40?Milligram?By Mouth?Daily PredniSONE (predniSONE 5 mg oral tablet)?3?tab(s)?15?Milligram?By Mouth?Daily roflumilast (roflumilast 500 mcg oral tablet)?1?tab(s)?500?Microgram?By Mouth?Daily Sodium Chloride Nasal (sodium chloride 0.65% nasal spray)?1?spray(s)?Nares, Both?5 times a day?dryness Sodium Chloride Nasal ([place] Saline 0.65% nasal gel)?1?spray(s)?Nares, Both?4 times a day Thiamine (Vitamin B1 100 mg oral tablet)?100?Milligram?1?tablet?By Mouth?Daily umeclidinium (Incruse Ellipta 62.5 mcg/inh inhalation powder)?1?puff(s)?Inhalation?Every 24 hours ? Results Recent Labs BLOOD COUNT & DIFF WBC 12.4 k/mm3 (High)?? 05/13/2023 14:50 RBC 3.71 m/mm3 (Low)?? 05/13/2023 14:50 Hgb 10.4 Gm/dL (Low)?? 05/13/2023 14:50 Hct 34.6 % (Low)?? 05/13/2023 14:50 MCV 93.3 femtoliters ()?? 05/13/2023 14:50 MCH 28.0 pg ()?? 05/13/2023 14:50 MCHC 30.1 g/dL (Low)?? 05/13/2023 14:50 Platelet Count 485 k/mm3 (High)?? 05/13/2023 14:50 RDW-SD 60.8 femtoliters (High)?? 05/13/2023 14:50 MPV 9.1 femtoliters (Low)?? 05/13/2023 14:50 Nucleated RBC (Automated) 0.0 #/100 WBC'S ()?? 05/13/2023 14:50 Abs. NRBC 0.0 k/mm3 ()?? 05/13/2023 14:50 Abs. Neut 9.5 k/mm3 (High)?? 05/13/2023 14:50 Abs. Lymph 1.8 k/mm3 ()?? 05/13/2023 14:50 Abs. [place] 0.9 k/mm3 ()?? 05/13/2023 14:50 Abs. Eo 0.0 k/mm3 ()?? 05/13/2023 14:50 Abs. Baso 0.0 k/mm3 ()?? 05/13/2023 14:50 Neut % 76.7 % (High)?? 05/13/2023 14:50 Lymph % 14.5 % (Low)?? 05/13/2023 14:50 [place] % 7.3 % ()?? 05/13/2023 14:50 Eos % 0.1 % ()?? 05/13/2023 14:50 Baso % 0.2 % ()?? 05/13/2023 14:50 Hemoglobin (POC) POC Cartridge 9.5 Gm/dL (Low)?? 05/13/2023 15:22 Hematocrit (POC) POC Cartridge 28 % (Low)?? 05/13/2023 15:22 Imm Gran 1.2 % ()?? 05/13/2023 14:50 Abs. Imm Gran 0.2 k/mm3 ()?? 05/13/2023 14:50 ?? BLOOD GAS pH Venous (POC) POC Cartridge 7.39 ()?? 05/13/2023 15:22 pCO2 Venous (POC) POC Cartridge 58.4 mm Hg (High)?? 05/13/2023 15:22 pO2 Venous (POC) POC Cartridge 84 mm Hg (High)?? 05/13/2023 15:22 Est Bicarbonate (POC) POC Cartridge 35.6 mmol/L (High)?? 05/13/2023 15:22 % O2 Sat Venous (POC) POC Cartridge 96 ()?? 05/13/2023 15:22 Base Excess (POC) POC Cartridge 11 ()?? 05/13/2023 15:22 Specimen Type - Blood Gas VENOUS ()?? 05/13/2023 15:22 pH, Venous 7.05 (Low)?? 05/13/2023 14:50 pCO2, Venous 131 mm Hg (High)?? 05/13/2023 14:50 pO2, Venous 50 mm Hg (High)?? 05/13/2023 14:50 Bicarbonate, Estimated(Venous) 34 mmol/L (High)?? 05/13/2023 14:50 ?? CARDIAC Nt-Probnp 1135 pg/mL (High)?? 05/13/2023 14:51 High Sensitivity Troponin (HSTnT) 36 ng/L (High)?? 05/13/2023 14:50 ?? CHEM GENERAL Sodium 143 mmol/L ()?? 05/13/2023 14:51 Potassium 4.3 mmol/L ()?? 05/13/2023 14:51 Chloride 97 mmol/L (Low)?? 05/13/2023 14:51 Bicarbonate Level 34 mmol/L (High)?? 05/13/2023 14:51 Anion Gap 12 ()?? 05/13/2023 14:51 Sodium (POC) POC Cartridge 137 mmol/L ()?? 05/13/2023 15:22 Potassium (POC) POC Cartridge 3.8 mmol/L ()?? 05/13/2023 15:22 Glucose Level 169 mg/dL (High)?? 05/13/2023 14:51 Glucose (POC) POC Cartridge 161 (High)?? 05/13/2023 15:22 Glucose, POC 154 mg/dL (High)?? 05/13/2023 19:24 BUN 14 mg/dL ()?? 05/13/2023 14:51 Creatinine-Blood 0.5 mg/dL (Low)?? 05/13/2023 14:51 Estimated GFR Creatinine 111 ML/MIN/1.73 M2 ()?? 05/13/2023 14:51 Calcium 9.6 mg/dL ()?? 05/13/2023 14:51 Ionized Calcium (POC) POC Cartridge 1.07 mmol/L (Low)?? 05/13/2023 15:22 Protein, Total 6.8 Gm/dL ()?? 05/13/2023 14:51 Albumin 4.1 Gm/dL ()?? 05/13/2023 14:51 AG Ratio 1.5 ()?? 05/13/2023 14:51 Alkaline Phosphatase 158 units/L (High)?? 05/13/2023 14:51 Lipase 15 units/L ()?? 05/13/2023 14:51 AST (SGOT) 32 units/L ()?? 05/13/2023 14:51 ALT (SGPT) 24 units/L ()?? 05/13/2023 14:51 Bilirubin, Total 0.3 mg/dL ()?? 05/13/2023 14:51 Lactate 2.7 mmol/L (High)?? 05/13/2023 14:50 ?? COAG INR 1.0 ()?? 05/13/2023 14:50 Protime (PT) 10.5 seconds ()?? 05/13/2023 14:50 APTT 26.7 seconds ()?? 05/13/2023 14:50 ?? ENDOCRINE/TUMOR MARKER TSH 1.76 uIU/mL ()?? 05/13/2023 14:51 ?? VIROLOGY COVID-19 by RT-PCR NEGATIVE ()?? 05/13/2023 14:50 ?(05/13/2023 21:[address] Head/Brain W/O Contrast) IMPRESSION: ?? No acute intracranial hemorrhage or mass effect. Diffuse parenchymal volume loss and white matter chronic microvascular ischemia. Small left mastoid fluid. Mild mastoiditis not excluded. [1] (05/13/2023 15:17 EDT Chest Portable) IMPRESSION: ?? COPD without evidence of superimposed acute abnormality. [2] [1]??CT Head/Brain W/O Contrast; William Farah MD 05/13/2023 21:56 EDT [2]??Chest Portable; William Wilson MD 05/13/2023 15:17 EDT EKG study * Event Display: EKG Authored Date: * Event Display: ECG 12-Lead Authored Date: Please click on pdf link to open report * Event Display: ECG 12-Lead Authored Date: Ventricular Rate: 103 BPM Atrial Rate: 103 BPM P-R Interval: 122 ms QRS Duration: 96 ms Q-T Interval: 378 ms QTC Calculation(Bazett): 495 ms P [place]: 83 degrees R [place]: -13 degrees T [place]: 72 degrees Sinus tachycardia Incomplete right bundle branch block Nonspecific ST abnormality Abnormal ECG When compared with ECG of 08-MAY-2023 11:24, Non-specific change in ST segment in Anterior leads QT has lengthened Confirmed by AGUSTO ASTORGA ([id number]) on 05/21/2023 1:13:50 PM [place]: AGUSTO ASTORGA Cardiology * Event Display: Cardiac Rhythm Strips Authored Date: * Event Display: Cardiac Rhythm Strips Authored Date: Hospital Progress note * Nell Lagos RN: PERFORM, SIGN, VERIFY Event Display: Progress Note Hospital Authored Date: Patient: ANT VARMA Age: 67 years Sex: Male : 1955 Associated Diagnoses: None Author: Nell Lagos RN Findings Problem Related to Alteration in Comfort : Alteration in Comfort/new 05/21/2023 7:00 EDT Alteration in Comfort Related to Other: chronic pain, right shoulder septic arthritis Goals & Outcomes: Comfort Pt will report acceptable level of comfort & pain control, Pt will state importance of adhering to pain strategy regime, Pt will demonstrate necessary skills to manage pain, Non-verbal indicators will indicate comfort/pain control Interventions Implemented: Comfort Assess pain using appropriate pain scale/tools, Assess aggravating factors & prevent them accordingly, Assess alleviating factors & promote them accordingly Goals/Interventions, Comfort Yes Comfort, Problem Start 05/16/2023 16:36 Reviewed plan with, Comfort Patient Patient Progression, Comfort Pt progressing according to plan Comfort, Problem Ongoing Yes . Evaluation Pt is AOx4. Tele SR. HS isosobide dinitrate was held due to soft BP and pt refused to take med because he is on it at home once a day, provider Jerel made aware. Pt c/o R shoulder pain and L leg pain and requesting IV pain meds for pain and to help sleep. Pt educated about sleep aid medication, sleeping kit, and other PRN PO meds. Pt persistent about getting a 1x dose of IV meds. Pt educated about taking PO pain meds and transitioning from IV to PO, as he will not be discharged with an IV. Provider Everton at bedside to communicate pain management without IV meds. PRN dilaudid given with melatonin with good effects. Pt had coughing fit, POx desaturated to 84%, nose bleeding from R nare and c oughing up small amounts of blood, provider Everton made aware and at bedside. Pressure place at bridge of nose, small ice placed, HH ordered and back WNL. Safety precautions in place. See CIS for full assessment. . * Jerel JENSEN, Maxi Kenyon: PERFORM Event Display: Progress Note Hospital Authored Date: Patient: ??ANT VARMA ? Age:??67 Years?Sex:??Male?:??1955?? Overnight??RN noticed O2 sat dropped to 84%,??upon entering the room patient had coughed up a mild amount of bright red blood associated with an active nosebleed. O2 sat promptly normalized without increasing oxygen demand. Patient states he was asleep and denies any trauma to his nares. Bleed subsided with holding pressure/leaning forward to avoid further aspiration. Bleed was likely in the setting of dry nares from nasal cannula. ?? Plan: -Switched patient to OxyMask with humidified oxygen. -Monitor O2 sat/recurrence of bleeding.?? -Will check an H&H this morning.?? -Salinex nasal spray as needed. -Asked RN to hold a.m. apixaban until speaking with a provider. * David AMAYA, Brice Muñoz: PERFORM Event Display: Progress Note Hospital Authored Date: Patient: ??ANT VARMA ? Age:??67 Years?Sex:??Male?:??1955?? Subjective ? -Admitted due to hypoxia causing altered mentation in setting of BiPAP noncompliance and ongoing smoking while being a COPD with history of hypercapnic respiratory failure -Seen and examined at bedside, resting comfortably, on his baseline 2-3 L oxygen -IV Dilaudid discontinued, no indication, patient can continue home Dilaudid tablet regimen, no further IV Dilaudid medication should be given -Right upper quadrant ultrasound was unremarkable, patient's abdominal pain likely secondary to constipation, bowel regimen to increase -No significant lab abnormalities, lipase has normalized, amylase unremarkable ?? -Diet advanced ?? -Plan to discharge home tomorrow morning with home services and home oxygen resumed ? Review of Systems Other than those positives as noted above, the remaining comprehensive 14-point review of systems is negative. Objective Vital Signs?? Temperature: 98.3 DegF (05/20/23 11:15:00) Temperature Route: Oral (05/20/23 11:15:00) Pulse Rate: 78 bpm (05/20/23 11:15:00) Respiratory Rate: 16 br/min (05/20/23 14:09:00) Systolic Blood Pressure: 101 mm Hg (05/20/23 11:15:00) Diastolic Blood Pressure: 61 mm Hg (05/20/23 11:15:00) Blood pressure sites: Arm, right (05/20/23 11:15:00) Mean Arterial Pressure: 74 mm Hg (05/20/23 11:15:00) Pulse Pressure: 40 mm Hg (05/20/23 11:15:00) Oxygen Saturation: 98 % (05/20/23 11:15:00) Liters per Minute: 2 L/min (05/20/23 11:15:00) Mode of Delivery (Oxygen): Nasal cannula (05/20/23 11:15:00) Early Warning Score: 0 (05/20/23 13:57:27) ? Intake/Output? 05/13 15:49 05/20 07:00 05/19 07:00 05/18 07:00 05/17 07:00 ?? 05/20 14:15 05/20 14:15 05/20 06:59 05/19 06:59 05/18 06:59 Intake ? 5372.5 ?0 ?450 ?360 ?600 Output ? 9925 ?0 ? 1500 ? 2000 ? 1900 Net Total ?-4552.5 ?0 ?-1050 ?-1640 ?-1300 ? Physical Exam General: AAO X 3, frail,??tired,??appears chronically ill HEENT: Normocephalic, Atraumatic, supplemental O2 via nasal cannula 3 L Neck: soft, supple, Respiratory: Diminished breath sounds bilaterally, no wheezing, no crackles. Cardiovascular: RRR, S1, S2 heard Gastrointestinal: Soft, non tender, normal Bowel sounds, nondistended [place]: Alert awake and oriented X 3 . No acute focal neurological deficits Musculoskeletal/Back: Range of motion all 4 extremities within normal limits Extremities: No pitting pedal edema, no calf tenderness. _ Home Medications Acetaminophen (acetaminophen 325 mg oral [...] to give the dose of NARCAN Nasal [place]. Remove t... Pantoprazole (pantoprazole 40 mg oral delayed release tablet)?1?tab(s)?40?Milligram?By Mouth?Daily PredniSONE (predniSONE 5 mg oral tablet)?3?tab(s)?15?Milligram?By Mouth?Daily roflumilast (roflumilast 500 mcg oral tablet)?1?tab(s)?500?Microgram?By Mouth?Daily Sodium Chloride Nasal (sodium chloride 0.65% nasal spray)?1?spray(s)?Nares, Both?5 times a day?dryness Sodium Chloride Nasal ([place] Saline 0.65% nasal gel)?1?spray(s)?Nares, Both?4 times a day Thiamine (Vitamin B1 100 mg oral tablet)?100?Milligram?1?tablet?By Mouth?Daily umeclidinium (Incruse Ellipta 62.5 mcg/inh inhalation powder)?1?puff(s)?Inhalation?Every 24 hours ? Inpatient Medications Medications (30) Active SCHEDULED: (18) Albuterol/Ipratropium Inhalation Marilin 3mL (Duoneb Inhalation Solution) ??1 vials, BAND Nebulizer, 4 times a day Apixaban 5 mg Tablet (Apixaban Tablet) ??5 mg, By Mouth, 2 times a day Aspirin 81 mg EC Tablet (Aspirin EC) ??81 mg, By Mouth, Daily Atorvastatin 80 mg Tablet (atorvastatin 80 mg oral tablet) ??80 mg, By Mouth, Daily Dicyclomine 10 mg Capsule (dicyclomine 10 mg oral capsule) ??10 mg 1 capsule, By Mouth, 4 times a day Doxycycline 100 mg Tablet (Doxycycline Tablet) ??100 mg, By Mouth, Every 12 hours Duloxetine 60 mg Capsule (DULoxetine Capsule) ??60 mg, By Mouth, 2 times a day Gabapentin 300 mg Capsule (gabapentin 300 mg oral capsule) ??600 mg, By Mouth, 3 times a day Isosorbide Dinitrate 20 mg Tablet (isosorbide dinitrate 20 mg oral tablet) ??30 mg, By Mouth, 2 times a day Lactulose 20 Gm/30mL Syrup (lactulose 10 gm/15 ml oral syrup) ??20 Gm 30 mL, By Mouth, 3 times a day Metoprolol 25 mg XL Tablet (Metoprolol Succinate ER 25 mg oral tablet, extended release) ??25 mg, By Mouth, Daily NaCl 0.9% Flush 3ml (NaCL 0.9% Flush) ??3 mL, IV Push, Every 8 hours Pantoprazole 40 mg EC Tablet (pantoprazole 40 mg oral delayed release tablet) ??40 mg, By Mouth, Daily PredniSONE 20 mg Tablet (predniSONE 20 mg oral tablet) ??40 mg, By Mouth, Daily Roflumilast 500 mcg Tablet (roflumilast 500 mcg oral tablet) ??500 mcg, By Mouth, Daily Saccharomyces Boulardii Lyo 250 mg Caps (saccharomyces boulardii lyo 250 mg oral capsule) ??250 mg,By Mouth, 2 times a day Thiamine 100 mg Tablet (thiamine 100 mg oral tablet) ??100 mg, By Mouth, Daily Vashe Wound Care Emollient/Cleanser (Vashe Topical Solution) ??475 mL, Topically, Daily CONTINUOUS: (0) PRN: (12) Acetaminophen 325 mg Tablet (Acetaminophen Tablet) ??650 mg, By Mouth, Every 4 hours Albuterol 0.083% Inhalation Solution (Albuterol 0.083% inhalation marilin) ??2.5 mg 3 mL, BAND Nebulizer, Every 4 hours Dextromethorphan-Guaifenesin 20 mg-200 mg/10 mL Liqu UD (Robitussin DM Liquid) ??10 mL, By Mouth, Every 4 hours Enema Saline Laxative Adult 7 g-19 g (Fleet Enema) ??1 each, Rectally, Once Guaifenesin 20 mg / Codeine 2 mg / mL Syrup (GuaiFENEsin /Codeine Liquid) ??5 mL, By Mouth, Every 4hours HYDROmorphone 2 mg Tablet (Dilaudid 2 mg oral tablet) ??2 mg, By Mouth, Every 4 hours HydrOXYzine HCL 10mg Tablet (HydrOXYzine HCL Tablet) ??10 mg, By Mouth, 2 times a [...] Antibiotics Calendar Day Last Administered First Administered Doxycycline??100 mg, By Mouth, Every 12 hours ?5 05/20/2023 10:37 05/16/2023 00:21 ? Results Abnormal Labs ?? CHEM GENERAL ??Amylase ??125 units/L (High) ??05/20/2023 06:39 ??Bicarbonate Level ??39 mmol/L (High) ??05/20/2023 06:39 ??Chloride ??91 mmol/L (Low) ??05/20/2023 06:39 ??Creatinine-Blood ??0.6 mg/dL (Low) ??05/20/2023 06:39 ??Estimated GFR Creatinine ??107 ML/MIN/1.73 M2 () ??05/20/2023 06:39 ??Protein, Total ??5.3 Gm/dL (Low) ??05/20/2023 06:39 ? Note: Critical results are displayed in red. ? Assessment/Plan ?? 67-year-old male with past medical history as outlined above,??who currently presents to the hospital??with??hypoxia. ??According to son, he had mentioned pressure in his head and a burning sensationin his stomach.?Found to have acute hypoxic/hypercapnic respiratory failure due to CPAP noncompliance and smoking at home in setting of COPD and chronic hypoxia, this is well-known presentation for the patient and he has had multiple hospital admissions.?? Also had abdominal discomfort with an unremarkable work-up.?? Improving and anticipate discharge home??with services ?? Abdominal discomfort X-ray of the abdomen on 05/17/2023 reported??moderate stool??burden. Aggressive bowel regimen initiated. LFTs within normal limits.? -IV Dilaudid discontinued, no indication, patient can continue home Dilaudid tablet regimen, no further IV Dilaudid medication should be given -Right upper quadrant ultrasound was unremarkable, patient's abdominal pain likely secondary to constipation, bowel regimen to increase -No significant lab abnormalities, lipase has normalized, amylase unremarkable -Diet advanced ?? COPD exacerbation Acute on chronic respiratory failure with hypoxia and hypercapnia Presented with??hypoxia??and was noted to be??hypercarbic??during the hospitalization He was on BiPAP and??when he??was taken off, his??mental status seems to have declined.? Respiratory status was waxing and waning. ??Currently weaned off??BiPAP. Evaluated pulmonary rehab and patient is down to 3 L nasal cannula??which is at baseline. Upon discharge needed and steroid taper Continue??scheduled duoneb treatments??4 times a day, with albuterol treatments every 4 hours as needed.?? Continue home Roflumilast?? which was initiated on recent hospital stay. ? Altered mental status ??(R41.82)??resolved-likely??metabolic encephalopathy. Patient noted to be less responsive??during his time in the ED??when he was??taken off BiPAP.?? He was placed back on BiPAP and repeat venous blood gas shows a pH of 7.39 with PCO2 of 58.4, PO2 of 84, and bicarb 35.6.?? CT head negative Currently patient's mentation back to baseline, alert oriented x3 ? Hypotension???resolved Patient noted to become transiently hypotensive,??but his blood pressures improved with IV fluid hydration.?? Noted to be dizzy this morning when he was participating with pulmonary rehab. ??Blood pressure slightly dropped during orthostatic vital sign.?? Will encourage oral hydration and monitor for response. ? Septic arthritis of shoulder, right ??(M00.9) He was previously on a wound VAC??which was discontinued on most recent hospital stay??here.?? He was discharged home on doxycycline.? Blood culture was obtained in the ED and we will follow for any growth. Continue home wound care for the right shoulder??per hospital discharge note from yesterday is as follows:?? Clean wound bed with Vashe moistened gauze. Apply Vashe saturated gauze to wound bed for 5to 10 minutes. Remove and pat dry. Apply thin layer of Z guard to periwound edge; do not reapply ifpresent. Apply Aquacel Ag to wound bed; cut to size of wound. Cover with gauze and Mextra pad; secure with Medipore tape. Change daily and as needed for increased drainage ?? Hypertension Hyperlipidemia Coronary artery disease Continue home metoprolol, isosorbide dinitrate,??aspirin??and atorvastatin.?? If patient continues to have issues with his blood pressure might??hold off on isosorbide dinitrate. ?? Anxiety/depression. Continue home duloxetine and hydroxyzine ?? Abdominal discomfort, nausea X-ray of the abdomen reported moderate stool burden. Patient??states that he feels constipated. ??Aggressive bowel regimen initiated. Will check lipase and LFTs. ?? History of DVT- continue Apixaban ?? GERD. Continue home PPI ?? CODE STATUS.?? Patient has a MOLST form indicating he is a full code.? Ongoing medical necessity:??-Plan to discharge home tomorrow morning with home services and home oxygen resumed Note * Brianna Kowalski RN: PERFORM Event Display: Discharge/Transfer Note Hospital Authored Date: [id number] Nursing Discharge Note Entered On: 05/21/2023 12:30 EDT Performed On: 05/21/2023 12:30 EDT by Brianna Kowalski RN Nursing Discharge Note 2 Discharge Time : 05/21/2023 12:30 EDT Discharge Level of Care at Discharge : Homehealth/VNA Discharge VNA/Hospice/Home Care([id number]) : [facility] Patient Left Unit Via : Ambulance Patient Accompanied Off Unit with : Ambulance/Ch[facility] Van Personnel Handover Given to Transport Personnel : Yes DC Instructions Provided & Signed by Pt : Yes Patient Understands D/C Instructions : Yes Patient Instructions Discharge Signed : Yes Did Pt have Specialty Bed or Wound Vac : No Brianna Kowalski RN - 05/21/2023 12:30 EDT * David AMAYA, Brice Muñoz: PERFORM Event Display: Discharge/Transfer Note Hospital Authored Date: Patient: ??ANT VARMA ? Age:??67 Years?Sex:??Male?:??1955?? 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 Remove t... Pantoprazole (pantoprazole 40 mg oral delayed release tablet)?1?tab(s)?40?Milligram?By Mouth?Daily PredniSONE (predniSONE 5 mg oral tablet)?3?tab(s)?15?Milligram?By Mouth?Daily roflumilast (roflumilast 500 mcg oral tablet)?1?tab(s)?500?Microgram?By Mouth?Daily Sodium Chloride Nasal (sodium chloride 0.65% nasal spray)?1?spray(s)?Nares, Both?5 times a day?dryness Sodium Chloride Nasal ([place] Saline 0.65% nasal gel)?1?spray(s)?Nares, Both?4 times a day Thiamine (Vitamin B1 100 mg oral tablet)?100?Milligram?1?tablet?By Mouth?Daily umeclidinium (Incruse Ellipta 62.5 mcg/inh inhalation powder)?1?puff(s)?Inhalation?Every 24 hours ? Future Appointments Tuesday 1:00 PM EDT ?? With: Amaya Fallon NP Moni Where: Primary Care [address] [id number]- Status: Pending Tuesday 9:00 AM EDT ?? With: Stevenson Plascencia DO Where: [facility] [address] [place] [address]- Status: Pending Hospital Course ?? 67-year-old male with past medical history as outlined above,??who currently presented to the hospital??with??hypoxia??with altered mental status.?Found to have acute hypoxic/hypercapnic respiratory failure due to CPAP noncompliance and smoking at home in setting of COPD and chronic hypoxia, this is well-known presentation for the patient and he has had multiple hospital admissions.?? Also hadabdominal discomfort with an unremarkable work-up.?? Improving and anticipate discharge home??with services, patient is established with PCP which has been arranged for him for services. ?? On day of discharge, patient stated his??son's friend was at home??to allow him inside the house??and ambulance was arranged for discharge home ?? Abdominal discomfort X-ray of the abdomen on 05/17/2023 reported??moderate stool??burden. Aggressive bowel regimen initiated and patient had good bowel movements LFTs within normal limits.? -Right upper quadrant ultrasound was unremarkable, patient's abdominal pain likely secondary to constipation, bowel regimen to increase -No significant lab abnormalities, lipase has normalized, amylase unremarkable -Diet advanced ?? COPD exacerbation Acute on chronic respiratory failure with hypoxia and hypercapnia Presented with??hypoxia??and was noted to be??hypercarbic??during the hospitalization Respiratory status was waxing and waning. ??Currently weaned off??BiPAP. Evaluated pulmonary rehab and patient is down to 3 L nasal cannula??which is at baseline. Completed doxycycline and prednisone course Continue??inhaler therapy Continue home Roflumilast? Altered mental status ??(R41.82)??resolved-likely??metabolic encephalopathy. Patient noted to be less responsive??during his time in the ED??when he was??taken off BiPAP.?? He was placed back on BiPAP and repeat venous blood gas shows a pH of 7.39 with PCO2 of 58.4, PO2 of 84, and bicarb 35.6.?? CT head negative Currently patient's mentation back to baseline, alert oriented x3 ? Hypotension???resolved Patient noted to become transiently hypotensive,??but his blood pressures improved with IV fluid hydration.? Septic arthritis of shoulder, right ??(M00.9) He was previously on a wound VAC??which was discontinued on most recent hospital stay??here.?? Blood culture was obtained in the ED unremarkable ? Hypertension Hyperlipidemia Coronary artery disease Continue home metoprolol, isosorbide dinitrate,??aspirin??and atorvastatin ?? Anxiety/depression. Continue home duloxetine and hydroxyzine ? History of DVT- continue Apixaban ?? GERD. Continue home PPI ?? Objective Measurements?? Weight: 57.2 kg (05/13/23) Dry Weight: 57.2 kg (05/13/23) ? Vital Signs?? Temperature: 97.5 DegF (05/21/23 07:39:00) Temperature Route: Oral (05/21/23 07:39:00) Pulse Rate: 67 bpm (05/21/23 08:29:00) Respiratory Rate: 16 br/min (05/21/23 09:28:00) Respiratory Rate: 16 br/min (05/21/23 09:28:00) Systolic Blood Pressure: 134 mm Hg (05/21/23 08:29:00) Diastolic Blood Pressure: 69 mm Hg (05/21/23 08:29:00) Blood pressure sites: Arm, right (05/21/23 05:09:00) Mean Arterial Pressure: 91 mm Hg (05/21/23 07:39:00) Pulse Pressure: 65 mm Hg (05/21/23 07:39:00) Oxygen Saturation: 94 % (05/21/23 07:39:00) Liters per Minute: 4 L/min (05/21/23 05:09:00) Mode of Delivery (Oxygen): Nasal cannula (05/21/23 07:39:00) Early Warning Score: 4 (05/21/23 10:03:24) ? . Physical Exam ?? General: AAO X 3, frail,??tired,??appears chronically ill HEENT: Normocephalic, Atraumatic, supplemental O2 via nasal cannula 3 L Neck: soft, supple, Respiratory: Diminished breath sounds bilaterally, no wheezing, no crackles. Cardiovascular: RRR, S1, S2 heard Gastrointestinal: Soft, non tender, normal Bowel sounds, nondistended [place]: Alert awake and oriented X 3 . No acute focal neurological deficits Musculoskeletal/Back: Range of motion all 4 extremities within normal limits Extremities: No pitting pedal edema, no calf tenderness. ?? Pending Results Add On Lab Order ordered on 05/18/2023 Hold Gel Top Tube ordered on 05/16/2023 Hold Gel Top Tube ordered on 05/21/2023 Urinalysis w/hold for Urine Culture ordered on 05/13/2023 Patient Education Titles Chronic Lung Disease: Coping Tips for Caregivers?? Follow-Up Appointments Added Follow Up ?Time Frame ?Comments As Needed Patient Instructions ?? -You were admitted to the hospital due to confusion due to worsening of your COPD, this improved with treatment -Please continue to??use your CPAP and oxygen at home as advised and do not smoke??since this will worsen your COPD and is a risk of??fire due to your oxygen use -Please follow-up with your primary doctors, an appointment has been arranged for you ?? Post Discharge Care Diet: Cardiac diet Wound Care: Wound Site: left lateral ankle ??Clean w/NS. Pat dry. Apply 2 layers Xeroform; cut to size of wound. Cover w/gauze. Secure w/medipore tape. ??Daily ??Yes Code Status: ?? Full Resuscitation Condition: Stable Prognosis: Fair Discharge ?05/21/23 10:43:00 EDT Discharge Prescriptions ?ePrescribed, ??05/21/23 10:43:00 EDT Home Health Face to Face *Denotes mandatory tapia ?? *I certify that this patient is under my care and that I or an allowed non- physician working with me had a face to face encounter with the patient on this date:??05/21/2023 10:50 ?? 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 [_] Chronic disease [...] apply): [_] None [_] Functional mobility training [_] Home [...] *Homebound due to (select all that apply): [X] Inability to leave home without assistance/supervision [_] Inability to ambulate without assistance [_] Pain [_] Decreased strength and endurance [_] Unsteady gait [_] Severe SOB and fatigue [_] Impaired transfers [_] Inability to negotiate stairs [_] Limited weight bearing [_] Mental status change? *Physician Signature: _Brice Hernandez MD ?? *By signing this, I certify that I have personally evaluated the patient and agree with the findings and recommendations as documented above. ? Results Discharge Labs BLOOD COUNT & DIFF WBC 10.3 k/mm3 ()?? 05/19/2023 01:14 RBC 2.91 m/mm3 (Low)?? 05/19/2023 01:14 Hgb 8.6 Gm/dL (Low)?? 05/21/2023 05:35 Hct 28.9 % (Low)?? 05/21/2023 05:35 MCV 90.7 femtoliters ()?? 05/19/2023 01:14 MCH 27.5 pg ()?? 05/19/2023 01:14 MCHC 30.3 g/dL (Low)?? 05/19/2023 01:14 Platelet Count 508 k/mm3 (High)?? 05/19/2023 01:14 RDW-SD 58.0 femtoliters (High)?? 05/19/2023 01:14 MPV 9.1 femtoliters (Low)?? 05/19/2023 01:14 Nucleated RBC (Automated) 0.0 #/100 WBC'S ()?? 05/19/2023 01:14 Abs. NRBC 0.0 k/mm3 ()?? 05/19/2023 01:14 Abs. Neut 7.8 k/mm3 (High)?? 05/14/2023 04:37 Abs. Lymph 0.3 k/mm3 (Low)?? 05/14/2023 04:37 Abs. [place] 0.4 k/mm3 ()?? 05/14/2023 04:37 Abs. Eo 0.0 k/mm3 ()?? 05/14/2023 04:37 Abs. Baso 0.0 k/mm3 ()?? 05/14/2023 04:37 Neut % 91.8 % (High)?? 05/14/2023 04:37 Lymph % 3.4 % (Low)?? 05/14/2023 04:37 [place] % 4.2 % (Low)?? 05/14/2023 04:37 Eos % 0.0 % ()?? 05/14/2023 04:37 Baso % 0.0 % ()?? 05/14/2023 04:37 Hemoglobin (POC) POC Cartridge 9.5 Gm/dL (Low)?? 05/13/2023 15:22 Hematocrit (POC) POC Cartridge 28 % (Low)?? 05/13/2023 15:22 Imm Gran 0.6 % ()?? 05/14/2023 04:37 Abs. Imm Gran 0.1 k/mm3 ()?? 05/14/2023 04:37 ?? BLOOD GAS pH (POC) POC Cartridge 7.33 (Low)?? 05/13/2023 19:17 pCO2 (POC) POC Cartridge 63.4 mm Hg (High)?? 05/13/2023 19:17 pO2 (POC) POC Cartridge 64 mm Hg (Low)?? 05/13/2023 19:17 Estimated Bicarbonate (POC) POC Cart 33.3 mmol/L (High)?? 05/13/2023 19:17 % O2 Sat Arterial (POC) POC Cartridge 90 % (Low)?? 05/13/2023 19:17 pH Venous (POC) POC Cartridge 7.39 ()?? 05/13/2023 15:22 pCO2 Venous (POC) POC Cartridge 58.4 mm Hg (High)?? 05/13/2023 15:22 pO2 Venous (POC) POC Cartridge 84 mm Hg (High)?? 05/13/2023 15:22 Est Bicarbonate (POC) POC Cartridge 35.6 mmol/L (High)?? 05/13/2023 15:22 % O2 Sat Venous (POC) POC Cartridge 96 ()?? 05/13/2023 15:22 Base Excess (POC) POC Cartridge 7 ()?? 05/13/2023 19:17 Specimen Type - Blood Gas ARTERIAL ()?? 05/13/2023 19:17 pH, Venous 7.05 (Low)?? 05/13/2023 14:50 pCO2, Venous 131 mm Hg (High)?? 05/13/2023 14:50 pO2, Venous 50 mm Hg (High)?? 05/13/2023 14:50 Bicarbonate, Estimated(Venous) 34 mmol/L (High)?? 05/13/2023 14:50 ?? CARDIAC Nt-Probnp 1135 pg/mL (High)?? 05/13/2023 14:51 High Sensitivity Troponin (HSTnT) 36 ng/L (High)?? 05/13/2023 14:50 ?? CHEM GENERAL Sodium 137 mmol/L ()?? 05/20/2023 06:39 Potassium 4.0 mmol/L ()?? 05/20/2023 06:39 Chloride 91 mmol/L (Low)?? 05/20/2023 06:39 Bicarbonate Level 39 mmol/L (High)?? 05/20/2023 06:39 Anion Gap 7 ()?? 05/20/2023 06:39 Sodium (POC) POC Cartridge 137 mmol/L ()?? 05/13/2023 15:22 Potassium (POC) POC Cartridge 3.8 mmol/L ()?? 05/13/2023 15:22 Glucose Level 78 mg/dL ()?? 05/20/2023 06:39 Glucose (POC) POC Cartridge 161 (High)?? 05/13/2023 15:22 Glucose, POC 154 mg/dL (High)?? 05/13/2023 19:24 BUN 13 mg/dL ()?? 05/20/2023 06:39 Creatinine-Blood 0.6 mg/dL (Low)?? 05/20/2023 06:39 Estimated GFR Creatinine 107 ML/MIN/1.73 M2 ()?? 05/20/2023 06:39 Calcium 9.1 mg/dL ()?? 05/20/2023 06:39 Ionized Calcium (POC) POC Cartridge 1.07 mmol/L (Low)?? 05/13/2023 15:22 Protein, Total 5.3 Gm/dL (Low)?? 05/20/2023 06:39 Albumin 3.4 Gm/dL ()?? 05/20/2023 06:39 AG Ratio 1.5 ()?? 05/13/2023 14:51 Alkaline Phosphatase 85 units/L ()?? 05/20/2023 06:39 Amylase 125 units/L (High)?? 05/20/2023 06:39 Lipase 40 units/L ()?? 05/20/2023 06:39 AST (SGOT) 21 units/L ()?? 05/20/2023 06:39 ALT (SGPT) 19 units/L ()?? 05/20/2023 06:39 Bilirubin, Total 0.2 mg/dL ()?? 05/20/2023 06:39 Bilirubin, Direct <0.2 mg/dL ()?? 05/20/2023 06:39 Bilirubin, Indirect Direct bilirubin is less than the measureable limit. Therefore, indirect mg/dL ()?? 05/20/2023 06:39 Lactate 0.8 mmol/L ()?? 05/19/2023 10:53 ? COAG INR 1.0 ()?? 05/13/2023 14:50 Protime (PT) 10.5 seconds ()?? 05/13/2023 14:50 APTT 26.7 seconds ()?? 05/13/2023 14:50 ? ENDOCRINE/TUMOR MARKER TSH 1.76 uIU/mL ()?? 05/13/2023 14:51 ? VIROLOGY COVID-19 by RT-PCR NEGATIVE ()?? 05/13/2023 14:50 ? Microbiology ?? COVID-19 (Novel Coronavirus), Rapid PCR?? Completed?? Source: Nasal Body Site: Nose Collected Dt/Tm: 05/13/2023 14:29 Last Updated Dt/Tm: 05/13/2023 16:52 Blood Culture?? Completed?? Source: Blood Body Site: ?? Collected Dt/Tm: 05/13/2023 14:30 Last Updated Dt/Tm: 05/13/2023 16:33 ?SPECIMEN DESCRIPTION : BLOOD NO SITESPECIAL REQUESTS : NONECULTURE : NO GROWTH 5 DAYS.REPORT STATUS : FINAL 05/18/2023 Blood Culture #2?? Completed?? Source: Blood Body Site: ?? Collected Dt/Tm: 05/13/2023 14:30 Last Updated Dt/Tm: 05/13/2023 14:30 ?SPECIMEN DESCRIPTION : BLOODSPECIAL REQUESTS : NONECULTURE : NO GROWTH 5 DAYS.REPORT STATUS : FINAL 05/18/2023 ? Imaging(s) ?CT Head/Brain W/O Contrast ?? 05/13/2023 21:56??by William Farah MD ?No acute intracranial hemorrhage or mass effect. Diffuse parenchymal volume loss and white matter chronic microvascular ischemia. Small left mastoid fluid. Mild mastoiditis not excluded. ?US RUQ ?? 05/20/2023 07:50??by Kostas Lucero MD ?Limited visualization of the pancreas; however, no peripancreatic fluid collection. ?? Mildly coarse hepatic echotexture which may be due to underlying hepatocellular disease. ? 42_ minutes spent on discharge * Dex SHANNON, Brianna: PERFORM Event Display: Patient Education/Instruction Authored Date: [id number] Inpatient Adult Discharge Instructions [address] [address] Name: ANT VARMA : 1955 Visit: 05/13/2023 15:49:00 Current Date: 05/21/2023 10:52 Account: [id number] Inpatient Adult Discharge Instructions We would like [...] and their families. Surveys are administered by [employer] ?? If further treatment with your primary care physician or another doctor is recommended, it is important for you to keep the appointment. Call your primary care physician or return to the Emergency Department immediately if your condition worsens, fails to improve, or new symptoms develop. If you need to find a doctor, you can call [facility] [employer] [facility] for a referral at [phone] or toll free at [phone] or log in to [email or web address].. ?? You can view and manage your care through the patient portal or by using a health care lore of your choosing. [employer] is a website that allows you to securely view your medical information including your hospital discharge summary, office visit summaries, medications and follow-up visits. You can also request appointments, renew medications, and request access to your medical information using a health care lore of your choosing, or just ask a question. You can enroll at [email or web address] or register during your next office visit. You have been discharged from [facility], Patient Care Unit: W4. If you have any questions regarding these instructions after you leave, please call us and we will be happy to assist you. [facility] Your Care Team Attending Physician Brice Hernandez MD Discharging Providers Brice Hernandez MD Reason for Admission Respiratory distress Your Diagnosis COPD exacerbation Acute on chronic respiratory failure with hypoxia and hypercapnia Altered mental status Septic arthritis of shoulder, right Wound of right shoulder Non-pressure chronic ulcer of left ankle limited to breakdown of skin Peripheral artery disease Tests Performed Below is a partial list of the tests performed during your hospitalization. You may have had other tests and procedures not included in this list. Please discuss all test results with your provider. ABG POC CARTRIDGE Amylase BASE EXCESS POC CARTRIDGE Basic Metabolic Panel CALCIUM IONIZED POC CART CBC CBC w/ Differential Comprehensive Metabolic Panel COVID-19 (Novel Coronavirus), Rapid PCR GLUCOSE POC GLUCOSE POC CARTRIDGE H + H HEMATOCRIT POC CARTRIDGE HEMOGLOBIN POC CARTRIDGE Hepatic Function Panel High??Sensitivity??Troponin T INR Lactate Level Lactic Acid Level Lipase POTASSIUM POC CARTRIDGE ProBNP PTT SODIUM POC CARTRIDGE TSH with T4 Reflex (Adults Only) VBG VBG POC CARTRIDGE CT Head/Brain W/O Contrast KUB RUQ (US) XR Chest Portable Primary Care Provider Jose LEE MD, Jorge Tsang Advance Directive Health Care Proxy on File Yes - Health Care Proxy Yes - MOLST Discharge Vitals Temperature: 97.5 DegF Weight: 57.2 kg Pulse Rate: 67 bpm ?? Respiratory Rate: 16 br/min ?? Respiratory Rate: 16 br/min ?? Systolic Blood Pressure: 134 mm Hg ?? Diastolic Blood Pressure: 69 mm Hg ?? Oxygen Saturation: 94 % ?? Studies Pending All tests and labs ordered during this hospital stay have been completed unless listed below. Please discuss all pending results with your provider listed above in these instructions. ?? Add On Lab Order Hold Gel Top Tube (HOLD GEL TUBE) Urinalysis w/hold for Urine Culture What to do next Instructions From Your Doctor ?? -You were admitted to the hospital due to confusion due to worsening of your COPD, this improved with treatment -Please continue to??use your CPAP and oxygen at home as advised and do not smoke??since this will worsen your COPD and is a risk of??fire due to your oxygen use -Please follow-up with your primary doctors, an appointment has been arranged for you ?? Discharge Orders Diet:??Cardiac diet Wound Care:??Wound Site: left lateral ankle Clean w/NS. Pat dry. Apply 2 layers Xeroform; cut to size of wound. Cover w/gauze. Secure w/medipore tape. Daily Yes Code Status:?? Full Resuscitation Condition:??Stable Prognosis:??Fair Scheduled Follow-Up Appointments Tuesday 1:00 PM EDT ?? With: Leeanne FREEMAN, Amaya Montenegro Where: Primary Care [address] [address]- Status: Pending Tuesday 9:00 AM EDT ?? With: Stevenson Plascencia DO Where: [facility] [address] [place] [id number]- Status: Pending You Need to Schedule the Following Appointments Follow Up with??As Needed Discharge Medications ANT VARMA :1955 Visit Date:05/13/2023 Medications: Please continue your medications until treatment [...] 3 Milliliter Nebulized inhalation Every 4 hours 1 pm today Unchanged Albuterol (albuterol 90 mcg/ inh inhalation powder) 2 puff(s) Inhalation Every 4 hours as needed for as needed as needed Unchanged apixaban (Eliquis 5 mg oral tablet) 1 tab(s) Oral Twice a day Duration: 30 Days tonight Unchanged Aspirin (aspirin 81 mg oral capsule) 1 capsule Oral Daily tomorrow morning Unchanged Atorvastatin (atorvastatin 80 mg oral tablet) 1 tab(s) Oral Daily tomorrow morning Unchanged Budesonide-Formoterol (Symbicort 160mcg/ 4.5mcg Inhaler) 2 puff(s) Inhalation Twice a day tonight Unchanged Dicyclomine (dicyclomine 10 mg oral capsule) 1 capsule Oral 4 times a day 1 pm today Unchanged Duloxetine (duloxetine 60 mg oral enteric coated capsule) 1 capsule Oral Twice a day tonight Unchanged Gabapentin (gabapentin 300 mg oral capsule) 2 capsule Oral 3 times a day 3 pm today Unchanged Guaifenesin/ Dextromethorphan (Robitussin DM Liquid) 5 Milliliter Oral Every 6 hours as needed for Cough as needed Unchanged HydrOXYzine (hydrOXYzine hydrochloride 10 mg oral tablet) 1 tab(s) Oral 3 times a day as needed for Anxiety as needed Unchanged Isosorbide Dinitrate (isosorbide dinitrate 30 mg oral tablet) 1 tab(s) Oral Twice a day tonight Unchanged Loperamide (loperamide 2 mg oral capsule) 1 capsule Oral Every 4 hours as needed for for loose stool as needed Unchanged Melatonin 10 Milligram Oral Daily at Bedtime as needed for as needed for sleep at bedtime Unchanged Metoprolol (Metoprolol Succinate ER 25 mg oral tablet, extended release) 1 tab(s) Oral Daily tomorrow morning Unchanged nalOXONE (Narcan 4 mg/ 0.1 mL nasal spray) See instructions If concern for opioid overdose. Gently insert the tip of the nozzle into one nostril, until your fingers on either side of the nozzle are against the bottom of the person's nose. Press the plunger firmly to give the dose of NARCAN Nasal [place]. Remove the NARCAN Nasal [place] from the nostril after giving the dose. Get emergency medical help right away. ?? Unchanged Pantoprazole (pantoprazole 40 mg oral delayed release tablet) 1 tab(s) Oral Daily tomorrow morning Unchanged PredniSONE (predniSONE 5 mg oral tablet) 3 tab(s) Oral Daily tomorrow morning Unchanged roflumilast (roflumilast 500 mcg oral tablet) 1 tab(s) Oral Daily tomorrow morning Unchanged Sodium Chloride Nasal ([place] Saline 0.65% nasal gel) 1 spray(s) Nares, Both 4 times a day 1 pm today Unchanged Sodium Chloride Nasal (sodium chloride 0.65% nasal spray) 1 spray(s) Nares, Both 5 times a day dryness ?? 1 pm today Unchanged Thiamine (Vitamin B1 100 mg oral tablet) 1 tab(s) Oral Daily tomorrow morning Unchanged umeclidinium (Incruse Ellipta 62.5 mcg/ inh inhalation powder) 1 puff(s) Inhalation Every 24 hours tomorrow morning ?? What How Much When Comments Stop Taking Doxycycline (doxycycline monohydrate 100 mg oral capsule) 100 Milligram Oral Every 12 hours Duration: 30 Days Test Results Below is a partial list of the most recent Laboratory test results done prior to this discharge. You may have had other tests and procedures not included in this list. Please discuss all test resultswith your provider. ABG POC CARTRIDGE (05/13/2023) ???pH (POC) POC Cartridge - 7.33???pCO2 (POC) POC Cartridge - 63.4 mm Hg???pO2 (POC) POC Cartridge - 64 mm Hg???Estimated Bicarbonate (POC) POC Cart - 33.3 mmol/L???% O2 Sat Arterial (POC) POC Cartridge - 90 %???Specimen Type - Blood Gas - ARTERIAL Amylase (05/20/2023) ???Amylase - 125 units/L BASE EXCESS POC CARTRIDGE (05/13/2023) ???Base Excess (POC) POC Cartridge - 7 Basic Metabolic Panel (05/20/2023) ???Sodium - 137 mmol/L???Potassium - 4.0 mmol/L???Chloride - 91 mmol/L???Bicarbonate Level - 39 mmol/L???Anion Gap - 7???Glucose Level - 78 mg/dL???BUN - 13 mg/dL???Creatinine-Blood - 0.6 mg/dL???Estimated GFR Creatinine - 107 ML/MIN/1.73 M2???Calcium - 9.1 mg/dL CALCIUM IONIZED POC CART (05/13/2023) ???Ionized Calcium (POC) POC Cartridge - 1.07 mmol/L CBC (05/19/2023) ???WBC - 10.3 k/mm3???RBC - 2.91 m/mm3???Hgb - 8.0 Gm/dL???Hct - 26.4 %???MCV - 90.7 femtoliters???MCH - 27.5 pg???MCHC - 30.3 g/dL???Platelet Count - 508 k/mm3???RDW-SD - 58.0 femtoliters???MPV - 9.1 femtoliters???Nucleated RBC (Automated) - 0.0 #/100 WBC'S???Abs. NRBC - 0.0 k/mm3 CBC w/ Differential (05/14/2023) ???WBC - 8.5 k/mm3???RBC - 2.80 m/mm3???Hgb - 7.7 Gm/dL???Hct - 25.1 %???MCV - 89.6 femtoliters???MCH - 27.5 pg???MCHC - 30.7 g/dL???Platelet Count - 351 k/mm3???RDW-SD - 58.0 femtoliters???MPV - 9.2femtoliters???Nucleated RBC (Automated) - 0.0 #/100 WBC'S???Abs. NRBC - 0.0 k/mm3???Abs. Neut - 7.8 k/mm3???Abs. Lymph - 0.3 k/mm3???Abs. [place] - 0.4 k/mm3???Abs. Eo - 0.0 k/mm3???Abs. Baso - 0.0 k/mm3???Neut % - 91.8 %???Lymph % - 3.4 %???[place] % - 4.2 %???Eos % - 0.0 %???Baso % - 0.0 %???Imm Gran -0.6 %???Abs. Imm Gran - 0.1 k/mm3 Comprehensive Metabolic Panel (05/13/2023) ???Sodium - 143 mmol/L???Potassium - 4.3 mmol/L???Chloride - 97 mmol/L???Bicarbonate Level - 34 mmol/L???Anion Gap - 12???Glucose Level - 169 mg/dL???BUN - 14 mg/dL???Creatinine-Blood - 0.5 mg/dL???Estimated GFR Creatinine - 111 ML/MIN/1.73 M2???Calcium - 9.6 mg/dL???Protein, Total - 6.8 Gm/dL???Alb umin - 4.1 Gm/dL???AG Ratio - 1.5???Alkaline Phosphatase - 158 units/L???AST (SGOT) - 32 units/L???ALT (SGPT) - 24 units/L???Bilirubin, Total - 0.3 mg/dL COVID-19 (Novel Coronavirus), Rapid PCR (05/13/2023) ???COVID-19 by RT-PCR - NEGATIVE GLUCOSE POC (05/13/2023) ???Glucose, POC - 154 mg/dL GLUCOSE POC CARTRIDGE (05/13/2023) ???Glucose (POC) POC Cartridge - 161 H + H (05/21/2023) ???Hgb - 8.6 Gm/dL???Hct - 28.9 % HEMATOCRIT POC CARTRIDGE (05/13/2023) ???Hematocrit (POC) POC Cartridge - 28 % HEMOGLOBIN POC CARTRIDGE (05/13/2023) ???Hemoglobin (POC) POC Cartridge - 9.5 Gm/dL Hepatic Function Panel (05/20/2023) ???Protein, Total - 5.3 Gm/dL???Albumin - 3.4 Gm/dL???Alkaline Phosphatase - 85 units/L???AST (SGOT) - 21 units/L? ?ALT (SGPT) - 19 units/L? ?Bilirubin, Total - 0.2 mg/dL? ?Bilirubin, Direct - <0.2 mg/dL???Bilirubin, Indirect - Direct bilirubin is less than the measureable limit. Therefore, indirect High??Sensitivity??Troponin T (05/13/2023) ???High Sensitivity Troponin (HSTnT) - 36 ng/L INR (05/13/2023) ???INR - 1.0???Protime (PT) - 10.5 seconds Lactate Level (05/13/2023) ???Lactate - 2.7 mmol/L Lactic Acid Level (05/19/2023) ???Lactate - 0.8 mmol/L Lipase (05/20/2023) ???Lipase - 40 units/L POTASSIUM POC CARTRIDGE (05/13/2023) ???Potassium (POC) POC Cartridge - 3.8 mmol/L ProBNP (05/13/2023) ???Nt-Probnp - 1135 pg/mL PTT (05/13/2023) ???APTT - 26.7 seconds SODIUM POC CARTRIDGE (05/13/2023) ???Sodium (POC) POC Cartridge - 137 mmol/L TSH with T4 Reflex (Adults Only) (05/13/2023) ???TSH - 1.76 uIU/mL VBG (05/13/2023) ???Specimen Type - Blood Gas - VENOUS???pH, Venous - 7.05???pCO2, Venous - 131 mm Hg???pO2, Venous - 50 mm Hg???Bicarbonate, Estimated(Venous) - 34 mmol/L VBG POC CARTRIDGE (05/13/2023) ???pH Venous (POC) POC Cartridge - 7.39???pCO2 Venous (POC) POC Cartridge - 58.4 mm Hg???pO2 Venous(POC) POC Cartridge - 84 mm Hg???Est Bicarbonate (POC) POC Cartridge - 35.6 mmol/L???% O2 Sat Venous (POC) POC Cartridge - 96???Specimen Type - Blood Gas - VENOUS Allergies [...] Metabolic alkalosis?? Multiple fractures of ribs?? Old VT (myocardial infarction) X 3?? old Rib fractures, right 3-8?? PVD (peripheral vascular disease)?? Smoking greater than 40 pack years?? Underweight?? Education Materials Below is the list of Educational Leaflet Providered with your Discharge Instructions. Chronic Lung Disease: Coping Tips for Caregivers?? Valuables and Belongings I fully understand and agree that [facility] accepts no responsibility for all [...] to send valuables and belongings home. ?? Date for Pt to Sign Valuables/Belongings: 05/17/23 21:29:00 ?? Other Discharge Information ?? Wound Assessment?? Wound Assessment?? Wound Location I: Leg, left lower Wound Type I: Other: septic arthritis Wound I, Present on Admission: Yes Wound Location II: Shoulder, right Wound II, Present on Admission: No ?? Case Management Discharge Plan?? Discharge Plan?? Discharge Agency Information?? Discharge Level of Care at Discharge: Homehealth/VNA Name of Agency #1: [facility] [phone] Name of Agency #1: [facility] Discharge VNA/Hospice/Home Care: [facility] Service Categories #1: Oxygen Therapy, Physical Therapy, Custodial ?? Service Comments #1: The above agency will be providing visiting home services. They should contactyou within 24 ??? 48 hours of returning home. If they do not, please contact the company at the above number. ?? Service Categories #2: Oxygen Therapy ?? Pulmonary Rehab Status?? Pulmonary Rehab Discharge Status?? CPAP/BiPAP Mask Type: Full CPAP/BiPAP Mask Size: Medium Respiratory Rate: 16 br/min Respiratory Rate: 16 br/min ? Common Emergency [...] strongly encouraged to quit. Please call [facility] [employer] Link at [phone] or [phone] ([phone]) or log in to [email or web address] for referrals to smoking cessation programs. ?? 847 Suicide & Crisis Lifeline is available 20/06 if you or someone you know needs to find a reason to keep living. By calling 226 you'll be connected to a skilled, trained counselor at a crisis center in your area. INPATIENT DISCHARGE INSTRUCTIONS SIGNATURE PAGE ANT VARMA Location:[facility] Registration Date and Time:05/13/2023 15:49 EDT Primary Care Physician: Jorge Garcia III, MD, Attending Physician: David AMAYA, Brice Muñoz, I ANT VARMA, have received the above patient education materials/instructions and have verbalized understanding. If ambulance or transport services are being used I further acknowledge being given a choice of service. ?? If you need to contact me, please call me at this number: . Patient/Internal Wholesaler Name: Patient/Internal Wholesaler Signature: Relationship to Patient: Witness Name/Signature: Date: * David AMAYA, Brice H: PERFORM Event Display: Patient Education Leaflets Authored Date: [id number] Chronic Lung Disease: Coping Tips for Caregivers ?? [address] Chronic Lung Disease: Coping Tips for Caregivers When someone you love has chronic lung disease, such as chronic obstructive pulmonary disease (COPD), it can change both of your lives.??As a caregiver, you may have to support your loved one in new ways. This may be true whether you are caring for your spouse, your partner, a family member, or a friend. Learning some ways to cope can help you and your loved one. Coping with your emotions It???s normal to feel a range of emotions.??You may feel sad or afraid. At times, you may be angry or frustrated.??It???s important to accept these feelings. They're normal. If you find yourself feeling stressed, anxious, or depressed, get help by reaching out to family members or friends. Also speak with a healthcare provider. They can refer you to a counselor and other support services. ?? Taking care of yourself Take time to manage your health and to refresh your mind and spirit. This gives you the energy to do your daily routine. Here are some basics that are important to your health: ??? Get enough sleep.??Aim for??8 hours a day. Keep naps short so you can sleep at night. Limit alcohol and caffeine. These can affect how well you sleep. ??? Eat right.??What you eat affects how you feel. Don???t skip meal s. Eat balanced meals with whole grains, fruits and vegetables, and low-fat meat and dairy products. ??? Exercise.??Try for at least?? 30??minutes of physical activity a day. Breaking up your activity into 3?? 10-minute??sessions can make it easier. ?? Making time for you Your needs are also important. Give yourself permission to have a life of your own. Take breaks from caregiving to relax and have fun. Here are some suggestions: ??? Share a meal with a friend. ??? Think about ways to relax. Take a walk, try yoga, deep breathing, or meditation. ??? Create a space in your home where you can be alone when needed. ??? Try to get away, even if it's just for a short time. Go to a friend's house, or take a drive or a long walk. ?? Accepting help You may need help with caregiving.??Knowing you can count on others can be a relief. Keep these tips in mind: ??? Make a list of things other people can help with. Ask family and friends to handle tasks such as running errands, giving rides, or making meals. ??? Make use of adult daycare and respite services, home meal services, and home health aide programs. These provide short-term (temporary) care for your loved one, when needed. Check online for local organizations. ?? Support groups Look for resources in your area: ??? There may be??a support group for people with chronic lung disease and their caregivers. This can help you feel that you???re not alone. You???ll learn coping strategies. And you'll get advice from others going through the same things you are. ??? Spiritism and brady-based organizations may be a source of strength and support for you also. Reach out to a leaderin your brady community to discuss your spiritual needs. ??? Find local support groups and an online support community at the [employer] at www.lung.org/help-support. ?? Last Reviewed Date: 2021 ?? 2617-7925 The [employer]. All rights reserved. This information is not intended as a substitute for professional medical care. Always follow your healthcare professional's instructions. ?? * Event Display: Provider Clarification Note Please click on pdf link to open report * Faby Mclaughlin RN: PERFORM, SIGN, VERIFY Event Display: Case Management Discharge Plan Authored Date: [id number] Patient: ANT VARMA Age: 67 years Sex: Male : 1955 Associated Diagnoses: None Author: Faby Mclaughlin RN Discharge Plan Case Management Discharge Plan : Case Management Discharge Plan Data 05/20/2023 13:47 EDT Discharge Level of Care at Discharge Homehealth/VNA Discharge VNA/Hospice/Home Care [facility] (Modified) Discharge Transportation Arranged [facility] [address] [place] [phone] Name of Agency #1 [facility] (Modified) Name of Agency #1 [facility] Health [facility] Service Categories #1 Oxygen Therapy, Physical Therapy, Custodial Service Comments #1 The above agency will be providing visiting home services. They should contact you within 24 ??? 48 hours of returning home. If they do not, please contact the company at the above number. Service Categories #2 Oxygen Therapy * Faby Mclaughlin RN: PERFORM, SIGN, VERIFY Event Display: Case Management Discharge Plan Authored Date: [id number] Patient: ANT VARMA Age: 67 years Sex: Male : 1955 Associated Diagnoses: None Author: Faby Mclaughlin RN Discharge Plan Case Management Discharge Plan : Case Management Discharge Plan Data 05/20/2023 13:47 EDT Discharge Level of Care at Discharge Homehealth/VNA Discharge VNA/Hospice/Home Care [facility] [phone] Discharge Transportation Arranged [facility] [address] [facility] [id number] [phone] Name of Agency #1 [facility] Name of Agency #1 [facility] Categories #1 Oxygen Therapy, Physical Therapy, Custodial Patient Care team information Care Team Personnel Name: Glo Camarena RN Position: [facility] RN Member Role: Primary Care Nurse Name: Fatimah Bennett RN Position: [facility] RN Member Role: Primary Care Nurse Name: Mariely Hardy RN Position: [facility] RN Member Role: Primary Care Nurse Name: Marleen Uriarte RN Position: [facility] RN Member Role: Primary Care Nurse Name: Sydney Zelaya Position: [facility] SN Support Member Role: Lifetime Consulting Physician Name: Judd Barahona RN Position: [facility] RN Member Role: Primary Care Nurse Name: Mag Harry RN Position: [facility] RN Member Role: Primary Care Nurse Name: An Blount RN Position: [facility] RN Supv Member Role: Primary Care Nurse Name: Rebecca Whitley RN Position: [facility] RN Member Role: Primary Care Nurse Name: Marianna Ng RN Position: [facility] RN Member Role: Primary Care Nurse Name: Avani Odell RN Position: [facility] RN Member Role: Primary Care Nurse Name: Lisbet Hickman RN Position: [facility] RN Member Role: Primary Care Nurse Name: Ruben Bello RN Position: [facility] RN Member Role: Primary Care Nurse Name: Araceli Simon RN Position: [facility] RN Member Role: Primary Care Nurse Name: Judi Streeter RN Position: [facility] RN Member Role: Primary Care Nurse Name: Moni Dugan RN Position: [facility] RN Member Role: Primary Care Nurse Name: Jorge Garcia III, MD Position: Reference Physician Member Role: PCP Address: Address: [address] [place] [id number] Name: Misty Nguyen RN Position: [facility] RN Member Role: Primary Care Nurse Name: Joyce Cobb Position: [facility] RN Member Role: Primary Care Nurse Name: Sarwat Aj RN Position: [facility] RN Member Role: Primary Care Nurse Name: César Patel RN Position: [facility] RN Member Role: Primary Care Nurse Name: Cassi Batista RN Position: [facility] RN Member Role: Primary Care Nurse Name: Daija Huitron RN Position: [facility] RN Member Role: Primary Care Nurse Name: Ellis Mayfield RN Position: [facility] RN Supv Member Role: Primary Care Nurse Name: Ayah Robison RN Position: [facility] RN Member Role: Primary Care Nurse Name: Radha Moreno RN Position: [facility] RN Member Role: Primary Care Nurse Name: Jina Smalls RN Position: [facility] RN Member Role: Primary Care Nurse Name: Laura Clements RN Position: [facility] RN Member Role: Primary Care Nurse Name: Colette Syed RN Position: [facility] RN Member Role: Primary Care Nurse Name: Muriel Daley RN Position: [facility] RN Supv Member Role: Primary Care Nurse Name: Judith Rojas LPN Position: [facility] RN Member Role: Primary Care Nurse Name: Sydney Raza RN Position: [facility] RN Member Role: Primary Care Nurse Name: Rachna Renteria RN Position: [facility] RN Member Role: Primary Care Nurse Name: Zohreh Pink RN Position: [facility] RN Member Role: Primary Care Nurse Name: Sophie Berrios RN Position: [facility] RN Member Role: Primary Care Nurse Name: Grisel Mcgowan RN Position: [facility] RN Member Role: Primary Care Nurse Name: Uyen [place] RN Position: [facility] RN Member Role: Primary Care Nurse Name: Nasra Smith NP Position: Reference Physician Member Role: Primary Care Nurse Address: Address: [address] [place] [address] Name: Silas Knox RN Position: [facility] RN Member Role: Primary Care Nurse Name: Elham Lee RN Position: [facility] AMB Nurse Member Role: Primary Care Nurse Name: Dariana Mariee RN Position: [facility] RN Member Role: Primary Care Nurse Name: Ana María Cat RN Position: [facility] RN Member Role: Primary Care Nurse Name: Janet Pacheco RN Position: [facility] RN Member Role: Primary Care Nurse Name: Flor Holley Position: [facility] RN Member Role: Primary Care Nurse Name: Bret Aguirre RN Position: [facility] RN Member Role: Primary Care Nurse Name: Ghazal Moreno Position: [facility] RN Member Role: Primary Care Nurse Name: Audra Martinez RN Position: [facility] RN Member Role: Primary Care Nurse Name: Shahbaz Bobo RN Position: [facility] RN Member Role: Primary Care Nurse Name: Jennifer Yin LPN Position: [facility] RN Member Role: Primary Care Nurse Name: Alina Arce RN Position: [facility] RN Member Role: Primary Care Nurse Name: Judi Krueger RN Position: [facility] RN Member Role: Primary Care Nurse Name: Kasia Lund RN Position: [facility] RN Member Role: Primary Care Nurse Name: Rachna Serrano RN Position: [facility] RN Member Role: Primary Care Nurse Name: Naveen Villalobos RN Position: [facility] RN Member Role: Primary Care Nurse Name: Radha Masterson RN Position: [facility] RN Member Role: Primary Care Nurse Name: Landy Villarreal RN Position: [facility] RN Member Role: Primary Care Nurse Name: Adria Bell RN Position: [facility] RN Member Role: Primary Care Nurse Name: Amy Larios RN Position: [facility] RN Member Role: Primary Care Nurse Name: Indira Lindsey RN Position: [facility] SN RN Member Role: Primary Care Nurse Name: Rosa Elena Pope RN Position: [facility] RN Member Role: Primary Care Nurse Name: Florentino Garcia RN Position: [facility] RN Member Role: Primary Care Nurse Name: Cristel Moreno RN Position: [facility] SN RN Member Role: Primary Care Nurse Name: Rosa Elena De León RN Position: [facility] Hospital Swimming Professor Member Role: Primary Care Nurse Name: Nell Lagos RN Position: [facility] RN Member Role: Primary Care Nurse Name: Judi Hamilton RN Position: [facility] RN Member Role: Primary Care Nurse Name: Tulio Pina RN Position: [facility] RN Member Role: Primary Care Nurse Name: Maximiliano Claros RN Position: [facility] RN Member Role: Primary Care Nurse Name: Narda Barnes RN Position: [facility] RN Member Role: Primary Care Nurse Name: Zoë Cisse RN Position: [facility] RN Member Role: Primary Care Nurse Name: Pat Bowers RN Position: [facility] SN RN Member Role: Primary Care Nurse Name: Gemma Chavira RN Position: [facility] RN Member Role: Primary Care Nurse Name: Ruy Salcido RN Position: [facility] RN Member Role: Primary Care Nurse Name: Hilaria Aparicio RN Position: [facility] RN Member Role: Primary Care Nurse Name: Carly Rosado RN Position: [facility] RN Supv Member Role: Primary Care Nurse Name: Taryn Rosado RN Position: [facility] RN Member Role: Primary Care Nurse Name: Sydney Rosado RN Position: [facility] RN Member Role: Primary Care Nurse Name: Uriel Dumont Position: [facility] RN Member Role: Primary Care Nurse Name: Selene Vazquez RN Position: [facility] RN Member Role: Primary Care Nurse Name: César Gerber RN Position: [facility] RN Member Role: Primary Care Nurse Name: Dariana Becerra RN Position: [facility] RN Member Role: Primary Care Nurse Name: Leyla Verma LPN Position: [facility] RN Member Role: Primary Care Nurse Name: Rody Mays RN Position: [facility] RN Member Role: Primary Care Nurse Name: Marielos Mixon RN Position: [facility] RN Member Role: Primary Care Nurse Name: Radha Flores RN Position: [facility] RN Member Role: Primary Care Nurse Name: Hipolito Giles RN Position: [facility] RN Member Role: Primary Care Nurse Name: Rose Kyle RN Position: [facility] Hospital Swimming Professor Member Role: Primary Care Nurse Name: Aimee Salamanca RN Position: [facility] RN Member Role: Primary Care Nurse Name: Jacobo Caceres Position: [facility] RN Member Role: Primary Care Nurse Name: Savanna PINK Attending Position: [facility] ED Medicine MD Name: Rosa Hill Position: [facility] ED TA ABRAN Name: Moira Thomas RN Position: [facility] ED RN W/OE and Tasks Member Role: Patient Care Provider Name: Sven Joseph Position: [facility] ED OA Charge Member Role: ED Associate Care Team Related Persons Name: STEVENSON HAMM Address: home [address] [place] [id number] Name: MELINA VARMA Address: [place] [address] Name: GARRY VARMA Address: home [address] [place] [address]
--- OUTSIDE RECORDS SUMMARY | 2023-08-15 20:27 | XMS_ITS | Continuity of Care Document ---
Author Name Unknown Organization [facility] ter Address [address] [place] [id number]- Care Team Providers Care Event Mgr Name Role Phone Jose LEE MD, Jorge Tsang Primary Care Physician [place] [facility] [place] Date(s): 06/21/22 - 06/22/[address] [id number] Discharge Disposition: A-D/C Home Attending Physician: Jovana Madsen MD Admitting Physician: Navneet Lynn MD Referring [...] oral tablet 2 mg, Tablet, By Mouth, 3 times a day, PRN for Pain , Moderate, Routine, 06/21/22 19:20:00 EDT Start Date: 06/21/22 Stop Date: 06/28/22 Status: Ordered docusate sodium 100 mg oral capsule 1 capsule = 100 mg, By Mouth, 2 times a day Start Date: 04/27/22 Status: Ordered doxycycline hyclate 100 mg oral capsule 1 capsule = 100 mg, By Mouth, Every 12 hours, for 5 days, # 10 capsule, 0 Refills, Acute 06/27/22 15:03:00 EDT, 06/22/22 15:03:00 EDT, Capsule, [facility], Partial fill upon patient request if [...] Maintenance,05/16/22 16:21:00 EDT, Route to Pharmacy Electronically, [facility], Partial fill upon patient request if the prescription is for a sched... Start Date: 05/16/22 Status: Ordered gabapentin 300 mg oral capsule 600 mg, Capsule, By Mouth, 06/22/22 15:00:00 EDT Start Date: 06/22/22 Stop Date: 06/22/22 Status: Completed Incruse Ellipta 62.5 mcg/inh inhalation [...] oral tablet 2.5 mg, Tablet, By Mouth, 06/22/22 9:00:00 EDT Start Date: 06/22/22 Stop Date: 06/22/22 Status: Completed loperamide 2 mg oral capsule [...] release 25 mg, XL Tablet, By Mouth, 06/22/22 9:00:00 EDT Start Date: 06/22/22 Stop Date: 06/22/22 Status: Completed Metoprolol Succinate ER 25 mg [...] tablet, 0 Refills, Maintenance, 06/22/22 15:01:00 EDT, [facility], Partial fill upon patient request if [...] Exam Date Time Procedure Performing Provider Status 06/21/22 11:38 AM Shoulder Min 2 Views Right Moreno , Ni jannette; Auth (Verified) Notes: (Shoulder Min 2 Views Right) Reason For Exam: Pain RESULT: Shoulder Min 2 Views Right Shoulder Min 2 Views Right, 2 views Hx of Present Illness: SOB since 2 am. Took rescue inhaler but not updraft treatment,; Reason: Pain; Clinical Question(s): Fracture COMPARISON: Multiple prior right shoulder and right humeral radiographs, the most recent of which is dated 06/17/2022. FINDINGS: Healed deformity of the right distal clavicle is seen. No acute fracture or dislocation is seen. There is superior positioning of the humeral head relative to the glenoid, which may reflect rotator cuff tear. No arthritic change of the glenohumeral joint. Normal AC joint and portions of the clavicle included on the exam. Postoperative change compatible with fixation of the right posterior seventh through ninth ribs is seen. Previously seen calcific tendinopathy of the rotator cuff is not visible. IMPRESSION: No acute fracture. WSN: [id number] Ordering Physician: Judd Crowder Dictated By: Concepción Durham MD Dictated Date/Time: 06/21/22 11:48 a Reviewed By: Concepción Durham MD Signed By: Concepción Durham MD Signed Date/Time: 06/21/22 11:48 am Transcribed By: BERENICE Transcribed Date/Time: 06/21/22 11:45 am * Exam Date Time Procedure Performing Provider Status 06/21/22 9:20 AM Chest Portable Rowena Alberto; Auth (Verified) Notes: (Chest Portable) Reason For Exam: Persistent Cough RESULT: Chest Portable Chest Portable Hx of Present Illness: SOB since 2 am. took rescue inhaler but not updraft treatment,; Reason: Persistent Cough; Clinical Question(s): Pneumonia COMPARISON: 06/15/2022 at 2:48 PM. FINDINGS: LINES AND TUBES: None. LUNGS AND PLEURA: Minimal subsegmental atelectasis right lung base unchanged. The left lung is clear. Normal pulmonary vascularity. No pleural effusion. No pneumothorax. HEART, MEDIASTINUM AND MAMADOU: Heart is normal in size. Normal upper mediastinal and hilar contour. BONES AND SOFT TISSUES: No acute abnormality. Fixation hardware right-sided seventh and ninth ribs. There is again noted isthe lowest screw superior to the seventh rib area. Healing fracture lateral right clavicle IMPRESSION: No significant interval change. WSN: [id number] Ordering Physician: Judd Crowder Dictated By: Devin Flor MD, V Dictated Date/Time: 06/21/22 9:32 am Reviewed By: Devin Flor MD, V Signed By: Devin Flor MD, V Signed Date/Time: 06/21/22 9:32 am Transcribed By: BERENICE Transcribed Date/Time: 06/21/22 9:30 am Vital Signs Most recent to oldest [Reference Range]: 1 2 3 Oxygen Saturation [94-100 %] 96 % (06/22/22 11:43 AM) 100 % (06/22/22 7:53 AM) 100 % (06/22/22 4:44 AM) Pulse Rate [55-90 bpm] 78 bpm (06/22/22 11:43 AM) 76 bpm (06/22/22 10:22 AM) 65 bpm (06/22/22 7:53 AM) Blood Pressure [90-138/55-84 mm Hg] 105/65mm Hg (06/22/22 11:43 AM) 135/75mm Hg (06/22/22 10:25 AM) 135/75mm Hg (06/22/22 10:22 AM) Respiratory Rate [16-30 br/min] 16 br/min (06/22/22 3:41 PM) 16 br/min (06/22/22 3:41 PM) 16 br/min (06/22/22 1:21 PM) Temperature [96.8-100.4 DegF] 97.9 DegF (06/22/22 11:43 AM) 97.9 DegF (06/22/22 7:53 AM) 97.8 DegF (06/22/22 4:44 AM) Liters per Minute 3 L/min (06/22/22 11:43 AM) 3 L/min (06/22/22 7:53 AM) 3 L/min (06/22/22 12:00 AM) Mode of Delivery (Oxygen) Nasal cannula (06/22/22 11:43 AM) Nasal cannula (06/22/22 7:53 AM) Room air (06/22/22 4:44 AM) Blood pressure sites Arm, right (06/22/22 11:43 AM) Arm, right (06/22/22 7:53 AM) Arm, left (06/22/22 4:44 AM) Temperature Route Oral (06/22/22 11:43 AM) Oral (06/22/22 7:53 AM) Oral (06/22/22 4:44 AM) Social History Social History Type Response Tobacco Use: 4 or less cigar ettes(less than 1/4 pack)/day in last 30 days. Sex
--- OUTSIDE RECORDS SUMMARY | 2023-08-15 20:27 | XMS_ITS | Continuity of Care Document ---
Author Name Unknown Organization [facility] ter Address [address] [place] [id number]- Care Team Providers Care Professional Athletes Coach Name Role Phone Jose LEE MD, Jorge Tsang Primary Care Physician Encounter [facility] [place] Date(s): 05/08/22 - 05/08/[address] [address]- Encounter Diagnosis Leg pain(Final) - 05/08/22 Discharge Disposition: A-D/C AMA Attending Physician: Michele Calvo MD Admitting Physician: [...] mL, 6 Refills, Maintenance, 07/24/20 16:44:00 EDT, [facility]/pharmacy #[id number], 182, cm, 05/26/20 16:01:00 EDT, Height, 67, kg, 07/05/20 13:57:00 EDT, Dry Weight Start Date: 07/24/20 Status: Ordered albuterol CFC free 90 mcg/inh inhalation aerosol 2, puffs, Inhalation, Every 6 hours, PRN, j44.9, # 1 each, Refills 6, Tot. Refills 6, Maintenance, 07/24/20 16:44:00 EDT, Aerosol, Route to Pharmacy Electronically, [id number], [facility]/pharmacy #[id number], 182, cm, 05/26/20 16:01:00 E... [...] 05/11/22 13:22:00 EDT, 05/04/22 13:22:00 EDT, Capsule, [facility]/pharmacy #[id number], Partial fill [...] oral capsule 300 mg, Capsule, By Mouth, Once, STAT, 05/08/22 13:30:00 EDT, Stop date 05/08/22 13:30:00 EDT Start Date: 05/08/22 Stop Date: 05/08/22 Status: Completed Incruse Ellipta 62.5 mcg/inh inhalation powder 1 each, Inhalation, Every 24 hours, doses should be taken at least 24 hours apart, j44.9, # 1 each,6 Refills, Maintenance, 03/21/22 9:48:00 EDT, Powder, [facility]/pharmacy #[id number], 182, cm, 03/12/22 4:49:00EDT, Height, [...] 0 Refills, Maintenance, 04/03/22 16:44:00 EDT, Film, [facility]/pharmacy #[id number], Partial fill [...] 05/10/22 8:00:00 EDT, 05/07/22 8:00:00 EDT, Tablet, [facility]/pharmacy #[id number], Partial fill... Start Date: 05/07/22 Stop Date: [...] 04/10/22 11:40:00 EDT, Route to Pharmacy Electronically, [facility]/pharmacy #[id number], Partial fill upon patientrequest if the prescription is for a schedule II op... Start Date: 04/10/22 Status: Ordered Toprol XL 25 mg oral tablet, extended release 25, mg, 1, tablet, By Mouth, Daily, 30, tablet, 6, 6, 03/31/07 11:15:26, Print MARTIN Number, [facility], [address] [place] [id number], [phone], Constant Indicator Start Date: 03/31/07 Stop Date: [...] Exam Date Time Procedure Performing Provider Status 05/08/22 2:08 PM Chest 2 Views Frontal and Lat Claudia Florence; Luis M (Verified) Notes: (Chest 2 Views Frontal and Lat) Reason For Exam: Shortness of Breath, Fever;Other: RESULT: Chest 2 Views Frontal and Lat Examination: Chest performed on 05/08/2022. History: Left leg cellulitis. COPD. Findings: Frontal and lateral views of the chest are compared to a prior study dated 05/05/2022. The cardiac and mediastinal silhouettes are within normal limits. The lungs are clear. Healed bilateral rib fractures are noted. There are right rib fixation plates. Impression: There is no acute cardiopulmonary disease. WSN: [id number] Ordering Physician: Vik Jewell Dictated By: Mary Bella MD Dictated Date/Time: 05/08/22 2:26 pm Reviewed By: Mary Bella MD Signed By: Mary Bella MD Signed Date/Time: 05/08/22 2:26 pm Transcribed By: BERENICE Transcribed Date/Time: 05/08/22 2:26 pm Vital Signs Most recent to oldest [Reference Range]: 1 2 3 Oxygen Saturation [94-100 %] 100 % (05/08/22 3:53 PM) 100 % (05/08/22 1:03 PM) Pulse Rate [55-90 bpm] 88 bpm (05/08/22 3:53 PM) 86 bpm (05/08/22 1:03 PM) Blood Pressure [90-138/55-84 mm Hg] 121/91mm Hg (05/08/22 3:53 PM) 107/75mm Hg (05/08/22 1:03 PM) Respiratory Rate [16-30 br/min] 18 br/min (05/08/22 3:53 PM) 18 br/min (05/08/22 1:43 PM) 18 br/min (05/08/22 1:03 PM) Temperature [96.8-100.4 DegF] 98.4 DegF (05/08/22 1:03 PM) Liters per Minute 2 L/min (05/08/22 3:53 PM) 2 L/min (05/08/22 1:03 PM) 2 L/min (05/08/22 12:53 PM) Mode of Delivery (Oxygen) Nasal cannula (05/08/22 3:53 PM) Nasal cannula (05/08/22 1:03 PM) Nasal cannula (05/08/22 12:53 PM) Temperature Route Oral (05/08/22 1:03 PM) Social History Social History Type Response Tobacco Use: 4 or less cigar ettes(less than 1/4 pack)/day in last 30 days. Interested in cessation: Yes. Type: Cigarettes. Sex
--- OUTSIDE RECORDS SUMMARY | 2023-08-15 20:27 | XMS_ITS | Continuity of Care Document ---
Author Name Unknown Organization [facility] Address [address] [place] [address]- Care Team Providers Care Fuel Efficient Aircraft Designer Name Role Phone Jose LEE MD, Jorge Tsang Primary Care Physician [phone] [place]counter [facility] [place] Date(s): 11/16/22 - 12/21/22 [facility] [address], [place] [address] Discharge Disposition: A-D/C Home Attending [...] and Recorded Vaccine Date Status Refusal Reason [id number] 12y+ bivalent booster vax 08/23/22 Recorded SARS-CoV-2 [...] fractures of ribs Confirmed 01/06/11 Active Old CO (myocardial infarction) X 3 Confirmed Active PVD (peripheral vascular disease) Confirmed Active Underweight Confirmed Active 1Cardiac stents 1991, 1995 Social History Social History Type Response Tobacco Use: 4 or less cigar ettes(less than 1/4 pack)/day in last 30 days. Sex Patient Care team information Care Team Personnel Name: Radha Hsieh RN Position: [facility] RN Member Role: Primary Care Nurse Name: Glo Camarena RN Position: [facility] RN Member Role: Primary Care Nurse Name: Fatimah Bennett RN Position: [facility] RN Member Role: Primary Care Nurse Name: Mariely Hardy RN Position: [facility] RN Member Role: Primary Care Nurse Name: Marleen Uriarte RN Position: [facility] RN Member Role: Primary Care Nurse Name: Sydney Zelaya Position: [facility] PCO OFFICE STAFF Member Role: Lifetime Consulting Physician Name: Judd Barahona RN Position: [facility] RN Member Role: Primary Care Nurse Name: Mag Harry RN Position: [facility] RN Member Role: Primary Care Nurse Name: An Blount RN Position: [facility] RN Supv Member Role: Primary Care Nurse Name: Marianna Ng RN Position: [facility] SN RN Member Role: Primary Care Nurse Name: Avani Odell RN Position: [facility] RN Member Role: Primary Care Nurse Name: Ruben Bello RN Position: [facility] RN Member Role: Primary Care Nurse Name: Zoë Thompson RN Position: [facility] RN Member Role: Primary Care Nurse Name: Araceli Simon RN Position: [facility] RN Member Role: Primary Care Nurse Name: Jorge Garcia III, MD Position: [facility] Ambulatory (view) Member Role: PCP Address: Address: [address] [place] [address] Name: Misty Nguyen RN Position: [facility] RN Member Role: Primary Care Nurse Name: Sarwat Aj RN Position: [facility] RN Member Role: Primary Care Nurse Name: Cassi Batista RN Position: [facility] RN Member Role: Primary Care Nurse Name: Daija Huitron RN Position: [facility] RN Member Role: Primary Care Nurse Name: Ellis Mayfield RN Position: [facility] RN Supv Member Role: Primary Care Nurse Name: Ayah Robison RN Position: [facility] RN Member Role: Primary Care Nurse Name: Kirstin Enriquez RN Position: [facility] RN Member Role: Primary Care Nurse Name: Jina Smalls RN Position: [facility] RN Member Role: Primary Care Nurse Name: Laura Clements RN Position: [facility] RN Member Role: Primary Care Nurse Name: Colette Syed RN Position: [facility] RN Member Role: Primary Care Nurse Name: Muriel Daley RN Position: [facility] RN Supv Member Role: Primary Care Nurse Name: Darlyn Alvarez RN Position: [facility] RN Member Role: Primary Care Nurse Name: Maribell Mejias RN Position: [facility] RN Member Role: Primary Care Nurse Name: Rachna Renteria RN Position: [facility] RN Member Role: Primary Care Nurse Name: Zohreh Pink RN Position: [facility] RN Member Role: Primary Care Nurse Name: Sophie Berrios RN Position: [facility] RN Member Role: Primary Care Nurse Name: Grisel Mcgowan RN Position: [facility] RN Member Role: Primary Care Nurse Name: Nasra Smith RN Position: [facility] RN Member Role: Primary Care Nurse Name: Cindy Grullon RN Position: [facility] RN Supv Member Role: Primary Care Nurse Name: Silas Knox RN Position: [facility] RN Member Role: Primary Care Nurse Name: Elham Melgar RN Position: [facility] RN Member Role: Primary Care Nurse Name: Elham Lee RN Position: [facility] PCO RN Member Role: Primary Care Nurse Name: Dariana Mariee RN Position: [facility] RN Member Role: Primary Care Nurse Name: Ana María Cat RN Position: [facility] RN Member Role: Primary Care Nurse Name: Flor Holley Position: [facility] RN Member Role: Primary Care Nurse Name: Bret Aguirre RN Position: [facility] RN Member Role: Primary Care Nurse Name: Ghazal Moreno Position: [facility] RN Member Role: Primary Care Nurse Name: Audra Martinez RN Position: [facility] RN Member Role: Primary Care Nurse Name: Shahbaz Bobo RN Position: [facility] RN Member Role: Primary Care Nurse Name: Jennifer Yin LPN Position: [facility] RN Member Role: Primary Care Nurse Name: Alina Arce RN Position: [facility] RN Member Role: Primary Care Nurse Name: Marcelo Schneider RN Position: [facility] ED RN W/OE and Tasks Member Role: Primary Care Nurse Name: Radha Masterson RN Position: [facility] RN Member Role: Primary Care Nurse Name: Amy Larios RN Position: [facility] RN Member Role: Primary Care Nurse Name: Indira Lindsey RN Position: [facility] SN RN Member Role: Primary Care Nurse Name: Rosa Elena Pope RN Position: [facility] RN Member Role: Primary Care Nurse Name: Florentino Garcia RN Position: [facility] RN Member Role: Primary Care Nurse Name: Crisetl Moreno RN Position: [facility] SN RN Member Role: Primary Care Nurse Name: Rosa Elena De León RN Position: [facility] [employer] Leader Member Role: Primary Care Nurse Name: Tulio Pina RN Position: [facility] RN Member Role: Primary Care Nurse Name: Maximiliano Claros RN Position: [facility] RN Member Role: Primary Care Nurse Name: Narda Barnes RN Position: [facility] RN Member Role: Primary Care Nurse Name: Zoë Cisse RN Position: [facility] RN Member Role: Primary Care Nurse Name: Pat Bowers RN Position: [facility] RN Member Role: Primary Care Nurse Name: Ruy Salcido RN Position: [facility] RN Member Role: Primary Care Nurse Name: Tayler Cabello RN Position: [facility] RN Member Role: Primary Care Nurse Name: Hilaria Aparicio RN Position: [facility] RN Member Role: Primary Care Nurse Name: Carly Rosado RN Position: [facility] RN Neil Member Role: Primary Care Nurse Name: Sydney Rosado RN Position: [facility] RN Member Role: Primary Care Nurse Name: Fidencio Camarena RN Position: [facility] RN Member Role: Primary Care Nurse Name: Uriel Dumont Position: [facility] RN Member Role: Primary Care Nurse Name: Selene Vazquez RN Position: [facility] RN Member Role: Primary Care Nurse Name: Dariana Becerra RN Position: [facility] RN Member Role: Primary Care Nurse Name: Leyla Verma LPN Position: [facility] RN Member Role: Primary Care Nurse Name: Rody Mays RN Position: [facility] RN Member Role: Primary Care Nurse Name: Marielos Mixon RN Position: [facility] RN Member Role: Primary Care Nurse Name: Radha Flores RN Position: [facility] RN Member Role: Primary Care Nurse Name: Rose Kyle RN Position: [facility] [employer] Leader Member Role: Primary Care Nurse Name: Aimee Salamanca Position: [facility] RN Member Role: Primary Care Nurse Name: Jacobo Caceres Position: [facility] RN Member Role: Primary Care Nurse Care Team Related Persons Name: STEVENSON HAMM Address: home [address] [place] [address] Name: MELINA VARMA Address: [place] [address] Name: GARRY VARMA Address: home [address] [place] [address] Name: BRIEN LANCASTER Address: home [address] [place] [address]
--- OUTSIDE RECORDS SUMMARY | 2023-08-15 20:27 | XMS_ITS | Continuity of Care Document ---
Author Name Unknown Organization [facility] Address [address] [place] [address]- Care Team Providers Care Over Hauler Helper Name Role Phone Jose LEE MD, Jorge Tsang Primary Care Physician Encounter [facility] Date(s): 03/27/21 - 07/25/21 [facility] [address] [place] [address]- Attending Physician: Cheng Marsh MD Admitting Physician: Cheng Marsh MD Allergies, Adverse Reactions, [...] 16:44:00 EDT, Aerosol, Route to Pharmacy Electronically, [id number], [facility]/pharmacy #[id number], 182, cm, 05/26/20 [...] 0 Refills, Maintenance, 07/01/21 14:22:00 EDT, Tablet, [facility]/pharmacy #[id number], Partial fill upon patient request ifthe [...] 6, 03/31/07 11:15:26, Print MARTIN Number, ADS [facility], [address] [place] [address], [id number], Constant Indicator Start Date: 03/31/07 Stop Date: [...]
--- OUTSIDE RECORDS SUMMARY | 2023-08-15 20:27 | XMS_ITS | Continuity of Care Document ---
Author Name Unknown Organization [facility] Address [address] [place] [address]- Care Team Providers Care Floriculture Professor Name Role Phone Jose LEE MD, Jorge Tsang Primary Care Physician Encounter [facility] [place] Date(s): 06/09/21 - 07/10/21 [facility] [address] [place] [address]- Attending Physician: Rakel FREEMAN, Indira Lizarraga Admitting Physician: Rakel FREEMAN, Indira Lizarraga Allergies, Adverse Reactions, Alerts Substance Reaction Severity [...] 16:44:00 EDT, Aerosol, Route to Pharmacy Electronically, [id number], [facility]/pharmacy #[id number], 182, cm, 05/26/20 16:01:00 E... Start [...] 0 Refills, Maintenance, 07/01/21 14:22:00 EDT, Tablet, [facility]/pharmacy #[id number], Partial fill upon patient request ifthe [...] each,6 Refills, Maintenance, 08/13/20 16:33:00 EDT, Powder, [facility]/pharmacy #[id number], 182, cm, 05/26/20 16:01:00 EDT, Height, [...] 6, 03/31/07 11:15:26, Print MARTIN Number, ADS [facility], [address] [place] [address], [id number], Constant Indicator Start Date: 03/31/07 Stop Date: [...]
--- OUTSIDE RECORDS SUMMARY | 2023-08-15 20:28 | XMS_ITS | Continuity of Care Document ---
Author Name Unknown Organization [facility] Address [address] [place] [address]- Care Team Providers Care Rangelands Conservation Laborer Name Role Phone Jose LEE MD, Jorge Tsang Primary Care Physician En[place] [facility] [place] Date(s): 07/23/21 - 08/22/21 [facility] [address] [place] [address]- Allergies, Adverse Reactions, Alerts Substance Reaction Severity [...] mL, 6 Refills, Maintenance, 07/24/20 16:44:00 EDT, [facility]/pharmacy #[id number], 182, cm, 05/26/20 16:01:00 EDT, Height, 67, kg, 07/05/20 13:57:00 EDT, Dry Weight Start Date: 07/24/20 Status: Ordered albuterol CFC free 90 mcg/inh inhalation aerosol 2, puffs, Inhalation, Every 6 hours, PRN, j44.9, # 1 each, Refills 6, Tot. Refills 6, Maintenance, 07/24/20 16:44:00 EDT, Aerosol, Route to Pharmacy Electronically, [id number], [facility]/pharmacy #[id number], 182, cm, 05/26/20 16:01:00 [...] 6, 03/31/07 11:15:26, Print MARTIN Number, ADS [facility], [address] [place] [address], [id number], Constant Indicator Start Date: 03/31/07 Stop Date: [...]
--- OUTSIDE RECORDS SUMMARY | 2023-08-15 20:28 | XMS_ITS | Continuity of Care Document ---
Author Name Unknown Organization [facility] Address Unknown Care Team Providers Care Cleaning And Maintenance Worker Name Role Phone Jose LEE MD, Jorge Tsang Primary Care Physician [place] [facility] Date(s): 08/13/21 - 10/02/21 [facility] Attending Physician: Prateek Nielson MD Allergies, Adverse Reactions, Alerts Substance Reaction [...] 16:44:00 EDT, Aerosol, Route to Pharmacy Electronically, [id number], [facility]/pharmacy #[id number], 182, cm, 05/26/20 [...] 10/05/21 13:15:00 EST, 09/28/21 13:15:00 EDT, Tablet, [facility]/pharmacy #[id number], Partial fill uponpatient request if the prescription is for a schedu... Start Date: 09/28/21 Stop Date: 10/05/21 Status: Ordered Incruse Ellipta 62.5 mcg/inh inhalation powder 1 each, Inhalation, Every 24 hours, doses should be taken at least 24 hours apart, j44.9, # 1 each,6 Refills, Maintenance, 08/13/20 16:33:00 EDT, Powder, [facility]/pharmacy #[id number], 182, cm, 05/26/20 [...] 6, 03/31/07 11:15:26, Print MARTIN Number, ADS [facility], [address] [place] [address], [id number], Constant Indicator Start Date: 03/31/07 Stop Date: [...]
--- OUTSIDE RECORDS SUMMARY | 2023-08-15 20:28 | XMS_ITS | Continuity of Care Document ---
Author Name Unknown Organization [facility] Address [address] [place] [address]- Care Team Providers Care Advertising Sales Representative Name Role Phone Jose LEE MD, Jorge Tsang Primary Care Physician Encounter [facility] Date(s): 07/17/21 - 07/23/[address] [address]- Encounter Diagnosis COPD exacerbation(Final) - 07/17/21 Discharge Disposition: A-D/C Home Attending Physician: Abe AMAYA, Samanalejandra Admitting Physician: Justa AMAYA, Ezequiel Referring Physician: Not on Staff, Referring MD [...] 6 Refills, Maintenance, 07/24/20 16:44:00 EDT, [facility]/pharmacy #[id number], 182, cm, 05/26/20 16:01:00 EDT, Height, 67, kg, 07/05/20 13:57:00 EDT, Dry Weight Start Date: 07/24/20 Status: Ordered albuterol CFC free 90 mcg/inh inhalation aerosol 2, puffs, Inhalation, Every 6 hours, PRN, j44.9, # 1 each, Refills 6, Tot. Refills 6, Maintenance, 07/24/20 16:44:00 EDT, Aerosol, Route to Pharmacy Electronically, [id number], [facility]/pharmacy #[id number], 182, cm, 05/26/20 16:01:00 E... Start [...] 0 Refills, Maintenance, 07/01/21 14:22:00 EDT, Tablet, [facility]/pharmacy #[id number], Partial fill upon patient request ifthe prescription is for a schedule II opioid drug.,... Start Date: 07/01/21 Stop Date: 07/31/21 Status: Ordered Dilaudid Inj 0.5 mg, Injection, IV Push Slowly, Every 3 hours, PRN for Pain , Severe, Please use oral first if available, STAT, 07/17/21 11:53:00 EDT Start Date: 07/17/21 Stop Date: 07/24/21 Status: Discontinued duloxetine 60 mg oral enteric [...] 5:07:28 EDT Start Date: 05/17/19 Status: Ordered gabapentin 300 mg oral capsule 300 mg, Capsule, By Mouth, 07/23/21 15:00:00 EDT Start Date: 07/23/21 Stop Date: 07/23/21 Status: Completed HYDROmorphone 2 mg oral tablet [...] Refills, Maintenance, 08/13/20 16:33:00 EDT, Powder, [facility]/pharmacy #[id number], 182, cm, 05/26/20 16:01:00 EDT, Height, [...] 6, 03/31/07 11:15:26, Print MARTIN Number, [facility], [address] [place] [address], [id number], Constant Indicator Start Date: 03/31/07 Stop Date: [...] disease)(Confirmed) Active 1Cardiac stents 1991, 1995 Results Orders for Microbiology Reports Name Date Sputum Culture w/ Gram Smear 07/19/21 Blood Culture 07/16/21 Blood Culture #2 07/16/21 Microbiology Reports TEST:Sputum Culture STATUS:Auth (Verified) BODY SITE: SOURCE:INDUCE COLLECTED DATE/TIME:07/19/21 9:25 AM Sputum Culture SPECIMEN DESCRIPTION : INDUCED SPUTUM SPECIAL REQUESTS : NONE GRAM STAIN : 2+ POLYMORPHONUCLEAR LEUKOCYTES 1+ SQ.EPITHELIAL CELLS 1+ GRAM POSITIVE COCCI CULTURE : 3+ NORMAL ARISTEO REPORT STATUS : FINAL 2021 TEST:Blood Culture, Second Order STATUS:Auth (Verified) BODY SITE: SOURCE:Blood COLLECTED DATE/TIME:07/17/21 12:13 AM Blood Culture, Second Order SPECIMEN DESCRIPTION : BLOOD NO SITE SPECIAL REQUESTS : NONE CULTURE : NO GROWTH 5 DAYS. REPORT STATUS : FINAL 07/22/2021 TEST:Blood Culture STATUS:Auth (Verified) BODY SITE: SOURCE:Blood COLLECTED DATE/TIME:07/17/21 12:10 AM Blood Culture SPECIMEN DESCRIPTION : BLOOD NO SITE SPECIAL REQUESTS : NONE CULTURE : NO GROWTH 5 DAYS. REPORT STATUS : FINAL 07/22/2021 Radiology Reports * Exam Date Time Procedure Performing Provider Status 07/16/21 9:38 PM Chest Portable Angela Blanco; Auth ( Verified) Notes: (Chest Portable) Reason For Exam: Shortness of Breath RESULT: Chest Portable Chest Portable Hx of Present Illness: see [facility] ffor assessment; Reason: Shortness of Breath; Clinical Question(s): CHF COMPARISON: 09/26/2019 FINDINGS: LINES AND TUBES: None. LUNGS AND PLEURA: Small fibroid noted a nodule projects in the right lung field. No definite corollary on recent CT scan of the chest which demonstrated a tiny pulmonary nodule, though this likely is higher than the current nodule. A follow-up CT scan of the chest is recommended. No other acute abnormality. No pleural effusion. No pneumothorax. HEART, MEDIASTINUM AND MAMADOU: Heart is normal in size. Normal upper mediastinal and hilar contour. BONES AND SOFT TISSUES: Status post rib fracture fixation. IMPRESSION: Recommend CT scan of the chest for further evaluation of possible nodule seen in the right midlung field. Otherwise unremarkable study. WSN: [id number] Ordering Physician: Jaciel Silveira Dictated By: Yonny Lynch MD Dictated Date/Time: 07/16/21 9:46 pm Reviewed By: Yonny Lynch MD Signed By: Yonny Lynch MD Signed Date/Time: 07/16/21 9:46 pm Transcribed By: BERENICE Transcribed Date/Time: 07/16/21 9:41 pm Vital Signs Most recent to oldest [Reference Range]: 1 2 3 Height 182.8 cm (07/23/21 4:15 PM) 182.8 cm (07/23/21 12:39 PM) 182.8 cm (07/23/21 8:10 AM) Weight 62.18 kg (07/18/21 6:30 AM) Oxygen Saturation [94-100 %] 97 % (07/23/21 4:15 PM) 94 % (07/23/21 12:39 PM) 99 % (07/23/21 8:10 AM) Pulse Rate [55-90 bpm] 84 bpm (07/23/21 4:15 PM) 70 bpm (07/23/21 8:10 AM) 82 bpm (07/23/21 3:23 AM) Body Mass Index [18.5-24.99] 18.61 (07/18/21 6:30 AM) Blood Pressure [90-138/55-84 mm Hg] 99/71mm Hg (07/23/21 4:15 PM) 92/59mm Hg (07/23/21 12:39 PM) 144/77mm Hg *H* (07/23/21 8:10 AM) Respiratory Rate [16-30 br/min] 18 br/min (07/23/21 5:58 PM) 18 br/min (07/23/21 4:15 PM) 18 br/min (07/23/21 3:51 PM) Temperature [96.8-100.4 DegF] 99.7 DegF (07/23/21 4:15 PM) 98.7 DegF (07/23/21 12:39 PM) 97.9 DegF (07/23/21 8:10 AM) Liters per Minute 3 L/min (07/23/21 4:15 PM) 3.5 L/min (07/23/21 3:41 AM) 2 L/min (07/23/21 3:23 AM) Mode of Delivery (Oxygen) Nasal cannula (07/23/21 4:15 PM) Room air (07/23/21 12:39 PM) Room air (07/23/21 8:10 AM) Blood pressure sites Arm, right (8/26/21 4:15 PM) Arm, right (07/23/21 12:39 PM) Arm, left (07/23/21 8:10 AM) Temperature Route Oral (07/23/21 4:15 PM) Oral (07/23/21 12:39 PM) Oral (07/23/21 8:10 AM) Dry Weight 62.18 kg (07/18/21 6:30 AM) Social History Social History Type Response Tobacco Use: Former smoker.. Sex
--- OUTSIDE RECORDS SUMMARY | 2023-08-15 20:28 | XMS_ITS | Continuity of Care Document ---
Author Name Unknown Organization [facility] Address [address] [place] [address]- Care Team Providers Care Eyewear Consultant Name Role Phone Jose LEE MD, Jorge Tsang Primary Care Physician Encounter [facility] [place] Date(s): 06/30/21 - 07/30/21 [facility] [address] [place] [address]- Allergies, Adverse Reactions, Alerts Substance Reaction Severity [...] 6 Refills, Maintenance, 07/24/20 16:44:00 EDT, [facility]/pharmacy #[id number], 182, cm, 05/26/20 16:01:00 EDT, Height, 67, kg, 07/05/20 13:57:00 EDT, Dry Weight Start Date: 07/24/20 Status: Ordered albuterol CFC free 90 mcg/inh inhalation aerosol 2, puffs, Inhalation, Every 6 hours, PRN, j44.9, # 1 each, Refills 6, Tot. Refills 6, Maintenance, 07/24/20 16:44:00 EDT, Aerosol, Route to Pharmacy Electronically, [id number], [facility]/pharmacy #[id number], 182, cm, 05/26/20 16:01:00 E... [...] Refills, Maintenance, 07/01/21 14:22:00 EDT, Tablet, [facility]/pharmacy #[id number], Partial [...] Refills, Maintenance, 08/13/20 16:33:00 EDT, Powder, [facility]/pharmacy #[id number], 182, cm, 05/26/20 16:01:00 EDT, [...] 6, 03/31/07 11:15:26, Print MARTIN Number, ADS [facility], [address] [place] [address], [id number], Constant Indicator Start Date: 03/31/07 Stop Date: [...]
--- OUTSIDE RECORDS SUMMARY | 2023-08-15 20:28 | XMS_ITS | Continuity of Care Document ---
Author Name Unknown Organization [facility] Address [address] [place] [address]- Care Team Providers Care Traveling Construction Superintendent Name Role Phone Jose ELE MD, Jorge Tsang Primary Care Physician [phone] Encounter [facility] [place] Date(s): 06/09/21 - 07/09/21 [facility] [address] [place] [address]- Allergies, Adverse Reactions, Alerts Substance Reaction Severity [...] 16:44:00 EDT, Aerosol, Route to Pharmacy Electronically, [id number], [facility]/pharmacy #[id number], 182, cm, 05/26/20 16:01:00 E... Start [...] 0 Refills, Maintenance, 07/01/21 14:22:00 EDT, Tablet, [facility]/pharmacy #[id number], Partial fill upon patient request ifthe [...] each,6 Refills, Maintenance, 08/13/20 16:33:00 EDT, Powder, [facility]/pharmacy #[id number], 182, cm, 05/26/20 16:01:00 EDT, Height, [...] tablet, 11 Refills, Maintenance, 05/15/20 13:53:00 EDT, [facility]/pharmacy #[id number], 182, cm, 05/15/20 13:20:00 EDT, Height, [...] 11:15:26, Print MARTIN Number, ADS [facility], [address] [place] [address], [phone], Constant Indicator Start Date: 03/31/07 Stop Date: [...]
--- OUTSIDE RECORDS SUMMARY | 2023-08-15 20:28 | XMS_ITS | Continuity of Care Document ---
Author Name Unknown Organization [facility] ter Address [address] [place] [address]- Care Team Providers Care Animal Care Provider Name Role Phone Jose LEE MD, Jorge Tsang Primary Care Physician Encounter [facility] Date(s): 02/01/22 - 02/01/[address] [address]- Encounter Diagnosis Leg pain(Final) - 02/01/22 PVD (peripheral vascular disease)(Final) - 02/01/22 3-vessel CAD(Final) - 02/01/22 Advanced COPD(Final) - 02/01/22 Discharge Disposition: A-D/C Home Attending Physician: Rowena Olivas MD Admitting Physician: Rowena Olivas MD Referring Physician: Not on Staff, Referring [...] mL, 6 Refills, Maintenance, 07/24/20 16:44:00 EDT, [facility]/pharmacy #[id number], 182, cm, 05/26/20 16:01:00 EDT, Height, 67, kg, 07/05/20 13:57:00 EDT, Dry Weight Start Date: 07/24/20 Status: Ordered albuterol CFC free 90 mcg/inh inhalation aerosol 2, puffs, Inhalation, Every 6 hours, PRN, j44.9, # 1 each, Refills 6, Tot. Refills 6, Maintenance, 07/24/20 16:44:00 EDT, Aerosol, Route to Pharmacy Electronically, [id number], [facility]/pharmacy #[id number], 182, cm, 05/26/20 16:01:00 E... Start Date: 07/24/20 Status: Ordered aspirin 81 mg oral tablet 1 tablet = 81 mg, By Mouth, Daily, # 30 tablet, 0 Refills, Maintenance, 05/23/19 1:08:58 EDT, Tablet Start Date: 05/23/19 Status: Ordered atorvastatin 80 mg oral tablet By Mouth, Daily at supper, 0 Refills, Maintenance, 07/01/14 14:30:54, Tablet Start Date: 07/01/14 Status: Ordered Dilaudid Inj 1 mg, Injection, IV Push Slowly, Every 20 minutes for 3 doses/times, PRN for Pain , Moderate, and SBP greater than 100, STAT, 02/01/22 11:58:00 EST, Stop date Limited # of times Start Date: 02/01/22 Stop Date: 02/01/22 Status: Completed docusate sodium 100 mg oral capsule 100 mg, 1, capsule, By Mouth, 2 times a day, # 20 capsule, Refills 0, Tot. Refills 0, Maintenance, 01/27/22 8:37:00 EST, Route to Pharmacy Electronically, [facility]/pharmacy #[id number], Partial fill upon patient request if the prescription is for a schedule II o... Start Date: 01/27/22 Stop Date: 02/06/22 Status: Ordered Docusate/Senna Tablet 1 tablet, By [...] 0 Refills, Maintenance, 11/01/21 10:44:00 EST, Gum, [facility]/pharmacy #[id number], Partial fill upon patient request if the prescription is for a schedule II opioid drug., 182.8... Start Date: 11/01/21 Status: Ordered oxyCODONE 5 mg oral tablet 5 mg, 1, tablet, By Mouth, Every 6 hours, PRN, for 3 days, # 12 tablet, Refills 0, Tot. Refills 0, Acute 02/04/22 19:28:00 EST, for pain, 02/01/22 19:28:00 EST, Route to Pharmacy Electronically, [facility]/pharmacy #[id number], Partial fill upon patient request if... Start Date: 02/01/22 Stop Date: 02/04/22 Status: Ordered Pantoprazole = 40 mg, By [...] 03/31/07 11:15:26, Print MARTIN Number, [facility], [address] [place] [address], [phone], Constant Indicator Start Date: 03/31/07 Stop Date: 10/27/07 Status: Ordered Tylenol 325 mg oral tablet 650 mg, 2, tablet, By Mouth, Every 4 hours, PRN, # 30 tablet, Refills 0, Tot. Refills 0, Maintenance, Pain , Mild, 11/08/21 12:55:00 EST, Route to Pharmacy Electronically, [facility]/pharmacy #[id number], Partialfill upon patient request if the prescription [...] Exam Date Time Procedure Performing Provider Status 02/01/22 2:34 PM XR Hip w/Pelvis 2-3 View Left Matthewrubén Kleber worrell; Auth (Verified) Notes: (XR Hip w/Pelvis 2-3 View Left) Reason For Exam: Pain RESULT: XR Hip w/Pelvis 2-3 View Left XR Hip w/Pelvis 2-3 View Left Hx of Present Illness: coming from home, pt reports SOB x2-3 days, recent LLE surgery - has rednessand pain around surgical site, PCP sent to ED for PE r o. hx COPD. pt reports is tearful reporting lower back pain radiating down LLE; Reason: Pain; Clinical Question(s): Fracture COMPARISON: Multiple prior pelvic and left femoral radiographs, the most recent of which is dated 01/20/2022. FINDINGS: The patient is status post left total hip arthroplasty. There is a long stemmed claw construct securing the lateral aspect of the left femur with multiple screws and cerclage wires noted. Healed deformity of the left femoral diaphysis seen. The hardware appears intact with no periprosthetic lucencyseen. The patient is also is status post discectomy at L5-S1 with transpedicular screws in L4 and S1, fixated with bilateral paraspinal rods. The bones are osteopenic. Healed deformity of the left inferior pubic ramus is seen. No acute displaced fracture noted. There is mild joint space narrowing of the right hip. Round metallic density overlies the superior aspect of the left ilium measuring 1.9 cm. There are bilateral iliac vascular stents. Extensive vascular calcification seen. IMPRESSION: Osteopenia with no acute displaced fracture. WSN: [id number] Ordering Physician: Yousuf Live Dictated By: Concepción Durham MD Dictated Date/Time: 02/01/22 3:09 pm Reviewed By: Concepción Durham MD Signed By: Concepción Durham MD Signed Date/Time: 02/01/22 3:09 pm Transcribed By: BERENICE Transcribed Date/Time: 02/01/22 3:01 pm * Exam Date Time Procedure Performing Provider Status 02/01/22 1:13 PM Chest Portable Ema Garnett (Verif ied) Notes: (Chest Portable) Reason For Exam: COPD RESULT: Chest Portable Chest Portable CLINICAL INDICATION: Shortness of breath. COMPARISON: Chest x-ray, 01/24/2022. FINDINGS: The cardiac silhouette is within normal limits. Hilar and mediastinal contours are normal. The lungs are clear with underlying emphysematous changes noted. There is no pleural effusion, pneumothorax, or evidence of CHF. There is an old right distal clavicular fracture with callous. ORIF hardware is seen along the right 7th-9th posterior ribs with a chronically displaced screw adjacent to the 6th rib. Additional old bilateral rib fractures are also seen. IMPRESSION: No acute cardiopulmonary process. WSN: [id number] Ordering Physician: Yousuf Live Dictated By: Ivy Amado MD Dictated Date/Time: 02/01/22 1:21 pm Reviewed By: Ivy Amado MD Signed By: Ivy Amado MD Signed Date/Time: 02/01/22 1:21 pm Transcribed By: BERENICE Transcribed Date/Time: 02/01/22 1:18 pm Vital Signs Most recent to oldest [Reference Range]: 1 2 3 Oxygen Saturation [94-100 %] 98 % (02/01/22 5:56 PM) 98 % (02/01/22 4:10 PM) 100 % (02/01/22 2:47 PM) Pulse Rate [55-90 bpm] 69 bpm (02/01/22 5:56 PM) 89 bpm (02/01/22 4:10 PM) 73 bpm (02/01/22 2:47 PM) Blood Pressure [90-138/55-84 mm Hg] 170/99mm Hg *H* (02/01/22 5:56 PM) 140/84mm Hg *H* (02/01/22 4:10 PM) 124/87mm Hg (02/01/22 2:47 PM) Respiratory Rate [16-30 br/min] 18 br/min (02/01/22 6:04 PM) 18 br/min (02/01/22 5:56 PM) 18 br/min (02/01/22 4:10 PM) Temperature [96.8-100.4 DegF] 98.5 DegF (02/01/22 11:26 AM) 98.0 DegF (02/01/22 9:50 AM) Liters per Minute 2 L/min (02/01/22 5:56 PM) 2 L/min (02/01/22 4:10 PM) 1.5 L/min (02/01/22 11:26 AM) Mode of Delivery (Oxygen) Nasal cannula (02/01/22 5:56 PM) Nasal cannula (02/01/22 4:10 PM) Room air (02/01/22 2:47 PM) Blood pressure sites Arm, left (02/01/22 5:56 PM) Arm, left (02/01/22 4:10 PM) Arm, left (02/01/22 2:47 PM) Temperature Route Oral (02/01/22 11:26 AM) Oral (02/01/22 9:50 AM) Social History Social History Type Response Tobacco Use: 2 cigarettes a day . Sex
--- OUTSIDE RECORDS SUMMARY | 2023-08-15 20:28 | XMS_ITS | Continuity of Care Document ---
Author Name Unknown Organization [facility] ter Address [address] [place] [address]- Care Team Providers Care Printing Assistant Name Role Phone Jose LEE MD, Jorge Tsang Primary Care Physician Encounter [facility] [place] Date(s): 11/07/21 - 11/08/[address] [address]- Encounter Diagnosis COPD exacerbation(Final) - 11/07/21 Discharge Disposition: A-D/C AMA Attending Physician: Paulo Gold MD Admitting Physician: Almita Oliveros MD Referring Physician: Not on Staff, Referring [...] 6 Refills, Maintenance, 07/24/20 16:44:00 EDT, [facility]/pharmacy #[id number], 182, cm, 05/26/20 16:01:00 EDT, Height, 67, kg, 07/05/20 13:57:00 EDT, Dry Weight Start Date: 07/24/20 Status: Ordered albuterol CFC free 90 mcg/inh inhalation aerosol 2, puffs, Inhalation, Every 6 hours, PRN, j44.9, # 1 each, Refills 6, Tot. Refills 6, Maintenance, 07/24/20 16:44:00 EDT, Aerosol, Route to Pharmacy Electronically, [id number], [facility]/pharmacy #[id number], 182, cm, 05/26/20 [...] hours, PRN for Pain , Moderate, Routine, 11/08/21 0:28:00 EST Start Date: 11/08/21 Stop Date: 11/08/21 Status: Discontinued Docusate/Senna Tablet 1 tablet, By Mouth, 2 [...] oral capsule 300 mg, Capsule, By Mouth, 11/08/21 9:00:00 EST Start Date: 11/08/21 Stop Date: 11/08/21 Status: Completed Incruse Ellipta 62.5 mcg/inh inhalation [...] oral tablet 2.5 mg, Tablet, By Mouth, 11/08/21 9:00:00 EST Start Date: 11/08/21 Stop Date: 11/08/21 Status: Completed loperamide 2 mg oral capsule [...] 0 Refills, Maintenance, 11/01/21 10:44:00 EST, Gum, [facility]/pharmacy #[id number], Partial fill upon patient [...] release 25 mg, XL Tablet, By Mouth, 11/08/21 9:00:00 EST Start Date: 11/08/21 Stop Date: 11/08/21 Status: Completed Toprol XL 25 mg oral tablet, extended release 25, mg, 1, tablet, By Mouth, Daily, 30, tablet, 6, 6, 03/31/07 11:15:26, Print MARTIN Number, [facility], [address] [place] [address], [phone], Constant Indicator Start Date: 03/31/07 Stop Date: 10/27/07 Status: Ordered Tylenol 325 mg oral tablet 650 mg, 2, tablet, By Mouth, Every 4 hours, PRN, # 30 tablet, Refills 0, Tot. Refills 0, Maintenance, Pain , Mild, 11/08/21 12:55:00 EST, Route to Pharmacy Electronically, [facility]/pharmacy #[id number], Partialfill upon patient request if the prescription [...] Exam Date Time Procedure Performing Provider Status 11/07/21 3:48 PM Chest 2 Views Frontal and Lat Auth (Verified) Notes: (Chest 2 Views Frontal and Lat) Reason For Exam: Shortness of Breath RESULT: Chest 2 Views Frontal and Lat Chest 2 Views Frontal and Lat Hx of Present Illness: reports sob, increased O2 needs, fevers, upper abd pain bloating,no dysuria;Reason: Shortness of Breath; Clinical Question(s): Pneumonia; Special Instructions: This is a protocol film and radiologist should call any findings to the Charge Nurse COMPARISON: 10/31/2021 FINDINGS: LINES AND TUBES: None. LUNGS AND PLEURA: Clear lungs. Normal pulmonary vascularity. No pleural effusion. No pneumothorax. HEART, MEDIASTINUM AND MAMADOU: Heart is normal in size. Normal upper mediastinal and hilar contour. BONES AND SOFT TISSUES: Postsurgical findings in the right chest. IMPRESSION: No acute abnormality. WSN: [id number] Ordering Physician: Chucky Gage Dictated By: Yonny Lynch MD Dictated Date/Time: 11/07/21 4:54 pm Reviewed By: Yonny Lynch MD Signed By: Yonny Lynch MD Signed Date/Time: 11/07/21 4:54 pm Transcribed By: BERENICE Transcribed Date/Time: 11/07/21 4:47 pm Vital Signs Most recent to oldest [Reference Range]: 1 2 3 Height 184 cm (11/08/21 7:25 AM) 184 cm (11/08/21 4:19 AM) 184 cm (11/08/21 3:36 AM) Weight 54 kg (11/08/21 4:19 AM) 61 kg (11/08/21 3:36 AM) 55.4 kg (11/08/21 12:37 AM) Oxygen Saturation [94-100 %] 99 % (11/08/21 7:25 AM) 99 % (11/08/21 4:19 AM) 99 % (11/08/21 3:22 AM) Pulse Rate [55-90 bpm] 50 bpm *L* (11/08/21 8:40 AM) 50 bpm *L* (11/08/21 7:25 AM) 64 bpm (11/08/21 4:19 AM) Body Mass Index [18.5-24.99] 15.95 *L* (11/08/21 4:19 AM) 18.02 *L* (11/08/21 3:36 AM) 16.36 *L* (11/08/21 12:37 AM) Blood Pressure [90-138/55-84 mm Hg] 134/84mm Hg (11/08/21 8:41 AM) 134/84mm Hg (11/08/21 8:40 AM) 134/84mm Hg (11/08/21 7:25 AM) Respiratory Rate [16-30 br/min] 20 br/min (11/08/21 11:27 AM) 20 br/min (11/08/21 8:40 AM) 18 br/min (11/08/21 7:25 AM) Temperature [96.8-100.4 DegF] 98.1 DegF (11/08/21 7:25 AM) 98 DegF (11/08/21 4:19 AM) 98.7 DegF (11/08/21 3:36 AM) Liters per Minute 3 L/min (11/08/21 7:25 AM) 3 L/min (11/08/21 4:19 AM) 3 L/min (11/08/21 3:22 AM) Mode of Delivery (Oxygen) Nasal cannula (11/08/21 7:25 AM) Nasal cannula (11/08/21 4:19 AM) Nasal cannula (11/08/21 3:22 AM) Blood pressure sites Arm, right (11/08/21 7:25 AM) Arm, right (11/08/21 4:19 AM) Arm, right (11/08/21 3:36 AM) Temperature Route Temporal (11/08/21 7:25 AM) Temporal (11/08/21 4:19 AM) Oral (11/08/21 3:36 AM) Dry Weight 61 kg (11/08/21 3:36 AM) Weight Obtained Via Bed scale (11/08/21 12:37 AM) Social History Social History Type Response Tobacco Use: 2 cigarettes a day . Sex
--- OUTSIDE RECORDS SUMMARY | 2023-08-15 20:28 | XMS_ITS | Continuity of Care Document ---
Author Name Unknown Organization [facility] Address [address] [place] [address]- Care Team Providers Care Netbackup Admin Name Role Phone Jose LEE MD, Jorge Tsang Primary Care Physician [phone] Encounter [facility] Date(s): 10/06/21 - 11/05/21 [facility] [address] [place] [address]- Allergies, Adverse Reactions, Alerts Substance Reaction Severity Status morphine 1 itch Active Toradol hives Active Skelaxin H/O: migraine Active Keflex rash Active naproxen lesions on lips Active : Can tolerate Hydromorphone Immunizations Given [...] vaccine, inactivated 09/11/18 Recorded zoster vaccine, inactivated 5/9/18 Recorded Diphth-Tetanus Toxoids Adsorbed(oldterm) 06/04/07 Given Not [...] 6 Refills, Maintenance, 07/24/20 16:44:00 EDT, [facility]/pharmacy #[id number], 182, cm, 05/26/20 16:01:00 EDT, Height, 67, kg, 07/05/20 13:57:00 EDT, Dry Weight Start Date: 07/24/20 Status: Ordered albuterol CFC free 90 mcg/inh inhalation aerosol 2, puffs, Inhalation, Every 6 hours, PRN, j44.9, # 1 each, Refills 6, Tot. Refills 6, Maintenance, 07/24/20 16:44:00 EDT, Aerosol, Route to Pharmacy Electronically, [id number], [facility]/pharmacy #[id number], 182, cm, 05/26/20 16:01:00 E... Start [...] needed for pain, for 5 days, # 10 tablet, 0 Refills, Acute 11/06/21 10:39:00 EST, 11/01/21 10:39:00 EST, Tablet, [facility]/pharmacy #[id number], Partial fill uponpatient request if the prescription is for a schedu... Start Date: 11/01/21 Stop Date: 11/06/21 Status: Ordered Docusate/Senna Tablet 1 tablet, By [...] Refills, Maintenance, 08/13/20 16:33:00 EDT, Powder, [facility]/pharmacy #[id number], 182, cm, 05/26/20 16:01:00 EDT, Height, [...] drug. Start Date: 10/07/21 Status: Ordered MiraLax oral powder for reconstitution = 17 Gm, By Mouth, Daily, PRN Constipation, for 7 days, dissolve in water before taking, # 12 each,0 Refills, Acute 11/08/21 10:43:00 EST, 11/01/21 10:43:00 EST, REC Powder, [facility]/pharmacy #[id number], Partial fill upon patient request if the prescription is... Start Date: 11/01/21 Stop Date: 11/08/21 Status: Ordered MiraLax Powder 1 pack/packet = [...] 0 Refills, Maintenance, 11/01/21 10:44:00 EST, Gum, [facility]/pharmacy #[id number], Partial fill upon patient request [...] 11:15:26, Print MARTIN Number, [facility], [address] [place] [address], [phone], Constant Indicator Start Date: 03/31/07 Stop Date: [...]
--- OUTSIDE RECORDS SUMMARY | 2023-08-15 20:28 | XMS_ITS | Continuity of Care Document ---
Author Name Unknown Organization [facility] Address [address] [place] [address]- Care Team Providers Care Skin Care Therapist Name Role Phone Jose LEE MD, Jorge Tsang Primary Care Physician [phone] Encounter [facility] Date(s): 09/03/21 - 10/03/21 [facility] [address] [place] [address]- Attending Physician: Anabel Mendosa Admitting Physician: AdmtrAnabel [...] 16:44:00 EDT, Aerosol, Route to Pharmacy Electronically, [id number], [facility]/pharmacy #[id number], 182, cm, 05/26/20 [...] 13:15:00 EST, 09/28/21 13:15:00 EDT, Tablet, [facility]/pharmacy #[id number], Partial fill uponpatient request if the prescription is for a schedu... Start Date: 09/28/21 Stop Date: 10/05/21 Status: Ordered Incruse Ellipta 62.5 mcg/inh inhalation powder 1 each, Inhalation, Every 24 hours, doses should be taken at least 24 hours apart, j44.9, # 1 each,6 Refills, Maintenance, 08/13/20 16:33:00 EDT, Powder, [facility]/pharmacy #[id number], 182, cm, 05/26/20 [...] 03/31/07 11:15:26, Print MARTIN Number, [facility], [address] [place] [address], [phone], Constant Indicator Start Date: 03/31/07 Stop Date: [...]
--- OUTSIDE RECORDS SUMMARY | 2023-08-15 20:28 | XMS_ITS | Continuity of Care Document ---
Author Name Unknown Organization [facility] Address [address] [place] [address]- Care Team Providers Care Industry Analyst Name Role Phone Jose LEE MD, Jorge Tsang Primary Care Physician [place] [facility] [place]13[place]21 [place] 08/12/21 [facility] [address] [place] [address]- Allergies, Adverse Reactions, Alerts Substance Reaction Severity [...] mL, 6 Refills, Maintenance, 07/24/20 16:44:00 EDT, [facility]/pharmacy #[id number], 182, cm, 05/26/20 16:01:00 EDT, Height, 67, kg, 07/05/20 13:57:00 EDT, Dry Weight Start Date: 07/24/20 Status: Ordered albuterol CFC free 90 mcg/inh inhalation aerosol 2, puffs, Inhalation, Every 6 hours, PRN, j44.9, # 1 each, Refills 6, Tot. Refills 6, Maintenance, 07/24/20 16:44:00 EDT, Aerosol, Route to Pharmacy Electronically, [id number], [facility]/pharmacy #[id number], 182, cm, 05/26/20 [...] each,6 Refills, Maintenance, 08/13/20 16:33:00 EDT, Powder, [facility]/pharmacy #[id number], 182, cm, 05/26/20 [...] 03/31/07 11:15:26, Print MARTIN Number, [facility], [address] [place] [address], [phone], Constant Indicator Start Date: 03/31/07 Stop Date: [...]
--- OUTSIDE RECORDS SUMMARY | 2023-08-15 20:28 | XMS_ITS | Continuity of Care Document ---
Author Name Unknown Organization [facility] ter Address [address] [place] [address]- Care Team Providers Care Lip Of Shank Cutter Name Role Phone Jose LEE MD, Jorge Tsang Primary Care Physician [phone] Encounter [facility] [place] Date(s): 06/23/22 - 06/23/[address] [address]- Discharge Disposition: A-D/C AMA Attending Physician: Kelly [...] 06/27/22 15:03:00 EDT, 06/22/22 15:03:00 EDT, Capsule, [facility], Partial fill upon patient request if [...] oral capsule 600 mg, Capsule, By Mouth, 06/23/22 21:00:00 EDT Start Date: 06/23/22 Stop Date: 06/23/22 Status: Completed gabapentin 300 mg oral capsule 600 mg, 2, capsule, By Mouth, 3 times a day, # 180 capsule, Refills 0, Tot. Refills 0, Maintenance,05/16/22 16:21:00 EDT, Route to Pharmacy Electronically, [facility], Partial fill upon patient request if [...] tablet, 0 Refills, Maintenance, 06/22/22 15:01:00 EDT, [facility], Partial fill upon patient request if [...] Exam Date Time Procedure Performing Provider Status 06/23/22 1:33 PM Chest Portable Carla Garnett; Auth (Veri finewton) Notes: (Chest Portable) Reason For Exam: Shortness of Breath RESULT: Chest Portable Chest Portable Hx of Present Illness: Pt comes in with c o increased sob accompanied with a productive cough, hx copd on 2lnc as baseline. Pt also c o abdominal pain, pt on pain medication for chronic abdominal pain. Pt denies n v. Pt received a duo neb by ems prior to arrival, Reason: Shortness of Breath; Clinical Question(s): CHF COMPARISON: 06/21/2022 FINDINGS: LINES AND TUBES: None. LUNGS AND PLEURA: There has been no change from the previous examination. There is a tiny area of left basilar atelectasis. No pleural effusion. No pneumothorax. HEART, MEDIASTINUM AND MAMADOU: Heart is normal in size. Normal upper mediastinal and hilar contour. BONES AND SOFT TISSUES: There is hardware in 3 of the right-sided ribs. There is a healing fracture of the distal right clavicle. IMPRESSION: No acute abnormality. No significant interval change since the previous exam. WSN: [id number] Ordering Physician: Sona Pérez Dictated By: Talon Cruz MD Dictated Date/Time: 06/23/22 1:46 pm Reviewed By: Talon Cruz MD Signed By: Talon Cruz MD Signed Date/Time: 06/23/22 1:46 pm Transcribed By: BERENICE Transcribed Date/Time: 06/23/22 1:41 pm Vital Signs Most recent to oldest [Reference Range]: 1 2 3 Oxygen Saturation [94-100 %] 100 % (06/23/22 9:30 PM) 93 % *L* (06/23/22 7:32 PM) 98 % (06/23/22 6:26 PM) Pulse Rate [55-90 bpm] 71 bpm (06/23/22 9:30 PM) 79 bpm (06/23/22 7:32 PM) 78 bpm (06/23/22 6:26 PM) Blood Pressure [90-138/55-84 mm Hg] 117/89mm Hg (06/23/22 9:30 PM) 142/86mm Hg *H* (06/23/22 7:32 PM) 147/88mm Hg *H* (06/23/22 6:26 PM) Respiratory Rate [16-30 br/min] 20 br/min (06/23/22 9:30 PM) 18 br/min (06/23/22 7:32 PM) 18 br/min (06/23/22 6:26 PM) Temperature [96.8-100.4 DegF] 98.3 DegF (06/23/22 3:34 PM) 98.0 DegF (06/23/22 2:26 PM) Liters per Minute 2 L/min (06/23/22 9:30 PM) 2 L/min (06/23/22 7:32 PM) 2 L/min (06/23/22 4:02 PM) Mode of Delivery (Oxygen) Nasal cannula (06/23/22 9:30 PM) Nasal cannula (06/23/22 7:32 PM) Room air (06/23/22 6:26 PM) Blood pressure sites Arm, left (06/23/22 9:30 PM) Arm, left (06/23/22 7:32 PM) Arm, left (06/23/22 6:26 PM) Temperature Route Oral (06/23/22 3:34 PM) Oral (06/23/22 2:26 PM) Oral (06/23/22 1:00 PM) Social History Social History Type Response Tobacco Use: 4 or less cigar ettes(less than 1/4 pack)/day in last 30 days. Sex
--- OUTSIDE RECORDS SUMMARY | 2023-08-15 20:28 | XMS_ITS | Continuity of Care Document ---
Author Name Unknown Organization [facility] ter Address [address] [place] [id number]- Care Team Providers Care Dentistry Professor Name Role Phone Jorge Garcia III, MD Primary Care Physician [phone] Encounter [facility] Date(s): 10/05/22 - 10/06/[address] [address]- Discharge Disposition: Disch/Trans to IP Rehab or unit w/in Hos Attending Physician: Jovan Ruff MD Admitting Physician: Jovan Ruff MD Referring Physician: Not on Staff, Referring [...] Once, PRN for Pain , Moderate, Routine, 10/06/22 3:41:00 EST Start Date: 10/06/22 Stop Date: 10/06/22 Status: Completed docusate sodium 100 mg oral [...] drug. Start Date: 04/28/22 Status: Ordered gabapentin 100 mg oral capsule 100 mg, Capsule, By Mouth, Once, Routine, 10/06/22 0:00:00 EST, Stop date 10/06/22 0:00:00 EST Start Date: 10/06/22 Stop Date: 10/06/22 Status: Completed gabapentin 100 mg oral capsule 100 mg, 1, capsule, By Mouth, 2 times a day, Refills 0, Maintenance, 10/02/22 10:25:00 EDT, Partialfill upon patient request if the prescription is for a schedule II opioid drug. Start Date: 10/02/22 Status: Ordered hydrOXYzine hydrochloride 10 mg oral [...] 04/27/22 Status: Ordered lidocaine 5% topical film Topically, Daily, 0 Refills, Maintenance, 10/02/22 10:34:00 EDT, Patch, Partial fill upon patient request if the prescription is for a schedule II opioid drug. Start Date: 10/02/22 Status: Ordered Melatonin = [...] NARCOTIC OVERDOSE Start Date: 09/19/22 Status: Ordered pantoprazole 40 mg oral delayed release tablet 1 tablet = 40 mg, By Mouth, Daily Start Date: 04/27/22 Status: Ordered Senna 8.6 mg oral tablet [...] 650 mg, 2, tablet, By Mouth, Every 6 hours, Refills 0, Maintenance, 10/02/22 10:34:00 EDT, Partial fill upon patient request if the prescription is for a schedule II opioid drug. Start Date: 10/02/22 Status: Ordered vancomycin 500 [...] fractures of ribs Confirmed 01/06/11 Active Old ME (myocardial infarction) X 3 Confirmed Active PVD (peripheral vascular disease) Confirmed Active Underweight Confirmed Active 1Cardiac stents 1991, 1995 Results Radiology Reports * Exam Date Time Procedure Performing Provider Status 10/06/22 12:[address] Ext Upper W/ Contrast Right Stupak , Stu; Auth (Verified) Notes: (CT Ext Upper W/ Contrast Right) Reason For Exam: Infection RESULT: CT Ext Upper W/ Contrast Right CT Ext Upper W/ Contrast Right HISTORY: Pain. Joint lavage 09/22/2022. TECHNIQUE: Helical CT without contrast formatted in 3 planes. Weight-based protocol using automatictube modulation was used to optimize exposure parameters. CTDIvol Body: 6.80 mGy, DLP Body: 217 mGy*cm. COMPARISONS: CT 09/20/2022. MRI 07/31/2022. FINDINGS: Bones and joints: There is a marked size, lobulated subdeltoid fluid collection measuring 10 cm AP x1.4 cm transversex9 cm craniocaudal, with a higher density rim, abscess not excluded. The fluid is probably contiguous with the right glenohumeral joint space in the setting of known full-thickness rotator cuff tear. There is no acute fracture or subluxation. There is non acute appearing right distal clavicle fracture, unchanged from 09/20/2022. There is subchondral lucency with small cortical disruptions of the articular humeral head, image 40 of series 206, largely stable from 09/20/2022, suspicious for bony involvement/osteomyelitis. There is also small focal cortical irregularity in the reciprocal posterior glenoid, image 193 of series 204, concerning for osteomyelitis as well. No acute fracture or subluxation. Mild chronic-appearing deformity of the medial clavicle with degenerative changes at the sternoclavicular joint. Visualized portions of fusion hardware involving the left seventh through ninth ribs appear intact. Multiple nondisplaced chronic appearing anterior rib fractures. Partially-imaged T4-T8 compression fractures. Soft Tissues and other findings: There is no abnormal air collection. There is a 1.7 x 1.2 cm focal opacity in the right lower lobe, new from 09/15/2022, suggesting focal atelectasis. There is severe emphysema. IMPRESSION: Marked-sized lobulated subdeltoid fluid collection 10 x 1.4 x 9 cm with a higher density rim, abscess not excluded. It is probably contiguous with the right glenohumeral joint space in the setting ofknown full-thickness rotator cuff tear. There is subchondral lucency with small cortical disruptions of the articular right humeral head, as well as small cortical irregularity in the reciprocal posterior glenoid, concerning for bony involvement/osteomyelitis. Would recommend correlation with fluid aspiration. I have personally reviewed the images and I agree with this report. WSN: [id number] Ordering Physician: Lena Sofia Dictated By: Zoran Hinson MD Dictated Date/Time: 10/06/22 10:02 a Reviewed By: Jeannine Barry MD Signed By: Jeannine Barry MD Signed Date/Time: 10/06/22 10:07 am Transcribed By: BERENICE Transcribed Date/Time: 10/06/22 7:37 am Vital Signs Most recent to oldest [Reference Range]: 1 2 3 Oxygen Saturation [94-100 %] 100 % (10/06/22 2:59 AM) 100 % (10/05/22 11:29 PM) Pulse Rate [55-90 bpm] 67 bpm (10/06/22 2:59 AM) 71 bpm (10/05/22 11:29 PM) Blood Pressure [90-138/55-84 mm Hg] 133/75mm Hg (10/06/22 2:59 AM) 137/74mm Hg (10/05/22 11:29 PM) Respiratory Rate [16-30 br/min] 18 br/min (10/06/22 3:18 AM) 17 br/min (10/06/22 2:59 AM) 18 br/min (10/06/22 12:17 AM) Temperature [96.8-100.4 DegF] 98.9 DegF (10/06/22 2:59 AM) 98.7 DegF (10/05/22 11:29 PM) Liters per Minute 3 L/min (10/06/22 2:59 AM) 3 L/min (10/05/22 11:29 PM) Mode of Delivery (Oxygen) Nasal cannula (10/06/22 2:59 AM) Nasal cannula (10/05/22 11:29 PM) Temperature Route Oral (10/06/22 2:59 AM) Oral (10/05/22 11:29 PM) Social History Social History Type Response Tobacco Use: 4 or less cigar ettes(less than 1/4 pack)/day in last 30 days. Sex Note * Lena Hsieh: PERFORM, SIGN, VERIFY Event Display: Patient Education Handout Authored Date: CT Upper extremity W contrast IV * [facility] , CIS S: TRANSCRIBE Jhonny AMAYA, Jeannine Stahl: VERIFY Joya AMAYA, Zoran L: SIGN Event Display: Result: Authored Date: CT Ext Upper W/ Contrast Right HISTORY: Pain. Joint lavage 09/22/2022. TECHNIQUE: Helical CT without contrast formatted in 3 planes. Weight-based protocol using automatictube modulation was used to optimize exposure parameters. CTDIvol Body: 6.80 mGy, DLP Body: 217 mGy*cm. COMPARISONS: CT 09/20/2022. MRI 07/31/2022. FINDINGS: Bones and joints: There is a marked size, lobulated subdeltoid fluid collection measuring 10 cm AP x1.4 cm transversex9 cm craniocaudal, with a higher density rim, abscess not excluded. The fluid is probably contiguous with the right glenohumeral joint space in the setting of known full-thickness rotator cuff tear. There is no acute fracture or subluxation. There is non acute appearing right distal clavicle fracture, unchanged from 09/20/2022. There is subchondral lucency with small cortical disruptions of the articular humeral head, image 40 of series 206, largely stable from 09/20/2022, suspicious for bony involvement/osteomyelitis. There is also small focal cortical irregularity in the reciprocal posterior glenoid, image 193 of series 204, concerning for osteomyelitis as well. No acute fracture or subluxation. Mild chronic-appearing deformity of the medial clavicle with degenerative changes at the sternoclavicular joint. Visualized portions of fusion hardware involving the left seventh through ninth ribs appear intact. Multiple nondisplaced chronic appearing anterior rib fractures. Partially-imaged T4-T8 compression fractures. Soft Tissues and other findings: There is no abnormal air collection. There is a 1.7 x 1.2 cm focal opacity in the right lower lobe, new from 09/15/2022, suggesting focal atelectasis. There is severe emphysema. IMPRESSION: Marked-sized lobulated subdeltoid fluid collection 10 x 1.4 x 9 cm with a higher density rim, abscess not excluded. It is probably contiguous with the right glenohumeral joint space in the setting ofknown full-thickness rotator cuff tear. There is subchondral lucency with small cortical disruptions of the articular right humeral head, as well as small cortical irregularity in the reciprocal posterior glenoid, concerning for bony involvement/osteomyelitis. Would recommend correlation with fluid aspiration. I have personally reviewed the images and I agree with this report. WSN: [id number] Ordering Physician: Lena Sofia Dictated By: Zoran Hinson MD Dictated Date/Time: 10/06/22 10:02 a Reviewed By: Jeannine Barry MD Signed By: Jeannine Barry MD Signed Date/Time: 10/06/22 10:07 am Transcribed By: BERENICE Transcribed Date/Time: 10/06/22 7:37 am Patient Care team information Care Team Personnel Name: Michael Girard RN Position: [facility] RN Member Role: Primary Care Nurse Name: Radha Hsieh RN Position: [facility] RN Member Role: Primary Care Nurse Name: Glo Camarena RN Position: S RN Member Role: Primary Care Nurse Name: Fatimah Bennett RN Position: S RN Member Role: Primary Care Nurse Name: Mariely Hardy RN Position: [facility] RN Member Role: Primary Care Nurse Name: Sydney Zelaya Position: [facility] PCO OFFICE STAFF Member Role: Lifetime Consulting Physician Name: Judd Barahona RN Position: [facility] RN Member Role: Primary Care Nurse Name: Mag Harry RN Position: [facility] RN Member Role: Primary Care Nurse Name: An Blount RN Position: [facility] RN Supv Member Role: Primary Care Nurse Name: Marianna Ng RN Position: [facility] AMB Nurse Member Role: Primary Care Nurse Name: Avani Odell RN Position: [facility] RN Member Role: Primary Care Nurse Name: Elizabeth Noriega RN Position: [facility] RN Member Role: Primary Care Nurse Name: Ruben Bello RN Position: [facility] RN Member Role: Primary Care Nurse Name: Zoë Thompson RN Position: [facility] RN Member Role: Primary Care Nurse Name: Araceli Simon RN Position: [facility] RN Member Role: Primary Care Nurse Name: Nikki Yanez RN Position: [facility] RN Member Role: Primary Care Nurse Name: Roman Weiner RN Position: [facility] RN Member Role: Primary Care Nurse Name: Jorge Garcia III, MD Position: [facility] Ambulatory (view) Member Role: PCP Address: Address: [address] [place] [address] Name: Misty Nguyen RN Position: [facility] RN Member Role: Primary Care Nurse Name: Sarwat Aj RN Position: [facility] RN Member Role: Primary Care Nurse Name: Cassi Batista RN Position: [facility] RN Member Role: Primary Care Nurse Name: Ellis Mayfield RN Position: [facility] RN Member Role: Primary Care Nurse Name: Ayah Robison RN Position: [facility] RN Member Role: Primary Care Nurse Name: Kirstin Enriquez RN Position: [facility] RN Member Role: Primary Care Nurse Name: Jina Smalls RN Position: [facility] RN Member Role: Primary Care Nurse Name: Laura Clements RN Position: [facility] RN Member Role: Primary Care Nurse Name: Colette Syed RN Position: [facility] RN Member Role: Primary Care Nurse Name: Muriel Daley RN Position: [facility] RN Supv Member Role: Primary Care Nurse Name: Darlyn Alvarez RN Position: [facility] RN Member Role: Primary Care Nurse Name: Maribell Mejias RN Position: [facility] RN Member Role: Primary Care Nurse Name: Rachna Renteria RN Position: [facility] RN Member Role: Primary Care Nurse Name: Zohreh Pink RN Position: [facility] RN Member Role: Primary Care Nurse Name: Sophie Berrios RN Position: [facility] RN Member Role: Primary Care Nurse Name: Monse Wen RN Position: [facility] RN Member Role: Primary Care Nurse Name: Cindy Grullon RN Position: [facility] RN Supv Member Role: Primary Care Nurse Name: Elham Melgar RN Position: [facility] RN Member Role: Primary Care Nurse Name: Elham Lee RN Position: [facility] PCO RN Member Role: Primary Care Nurse Name: Ana María Cat RN Position: [facility] RN Member Role: Primary Care Nurse Name: Flor Holley Position: [facility] RN Member Role: Primary Care Nurse Name: Bret Aguirre RN Position: [facility] RN Member Role: Primary Care Nurse Name: Rosa Elena Lora RN Position: [facility] RN Member Role: Primary Care Nurse Name: Ghazal Moreno Position: [facility] RN Member Role: Primary Care Nurse Name: Audra Martinez RN Position: [facility] RN Member Role: Primary Care Nurse Name: Shahbaz Bobo RN Position: [facility] RN Member Role: Primary Care Nurse Name: Jennifer Yin LPN Position: [facility] RN Member Role: Primary Care Nurse Name: Alina Arce RN Position: [facility] RN Member Role: Primary Care Nurse Name: Marcelo Schneider RN Position: [facility] ED RN W/OE and Tasks Member Role: Primary Care Nurse Name: Daija De Paz RN Position: [facility] RN Member Role: Primary Care Nurse Name: Radha Masterson RN Position: [facility] RN Member Role: Primary Care Nurse Name: Amy Larios RN Position: [facility] RN Member Role: Primary Care Nurse Name: Indira Lindsey RN Position: [facility] SN RN Member Role: Primary Care Nurse Name: Rosa Elena Pope RN Position: [facility] RN Member Role: Primary Care Nurse Name: Florentino Garcia RN Position: [facility] RN Member Role: Primary Care Nurse Name: Cristel Moreno RN Position: [facility] SN RN Member Role: Primary Care Nurse Name: Rosa Elena De León RN Position: [facility] Hospital Hand Tile Maker Member Role: Primary Care Nurse Name: Tulio Pina RN Position: [facility] RN Member Role: Primary Care Nurse Name: Maximiliano Claros RN Position: [facility] RN Member Role: Primary Care Nurse Name: Narda Barnes RN Position: [facility] RN Member Role: Primary Care Nurse Name: Zoë Cisse RN Position: [facility] RN Member Role: Primary Care Nurse Name: Pat Bowers RN Position: [facility] SN RN Member Role: Primary Care Nurse Name: Tayler Bird RN Position: [facility] RN Member Role: Primary Care Nurse Name: Hilaria Aparicio RN Position: [facility] RN Member Role: Primary Care Nurse Name: Carly Rosado RN Position: [facility] RN Member Role: Primary Care Nurse Name: Sydney Rosado RN Position: [facility] RN Member Role: Primary Care Nurse Name: Fidencio Camarena RN Position: [facility] RN Member Role: Primary Care Nurse Name: Uriel Dumont Position: [facility] RN Member Role: Primary Care Nurse Name: Selene Vazquez RN Position: [facility] RN Member Role: Primary Care Nurse Name: Yandy Johnson RN Position: [facility] RN Member Role: Primary Care Nurse Name: Leyla Verma LPN Position: [facility] RN Member Role: Primary Care Nurse Name: Rody Mays RN Position: [facility] RN Member Role: Primary Care Nurse Name: Marielos Mixon RN Position: [facility] RN Member Role: Primary Care Nurse Name: Radha Flores RN Position: [facility] RN Member Role: Primary Care Nurse Name: Rose Kyle RN Position: [facility] Hand Tile Maker Member Role: Primary Care Nurse Name: Aimee Salamanca Position: [facility] RN Member Role: Primary Care Nurse Name: Kim Hart Position: [facility] ED RN W/OE and Tasks Member Role: Patient Care Provider Name: Kayla Queen Position: [facility] ED TA [facility] Member Role: Patient Care Provider Name: Lena Hsieh Position: [facility] Associate Professional Member Role: ED Physician Communications Professor Address: Address: [address] [place] [address] Emergency Medicine [place], [place] [address] Name: Taya Bliss Position: [facility] ED RN W/OE and Tasks Member Role: Patient Care Provider Name: Speedy AMAYA, Jovan Naik Position: [facility] ED Medicine MD Member Role: ED Attending Physician Address: Address: [address] [place] [address] [place] [address]- [place] Care Team Related Persons Name: STEVENSON HAMM Address: home [address] [address] Name: MELINA VARMA Address: home [address] [place] [address] Name: BEENA VARMA Address: home [address] [address] Name: BRIEN LANCASTER Address: home [address] [address]
--- OUTSIDE RECORDS SUMMARY | 2023-08-15 20:28 | XMS_ITS | Continuity of Care Document ---
Author Name Unknown Organization [facility] Address [address] [place] [address]- Care Team Providers Care Human Resources Services Specialist Name Role Phone Jose LEE MD, Jorge Tsang Primary Care Physician Encounter [facility] Date(s): 02/16/23 - 03/27/23 [facility] [address] [place] [id number] Attending Physician: Deepika AMAYA, Donaldo Pereira Admitting Physician: Donaldo Poe MD Referring Physician: Jorge Garica III, MD Allergies, Adverse Reactions, Alerts Substance Reaction Severity Status naproxen lesions on lips Active Toradol Morphine allergy Metaxalone Naproxen Cephalexin allergy hives Persistent Mild Active Keflex 1 rash Active Skelaxin H/O: migraine Active 1tolerates pip/tazo 11/17 Immunizations Given and Recorded Vaccine Date Status Refusal Reason [id number] 12y+ bivalent booster vax 08/23/22 Recorded SARS-CoV-2 [...] 04/18/23 9:02:00 EDT, 03/19/23 9:02:00 EDT, Patch, [facility]/pharmacy #[id number], Partial fill upon patient [...] fractures of ribs Confirmed 01/06/11 Active [place] (myocardial infarction) X 3 Confirmed Active PVD (peripheral vascular disease) Confirmed Active Underweight Confirmed Active 1Cardiac stents 1991, 1995 Social History Social History Type Response Tobacco Use: 4 or less cigar ettes(less than 1/4 pack)/day in last 30 days. Sex Patient Care team information Care Team Personnel Name: Glo Camarena RN Position: [facility] RN Member Role: Primary Care Nurse Name: Fatimah Bennett RN Position: [facility] RN Member Role: Primary Care Nurse Name: Mariely Hardy RN Position: [facility] RN Member Role: Primary Care Nurse Name: Marleen Uriarte RN Position: [facility] RN Member Role: Primary Care Nurse Name: Sydney Zelaya Position: [facility] PCO OFFICE STAFF Member Role: Lifetime Consulting Physician Name: Judd Barahona RN Position: [facility] RN Member Role: Primary Care Nurse Name: Mag Harry RN Position: [facility] RN Member Role: Primary Care Nurse Name: An Blount RN Position: [facility] RN Supv Member Role: Primary Care Nurse Name: Marianna Ng RN Position: [facility] RN Member Role: Primary Care Nurse Name: Avani Odell RN Position: [facility] RN Member Role: Primary Care Nurse Name: Lisbet Hickman RN Position: [facility] RN Member Role: Primary Care Nurse Name: Ruben Bello RN Position: [facility] RN Member Role: Primary Care Nurse Name: Araceli Simon RN Position: [facility] RN Member Role: Primary Care Nurse Name: Moni Dugan RN Position: [facility] RN Member Role: Primary Care Nurse Name: Jorge Garcia III, MD Position: Reference Physician Member Role: PCP Address: Address: [address] [place] [id number] Name: Misty Nguyen RN Position: [facility] RN Member Role: Primary Care Nurse Name: Joyce Cobb Position: [facility] RN Member Role: Primary Care Nurse Name: Sarwat Aj RN Position: [facility] RN Member Role: Primary Care Nurse Name: Cassi Batista RN Position: [facility] RN Member Role: Primary Care Nurse Name: Yanni Holland RN Position: [facility] RN Member Role: Primary Care Nurse Name: Daija Huitron RN Position: [facility] RN Member Role: Primary Care Nurse Name: Ellis Mayfield RN Position: [facility] RN Supv Member Role: Primary Care Nurse Name: Ayah Robison RN Position: [facility] RN Member Role: Primary Care Nurse Name: Kirstin Enriquez RN Position: [facility] RN Member Role: Primary Care Nurse Name: Radha Moreno RN Position: [facility] RN Member Role: Primary Care Nurse Name: Jina Smalls RN Position: [facility] RN Member Role: Primary Care Nurse Name: Laura Clements RN Position: [facility] RN Member Role: Primary Care Nurse Name: Colette Syed RN Position: [facility] RN Member Role: Primary Care Nurse Name: Muriel Daley RN Position: [facility] RN Supv Member Role: Primary Care Nurse Name: Darlyn Alvarez RN Position: [facility] RN Member Role: Primary Care Nurse Name: Zohreh Pink RN Position: [facility] RN Member Role: Primary Care Nurse Name: Sophie Berrios RN Position: [facility] RN Member Role: Primary Care Nurse Name: Grisel Mcgowan RN Position: [facility] RN Member Role: Primary Care Nurse Name: Uyen Mitchell RN Position: [facility] RN Member Role: Primary Care Nurse Name: Nasra Smith RN Position: [facility] PCO w/OE and EZ Script Member Role: Primary Care Nurse Name: Cindy Grullon RN Position: [facility] RN Supv Member Role: Primary Care Nurse Name: Silas Knox RN Position: [facility] RN Member Role: Primary Care Nurse Name: Elham Lee RN Position: [facility] RN Member Role: Primary Care Nurse Name: Dariana aMriee RN Position: [facility] RN Member Role: Primary Care Nurse Name: Ana María Cat RN Position: [facility] RN Member Role: Primary Care Nurse Name: Flor Holley Position: [facility] RN Member Role: Primary Care Nurse Name: Bret Aguirre RN Position: [facility] RN Member Role: Primary Care Nurse Name: Ghazal Moreno Position: [facility] RN Member Role: Primary Care Nurse Name: Audra Martinez RN Position: [facility] RN Member Role: Primary Care Nurse Name: Shahbaz Bobo RN Position: [facility] RN Member Role: Primary Care Nurse Name: Jennifer Yin LPN Position: [facility] RN Member Role: Primary Care Nurse Name: Alina Arce RN Position: [facility] RN Member Role: Primary Care Nurse Name: Radha Masterson RN Position: [facility] RN Member Role: Primary Care Nurse Name: Landy Villarreal RN Position: [facility] RN Member Role: Primary Care Nurse Name: Amy Larios RN Position: [facility] RN Member Role: Primary Care Nurse Name: Indira Lindsey RN Position: [facility] SN RN Member Role: Primary Care Nurse Name: Rosa Elena Pope RN Position: [facility] RN Member Role: Primary Care Nurse Name: Florentino Garcia RN Position: [facility] RN Member Role: Primary Care Nurse Name: Cristel Moreno RN Position: [facility] SN RN Member Role: Primary Care Nurse Name: Rosa Elena De León RN Position: [facility] Skein Inspector Member Role: Primary Care Nurse Name: Tulio Pina RN Position: [facility] RN Member Role: Primary Care Nurse Name: Maximiliano Claros RN Position: [facility] RN Member Role: Primary Care Nurse Name: Narda Barnes RN Position: [facility] RN Member Role: Primary Care Nurse Name: Zoë Cisse RN Position: [facility] RN Member Role: Primary Care Nurse Name: Pat Bowers RN Position: [facility] SN RN Member Role: Primary Care Nurse Name: Ruy Salcido RN Position: [facility] RN Member Role: Primary Care Nurse Name: Tayler Cabello RN Position: [facility] RN Member Role: Primary Care Nurse Name: Hilaria Aparicio RN Position: [facility] RN Member Role: Primary Care Nurse Name: Carly Rosado RN Position: [facility] RN Supv Member Role: Primary Care Nurse Name: Taryn Rosado RN Position: [facility] RN Member Role: Primary Care Nurse Name: Sydney Rosado RN Position: [facility] RN Member Role: Primary Care Nurse Name: Uriel Dumont Position: [facility] RN Member Role: Primary Care Nurse Name: Selene Vazquez RN Position: [facility] RN Member Role: Primary Care Nurse Name: Dariana Becerra RN Position: [facility] RN Member Role: Primary Care Nurse Name: Leyla Verma LPN Position: [facility] RN Member Role: Primary Care Nurse Name: Rody Mays RN Position: [facility] RN Member Role: Primary Care Nurse Name: Marielos Mixon RN Position: [facility] RN Member Role: Primary Care Nurse Name: Radha Flores RN Position: [facility] RN Member Role: Primary Care Nurse Name: Leona Alvarez RN Position: [facility] RN Member Role: Primary Care Nurse Name: Rose Kyle RN Position: [facility] Skein Inspector Member Role: Primary Care Nurse Name: Aimee Salamanca RN Position: [facility] RN Member Role: Primary Care Nurse Name: Jacobo Caceres Position: [facility] RN Member Role: Primary Care Nurse Care Team Related Persons Name: STEVENSON HAMM Address: home [address] [address] Name: MELINA VARMA Address: [place] [address] Name: GARRY VARMA Address: home [address] Name: BRIEN LANCASTER Address: home [address]
--- OUTSIDE RECORDS SUMMARY | 2023-08-15 20:28 | XMS_ITS | Continuity of Care Document ---
Author Name Unknown Organization [facility] ter Address [address] [place] [address]- Care Team Providers Care Product Safety Manager Name Role Phone Jose LEE MD, Jorge Tsang Primary Care Physician [phone] [facility] Date(s): 05/15/22 - 05/16/[address] [address] Discharge Disposition: A-D/C Home Attending Physician: Virginia Barahona MD Admitting Physician: Yair Rodríguez MD Referring Physician: Not on Staff, Referring [...] mL, 6 Refills, Maintenance, 07/24/20 16:44:00 EDT, [facility]/pharmacy #[id number], 182, cm, 05/26/20 16:01:00 EDT, Height, 67, kg, 07/05/20 13:57:00 EDT, Dry Weight Start Date: 07/24/20 Status: Ordered albuterol CFC free 90 mcg/inh inhalation aerosol 2, puffs, Inhalation, Every 6 hours, PRN, j44.9, # 1 each, Refills 6, Tot. Refills 6, Maintenance, 07/24/20 16:44:00 EDT, Aerosol, Route to Pharmacy Electronically, [id number], [facility]/pharmacy #[id number], 182, cm, 05/26/20 16:01:00 E... Start Date: 07/24/20 Status: Ordered aspirin 81 mg oral tablet 1 tablet = 81 mg, By Mouth, Daily, # 30 tablet, 0 Refills, Maintenance, 05/23/19 1:08:58 EDT, Tablet Start Date: 05/23/19 Status: Ordered atorvastatin 80 mg oral tablet By Mouth, Daily at supper, 0 Refills, Maintenance, 07/01/14 14:30:54, Tablet Start Date: 07/01/14 Status: Ordered doxycycline monohydrate 100 mg oral tablet = 100 mg, By Mouth, Every 12 hours, for 10 days, # 20 tablet, 0 Refills, Acute 05/26/22 16:02:00 EDT, 05/16/22 16:02:00 EDT, Tablet, [facility], Partial fill upon patient request if theprescription is for a schedule II opioid drug., 182... Start Date: 05/16/22 Stop Date: 05/26/22 Status: Ordered duloxetine 60 mg oral enteric [...] Maintenance,05/16/22 16:21:00 EDT, Route to Pharmacy Electronically, [facility], Partial fill upon patient request if the prescription is for a sched... Start Date: 05/16/22 Status: Ordered Incruse Ellipta 62.5 mcg/inh inhalation powder 1 each, Inhalation, Every 24 hours, doses should be taken at least 24 hours apart, j44.9, # 1 each,6 Refills, Maintenance, 03/21/22 9:48:00 EDT, Powder, [facility]/pharmacy #[id number], 182, cm, 03/12/22 4:49:00EDT, Height, 56.7, [...] 0 Refills, Maintenance, 04/03/22 16:44:00 EDT, Film, [facility]/pharmacy #[id number], Partial fill upon patient request [...] oral tablet 2.5 mg, Tablet, By Mouth, 05/16/22 9:00:00 EDT Start Date: 05/16/22 Stop Date: 05/16/22 Status: Completed loperamide 2 mg oral capsule [...] opioid drug. Start Date: 10/07/21 Status: Ordered Methadone Liquid 20 mg, Solution, By Mouth, 05/16/22 9:47:00 EDT Start Date: 05/16/22 Stop Date: 05/16/22 Status: Completed Multivitamin Daily, 0 Refills, Maintenance, 03/25/22 20:22:00 [...] = 10 mg, By Mouth, Daily, # 5 tablet, 0 Refills, Maintenance, 05/13/22 12:33:00 EDT, Tablet, [facility]/pharmacy #[id number], Partial fill upon patient request if the prescription is for a schedule II opioid drug., 182, cm, 04/26/22 9:31:00 EDT, Height, 6... Start Date: 05/13/22 Stop Date: 05/18/22 Status: Ordered predniSONE 5 mg oral delayed [...] 04/10/22 11:40:00 EDT, Route to Pharmacy Electronically, [facility]/pharmacy #[id number], Partial fill upon patientrequest if the prescription is for a schedule II op... Start Date: 04/10/22 Status: Ordered Toprol XL 25 mg oral tablet, extended release 25, mg, 1, tablet, By Mouth, Daily, 30, tablet, 6, 6, 03/31/07 11:15:26, Print MARTIN Number, ADS [facility], [address] [place] [id number], [id number], Constant Indicator Start Date: 03/31/07 Stop Date: 10/27/07 Status: Ordered Toprol XL 25 mg oral tablet, extended release 25 mg, XL Tablet, By Mouth, 05/16/22 9:00:00 EDT Start Date: 05/16/22 Stop Date: 05/16/22 Status: Completed Vitamin B1 100 mg oral [...] Multiple fractures of ribs(Confirmed) 01/06/11 Active [place] (myocardial infarctio n) X 3(Confirmed) Active PVD (peripheral vascular disease)(Confirmed) Active Underweight(Confirmed) Active 1Cardiac stents 1991, 1995 Results Radiology Reports * Exam Date Time Procedure Performing Provider Status 05/16/22 4:36 AM Foot Min 3 Views Left Florentino Gutierrez; Auth (Verified) Notes: (Foot Min 3 Views Left) Reason For Exam: Rule out osteomyelitis;Other: RESULT: Foot Min 3 Views Left Left foot, 3 views Reason: Other:; Rule out osteomyelitis; COMPARISON: 04/14/2022 FINDINGS: Severe osteopenia. Mixed irregular sclerosis through the central portion of the cuboid bone 2. No other evidence of acute or healing fracture. No cortical defects or periosteal reaction. Heavy arterial calcification. IMPRESSION: 1. No evidence of osteomyelitis. 2. Mild irregular sclerosis in the central portion of the cuboid in the setting of diffuse osteopenia could be a healing insufficiency fracture. WSN: [id number] Ordering Physician: Yair Rodríguez Dictated By: Cristóbal Jones MD Dictated Date/Time: 05/16/22 9:21 am Reviewed By: Cristóbal Jones MD Signed By: Cristóbal Jones MD Signed Date/Time: 05/16/22 9:21 am Transcribed By: BERENICE Transcribed Date/Time: 05/16/22 9:18 am * Exam Date Time Procedure Performing Provider Status 05/15/22 3:50 PM Chest 2 Views Frontal and Lat Alise Sheldon; Luis M (Verified) Notes: (Chest 2 Views Frontal and Lat) Reason For Exam: Angina RESULT: Chest 2 Views Frontal and Lat Chest 2 Views Frontal and Lat Hx of Present Illness: Patient comes in with lower chest pain radiating across the left pec and lower abdominal pain since 12:30hrs today.; COMPARISON: 05/08/2022 FINDINGS: LINES AND TUBES: None. LUNGS AND PLEURA: Clear lungs. Normal pulmonary vascularity. No pleural effusion. No pneumothorax. HEART, MEDIASTINUM AND MAMADOU: Heart is normal in size. Normal upper mediastinal and hilar contour. BONES AND SOFT TISSUES: Stable right posterior rib hardware. Unchanged multiple midthoracic compression fractures are seen on CT scan. Healing nondisplaced left posterior 6th rib fracture No new bone lesions or fractures. IMPRESSION: No acute abnormality. WSN: [id number] Ordering Physician: Yayo Villarreal Dictated By: Cristóbal Jones MD Dictated Date/Time: 05/15/22 3:53 pm Reviewed By: Cristóbal Jones MD Signed By: Cristóbal Jones MD Signed Date/Time: 05/15/22 3:53 pm Transcribed By: BERENICE Transcribed Date/Time: 05/15/22 3:51 pm Vital Signs Most recent to oldest [Reference Range]: 1 2 3 Oxygen Saturation [94-100 %] 100 % (05/16/22 11:45 AM) 100 % (05/16/22 7:07 AM) 100 % (05/15/22 11:57 PM) Pulse Rate [55-90 bpm] 99 bpm *H* (05/16/22 11:45 AM) 80 bpm (05/16/22 9:31 AM) 80 bpm (05/16/22 7:07 AM) Blood Pressure [90-138/55-84 mm Hg] 112/76mm Hg (05/16/22 11:45 AM) 124/75mm Hg (05/16/22 9:32 AM) 124/75mm Hg (05/16/22 9:31 AM) Respiratory Rate [16-30 br/min] 16 br/min (05/16/22 12:09 PM) 18 br/min (05/16/22 11:45 AM) 16 br/min (05/16/22 11:09 AM) Temperature [96.8-100.4 DegF] 97.8 DegF (05/16/22 11:45 AM) 97.8 DegF (05/16/22 7:07 AM) 98.9 DegF (05/15/22 1:42 PM) Liters per Minute 3 L/min (05/16/22 11:45 AM) 3 L/min (05/16/22 7:07 AM) 2 L/min (05/15/22 11:57 PM) Mode of Delivery (Oxygen) Nasal cannula (05/16/22 11:45 AM) Room air (05/16/22 7:07 AM) Nasal cannula (05/15/22 11:57 PM) Blood pressure sites Arm, right (05/16/22 7:07 AM) Arm, right (05/15/22 11:57 PM) Arm, right (05/15/22 10:30 PM) Temperature Route Oral (05/16/22 11:45 AM) Oral (05/16/22 7:07 AM) Oral (05/15/22 1:42 PM) Social History Social History Type Response Tobacco Use: 4 or less cigar ettes(less than 1/4 pack)/day in last 30 days. Interested in cessation: Yes. Type: Cigarettes. Sex
--- OUTSIDE RECORDS SUMMARY | 2023-08-15 20:28 | XMS_ITS | Continuity of Care Document ---
Author Name Unknown Organization [facility] Address [address] [place] [address]- Care Team Providers Care Ambulatory Service Representative Name Role Phone Jose LEE MD, Jorge Tsang Primary Care Physician Encounter [facility] Date(s): 11/25/21 - 12/25/21 [facility] [address] [place] [id number]- [place] Allergies, Adverse Reactions, Alerts Substance Reaction Severity [...] mL, 6 Refills, Maintenance, 07/24/20 16:44:00 EDT, [facility]/pharmacy #[id number], 182, cm, 05/26/20 16:01:00 EDT, Height, 67, kg, 07/05/20 13:57:00 EDT, Dry Weight Start Date: 07/24/20 Status: Ordered albuterol CFC free 90 mcg/inh inhalation aerosol 2, puffs, Inhalation, Every 6 hours, PRN, j44.9, # 1 each, Refills 6, Tot. Refills 6, Maintenance, 07/24/20 16:44:00 EDT, Aerosol, Route to Pharmacy Electronically, [id number], [facility]/pharmacy #[id number], 182, [...] 0 Refills, Maintenance, 11/01/21 10:44:00 EST, Gum, [facility]/pharmacy #[id number], Partial fill upon patient [...] 6, 03/31/07 11:15:26, Print MARTIN Number, ADS [facility], [address] [place] [id number], [id number], Constant Indicator Start Date: 03/31/07 Stop Date: 10/27/07 Status: Ordered Tylenol 325 mg oral tablet 650 mg, 2, tablet, By Mouth, Every 4 hours, PRN, # 30 tablet, Refills 0, Tot. Refills 0, Maintenance, Pain , Mild, 11/08/21 12:55:00 EST, Route to Pharmacy Electronically, [facility]/pharmacy #[id number], Partialfill upon patient request if the prescription [...]
--- OUTSIDE RECORDS SUMMARY | 2023-08-15 20:28 | XMS_ITS | Continuity of Care Document ---
Author Name Unknown Organization [facility] Address [address] [place] [address]- Care Team Providers Care Charging Operator Name Role Phone Jose LEE MD, Jorge Tsang Primary Care Physician [phone] [place] [facility] [place] 12[place]21/22 [facility] [address], [place] [address] Discharge Disposition: A-D/C Home Attending [...] and Recorded Vaccine Date Status Refusal Reason [id number] 12y+ bivalent booster vax 08/23/22 Recorded SARS-CoV-2 [...] Refills, Maintenance, 07/16/22 12:59:00 EDT, Tablet, [facility]/pharmacy #[id number], Partial fill [...] fractures of ribs Confirmed 01/06/11 Active [place] (myocardial infarction) X 3 Confirmed Active PVD (peripheral vascular disease) Confirmed Active Underweight Confirmed Active 1Cardiac stents 1991, 1995 Social History Social History Type Response Tobacco Use: 4 or less cigar ettes(less than 1/4 pack)/day in last 30 days. Sex Patient Care team information Care Team Personnel Name: Radha Hsieh RN Position: [facility] RN Member Role: Primary Care Nurse Name: Glo Camarena RN Position: [facility] RN Member Role: Primary Care Nurse Name: Fatimah Bennett RN Position: [facility] RN Member Role: Primary Care Nurse Name: Mariely Hardy RN Position: [facility] RN Member Role: Primary Care Nurse Name: Marleen Uriarte RN Position: [facility] RN Member Role: Primary Care Nurse Name: Sydney Zelaya Position: [facility] PCO OFFICE STAFF Member Role: Lifetime Consulting Physician Name: Judd Barahona RN Position: [facility] RN Member Role: Primary Care Nurse Name: Mag Harry RN Position: [facility] RN Member Role: Primary Care Nurse Name: An Blount RN Position: [facility] RN Supv Member Role: Primary Care Nurse Name: Marianna Ng RN Position: [facility] SN RN Member Role: Primary Care Nurse Name: Avani Odell RN Position: [facility] RN Member Role: Primary Care Nurse Name: Ruben Bello RN Position: [facility] RN Member Role: Primary Care Nurse Name: Zoë Thompson RN Position: [facility] RN Member Role: Primary Care Nurse Name: Araceli Simon RN Position: [facility] RN Member Role: Primary Care Nurse Name: Jorge Garcia III, MD Position: [facility] Ambulatory (view) Member Role: PCP Address: Address: [address] [place] [address] Name: Misty Nguyen RN Position: [facility] RN Member Role: Primary Care Nurse Name: Sarwat Aj RN Position: [facility] RN Member Role: Primary Care Nurse Name: Cassi Batista RN Position: [facility] RN Member Role: Primary Care Nurse Name: Daija Huitron RN Position: [facility] RN Member Role: Primary Care Nurse Name: Ellis Mayfield RN Position: [facility] RN Supv Member Role: Primary Care Nurse Name: Ayah Robison RN Position: [facility] RN Member Role: Primary Care Nurse Name: Kirstin Enriquez RN Position: [facility] RN Member Role: Primary Care Nurse Name: Jina Smalls RN Position: [facility] RN Member Role: Primary Care Nurse Name: Laura Clements RN Position: [facility] RN Member Role: Primary Care Nurse Name: Colette Syed RN Position: [facility] RN Member Role: Primary Care Nurse Name: Muriel Daley RN Position: [facility] RN Supv Member Role: Primary Care Nurse Name: Darlyn Alvarez RN Position: [facility] RN Member Role: Primary Care Nurse Name: Maribell Mejias RN Position: [facility] RN Member Role: Primary Care Nurse Name: Rachna Renteria RN Position: [facility] RN Member Role: Primary Care Nurse Name: Zohreh Pink RN Position: [facility] RN Member Role: Primary Care Nurse Name: Sophie Berrios RN Position: [facility] RN Member Role: Primary Care Nurse Name: Grisel Mcgowan RN Position: [facility] RN Member Role: Primary Care Nurse Name: Nasra Smith RN Position: [facility] RN Member Role: Primary Care Nurse Name: Cindy Grullon RN Position: [facility] RN Supv Member Role: Primary Care Nurse Name: Silas Knox RN Position: [facility] RN Member Role: Primary Care Nurse Name: Elham Melgar RN Position: [facility] RN Member Role: Primary Care Nurse Name: Elham Lee RN Position: [facility] PCO RN Member Role: Primary Care Nurse Name: Dariana Mariee RN Position: [facility] RN Member Role: Primary Care Nurse Name: Ana María Cat RN Position: [facility] RN Member Role: Primary Care Nurse Name: Flor Holley Position: [facility] RN Member Role: Primary Care Nurse Name: Bret Aguirre RN Position: [facility] RN Member Role: Primary Care Nurse Name: Ghazal Moreno Position: [facility] RN Member Role: Primary Care Nurse Name: Audra Martinez RN Position: [facility] RN Member Role: Primary Care Nurse Name: Shahbaz Bobo RN Position: [facility] RN Member Role: Primary Care Nurse Name: Jennifer Yin LPN Position: [facility] RN Member Role: Primary Care Nurse Name: Alina Arce RN Position: [facility] RN Member Role: Primary Care Nurse Name: Marcelo Schneider RN Position: [facility] ED RN W/OE and Tasks Member Role: Primary Care Nurse Name: Radha Masterson RN Position: [facility] RN Member Role: Primary Care Nurse Name: Amy Larios RN Position: [facility] RN Member Role: Primary Care Nurse Name: Indira Lindsey RN Position: [facility] SN RN Member Role: Primary Care Nurse Name: Rosa Elena Pope RN Position: [facility] RN Member Role: Primary Care Nurse Name: Florentino Garcia RN Position: [facility] RN Member Role: Primary Care Nurse Name: Cristel Moreno RN Position: [facility] SN RN Member Role: Primary Care Nurse Name: Rosa Elena De León RN Position: [facility] Press Bucker Member Role: Primary Care Nurse Name: Tulio Pina RN Position: [facility] RN Member Role: Primary Care Nurse Name: Maximiliano Claros RN Position: [facility] RN Member Role: Primary Care Nurse Name: Narda Barnes RN Position: [facility] RN Member Role: Primary Care Nurse Name: Zoë Cisse RN Position: [facility] RN Member Role: Primary Care Nurse Name: Pat Bowers RN Position: [facility] RN Member Role: Primary Care Nurse Name: Ruy Salcido RN Position: [facility] RN Member Role: Primary Care Nurse Name: Tayler Cabello RN Position: [facility] RN Member Role: Primary Care Nurse Name: Hilaria Aparicio RN Position: [facility] RN Member Role: Primary Care Nurse Name: Carly Rosado RN Position: [facility] RN Neil Member Role: Primary Care Nurse Name: Sydney Rosado RN Position: [facility] RN Member Role: Primary Care Nurse Name: Fidencio Camarena RN Position: [facility] RN Member Role: Primary Care Nurse Name: Uriel Dumont Position: [facility] RN Member Role: Primary Care Nurse Name: Selene Vazquez RN Position: [facility] RN Member Role: Primary Care Nurse Name: Dariana Becerra RN Position: [facility] RN Member Role: Primary Care Nurse Name: Leyla Verma LPN Position: [facility] RN Member Role: Primary Care Nurse Name: Rody Mays RN Position: [facility] RN Member Role: Primary Care Nurse Name: Marielos Mixon RN Position: [facility] RN Member Role: Primary Care Nurse Name: Radha Flores RN Position: [facility] RN Member Role: Primary Care Nurse Name: Rose Kyle RN Position: [facility] [employer] Member Role: Primary Care Nurse Name: Aimee Salamanca Position: [facility] RN Member Role: Primary Care Nurse Name: Jacobo Caceres Position: [facility] RN Member Role: Primary Care Nurse Care Team Related Persons Name: STEVENSON HAMM Address: home [address] [place] [id number] Name: MELINA VARMA Address: [place] [address] Name: GARRY VARMA Address: home [address] [place] [id number] Name: BRIEN LANCASTER Address: home [address] [place] [address]
--- OUTSIDE RECORDS SUMMARY | 2023-08-15 20:28 | XMS_ITS | Continuity of Care Document ---
Author Name Unknown Organization [facility] Address [address] [place] [address]- Care Team Providers Care Licensed Professional Counselor Name Role Phone Jorge Garcia III, MD Primary Care Physician [place] [facility] [place] 09/05/20 - 10/05/20 [facility] [address] [place] [address]- Allergies, Adverse Reactions, Alerts Substance Reaction Severity [...] 16:44:00 EDT, Aerosol, Route to Pharmacy Electronically, [id number], [facility]/pharmacy #[id number], 182, cm, 05/26/20 16:01:00 [...] 0 Refills, Maintenance, 09/22/20 9:05:00 EDT, Tablet, [facility]/pharmacy #[id number], 182, cm, 09/18/2013:10:00 EDT, Height, [...] 6, 03/31/07 11:15:26, Print MARTIN Number, [facility], [address] [place] [id number], [id number], Constant Indicator Start Date: 03/31/07 Stop Date: [...]
--- OUTSIDE RECORDS SUMMARY | 2023-08-15 20:28 | XMS_ITS | Continuity of Care Document ---
Author Name Unknown Organization [facility] Address [address] [place] [address]- Care Team Providers Care Wheel Press Clerk Name Role Phone Jose LEE MD, Jorge Tsang Primary Care Physician [place] [facility] [place] - 05/21/[address] [address]- Encounter Diagnosis Back pain(Final) - 05/18/21 Compression fracture of spine(Final) - 05/18/21 Left leg pain(Final) - 05/18/21 Left leg swelling(Final) - 05/18/21 Discharge Disposition: A-D/C Home Attending Physician: Brenton Queen MD Admitting Physician: Rama Mukherjee MD Referring Physician: Not on Staff, Referring [...] 16:44:00 EDT, Aerosol, Route to Pharmacy Electronically, [id number], [facility]/pharmacy #[id number], 182, cm, 05/26/20 16:01:00 E... Start [...] PRN Pain , Moderate, for 3 days, use sparingly, # 18 tablet, 0 Refills, Acute 05/24/21 8:08:00 EDT, 05/21/21 8:08:00 EDT, Tablet, [facility]/pharmacy #[id number], Partialfill upon patient request if the prescription is fo... Start Date: 05/21/21 Stop Date: 05/24/21 Status: Ordered duloxetine 60 mg oral enteric [...] oral capsule 300 mg, Capsule, By Mouth, 05/21/21 9:00:00 EDT Start Date: 05/21/21 Stop Date: 05/21/21 Status: Completed Incruse Ellipta 62.5 mcg/inh inhalation powder 1 each, Inhalation, Every 24 hours, doses should be taken at least 24 hours apart, j44.9, # 1 each,6 Refills, Maintenance, 08/13/20 16:33:00 EDT, Powder, [facility]/pharmacy #[id number], 182, cm, 05/26/20 16:01:00 EDT, Height, [...] 14:31:38, Tablet Start Date: 07/01/14 Status: Ordered oxyCODONE 5 mg oral tablet 10 mg, Tablet, By Mouth, Every 4 hours, PRN for Pain , Moderate, Routine, 05/18/21 21:03:00 EDT Start Date: 05/18/21 Stop Date: 05/21/21 Status: Discontinued Pantoprazole = 40 mg, By Mouth, Daily, 0 Refills, Maintenance, 06/30/16 11:32:53 Start Date: 06/30/16 Status: Ordered roflumilast 500 mcg oral tablet 1 tablet = 500 mcg, By Mouth, Daily, # 30 tablet, 11 Refills, Maintenance, 05/15/20 13:53:00 EDT, [facility]/pharmacy #[id number], 182, cm, 05/15/20 13:20:00 EDT, Height, [...] 6, 03/31/07 11:15:26, Print MARTIN Number, ADS [facility], [address] [place] [address], [id number], Constant Indicator Start Date: 03/31/07 Stop Date: 10/27/07 Status: Ordered Toprol XL 25 mg oral tablet, extended release 25 mg, XL Tablet, By Mouth, Hold for: abp <100, 05/21/21 9:00:00 EDT Start Date: 05/21/21 Stop Date: 05/21/21 Status: Completed Vitamin D3 400 intl units oral capsule [...] oldest [Reference Range]: 1 2 3 Weight 60.5 kg (05/20/21 7:50 AM) 60.5 kg (05/18/21 9:29 PM) Oxygen Saturation [94-100 %] 98 % (05/21/21 8:00 AM) 93 % *L* (05/21/21 4:06 AM) 94 % (05/20/21 11:49 PM) Pulse Rate [55-90 bpm] 102 bpm *H* (05/21/21 8:41 AM) 102 bpm *H* (05/21/21 8:00 AM) 85 bpm (05/21/21 4:06 AM) Blood Pressure [90-138/55-84 mm Hg] 161/70mm Hg *H* (05/21/21 8:41 AM) 161/122mm Hg *H* (05/21/21 8:00 AM) 141/70mm Hg *H* (05/21/21 4:06 AM) Respiratory Rate [16-30 br/min] 18 br/min (05/21/21 9:41 AM) 18 br/min (05/21/21 9:33 AM) 18 br/min (05/21/21 8:41 AM) Temperature [96.8-100.4 DegF] 98.4 DegF (05/21/21 8:00 AM) 98.4 DegF (05/21/21 4:06 AM) 98.6 DegF (05/20/21 11:49 PM) Liters per Minute 3 L/min (05/21/21 8:00 AM) 3 L/min (05/21/21 4:06 AM) 2 L/min (05/20/21 11:49 PM) Mode of Delivery (Oxygen) Nasal cannula (05/21/21 8:00 AM) Nasal cannula (05/21/21 4:06 AM) Nasal cannula (05/20/21 11:49 PM) Blood pressure sites Arm, right (05/21/21 8:00 AM) Arm, left (05/21/21 4:06 AM) Arm, right (05/20/21 11:49 PM) Temperature Route Oral (05/21/21 8:00 AM) Oral (05/21/21 4:06 AM) Oral (05/20/21 11:49 PM) Dry Weight 60.5 kg (05/20/21 7:50 AM) Weight Obtained Via Bed scale (05/18/21 9:29 PM) Dry Weight Obtained Via Standing scale (05/20/21 7:50 AM) Social History Social History Type Response Tobacco Use: Former smoker.. Sex
--- OUTSIDE RECORDS SUMMARY | 2023-08-15 20:29 | XMS_ITS | Continuity of Care Document ---
Author Name Unknown Organization [facility] Address [address] [place] [address]- Care Team Providers Care Corrective And Manual Arts Therapist Name Role Phone Jose LEE MD, Jorge Tsang Primary Care Physician En[place] [facility] [place] Date(s): 04/04/20 - 05/04/20 [facility] [address] [place] [address]- [facility] Attending Physician: Anabel Mendosa Admitting Physician: AdmAnabel redmond Referring Physician: AdmtrAnabel Allergies, Adverse Reactions, Alerts [...] 10:39:00 EST, Aerosol, Route to Pharmacy Electronically, [id number], [facility]/pharmacy #[id number], 182, cm, 12/26/19 9:43:00 EST, Heig... [...] 1 each, 0 Refills, Maintenance, 03/24/20 22:05:00EDT, [facility]/pharmacy #[id number], Apply to right knee for pain, [...] 1 Refills, Maintenance, 04/22/20 16:34:00 EDT, Tablet, [facility]/pharmacy #[id number], 182, cm, 04/22/20 15:28:00 EDT, Height, 56.4, kg, 07/11/19 18:58:00 EDT, DryWeight Start Date: 04/22/20 Status: Ordered predniSONE 10 mg oral tablet See Instructions, 50mg x 2 days, then 40mg x 2 days, then 30mg x 2 days, then 20 mg x 2 days, then 10 mg x 2 days, # 30 tablet, 0 Refills, Acute 05/08/20 15:00:00 EDT, 05/03/20 15:00:00 EDT, [facility]/pharmacy #[id number], 182, cm, 04/22/20 15:28:00 EDT, Height,... Start Date: 05/03/20 Stop Date: 05/08/20 Status: Ordered Senna 8.6 mg oral tablet [...] 11:15:26, Print MARTIN Number, ADS [facility], [address] [place] [address], [id number], Constant Indicator Start Date: 03/31/07 Stop Date: [...] Multiple fractures of ribs(Confirmed) 01/06/11 Active [place] (myocardial infarctio n) X 3(Confirmed) Active PVD (peripheral vascular disease)(Confirmed) Active Active smoker, 1/2 upto 2 pp d X >30 years(Confirmed) Active 1Cardiac stents 1991, 1995 Social History Social History Type Response Tobacco Use: Former smoker.. Sex
--- OUTSIDE RECORDS SUMMARY | 2023-08-15 20:29 | XMS_ITS | Continuity of Care Document ---
Author Name Unknown Organization [facility] Address [address] [address]- Care Team Providers Care News Commentator Name Role Phone Jorge Garcia III, MD Primary Care Physician [phone] Encounter [facility] Date(s): 07/11/23 - 08/10/23 [facility] [address] [facility] [address] [place], [place] [address] Attending Physician: Anabel Mendosa Admitting Physician: [...] virus vaccine, inactivated 1 10/14/06 Gi rox [id number] 12y+ bivalent booster vax 08/23/22 Recorded SARS-CoV-2 [...] opioid drug. Start Date: 07/02/22 Status: Ordered Smithers Saline 0.65% nasal gel 1 sprays, Nares, Both, 4 times a day, # 22.5 Gm, 0 Refills, Maintenance, 05/12/23 15:41:00 EDT, [facility]/pharmacy #[id number], Partial fill upon patient [...] 0 Refills, Maintenance, 06/04/23 11:59:00 EDT, Ointment, [facility]/pharmacy #[id number], Partial fill upon patient [...] 5 Refills, Maintenance, 04/27/23 13:54:00 EDT, Tablet, [facility], Partial fill upon patient request if the prescription is for a schedule II opioid drug., 183, cm, 04/27/23 7:05:00... Start Date: 04/27/23 Stop Date: 10/24/23 Status: Ordered ferrous sulfate 325 mg oral enteric coated tablet 325 mg, 1, tablet, By Mouth, Daily, # 30 tablet, Refills 1, Tot. Refills 1, Maintenance, 06/04/23 12:19:00 EDT, Route to Pharmacy Electronically, [facility]/pharmacy #[id number], Partial fill upon patient requestif the prescription [...] 06/04/23 11:59:00 EDT, Route to Pharmacy Electronically, [facility]/pharmacy #[id number], Partial fill upon patient request if the [...] 0 Refills, Soft Stop, 07/26/23 9:12:00 EDT, [facility], Partial fill upon patient [...] 0 Refills, Maintenance, 06/08/23 13:43:00 EDT, Tablet, [facility]/pharmacy #[id number], Partial fill upon patient [...] 0 Refills, Maintenance, 05/06/23 9:44:00 EDT, Tablet, [facility]/pharmacy #[id number], Partial fill upon patient [...] fractures of ribs Confirmed 01/06/11 Active Old [place] (myocardial infarction) X 3 Confirmed Active PVD [...] Personnel Name: Glo Camarena RN Position: [facility] RN Member Role: Primary Care Nurse Name: Fatimah Bennett RN Position: [facility] RN Member Role: Primary Care Nurse Name: Mariely Hardy RN Position: [facility] RN Member Role: Primary Care Nurse Name: Marleen Uriarte RN Position: [facility] RN Member Role: Primary Care Nurse Name: Sydney Zelaya Position: [facility] SN Support Member Role: Lifetime Consulting Physician Name: Judd Barahona RN Position: [facility] RN Member Role: Primary Care Nurse Name: Tayler Blackwell RN Position: [facility] RN Supv Member Role: Primary Care Nurse Name: Mag Harry RN Position: [facility] RN Member Role: Primary Care Nurse Name: An Blount RN Position: [facility] RN Supv Member Role: Primary Care Nurse Name: Guru Whitley RN Position: [facility] RN Member Role: Primary Care Nurse Name: Rebecca Whitley RN Position: [facility] RN Member Role: Primary Care Nurse Name: Marianna Ng RN Position: [facility] RN Member Role: Primary Care Nurse Name: Avani Odell RN Position: [facility] RN Member Role: Primary Care Nurse Name: Lisbet Hickman RN Position: S RN Member Role: Primary Care Nurse Name: Ruben Bello RN Position: [facility] RN Member Role: Primary Care Nurse Name: Araceli Simon RN Position: S RN Member Role: Primary Care Nurse Name: Judi Streeter RN Position: [facility] RN Member Role: Primary Care Nurse Name: Moni Dugan RN Position: [facility] RN Member Role: Primary Care Nurse Name: Jorge Garcia III, MD Position: Reference Physician Member Role: PCP Address: Address: [address] [place] [address] Name: Misty Nguyen RN Position: [facility] RN Member Role: Primary Care Nurse Name: Hetal Archer LPN Position: [facility] RN Member Role: Primary Care Nurse Name: Joyce Cobb Position: [facility] RN Member Role: Primary Care Nurse Name: Sarwat Aj RN Position: [facility] RN Member Role: Primary Care Nurse Name: César Patel RN Position: [facility] RN Member Role: Primary Care Nurse Name: Cassi Batista RN Position: [facility] RN Member Role: Primary Care Nurse Name: Daija Huitron RN Position: [facility] RN Member Role: Primary Care Nurse Name: Ellis Mayfield RN Position: [facility] RN Supv Member Role: Primary Care Nurse Name: Ayah Robison RN Position: [facility] RN Member Role: Primary Care Nurse Name: Kirstin Enriquez RN Position: [facility] RN Member Role: Primary Care Nurse Name: Radha Moreno RN Position: [facility] RN Member Role: Primary Care Nurse Name: Barb Cueto RN Position: [facility] RN Member Role: Primary Care Nurse Name: Jina Smalls RN Position: [facility] RN Member Role: Primary Care Nurse Name: Laura Clements RN Position: [facility] RN Member Role: Primary Care Nurse Name: Colette Syed RN Position: [facility] RN Member Role: Primary Care Nurse Name: Muriel Daley RN Position: [facility] RN Supv Member Role: Primary Care Nurse Name: Silas Brock RN Position: [facility] RN Member Role: Primary Care Nurse Name: Lakshmi Alonzo Position: [facility] RN Supv Member Role: Primary Care Nurse Name: Jade Valencia LPN Position: [facility] RN Member Role: Primary Care Nurse Name: Cooper Vyas RN Position: [facility] RN Member Role: Primary Care Nurse Name: Christi Gallardo Position: [facility] RN Member Role: Primary Care Nurse Name: Judith Rojas LPN Position: [facility] RN Member Role: Primary Care Nurse Name: Sydney Raza RN Position: [facility] RN Member Role: Primary Care Nurse Name: Josselin Manning Position: [facility] RN Member Role: Primary Care Nurse Name: Rachna Renteria RN Position: [facility] RN Member Role: Primary Care Nurse Name: Zohreh Pink RN Position: [facility] RN Member Role: Primary Care Nurse Name: Sophie Berrios RN Position: [facility] RN Member Role: Primary Care Nurse Name: Grisel Mcgowan RN Position: [facility] RN Member Role: Primary Care Nurse Name: Uyen Mitchell RN Position: [facility] RN Member Role: Primary Care Nurse Name: Nasra Smith NP Position: Reference Physician Member Role: Primary Care Nurse Address: Address: [address] [place] [address] Name: Concepción Hess RN Position: [facility] RN Member Role: Primary Care Nurse Name: Arminda Knox RN Position: [facility] RN Member Role: Primary Care Nurse Name: Silas Knox RN Position: [facility] ED RN W/OE and Tasks Member Role: Primary Care Nurse Name: Elham Lee RN Position: [facility] AMB Nurse Member Role: Primary Care Nurse Name: Korin Chowdhury Position: [facility] RN Member Role: Primary Care Nurse Name: Dariana Mariee RN Position: [facility] RN Member Role: Primary Care Nurse Name: Ana María Cat RN Position: [facility] RN Member Role: Primary Care Nurse Name: Janet Pacheco RN Position: [facility] RN Member Role: Primary Care Nurse Name: Flor Holley Position: [facility] RN Member Role: Primary Care Nurse Name: Bret Aguirre RN Position: [facility] RN Member Role: Primary Care Nurse Name: Audra Martinez RN Position: [facility] RN Member Role: Primary Care Nurse Name: Aure Purcell RN Position: [facility] RN Member Role: Primary Care Nurse Name: Radha Montano RN Position: [facility] RN Member Role: Primary Care Nurse Name: Shahbaz Bobo RN Position: [facility] RN Member Role: Primary Care Nurse Name: Jimi Coley RN Position: [facility] RN Member Role: Primary Care Nurse Name: Jennifer Yin LPN Position: [facility] RN Member Role: Primary Care Nurse Name: Alina Arce RN Position: [facility] RN Member Role: Primary Care Nurse Name: Judi Krueger RN Position: [facility] RN Member Role: Primary Care Nurse Name: Magdi Patiño RN Position: [facility] RN Member Role: Primary Care Nurse Name: Rosa Elena Davalos RN Position: [facility] RN Member Role: Primary Care Nurse Name: Kasia Lund RN Position: [facility] RN Member Role: Primary Care Nurse Name: Rachna Serrano RN Position: [facility] RN Member Role: Primary Care Nurse Name: Naveen Villalobos RN Position: [facility] RN Member Role: Primary Care Nurse Name: Radha Masterson RN Position: [facility] RN Member Role: Primary Care Nurse Name: Landy Villarreal RN Position: [facility] RN Member Role: Primary Care Nurse Name: Adria Bell RN Position: [facility] RN Member Role: Primary Care Nurse Name: Amy Larios RN Position: [facility] RN Member Role: Primary Care Nurse Name: Berna Hamm RN Position: [facility] RN Member Role: Primary Care Nurse Name: Indira Lindsey RN Position: [facility] SN RN Member Role: Primary Care Nurse Name: Rosa Elena Pope RN Position: [facility] RN Member Role: Primary Care Nurse Name: Florentino Garcia RN Position: [facility] RN Member Role: Primary Care Nurse Name: Cristel Moreno RN Position: [facility] SN RN Member Role: Primary Care Nurse Name: Rosa Elena De León RN Position: [facility] Picker Tender Helper Member Role: Primary Care Nurse Name: Nell Lagos RN Position: [facility] RN Member Role: Primary Care Nurse Name: Rita Rodriguez RN Position: [facility] RN Member Role: Primary Care Nurse Name: Judi Hamilton RN Position: [facility] RN Member Role: Primary Care Nurse Name: Tulio Pina RN Position: [facility] RN Member Role: Primary Care Nurse Name: Narda Barnes RN Position: [facility] RN Member Role: Primary Care Nurse Name: Zoë Cisse RN Position: [facility] RN Member Role: Primary Care Nurse Name: Pat Bowers RN Position: [facility] SN RN Member Role: Primary Care Nurse Name: Gemma Chavira RN Position: [facility] RN Member Role: Primary Care Nurse Name: Ruy Salcido RN Position: [facility] RN Member Role: Primary Care Nurse Name: Hilaria Aparicio RN Position: [facility] RN Member Role: Primary Care Nurse Name: Carly Rosado RN Position: [facility] RN Supv Member Role: Primary Care Nurse Name: Taryn Rosado RN Position: [facility] RN Member Role: Primary Care Nurse Name: Sydney Rosado RN Position: [facility] RN Member Role: Primary Care Nurse Name: Vidhi Wilkins RN Position: [facility] RN Member Role: Primary Care Nurse Name: Uriel Dumont Position: [facility] RN Member Role: Primary Care Nurse Name: Selene Vazquez RN Position: [facility] RN Member Role: Primary Care Nurse Name: César Gerber RN Position: [facility] RN Member Role: Primary Care Nurse Name: Tayler Kovacs RN Position: [facility] RN Member Role: Primary Care Nurse Name: Dariana Becerra RN Position: [facility] RN Member Role: Primary Care Nurse Name: Leyla Verma LPN Position: [facility] RN Member Role: Primary Care Nurse Name: Rody Mays RN Position: [facility] RN Member Role: Primary Care Nurse Name: Marielos Mixon RN Position: [facility] RN Member Role: Primary Care Nurse Name: Radha Flores RN Position: [facility] RN Member Role: Primary Care Nurse Name: Judi Rainey RN Position: [facility] RN Member Role: Primary Care Nurse Name: Hipolito Giles RN Position: [facility] RN Member Role: Primary Care Nurse Name: Rose Kyle RN Position: [facility] Picker Tender Helper Member Role: Primary Care Nurse Name: Ion Peralta RN Position: [facility] RN Member Role: Primary Care Nurse Name: Nida Gonsalves Position: [facility] RN Member Role: Primary Care Nurse Name: Aimee Salamanca RN Position: [facility] RN Member Role: Primary Care Nurse Name: Jacobo Caceres Position: [facility] RN Member Role: Primary Care Nurse Care Team Related Persons Name: STEVENSON HAMM Address: home [address] [address] Name: MELINA VARMA Address: home Name: GARRY VARMA Address: [address] [address]
--- OUTSIDE RECORDS SUMMARY | 2023-08-15 20:29 | XMS_ITS | Continuity of Care Document ---
Author Name Unknown Organization [facility] Address [address] [place] [address]- Care Team Providers Care Vinyl Top Installer Name Role Phone Jose LEE MD, Jorge Tsang Primary Care Physician [phone] Encounter [facility] Date(s): 04/25/22 - 04/26/[address] [address]- Encounter Diagnosis Fall(Final) - 04/26/22 Back pain(Final) - 04/26/22 Left hip pain(Final) - 04/26/22 Shortness of breath(Final) - 04/26/22 Discharge Disposition: A-D/C AMA Attending Physician: Clifton Garnica MD Admitting Physician: Harish AMAYA, Rene Casey Referring Physician: Not on Staff, Referring MD Allergies, Adverse Reactions, Alerts Substance Reaction Severity Status Skelaxin H/O: migraine Active naproxen lesions on lips Active morphine 1 itch Active Toradol hives Active Keflex 2 rash Active : Can tolerate Hydromorphone 2tolerates pip/tazo [...] 6 Refills, Maintenance, 07/24/20 16:44:00 EDT, [facility]/pharmacy #[id number], 182, cm, 05/26/20 16:01:00 EDT, Height, 67, kg, 07/05/20 13:57:00 EDT, Dry Weight Start Date: 07/24/20 Status: Ordered albuterol CFC free 90 mcg/inh inhalation aerosol 2, puffs, Inhalation, Every 6 hours, PRN, j44.9, # 1 each, Refills 6, Tot. Refills 6, Maintenance, 07/24/20 16:44:00 EDT, Aerosol, Route to Pharmacy Electronically, [id number], [facility]/pharmacy #[id number], 182, cm, 05/26/20 16:01:00 E... [...] Refills, Maintenance, 03/21/22 9:48:00 EDT, Powder, [facility]/pharmacy #[id number], 182, cm, 03/12/22 4:49:00EDT, Height, [...] Refills, Maintenance, 04/03/22 16:44:00 EDT, Film, [facility]/pharmacy #[id number], Partial fill upon patient request [...] opioid drug. Start Date: 10/07/21 Status: Ordered MorPHINE Inj 2 mg, Injection, IV Push Slowly, Once, PRN for Pain , Moderate, Routine, 04/26/22 6:58:00 EDT Start Date: 04/26/22 Stop Date: 04/26/22 Status: Completed Multivitamin Daily, 0 Refills, Maintenance, [...] Refills, Maintenance, 04/14/22 20:46:00 EDT, Tablet, [facility]/pharmacy #[id number], Partial fill upon patient request [...] 11:40:00 EDT, Route to Pharmacy Electronically, [facility]/pharmacy #[id number], Partial fill upon patientrequest if [...] 6, 03/31/07 11:15:26, Print MARTIN Number[facility] [address] [place] [id number], [phone], Constant Indicator Start Date: 03/31/07 Stop Date: [...] Exam Date Time Procedure Performing Provider Status 04/25/22 11:14 PM XR Hip w/Pelvis 2-3 View Left Brianna Brown; Auth (Verified) Notes: (XR Hip w/Pelvis 2-3 View Left) Reason For Exam: Pain RESULT: XR Hip w/Pelvis 2-3 View Left XR Hip w/Pelvis 2-3 View Left Hx of Present Illness: Pt reports unwitnessed mechanical fall from home approx 3 hrs ago. pt statestripped on oxygen tubing with his hands on the back of his rollar walker. Reports falling and hitting lower side of his back, denies head strike, LOC.Got up unaissted; Reason: Pain; Clinical Question(s): Fracture COMPARISON: 03/20/2022 FINDINGS: Postoperative findings in the left hip status post left hip arthroplasty with cerclage wires and additional fixation. Vascular stenting present in the iliac vessels. Spinal fusion also present. Exam limited due to demineralization. I do not see evidence of fracture. IMPRESSION: Limited exam. No fracture identified. WSN: [id number] Ordering Physician: Judi Diez Dictated By: Yonny Lynch MD Dictated Date/Time: 04/25/22 11:48 p Reviewed By: Yonny Lynch MD Signed By: Yonny Lynch MD Signed Date/Time: 04/25/22 11:48 pm Transcribed By: BERENICE Transcribed Date/Time: 04/25/22 11:40 pm * Exam Date Time Procedure Performing Provider Status 04/25/22 8:26 PM Chest Portable Florentino Gutierrez; Luis M ( Verified) Notes: (Chest Portable) Reason For Exam: Shortness of Breath RESULT: Chest Portable Chest Portable Reason: Shortness of Breath; Clinical Question(s): Pneumonia COMPARISON: 04/14/2022 FINDINGS: LINES AND TUBES: None. LUNGS AND PLEURA: Clear lungs. Normal pulmonary vascularity. No pleural effusion. No pneumothorax. HEART, MEDIASTINUM AND MAMADOU: Heart is normal in size. Normal upper mediastinal and hilar contour. BONES AND SOFT TISSUES: Status post ORIF multiple rib fractures. A single screw appears to be present most likely in the dorsal soft tissues at the sixth rib level also seen on the CT scan of the chest 04/03/2022 and is similar possibly slightly more lateral position. IMPRESSION: No acute abnormality. WSN: [id number] Ordering Physician: Judi Diez Dictated By: Yonny Lynch MD Dictated Date/Time: 04/25/22 9:06 pm Reviewed By: Yonny Lynch MD Signed By: Yonny Lynch MD Signed Date/Time: 04/25/22 9:06 pm Transcribed By: BERENICE Transcribed Date/Time: 04/25/22 9:02 pm Vital Signs Most recent to oldest [Reference Range]: 1 2 3 Height 182 cm (04/26/22 9:31 AM) 182 cm (04/26/22 7:15 AM) 182 cm (04/26/22 3:18 AM) Weight 54.3 kg (04/26/22 3:18 AM) Oxygen Saturation [94-100 %] 100 % (04/26/22 9:31 AM) 99 % (04/26/22 7:15 AM) 96 % (04/26/22 3:18 AM) Pulse Rate [55-90 bpm] 74 bpm (04/26/22 9:31 AM) 56 bpm (04/26/22 7:15 AM) 65 bpm (04/26/22 3:18 AM) Body Mass Index [18.5-24.99] 16.39 *L* (04/26/22 3:18 AM) Blood Pressure [90-138/55-84 mm Hg] 109/71mm Hg (04/26/22 9:31 AM) 138/85mm Hg (04/26/22 7:15 AM) 149/85mm Hg *H* (04/26/22 3:18 AM) Respiratory Rate [16-30 br/min] 17 br/min (04/26/22 9:31 AM) 21 br/min (04/26/22 7:15 AM) 20 br/min (04/26/22 6:41 AM) Temperature [96.8-100.4 DegF] 98.7 DegF (04/26/22 9:31 AM) 97.9 DegF (04/26/22 7:15 AM) 97.9 DegF (04/26/22 3:18 AM) Liters per Minute 3 L/min (04/26/22 3:18 AM) 2 L/min (04/26/22 12:41 AM) 2 L/min (04/25/22 11:51 PM) Mode of Delivery (Oxygen) Room air (04/26/22 9:31 AM) Room air (04/26/22 7:15 AM) Nasal cannula (04/26/22 3:18 AM) Blood pressure sites Arm, right (04/26/22 9:31 AM) Arm, left (04/26/22 7:15 AM) Arm, left (04/26/22 3:18 AM) Temperature Route Oral (04/26/22 9:31 AM) Oral (04/26/22 7:15 AM) Oral (04/26/22 3:18 AM) Dry Weight 60 kg (04/26/22 3:18 AM) Social History Social History Type Response Tobacco Use: 4 or less cigar ettes(less than 1/4 pack)/day in last 30 days. Interested in cessation: Yes. Type: Cigarettes. Sex
--- OUTSIDE RECORDS SUMMARY | 2023-08-15 20:29 | XMS_ITS | Continuity of Care Document ---
Author Name Unknown Organization [facility] Address [address] [place] [address]- Care Team Providers Care Professor Of Chemistry Name Role Phone Jose LEE MD, Jorge Tsang Primary Care Physician Encounter [facility] Date(s): 12/15/21 - 01/14/22 [facility] [address] [place] [address]- Attending Physician: Anabel Mendosa Admitting Physician: AdmAnabel [...] mL, 6 Refills, Maintenance, 07/24/20 16:44:00 EDT, [facility]/pharmacy #[id number], 182, cm, 05/26/20 16:01:00 EDT, Height, 67, kg, 07/05/20 13:57:00 EDT, Dry Weight Start Date: 07/24/20 Status: Ordered albuterol CFC free 90 mcg/inh inhalation aerosol 2, puffs, Inhalation, Every 6 hours, PRN, j44.9, # 1 each, Refills 6, Tot. Refills 6, Maintenance, 07/24/20 16:44:00 EDT, Aerosol, Route to Pharmacy Electronically, [id number], [facility]/pharmacy #[id number], 182, cm, 05/26/20 [...] each,6 Refills, Maintenance, 08/13/20 16:33:00 EDT, Powder, [facility]/pharmacy #[id number], 182, cm, 05/26/20 [...] 0 Refills, Maintenance, 11/01/21 10:44:00 EST, Gum, [facility]/pharmacy #[id number], Partial fill upon [...] 6, 03/31/07 11:15:26, Print MARTIN Number, [facility] [place] [address] [place] [id number], [phone], Constant Indicator Start Date: 03/31/07 Stop Date: 10/27/07 Status: Ordered Tylenol 325 mg oral tablet 650 mg, 2, tablet, By Mouth, Every 4 hours, PRN, # 30 tablet, Refills 0, Tot. Refills 0, Maintenance, Pain , Mild, 11/08/21 12:55:00 EST, Route to Pharmacy Electronically, [facility]/pharmacy #[id number], Partialfill upon patient request if the prescription [...]
--- OUTSIDE RECORDS SUMMARY | 2023-08-15 20:29 | XMS_ITS | Continuity of Care Document ---
Author Name Unknown Organization [facility] ter Address [address] [place] [id number]- Care Team Providers Care Cardiac Technologist Name Role Phone Jorge Garcia III, MD Primary Care Physician Encounter [facility] [place] Date(s): 11/21/22 - 11/22/[address] [address]- Discharge Disposition: A-D/C Walkout Attending Physician: Not [...] and Recorded Vaccine Date Status Refusal Reason [id number] 12y+ bivalent booster vax 08/23/22 Recorded SARS-CoV-2 [...] 0 Refills, Maintenance, 07/16/22 12:59:00 EDT, Tablet, [facility]/pharmacy #[id number], Partial fill upon patient [...] fractures of ribs Confirmed 01/06/11 Active Old OR (myocardial infarction) X 3 Confirmed Active PVD (peripheral vascular disease) Confirmed Active Underweight Confirmed Active 1Cardiac stents 1991, 1995 Results Radiology Reports * Exam Date Time Procedure Performing Provider Status 11/21/22 7:27 PM Chest 2 Views Frontal and Lat Vik Tse; Luis M (Verified) Notes: (Chest 2 Views Frontal and Lat) Reason For Exam: Chest Pain;Other: RESULT: Chest 2 Views Frontal and Lat Chest 2 Views Frontal and Lat Hx of Present Illness: abd pain and SOB; Reason: Other:; Chest Pain; Clinical Question(s): Other: COMPARISON: 11/13/2022 FINDINGS: LINES AND TUBES: None. LUNGS AND PLEURA: Clear lungs. Normal pulmonary vascularity. No pleural effusion. No pneumothorax. HEART, MEDIASTINUM AND MAMADOU: Heart is normal in size. Normal mediastinal and hilar contour. BONES AND SOFT TISSUES: Status post rib fracture fixation. IMPRESSION: No acute abnormality. WSN: [id number] Ordering Physician: Zoë Godwin Dictated By: Yonny Lynch MD Dictated Date/Time: 11/21/22 7:29 pm Reviewed By: Yonny Lynch MD Signed By: Yonny Lynch MD Signed Date/Time: 11/21/22 7:29 pm Transcribed By: BERENICE Transcribed Date/Time: 11/21/22 7:29 pm Vital Signs Most recent to oldest [Reference Range]: 1 2 3 Oxygen Saturation [94-100 %] 100 % (11/22/22 5:43 AM) 100 % (11/21/22 10:40 PM) 100 % (11/21/22 10:16 PM) Pulse Rate [55-90 bpm] 74 bpm (11/22/22 5:43 AM) 82 bpm (11/21/22 10:40 PM) 84 bpm (11/21/22 10:16 PM) Blood Pressure [90-138/55-84 mm Hg] 120/73mm Hg (11/22/22 5:43 AM) 120/21mm Hg (11/21/22 10:40 PM) 132/61mm Hg (11/21/22 10:16 PM) Respiratory Rate [16-30 br/min] 18 br/min (11/22/22 5:43 AM) 16 br/min (11/21/22 10:40 PM) 16 br/min (11/21/22 6:43 PM) Temperature [96.8-100.4 DegF] 97.8 DegF (11/22/22 5:43 AM) 97.9 DegF (11/21/22 10:40 PM) 98.8 DegF (11/21/22 10:16 PM) Liters per Minute 3 L/min (11/22/22 5:43 AM) 4 L/min (11/21/22 10:40 PM) 4 L/min (11/21/22 10:16 PM) Mode of Delivery (Oxygen) Nasal cannula (11/22/22 5:43 AM) Nasal cannula (11/21/22 10:40 PM) Nasal cannula (11/21/22 10:16 PM) Blood pressure sites Arm, right (11/22/22 5:43 AM) Arm, right (11/21/22 10:40 PM) Arm, right (11/21/22 10:16 PM) Temperature Route Oral (11/22/22 5:43 AM) Oral (11/21/22 10:40 PM) Oral (11/21/22 10:16 PM) Social History Social History Type Response Tobacco Use: 4 or less cigar ettes(less than 1/4 pack)/day in last 30 days. Sex Note * [facility] , CIS S: TRANSCRIBE Yonny Lynch MD: VERIFY Event Display: Result: Authored Date: [id number] Chest 2 Views Frontal and Lat Hx of Present Illness: abd pain and SOB; Reason: Other:; Chest Pain; Clinical Question(s): Other: COMPARISON: 11/13/2022 FINDINGS: LINES AND TUBES: None. LUNGS AND PLEURA: Clear lungs. Normal pulmonary vascularity. No pleural effusion. No pneumothorax. HEART, MEDIASTINUM AND MAMADOU: Heart is normal in size. Normal mediastinal and hilar contour. BONES AND SOFT TISSUES: Status post rib fracture fixation. IMPRESSION: No acute abnormality. WSN: [id number] Ordering Physician: Zoë Godwin Dictated By: Yonny Lynch MD Dictated Date/Time: 11/21/22 7:29 pm Reviewed By: Yonny Lynch MD Signed By: Yonny Lynch MD Signed Date/Time: 11/21/22 7:29 pm Transcribed By: BERENICE Transcribed Date/Time: 11/21/22 7:29 pm Patient Care team information Care Team Personnel Name: Michael Girard RN Position: [facility] RN Member Role: Primary Care Nurse Name: Radha Hsieh RN Position: [facility] RN Member Role: Primary Care Nurse Name: Glo Camarena RN Position: [facility] RN Member Role: Primary Care Nurse Name: Fatimah Bennett RN Position: [facility] RN Member Role: Primary Care Nurse Name: Mariely Hardy RN Position: [facility] RN Member Role: Primary Care Nurse Name: Marleen Uriarte RN Position: [facility] RN Member Role: Primary Care Nurse Name: Sydney Zelaya Position: [facility] PCO OFFICE STAFF Member Role: Lifetime Consulting Physician Name: Judd Barahona RN Position: [facility] RN Member Role: Primary Care Nurse Name: Mag Harry RN Position: [facility] RN Member Role: Primary Care Nurse Name: An Blount RN Position: [facility] RN Supv Member Role: Primary Care Nurse Name: Marianna Ng RN Position: [facility] SN RN Member Role: Primary Care Nurse Name: Avani Odell RN Position: [facility] RN Member Role: Primary Care Nurse Name: Elizabeth Noriega RN Position: [facility] RN Member Role: Primary Care Nurse Name: Ruben Bello RN Position: [facility] RN Member Role: Primary Care Nurse Name: Zoë Thompson RN Position: [facility] RN Member Role: Primary Care Nurse Name: Araceli Simon RN Position: [facility] RN Member Role: Primary Care Nurse Name: Jorge Garcia III, MD Position: [facility] Ambulatory (view) Member Role: PCP Address: Address: [address] [place] [id number] Name: Misty Nguyen RN Position: [facility] RN Member Role: Primary Care Nurse Name: Sarwat Aj RN Position: [facility] RN Member Role: Primary Care Nurse Name: Cassi Batista RN Position: [facility] RN Member Role: Primary Care Nurse Name: Daija Huitron RN Position: [facility] RN Member Role: Primary Care Nurse Name: Ellis Mayfield RN Position: [facility] RN Member Role: Primary Care Nurse Name: Ayah Robison RN Position: [facility] RN Member Role: Primary Care Nurse Name: Kirstin Enriquez RN Position: [facility] RN Member Role: Primary Care Nurse Name: Jina Smalls RN Position: [facility] RN Member Role: Primary Care Nurse Name: Laura Clements RN Position: [facility] RN Member Role: Primary Care Nurse Name: Colette Syed RN Position: [facility] RN Member Role: Primary Care Nurse Name: Muriel Daley RN Position: [facility] RN Supv Member Role: Primary Care Nurse Name: Darlyn Alvarez RN Position: [facility] RN Member Role: Primary Care Nurse Name: Maribell Mejias RN Position: [facility] RN Member Role: Primary Care Nurse Name: Rachna Renteria RN Position: [facility] RN Member Role: Primary Care Nurse Name: Zohreh Pink RN Position: [facility] RN Member Role: Primary Care Nurse Name: Agustina RNSophie Position: [facility] RN Member Role: Primary Care Nurse Name: Grisel Mcgowan RN Position: [facility] RN Member Role: Primary Care Nurse Name: Nasra Smith RN Position: [facility] RN Member Role: Primary Care Nurse Name: Cindy Grullon RN Position: [facility] RN Supv Member Role: Primary Care Nurse Name: Silas Knox RN Position: [facility] RN Member Role: Primary Care Nurse Name: Elham Melgar RN Position: [facility] RN Member Role: Primary Care Nurse Name: Elham Lee RN Position: [facility] PCO RN Member Role: Primary Care Nurse Name: Dariana Mariee RN Position: [facility] RN Member Role: Primary Care Nurse Name: Ana María Cat RN Position: [facility] RN Member Role: Primary Care Nurse Name: Flor Holley Position: [facility] RN Member Role: Primary Care Nurse Name: Bret Aguirre RN Position: [facility] RN Member Role: Primary Care Nurse Name: Gahzal Moreno Position: [facility] RN Member Role: Primary Care Nurse Name: Audra Martinez RN Position: [facility] RN Member Role: Primary Care Nurse Name: Shahbaz Bobo RN Position: [facility] RN Member Role: Primary Care Nurse Name: Jennifer Yin LPN Position: [facility] RN Member Role: Primary Care Nurse Name: Ailna Arce RN Position: [facility] RN Member Role: Primary Care Nurse Name: Marcelo Schneider RN Position: [facility] AUDELIA RN W/OE and Tasks Member Role: Primary Care Nurse Name: Radha Masterson RN Position: [facility] RN Member Role: Primary Care Nurse Name: Amy Larios RN Position: [facility] RN Member Role: Primary Care Nurse Name: Indira Lindsey RN Position: [facility] SN RN Member Role: Primary Care Nurse Name: Rosa Elena Pope RN Position: [facility] RN Member Role: Primary Care Nurse Name: Florentino Garcia RN Position: [facility] RN Member Role: Primary Care Nurse Name: Cristel Moreno RN Position: [facility] RN Member Role: Primary Care Nurse Name: Rosa Elena De León RN Position: [facility] Cold Press Operator Member Role: Primary Care Nurse Name: Tulio Pina RN Position: [facility] RN Member Role: Primary Care Nurse Name: Maximiliano Claros RN Position: [facility] RN Member Role: Primary Care Nurse Name: Narda Barnes RN Position: [facility] RN Member Role: Primary Care Nurse Name: Zoë Cisse RN Position: [facility] RN Member Role: Primary Care Nurse Name: Pat Bowers RN Position: [facility] RN Member Role: Primary Care Nurse Name: Ruy Salcido RN Position: [facility] RN Member Role: Primary Care Nurse Name: Tayler Cabello RN Position: [facility] RN Member Role: Primary Care Nurse Name: Hilaria Aparicio RN Position: [facility] RN Member Role: Primary Care Nurse Name: Carly Rosado RN Position: [facility] RN Neil Member Role: Primary Care Nurse Name: Sydney Rosado RN Position: [facility] RN Member Role: Primary Care Nurse Name: Uriel Dumont Position: [facility] RN Member Role: Primary Care Nurse Name: Selene Vazquez RN Position: [facility] RN Member Role: Primary Care Nurse Name: Dariana Becerra RN Position: [facility] RN Member Role: Primary Care Nurse Name: Leyla Verma LPN Position: [facility] RN Member Role: Primary Care Nurse Name: Rody Mays RN Position: [facility] RN Member Role: Primary Care Nurse Name: Marielos Mixon RN Position: [facility] RN Member Role: Primary Care Nurse Name: Radha Flores RN Position: [facility] RN Member Role: Primary Care Nurse Name: Rose Kyle RN Position: [facility] Cold Press Operator Member Role: Primary Care Nurse Name: Aimee Salamanca Position: [facility] RN Member Role: Primary Care Nurse Name: Jacobo Caceres Position: [facility] RN Member Role: Primary Care Nurse Care Team Related Persons Name: STEVENSON HAMM Address: home [address] [address] Name: MELINA VARMA Address: [place] [address] Name: GARRY VARMA Address: home [address] [address] Name: BRIEN LANCASTER Address: home [address] [address]
--- OUTSIDE RECORDS SUMMARY | 2023-08-15 20:29 | XMS_ITS | Continuity of Care Document ---
Author Name Unknown Organization [facility] ter Address [address] [place] [id number]- Care Team Providers Care Aeronautical Inspector Name Role Phone Not on Staff, PCP Primary Care Physician Unavail able Encounter [facility] Date(s): 06/05/23 - 06/05/[address] [address]- Encounter Diagnosis Hypoxia(Final) - 06/05/23 COPD exacerbation(Final) - 06/05/23 Discharge Disposition: A-D/C Home Attending Physician: Julieta Redding DO Admitting Physician: Julieta Redding DO Referring Physician: Not on Staff, Referring [...] 09/02/15 Bubba rded influenza virus vaccine, inactivated 10/6/15 Bubba rded influenza virus vaccine, inactivated 08/07/14 Bubba rded influenza virus vaccine, inactivated 08/07/14 Bubba rded influenza virus vaccine, inactivated 1 10/14/06 Gi rox [id number] 12y+ bivalent booster vax 08/23/22 Recorded SARS-CoV-2 [...] opioid drug. Start Date: 07/02/22 Status: Ordered [place] Saline 0.65% nasal gel 1 sprays, Nares, [...] Ordered doxycycline monohydrate 100 mg oral tablet 1 tablet = 100 mg, By Mouth, Every 12 hours, for 30 days, continue suppressive Doxycyline therapy, f/u with ID/Dr. Perez, # 60 tablet, 1 Refills, Acute 08/03/23 12:02:00 EDT, 06/04/23 12:02:00 EDT, Tablet, [facility]/pharmacy #[id number], Partial fill upon pat... Start Date: [...] 5 Refills, Maintenance, 04/27/23 13:54:00 EDT, Tablet, [facility], Partial fill upon patient request if the prescription is for a schedule II opioid drug., 183, cm, 04/27/23 7:05:00... Start Date: 04/27/23 Stop Date: 10/24/23 Status: Ordered ferrous sulfate 325 mg oral enteric coated tablet 325 mg, 1, tablet, By Mouth, Daily, # 30 tablet, Refills 1, Tot. 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 wireless network engineer, # 15 tablet, 0 Refills, Maintenance, 06/04/23 [...] 0 Refills, Maintenance, 05/12/23 15:40:00 EDT, Nasal [place], [facility]/pharmacy #[id number], Partial fill upon patient request if [...] fractures of ribs Confirmed 01/06/11 Active Old AL (myocardial infarction) X 3 Confirmed Active PVD (peripheral vascular disease) Confirmed Active Tobacco dependence Confirmed Active Underweight Confirmed Active 1Cardiac stents 1991, 1995 Results Radiology Reports * Exam Date Time Procedure Performing Provider Status 06/05/23 12:[address] Abd/Pelvis W/ IV Contrast Only Lorenzo Eduardo; Luis M (Verified) Notes: (CT Abd/Pelvis W/ IV Contrast Only) Reason For Exam: LLQ abdominal pain;Other: RESULT: CT Abd/Pelvis W/ IV Contrast Only CT Abd/Pelvis W/ IV Contrast Only INDICATION / CLINICAL QUESTION: Hx recent discharge for abdominal pain. TECHNIQUE: Spiral CT through the abdomen and pelvis with IV contrast formatted in 3 planes. 100 cc of Omnipaque 300 was administered intravenously. The study was performed with oral contrast. Weight-based protocol using automatic tube modulation was used to optimize exposure parameters. CTDIvol Body: 17.80 mGy, DLP Body: 830 mGy*cm. COMPARISON: 05/22/2023 FINDINGS: [place] Findings, Lines and Tubes: None.. Visualized lower chest: Small left pleural effusion. There is no pericardial effusion. Diaphragm: Unremarkable. Liver: No significant focal abnormality. Portal venous system: No thrombosis involving the portal, splenic or superior mesenteric veins. Gallbladder: Normal size. No calcified stones.. Bile ducts: No biliary dilatation. Spleen: Normal size. No focal abnormality. Pancreas: No change in the 24 mm cyst like irregularly shaped low-density abnormality in the head of the pancreas without associated biliary dilatation. Borderline enlarged pancreatic duct... Adrenal Glands: Normal. Kidneys and Ureters: Right Kidney: Normal. Left Kidney: No concerning abnormality including no hydronephrosis or stone.. Bladder: Normal. Stomach, Small bowel and Large Bowel: Stomach: Normal. Small Bowel: There is one loop of small bowel in the pelvis at the midline which is mildly dilated measuring 30 mm with a small amount of localized peritoneal fluid adjacent to it along its mesenteric border. The small bowel is otherwise normal. Large Bowel: No large bowel dilatation or gross inflammatory change. The Appendix is normal. Reproductive/Pelvic organs: No pelvic mass or localized fluid collection. Peritoneum, retroperitoneum, omentum and mesentery: There is no free air. . Small amount of peritoneal fluid associated with the small bowel in the mid pelvis. No peritoneal fluid elsewhere.. Lymph nodes: No enlarged lymph nodes Aorta and iliac vessels: Marked atherosclerosis. No aneurysm of the abdominal aorta or iliac arteries. Celiac axis, superior mesenteric artery, inferior mesenteric artery patent. Abdominal wall: No abdominal wall hernia Bones: Mild compression fractures of T12 and L1 unchanged. Prior fusion at L4-L5-S1.. No fracture or bony pelvis. Prior left total hip replacement. IMPRESSION: 1. A single loop of small bowel in the pelvis is mildly dilated at 30 mm and otherwise of normal appearance. It is associated with some localized adjacent peritoneal fluid. Etiology and significance unclear. 2. No other abnormality gastrointestinal tract. 3. Stable appearance to cystic abnormality in head of pancreas without associated biliary obstruction. 4. Otherwise no focal or acute abnormality major organs upper abdomen. 5. Prominent atherosclerosis. 6. No new bony abnormality. 7. Small left pleural effusion. WSN: [id number] Ordering Physician: Julieta Redding Dictated By: Giacomo España MD Dictated Date/Time: 06/05/23 1:07 pm Reviewed By: Giacomo España MD Signed By: Giacomo España MD Signed Date/Time: 06/05/23 1:07 pm Transcribed By: BERENICE Transcribed Date/Time: 06/05/23 12:52 pm * Exam Date Time Procedure Performing Provider Status 06/05/23 9:43 AM Chest Portable Herzig , Sablizz; Auth (Ve rified) Notes: (Chest Portable) Reason For Exam: Shortness of Breath RESULT: Chest Portable Chest Portable Hx of Present Illness: Pt BIBA from home endorsing 1 week of productive cough and worsening SOB- hxcopd wears cpap at night. A ox4. PT also endorsing 10 10 abd pain sudden onset last night. Denies cp n v d changes to stool.; Reason: Shortness of Breath; Clinical Question(s): CHF COMPARISON: 05/30/2023 and 05/29/2023 FINDINGS: LINES AND TUBES: None. LUNGS AND PLEURA: Chronic appearing increased density at the medial left lung base. Acute infiltrate cannot be excluded however. Right lung appears clear. No pulmonary vascular congestion. No pleural effusion. No pneumothorax. HEART, MEDIASTINUM AND MAMADOU: Heart is normal in size. Normal mediastinal and hilar contour. BONES AND SOFT TISSUES: No acute abnormality. Right rib fixation seen at 4 levels as before. Old left posterior lateral seventh rib callus. IMPRESSION: Chronic appearing increased density at the medial left lung base. Acute superimposed infiltrate cannot be excluded however. No evidence of congestive heart failure. WSN: [id number] Ordering Physician: Verónica Apple Dictated By: Lilibeth Velazquez MD, I Dictated Date/Time: 06/05/23 10:00 a Reviewed By: Lilibeth Velazquez MD, I Signed By: Lilibeth Velazquez MD, I Signed Date/Time: 06/05/23 10:00 am Transcribed By: BERENICE Transcribed Date/Time: 06/05/23 9:57 am Vital Signs Most recent to oldest [Reference Range]: 1 2 3 Oxygen Saturation [94-100 %] 100 % (06/05/23 3:55 PM) 95 % (06/05/23 2:51 PM) 98 % (06/05/23 12:20 PM) Pulse Rate [55-90 bpm] 102 bpm *H* (06/05/23 3:55 PM) 114 bpm *H* (06/05/23 2:51 PM) 96 bpm *H* (06/05/23 12:20 PM) Blood Pressure [90-138/55-84 mm Hg] 149/73mm Hg *H* (06/05/23 3:55 PM) 127/76mm Hg (06/05/23 2:51 PM) 149/68mm Hg *H* (06/05/23 12:20 PM) Respiratory Rate [16-30 br/min] 19 br/min (06/05/23 3:55 PM) 15 br/min *L* (06/05/23 2:51 PM) 18 br/min (06/05/23 12:20 PM) Temperature [96.8-100.4 DegF] 98.4 DegF (06/05/23 3:55 PM) 97.8 DegF (06/05/23 8:46 AM) Liters per Minute 4 L/min (06/05/23 3:55 PM) 6 L/min (06/05/23 2:51 PM) 4 L/min (06/05/23 12:20 PM) Mode of Delivery (Oxygen) Nasal cannula (06/05/23 3:55 PM) Nasal cannula (06/05/23 2:51 PM) Blood pressure sites Arm, right (06/05/23 3:55 PM) Arm, right (06/05/23 2:51 PM) Arm, right (06/05/23 12:20 PM) Temperature Route Oral (06/05/23 3:55 PM) Oral (06/05/23 8:46 AM) Social History Social History Type Response Tobacco Use: 4 or less cigar ettes(less than 1/4 pack)/day in last 30 days. Interested in cessation: Yes. Other: Reports smoked at least 30 years, up to 1-2 PPD at one point.. Type: Cigarettes. Sex Note * Director Verónica AMAYA: PERFORM Event Display: Patient Education Leaflets Authored Date: [id number] COPD Flare-Up ?? [id number] COPD Flare-Up You have had a flare-up of your COPD. COPD (chronic obstructive pulmonary disease) is a common lung disease. It causes your airways to get irritated and narrower. This makes it harder for you to breathe. Emphysema and chronic bronchitis are both types of COPD. This is a long-term (chronic) condition. This means you always have it. Sometimes it gets worse. When this happens, it's called a flare-up. Symptoms of COPD People with COPD may have symptoms most of the time. In a flare-up, your symptoms get worse. These symptoms may mean you are having a flare-up: ??? Shortness of breath, shallow or rapid breathing, orwheezing that gets worse ??? Lung infection ??? Cough that gets worse ??? More mucus (or sputum), thicker mucus, or mucus of a different color ??? Tiredness, less energy, or trouble doing your normalactivities ??? Fever ??? Chest tightness ??? Your symptoms don???t get better even when you use your normal medicines, inhalers, and nebulizer ??? Trouble talking ??? You feel confused ?? Causes of flare-ups Unfortunately, a flare-up can happen even if you did everything right, and even if you followed your healthcare provider???s instructions. Some causes of flare- ups are: ??? Cold weather ??? Smoking or secondhand smoke ??? Use of e- cigarettes or vaping products ??? Colds, the flu, or respiratory infections ??? Air pollution ??? Sudden change in the weather ??? Dust, vapors, gases, irritating chemicals, or strong fumes ??? Not taking your medicines as prescribed ??? Indoor pollution such as burning wood, smoke from home cooking, or heating fuels ?? Home care Here are some things you can do at home to treat a flare-up: ??? Keep calm and try not to panic. This makes it harder to breathe, and keeps you from doing the right things. ??? Don???t smoke or be around others who are smoking. If you smoke, quit. Smoking is the main cause of COPD. Quitting will help you be able to better manage your COPD. Don't use e-cigarettes or vaping products either. Ask your healthcare provider about ways to help you quit smoking. ??? Before drinking extra fluids during flare-ups to loosen the mucus, always talk with your healthcare provider first. ??? Eat a healthy, balanced diet. This is important to staying as healthy as possible. So is trying to stay at your ideal weight. Being overweight or underweight can affect your health. Make sure you have a lot of fruits and vegetables every day. And also eat balanced portions of whole grains, lean meats and fish, and low-fat dairy products. ??? Use your inhalers and nebulizer, if you have one, as you have been told to. When using a metered dose inhaler or nebulizer, it's very important to use the proper techniques.If you have any questions about how to use your device, contact your healthcare provider or refer to the user manual. ??? If you were given antibiotics, take them until they are used up or your provider tells you to stop. It???s important to finish the antibiotics even though you feel better. This will make sure the infection has cleared. ??? If you were given a steroid, finish it even if you feel better. ??? Learn the names of your medicines, as well as how and when to use them. Talk with yourprovider about other conditions you have and their treatment and how it may affect your COPD. ??? Oxygen may be prescribed if tests show that your blood contains too little oxygen. Ask your provider about long-term oxygen therapy. ??? Coping tips for shortness of breath include: o Exercise. Try to be as active as possible. This will improve energy levels and strengthen your muscles so you can do more. o Breathing methods. Ask your healthcare provider or nurse to show you how to do pursed-lip breathing. o Balance rest and activity. Each day, try to balance rest periods with activity. For example, you might start the day with getting dressed and eating breakfast. Then you can relax and read the paper. After that, take a brief walk. And then sit with your feet up for a while. o Pulmonary rehab (rehabilitation). Community-based and home-based programs work as well as hospital-based programs as long as they are as often and as intense. Standard home-based pulmonary rehab programs help shortness of breath in people with COPD. Supervised, traditional pulmonary rehab remains the best optionfor people with COPD. These programs help with managing your disease and also help with breathing methods, exercise, support, and counseling. To find one, ask your provider or call your local hospital. Also talk with your healthcare provider about which rehab or self- management program is best for you. ?? Preventing a flare-up Flare-ups happen. But the best way to treat one is to prevent it before it starts. Here are some pointers: ??? Don???t smoke or be around others who are smoking. Avoid using e-cigarettes due to theirharmful side effects. ??? Take your medicines as discussed with your healthcare provider. ??? Talk with your provider about getting a flu shot every year. Also find out if you need a pneumonia shot. ??? If there is a weather advisory warning to stay indoors, try to stay inside when possible. ??? Try to eat healthy, exercise, and get plenty of sleep. ??? Try to stay away from things that normally set you off. These include dust, chemical fumes, hairsprays, or strong perfumes. ?? Follow-up care Follow up with your healthcare provider as advised. If a culture was done, you will be told if your treatment needs to be changed. You can call as directed??for the results. If X-rays were done, you will be told of any new findings that may affect your care. During each appointment, talk with your healthcare provider about your ability to: ??? [place] in yournormal environment ??? Correctly use inhaler (or your medicine delivery systems) ??? [place] with other conditions you have and their treatments and how they may affect your COPD ?? Call 911 Call 911 if any of these occur: ??? Wheezing or shortness of breath does not get better with treatment ??? Chest pain or chest tightness ??? Feeling lightheaded or dizzy ??? You have trouble breathing ??? You feel confused or it???s hard to wake you up ??? You faint or lose consciousness ??? You have a rapid heart rate ??? You have new pain in your chest, arm, shoulder, neck, or upper back ?? When to seek medical advice Call your healthcare provider right away??if??any of these occur: ??? Fever of 100.4??F??(38??C) orhigher, or as directed by your healthcare provider ??? Coughing up lots of dark-colored or bloody mucus (sputum) ??? You don't start to get better within 24 hours or new symptoms develop ??? Swellingof your ankles gets worse ??? Weakness ?? Last Reviewed Date: 2021 ?? 3741-7548 [employer]. All rights reserved. This information is not intended as a substitute for professional medical care. Always follow your healthcare professional's instructions. ?? Patient Care team information Care Team Personnel Name: Glo Camarena RN Position: [facility] RN Member Role: Primary Care Nurse Name: Fatimah Bennett RN Position: [facility] RN Member Role: Primary Care Nurse Name: Mariely Hardy RN Position: [facility] RN Member Role: Primary Care Nurse Name: Marleen Uriarte RN Position: [facility] RN Member Role: Primary Care Nurse Name: Sydney Zelaya Position: [facility] SN Support Member Role: Lifetime Consulting Physician Name: Judd Barahona RN Position: [facility] RN Member Role: Primary Care Nurse Name: Mag Harry RN Position: [facility] RN Member Role: Primary Care Nurse Name: An Blount RN Position: [facility] RN Neil Member Role: Primary Care Nurse Name: Rebecca Whitley RN Position: [facility] RN Member Role: Primary Care Nurse Name: Marianna Ng RN Position: [facility] RN Member Role: Primary Care Nurse Name: Avani Odell RN Position: [facility] RN Member Role: Primary Care Nurse Name: Lisbet Hickman RN Position: [facility] RN Member Role: Primary Care Nurse Name: Ruben Bello RN Position: [facility] RN Member Role: Primary Care Nurse Name: Araceli Simon RN Position: [facility] RN Member Role: Primary Care Nurse Name: Judi Streeter RN Position: [facility] RN Member Role: Primary Care Nurse Name: Moni Dugan RN Position: [facility] RN Member Role: Primary Care Nurse Name: Misty Nguyen RN Position: [facility] RN Member Role: Primary Care Nurse Name: Hetal Archer LPN Position: [facility] RN Member Role: Primary Care Nurse Name: Joyce Cobb Position: [facility] RN Member Role: Primary Care Nurse Name: Sarwat Aj RN Position: [facility] RN Member Role: Primary Care Nurse Name: César Patel RN Position: [facility] RN Member Role: Primary Care Nurse Name: Cassi Batista RN Position: [facility] RN Member Role: Primary Care Nurse Name: Daija Huitron RN Position: [facility] RN Member Role: Primary Care Nurse Name: Ellis Mayfield RN Position: [facility] RN Supv Member Role: Primary Care Nurse Name: Ayah Robison RN Position: [facility] RN Member Role: Primary Care Nurse Name: Radha Moreno RN Position: [facility] RN Member Role: Primary Care Nurse Name: Jina Smalls RN Position: [facility] RN Member Role: Primary Care Nurse Name: Laura Clemenst RN Position: [facility] RN Member Role: Primary Care Nurse Name: Colette Syed RN Position: [facility] RN Member Role: Primary Care Nurse Name: Muriel Daley RN Position: [facility] RN Supv Member Role: Primary Care Nurse Name: Judith Rojas LPN Position: [facility] RN Member Role: Primary Care Nurse Name: Sydney Raza RN Position: [facility] RN Member Role: Primary Care Nurse Name: Rachna Renteria RN Position: [facility] RN Member Role: Primary Care Nurse Name: Zohreh Pink RN Position: [facility] RN Member Role: Primary Care Nurse Name: Sophie Berrios RN Position: [facility] RN Member Role: Primary Care Nurse Name: Grisel Mcgowan RN Position: [facility] RN Member Role: Primary Care Nurse Name: Uyen Mitchell RN Position: [facility] RN Member Role: Primary Care Nurse Name: Nasra Smith NP Position: Reference Physician Member Role: Primary Care Nurse Address: Address: [address] [place] [address] Name: Silas Knox RN Position: [facility] RN Member Role: Primary Care Nurse Name: Elham Lee RN Position: [facility] AMB Nurse Member Role: Primary Care Nurse Name: Dariana Mariee RN Position: [facility] RN Member Role: Primary Care Nurse Name: Ana María Cat RN Position: [facility] RN Member Role: Primary Care Nurse Name: Janet Pacheco RN Position: [facility] RN Member Role: Primary Care Nurse Name: Flor Holley Position: [facility] RN Member Role: Primary Care Nurse Name: Bret Aguirre RN Position: [facility] RN Member Role: Primary Care Nurse Name: Audra Martinez RN Position: [facility] RN Member Role: Primary Care Nurse Name: Shahbaz Bobo RN Position: [facility] RN Member Role: Primary Care Nurse Name: Jennifer Yin LPN Position: [facility] RN Member Role: Primary Care Nurse Name: Alina Arce RN Position: [facility] RN Member Role: Primary Care Nurse Name: Judi Krueger RN Position: [facility] RN Member Role: Primary Care Nurse Name: Kasia Lund RN Position: [facility] RN Member Role: Primary Care Nurse Name: Rachna Serrano RN Position: [facility] RN Member Role: Primary Care Nurse Name: Naveen Villalobos RN Position: [facility] RN Member Role: Primary Care Nurse Name: Not on Staff, PCP Position: [facility] Physician (General Medicine) Member Role: PCP Name: Radha Masterson RN Position: [facility] RN Member Role: Primary Care Nurse Name: Landy Villarreal RN Position: [facility] RN Member Role: Primary Care Nurse Name: Adria Bell RN Position: [facility] RN Member Role: Primary Care Nurse Name: Amy Larios RN Position: [facility] RN Member Role: Primary Care Nurse Name: Indira Lindsey RN Position: [facility] SN RN Member Role: Primary Care Nurse Name: Rosa Elena Pope RN Position: [facility] RN Member Role: Primary Care Nurse Name: Florentino Garcia RN Position: [facility] RN Member Role: Primary Care Nurse Name: Cristel Moreno RN Position: [facility] SN RN Member Role: Primary Care Nurse Name: Rosa Elena De León RN Position: [facility] Tender Member Role: Primary Care Nurse Name: Nell Lagos RN Position: [facility] RN Member Role: Primary Care Nurse Name: Judi Hamilton RN Position: [facility] RN Member Role: Primary Care Nurse Name: Tulio Pina RN Position: [facility] RN Member Role: Primary Care Nurse Name: Maximiliano Claros RN Position: [facility] RN Member Role: Primary Care Nurse Name: Narda Barnes RN Position: [facility] RN Member Role: Primary Care Nurse Name: Zoë Cisse RN Position: [facility] RN Member Role: Primary Care Nurse Name: Pat Bowers RN Position: [facility] RN Member Role: Primary Care Nurse Name: Gemma Chavira RN Position: [facility] RN Member Role: Primary Care Nurse Name: Ruy Salcido RN Position: [facility] RN Member Role: Primary Care Nurse Name: Hilaria Aparicio RN Position: [facility] RN Member Role: Primary Care Nurse Name: Carly Rosado RN Position: [facility] RN Supv Member Role: Primary Care Nurse Name: Taryn Rosado RN Position: [facility] RN Member Role: Primary Care Nurse Name: Sydney Rosado RN Position: [facility] RN Member Role: Primary Care Nurse Name: Magy Bar RN Position: [facility] RN Member Role: Primary Care Nurse Name: Uriel Dumont Position: [facility] RN Member Role: Primary Care Nurse Name: Selene Vazquez RN Position: [facility] RN Member Role: Primary Care Nurse Name: César Gerber RN Position: [facility] RN Member Role: Primary Care Nurse Name: Dariana Becerra RN Position: [facility] RN Member Role: Primary Care Nurse Name: Leyla Verma LPN Position: [facility] RN Member Role: Primary Care Nurse Name: Rody Mays RN Position: [facility] RN Member Role: Primary Care Nurse Name: Marielos Mixon RN Position: [facility] RN Member Role: Primary Care Nurse Name: Radha Flores RN Position: [facility] RN Member Role: Primary Care Nurse Name: Hipolito Giles RN Position: [facility] RN Member Role: Primary Care Nurse Name: Rose Kyle RN Position: [facility] Tender Member Role: Primary Care Nurse Name: Aimee Salamanca RN Position: [facility] RN Member Role: Primary Care Nurse Name: Jacobo Caceres Position: [facility] RN Member Role: Primary Care Nurse Name: Verónica Apple MD Position: [facility] Resident Member Role: ED Resident Address: Address: [address] [place] [address] Emergency [place], [place] [address] Name: Tana Peterson Position: [facility] ED TA [facility] Member Role: Patient Care Provider Name: Dipika Guillen RN Position: [facility] ED RN W/OE and Tasks Member Role: Patient Care Provider Name: Julieta Redding DO Position: [facility] Resident Member Role: Admitting Physician Address: Address: [address] [place] [address] [place] [address]- Care Team Related Persons Name: STEVENSON HAMM Address: home [address] [address] Name: MELINA VARMA Address: home ID Name: GARRY VARMA Address: home [address] [address]
--- OUTSIDE RECORDS SUMMARY | 2023-08-15 20:29 | XMS_ITS | Continuity of Care Document ---
Author Name Unknown Organization [facility] Address [address] [place] [address]- Care Team Providers Care Central Processing Tech Name Role Phone Jorge Garcia III, MD Primary Care Physician Encounter [facility] Date(s): 07/11/20 - 08/10/20 [facility] [address] [place] [address]- [facility] Allergies, Adverse Reactions, Alerts Substance [...] 16:44:00 EDT, Aerosol, Route to Pharmacy Electronically, [id number], [facility]/pharmacy #[id number], 182, cm, 05/26/20 16:01:00 [...] 0 Refills, Maintenance, 07/24/20 16:44:00 EDT, Tablet, [facility]/pharmacy #[id number], 182, cm, 05/26/20 16:01:00 EDT, Height, 67, kg, 07/05/20 13:57:00 EDT, Dry Weight Start Date: 07/24/20 Status: Ordered predniSONE 5 mg oral tablet 3 tablet = 15 mg, By Mouth, Daily, for 30 days, with food or milk, # 90 tablet, 0 Refills, Hard Stop 08/13/20 15:00:00 EDT, 07/14/20 15:00:00 EDT, Tablet, [facility]/pharmacy #[id number], 182, cm, 05/26/20 16:01:00 [...] Acute 11/08/20 13:57:00 EST, 05/15/20 13:55:00 EDT, [facility]/pharmacy #[id number], 182, cm, 05/15/20 [...] 6, 03/31/07 11:15:26, Print MARTIN Number, [facility], [address] [place] [id number], [id number], Constant Indicator Start Date: 03/31/07 Stop Date: [...]
--- OUTSIDE RECORDS SUMMARY | 2023-08-15 20:29 | XMS_ITS | Continuity of Care Document ---
Author Name Unknown Organization [facility] ter Address [address] [place] [address]- Care Team Providers Care Intelligence Agent Name Role Phone Jose LEE MD, Jorge Tsang Primary Care Physician [phone] Encounter [facility] Date(s): 01/23/20 - 03/12/[address] [address]- [place] Attending Physician: Oscar Rios MD Admitting Physician: [...] 10:39:00 EST, Aerosol, Route to Pharmacy Electronically, [id number], [facility]/pharmacy #[id number], 182, cm, 12/26/19 9:43:00 EST, [place]... Start Date: 12/26/19 Status: Ordered apixaban = 5 mg, By Mouth, 2 times a day, To start after 7 days of 10 mg dose, 0 Refills, Maintenance, 05/27/19 14:17:22 EDT, Tablet Start Date: 05/27/19 Status: Ordered [employer] Tell[employer] ag, See Instructions, # 1 box, Refills [...] Refills, Soft Stop, 12/26/19 9:58:00 EST, Tablet, [facility]/pharmacy #[id number], 182, cm, 12/26/19 9:43:00 EST, Height, [...] 0 Refills, Maintenance, 03/12/20 17:24:00 EDT, Tablet, [facility]/pharmacy #[id number], 182, cm, 03/05/20 9:03:00 EDT, Height, 56.4, kg, 07/11/19 18:58:00 EDT, Dry Weight Start Date: 03/12/20 Status: Ordered predniSONE 5 mg oral tablet See Instructions, 05/03-5/5-4/4-3/3-2/2-1/1 tablets 2 days each, # 42 tablet, 0 Refills, Maintenance,03/12/20 17:23:00 EDT, [facility]/pharmacy #[id number], 182, cm, 03/05/20 9:03:00 EDT, Height, 56.4, kg, 07/11/19 18:58:00 EDT, Dry Weight Start Date: 03/12/20 Status: Ordered predniSONE 5 mg oral tablet See Instructions, 05/03-5/5-4/4-3/3-2/2-1/1 tablets 2 days each, # 42 tablet, 0 Refills, Maintenance,03/05/20 9:43:00 EDT, [facility]/pharmacy #[id number], 182, cm, 03/05/20 9:03:00 EDT, Height, [...] MARTIN Number, ADS [facility], [address] [place] [id number], [id number], Constant Indicator Start Date: 03/31/07 Stop Date: [...] 6 Refills, Maintenance, 01/24/20 10:21:00 EST, Aerosol, [facility]/pharmacy #[id number], 182, cm, 12/26/19 9:43:00 EST, Height, [...]
--- OUTSIDE RECORDS SUMMARY | 2023-08-15 20:29 | XMS_ITS | Continuity of Care Document ---
Author Name Unknown Organization [facility] Address [address] [place] [address]- Care Team Providers Care Hydro Station Supervisor Name Role Phone Jose LEE MD, Jorge Tsang Primary Care Physician Encounter [facility] Date(s): 09/03/21 - 10/03/21 [facility] [address] [place] [address]- Allergies, Adverse Reactions, Alerts Substance Reaction [...] mL, 6 Refills, Maintenance, 07/24/20 16:44:00 EDT, [facility]/pharmacy #[id number], 182, cm, 05/26/20 16:01:00 EDT, Height, 67, kg, 07/05/20 13:57:00 EDT, Dry Weight Start Date: 07/24/20 Status: Ordered albuterol CFC free 90 mcg/inh inhalation aerosol 2, puffs, Inhalation, Every 6 hours, PRN, j44.9, # 1 each, Refills 6, Tot. Refills 6, Maintenance, 07/24/20 16:44:00 EDT, Aerosol, Route to Pharmacy Electronically, [id number], [facility]/pharmacy #[id number], 182, cm, 05/26/20 16:01:00 [...] 10/05/21 13:15:00 EST, 09/28/21 13:15:00 EDT, Tablet, [facility]/pharmacy #[id number], Partial fill uponpatient request if the prescription is for a schedu... Start Date: 09/28/21 Stop Date: 10/05/21 Status: Ordered Incruse Ellipta 62.5 mcg/inh inhalation powder 1 each, Inhalation, Every 24 hours, doses should be taken at least 24 hours apart, j44.9, # 1 each,6 Refills, Maintenance, 08/13/20 16:33:00 EDT, Powder, [facility]/pharmacy #[id number], 182, cm, 05/26/20 16:01:00 [...] 6, 03/31/07 11:15:26, Print MARTIN Number, ADS [facility], [address] [place] [id number], [id number], Constant Indicator Start Date: 03/31/07 Stop Date: [...] Multiple fractures of ribs(Confirmed) 01/06/11 Active Old [place] (myocardial infarctio n) X 3(Confirmed) Active PVD (peripheral vascular disease)(Confirmed) Active 1Cardiac stents 1991, 1995 Social History Social History Type Response Tobacco Use: 2 cigarettes a day . Sex
--- OUTSIDE RECORDS SUMMARY | 2023-08-15 20:29 | XMS_ITS | Continuity of Care Document ---
Author Name Unknown Organization [facility] Address [address] [place] [address]- Care Team Providers Care Clinical Care Coordinator Name Role Phone Jorge Garcia III, MD Primary Care Physician [place] [facility] Date(s): 05/20/22 - 07/10/22 [facility] [address] [place] [address]- Attending Physician: Delmar Gonzalez MD Admitting Physician: [...] 0 Refills, Maintenance, 07/10/22 15:05:00 EDT, Tablet, [id number], Partial fill upon [...] 07/11/22 22:00:00 EDT, 07/10/22 15:06:00 EDT, Tablet, [facility]/pharmacy #[id number], Pa... Start Date: 07/10/22 Stop Date: [...] Maintenance,05/16/22 16:21:00 EDT, Route to Pharmacy Electronically, [facility], Partial fill upon patient request if the prescription is for a sched... Start Date: 05/16/22 Status: Ordered HYDROmorphone 2 mg oral tablet 1 tablet = 2 mg, By Mouth, Every 4 hours, PRN Pain , Moderate, for 3 days, # 18 tablet, 0 Refills, Acute 07/13/22 15:02:00 EDT, 07/10/22 15:02:00 EDT, Tablet, [facility]/pharmacy #[id number], [...] 07/11/22 15:04:00 EDT, 07/10/22 15:04:00 EDT, Tablet, [facility]/pharmacy #[id number], [...]
--- OUTSIDE RECORDS SUMMARY | 2023-08-15 20:29 | XMS_ITS | Continuity of Care Document ---
Author Name Unknown Organization [facility] ter Address [address] [place] [address]- Care Team Providers Care Foreign Banknote Teller Name Role Phone Jose LEE MD, Jorge Tsang Primary Care Physician Encounter [facility] Date(s): 07/01/22 - 07/01/[address] [address]- Encounter Diagnosis Generalized weakness(Final) - 07/01/22 COPD, mild(Final) - 07/01/22 Abdominal pain(Final) - 07/01/22 Discharge Disposition: A-D/C Home Attending Physician: Hansel Motta MD Admitting Physician: Hansel Motta MD Referring Physician: Not on Staff, Referring [...] hours, PRN for Pain , Moderate, Routine, 07/01/22 7:52:00 EDT Start Date: 07/01/22 Stop Date: 07/02/22 Status: Discontinued docusate sodium 100 mg oral [...] Maintenance,05/16/22 16:21:00 EDT, Route to Pharmacy Electronically, [facility], Partial fill upon patient [...] tablet, 0 Refills, Maintenance, 06/22/22 15:01:00 EDT, [facility], Partial fill upon patient request if [...] Multiple fractures of ribs(Confirmed) 01/06/11 Active Old [place] (myocardial infarctio n) X 3(Confirmed) Active PVD (peripheral vascular disease)(Confirmed) Active 1Cardiac stents 1991, 1995 Results Radiology Reports * Exam Date Time Procedure Performing Provider Status 07/01/22 4:13 AM Chest 2 Views Frontal and Lat Brianna Hines; Luis M (Verified) Notes: (Chest 2 Views Frontal and Lat) Reason For Exam: Shortness of Breath RESULT: Chest 2 Views Frontal and Lat Chest 2 Views Frontal and Lat Hx of Present Illness: Pt with abdominal pain and Left leg pain for last week. Seen at [facility] ER last night and had lab and radiology studies completed. Pt unsure of diagnosis.; Reason: Shortness of Breath; Clinical Question(s): CHF COMPARISON: 06/24/2022 FINDINGS: LINES AND TUBES: None. LUNGS AND PLEURA: Lungs hyperinflated and clear without infiltrate or volume loss. No pleural effusion. No pneumothorax. HEART, MEDIASTINUM AND MAMADOU: Heart is normal in size. Normal upper mediastinal and hilar contour. BONES AND SOFT TISSUES: No acute abnormality. There are multiple chronic thoracic compression fractures. There is old healed distal right clavicular fracture. There has been right-sided rib fixation. IMPRESSION: COPD without evidence for superimposed acute chest pathology. WSN: [id number] Ordering Physician: Marcelo Freeman Dictated By: Manjinder Huber MD Dictated Date/Time: 07/01/22 8:13 am Reviewed By: Manjinder Huber MD Signed By: Manjinder Huber MD Signed Date/Time: 07/01/22 8:13 am Transcribed By: BERENICE Transcribed Date/Time: 07/01/22 8:11 am Vital Signs Most recent to oldest [Reference Range]: 1 2 3 Height 183 cm (07/01/22 5:10 AM) 183 cm (07/01/22 3:20 AM) 183 cm (07/01/22 3:16 AM) Weight 62 kg (07/01/22 5:10 AM) 62 kg (07/01/22 3:20 AM) 62 kg (07/01/22 3:16 AM) Oxygen Saturation [94-100 %] 97 % (07/01/22 2:22 PM) 100 % (07/01/22 12:08 PM) 99 % (07/01/22 10:13 AM) Pulse Rate [55-90 bpm] 81 bpm (07/01/22 2:22 PM) 67 bpm (07/01/22 12:08 PM) 67 bpm (07/01/22 10:13 AM) Body Mass Index [18.5-24.99] 18.51 (07/01/22 5:10 AM) 18.51 (07/01/22 3:16 AM) Blood Pressure [90-138/55-84 mm Hg] 141/94mm Hg *H* (07/01/22 2:22 PM) 155/96mm Hg *H* (07/01/22 12:08 PM) 120/86mm Hg (07/01/22 10:13 AM) Respiratory Rate [16-30 br/min] 18 br/min (07/01/22 2:22 PM) 18 br/min (07/01/22 12:19 PM) 18 br/min (07/01/22 12:08 PM) Temperature [96.8-100.4 DegF] 98.1 DegF (07/01/22 7:33 AM) 98.1 DegF (07/01/22 5:10 AM) 98.3 DegF (07/01/22 3:16 AM) Liters per Minute 2 L/min (07/01/22 2:22 PM) 2 L/min (07/01/22 12:08 PM) 2 L/min (07/01/22 10:13 AM) Mode of Delivery (Oxygen) Nasal cannula (07/01/22 2:22 PM) Nasal cannula (07/01/22 12:08 PM) Nasal cannula (07/01/22 10:13 AM) Blood pressure sites Arm, right (07/01/22 2:22 PM) Arm, right (07/01/22 12:08 PM) Arm, right (07/01/22 10:13 AM) Temperature Route Oral (07/01/22 7:33 AM) Oral (07/01/22 5:10 AM) Oral (07/01/22 3:16 AM) Dry Weight 62 kg (07/01/22 5:10 AM) 62 kg (07/01/22 3:20 AM) 62 kg (07/01/22 3:16 AM) Weight Obtained Via Patient/family stated (07/01/22 3:16 AM) Social History Social History Type Response Tobacco Use: 4 or less cigar ettes(less than 1/4 pack)/day in last 30 days. Sex
--- OUTSIDE RECORDS SUMMARY | 2023-08-15 20:29 | XMS_ITS | Continuity of Care Document ---
Author Name Unknown Organization [facility] Address [address] [place] [address]- Care Team Providers Care Square Dance Caller Name Role Phone Jose LEE MD, Jorge Tsang Primary Care Physician Encounter [facility] [place] [place] Date(s): 10/18/22 - 11/17/22 [facility] [address] [place] [id number] Allergies, Adverse Reactions, Alerts Substance Reaction Severity Status naproxen lesions on lips Active Toradol Morphine allergy Metaxalone Naproxen Cephalexin allergy hives Persistent Mild Active Keflex 1 rash Active Skelaxin H/O: migraine Active 1tolerates pip/tazo 11/17 Immunizations Given and Recorded Vaccine Date Status Refusal Reason [id number] 12y+ bivalent booster vax 08/23/22 Recorded SARS-CoV-2 [...] 0 Refills, Maintenance, 07/16/22 12:59:00 EDT, Tablet, [facility]/pharmacy #[id number], Partial fill upon patient request [...] fractures of ribs Confirmed 01/06/11 Active Old [place] (myocardial infarction) X 3 Confirmed Active PVD [...] Care Nurse Name: Glo Camarena RN Position: [facility] RN Member Role: Primary Care Nurse Name: Fatimah Bennett RN Position: [facility] RN Member Role: Primary Care Nurse Name: Mariely Hardy RN Position: [facility] RN Member Role: Primary Care Nurse Name: Marleen Uriarte RN Position: [facility] RN Member Role: Primary Care Nurse Name: Sydney Zelaya Position: [facility] PCO OFFICE STAFF Member Role: Lifetime Consulting Physician Name: Judd Barahona RN Position: [facility] RN Member Role: Primary Care Nurse Name: Mag Harry RN Position: [facility] RN Member Role: Primary Care Nurse Name: An Blount RN Position: [facility] RN Supv Member Role: Primary Care Nurse Name: Marianna Ng RN Position: [facility] RN Member Role: Primary Care Nurse Name: Avani Odell RN Position: [facility] RN Member Role: Primary Care Nurse Name: Elizabeth Noriega RN Position: [facility] RN Member Role: Primary Care Nurse Name: Ruben Bello RN Position: [facility] RN Member Role: Primary Care Nurse Name: Zoë Thompson RN Position: [facility] RN Member Role: Primary Care Nurse Name: Araceli Simon RN Position: [facility] RN Member Role: Primary Care Nurse Name: Jorge Garcia III, MD Position: [facility] Ambulatory (view) Member Role: PCP Address: Address: [address] [place] [id number] Name: Misty Nguyen RN Position: [facility] RN Member Role: Primary Care Nurse Name: Sarwat Aj RN Position: [facility] RN Member Role: Primary Care Nurse Name: Cassi Batista RN Position: [facility] RN Member Role: Primary Care Nurse Name: Daija Huitron RN Position: [facility] RN Member Role: Primary Care Nurse Name: Ellis Mayfield RN Position: [facility] RN Member Role: Primary Care Nurse Name: Ayah Robison RN Position: [facility] RN Member Role: Primary Care Nurse Name: Kirstin Enriquez RN Position: [facility] RN Member Role: Primary Care Nurse Name: Jina Smalls RN Position: [facility] RN Member Role: Primary Care Nurse Name: Laura Clements RN Position: [facility] RN Member Role: Primary Care Nurse Name: Colette Syed RN Position: [facility] RN Member Role: Primary Care Nurse Name: Muriel Daley RN Position: [facility] RN Supv Member Role: Primary Care Nurse Name: Darlyn Alvarez RN Position: [facility] RN Member Role: Primary Care Nurse Name: Maribell Mejias RN Position: [facility] RN Member Role: Primary Care Nurse Name: Rachna Renteria RN Position: [facility] RN Member Role: Primary Care Nurse Name: Zohreh Pink RN Position: [facility] RN Member Role: Primary Care Nurse Name: Sophie Berrios RN Position: [facility] RN Member Role: Primary Care Nurse Name: Grisel Mcgowan RN Position: [facility] RN Member Role: Primary Care Nurse Name: Nasra Smith RN Position: [facility] RN Member Role: Primary Care Nurse Name: Cindy Grullon RN Position: [facility] RN Supv Member Role: Primary Care Nurse Name: Silas Knox RN Position: [facility] RN Member Role: Primary Care Nurse Name: Elham Melgar RN Position: [facility] RN Member Role: Primary Care Nurse Name: Elham Lee RN Position: [facility] PCO RN Member Role: Primary Care Nurse Name: Dariana Mariee RN Position: [facility] RN Member Role: Primary Care Nurse Name: Ana María Cat RN Position: [facility] RN Member Role: Primary Care Nurse Name: Flor Holley Position: [facility] RN Member Role: Primary Care Nurse Name: Bret Aguirre RN Position: [facility] RN Member Role: Primary Care Nurse Name: Ghazal Moreno Position: [facility] RN Member Role: Primary Care Nurse Name: Audra Martinez RN Position: [facility] RN Member Role: Primary Care Nurse Name: Shahbaz Bobo RN Position: [facility] RN Member Role: Primary Care Nurse Name: Jennifer Yin LPN Position: [facility] RN Member Role: Primary Care Nurse Name: Alina Arce RN Position: [facility] RN Member Role: Primary Care Nurse Name: Marcelo Schneider RN Position: [facility] ED RN W/OE and Tasks Member Role: Primary Care Nurse Name: Radha Masterson RN Position: [facility] RN Member Role: Primary Care Nurse Name: Amy Larios RN Position: [facility] RN Member Role: Primary Care Nurse Name: Indira Lindsey RN Position: [facility] SN RN Member Role: Primary Care Nurse Name: Rosa Elena Pope RN Position: [facility] RN Member Role: Primary Care Nurse Name: Florentino Garcia RN Position: [facility] RN Member Role: Primary Care Nurse Name: Cristel Moreno RN Position: [facility] SN RN Member Role: Primary Care Nurse Name: Rosa Elena De León RN Position: [facility] Feed Handler Member Role: Primary Care Nurse Name: Tulio Pina RN Position: [facility] RN Member Role: Primary Care Nurse Name: Maximiliano Claros RN Position: [facility] RN Member Role: Primary Care Nurse Name: Narda Barnes RN Position: [facility] RN Member Role: Primary Care Nurse Name: Zoë Cisse RN Position: [facility] RN Member Role: Primary Care Nurse Name: Pat Bowers RN Position: [facility] RN Member Role: Primary Care Nurse Name: Ruy Salcido RN Position: [facility] RN Member Role: Primary Care Nurse Name: Tayler Cabello RN Position: [facility] RN Member Role: Primary Care Nurse Name: Hilaria Aparicio RN Position: [facility] RN Member Role: Primary Care Nurse Name: Carly Rosado RN Position: [facility] RN Neil Member Role: Primary Care Nurse Name: Sydney Rosado RN Position: [facility] RN Member Role: Primary Care Nurse Name: Uriel Dumont Position: [facility] RN Member Role: Primary Care Nurse Name: Selene Vazquez RN Position: [facility] RN Member Role: Primary Care Nurse Name: Dariana Becerra RN Position: [facility] RN Member Role: Primary Care Nurse Name: Leyla Verma LPN Position: [facility] RN Member Role: Primary Care Nurse Name: Rody Mays RN Position: [facility] RN Member Role: Primary Care Nurse Name: Marielos Mixon RN Position: [facility] RN Member Role: Primary Care Nurse Name: Radha Flores RN Position: [facility] RN Member Role: Primary Care Nurse Name: Rose Kyle RN Position: [facility] Feed Handler Member Role: Primary Care Nurse Name: Aimee Salamanca Position: [facility] RN Member Role: Primary Care Nurse Name: Jacobo Caceres Position: [facility] RN Member Role: Primary Care Nurse Care Team Related Persons Name: STEVENSON HAMM Address: home [address] [address] Name: MELINA VARMA Address: [place] [address] Name: GARRY VARMA Address: home [address] [address] Name: BRIEN LANCASTER Address: home [address] [place] [id number]
--- OUTSIDE RECORDS SUMMARY | 2023-08-15 20:29 | XMS_ITS | Continuity of Care Document ---
Author Name Unknown Organization [facility] Address [address] [place] [address]- Care Team Providers Care Loan Processor Name Role Phone Jose LEE MD, Jorge Tsang Primary Care Physician Encounter [facility] [place] Date(s): 09/02/22 - 10/02/22 [facility] [address] [place] [id number] Allergies, Adverse Reactions, Alerts Substance Reaction Severity [...] tablet = 2 mg, By Mouth, Every 12 hours, PRN as needed for pain, for 3 days, # 6 tablet, 0 Refills, Acute 10/05/22 11:49:00 EST, 10/02/22 11:49:00 EDT, Tablet, Partial fill upon patient request if the prescription is for a schedule II opioid drug. Start Date: 10/02/22 Stop Date: 10/05/22 Status: Ordered docusate sodium 100 mg oral [...] 30 days. Sex Patient Care team information Personnel Name: Jose LEE MD, Jorge Tsang Address: Address: [address] [place] [id number]
--- OUTSIDE RECORDS SUMMARY | 2023-08-15 20:29 | XMS_ITS | Continuity of Care Document ---
Author Name Unknown Organization [facility] ter Address [address] [place] [id number] Care Team Providers Care Double Cutter Name Role Phone Jorge Garcia III, MD Primary Care Physician Encounter [facility] Date(s): 04/20/23 - 04/21/[address] [id number]- Encounter Diagnosis Acute exacerbation of chronic obstructive pulmonary disease (COPD)(Final) - 04/20/23 Discharge Disposition: A-D/C Home Attending Physician: Anjana Umaña MD Admitting Physician: Anjana Umaña MD Referring Physician: Not on Staff, Referring MD Allergies, Adverse Reactions, Alerts Substance Reaction Severity Status naproxen lesions on lips Active Toradol Morphine allergy Metaxalone Naproxen Cephalexin allergy hives Persistent Mild Active Keflex 1 rash Active Skelaxin H/O: migraine Active 1tolerates pip/tazo 11/17 Immunizations Given and Recorded Vaccine Date Status Refusal Reason [id number] 12y+ bivalent booster vax 08/23/22 Recorded SARS-CoV-2 [...] drug. Start Date: 07/02/22 Status: Ordered azithromycin 500 mg oral tablet = 500 mg, By Mouth, Once, Please take one tablet on 04/22 to complete course., # 1 tablet, 0 Refills, Soft Stop, 04/21/23 12:02:00 EDT, Tablet, [facility], Partial fill upon patient request if the prescription is for a schedule II opioid... Start Date: 04/21/23 Status: Ordered dicyclomine 10 mg oral capsule [...] opioid drug. Start Date: 04/20/23 Status: Ordered gabapentin 300 mg oral capsule 600 mg, Capsule, By Mouth, 04/21/23 9:00:00 EDT Start Date: 04/21/23 Stop Date: 04/21/23 Status: Completed gabapentin 300 mg oral capsule [...] Mouth, Daily Start Date: 07/02/22 Status: Ordered lisinopril 5 mg oral tablet 2.5 mg, Tablet, By Mouth, 04/21/23 9:00:00 EDT Start Date: 04/21/23 Stop Date: 04/21/23 Status: Completed loperamide 2 mg oral capsule [...] release 25 mg, XL Tablet, By Mouth, 04/21/23 9:00:00 EDT Start Date: 04/21/23 Stop Date: 04/21/23 Status: Completed Metoprolol Succinate ER 25 mg [...] Daily Start Date: 07/02/22 Status: Ordered predniSONE 20 mg oral tablet 2 tablet = 40 mg, By Mouth, Once, Please take 40mg (2 tablets) for 3 days ending on 04/24., # 2 tablet, 0 Refills, Soft Stop, 04/21/23 12:03:00 EDT, Tablet, [facility], Partial fill upon patient request if the prescription is for a sched... Start Date: 04/21/23 Status: Ordered Robitussin DM Liquid 5 mL, [...] Active Underweight Confirmed Active 1Cardiac stents 1995 Results Orders for Microbiology Reports Name Date Blood Culture 04/20/23 Blood Culture #2 04/20/23 Microbiology Reports TEST:Blood Culture STATUS:Unauthenticated BODY SITE: SOURCE:Blood COLLECTED DATE/TIME:04/20/23 11:30 AM Blood Culture SPECIMEN DESCRIPTION : BLOOD L HAND SPECIAL REQUESTS : NONE CULTURE : NO GROWTH AFTER 24 HOURS REPORT STATUS : PRELIMINARY REPORT TEST:Blood Culture, Second Order STATUS:Unauthenticated BODY SITE: SOURCE:Blood COLLECTED DATE/TIME:04/20/23 5:02 AM Blood Culture, Second Order SPECIMEN DESCRIPTION : BLOOD NONE SPECIAL REQUESTS : NONE CULTURE : NO GROWTH AFTER 24 HOURS REPORT STATUS : PRELIMINARY REPORT Radiology Reports * Exam Date Time Procedure Performing Provider Status 04/20/23 9:[address] Angio Chest Brianna Hines; Christina h (Verified) Notes: (CT Angio Chest) Reason For Exam: PE suspected, Intermediate prob, positive D-dimer,;Other: RESULT: CT Angio Chest EXAMINATION: CT Angio Chest INDICATION: Hx of Present Illness: Increasing SOB x1hr. Per roommate O2 was 78% on 3L @baseline. 9 10 abd pain also, dull and sharp. Has PICC line; Reason: Other:; PE suspected, Intermediate prob, positive D-dimer,; Clinical Question(s): Pulmonary Embolism; Order Comment: TECHNIQUE: [...] used to optimize exposure parameters. CTDIvol Body: 4.22 mGy, DLP Body: 372 mGy*cm. COMPARISONS: 01/15/2023 09/15/2022 10/31/2021 ANGIOGRAPHIC FINDINGS: No pulmonary embolism to the proximal and mid segmental level. Enlarged main pulmonary artery at 37mm. No acute aortic abnormality seen on this study performed without cardiac gating. Mild to moderate eccentric atherosclerosis. Mild ectasia of the ascending aorta. Common variant of shared origin of the right brachiocephalic and left common carotid. NON-ANGIOGRAPHIC FINDINGS: Relays Draftsperson View Findings, Lines and Tubes: Partially seen vascular access catheter terminating in the low SVC. Trachea and Airways: Bronchial wall thickening in the lower lungs, left greater than right. Lungs and Pleura: Moderate motion artifact. Severe pulmonary emphysema. Area of groundglass seen medially in the left lung as series 705 image 29 which is unchanged. This measures approximately 3.0 x1.6 cm. Calcified granuloma in the right upper lung. 2 mm nodule in the right lung laterally, upper lobe, series 705 image 39, unchanged and also likely a granuloma. Partially seen 3 mm nodule at the right lung base of series 705 image 84. Lung bases are not completely included.. Trace bilateral pleural fluid. Mediastinum and sivan: Subcentimeter thyroid nodules which do not meet criteria for further workup and are unchanged. No mediastinal or hilar lymphadenopathy. Mildly patulous esophagus. Heart: Heart is partially visualized. Heart is normal in size. No pericardial effusion. Severe coronary artery atherosclerosis. Chest Wall Soft Tissues: Imaged area shows no acute abnormality. Small axillary lymph nodes. Diaphragm and upper abdomen: Very limited images show a small fat-containing right posterior diaphragmatic hernia. Bones: No acute change from prior exam. Osteopenic bones. Deformity of the medial right clavicle. Severe degenerative changes at the right shoulder joint are partially seen. There is healed deformityof previous right posterior rib fractures with fixation. Partially seen compression deformity at the lower thoracic spine. IMPRESSION: No evidence of pulmonary embolism. Bronchial wall thickening seen in the lower lungs. This can be seen with bronchitis/airway infection or inflammation. Up to severe degree of emphysema. Enlarged pulmonary arteries. This can be seen in underlying pulmonary hypertension. There is a groundglass area in the left upper lung which is persisting from previous exam of December 2022, as well as exams dating back to October 2021. 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 WSN: [id number] Ordering Physician: Lorie Burton Dictated By: Lexy Perdomo MD Dictated Date/Time: 04/20/23 9:53 am Reviewed By: Lexy Perdomo MD Signed By: Lexy Perdomo MD Signed Date/Time: 04/20/23 9:53 am Transcribed By: BERENICE Transcribed Date/Time: 04/20/23 9:43 am * Exam Date Time Procedure Performing Provider Status 04/20/23 8:09 AM US Doppler Ext Lower Venous Left Gemma Renee; Luis M (Verified) Notes: (US Doppler Ext Lower Venous Left) Reason For Exam: Pain in limb;Other: RESULT: US Doppler Ext Lower Venous Left US Doppler Ext Lower Venous Left Hx of Present Illness: Increasing SOB x1hr. Per roommate O2 was 78% on 3L @baseline. 9 10 abd pain also, dull and sharp. Has PICC line; Reason: Other:; Pain in limb; Clinical Question(s): Thrombus History of deep venous thrombosis. Recently stopped anticoagulation therapy. Now with shortness of breath. Chest pain. Worsening swelling of left lower extremity. COMPARISON: 08/09/2022 IMAGING TECHNIQUE: Ultrasound of the veins from the groin through the calf was performed using grayscale, color, and spectral Doppler ultrasound assessing for complete compressibility and normal flowcharacteristics. FINDINGS: Common femoral vein: Patent. No thrombosis. Femoral vein: There is abnormal appearance of most of the length of the femoral vein. Images of small diameter, noncompressible, and has decreased blood flow within it. This is the same distribution of thrombus which has been present on examinations dating back to at least 07/17/2022 The small diameter indicates that there is a chronic component. Popliteal vein: Patent. No thrombosis. Gastrocnemius veins: The visualized portions are patent without evidence of thrombosis. Peroneal veins: The visualized portions are patent without evidence of thrombosis. Posterior tibial veins: The visualized portions are patent without evidence of thrombosis. Contralateral common femoral vein: Patent. No thrombosis. OTHER FINDINGS: No significant other abnormality. IMPRESSION: 1. 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 The small vein size indicates a chronic component. It is not possible to determine if this is all chronic or represent some component of acute thrombus superimposed on chronic change. 2. No deep venous thrombosis noted in any new location in the left lower extremity. WSN: [id number] Ordering Physician: Azra Singh Dictated By: Giacomo España MD Dictated Date/Time: 04/20/23 8:29 am Reviewed By: Giacomo España MD Signed By: Giacomo España MD Signed Date/Time: 04/20/23 8:29 am Transcribed By: BERENICE Transcribed Date/Time: 04/20/23 8:16 am * Exam Date Time Procedure Performing Provider Status 04/20/23 5:38 AM Chest Portable Joey Schaefer (Ve rified) Notes: (Chest Portable) Reason For Exam: Shortness of Breath RESULT: Chest Portable AP upright portable chest dated April 20, 2023 at 0528 hours. Comparison films are from March 21, 2023. HISTORY: Pain and shortness of breath. FINDINGS: The cardiac silhouette is within normal limits for size. Central pulmonary vascular engorgement is demonstrated. No airspace infiltrate or pleural effusion is identified. There are healed right-sided rib fractures with fixation plates in place. IMPRESSION: Volume overload pattern. Examination [id number]. Thank you for allowing me to participate in the care of this patient. WSN: [id number] Ordering Physician: Azra Singh Dictated By: Jeff Rosa MD Dictated Date/Time: 04/20/23 8:10 am Reviewed By: Jeff Rosa MD Signed By: Jeff Rosa MD Signed Date/Time: 04/20/23 8:10 am Transcribed By: BERENICE Transcribed Date/Time: 04/20/23 8:09 am Vital Signs Most recent to oldest [Reference Range]: 1 2 3 Height 183 cm (04/21/23 10:57 AM) 183 cm (04/21/23 4:18 AM) 183 cm (04/20/23 10:03 PM) Weight 66.8 kg (04/20/23 4:31 PM) Oxygen Saturation [94-100 %] 96 % (04/21/23 10:57 AM) 96 % (04/21/23 4:18 AM) 98 % (04/20/23 10:03 PM) Pulse Rate [55-90 bpm] 59 bpm (04/21/23 10:57 AM) 60 bpm (04/21/23 10:45 AM) 71 bpm (04/21/23 4:18 AM) Body Mass Index [18.5-24.99 kg/m2] 19.95 kg/m2 (04/20/23 4:31 PM) Blood Pressure [90-138/55-84 mm Hg] 140/70mm Hg *H* (04/21/23 10:57 AM) 139/76mm Hg *H* (04/21/23 10:45 AM) 139/76mm Hg *H* (04/21/23 10:45 AM) Respiratory Rate [16-30 br/min] 17 br/min (04/21/23 10:57 AM) 16 br/min (04/21/23 10:45 AM) 20 br/min (04/21/23 4:18 AM) Temperature [96.8-100.4 DegF] 97.9 DegF (04/21/23 10:57 AM) 97.8 DegF (04/21/23 4:18 AM) 98.1 DegF (04/20/23 10:03 PM) Liters per Minute 3 L/min (04/21/23 10:57 AM) 3 L/min (04/21/23 4:18 AM) 3 L/min (04/20/23 10:03 PM) Mode of Delivery (Oxygen) Nasal cannula (04/21/23 10:57 AM) Nasal cannula (04/21/23 4:18 AM) Nasal cannula (04/20/23 10:03 PM) Blood pressure sites Arm, right (04/21/23 10:57 AM) Arm, right (04/21/23 4:18 AM) Arm, right (04/20/23 10:03 PM) Temperature Route Axillary (04/21/23 10:57 AM) Oral (04/21/23 4:18 AM) Oral (04/20/23 10:03 PM) Dry Weight 66.8 kg (04/20/23 4:31 PM) Social History Social History Type Response Tobacco Use: 4 or less cigar ettes(less than 1/4 pack)/day in last 30 days. Sex Admission evaluation note * Esvin AMAYA, Jayson: MODIFY, MODIFY, MODIFY, PERFORM, MODIFY, MODIFY Event Display: Admission Note Authored Date: Patient: ??ANT VARMA ? Age:??67 Years?Sex:??Male?:??1955?? Chief Complaint/Reason for Consultation Increasing SOB x1hr. Per roommate O2 was 78% on 3L @baseline. 9/10 abd pain also, dull and sharp. Has PICC line History of Present Illness This is a case of a 67-year-old gentleman with a past medical history of??recent MRSA bacteremia s/p 6 weeks of IV antibiotics who presented to [facility] with increased shortness of breath, tachypnea and wheezing. ??The patient also reports right shoulder pain and epigastric pain (hashistorically reported the same presenting complaints). ??Patient states that he has had worsening sh ortness of breath for the last 1 week which has been associated with a productive cough. ??He has noted increasing productive cough and shortness of breath leading to tachypnea which is why EMS was called on the day of 04/16 4 in the AM. ??He has been hospitalized in the past for exacerbation of COPD at [facility] and [facility]. ??The patient states that he currently smokes 8 cigarettes/day, and is estimated to have a total of 65-kfqr-sbpb history. ?? The patient presented to the emergency department with the following objective data: ? ??Normal white count (unremarkable differential count) and stable H&H ?Platelet count elevated at 681 (historically elevated since past) ?Hyponatremia noted at 149 ?Normal renal function at 16/0.6 ?Unremarkable troponin at 49 and 41 with respect to time; BNP of 711 ?CXR: Questionable evidence of volume overload ?US Doppler left lower extremity: Nonocclusive thrombus in the femoral vein ?CT angio chest: No evidence of pulmonary embolism; ground-glass area in the left upper lung concerning for adenocarcinoma ?? He has received the following interventions in the emergency department: ?Albuterol and ipratropium ??? 2X Dilaudid; oral 4 mg + 2 mg ?2X bag of LR (500 mL) ?? PLEASE AVOID USE OF DILAUDID (PO OR IV). Review of Systems Constitutional:??No weight loss, fever, chills, weakness or fatigue. Respiratory:??shortness of breath, cough or sputum production. Cardiovascular:??No [...] pain, back pain, joint pain or stiffness. Psychiatric:??No depression or anxiety. Objective Vital Signs?? Temperature: 98.4 DegF (04/20/23 14:13:00) Temperature Route: Oral (04/20/23 14:13:00) Pulse Rate: 75 bpm (04/20/23 14:13:00) Respiratory Rate: 21 br/min (04/20/23 14:13:00) Systolic Blood Pressure: 125 mm Hg (04/20/23 14:13:00) Diastolic Blood Pressure: 71 mm Hg (04/20/23 14:13:00) Blood pressure sites: Arm, right (04/20/23 14:13:00) Mean Arterial Pressure: 89 mm Hg (04/20/23 14:13:00) Pulse Pressure: 54 mm Hg (04/20/23 14:13:00) Oxygen Saturation: 97 % (04/20/23 14:13:00) Liters per Minute: 4 L/min (04/20/23 14:13:00) Mode of Delivery (Oxygen): Nasal cannula (04/20/23 14:13:00) FiO2: 40 % (04/20/23 07:08:00) Early Warning Score: 5 (04/20/23 14:14:31) ? Intake/Output? No Data Available ? Physical Exam General: Alert Mental Status: Oriented to person, place and time. Respiratory: End-expiratory wheezes heard in bibasilar bases. Cardiovascular: Heart sounds normal. No thrills. Regular rate and rhythm, no murmurs, rubs or gallops. Gastrointestinal: Abdomen soft, non-tender, non-distended. Normal bowel sounds.?? Musculoskeletal: No cyanosis Assessment/Plan This is a case of a 67-year-old gentleman with a past medical history of??recent MRSA bacteremia s/p 6 weeks of IV antibiotics who presented to [facility] with increased shortness of breath, tachypnea and wheezing. ?? Acute on Chronic Hypoxic Respiratory Failure COPD exacerbation Presents with severe shortness of breath??and tachypnea. Productive cough + shortness of breath on initial presentation; Transiently required BiPAP for increased work of breathing PFTs in 2019 at [facility] revealed the following patterns: FEV1/FVC: 42% pre-bronchodilator and 38% post-bronchodilator Has been hospitalized in the past with similar complaints; appears to be Gold Stage 4 COPD ?? Plan: - transition to PO prednisone tomorrow - Azithromycin for COPD exacerbation - DuoNebs as needed - Breo Ellipta + Spiriva - Maintain O2 saturations??between 88 and 92% - Smoking cessation counseling done ?Hypernatremia Sodium level is currently 149; Free water deficit: 0.5L ?? Plan: - daily BMP - administer 500ml of LR to make up for FWD ?? Right Shoulder Pain Patient says that he has been having longstanding??pain of the right shoulder without improvement (as per patient) with home analgesic regimen ?? Plan: - avoid opiates (dilaudid + morphine) - continue gabapentin, duloxetine ?? 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 No current concern that this is leading to acute presentation. ?? Plan: - outpatient oncology f/u ? Chronic Medical Conditions Hypertension (I10):??. Hyperlipidemia (E78.5):??. CAD (coronary artery disease) (I25.10):??. S/P right coronary artery (RCA) stents x 2 & left circumflex stent (Z95.5):??. PVD (peripheral vascular disease) (I73.9):? On ASA + metoprolol??+ lisinopril + isosorbide + atorvastatin ?? Depression with anxiety On duloxetine + mirtazapine ?? Chronic pain syndrome . Spinal stenosis DJD (degenerative joint disease) On gabapentin +??duloxetine ?? GERD (gastroesophageal reflux disease) On PPI ? Quality Measures: Code Status: Full code Diet: Regular DVT Prophylaxis: SC Enoxaparin ? PLEASE AVOID USE OF DILAUDID (PO OR IV). ?? Patient has been??seen and discussed with Dr. Leeroy Mcallister PGY1 Pager: [phone] Histories Past Medical History/Problem List Active Problems??(17) Anemia Anxiety CAD - Coronary artery disease Chronic low back pain COPD (chronic obstructive pulmonary disease) COPD exacerbation Deep vein thrombosis (DVT) of left lower extremity GERD (gastroesophageal reflux disease) HTN (hypertension) Hyperlipidemia Hyponatremia Metabolic alkalosis Multiple fractures of ribs Old [place] (myocardial infarction) X 3 PVD (peripheral vascular [...] mcg/inh inhalation powder)?2?puff(s)?Inhalation?Every 4 hours?as needed?as needed Aspirin (aspirin 81 mg oral capsule)?1?capsule?81?Milligram?By Mouth?Daily Atorvastatin (atorvastatin 80 mg oral tablet)?1?tab(s)?80?Milligram?By Mouth?Daily Bisacodyl (bisacodyl 10 mg rectal suppository)?1?suppository(ies)?10?Milligram?Rectal ly?Daily?as needed?for constipation Budesonide-Formoterol (Symbicort 160mcg/4.5mcg Inhaler)?INHALE 2 PUFFS INTO THE LUNGS TWICE A DAY Collagenase Topical (Santyl 250 u/gm ointment)?1?lore?Topically?Daily?left lateral leg ulcer Dicyclomine (dicyclomine 10 mg oral capsule)?1?capsule?10?Milligram?By Mouth?4 times a day Docusate (docusate sodium 100 mg oral capsule)?1?capsule?100?Milligram?By Mouth?Daily?as needed?constipation Duloxetine?60?Milligram?By Mouth?2 times a day Gabapentin (gabapentin 300 mg oral capsule)?600?Milligram?2?capsule?By Mouth?3 times a day HydrOXYzine (hydrOXYzine hydrochloride 10 mg oral tablet)?1?tab(s)?10?Milligram?By Mouth?3 times a day?as needed?Anxiety Isosorbide Mononitrate (isosorbide mononitrate 30 mg oral tablet, extended release)?30?Milligram?1?tablet?By Mouth?Daily in AM Lisinopril (lisinopril 2.5 mg oral tablet)?TAKE 1 TABLET BY MOUTH EVERY DAY Melatonin?10?Milligram?By Mouth?Daily at bedtime?as needed?as needed for sleep Metoprolol (Metoprolol Succinate ER 25 mg oral tablet, extended release)?1?tab(s)?25?Milligram?By Mouth?Daily Midodrine (midodrine 5 mg oral tablet)?10?Milligram?2?tablet?By Mouth?3 times a day?Hold for SBP>110 Mirtazapine (mirtazapine 15 mg oral tablet)?0.5?tab(s)?7.5?Milligram?By Mouth?Daily at bedtime Pantoprazole (pantoprazole 40 mg oral delayed release tablet)?1?tab(s)?40?Milligram?By Mouth?Daily PredniSONE (predniSONE 5 mg oral tablet)?3?tab(s)?15?Milligram?By Mouth?Daily Senna (Senna 8.6 mg oral tablet)?8.6?Milligram?1?tab(s)?By Mouth?Daily at bedtime Thiamine (Vitamin B1 100 mg oral tablet)?100?Milligram?1?tablet?By Mouth?Daily umeclidinium (Incruse Ellipta 62.5 mcg/inh inhalation powder)?1?puff(s)?Inhalation?Every 24 hours ? Inpatient Medications Medications (20) Active SCHEDULED: (11) Aspirin 81 mg Chew Tablet (aspirin 81 mg oral tablet, chewable) ??81 mg, By Mouth, Daily Atorvastatin 80 mg Tablet (atorvastatin 80 mg oral tablet) ??80 mg, By Mouth, Daily Dicyclomine 10 mg Capsule (dicyclomine 10 mg oral capsule) ??10 mg 1 capsule, By Mouth, 4 times a day Duloxetine 60 mg Capsule (Cymbalta Capsule) ??60 mg, By Mouth, 2 times a day Gabapentin 300 mg Capsule (gabapentin 300 mg oral capsule) ??600 mg, By Mouth, 3 times a day Isosorbide Mononitrate 30 mg ER Tablet (isosorbide mononitrate 30 mg oral tablet, extended release)??30 mg, By Mouth, Daily in AM Lisinopril 5 mg Tablet (lisinopril 5 mg oral tablet) ??2.5 mg, By Mouth, Daily Metoprolol 25mg Tablet (metoprolol 25 mg oral tablet) ??25 mg, By Mouth, Daily NaCl 0.9% Flush 3ml (NaCL 0.9% Flush) ??3 mL, IV Push, Every 8 hours Pantoprazole 40 mg EC Tablet (pantoprazole 40 mg oral delayed release tablet) ??40 mg, By Mouth, Daily Thiamine 100 mg Tablet (Vitamin B1 100 mg oral tablet) ??100 mg, By Mouth, Daily CONTINUOUS: (0) PRN: (9) Acetaminophen 325 mg Tablet (Acetaminophen Tablet) ??650 [...] Recent Labs BLOOD COUNT & DIFF WBC 10.6 k/mm3 ()?? 04/20/2023 05:02 RBC 3.30 m/mm3 (Low)?? 04/20/2023 05:02 Hgb 8.8 Gm/dL (Low)?? 04/20/2023 05:02 Hct 31.3 % (Low)?? 04/20/2023 05:02 MCV 94.8 femtoliters (High)?? 04/20/2023 05:02 MCH 26.7 pg (Low)?? 04/20/2023 05:02 MCHC 28.1 g/dL (Low)?? 04/20/2023 05:02 Platelet Count 681 k/mm3 (High)?? 04/20/2023 05:02 RDW-SD 65.8 femtoliters (High)?? 04/20/2023 05:02 MPV 9.1 femtoliters (Low)?? 04/20/2023 05:02 Nucleated RBC (Automated) 0.0 #/100 WBC'S ()?? 04/20/2023 05:02 Abs. NRBC 0.0 k/mm3 ()?? 04/20/2023 05:02 Abs. Neut 7.3 k/mm3 (High)?? 04/20/2023 05:02 Abs. Lymph 1.3 k/mm3 ()?? 04/20/2023 05:02 Abs. Carlisle 1.5 k/mm3 (High)?? 04/20/2023 05:02 Abs. Eo 0.1 k/mm3 ()?? 04/20/2023 05:02 Abs. Baso 0.1 k/mm3 ()?? 04/20/2023 05:02 Neut % 68.8 % ()?? 04/20/2023 05:02 Lymph % 12.5 % (Low)?? 04/20/2023 05:02 [place] % 14.1 % (High)?? 04/20/2023 05:02 Eos % 1.3 % ()?? 04/20/2023 05:02 Baso % 0.8 % ()?? 04/20/2023 05:02 Imm Gran 2.5 % ()?? 04/20/2023 05:02 Abs. Imm Gran 0.3 k/mm3 ()?? 04/20/2023 05:02 ?? CARDIAC Nt-Probnp 711 pg/mL (High)?? 04/20/2023 05:02 High Sensitivity Troponin (HSTnT) 41 ng/L (High)?? 04/20/2023 07:00 ?? CHEM GENERAL Sodium 149 mmol/L (High)?? 04/20/2023 05:02 Potassium 4.7 mmol/L ()?? 04/20/2023 05:02 Chloride 103 mmol/L ()?? 04/20/2023 05:02 Bicarbonate Level 38 mmol/L (High)?? 04/20/2023 05:02 Anion Gap 8 ()?? 04/20/2023 05:02 Glucose Level 144 mg/dL (High)?? 04/20/2023 05:02 BUN 16 mg/dL ()?? 04/20/2023 05:02 Creatinine-Blood 0.6 mg/dL (Low)?? 04/20/2023 05:02 Estimated GFR Creatinine 109 ML/MIN/1.73 M2 ()?? 04/20/2023 05:02 Calcium 9.1 mg/dL ()?? 04/20/2023 05:02 Protein, Total 6.4 Gm/dL ()?? 04/20/2023 05:02 Albumin 3.6 Gm/dL ()?? 04/20/2023 05:02 AG Ratio 1.3 ()?? 04/20/2023 05:02 Alkaline Phosphatase 143 units/L (High)?? 04/20/2023 05:02 Lipase 35 units/L ()?? 04/20/2023 05:02 AST (SGOT) 27 units/L ()?? 04/20/2023 05:02 ALT (SGPT) 17 units/L ()?? 04/20/2023 05:02 Bilirubin, Total <0.2 mg/dL ()?? 04/20/2023 05:02 ?? COAG INR 1.0 ()?? 04/20/2023 06:34 Protime (PT) 10.9 seconds ()?? 04/20/2023 06:34 D-Dimer 3.29 mg/L FEU (High)?? 04/20/2023 06:34 ?? MISC. CHEMISTRY Hold Green Top SPECIMEN DISCARDED AFTER 1 WEEK ()?? 04/20/2023 06:34 ?? VIROLOGY COVID-19 by RT-PCR NEGATIVE ()?? 04/20/2023 08:45 ? Microbiology ?? COVID-19 (Novel Coronavirus), Rapid PCR?? Completed?? Source: Nasal Body Site: Nose Collected Dt/Tm: 04/20/2023 05:04 Last Updated Dt/Tm: 04/20/2023 10:07 ? * Anjana Umaña MD: PERFORM Event Display: Admission Note Authored Date: Attending Attestation:??I have seen and evaluated this patient. ??I have discussed the case and itsmanagement with the resident and agree with the findings and plan as documented in the resident???snote. ?? Date of service: 04/20/23 EKG study * Event Display: ECG 12-Lead Authored Date: Please click on pdf link to open report * Event Display: ECG 12-Lead Authored Date: Ventricular Rate: 77 BPM Atrial Rate: 77 BPM P-R Interval: 140 ms QRS Duration: 98 ms Q-T Interval: 368 ms QTC Calculation(Bazett): 416 ms P [place]: 78 degrees R [place]: -29 degrees T [place]: 74 degrees Normal sinus rhythm Incomplete right bundle branch block ST and T wave abnormality, consider anterior ischemia Abnormal ECG When compared with ECG of 21-MAR-2023 09:26, Non-specific change in ST segment in Anterior leads T wave inversion now evident in Anterior leads Confirmed by ASHLEY DOMÍNGUEZ MD ([id number]) on 04/20/2023 7:45:19 PM Crawford: ASHLEY DOMÍNGUEZ MD Cardiology * Event Display: Cardiac Rhythm Strips Authored Date: Hospital Progress note * Roxane Vargas: PERFORM, SIGN, VERIFY Event Display: Progress Note Hospital Authored Date: Patient: ANT VARMA Age: 67 years Sex: Male : 1955 Associated Diagnoses: None Author: Roxane Vargas Findings Narrative/Incidental pt requesting IV pain medication. given one time doses of medication. See biophysical and cis for more information. Safety checks done. . Discharge Information Pulmonary Rehab Discharge : Pulmonary Rehab Discharge Status 04/20/2023 7:08 EDT CPAP/BiPAP Mask Type Full CPAP/BiPAP Mask Size Small Note * Kaisa Lund RN: PERFORM Event Display: Discharge/Transfer Note Hospital Authored Date: Nursing Discharge Note Entered On: 04/21/2023 14:33 EDT Performed On: 04/21/2023 14:32 EDT by Kasia Lund RN Nursing Discharge Note 2 Discharge Time : 04/21/2023 14:32 EDT Discharge Level of Care at Discharge : Home/Alf/Foster Care Patient Left Unit Via : Ambulance Patient Accompanied Off Unit with : Responsible adult DC Instructions Provided & Signed by Pt : Yes Patient Understands D/C Instructions : Yes Patient Instructions Discharge Signed : Yes Did Pt have Specialty Bed or Wound Vac : No Kasia Lund RN - 04/21/2023 14:32 EDT * Jayson Mcallister MD: PERFORM, MODIFY Event Display: Discharge/Transfer Note Hospital Authored Date: Patient: ??ANT VARMA ? Age:??67 Years?Sex:??Male?:??1955?? Patient Information Discharge Location: Primary Care Physician: Jorge Garcia III, MD Admit Date/Time: 04/20/23 10:48 Discharge Disposition Discharge Disposition: Home: No Services Discharge Diagnosis Acute exacerbation of chronic obstructive pulmonary disease (COPD) (J44.1) ?? _ Discharge Medications Acetaminophen (acetaminophen 325 mg oral tablet)?650?Milligram?2?tablet?By Mouth?Every 4 hours?as needed?as needed for fever Albuterol (albuterol 90 mcg/inh inhalation powder)?2?puff(s)?Inhalation?Every 4 hours?as needed?as needed Albuterol (albuterol 0.042% inhalation solution)?3?Milliliter?1.25?Milligram?Neb?Every 4 hours Aspirin (aspirin 81 mg oral capsule)?1?capsule?81?Milligram?By Mouth?Daily Atorvastatin (atorvastatin 80 mg oral tablet)?1?tab(s)?80?Milligram?By Mouth?Daily Azithromycin (azithromycin 500 mg oral tablet)?500?Milligram?By Mouth?Once?Please take one tablet on 04/22 to complete course. Budesonide-Formoterol (Symbicort 160mcg/4.5mcg Inhaler)?2?puff(s)?Inhalation?2 times a day [...] tablet)?10?Milligram?2?tablet?By Mouth?3 times a day?Hold for SBP>110 Pantoprazole (pantoprazole 40 mg oral delayed release tablet)?1?tab(s)?40?Milligram?By Mouth?Daily PredniSONE (predniSONE 20 mg oral tablet)?2?tab(s)?40?Milligram?By Mouth?Once?Please take 40mg (2 tablets) for 3 days ending on 04/24. Thiamine (Vitamin B1 100 mg oral tablet)?100?Milligram?1?tablet?By Mouth?Daily umeclidinium (Incruse Ellipta 62.5 mcg/inh inhalation powder)?1?puff(s)?Inhalation?Every 24 hours ?? Medications Started Prednisone (till 04/24) Azithromycin (till 04/22) Medications Discontinued - Doses Changed - Allergies Allergies ?(Active and Proposed Allergies Only) naproxen? (Severity: Unknown severity, Onset: Unknown) ?Reactions: lesions on lips Toradol? (Severity: Persistent Mild, Onset: Unknown) ?Reactions: hives, Cephalexin allergy, Naproxen, Metaxalone, Morphine allergy Keflex? (Severity: Unknown severity, Onset: Unknown) ?Reactions: rash ?Comments: tolerates pip/tazo 11/17 Skelaxin? (Severity: Unknown severity, Onset: Unknown) ?Reactions: H/O: migraine ? PCP Follow-Up/Heads-Up Please ensure the following: - optimization of medications - f/u with pulmonology - f/u with pain medicine specialist - please arrange outpatient consulation with oncology given concerning CT finding for adenocarcinoma - ensure compliance with medications - please encourage smoking cessation Hospital Course ??This is a case of a 67-year-old gentleman with a past medical history of??recent MRSA bacteremia s/p 6 weeks of IV antibiotics who presented to [facility] with increased shortness of breath, tachypnea and wheezing. ??The patient also reports right shoulder pain and epigastric pain (porras s historically reported the same presenting complaints). ??Patient states that he has had worseningshortness of breath for the last 1 week which has been associated with a productive cough. ??He hasnoted increasing productive cough and shortness of breath leading to tachypnea which is why EMS wascalled on the day of 04/16 4 in the AM. ??He has been hospitalized in the past for exacerbation of COPD at [facility] and [facility]. ??The patient states that he currently smokes 8 cigarettes/day, and is estimated to have a total of 42-[id number] history. ?CT angio chest: No evidence of pulmonary embolism; ground-glass area in the left upper lung concerning for adenocarcinoma ?? He received management with steroids (both IV and oral) + bronchodilators in addition to inhalers. He will be discharged on 04/21 on his home inhaler regimen. Objective Acute on Chronic Hypoxic Respiratory Failure COPD exacerbation Presents with severe shortness of breath??and tachypnea. Productive cough + shortness of breath on initial presentation; Transiently required BiPAP for increased work of breathing PFTs in 2019 at [facility] revealed the following patterns: FEV1/FVC: 42% pre-bronchodilator and 38% post-bronchodilator Has been hospitalized in the past with similar complaints; appears to be Gold Stage 4 COPD ?? Plan: - complete full course of prednisone ending on 04/24 - complete full course of azithromycin ending on 04/22 -??home inhaler regimen - encourage smoking cessation given patient is still actively smoking (8 cigarettes/day) -??outpatient pulmonology consultation given current smoking + mx of COPD (optimize inhalers) ?Hypernatremia Sodium level is currently 1141 -- from 149 on 04/20; Improvement after fluids given ?? Right Shoulder Pain Patient says that he has been having longstanding??pain of the right shoulder without improvement (as per patient) with home analgesic regimen ?? Plan: - avoid opiates (dilaudid + morphine) - continue gabapentin, duloxetine ?? 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 No current concern that this is leading to acute presentation. ?? Plan: - outpatient oncology f/u ? Vital Signs?? Temperature: 97.9 DegF (04/21/23 10:57:00) Temperature Route: Axillary (04/21/23 10:57:00) Pulse Rate: 59 bpm (04/21/23 10:57:00) Respiratory Rate: 17 br/min (04/21/23 10:57:00) Systolic Blood Pressure:??140 mm Hg??High (04/21/23 10:57:00) Diastolic Blood Pressure: 70 mm Hg (04/21/23 10:57:00) Blood pressure sites: Arm, right (04/21/23 10:57:00) Mean Arterial Pressure: 93 mm Hg (04/21/23 10:57:00) Pulse Pressure: 70 mm Hg (04/21/23 10:57:00) Oxygen Saturation: 96 % (04/21/23 10:57:00) Liters per Minute: 3 L/min (04/21/23 10:57:00) Mode of Delivery (Oxygen): Nasal cannula (04/21/23 10:57:00) Early Warning Score: 2 (04/21/23 11:01:15) ? . Physical Exam General: Alert Mental Status: Oriented to person, place and time. Respiratory: End-expiratory wheezes heard in bibasilar bases. Cardiovascular: Heart sounds normal. No thrills. Regular rate and rhythm, no murmurs, rubs or gallops. Gastrointestinal: Abdomen soft, non-tender, non-distended. Normal bowel sounds.?? Musculoskeletal: No cyanosis Pending Results Add On Lab Order ordered on 04/20/2023 Blood Culture ordered on 04/20/2023 Blood Culture #2 ordered on 04/20/2023 Osmolality Urine ordered on 04/20/2023 Sodium Urine ordered on 04/20/2023 Urinalysis w/hold for Urine Culture ordered on 04/20/2023 Follow-Up Appointments Added Follow Up ?Time Frame ?Comments Jose LEE MD, Jorge Tsang Patient Instructions Please ensure the following: - f/u with your PCP in 1 week - please ensure follow up with lung doctor (nailhead puncher) - please ensure that you follow up with your pain client experience specialist - you have been prescribed prednisone (steroid); please continue to take 40mg until 04/24 (3 more days from discharge) - you have been prescribed azithromycin -- please take for one more day till 04/22 - please attempt to quit smoking Results Discharge Labs BLOOD COUNT & DIFF WBC 7.8 k/mm3 ()?? 04/21/2023 03:05 RBC 3.18 m/mm3 (Low)?? 04/21/2023 03:05 Hgb 8.4 Gm/dL (Low)?? 04/21/2023 03:05 Hct 29.6 % (Low)?? 04/21/2023 03:05 MCV 93.1 femtoliters ()?? 04/21/2023 03:05 MCH 26.4 pg (Low)?? 04/21/2023 03:05 MCHC 28.4 g/dL (Low)?? 04/21/2023 03:05 Platelet Count 630 k/mm3 (High)?? 04/21/2023 03:05 RDW-SD 61.0 femtoliters (High)?? 04/21/2023 03:05 MPV 9.0 femtoliters (Low)?? 04/21/2023 03:05 Nucleated RBC (Automated) 0.0 #/100 WBC'S ()?? 04/21/2023 03:05 Abs. NRBC 0.0 k/mm3 ()?? 04/21/2023 03:05 Abs. Neut 7.3 k/mm3 (High)?? 04/20/2023 05:02 Abs. Lymph 1.3 k/mm3 ()?? 04/20/2023 05:02 Abs. Carlisle 1.5 k/mm3 (High)?? 04/20/2023 05:02 Abs. Eo 0.1 k/mm3 ()?? 04/20/2023 05:02 Abs. Baso 0.1 k/mm3 ()?? 04/20/2023 05:02 Neut % 68.8 % ()?? 04/20/2023 05:02 Lymph % 12.5 % (Low)?? 04/20/2023 05:02 Carlisle % 14.1 % (High)?? 04/20/2023 05:02 Eos % 1.3 % ()?? 04/20/2023 05:02 Baso % 0.8 % ()?? 04/20/2023 05:02 Imm Gran 2.5 % ()?? 04/20/2023 05:02 Abs. Imm Gran 0.3 k/mm3 ()?? 04/20/2023 05:02 ?? CARDIAC Nt-Probnp 711 pg/mL (High)?? 04/20/2023 05:02 High Sensitivity Troponin (HSTnT) 41 ng/L (High)?? 04/20/2023 07:00 ?? CHEM GENERAL Sodium 141 mmol/L ()?? 04/21/2023 03:05 Potassium 4.7 mmol/L ()?? 04/21/2023 03:05 Chloride 98 mmol/L ()?? 04/21/2023 03:05 Bicarbonate Level 38 mmol/L (High)?? 04/21/2023 03:05 Anion Gap 5 ()?? 04/21/2023 03:05 Glucose Level 123 mg/dL (High)?? 04/21/2023 03:05 BUN 17 mg/dL ()?? 04/21/2023 03:05 Creatinine-Blood 0.6 mg/dL (Low)?? 04/21/2023 03:05 Estimated GFR Creatinine 109 ML/MIN/1.73 M2 ()?? 04/21/2023 03:05 Calcium 9.0 mg/dL ()?? 04/21/2023 03:05 Protein, Total 6.4 Gm/dL ()?? 04/20/2023 05:02 Albumin 3.6 Gm/dL ()?? 04/20/2023 05:02 AG Ratio 1.3 ()?? 04/20/2023 05:02 Alkaline Phosphatase 143 units/L (High)?? 04/20/2023 05:02 Lipase 35 units/L ()?? 04/20/2023 05:02 AST (SGOT) 27 units/L ()?? 04/20/2023 05:02 ALT (SGPT) 17 units/L ()?? 04/20/2023 05:02 Bilirubin, Total <0.2 mg/dL ()?? 04/20/2023 05:02 ?? COAG INR 1.0 ()?? 04/20/2023 06:34 Protime (PT) 10.9 seconds ()?? 04/20/2023 06:34 D-Dimer 3.29 mg/L FEU (High)?? 04/20/2023 06:34 ? MISC. CHEMISTRY Hold Green Top SPECIMEN DISCARDED AFTER 1 WEEK ()?? 04/20/2023 06:34 ? URINE OTHER Est Creatinine Clearance 115.97 mL/min ()?? 04/20/2023 16:36 ? VIROLOGY COVID-19 by RT-PCR NEGATIVE ()?? 04/20/2023 08:45 ? Microbiology ?? COVID-19 (Novel Coronavirus), Rapid PCR?? Completed?? Source: Nasal Body Site: Nose Collected Dt/Tm: 04/20/2023 05:04 Last Updated Dt/Tm: 04/20/2023 10:07 ? 45??minutes spent on discharge * Kevon SHANNON, Kasia: PERFORM Event Display: Patient Education/Instruction Authored Date: [id number] Inpatient Adult Discharge Instructions [address] [address] Name: ANT VARMA : 1955 Visit: 04/20/2023 10:48:00 Current Date: 04/21/2023 13:30 Account: [id number] Inpatient Adult Discharge Instructions We would like [...] and their families. Surveys are administered by [employer] ?? If further treatment with your primary care physician or another doctor is recommended, it is important for you to keep the appointment. Call your primary care physician or return to the Emergency Department immediately if your condition worsens, fails to improve, or new symptoms develop. If you need to find a doctor, you can call [facility] [employer] for a referral at [phone] or toll free at [phone] or log in to [email or web address].. ?? You can view and manage your care through the patient portal or by using a health care lore of your choosing. [employer] is a website that allows you to securely view your medical information including your hospital discharge summary, office visit summaries, medications and follow-up visits. You can also request appointments, renew medications, and request access to your medical information using a health care lore of your choosing, or just ask a question. You can enroll at [email or web address] or register during your next office visit. You have been discharged from [facility], Patient Care Unit: S2. If you have any questions regarding these instructions after you leave, please call us and we will be happy to assist you. [facility] Your Care Team Attending Physician Leeroy AMAYA, Anjana Discharging Providers Esvin AMAYA, Jayson Reason for Your Visit Increasing SOB x1hr. Per roommate O2 was 78% on 3L @baseline. 9/10 abd pain also, dull and sharp. Has PICC line Tests Performed Below is a partial list of the tests performed during your hospitalization. You may have had other tests and procedures not included in this list. Please discuss all test results with your provider. Basic Metabolic Panel CBC CBC w/ Differential Comprehensive Metabolic Panel COVID-19 (Novel Coronavirus), Rapid PCR D Dimer High??Sensitivity??Troponin T HOLD GREEN TUBE INR Lipase ProBNP Troponin T, High Sensitivity CT Angio Chest US Doppler Ext Lower Venous Left XR Chest Portable Primary Care Provider Jorge Garcia III, MD Advance Directive . Discharge Vitals Temperature: 97.9 DegF Height: 183 cm Pulse Rate: 59 bpm Weight: 66.8 kg Respiratory Rate: 17 br/min Body Mass Index: 19.95 kg/m2 Systolic Blood Pressure:??140 mm Hg??High Body surface area: 1.84 Diastolic Blood Pressure: 70 mm Hg ?? Oxygen Saturation: 96 % ?? Studies Pending All tests and labs ordered during this hospital stay have been completed unless listed below. Please discuss all pending results with your provider listed above in these instructions. ?? Add On Lab Order Blood Culture Blood Culture #2 Osmolality Urine (Urine Osmolality) Sodium Urine Urinalysis w/hold for Urine Culture What to do next Instructions From Your Doctor Discharge Orders You Need to Schedule the Following Appointments Follow Up with??Jorge Garcia III, MD Where: [address] [place] [phone] Discharge Medications ANT VARMA :1955 Visit Date:04/20/2023 Medications: Please continue your medications until treatment is completed or stopped by your provider. Medications not listed below should be discontinued. Discuss any questions related to medications with your provider. What How Much When Instructions Next Dose New Azithromycin (azithromycin 500 mg oral tablet) 500 Milligram Oral Once Please take one tablet on to complete course. ?? Pickup at [facility] 3 Tomorrow morning at 9 am Changed Budesonide-Formoterol (Symbicort 160mcg/ 4.5mcg Inhaler) 2 puff(s) Inhalation Twice a day Tonight at 9 pm Changed Duloxetine (duloxetine 60 mg oral enteric coated capsule) 1 capsule Oral Twice a day Tonight at 9 pm Changed Lisinopril (lisinopril 2.5 mg oral tablet) 1 tab(s) Oral Daily Tomorrow morning at 9 am Changed PredniSONE (predniSONE 20 mg oral tablet) 2 tab(s) Oral Once Please take 40mg (2 tablets) for 3 days ending on . ?? Pickup at [facility] 3 Tonight at 9 pm Unchanged Acetaminophen (acetaminophen 325 mg oral tablet) 2 tab(s) Oral Every 4 hours as needed for as needed for fever as needed Unchanged Albuterol (albuterol 0.042% inhalation solution) 3 Milliliter Nebulized inhalation Every 4 hours as needed Unchanged Albuterol (albuterol 90 mcg/ inh inhalation powder) 2 puff(s) Inhalation Every 4 hours as needed for as needed as needed Unchanged Aspirin (aspirin 81 mg oral capsule) 1 capsule Oral Daily Tomorrow morning at 9 am Unchanged Atorvastatin (atorvastatin 80 mg oral tablet) 1 tab(s) Oral Daily Tomorrow morning at 9 am Unchanged Dicyclomine (dicyclomine 10 mg oral capsule) 1 capsule Oral 4 times a day tonight at 5 pm Unchanged Gabapentin (gabapentin 300 mg oral capsule) 2 capsule Oral 3 times a day this afternoon at 3 pm Unchanged Guaifenesin/ Dextromethorphan (Robitussin DM Liquid) 5 [...] 1 tab(s) Oral Twice a day tonight at 9 pm Unchanged Loperamide (loperamide 2 mg oral capsule) 1 capsule Oral Every 4 hours as needed for for loose stool as needed Unchanged Melatonin 10 Milligram Oral Daily at Bedtime as needed for as needed for sleep as needed Unchanged Metoprolol (Metoprolol Succinate ER 25 mg oral tablet, extended release) 1 tab(s) Oral Daily tomorrow morning at 9 am Unchanged Midodrine (midodrine 5 mg oral tablet) 2 tab(s) Oral 3 times a day Hold for SBP>110 ?? Tonight at 9 pm Unchanged Pantoprazole (pantoprazole 40 mg oral delayed release tablet) 1 tab(s) Oral Daily tomorrow morning at 9 am Unchanged Thiamine (Vitamin B1 100 mg oral tablet) 1 tab(s) Oral Daily Tomorrow morning at 9 am Unchanged umeclidinium (Incruse Ellipta 62.5 mcg/ inh inhalation powder) 1 puff(s) Inhalation Every 24 hours tomorrow morning at 9 am Pharmacy Information [facility] 3: [address], [place] [id number] [phone] Test Results Below is a partial list of the most recent Laboratory test results done prior to this discharge. You may have had other tests and procedures not included in this list. Please discuss all test resultswith your provider. Est Creatinine Clearance - 115.97 mL/min (04/20/2023) Basic Metabolic Panel (04/21/2023) ???Sodium - 141 mmol/L???Potassium - 4.7 mmol/L???Chloride - 98 mmol/L???Bicarbonate Level - 38 mmol/L???Anion Gap - 5???Glucose Level - 123 mg/dL???BUN - 17 mg/dL???Creatinine-Blood - 0.6 mg/dL???Estimated GFR Creatinine - 109 ML/MIN/1.73 M2???Calcium - 9.0 mg/dL CBC (04/21/2023) ???WBC - 7.8 k/mm3???RBC - 3.18 m/mm3???Hgb - 8.4 Gm/dL???Hct - 29.6 %???MCV - 93.1 femtoliters???MCH - 26.4 pg???MCHC - 28.4 g/dL???Platelet Count - 630 k/mm3???RDW-SD - 61.0 femtoliters???MPV - 9.0femtoliters???Nucleated RBC (Automated) - 0.0 #/100 WBC'S???Abs. NRBC - 0.0 k/mm3 CBC w/ Differential (04/20/2023) ???WBC - 10.6 k/mm3???RBC - 3.30 m/mm3???Hgb - 8.8 Gm/dL???Hct - 31.3 %???MCV - 94.8 femtoliters???MCH - 26.7 pg???MCHC - 28.1 g/dL???Platelet Count - 681 k/mm3???RDW-SD - 65.8 femtoliters???MPV - 9.1 femtoliters???Nucleated RBC (Automated) - 0.0 #/100 WBC'S???Abs. NRBC - 0.0 k/mm3???Abs. Neut - 7.3 k/mm3???Abs. Lymph - 1.3 k/mm3???Abs. Carlisle - 1.5 k/mm3???Abs. Eo - 0.1 k/mm3???Abs. Baso - 0.1 k/mm3???Neut % - 68.8 %???Lymph % - 12.5 %???Carlisle % - 14.1 %???Eos % - 1.3 %???Baso % - 0.8 %???Imm Gran - 2.5 %???Abs. Imm Gran - 0.3 k/mm3 Comprehensive Metabolic Panel (04/20/2023) ???Sodium - 149 mmol/L???Potassium - 4.7 mmol/L???Chloride - 103 mmol/L???Bicarbonate Level - 38 mmol/L???Anion Gap - 8???Glucose Level - 144 mg/dL???BUN - 16 mg/dL???Creatinine-Blood - 0.6 mg/dL???Estimated GFR Creatinine - 109 ML/MIN/1.73 M2???Calcium - 9.1 mg/dL???Protein, Total - 6.4 Gm/dL???Alb umin - 3.6 Gm/dL???AG Ratio - 1.3???Alkaline Phosphatase - 143 units/L???AST (SGOT) - 27 units/L???ALT (SGPT) - 17 units/L? ?Bilirubin, Total - <0.2 mg/dL COVID-19 (Novel Coronavirus), Rapid PCR (04/20/2023) ???COVID-19 by RT-PCR - NEGATIVE D Dimer (04/20/2023) ???D-Dimer - 3.29 mg/L FEU High??Sensitivity??Troponin T (04/20/2023) ???High Sensitivity Troponin (HSTnT) - 49 ng/L HOLD GREEN TUBE (04/20/2023) ???Hold Green Top - SPECIMEN DISCARDED AFTER 1 WEEK INR (04/20/2023) ???INR - 1.0???Protime (PT) - 10.9 seconds Lipase (04/20/2023) ???Lipase - 35 units/L ProBNP (04/20/2023) ???Nt-Probnp - 711 pg/mL Troponin T, High Sensitivity (04/20/2023) ???High Sensitivity Troponin (HSTnT) - 41 ng/L Allergies (NKA means No Known Allergies) [...] Metabolic alkalosis?? Multiple fractures of ribs?? Old UT (myocardial infarction) X 3?? old Rib fractures, right 3-8?? PVD (peripheral vascular disease)?? Smoking greater than 40 pack years?? Underweight?? Education Materials Below is the list of Educational Leaflet Providered with your Discharge Instructions. What Is COPD??? Valuables and Belongings I fully understand and [...] ?? Date for Pt to Sign Valuables/Belongings: 04/20/23 15:47:00 ?? Other Discharge Information ?? Wound Assessment?? Wound Assessment?? Wound Location I: Shoulder, right Wound I, Present on Admission: Yes ?? Case Management Discharge Plan?? Discharge Plan?? Discharge Level of Care at Discharge: Home/Alf/Foster Care ?? Pulmonary Rehab Status?? Pulmonary Rehab Discharge Status?? CPAP/BiPAP Mask Type: Full CPAP/BiPAP Mask Size: Small Respiratory Rate: 17 br/min ? Common Emergency Awareness Tips IS [...] are strongly encouraged to quit. Please call [facility] [employer] [facility] at [phone] or [phone] ([phone]) or log in to [email or web address] for referrals to smoking cessation programs. ?? 832 Suicide & Crisis Lifeline is available 20/06 if you or someone you know needs to find a reason to keep living. By calling 011 you'll be connected to a skilled, trained counselor at a crisis center in your area. INPATIENT DISCHARGE INSTRUCTIONS SIGNATURE PAGE ANT VARMA Location:[facility] Registration Date and Time:04/20/2023 10:48 EDT Primary Care Physician: Jose LEE MD, Jorge Tsang, Attending Physician: Leeroy AMAYA, Anjana, I ANT VARMA, have received the above patient education materials/instructions and have verbalized understanding. If ambulance or transport services are being used I further acknowledge being given a choice of service. ?? If you need to contact me, please call me at this number: . Patient/Scow Captain Name: Patient/Scow Captain Signature: Relationship to Patient: Witness Name/Signature: Date: * Kasia Lund RN: PERFORM Event Display: Patient Education Leaflets Authored Date: [id number] What Is COPD? ?? 12100 What Is COPD? COPD stands for chronic obstructive pulmonary disease. It means the airways in your lungs are blocked (obstructed). This makes it hard to breathe.??You may have trouble with daily activities because of shortness of breath. Over time, the shortness of breath often gets worse. This makes it harder totake care of yourself and take part in activities. Chronic bronchitis and emphysema are 2 common types of COPD. How did I get COPD? Most people get COPD from smoking. Cigarette smoke damages lungs. This can develop into COPD over many years. ?? How COPD affects you COPD makes you work harder to breathe. Air may get trapped in the lungs. This prevents your lungs from filling completely with fresh oxygen-filled air when you breathe in (inhale). It's harder to take deep breaths, especially when you are active and start breathing faster. Over time, your lungs maybecome enlarged, filled with air that does not transfer oxygen into the blood. These problems lead to shortness of breath (also called dyspnea). Hoarse, whistling breathing (wheezing) and a chronic cough are common. So is feeling tired and worn-out (fatigue).? What happens in chronic bronchitis? The??cells in the airways make more mucus than normal. The mucus builds up, narrowing the airways. This means less air travels into and out of the lungs. The lining of the airways may also become swollen (inflamed). This causes the airways to narrow even more. ?? What happens in emphysema? The small airways are damaged and??lose their stretchiness. The airways??collapse when you exhale. This causes air to get trapped in the air sacs.??So less oxygen enters the blood vessels. And less oxygen is delivered to all the cells of your body. This makes it hard to breathe. ?? Damage to cilia Cilia are small hairs that line and protect the airways. Smoking damages the cilia. Damaged cilia can???t sweep mucus and particles away. Some of the cilia are destroyed. This damage makes COPD worse. ?? How daily issues affect your health Many things in your daily life impact your health. This can include transportation, money problems,housing, access to food, and child care provider. If you can???t get to medical appointments, you may not receive the care you need. When money is tight, it may be difficult to pay for medicines. And living far from a grocery store can make it hard to buy healthy food. If you have concerns in any of these or other areas, talk with your healthcare team. They may know of local resources to assist you. Or they may have a staff person who can help. ?? Last Reviewed Date: 2021 ?? [id number] [employer]. All rights reserved. This information is not intended as a substitute for professional medical care. Always follow your healthcare professional's instructions. ?? Portable XR Chest Views * [facility] , CIS S: TRANSCRIBE Jeff Rosa MD: VERIFY Event Display: Result: Authored Date: [id number] AP upright portable chest dated April 20, 2023 at 0528 hours. Comparison films are from March 21, 2023. HISTORY: Pain and shortness of breath. FINDINGS: The cardiac silhouette is within normal limits for size. Central pulmonary vascular engorgement is demonstrated. No airspace infiltrate or pleural effusion is identified. There are healed right-sided rib fractures with fixation plates in place. IMPRESSION: Volume overload pattern. Examination 26055. Thank you for allowing me to participate in the care of this patient. WSN: [id number] Ordering Physician: Azra Singh Dictated By: Jeff Rosa MD Dictated Date/Time: 04/20/23 8:10 am Reviewed By: Jeff Rosa MD Signed By: Jeff Rosa MD Signed Date/Time: 04/20/23 8:10 am Transcribed By: BERENICE Transcribed Date/Time: 04/20/23 8:09 am Radiology * [facility] , CIS S: TRANSCRIBE Giacomo España MD: VERIFY Event Display: Result: Authored Date: [id number] US Doppler Ext Lower Venous Left Hx of Present Illness: Increasing SOB x1hr. Per roommate O2 was 78% on 3L @baseline. 9 10 abd pain also, dull and sharp. Has PICC line; Reason: Other:; Pain in limb; Clinical Question(s): Thrombus History of deep venous thrombosis. Recently stopped anticoagulation therapy. Now with shortness of breath. Chest pain. Worsening swelling of left lower extremity. COMPARISON: 08/09/2022 IMAGING TECHNIQUE: Ultrasound of the veins from the groin through the calf was performed using grayscale, color, and spectral Doppler ultrasound assessing for complete compressibility and normal flowcharacteristics. FINDINGS: Common femoral vein: Patent. No thrombosis. Femoral vein: There is abnormal appearance of most of the length of the femoral vein. Images of small diameter, noncompressible, and has decreased blood flow within it. This is the same distribution of thrombus which has been present on examinations dating back to at least 07/17/2022 The small diameter indicates that there is a chronic component. Popliteal vein: Patent. No thrombosis. Gastrocnemius veins: The visualized portions are patent without evidence of thrombosis. Peroneal veins: The visualized portions are patent without evidence of thrombosis. Posterior tibial veins: The visualized portions are patent without evidence of thrombosis. Contralateral common femoral vein: Patent. No thrombosis. OTHER FINDINGS: No significant other abnormality. IMPRESSION: 1. 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 The small vein size indicates a chronic component. It is not possible to determine if this is all chronic or represent some component of acute thrombus superimposed on chronic change. 2. No deep venous thrombosis noted in any new location in the left lower extremity. WSN: [id number] Ordering Physician: Azra Singh Dictated By: Giacomo España MD Dictated Date/Time: 04/20/23 8:29 am Reviewed By: Giacomo España MD Signed By: Giacomo España MD Signed Date/Time: 04/20/23 8:29 am Transcribed By: BERENICE Transcribed Date/Time: 04/20/23 8:16 am CTA Chest vessels W contrast IV * [facility] , CIS S: TRANSCRIBE Leanne AMAYA, Lexy: VERIFY Event Display: Result: Authored Date: [id number] EXAMINATION: CT Angio Chest INDICATION: Hx of Present Illness: Increasing SOB x1hr. Per roommate O2 was 78% on 3L @baseline. 9 10 abd pain also, dull and sharp. Has PICC line; Reason: Other:; PE suspected, Intermediate prob, positive D-dimer,; Clinical Question(s): Pulmonary Embolism; Order Comment: TECHNIQUE: [...] used to optimize exposure parameters. CTDIvol Body: 4.22 mGy, DLP Body: 372 mGy*cm. COMPARISONS: 01/15/2023 09/15/2022 10/31/2021 ANGIOGRAPHIC FINDINGS: No pulmonary embolism to the proximal and mid segmental level. Enlarged main pulmonary artery at 37mm. No acute aortic abnormality seen on this study performed without cardiac gating. Mild to moderate eccentric atherosclerosis. Mild ectasia of the ascending aorta. Common variant of shared origin of the right brachiocephalic and left common carotid. NON-ANGIOGRAPHIC FINDINGS: Relays Draftsperson View Findings, Lines and Tubes: Partially seen vascular access catheter terminating in the low SVC. Trachea and Airways: Bronchial wall thickening in the lower lungs, left greater than right. Lungs and Pleura: Moderate motion artifact. Severe pulmonary emphysema. Area of groundglass seen medially in the left lung as series 705 image 29 which is unchanged. This measures approximately 3.0 x1.6 cm. Calcified granuloma in the right upper lung. 2 mm nodule in the right lung laterally, upper lobe, series 705 image 39, unchanged and also likely a granuloma. Partially seen 3 mm nodule at the right lung base of series 705 image 84. Lung bases are not completely included.. Trace bilateral pleural fluid. Mediastinum and sivan: Subcentimeter thyroid nodules which do not meet criteria for further workup and are unchanged. No mediastinal or hilar lymphadenopathy. Mildly patulous esophagus. Heart: Heart is partially visualized. Heart is normal in size. No pericardial effusion. Severe coronary artery atherosclerosis. Chest Wall Soft Tissues: Imaged area shows no acute abnormality. Small axillary lymph nodes. Diaphragm and upper abdomen: Very limited images show a small fat-containing right posterior diaphragmatic hernia. Bones: No acute change from prior exam. Osteopenic bones. Deformity of the medial right clavicle. Severe degenerative changes at the right shoulder joint are partially seen. There is healed deformityof previous right posterior rib fractures with fixation. Partially seen compression deformity at the lower thoracic spine. IMPRESSION: No evidence of pulmonary embolism. Bronchial wall thickening seen in the lower lungs. This can be seen with bronchitis/airway infection or inflammation. Up to severe degree of emphysema. Enlarged pulmonary arteries. This can be seen in underlying pulmonary hypertension. There is a groundglass area in the left upper lung which is persisting from previous exam of December 2022, as well as exams dating back to October 2021. 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 WSN: [id number] Ordering Physician: Lorie Burton Dictated By: Lexy Perdomo MD Dictated Date/Time: 04/20/23 9:53 am Reviewed By: Lexy Perdomo MD Signed By: Lexy Perdomo MD Signed Date/Time: 04/20/23 9:53 am Transcribed By: BERENICE Transcribed Date/Time: 04/20/23 9:43 am Patient Care team information Care Team Personnel Name: Glo Camarena RN Position: [facility] RN Member Role: Primary Care Nurse Name: Fatimah Bennett RN Position: [facility] RN Member Role: Primary Care Nurse Name: Mariely Hardy RN Position: [facility] RN Member Role: Primary Care Nurse Name: Marleen Uriarte RN Position: [facility] RN Member Role: Primary Care Nurse Name: Sydney Zelaya Position: [facility] PCO OFFICE STAFF Member Role: Lifetime Consulting Physician Name: Judd Barahona RN Position: [facility] RN Member Role: Primary Care Nurse Name: Mag Harry RN Position: [facility] RN Member Role: Primary Care Nurse Name: An Blount RN Position: [facility] RN Supv Member Role: Primary Care Nurse Name: Marianna Ng RN Position: [facility] SN RN Member Role: Primary Care Nurse Name: Avani Odell RN Position: [facility] RN Member Role: Primary Care Nurse Name: Lisbet Hickman RN Position: [facility] RN Member Role: Primary Care Nurse Name: Ruben Bello RN Position: [facility] RN Member Role: Primary Care Nurse Name: Araceli Simon RN Position: [facility] RN Member Role: Primary Care Nurse Name: Moni Dugan RN Position: [facility] RN Member Role: Primary Care Nurse Name: Jorge Garcia III, MD Position: Reference Physician Member Role: PCP Address: Address: [address] [place] [id number] Name: Misty Nguyen RN Position: [facility] RN Member Role: Primary Care Nurse Name: Joyce Cobb Position: [facility] RN Member Role: Primary Care Nurse Name: Sarwat Aj RN Position: [facility] RN Member Role: Primary Care Nurse Name: Cassi Batista RN Position: [facility] RN Member Role: Primary Care Nurse Name: Daija Huitron RN Position: [facility] RN Member Role: Primary Care Nurse Name: Ellis Mayfield RN Position: [facility] RN Supv Member Role: Primary Care Nurse Name: Ayah Robison RN Position: [facility] RN Member Role: Primary Care Nurse Name: Radha Moreno RN Position: [facility] RN Member Role: Primary Care Nurse Name: Jina Smalls RN Position: [facility] RN Member Role: Primary Care Nurse Name: Laura Clements RN Position: [facility] RN Member Role: Primary Care Nurse Name: Colette Syed RN Position: [facility] RN Member Role: Primary Care Nurse Name: Muriel Daley RN Position: [facility] RN Supv Member Role: Primary Care Nurse Name: Darlyn Alvarez RN Position: [facility] RN Member Role: Primary Care Nurse Name: Zohreh Pink RN Position: [facility] RN Member Role: Primary Care Nurse Name: Sophie Berrios RN Position: [facility] RN Member Role: Primary Care Nurse Name: Grisel Mcgowan RN Position: [facility] RN Member Role: Primary Care Nurse Name: Uyen Mitchell RN Position: [facility] RN Member Role: Primary Care Nurse Name: Nasra Smith NP Position: Reference Physician Member Role: Primary Care Nurse Address: Address: [address] [place], [place] [address] Name: Cindy Grullon RN Position: [facility] RN Supv Member Role: Primary Care Nurse Name: Silas Knox RN Position: [facility] RN Member Role: Primary Care Nurse Name: Elham Lee RN Position: [facility] PCO RN Member Role: Primary Care Nurse Name: Dariana Mariee RN Position: [facility] RN Member Role: Primary Care Nurse Name: Ana María Cat RN Position: [facility] RN Member Role: Primary Care Nurse Name: Flor Holley Position: [facility] RN Member Role: Primary Care Nurse Name: Bret Aguirre RN Position: [facility] RN Member Role: Primary Care Nurse Name: Ghazal Moreno Position: [facility] RN Member Role: Primary Care Nurse Name: Audra Martinez RN Position: [facility] RN Member Role: Primary Care Nurse Name: Shahbaz Bobo RN Position: [facility] RN Member Role: Primary Care Nurse Name: Jennifer Yin LPN Position: [facility] RN Member Role: Primary Care Nurse Name: Alina Arce RN Position: [facility] RN Member Role: Primary Care Nurse Name: Kasia Lund RN Position: [facility] RN Member Role: Primary Care Nurse Name: Radha Masterson RN Position: [facility] RN Member Role: Primary Care Nurse Name: Landy Villarreal RN Position: [facility] RN Member Role: Primary Care Nurse Name: Amy Larios RN Position: [facility] RN Member Role: Primary Care Nurse Name: Indira Lindsey RN Position: [facility] SN RN Member Role: Primary Care Nurse Name: Rosa Elena Pope RN Position: [facility] RN Member Role: Primary Care Nurse Name: Florentino Garcia RN Position: [facility] RN Member Role: Primary Care Nurse Name: Cristel Moreno RN Position: [facility] SN RN Member Role: Primary Care Nurse Name: Rosa Elena De León RN Position: [facility] Hospital Grapple Crew Leader Member Role: Primary Care Nurse Name: Tulio Pina RN Position: [facility] RN Member Role: Primary Care Nurse Name: Maximiliano Claros RN Position: [facility] RN Member Role: Primary Care Nurse Name: Narda Barnes RN Position: [facility] RN Member Role: Primary Care Nurse Name: Zoë Cisse RN Position: [facility] RN Member Role: Primary Care Nurse Name: Pat Bowers RN Position: [facility] SN RN Member Role: Primary Care Nurse Name: Ruy Salcido RN Position: [facility] RN Member Role: Primary Care Nurse Name: Hilaria Aparicio RN Position: [facility] RN Member Role: Primary Care Nurse Name: Carly Rosado RN Position: [facility] RN Supv Member Role: Primary Care Nurse Name: Taryn Rosado RN Position: [facility] RN Member Role: Primary Care Nurse Name: Sydney Rosado RN Position: [facility] RN Member Role: Primary Care Nurse Name: Uriel Dumont Position: [facility] RN Member Role: Primary Care Nurse Name: Selene Vazquez RN Position: [facility] RN Member Role: Primary Care Nurse Name: Dariana Becerra RN Position: [facility] RN Member Role: Primary Care Nurse Name: Leyla Verma LPN Position: [facility] RN Member Role: Primary Care Nurse Name: Rody Mays RN Position: [facility] RN Member Role: Primary Care Nurse Name: Marielos Mixon RN Position: [facility] RN Member Role: Primary Care Nurse Name: Radha Flores RN Position: [facility] RN Member Role: Primary Care Nurse Name: Rose Kyle RN Position: [facility] Hospital Grapple Crew Leader Member Role: Primary Care Nurse Name: Aimee Salamanca RN Position: [facility] RN Member Role: Primary Care Nurse Name: Jacobo Caceres Position: [facility] RN Member Role: Primary Care Nurse Name: Savanna PINK Attending Position: [facility] ED Medicine MD Name: Shefali Espinoza RN Position: [facility] ED RN W/OE and Tasks Member Role: Patient Care Provider Name: Felicity Montes MD Position: [facility] ED Medicine MD Member Role: ED Attending Physician Address: Address: [address] [place] [address] [place] [address]- Name: Lorie Persaud Position: [facility] Associate Professional Member Role: Physician Gastroenterology Professor Address: Address: [address] [place] [address]- Name: Tayler Giles Position: [facility] ED TA [facility] Member Role: Enterprise Account Executive Name: Azra Hair Position: [facility] Associate Professional Member Role: ED Physician Gastroenterology Professor Address: Address: [address] [place] [address] [address]- Care Team Related Persons Name: STEVENSON HAMM Address: home [address] [place] [id number] Name: MELINA VARMA Address: [place] [address] Name: GARRY VARMA Address: home [address] [address] Name: BRIEN LANCASTER Address: home [address] [place] [address]
--- OUTSIDE RECORDS SUMMARY | 2023-08-15 20:29 | XMS_ITS | Continuity of Care Document ---
Author Name Unknown Organization [facility] Address [address] [place] [address]- Care Team Providers Care Port Traffic Manager Name Role Phone Jorge Garcia III, MD Primary Care Physician [place] [facility] [place] [facility] [address] [place] [address] [place] [address] [facility] Allergies, Adverse Reactions, Alerts Substance Reaction [...] 10:39:00 EST, Aerosol, Route to Pharmacy Electronically, [id number], [facility]/pharmacy #[id number], 182, cm, 12/26/19 9:43:00 EST, [place]... [...] Acute 07/12/20 13:57:00 EDT, 06/12/20 13:57:00 EDT, [facility]/pharmacy #[id number], [...] Acute 11/08/20 13:57:00 EST, 05/15/20 13:55:00 EDT, [facility]/pharmacy #[id number], 182, cm, 05/15/20 13:20:00 EDT, Height... [...] 6, 03/31/07 11:15:26, Print MARTIN Number, [facility], [address] [place] [address], [id number], Constant Indicator Start Date: 03/31/07 Stop Date: [...]
--- OUTSIDE RECORDS SUMMARY | 2023-08-15 20:29 | XMS_ITS | Continuity of Care Document ---
Author Name Unknown Organization [facility] ter Address [address] [place] [address]- Care Team Providers Care Gas Welding Machine Operator Name Role Phone Jose LEE MD, Jorge Tsang Primary Care Physician [phone] [place] [facility] [place] - 06/12/[address] [address]- Discharge Disposition: A-D/C Walkout Attending Physician: Not [...] mL, 6 Refills, Maintenance, 07/24/20 16:44:00 EDT, [facility]/pharmacy #[id number], 182, cm, 05/26/20 [...] 14:30:54, Tablet Start Date: 07/01/14 Status: Ordered Carafate 1 gm oral tablet 1 Gm, 1, tablet, By Mouth, 3 times a day before meals and bedtime, # 28 tablet, Refills 0, Tot. Refills 0, Maintenance, 06/05/22 9:51:00 EDT, Route to Pharmacy Electronically, [facility]/pharmacy #[id number], Partial fill upon patient request if the prescription i... Start Date: 06/05/22 Stop Date: 06/12/22 Status: Ordered duloxetine 60 [...] Maintenance,05/16/22 16:21:00 EDT, Route to Pharmacy Electronically, [facility], Partial fill upon patient request if the prescription is for a sched... Start Date: 05/16/22 Status: Ordered Incruse Ellipta 62.5 mcg/inh inhalation powder 1 each, Inhalation, Every 24 hours, doses should be taken at least 24 hours apart, j44.9, # 1 each,6 Refills, Maintenance, 03/21/22 9:48:00 EDT, Powder, [facility]/pharmacy #[id number], 182, cm, 03/12/22 4:49:00EDT, Height, [...] 0 Refills, Maintenance, 04/03/22 16:44:00 EDT, Film, [facility]/pharmacy #[id number], Partial fill upon patient [...] 11/08/22 12:00:00 EST, 06/08/22 18:07:00 EDT, Tablet, [facility]/pharmacy #[id number], Partial fill upon patient [...] 04/10/22 11:40:00 EDT, Route to Pharmacy Electronically, [facility]/pharmacy #[id number], Partial fill upon patientrequest if the prescription is for a schedule II op... Start Date: 04/10/22 Status: Ordered Toprol XL 25 mg oral tablet, extended release 25, mg, 1, tablet, By Mouth, Daily, 30, tablet, 6, 6, 03/31/07 11:15:26, Print MARTIN Number, [facility], [address] [place] [address], [id number], Constant Indicator Start Date: 03/31/07 Stop Date: [...] Multiple fractures of ribs(Confirmed) 01/06/11 Active Old MD (myocardial infarctio n) X 3(Confirmed) Active PVD (peripheral vascular disease)(Confirmed) Active Underweight(Confirmed) Active 1Cardiac stents 1991, 1995 Vital Signs Most recent to oldest [Reference Range]: 1 Height 184 cm (06/12/22 9:29 PM) Weight 62 kg (06/12/22 9:29 PM) Oxygen Saturation [94-100 %] 100 % (06/12/22 9:29 PM) Pulse Rate [55-90 bpm] 69 bpm (06/12/22 9:29 PM) Body Mass Index [18.5-24.99] 18.31 *L* (06/12/22 9:29 PM) Blood Pressure [90-138/55-84 mm Hg] 95/6 5mm Hg (06/12/22 9:29 PM) Respiratory Rate [16-30 br/min] 20 br/mi n (06/12/22 9:29 PM) Temperature [96.8-100.4 DegF] 98.3 DegF (06/12/22 9:29 PM) Liters per Minute 3 L/min (06/12/22 9:29 PM) Mode of Delivery (Oxygen) Nasal cannula (06/12/22 9:29 PM) Blood pressure sites Arm, right (06/12/22 9:29 PM) Temperature Route Oral (06/12/22 9:29 PM) Dry Weight 62 kg (06/12/22 9:29 PM) Weight Obtained Via Patient/family state d (06/12/22 9:29 PM) Dry Weight Obtained Via Patient/family s tated (06/12/22 9:29 PM) Social History Social History Type Response Tobacco Use: 4 or less cigar ettes(less than 1/4 pack)/day in last 30 days. Sex
--- OUTSIDE RECORDS SUMMARY | 2023-08-15 20:30 | XMS_ITS | Continuity of Care Document ---
Author Name Unknown Organization [facility] Address [address] [place] [address]- Care Team Providers Care Industrial Gas Fitter Helper Name Role Phone Jorge Garcia III, MD Primary Care Physician Encounter [facility] [place] Date(s): 05/28/20 - 08/27/20 [facility] [address] [place] [address] [facility] Attending Physician: Cheng Marsh MD Admitting Physician: [...] 16:44:00 EDT, Aerosol, Route to Pharmacy Electronically, [id number], [facility]/pharmacy #[id number], 182, cm, 05/26/20 [...] each,6 Refills, Maintenance, 08/13/20 16:33:00 EDT, Powder, [facility]/pharmacy #[id number], 182, cm, 05/26/20 [...] tablet, 11 Refills, Maintenance, 05/15/20 13:53:00 EDT, [facility]/pharmacy #[id number], 182, cm, 05/15/20 13:20:00 EDT, [...] 6, 03/31/07 11:15:26, Print MARTIN Number, [facility] [address] [place] [address], [id number], Constant Indicator Start Date: 03/31/07 Stop Date: [...]
--- OUTSIDE RECORDS SUMMARY | 2023-08-15 20:30 | XMS_ITS | Continuity of Care Document ---
Author Name Unknown Organization [facility] ter Address [address] [place] [address]- Care Team Providers Care Experimental Electronics Developer Name Role Phone Jose LEE MD, Jorge Tsang Primary Care Physician [place] [facility](s[place] 04/03/22 - 04/03/[address] [address]- Encounter Diagnosis Compression fracture of spine(Final) - 04/03/22 Discharge Disposition: A-D/C Home Attending Physician: Sona Pérez MD Admitting Physician: Sona Pérez MD Referring Physician: Not on Staff, Referring [...] 0 Refills, Maintenance, 03/12/22 12:11:00 EDT, Tablet, [facility]/pharmacy #[id number], Partial [...] 16:44:00 EDT, Aerosol, Route to Pharmacy Electronically, [id number], [facility]/pharmacy #[id number], 182, [...] hours, PRN as needed for pain, for 2 days, # 5 tablet, 0 Refills, Acute 04/05/22 16:34:00 EDT, 04/03/22 16:34:00 EDT, Tablet, [facility]/pharmacy #[id number], Partial fill upon patient request if the prescription is for a schedul... Start Date: 04/03/22 Stop Date: 04/05/22 Status: Ordered Dilaudid 2 mg oral tablet 1 tablet = 2 mg, By Mouth, Every 4 hours, PRN as needed for pain, # 10 tablet, 0 Refills, Acute 03/31/23 20:07:00 EDT, 03/30/22 20:07:00 EDT, Tablet, [facility]/pharmacy #[id number], Partial fill upon patient request if the prescription is for a schedule II opioid... Start Date: 03/30/22 Stop Date: 03/31/23 Status: Ordered Dilaudid Inj 2 mg, Injection, IV Push Slowly, Every 15 minutes for 3 doses/times, PRN for Pain , Moderate, and SBP greater than 100, Routine, 04/03/22 12:55:00 EDT, Stop date Limited # of times Start Date: 04/03/22 Stop Date: 04/03/22 Status: Completed duloxetine 60 mg oral enteric [...] each,6 Refills, Maintenance, 03/21/22 9:48:00 EDT, Powder, [facility]/pharmacy #[id number], 182, cm, 03/12/22 4:49:00EDT, [...] 0 Refills, Maintenance, 04/03/22 16:44:00 EDT, Film, [facility]/pharmacy #[id number], Partial [...] drug. Start Date: 03/25/22 Status: Ordered Neurontin 600 mg oral tablet By Mouth, [...] drug. Start Date: 03/27/22 Status: Ordered predniSONE 5 mg oral tablet 3 tablet = 15 mg, By Mouth, Daily, # 9 tablet, 0 Refills, Soft Stop, 03/30/22 20:08:00 EDT, Tablet,[facility]/pharmacy #[id number], Partial fill upon patient request if the prescription is for a schedule II opioid drug., 183, cm, 03/27/22 7:45:00 EDT, Height, 54.... Start Date: 03/30/22 Status: Ordered Symbicort 160mcg/4.5mcg Inhaler 2, puffs, Inhalation, 2 times a day, # 10.2 Gm, Refills 0, Maintenance, 03/08/19 9:01:22 EDT, Aerosol Start Date: 03/08/19 Status: Ordered Toprol XL 25 mg oral tablet, extended release 25, mg, 1, tablet, By Mouth, Daily, 30, tablet, 6, 6, 03/31/07 11:15:26, Print MARTIN Number, ADS [facility], [address] [place] [address], [id number], Constant Indicator Start Date: 03/31/07 Stop Date: [...] Multiple fractures of ribs(Confirmed) 01/06/11 Active Old [place] (myocardial infarctio n) X 3(Confirmed) Active PVD (peripheral vascular disease)(Confirmed) Active Underweight(Confirmed) Active 1Cardiac stents 1991, 1995 Vital Signs Most recent to oldest [Reference Range]: 1 2 3 Oxygen Saturation [94-100 %] 99 % (04/03/22 5:30 PM) 100 % (04/03/22 12:32 PM) Pulse Rate [55-90 bpm] 83 bpm (04/03/22 5:30 PM) 80 bpm (04/03/22 12:32 PM) Blood Pressure [90-138/55-84 mm Hg] 108/69mm Hg (04/03/22 5:30 PM) 140/76mm Hg *H* (04/03/22 12:32 PM) Respiratory Rate [16-30 br/min] 16 br/min (04/03/22 5:30 PM) 16 br/min (04/03/22 4:42 PM) 16 br/min (04/03/22 2:58 PM) Temperature [96.8-100.4 DegF] 98.3 DegF (04/03/22 5:30 PM) 97.8 DegF (04/03/22 12:32 PM) Liters per Minute 3 L/min (04/03/22 12:32 PM) Mode of Delivery (Oxygen) Room air (04/03/22 5:30 PM) Nasal cannula (04/03/22 12:32 PM) Blood pressure sites Arm, left (04/03/22 5:30 PM) Arm, left (04/03/22 12:32 PM) Temperature Route Oral (04/03/22 5:30 PM) Oral (04/03/22 12:32 PM) Social History Social History Type Response Tobacco Use: Former smoker.. Sex
--- OUTSIDE RECORDS SUMMARY | 2023-08-15 20:30 | XMS_ITS | Continuity of Care Document ---
Author Name Unknown Organization [facility] Address [address] [place] [address]- Care Team Providers Care Pearl Fisherman Name Role Phone Jose LEE MD, Jorge Tsang Primary Care Physician Encounter [facility] [place] Date(s): 06/29/21 - 08/16/21 [facility] [address] [place] [address]- Attending Physician: Cheng Marsh MD Admitting Physician: [...] mL, 6 Refills, Maintenance, 07/24/20 16:44:00 EDT, [facility]/pharmacy #[id number], 182, cm, 05/26/20 16:01:00 EDT, Height, 67, kg, 07/05/20 13:57:00 EDT, Dry Weight Start Date: 07/24/20 Status: Ordered albuterol CFC free 90 mcg/inh inhalation aerosol 2, puffs, Inhalation, Every 6 hours, PRN, j44.9, # 1 each, Refills 6, Tot. Refills 6, Maintenance, 07/24/20 16:44:00 EDT, Aerosol, Route to Pharmacy Electronically, [id number], [facility]/pharmacy #[id number], 182, cm, 05/26/20 16:01:00 [...] 11:15:26, Print MARTIN Number, [facility]S [facility], [address] [place] [address], [id number], Constant Indicator Start Date: 03/31/07 Stop Date: [...]
--- OUTSIDE RECORDS SUMMARY | 2023-08-15 20:30 | XMS_ITS | Continuity of Care Document ---
Author Name Unknown Organization [facility] Address [address] [place] [address]- Care Team Providers Care Wastewater Treatment Operator Name Role Phone Jose LEE MD, Jorge Tsang Primary Care Physician Encounter [facility] Date(s): 09/03/21 - 10/03/21 [facility] [address] [place] [address]- Allergies, Adverse Reactions, Alerts Substance Reaction Severity Status naproxen lesions on lips Active Toradol hives Active Skelaxin H/O: migraine Active morphine 1 itch Active Keflex rash [...] 6 Refills, Maintenance, 07/24/20 16:44:00 EDT, [facility]/pharmacy #[id number], 182, cm, 05/26/20 16:01:00 EDT, Height, 67, kg, 07/05/20 13:57:00 EDT, Dry Weight Start Date: 07/24/20 Status: Ordered albuterol CFC free 90 mcg/inh inhalation aerosol 2, puffs, Inhalation, Every 6 hours, PRN, j44.9, # 1 each, Refills 6, Tot. Refills 6, Maintenance, 07/24/20 16:44:00 EDT, Aerosol, Route to Pharmacy Electronically, [id number], [facility]/pharmacy #[id number], 182, cm, 05/26/20 16:01:00 [...] 13:15:00 EST, 09/28/21 13:15:00 EDT, Tablet, [facility]/pharmacy #[id number], Partial fill uponpatient request if the prescription is for a schedu... Start Date: 09/28/21 Stop Date: 10/05/21 Status: Ordered Incruse Ellipta 62.5 mcg/inh inhalation powder 1 each, Inhalation, Every 24 hours, doses should be taken at least 24 hours apart, j44.9, # 1 each,6 Refills, Maintenance, 08/13/20 16:33:00 EDT, Powder, [facility]/pharmacy #[id number], 182, cm, 05/26/20 16:01:00 [...] 6, 03/31/07 11:15:26, Print MARTIN Number, ADS [facility], [address] [place] [address], [id number], Constant Indicator Start Date: 03/31/07 Stop Date: [...]
--- OUTSIDE RECORDS SUMMARY | 2023-08-15 20:30 | XMS_ITS | Continuity of Care Document ---
Author Name Unknown Organization [facility] ter Address [address] [place] [address]- Care Team Providers Care Chemical Librarian Name Role Phone Jose LEE MD, Jorge Tsang Primary Care Physician [phone] Encounter [facility] [place] Date(s): 05/13/22 - 05/13/[address] [address]- Discharge Disposition: A-D/C Home Attending Physician: Kinga AMAYA, Cristóbal Benjamin Admitting Physician: Cristóbal Donato MD Referring Physician: Not on Staff, Referring MD Allergies, Adverse Reactions, Alerts Substance Reaction Severity Status Keflex 1 rash Active Skelaxin H/O: migraine Active naproxen lesions on lips Active Toradol hives Active 1tolerates pip/tazo 11/17 Immunizations Given and [...] mL, 6 Refills, Maintenance, 07/24/20 16:44:00 EDT, [facility]/pharmacy #[id number], 182, cm, 05/26/20 16:01:00 EDT, Height, 67, kg, 07/05/20 13:57:00 EDT, Dry Weight Start Date: 07/24/20 Status: Ordered albuterol CFC free 90 mcg/inh inhalation aerosol 2, puffs, Inhalation, Every 6 hours, PRN, j44.9, # 1 each, Refills 6, Tot. Refills 6, Maintenance, 07/24/20 16:44:00 EDT, Aerosol, Route to Pharmacy Electronically, [id number], [facility]/pharmacy #[id number], 182, cm, 05/26/20 16:01:00 E... Start Date: 07/24/20 Status: Ordered aspirin 81 mg oral tablet 1 tablet = 81 mg, By Mouth, Daily, # 30 tablet, 0 Refills, Maintenance, 05/23/19 1:08:58 EDT, Tablet Start Date: 05/23/19 Status: Ordered atorvastatin 80 mg oral tablet By Mouth, Daily at supper, 0 Refills, Maintenance, 07/01/14 14:30:54, Tablet Start Date: 07/01/14 Status: Ordered duloxetine 60 mg oral enteric [...] each,6 Refills, Maintenance, 03/21/22 9:48:00 EDT, Powder, [facility]/pharmacy #[id number], 182, cm, 03/12/22 4:49:00EDT, Height, 56.7, [...] 0 Refills, Maintenance, 04/03/22 16:44:00 EDT, Film, [facility]/pharmacy #[id number], Partial fill upon [...] 0 Refills, Maintenance, 05/13/22 12:33:00 EDT, Tablet, [facility]/pharmacy #[id number], Partial [...] 04/10/22 11:40:00 EDT, Route to Pharmacy Electronically, [facility]/pharmacy #[id number], Partial fill upon patientrequest if the prescription is for a schedule II op... Start Date: 04/10/22 Status: Ordered Toprol XL 25 mg oral tablet, extended release 25, mg, 1, tablet, By Mouth, Daily, 30, tablet, 6, 6, 03/31/07 11:15:26, Print MARTIN Number, [facility], [address] [place] [address], [id number], Constant Indicator Start Date: 03/31/07 Stop Date: [...] Multiple fractures of ribs(Confirmed) 01/06/11 Active Old [place] (myocardial infarctio n) X 3(Confirmed) Active PVD (peripheral vascular disease)(Confirmed) Active Underweight(Confirmed) Active 1Cardiac stents 1991, 1995 Vital Signs Most recent to oldest [Reference Range]: 1 2 3 Oxygen Saturation [94-100 %] 99 % (05/13/22 12:18 PM) 100 % (05/13/22 11:56 AM) 100 % (05/13/22 9:45 AM) Pulse Rate [55-90 bpm] 77 bpm (05/13/22 12:18 PM) 70 bpm (05/13/22 11:56 AM) 72 bpm (05/13/22 9:45 AM) Blood Pressure [90-138/55-84 mm Hg] 120/77mm Hg (05/13/22 12:18 PM) 136/78mm Hg (05/13/22 11:56 AM) 151/91mm Hg *H* (05/13/22 9:45 AM) Respiratory Rate [16-30 br/min] 16 br/min (05/13/22 12:18 PM) 18 br/min (05/13/22 11:56 AM) 14 br/min *L* (05/13/22 9:45 AM) Temperature [96.8-100.4 DegF] 98.0 DegF (05/13/22 9:45 AM) Liters per Minute 2 L/min (05/13/22 12:18 PM) 2 L/min (05/13/22 11:56 AM) 2 L/min (05/13/22 9:45 AM) Mode of Delivery (Oxygen) Nasal cannula (05/13/22 12:18 PM) Nasal cannula (05/13/22 11:56 AM) Nasal cannula (05/13/22 9:45 AM) Temperature Route Oral (05/13/22 9:45 AM) Social History Social History Type Response Tobacco Use: 4 or less cigar ettes(less than 1/4 pack)/day in last 30 days. Interested in cessation: Yes. Type: Cigarettes. Sex
--- OUTSIDE RECORDS SUMMARY | 2023-08-15 20:30 | XMS_ITS | Continuity of Care Document ---
Author Name Unknown Organization [facility] Address [address] [place] [address]- Care Team Providers Care Customer Data Technician Name Role Phone Jorge Garcia III, MD Primary Care Physician Encounter [facility] Date(s): 09/18/21 - 10/18/21 [facility] [address] [place] [address]- Allergies, Adverse Reactions, Alerts Substance Reaction Severity [...] mL, 6 Refills, Maintenance, 07/24/20 16:44:00 EDT, [facility]/pharmacy #[id number], 182, cm, 05/26/20 16:01:00 EDT, Height, 67, kg, 07/05/20 13:57:00 EDT, Dry Weight Start Date: 07/24/20 Status: Ordered albuterol CFC free 90 mcg/inh inhalation aerosol 2, puffs, Inhalation, Every 6 hours, PRN, j44.9, # 1 each, Refills 6, Tot. Refills 6, Maintenance, 07/24/20 16:44:00 EDT, Aerosol, Route to Pharmacy Electronically, [id number], [facility]/pharmacy #[id number], 182, cm, 05/26/20 16:01:00 E... Start [...] each,6 Refills, Maintenance, 08/13/20 16:33:00 EDT, Powder, [facility]/pharmacy #[id number], 182, cm, 05/26/20 16:01:00 EDT, Height, [...] ADS [facility], [address] [place] [address], [id number], Constant Indicator Start Date: 03/31/07 Stop Date: [...]
--- OUTSIDE RECORDS SUMMARY | 2023-08-15 20:30 | XMS_ITS | Continuity of Care Document ---
Author Name Unknown Organization [facility] Address [address] [place] [address]- Care Team Providers Care Fruit Express Agent Name Role Phone Jose LEE MD, Jorge Tsang Primary Care Physician Encounter [facility] Date(s): 12/28/22 - 01/27/23 [facility] [address] [place] [address]- Attending Physician: Admtr, Anabel Admitting Physician: Admtr, Anabel Referring Physician: Admtr, Ar8 Allergies, Adverse Reactions, Alerts Substance Reaction Severity Status naproxen lesions on lips Active Toradol Morphine allergy Metaxalone Naproxen Cephalexin allergy hives Persistent Mild Active Keflex 1 rash Active Skelaxin H/O: migraine Active 1tolerates pip/tazo 11/17 Immunizations Given and Recorded Vaccine Date Status Refusal Reason [id number] 12y+ bivalent booster vax 08/23/22 Recorded SARS-CoV-2 [...] fractures of ribs Confirmed 01/06/11 Active Old [place] (myocardial infarction) X 3 Confirmed Active PVD (peripheral vascular disease) Confirmed Active Underweight Confirmed Active 1Cardiac stents 1995 Social History Social History Type Response Tobacco Use: 4 or less cigar ettes(less than 1/4 pack)/day in last 30 days. Sex Note * Event Display: Non BH Lab Results Authored Date: * Event Display: Non BH Lab Results Authored Date: * Event Display: X-Ray Chest, Non- BH Authored Date: * Event Display: Non BH Lab Results Authored Date: * Event Display: X-Ray Chest, Non- BH Authored Date: * Event Display: Non BH Cardiovascular Results Authored Date: * Event Display: Cardiology Office Note, Non-BH Authored Date: Patient Care team information Care [...] Consulting Physician Name: Judd Barahona RN Position: [facility] RN Member Role: Primary Care [...] Ambulatory (view) Member Role: PCP Address: Address: [address] [place] [address] Name: Misty Nguyen RN Position: [...] Care Nurse Name: Elham Lee RN Position: [facility] PCO RN Member Role: Primary [...] Name: Rosa Elena De León RN Position: [facility] Ediphone Operator Member Role: Primary Care Nurse Name: [...] Primary Care Nurse Name: Uriel Dumont Position: [facility] RN Member Role: [...] Kyle RN Position: [facility] Hospital Ediphone Operator Member Role: Primary Care Nurse Name: Aimee Salamanca Position: [facility] RN Member Role: Primary Care Nurse Name: Jacobo Caceres Position: [facility] RN Member Role: Primary Care Nurse Care Team Related Persons Name: STEVENSON HAMM Address: home [address] [place] [address] Name: MELINA VARMA Address: [place] [address] Name: GARRY VARMA Address: home [address] [address] Name: BRIEN LANCASTER Address: home [address] [place] [address]
--- OUTSIDE RECORDS SUMMARY | 2023-08-15 20:30 | XMS_ITS | Continuity of Care Document ---
Author Name Unknown Organization [facility] Address [address] [place] [address]- Care Team Providers Care Asbestos Wire Finisher Name Role Phone Elder Juliet AMAYA Primary Care Physicia n Encounter [id number] Date(s): 08/17/22 - 08/24/22 [facility] [address] [place] [address]- Attending Physician: Delmar Gonzalez MD Admitting Physician: [...] Refills, Maintenance, 07/16/22 12:59:00 EDT, Tablet, [facility]/pharmacy #[id number], Partial fill upon patient request if [...] Date: 07/03/22 Stop Date: 07/10/22 Status: Ordered Care Team Personnel Name: Ankit AMAYA, Juliet Guy Address: [address] [place] [address] [address] [facility] [place] [address]-
--- OUTSIDE RECORDS SUMMARY | 2023-08-15 20:30 | XMS_ITS | Continuity of Care Document ---
Author Name Unknown Organization [facility] Address [address] [place] [address]- Care Team Providers Care Supervisor Publications Production Name Role Phone Jose LEE MD, Jorge Tsang Primary Care Physician [phone] [place] [facility] [place] 10/30/21 - 11/29/21 [facility] [address] [place] [address]- Allergies, Adverse Reactions, Alerts Substance Reaction Severity [...] mL, 6 Refills, Maintenance, 07/24/20 16:44:00 EDT, [facility]/pharmacy #[id number], 182, cm, 05/26/20 16:01:00 EDT, Height, 67, kg, 07/05/20 13:57:00 EDT, Dry Weight Start Date: 07/24/20 Status: Ordered albuterol CFC free 90 mcg/inh inhalation aerosol 2, puffs, Inhalation, Every 6 hours, PRN, j44.9, # 1 each, Refills 6, Tot. Refills 6, Maintenance, 07/24/20 16:44:00 EDT, Aerosol, Route to Pharmacy Electronically, [id number], [facility]/pharmacy #[id number], 182, cm, 05/26/20 16:01:00 E... [...] each,6 Refills, Maintenance, 08/13/20 16:33:00 EDT, Powder, [facility]/pharmacy #[id number], 182, cm, 05/26/20 16:01:00 EDT, [...] 0 Refills, Maintenance, 11/01/21 10:44:00 EST, Gum, [facility]/pharmacy #[id number], Partial fill upon patient request [...] 11:15:26, Print MARTIN Number, [facility], [address] [place] [address], [id number], Constant Indicator Start Date: 03/31/07 Stop Date: 10/27/07 Status: Ordered Tylenol 325 mg oral tablet 650 mg, 2, tablet, By Mouth, Every 4 hours, PRN, # 30 tablet, Refills 0, Tot. Refills 0, Maintenance, Pain , Mild, 11/08/21 12:55:00 EST, Route to Pharmacy Electronically, [facility]/pharmacy #[id number], Partialfill upon patient request if the prescription [...]
--- OUTSIDE RECORDS SUMMARY | 2023-08-15 20:30 | XMS_ITS | Continuity of Care Document ---
Author Name Unknown Organization [facility] Address [address] [place] [address]- Care Team Providers Care Meat Dresser Name Role Phone Jose LEE MD, Jorge Tsang Primary Care Physician Encounter [facility] [place] Date(s): 01/23/20 - 03/09/20 [facility] [address] [address] [place] [address]- [facility] Attending Physician: Oscar Rios MD Admitting Physician: Osacr Rios MD Allergies, Adverse Reactions, Alerts Substance [...] 10:39:00 EST, Aerosol, Route to Pharmacy Electronically, [id number], [facility]/pharmacy #[id number], 182, cm, 12/26/19 9:43:00 EST, Heig... Start Date: 12/26/19 Status: Ordered apixaban = 5 mg, By Mouth, 2 times a day, To start after 7 days of 10 mg dose, 0 Refills, Maintenance, 05/27/19 14:17:22 EDT, Tablet Start Date: 05/27/19 Status: Ordered OpTrip, See Instructions, # 1 box, Refills 5, [...] Refills, Soft Stop, 12/26/19 9:58:00 EST, Tablet, [facility]/pharmacy #[id number], 182, cm, 12/26/19 9:43:00 EST, Height, [...] on left leg to coverwounds DX: PVD, 10/29/15 10:11:55, Compound Start Date: 09/25/15 Status: Ordered [...] 42 tablet, 0 Refills, Maintenance,03/05/20 9:43:00 EDT, [facility]/pharmacy #[id number], 182, cm, 03/05/20 9:03:00 EDT, Height, [...] 6, 03/31/07 11:15:26, Print MARTIN Number, [facility], [address] [place] [address], [id number], Constant Indicator Start Date: 03/31/07 Stop Date: [...]
--- OUTSIDE RECORDS SUMMARY | 2023-08-15 20:30 | XMS_ITS | Continuity of Care Document ---
Author Name Unknown Organization [facility] Address [address] [place] [address]- Care Team Providers Care Envelope Maker Name Role Phone Jose LEE MD, Jorge Tsang Primary Care Physician Encounter [facility] [place] Date(s): 09/21/21 - 10/21/21 [facility] [address] [place] [address]- Allergies, Adverse Reactions, Alerts Substance Reaction Severity [...] mL, 6 Refills, Maintenance, 07/24/20 16:44:00 EDT, [facility]/pharmacy #[id number], 182, cm, 05/26/20 16:01:00 EDT, Height, 67, kg, 07/05/20 13:57:00 EDT, Dry Weight Start Date: 07/24/20 Status: Ordered albuterol CFC free 90 mcg/inh inhalation aerosol 2, puffs, Inhalation, Every 6 hours, PRN, j44.9, # 1 each, Refills 6, Tot. Refills 6, Maintenance, 07/24/20 16:44:00 EDT, Aerosol, Route to Pharmacy Electronically, [id number], [facility]/pharmacy #[id number], 182, cm, 05/26/20 [...] each,6 Refills, Maintenance, 08/13/20 16:33:00 EDT, Powder, [facility]/pharmacy #[id number], 182, cm, 05/26/20 [...] 03/31/07 11:15:26, Print MARTIN Number, [facility], [address] [place] [address], [id number], Constant Indicator Start Date: 03/31/07 Stop Date: [...]
--- OUTSIDE RECORDS SUMMARY | 2023-08-15 20:30 | XMS_ITS | Continuity of Care Document ---
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 Name Role Phone Jose LEE MD, Jorge Tsang Primary Care Physician [phone] Encounter [facility] Date(s): 09/20/22 - 10/02/[address] [address]- Encounter Diagnosis Shortness of breath(Final) - 09/19/22 Shortness of breath(Final) - 09/22/22 Discharge Disposition: A-Transfer SNF Attending Physician: Maria G AMAYA, Rene Admitting Physician: Justa Vicente MD Referring Physician: [...] Date: 10/02/22 Stop Date: 10/05/22 Status: Ordered Dilaudid Inj 0.2 mg, Injection, IV Push Slowly, Once, PRN for Pain , Severe, Routine, 10/02/22 9:35:00 EDT Start Date: 10/02/22 Stop Date: 10/02/22 Status: Completed docusate sodium 100 mg oral [...] oral capsule 100 mg, Capsule, By Mouth, 10/02/22 9:00:00 EDT Start Date: 10/02/22 Stop Date: 10/02/22 Status: Completed gabapentin 100 mg oral capsule [...] release 25 mg, XL Tablet, By Mouth, 10/02/22 9:00:00 EDT Start Date: 10/02/22 Stop Date: 10/02/22 Status: Completed Metoprolol Succinate ER 25 mg [...] fractures of ribs Confirmed 01/06/11 Active [place] (myocardial infarction) X 3 Confirmed Active PVD (peripheral vascular disease) Confirmed Active Underweight Confirmed Active 1Cardiac stents 1995 Results Orders for Microbiology Reports Name Date Anaerobic Culture (ANAEROBIC CULTURE) Fungal Culture, Nonrespiratory (FUNGAL C ULT,NON-RESPIRATORY) 09/20/22 Sterile Body Fluid Culture W/ Gram Smear (STERILE FLUID CULT.) 09/20/22 Anaerobic Culture 09/20/22 Sterile Body Fluid Culture W / Gram Smear (Culture Sterile Body Fluid w/ Gram Smear) 09/20/22 Blood Culture 09/19/22 Blood Culture #2 09/19/22 Microbiology Reports TEST:Anaerobic Culture STATUS:Auth (Verified) BODY SITE: SOURCE:FLUID COLLECTED DATE/TIME:09/20/22 5:45 PM Anaerobic Culture SPECIMEN DESCRIPTION : FLUID RIGHT SHOULFER SPECIAL REQUESTS : NONE CULTURE : NO ANAEROBES ISOLATED REPORT STATUS : FINAL 09/22/2022 TEST:Sterile Fluid Culture STATUS:Auth (Verified) BODY SITE: SOURCE:FLUID COLLECTED DATE/TIME:09/20/22 5:45 PM Sterile Fluid Culture SPECIMEN DESCRIPTION : FLUID RIGHT SHOULFER SPECIAL REQUESTS : NONE GRAM STAIN : 4+ POLYMORPHONUCLEAR LEUKOCYTES NO ORGANISMS SEEN CULTURE : 2+ STAPHYLOCOCCUS AUREUS, METHICILLIN RESISTANT. METHICILLIN RESISTANT STAPH AUREUS SHOULD BE CONSIDERED CLINICALLY RESISTANT TO ALL BETA-LACTAMS. Result reported to the [facility]. This isolate was identified using Maldi-TOF system These AST results were performed on the [employer] ID and AST system REPORT STATUS : FINAL 09/23/2022 ORGANISM 2+ STAPHYLOCOCCUS AUREUS, METHICILLIN RESISTANT. METHICILLIN RESISTANT STAPH AUREUS SHOULD BE CONSIDERED CLINICALLY RESISTANT TO ALL BETA-LACTAMS. Result reported to the [facility]. This isolate was identified using Maldi-TOF system These AST results were performed on the [employer] ID and AST system METHOD MIN. INHIB. CONC. (MCG/ML) CIPROFLOXACIN RESISTANT CLINDAMYCIN RESISTANT ERYTHROMYCIN RESISTANT LEVOFLOXACIN RESISTANT LINEZOLID SUSCEPTIBLE OXACILLIN RESISTANT RIFAMPIN SUSCEPTIBLE RIFAMPIN RIFAMPIN SHOULD NOT BE USED ALONE FOR ANTIMICROBIAL RIFAMPIN THERAPY. TETRACYCLINE RESISTANT TRIMETH/SULFAMETHOX SUSCEPTIBLE VANCOMYCIN SUSCEPTIBLE TEST:Fungal Culture, Non-Respiratory STATUS:Unauthenticated BODY SITE: SOURCE:FLUID COLLECTED DATE/TIME:09/20/22 5:45 PM Fungal Culture, Non-Respiratory SPECIMEN DESCRIPTION : FLUID RIGHT SHOULFER SPECIAL REQUESTS : NONE DIRECT EXAM : NO FUNGAL ELEMENTS OBSERVED CULTURE : NO FUNGI ISOLATED AFTER 10 DAYS REPORT STATUS : PRELIMINARY REPORT TEST:Anaerobic Culture STATUS:Auth (Verified) BODY SITE: SOURCE:ASPIRA COLLECTED DATE/TIME:09/20/22 10:35 AM Anaerobic Culture SPECIMEN DESCRIPTION : ASPIRATE SHOULDER RT SPECIAL REQUESTS : NONE CULTURE : NO ANAEROBES ISOLATED REPORT STATUS : FINAL 09/22/2022 TEST:Sterile Fluid Culture STATUS:Auth (Verified) BODY SITE: SOURCE:JOINT COLLECTED DATE/TIME:09/20/22 10:35 AM Sterile Fluid Culture SPECIMEN DESCRIPTION : JOINT FLUID SPECIAL REQUESTS : NONE GRAM STAIN : 3+ POLYMORPHONUCLEAR LEUKOCYTES NO ORGANISMS SEEN CULTURE : 1+ STAPHYLOCOCCUS AUREUS, METHICILLIN RESISTANT. METHICILLIN RESISTANT STAPH AUREUS SHOULD BE CONSIDERED CLINICALLY RESISTANT TO ALL BETA-LACTAMS. Result reported to the [facility]. This isolate was identified using Maldi-TOF system These AST results were performed on the [employer] ID and AST system CRITICAL VALUE CALLED AND VERIFIED BY READBACK FOR: 1+ [place] [id number] BY TECH [id number] ON 09/21/22 AT 1112. REPORT STATUS : FINAL 09/22/2022 ORGANISM 1+ STAPHYLOCOCCUS AUREUS, METHICILLIN RESISTANT. METHICILLIN RESISTANT STAPH AUREUS SHOULD BE CONSIDERED CLINICALLY RESISTANT TO ALL BETA-LACTAMS. Result reported to the [facility]. This isolate was identified using Maldi-TOF system These AST results were performed on the [employer] ID and AST system METHOD MIN. INHIB. CONC. (MCG/ML) CIPROFLOXACIN RESISTANT CLINDAMYCIN RESISTANT ERYTHROMYCIN RESISTANT LEVOFLOXACIN RESISTANT LINEZOLID SUSCEPTIBLE OXACILLIN RESISTANT RIFAMPIN SUSCEPTIBLE RIFAMPIN RIFAMPIN SHOULD NOT BE USED ALONE FOR ANTIMICROBIAL RIFAMPIN THERAPY. TETRACYCLINE RESISTANT TRIMETH/SULFAMETHOX SUSCEPTIBLE VANCOMYCIN SUSCEPTIBLE TEST:Blood Culture STATUS:Auth (Verified) BODY SITE: SOURCE:Blood COLLECTED DATE/TIME:09/19/22 11:14 PM Blood Culture SPECIMEN DESCRIPTION : BLOOD NO SITE SPECIAL REQUESTS : NONE CULTURE : NO GROWTH 5 DAYS. REPORT STATUS : FINAL 09/25/2022 TEST:Blood Culture, Second Order STATUS:Auth (Verified) BODY SITE: SOURCE:Blood COLLECTED DATE/TIME:09/19/22 11:14 PM Blood Culture, Second Order SPECIMEN DESCRIPTION : BLOOD NO SITE SPECIAL REQUESTS : NONE CULTURE : NO GROWTH 5 DAYS. REPORT STATUS : FINAL 09/25/2022 Radiology Reports * Exam Date Time Procedure Performing Provider Status 09/22/22 4:28 PM Chest Portable Shavon Moreno; Au th (Verified) Notes: (Chest Portable) Reason For Exam: Shortness of Breath RESULT: Chest Portable Chest Portable CLINICAL INDICATION: Reason: Shortness of Breath; Clinical Question(s): Other:; hypoxia COMPARISON: Chest x-ray, 09/19/2022. Chest CT, 09/15/2022. FINDINGS: The cardiac silhouette is within normal limits. Hilar and mediastinal contours are normal. Emphysematous changes are seen with patchy left retrocardiac opacity. There is no pleural effusion, pneumothorax, or evidence of CHF. No acute osseous abnormality is noted. Fixation hardware is again seen along the right 7th-9th ribswith displaced superior screw. There is deformity of the distal right clavicle partially imaged. IMPRESSION: Emphysema with patchy left cardiac opacity, which may represent atelectasis or pneumonia. WSN: [id number] Ordering Physician: Judi Duff Dictated By: Ivy Amado MD Dictated Date/Time: 09/22/22 4:42 pm Reviewed By: Ivy Amado MD Signed By: Ivy Amado MD Signed Date/Time: 09/22/22 4:42 pm Transcribed By: BERENICE Transcribed Date/Time: 09/22/22 4:39 pm * Exam Date Time Procedure Performing Provider Status 09/19/22 4:16 AM Chest 2 Views Frontal and Lat Rodriguez , Yessica; Auth (Verified) Notes: (Chest 2 Views Frontal and Lat) Reason For Exam: Shortness of Breath, Fever;Other: RESULT: Chest 2 Views Frontal and Lat Chest 2 Views Frontal and Lat INDICATION: Shortness of breath and abdominal pain. Multiple medical problems including COPD. COMPARISON: 08/07/2022 FINDINGS: LINES AND TUBES: None. LUNGS AND PLEURA: Clear lungs without edema or pneumonia (skinfold projects over the right upper chest). No pleural effusion. No pneumothorax. HEART, MEDIASTINUM AND MAMADOU: Heart is normal in size. Normal mediastinal and hilar contour. BONES AND SOFT TISSUES: Stable right rib hardware and healed right lateral clavicle fracture. No acute findings. IMPRESSION: No acute abnormality. WSN: [id number] Ordering Physician: Gonzalo Bolton Dictated By: Cristóbal Jones MD Dictated Date/Time: 09/19/22 8:43 am Reviewed By: Cristóbal Jones MD Signed By: Cristóbal Jones MD Signed Date/Time: 09/19/22 8:43 am Transcribed By: BERENICE Transcribed Date/Time: 09/19/22 8:41 am * Exam Date Time Procedure Performing Provider Status 09/19/22 4:16 AM Shoulder Min 2 Views Right Rodriguez , F loan; Auth (Verified) Notes: (Shoulder Min 2 Views Right) Reason For Exam: Trauma RESULT: Shoulder Min 2 Views Right Right shoulder, 2 views Hx of Present Illness: abd pain. SOB; Reason: Trauma; Clinical Question(s): Fracture COMPARISON: 09/15/2022 FINDINGS: No fracture or dislocation. Unchanged right rotator cuff arthropathy. Old healed fracture of the distal clavicle in good position and alignment. Intact AC joint. The adjacent rib hardware is intact and there are no acute thoracic findings. IMPRESSION: No acute abnormality. WSN: [id number] Ordering Physician: Gonzalo Bolton Dictated By: Cristóbal Jones MD Dictated Date/Time: 09/19/22 8:40 am Reviewed By: Cristóbal Jones MD Signed By: Cristóbal Jones MD Signed Date/Time: 09/19/22 8:40 am Transcribed By: BERENICE Transcribed Date/Time: 09/19/22 8:39 am Vital Signs Most recent to oldest [Reference Range]: 1 2 3 Height 183 cm (10/01/22 7:57 AM) 183 cm (09/30/22 7:35 PM) 183 cm (09/30/22 9:19 AM) Weight 61.4 kg (09/23/22 4:00 AM) 59.7 kg (09/20/22 4:37 PM) 59.7 kg (09/19/22 8:25 PM) Oxygen Saturation [94-100 %] 99 % (10/02/22 7:00 AM) 96 % (10/01/22 10:00 PM) 94 % (10/01/22 7:57 AM) Pulse Rate [55-90 bpm] 82 bpm (10/02/22 8:52 AM) 82 bpm (10/02/22 7:00 AM) 83 bpm (10/01/22 10:00 PM) Body Mass Index [18.5-24.99 kg/m2] 17.83 kg/m2 *L* (09/20/22 4:37 PM) 17.83 kg/m2 *L* (09/19/22 8:25 PM) 17.92 kg/m2 *L* (09/19/22 2:07 AM) Blood Pressure [90-138/55-84 mm Hg] 102/63mm Hg (10/02/22 8:52 AM) 102/63mm Hg (10/02/22 7:00 AM) 103/62mm Hg (10/01/22 10:00 PM) Respiratory Rate [16-30 br/min] 16 br/min (10/02/22 9:32 AM) 16 br/min (10/02/22 8:53 AM) 18 br/min (10/02/22 7:00 AM) Temperature [96.8-100.4 DegF] 97.8 DegF (10/02/22 7:00 AM) 98.4 DegF (10/01/22 10:00 PM) 98.1 DegF (10/01/22 7:57 AM) Liters per Minute 4 L/min (10/01/22 7:57 AM) 5 L/min (09/29/22 7:44 AM) 5 L/min (09/28/22 8:12 PM) Mode of Delivery (Oxygen) Room air (10/02/22 7:00 AM) Room air (10/01/22 10:00 PM) Nasal cannula (10/01/22 7:57 AM) Blood pressure sites Arm, right (10/02/22 7:00 AM) Arm, right (10/01/22 10:00 PM) Arm, right (10/01/22 7:57 AM) Temperature Route Oral (10/02/22 7:00 AM) Oral (10/01/22 10:00 PM) Oral (10/01/22 7:57 AM) Dry Weight 60 kg (09/19/22 8:25 PM) 60 kg (09/19/22 2:14 AM) 60 kg (09/19/22 2:07 AM) Weight Obtained Via Patient/family stated (09/19/22 2:07 AM) Dry Weight Obtained Via Patient/family stated (09/19/22 2:07 AM) Social History Social History Type Response Tobacco Use: 4 or less cigar ettes(less than 1/4 pack)/day in last 30 days. Sex XR Shoulder - right GE 2 Views * [employer] , CIS S: TRANSCRIBE Cristóbal Jones MD: VERIFY Event Display: Result: Authored Date: [id number] Right shoulder, 2 views Hx of Present Illness: abd pain. SOB; Reason: Trauma; Clinical Question(s): Fracture COMPARISON: 09/15/2022 FINDINGS: No fracture or dislocation. Unchanged right rotator cuff arthropathy. Old healed fracture of the distal clavicle in good position and alignment. Intact AC joint. The adjacent rib hardware is intact and there are no acute thoracic findings. IMPRESSION: No acute abnormality. WSN: [id number] Ordering Physician: Gonzalo Bolton Dictated By: Cristóbal Jones MD Dictated Date/Time: 09/19/22 8:40 am Reviewed By: Cristóbal Jones MD Signed By: Cristóbal Jones MD Signed Date/Time: 09/19/22 8:40 am Transcribed By: BERENICE Transcribed Date/Time: 09/19/22 8:39 am Note * [employer] , CIS S: TRANSCRIBE Cristóbal Jones MD: VERIFY Event Display: Result: Authored Date: [id number] Chest 2 Views Frontal and Lat INDICATION: Shortness of breath and abdominal pain. Multiple medical problems including COPD. COMPARISON: 08/07/2022 FINDINGS: LINES AND TUBES: None. LUNGS AND PLEURA: Clear lungs without edema or pneumonia (skinfold projects over the right upper chest). No pleural effusion. No pneumothorax. HEART, MEDIASTINUM AND MAMADOU: Heart is normal in size. Normal mediastinal and hilar contour. BONES AND SOFT TISSUES: Stable right rib hardware and healed right lateral clavicle fracture. No acute findings. IMPRESSION: No acute abnormality. WSN: [id number] Ordering Physician: Gonzalo Bolton Dictated By: Cristóbal Jones MD Dictated Date/Time: 09/19/22 8:43 am Reviewed By: Cristóbal Jones MD Signed By: Cristóbal Jones MD Signed Date/Time: 09/19/22 8:43 am Transcribed By: BERENICE Transcribed Date/Time: 09/19/22 8:41 am Portable XR Chest Views * [employer] , CIS S: TRANSCRIBE Ivy Amado MD: VERIFY Event Display: Result: Authored Date: [id number] Chest Portable CLINICAL INDICATION: Reason: Shortness of Breath; Clinical Question(s): Other:; hypoxia COMPARISON: Chest x-ray, 09/19/2022. Chest CT, 09/15/2022. FINDINGS: The cardiac silhouette is within normal limits. Hilar and mediastinal contours are normal. Emphysematous changes are seen with patchy left retrocardiac opacity. There is no pleural effusion, pneumothorax, or evidence of CHF. No acute osseous abnormality is noted. Fixation hardware is again seen along the right 7th-9th ribswith displaced superior screw. There is deformity of the distal right clavicle partially imaged. IMPRESSION: Emphysema with patchy left cardiac opacity, which may represent atelectasis or pneumonia. WSN: [id number] Ordering Physician: Judi Duff Dictated By: Ivy Amado MD Dictated Date/Time: 09/22/22 4:42 pm Reviewed By: Ivy Amado MD Signed By: Ivy Amado MD Signed Date/Time: 09/22/22 4:42 pm Transcribed By: BERENICE Transcribed Date/Time: 09/22/22 4:39 pm Patient Care team information Personnel Name: Jorge Garcia III, MD Address: Address: [address] [place] [id number]
--- OUTSIDE RECORDS SUMMARY | 2023-08-15 20:30 | XMS_ITS | Continuity of Care Document ---
Author Name Unknown Organization [facility] ter Address [address] [place] [id number]- Care Team Providers Care Line Supply Name Role Phone Jose LEE MD, Jorge Tsang Primary Care Physician Encounter [facility] Date(s): 04/27/22 - 05/01/[address] [address]- Encounter Diagnosis COPD exacerbation(Final) - 04/27/22 Discharge Disposition: Discharged to Hospice-Home (routine care Attending Physician: Dannielle Barajas MD Admitting Physician: Zak Barillas MD Referring [...] Every 6 hours, PRN for Pain , Severe, Routine, 04/28/22 10:00:00 EDT Start Date: 04/28/22 Stop Date: 05/02/22 Status: Discontinued Dilaudid Inj 1 mg, Injection, IV Push Slowly, Every 4 hours, PRN for Other, breakthrough pain despite oral narcotics, Routine, 04/28/22 13:30:00 EDT Start Date: 04/28/22 Stop Date: 05/02/22 Status: Discontinued docusate sodium 100 mg oral [...] A DAY Start Date: 04/27/22 Status: Ordered gabapentin 300 mg oral capsule 300 mg, Capsule, By Mouth, 05/01/22 9:00:00 EDT Start Date: 05/01/22 Stop Date: 05/01/22 Status: Completed HYDROmorphone 2 mg oral tablet 1 tablet = 2 mg, By Mouth, Every 8 hours, for 2 days, TAKE 1 TABLET BY MOUTH EVERY 8 HOURS NEEDED FOR PAIN SEVERE, # 6 tablet, 0 Refills, Acute 05/03/22 14:32:00 EDT, 05/01/22 14:32:00 EDT, Tablet, [facility], Partial fill upon patien... Start Date: 05/01/22 Stop Date: 05/03/22 Status: Ordered Incruse Ellipta 62.5 mcg/inh inhalation [...] 0 Refills, Maintenance, 05/01/22 14:26:00 EDT, Tablet, [facility], Partial fill upon patient request if the prescription is f... Start Date: 05/01/22 Stop Date: 05/04/22 Status: Ordered Symbicort 160mcg/4.5mcg Inhaler INHALE 2 PUFFS INTO THE LUNGS TWICE A DAY Start Date: 04/27/22 Status: Ordered tiZANidine 2 mg oral tablet TAKE 1/2 TABLET BY MOUTH 3 TIMES A DAY Start Date: 04/27/22 Status: Ordered Tylenol 325 mg oral tablet 975 mg, Tablet, By Mouth, 05/01/22 9:00:00 EDT Start Date: 05/01/22 Stop Date: 05/01/22 Status: Completed Vitamin B1 100 mg oral [...] for Microbiology Reports Name Date Blood Culture 04/27/22 Blood Culture #2 04/27/22 Microbiology Reports TEST:Blood Culture STATUS:Unauthenticated BODY SITE: SOURCE:Blood COLLECTED DATE/TIME:04/27/22 12:04 PM Blood Culture SPECIMEN DESCRIPTION : BLOOD RARM SPECIAL REQUESTS : NONE CULTURE : NO GROWTH 4 DAYS REPORT STATUS : PRELIMINARY REPORT TEST:Blood Culture, Second Order STATUS:Unauthenticated BODY SITE: SOURCE:Blood COLLECTED DATE/TIME:04/27/22 12:04 PM Blood Culture, Second Order SPECIMEN DESCRIPTION : BLOOD LARM SPECIAL REQUESTS : NONE CULTURE : NO GROWTH 4 DAYS REPORT STATUS : PRELIMINARY REPORT Radiology Reports * Exam Date Time Procedure Performing Provider Status 04/27/22 12:53 PM Chest Portable Shavon Paulino; Auth ( Verified) Notes: (Chest Portable) Reason For Exam: Shortness of Breath RESULT: Chest Portable Chest Portable Reason: Shortness of Breath COMPARISON: None. FINDINGS: LINES AND TUBES: None. LUNGS AND PLEURA: Clear lungs. Normal pulmonary vascularity. No right pleural effusion. The left costophrenic angle is outside the field of view but there is nosizable left pleural effusion. No pneumothorax. HEART, MEDIASTINUM AND MAMADOU: Heart is normal in size. Aorta is calcified. BONES AND SOFT TISSUES: Right 7th, 8th and 9th posterior rib plate and screws. A single screw is seen as the posterior right 6th rib. Additional fractures involving posterior right second, left fifth and left sixth ribs. Partially seen multiple compression fractures likely affecting the 6th, 7th and 8th thoracic vertebral bodies. Partially visualized mildly displaced right lateral clavicle fracture. IMPRESSION: No acute cardiopulmonary process. Multiple bilateral rib fractures, thoracic vertebral compression fractures and lateral right clavicular fracture as described above. I have personally reviewed the images and I agree with this report. WSN: [id number] Ordering Physician: Morenita Ramírez Dictated By: Rene Bird MD Dictated Date/Time: 04/27/22 1:25 pm Reviewed By: Kostas Lucero MD Signed By: Kostas Lucero MD Signed Date/Time: 04/27/22 1:30 pm Transcribed By: BERENICE Transcribed Date/Time: 04/27/22 1:18 pm Vital Signs Most recent to oldest [Reference Range]: 1 2 3 4 5 Height 183 cm (05/01/22 12:51 AM) 183 cm (04/30/22 7:28 PM) 183 cm (04/30/22 9:22 AM) Weight 58.2 kg (04/30/22 9:22 AM) 61.8 kg (04/29/22 5:45 PM) 60.6 kg (04/28/22 6:29 PM) Oxygen Saturation [94-100 %] 98 % (05/01/22 7:00 AM) 100 % (05/01/22 12:51 AM) 100 % (04/30/22 7:28 PM) Pulse Rate [55-90 bpm] 91 bpm *H* (05/01/22 7:00 AM) 98 bpm *H* (05/01/22 12:51 AM) 94 bpm *H* (04/30/22 7:28 PM) Body Mass Index [18.5-24.99] 17.38 *L* (04/30/22 9:22 AM) Blood Pressure [90-138/55-84 mm Hg] 156/90mm Hg *H* (05/01/22 7:00 AM) 132/78mm Hg (05/01/22 12:51 AM) 133/85mm Hg (04/30/22 7:28 PM) Respiratory Rate [16-30 br/min] 20 br/min (05/01/22 12:53 PM) 20 br/min (05/01/22 11:17 AM) 20 br/min (05/01/22 10:48 AM) 20 br/min (05/01/22 10:48 AM) 20 br/min (05/01/22 10:48 AM) Temperature [96.8-100.4 DegF] 97.6 DegF (05/01/22 7:00 AM) 97.6 DegF (05/01/22 12:51 AM) 98.1 DegF (04/30/22 7:28 PM) Liters per Minute 4 L/min (05/01/22 7:00 AM) 4 L/min (05/01/22 12:51 AM) 4 L/min (04/30/22 7:28 PM) Mode of Delivery (Oxygen) Nasal cannula (05/01/22 7:00 AM) Nasal cannula (05/01/22 12:51 AM) Nasal cannula (04/30/22 7:28 PM) Blood pressure sites Arm, left (05/01/22 7:00 AM) Arm, right (05/01/22 12:51 AM) Arm, left (04/30/22 7:28 PM) Temperature Route Oral (05/01/22 7:00 AM) Oral (05/01/22 12:51 AM) Oral (04/30/22 7:28 PM) Dry Weight 58.2 kg (04/30/22 9:22 AM) Weight Obtained Via Standing scale (04/30/22 9:22 AM) Bed scale (04/29/22 5:45 PM) Dry Weight Obtained Via Standing scale (04/30/22 9:22 AM)
--- OUTSIDE RECORDS SUMMARY | 2023-08-15 20:30 | XMS_ITS | Continuity of Care Document ---
Author Name Unknown Organization [facility] Address [address] [place] [address]- Care Team Providers Care [employer] Director Name Role Phone Jose LEE MD, Jorge Tsang Primary Care Physician Encounter [facility] [place] Date(s): 02/16/23 - 04/16/23 [facility] [address], [place] [address] Attending Physician: Deepika AMAYA, Donaldo Pereira Admitting Physician: Donaldo Poe MD Referring Physician: Jorge Garcia III, MD Allergies, Adverse Reactions, Alerts Substance Reaction Severity Status naproxen lesions on lips Active Toradol Morphine allergy Metaxalone Naproxen Cephalexin allergy hives Persistent Mild Active Keflex 1 rash Active Skelaxin H/O: migraine Active 1tolerates pip/tazo 11/17 Immunizations Given and Recorded Vaccine Date Status Refusal Reason [id number] 12y+ bivalent booster vax 08/23/22 Recorded SARS-CoV-2 [...] 9:02:00 EDT, 03/19/23 9:02:00 EDT, Patch, [facility]/pharmacy #[id number], Partial fill upon patient request [...] fractures of ribs Confirmed 01/06/11 Active Old NV (myocardial infarction) X 3 Confirmed Active PVD (peripheral vascular disease) Confirmed Active Underweight Confirmed Active 1Cardiac stents 1991, 1995 Social History Social History Type Response Tobacco Use: 4 or less cigar ettes(less than 1/4 pack)/day in last 30 days. Sex Patient Care team information Care Team Personnel Name: Glo Camarena RN Position: [facility] RN Member Role: Primary Care Nurse Name: Fatimah Bennett RN Position: [facility] RN Member Role: Primary Care Nurse Name: Mariely Hardy RN Position: [facility] RN Member Role: Primary Care Nurse Name: Marleen Uriarte RN Position: [facility] RN Member Role: Primary Care Nurse Name: Sydney Zelaya Position: [facility] PCO OFFICE STAFF Member Role: Lifetime Consulting Physician Name: Judd Barahona RN Position: [facility] RN Member Role: Primary Care Nurse Name: Mag Harry RN Position: [facility] RN Member Role: Primary Care Nurse Name: An Blount RN Position: [facility] RN Supv Member Role: Primary Care Nurse Name: Marianna Ng RN Position: [facility] RN Member Role: Primary Care Nurse Name: Avani Odell RN Position: [facility] RN Member Role: Primary Care Nurse Name: Lisbet Hickman RN Position: [facility] RN Member Role: Primary Care Nurse Name: Ruben Bello RN Position: [facility] RN Member Role: Primary Care Nurse Name: Araceli Simon RN Position: [facility] RN Member Role: Primary Care Nurse Name: Moni Dugan RN Position: [facility] RN Member Role: Primary Care Nurse Name: Jorge Garcia III, MD Position: Reference Physician Member Role: PCP Address: Address: [address] [place] [address] [id number] Name: Misty Nguyen RN Position: [facility] RN Member Role: Primary Care Nurse Name: Joyce Cobb Position: [facility] RN Member Role: Primary Care Nurse Name: Sarwat Aj RN Position: [facility] RN Member Role: Primary Care Nurse Name: Cassi Batista RN Position: [facility] RN Member Role: Primary Care Nurse Name: Yanni Holland RN Position: [facility] RN Member Role: Primary Care Nurse Name: Daija Huitron RN Position: [facility] RN Member Role: Primary Care Nurse Name: Ellis Mayfield RN Position: [facility] RN Supv Member Role: Primary Care Nurse Name: Ayah Robison RN Position: [facility] RN Member Role: Primary Care Nurse Name: Kirstin Enriquez RN Position: [facility] RN Member Role: Primary Care Nurse Name: Radha Moreno RN Position: [facility] RN Member Role: Primary Care Nurse Name: Jina Smalls RN Position: [facility] RN Member Role: Primary Care Nurse Name: Laura Clements RN Position: [facility] RN Member Role: Primary Care Nurse Name: Colette Syed RN Position: [facility] RN Member Role: Primary Care Nurse Name: Muriel Daley RN Position: [facility] RN Supv Member Role: Primary Care Nurse Name: Darlyn Alvarez RN Position: [facility] RN Member Role: Primary Care Nurse Name: Zohreh Pink RN Position: [facility] RN Member Role: Primary Care Nurse Name: Sophie Berrios RN Position: [facility] RN Member Role: Primary Care Nurse Name: Grisel Mcgowan RN Position: [facility] RN Member Role: Primary Care Nurse Name: Uyen Mitchell RN Position: [facility] RN Member Role: Primary Care Nurse Name: Nasra Smith NP Position: Reference Physician Member Role: Primary Care Nurse Address: Address: [address] [place] [address] Name: Cindy Grullon RN Position: [facility] RN Supv Member Role: Primary Care Nurse Name: Silas Knox RN Position: [facility] RN Member Role: Primary Care Nurse Name: Elham Lee RN Position: [facility] SHERRILLO RN Member Role: Primary Care Nurse Name: Dariana Mariee RN Position: [facility] RN Member Role: Primary Care Nurse Name: Ana María Cat RN Position: [facility] RN Member Role: Primary Care Nurse Name: Flor Holley Position: [facility] RN Member Role: Primary Care Nurse Name: Bret Aguirre RN Position: [facility] RN Member Role: Primary Care Nurse Name: Ghazal Moreno Position: [facility] RN Member Role: Primary Care Nurse Name: Audra Martinez RN Position: [facility] RN Member Role: Primary Care Nurse Name: Shahbaz Bobo RN Position: [facility] RN Member Role: Primary Care Nurse Name: Jennifer Yin LPN Position: [facility] RN Member Role: Primary Care Nurse Name: Alina Arce RN Position: [facility] RN Member Role: Primary Care Nurse Name: Radha Masterson RN Position: [facility] RN Member Role: Primary Care Nurse Name: Landy Villarreal RN Position: [facility] RN Member Role: Primary Care Nurse Name: Amy Larios RN Position: [facility] RN Member Role: Primary Care Nurse Name: Indira Lindsey RN Position: [facility] RN Member Role: Primary Care Nurse Name: Rosa Elena Pope RN Position: [facility] RN Member Role: Primary Care Nurse Name: Florentino Garcia RN Position: [facility] RN Member Role: Primary Care Nurse Name: Cristel Moreno RN Position: [facility] RN Member Role: Primary Care Nurse Name: Rosa Elena De León RN Position: [facility] Dog Sitter Member Role: Primary Care Nurse Name: Tulio Pnia RN Position: [facility] RN Member Role: Primary Care Nurse Name: Maximiliano Claros RN Position: [facility] RN Member Role: Primary Care Nurse Name: Narda Barnes RN Position: [facility] RN Member Role: Primary Care Nurse Name: Zoë Cisse RN Position: [facility] RN Member Role: Primary Care Nurse Name: Pat Bowers RN Position: [facility] SN RN Member Role: Primary Care Nurse Name: Ruy Salcido RN Position: [facility] RN Member Role: Primary Care Nurse Name: Hilaria Aparicio RN Position: [facility] RN Member Role: Primary Care Nurse Name: Carly Rosado RN Position: [facility] RN Supv Member Role: Primary Care Nurse Name: Taryn Rosado RN Position: [facility] RN Member Role: Primary Care Nurse Name: Sydney Rosado RN Position: [facility] RN Member Role: Primary Care Nurse Name: Uriel Dumont Position: [facility] RN Member Role: Primary Care Nurse Name: Selene Vazquez RN Position: [facility] RN Member Role: Primary Care Nurse Name: Dariana Becerra RN Position: [facility] RN Member Role: Primary Care Nurse Name: Leyla Verma LPN Position: [facility] RN Member Role: Primary Care Nurse Name: Rody Mays RN Position: [facility] RN Member Role: Primary Care Nurse Name: Marielos Mixon RN Position: [facility] RN Member Role: Primary Care Nurse Name: Radha Flores RN Position: [facility] RN Member Role: Primary Care Nurse Name: Leona Alvarez RN Position: [facility] RN Member Role: Primary Care Nurse Name: Rose Kyle RN Position: [facility] Dog Sitter Member Role: Primary Care Nurse Name: Aimee Salamanca RN Position: [facility] RN Member Role: Primary Care Nurse Name: Jacobo Caceres Position: [facility] RN Member Role: Primary Care Nurse Care Team Related Persons Name: STEVENSON HAMM Address: home [address] [place] [address] Name: MELINA VARMA Address: [place] [address] Name: GARRY VARMA Address: home [address] Name: BRIEN LANCASTER Address: home [address] [place] [address]
--- OUTSIDE RECORDS SUMMARY | 2023-08-15 20:30 | XMS_ITS | Continuity of Care Document ---
Author Name Unknown Organization [facility] ter Address [address] [place] [id number]- Care Team Providers Care [employer] Name Role Phone Jose LEE MD, Jorge Tsang Primary Care Physician [phone] Encounter [facility] [place] Date(s): 05/29/22 - 06/01/[address] [address] Discharge Disposition: A-D/C Home Attending Physician: Peter Pitts MD Admitting Physician: Liseth AMAYA, Hayley Gamez Referring Physician: Not on Staff, Referring MD [...] 08/17/16 Bubba rded influenza virus vaccine, inactivated 10/6/15 [...] mL, 6 Refills, Maintenance, 07/24/20 16:44:00 EDT, [facility]/pharmacy #[id number], 182, cm, 05/26/20 16:01:00 EDT, Height, 67, kg, 07/05/20 13:57:00 EDT, Dry Weight Start Date: 07/24/20 Status: Ordered albuterol CFC free 90 mcg/inh inhalation aerosol 2, puffs, Inhalation, Every 6 hours, PRN, j44.9, # 1 each, Refills 6, Tot. Refills 6, Maintenance, 07/24/20 16:44:00 EDT, Aerosol, Route to Pharmacy Electronically, [id number], [facility]/pharmacy #[id number], 182, cm, 05/26/20 [...] 06/09/22 12:58:00 EDT, 05/26/22 12:58:00 EDT, Ointment, [facility]/pharmacy #[id number], Partial fill upon patient request if the prescription is for a schedule... Start Date: 05/26/22 Stop Date: 06/09/22 Status: Ordered Dilaudid Inj 1 mg, Injection, IV Push Slowly, Every 4 hours, PRN for Pain , Severe, STAT, 05/29/22 13:05:00 EDT Start Date: 05/29/22 Stop Date: 06/01/22 Status: Discontinued duloxetine 60 mg oral enteric [...] 16:21:00 EDT, Route to Pharmacy Electronically, [facility], Partial fill upon patient request if the prescription is for a sched... Start Date: 05/16/22 Status: Ordered gabapentin 300 mg oral capsule 600 mg, Capsule, By Mouth, 06/01/22 9:00:00 EDT Start Date: 06/01/22 Stop Date: 06/01/22 Status: Completed Incruse Ellipta 62.5 mcg/inh inhalation powder 1 each, Inhalation, Every 24 hours, doses should be taken at least 24 hours apart, j44.9, # 1 each,6 Refills, Maintenance, 03/21/22 9:48:00 EDT, Powder, [facility]/pharmacy #[id number], 182, cm, 03/12/22 4:49:00EDT, [...] 0 Refills, Maintenance, 04/03/22 16:44:00 EDT, Film, [facility]/pharmacy #[id number], Partial fill upon [...] oral tablet 2.5 mg, Tablet, By Mouth, 06/01/22 9:00:00 EDT Start Date: 06/01/22 Stop Date: 06/01/22 Status: Completed loperamide 2 mg oral capsule [...] release 25 mg, XL Tablet, By Mouth, 06/01/22 9:00:00 EDT Start Date: 06/01/22 Stop Date: 06/01/22 Status: Completed Multivitamin Daily, 0 Refills, Maintenance, [...] 04/10/22 11:40:00 EDT, Route to Pharmacy Electronically, [facility]/pharmacy #[id number], Partial fill upon patientrequest if the prescription is for a schedule II op... Start Date: 04/10/22 Status: Ordered Toprol XL 25 mg oral tablet, extended release 25, mg, 1, tablet, By Mouth, Daily, 30, tablet, 6, 6, 03/31/07 11:15:26, Print MARTIN Number, [facility], [address] [place] [id number], [id number], Constant Indicator Start Date: 03/31/07 Stop Date: [...] Exam Date Time Procedure Performing Provider Status 05/28/22 10:32 AM Chest Portable Nneka Miranda; Au th (Verified) Notes: (Chest Portable) Reason For Exam: Shortness of Breath RESULT: Chest Portable Chest Portable Hx of Present Illness: pt states that at 0400 started with breathing problems and severe abdominal pain states that it feels like there is a truck sitting on it, patient states that he also has leg pain and back pain, different because it hurts more then his normal pain; Reason: Shortness of Breath; Clinical Question(s): CHF COMPARISON: 05/15/2022. FINDINGS: LINES AND TUBES: None. LUNGS AND PLEURA: Clear lungs. Previously seen Normal pulmonary vascularity. No pleural effusion. No pneumothorax. HEART, MEDIASTINUM AND MAMADOU: Heart is normal in size. Aorta is tortuous and partially calcified. BONES AND SOFT TISSUES: No acute abnormality. Chronic appearing right distal clavicle fracture and right-sided rib fixation hardware. Chronic healed right posterior rib fractures. Chronic compression fractures in the thoracic vertebral bodies. IMPRESSION: No acute abnormality. WSN: [id number] Ordering Physician: An Thorpe Dictated By: Everardo Perales MD Dictated Date/Time: 05/28/22 10:49 a Reviewed By: Everardo Perales MD Signed By: Everardo Perales MD Signed Date/Time: 05/28/22 10:49 am Transcribed By: BERENICE Transcribed Date/Time: 05/28/22 10:47 am Vital Signs Most recent to oldest [Reference Range]: 1 2 3 Height 183 cm (06/01/22 7:31 AM) 183 cm (06/01/22 7:13 AM) 183 cm (06/01/22 7:12 AM) Weight 51.2 kg (06/01/22 7:31 AM) 51.2 kg (05/29/22 9:23 PM) 53.9 kg (05/28/22 11:26 PM) Oxygen Saturation [94-100 %] 100 % (06/01/22 8:22 AM) 98 % (06/01/22 8:15 AM) 100 % (06/01/22 7:31 AM) Pulse Rate [55-90 bpm] 78 bpm (06/01/22 8:58 AM) 78 bpm (06/01/22 8:22 AM) 78 bpm (06/01/22 8:15 AM) Body Mass Index [18.5-24.99] 15.29 *L* (06/01/22 7:31 AM) 15.29 *L* (05/29/22 9:23 PM) 16.09 *L* (05/28/22 11:26 PM) Blood Pressure [90-138/55-84 mm Hg] 149/80mm Hg *H* (06/01/22 8:58 AM) 149/80mm Hg *H* (06/01/22 8:58 AM) 149/80mm Hg *H* (06/01/22 8:22 AM) Respiratory Rate [16-30 br/min] 18 br/min (06/01/22 10:58 AM) 18 br/min (06/01/22 9:58 AM) 18 br/min (06/01/22 8:58 AM) Temperature [96.8-100.4 DegF] 98.1 DegF (06/01/22 7:31 AM) 98.1 DegF (06/01/22 7:12 AM) 98.3 DegF (06/01/22 4:53 AM) Liters per Minute 3 L/min (06/01/22 8:22 AM) 3 L/min (06/01/22 8:15 AM) 3 L/min (06/01/22 7:31 AM) Mode of Delivery (Oxygen) Nasal cannula (06/01/22 8:22 AM) Nasal cannula (06/01/22 8:15 AM) Nasal cannula (06/01/22 7:31 AM) Blood pressure sites Arm, right (06/01/22 8:22 AM) Arm, right (06/01/22 8:15 AM) Arm, right (06/01/22 7:31 AM) Temperature Route Temporal (06/01/22 7:31 AM) Oral (06/01/22 7:12 AM) Oral (06/01/22 4:53 AM) Dry Weight 63 kg (05/28/22 11:20 PM) 63 kg (05/28/22 3:00 PM) 63 kg (05/28/22 11:44 AM) Weight Obtained Via Bed scale (05/28/22 11:26 PM) Social History Social History Type Response Tobacco Use: 4 or less cigar ettes(less than 1/4 pack)/day in last 30 days. Sex
--- OUTSIDE RECORDS SUMMARY | 2023-08-15 20:30 | XMS_ITS | Continuity of Care Document ---
Author Name Unknown Organization [facility] ter Address [address] [place] [address]- Care Team Providers Care Offbearer Sewer Pipe Name Role Phone Jorge Garcia III, MD Primary Care Physician Encounter [facility] [place] Date(s): 01/20/22 - 01/20/[address] [address]- Encounter Diagnosis Abdominal pain(Final) - 01/20/22 Discharge Disposition: A-D/C Home Attending Physician: Hansel Tinajero MD Admitting Physician: Hansel Tinajero MD Referring Physician: Not on Staff, Referring MD Allergies, Adverse Reactions, Alerts Substance Reaction Severity Status morphine 1 itch Active Toradol hives Active Keflex rash Active Skelaxin H/O: migraine Active naproxen lesions on lips Active : [...] mL, 6 Refills, Maintenance, 07/24/20 16:44:00 EDT, [facility]/pharmacy #[id number], 182, cm, 05/26/20 16:01:00 EDT, Height, 67, kg, 07/05/20 13:57:00 EDT, Dry Weight Start Date: 07/24/20 Status: Ordered albuterol CFC free 90 mcg/inh inhalation aerosol 2, puffs, Inhalation, Every 6 hours, PRN, j44.9, # 1 each, Refills 6, Tot. Refills 6, Maintenance, 07/24/20 16:44:00 EDT, Aerosol, Route to Pharmacy Electronically, [id number], [facility]/pharmacy #[id number], 182, cm, 05/26/20 16:01:00 E... Start Date: 07/24/20 Status: Ordered aspirin 81 mg oral tablet 1 tablet = 81 mg, By Mouth, Daily, # 30 tablet, 0 Refills, Maintenance, 05/23/19 1:08:58 EDT, Tablet Start Date: 05/23/19 Status: Ordered atorvastatin 80 mg oral tablet By Mouth, Daily at supper, 0 Refills, Maintenance, 07/01/14 14:30:54, Tablet Start Date: 07/01/14 Status: Ordered Dilaudid Inj 0.5 mg, Injection, IV Push Slowly, Every 15 minutes for 3 doses/times, PRN for Pain , Moderate, andSBP greater than 100, STAT, 01/20/22 16:52:00 EST, Stop date Limited # of times Start Date: 01/20/22 Stop Date: 01/21/22 Status: Discontinued Docusate/Senna Tablet 1 tablet, By [...] each,6 Refills, Maintenance, 08/13/20 16:33:00 EDT, Powder, [facility]/pharmacy #[id number], 182, cm, 05/26/20 16:01:00 EDT, [...] 0 Refills, Maintenance, 11/01/21 10:44:00 EST, Gum, [facility]/pharmacy #[id number], Partial fill upon patient request if the prescription is for a schedule II opioid drug., 182.8... Start Date: 11/01/21 Status: Ordered oxyCODONE 5 mg oral tablet 5 mg, 1, tablet, By Mouth, Every 6 hours, PRN, for 2 days, # 7 tablet, Refills 0, Tot. Refills 0, Acute 01/22/22 18:14:00 EST, for pain, 01/20/22 18:14:00 EST, Route to Pharmacy Electronically, [facility]/pharmacy #[id number], Partial fill upon patient request if... Start Date: 01/20/22 Stop Date: 01/22/22 Status: Ordered oxyCODONE 5 mg oral tablet 5 mg, Tablet, By Mouth, Once, STAT, 01/20/22 17:20:00 EST, Stop date 01/20/22 17:20:00 EST Start Date: 01/20/22 Stop Date: 01/20/22 Status: Completed Pantoprazole = 40 mg, By Mouth, Daily, [...] 03/31/07 11:15:26, Print MARTIN Number, [facility], [address] [place] [id number], [id number], Constant Indicator Start Date: 03/31/07 Stop Date: 10/27/07 Status: Ordered Tylenol 325 mg oral tablet 650 mg, 2, tablet, By Mouth, Every 4 hours, PRN, # 30 tablet, Refills 0, Tot. Refills 0, Maintenance, Pain , Mild, 11/08/21 12:55:00 EST, Route to Pharmacy Electronically, [facility]/pharmacy #[id number], Partialfill upon patient request if [...] Exam Date Time Procedure Performing Provider Status 01/20/22 2:54 PM XR Femur 2 Views Left Angela Blanco; Auth (Verified) Notes: (XR Femur 2 Views Left) Reason For Exam: Trauma RESULT: Femur 2 Views Left Left femur 2 views dated January 20, 2022. Comparison films are from May 21, 2019. HISTORY: Pain secondary to trauma. FINDINGS: No acute fracture or dislocation is identified. A total hip arthroplasty is noted on the left. A large lateral plate with screws and multiple cerclage wires is demonstrated in the proximal to mid femur. An old healed fracture is noted here. Arterial calcifications are demonstrated. IMPRESSION: Postoperative changes. No evidence of acute osseous abnormality. Examination 94704. Thank you for allowing me to participate in the care of this patient. WSN: [id number] Ordering Physician: Gonzalo Bolton Dictated By: Jeff Rosa MD Dictated Date/Time: 01/20/22 4:01 pm Reviewed By: Jeff Rosa MD Signed By: Jeff Rosa MD Signed Date/Time: 01/20/22 4:01 pm Transcribed By: BERENICE Transcribed Date/Time: 01/20/22 4:01 pm * Exam Date Time Procedure Performing Provider Status 01/20/22 2:54 PM Pelvis 1 or 2 Views Angela Blanco; Jacinto ut (Verified) Notes: (Pelvis 1 or 2 Views) Reason For Exam: Trauma RESULT: Pelvis 1 or 2 Views AP pelvis dated January 20, 2022. Comparison films are from May 21, 2019. HISTORY: Pain secondary to trauma. FINDINGS: This examination shows a total hip arthroplasty on the left. In addition, a lateral plateand multiple screws is noted. There has been significant resorption of bone density in the left greater trochanter when compared with the previous examination. This mass evaluation of a fracture here very limited. No fracture of the remaining pelvis is appreciated. Evaluation is somewhat limited due to contrast material in the urinary bladder. Postoperative changes in the lower lumbar spine and lumbosacral junction are demonstrated. Arterial calcifications are seen. A left external iliac artery stent is noted. IMPRESSION: No evidence of acute osseous abnormality on this limited study. Postoperative changes in the left hip. Postoperative changes in the spine. Examination 51853. Thank you for allowing me to participate in the care of this patient. WSN: [id number] Ordering Physician: Gonzalo Bolton Dictated By: Jeff Rosa MD Dictated Date/Time: 01/20/22 3:59 pm Reviewed By: Jeff Rosa MD Signed By: Jeff Rosa MD Signed Date/Time: 01/20/22 3:59 pm Transcribed By: BERENICE Transcribed Date/Time: 01/20/22 3:56 pm * Exam Date Time Procedure Performing Provider Status 01/20/22 2:54 PM Chest 2 Views Frontal and Lat Angela Blanco; Auth (Verified) Notes: (Chest 2 Views Frontal and Lat) Reason For Exam: Chest Pain;Other: RESULT: Chest 2 Views Frontal and Lat Examination: Chest performed on 01/20/2022. History: Shortness of breath. Chest pain Findings: Frontal and lateral views of the chest are compared to a prior study dated 12/31/2021. The cardiac and mediastinal silhouettes are within normal limits. The lungs are clear. Right rib fixation hardware is redemonstrated. Healed left rib fractures are noted. Impression: There is no acute cardiopulmonary disease. WSN: [id number] Ordering Physician: Florentino Chowdhury Dictated By: Mary Bella MD Dictated Date/Time: 01/20/22 2:57 pm Reviewed By: Mary Bella MD Signed By: Mary Bella MD Signed Date/Time: 01/20/22 2:57 pm Transcribed By: BERENICE Transcribed Date/Time: 01/20/22 2:57 pm Vital Signs Most recent to oldest [Reference Range]: 1 2 3 Oxygen Saturation [94-100 %] 100 % (01/20/22 5:38 PM) 100 % (01/20/22 2:08 PM) 100 % (01/20/22 11:37 AM) Pulse Rate [55-90 bpm] 78 bpm (01/20/22 5:38 PM) 87 bpm (01/20/22 2:08 PM) 77 bpm (01/20/22 11:37 AM) Blood Pressure [90-138/55-84 mm Hg] 124/90mm Hg (01/20/22 5:38 PM) 118/77mm Hg (01/20/22 2:08 PM) 114/63mm Hg (01/20/22 11:37 AM) Respiratory Rate [16-30 br/min] 18 br/min (01/20/22 5:38 PM) 18 br/min (01/20/22 5:27 PM) 18 br/min (01/20/22 5:27 PM) Temperature [96.8-100.4 DegF] 98.9 DegF (01/20/22 11:37 AM) Liters per Minute 2 L/min (01/20/22 5:38 PM) 2 L/min (01/20/22 2:08 PM) 2 L/min (01/20/22 11:37 AM) Mode of Delivery (Oxygen) Nasal cannula (01/20/22 5:38 PM) Nasal cannula (01/20/22 2:08 PM) Nasal cannula (01/20/22 11:37 AM) Blood pressure sites Arm, right (01/20/22 5:38 PM) Arm, right (01/20/22 2:08 PM) Arm, right (01/20/22 11:37 AM) Temperature Route Oral (01/20/22 11:37 AM) Social History Social History Type Response Tobacco Use: 2 cigarettes a day . Sex
--- OUTSIDE RECORDS SUMMARY | 2023-08-15 20:30 | XMS_ITS | Continuity of Care Document ---
Author Name Unknown Organization [facility] ter Address [address] [place] [id number]- Care Team Providers Care Internal Controls Analyst Name Role Phone Jose LEE MD, Jorge Tsang Primary Care Physician [phone] Encounter [facility] [place] Date(s): 07/24/21 - 07/31/[address] [address]- Encounter Diagnosis Abdominal pain(Final) - 07/24/21 Hypoxia(Final) - 07/24/21 Shortness of breath(Final) - 07/28/21 Discharge Disposition: Disch/Trans to IP Rehab or unit w/in Hos Attending Physician: Zev Zhao MD Admitting Physician: Ezequiel Marr MD Referring Physician: Not on Staff, Referring [...] Note: VIS GIVEN NO EGG ALLERGY Medications Acetaminophen Tablet 650 mg, Tablet, By Mouth, Every 4 hours, PRN for Pain , Mild, Temperature Greater than 100.5, Routine, 07/24/21 23:36:00 EDT Start Date: 07/24/21 Stop Date: 08/23/21 Status: Ordered albuterol 0.083% inhalation solution 3 [...] 16:44:00 EDT, Aerosol, Route to Pharmacy Electronically, [id number], [facility]/pharmacy #[id number], 182, cm, 05/26/20 [...] 4 hours, PRN Pain , Moderate, for 5 days, # 30 tablet, 0 Refills, Acute 08/05/21 8:53:00 EDT, 07/31/21 8:53:00 EDT, Tablet, Partial fill upon patient request if the prescription is for a schedule II opioid drug. Start Date: 07/31/21 Stop Date: 08/05/21 Status: Ordered Dilaudid 2 mg oral tablet 2 mg, Tablet, By Mouth, Every 4 hours, PRN for Pain , Moderate, Routine, 07/28/21 13:24:00 EDT Start Date: 07/28/21 Stop Date: 08/04/21 Status: Ordered Docusate/Senna Tablet 1 tablet, By [...] 03/31/07 11:15:26, Print MARTIN Number, [facility], [address] [place] [address], [id number], Constant Indicator Start Date: 03/31/07 Stop Date: [...] for Microbiology Reports Name Date Blood Culture 07/24/21 Blood Culture #2 07/24/21 Microbiology Reports TEST:Blood Culture, Second Order STATUS:Auth (Verified) BODY SITE: SOURCE:Blood COLLECTED DATE/TIME:07/24/21 1:30 PM Blood Culture, Second Order SPECIMEN DESCRIPTION : BLOOD R AC SPECIAL REQUESTS : NONE CULTURE : NO GROWTH 5 DAYS. REPORT STATUS : FINAL 07/29/2021 TEST:Blood Culture STATUS:Auth (Verified) BODY SITE: SOURCE:Blood COLLECTED DATE/TIME:07/24/21 1:10 PM Blood Culture SPECIMEN DESCRIPTION : BLOOD R AC SPECIAL REQUESTS : NONE CULTURE : NO GROWTH 5 DAYS. REPORT STATUS : FINAL 07/29/2021 Radiology Reports * Exam Date Time Procedure Performing Provider Status 07/24/21 2:33 PM Chest Portable Alise Lind; Mod ified Notes: (Chest Portable) Reason For Exam: Shortness of Breath RESULT: Chest Portable Chest Portable Reason: Shortness of Breath; Clinical Question(s): CHF COMPARISON: CT 821. FINDINGS: Partially imaged left lower lateral lung field. LINES AND TUBES: None. LUNGS AND PLEURA: Large lung volumes without evidence of focal consolidation. No pleural effusion. No pneumothorax. HEART, MEDIASTINUM AND MAMADOU: Heart is normal in size. Normal upper mediastinal and hilar contour. BONES AND SOFT TISSUES: No acute abnormality. Redemonstrated fixation hardware of the left posterior seventh through ninth ribs with unchanged loose screw seen overlying the right upper lung field. IMPRESSION: No acute abnormality. I have personally reviewed the images and I agree with this report. WSN: [id number] Ordering Physician: Freida Encarnacion Dictated By: Reginaldo Chisholm DO Dictated Date/Time: 07/24/21 4:03 pm Reviewed By: Luis Ritchie MD Signed By: Luis Ritchie MD Signed Date/Time: 07/24/21 4:08 pm Transcribed By: BERENICE Transcribed Date/Time: 07/24/21 2:41 pm Vital Signs Most recent to oldest [Reference Range]: 1 2 3 4 Oxygen Saturation [94-100 %] 100 % (07/31/21 7:40 PM) 99 % (07/31/21 11:51 AM) 99 % (07/31/21 4:17 AM) Pulse Rate [55-90 bpm] 88 bpm (07/31/21 7:40 PM) 82 bpm (07/31/21 11:51 AM) 76 bpm (07/31/21 4:17 AM) Blood Pressure [90-138/55-84 mm Hg] 124/84mm Hg (07/31/21 7:40 PM) 139/80mm Hg *H* (07/31/21 11:51 AM) 145/80mm Hg *H* (07/31/21 4:17 AM) Respiratory Rate [16-30 br/min] 17 br/min (07/31/21 7:54 PM) 18 br/min (07/31/21 7:40 PM) 18 br/min (07/31/21 3:56 PM) 18 br/min (07/31/21 3:56 PM) Temperature [96.8-100.4 DegF] 98.9 DegF (07/31/21 7:40 PM) 98.5 DegF (07/31/21 11:51 AM) 98.3 DegF (07/31/21 4:17 AM) Liters per Minute 3 L/min (07/31/21 7:40 PM) 3 L/min (07/31/21 11:51 AM) 3 L/min (07/31/21 4:17 AM) Mode of Delivery (Oxygen) Nasal cannula (07/31/21 7:40 PM) Nasal cannula (07/31/21 11:51 AM) Nasal cannula (07/31/21 4:17 AM) Blood pressure sites Arm, right (07/31/21 7:40 PM) Arm, right (07/31/21 11:51 AM) Arm, right (07/31/21 4:17 AM) Temperature Route Oral (07/31/21 7:40 PM) Oral (07/31/21 11:51 AM) Oral (07/31/21 4:17 AM) Social History Social History Type Response Tobacco Use: 2 cigarettes a day . Sex
--- OUTSIDE RECORDS SUMMARY | 2023-08-15 20:31 | XMS_ITS | Continuity of Care Document ---
Author Name Unknown Organization [facility] ter Address [address] [place] [address]- Care Team Providers Care Education Manager Name Role Phone Jorge Garcia III, MD Primary Care Physician [place] [facility] [place](s): 09/12/21 - 09/12/[address] [address]- Discharge Disposition: A-D/C Home Attending Physician: Juan Raomn Renteria MD Admitting Physician: Juan Ramon Renteria MD Referring Physician: Not on Staff, Referring [...] 16:44:00 EDT, Aerosol, Route to Pharmacy Electronically, [id number], [facility]/pharmacy #[id number], 182, cm, 05/26/20 [...] 0 Refills, Maintenance, 09/11/21 20:08:00 EDT, Tablet, [facility]/pharmacy #[id number], 182.8, cm, 07/23/21 16:15:00 EDT, Height, 62.18, kg, 07/18/21 8:54:00 EDT, Dry Weight Start Date: 09/11/21 Stop Date: 09/14/21 Status: Ordered Dilaudid Inj 0.5 mg, Injection, IV Push Slowly, Once, STAT, 09/12/21 4:44:00 EDT, Stop date 09/12/21 4:44:00 EDT Start Date: 09/12/21 Stop Date: 09/12/21 Status: Completed Docusate/Senna Tablet 1 tablet, By [...] 11:15:26, Print MARTIN Number, ADS [facility], [address] [place] [id number], [id number], Constant Indicator Start Date: 03/31/07 Stop Date: [...] Exam Date Time Procedure Performing Provider Status 09/12/21 3:25 AM Clavicle Complete Right Josef Ontiveros n; Auth (Verified) Notes: (Clavicle Complete Right) Reason For Exam: Trauma RESULT: Clavicle Complete Right Clavicle Complete Right Hx of Present Illness: pt fall out of bed with R collarbone injury; Reason: Trauma; Clinical Question(s): Fracture COMPARISON: None. FINDINGS: There is a comminuted distal right clavicular fracture with mild superior displacement of the distal fracture fragment I proximally 6 mm. The acromioclavicular relationship is normal. No additional acute fractures are seen. Patient is status post internal fixation of right rib fractures. Calcification in the rotator cuff distribution. There are also atherosclerotic calcifications of the carotid arteries. IMPRESSION: Comminuted distal right clavicular fracture, mildly displaced. WSN: [id number] Ordering Physician: Lena Sofia Dictated By: Zoë Olvera MD Dictated Date/Time: 09/12/21 8:26 am Reviewed By: Zoë Olvera MD Signed By: Zoë Olvera MD Signed Date/Time: 09/12/21 8:26 am Transcribed By: BERENICE Transcribed Date/Time: 09/12/21 8:25 am * Exam Date Time Procedure Performing Provider Status 09/12/21 3:25 AM Shoulder Min 2 Views Right Flaco Ontiveros tlyn; Auth (Verified) Notes: (Shoulder Min 2 Views Right) Reason For Exam: Trauma RESULT: Shoulder Min 2 Views Right Shoulder Min 2 Views Right, 2 views Hx of Present Illness: pt fall out of bed with R collarbone injury; Reason: Trauma; Clinical Question(s): Fracture COMPARISON: Right clavicle series from the same date FINDINGS: Comminuted fracture of the distal right clavicle with mild superior displacement by approximately 6mm of the major distal fracture fragment. No evidence of humeral fracture. Glenohumeral relationship is normal. Patient is status post internal fixation of multiple right rib fractures. There is alsoa healed fracture of the posterior right third rib. Soft tissue calcifications are consistent with calcific tendinopathy of the rotator cuff. Soft tissues are unremarkable. Visualized portions of theright lung demonstrate coarsened interstitial markings. IMPRESSION: Comminuted distal right clavicular fracture. WSN: [id number] Ordering Physician: Lena Sofia Dictated By: Zoë Olvera MD Dictated Date/Time: 09/12/21 8:25 am Reviewed By: Zoë Olvera MD Signed By: Zoë Olvera MD Signed Date/Time: 09/12/21 8:25 am Transcribed By: BERENICE Transcribed Date/Time: 09/12/21 8:22 am Vital Signs Most recent to oldest [Reference Range]: 1 2 3 Oxygen Saturation [94-100 %] 95 % (09/12/21 4:49 AM) 98 % (09/12/21 3:28 AM) 99 % (09/12/21 2:06 AM) Pulse Rate [55-90 bpm] 92 bpm *H* (09/12/21 4:49 AM) 79 bpm (09/12/21 3:28 AM) 77 bpm (09/12/21 2:06 AM) Blood Pressure [90-138/55-84 mm Hg] 154/98mm Hg *H* (09/12/21 4:49 AM) 149/102mm Hg *H* (09/12/21 3:28 AM) 146/77mm Hg *H* (09/12/21 1:52 AM) Respiratory Rate [16-30 br/min] 18 br/min (09/12/21 4:49 AM) 18 br/min (09/12/21 4:48 AM) 16 br/min (09/12/21 3:28 AM) Temperature [96.8-100.4 DegF] 98.1 DegF (09/12/21 2:06 AM) 99.3 DegF (09/12/21 1:52 AM) Liters per Minute 3 L/min (09/12/21 4:49 AM) 3 L/min (09/12/21 3:28 AM) 3 L/min (09/12/21 1:52 AM) Mode of Delivery (Oxygen) Nasal cannula (09/12/21 4:49 AM) Nasal cannula (09/12/21 3:28 AM) Nasal cannula (09/12/21 1:52 AM) Temperature Route Oral (09/12/21 2:06 AM) Oral (09/12/21 1:52 AM) Social History Social History Type Response Tobacco Use: 2 cigarettes a day . Sex
--- OUTSIDE RECORDS SUMMARY | 2023-08-15 20:31 | XMS_ITS | Continuity of Care Document ---
Author Name Unknown Organization [facility] ter Address [address] [place] [address]- Care Team Providers Care Communications Administrator Name Role Phone Jose LEE MD, Jorge Tsang Primary Care Physician [phone] [place] [facility] [place] Date(s): 06/16/22 - 06/18/[address] [address]- Discharge Disposition: A-D/C Home Attending Physician: Rowan Layne MD Admitting Physician: Justa Vicente MD Referring [...] oral capsule 600 mg, Capsule, By Mouth, 06/18/22 9:00:00 EDT Start Date: 06/18/22 Stop Date: 06/18/22 Status: Completed gabapentin 300 mg oral capsule 600 mg, 2, capsule, By Mouth, 3 times a day, # 180 capsule, Refills 0, Tot. Refills 0, Maintenance,05/16/22 16:21:00 EDT, Route to Pharmacy Electronically, [facility], Partial fill upon patient request if the prescription is for a sched... Start Date: 05/16/22 Status: Ordered HYDROmorphone 4 mg oral tablet 4 mg, Tablet, By Mouth, Every 4 hours, PRN for Pain , Moderate, Routine, 06/16/22 10:34:00 EDT Start Date: 06/16/22 Stop Date: 06/18/22 Status: Discontinued Incruse Ellipta 62.5 mcg/inh inhalation [...] opioid drug. Start Date: 04/27/22 Status: Ordered Lisinopril Tablet 2.5 mg, Tablet, By Mouth, 06/18/22 9:00:00 EDT Start Date: 06/18/22 Stop Date: 06/18/22 Status: Completed loperamide 2 mg oral capsule [...] 03/25/22 Status: Ordered oxyCODONE 5 mg oral capsule 1 capsule = 5 mg, By Mouth, Every 6 hours, PRN as needed for pain, # 5 capsule, 0 Refills, Acute 06/19/22 16:00:00 EDT, 06/18/22 12:38:00 EDT, Capsule, [facility]/pharmacy #[id number], Partial fill upon patient request if the prescription is for a schedule II opio... Start Date: 06/18/22 Stop Date: 06/19/22 Status: Ordered pantoprazole 40 mg oral delayed release tablet 1 tablet = 40 mg, By Mouth, Daily Start Date: 04/27/22 Status: Ordered predniSONE 20 mg oral tablet 2 tablet = 40 mg, By Mouth, Daily, start tomorrow 06/19, # 2 tablet, 0 Refills, Acute 06/20/22 12:45:00 EDT, 06/18/22 12:45:00 EDT, Tablet, [facility]/pharmacy #[id number], Partial fill upon patient request if theprescription is for a schedule II opioid drug., 185... Start Date: 06/18/22 Stop Date: 06/20/22 Status: Ordered Symbicort 160mcg/4.5mcg Inhaler 2, puffs, Inhalation, 2 times a day, # 10.2 Gm, Refills 0, Maintenance, 03/08/19 9:01:22 EDT, Aerosol Start Date: 03/08/19 Status: Ordered tiZANidine 2 mg oral tablet 1 mg, 0.5, tablet, By Mouth, 3 times a day, PRN, Spasm Start Date: 04/27/22 Status: Ordered Toprol XL 25 mg oral tablet, extended release 25 mg, XL Tablet, By Mouth, 06/18/22 9:00:00 EDT Start Date: 06/18/22 Stop Date: 06/18/22 Status: Completed Vitamin B1 100 mg oral [...] Multiple fractures of ribs(Confirmed) 01/06/11 Active Old RI (myocardial infarctio n) X 3(Confirmed) Active PVD (peripheral vascular disease)(Confirmed) Active Underweight(Confirmed) Active 1Cardiac stents 1991, 1995 Results Radiology Reports * Exam Date Time Procedure Performing Provider Status 06/17/22 2:05 PM Forearm 2 Views Right Indira Rubio ; Luis M (Verified) Notes: (Forearm 2 Views Right) Reason For Exam: fall from wheelchair 06/15;Pain RESULT: Forearm 2 Views Right Humerus Min 2 Views Right, Forearm 2 Views Right Reason: Pain; fall from wheelchair 06 15; Clinical Question(s): Fracture COMPARISON: Shoulder radiograph dated 06/15/2022. FINDINGS: Redemonstration of chronic right distal clavicle fracture with overriding bone fragments. Rib fixation hardware is again visualized. No acute fractures or bone lesions. 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 No elbow joint effusion. IMPRESSION: No acute fracture. WSN: [id number] Ordering Physician: Judi Duff Dictated By: Everardo Perales MD Dictated Date/Time: 06/17/22 4:26 pm Reviewed By: Everardo Perales MD Signed By: Everardo Perales MD Signed Date/Time: 06/17/22 4:26 pm Transcribed By: BERENICE Transcribed Date/Time: 06/17/22 4:24 pm * Exam Date Time Procedure Performing Provider Status 06/17/22 2:05 PM Humerus Min 2 Views Right Olga Rubio; Auth (Verified) Notes: (Humerus Min 2 Views Right) Reason For Exam: fall from wheelchair 06/15;Pain RESULT: Humerus Min 2 Views Right Humerus Min 2 Views Right, Forearm 2 Views Right Reason: Pain; fall from wheelchair 06 15; Clinical Question(s): Fracture COMPARISON: Shoulder radiograph dated 06/15/2022. FINDINGS: Redemonstration of chronic right distal clavicle fracture with overriding bone fragments. Rib fixation hardware is again visualized. No acute fractures or bone lesions. 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 No elbow joint effusion. IMPRESSION: No acute fracture. WSN: [id number] Ordering Physician: Judi Duff Dictated By: Everardo Perales MD Dictated Date/Time: 06/17/22 4:26 pm Reviewed By: Everardo Perales MD Signed By: Everardo Perales MD Signed Date/Time: 06/17/22 4:26 pm Transcribed By: BERENICE Transcribed Date/Time: 06/17/22 4:24 pm * Exam Date Time Procedure Performing Provider Status 06/15/22 3:00 PM Shoulder Min 2 Views Right Sergojessica Fidencio; Auth (Verified) Notes: (Shoulder Min 2 Views Right) Reason For Exam: Pain RESULT: Shoulder Min 2 Views Right Shoulder Min 2 Views Right, 2 views Hx of Present Illness: PT HAS multiple complaints, epigastric pain, shortness of breath, wearing 02, states was here for same several times this week, no improvement in symptoms. Denies chest pain.; Reason: Pain; Clinical Question(s): Fracture COMPARISON: 09/12/2021 FINDINGS: No fracture or dislocation. There is apparent narrowing of the acromiohumeral interval which could be positional, however it could also represent chronic rotator cuff dysfunction. There is spurring of the acromion, stable sincethe prior examination, which could represent calcific tendinopathy. There is no acute fracture. A chronic healed distal clavicular fracture is present. The visualized lung is clear. Hardware stabilizing several chronic rib fractures is unchanged. IMPRESSION: No acute fracture. Findings could represent chronic rotator cuff dysfunction. Clinical correlation is advised. WSN: [id number] Ordering Physician: Dennys Alvarez Dictated By: Gisela Farley MD Dictated Date/Time: 06/15/22 4:40 pm Reviewed By: Gisela Farley MD Signed By: Gisela Farley MD Signed Date/Time: 06/15/22 4:40 pm Transcribed By: BERENICE Transcribed Date/Time: 06/15/22 4:32 pm * Exam Date Time Procedure Performing Provider Status 06/15/22 3:00 PM Chest 2 Views Frontal and Lat Shavon Paulino; Luis M (Verified) Notes: (Chest 2 Views Frontal and Lat) Reason For Exam: Shortness of Breath, Fever;Other: RESULT: Chest 2 Views Frontal and Lat Chest 2 Views Frontal and Lat CLINICAL INDICATION: Epigastric pain and shortness of breath. COMPARISON: Chest x-ray, 06/14/2022. Chest CT, 06/13/2022. FINDINGS: The cardiac silhouette is within normal limits. Hilar and mediastinal contours are normal. The lungs are clear. There is no pleural effusion, pneumothorax, or evidence of CHF. No acute osseous abnormality is noted. ORIF hardware is seen along the right 7th through 9th ribs with a single loose screw superior to the 7th rib, unchanged from prior exams. Multiple chronic thoracic compression fractures are unchanged. IMPRESSION: No acute cardiopulmonary process. WSN: [id number] Ordering Physician: Dennys Alvarez Dictated By: Ivy Amado MD Dictated Date/Time: 06/15/22 3:13 pm Reviewed By: Ivy Amado MD Signed By: Ivy Amado MD Signed Date/Time: 06/15/22 3:13 pm Transcribed By: BERENICE Transcribed Date/Time: 06/15/22 3:10 pm Vital Signs Most recent to oldest [Reference Range]: 1 2 3 Height 185 cm (06/18/22 6:15 AM) 185 cm (06/17/22 9:07 PM) 185 cm (06/17/22 1:49 PM) Weight 45.8 kg (06/16/22 12:44 AM) 49.9 kg (06/16/22 12:12 AM) Oxygen Saturation [94-100 %] 99 % (06/18/22 9:00 AM) 100 % (06/18/22 6:15 AM) 95 % (06/17/22 9:07 PM) Pulse Rate [55-90 bpm] 87 bpm (06/18/22 9:23 AM) 75 bpm (06/18/22 6:15 AM) 78 bpm (06/17/22 9:07 PM) Body Mass Index [18.5-24.99] 13.38 *L* (06/16/22 12:44 AM) Blood Pressure [90-138/55-84 mm Hg] 126/73mm Hg (06/18/22 9:23 AM) 126/73mm Hg (06/18/22:23 AM) 131/65mm Hg (06/18/22 6:15 AM) Respiratory Rate [16-30 br/min] 16 br/min (06/18/22 12:20 PM) 16 br/min (06/18/22 10:23 AM) 16 br/min (06/18/22 9:23 AM) Temperature [96.8-100.4 DegF] 98.1 DegF (06/18/22 6:15 AM) 97.1 DegF (06/17/22 9:07 PM) 98.3 DegF (06/17/22 1:49 PM) Liters per Minute 3 L/min (06/18/22 9:00 AM) 3 L/min (06/18/22 6:15 AM) 3 L/min (06/17/22 1:00 PM) Mode of Delivery (Oxygen) Nasal cannula (06/18/22 9:00 AM) Nasal cannula (06/18/22 6:15 AM) Room air (06/17/22 9:07 PM) Blood pressure sites Arm, right (06/18/22 6:15 AM) Arm, right (06/17/22 9:07 PM) Arm, left (06/17/22 1:49 PM) Temperature Route Oral (06/18/22 6:15 AM) Oral (06/17/22 9:07 PM) Oral (06/17/22 1:49 PM) Dry Weight 45.8 kg (06/16/22 12:44 AM) Weight Obtained Via Bed scale (06/16/22 12:12 AM) Social History Social History Type Response Tobacco Use: 4 or less cigar ettes(less than 1/4 pack)/day in last 30 days. Sex
--- OUTSIDE RECORDS SUMMARY | 2023-08-15 20:31 | XMS_ITS | Continuity of Care Document ---
Author Name Unknown Organization [facility] Address [address] [place] [address]- Care Team Providers Care Ergonomic Specialist Name Role Phone Jorge Garcia III, MD Primary Care Physician [phone] Encounter [facility] [place] Date(s): 05/28/20 - 09/12/20 [facility] [address] [place] [address]- [facility] Attending Physician: Cheng Marsh MD Admitting Physician: [...] 16:44:00 EDT, Aerosol, Route to Pharmacy Electronically, [id number], [facility] #[id number], 182, cm, 05/26/20 16:01:00 E... [...] each,6 Refills, Maintenance, 08/13/20 16:33:00 EDT, Powder, [facility]/pharmacy #[id number], 182, cm, 05/26/20 16:01:00 EDT, [...] Number, ADS [facility], [address] [place] [address], [phone], Constant Indicator Start Date: 03/31/07 Stop Date: [...]
--- OUTSIDE RECORDS SUMMARY | 2023-08-15 20:31 | XMS_ITS | Continuity of Care Document ---
Author Name Unknown Organization [facility] Address [address] [place] [address]- Care Team Providers Care Stave Hewer Name Role Phone Jorge Garcia III, MD Primary Care Physician [place] [facility] [place](s): 06/08/22 - 09/23/22 [facility] [address] [place] [address]- Attending Physician: Delmar Gonzalez MD Admitting Physician: [...] 16:21:00 EDT, Route to Pharmacy Electronically, [facility], Partial fill upon patient request if the prescription is for a sched... Start Date: 05/16/22 Status: Ordered HYDROmorphone 2 mg oral tablet 1 tablet = 2 mg, By Mouth, 4 times a day, PRN Pain , Severe, 0 Refills, Maintenance, 09/19/22 20:22:00 EDT, Partial fill upon patient request if the prescription is for a schedule II opioid drug. Start Date: 09/19/22 Status: Ordered Incruse Ellipta 62.5 mcg/inh inhalation [...] drug. Start Date: 03/25/22 Status: Ordered warfarin 1 mg oral tablet 3 tablet = 3 mg, By Mouth, Daily, 0 Refills, Maintenance, 09/19/22 20:20:00 EDT, Partial fill upon patient request if the prescription is for a schedule II opioid drug. Start Date: 09/19/22 Status: Ordered Problem List Condition Confirmation Course [...] Jose LEE MD, Jorge Tsang Address: Address: [address] [place] [address]
--- OUTSIDE RECORDS SUMMARY | 2023-08-15 20:31 | XMS_ITS | Continuity of Care Document ---
Author Name Unknown Organization [facility] Address [address] [place] [address]- Care Team Providers Care Solutions Analyst Name Role Phone Jorge Garcia III, MD Primary Care Physician [place] [facility] [place] 01/05/20 - 05/04/20 [facility] [address] [place] [address]- [facility] Attending Physician: Cheng Marsh MD [...] 10:39:00 EST, Aerosol, Route to Pharmacy Electronically, [id number], [facility]/pharmacy #[id number], 182, cm, 12/26/19 9:43:00 [...] 1 each, 0 Refills, Maintenance, 03/24/20 22:05:00EDT, [facility] #[id number], Apply to right knee for pain, [...] 1 Refills, Maintenance, 04/22/20 16:34:00 EDT, Tablet, [facility][id number], 182, cm, 04/22/20 15:28:00 EDT, Height, 56.4, kg, 07/11/19 18:58:00 EDT, DryWeight Start Date: 04/22/20 Status: Ordered predniSONE 10 mg oral tablet See Instructions, 50mg x 2 days, then 40mg x 2 days, then 30mg x 2 days, then 20 mg x 2 days, then 10 mg x 2 days, # 30 tablet, 0 Refills, Acute 05/08/20 15:00:00 EDT, 05/03/20 15:00:00 EDT, [facility]/pharm[facility] #[id number], 182, cm, 04/22/20 15:28:00 EDT, Height,... [...] 6, 03/31/07 11:15:26, Print MARTIN Number, ADS [facility], [address] [place] [address], [phone], Constant Indicator Start Date: 03/31/07 Stop Date: [...]
--- OUTSIDE RECORDS SUMMARY | 2023-08-15 20:31 | XMS_ITS | Continuity of Care Document ---
Author Name Unknown Organization [facility] Address [address] [address]- Care Team Providers Care Aircraft Painter Apprentice Name Role Phone Jose LEE MD, Jorge Tsang Primary Care Physician Encounter [facility] [place] Date(s): 04/22/20 - 04/29/20 [facility] [address] [place] [address]- [facility] Attending Physician: Keegan TRACEY MD, Reginaldo [...] 10:39:00 EST, Aerosol, Route to Pharmacy Electronically, [id number], [facility]/pharmacy #[id number], 182, cm, 12/26/19 9:43:00 EST, Heig... Start Date: 12/26/19 Status: Ordered apixaban = 5 mg, By Mouth, 2 times a day, To start after 7 days of 10 mg dose, 0 Refills, Maintenance, 05/27/19 14:17:22 EDT, Tablet Start Date: 05/27/19 Status: Ordered Senior [facility] Careel ag [facility], See Instructions, # 1 box, Refills [...] 1 each, 0 Refills, Maintenance, 03/24/20 22:05:00EDT, [facility]/pharmacy #[id number], Apply to right knee for [...] 1 Refills, Maintenance, 04/22/20 16:34:00 EDT, Tablet, [facility]/pharmacy #[id number], 182, cm, 04/22/20 15:28:00 EDT, Height, 56.4, kg, 07/11/19 18:58:00 EDT, DryWeight Start Date: 04/22/20 Status: Ordered Senna 8.6 mg oral tablet [...] 6, 03/31/07 11:15:26, Print MARTIN Number, [facility] [address] [place] [address], [phone], Constant Indicator Start Date: 03/31/07 Stop Date: [...] oldest [Reference Range]: 1 Height 182 cm (04/22/20 3:28 PM) Weight 67.27 kg (04/22/20 3:28 PM) Body Mass Index [18.5-24.99] 20.31 (5/26/20 3:28 PM) Weight Obtained Via Patient/family state d (04/22/20 3:28 PM) Social History Social History Type Response Tobacco Use: Former smoker.. Sex
--- OUTSIDE RECORDS SUMMARY | 2023-08-15 20:31 | XMS_ITS | Continuity of Care Document ---
Author Name Unknown Organization [facility] ter Address [address] [place] [id number]- Care Team Providers Care Dean Of Men Name Role Phone Not on Staff, PCP Primary Care Physician Unavail able Encounter [facility] Date(s): 06/14/23 - 06/21/[address] [id number]- Encounter Diagnosis COPD exacerbation(Final) - 06/14/23 Cellulitis due to MRSA(Final) - 06/14/23 Nonhealing surgical wound(Final) - 06/14/23 Discharge Disposition: A-D/C Home Attending Physician: Judi Duff MD Admitting Physician: Justa Vicente MD Referring [...] virus vaccine, inactivated 1 10/14/06 Gi rox [id number] 12y+ bivalent booster vax 08/23/22 Recorded SARS-CoV-2 [...] opioid drug. Start Date: 07/03/22 Status: Ordered Acetaminophen Tablet 650 mg, Tablet, By Mouth, Every 4 hours, PRN for Pain , Mild, Temperature Greater than 100.5, Routine, 06/14/23 17:09:00 EDT Start Date: 06/14/23 Stop Date: 06/22/23 Status: Discontinued albuterol 0.042% inhalation solution 3 mL = [...] opioid drug. Start Date: 07/02/22 Status: Ordered Lamar Saline 0.65% nasal gel 1 sprays, Nares, Both, 4 times a day, # 22.5 Gm, 0 Refills, Maintenance, 05/12/23 15:41:00 EDT, [facility]/pharmacy #[id number], Partial fill upon patient request if the prescription is for a schedule II opioid drug., 1 sprays Nares, Both 4 times a day, 183, cm, 0... Start Date: 05/12/23 Status: Ordered collagenase topical 250 u/gm ointment See Instructions, Use over right shoulder wound daily, # 90 Gm, 0 Refills, Maintenance, 06/04/23 11:59:00 EDT, Ointment, [facility]/pharmacy #[id number], Partial fill upon patient request [...] 5 Refills, Maintenance, 04/27/23 13:54:00 EDT, Tablet, [facility], Partial fill upon patient request if the prescription is for a schedule II opioid drug., 183, cm, 04/27/23 7:05:00... Start Date: 04/27/23 Stop Date: 10/24/23 Status: Ordered ferrous sulfate 325 mg oral enteric coated tablet 325 mg, 1, tablet, By Mouth, Daily, # 30 tablet, Refills 1, Tot. Refills 1, Maintenance, 06/04/23 12:19:00 EDT, Route to Pharmacy Electronically, [facility]/pharmacy #[id number], Partial fill upon patient requestif the prescription is for a schedule II opioid rosario... Start Date: 06/04/23 Status: Ordered gabapentin 300 mg oral capsule 600 mg, Capsule, By Mouth, 06/21/23 9:00:00 EDT Start Date: 06/21/23 Stop Date: 06/21/23 Status: Completed gabapentin 300 mg oral capsule 600 mg, 2, capsule, By Mouth, 3 times a day, Refills 0, Maintenance, 01/21/23 10:46:00 EST, Partialfill upon patient request if the prescription is for a schedule II opioid drug. Start Date: 01/21/23 Status: Ordered HYDROmorphone 4 mg oral tablet 1 tablet = 4 mg, By Mouth, Every 4 hours, PRN Pain , Severe, for 3 days, # 18 tablet, 0 Refills, Acute 06/24/23 12:54:00 EDT, 06/21/23 12:54:00 EDT, Tablet, [facility]/pharmacy #[id number], Partial fill upon patient request if the prescription is for a schedule II... Start Date: 06/21/23 Stop Date: 06/24/23 Status: Ordered HYDROmorphone 4 mg oral tablet 4 mg, Tablet, By Mouth, Every 4 hours, PRN for Pain , Severe, Routine, 06/14/23 23:24:00 EDT Start Date: 06/14/23 Stop Date: 06/22/23 Status: Discontinued hydrOXYzine hydrochloride 10 mg oral [...] 06/04/23 11:59:00 EDT, Route to Pharmacy Electronically, [facility]/pharmacy #[id number], Partial fill upon patient request [...] release 25 mg, XL Tablet, By Mouth, 06/21/23 9:00:00 EDT Start Date: 06/21/23 Stop Date: 06/21/23 Status: Completed Metoprolol Succinate ER 25 mg [...] 0 Refills, Maintenance, 06/08/23 13:43:00 EDT, Tablet, [facility]/pharmacy #[id number], Partial fill upon patient request [...] 0 Refills, Maintenance, 05/06/23 9:44:00 EDT, Tablet, [facility]/pharmacy #[id number], Partial fill upon patient request if the prescription is for a schedule II opioid drug., 182, cm, 05/06/23 7:54:00 EDT, Height,... Start Date: 05/06/23 Status: Ordered sodium chloride 0.65% nasal spray 1 sprays, Nares, Both, 5 times a day, dryness, # 1 each, 0 Refills, Maintenance, 05/12/23 15:40:00 EDT, Nasal [place], [facility]/pharmacy #[id number], Partial fill upon patient request [...] Date Wound Superficial Culture W/ Gram Smear (Culture Wound Superficial w/ Gram Smear) 06/15/23 Blood Culture 06/14/23 Blood Culture #2 06/14/23 Microbiology Reports TEST:Superficial Wound Culture STATUS:Auth (Verified) BODY SITE: SOURCE:SWAB1 COLLECTED DATE/TIME:06/15/23 5:39 PM Superficial Wound Culture SPECIMEN DESCRIPTION : SWAB SHOULDER RT SPECIAL REQUESTS : NONE GRAM STAIN : 2+ POLYMORPHONUCLEAR LEUKOCYTES 1+ SQ.EPITHELIAL CELLS NO ORGANISMS SEEN CULTURE : 2+ STAPHYLOCOCCUS AUREUS, METHICILLIN RESISTANT. METHICILLIN RESISTANT STAPH AUREUS SHOULD BE CONSIDERED CLINICALLY RESISTANT TO ALL BETA-LACTAMS. This isolate was identified using Maldi-TOF system These AST results were performed on the Vitek 2 ID and AST system REPORT STATUS : FINAL 06/18/2023 ORGANISM 2+ STAPHYLOCOCCUS AUREUS, METHICILLIN RESISTANT. METHICILLIN [...] TETRACYCLINE RESISTANT TRIMETH/SULFAMETHOX SUSCEPTIBLE VANCOMYCIN SUSCEPTIBLE TEST:Blood Culture, Second Order STATUS:Auth (Verified) BODY SITE: SOURCE:Blood COLLECTED DATE/TIME:06/14/23 1:09 PM Blood Culture, Second Order SPECIMEN DESCRIPTION : BLOOD RHND SPECIAL REQUESTS : NONE CULTURE : NO GROWTH 5 DAYS. REPORT STATUS : FINAL 06/19/2023 TEST:Blood Culture STATUS:Auth (Verified) BODY SITE: SOURCE:Blood COLLECTED DATE/TIME:06/14/23 1:05 PM Blood Culture SPECIMEN DESCRIPTION : BLOOD L HAND SPECIAL REQUESTS : NONE CULTURE : NO GROWTH 5 DAYS. REPORT STATUS : FINAL 06/19/2023 Radiology Reports * Exam Date Time Procedure Performing Provider Status 06/14/23 12:48 PM Shoulder Min 2 Views Right Rajeev Noonan via; Auth (Verified) Notes: (Shoulder Min 2 Views Right) Reason For Exam: Infection RESULT: Shoulder Min 2 Views Right Shoulder Min 2 Views Right, 3 views HX OF PRESENT ILLNESS: from home, c o SOB for 45 minutes, also c o abd pain and tooth pain.; Reason: Infection; Clinical Question(s): Other: COMPARISON: 05/30/2023 FINDINGS: No acute fracture or dislocation. Chronic deformity of the right distal clavicle compatible with remote fracture. Ossification of the coracoclavicular ligament. High riding humeral head. Mild degenerative changes at the glenohumeral and acromioclavicular joints. Partially visualized ORIF hardware involving 3 right ribs. IMPRESSION: No evidence of acute osseous abnormality. WSN: [id number] Ordering Physician: Cholo Yancey Dictated By: William Wilson MD Dictated Date/Time: 06/14/23 12:59 p Reviewed By: William Wilson MD Signed By: William Wilson MD Signed Date/Time: 06/14/23 12:59 pm Transcribed By: BERENICE Transcribed Date/Time: 06/14/23 12:57 pm * Exam Date Time Procedure Performing Provider Status 06/14/23 10:44 AM Chest Portable Florentino Altman; Au th (Verified) Notes: (Chest Portable) Reason For Exam: COPD RESULT: Chest Portable Chest Portable Hx of Present Illness: Shortness of breath. Reason: COPD; Clinical Question(s): Pneumonia COMPARISON: Chest radiograph 06/06/2023 FINDINGS: LINES AND TUBES: No life-support devices are in place. Right IJ central venous catheter has been removed since the prior examination. LUNGS AND PLEURA: Mild bibasilar atelectasis. Normal pulmonary vascularity. No pleural effusion. No pneumothorax. HEART, MEDIASTINUM AND MAMADOU: Heart is normal in size. Normal mediastinal and hilar contour. BONES AND SOFT TISSUES: No acute abnormality. Stable ORIF post-surgical changes involving several right- sided ribs. IMPRESSION: No acute abnormality. I have personally reviewed the images and I agree with this report. WSN: [id number] Ordering Physician: Cholo Yancey Dictated By: Verónica Ball DO Dictated Date/Time: 06/14/23 10:54 a Reviewed By: Devin Flor MD, V Signed By: Devin Flor MD, V Signed Date/Time: 06/14/23 10:59 am Transcribed By: BERENICE Transcribed Date/Time: 06/14/23 10:52 am Vital Signs Most recent to oldest [Reference Range]: 1 2 3 Height 183 cm (06/20/23 2:56 PM) 183 cm (06/20/23 6:29 AM) 183 cm (06/19/23 10:06 PM) Weight 56.2 kg (06/15/23 12:00 PM) Oxygen Saturation [94-100 %] 100 % (06/21/23 5:00 AM) 98 % (06/20/23 9:00 PM) 95 % (06/20/23 2:56 PM) Pulse Rate [55-90 bpm] 81 bpm (06/21/23 9:45 AM) 72 bpm (06/21/23 5:00 AM) 75 bpm (06/20/23 9:00 PM) Body Mass Index [18.5-24.99 kg/m2] 16.78 kg/m2 *L* (06/15/23 12:00 PM) Blood Pressure [90-138/55-84 mm Hg] 149/80mm Hg *H* (06/21/23 9:45 AM) 134/80mm Hg (06/21/23 5:00 AM) 131/64mm Hg (06/20/23 9:00 PM) Respiratory Rate [16-30 br/min] 16 br/min (06/21/23 10:45 AM) 16 br/min (06/21/23 10:45 AM) 16 br/min (06/21/23 10:45 AM) Temperature [96.8-100.4 DegF] 97.6 DegF (06/21/23 5:00 AM) 98 DegF (06/20/23 9:00 PM) 97.5 DegF (06/20/23 2:56 PM) Liters per Minute 3 L/min (06/20/23 9:00 PM) 3 L/min (06/20/23 2:56 PM) 4 L/min (06/20/23 6:29 AM) Mode of Delivery (Oxygen) Room air (06/21/23 5:00 AM) Nasal cannula (06/20/23 9:00 PM) Nasal cannula (06/20/23 2:56 PM) Blood pressure sites Arm, left (06/21/23 5:00 AM) Arm, left (06/20/23 9:00 PM) Arm, left (06/20/23 2:56 PM) Temperature Route Oral (06/21/23 5:00 AM) Oral (06/20/23 9:00 PM) Oral (06/20/23 2:56 PM) Dry Weight 56.2 kg (06/15/23 12:00 PM) Weight Obtained Via Bed scale (06/15/23 12:00 PM) Dry Weight Obtained Via Bed scale (06/15/23 12:00 PM) Social History Social History Type Response Tobacco Use: 4 or less cigar ettes(less than 1/4 pack)/day in last 30 days. Interested in cessation: Yes. Other: Reports smoked at least 30 years, up to 1-2 PPD at one point.. Type: Cigarettes. Sex Male Admission evaluation note * Liseth AMAYA, Hayley Gamez: PERFORM, MODIFY, MODIFY Event Display: Admission Note Authored Date: [id number] Patient: ??ANT VARMA ? Age:??67 Years?Sex:??Male?:??1955?? Chief Complaint/Reason for Consultation from home, c/o SOB for 45 minutes, also c/o abd pain and tooth pain. History of Present Illness 67-year-old male with PMH of COPD on no home oxygen at 2 to 3 L nasal cannula, CAD s/p PCI with 3 stents, LLE DVT, severe PVD s/p left femoral???pop bypass and left femoral endarterectomy, bilateral iliac stent and left common iliac stent, on Eliquis, previous alcohol use disorder, known right shoulder septic arthritis came to the ED with complaints of difficulty breathing. ?? Patient's medical chart reviewed, seen and examined at bedside.?? Patient resting comfortably at his baseline oxygen requirements.?? Patient reports 45 minutes before arrival patient endorses having short of breath while sitting in his wheelchair and letting his dog outside.?? He tried taking deep breaths and using his inhalers and increased his oxygen from 3 to 6 L with no significant improvement.?? Endorses chronic productive cough.?? Denies having any fevers, chills, sore throat, runny nose,nausea, vomiting.?? Patient does endorses having diffuse abdominal pain and states noticed black tarry stool for 2 days.?? No urinary complaints.?? Also complains of his chronic right shoulder pain and nonhealing surgical wound since his rotator cuff surgery. Note???patient has recurrent similar presentations with multiple hospitalizations, extensive work-up has been done with no abnormalities.?? Medical alert was placed to not to give any IV pain medications. ?? Initially in the ED patient remains afebrile, HR 78, RR 19, BP 112/79, saturation 96% on 4 L of nasal cannula.?? On exam right shoulder 4 to 5 cm open wound with surrounding erythema and copious amount of purulent secretion.?? Mild leukocytosis WBC of 12.8, Hgb 8.2, PLT 417, electrolytes normal,BUN/creatinine 20/0.5, blood glucose 99, LFTs normal, lactate 3.1?improved to 1.8, C-19 negative, previous wound cultures done on 05/30 positive for MRSA.?? Chest x-ray no acute abnormalities, shoulder x-ray no evidence of acute osseous abnormalities.?? Patient received vancomycin and his home dose of Dilaudid in the ED.?? Patient will be admitted to inpatient medicine service for further management Review of Systems ?? All the systems are reviewed and are negative, except as above ?? Objective ? Vital Signs?? Temperature: 98.3 DegF (06/15/23 02:17:00) Temperature Route: Oral (06/15/23 02:17:00) Pulse Rate: 82 bpm (06/15/23 02:17:00) Respiratory Rate:??14 br/min??Low (06/15/23 02:17:00) Systolic Blood Pressure: 137 mm Hg (06/15/23 02:17:00) Diastolic Blood Pressure: 71 mm Hg (06/15/23 02:17:00) Blood pressure sites: Arm, left (06/15/23 02:17:00) Mean Arterial Pressure: 93 mm Hg (06/15/23 02:17:00) Pulse Pressure: 66 mm Hg (06/15/23 02:17:00) Oxygen Saturation: 98 % (06/15/23 02:17:00) Liters per Minute: 4 L/min (06/15/23 02:17:00) Mode of Delivery (Oxygen): Nasal cannula (06/15/23 02:17:00) Early Warning Score: 3 (06/15/23 02:17:38) ? Pain Scores?? No qualifying data available. ? Intake/Output? 06/14 16:39 06/15 07:00 06/14 07:00 06/13 07:00 06/12 07:00 ?? 06/15 03:45 06/15 03:45 06/15 06:59 06/14 06:59 06/13 06:59 Intake ?200 ?0 ?200 ?0 ?0 Output ?0 ?0 ?0 ?0 ?0 Net Total ?200 ?0 ?200 ?0 ?0 ? Precautions No Precautions documented.? Physical Exam Gen- not in acute distress,comfortabily lying on bed, speaking in full sentences. HEENT- Normocephalic, Atraumatic, No pallor, icterus Neck-supple, no JVD Heart-S1S2(+),??regular, no murmurs. lungs- Clear, b/l air entry, no wheezing. Abdomen-soft, nontender,nondistended,??bowel sounds present, No guarding. Extremities-pulses palpable. No pedal edema. ??Right shoulder with??4 to 5 cm open wound??with erythema Neurological- AAO??3. No gross focal neurological deficits noted. Psychiatric-patient???s mood is stable. ?? (06/14/2023 10:44 EDT Chest Portable) MPRESSION: ?? No acute abnormality. ? (06/14/2023 12:48 EDT Shoulder Min 2 Views Right) IMPRESSION:? No evidence of acute osseous abnormality.?? Assessment/Plan 67-year-old male with PMH of COPD on no home oxygen at 2 to 3 L nasal cannula, CAD s/p PCI with 3 stents, LLE DVT, severe PVD s/p left femoral???pop bypass and left femoral endarterectomy, bilateral iliac stent and left common iliac stent, on Eliquis, previous alcohol use disorder, known right shoulder septic arthritis came to the ED with complaints of difficulty breathing. Initially in the ED pat ient remains afebrile, HR 78, RR 19, BP 112/79, saturation 96% on 4 L of nasal cannula.?? On exam right shoulder 4 to 5 cm open wound with surrounding erythema and copious amount of purulent secretion.?? Mild leukocytosis WBC of 12.8, Hgb 8.2, PLT 417, electrolytes normal, BUN/creatinine 20/0.5, blood glucose 99, LFTs normal, lactate 3.1?improved to 1.8, C-19 negative, previous wound cultures done on 05/30 positive for MRSA.?? Chest x-ray no acute abnormalities, shoulder x- ray no evidence ofacute osseous abnormalities.?? Patient received vancomycin and his home dose of Dilaudid in the ED.?? Patient will be admitted to inpatient medicine service for further management ? Mild??COPD exacerbation ??(J44.1) Acute on chronic hypoxic respiratory failure Improved after DuoNeb treatments,??currently satting well at 4 L nasal cannula, no wheezing on exam Supplemental oxygen as needed DuoNebs We will continue with the tapering prednisone currently taking 50 mg daily Roflumilast?? Incruse Ellipta Saline nasal spray At home takes Symbicort ?? Cellulitis due to MRSA ??(L03.90) Nonhealing surgical wound ??(T81.89XA) Patient has nonhealing surgical??incision site wound??on the right shoulder??now with surrounding erythema and??discharge.?? Afebrile, mild leukocytosis of 12.8. ??Known history of??right shoulder septic arthritis. Recent superficial wound cultures MRSA positive Wound care We will continue with??vancomycin for now Daily trend fever and WBC curve Follow-up with blood and wound cultures and adjust antibiotics ?? Abdominal pain??with the diarrhea Previously with similar presentation??with, multiple??imaging has been done with no acute findings. Pain control with home medications??Dilaudid 0.4 mg p.o., Tylenol, gabapentin 600 mg 3 times daily We will continue with??loperamide and??dicyclomine Pantoprazole 40 mg daily?? patient endorses black tarry stools for last 2 days but hemoglobin remained stable. ??Likely due toferrous sulfate.?? We will continue to monitor Daily trend H&H, monitor for any signs of bleeding. ? CAD s/p??PCI with [address] HTN HLD Telemetry monitoring We will continue with metoprolol??25 mg daily Imdur??30 mg daily Atorvastatin??80 mg daily ?? Peripheral vascular disease, s/p??left femoropopliteal bypass and left femoral endarterectomy, bilateral iliac stents and left common iliac stents We will continue with Eliquis 5 mg twice daily ?? Alcohol use disorder(F10.20)??likely in remission, will continue to monitor. ??On CIWA protocol.??Continue thiamine FREDERICK???ferrous sulfate Mood disorder???duloxetine 60 mg twice daily,??hydroxyzine as needed ?? Code???full, confirmed with patient Diet???cardiac diet DVT prophylaxis???patient already on Eliquis, VTE guidelines done ?? Patient seen and examined on 06/14/2023 Histories Allergies Allergies ?(Active and Proposed Allergies [...] Metabolic alkalosis Multiple fractures of ribs Old [place] (myocardial infarction) X 3 Pulmonary cachexia due [...] hours?for 30?Days?continue suppressive Doxycyline therapy, f/u with ID/Dr.Gemetessa Duloxetine (duloxetine 60 mg oral enteric coated [...] to give the dose of NARCAN Nasal [place]. Remove t... Pantoprazole (pantoprazole 40 mg oral delayed release tablet)?1?tab(s)?40?Milligram?By Mouth?Daily Pantoprazole (Protonix 40 mg oral delayed release tablet)?1?tab(s)?40?Milligram?By Mouth?Daily PredniSONE (predniSONE 20 mg oral tablet)?See Instructions?3 tab for 2 days, 2.5 tab for 2 days, 2 tab for 2 days, 1.5 tab for 2 days, 1 tab for 2 days then stay on 15mg daily maintanence dose as before PredniSONE (predniSONE 5 mg oral tablet)?3?tab(s)?15?Milligram?By Mouth?Daily?for 30?Days?15 mg daily maintanence dose after the initial taper roflumilast (roflumilast 500 mcg oral tablet)?1?tab(s)?500?Microgram?By Mouth?Daily Sodium Chloride Nasal (sodium chloride 0.65% nasal spray)?1?spray(s)?Nares, Both?5 times a day?dryness Sodium Chloride Nasal (Lamar Saline 0.65% nasal gel)?1?spray(s)?Nares, Both?4 times a day Thiamine (Vitamin B1 100 mg oral tablet)?100?Milligram?1?tablet?By Mouth?Daily umeclidinium (Incruse Ellipta 62.5 mcg/inh inhalation powder)?1?puff(s)?Inhalation?Every 24 hours ? Inpatient Medications Medications (28) Active SCHEDULED: (16) Albuterol/Ipratropium Inhalation Marilin 3mL (Duoneb Inhalation Solution) ??1 vials, BAND Nebulizer, 4 times a day Apixaban 5 mg Tablet (Eliquis) ??5 mg, By Mouth, 2 times a day Atorvastatin 80 mg Tablet (atorvastatin 80 mg oral tablet) ??80 mg, By Mouth, Daily Collagenase Topical Oint (30 Gm) (Collagenase [...] Mouth, Daily PredniSONE 5 mg Tablet (predniSONE 20 mg oral tablet) ??30 mg, By Mouth, Daily Roflumilast 500 mcg Tablet (roflumilast 500 mcg oral tablet) ??500 mcg, By Mouth, Daily Thiamine 100 mg Tablet (Vitamin B1 100 mg oral tablet) ??100 mg, By Mouth, Daily Vancomycin 750 mg/D5W 150 mL (Vancomycin IVPB) ??750 mg 150 mL, IVPB, Every 12 hours CONTINUOUS: (0) PRN: (12) Acetaminophen 325 mg [...] oral capsule) ??2 mg, By Mouth, Every 6 hours Melatonin 3 mg Tablet (melatonin 3 mg oral tablet) ??9 mg, By Mouth, Daily at bedtime NaCl [...] ??80 mg, Chew, 3 times a day Sodium Chloride 0.65% Nasal [place] (Salinex [place]) ??1 sprays, Naris, Left, 4 times a day ? Results Recent Labs BLOOD COUNT & DIFF WBC 12.8 k/mm3 (High)?? 06/14/2023 10:35 RBC 2.92 m/mm3 (Low)?? 06/14/2023 10:35 Hgb 8.2 Gm/dL (Low)?? 06/14/2023 10:35 Hct 28.2 % (Low)?? 06/14/2023 10:35 MCV 96.6 femtoliters (High)?? 06/14/2023 10:35 MCH 28.1 pg ()?? 06/14/2023 10:35 MCHC 29.1 g/dL (Low)?? 06/14/2023 10:35 Platelet Count 417 k/mm3 ()?? 06/14/2023 10:35 RDW-SD 66.1 femtoliters (High)?? 06/14/2023 10:35 MPV 9.2 femtoliters (Low)?? 06/14/2023 10:35 Nucleated RBC (Automated) 0.0 #/100 WBC'S ()?? 06/14/2023 10:35 Abs. NRBC 0.0 k/mm3 ()?? 06/14/2023 10:35 Abs. Neut 10.7 k/mm3 (High)?? 06/14/2023 10:35 Abs. Lymph 0.7 k/mm3 (Low)?? 06/14/2023 10:35 Abs. Carter 1.0 k/mm3 ()?? 06/14/2023 10:35 Abs. Eo 0.4 k/mm3 ()?? 06/14/2023 10:35 Abs. Baso 0.0 k/mm3 ()?? 06/14/2023 10:35 Neut % 83.3 % (High)?? 06/14/2023 10:35 Lymph % 5.3 % (Low)?? 06/14/2023 10:35 Carter % 7.5 % ()?? 06/14/2023 10:35 Eos % 3.0 % ()?? 06/14/2023 10:35 Baso % 0.2 % ()?? 06/14/2023 10:35 Imm Gran 0.7 % ()?? 06/14/2023 10:35 Abs. Imm Gran 0.1 k/mm3 ()?? 06/14/2023 10:35 ?? CHEM GENERAL Sodium 148 mmol/L (High)?? 06/14/2023 10:35 Potassium 4.9 mmol/L ()?? 06/14/2023 10:35 Chloride 105 mmol/L ()?? 06/14/2023 10:35 Bicarbonate Level 33 mmol/L (High)?? 06/14/2023 10:35 Anion Gap 10 ()?? 06/14/2023 10:35 Glucose Level 99 mg/dL ()?? 06/14/2023 10:35 BUN 20 mg/dL ()?? 06/14/2023 10:35 Creatinine-Blood 0.5 mg/dL (Low)?? 06/14/2023 10:35 Estimated GFR Creatinine 111 ML/MIN/1.73 M2 ()?? 06/14/2023 10:35 Calcium 8.9 mg/dL ()?? 06/14/2023 10:35 Protein, Total 5.7 Gm/dL (Low)?? 06/14/2023 10:35 Albumin 3.6 Gm/dL ()?? 06/14/2023 10:35 AG Ratio 1.7 ()?? 06/14/2023 10:35 Alkaline Phosphatase 87 units/L ()?? 06/14/2023 10:35 AST (SGOT) 24 units/L ()?? 06/14/2023 10:35 ALT (SGPT) 16 units/L ()?? 06/14/2023 10:35 Bilirubin, Total 0.2 mg/dL ()?? 06/14/2023 10:35 Lactate 1.8 mmol/L ()?? 06/14/2023 13:10 ?? HEME OTHER Hold Lavender Top SPECIMEN DISCARDED AFTER 24 HOURS. ()?? 06/14/2023 13:10 Hold Blue Top SPECIMEN DISCARDED AFTER 4 HOURS. ()?? 06/14/2023 13:10 ?? MISC. CHEMISTRY Hold Green Top SPECIMEN DISCARDED AFTER 1 WEEK ()?? 06/14/2023 13:10 Hold Gel Top SPECIMEN DISCARDED AFTER 1 WEEK ()?? 06/14/2023 13:10 ?? VIROLOGY COVID-19 by RT-PCR NEGATIVE ()?? 06/14/2023 15:13 ? Urinalysis?? No qualifying data available. ?? Microbiology ?? COVID-19 (Novel Coronavirus), Rapid PCR?? Completed?? Source: Nasal Body Site: Nose Collected Dt/Tm: 06/14/2023 15:13 Last Updated Dt/Tm: 06/14/2023 18:17 ? [1]??Shoulder Min 2 Views Right; William Wilson MD 06/14/2023 12:48 EDT Hospital Progress note * Luci Yates RN: SIGN, MODIFY, PERFORM, SIGN, VERIFY Event Display: Progress Note Hospital Authored Date: [id number] Patient: ANT VARMA Age: 67 years Sex: Male : 1955 Associated Diagnoses: None Author: Luci Yates RN Findings Problem Related to Alteration in Integumentary : Alteration in Integumentary/new 06/21/2023 10:00 EDT Alteration in Integumentary Related to Other: R shoulder wound Goals & Outcomes, Integumentary Nutritional intake is adequate for metabolic needs, Pt will maintain adequate fluid & nutritional balance, Pt will maintain intact skin integrity, Wound will progress towards healing Interventions, Integumentary Cleanse all wounds with Normal Saline, Collaborate w/ provider for PT/OT consults, Consult Wound Care as needed for further interventions, Encourage & assist pt to change position frequently, Encourage & assist with range of motion exercises, Encourage family participation in pt's care as they are able, Keep skin clean & dry, Teach Pt/caregiver s/s of infec tion, Teach Pt/S.O. risks of & measures to prevent skin breakdown BH Goals/Interventions, Integumentary Yes Integumentary, Problem Start 06/15/2023 19:25 Reviewed plan with, Integumentary Patient Patient Progression, Integumentary Pt progressing according to plan . Evaluation P: Alteration in Integumentary Function I: Interventions per care plan E: Patient A+Ox4, reporting 9/10 right shoulder pain, given scheduled and PRN PO pain medications, awaiting effect at this time. Patient remains on contact isolation precautions for wounds. Taking medication whole with water, cooperative with all care. Hgb 7.1, Hct 23.8, Workman aware, ordered STAT CBC and Type & Screen, awaiting results at this time, no active signs of bleeding or distress noted. Currently resting in bed at this time, bed in LLP, call giraldo within reach with bed alarm on. . Discharge Information Rehabilitation Discharge : Rehab Discharge Index 06/17/2023 9:18 EDT Comments on treatment indicated 67 y/o male with known right shoulder septic arthritis came to the ED with complaints of difficulty breathing. He was admitted to the hospital for COPD exacerbation. See for gait, stairs, therex and balance. Rec rehab. Walker: distance 10-20 Distance pt will ambulate ~50' with RW and good balance Full chart review completed Yes Plan of care PT Gait training, Transfer training, Therapeutic exercise, Functional Activities, Balance training * Luci Yates RN: PERFORM Event Display: Progress Note Hospital Authored Date: Latest Hgb 8.0, Hct 26.7, MD Workman notified. DC instructions discussed with patient, verbalized understanding. Peripheral IV removed, catheter tip intact. Patient planning to leave with [facility] @ approx 1330. * Darlyn Garza RN: PERFORM, SIGN, VERIFY Event Display: Progress Note Hospital Authored Date: Patient: ANT VARMA Age: 67 years Sex: Male : 1955 Associated Diagnoses: None Author: Darlyn Garza RN Findings Problem Related to Alteration in Integumentary : Alteration in Integumentary/new 06/20/2023 10:00 EDT Alteration in Integumentary Related to Other: R shoulder wound Goals & Outcomes, Integumentary Nutritional intake is adequate for metabolic needs, Pt will maintain adequate fluid & nutritional balance, Pt will maintain intact skin integrity, Wound will progress towards healing Interventions, Integumentary Cleanse all wounds with Normal Saline, Collaborate w/ provider for PT/OT consults, Consult Wound Care as needed for further interventions, Encourage & assist pt to change position frequently, Increase turning frequency if red or blanched areas appear, Interdisciplinary consults as appropriate, Keep bed as flat as tolerated to reduce shearing, Keep linen clean, dryand wrinkle free, Keep skin clean & dry, Maintain sterile technique with dressing changes, Minimize friction, shear and moisture, Monitor reddened areas for continued or increasing reddness, Record extent of impaired skin integrity, Teach Pt/caregiver s/s of infection BH Goals/Interventions, Integumentary Yes Integumentary, Problem Start 06/15/2023 19:25 Reviewed plan with, Integumentary Patient Patient Progression, Integumentary Pt progressing according to plan . Narrative/Incidental P: Alteration in Integumentary I: see above E; Patient is alert and oriented X4. Complaining of pain in his right arm. Received 1 dose of dilaudid PO this shift. Dressing on shoulder changed this shift per truck dispatcher's orders. He is on 3L O2 and receiving scheduled nebulizer treatments. He is currently resting in bed with safety precautions in place.. Discharge Information Rehabilitation Discharge : Rehab Discharge Index 06/17/2023 9:18 EDT Comments on treatment indicated 67 y/o male with known right shoulder septic arthritis came to the ED with complaints of difficulty breathing. He was admitted to the hospital for COPD exacerbation. See for gait, stairs, therex and balance. Rec rehab. Walker: distance 10-20 Distance pt will ambulate ~50' with RW and good balance Full chart review completed Yes Plan of care PT Gait training, Transfer training, Therapeutic exercise, Functional Activities, Balance training * Renee Phillips RN: VERIFY, PERFORM, SIGN Event Display: Progress Note Hospital Authored Date: Patient: ANT VARMA Age: 67 years Sex: Male : 1955 Associated Diagnoses: None Author: Renee Phillips RN Findings Problem Related to Alteration in Integumentary : Alteration in Integumentary/new 06/19/2023 14:00 EDT Alteration in Integumentary Related to Other: R shoulder wound Goals & Outcomes, Integumentary Nutritional intake is adequate for metabolic needs, Pt will maintain adequate fluid & nutritional balance, Pt will maintain intact skin integrity, Wound will progress towards healing Interventions, Integumentary Cleanse all wounds with Normal Saline, Collaborate w/ provider for PT/OT consults, Consult Wound Care as needed for further interventions, Encourage & assist pt to change position frequently, Encourage & assist with range of motion exercises, Interdisciplinary consults as appropriate, Keep skin clean & dry, Maintain sterile technique with dressing changes,Minimize friction, shear and moisture, Monitor reddened areas for continued or increasing reddness,Record extent of impaired skin integrity, Relieve pressure off bony areas, Reposition pt off reddened areas, Teach Pt/caregiver s/s of infection, Teach Pt/S.O. risks of & measures to prevent skin breakdown, Use fecal incontinence appliance if pt incontinent of stool, Use heel & elbow protectors to relieve friction BH Goals/Interventions, Integumentary Yes Integumentary, Problem Start 06/15/2023 19:25 Reviewed plan with, Integumentary Patient Patient Progression, Integumentary Pt progressing according to plan . Narrative/Incidental Pt alert and oriented x4, R shoulder pain present, Dilaudid given. Pt R shoulder dressing wound waschanged, had moderate drainage. Pt has an occasional cough. Pt is on contact precautions for MRSA. Pt last BM was 06/18. Pt is safe and comfortable, all needs met at this time. . Discharge Information Rehabilitation Discharge : Rehab Discharge Index 06/17/2023 9:18 EDT Comments on treatment indicated 67 y/o male with known right shoulder septic arthritis came to the ED with complaints of difficulty breathing. He was admitted to the hospital for COPD exacerbation. See for gait, stairs, therex and balance. Rec rehab. Walker: distance 10-20 Distance pt will ambulate ~50' with RW and good balance Full chart review completed Yes Plan of care PT Gait training, Transfer training, Therapeutic exercise, Functional Activities, Balance training Consult note * Abrahan AMAYA, [facility]: MODIFY, PERFORM Event Display: Consultation Note Authored Date: [id number] Patient: ??ANT VARMA ? Age:??67 Years?Sex:??Male?:??1955?? Referrring Provider Not on Staff, Referring MD Dr. Duff Chief Complaint from home, c/o SOB for 45 minutes, also c/o abd pain and tooth pain. Reason for Consultation Melena History of Present Illness 67-year-old male with history of chronic obstructive pulmonary disease (with chronic respiratory failure), pulmonary cachexia, chronic deep vein thrombosis (on apixaban), coronary artery disease (multiple MIs), peripheral vascular disease, chronic foot ulcer, chronic pain, gastroesophageal reflux disease, hypertension, dyslipidemia, anxiety, depression, alcohol use disorder and tobacco use is being consulted for melena and anemia. ?? Patient presented to the hospital on 06/15 with complaints of difficulty breathing. ??Patient was seen back pain 3 weeks ago on 06/02/2023 when the patient was consulted for dark-colored stools and anemia, without any overt signs of GI bleeding. ?? GI history: Patient is established at [facility] and reportedly has a diagnosis of IBS for which she is ondicyclomine, loperamide. ??Also reported diagnosis of GERD for which she receives PPI. ??We do not currently have these records from his gastroenterology provider. ??Patient states his last colonoscopy was within the [...] PPI therapy effect and no H. pylori organisms. ??Patient was evaluated by GI in June 2022 for acute on chronic anemia however was not thought to have overt GI bleed and anemia was thought to be multifactorial - multiple episodes of nosebleeds, ecchymosis and chronic inflammation ?? Currently patient is pending discharge however has been reported right shoulder pain, secondary to septic arthritis longstanding for which she recently underwent tissue debridement for wound care. ??Patient was noted to have hemoglobin 7.1 g/dL today morning, similar to his baseline. ??Patient's hem oglobin was 7.2 g/dL on admission. ??Patient has not required any transfusions since admission. ??Per nursing, patient has not been noted to have any bleeding or black bowel movements. ??Patient reports that he has had black solid stools for 3 days. However at bedside, patient has dark green stools. Review of Systems ?? ROS was completed and otherwise negative except as noted in the HPI Physical Exam Vitals & Measurements T:??97.6?F?? TMIN:??97.5?F?? TMAX:??98?F?? HR:??81??(Peripheral)?? RR:??17?? RR:??17?? BP:??149/80?? SpO2:??100%?Gen Appearance: NAD, conversing appropriately ?HEENT: conjunctiva wnl, MMM?Heart: S1/S2 heard ?Lungs: No overt resp distress, CTA ?Abdomen: soft, nontender, nondistended?Musculoskeletal:??Rt shoulder bandaged ?Neurological: A/Ox3, no gross deficits ?Extremities: No KOKI, Normal Capillary refill ? Derm: No rash Assessment/Plan 67-year-old male with history of chronic obstructive pulmonary disease (with chronic respiratory failure), pulmonary cachexia, chronic deep vein thrombosis (on apixaban), coronary artery disease (multiple MIs), peripheral vascular disease, chronic foot ulcer, chronic pain, gastroesophageal reflux disease, hypertension, dyslipidemia, anxiety, depression, alcohol use disorder and tobacco use is being consulted for melena and anemia. ?? Melena ruled out Chronic normocytic anemia - unlikely overt GI bleed There is no evidence of acute overt GI bleed on exam??and in setting of recent endoscopies we do not recommend EGD at this time. Anemia is likely multifocal and close to his baseline, has not required any transfusions during this admission. ??Patient has had EGD within the past year, and a colonoscopy 2 years ago at an outside hospital.?? Last iron studies show ferritin 71. ??Patient's dark stools are likely??secondary to iron tablets. ?? Plan: Defer repeating endoscopy for now Patient can resume diet Continue home ASA and apixaban Continue PPI oral??once daily Continue home iron tabs Pt to f/u outpatient with his GI provider ?? Discussed with Dr. Mccarty Problem List/Past Medical History Ongoing Anemia Anxiety CAD - Coronary artery disease Chronic low back pain COPD (chronic obstructive pulmonary disease) COPD exacerbation Deep vein thrombosis (DVT) of left lower extremity Epistaxis GERD (gastroesophageal reflux disease) HTN (hypertension) Hyperlipidemia Hyponatremia Metabolic alkalosis Multiple fractures of ribs Old RI (myocardial infarction) X 3 Pulmonary cachexia due [...] endarterectomy (08/13/2015)???multiple lumbar spine surgeries Medications Inpatient Acetaminophen Tablet, 650 mg, By Mouth, Every 4 hours, PRN atorvastatin 80 mg oral tablet, 80 mg, By Mouth, Daily Bactrim DS Tablet, 1 tablet, By Mouth, 2 times a day Collagenase Topical Oint, 1 application, Topically, Daily dicyclomine 10 mg oral capsule, 10 mg= 1 capsule, By Mouth, 4 times a day Docusate/Senna Tablet, 1 tablet, By Mouth, 2 times a day, PRN Duloxetine, 60 mg, By Mouth, 2 times a day Duoneb Inhalation Solution, 1 vials, BAND Nebulizer, 4 times a day Duoneb Inhalation Solution, 1 vials, BAND Nebulizer, Every 4 hours, PRN Eliquis, 5 mg, By Mouth, 2 times [...] mg, By Mouth, 2 times a day loperamide 2 mg oral capsule, 2 mg, By Mouth, Every 6 hours, PRN melatonin 3 mg oral tablet, 9 mg, By Mouth, Daily at bedtime, PRN Metoprolol Succinate ER 25 mg oral tablet, extended release, 25 mg, By Mouth, Daily MiraLax Powder, 17 Gm= 1 pack/packet, By Mouth, Daily, PRN NaCL 0.9% Flush, 3 mL, IV Push, Every 8 hours NaCL 0.9% Flush, 3 mL, IV Push, Every 8 hours, PRN pantoprazole 40 mg oral delayed release tablet, 40 mg, By Mouth, Daily Robitussin DM Liquid, 10 mL, By Mouth, Every 4 hours, PRN roflumilast 500 mcg oral tablet, 500 mcg, By Mouth, Daily Salinex Table [place], 1 sprays, Naris, Left, 4 times a day, PRN Simethicone Tablet, 80 mg, Chew, 3 times a day, PRN Vashe Topical Solution, 475 mL, Topically, Daily Vitamin B1 100 mg oral tablet, 100 mg, By Mouth, Daily Home acetaminophen 325 mg oral tablet, 650 mg= 2 tablet, By Mouth, Every 4 hours, PRN albuterol 0.042% inhalation solution, 1.25 mg= 3 mL, Neb, Every 4 hours albuterol 90 mcg/inh inhalation powder, 2 puffs, Inhalation, Every 4 hours, PRN atorvastatin 80 mg oral tablet, 80 mg= 1 tablet, By Mouth, Daily Lamar Saline 0.65% nasal gel, 1 sprays, Nares, Both, 4 times a day collagenase topical 250 u/gm ointment, See Instructions dicyclomine 10 mg oral capsule, 10 mg= 1 capsule, By Mouth, 4 times a day doxycycline monohydrate 100 mg oral tablet, 100 mg= 1 tablet, By Mouth, Every 12 hours, 1 refills duloxetine 60 mg oral enteric coated capsule, [...] mg= 1 tablet, By Mouth, Daily predniSONE 5 mg oral tablet, 15 mg= [...] Mother. Lupus: Other. Stroke: Father. Lab Results See HPI Diagnostic Results See HPI * Lindsay FREEMAN, Julia Mayer: MODIFY, MODIFY, PERFORM, MODIFY, MODIFY, MODIFY, MODIFY, MODIFY, MODIFY, MODIFY, MODIFY, MODIFY, MODIFY Event Display: Consultation Note Authored Date: [id number] Patient: ??ANT VARMA ? Age:??67 Years?Sex:??Male?:??1955?? Reason for Consultation Chronic??R shoulder infection??on suppressive doxycycline, antibiotic assistance History of Present Illness Date: 06/18/2023 Infectious Diseases Attending: Dr. Ramirez Requesting Attending/Provider: Dr. Judi Duff Source of Information: CIS, patient? The patient is a 67 year-old man with a past medical history of COPD on home oxygen, CAD s/p stenting, active tobacco use, PVD, prior flail chest??s/p surgical rib fixation, and opiate and benzo dependency with a previously broken narcotic contract.?? Of note, had numerous presentations due to pain, COPD, and other issues (reportedly >60 times in the past year at both [facility] and [facility], with 2 MRNs). He was previously admitted from 07/17 - 08/13/22 with MRSA bacteremia with DIONI without endocarditis.He had an MRI of the right shoulder on 08/27 which was very limited that revealed possible synovitisand a rim-enhancing collection in the deltoid, possibly [...] 09/20 with removal of 20 cc of cloudy yellow fluid.?? Fluid analysis had 83,960 WBCs of which 94% were neutrophils without any crystals and ultimately grew MRSA. He was then taken to the OR on 09/20 for open arthrotomy with incision and drainageof the right shoulder. He was discharged home [...] vancomycin and meropenem. He was admitted to [facility] 01/23-01/27 for COPD exacerbation vs opioid overdose with negative blood cultures at the time. ?? He was admitted to [facility] in March with R shoulder infection. He [...] reviewing multiple packets of faxed records from [facility] unclear total duration of previous daptomycin. Per external med rec and initial [facility] ID consult note it appears that the patient received about 4 weeks of daptomycin followed by doxycycline prescribed on 04/28. Last seen by [facility] ID 05/[address] of R shoulder revealed glenohumeral erosions without effusionor fluid collection thought to be chronic changes. He received about 3 days of daptomycin and was discharged on doxycycline as previous planned by Prisca KIRK for prolonged course/suppression and would also cover any residual osteo/acute infection if there may have been some mild soft tissue findings with initial leukocytosis with plan to follow up with Dr. Gross with [facility]. It appears that hewas continued on his suppressive doxycycline with last dose 05/21.?? He had further admissions 05/22-05/25 and 05/26-05/27 for COPD exacerbations where it appears that his doxycycline was not continued. He presented to the ER 05/29 with shortness of breath, afebrile, leukocytosis of 18.6 thought to be in t he setting of steroid use, discharged home after improvement following 2 nebulizer treatments.?? Hepresented to the ER again on 05/30-06/04 with new weakness, green sputum, and an episode of black tarrystools with diffuse abdominal pain. An x-ray of his right shoulder was completed revealing glenohume ral erosions which were also noted on recent CT from 05/03 without acute osseous findings.?? There was some drainage from a wound on the right shoulder which was cultured growing out tetracycline susceptible MRSA, blood cultures were negative. MRI completed 06/03 (unable to tolerate full study) similarto December study revealing chronic erosion of the humeral head and glenoid with full- thickness cartilage loss involving the entirety of the glenohumeral joint as well as abnormal signal within the proximal humeral metaphysis is indeterminate and could reflect red marrow versus osteomyelitis.; there is no effusion.?? Treated with vancomycin while inpatient and transitioned to suppressive doxycycline on discharge. He was admitted again 06/05-06/08 for COPD exacerbation he remained on suppression. ?? He presented to the ER on 06/14 with difficulty breathing and right shoulder pain.?? X-ray of his right shoulder revealed no evidence of acute osseous abnormality.?? He has remained afebrile and hemodynamic stable.?? WBC count 12.8 now down to 6.7, creatinine 0.5, ESR 27, CRP 13.2, COVID-negative.??Blood cultures with NGTD.?? Superficial right shoulder wound culture was obtained revealing MRSA susceptible to only linezolid, Bactrim, vancomycin.?? He underwent a bedside debridement by wound care??who debrided nonviable tissue revealing a??1.5 cm right shoulder wound with the joint capsule visible at the base of the wound and with undermining to entire periwound edge with surrounding erythemaand serous output. ??ID consulted for??antibiotic??recommendations. ?? Recent Antimicrobials: Doxycycline 06/17 to present Vancomycin 06/14 to 06/17 ?? Medications: Reviewed Antimicrobial Allergies: No known antimicrobial allergies. Family History:??No relevant history of infectious issues in first degree relatives.?? Social History and Infectious Diseases Exposure History: He continues to smoke about??8 to 10 cigarettes/day. ??He denies alcohol??or illicit drug use. ??No recent travel.?? He has been residing mostly in??rehabs although is currently home??with assistance from his family and home care MWF. Review of Systems He denies fever, rigors, abdominal pain, nausea, vomiting, diarrhea, rash. ??He endorses continued right shoulder discomfort and??tarry stools. Physical Exam Vitals & Measurements T:??97.3?F?? TMIN:??97.3?F?? TMAX:??98.2?F?? HR:??77??(Peripheral)?? RR:??18?? BP:??147/80?? SpO2:??100%?? GENERAL:Alert, in no acute distress.?? HEENT: Anicteric, no subconjunctival petechiae. Moist oral mucosa without lesions or thrush. CARDIOVASCULAR:??Regular rate and rhythm. Not able to appreciate any murmurs, rubs, or gallops. No peripheral edema. No peripheral stigmata of endocarditis.?? RESPIRATORY: Coarse lung sounds throughout.?? On O2 via nasal cannula. GASTROINTESTINAL: Non-distended, normoactive bowel sounds, non-tender. MUSCULOSKELETAL: No gross deformity. R shoulder??without warmth or??gross swelling.??Pictured below-now small open wound??probing to joint capsule??with??serosanguineous drainage on bandage. SKIN: ??No diffuse rash present. NEUROLOGICAL/PSYCH:??A&Ox3, grossly intact.?? LINES:??PIV without erythema or pain.? Micro: ??? Superficial right shoulder wound culture 06/15/23: MRSA resistant to tetracyclines, susceptible to trimethoprim/sulfamethoxazole, linezolid, vancomycin ??? Blood cultures 06/14/23: NGTD ? Blood cultures 06/05/23: Negative ??? Superficial wound swab R shoulder 05/30/23: MRSA susceptible to trimethoprim/sulfamethoxazole, linezolid, tetracycline, vancomycin ??? Blood cultures 05/30/23: Negative ??? Blood cultures 04/20/23 x2: Negative ??? [...] year, previously followed by ID for right k[place]isp[place] shoulder septic arthritis since 06/2022 s/p I&D (09/20/22, 01/11/23, 03/29/23) treated with two 6-week courses of vancomycin for MRSA and recently another 6-week course of IVvancomycin and meropenem for Acinetobacter junii, with another course of 4 weeks of daptomycin withplan for doxycycline tail/suppression 03/29-04/28 for MRSA by [facility] ID Dr. Gross.? He was readmitted 06/14 and treated with??4 days of vancomycin and then transitioned back to??his suppressive doxycycline yesterday. Most recent cultures of the R shoulder from a superficial swab reveal tetracycline resistant MRSA for which ID was consulted.?He is now s/p bedside tissue??debrideme nt??by wound care.?? His wound is??tracking to the joint capsule??with serous output on exam, no notations of??purulence??and no cultures were sent by wound care. ??No current??signs of local or systemic infection.?? His mild??leukocytosis??has resolved and he is afebrile.?? Unclear??what the superf icial??wound culture??means with no organisms on Gram stain??and swab of skin although he is known to be colonized with 2 MRSA is 1 of which being??tetracycline resistant.?? The bigger issue is the shoulder itself,??I reviewed a previous surgery note from 05/08??stating that he is not a surgical candidate at [facility].?? He should follow-up with orthopedic surgery at [facility].?? Regarding his??suppressive regimen, can consider transitioning to??Bactrim suppression??as all previous MRSA strains have been susceptible to this. ? Transition??to Bactrim suppression indefinitely ??? Follow-up with??[facility] orthopedics ??? Follow-up with [facility] ID Dr. Gross ? Julia Montoya, [facility]- Division of Infectious Diseases ?? Discussed with ??Héctor (This note was dictated using the [employer] software and any typographical/grammatical errors were notdeliberate. Please contact provider for clarifications.) Problem List/Past Medical History Ongoing Anxiety CAD - Coronary artery disease COPD (chronic obstructive pulmonary disease) Deep vein thrombosis (DVT) of left lower extremity GERD (gastroesophageal reflux disease) HTN (hypertension) Hyperlipidemia Multiple fractures of ribs Old RI (myocardial infarction) X 3 PVD (peripheral vascular disease) Tobacco dependence Procedure/Surgical History ???Arthrotomy, glenohumeral joint, including exploration, [...] Results Test Name Test Result Date/Time WBC 6.7 k/mm3 06/18/2023 01:36 EDT Hgb 7.5 Gm/dL 06/18/2023 01:36 EDT Platelet Count 402 k/mm3 06/18/2023 01:36 EDT Sodium 139 mmol/L 06/18/2023 01:36 EDT Potassium 4.3 mmol/L 06/18/2023 01:36 EDT BUN 12 mg/dL 06/18/2023 01:36 EDT Creatinine-Blood 0.6 mg/dL 06/18/2023 01:36 EDT Diagnostic Results (06/14/2023 12:48 EDT Shoulder Min 2 Views Right) FINDINGS: No acute fracture or dislocation. Chronic deformity of the right distal clavicle compatible with remote fracture. Ossification of the coracoclavicular ligament. High riding humeral head. Mild degenerative changes at the glenohumeral and acromioclavicular joints. Partially visualized ORIF hardware involving 3 right ribs. ?? IMPRESSION:??No evidence of acute osseous abnormality.?? [1] Images R shoulder [1]??Shoulder Min 2 Views Right; William Wilson MD 06/14/2023 12:48 EDT * Bernardo FREEMAN, Dena Nolan: MODIFY, PERFORM Event Display: Consultation Note Authored Date: Patient: ??ANT VARMA ? Age:??67 Years?Sex:??Male?:??1955?? Chief Complaint Right shoulder Reason for Consultation Right shoulder History of Present Illness Patient is a 67-year-old male seen at request the medical service for right shoulder.?? Patient wasadmitted on 06/14 for??COPD exacerbation. ??HPI obtained from chart review and patient. ??Patient isknown to me from previous hospitalizations at [facility].??Patient with history??of??I&D x2 and wound VAC placement to right shoulder at [facility]??due to history of septic arthritis. ??Patient reports??wound is positive for MRSA. ??Pt lives at home; ambulates independently at home but has cane/walker and wheelchair??to use as needed.?? Shoulder x-ray obtained; no evidence of osteomyelitis.?? Superficial wound culture??obtained; growing Staph aureus. ?? PMH: right shoulder??septic arthritis on Doxycycline & NPWT, COPD on home O2 2- 3L with frequentexacerbation, chronic abd and back pain,??CAD, HTN, HLD,??LLE DVT on Eliquis,??anxiety/depression, prior alcohol use disorder, chronic foot ulcers, multiple fractures due to fall, GERD, underweight, old RI x3, PVD, history of smoking greater than [...] Neurologic:??No headache, dizziness. Musculoskeletal:??Right shoulder pain??measuring approximately 6-7/10 Skin:??No rash or itching. See HPI?? Physical Exam Vitals & Measurements T:??97.7?F?? TMIN:??97.7?F?? TMAX:??98.4?F?? HR:??89??(Peripheral)?? RR:??19?? BP:??147/89?? SpO2:??91%?? Constitutional:??WD/thin male in no distress. Mental Status:??Alert/oriented [...] petechiae or purpura.??Wound to anterior right shoulder??measuring approximately??1.5 cm x 0.4 cm x 0.3 cm??covered with??thick layer of pale yellow biofilm slough fibrinous exudate; no necrotic tissue??present. ??Joint capsule visible at base of woundwith undermining to entire periwound edge. ??Slight epiboly??to periwound edge??with mild??pink erythema to surrounding area. ??Large amount of??serous fluid??noted on removed dressing; no malodor Musculoskeletal: [...] fractures due to fall, GERD, underweight, old RI x3, PVD, history of smoking greater than 40 pack years,??DJD, hx osteomyelitis to left fibula who presents with chronic wound to right shoulder.?Wound measuring smaller; sharp debridement is necessary. ?? After patient gives verbal consent,??there was a non-excisional??debridement of right shoulder??with a total area of 0.6sq cm. With the following instrument(s):??a??#3 curette??was used to??removenon-viable tissue/material down to joint capsule. Material removed includes??slough, biofilm, and fibrinous exudate to viable tissue.??No specimens were taken.??Patient tolerated procedure well??withtopical analgesic (lidocaine 2% jelly).??Hemostasis was obtained??with pressure. ?? Post Debridement Measurements: no change in measurements The following dressing was applied after debridement:??see below ?? Cellulitis due to MRSA (L03.90):??-??Managed by medical team -On doxycycline??twice daily ?? Nonhealing surgical wound (T81.89XA):??Irrigate wound with Vashe. Apply Vashe soaked gauze to woundbed for 5 to 10 minutes. Remove. Pat dry. Apply thin layer of Z guard to periwound edge; do not reapply if present. Lightly pack wound with Aquacel AG; leave at least 2 inch tail out for ease of removal. Cover with gauze and Mextra pad (obtain from distribution of not available on unit). Secure with Medipore tape. Change daily and as needed for increased drainage ?? Discharge Planning:??Recommend pt??f/u with local wound care center upon discharge for wound/ulcer management. If referring to [facility], please request through the [employer] list listed as a tab in the Inbox Summary section; select Wound Care - Scheduling to send a communication message requesting an appointment. ?? Please re-consult wound care MD/TODD for deterioration in wound/skin status. ?? 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 Thank you for allowing me to [...] Metabolic alkalosis Multiple fractures of ribs Old RI (myocardial infarction) X 3 Pulmonary cachexia due [...] endarterectomy (08/13/2015)???multiple lumbar spine surgeries Medications Inpatient Acetaminophen Tablet, 650 mg, By Mouth, Every 4 hours, PRN atorvastatin 80 mg oral tablet, 80 mg, By Mouth, Daily Collagenase Topical Oint, 1 application, Topically, Daily dicyclomine 10 mg oral capsule, 10 mg= 1 capsule, By Mouth, 4 times a day Docusate/Senna Tablet, 1 tablet, By Mouth, 2 times a day, PRN Doxycycline Tablet, 100 mg, By Mouth, Every 12 hours Duloxetine, 60 mg, By Mouth, 2 times a day Duoneb Inhalation Solution, 1 vials, BAND Nebulizer, 4 times a day Duoneb Inhalation Solution, 1 vials, BAND Nebulizer, Every 4 hours, PRN Eliquis, 5 mg, By Mouth, 2 times [...] mg, By Mouth, 2 times a day loperamide 2 mg oral capsule, 2 mg, By Mouth, Every 6 hours, PRN melatonin 3 mg oral tablet, 9 mg, By Mouth, Daily at bedtime, PRN Metoprolol Succinate ER 25 mg oral tablet, extended release, 25 mg, By Mouth, Daily MiraLax Powder, 17 Gm= 1 pack/packet, By Mouth, Daily, PRN NaCL 0.9% Flush, 3 mL, IV Push, Every 8 hours NaCL 0.9% Flush, 3 mL, IV Push, Every 8 hours, PRN pantoprazole 40 mg oral delayed release tablet, 40 mg, By Mouth, Daily predniSONE 20 mg oral tablet, 20 mg, By Mouth, Daily Robitussin DM Liquid, 10 mL, By Mouth, Every 4 hours, PRN roflumilast 500 mcg oral tablet, 500 mcg, By Mouth, Daily Salinex Table Grove, 1 sprays, Naris, Left, 4 times a day, PRN Simethicone Tablet, 80 mg, Chew, 3 times a day, PRN Vashe Topical Solution, 475 mL, Topically, Daily Vitamin B1 100 mg oral tablet, 100 mg, By Mouth, Daily Home acetaminophen 325 mg oral tablet, 650 mg= 2 tablet, By Mouth, Every 4 hours, PRN albuterol 0.042% inhalation solution, 1.25 mg= 3 mL, Neb, Every 4 hours albuterol 90 mcg/inh inhalation powder, 2 puffs, Inhalation, Every 4 hours, PRN atorvastatin 80 mg oral tablet, 80 mg= 1 tablet, By Mouth, Daily Lamar Saline 0.65% nasal gel, 1 sprays, Nares, Both, 4 times a day collagenase topical 250 u/gm ointment, See Instructions dicyclomine 10 mg oral capsule, 10 mg= 1 capsule, By Mouth, 4 times a day doxycycline monohydrate 100 mg oral tablet, 100 mg= 1 tablet, By Mouth, Every 12 hours, 1 refills duloxetine 60 mg oral enteric coated capsule, [...] mg= 1 tablet, By Mouth, Daily predniSONE 5 mg oral tablet, 15 mg= [...] Recorded influenza virus vaccine, inactivated 02/03/2023 Recorded [id number] 12y+ bivalent booster vax 08/23/2022 Recorded SARS-CoV-2 [...] Comments : VIS GIVEN ??NO EGG ALLERGY Note * Luci Yates RN: PERFORM Event Display: Discharge/Transfer Note Hospital Authored Date: [id number] Nursing Discharge Note Entered On: 06/21/2023 14:49 EDT Performed On: 06/21/2023 14:48 EDT by Luci Yates RN Nursing Discharge Note 2 Discharge Time : 06/21/2023 14:48 EDT Discharge Level of Care at Discharge : Home/Prison/Foster Care Patient Left Unit Via : Chair Van Patient Accompanied Off Unit with : Ambulance/Chair Van Personnel Handover Given to Transport Personnel : Yes DC Instructions Provided & Signed by Pt : Yes Patient Understands D/C Instructions : Yes Patient Instructions Discharge Signed : Yes Did Pt have Specialty Bed or Wound Vac : No Luci Yates RN - 06/21/2023 14:48 EDT * Judi Duff MD: MODIFY, PERFORM, MODIFY, MODIFY, MODIFY, MODIFY Event Display: Discharge/Transfer Note Hospital Authored Date: [id number] Patient: ??ANT VARMA ? Age:??67 Years?Sex:??Male?:??1955?? Patient Information Discharge Location: [facility] Primary Care Physician: Not on Staff, PCP Admit Date/Time: 06/14/23 16:39 Discharge Disposition Discharge Disposition: Home: No Services?? (once he establishes care with new PCP, he can have HomeServices set up with A) Discharge Diagnosis COPD exacerbation (J44.1) Cellulitis due to MRSA (L03.90) Nonhealing surgical wound (T81.89XA) Anemia, acute on chronic ? _ Discharge Medications Acetaminophen (acetaminophen 325 mg [...] oral tablet)?1?tab(s)?4?Milligram?By Mouth?Every 4 hours?as needed?Pain , Severe?for 3?Days HydrOXYzine (hydrOXYzine hydrochloride 10 [...] to give the dose of NARCAN Nasal Table Grove. Remove t... Pantoprazole (pantoprazole 40 mg oral delayed release tablet)?1?tab(s)?40?Milligram?By Mouth?Daily Pantoprazole (Protonix 40 mg oral delayed release tablet)?1?tab(s)?40?Milligram?By Mouth?Daily PredniSONE (predniSONE 5 mg oral tablet)?3?tab(s)?15?Milligram?By Mouth?Daily?for 30?Days?15 mg daily maintanence dose after the initial taper roflumilast (roflumilast 500 mcg oral tablet)?1?tab(s)?500?Microgram?By Mouth?Daily Sodium Chloride Nasal (sodium chloride 0.65% nasal spray)?1?spray(s)?Nares, Both?5 times a day?dryness Sodium Chloride Nasal (Lamar Saline 0.65% nasal gel)?1?spray(s)?Nares, Both?4 times a day Sulfamethoxazole/Trimethoprim (sulfamethoxazole-trimethoprim 800 mg-160 mg oral tablet)?160?Milligram?By Mouth?2 times a day?for 30?Days?drink plenty of fluids; ??followup with Ortho and ID before this is completed, to discuss long-term plan. May need further weeks of antibiotics. Thiamine (Vitamin B1 100 mg oral tablet)?100?Milligram?1?tablet?By Mouth?Daily umeclidinium (Incruse Ellipta 62.5 mcg/inh inhalation powder)?1?puff(s)?Inhalation?Every 24 hours ? Medications Started Bactrim a 3 day rx for hydromorphone 4mg po q 4 PRN [facility]; I checked [facility] ?? Medications Discontinued ?? doxycycline-- the Bactrim will replace that, based on recent wound cx results Allergies Allergies ?(Active and Proposed Allergies Only) naproxen? (Severity: Unknown severity, Onset: Unknown) ?Reactions: lesions on lips Toradol? (Severity: Persistent Mild, Onset: Unknown) ?Reactions: hives, Cephalexin allergy, Naproxen, Metaxalone, Morphine allergy Keflex? (Severity: Unknown severity, Onset: Unknown) ?Reactions: rash ?Comments: tolerates pip/tazo 11/17 Skelaxin? (Severity: Unknown severity, Onset: Unknown) ?Reactions: H/O: migraine ? PCP Follow-Up/Heads-Up ?? needs a new pcp. once he establishes care, please refer for VNA/wound care Future Appointments Tuesday 9:00 AM EDT ?? With: Stevenson Plascencia DO Where: [facility] [address] [place] [address]- Status: Pending Objective This is a 67 yo gentleman well-known to the hospitalist service, with complex medical history including COPD with chronic respiratory failure, on home O2 longstanding tobacco abuse??3 stents, LLE DVT, severe PVD s/p left femoral???pop bypass and left femoral endarterectomy, bilateral iliac stent and left common iliac stent, on Eliquis, previous alcohol use disorder, known right shoulder septic arthritis came to the ED with complaints of difficulty breathing. He was admitted to the hospital for COPD exacerbation.??Much improved, now eager to go home-- his son has returned from vacation,??and pt feels comfortable returning home. ?? COPD exacerbation ??Acute on chronic hypoxic respiratory failure ??Slightly improved after DuoNeb treatments ??DuoNebs continues on prednisone, will need taper ??Continue home regimen, including Roflumilast ??Incruse Ellipta (sub for home??Symbicort) ??on 2-3 lit o2 at home ?? R shoulder infection, chronic, managed by [facility]--has been treated for MRSA infection; mostrecently, was discharged from [facility] on 06/08 with plan for ...doxycycline for suppressive therapy until follow-up with his ID physician, at [facility]... as d/w [facility] ID No signs of acute worsening infection; will continue to monitor WBC and??vitals for any signs of sepsis ??Wound care to wound on right shoulder- as rec'd by wound care last admission: ...??Cleanse with Vashe. Pat dry. Apply z-guard to periwound.??Apply morena thick layer of Santyl to wound bed. Cover with Mepilex foam dressing. Change daily and PRN for soilage/soaking. ??*If wound is draining through Mepilex foam dressing; Please use Mextra Pad with DSD* ? His most recent cx (superficial) showed MRSA resistant to tetracycline-- ID evaluated, appreciate input-- advised switching to Bactrim for suppression. Needs outpt f/u with his orthopedist and ID team after d/c. ?? Abdominal pain with the diarrhea, resolved Anemia: required transfusion last admission will trend H/H-- Hg now 8 continue PPI He is on anticoagulation Appreciate GI input: .....Patient has had EGD within the past year, and a colonoscopy 2 years ago at an outside hospital.?? Last iron studies show ferritin 71. ??Patient's dark stools are likely??secondary to iron tablets. ?? Plan: Defer repeating endoscopy for now Patient can resume diet Continue home ASA and apixaban Continue PPI oral??once daily Continue home iron tabs Pt to f/u outpatient with his GI provider... ?? CAD s/p PCI with [address], no acute deterioration apparent ??HTN,HLD ??metoprolol 25 mg daily ??Imdur 30 mg daily ??Atorvastatin 80 mg daily ?? Peripheral vascular disease ??s/p left femoropopliteal bypass and left femoral endarterectomy, bilateral iliac stents and left common iliac stents ??We will continue with Eliquis 5 mg twice daily ?? Tobacco: he reports he is in process of quitting, and was most recently down to 3 cigarettes/day; Iexpressed support and congratulated him on this important step, and advised zero cigarettes per day. ?? Mood disorder: stable??duloxetine 60 mg twice daily, hydroxyzine as needed ?? DVT prophylaxis???patient already on Eliquis Dispo:??Looked into rehab, found a possible placement, and d/w weekend CM-- unfortunately, not possible from insurance standpoint (see CM note for details). Now eager to go home?? (once he establishes care with new PCP, he can have Home Services set up with VNA)? Vital Signs?? Temperature: 97.6 DegF (06/21/23 05:00:00) Temperature Route: Oral (06/21/23 05:00:00) Pulse Rate: 81 bpm (06/21/23 09:45:00) Respiratory Rate: 16 br/min (06/21/23 10:45:00) Respiratory Rate: 16 br/min (06/21/23 10:45:00) Respiratory Rate: 16 br/min (06/21/23 10:45:00) Systolic Blood Pressure:??149 mm Hg??High (06/21/23 09:45:00) Diastolic Blood Pressure: 80 mm Hg (06/21/23 09:45:00) Blood pressure sites: Arm, left (06/21/23 05:00:00) Mean Arterial Pressure: 85 mm Hg (06/20/23 14:56:00) Pulse Pressure: 54 mm Hg (06/21/23 05:00:00) Oxygen Saturation: 100 % (06/21/23 05:00:00) Liters per Minute: 3 L/min (06/20/23 21:00:00) Mode of Delivery (Oxygen): Room air (06/21/23 05:00:00) Early Warning Score: 2 (06/21/23 12:36:41) ? . Physical Exam alert, frail, no distress cachectic increased energy, talkative and eager to go home EOMI, anicteric resp non labored 100% on his usual O2 per home no new focal deficits; mobile and independent ?? Pending Results Add On Lab Order ordered on 06/15/2023 Hold Lavender Tube (BB) ordered on 06/18/2023 Type and Screen ordered on 06/21/2023 Patient Education Titles Fall??Prevention?? Understanding Oxygen Therapy?? Understanding Oxygen Therapy?? Traveling with Oxygen?? COPD: Chronic Coughing?? Sulfamethoxazole/Trimethoprim Oral Tablet?? Follow-Up Appointments Added Follow Up ?Time Frame ?Comments The Infectious Disease team advised stopping DOXYCYCLINE and starting BACTRIM (aka TMP-sulfa) to suppress infection in the R shoulder Call [facility] for followup Address: [address] [place] [id number]: ?1 week Julia Montoya?2 to 3 weeks?call for ID followup Jan Gauthier?1 month [facility] PCP Assignment Line [phone] PCP Not on Staff?1 to 2 weeks Please followup with all of your usual doctors. Return if you have bleeding, fever, cannot eat/drink, or have any other worrisome symptoms Please return if you have fever, chest pain, trouble breathing, neck pain, vision changes, or any other worrisome symptoms. drink plenty of fluids; return for evaluation if you notice decreased urination, or have vomiting or other worrisome symptoms Do not take naprosyn, Aleve, Motrin, ibuprofen or other similar medications. OK to take Tylenol, aka acetaminophen. Post Discharge Care Discharge [facility], ??06/21/23 13:05:00 EDT Discharge Prescriptions ?ePrescribed, ??06/21/23 13:05:00 EDT Home Health Face to Face ^HomeHealthFTF Results Microbiology ?? Blood Culture?? Completed?? Source: Blood Body Site: ?? Collected Dt/Tm: 06/14/2023 12:46 Last Updated Dt/Tm: 06/14/2023 12:46 ?SPECIMEN DESCRIPTION : BLOOD ??L HANDSPECIAL REQUESTS : NONECULTURE : NO GROWTH 5 DAYS.REPORT STATUS : FINAL 06/19/2023 Blood Culture #2?? Completed?? Source: Blood Body Site: ?? Collected Dt/Tm: 06/14/2023 12:46 Last Updated Dt/Tm: 06/14/2023 12:46 ?SPECIMEN DESCRIPTION : BLOOD RHNDSPECIAL REQUESTS : NONECULTURE : NO GROWTH 5 DAYS.REPORT STATUS : FINAL 06/19/2023 COVID-19 (Novel Coronavirus), Rapid PCR?? Completed?? Source: Nasal Body Site: Nose Collected Dt/Tm: 06/14/2023 15:13 Last Updated Dt/Tm: 06/14/2023 18:17 Wound Superficial Culture W/ Gram Smear?? Completed?? Source: Swab Body Site: Shoulder Right Collected Dt/Tm: 06/15/2023 17:39 Last Updated Dt/Tm: 06/15/2023 17:39 ?SPECIMEN DESCRIPTION : SWAB SHOULDER RTSPECIAL REQUESTS : NONEGRAM STAIN : 2+ POLYMORPHONUCLEARLEUKOCYTES ?1+ SQ.EPITHELIAL CELLS ?NO ORGANISMS SEENCULTURE : 2+ STAPHYLOCOCCUS AUREUS, METHICILLIN RESISTANT. METHICILLIN RESISTANT ? STAPH AUREUS SHOULD BE CONSIDEREDCLINICALLY RESISTANT TO ALL ? BETA-LACTAMS. This isolate was identified using Maldi-TOF system ??These ? AST results were performed on the Vitek 2 ID and AST systemREPORT STATUS :FINAL 06/18/2023ORGANISM ? 2+ STAPHYLOCOCCUS AUREUS, METHICILLIN RESISTANT. ? METHICILLIN RESISTANT STAPH AUREUS SHOULD BE CONSIDERED CLINICALLY RESISTANT TO ALL BETA-LACTAMS. This isolate was identified using Maldi-TOF system These AST results were performed on the Vitek 2 ID and AST systemMETHOD ? MIN. INHIB. CONC. (MCG/ML)CIPROFLOXACIN ?RESISTANTCLINDAMYCIN ?RESISTANTERYTHROMYCIN ? RESISTANTLEVOFLOXACIN ? RESISTANTLINEZOLID ?SUSCEPTIBLEOXACILLIN ?RESISTANTRIFAMPIN ? SUSCEPTIBLERIFAMPIN ? RIFAMPIN SHOULD NOT BE USED ALONEFOR ANTIMICROBIALRIFAMPIN ?THERAPY.TETRACYCLINE ? RESISTANTTRIMETH/SULFAMETHOX ??SUSCEPTIBLEVANCOMYCIN ? SUSCEPTIBLE ? Assessment and Plan Assessment:??Wound cx REPORT STATUS : FINAL 06/18/2023 ? ORGANISM 2+ STAPHYLOCOCCUS AUREUS, METHICILLIN RESISTANT. ?METHICILLIN RESISTANT STAPH AUREUS SHOULD BE ??CONSIDERED CLINICALLY RESISTANT TO ALL BETA-LACTAMS. This isolate was ??identified using Maldi-TOF system These AST results were performed on ??the Vitek 2 ID and AST system METHOD MIN. INHIB. CONC. (MCG/ML) CIPROFLOXACIN RESISTANT CLINDAMYCIN RESISTANT ERYTHROMYCIN RESISTANT LEVOFLOXACIN RESISTANT LINEZOLID SUSCEPTIBLE OXACILLIN RESISTANT RIFAMPIN SUSCEPTIBLE RIFAMPIN RIFAMPIN SHOULD NOT BE USED ALONE FOR ANTIMICROBIAL RIFAMPIN THERAPY. TETRACYCLINE RESISTANT TRIMETH/SULFAMETHOX SUSCEPTIBLE VANCOMYCIN SUSCEPTIBLE ? _40 minutes spent on discharge * Roxane Rolon RN: PERFORM, SIGN, VERIFY Event Display: Case Management Discharge Plan Authored Date: [id number] Patient: ANT VARMA Age: 67 years Sex: Male : 1955 Associated Diagnoses: None Author: Roxane Rolon RN Discharge Plan Case Management Discharge Plan : Case Management Discharge Plan Data 06/21/2023 12:42 EDT Discharge Level of Care at Discharge Home/Prison/Foster Care Discharge Transportation Arranged [facility] [phone] Discharge Arranged Transport Date/Time 06/21/2023 13:30 Mode of Transportation Arranged Chair Van Service Comments #1 Please reach out to your new PCP for follow up as discussed via telephone. Onceyou have a new PCP you will be able to get more in home supports and services. * Luci Yates RN: PERFORM Event Display: Patient Education/Instruction Authored Date: [id number] Inpatient Adult Discharge Instructions [address] [address] Name: ANT VARMA : 1955 Visit: 06/14/2023 16:39:00 Current Date: 06/21/2023 13:11 Account: [id number] Inpatient Adult Discharge Instructions We would like [...] and their families. Surveys are administered by [employer] ?? If further treatment with your primary care physician or another doctor is recommended, it is important for you to keep the appointment. Call your primary care physician or return to the Emergency Department immediately if your condition worsens, fails to improve, or new symptoms develop. If you need to find a doctor, you can call [facility] for a referral at [phone] or toll free at [phone] or log in to [email or web address].. ?? You can view and manage your care through the patient portal or by using a health care todd of your choosing. [employer] is a website that allows you to [...] office visit. You have been discharged from [facility], Patient Care Unit: S64. If you have any questions regarding these instructions after you leave, please call us and we will be happy to assist you. [facility] Your Care Team Attending Physician Judi Duff MD Consulting Providers Cynthia Mccarty MD Discharging Providers Judi Duff MD Reason for Admission from home, c/o SOB for 45 minutes, also c/o abd pain and tooth pain. Your Diagnosis COPD exacerbation Cellulitis due to MRSA Nonhealing surgical wound Alcohol use disorder, moderate, dependence Tests Performed Below is a partial list of the tests performed during your hospitalization. You may have had other tests and procedures not included in this list. Please discuss all test results with your provider. Basic Metabolic Panel C-REACTIVE PROTEIN CBC CBC w/ Differential Comprehensive Metabolic Panel COVID-19 (Novel Coronavirus), Rapid PCR HOLD BLUE TUBE HOLD GEL TUBE HOLD GREEN TUBE HOLD LAVENDER TUBE Lactate Level Magnesium Level Phosphorus Level SEDIMENTATION RATE,AUTOMATED Type and Screen Portable Chest Shoulder Min 2 Views Right Primary Care Provider Not on Staff, PCP Advance Directive Health Care Proxy on File Yes - Health Care Proxy Yes - MOLST Discharge Vitals Temperature: 97.6 DegF Height: 183 cm Pulse Rate: 81 bpm Weight: 56.2 kg Respiratory Rate: 16 br/min Body Mass Index:??16.78 kg/m2??Low Respiratory Rate: 16 br/min Body surface area: 1.69 Respiratory Rate: 16 br/min ?? Systolic Blood Pressure:??149 mm Hg??High ?? Diastolic Blood Pressure: 80 mm Hg ?? Oxygen Saturation: 100 % ?? Studies Pending All tests and labs ordered during this hospital stay have been completed unless listed below. Please discuss all pending results with your provider listed above in these instructions. ?? Add On Lab Order Hold Lavender Tube (BB) Type and Screen What to do next Instructions From Your Doctor Discharge Orders Scheduled Follow-Up Appointments Tuesday 9:00 AM EDT ?? With: Stevenson Plascencia DO Where: [facility] [address] [place] [address]- Status: Pending You Need to Schedule the Following Appointments Follow Up with??The Infectious Disease team advised stopping DOXYCYCLINE and starting BACTRIM (aka TMP-sulfa) to suppress infection in the R shoulder Follow Up with??Call [facility] for followup Address: [address] [place] [address] When:??Within 1 week Follow Up with??Julia Montoya When:??Within 2 to 3 weeks Why: call for ID followup Where: [address] [facility] [place] [address]- Business (1) Follow Up with??Jan Gauthier When:??Within 1 month Where: [address] [facility] [place] [address]- Business (1) Follow Up with??[facility] PCP Assignment Line [phone] Follow Up with??PCP Not on Staff When:??Within 1 to 2 weeks Follow Up with??Please followup with all of your usual doctors. Return if you have bleeding, fever,cannot eat/drink, or have any other worrisome symptoms Follow Up with??Please return if you have fever, chest pain, trouble breathing, neck pain, vision changes, or any other worrisome symptoms. Follow Up with??drink plenty of fluids; return for evaluation if you notice decreased urination, orhave vomiting or other worrisome symptoms Follow Up with??Do not take naprosyn, Aleve, Motrin, ibuprofen or other similar medications. OK to take Tylenol, aka acetaminophen. Discharge Medications ANT VARMA :1955 Visit Date:06/14/2023 Medications: Please continue your medications until treatment is completed or stopped by your provider. Medications not listed below should be discontinued. Discuss any questions related to medications with your provider. What How Much When Instructions Next Dose New Sulfamethoxazole/ Trimethoprim (sulfamethoxazole-trimethoprim 800 mg-160 mg oral tablet) 160 Milligram Oral Twice a day Duration: 30 Days drink plenty of fluids; ??followup with Ortho and ID before this is completed, to discuss long-termplan. May need further weeks of antibiotics. ?? Pickup at [facility]/pharmacy #[id number] 06/21/23 PM Changed Hydromorphone (HYDROmorphone 4 mg oral tablet) 1 tab(s) Oral Every 4 hours as needed for Pain , Severe Duration: 3 Days Pickup at [facility]/pharmacy #[id number] as needed 06/22Changed PredniSONE (predniSONE 5 mg oral tablet) 3 tab(s) Oral Daily Duration: 30 Days 15 mg daily maintanence dose after the initial taper ?? 06/22/23 AM Unchanged Acetaminophen (acetaminophen 325 mg oral tablet) 2 tab(s) Oral Every 4 hours as needed for as needed for fever as needed Unchanged Albuterol (albuterol 0.042% inhalation solution) 3 Milliliter Nebulized inhalation Every 4 hours 06/21/23 PM Unchanged Albuterol (albuterol 90 mcg/ inh inhalation powder) 2 puff(s) Inhalation Every 4 hours as needed for as needed as needed Unchanged apixaban (Eliquis 5 mg oral tablet) 1 tab(s) Oral Twice a day Duration: 30 Days 06/21/23 PM Unchanged Atorvastatin (atorvastatin 80 mg oral tablet) 1 tab(s) Oral Daily 06/22/23 AM Unchanged Budesonide-Formoterol (Symbicort 160mcg/ 4.5mcg Inhaler) 2 puff(s) Inhalation Twice a day 06/21/23 PM Unchanged Collagenase Topical (collagenase topical 250 u/ gm ointment) See instructions Use over right shoulder wound daily ?? 06/21/23 PM Unchanged Dicyclomine (dicyclomine 10 mg oral capsule) 1 capsule Oral 4 times a day 06/21/23 PM Unchanged Duloxetine (duloxetine 60 mg oral enteric coated capsule) 1 capsule Oral Twice a day 06/21/23 PM Unchanged Ferrous Sulfate (ferrous sulfate 325 mg oral enteric coated tablet) 1 tab(s) Oral Daily 06/22/23 AM Unchanged Gabapentin (gabapentin 300 mg oral capsule) 2 capsule Oral 3 times a day 06/21/23 PM Unchanged Guaifenesin/ Dextromethorphan (Robitussin DM Liquid) 5 Milliliter Oral Every 6 hours as needed for Cough as needed Unchanged HydrOXYzine (hydrOXYzine hydrochloride 10 mg oral tablet) 1 tab(s) Oral 3 times a day as needed for Anxiety as needed Unchanged Isosorbide Dinitrate (isosorbide dinitrate 30 mg oral tablet) 1 tab(s) Oral Twice a day 06/21/23 PM Unchanged Loperamide (loperamide 2 mg oral capsule) 1 capsule Oral Every 6 hours as needed for for loose stool as needed Unchanged Melatonin 10 Milligram Oral Daily at Bedtime as needed for as needed for sleep as needed Unchanged Metoprolol (Metoprolol Succinate ER 25 mg oral tablet, extended release) 1 tab(s) Oral Daily 06/22/23 AM Unchanged nalOXONE (Narcan 4 mg/ 0.1 mL nasal spray) See instructions If concern for opioid overdose. Gently insert the tip of the nozzle into one nostril, until your fingers on either side of the nozzle are against the bottom of the person's nose. Press the plunger firmly to give the dose of NARCAN Nasal Table [place]. Remove the NARCAN Nasal Table [place] from the nostril after giving the dose. Get emergency medical help right away. ?? as needed Unchanged Pantoprazole (pantoprazole 40 mg oral delayed release tablet) 1 tab(s) Oral Daily 06/22/23 AM Unchanged Pantoprazole (Protonix 40 mg oral delayed release tablet) 1 tab(s) Oral Daily 06/22/23 AM Unchanged roflumilast (roflumilast 500 mcg oral tablet) 1 tab(s) Oral Daily 06/22/23 AM Unchanged Sodium Chloride Nasal (Lamar Saline 0.65% nasal gel) 1 spray(s) Nares, Both 4 times a day 06/21/23 PM Unchanged Sodium Chloride Nasal (sodium chloride 0.65% nasal spray) 1 spray(s) Nares, Both 5 times a day dryness ?? 06/21/23 PM Unchanged Thiamine (Vitamin B1 100 mg oral tablet) 1 tab(s) Oral Daily 06/22/23 AM Unchanged umeclidinium (Incruse Ellipta 62.5 mcg/ inh inhalation powder) 1 puff(s) Inhalation Every 24 hours 06/22/23 AM Pharmacy Information [facility]/pharmacy #[id number]: [address], [place] [phone] ?? What How Much When Comments Stop Taking Doxycycline (doxycycline monohydrate 100 mg oral tablet) 1 tab(s) Oral Every 12 hours Duration: 30 Days continue suppressive Doxycyline therapy, f/ u with ID/ Dr. Perez ?? Test Results Below is a partial list of the most recent Laboratory test results done prior to this discharge. You may have had other tests and procedures not included in this list. Please discuss all test resultswith your provider. Est Creatinine Clearance - 73.18 mL/min (06/20/2023) Basic Metabolic Panel (06/20/2023) ???Sodium - 142 mmol/L???Potassium - 4.4 mmol/L???Chloride - 97 mmol/L???Bicarbonate Level - 34 mmol/L???Anion Gap - 11???Glucose Level - 107 mg/dL???BUN - 15 mg/dL???Creatinine-Blood - 0.8 mg/dL???Estimated GFR Creatinine - 98 ML/MIN/1.73 M2???Calcium - 9.0 mg/dL C-REACTIVE PROTEIN (06/14/2023) ???C-Reactive Protein - 13.2 mg/dL CBC (06/21/2023) ???WBC - 8.0 k/mm3???RBC - 2.88 m/mm3???Hgb - 8.0 Gm/dL???Hct - 26.7 %???MCV - 92.7 femtoliters???MCH - 27.8 pg???MCHC - 30.0 g/dL???Platelet Count - 411 k/mm3???RDW-SD - 58.8 femtoliters???MPV - 8.9femtoliters???Nucleated RBC (Automated) - 0.0 #/100 WBC'S???Abs. NRBC - 0.0 k/mm3 CBC w/ Differential (06/17/2023) ???WBC - 9.3 k/mm3???RBC - 2.63 m/mm3???Hgb - 7.2 Gm/dL???Hct - 24.3 %???MCV - 92.4 femtoliters???MCH - 27.4 pg???MCHC - 29.6 g/dL???Platelet Count - 389 k/mm3???RDW-SD - 58.5 femtoliters???MPV - 9.1femtoliters???Nucleated RBC (Automated) - 0.0 #/100 WBC'S???Abs. NRBC - 0.0 k/mm3???Abs. Neut - 7.7 k/mm3???Abs. Lymph - 0.6 k/mm3???Abs. Carter - 1.0 k/mm3???Abs. Eo - 0.0 k/mm3???Abs. Baso - 0.0 k/mm3???Neut % - 81.9 %???Lymph % - 6.9 %???Carter % - 10.2 %???Eos % - 0.1 %???Baso % - 0.1 %???Imm Gran - 0.8 %???Abs. Imm Gran - 0.1 k/mm3 Comprehensive Metabolic Panel (06/18/2023) ???Sodium - 139 mmol/L???Potassium - 4.3 mmol/L???Chloride - 94 mmol/L???Bicarbonate Level - 33 mmol/L???Anion Gap - 12???Glucose Level - 91 mg/dL???BUN - 12 mg/dL???Creatinine-Blood - 0.6 mg/dL???Estimated GFR Creatinine - 106 ML/MIN/1.73 M2???Calcium - 8.9 mg/dL???Protein, Total - 5.7 Gm/dL???[place]bu min - 3.7 Gm/dL???AG Ratio - 1.9???Alkaline Phosphatase - 76 units/L???AST (SGOT) - 16 units/L???ALT (SGPT) - 14 units/L? ?Bilirubin, Total - <0.2 mg/dL COVID-19 (Novel Coronavirus), Rapid PCR (06/14/2023) ???COVID-19 by RT-PCR - NEGATIVE HOLD BLUE TUBE (06/14/2023) ???Hold Blue Top - SPECIMEN DISCARDED AFTER 4 HOURS. HOLD GEL TUBE (06/14/2023) ???Hold Gel Top - SPECIMEN DISCARDED AFTER 1 WEEK HOLD GREEN TUBE (06/14/2023) ???Hold Green Top - SPECIMEN DISCARDED AFTER 1 WEEK HOLD LAVENDER TUBE (06/14/2023) ???Hold Lavender Top - SPECIMEN DISCARDED AFTER 24 HOURS. Lactate Level (06/15/2023) ???Lactate - 0.5 mmol/L Magnesium Level (06/18/2023) ???Magnesium - 1.7 mg/dL Phosphorus Level (06/15/2023) ???Phosphorus - 2.6 mg/dL SEDIMENTATION RATE,AUTOMATED (06/14/2023) ???Sed Rate - 27 mm/hr Type and Screen (06/20/2023) ???Blood Type - A Negative???Antibody Screen - Negative Allergies (NKA means No Known Allergies) Toradol??(Morphine [...] Metabolic alkalosis?? Multiple fractures of ribs?? Old RI (myocardial infarction) X 3?? old Rib fractures, right 3-8?? Pulmonary cachexia due to COPD?? PVD (peripheral vascular disease)?? Smoking greater than 40 pack years?? Tobacco dependence?? Underweight?? Education Materials Below is the list of Educational Leaflet Providered with your Discharge Instructions. Fall??Prevention?? Understanding Oxygen Therapy?? Understanding Oxygen Therapy?? Traveling with Oxygen?? COPD: Chronic Coughing?? Sulfamethoxazole/Trimethoprim Oral Tablet?? Valuables and Belongings I fully understand and agree that [facility] accepts no responsibility for all [...] patient Date for Pt to Sign Valuables/Belongings: 06/15/23 11:54:00 ?? Other Discharge Information ?? Wound Assessment?? Wound Assessment?? Wound Location I: Shoulder, right Wound Type I: Other: R shoulder septic arthritis Wound I, Present on Admission: Yes Wound Location II: Leg, left lower Wound Type II: Other Wound Type - Outpatient Wound II, Present on Admission: Yes ? Case Management Discharge Plan?? Discharge Plan?? Discharge Agency Information?? Discharge Level of Care at Discharge: Home/Prison/Foster Care Service Comments #1: Please reach out to your new PCP for follow up as discussed via telephone. Once you have a new PCP you will be able to get more in home supports and services. Discharge Transportation Arranged: [facility] [address] [facility] [phone] ?? Mode of Transportation Arranged: Chair Van ?? Discharge Arranged Transport Date/Time: 06/21/23 13:30:00 ? Pulmonary Rehab Status?? Pulmonary Rehab Discharge Status?? Respiratory Rate: 16 br/min Respiratory Rate: 16 br/min Respiratory Rate: 16 [...] are strongly encouraged to quit. Please call [employer] [facility] at [phone] or [phone] ([phone] or log in to [email or web address] for referrals to smoking cessation programs. ?? 988 Suicide & Crisis Lifeline is available 20/06 if you or someone you know needs to find a reason to keep living. By calling 988 you'll be connected to a skilled, trained counselor at a crisis center in your area. INPATIENT DISCHARGE INSTRUCTIONS SIGNATURE PAGE ANT VARMA Location:[facility] Registration Date and Time:06/14/2023 16:39 EDT Primary Care Physician: Not on Staff, PCP Attending Physician: Judi Duff MD, I ANT VARMA, have received the above patient education materials/instructions and have verbalized understanding. If ambulance or transport services are being used I further acknowledge being given a choice of service. ?? If you need to contact me, please call me at this number: . Patient/Curriculum Writer Name: Patient/Curriculum Writer Signature: Relationship to Patient: Witness Name/Signature: Date: * Judi Duff MD: SIGN, PERFORM, SIGN, VERIFY Event Display: Patient Education Handout Authored Date: [id number] * Judi Duff MD: PERFORM Event Display: Patient Education Leaflets Authored Date: [id number] Fall??Prevention ?? [id number] Fall??Prevention Falls often take place due to slipping, tripping, or losing your balance. Millions of people fall every year and injure themselves.??Among older adults in the [place] falls are the most common cause oftraumatic brain injuries. Every 20 minutes, an older adult dies from a fall. Here are ways to reduce your risk of falling again: ??? Think about your fall. Was there anything that caused your fall that can be fixed, removed, or replaced? Make your home safe by keeping walkways clear of objects you may trip over, such as electrical cords. ??? Use nonslip pads under rugs. Don't use area rugs orsmall throw rugs. ??? Use nonslip mats in bathtubs and showers. ??? Hang grab rails by the toilet and inside and outside the shower. ??? Install handrails and lights on staircases. The handrails should be on both sides of the stairs. ??? Use night lights. ??? Don't walk in poorly lit areas. ??? Don't stand on chairs or wobbly ladders. ??? Use care when reaching overhead or looking up.??This position can cause a loss of balance. ??? Be sure your shoes fit well, are in good condition, and have non slip bottoms.? Wear shoes both inside and outside of your home. Don't go barefoot or wear slippers. ??? Be cautious when going up and down stairs, curbs, and when walking on uneven sidewalks. ??? If your balance is poor, consider using a cane or walker. Talk with your healthcare provider abouthaving a balance assessment. ??? If your fall was related to alcohol use, stop or limit alcohol intake.??Ask your provider for help if you think you may overuse alcohol and can't stop. ??? If your fall was related to use of sleeping medicines, talk with your provider about this.??You may need to reduce your dosage at bedtime if you wake up during the night to go to the bathroom.? To reducethe need for nighttime bathroom trips: o Don't drink fluids for several hours before going to bed oEmpty your bladder before going to bed o Men can keep a urinal at the bedside ??? Stay as active asyou can. Balance, flexibility, strength, and endurance all come from exercise. They all play a rolein preventing falls. Ask your provider which types of activity are right for you. Try to do some type of exercise every day. ??? Get your eyes checked once a year or more often if your vision changes??? If you have pets, know where they are before you stand up or walk so you don't trip over them. ??? Go over all your medicines with a pharmacist or other provider. This is to see if any of them could make you more likely to fall. Have this type of medicine review at least once every year. ??? Ifyour provider advises a new medicine, ask if the side effects will affect your balance. ??? Don't move quickly from one position to another. For instance, don't stand up fast from sitting. This can cause dizziness and may lead to a fall. ??? Sit down when putting on pants, socks, and shoes. This will make you less likely to lose your balance and fall. ??? Always let your provider know if you havefallen since your last visit. ??? Contact your provider right away if you're having balance problems or falling more often. Last Reviewed Date: 2021 ?? [id number] [employer]. All rights reserved. This information is not intended as a substitute for professional medical care. Always follow your healthcare professional's instructions. ?? * Judi Duff MD: PERFORM Event Display: Patient Education Leaflets Authored Date: [id number] Understanding Oxygen Therapy ?? 26536 Understanding Oxygen Therapy You need oxygen from the air you breathe for your body???s cells to work. Having low oxygen levels in your blood can make you feel tired, confused, or short of breath. If your oxygen level is low fortoo long, serious problems can occur in many parts of the body. If you have a long-term (chronic) health condition that makes your blood oxygen levels too low, your healthcare provider may prescribe oxygen. This is also called oxygen therapy or supplemental oxygen. This can help you breathe more easily. Some short-term conditions may require oxygen as well. Symptoms of low blood oxygen Symptoms of low blood oxygen include: ??? Feeling tired ??? Feeling confused ??? Being short of breath ??? Having blue or schwartz lips or fingernails ?? How oxygen therapy helps with chronic conditions You may need oxygen therapy if you have a chronic health condition, such as: ??? Pulmonary hypertension ??? COPD (chronic obstructive pulmonary disease) ??? Cystic fibrosis ???Late-stage heart failure ??? Asthma ??? Sleep apnea Oxygen therapy can help raise your blood oxygen levels, making it easier for you to breathe. This can help you to: ??? Feel less short of breath ??? Have more energy ??? Be more active and do the things you enjoy ??? Sleep better if you need oxygen at night With higher blood oxygen levels, your organs will also work better. ?? How is your blood oxygen level tested? Your healthcare provider will check your blood oxygen level. This will be done either by using a pulse oximeter or by taking a blood sample (arterial blood gas test). Pulse oximeter. This small, electronic device checks your blood oxygen level without using a needle. The device can be attached to your finger, toe, earlobe, nose, or forehead. A light from the device measures the oxygen level in your blood. It can give a false reading if you???re wearing dark nailpolish, or if you have poor circulation or anemia. Arterial blood gas (ABG) test. This is the most accurate test. It uses a blood sample taken from anartery in your wrist. This measures the oxygen level right from your blood. ?? What is a normal oxygen level? A pulse oximeter measures your oxygen saturation level (Sap02). This is a percentage of how much oxygen your blood is carrying. Normally, your oxygen saturation level percentage should be in the mid to high 90s. In some chronic conditions such as COPD, it may be both acceptable and desirable to have lower levels of oxygen. With these conditions, your oxygen saturation percentage should typically not be lower than 88%. Ask your healthcare provider what a normal oxygen saturation level is for you. An ABG test measures several aspects of your oxygen level. Important levels for you to know include: ??? Partial pressure of oxygen (Pa02): 80 to 100 millimeters of mercury (mmHg) ??? Partial pressureof carbon dioxide (PaCO2): 35 to 45 mmHg ??? Oxygen saturation (SaO2): 95% to 100% If tests show that your oxygen level is low, your healthcare provider may prescribe oxygen. You mayneed oxygen all the time. Or you may only need it for certain activities, such as during exercise or sleep. ?? Types of oxygen systems Oxygen can be delivered in three different ways: with an oxygen concentrator, as compressed oxygen,or in a liquid oxygen system. You may use more than one type, depending on when you need oxygen: ??? Oxygen concentrator. This is a large machine that stays in one spot. It takes in the oxygen from the air you breathe and removes other gases. It then gives you 85% to 95% pure oxygen at a steady rate (continuously). It has to be plugged into an electrical outlet. (A backup oxygen supply is advised in case of a power outage.) The concentrator must be kept in a spot with a good supply of fresh air. Don???t keep it in a closed space, such as a closet. A concentrator won???t run out of oxygen so it doesn???t need refills. ??? Compressed oxygen. This is oxygen gas stored in a metal tank. Thesetanks come in different sizes. Smaller tanks can be carried. Larger tanks are on wheels. They can be pulled around the house. Some portable tanks can be refilled by you. But others must be returned to the oxygen supply company to be refilled. ??? Liquid oxygen. With this system, oxygen is compressed and cooled to a very low temperature so that it???s frozen. It???s kept in special containers thatstay at this low temperature. When you use liquid oxygen, it???s warmed and becomes gas before reaching you. This system uses a main storage unit and a portable tank so you can take your oxygen with you. These systems often provide highly concentrated oxygen. They don???t need electricity to work. You must be careful when handling liquid oxygen because it???s so cold. To breathe in the oxygen, you will need one of these: ??? Nasal cannula. This lightweight tube is used most often for oxygen therapy. It has 2 prongs that fit just inside your nose. The other end attaches to the oxygen system. ??? Facemask. This mask covers your nose and mouth. It also has a lightweight tube that attaches to the oxygen system. You may have to use a mask if you need a higher oxygen concentration or if you can???t handle a nasal cannula. ?? Choosing an oxygen system Talk with your healthcare provider about which oxygen system is best for you. Choosing a system will depend on several factors such as: ??? How much oxygen you need (your flow rate) ??? When you need oxygen (day, night, or both) ??? Where you live ??? How active you are ??? Your electrical supply ??? The cost ??? Any insurance restrictions Once oxygen is prescribed, you???ll be referred to a medical equipment company. They will set up the oxygen unit and teach you how to use it. ?? Side effects of oxygen therapy Oxygen is considered a medicine. As with any medicine, you may have side effects, such as: ??? Dry or bloody nose ??? Morning headaches ??? Feeling tired ?? Safety tips for using oxygen therapy at home Oxygen makes fire burn hotter and faster. It???s important to reduce the chances of fire when you use it. Follow these tips for safe oxygen use at home: ??? Keep the oxygen unit at least 5 feet away from heat sources and open flames. ??? Don't smoke when you are using oxygen. ??? Don???t allow smoking near you. Consider putting up signs in and outside your home that say No smoking and No open flames. ??? Don???t use aerosol sprays near the oxygen unit. This includes air fresheners and hairspray. ??? Don???t use oxygen when cooking with gas. ??? Don???t use electrical appliances when wearing oxygen. This includes hair dryers, electric razors, and heating pads. ??? Keep a fire extinguisher and smoke alarms nearby. ??? Keep the oxygen unit upright and secured. Never have it on its side. ?? Last Reviewed Date: 2022 ?? [employer]. All rights reserved. This information is not intended as a substitute for professional medical care. Always follow your healthcare professional's instructions. ?? * Judi Duff MD: PERFORM Event Display: Patient Education Leaflets Authored Date: [id number] Understanding Oxygen Therapy ?? 36012 Understanding Oxygen Therapy You need oxygen from the air you breathe for your body???s cells to work. Having low oxygen levels in your blood can make you feel tired, confused, or short of breath. If your oxygen level is low fortoo long, serious problems can occur in many parts of the body. If you have a long-term (chronic) health condition that makes your blood oxygen levels too low, your healthcare provider may prescribe oxygen. This is also called oxygen therapy or supplemental oxygen. This can help you breathe more easily. Some short-term conditions may require oxygen as well. Symptoms of low blood oxygen Symptoms of low blood oxygen include: ??? Feeling tired ??? Feeling confused ??? Being short of breath ??? Having blue or schwartz lips or fingernails ?? How oxygen therapy helps with chronic conditions You may need oxygen therapy if you have a chronic health condition, such as: ??? Pulmonary hypertension ??? COPD (chronic obstructive pulmonary disease) ??? Cystic fibrosis ???Late-stage heart failure ??? Asthma ??? Sleep apnea Oxygen therapy can help raise your blood oxygen levels, making it easier for you to breathe. This can help you to: ??? Feel less short of breath ??? Have more energy ??? Be more active and do the things you enjoy ??? Sleep better if you need oxygen at night With higher blood oxygen levels, your organs will also work better. ?? How is your blood oxygen level tested? Your healthcare provider will check your blood oxygen level. This will be done either by using a pulse oximeter or by taking a blood sample (arterial blood gas test). Pulse oximeter. This small, electronic device checks your blood oxygen level without using a needle. The device can be attached to your finger, toe, earlobe, nose, or forehead. A light from the device measures the oxygen level in your blood. It can give a false reading if you???re wearing dark nailpolish, or if you have poor circulation or anemia. Arterial blood gas (ABG) test. This is the most accurate test. It uses a blood sample taken from anartery in your wrist. This measures the oxygen level right from your blood. ?? What is a normal oxygen level? A pulse oximeter measures your oxygen saturation level (Sap02). This is a percentage of how much oxygen your blood is carrying. Normally, your oxygen saturation level percentage should be in the mid to high 90s. In some chronic conditions such as COPD, it may be both acceptable and desirable to have lower levels of oxygen. With these conditions, your oxygen saturation percentage should typically not be lower than 88%. Ask your healthcare provider what a normal oxygen saturation level is for you. An ABG test measures several aspects of your oxygen level. Important levels for you to know include: ??? Partial pressure of oxygen (Pa02): 80 to 100 millimeters of mercury (mmHg) ??? Partial pressureof carbon dioxide (PaCO2): 35 to 45 mmHg ??? Oxygen saturation (SaO2): 95% to 100% If tests show that your oxygen level is low, your healthcare provider may prescribe oxygen. You mayneed oxygen all the time. Or you may only need it for certain activities, such as during exercise or sleep. ?? Types of oxygen systems Oxygen can be delivered in three different ways: with an oxygen concentrator, as compressed oxygen,or in a liquid oxygen system. You may use more than one type, depending on when you need oxygen: ??? Oxygen concentrator. This is a large machine that stays in one spot. It takes in the oxygen from the air you breathe and removes other gases. It then gives you 85% to 95% pure oxygen at a steady rate (continuously). It has to be plugged into an electrical outlet. (A backup oxygen supply is advised in case of a power outage.) The concentrator must be kept in a spot with a good supply of fresh air. Don???t keep it in a closed space, such as a closet. A concentrator won???t run out of oxygen so it doesn???t need refills. ??? Compressed oxygen. This is oxygen gas stored in a metal tank. Thesetanks come in different sizes. Smaller tanks can be carried. Larger tanks are on wheels. They can be pulled around the house. Some portable tanks can be refilled by you. But others must be returned to the oxygen supply company to be refilled. ??? Liquid oxygen. With this system, oxygen is compressed and cooled to a very low temperature so that it???s frozen. It???s kept in special containers thatstay at this low temperature. When you use liquid oxygen, it???s warmed and becomes gas before reaching you. This system uses a main storage unit and a portable tank so you can take your oxygen with you. These systems often provide highly concentrated oxygen. They don???t need electricity to work. You must be careful when handling liquid oxygen because it???s so cold. To breathe in the oxygen, you will need one of these: ??? Nasal cannula. This lightweight tube is used most often for oxygen therapy. It has 2 prongs that fit just inside your nose. The other end attaches to the oxygen system. ??? Facemask. This mask covers your nose and mouth. It also has a lightweight tube that attaches to the oxygen system. You may have to use a mask if you need a higher oxygen concentration or if you can???t handle a nasal cannula. ?? Choosing an oxygen system Talk with your healthcare provider about which oxygen system is best for you. Choosing a system will depend on several factors such as: ??? How much oxygen you need (your flow rate) ??? When you need oxygen (day, night, or both) ??? Where you live ??? How active you are ??? Your electrical supply ??? The cost ??? Any insurance restrictions Once oxygen is prescribed, you???ll be referred to a medical equipment company. They will set up the oxygen unit and teach you how to use it. ?? Side effects of oxygen therapy Oxygen is considered a medicine. As with any medicine, you may have side effects, such as: ??? Dry or bloody nose ??? Morning headaches ??? Feeling tired ?? Safety tips for using oxygen therapy at home Oxygen makes fire burn hotter and faster. It???s important to reduce the chances of fire when you use it. Follow these tips for safe oxygen use at home: ??? Keep the oxygen unit at least 5 feet away from heat sources and open flames. ??? Don't smoke when you are using oxygen. ??? Don???t allow smoking near you. Consider putting up signs in and outside your home that say No smoking and No open flames. ??? Don???t use aerosol sprays near the oxygen unit. This includes air fresheners and hairspray. ??? Don???t use oxygen when cooking with gas. ??? Don???t use electrical appliances when wearing oxygen. This includes hair dryers, electric razors, and heating pads. ??? Keep a fire extinguisher and smoke alarms nearby. ??? Keep the oxygen unit upright and secured. Never have it on its side. ?? Last Reviewed Date: 2022 ?? [employer]. All rights reserved. This information is not intended as a substitute for professional medical care. Always follow your healthcare professional's instructions. ?? Patient Care team information Care Team Personnel Name: Glo Camarena RN Position: [facility] RN Member Role: Primary Care Nurse Name: Fatimah Bennett RN Position: [facility] RN Member Role: Primary Care Nurse Name: Mariely Hardy RN Position: [facility] RN Member Role: Primary Care Nurse Name: Marleen Uriarte RN Position: [facility] RN Member Role: Primary Care Nurse Name: Sydney Zelaya Position: [facility] SN Support Member Role: Lifetime Consulting Physician Name: Judd Barahona RN Position: [facility] RN Member Role: Primary Care Nurse Name: Mag Harry RN Position: [facility] RN Member Role: Primary Care Nurse Name: An Blount RN Position: [facility] RN Supv Member Role: Primary Care Nurse Name: Rebecca Whitley RN Position: [facility] RN Member Role: Primary Care Nurse Name: Marianna Ng RN Position: [facility] SN RN Member Role: Primary Care Nurse Name: Avani Odell RN Position: [facility] RN Member Role: Primary Care Nurse Name: Lisbet Hickman RN Position: [facility] RN Member Role: Primary Care Nurse Name: Ruben Bello RN Position: [facility] RN Member Role: Primary Care Nurse Name: Araceli Simon RN Position: [facility] RN Member Role: Primary Care Nurse Name: Judi Streeter RN Position: [facility] RN Member Role: Primary Care Nurse Name: Moni Dugan RN Position: [facility] RN Member Role: Primary Care Nurse Name: Misty Nguyen RN Position: [facility] RN Member Role: Primary Care Nurse Name: Hetal Archer LPN Position: [facility] RN Member Role: Primary Care Nurse Name: Joyce Cobb Position: [facility] RN Member Role: Primary Care Nurse Name: Sarwat Aj RN Position: [facility] RN Member Role: Primary Care Nurse Name: César Patel RN Position: [facility] RN Member Role: Primary Care Nurse Name: Cassi Batista RN Position: [facility] RN Member Role: Primary Care Nurse Name: Daija Huitron RN Position: [facility] RN Member Role: Primary Care Nurse Name: Ellis Mayfield RN Position: [facility] RN Supv Member Role: Primary Care Nurse Name: Ayah Robison RN Position: [facility] RN Member Role: Primary Care Nurse Name: Radha Moreno RN Position: [facility] RN Member Role: Primary Care Nurse Name: Jina Smalls RN Position: [facility] RN Member Role: Primary Care Nurse Name: Laura Clements RN Position: [facility] RN Member Role: Primary Care Nurse Name: Colette Syed RN Position: [facility] RN Member Role: Primary Care Nurse Name: Muriel Daley RN Position: [facility] RN Supv Member Role: Primary Care Nurse Name: Judith Rojas LPN Position: [facility] RN Member Role: Primary Care Nurse Name: Sydney Raza RN Position: [facility] RN Member Role: Primary Care Nurse Name: Rachna Renteria RN Position: [facility] RN Member Role: Primary Care Nurse Name: Zohreh Pink RN Position: [facility] RN Member Role: Primary Care Nurse Name: Sophie Berrios RN Position: [facility] RN Member Role: Primary Care Nurse Name: Grisel Mcgowan RN Position: [facility] RN Member Role: Primary Care Nurse Name: Uyen Mitchell RN Position: [facility] RN Member Role: Primary Care Nurse Name: Nasra Smith NP Position: Reference Physician Member Role: Primary Care Nurse Address: Address: [address] [place] [address] Name: Silas Knox RN Position: [facility] RN Member Role: Primary Care Nurse Name: Elahm Lee RN Position: [facility] AMB Nurse Member Role: Primary Care Nurse Name: Dariana Mariee RN Position: [facility] RN Member Role: Primary Care Nurse Name: Ana María Cat RN Position: [facility] RN Member Role: Primary Care Nurse Name: Janet Pacheco RN Position: [facility] RN Member Role: Primary Care Nurse Name: Flor Holley Position: [facility] RN Member Role: Primary Care Nurse Name: Bret Aguirre RN Position: [facility] RN Member Role: Primary Care Nurse Name: Audra Martinez RN Position: [facility] RN Member Role: Primary Care Nurse Name: Shahbaz Bobo RN Position: [facility] RN Member Role: Primary Care Nurse Name: Jennifer Yin LPN Position: [facility] RN Member Role: Primary Care Nurse Name: Alina Arce RN Position: [facility] RN Member Role: Primary Care Nurse Name: Judi Krueger RN Position: [facility] RN Member Role: Primary Care Nurse Name: Magdi Patiño RN Position: [facility] RN Member Role: Primary Care Nurse Name: Kasia Lund RN Position: [facility] RN Member Role: Primary Care Nurse Name: Rachna Serrano RN Position: [facility] RN Member Role: Primary Care Nurse Name: Naveen Villalobos RN Position: [facility] RN Member Role: Primary Care Nurse Name: Not on Staff, PCP Position: [facility] Physician (General Medicine) Member Role: PCP Name: Radha Masterson RN Position: [facility] RN Member Role: Primary Care Nurse Name: Landy Villarreal RN Position: [facility] RN Member Role: Primary Care Nurse Name: Adria Bell RN Position: [facility] RN Member Role: Primary Care Nurse Name: Amy Larios RN Position: [facility] RN Member Role: Primary Care Nurse Name: Indira Lindsey RN Position: [facility] RN Member Role: Primary Care Nurse Name: Rosa Elena Pope RN Position: [facility] RN Member Role: Primary Care Nurse Name: Florentino Garcia RN Position: [facility] RN Member Role: Primary Care Nurse Name: Cristel Moreno RN Position: [facility] SN RN Member Role: Primary Care Nurse Name: Rosa Elena De León RN Position: [facility] Hospital [employer] Starter Member Role: Primary Care Nurse Name: Nell Lagos RN Position: [facility] RN Member Role: Primary Care Nurse Name: Judi Hamilton RN Position: [facility] RN Member Role: Primary Care Nurse Name: Tulio Pina RN Position: [facility] RN Member Role: Primary Care Nurse Name: Narda Barnes RN Position: [facility] RN Member Role: Primary Care Nurse Name: Zoë Cisse RN Position: [facility] RN Member Role: Primary Care Nurse Name: Pat Bowers RN Position: [facility] SN RN Member Role: Primary Care Nurse Name: Gemma Chavira RN Position: [facility] RN Member Role: Primary Care Nurse Name: Ruy Salcido RN Position: [facility] RN Member Role: Primary Care Nurse Name: Hilaria Aparicio RN Position: [facility] RN Member Role: Primary Care Nurse Name: Carly Rosado RN Position: [facility] RN Supadelaida Member Role: Primary Care Nurse Name: Taryn Rosado RN Position: [facility] RN Member Role: Primary Care Nurse Name: Sydney Rosado RN Position: [facility] RN Member Role: Primary Care Nurse Name: Uriel Dumont Position: [facility] RN Member Role: Primary Care Nurse Name: Selene Vazquez RN Position: [facility] RN Member Role: Primary Care Nurse Name: César Gerber RN Position: [facility] RN Member Role: Primary Care Nurse Name: Dariana Becerra RN Position: [facility] RN Member Role: Primary Care Nurse Name: Leyla Verma LPN Position: [facility] RN Member Role: Primary Care Nurse Name: Rody Mays RN Position: [facility] RN Member Role: Primary Care Nurse Name: Marielos Mixon RN Position: [facility] RN Member Role: Primary Care Nurse Name: Radha Flores RN Position: [facility] RN Member Role: Primary Care Nurse Name: Hipolito Giles RN Position: [facility] RN Member Role: Primary Care Nurse Name: Rose Kyle RN Position: [facility] [employer] Starter Member Role: Primary Care Nurse Name: Aimee Salamanca RN Position: [facility] RN Member Role: Primary Care Nurse Name: Jacobo Caceres Position: [facility] RN Member Role: Primary Care Nurse Name: KofiKelli Inacosta Attending Position: [facility] ED Medicine MD Name: Shefali Espinoza RN Position: [facility] ED RN W/OE and Tasks Member Role: Patient Care Provider Name: Ally Jang Position: [facility] ED TA [facility] Name: Cholo Yancey MD Position: [facility] Resident Member Role: ED Resident Address: Address: [address] [place] [id number] Name: Pat Casillas Position: [facility] ED OA Charge Member Role: ED Associate Name: Velia Cárdenas MD Position: [facility] Resident Member Role: ED Resident Address: Address: [address] [place] [id number] Care Team Related Persons Name: STEVENSON HAMM Address: home [address] [address] Name: MELINA VARMA Address: [facility] Name: GARRY VARMA Address: home [address] [address]
--- OUTSIDE RECORDS SUMMARY | 2023-08-15 20:31 | XMS_ITS | Continuity of Care Document ---
Author Name Unknown Organization [facility] ter Address [address] [place] [id number]- Care Team Providers Care Hand Pleater Name Role Phone Jose LEE MD, Jorge Tsang Primary Care Physician [place] [facility] [place]s): 03/20/22 - 03/21/[address] [address]- Encounter Diagnosis COPD exacerbation(Final) - 03/20/22 COPD exacerbation(Final) - 03/21/22 Discharge Disposition: A-D/C AMA Attending Physician: Paulo Gold MD Admitting Physician: Nabil Amaral MD Referring Physician: Not on Staff, Referring [...] 0 Refills, Maintenance, 03/12/22 12:11:00 EDT, Tablet, [facility]/pharmacy #[id number], Partial [...] 16:44:00 EDT, Aerosol, Route to Pharmacy Electronically, [id number], [facility]/pharmacy #[id number], 182, cm, 05/26/20 [...] Tablet Start Date: 07/01/14 Status: Ordered azithromycin 500 mg oral tablet = 500 mg, By Mouth, Daily, for 3 days, # 3 tablet, 0 Refills, Acute 03/24/22 9:46:00 EDT, 03/21/22 9:46:00 EDT, Tablet, [facility]/pharmacy #[id number], Partial fill upon patient request if the prescription is for a schedule II opioid drug., 182, cm, 03/12/22 4:49... Start Date: 03/21/22 Stop Date: 03/24/22 Status: Ordered diclofenac 1% topical gel 1 application, Topically, 4 times a day, # 100 Gm, 0 Refills, Maintenance, 03/12/22 12:09:00 EDT, Gel, [facility]/pharmacy #[id number], Partial fill upon patient request if the prescription is for a schedule II opioid drug., 182, cm, 03/12/22 4:49:00 EDT, Height,... Start Date: 03/12/22 Status: Ordered Dilaudid 2 mg oral tablet 1 tablet = 2 mg, By Mouth, Every 8 hours, PRN as needed for pain, for 2 days, # 6 tablet, 0 Refills, Acute 03/23/22 9:47:00 EDT, 03/21/22 9:47:00 EDT, Tablet, [facility]/pharmacy #[id number], Partial fill upon patient request if the prescription is for a schedule... Start Date: 03/21/22 Stop Date: 03/23/22 Status: Ordered duloxetine 60 mg oral enteric [...] oral capsule 400 mg, Capsule, By Mouth, 03/21/22 9:00:00 EDT Start Date: 03/21/22 Stop Date: 03/21/22 Status: Completed Incruse Ellipta 62.5 mcg/inh inhalation [...] Acute 03/26/22 12:09:00 EDT, 03/12/2212:09:00 EDT, Film, [facility]/pharmacy #[id number], Partial [...] oral tablet 2.5 mg, Tablet, By Mouth, 03/21/22 9:00:00 EDT Start Date: 03/21/22 Stop Date: 03/21/22 Status: Completed loperamide 2 mg oral capsule [...] 0 Refills, Maintenance, 11/01/21 10:44:00 EST, Gum, [facility]/pharmacy #[id number], Partial fill upon patient request if the prescription is for a schedule II opioid drug., 182.8... Start Date: 11/01/21 Status: Ordered oxyCODONE 5 mg oral tablet 15 mg, Tablet, By Mouth, Every 6 hours, PRN for Pain , Moderate, Routine, 03/21/22 2:31:00 EDT Start Date: 03/21/22 Stop Date: 03/21/22 Status: Discontinued pantoprazole 40 mg oral delayed release tablet 1 tablet = 40 mg, By Mouth, Daily in AM, # 30 tablet, 0 Refills, Maintenance, 10/07/21 17:39:00 EST, EC Tablet Start Date: 10/07/21 Status: Ordered predniSONE 20 mg oral tablet 2 tablet = 40 mg, By Mouth, Daily, for 4 days, # 8 tablet, 0 Refills, Acute 03/25/22 9:46:00 EDT, 03/21/22 9:46:00 EDT, Tablet, [facility]/pharmacy #[id number], Partial fill upon patient request if the prescription is for a schedule II opioid drug., 182, cm, 03/12... Start Date: 03/21/22 Stop Date: 03/25/22 Status: Ordered Symbicort 160mcg/4.5mcg Inhaler 2, puffs, Inhalation, 2 times a day, # 10.2 Gm, Refills 0, Maintenance, 03/08/19 9:01:22 EDT, Aerosol Start Date: 03/08/19 Status: Ordered Toprol XL 25 mg oral tablet, extended release 25, mg, 1, tablet, By Mouth, Daily, 30, tablet, 6, 6, 03/31/07 11:15:26, Print MARTIN Number, [facility], [address] [place] [address], [id number], Constant Indicator Start Date: 03/31/07 Stop Date: 10/27/07 Status: Ordered Toprol XL 25 mg oral tablet, extended release 25 mg, XL Tablet, By Mouth, 03/21/22 9:00:00 EDT Start Date: 03/21/22 Stop Date: 03/21/22 Status: Completed Problem List Condition Effective Dates [...] Exam Date Time Procedure Performing Provider Status 03/20/22 9:24 PM XR Hip w/Pelvis 2-3 View Left Gretta Youngblood; Auth (Verified) Notes: (XR Hip w/Pelvis 2-3 View Left) Reason For Exam: Pain RESULT: XR Hip w/Pelvis 2-3 View Left XR Hip w/Pelvis 2-3 View Left Reason: Pain; Clinical Question(s): Position Fixation COMPARISON: 02/01/2022. TECHNIQUE: AP view of the pelvis along with AP and frog leg views of the left hip. FINDINGS: There is severe osteopenia with poor visualization of the pelvic bones and sacrum. Cannot exclude pubic ramus fracture on this study due to osteopenia. Status post left hip arthroplasty unchanged from prior study. There is moderate joint space narrowing at the right hip. Normal soft tissues. IMPRESSION: Technically limited examination due to severe osteopenia. Evaluation for pubic ramus and sacral fracture is severely limited. Left hip hardware status post arthroplasty is intact. No acute abnormality is identified.. WSN: [id number] Ordering Physician: Cb Mason Dictated By: William Farah MD Dictated Date/Time: 03/20/22 9:43 pm Reviewed By: William Farah MD Signed By: William Farah MD Signed Date/Time: 03/20/22 9:43 pm Transcribed By: BERENICE Transcribed Date/Time: 03/20/22 9:40 pm * Exam Date Time Procedure Performing Provider Status 03/20/22 9:24 PM Chest 2 Views Frontal and Lat Gretta Youngblood; Luis M (Verified) Notes: (Chest 2 Views Frontal and Lat) Reason For Exam: Shortness of Breath RESULT: Chest 2 Views Frontal and Lat Chest 2 Views Frontal and Lat Reason: Shortness of Breath; Clinical Question(s): CHF COMPARISON: 03/09/2022. FINDINGS: LINES AND TUBES: None. LUNGS AND PLEURA: The lungs are clear and hyperinflated with flattening of the diaphragm. Central vascular markings are slightly prominent but there is no pulmonary edema. No pleural effusion. No pneumothorax. HEART, MEDIASTINUM AND MAMADOU: Heart is normal in size. Normal upper mediastinal and hilar contour. BONES AND SOFT TISSUES: No acute abnormality. Status post ORIF right posterior eighth through 10th ribs. No acute rib fracture. IMPRESSION: Mild vascular congestion without edema or effusions. No pneumonia. Moderate COPD. WSN: [id number] Ordering Physician: Cb Mason Dictated By: William Farah MD Dictated Date/Time: 03/20/22 9:40 pm Reviewed By: William Farah MD Signed By: William Farah MD Signed Date/Time: 03/20/22 9:40 pm Transcribed By: BERENICE Transcribed Date/Time: 03/20/22 9:39 pm Vital Signs Most recent to oldest [Reference Range]: 1 2 3 Oxygen Saturation [94-100 %] 100 % (03/21/22 9:52 AM) 99 % (03/21/22 7:15 AM) 99 % (03/21/22 4:24 AM) Pulse Rate [55-90 bpm] 78 bpm (03/21/22 8:41 AM) 72 bpm (03/21/22 7:15 AM) 71 bpm (03/21/22 4:24 AM) Blood Pressure [90-138/55-84 mm Hg] 136/89mm Hg (03/21/22 9:52 AM) 147/91mm Hg *H* (03/21/22 8:41 AM) 147/91mm Hg *H* (03/21/22 8:38 AM) Respiratory Rate [16-30 br/min] 18 br/min (03/21/22 9:52 AM) 24 br/min (03/21/22 8:41 AM) 24 br/min (03/21/22 8:40 AM) Temperature [96.8-100.4 DegF] 98 DegF (03/21/22 9:52 AM) 98.7 DegF (03/20/22 8:23 PM) Liters per Minute 2.5 L/min (03/21/22 9:52 AM) 2.5 L/min (03/21/22 7:15 AM) 2 L/min (03/21/22 4:24 AM) Mode of Delivery (Oxygen) Nasal cannula (03/21/22 9:52 AM) Nasal cannula (03/21/22 7:15 AM) Nasal cannula (03/21/22 4:24 AM) Blood pressure sites Arm, left (03/21/22 9:52 AM) Arm, left (03/21/22 7:15 AM) Arm, left (03/21/22 2:45 AM) Temperature Route Oral (03/20/22 8:23 PM) Social History Social History Type Response Tobacco Use: 4 or less cigar ettes(less than 1/4 pack)/day in last 30 days. Sex
--- OUTSIDE RECORDS SUMMARY | 2023-08-15 20:31 | XMS_ITS | Continuity of Care Document ---
Author Name Unknown Organization [facility] Address [address] [place] [address]- Care Team Providers Care Mine Shifter Name Role Phone Jose LEE MD, Jorge Tsang Primary Care Physician [place] [facility] [place] [id number] Date(s): 10/19/22 - 11/18/22 [facility] [address] [place], [place] [address] Attending Physician: Anabel Mendosa Admitting Physician: AdmtrAnabel Referring Physician: Admtr Ar8 Allergies, Adverse Reactions, Alerts Substance Reaction Severity Status naproxen lesions on lips Active Toradol Morphine allergy Metaxalone Naproxen Cephalexin allergy hives Persistent Mild Active Keflex 1 rash Active Skelaxin H/O: migraine Active 1tolerates pip/tazo 11/17 Immunizations Given and Recorded Vaccine Date Status Refusal Reason [id number] 12y+ bivalent booster vax 08/23/22 Recorded SARS-CoV-2 [...] 0 Refills, Maintenance, 07/16/22 12:59:00 EDT, Tablet, [facility]/pharmacy #[id number], Partial fill upon patient request [...] Marleen Uriarte RN Position: [facility] RN [...] (view) Member Role: PCP Address: Address: [address] [place] [address] Name: Misty Nguyen RN Position: [facility] RN Member Role: Primary Care Nurse Name: Sarwat Aj RN Position: [facility] RN Member Role: Primary Care Nurse Name: Cassi Batista RN Position: [facility] RN Member Role: Primary Care Nurse Name: Daija Huitron RN Position: [facility] RN [...] Grisel Mcgowan RN Position: [facility] RN Member Role: Primary Care Nurse Name: Nasra Smith RN Position: [facility] RN Member Role: Primary Care Nurse Name: Cindy Grullon RN Position: [facility] RN Supv Member Role: Primary Care Nurse Name: Silas Knox RN Position: [facility] RN Member Role: Primary Care Nurse Name: Elham Melgar RN Position: [facility] RN Member Role: Primary Care Nurse Name: Elham Lee RN Position: [facility] PCO RN Member Role: Primary Care Nurse Name: Dariana Mariee RN Position: [facility] RN [...] Elena De León RN Position: [facility] Creative Services Manager Member Role: Primary Care Nurse Name: [...] Care Nurse Name: Pat Bowers RN Position: [facility] RN Member Role: Primary Care [...] Radha Flores RN Position: [facility] RN Member Role: Primary Care Nurse Name: Rose Kyle RN Position: [facility] Creative Services Manager Member Role: Primary Care Nurse Name: Aimee Salamanca Position: S RN Member Role: Primary Care Nurse Name: Jacobo Caceres Position: S RN Member Role: Primary Care Nurse Care Team Related Persons Name: STEVENSON HAMM Address: home [address] [address] Name: MELINA VARMA Address: [place] [address] Name: GARRY VARMA Address: home [address] [address] Name: BRIEN LANCASTER Address: home [address] [address]
--- OUTSIDE RECORDS SUMMARY | 2023-08-15 20:31 | XMS_ITS | Continuity of Care Document ---
Author Name Unknown Organization [facility] ter Address [address] [place] [address]- Care Team Providers Care Deckhand Tuna Boat Name Role Phone Jose LEE MD, Jorge Tsang Primary Care Physician [place] [facility] [place] - 04/16/[address] [address]- Discharge Disposition: A-D/C Walkout Attending Physician: Vik Vo MD Admitting Physician: Vik Vo MD Referring Physician: Not on Staff, Referring [...] mL, 6 Refills, Maintenance, 07/24/20 16:44:00 EDT, [facility]/pharmacy #[id number], 182, cm, 05/26/20 16:01:00 EDT, Height, 67, kg, 07/05/20 13:57:00 EDT, Dry Weight Start Date: 07/24/20 Status: Ordered albuterol CFC free 90 mcg/inh inhalation aerosol 2, puffs, Inhalation, Every 6 hours, PRN, j44.9, # 1 each, Refills 6, Tot. Refills 6, Maintenance, 07/24/20 16:44:00 EDT, Aerosol, Route to Pharmacy Electronically, [id number], [facility]/pharmacy #[id number], 182, cm, 05/26/20 16:01:00 E... [...] each,6 Refills, Maintenance, 03/21/22 9:48:00 EDT, Powder, [facility]/pharmacy #[id number], 182, cm, 03/12/22 4:49:00EDT, Height, 56.7, [...] 0 Refills, Maintenance, 04/03/22 16:44:00 EDT, Film, [facility]/pharmacy #[id number], Partial fill upon patient request [...] 0 Refills, Maintenance, 04/14/22 20:46:00 EDT, Tablet, [facility]/pharmacy #[id number], Partial fill upon patient request [...] 04/10/22 11:40:00 EDT, Route to Pharmacy Electronically, [facility]/pharmacy #[id number], Partial fill upon patientrequest if the [...] 11:15:26, Print MARTIN Number, [facility], [address] [place] [address], [id number], Constant Indicator Start Date: 03/31/07 Stop Date: [...] Range]: 1 2 3 Height 183 cm (04/16/22 9:20 AM) Weight 60 kg (04/16/22 9:20 AM) Oxygen Saturation [94-100 %] 98 % (04/16/22 9:20 AM) 100 % (04/16/22 9:06 AM) 100 % (04/16/22 8:52 AM) Pulse Rate [55-90 bpm] 74 bpm (04/16/22 9:06 AM) Blood Pressure [90-138/55-84 mm Hg] 125/72mm Hg (04/16/22 9:06 AM) Respiratory Rate [16-30 br/min] 18 br/min (04/16/22 9:06 AM) Temperature [96.8-100.4 DegF] 98.1 DegF (04/16/22 9:06 AM) Liters per Minute 3 L/min (04/16/22 9:20 AM) 3 L/min (04/16/22 9:06 AM) 3 L/min (04/16/22 8:52 AM) Mode of Delivery (Oxygen) Nasal cannula (04/16/22:20 AM) Nasal cannula (04/16/22 9:06 AM) Nasal cannula (04/16/22 8:52 AM) Blood pressure sites Arm, left (04/16/22 9:06 AM) Temperature Route Oral (04/16/22 9:06 AM) Dry Weight 60 kg (04/16/22 9:20 AM) Social History Social History Type Response Tobacco Use: 4 or less cigar ettes(less than 1/4 pack)/day in last 30 days. Interested in cessation: Yes. Type: Cigarettes. Sex
--- OUTSIDE RECORDS SUMMARY | 2023-08-15 20:31 | XMS_ITS | Continuity of Care Document ---
Author Name Unknown Organization [facility] ter Address [address] [place] [address]- Care Team Providers Care Jockey Room Custodian Name Role Phone Jose LEE MD, Jorge Tsang Primary Care Physician Encounter [facility] [place] Date(s): 01/24/20 - 02/29/[address] [address]- [place] Attending Physician: Jayce Corey MD Admitting Physician: Jayce Corey MD Referring Physician: Oscar Rios MD Allergies, [...] 10:39:00 EST, Aerosol, Route to Pharmacy Electronically, [id number], [facility]/pharmacy #[id number], 182, cm, 12/26/19 9:43:00 EST, He[place]... Start Date: 12/26/19 Status: Ordered apixaban = 5 mg, By Mouth, 2 times a day, To start after 7 days of 10 mg dose, 0 Refills, Maintenance, 05/27/19 14:17:22 EDT, Tablet Start Date: 05/27/19 Status: Ordered aquacel ag Perceptisel ag, See Instructions, # 1 box, Refills [...] Refills, Soft Stop, 12/26/19 9:58:00 EST, Tablet, [facility]/pharmacy #[id number], 182, cm, 12/26/19 9:43:00 EST, [...] 03/31/07 11:15:26, Print MARTIN Number, [facility], [address] [place] [address], [phone], Constant Indicator Start Date: 03/31/07 Stop Date: [...] Multiple fractures of ribs(Confirmed) 01/06/11 Active Old PA (myocardial infarctio n) X 3(Confirmed) Active PVD (peripheral vascular disease)(Confirmed) Active Active smoker, 1/2 upto 2 pp d X >30 years(Confirmed) Active 1Cardiac stents 1995 Social History Social History Type Response Tobacco Use: 4 or less cigar ettes(less than 1/4 pack)/day in last 30 days. Sex
--- OUTSIDE RECORDS SUMMARY | 2023-08-15 20:31 | XMS_ITS | Continuity of Care Document ---
Author Name Unknown Organization [facility] ter Address [address] [place] [address]- Care Team Providers Care Labor Law Professor Name Role Phone Jose LEE MD, Jorge Tsang Primary Care Physician [place] [facility] [place]/24/22 - 01/27/[address] [address] Discharge Disposition: A-D/C Home Attending Physician: Wade AMAYA, Blas Thomas Admitting Physician: Blas Olvera MD Referring Physician: Not on Staff, Referring MD Allergies, Adverse Reactions, Alerts Substance Reaction Severity Status Toradol hives Active Keflex rash Active Skelaxin H/O: migraine Active naproxen lesions on lips Active morphine 1 itch Active : Can tolerate Hydromorphone Immunizations Given [...] Acetaminophen Tablet 650 mg, Tablet, By Mouth, 01/27/22 8:00:00 EST Start Date: 01/27/22 Stop Date: 01/27/22 Status: Completed albuterol 0.083% inhalation solution 3 mL = 2.5 mg, Neb, Every 4 hours, PRN Wheezing/Shortness of Breath, j44.9, # 540 mL, 6 Refills, Maintenance, 07/24/20 16:44:00 EDT, [facility]/pharmacy #[id number], 182, cm, 05/26/20 16:01:00 EDT, Height, 67, kg, 07/05/20 13:57:00 EDT, Dry Weight Start Date: 07/24/20 Status: Ordered albuterol CFC free 90 mcg/inh inhalation aerosol 2, puffs, Inhalation, Every 6 hours, PRN, j44.9, # 1 each, Refills 6, Tot. Refills 6, Maintenance, 07/24/20 16:44:00 EDT, Aerosol, Route to Pharmacy Electronically, [id number], [facility]/pharmacy #[id number], 182, cm, 05/26/20 16:01:00 E... Start Date: 07/24/20 Status: Ordered aspirin 81 mg oral tablet 1 tablet = 81 mg, By Mouth, Daily, # 30 tablet, 0 Refills, Maintenance, 05/23/19 1:08:58 EDT, Tablet Start Date: 05/23/19 Status: Ordered atorvastatin 80 mg oral tablet By Mouth, Daily at supper, 0 Refills, Maintenance, 07/01/14 14:30:54, Tablet Start Date: 07/01/14 Status: Ordered docusate sodium 100 mg oral capsule 100 mg, 1, capsule, By Mouth, 2 times a day, # 20 capsule, Refills 0, Tot. Refills 0, Maintenance, 01/27/22 8:37:00 EST, Route to Pharmacy Electronically, [facility]/pharmacy #[id number], Partial fill upon patient request if the [...] oral capsule 300 mg, Capsule, By Mouth, 01/27/22 9:00:00 EST Start Date: 01/27/22 Stop Date: 01/27/22 Status: Completed HYDROmorphone Inj 0.5 mg, Injection, IV Push Slowly, Every 3 hours, do not give unless oxycodone is already given, PRN for Pain , Severe, Routine, 01/24/22 23:28:00 EST Start Date: 01/24/22 Stop Date: 01/27/22 Status: Discontinued Incruse Ellipta 62.5 mcg/inh inhalation powder 1 each, Inhalation, Every 24 hours, doses should be taken at least 24 hours apart, j44.9, # 1 each,6 Refills, Maintenance, 08/13/20 16:33:00 EDT, Powder, [facility]/pharmacy #[id number], 182, cm, 05/26/20 16:01:00 [...] 0 Refills, Maintenance, 11/01/21 10:44:00 EST, Gum, [facility]/pharmacy #[id number], Partial fill upon patient request if the prescription is for a schedule II opioid drug., 182.8... Start Date: 11/01/21 Status: Ordered oxyCODONE 5 mg oral tablet 5 mg, 1, tablet, By Mouth, Every 6 hours, PRN, for 5 days, # 20 tablet, Refills 0, Tot. Refills 0, Acute 02/01/22 8:37:00 EST, Pain , Moderate, 01/27/22 8:37:00 EST, Route to Pharmacy Electronically,[facility]/pharmacy #[id number], Partial fill upon patient reque... Start Date: 01/27/22 Stop Date: 02/01/22 Status: Ordered Pantoprazole = 40 mg, By [...] 6, 03/31/07 11:15:26, Print MARTIN Number, [facility], [address] [place] [address], [phone], Constant Indicator Start Date: 03/31/07 Stop Date: 10/27/07 Status: Ordered Toprol XL 25 mg oral tablet, extended release 25 mg, XL Tablet, By Mouth, 01/27/22 9:00:00 EST Start Date: 01/27/22 Stop Date: 01/27/22 Status: Completed Tylenol 325 mg oral tablet 650 mg, 2, tablet, By Mouth, Every 4 hours, PRN, # 30 tablet, Refills 0, Tot. Refills 0, Maintenance, Pain , Mild, 11/08/21 12:55:00 EST, Route to Pharmacy Electronically, [facility]/pharmacy #[id number], Partialfill upon patient request if the prescription [...] Exam Date Time Procedure Performing Provider Status 01/24/22 5:32 PM Chest Portable Moni Dallas; Auth ( Verified) Notes: (Chest Portable) Reason For Exam: Shortness of Breath RESULT: Chest Portable Chest Portable Hx of Present Illness: pt presents with complaints of SOB for past couple days hx COPD on 02 at baseline 2 liters pt denies any fever or chills. no n v d; Reason: Shortness of Breath; Clinical Question(s): CHF COMPARISON: Multiple priors, most recent dated 01/20/2022 FINDINGS: LINES AND TUBES: None. LUNGS AND PLEURA: Slightly hyperinflated lungs, suggestive of COPD. No focal consolidation. Normal pulmonary vascularity. No pleural effusion. No pneumothorax. Apparent curvilinear lucencies in the right upper lung are likely secondary to skin folds. HEART, MEDIASTINUM AND MAMADOU: Heart is normal in size. Normal upper mediastinal and hilar contour. BONES AND SOFT TISSUES: No acute abnormality. Old distal right clavicular fracture noted. Right rib fixation hardware redemonstrated. Healed left rib fractures again noted. IMPRESSION: Hyperinflated lungs, suggestive of COPD. No radiographic evidence of acute cardiopulmonary disease. WSN: [id number] Ordering Physician: Marci Carmona Dictated By: Manisha Gordon MD Dictated Date/Time: 01/24/22 5:49 pm Reviewed By: Manisha Gordon MD Signed By: Manisha Gordon MD Signed Date/Time: 01/24/22 5:49 pm Transcribed By: BERENICE Transcribed Date/Time: 01/24/22 5:46 pm Vital Signs Most recent to oldest [Reference Range]: 1 2 3 Height 182 cm (01/27/22 7:59 AM) 182 cm (01/27/22 5:00 AM) 182 cm (01/26/22 11:41 PM) Weight 52.7 kg (01/26/22 3:07 PM) 61 kg (01/26/22 9:42 AM) 61 kg (01/25/22 9:48 AM) Oxygen Saturation [94-100 %] 96 % (01/27/22 7:59 AM) 100 % (01/27/22 5:00 AM) 93 % *L* (01/26/22 11:41 PM) Pulse Rate [55-90 bpm] 83 bpm (01/27/22 9:23 AM) 83 bpm (01/27/22 7:59 AM) 93 bpm *H* (01/27/22 5:00 AM) Body Mass Index [18.5-24.99] 15.91 *L* (01/26/22 3:07 PM) 18.42 *L* (01/26/22 9:42 AM) 18.42 *L* (01/25/22 9:48 AM) Blood Pressure [90-138/55-84 mm Hg] 120/78mm Hg (01/27/22 9:23 AM) 120/78mm Hg (01/27/22 7:59 AM) 149/85mm Hg *H* (01/27/22 5:00 AM) Respiratory Rate [16-30 br/min] 18 br/min (01/27/22 10:50 AM) 17 br/min (01/27/22 9:23 AM) 17 br/min (01/27/22 9:02 AM) Temperature [96.8-100.4 DegF] 98.9 DegF (01/27/22 7:59 AM) 98.3 DegF (01/27/22 5:00 AM) 98.0 DegF (01/26/22 11:41 PM) Liters per Minute 3 L/min (01/27/22 7:59 AM) 4 L/min (01/27/22 5:00 AM) 2 L/min (01/26/22 8:20 PM) Mode of Delivery (Oxygen) Nasal cannula (01/27/22 7:59 AM) Nasal cannula (01/27/22 5:00 AM) Nasal cannula (01/26/22 11:41 PM) Blood pressure sites Arm, left (01/27/22 7:59 AM) Arm, left (01/27/22 5:00 AM) Arm, left (01/26/22 11:41 PM) Temperature Route Oral (01/27/22 7:59 AM) Oral (01/27/22 5:00 AM) Oral (01/26/22 11:41 PM) Weight Obtained Via Bed scale (01/26/22 3:07 PM) Social History Social History Type Response Tobacco Use: 2 cigarettes a day . Sex
--- OUTSIDE RECORDS SUMMARY | 2023-08-15 20:31 | XMS_ITS | Continuity of Care Document ---
Author Name Unknown Organization [facility] ter Address [address] [place] [address]- Care Team Providers Care Overhauler Bus Truck Name Role Phone Not on Staff, PCP Primary Care Physician Unavail able Encounter [facility] [place] Date(s): 07/10/22 - 07/16/[address] [address] Discharge Disposition: A-Transfer VNA/Home Health Attending Physician: Harriet AMAYA, Mehul Admitting Physician: Stacy Case DO Referring Physician: Not on Staff, Referring [...] 0 Refills, Maintenance, 07/16/22 12:59:00 EDT, Tablet, [facility]/pharmacy #[id number], Partial fill upon patient [...] opioid drug. Start Date: 07/11/22 Status: Ordered docusate-senna 50 mg-8.6 mg oral capsule 2 capsule, By Mouth, 2 times a day, PRN Constipation, for 14 days, # 28 capsule, 0 Refills, Acute 07/30/22 13:02:00 EDT, 07/16/22 13:02:00 EDT, Capsule, [facility]/pharmacy #[id number], Partial fill upon patient request if the prescription is for a schedule II opi... Start Date: 07/16/22 Stop Date: 07/30/22 Status: Ordered Duloxetine = 60 mg, By [...] oral capsule 600 mg, Capsule, By Mouth, 07/16/22 9:00:00 EDT Start Date: 07/16/22 Stop Date: 07/16/22 Status: Completed HYDROmorphone 2 mg oral tablet 3 mg, Tablet, By Mouth, Every 4 hours, PRN for Pain , Severe, Routine, 07/10/22 18:36:00 EDT Start Date: 07/10/22 Stop Date: 07/17/22 Status: Discontinued HYDROmorphone 2 mg oral tablet 1 tablet = 2 mg, By Mouth, Every 4 hours, PRN for pain, for 3 days, # 18 tablet, 0 Refills, Acute 07/19/22 13:04:00 EDT, 07/16/22 13:04:00 EDT, Tablet, [facility]/pharmacy #[id number], Partial fill upon patient request if the prescription is for a schedule II opio... Start Date: 07/16/22 Stop Date: 07/19/22 Status: Ordered Incruse Ellipta 62.5 mcg/inh inhalation [...] oral tablet 2.5 mg, Tablet, By Mouth, 07/16/22 9:00:00 EDT Start Date: 07/16/22 Stop Date: 07/16/22 Status: Completed loperamide 2 mg oral tablet 1 tablet = 2 mg, By Mouth, Every 4 hours, PRN as needed for loose stool, not to exceed 16 mg/day, #24 tablet, 0 Refills, Maintenance, 07/11/22 10:21:00 EDT, Tablet, Partial fill upon patient requestif the prescription is for a schedule II opioid drug. Start Date: 07/11/22 Status: Ordered metoprolol 25 mg oral tablet, extended release 25 mg, XL Tablet, By Mouth, 07/16/22 9:00:00 EDT Start Date: 07/16/22 Stop Date: 07/16/22 Status: Completed Metoprolol Succinate ER 25 mg oral tablet, extended release TAKE 1 TABLET BY MOUTH EVERY DAY Start Date: 07/02/22 Status: Ordered MiraLax oral powder for reconstitution = 17 Gm, By Mouth, Daily, for 14 days, dissolve in water before taking, # 238 Gm, 0 Refills, Acute 07/30/22 13:03:00 EDT, 07/16/22 13:03:00 EDT, REC Powder, [facility]/pharmacy #[id number], Partial fill upon patient request if the prescription is for a schedule II... Start Date: 07/16/22 Stop Date: 07/30/22 Status: Ordered pantoprazole 40 mg oral delayed release tablet TAKE 1 TABLET BY MOUTH TWICE A DAY FOR 30 DAYS Start Date: 07/02/22 Status: Ordered predniSONE 20 mg oral tablet 1 tablet = 20 mg, By Mouth, Daily, for 3 days, # 3 tablet, 0 Refills, Acute 07/19/22 13:07:00 EDT, 07/16/22 13:07:00 EDT, Tablet, [facility]acy [facility][id number], Partial fill upon patient request if the prescription is for a schedule II opioid drug., 172, cm, 08... Start Date: 07/16/22 Stop Date: 07/19/22 Status: Ordered Symbicort 160mcg/4.5mcg Inhaler INHALE 2 [...] Date: 07/03/22 Stop Date: 07/10/22 Status: Ordered Results Radiology Reports * Exam Date Time Procedure Performing Provider Status 07/11/22 1:17 PM Chest Portable Rowena Alberto; Luis M (Verified) Notes: (Chest Portable) Reason For Exam: Hemoptysis RESULT: Chest Portable Chest Portable Reason: Hemoptysis; Clinical Question(s): Pneumonia COMPARISON: 07/05/2022. FINDINGS: LINES AND TUBES: None. LUNGS AND PLEURA: Again demonstrated are hyperexpanded lungs compatible with COPD. There is no evidence of focal airspace disease. No pleural effusion. No pneumothorax. HEART, MEDIASTINUM AND MAMADOU: Heart is normal in size. Normal upper mediastinal and hilar contour. BONES AND SOFT TISSUES: No acute abnormality. Again demonstrated is internal fixation hardware at the posterior mid to lower right ribs. Again demonstrated is a single screw overlying the upper to mid right chest which may represent displaced hardware. IMPRESSION: Again demonstrated are hyperexpanded lungs compatible with COPD. There is no evidence of focal airspace disease. WSN: [id number] Ordering Physician: Claude Wong Dictated By: Shannan Heredia MD Dictated Date/Time: 07/11/22 1:35 pm Reviewed By: Shannan Heredia MD Signed By: Shannan Heredia MD Signed Date/Time: 07/11/22 1:35 pm Transcribed By: BERENICE Transcribed Date/Time: 07/11/22 1:33 pm Vital Signs Most recent to oldest [Reference Range]: 1 2 3 Height 172 cm (07/16/22 4:13 AM) 172 cm (07/15/22 11:53 PM) 172 cm (07/15/22 9:33 PM) Weight 54.7 kg (07/12/22 4:20 AM) 55.1 kg (07/11/22 6:03 AM) Oxygen Saturation [94-100 %] 97 % (07/16/22 8:00 AM) 100 % (07/16/22 4:13 AM) 98 % (07/15/22 11:53 PM) Pulse Rate [55-90 bpm] 110 bpm *H* (07/16/22 10:39 AM) 110 bpm *H* (07/16/22 8:00 AM) 81 bpm (07/16/22 4:13 AM) Body Mass Index [18.5-24.99] 18.62 (07/11/22 6:03 AM) Blood Pressure [90-138/55-84 mm Hg] 129/75mm Hg (07/16/22 10:39 AM) 129/75mm Hg (07/16/22 10:39 AM) 129/75mm Hg (07/16/22 8:00 AM) Respiratory Rate [16-30 br/min] 18 br/min (07/16/22 11:38 AM) 18 br/min (07/16/22 10:38 AM) 18 br/min (07/16/22 10:38 AM) Temperature [96.8-100.4 DegF] 99.3 DegF (07/16/22 8:00 AM) 97.6 DegF (07/16/22 4:13 AM) 97.5 DegF (07/15/22 11:53 PM) Liters per Minute 3 L/min (07/16/22 8:00 AM) 3 L/min (07/16/22 4:13 AM) 3 L/min (07/15/22 11:53 PM) Mode of Delivery (Oxygen) Nasal cannula (07/16/22 8:00 AM) Nasal cannula (07/16/22 4:13 AM) Nasal cannula (07/15/22 11:53 PM) Blood pressure sites Arm, right (07/16/22 8:00 AM) Arm, right (07/16/22 4:13 AM) Arm, right (07/15/22 11:53 PM) Temperature Route Oral (07/16/22 8:00 AM) Axillary (07/16/22 4:13 AM) Axillary (07/15/22 11:53 PM) Dry Weight 55.1 kg (07/11/22 6:03 AM) Weight Obtained Via Bed scale (07/12/22 4:20 AM) Bed scale (07/11/22 6:03 AM) Dry Weight Obtained Via Bed scale (07/11/22 6:03 AM)
--- OUTSIDE RECORDS SUMMARY | 2023-08-15 20:31 | XMS_ITS | Continuity of Care Document ---
Author Name Unknown Organization [facility] ter Address [address] [place] [address]- Care Team Providers Care Clinical Associate Name Role Phone oJse LEE MD, Jorge Tsang Primary Care Physician [phone] Encounter [facility] Date(s): 11/12/22 - 11/13/[address] [address]- Encounter Diagnosis COPD with exacerbation(Final) - 11/12/22 CAD in [place]op[place] artery(Final) - 11/12/22 Anxiety(Final) - 11/12/22 Smoking(Final) - 11/12/22 Discharge Disposition: A-D/C Home Attending Physician: Talon Curry MD Admitting Physician: Talon Curry MD Referring Physician: Not on Staff, Referring [...] EST, Suppository Start Date: 10/08/22 Status: Ordered dexamethasone 6 mg oral tablet 1 tablet = 6 mg, By Mouth, Daily, for 7 days, # 7 tablet, 0 Refills, Acute 11/14/22 13:01:00 EST, 11/07/22 13:01:00 EST, Tablet, [facility] 3, Partial fill upon patient request if the prescription is for a schedule II opioid drug., 183, cm... Start Date: 11/07/22 Stop Date: 11/14/22 Status: Ordered dicyclomine 10 mg oral capsule 1 capsule = 10 mg, By Mouth, 4 times a day, 0 Refills, Maintenance, 04/27/22 20:45:00 EDT, Partial fill upon patient request if the prescription is for a schedule II opioid drug. Start Date: 04/27/22 Status: Ordered Dilaudid 2 mg oral tablet 2 mg, Tablet, By Mouth, Once, STAT, 11/12/22 19:31:00 EST, Stop date 11/12/22 19:31:00 EST Start Date: 11/12/22 Stop Date: 11/12/22 Status: Completed docusate sodium 100 mg oral [...] Mouth, Daily Start Date: 04/27/22 Status: Ordered Protonix 40 mg oral delayed release tablet 1 tablet = 40 mg, By Mouth, Daily, # 7 tablet, 0 Refills, Maintenance, 11/07/22 13:01:00 EST, EC Tablet, 183, cm, 11/07/22 5:16:00 EST, Height, 58.8, kg, 11/07/22 5:16:00 EST, Dry Weight Start Date: 11/07/22 Stop Date: 11/14/22 Status: Ordered Santyl 250 u/gm ointment 1 [...] for Microbiology Reports Name Date Blood Culture 11/12/22 Blood Culture #2 11/12/22 Microbiology Reports TEST:Blood Culture STATUS:Unauthenticated BODY SITE: SOURCE:Blood COLLECTED DATE/TIME:11/12/22 5:00 PM Blood Culture SPECIMEN DESCRIPTION : BLOOD LT HAND SPECIAL REQUESTS : NONE CULTURE : NO GROWTH AFTER 24 HOURS REPORT STATUS : PRELIMINARY REPORT TEST:Blood Culture, Second Order STATUS:Unauthenticated BODY SITE: SOURCE:Blood COLLECTED DATE/TIME:11/12/22 4:50 PM Blood Culture, Second Order SPECIMEN DESCRIPTION : BLOOD R FA SPECIAL REQUESTS : NONE CULTURE : NO GROWTH AFTER 24 HOURS REPORT STATUS : PRELIMINARY REPORT Radiology Reports * Exam Date Time Procedure Performing Provider Status 11/12/22 5:18 PM Chest Portable Angela Blanco; Auth (Verified) Notes: (Chest Portable) Reason For Exam: Shortness of Breath RESULT: Chest Portable Chest Portable Reason: Shortness of Breath; Clinical Question(s): CHF COMPARISON: 11/05/2022. FINDINGS: LINES AND TUBES: None. LUNGS AND PLEURA: Large lung volumes. Apparent coarse interstitial markings are unchanged from prior radiographs correspond to normal lung markings intermixed with emphysematous changes on prior CT. Otherwise, lungs are clear, with no new airspace opacity. No pleural effusion. No pneumothorax. HEART, MEDIASTINUM AND MAMADOU: Heart is normal in size. Aorta is tortuous and partially calcified. BONES AND SOFT TISSUES: No acute abnormality. Prior fixation of right-sided 7th-9th rib fractures with plates and screws. One superiorly displaced screw projects over the right sixth rib. Partial visualization irregularity of the right distal clavicle corresponding to site of prior fracture. IMPRESSION: COPD. No acute abnormality. WSN: [id number] Ordering Physician: Juana Harmon Dictated By: Deja Jaquez MD Dictated Date/Time: 11/12/22 5:27 pm Reviewed By: Deja Jaquez MD Signed By: Deja Jaquez MD Signed Date/Time: 11/12/22 5:27 pm Transcribed By: BERENICE Transcribed Date/Time: 11/12/22 5:23 pm Vital Signs Most recent to oldest [Reference Range]: 1 2 3 Oxygen Saturation [94-100 %] 96 % (11/12/22 9:13 PM) 98 % (11/12/22 6:49 PM) 100 % (11/12/22 4:31 PM) Pulse Rate [55-90 bpm] 84 bpm (11/12/22 9:13 PM) 86 bpm (11/12/22 6:49 PM) 79 bpm (11/12/22 4:31 PM) Blood Pressure [90-138/55-84 mm Hg] 132/78mm Hg (11/12/22 9:13 PM) 135/66mm Hg (11/12/22 6:49 PM) 141/74mm Hg *H* (11/12/22 4:31 PM) Respiratory Rate [16-30 br/min] 19 br/min (11/12/22 9:13 PM) 19 br/min (11/12/22 7:43 PM) 21 br/min (11/12/22 6:49 PM) Temperature [96.8-100.4 DegF] 99.5 DegF (11/12/22 4:31 PM) 99.5 DegF (11/12/22 4:30 PM) Liters per Minute 5 L/min (11/12/22 9:13 PM) 5 L/min (11/12/22 6:49 PM) 3 L/min (11/12/22 4:31 PM) Mode of Delivery (Oxygen) Nasal cannula (11/12/22 9:13 PM) Nasal cannula (11/12/22 6:49 PM) Nasal cannula (11/12/22 4:31 PM) Blood pressure sites Arm, left (11/12/22 4:31 PM) Temperature Route Oral (11/12/22 4:31 PM) Oral (11/12/22 4:30 PM) Social History Social History Type Response Tobacco Use: 4 or less cigar ettes(less than 1/4 pack)/day in last 30 days. Sex EKG study * Event Display: EKG Authored Date: * Event Display: ECG 12-Lead Authored Date: Please click on pdf link to open report * Event Display: ECG 12-Lead Authored Date: Ventricular Rate: 85 BPM Atrial Rate: 85 BPM P-R Interval: 132 ms QRS Duration: 94 ms Q-T Interval: 354 ms QTC Calculation(Bazett): 421 ms P [place]: 80 degrees R [place]: -39 degrees T [place]: 72 degrees Normal sinus rhythm Left axis deviation Incomplete right bundle branch block Abnormal ECG When compared with ECG of 05-NOV-2022 18:21, No significant change was found Confirmed by TONY DIOP MD ([id number]) on 11/12/2022 9:32:34 PM [place]: TONY DIOP MD Portable XR Chest Views * BHSPowerscribe , CIS S: TRANSCRIBE Deja Jaquez MD: VERIFY Event Display: Result: Authored Date: [id number] Chest Portable Reason: Shortness of Breath; Clinical Question(s): CHF COMPARISON: 11/05/2022. FINDINGS: LINES AND TUBES: None. LUNGS AND PLEURA: Large lung volumes. Apparent coarse interstitial markings are unchanged from prior radiographs correspond to normal lung markings intermixed with emphysematous changes on prior CT. Otherwise, lungs are clear, with no new airspace opacity. No pleural effusion. No pneumothorax. HEART, MEDIASTINUM AND MAMADOU: Heart is normal in size. Aorta is tortuous and partially calcified. BONES AND SOFT TISSUES: No acute abnormality. Prior fixation of right-sided 7th-9th rib fractures with plates and screws. One superiorly displaced screw projects over the right sixth rib. Partial visualization irregularity of the right distal clavicle corresponding to site of prior fracture. IMPRESSION: COPD. No acute abnormality. WSN: [id number] Ordering Physician: Juana Harmon Dictated By: Deja Jaquez MD Dictated Date/Time: 11/12/22 5:27 pm Reviewed By: Deja Jaquez MD Signed By: Deja Jaquez MD Signed Date/Time: 11/12/22 5:27 pm Transcribed By: BERENICE Transcribed Date/Time: 11/12/22 5:23 pm Patient Care team information Care Team Personnel Name: Michael Girard RN Position: S RN Member Role: Primary Care Nurse Name: Radha Hsieh RN Position: S RN Member Role: Primary Care Nurse Name: Glo Camarena RN Position: S RN Member Role: Primary Care Nurse Name: Fatimah Bennett RN Position: [facility] RN Member Role: Primary Care Nurse Name: Mariely Hardy RN Position: [facility] RN Member Role: Primary Care Nurse Name: Sydney Zelaya Position: [facility] PCO OFFICE STAFF Member Role: Lifetime Consulting Physician Name: Judd Barahona RN Position: [facility] RN Member Role: Primary Care Nurse Name: Mag Harry RN Position: [facility] RN Member Role: Primary Care Nurse Name: An Blount RN Position: [facility] RN Supv Member Role: Primary Care Nurse Name: Marianna Ng RN Position: [facility] RN Member Role: Primary Care Nurse Name: Avani Odell RN Position: [facility] RN Member Role: Primary Care Nurse Name: Elizabeth Noriega RN Position: [facility] RN Member Role: Primary Care Nurse Name: Ruben Bello RN Position: [facility] RN Member Role: Primary Care Nurse Name: Zoë Thompson RN Position: [facility] RN Member Role: Primary Care Nurse Name: Araceli Simon RN Position: [facility] RN Member Role: Primary Care Nurse Name: Jorge Garcia III, MD Position: [facility] Ambulatory (view) Member Role: PCP Address: Address: [address] [place] [address] Name: Misty Nguyen RN Position: [facility] RN Member Role: Primary Care Nurse Name: Sarwat Aj RN Position: [facility] RN Member Role: Primary Care Nurse Name: Cassi Batista RN Position: [facility] RN Member Role: Primary Care Nurse Name: Ellis Mayfield RN Position: [facility] RN Member Role: Primary Care Nurse Name: Ayah Robison RN Position: [facility] RN Member Role: Primary Care Nurse Name: Kirstin Enriquez RN Position: [facility] RN Member Role: Primary Care Nurse Name: Jina Smalls RN Position: [facility] RN Member Role: Primary Care Nurse Name: Laura Clements RN Position: [facility] RN Member Role: Primary Care Nurse Name: Colette Syed RN Position: [facility] RN Member Role: Primary Care Nurse Name: Muriel Daley RN Position: [facility] RN Supv Member Role: Primary Care Nurse Name: Darlyn Alvarez RN Position: [facility] RN Member Role: Primary Care Nurse Name: Maribell Mejias RN Position: [facility] RN Member Role: Primary Care Nurse Name: Rachna Renteria RN Position: [facility] RN Member Role: Primary Care Nurse Name: Zohreh Pink RN Position: [facility] RN Member Role: Primary Care Nurse Name: Sophie Berrios RN Position: [facility] RN Member Role: Primary Care Nurse Name: Nasra Smith RN Position: [facility] RN Member Role: Primary Care Nurse Name: Cindy Grullon RN Position: [facility] RN Supv Member Role: Primary Care Nurse Name: Elham Melgar RN Position: [facility] RN Member Role: Primary Care Nurse Name: Elham Lee RN Position: [facility] PCO RN Member Role: Primary Care Nurse Name: Ana María Cat RN Position: [facility] RN Member Role: Primary Care Nurse Name: Flor Holley Position: [facility] RN Member Role: Primary Care Nurse Name: Bret Aguirre RN Position: [facility] RN Member Role: Primary Care Nurse Name: Rosa Elena Lora RN Position: [facility] RN Member Role: Primary Care Nurse Name: Ghazal Moreno Position: [facility] RN Member Role: Primary Care Nurse Name: Audra Martinez RN Position: [facility] RN Member Role: Primary Care Nurse Name: Shahbaz Bobo RN Position: [facility] RN Member Role: Primary Care Nurse Name: Jennifer Yin LPN Position: [facility] RN Member Role: Primary Care Nurse Name: Alina Arce RN Position: [facility] RN Member Role: Primary Care Nurse Name: Marcelo Schneider RN Position: [facility] ED RN W/OE and Tasks Member Role: Primary Care Nurse Name: Radha Masterson RN Position: [facility] RN Member Role: Primary Care Nurse Name: Amy Larios RN Position: [facility] RN Member Role: Primary Care Nurse Name: Indira Lindsey RN Position: [facility] SN RN Member Role: Primary Care Nurse Name: Rosa Elena Pope RN Position: [facility] RN Member Role: Primary Care Nurse Name: Florentino Garcia RN Position: [facility] RN Member Role: Primary Care Nurse Name: Cristel Moreno RN Position: [facility] SN RN Member Role: Primary Care Nurse Name: Rosa Elena De León RN Position: [facility] Binder Chainstitch Member Role: Primary Care Nurse Name: Tulio Pina RN Position: [facility] RN Member Role: Primary Care Nurse Name: Maximiliano Claros RN Position: [facility] RN Member Role: Primary Care Nurse Name: Narda Barnes RN Position: [facility] RN Member Role: Primary Care Nurse Name: Zoë Cisse RN Position: [facility] RN Member Role: Primary Care Nurse Name: Pat Bowers RN Position: [facility] SN RN Member Role: Primary Care Nurse Name: Tayler Cabello RN Position: [facility] RN Member Role: Primary Care Nurse Name: Hilaria Aparicio RN Position: [facility] RN Member Role: Primary Care Nurse Name: Carly Rosado RN Position: [facility] RN Supv Member Role: Primary Care Nurse Name: Sydney Rosado RN Position: [facility] RN Member Role: Primary Care Nurse Name: Uriel Dumont Position: [facility] RN Member Role: Primary Care Nurse Name: Selene Vazquez RN Position: [facility] RN Member Role: Primary Care Nurse Name: Leyla Veram LPN Position: [facility] RN Member Role: Primary Care Nurse Name: Rody Mays RN Position: [facility] RN Member Role: Primary Care Nurse Name: Radha Flores RN Position: [facility] RN Member Role: Primary Care Nurse Name: Rose Kyle RN Position: [facility] Binder Chainstitch Member Role: Primary Care Nurse Name: Aimee Salamanca Position: [facility] RN Member Role: Primary Care Nurse Name: Michael Stewart RN Position: [facility] ED RN W/OE and Tasks Member Role: Patient Care Provider Name: Teressa Farley RN Position: [facility] ED RN W/OE and Tasks Member Role: Patient Care Provider Name: Juana Harmon MD Position: [facility] Resident Member Role: ED Resident Address: Address: [address] [place] [address]- Name: Talon Curry MD Position: [facility] ED Medicine MD Member Role: Admitting Physician Address: Address: [address] [place] [address]- Care Team Related Persons Name: STEVENSON HAMM Address: home [address] [place] [address] Name: MELINA VARMA Address: [place] [address] Name: GARRY VARMA Address: home [address] [address] Name: BRIEN LANCASTER Address: home [address] [address]
--- OUTSIDE RECORDS SUMMARY | 2023-08-15 20:31 | XMS_ITS | Continuity of Care Document ---
Author Name Unknown Organization [facility] Address [address] [place] [address]- Care Team Providers Care Tin Recovery Worker Name Role Phone Jose LEE MD, Jorge Tsang Primary Care Physician [phone] Encounter [facility] Date(s): 02/15/22 - 04/17/22 [facility] [address] [place] [address]- Attending Physician: Odilia Gamboa NP Admitting Physician: Odilia Gamboa NP Allergies, Adverse Reactions, Alerts Substance Reaction Severity [...] mL, 6 Refills, Maintenance, 07/24/20 16:44:00 EDT, [facility]/pharmacy #[id number], 182, cm, 05/26/20 16:01:00 EDT, Height, 67, kg, 07/05/20 13:57:00 EDT, Dry Weight Start Date: 07/24/20 Status: Ordered albuterol CFC free 90 mcg/inh inhalation aerosol 2, puffs, Inhalation, Every 6 hours, PRN, j44.9, # 1 each, Refills 6, Tot. Refills 6, Maintenance, 07/24/20 16:44:00 EDT, Aerosol, Route to Pharmacy Electronically, [id number], [facility]/pharmacy #[id number], 182, cm, 05/26/20 16:01:00 [...] each,6 Refills, Maintenance, 03/21/22 9:48:00 EDT, Powder, [facility]/pharmacy #[id number], 182, cm, 03/12/22 4:49:00EDT, Height, [...] 0 Refills, Maintenance, 04/03/22 16:44:00 EDT, Film, [facility]/pharmacy #[id number], Partial fill upon [...] 0 Refills, Maintenance, 04/14/22 20:46:00 EDT, Tablet, [facility]/pharmacy #[id number], Partial [...] 04/10/22 11:40:00 EDT, Route to Pharmacy Electronically, [facility]/pharmacy #[id number], Partial fill upon patientrequest if [...] 6, 03/31/07 11:15:26, Print MARTIN Number, ADS [facility], [address] [place] [id number], [phone], Constant Indicator Start Date: 03/31/07 Stop Date: [...]
--- OUTSIDE RECORDS SUMMARY | 2023-08-15 20:31 | XMS_ITS | Continuity of Care Document ---
Author Name Unknown Organization [facility] ter Address [address] [place] [address]- Care Team Providers Care Stock Associate Name Role Phone Jose LEE MD, Jorge Tsang Primary Care Physician Encounter [facility] Date(s): 07/05/22 - 07/06/[address] [address]- Discharge Disposition: A-Transfer SNF Attending Physician: Talon Curry MD Admitting Physician: [...] 2 mg, Tablet, By Mouth, Once, STAT, 07/05/22 21:03:00 EDT, Stop date 07/05/22 21:03:00 EDT Start Date: 07/05/22 Stop Date: 07/05/22 Status: Completed HYDROmorphone 2 mg oral tablet 1 tablet = 2 mg, By Mouth, Every 6 hours, PRN Pain , Severe, for 3 days, # 12 tablet, 0 Refills, Acute 07/08/22 22:44:00 EDT, 07/05/22 22:44:00 EDT, Tablet, Partial fill upon patient request if the prescription is for a schedule II opioid drug. Start Date: 07/05/22 Stop Date: 07/08/22 Status: Ordered HYDROmorphone 2 mg oral tablet 2 mg, Tablet, By Mouth, On Discharge, PRN for Pain , Severe, STAT, 07/06/22 0:19:00 EDT Start Date: 07/06/22 Stop Date: 07/06/22 Status: Discontinued Incruse Ellipta 62.5 mcg/inh inhalation powder USE [...] Exam Date Time Procedure Performing Provider Status 07/05/22 9:28 PM Shoulder Min 2 Views Right aMgaly Crook; Auth (Verified) Notes: (Shoulder Min 2 Views Right) Reason For Exam: Pain RESULT: Shoulder Min 2 Views Right Shoulder Min 2 Views Right, 2 views Hx of Present Illness: Pt dc' d to SNF from here 2 hrs prior. Pt with chronic pain, was taking Dilaudid here and when he got to facility he was told it was discontinued. Pt sent back for pain management.; Reason: Pain; Clinical Question(s): Fracture COMPARISON: None. FINDINGS: No acute fracture or dislocation. High riding humerus likely related to chronic rotator cuff tendinopathy. Deformity of the distal clavicle likely related to remote trauma. Partially imaged instrumentation right-sided ribs. IMPRESSION: Chronic abnormalities without definite acute abnormality. WSN: [id number] Ordering Physician: Fredy Hallman Dictated By: Alexei Hodges MD Dictated Date/Time: 07/05/22 9:39 pm Reviewed By: Alexei Hodges MD Signed By: Alexei Hodges MD Signed Date/Time: 07/05/22 9:39 pm Transcribed By: BERENICE Transcribed Date/Time: 07/05/22 9:34 pm * Exam Date Time Procedure Performing Provider Status 07/05/22 9:28 PM Chest 2 Views Frontal and Lat Cherelle Crook (Verified) Notes: (Chest 2 Views Frontal and Lat) Reason For Exam: Shortness of Breath RESULT: Chest 2 Views Frontal and Lat Chest 2 Views Frontal and Lat Hx of Present Illness: Shortness of breath COMPARISON: 07/02/2022 FINDINGS: LINES AND TUBES: None. LUNGS AND PLEURA: Clear lungs. Normal pulmonary vascularity. No pleural effusion. No pneumothorax. HEART, MEDIASTINUM AND MAMADOU: Heart is normal in size. Normal upper mediastinal and hilar contour. BONES AND SOFT TISSUES: Unchanged right rib hardware and distal right clavicle fracture. No acute findings. IMPRESSION: No acute abnormality. WSN: [id number] Ordering Physician: Fredy Hallman Dictated By: Cristóbal Jones MD Dictated Date/Time: 07/05/22 9:29 pm Reviewed By: Cristóbal Jones MD Signed By: Cristóbal Jones MD Signed Date/Time: 07/05/22 9:29 pm Transcribed By: BERENICE Transcribed Date/Time: 07/05/22 9:28 pm Vital Signs Most recent to oldest [Reference Range]: 1 2 3 Height 183 cm (07/05/22 9:11 PM) Weight 60.0 kg (07/05/22 9:11 PM) Oxygen Saturation [94-100 %] 97 % (07/06/22 1:04 AM) 98 % (07/05/22 9:11 PM) Pulse Rate [55-90 bpm] 76 bpm (07/06/22 1:04 AM) 85 bpm (07/05/22 9:11 PM) Body Mass Index [18.5-24.99] 17.92 *L* (07/05/22 9:11 PM) Blood Pressure [90-138/55-84 mm Hg] 121/65mm Hg (07/06/22 1:04 AM) 99/64mm Hg (07/05/22 9:11 PM) Respiratory Rate [16-30 br/min] 20 br/min (07/06/22 1:04 AM) 20 br/min (07/06/22 1:01 AM) 20 br/min (07/05/22 9:30 PM) Temperature [96.8-100.4 DegF] 98.3 DegF (07/05/22 9:11 PM) Liters per Minute 3 L/min (07/06/22 1:04 AM) 3 L/min (07/05/22 9:11 PM) Mode of Delivery (Oxygen) Nasal cannula (07/06/22 1:04 AM) Nasal cannula (07/05/22 9:11 PM) Blood pressure sites Arm, left (07/06/22 1:04 AM) Arm, left (07/05/22 9:11 PM) Temperature Route Oral (07/05/22 9:11 PM) Weight Obtained Via Patient/family state d (07/05/22 9:11 PM)
--- OUTSIDE RECORDS SUMMARY | 2023-08-15 20:31 | XMS_ITS | Continuity of Care Document ---
Author Name Unknown Organization [facility] Address [address] [address]- Care Team Providers Care Manager Leasing Name Role Phone Jose LEE MD, Jorge Tsang Primary Care Physician Encounter [facility] Date(s): 10/26/19 - 01/18/20 [facility] [address] [address]- [facility] Attending Physician: Oscar Rios MD Admitting Physician: Oscar Rios MD Allergies, Adverse Reactions, [...] 10:39:00 EST, Aerosol, Route to Pharmacy Electronically, [id number], [facility]/pharmacy #[id number], 182, cm, 12/26/19 9:43:00 EST, Heig... Start Date: 12/26/19 Status: Ordered apixaban = 5 mg, By Mouth, 2 times a day, To start after 7 days of 10 mg dose, 0 Refills, Maintenance, 05/27/19 14:17:22 EDT, Tablet Start Date: 05/27/19 Status: Ordered [place], See Instructions, # 1 box, Refills 5, [...] Refills, Soft Stop, 12/26/19 9:58:00 EST, Tablet, [facility]/pharmacy #[id number], 182, cm, 12/26/19 9:43:00 EST, [...] 11:15:26, Print MARTIN Number, [facility]S [facility], [address] [place] [address], [phone], Constant Indicator Start Date: 03/31/07 Stop Date: [...]
--- OUTSIDE RECORDS SUMMARY | 2023-08-15 20:32 | XMS_ITS | Continuity of Care Document ---
Author Name Unknown Organization [facility] ter Address [address] [place] [id number] Care Team Providers Care Assistant Technician Name Role Phone Not on Staff, PCP Primary Care Physician Unavail able Encounter [facility] Date(s): 06/05/23 - 06/08/[address] [address]- Encounter Diagnosis COPD exacerbation(Final) - 06/06/23 Sepsis(Final) - 06/06/23 Abdominal pain(Final) - 06/06/23 Discharge Disposition: A-D/C Home Attending Physician: Missy AMAYA [facility] Admitting Physician: Phuc Fallon MD Referring Physician: Not on Staff, Referring [...] 10/6/15 Bubba rded influenza virus vaccine, inactivated 09/02/15 Bubba rded influenza virus vaccine, inactivated 08/07/14 Bubba rded influenza virus vaccine, inactivated 08/07/14 Bubba rded influenza virus vaccine, inactivated 1 10/14/06 Gi rox [id number] 12y+ bivalent booster vax 08/23/22 Recorded SARS-CoV-2 [...] opioid drug. Start Date: 07/02/22 Status: Ordered [place] Saline 0.65% nasal gel 1 sprays, Nares, Both, 4 times a day, # 22.5 Gm, 0 Refills, Maintenance, 05/12/23 15:41:00 EDT, [id number], Partial fill upon patient request if the prescription is for a schedule II opioid drug., 1 sprays Nares, Both 4 times a day, 183, cm, 0... Start Date: 05/12/23 Status: Ordered cefpodoxime 200 mg oral tablet 1 tablet = 200 mg, By Mouth, Every 12 hours, for 5 days, # 10 tablet, 0 Refills, Acute 06/13/23 13:44:00 EDT, 06/08/23 13:44:00 EDT, Tablet, [id number], Partial fill upon patient request if the prescription is for a schedule II opioid drug., 1... Start Date: 06/08/23 Stop Date: 06/13/23 Status: Ordered collagenase topical 250 u/gm ointment See Instructions, Use over right shoulder wound daily, # 90 Gm, 0 Refills, Maintenance, 06/04/23 11:59:00 EDT, Ointment, [facility] #[id number], Partial fill upon [...] 08/03/23 12:02:00 EDT, 06/04/23 12:02:00 EDT, Tablet, [facility]/pharmacy #[id number], Partial fill upon pat... Start Date: [...] 5 Refills, Maintenance, 04/27/23 13:54:00 EDT, Tablet, [facility], Partial fill upon patient request if the prescription is for a schedule II opioid drug., 183, cm, 04/27/23 7:05:00... Start Date: 04/27/23 Stop Date: 10/24/23 Status: Ordered ferrous sulfate 325 mg oral enteric coated tablet 325 mg, 1, tablet, By Mouth, Daily, # 30 tablet, Refills 1, Tot. Refills 1, Maintenance, 06/04/23 12:19:00 EDT, Route to Pharmacy Electronically, [facility]/pharm[facility] #[id number], Partial fill upon patient requestif the prescription is for a schedule II opioid rosario... Start Date: 06/04/23 Status: Ordered gabapentin 300 mg oral capsule 600 mg, Capsule, By Mouth, 06/08/23 15:00:00 EDT Start Date: 06/08/23 Stop Date: 06/08/23 Status: Completed gabapentin 300 mg oral capsule 600 mg, 2, capsule, By Mouth, 3 times a day, Refills 0, Maintenance, 01/21/23 10:46:00 EST, Partialfill upon patient request if the prescription is for a schedule II opioid drug. Start Date: 01/21/23 Status: Ordered HYDROmorphone 4 mg oral tablet 4 mg, Tablet, By Mouth, Every 4 hours, PRN for Pain , Moderate, STAT, 06/05/23 19:58:00 EDT Start Date: 06/05/23 Stop Date: 06/09/23 Status: Discontinued HYDROmorphone 4 mg oral tablet [...] 06/04/23 11:59:00 EDT, Route to Pharmacy Electronically, [facility]/pharm[facility] #[id number], Partial fill upon patient request if the [...] predniSONE 20 mg oral tablet See Instructions, 3 tab for 2 days, 2.5 tab for 2 days, 2 tab for 2 days, 1.5 tab for 2 days, 1 tabfor 2 days then stay on 15mg daily maintanence dose as before, # 23 tablet, 0 Refills, Acute 06/17/23 13:42:00 EDT, 06/08/23 13:41:00 EDT, [facility]t, [facility] Start Date: 06/08/23 Stop Date: 06/17/23 Status: Ordered predniSONE 5 mg oral tablet 3 tablet = 15 mg, By Mouth, Daily, 15 mg daily maintanence dose after the initial taper, # 90 tablet, 0 Refills, Maintenance, 06/08/23 13:43:00 EDT, Tablet, [facility] #[id number], Partial [...] 0 Refills, Maintenance, 05/06/23 9:44:00 EDT, Tablet, [facility] #[id number], Partial fill upon patient request if the prescription is for a schedule II opioid drug., 182, cm, 05/06/23 7:54:00 EDT, Height,... Start Date: 05/06/23 Status: Ordered sodium chloride 0.65% nasal spray 1 sprays, Nares, Both, 5 times a day, dryness, # 1 each, 0 Refills, Maintenance, 05/12/23 15:40:00 EDT, [place], [facility]/pharmacy #[id number], Partial fill upon [...] fractures of ribs Confirmed 01/06/11 Active [place] (myocardial infarction) X 3 Confirmed Active PVD (peripheral vascular disease) Confirmed Active Tobacco dependence Confirmed Active Underweight Confirmed Active 1Cardiac stents 1991, 1995 Results Orders for Microbiology Reports Name Date Sputum Culture w/ Gram Smear 06/06/23 Blood Culture 06/05/23 Blood Culture #2 06/05/23 Microbiology Reports TEST:Sputum Culture STATUS:Unauthenticated BODY SITE: SOURCE:EXPECT COLLECTED DATE/TIME:06/06/23 9:26 PM Sputum Culture SPECIMEN DESCRIPTION : EXPECTORATED SPUTUM SPECIAL REQUESTS : NONE GRAM STAIN : 2+ POLYMORPHONUCLEAR LEUKOCYTES 2+ SQ.EPITHELIAL CELLS 3+ GRAM POSITIVE COCCI CULTURE : NORMAL SO FAR REPORT STATUS : PRELIMINARY REPORT TEST:Blood Culture, Second Order STATUS:Unauthenticated BODY SITE: SOURCE:Blood COLLECTED DATE/TIME:06/05/23 10:43 PM Blood Culture, Second Order SPECIMEN DESCRIPTION : BLOOD NO SITE SPECIAL REQUESTS : NONE CULTURE : NO GROWTH 3 DAYS REPORT STATUS : PRELIMINARY REPORT TEST:Blood Culture STATUS:Unauthenticated BODY SITE: SOURCE:Blood COLLECTED DATE/TIME:06/05/23 10:42 PM Blood Culture SPECIMEN DESCRIPTION : BLOOD NO SITE SPECIAL REQUESTS : NONE CULTURE : NO GROWTH 3 DAYS REPORT STATUS : PRELIMINARY REPORT Radiology Reports * Exam Date Time Procedure Performing Provider Status 06/06/23 6:[address] Angio Abdomen and Pelvis Rony Lanza; Luis M (Verified) Notes: (CT Angio Abdomen and Pelvis) Reason For Exam: Mesenteric ischemia, acute;Other: RESULT: CT Angio Abdomen and Pelvis PROCEDURE: CT Angio Abdomen Aorta Bilat IlioFem, CT Angio Abdomen and Pelvis INDICATION: Hx of Present Illness: Seen earlier today and still endorses abdominal pain and now newincreased SOB with increased oxygen requirements from 2L to 4L; Reason: Claudication; claudication,mesenteric ischemia; Clinical Question(s): Obstruction; Order Comment: bl-scan v-rad send cortext on to azeem wilder @ 06 06 2023 07:22:04 EDT. RELEVANT CLINICAL INFORMATION/CLINICAL QUESTION: Obstruction TECHNIQUE: CT angiography of the abdomen, pelvis, and lower extremities was performed using contiguous helical images from the diaphragm to the feet. 120 cc of Omnipaque 300 was administered intravenously. Subsequent CT venogram of the abdomen and pelvis was performed. One mm axial images were reconstructed. Sagittal and coronal reformatted images were rendered. High resolution multiplanar, volume rendered and MIP images were created and used to evaluate the abdominal aorta and lower extremity arteries in multiple projections on an independent workstation, with permanent images saved to PACS. Automatic tube current modulation was used to optimize exposure parameters. RADIATION DOSE PARAMETERS: CTDIvol Body: 13.38 mGy, DLP Body: 1962 mGy*cm. COMPARISON: Multiple prior CTs of the abdomen and pelvis, most recently June 05, 2023, and prior CTAwith runoff dated June 06, 2022. FINDINGS: Abdominal aorta: Moderate to severe atherosclerotic calcification. No aneurysm, dissection, or significant stenosis. Celiac axis: Patent. Superior mesenteric artery: Patent. Right renal artery: Patent. Left renal artery: Mildly stenotic at its origin but patent distally. Inferior mesenteric artery: Patent. Iliac and visualized femoral veins are patent. The IVC, portal veins, and hepatic veins are all patent. The renal veins are patent. The SMV and its tributaries are patent. No venous thrombosis. Right side: Common iliac artery: Stented and patent. Internal iliac artery: Patent. External iliac artery: Stented and patent. Common femoral artery: Suspected sequela of prior endarterectomy. No significant stenosis. Patent femoropopliteal bypass graft. Superficial femoral artery: Severely calcified with proximal to mid thigh occlusion. Deep femoral artery: Patent. Popliteal artery: Occluded proximally but reconstituted distally from the femoral-popliteal bypass. Anterior tibial artery: Diffusely calcified but appears to remain patent to the foot. Tibioperoneal trunk: Patent. Posterior tibial artery: Diffusely calcified but appears to remain patent to the foot. Peroneal artery: Diffusely calcified but appears to remain patent to the ankle. Dorsalis pedis: Not well opacified. Plantar arteries: Patent. Left side: Common iliac artery: Stented and patent. Moderate distal stenosis. Internal iliac artery: Possibly occluded at its origin with subsequent reconstitution of flow. There are segments of stenosis or occlusion within the mid and distal branches. External iliac artery: Stented and patent. Common femoral artery: Patent. Femoral-popliteal bypass is widely patent. Superficial femoral artery: Occluded. Deep femoral artery: Patent. Popliteal artery: Reconstituted proximally from the femoral popliteal bypass. Severe midportion stenosis due to calcified atherosclerotic disease. Anterior tibial artery: Diffusely calcified but appears to remain patent to the foot. Tibioperoneal trunk: Patent. Posterior tibial artery: Diffusely calcified but appears to remain patent to the foot. Peroneal artery: Diffusely calcified but appears to remain patent to the ankle. Dorsalis pedis: Not well opacified. Plantar arteries: Patent. OTHER FINDINGS: Document Coordinator View Findings, Lines and Tubes: None. Visualized Chest: Small bilateral pleural effusions, slightly larger on the left with associated atelectasis. Emphysematous changes. No pericardial effusion. Diaphragm: Normal. Liver: Mildly lobulated hepatic contour, which may indicate early changes of chronic liver disease. Gallbladder: Vicarious excretion of contrast in the gallbladder lumen. No evidence of acute gallbladder pathology. Bile ducts: No biliary ductal dilation. Spleen: Normal. Pancreas: 2.2 x 1.6 cm fluid attenuation focus in the anterior pancreatic head (series 401 image 46) with probable direct communication with the main pancreatic duct, statistically a side branch IPMNgrowing slowly when compared with multiple prior studies, for example measuring 1.5 x 0.8 cm in May 2015 and 1.7 x 1.1 cm in August 2019. Adrenal glands: Normal. Kidneys and ureters: No hydronephrosis or suspicious masses. Limited evaluation for stones due to hyperdense contrast within the renal collecting systems. No urothelial lesion is identified. Simple appearing renal cysts and hypodensities that are too small to characterize are noted, requiring no dedicated follow up. Bladder: Probable mild bladder trabeculation, though evaluation limited by partial distention. Reproductive organs: Unremarkable. Stomach, small bowel, and large bowel: Underdistended stomach, limiting evaluation. Normal caliber bowel loops. Previously seen mild fluid-filled distention has resolved. No evidence of obstruction or acute surrounding inflammation. Appendix: Normal. Peritoneum and retroperitoneum: Mild mesenteric stranding and trace perisplenic ascites. No omentalor mesenteric lesions. Lymph nodes: No enlarged lymph nodes. Abdominal and pelvic wall: Mild anasarca. Lower extremities: Left femoral ORIF hardware. Small bilateral suprapatellar effusions, slightly larger on the left. Bones: Left femoral ORIF and hip arthroplasty changes. Posttraumatic changes of the left ankle. Chronic defects at both iliac bones. Patient has undergone L4-S1 posterior spinal fusion with hardware appearing intact. Mild compression deformities at T12 and L1, unchanged from prior studies. IMPRESSION: 1. Diffuse atherosclerotic disease as detailed above. 2. Resolution of previously seen dilated small bowel loop without evidence of mesenteric ischemia as questioned. 3. 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 4. Calcified but patent calf vessels bilaterally with dorsalis pedis arteries not well opacified oneither side. 5. Small effusions, mild anasarca, trace ascites, and mesenteric stranding, suggesting volume overload. 6. Mildly lobulated hepatic contour with trace perisplenic fluid, which may indicate early changes of chronic liver disease. 7. Cystic pancreatic lesion has grown slowly over time further characterization with MRI/MRCP is recommended on a nonemergent basis. Preliminary radiology report issued by [facility]. Agree with report. WSN: [id number] Ordering Physician: Liz Rocha Dictated By: Manpreet Mims MD Dictated Date/Time: 06/06/23 8:25 am Reviewed By: Manpreet Mims MD Signed By: Manpreet Mims MD Signed Date/Time: 06/06/23 8:25 am Transcribed By: BERENICE Transcribed Date/Time: 06/06/23 7:44 am * Exam Date Time Procedure Performing Provider Status 06/06/23 6:[address] Angio Abdomen Aor ta Bilat IlioFem Rony Lanza; Auth (Verified) Notes: (CT Angio Abdomen Aorta Bilat IlioFem) Reason For Exam: claudication, mesenteric ischemia;Claudication RESULT: CT Angio Abdomen Aorta Bilat IlioFem PROCEDURE: CT Angio Abdomen Aorta Bilat IlioFem, CT Angio Abdomen and Pelvis INDICATION: Hx of Present Illness: Seen earlier today and still endorses abdominal pain and now newincreased SOB with increased oxygen requirements from 2L to 4L; Reason: Claudication; claudication,mesenteric ischemia; Clinical Question(s): Obstruction; Order Comment: bl-scan v-rad send cortext on to azeem wilder @ 06 06 2023 07:22:04 EDT. RELEVANT CLINICAL INFORMATION/CLINICAL QUESTION: Obstruction TECHNIQUE: CT angiography of the abdomen, pelvis, and lower extremities was performed using contiguous helical images from the diaphragm to the feet. 120 cc of Omnipaque 300 was administered intravenously. Subsequent CT venogram of the abdomen and pelvis was performed. One mm axial images were reconstructed. Sagittal and coronal reformatted images were rendered. High resolution multiplanar, volume rendered and MIP images were created and used to evaluate the abdominal aorta and lower extremity arteries in multiple projections on an independent workstation, with permanent images saved to PACS. Automatic tube current modulation was used to optimize exposure parameters. RADIATION DOSE PARAMETERS: CTDIvol Body: 13.38 mGy, DLP Body: 1962 mGy*cm. COMPARISON: Multiple prior CTs of the abdomen and pelvis, most recently June 05, 2023, and prior CTAwith runoff dated June 06, 2022. FINDINGS: Abdominal aorta: Moderate to severe atherosclerotic calcification. No aneurysm, dissection, or significant stenosis. Celiac axis: Patent. Superior mesenteric artery: Patent. Right renal artery: Patent. Left renal artery: Mildly stenotic at its origin but patent distally. Inferior mesenteric artery: Patent. Iliac and visualized femoral veins are patent. The IVC, portal veins, and hepatic veins are all patent. The renal veins are patent. The SMV and its tributaries are patent. No venous thrombosis. Right side: Common iliac artery: Stented and patent. Internal iliac artery: Patent. External iliac artery: Stented and patent. Common femoral artery: Suspected sequela of prior endarterectomy. No significant stenosis. Patent femoropopliteal bypass graft. Superficial femoral artery: Severely calcified with proximal to mid thigh occlusion. Deep femoral artery: Patent. Popliteal artery: Occluded proximally but reconstituted distally from the femoral-popliteal bypass. Anterior tibial artery: Diffusely calcified but appears to remain patent to the foot. Tibioperoneal trunk: Patent. Posterior tibial artery: Diffusely calcified but appears to remain patent to the foot. Peroneal artery: Diffusely calcified but appears to remain patent to the ankle. Dorsalis pedis: Not well opacified. Plantar arteries: Patent. Left side: Common iliac artery: Stented and patent. Moderate distal stenosis. Internal iliac artery: Possibly occluded at its origin with subsequent reconstitution of flow. There are segments of stenosis or occlusion within the mid and distal branches. External iliac artery: Stented and patent. Common femoral artery: Patent. Femoral-popliteal bypass is widely patent. Superficial femoral artery: Occluded. Deep femoral artery: Patent. Popliteal artery: Reconstituted proximally from the femoral popliteal bypass. Severe midportion stenosis due to calcified atherosclerotic disease. Anterior tibial artery: Diffusely calcified but appears to remain patent to the foot. Tibioperoneal trunk: Patent. Posterior tibial artery: Diffusely calcified but appears to remain patent to the foot. Peroneal artery: Diffusely calcified but appears to remain patent to the ankle. Dorsalis pedis: Not well opacified. Plantar arteries: Patent. OTHER FINDINGS: Document Coordinator View Findings, Lines and Tubes: None. Visualized Chest: Small bilateral pleural effusions, slightly larger on the left with associated atelectasis. Emphysematous changes. No pericardial effusion. Diaphragm: Normal. Liver: Mildly lobulated hepatic contour, which may indicate early changes of chronic liver disease. Gallbladder: Vicarious excretion of contrast in the gallbladder lumen. No evidence of acute gallbladder pathology. Bile ducts: No biliary ductal dilation. Spleen: Normal. Pancreas: 2.2 x 1.6 cm fluid attenuation focus in the anterior pancreatic head (series 401 image 46) with probable direct communication with the main pancreatic duct, statistically a side branch IPMNgrowing slowly when compared with multiple prior studies, for example measuring 1.5 x 0.8 cm in May 2015 and 1.7 x 1.1 cm in August 2019. Adrenal glands: Normal. Kidneys and ureters: No hydronephrosis or suspicious masses. Limited evaluation for stones due to hyperdense contrast within the renal collecting systems. No urothelial lesion is identified. Simple appearing renal cysts and hypodensities that are too small to characterize are noted, requiring no dedicated follow up. Bladder: Probable mild bladder trabeculation, though evaluation limited by partial distention. Reproductive organs: Unremarkable. Stomach, small bowel, and large bowel: Underdistended stomach, limiting evaluation. Normal caliber bowel loops. Previously seen mild fluid-filled distention has resolved. No evidence of obstruction or acute surrounding inflammation. Appendix: Normal. Peritoneum and retroperitoneum: Mild mesenteric stranding and trace perisplenic ascites. No omentalor mesenteric lesions. Lymph nodes: No enlarged lymph nodes. Abdominal and pelvic wall: Mild anasarca. Lower extremities: Left femoral ORIF hardware. Small bilateral suprapatellar effusions, slightly larger on the left. Bones: Left femoral ORIF and hip arthroplasty changes. Posttraumatic changes of the left ankle. Chronic defects at both iliac bones. Patient has undergone L4-S1 posterior spinal fusion with hardware appearing intact. Mild compression deformities at T12 and L1, unchanged from prior studies. IMPRESSION: 1. Diffuse atherosclerotic disease as detailed above. 2. Resolution of previously seen dilated small bowel loop without evidence of mesenteric ischemia as questioned. 3. 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 4. Calcified but patent calf vessels bilaterally with dorsalis pedis arteries not well opacified oneither side. 5. Small effusions, mild anasarca, trace ascites, and mesenteric stranding, suggesting volume overload. 6. Mildly lobulated hepatic contour with trace perisplenic fluid, which may indicate early changes of chronic liver disease. 7. Cystic pancreatic lesion has grown slowly over time further characterization with MRI/MRCP is recommended on a nonemergent basis. Preliminary radiology report issued by [facility]. Agree with report. WSN: [id number] Ordering Physician: Liz Rocha Dictated By: Manpreet Mims MD Dictated Date/Time: 06/06/23 8:25 am Reviewed By: Manpreet Mims MD Signed By: Manpreet Mims MD Signed Date/Time: 06/06/23 8:25 am Transcribed By: BERENICE Transcribed Date/Time: 06/06/23 7:44 am * Exam Date Time Procedure Performing Provider Status 06/06/23 5:14 AM Chest Portable Yessica Rodriguez; Auth (Verified) Notes: (Chest Portable) Reason For Exam: Line Placement RESULT: Chest Portable Chest Portable HX OF PRESENT ILLNESS: Seen earlier today and still endorses abdominal pain and now new increased SOB with increased oxygen requirements from 2L to 4L; Reason: Line Placement; Clinical Question(s): Line Placement / Line Placement COMPARISON: 06/05/2023 FINDINGS: LINES AND TUBES: Right internal jugular central venous catheter tip projects in the SVC. LUNGS AND PLEURA: Mild bibasilar atelectasis, no consolidation. No pleural effusion. No pneumothorax. HEART, MEDIASTINUM AND MAMADOU: Heart is normal in size. Normal mediastinal and hilar contour. BONES AND SOFT TISSUES: No acute abnormality. Status post ORIF of several right ribs, unchanged. IMPRESSION: Right internal jugular central venous catheter in place, no pneumothorax. WSN: [id number] Ordering Physician: Fanny Ball Dictated By: William Wilson MD Dictated Date/Time: 06/06/23 6:33 am Reviewed By: William Wilson MD Signed By: William Wilson MD Signed Date/Time: 06/06/23 6:33 am Transcribed By: BERENICE Transcribed Date/Time: 06/06/23 6:32 am * Exam Date Time Procedure Performing Provider Status 06/05/23 8:09 PM Chest Portable Florentino Altman; Auth (Verified) Notes: (Chest Portable) Reason For Exam: Cough RESULT: Chest Portable Chest Portable Hx of Present Illness: Seen earlier today and still endorses abdominal pain and now new increased SOB with increased oxygen requirements from 2L to 4L; Reason: Cough; Clinical Question(s): Pneumonia COMPARISON: X-ray from 06/05/2023 at 9:17 AM, 05/30/2023 and 05/29/2023. CT abdomen and pelvis from earlier the same day which includes the lung bases. FINDINGS: LINES AND TUBES: None. LUNGS AND PLEURA: There is a small left effusion better seen on earlier CT which is unchanged. There is some atelectasis in the posterior medial left lower lobe which is unchanged. No evidence for pneumonia on x-ray or CT. No pneumothorax. HEART, MEDIASTINUM AND MAMADOU: Heart is normal in size. Normal mediastinal and hilar contour. BONES AND SOFT TISSUES: No acute abnormality. Right rib fixation seen at 4 levels as before. Old left posterior lateral seventh rib callus. IMPRESSION: Left basilar opacity seen on earlier x-ray corresponds to a small left effusion with some adjacent atelectasis in the left lower lobe. This is not significantly changed and may represent manifestation of mild CHF. No pneumonia. WSN: [id number] Ordering Physician: Liz Rocha Dictated By: William Farah MD Dictated Date/Time: 06/05/23 8:22 pm Reviewed By: William Farah MD Signed By: William Farah MD Signed Date/Time: 06/05/23 8:22 pm Transcribed By: BERENICE Transcribed Date/Time: 06/05/23 8:20 pm Vital Signs Most recent to oldest [Reference Range]: 1 2 3 Height 186 cm (06/08/23 11:33 AM) 186 cm (06/08/23 8:43 AM) 186 cm (06/08/23 2:55 AM) Weight 56.4 kg (06/07/23 2:49 PM) Oxygen Saturation [94-100 %] 94 % (06/08/23 11:33 AM) 98 % (06/08/23 8:43 AM) 98 % (06/08/23 2:55 AM) Pulse Rate [55-90 bpm] 92 bpm *H* (06/08/23 11:33 AM) 85 bpm (06/08/23 8:43 AM) 81 bpm (06/08/23 2:55 AM) Body Mass Index [18.5-24.99 kg/m2] 16.3 kg/m2 *L* (06/07/23 2:49 PM) Blood Pressure [90-138/55-84 mm Hg] 137/64mm Hg (06/08/23 11:33 AM) 149/90mm Hg *H* (06/08/23 8:43 AM) 153/76mm Hg *H* (06/08/23 2:55 AM) Respiratory Rate [16-30 br/min] 18 br/min (06/08/23 2:50 PM) 18 br/min (06/08/23 1:11 PM) 18 br/min (06/08/23 11:33 AM) Temperature [96.8-100.4 DegF] 97.8 DegF (06/08/23 11:33 AM) 97.8 DegF (06/08/23 8:43 AM) 97.7 DegF (06/08/23 2:55 AM) Liters per Minute 3 L/min (06/08/23 11:33 AM) 3 L/min (06/08/23 8:43 AM) 3 L/min (06/07/23 11:57 PM) Mode of Delivery (Oxygen) Nasal cannula (06/08/23 11:33 AM) Nasal cannula (06/08/23 8:43 AM) Room air (06/08/23 2:55 AM) Blood pressure sites Arm, left (06/08/23 11:33 AM) Arm, left (06/08/23 8:43 AM) Arm, right (06/08/23 2:55 AM) Temperature Route Oral (06/08/23 11:33 AM) Oral (06/08/23 8:43 AM) Oral (06/08/23 2:55 AM) Dry Weight 56.4 kg (06/07/23 2:49 PM) Social History Social History Type Response Tobacco Use: 4 or less cigar ettes(less than 1/4 pack)/day in last 30 days. Interested in cessation: Yes. Other: Reports smoked at least 30 years, up to 1-2 PPD at one point.. Type: Cigarettes. Sex History and physical note * Mio Sequeira DO: PERFORM Event Display: History and Physical Hospital Authored Date: [id number] Patient: ??ANT VARMA ? Age:??67 Years?Sex:??Male?:??1955?? Chief Complaint/Reason for Consultation SOB/ABD pain seen earlier today with new increased O2 needs per patient. History of Present Illness 67 yo male with a history of CAD, COPD, hypertension history of alcohol dependency, hyperlipidemia and PVD severe, smoker presenting to the ED c/o SOB and minor CP. Patient presented after he was discharged 3 days ago with worsening shortness of breath and cough??as well as pain throughout his body from the shoulder pain to the leg pain??which he had once??from before. Patient reports that he has been having some worsening cough and congestion and shortness of breath??where he??decided to come to the hospital for evaluation. ?? Pt states that he is normally of 2L O2 at home and went up to 6L with minor improvement. He also reports having pain in his shoulder and he would like the orthopedic??from [facility] to operate on him and not to go back to [facility]. Also endorses abdominal pain which has been also chronic??and leg pain in the tibia-fibula??for thepast 2 days??somewhat worse than before??on the??left side. ??Does endorse his chronic??pain on the??left leg??to an ulcer??that is chronic??peripheral vascular disease. ?? In the emergency department patient was evaluated??noted to have elevated lactate.?? As well as white blood cells thus was started on ceftriaxone and??had the sepsis work-up In the ED he had a placement of??right IJ CVC for medication delivery, IV fluids and IV contrast CT abd pelv done?? Focal severe stenosis in the distal left common iliac artery and chronic vasculopathic findings as documented in the [facility] report within CT imaging. ??Severe stenosis at the origin of the left renal artery. ??Gallstones. ??Cystitis. ?? Findings above patient was admitted to the hospital for further evaluation management. ?? Review of Systems ?? ROS: Constitutional negative for fever chills,?? Cardiovascular having some chest pain, with cough Pulmonary: positive ??Cough and ??shortness of breath GI: negative for Nausea or vomiting , diarrhea MSK:?? shoulder pain, leg pain All other review of systems has been negative for 10-point review of systems. ? Objective Vital Signs?? Temperature: 98.1 DegF (06/06/23 19:53:00) Temperature Route: Oral (06/06/23 19:53:00) Pulse Rate: 82 bpm (06/06/23 19:53:00) Respiratory Rate: 18 br/min (06/06/23 19:53:00) Systolic Blood Pressure:??145 mm Hg??High (06/06/23 19:53:00) Diastolic Blood Pressure:??96 mm Hg??High (06/06/23 19:53:00) Blood pressure sites: Arm, left (06/06/23 19:53:00) Pulse Pressure: 49 mm Hg (06/06/23 19:53:00) Oxygen Saturation: 100 % (06/06/23 19:53:00) Liters per Minute: 4 L/min (06/06/23 19:53:00) Mode of Delivery (Oxygen): Nasal cannula (06/06/23 19:53:00) Early Warning Score: 0 (06/06/23 20:09:36) ? Intake/Output? No Data Available ? Physical Exam ?? General: Alert, NAD HEENT: PERRLA, EOMI Neck: non-tender,?? CV: RRR, Resp: CTAB, wheezing bilateraly Abd: Soft, non-tender, non-distended, bowel sound present, MS: weakness due to PAD and joint pain Neuro: Normal tone, LE: discoloration to lower ext with ulcer noted on L leg ankle,?? warm bilateraly Assessment/Plan Diagnoses Abdominal pain ??(R10.9) COPD exacerbation ??(J44.1) Sepsis ??(A41.9) ?? Assessment:??67 yo male with a history of CAD, COPD, hypertension history of alcohol dependency, hyperlipidemia and PVD smoker presenting to the ED c/o SOB??found to be in COPD exacerbation??with multiple other complaints. ?? COPD exacerbation (J44.1): ??- Continue chronic O2- at 3-4L NC ??Significant wheezing shortness of breath and cough for the past few days??patient was seen initially in the ED today and went home after DuoNebs and prednisone but came again due to significant worsening of his oxygenation. Patient was admitted for evaluation regarding COPD exacerbation??in the setting of recent hospitalization. No fever however he does have leukocytosis and lactate. Treat him as possible community-acquired pneumonia due to significant worsening of his oxygen requirement. Continue on ceftriaxone and azithromycin Continue on DuoNebs??every 4 hours and as needed We will continue prednisone 50 mg daily Continue Daliresp Continue??Symbicort and Incruse Ellipta on outpatient Chest physical therapy Seem to be complicated??from multiple other medical conditions with possibly consult??with pulm ?? -BIPAP DURING NAPS AND HS - have discussed with patient and nursing nursing. He has??had significant hypercarbic resp. failure in the past, and?? high risk of worsening hypercarbia. I confirmed with??patient that he has Bipap machine at home. ? Sepsis (A41.9):??Elevated white blood cell count and lactate??in the setting of respiratory compromise. Unclear if this is pneumonia versus??wound care??sepsis with cellulitis. He does have multiple wounds in the lower extremity as well as in the buttocks and??in the shoulder area. Get wound nurse care Continue on??ceftriaxone azithromycin as above Total infectious disease with elevated lactate with a complicated history??including??history of septic arthritis as below Get??urinalysis and follow-up on blood culture We will get sputum culture ? H/o Rt shoulder septic arthritis , with Rt shoulder??wound ??-?- has been treated in the past for MRSA infection / septic arthritis of Rt shoulder, and was mostrecently on suppressive Doxycycline and septic arthritis from prior hospitalization: ??shoulder XR without signs of osteomyelitis??and, ??superficial culture from wound drainage??grew MRSA ??MRI done last admission:??difficult to assess on images acquired, tagged WBC scan could be helpful in making this determination, no significant joint effusion to suggest septic arthritis, as read by the radiologist orthopedics consulted??previously and again after MRI, Dr. Nayak reviewed MRI, and no orthopedic intervention or other new orthopedic Recs.?? They deferred to ID regarding antibiotics - he had a wound vac which was subsequently discontinued 04/2023 - he has previous shoulder surgery with ??Mauricio at [facility], as per ortho -as recommended by ID here,??continnue ??doxycycline for suppressive therapy until follow-up with his??ID physician,??doctor??Gemtesa??at [facility] Patient would like orthopedic to be consulted again for surgery??as he does not want to go back to [facility] to do surgery there Wound care to wound on right shoulder- as rec'd by wound care Cleanse with Vashe. Pat dry. Apply z-guard to periwound.?? Apply morena thick layer of Santyl to wound bed. Cover with Mepilex foam dressing. Change daily and PRN for soilage/soaking. ?? *If wound is draining through Mepilex foam dressing; Please use Mextra Pad with DSD* ?? Abdominal Pain CT scan of abdomen repeat with contrast nothing acute. but recommended to do MRI for pancreatic cystic lesion IBS ??continue PPI ?Apixaban restarted,??aspirin is on hold. ??-??- iron panel showed FREDERICK ,?? giving oral iron?h/o CAD ?? -continue metoprolol, ASA on hold given anemia, and concern for melena .? Given that he is on apixaban and will be on prednisone chronically for COPD,?? will hold off on restarting ASA- given signficant risks, continue apixaban ? severe e protein malnutrition in the setting of severe COPD ??- Nutrition??consulted ??- supplements - MVI ? Chronic pain ??-??h/o ??multiple vertebral fractures, rib fractures that are constant sources of pain for him ??- Currently on duloxetine, gabapentin?-continue??home Dilaudid,?- Scheduled Tylenol, gabapentin and duloxetine - avoid IV opiates ? Chronic stable medical conditions: ??Hypertension:?restasrt metoprolol,isosorbide dinitrate ?? VTE Prophylaxis:??on apixiban ?VTE Prophylaxis Assessment:??VTE Prophylaxis Ordered ?? Code Status:??full ?Order Code Status:??Code Status Ordered ?? Discharge Planning:? Histories Allergies Allergies ?(Active [...] Metabolic alkalosis Multiple fractures of ribs [place] (myocardial infarction) X 3 Pulmonary cachexia due [...] Electronic Cigarette/Vaping Details:??Electronic Cigarette Use: Never. ? Psychosocial History ??smokes few cig daily, does not drink ?? Family History Mother: COPD - Chronic [...] hours?for 30?Days?continue suppressive Doxycyline therapy, f/u with ID/DrPriscilla Duloxetine (duloxetine 60 mg oral enteric coated [...] to give the dose of NARCAN [place]. Remove t... Pantoprazole (pantoprazole 40 mg oral [...] daily maintenance as previously prescribed by your nursing assoc roflumilast (roflumilast 500 mcg oral tablet)?1?tab(s)?500?Microgram?By Mouth?Daily Sodium Chloride Nasal (sodium chloride 0.65% nasal spray)?1?spray(s)?Nares, Both?5 times a day?dryness Sodium Chloride Nasal ([place] Saline 0.65% nasal gel)?1?spray(s)?Nares, Both?4 times a day Thiamine (Vitamin B1 100 mg oral tablet)?100?Milligram?1?tablet?By Mouth?Daily umeclidinium (Incruse Ellipta 62.5 mcg/inh inhalation powder)?1?puff(s)?Inhalation?Every 24 hours ? Inpatient Medications Medications (27) Active SCHEDULED: (17) Albuterol/Ipratropium Inhalation Marilin 3mL (Duoneb Inhalation Solution) ??1 vials, BAND Nebulizer, 4 times a day Apixaban 5 mg Tablet (Eliquis) ??5 mg, By Mouth, 2 times a day Atorvastatin 80 mg Tablet (atorvastatin 80 mg oral tablet) ??80 mg, By Mouth, Daily Ceftriaxone 1 Gm Inj (Ceftriaxone IVPB) ??1 Gm, IVPB, Every 24 hours Doxycycline 100 mg Tablet (Doxycycline Tablet) ??100 mg, By Mouth, Every 12 hours Duloxetine 60 mg Capsule (Duloxetine) ??60 mg, [...] day Melatonin 3 mg Tablet (Melatonin Tablet) ??6 mg, By Mouth, Daily at bedtime Metoprolol 25 mg XL Tablet (Metoprolol Succinate ER 25 mg oral tablet, extended release) ??25 mg, By Mouth, Daily NaCl 0.9% Flush 3ml (NaCL 0.9% Flush) ??3 mL, IV Push, Every 8 hours NaCl 0.9% Flush 3ml (NaCL 0.9% Flush) ??3 mL, IV Push, Every 8 hours Pantoprazole 40 mg EC Tablet (pantoprazole 40 mg oral delayed release tablet) ??40 mg, By Mouth, Daily PredniSONE 50 mg Tablet (predniSONE 50 mg oral tablet) ??50 mg, By Mouth, Daily Roflumilast 500 mcg Tablet (roflumilast 500 mcg oral tablet) ??500 mcg, By Mouth, Daily Thiamine 100 mg Tablet (Vitamin B1 100 mg oral tablet) ??100 mg, By Mouth, Daily CONTINUOUS: (0) PRN: (10) Acetaminophen 325 mg Tablet (Acetaminophen Tablet) ??650 [...] mg, Chew, 3 times a day ? EKG study * Event Display: EKG Authored Date: Hospital Progress note * Lizzie Partida RN: PERFORM, SIGN, VERIFY Event Display: Progress [facility] Authored Date: [id number] Patient: ANT VARMA Age: 67 years Sex: Male : 1955 Associated Diagnoses: None Author: Lizzie Partida RN Findings Narrative/Incidental Pt reported 10/10 joint pain throughout the night. Medicated with PRN Hydromorphone multiple times.Pt requested IV hydromorphone instead of PC because it helps him relax. Covering clinician,Marcelo Salazar NP, notified. IV Hydromorphone was not ordered and Marcelo Salazar NP stated he could give an addit ional dose of PO hydromorphone instead, pt informed. Pt refused respiratory updrafts throughout thenight. Pt called multiple times throughout the night requesting pain medication and anxiety medication. See biophysical for full assessment.. * Cale AMAYA, Jovana: PERFORM, MODIFY, MODIFY Event Display: Progress [facility] Authored Date: Patient: ??ANT VARMA ? Age:??67 Years?Sex:??Male?:??1955?? Subjective Patient seen and examined at bedside. ??And comes in for complaints of abdominal pain and COPD exacerbation In the ED was a difficult IV access and placed right IJ??TLC ED care plan??noted and avoid IV narcotics at this time. Given the??chronically infected right shoulder admitting provider consulted ID and will follow recommendations. Review of Systems Cachexia noted BMI of 16.3 Supplemental O2 via nasal cannula 6 L. Ill-appearing. All the other systems including General, HEENT, Cardiac, Respiratory, Gastrointestinal, Genito urinary, Neurological, Musculoskeletal, cutaneous systems are negative except as mentioned above. Objective Measurements?? Height: 186 cm (06/07/23) Weight: 56.4 kg (06/07/23) Dry Weight: 56.4 kg (06/07/23) Body Mass Index:??16.3 kg/m2??Low (06/07/23) ? Vital Signs?? Temperature: 98.3 DegF (06/07/23 15:00:00) Temperature Route: Oral (06/07/23 15:00:00) Pulse Rate:??92 bpm??High (06/07/23 15:00:00) Respiratory Rate: 18 br/min (06/07/23 15:06:00) Systolic Blood Pressure: 133 mm Hg (06/07/23 15:00:00) Diastolic Blood Pressure: 81 mm Hg (06/07/23 15:00:00) Blood pressure sites: Arm, right (06/07/23 15:00:00) Mean Arterial Pressure: 98 mm Hg (06/07/23 15:00:00) Pulse Pressure: 52 mm Hg (06/07/23 15:00:00) Oxygen Saturation: 100 % (06/07/23 15:00:00) Liters per Minute: 3 L/min (06/07/23 13:05:00) Mode of Delivery (Oxygen): Room air (06/07/23 15:00:00) Early Warning Score: 0 (06/07/23 15:08:18) ? Physical Exam General: AAO X 3, chronically ill-appearing HEENT: Normocephalic, Atraumatic Neck: soft, supple Respiratory: CTA B/L, no wheezing, no crackles Cardiovascular: RRR, S1, S2 heard Gastrointestinal: Soft, non tender, normal Bowel sounds, nondistended CONSULTANT DIETITIAN: Alert awake and oriented X 3 . No acute focal neurological deficits Musculoskeletal/Back: Muscle wasting noted, right shoulder pain and left hip pain. Extremities: No pitting pedal edema, no calf tenderness. Assessment/Plan 67 yo male with a history of CAD, COPD, hypertension history of alcohol dependency, hyperlipidemia and PVD smoker presenting to the ED c/o SOB??found to be in COPD exacerbation??with multiple other complaints. ?? COPD exacerbation (J44.1): Continue chronic O2- at 3-4L NC Significant wheezing shortness of breath and cough for the past few days??patient was seen initially in the ED today and went home after DuoNebs and prednisone but came again due to significant worsening of his oxygenation. Patient was admitted for evaluation regarding COPD exacerbation??in the setting of recent hospitalization. No fever however he does have leukocytosis and lactate. Treat him as possible community-acquired pneumonia due to significant worsening of his oxygen requirement. Continue on ceftriaxone and azithromycin Continue on DuoNebs??every 4 hours and as needed Continue prednisone 50 mg daily Continue Daliresp Continue??Symbicort and Incruse Ellipta on outpatient Chest physical therapy Seem to be complicated??from multiple other medical conditions with possibly consult??with pulm ?? BIPAP DURING NAPS AND HS - have discussed with patient and nursing nursing. He has??had significanthypercarbic resp. failure in the past, and?? high risk of worsening hypercarbia. ?? Leukocytosis, initial concern for sepsis but less likely. Elevated white blood cell count and lactate??in the setting of respiratory compromise. Unclear if this is pneumonia versus??wound care??sepsis with cellulitis. He does have multiple wounds in the lower extremity as well as in the buttocks and??in the shoulder area-present on admission. Consulted wound care Currently on ceftriaxone and Zithromax for??empiric treatment in the setting of COPD exacerbation Blood cultures obtained. Evaluated by infectious diseases. ??Opined a chronic septic arthritis and continue doxycycline suppressive therapy and follow-up with ID and orthopedics at [facility]. ?? H/o Rt shoulder septic arthritis , with Rt shoulder??wound Has been treated in the past for MRSA infection / septic arthritis of Rt shoulder, and was most recently on suppressive Doxycycline and septic arthritis from prior hospitalization: ??shoulder XR without signs of osteomyelitis??and, ??superficial culture from wound drainage??grew MRSA ?? MRI done last admission:??difficult to assess on images acquired, tagged WBC scan could be helpful in making this determination, no significant joint effusion to suggest septic arthritis, as read by the radiologist orthopedics consulted??previously and again after MRI, Dr. Nayak reviewed MRI, and no orthopedic intervention or other new orthopedic Recs.?? Had a wound vac which was subsequently discontinued 04/2023 Previous shoulder surgery with ??Mauricio at [facility], as per ortho Evaluated ID here??on this admission- continue ??doxycycline for suppressive therapy until follow-up with his??ID physician,??doctor??Gemtesa??at [facility] Wound care to wound on right shoulder- as rec'd by wound care Cleanse with Vashe. Pat dry. Apply z-guard to periwound.?? Apply morena thick layer of Santyl to wound bed. Cover with Mepilex foam dressing. Change daily and PRN for soilage/soaking. *If wound is draining through Mepilex foam dressing; Please use Mextra Pad with DSD* ?? Abdominal Pain Lactic acidosis noted, s/p IV fluids- on admission 6.4, peaked at 8.9- improved Likely multifactorial in the setting of resp distress on admission. Repeat lactic acid ordered ?? CT angio of the abdomen reported- ??Diffuse atherosclerotic disease. Resolution of previously seen dilated small bowel loop without evidence of mesenteric ischemia as questioned. 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 Small effusions, mild anasarca, trace ascites, and mesenteric stranding, suggesting volume overload.??Mildly lobulated hepatic contour with trace perisplenic fluid, which may indicate early changes of chronic liver disease. Cystic pancreatic lesion has grown slowly over time further characterization with MRI/MRCP is recommended on a nonemergent basis. ?? Apixaban restarted,??aspirin is on hold. ?? Iron deficiency anemia Iron panel showed FREDERICK?? Difficult access and right IJ TLC placed in the ED. Hb this AM noted to be low. No acute bleeding/active bleeding noted. Blood transfusion consent obtained. Ordered repeat labs. ?? History of coronary artery disease Continue metoprolol, ASA on hold given anemia, and concern for melena Given that he is on apixaban and will be on prednisone chronically for COPD,?? will hold off on restarting ASA- given significant risks, continue apixaban ?? Severe protein malnutrition in the setting of severe COPD Nutrition??consulted MVI ?? Chronic pain h/o ??multiple vertebral fractures, rib fractures that are constant sources of pain for him Currently on duloxetine, gabapentin?? Continue??home Dilaudid Avoid IV narcotics at this time. ??Please refer to the ED care plan?? Scheduled Tylenol, gabapentin and duloxetine ?? Hypertension:??metoprolol, isosorbide dinitrate ?? VTE Prophylaxis:??on apixaban ?? Code Status:??full ?? OMN: Follow-up cultures. High resource utilization noted.?? Avoid IV narcotics at this time. Coordinate with case management and plan for disposition if no acute??infection??noted As per infectious diseases patient is to follow-up with ID and orthopedics at [facility]. F/u H&H and lactic acid. * Mariano JENSEN, Darlyn Naik: PERFORM Event Display: Progress Note Hospital Authored Date: [id number] Patient: ??ANT VARMA ? Age:??67 Years?Sex:??Male?:??1955?? This gentleman was seen at bedside this am for complaint of ongoing pain. He does have an ED care plan with regards to IV opiate seeking behavior. I explained to the patient that I was willing to provide narcotics for his pain but that he did not require IV form as he is able to take po fine. He und erstands but was not pleased that he is not receiving IV form. He requested something for anxiety and a dose of ativan was ordered. Will continue current regimen. An additional dose of po dilaudid was ordered for his pain. Will continue to monitor closely. Consult note * Lily Cuadra: PERFORM Event Display: Consultation Note Authored Date: Patient: ??ANT VARMA ? Age:??67 Years?Sex:??Male?:??1955?? History of Present Illness INFECTIOUS DISEASES CONSULTATION NOTE ?? Date: 06/07/2023 ?? Infectious Diseases Attending: ??Héctor ?? Requesting Attending/Provider: ??Joaquina ?? Reason for Consult:??Known right shoulder septic arthritis ?? Source of Information: CIS, patient (poor historian) ?? History of Present Illness:?? This is a 67-year-old man with a history of COPD on home oxygen and prednisone daily, coronary artery disease status post stenting, active tobacco use, peripheral vascular disease, prior flail chest status post rib fixation, and reported opiate and benzo dependency with prior broken narcotic contract with numerous [id number] presentations/admissions typically due to pain and issues related to COPD. Of note, he was admitted from 07/20-08/13/2022 with MRSA bacteremia of unclear source, though concern for seeding of his right shoulder with abnormal imaging.?? His shoulder was aspirated on 08/27, while on antibiotics, which had 57,000 WBCs though did not grow anything on culture.?? Therefore, hewas not offered any surgical intervention.? He completed a 6-week course of IV vancomycin, though was readmitted from 09/19- 10/02/22 with right should pain and abnormal imaging found to have right shoulder septic arthritis due to MRSA status post OR on 09/20 for open arthrotomy and drainage managed with another 6 weeks of vancomycin with planfor possibly antibiotic tail with doxycycline, though lost to follow-up. ?? 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 He was apparently admitted to [facility] in March with a relapsing right shoulder septic arthritis status post I&D on 03/29 and 04/02 with MRSA on culture apparently managed with daptomycin followed by doxycycline manage by ID there (Dr. Gross). ?? He has continued to have multiple presentations/admissions since, last seen by [facility] (LYDIA Montoya/Dr. Bourgeois) on 06/03 when he was admitted with a presumed COPD exacerbation.?? He was managed with IV vancomycin while admitted, and then discharged on doxycycline for ongoing suppression with plan to follow-up with [facility] as an outpatient.? He was discharged on 06/04, and then presented to the emergency department the morning of 06/05 with reported shortness of breath.?? He received 2 DuoNeb treatments with improvement and was discharged home, only to return to the emergency departments later in the day on 06/05 with a reported productive cough and epigastric pain.?? He was found to be afebrile and mildly tachycardic continued with supplemental oxygen via nasal cannula.?? His WBC count was 14.2 with 93% neutrophils, creatinine of 0.4, and a lactate up to 8.2 with a BNP of 1099.?? A urinalysis was without pyuria and a COVID-19 test wasnegative.?? A chest x-ray revealed a chronic appearing density in the medial left lung base with a clear right lung and no obvious effusions.?? A sputum culture is in process.?? He also had a CT of the abdomen/pelvis which was without any obvious acute process.?? He also underwent CT angiogram of the abdomen and pelvis as well which was also without any acute process.?? The patient was continued on doxycycline and started on ceftriaxone.?? Otherwise, he has remained afebrile and his WBC count has decreased to 11.7 . His most recent lactate was 3.4. ID has been consulted to assist in management.? Today on evaluation, the patient reports worsening of his chronic pain (abdominal), begging for IV Dilaudid and Ativan. He states he has a chronic smokers cough , though it is now worse with green/soto/bloody sputum at times. He denies vomiting or diarrhea. He falls asleep throughout the evaluation. ?? Past Medical and Surgical History:?? -Alcohol use disorder?? -Prior MRSA bacteremia with??relapsing right shoulder septic arthritis due to MRSA as detailed above -Coronary artery disease status post stenting?? -COPD on home oxygen -Left hip THR -Spinal rods and screws?? -Left ankle ORIF -Hypertension?? -Hyperlipidemia?? -Active tobacco use -Peripheral vascular disease?? -Opiate and benzo dependency, previously broken narcotic contract -Anxiety?? -DVT -Lumbar disc disease?? -Flail chest status postsurgical rib fixation ?? Recent Antimicrobials:? Ceftriaxone 1 g daily 06/06???present ??? Doxycycline ?? Medications: Reviewed ?? Antimicrobial Allergies: Reported rash with cephalexin. ?? Family History:??No relevant history of infectious issues in first degree relatives.? Social History and Infectious Diseases Exposure History: Lives with his dog Sharif and smokes cigarettes. Physical Exam Vitals & Measurements T:??97.6?F?? TMIN:??97.6?F?? TMAX:??98.1?F?? HR:??81??(Peripheral)?? RR:??18?? BP:??117/77?? SpO2:??98%?? GENERAL: Chronically ill appearing man in no acute distress HEENT: Anicteric, no subconjunctival petechiae, moist oral mucosa without lesions or thrush CARDIOVASCULAR: Regular rate and rhythm. ??Not able to appreciate any murmurs, rubs, or gallops. ??No peripheral edema.?? RESPIRATORY: Lungs coarse with scattered wheezes GASTROINTESTINAL: Non-distended, normoactive bowel sounds, non-tender GENITOURINARY: No connelly MUSCULOSKELETAL: Right shoulder with a chronic wound - no periwound erythema or induration. Wound has serous drainage, no purulence noted SKIN: ??No diffuse rash present NEUROLOGICAL/PSYCH: A&Ox3, grossly intact LINES:??Right IJ? Microbiology/ID Work-up: ??? Sputum culture 06/06: In process ??? Blood culture 06/05 x 2: In process Assessment/Plan Assessment:??This is a 67-year-old man with a history of COPD on home oxygen and prednisone daily, coronary artery disease status post stenting, active tobacco use, peripheral vascular disease, priorflail chest status post rib fixation, and reported opiate and benzo dependency with prior broken narcotic contract with numerous xick-ga-lhgi presentations/admissions typically due to pain and issues related to COPD. 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 It appears this was most recently managed at [facility] in March status post washout on 03/29 and 04/02 managed with daptomycin followed by suppressive doxycycline. He is now admitted with reported shortness of breath, cough, and acute on chronic abdominal pain prompting current admission. Of note he has been afebrile with amild leukocytosis (likely in the setting of frequent prednisone tapers/chronic prednisone use) and elevated lactate prompting ID consult. ?? At this time, it does not appear that the patient's chronic right shoulder infection is any worse. There is no surrounding erythema or purulence and it is reassuring that the patient is afebrile. He should continue his suppressive doxycycline and follow-up with ID and surgery at [facility] as previously recommended (see ID consult note from 06/03).??Otherwise, the patient clinically does not appear to have a pneumonia. Blood cultures are in process. Urinalysis is not indicative of a UTI. COVID-19 test was negative. No diarrhea to suggest C. difficile infection. It seems unlikely that his elevated lactate is due to an infection. ?? Recommendations: -Continue suppressive doxycycline 100mg PO twice/day -Please inform ID if blood cultures return positive -Follow-up with ID and ortho surgery at [facility] ? Thank you for the consultation, ID will sign-off at this time. ?? Lily Dougherty PA-C Infectious Diseases ?? Discussed with Dr. Anaya ?? Lab Results Test Name Test Result Date/Time WBC 11.7 k/mm3 06/07/2023 05:51 EDT RBC 2.42 m/mm3 06/07/2023 05:51 EDT Hgb 6.6 Gm/dL 06/07/2023 05:51 EDT Hct 21.9 % 06/07/2023 05:51 EDT MCV 90.5 femtoliters 06/07/2023 05:51 EDT MCH 27.3 pg 06/07/2023 05:51 EDT MCHC 30.1 g/dL 06/07/2023 05:51 EDT Platelet Count 235 k/mm3 06/07/2023 05:51 EDT RDW-SD 59.8 femtoliters 06/07/2023 05:51 EDT MPV 8.9 femtoliters 06/07/2023 05:51 EDT Nucleated RBC (Automated) 0.0 #/100 WBC'S 06/07/2023 05:51 EDT Abs. NRBC 0.0 k/mm3 06/07/2023 05:51 EDT Abs. Neut 9.3 k/mm3 06/07/2023 05:51 EDT Abs. Lymph 1.2 k/mm3 06/07/2023 05:51 EDT Abs. Reynolds 0.9 k/mm3 06/07/2023 05:51 EDT Abs. Eo 0.1 k/mm3 06/07/2023 05:51 EDT Abs. Baso 0.0 k/mm3 06/07/2023 05:51 EDT Neut % 79.6 % 06/07/2023 05:51 EDT Lymph % 10.3 % 06/07/2023 05:51 EDT Reynolds % 8.0 % 06/07/2023 05:51 EDT Eos % 0.5 % 06/07/2023 05:51 EDT Baso % 0.1 % 06/07/2023 05:51 EDT Imm Gran 1.5 % 06/07/2023 05:51 EDT Abs. Imm Gran 0.2 k/mm3 06/07/2023 05:51 EDT Sodium 141 mmol/L 06/07/2023 05:51 EDT Potassium 3.8 mmol/L 06/07/2023 05:51 EDT Chloride 97 mmol/L 06/07/2023 05:51 EDT Bicarbonate Level 39 mmol/L 06/07/2023 05:51 EDT Anion Gap 5 06/07/2023 05:51 EDT BUN 13 mg/dL 06/07/2023 05:51 EDT Creatinine-Blood 0.5 mg/dL 06/07/2023 05:51 EDT Estimated GFR Creatinine 112 ML/MIN/1.73 M2 06/07/2023 05:51 EDT Calcium 8.6 mg/dL 06/07/2023 05:51 EDT Magnesium 1.8 mg/dL 06/07/2023 05:51 EDT Note * Gayla Parsons LPN: PERFORM Event Display: Discharge/Transfer Note Hospital Authored Date: [id number] Nursing Discharge Note Entered On: 06/08/2023 15:07 EDT Performed On: 06/08/2023 15:07 EDT by Gayla Parsons LPN Nursing Discharge Note 2 Discharge Time : 06/08/2023 15:07 EDT Discharge Level of Care at Discharge : Home/Residential/Foster Care Patient Left Unit Via : Wheelchair Patient Accompanied Off Unit with : Responsible adult DC Instructions Provided & Signed by Pt : Yes Patient Understands D/C Instructions : Yes Patient Instructions Discharge Signed : Yes Did Pt have Specialty Bed or Wound Vac : No Gayla Parsons LPN - 06/08/2023 15:07 EDT * Darshana Louis MD: PERFORM Event Display: Discharge/Transfer Note Hospital Authored Date: [id number] Patient: ??ANT VARMA ? Age:??67 Years?Sex:??Male?:??1955?? Patient Information Discharge Location: [facility] Primary Care Physician: Not on Staff, PCP Admit Date/Time: 06/05/23 19:05 Discharge Disposition Discharge Disposition: Home with Home Health Discharge Diagnosis Abdominal pain (R10.9) COPD exacerbation (J44.1) Sepsis (A41.9) Anxiety CAD - [...] Budesonide-Formoterol (Symbicort 160mcg/4.5mcg Inhaler)?2?puff(s)?Inhalation?2 times a day Cefpodoxime (cefpodoxime 200 mg oral tablet)?1?tab(s)?200?Milligram?By Mouth?Every 12 hours?for 5?Days Collagenase Topical (collagenase topical 250 u/gm ointment)?See Instructions?Use over right shoulder wound daily Dicyclomine (dicyclomine 10 mg oral capsule)?1?capsule?10?Milligram?By Mouth?4 times a day Doxycycline (doxycycline monohydrate 100 mg oral tablet)?1?tab(s)?100?Milligram?By Mouth?Every 12 hours?for 30?Days?continue suppressive Doxycyline therapy, f/u with ID/DrPriscilla Duloxetine (duloxetine 60 mg oral enteric coated [...] to give the dose of NARCAN [place]. Remove t... Pantoprazole (pantoprazole 40 mg oral [...] Both?5 times a day?dryness Sodium Chloride Nasal ([place] Saline 0.65% nasal gel)?1?spray(s)?Nares, Both?4 times a day Thiamine (Vitamin B1 100 mg oral tablet)?100?Milligram?1?tablet?By Mouth?Daily umeclidinium (Incruse Ellipta 62.5 mcg/inh inhalation powder)?1?puff(s)?Inhalation?Every 24 hours ? Quality Measures Tobacco Use Treatment:? Durable Medical Equipment Current home treatments: Oxygen therapy (06/08/23) On Admit VNA/Hospice/Home Care: [facility], [address], [place] [address] (05/23/23) On Admit Medical Equip Companies: [employer] [address] [facility] [phone] (06/06/23) Discharge recommendations: Home with services (06/03/23) Discharge Medical Equipment Companies: [employer] [facility] (05/11/23) Name of Agency #1: [facility] (05/20/23) Name of Agency #1: [facility] (05/20/23) Agency Drafting Clerk #1: intake (08/12/22) Service Categories #1: Oxygen Therapy, Physical Therapy, Halfway (05/20/23) Service Start Date and Time #1: 10/02/22 14:00:00 (10/02/22) Service Comments #1: The above agency will be providing visiting home services. They should contactyou within 24 ??? 48 hours of returning home. If they do not, please contact the company at the above number. (05/20/23) Service Categories #2: Oxygen Therapy (05/20/23) Patient Going Home on Oxygen: Yes (05/11/23) Portable unit required: Yes (05/11/23) Oxygen Device used at Home: Nasal cannula (05/11/23) CPAP/BiPAP Mask Type: Full (05/25/23) CPAP/BiPAP Mask Size: Large (05/25/23) Ambulatory devices needed: Walker (06/06/23) ? Allergies Allergies ?(Active and Proposed Allergies Only) naproxen? (Severity: Unknown severity, Onset: Unknown) ?Reactions: lesions on lips Toradol? (Severity: Persistent Mild, Onset: Unknown) ?Reactions: hives, Cephalexin allergy, Naproxen, Metaxalone, Morphine allergy Keflex? (Severity: Unknown severity, Onset: Unknown) ?Reactions: rash ?Comments: tolerates pip/tazo 11/17 Skelaxin? (Severity: Unknown severity, Onset: Unknown) ?Reactions: H/O: migraine ? Future Appointments Tuesday 9:00 AM EDT ?? With: Stevenson Plascencia DO Where: [facility] [address] [place] [address]- Status: Pending Hospital Course ? 67 yo male with a history of CAD, COPD, hypertension history of alcohol dependency, hyperlipidemia and PVD smoker presenting to the ED c/o SOB??found to be in COPD exacerbation??with multiple other complaints. ?? COPD exacerbation (J44.1): Acute on chronic??hypoxic respiratory failure Patient??normally on 3 to 4 L of nasal cannula at baseline, was having significant??shortness of breath, cough and wheezing, initially??was??on 6 L nasal cannula,??improved during the hospital courseand down to 3 L at this time. Patient admitted for COPD exacerbation,??possible community-acquired pneumonia given worsening oxygen requirement was started on IV antibiotics as well??along with steroids Improved over the hospital course, switch to taper course of steroids. Continue DuoNebs, Daliresp, Symbicort, Incruse Ellipta. Blood cultures have been negative so far. Patient was??placed on ceftriaxone and azithromycin while in the hospital for possible community-acquired pneumonia, unknown organism,??switch to cefpodoxime for??few more days to complete course. Outpatient follow-up with pulmonary ?? Leukocytosis, initial concern for sepsis but less likely. Elevated white blood cell count and lactate??in the setting of respiratory compromise. Unclear if this is pneumonia versus??wound care??sepsis with cellulitis. He does have multiple wounds in the lower extremity as well as in the buttocks and??in the shoulder area-present on admission. Consulted wound care,??recommended??dressings for the right shoulder??area. No evidence of??worsening??infection/cellulitis.?? Also seen by infectious disease during the hospital course.?? Lorena that this was his chronic septic arthritis and recommended to continue suppressive doxycycline therapy and follow-up with infectious disease and orthopedics at [facility] ?? H/o Rt shoulder septic arthritis , with Rt shoulder??wound Has been treated in the past for MRSA infection / septic arthritis of Rt shoulder, and was most recently on suppressive Doxycycline and septic arthritis from prior hospitalization: ??shoulder XR without signs of osteomyelitis??and, ??superficial culture from wound drainage??grew MRSA MRI done last admission:??difficult to assess on images acquired, tagged WBC scan could be helpful in making this determination, no significant joint effusion to suggest septic arthritis, as read by the radiologist orthopedics consulted??previously and again after MRI, Dr. Nayak reviewed MRI, and no orthopedic intervention or other new orthopedic Recs.?? Had a wound vac which was subsequently discontinued 04/2023 Previous shoulder surgery with ??Mauricio at [facility], as per ortho Evaluated ID here??on this admission- continue ??doxycycline for suppressive therapy until follow-up with his??ID physician, at [facility] Wound care to wound on right shoulder- as rec'd by wound care Cleanse with Vashe. Pat dry. Apply z-guard to periwound.?? Apply morena thick layer of Santyl to wound bed. Cover with Mepilex foam dressing. Change daily and PRN for soilage/soaking. *If wound is draining through Mepilex foam dressing; Please use Mextra Pad with DSD* ?? Abdominal Pain Lactic acidosis noted, s/p IV fluids- on admission 6.4, peaked at 8.9- improved Likely multifactorial in the setting of resp distress on admission. CT angio of the abdomen reported- ??Diffuse atherosclerotic disease. Resolution of previously seen dilated small bowel loop without evidence of mesenteric ischemia as questioned. 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 Small effusions, mild anasarca, trace ascites, and mesenteric stranding, suggesting volume overload.??Mildly lobulated hepatic contour with trace perisplenic fluid, which may indicate early changes of chronic liver disease. Cystic pancreatic lesion has grown slowly over time further characterization with MRI/MRCP is recommended on a nonemergent basis. On examination today, abdomen exam is benign. ??He denies having any abdominal pain at this time. ?? Iron deficiency anemia Iron panel showed FREDERICK?? Difficult access and right IJ TLC placed in the ED.?? Was seen by GI as well, given his tenuous respiratory status and chronic respiratory failure did not feel??no requirement for an active??endoscopic procedure as also no evidence of any acute bleeding. ??Could be secondary to his??chronic disease. H&H stable at this time. ?? History of coronary artery disease Continue metoprolol, ASA Given that he is on apixaban and will be on prednisone chronically for COPD,?? will hold off on restarting ASA- given significant risks, continue apixaban ?? Severe protein malnutrition in the setting of severe COPD Nutrition??consulted,??continue with oral supplements, multivitamin, thiamine. ?? Chronic pain h/o ??multiple vertebral fractures, rib fractures that are constant sources of pain for him Currently on duloxetine, gabapentin?? Continue??home Dilaudid Patient has an ED care plan, please refer to this during each admissions. ??Avoid IV narcotics. ??Patient is not complaining of any significant worsening pain at this time. Continue pain meds as before for him ?? Hypertension:??metoprolol, isosorbide dinitrate ?? Code Status:??full ?? Patient medically stable for discharge at this time,??DC home, with services.?? Outpatient follow-up with PCP in 1 to 2 weeks Follow-up with infectious disease??as scheduled next??at [facility] Objective Assessment and Plan Discharge Planning:? Vital Signs?? Temperature: 97.8 DegF (06/08/23 11:33:00) Temperature Route: Oral (06/08/23 11:33:00) Pulse Rate:??92 bpm??High (06/08/23 11:33:00) Respiratory Rate: 18 br/min (06/08/23 13:11:00) Systolic Blood Pressure: 137 mm Hg (06/08/23 11:33:00) Diastolic Blood Pressure: 64 mm Hg (06/08/23 11:33:00) Blood pressure sites: Arm, left (06/08/23 11:33:00) Mean Arterial Pressure: 88 mm Hg (06/08/23 11:33:00) Pulse Pressure: 73 mm Hg (06/08/23 11:33:00) Oxygen Saturation: 94 % (06/08/23 11:33:00) Liters per Minute: 3 L/min (06/08/23 11:33:00) Mode of Delivery (Oxygen): Nasal cannula (06/08/23 11:33:00) Early Warning Score: 7 (06/08/23 13:14:26) ? . Physical Exam Middle-age male not in any acute distress??on 3 L nasal cannula at the time of my visit HEENT PERRLA, EOMI Neck supple Chest??diminished breath sounds at the bases, no added sounds or no??accessory muscle use. Heart S1-S2 regular no murmurs appreciated Abdomen soft nontender bowel sounds present Right shoulder??site in dressing.?? CONSULTANT DIETITIAN awake alert oriented x3 with no gross focal neurological deficit Consultants Infectious disease Wound care??RN. Gastroenterology Pending Results Basic Metabolic Panel ordered on 06/09/2023 Blood Culture ordered on 06/05/2023 Blood Culture #2 ordered on 06/05/2023 CBC ordered on 06/09/2023 Hold Blue Top Tube ordered on 06/06/2023 Lactic Acid Level ordered on 06/06/2023 Sputum Culture w/ Gram Smear ordered on 06/06/2023 Follow-Up Appointments Added Follow Up ?Time Frame ?Comments Not on Staff, PCP?1 to 2 weeks Patient Instructions ??Right Shoulder: Cleanse with Vashe. Pat dry. Apply z-guard to periwound. ??Apply morena thick layer of Santyl to wound bed. Cover with Mepilex foam dressing. Change daily and PRN for soilage/soaking. *If wound is draining through Mepilex foam dressing; Please use Mextra Pad with DSD*? Follow-up with your primary care physician within a week??of discharge Follow-up with pulmonary, follow-up with infectious disease as scheduled next. Post Discharge Care Activity: ?? OOB ad Cha Code Status: ?? Full Resuscitation Condition: fair Prognosis: Fair Discharge ?home, ??06/08/23 14:36:00 EDT Discharge Prescriptions ?ePrescribed, ??06/08/23 14:36:00 EDT Home Health Face to Face ^HomeHealthFTF Results Discharge Labs BLOOD BANK Blood Type A Negative ()?? 06/07/2023 17:09 Antibody Screen Negative ()?? 06/07/2023 17:09 ?? BLOOD COUNT & DIFF WBC 16.4 k/mm3 (High)?? 06/08/2023 10:09 RBC 2.44 m/mm3 (Low)?? 06/08/2023 10:09 Hgb 7.0 Gm/dL (Low)?? 06/08/2023 10:09 Hct 22.3 % (Low)?? 06/08/2023 10:09 MCV 91.4 femtoliters ()?? 06/08/2023 10:09 MCH 28.7 pg ()?? 06/08/2023 10:09 MCHC 31.4 g/dL (Low)?? 06/08/2023 10:09 Platelet Count 268 k/mm3 ()?? 06/08/2023 10:09 RDW-SD 60.4 femtoliters (High)?? 06/08/2023 10:09 MPV 9.4 femtoliters ()?? 06/08/2023 10:09 Nucleated RBC (Automated) 0.0 #/100 WBC'S ()?? 06/08/2023 10:09 Abs. NRBC 0.0 k/mm3 ()?? 06/08/2023 10:09 Abs. Neut 14.0 k/mm3 (High)?? 06/08/2023 10:09 Abs. Lymph 1.2 k/mm3 ()?? 06/08/2023 10:09 Abs. Reynolds 0.9 k/mm3 ()?? 06/08/2023 10:09 Abs. Eo 0.1 k/mm3 ()?? 06/08/2023 10:09 Abs. Baso 0.0 k/mm3 ()?? 06/08/2023 10:09 Neut % 85.5 % (High)?? 06/08/2023 10:09 Lymph % 7.1 % (Low)?? 06/08/2023 10:09 Reynolds % 5.4 % ()?? 06/08/2023 10:09 Eos % 0.7 % ()?? 06/08/2023 10:09 Baso % 0.1 % ()?? 06/08/2023 10:09 Imm Gran 1.2 % ()?? 06/08/2023 10:09 Abs. Imm Gran 0.2 k/mm3 ()?? 06/08/2023 10:09 ?? CARDIAC Nt-Probnp 1099 pg/mL (High)?? 06/05/2023 20:25 High Sensitivity Troponin (HSTnT) 31 ng/L (High)?? 06/05/2023 20:25 ?? CHEM GENERAL Sodium 142 mmol/L ()?? 06/08/2023 10:09 Potassium 3.7 mmol/L ()?? 06/08/2023 10:09 Chloride 97 mmol/L (Low)?? 06/08/2023 10:09 Bicarbonate Level 34 mmol/L (High)?? 06/08/2023 10:09 Anion Gap 11 ()?? 06/08/2023 10:09 Glucose Level 113 mg/dL (High)?? 06/08/2023 10:09 BUN 13 mg/dL ()?? 06/08/2023 10:09 Creatinine-Blood 0.5 mg/dL (Low)?? 06/08/2023 10:09 Estimated GFR Creatinine 113 ML/MIN/1.73 M2 ()?? 06/08/2023 10:09 Calcium 8.7 mg/dL ()?? 06/08/2023 10:09 Magnesium 1.7 mg/dL ()?? 06/08/2023 10:09 Protein, Total 5.6 Gm/dL (Low)?? 06/05/2023 20:25 Albumin 3.7 Gm/dL ()?? 06/05/2023 20:25 AG Ratio 1.9 ()?? 06/05/2023 20:25 Alkaline Phosphatase 79 units/L ()?? 06/05/2023 20:25 Lipase 23 units/L ()?? 06/05/2023 20:25 AST (SGOT) 22 units/L ()?? 06/05/2023 20:25 ALT (SGPT) 19 units/L ()?? 06/05/2023 20:25 Bilirubin, Total 0.2 mg/dL ()?? 06/05/2023 20:25 Lactate 3.1 mmol/L (High)?? 06/07/2023 17:21 ?? COAG INR 1.0 ()?? 06/05/2023 20:25 Protime (PT) 10.8 seconds ()?? 06/05/2023 20:25 ?? ENDOCRINE/TUMOR MARKER TSH 0.57 uIU/mL ()?? 06/05/2023 20:25 ? UA/URINALYSIS Appear/Color, Urine LIGHT YELLOW ()?? 06/06/2023 02:01 Specific [place], Urine 1.047 (High)?? 06/06/2023 02:01 pH, Urine 6.5 ()?? 06/06/2023 02:01 Albumin, Urine 1+ (Abnormal)?? 06/06/2023 02:01 Glucose, Urine NEGATIVE ()?? 06/06/2023 02:01 Ketones, Urine NEGATIVE ()?? 06/06/2023 02:01 Bilirubin, Urine NEGATIVE ()?? 06/06/2023 02:01 Hemoglobin, Urine TRACE (Abnormal)?? 06/06/2023 02:01 Nitrite, Urine NEGATIVE ()?? 06/06/2023 02:01 Leukocyte, Urine NEGATIVE ()?? 06/06/2023 02:01 Urobilinogen NORMAL mg/dL ()?? 06/06/2023 02:01 WBC's, Urine 1 /HPF ()?? 06/06/2023 02:01 RBC's, Urine 1 /HPF ()?? 06/06/2023 02:01 Hold Urine Culture Testing available 48 hours from time of collection. ()?? 06/06/2023 02:01 ?? URINE OTHER Est Creatinine Clearance 117.50 mL/min ()?? 06/07/2023 14:56 ? VIROLOGY COVID-19 by RT-PCR NEGATIVE ()?? 06/06/2023 08:16 ? Microbiology ?? COVID-19 (Novel Coronavirus), Rapid PCR?? Completed?? Source: Nasal Body Site: Nose Collected Dt/Tm: 06/06/2023 08:05 Last Updated Dt/Tm: 06/06/2023 09:36 ? Imaging(s) ?CT Angio Abdomen and Pelvis ?? 06/06/2023 06:30??by Manpreet Mims MD ?IMPRESSION: 1. Diffuse atherosclerotic disease as detailed above. 2. Resolution of previously seen dilated small bowel loop without evidence of mesenteric ischemia as questioned. 3. 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 4. Calcified but patent calf vessels bilaterally with dorsalis pedis arteries not well opacified oneither side. 5. Small effusions, mild anasarca, trace ascites, and mesenteric stranding, suggesting volume overload. 6. Mildly lobulated hepatic contour with trace perisplenic fluid, which may indicate early changes of chronic liver disease. 7. Cystic pancreatic lesion has grown slowly over time further characterization with MRI/MRCP is recommended on a nonemergent basis. ? Consults(s) ?Consultation Note ?? 06/07/2023 13:22??by Lily Cuadra ? 35??minutes spent on discharge * Gayla Parsons LPN: PERFORM Event Display: Patient Education/Instruction Authored Date: [id number] Inpatient Adult Discharge Instructions [address] [address] Name: ANT VARMA : 1955 Visit: 06/05/2023 19:05:00 Current Date: 06/08/2023 14:37 Account: [id number] Inpatient Adult Discharge Instructions We would like [...] and their families. Surveys are administered by [employer] ?? If further treatment with your primary care physician or another doctor is recommended, it is important for you to keep the appointment. Call your primary care physician or return to the Emergency Department immediately if your condition worsens, fails to improve, or new symptoms develop. If you need to find a doctor, you can call [facility] for a referral at [phone] or toll free at [phone]) or log in to [email or web address] ?? You can view and manage your care through the patient portal or by using a health care lore of your choosing. [employer] is a website that allows you to securely view your medical information including your hospital discharge summary, office visit summaries, medications and follow-up visits. You can also request appointments, renew medications, and request access to your medical information using a health care lore of your choosing, or just ask a question. You can enroll at [email or web address] or register during your next office visit. You have been discharged from [facility], Patient Care Unit: D3B. If you have any questions regarding these instructions after you leave, please call us and we will be happy to assist you. [facility] Your Care Team Attending Physician Darshana Louis MD Consulting Providers Ming Salcido MD Discharging Providers Darshana Louis MD Reason for Admission SOB/ABD pain seen earlier today with new increased O2 needs per patient. Your Diagnosis COPD exacerbation Sepsis Abdominal pain Tests Performed Below is a partial list of the tests performed during your hospitalization. You may have had other tests and procedures not included in this list. Please discuss all test results with your provider. BUN Calcium Level CBC w/ Differential Comprehensive Metabolic Panel COVID-19 (Novel Coronavirus), Rapid PCR Creatinine Electrolytes High??Sensitivity??Troponin T HOLD BLUE TUBE?-- Results Pending -- INR Lactic Acid Level Lipase Magnesium Level ProBNP TSH with T4 Reflex (Adults Only) Type and Screen Urinalysis w/hold for Urine Culture CT Angio Abdomen and Pelvis CT Angio Abdomen Aorta Bilat IlioFem CXR Portable XR Chest Portable You will be contacted within 72 hours with your results. Primary Care Provider Not on Staff, PCP Advance Directive Health Care Proxy on File Yes - Health Care Proxy Yes - MOLST Discharge Vitals Temperature: 97.8 DegF Height: 186 cm Pulse Rate:??92 bpm??High Weight: 56.4 kg Respiratory Rate: 18 br/min Body Mass Index:??16.3 kg/m2??Low Systolic Blood Pressure: 137 mm Hg Body surface area: 1.71 Diastolic Blood Pressure: 64 mm Hg ?? Oxygen Saturation: 94 % ?? Studies Pending All tests and labs ordered during this hospital stay have been completed unless listed below. Please discuss all pending results with your provider listed above in these instructions. ?? Basic Metabolic Panel Blood Culture Blood Culture #2 CBC Hold Blue Top Tube (HOLD BLUE TUBE) Lactic Acid Level (Lactate Level) Sputum Culture w/ Gram Smear What to do next Instructions From Your Doctor ??Right Shoulder: Cleanse with Vashe. Pat dry. Apply z-guard to periwound. ??Apply morena thick layer of Santyl to wound bed. Cover with Mepilex foam dressing. Change daily and PRN for soilage/soaking. *If wound is draining through Mepilex foam dressing; Please use Mextra Pad with DSD*? Follow-up with your primary care physician within a week??of discharge Follow-up with pulmonary, follow-up with infectious disease as scheduled next. Discharge Orders Activity:?? OOB ad Cha Code Status:?? Full Resuscitation Condition:??fair Prognosis:??Fair Scheduled Follow-Up Appointments Tuesday 9:00 AM EDT ?? With: Stevenson Plascencia DO Where: [facility] [address] [place] [id number]- Status: Pending You Need to Schedule the Following Appointments Follow Up with??Not on Staff, PCP When:??Within 1 to 2 weeks Discharge Medications ANT VARMA :1955 Visit Date:06/05/2023 Medications: Please continue your medications until treatment is completed or stopped by your provider. Medications not listed below should be discontinued. Discuss any questions related to medications with your provider. What How Much When Instructions Next Dose New Cefpodoxime (cefpodoxime 200 mg oral tablet) 1 tab(s) Oral Every 12 hours Duration: 5 Days Pickup at [facility]/pharmacy #[id number] 06/08/2023 at evening Changed PredniSONE (predniSONE 20 mg oral tablet) See instructions 3 tab for 2 days, 2.5 tab for 2 days, 2 tab for 2 days, 1.5 tab for 2 days, 1 tab for 2 days then stay on 15mg daily maintanence dose as before ?? Pickup at [facility]/pharmacy #[id number] 06/09/2023 as directed Changed PredniSONE (predniSONE 5 mg oral tablet) 3 tab(s) Oral Daily Duration: 30 Days 15 mg daily maintanence dose after the initial taper ?? Pickup at [facility]/pharmacy #[id number] 06/19/2023 Unchanged Acetaminophen (acetaminophen 325 mg oral tablet) 2 tab(s) Oral Every 4 hours as needed for as needed for fever as needed Unchanged Albuterol (albuterol 0.042% inhalation solution) 3 Milliliter Nebulized inhalation Every 4 hours every 4 hours Unchanged Albuterol (albuterol 90 mcg/ inh inhalation powder) 2 puff(s) Inhalation Every 4 hours as needed for as needed as needed Unchanged apixaban (Eliquis 5 mg oral tablet) 1 tab(s) Oral Twice a day Duration: 30 Days 06/08/2023 at evening Unchanged Atorvastatin (atorvastatin 80 mg oral tablet) 1 tab(s) Oral Daily Unchanged Budesonide-Formoterol (Symbicort 160mcg/ 4.5mcg Inhaler) 2 puff(s) Inhalation Twice a day 06/08/2023 at evening Unchanged Collagenase Topical (collagenase topical 250 u/ gm ointment) See instructions Use over right shoulder wound daily ?? as directed Unchanged Dicyclomine (dicyclomine 10 mg oral capsule) 1 capsule Oral 4 times a day 06/08/2023 at 17:00pm Unchanged Doxycycline (doxycycline monohydrate 100 mg oral tablet) 1 tab(s) Oral Every 12 hours Duration: 30 Days continue suppressive Doxycyline therapy, f/ u with ID/ Dr. Perez ?? 06/08/2023 at 20:00pm Unchanged Duloxetine (duloxetine 60 mg oral enteric coated capsule) 1 capsule Oral Twice a day 06/08/2023 at evening Unchanged Ferrous Sulfate (ferrous sulfate 325 mg oral enteric coated tablet) 1 tab(s) Oral Daily 06/09/2023 Unchanged Gabapentin (gabapentin 300 mg oral capsule) 2 capsule Oral 3 times a day 06/08/2023 at evening Unchanged Guaifenesin/ Dextromethorphan (Robitussin DM Liquid) 5 Milliliter Oral Every 6 hours as needed for Cough as needed Unchanged Hydromorphone (HYDROmorphone 4 mg oral tablet) 1 tab(s) Oral Every 4 hours as needed for Pain , Severe as needed Unchanged HydrOXYzine (hydrOXYzine hydrochloride 10 mg oral tablet) 1 tab(s) Oral 3 times a day as needed for Anxiety as needed Unchanged Isosorbide Dinitrate (isosorbide dinitrate 30 mg oral tablet) 1 tab(s) Oral Twice a day 06/08/2023 at evening Unchanged Loperamide (loperamide 2 mg oral capsule) 1 capsule Oral Every 6 hours as needed for for loose stool as needed Unchanged Melatonin 10 Milligram Oral Daily at Bedtime as needed for as needed for sleep as needed Unchanged Metoprolol (Metoprolol Succinate ER 25 mg oral tablet, extended release) 1 tab(s) Oral Daily 06/09/2023 Unchanged nalOXONE (Narcan 4 mg/ 0.1 mL nasal spray) See instructions If concern for opioid overdose. Gently insert the tip of the nozzle into one nostril, until your fingers on either side of the nozzle are against the bottom of the person's nose. Press the plunger firmly to give the dose of NARCAN [place]. Remove the NARCAN [place] from the nostril after giving the dose. Get emergency medical help right away. ?? see instruction Unchanged Pantoprazole (pantoprazole 40 mg oral delayed release tablet) 1 tab(s) Oral Daily 06/09/2023 Unchanged Pantoprazole (Protonix 40 mg oral delayed release tablet) 1 tab(s) Oral Daily duplicate Unchanged roflumilast (roflumilast 500 mcg oral tablet) 1 tab(s) Oral Daily 06/09/2023 Unchanged Sodium Chloride Nasal ([place] Saline 0.65% nasal gel) 1 spray(s) Nares, Both 4 times a day 06/08/2023 at evening Unchanged Sodium Chloride Nasal (sodium chloride 0.65% nasal spray) 1 spray(s) Nares, Both 5 times a day dryness ?? as directed Unchanged Thiamine (Vitamin B1 100 mg oral tablet) 1 tab(s) Oral Daily 06/09/2023 Unchanged umeclidinium (Incruse Ellipta 62.5 mcg/ inh inhalation powder) 1 puff(s) Inhalation Every 24 hours 06/09/2023 Pharmacy Information [facility]/pharmacy #[id number]: [address], [place] [id number] [phone] Test Results Below is a partial list of the most recent Laboratory test results done prior to this discharge. You may have had other tests and procedures not included in this list. Please discuss all test resultswith your provider. Est Creatinine Clearance - 117.50 mL/min (06/07/2023) BUN (06/07/2023) ???BUN - 13 mg/dL Calcium Level (06/07/2023) ???Calcium - 8.6 mg/dL CBC w/ Differential (06/08/2023) ???WBC - 16.4 k/mm3???RBC - 2.44 m/mm3???Hgb - 7.0 Gm/dL???Hct - 22.3 %???MCV - 91.4 femtoliters???MCH - 28.7 pg???MCHC - 31.4 g/dL???Platelet Count - 268 k/mm3???RDW-SD - 60.4 femtoliters???MPV - 9.4 femtoliters???Nucleated RBC (Automated) - 0.0 #/100 WBC'S???Abs. NRBC - 0.0 k/mm3???Abs. Neut - 14.0 k/mm3???Abs. Lymph - 1.2 k/mm3???Abs. Reynolds - 0.9 k/mm3???Abs. Eo - 0.1 k/mm3???Abs. Baso - 0.0 k/mm3???Neut % - 85.5 %???Lymph % - 7.1 %???Reynolds % - 5.4 %???Eos % - 0.7 %???Baso % - 0.1 %???Imm Gran- 1.2 %???Abs. Imm Gran - 0.2 k/mm3 Comprehensive Metabolic Panel (06/05/2023) ???Sodium - 142 mmol/L???Potassium - 3.8 mmol/L???Chloride - 97 mmol/L???Bicarbonate Level - 27 mmol/L???Anion Gap - 18???Glucose Level - 140 mg/dL???BUN - 11 mg/dL???Creatinine-Blood - 0.4 mg/dL???Estimated GFR Creatinine - 120 ML/MIN/1.73 M2???Calcium - 9.3 mg/dL???Protein, Total - 5.6 Gm/dL???Alb umin - 3.7 Gm/dL???AG Ratio - 1.9???Alkaline Phosphatase - 79 units/L???AST (SGOT) - 22 units/L???ALT (SGPT) - 19 units/L???Bilirubin, Total - 0.2 mg/dL COVID-19 (Novel Coronavirus), Rapid PCR (06/06/2023) ???COVID-19 by RT-PCR - NEGATIVE Creatinine (06/07/2023) ???Creatinine-Blood - 0.5 mg/dL???Estimated GFR Creatinine - 112 ML/MIN/1.73 M2 Electrolytes (06/07/2023) ???Sodium - 141 mmol/L???Potassium - 3.8 mmol/L???Chloride - 97 mmol/L???Bicarbonate Level - 39 mmol/L???Anion Gap - 5 High??Sensitivity??Troponin T (06/05/2023) ???High Sensitivity Troponin (HSTnT) - 31 ng/L INR (06/05/2023) ???INR - 1.0???Protime (PT) - 10.8 seconds Lactic Acid Level (06/07/2023) ???Lactate - 3.1 mmol/L Lipase (06/05/2023) ???Lipase - 23 units/L Magnesium Level (06/08/2023) ???Magnesium - 1.7 mg/dL ProBNP (06/05/2023) ???Nt-Probnp - 1099 pg/mL TSH with T4 Reflex (Adults Only) (06/05/2023) ???TSH - 0.57 uIU/mL Type and Screen (06/07/2023) ???Blood Type - A Negative???Antibody Screen - Negative Urinalysis w/hold for Urine Culture (06/06/2023) ???Appear/Color, Urine - LIGHT YELLOW???Specific [place], Urine - 1.047???pH, Urine - 6.5???Albumin, Urine - 1+???Glucose, Urine - NEGATIVE???Ketones, Urine - NEGATIVE???Bilirubin, Urine - NEGATIVE???Hemoglobin, Urine - TRACE???Nitrite, Urine - NEGATIVE???Leukocyte, Urine - NEGATIVE???Urobilinogen - NORMAL???WBC's, Urine - 1 /HPF???RBC's, Urine - 1 /HPF???Hold Urine Culture - Testing available 48hours from time of collection. Allergies (NKA means [...] Metabolic alkalosis?? Multiple fractures of ribs?? Old IL (myocardial infarction) X 3?? old Rib fractures, right 3-8?? Pulmonary cachexia due to COPD?? PVD (peripheral vascular disease)?? Smoking greater than 40 pack years?? Tobacco dependence?? Underweight?? Education Materials Below is the list of Educational Leaflet Providered with your Discharge Instructions. Valuables and Belongings I fully understand and agree that [facility] accepts no responsibility for all my personal [...] patient Date for Pt to Sign Valuables/Belongings: 06/06/23 10:40:00 ?? Other Discharge Information ?? Wound Assessment?? Wound Assessment?? Wound Location I: Shoulder, right Wound Type I: Surgical Wound I, Present on Admission: Yes Wound Location II: Leg, left lower Wound Type II: Surgical ? Pulmonary Rehab Status?? Pulmonary Rehab Discharge [...] are strongly encouraged to quit. Please call [facility] Link at [phone] or [phone] ([phone]) or log in to [email or web address] for referrals to smoking cessation programs. ?? 988 Suicide & Crisis Lifeline is available 20/06 if you or someone you know needs to find a reason to keep living. By calling 988 you'll be connected to a skilled, trained counselor at a crisis center in your area. INPATIENT DISCHARGE INSTRUCTIONS SIGNATURE PAGE ANT VARMA Location:[facility] Registration Date and Time:06/05/2023 19:05 EDT Primary Care Physician: Not on Staff, PCP Attending Physician: Missy AMAYA, [facility], I ANT VARMA, have received the above patient education materials/instructions and have verbalized understanding. If ambulance or transport services are being used I further acknowledge being given a choice of service. ?? If you need to contact me, please call me at this number: . Patient/Sales Merchandising Specialist Name: Patient/Sales Merchandising Specialist Signature: Relationship to Patient: Witness Name/Signature: Date: Patient Care team information Care Team Personnel Name: Glo Camarena RN Position: [facility] RN Member Role: Primary Care Nurse Name: Fatimah Bennett RN Position: [facility] RN Member Role: Primary Care Nurse Name: Mariely Hardy RN Position: [facility] RN Member Role: Primary Care Nurse Name: Marleen Uriarte RN Position: [facility] RN Member Role: Primary Care Nurse Name: Sydney Zelaya Position: [facility] SN Support Member Role: Lifetime Consulting Physician Name: Azeem Barahona RN Position: [facility] RN Member Role: Primary Care Nurse Name: Mag Harry RN Position: [facility] RN Member Role: Primary Care Nurse Name: An Blount RN Position: [facility] RN Supv Member Role: Primary Care Nurse Name: Rebecca Whitley RN Position: [facility] RN Member Role: Primary Care Nurse Name: Marianna Ng RN Position: [facility] RN Member Role: Primary Care Nurse Name: Avani Odell RN Position: [facility] RN Member Role: Primary Care Nurse Name: Lisbet Hickman RN Position: [facility] RN Member Role: Primary Care Nurse Name: Ruben Bello RN Position: [facility] RN Member Role: Primary Care Nurse Name: Araceli Simon RN Position: [facility] RN Member Role: Primary Care Nurse Name: Judi Streeter RN Position: [facility] RN Member Role: Primary Care Nurse Name: Moni Dugan RN Position: [facility] RN Member Role: Primary Care Nurse Name: Misty Nguyen RN Position: [facility] RN Member Role: Primary Care Nurse Name: Hetal Archer LPN Position: [facility] RN Member Role: Primary Care Nurse Name: Joyce Cobb Position: [facility] RN Member Role: Primary Care Nurse Name: Sarwat Aj RN Position: [facility] RN Member Role: Primary Care Nurse Name: César Patel RN Position: [facility] RN Member Role: Primary Care Nurse Name: Cassi Batista RN Position: [facility] RN Member Role: Primary Care Nurse Name: Daija Huitron RN Position: [facility] RN Member Role: Primary Care Nurse Name: Ellis Mayfield RN Position: [facility] RN Supv Member Role: Primary Care Nurse Name: Aayh Robison RN Position: [facility] RN Member Role: Primary Care Nurse Name: Radha Moreno RN Position: [facility] RN Member Role: Primary Care Nurse Name: Jina Smalls RN Position: [facility] RN Member Role: Primary Care Nurse Name: Laura Clements RN Position: [facility] RN Member Role: Primary Care Nurse Name: Colette Syed RN Position: [facility] RN Member Role: Primary Care Nurse Name: Muriel Daley RN Position: [facility] RN Supv Member Role: Primary Care Nurse Name: Judith Rojas LPN Position: [facility] RN Member Role: Primary Care Nurse Name: Sydney Raza RN Position: [facility] RN Member Role: Primary Care Nurse Name: Rachna Renteria RN Position: [facility] RN Member Role: Primary Care Nurse Name: Zohreh Pink RN Position: [facility] RN Member Role: Primary Care Nurse Name: Sophie Berrios RN Position: [facility] RN Member Role: Primary Care Nurse Name: Grisel Mcgowan RN Position: [facility] RN Member Role: Primary Care Nurse Name: Uyen Mitchell RN Position: [facility] RN Member Role: Primary Care Nurse Name: Nasra Smith NP Position: Reference Physician Member Role: Primary Care Nurse Address: Address: [address] [place] [address] Name: Silas Knox RN Position: [facility] RN Member Role: Primary Care Nurse Name: Elham Lee RN Position: [facility] AMB Nurse Member Role: Primary Care Nurse Name: Dariana Mariee RN Position: [facility] RN Member Role: Primary Care Nurse Name: Ana María Cat RN Position: [facility] RN Member Role: Primary Care Nurse Name: Janet Pacheco RN Position: [facility] RN Member Role: Primary Care Nurse Name: Flor Holley Position: [facility] RN Member Role: Primary Care Nurse Name: Bret Aguirre RN Position: [facility] RN Member Role: Primary Care Nurse Name: Audra Martinez RN Position: [facility] RN Member Role: Primary Care Nurse Name: Shahbaz Bobo RN Position: [facility] RN Member Role: Primary Care Nurse Name: Jennifer Yin LPN Position: [facility] RN Member Role: Primary Care Nurse Name: Alina Arce RN Position: [facility] RN Member Role: Primary Care Nurse Name: Judi Krueger RN Position: [facility] RN Member Role: Primary Care Nurse Name: Kasia Lund RN Position: [facility] RN Member Role: Primary Care Nurse Name: Rachna Serrano RN Position: [facility] RN Member Role: Primary Care Nurse Name: Naveen Villalobos RN Position: [facility] RN Member Role: Primary Care Nurse Name: Not on Staff, PCP Position: [facility] Physician (General Medicine) Member Role: PCP Name: Radha Masterson RN Position: [facility] RN Member Role: Primary Care Nurse Name: Landy Villarreal RN Position: [facility] RN Member Role: Primary Care Nurse Name: Adria Bell RN Position: [facility] RN Member Role: Primary Care Nurse Name: Amy Larios RN Position: [facility] RN Member Role: Primary Care Nurse Name: Indira Lindsey RN Position: [facility] SN RN Member Role: Primary Care Nurse Name: Rosa Elena Pope RN Position: [facility] RN Member Role: Primary Care Nurse Name: Florentino Garcia RN Position: [facility] RN Member Role: Primary Care Nurse Name: Cristel Moreno RN Position: [facility] RN Member Role: Primary Care Nurse Name: Rosa Elena De León RN [facility] Member Role: Primary Care Nurse Name: Nell Lagos RN Position: [facility] RN Member Role: Primary Care Nurse Name: Judi Hamilton RN Position: [facility] RN Member Role: Primary Care Nurse Name: Tulio Pina RN Position: [facility] RN Member Role: Primary Care Nurse Name: Maximiliano Claros RN Position: [facility] RN Member Role: Primary Care Nurse Name: Narda Barnes RN Position: [facility] RN Member Role: Primary Care Nurse Name: Zoë Cisse RN Position: [facility] RN Member Role: Primary Care Nurse Name: Pat Bowers RN Position: [facility] SN RN Member Role: Primary Care Nurse Name: Gemma Chavira RN Position: [facility] RN Member Role: Primary Care Nurse Name: Ruy Salcido RN Position: [facility] RN Member Role: Primary Care Nurse Name: Hilaria Aparicio RN Position: [facility] RN Member Role: Primary Care Nurse Name: Carly Rosado RN Position: [facility] RN Neil Member Role: Primary Care Nurse Name: Taryn Rosado RN Position: [facility] RN Member Role: Primary Care Nurse Name: Sydney Rosado RN Position: [facility] RN Member Role: Primary Care Nurse Name: Uriel Dumont Position: [facility] RN Member Role: Primary Care Nurse Name: Selene Vazquez RN Position: [facility] RN Member Role: Primary Care Nurse Name: César Gerber RN Position: [facility] RN Member Role: Primary Care Nurse Name: Dariana Becerra RN Position: [facility] RN Member Role: Primary Care Nurse Name: Leyla Verma LPN Position: [facility] RN Member Role: Primary Care Nurse Name: Rody Mays RN Position: [facility] RN Member Role: Primary Care Nurse Name: Marielos Mixon RN Position: [facility] RN Member Role: Primary Care Nurse Name: Radha Flores RN Position: [facility] RN Member Role: Primary Care Nurse Name: Hipolito Giles RN Position: [facility] RN Member Role: Primary Care Nurse Name: Rose Kyle RN Position[facility] Member Role: Primary Care Nurse Name: Aimee Salamanca RN Position: [facility] RN Member Role: Primary Care Nurse Name: Jacobo Caceres Position: [facility] RN Member Role: Primary Care Nurse Name: Savanna PINK Attending Position: [facility] ED Medicine MD Name: Anna Deng RN Position: [facility] ED RN W/OE and Tasks Member Role: Patient Care Provider Name: Gonzalo Han LPN Position: [facility] ED RN W/OE and Tasks Member Role: Patient Care Provider Name: Azeem Vo Position: [facility] ED [facility] Member Role: Customs Officer Care Team Related Persons Name: NORIS STEVENSON Address: home [address] [address] Name: MELINA VARMA Address: home [place] Name: GARRY VARMA Address: home [address] [address]
--- OUTSIDE RECORDS SUMMARY | 2023-08-15 20:32 | XMS_ITS | Continuity of Care Document ---
Author Name Unknown Organization [facility] ter Address [address] [place] [id number] Care Team Providers Care Digital Research Analyst Name Role Phone Jorge Garcia III, MD Primary Care Physician [phone] Encounter [facility] Date(s): 02/08/22 - 02/15/[address] [id number] Discharge Disposition: A-D/C Home Attending Physician: Delmar Gonzalez MD Admitting Physician: Delmar Gonzalez MD Referring Physician: Not on Staff, Referring MD Allergies, Adverse Reactions, Alerts Substance Reaction Severity Status morphine 1 itch Active Skelaxin H/O: migraine Active naproxen lesions on lips Active Toradol hives Active Keflex rash Active [...] mL, 6 Refills, Maintenance, 07/24/20 16:44:00 EDT, [facility]/pharmacy #[id number], 182, cm, 05/26/20 16:01:00 EDT, Height, 67, kg, 07/05/20 13:57:00 EDT, Dry Weight Start Date: 07/24/20 Status: Ordered albuterol CFC free 90 mcg/inh inhalation aerosol 2, puffs, Inhalation, Every 6 hours, PRN, j44.9, # 1 each, Refills 6, Tot. Refills 6, Maintenance, 07/24/20 16:44:00 EDT, Aerosol, Route to Pharmacy Electronically, [id number], [facility]/pharmacy #[id number], 182, cm, 05/26/20 16:01:00 E... [...] capsule, Refills 0, Tot. Refills 0, Maintenance, 02/15/22 8:03:00 EDT, Route to Pharmacy Electronically, [facility]/pharmacy #[id number], Partial fill upon patient request if the prescription is for a schedule II o... Start Date: 02/15/22 Stop Date: 02/25/22 Status: Ordered duloxetine 60 mg oral enteric [...] oral capsule 600 mg, Capsule, By Mouth, 02/15/22 9:00:00 EDT Start Date: 02/15/22 Stop Date: 02/15/22 Status: Completed Incruse Ellipta 62.5 mcg/inh inhalation powder 1 each, Inhalation, Every 24 hours, doses should be taken at least 24 hours apart, j44.9, # 1 each,6 Refills, Maintenance, 08/13/20 16:33:00 EDT, Powder, [facility]/pharmacy #[id number], 182, cm, 05/26/20 16:01:00 EDT, [...] 0 Refills, Maintenance, 11/01/21 10:44:00 EST, Gum, [facility]/pharmacy #[id number], Partial fill upon patient request if the prescription is for a schedule II opioid drug., 182.8... Start Date: 11/01/21 Status: Ordered oxyCODONE 10 mg oral tablet 1 tablet = 10 mg, By Mouth, Every 4 hours, PRN as needed for pain, for 5 days, # 30 tablet, 0 Refills, Acute 02/20/22 8:03:00 EDT, 02/15/22 8:03:00 EDT, Tablet, [facility]/pharmacy #[id number], Partial fill upon patient request if the prescription is for a schedul... Start Date: 02/15/22 Stop Date: 02/20/22 Status: Ordered oxyCODONE 5 mg oral tablet 10 mg, Tablet, By Mouth, Every 4 hours, PRN for Pain , Severe, Routine, 02/11/22 12:06:00 EDT Start Date: 02/11/22 Stop Date: 02/15/22 Status: Discontinued Pantoprazole = 40 mg, By [...] 0 Refills, Maintenance, 02/15/22 10:30:00 EDT, Tablet, [facility]/pharmacy #[id number], Partial fill upon patient request if the prescription is for a schedule II opioid drug., 182, cm, 01/27/22 7:59:00 EST, Height,... Start Date: 02/15/22 Stop Date: 03/17/22 Status: Ordered simethicone 80 mg oral tablet, [...] release 25 mg, XL Tablet, By Mouth, 02/15/22 9:00:00 EDT Start Date: 02/15/22 Stop Date: 02/15/22 Status: Completed Toprol XL 25 mg oral tablet, extended release 25, mg, 1, tablet, By Mouth, Daily, 30, tablet, 6, 6, 03/31/07 11:15:26, Print MARTIN Number, [facility], [address] [place] [address], [id number], Constant Indicator Start Date: 03/31/07 Stop Date: 10/27/07 Status: Ordered Tylenol 325 mg oral tablet 650 mg, 2, tablet, By Mouth, Every 4 hours, PRN, # 30 tablet, Refills 0, Tot. Refills 0, Maintenance, Pain , Mild, 11/08/21 12:55:00 EST, Route to Pharmacy Electronically, [facility]/pharmacy #[id number], Partialfill upon patient request if the prescription [...] Exam Date Time Procedure Performing Provider Status 02/10/22 5:40 PM Ankle Min 3 Views Left Yasmeen Delacruz; Auth (Verified) Notes: (Ankle Min 3 Views Left) Reason For Exam: Erythema RESULT: Ankle Min 3 Views Left Ankle Min 3 Views Left Reason: Erythema; Clinical Question(s): Non-healing Fracture COMPARISON: None. FINDINGS: No evidence of acute or healing fracture or bone lesion. There is diffuse osteopenia. Focal sclerosis is seen in the left distal tibia. Intact ankle mortise and talar dome. Mild arthritic changes. Normal soft tissues. IMPRESSION: Diffuse osteopenia. No acute fracture or bone lesion. WSN: [id number] Ordering Physician: Florentino Davis Dictated By: Kt Dejesus MD Dictated Date/Time: 02/10/22 5:47 pm Reviewed By: Kt Dejesus MD Signed By: Kt Dejesus MD Signed Date/Time: 02/10/22 5:47 pm Transcribed By: BERENICE Transcribed Date/Time: 02/10/22 5:45 pm Vital Signs Most recent to oldest [Reference Range]: 1 2 3 Oxygen Saturation [94-100 %] 100 % (02/15/22 7:24 AM) 98 % (02/15/22 5:34 AM) 95 % (02/15/22 12:34 AM) Pulse Rate [55-90 bpm] 87 bpm (02/15/22 9:04 AM) 87 bpm (02/15/22 7:24 AM) 85 bpm (02/15/22 5:34 AM) Blood Pressure [90-138/55-84 mm Hg] 132/95mm Hg (02/15/22 9:04 AM) 132/95mm Hg (02/15/22 7:24 AM) 127/88mm Hg (02/15/22 5:34 AM) Respiratory Rate [16-30 br/min] 18 br/min (02/15/22 9:04 AM) 18 br/min (02/15/22 9:04 AM) 18 br/min (02/15/22 7:24 AM) Temperature [96.8-100.4 DegF] 98.0 DegF (02/15/22 7:24 AM) 97.6 DegF (02/15/22 5:34 AM) 98.3 DegF (02/15/22 12:34 AM) Liters per Minute 3 L/min (02/15/22 7:24 AM) 3 L/min (02/15/22 12:34 AM) 3 L/min (02/14/22 7:30 PM) Mode of Delivery (Oxygen) Nasal cannula (02/15/22 7:24 AM) Room air (02/15/22 5:34 AM) Nasal cannula (02/15/22 12:34 AM) Blood pressure sites Arm, left (02/15/22 7:24 AM) Arm, left (02/15/22 5:34 AM) Arm, right (02/15/22 12:34 AM) Temperature Route Oral (02/15/22 7:24 AM) Oral (02/15/22 5:34 AM) Oral (02/15/22 12:34 AM) Social History Social History Type Response Tobacco Use: 2 cigarettes a day . Sex
--- OUTSIDE RECORDS SUMMARY | 2023-08-15 20:32 | XMS_ITS | Continuity of Care Document ---
Author Name Unknown Organization [facility] ter Address [address] [place] [id number]- Care Team Providers Care Medical Practice Administrator Name Role Phone Jose LEE MD, Jorge Tsang Primary Care Physician Encounter [facility] Date(s): 03/18/23 - 03/19/[address] [address]- Encounter Diagnosis COPD exacerbation(Final) - 03/18/23 Shortness of breath(Final) - 03/18/23 Discharge Disposition: A-D/C Home Attending Physician: Gabe Arroyo MD Admitting Physician: Blair Lynn MD Referring Physician: Not on Staff, Referring MD Allergies, Adverse Reactions, Alerts Substance Reaction Severity Status naproxen lesions on lips Active Toradol Morphine allergy Metaxalone Naproxen Cephalexin allergy hives Persistent Mild Active Keflex 1 rash Active Skelaxin H/O: migraine Active 1tolerates pip/tazo 11/17 Immunizations Given and Recorded Vaccine Date Status Refusal Reason [id number] 12y+ bivalent booster vax 08/23/22 Recorded SARS-CoV-2 [...] tablet 4 mg, Tablet, By Mouth, Every 8 hours for 1 days, PRN for Pain , Moderate, reviewed and seen scriptfilled on 03/02 by erica burt Routine, 03/18/23 18:42:00 EDT, Stop date 03/19/23 18:41:00 EDT Start Date: 03/18/23 Stop Date: 03/19/23 Status: Completed docusate sodium 100 mg oral [...] oral capsule 600 mg, Capsule, By Mouth, 03/19/23 9:00:00 EDT Start Date: 03/19/23 Stop Date: 03/19/23 Status: Completed gabapentin 300 mg oral capsule [...] 9:02:00 EDT, 03/19/23 9:02:00 EDT, Patch, [facility]/pharmacy #[id number], Partial fill upon patient request if the prescription is for a schedule II opioid drug. If not... Start Date: 03/19/23 Stop Date: 04/18/23 Status: Ordered lisinopril 2.5 mg oral tablet TAKE 1 TABLET BY MOUTH EVERY DAY Start Date: 07/02/22 Status: Ordered lisinopril 5 mg oral tablet 2.5 mg, Tablet, By Mouth, 03/19/23 9:00:00 EDT Start Date: 03/19/23 Stop Date: 03/19/23 Status: Completed Melatonin = 10 mg, By Mouth, Daily at bedtime, PRN as needed for sleep, 0 Refills, Maintenance, 10/07/21 17:54:00 EST, Partial fill upon patient request if the prescription is for a schedule II opioid drug. Start Date: 10/07/21 Status: Ordered metoprolol 25 mg oral tablet, extended release 25 mg, XL Tablet, By Mouth, 03/19/23 9:00:00 EDT Start Date: 03/19/23 Stop Date: 03/19/23 Status: Completed Metoprolol Succinate ER 25 mg [...] fractures of ribs Confirmed 01/06/11 Active Old GA (myocardial infarction) X 3 Confirmed Active PVD (peripheral vascular disease) Confirmed Active Underweight Confirmed Active 1Cardiac stents 1991, 1995 Results Radiology Reports * Exam Date Time Procedure Performing Provider Status 03/18/23 3:38 AM Chest Portable Ashlee Schaefer; Luis M (Ve rified) Notes: (Chest Portable) Reason For Exam: Cough RESULT: Chest Portable Chest Portable Hx of Present Illness: EMS reports pt became suddenly short of breath after sleeping. Pt normally wears 3L NC.; Reason: Cough; Clinical Question(s): Pneumonia COMPARISON: Chest radiograph and CT 01/15/2023. FINDINGS: LINES AND TUBES: None. LUNGS AND PLEURA: There are patchy opacities in both lower lobes, left greater than right, similar location as findings on the previous CT. No pleural effusion. No pneumothorax; a linear lucency over the right upper hemithorax beyond which lung markings extendis probably artifactual. HEART, MEDIASTINUM AND MAMADOU: Heart is normal in size. Ectatic appearing aortic contour. BONES AND SOFT TISSUES: No acute abnormality. ORIF of multiple right rib fractures. Old healed left rib fractures. IMPRESSION: Patchy opacities in the lower lungs bilaterally could reflect aspiration pneumonia and/or areas of chronic scarring. WSN: [id number] Ordering Physician: Liz Rocha Dictated By: Dariana Hunter MD Dictated Date/Time: 03/18/23 8:48 am Reviewed By: Dariana Hunter MD Signed By: Dariana Hunter MD Signed Date/Time: 03/18/23 8:48 am Transcribed By: BERENICE Transcribed Date/Time: 03/18/23 8:45 am Vital Signs Most recent to oldest [Reference Range]: 1 2 3 Weight 66.8 kg (03/18/23 11:34 PM) 66.8 kg (03/18/23 11:00 PM) 66.8 kg (03/18/23 7:28 PM) Oxygen Saturation [94-100 %] 100 % (03/19/23 7:41 AM) 96 % (03/18/23 11:34 PM) 96 % (03/18/23 11:00 PM) Pulse Rate [55-90 bpm] 96 bpm *H* (03/19/23 9:15 AM) 96 bpm *H* (03/19/23 7:41 AM) 70 bpm (03/18/23 11:34 PM) Blood Pressure [90-138/55-84 mm Hg] 142/72mm Hg *H* (03/19/23 9:15 AM) 142/72mm Hg *H* (03/19/23 9:15 AM) 142/72mm Hg *H* (03/19/23 7:41 AM) Respiratory Rate [16-30 br/min] 18 br/min (03/19/23 9:14 AM) 17 br/min (03/19/23 7:41 AM) 18 br/min (03/19/23 3:52 AM) Temperature [96.8-100.4 DegF] 98.2 DegF (03/19/23 7:41 AM) 98.8 DegF (03/18/23 11:34 PM) 98.8 DegF (03/18/23 11:00 PM) Liters per Minute 4 L/min (03/19/23 7:41 AM) 4 L/min (03/18/23 11:34 PM) 4 L/min (03/18/23 11:00 PM) Mode of Delivery (Oxygen) Nasal cannula (03/19/23 7:41 AM) Nasal cannula (03/18/23 11:34 PM) Nasal cannula (03/18/23 11:00 PM) Blood pressure sites Arm, right (03/19/23 7:41 AM) Arm, left (03/18/23 11:34 PM) Arm, left (03/18/23 11:00 PM) Temperature Route Oral (03/19/23 7:41 AM) Oral (03/18/23 11:34 PM) Oral (03/18/23 11:00 PM) Dry Weight 66.8 kg (03/18/23 11:34 PM) Weight Obtained Via Bed scale (03/18/23 11:00 PM) Patient/family stated (03/18/23 2:18 AM) Social History Social History Type Response Tobacco Use: 4 or less cigar ettes(less than 1/4 pack)/day in last 30 days. Sex Admission evaluation note * Cinthia AMAYA, Justa Pereira: MODIFY, PERFORM, MODIFY, MODIFY, MODIFY Event Display: Admission Note Authored Date: Patient: ??ANT VARMA ? Age:??67 Years?Sex:??Male?:??1955?? Chief Complaint/Reason for Consultation Hyponatremia History of Present Illness 67-year-old??gentleman with past medical history??of??recent??MRSA bacteremia??status post IV antibiotics??presented to [facility] with increased shortness of breath and wheezing.?? He complains of??right shoulder??pain..?? Patient denies having any fevers??or diarrhea or vomiting.?? Patientsays that he has been having increased shortness of breath??for 1 day??and woke up??with shortness of breath??in the middle of the night.?? He states that he occasionally gets??cough??on and off. ??He has had??history of smoking in the past.?WBC count is only 11.1;??the patient is being admitted? ?to [facility] for further evaluation and treatment. Review of Systems Constitutional: No fever.?? Complains of right shoulder pain HEENT: No visual loss, blurred vision, double vision or yellow sclera. No runny nose or sore throat. Cardiovascular: No chest pain, palpitations or pedal edema. Respiratory: No shortness of breath, cough or sputum production. Gastrointestinal: No nausea, vomiting or diarrhea. No abdominal pain.?? Neurologic: No headache, dizziness, unilateral weakness, numbness or tingling in the extremities. Objective Measurements?? Weight: 66.8 kg (03/18/23) ?? Vital Signs?? Temperature: 98.2 DegF (03/18/23 08:45:00) Temperature Route: Oral (03/18/23 08:45:00) Pulse Rate: 75 bpm (03/18/23 08:45:00) Respiratory Rate: 16 br/min (03/18/23 08:45:00) Vented: No (03/18/23 06:04:00) Systolic Blood Pressure:??141 mm Hg??High (03/18/23 08:45:00) Diastolic Blood Pressure: 75 mm Hg (03/18/23 08:45:00) Mean Arterial Pressure: 82 mm Hg (03/18/23 02:18:00) Pulse Pressure: 55 mm Hg (03/18/23 08:06:00) Oxygen Saturation: 100 % (03/18/23 08:45:00) Liters per Minute: 3 L/min (03/18/23 08:45:00) Mode of Delivery (Oxygen): Nasal cannula (03/18/23 08:06:00) Early Warning Score: 3 (03/18/23 08:46:05) ? Intake/Output? No Data Available ?? Precautions No Precautions documented.? Mobility & Ambulation Level Mobility & Ambulation Level?? No qualifying data available. ? Physical Exam General: Alert Mental Status: Oriented to person, place and time. Head: Normocephalic. Neck: Supple Respiratory: Clear to auscultation and percussion. No wheezing, rales or rhonchi. Cardiovascular: Heart sounds normal. No thrills. Regular rate and rhythm, no murmurs, rubs or gallops. Gastrointestinal: Abdomen soft, non-tender, non-distended. Normal bowel sounds.?? Neurologic:?? No focal neurological deficits. Sen Skin: No rashes or lesions.?? Musculoskeletal: No cyanosis Assessment/Plan Diagnoses COPD exacerbation ??(J44.1) Shortness of breath ??(R06.02) ?? Assessment:??67-year-old gentleman with past medical history of recent MRSA bacteremia status post IV antibiotics presented to [facility] with increased shortness of breath and wheezing. He complains of right shoulder pain.. Patient denies having any fevers or diarrhea or vomiting. Patient says that he has been having increased shortness of breath for 1 day and woke up with shortness of breath in the middle of the night. He states that he occasionally gets cough on and off. He has had history of smoking in the past. WBC count is only 11.1; the patient is being admitted to [facility] for further evaluation and treatment. ? 1.?Right shoulder pain: Patient says that he has been having longstanding??pain of the right shoulder Patient has been on pain medications??as outpatient??but says that??the pain is not improving Patient has been??using??excess opiates??in the past??and hence??there is a??advisory??from the ED??in a??note I have ordered Tylenol,??lidocaine patch, duloxetine, lidocaine patch,??tramadol, gabapentin ? 2.?Hypernatremia: Sodium level is 150 Patient looks dehydrated I have started the patient on IV fluids??D5 with the??Ringer's lactate Will monitor??sodium levels??closely ? 3.?COPD: Patient has??long??history of??smoking Not in exacerbation will c/w oxygen We will monitor closely ? 4.?DVT??prophylaxis:??Subcu heparin Diet:??Regular diet CODE STATUS:??Full code ?? I have discussed the above plan with the patient at bedside who is in agreement. ?? Discharge Planning:? Histories Allergies Allergies ?(Active [...] Metabolic alkalosis Multiple fractures of ribs Old GA (myocardial infarction) X 3 PVD (peripheral vascular [...] Use: Never. Details:??Electronic Cigarette Use: Never. ? Psychosocial History ? Family History Mother: COPD - Chronic obstructive pulmonary disease; Cardiac valve prolapse Father: Stroke Sister (Brinda): Asthma Other (Another sister-): Lupus ? Medications Home Medications Acetaminophen (acetaminophen 325 mg oral tablet)?650?Milligram?2?tablet?By Mouth?Every 4 hours?as needed?as needed for fever Albuterol (Albuterol (Eqv-ProAir HFA) 90 mcg/inh inhalation aerosol)?2?puff(s)?Inhalation?Every 6 hours?as needed?Wheezing/Shortness of Breath Albuterol (albuterol 90 mcg/inh inhalation powder)?2?puff(s)?Inhalation?Every 4 [...] Mouth?Daily?as needed?constipation Duloxetine?60?Milligram?By Mouth?2 times a day Enoxaparin?0.6?Milliliter?60?Milligram?Subcutaneous Injection?Every 12 hours?Stop Once INR>2.0 on COumadin Ferrous Sulfate (ferrous sulfate 325 mg oral enteric coated tablet)?325?Milligram?1?tablet?By Mouth?Daily Gabapentin (gabapentin 300 mg oral capsule)?600?Milligram?2?capsule?By Mouth?3 times a day HydrOXYzine (hydrOXYzine hydrochloride 10 mg oral tablet)?1?tab(s)?10?Milligram?By Mouth?2 times a day?as needed?Anxiety Isosorbide Mononitrate (isosorbide [...] 15 mg oral tablet)?0.5?tab(s)?7.5?Milligram?By Mouth?Daily at bedtime Multivitamin With Minerals (Calcium with Magnesium, Vitamins D and K oral tablet)?See Instructions?1 tablet By Mouth Daily Pantoprazole (pantoprazole 40 mg oral delayed release tablet)?TAKE 1 TABLET BY MOUTH TWICE A DAYFOR 30 DAYS Senna (Senna 8.6 mg oral tablet)?8.6?Milligram?1?tab(s)?By Mouth?Daily at bedtime Thiamine (Vitamin B1 100 mg oral tablet)?100?Milligram?1?tablet?By Mouth?Daily umeclidinium (Incruse Ellipta 62.5 mcg/inh inhalation powder)?1?puff(s)?Inhalation?Every 24 hours Warfarin (warfarin 5 mg oral tablet)?1?tab(s)?5?Milligram?By Mouth?Daily ? Inpatient Medications Medications (30) Active SCHEDULED: (20) Albuterol/Ipratropium Inhalation Marilin 3mL (Duoneb Inhalation Solution) ??1 vials, BAND Nebulizer, 4 times a day Aspirin 81 mg Chew Tablet (aspirin 81 [...] mg, By Mouth, 3 times a day Heparin 5000 units/mL Inj (1 mL) (Heparin Inj) ??5,000 units 1 mL, Subcutaneous Injection, 3 times a day Isosorbide Mononitrate 30 mg ER Tablet (isosorbide mononitrate 30 mg oral tablet, extended release)??30 mg, By Mouth, Daily in AM Lidocaine 5% Topical Patch (Lidocaine 5% Patch) ??1 each, Topically, Daily Lisinopril 5 mg Tablet (lisinopril 5 mg oral tablet) ??2.5 mg, By Mouth, Daily Metoprolol 25 mg XL Tablet (metoprolol 25 mg oral tablet, extended release) ??25 mg, By Mouth, Daily Mirtazapine 15 mg Tablet (mirtazapine 15 mg oral tablet) ??7.5 mg, By Mouth, Daily at bedtime Multivitamin Therapeutic / Minerals Tablet (Multivit Therapeutic/Minerals Tablet) ??1 tablet, By Mouth, Daily NaCl 0.9% Flush 3ml (NaCL 0.9% Flush) ??3 mL, IV Push, Every 8 hours Pantoprazole 40 mg EC Tablet (pantoprazole 40 mg oral delayed release tablet) ??40 mg, By Mouth, 2 times a day Remove Patch (Remove Lidocaine Patch) ??1 each, Topically, Daily at bedtime Senna Tablet (Senna 8.6 mg oral tablet) ??8.6 mg 1 tablet, By Mouth, Daily at bedtime Thiamine 100 mg Tablet (Vitamin B1 100 mg oral tablet) ??100 mg, By Mouth, Daily CONTINUOUS: (1) D5%LR (1000 mL) Cont IV 1,000 mL (D5%/LR 1,000 mL) ??1,000 mL, IV Infusion, 125 mL/hr PRN: (9) Acetaminophen 325 mg Tablet (acetaminophen 325 mg oral tablet) ??650 mg, By Mouth, Every 4 hours Albuterol 90mcg/Inhalation Inhaler HFA (albuterol CFC free 90 mcg/inh inhalation aerosol) ??180 mcg2 puffs, Inhalation, Every 4 hours Albuterol/Ipratropium Inhalation Marilin 3mL (Duoneb Inhalation Solution) ??1 vials, BAND Nebulizer, Every 4 hours Bisacodyl 10 mg Suppository (Dulcolax Supp) ??10 mg 1 supp, Rectally, Daily Docusate Sodium 100 mg Capsule (docusate sodium 100 mg oral capsule) ??100 mg 1 capsule, By Mouth, Daily HydrOXYzine HCL 10mg Tablet (hydrOXYzine hydrochloride 10 mg oral tablet) ??10 mg, By Mouth, 2 times a day Melatonin 3 mg Tablet (Melatonin Tablet) ??9 mg, By Mouth, Daily at bedtime NaCl 0.9% Flush 3ml (NaCL 0.9% Flush) ??3 mL, IV Push, Every 8 hours TraMADOL 50 mg Tablet (traMADol 50 mg oral tablet) ??50 mg, By Mouth, Every 4 hours ? Results Recent Labs BLOOD COUNT & DIFF WBC 11.1 k/mm3 (High)?? 03/18/2023 02:47 RBC 3.53 m/mm3 (Low)?? 03/18/2023 02:47 Hgb 9.1 Gm/dL (Low)?? 03/18/2023 02:47 Hct 31.1 % (Low)?? 03/18/2023 02:47 MCV 88.1 femtoliters ()?? 03/18/2023 02:47 MCH 25.8 pg (Low)?? 03/18/2023 02:47 MCHC 29.3 g/dL (Low)?? 03/18/2023 02:47 Platelet Count 377 k/mm3 ()?? 03/18/2023 02:47 RDW-SD 55.2 femtoliters (High)?? 03/18/2023 02:47 MPV 9.3 femtoliters (Low)?? 03/18/2023 02:47 Nucleated RBC (Automated) 0.0 #/100 WBC'S ()?? 03/18/2023 02:47 Abs. NRBC 0.0 k/mm3 ()?? 03/18/2023 02:47 Abs. Neut 8.9 k/mm3 (High)?? 03/18/2023 02:47 Abs. Lymph 1.1 k/mm3 ()?? 03/18/2023 02:47 Abs. [place] 1.1 k/mm3 ()?? 03/18/2023 02:47 Abs. Eo 0.0 k/mm3 ()?? 03/18/2023 02:47 Abs. Baso 0.0 k/mm3 ()?? 03/18/2023 02:47 Neut % 79.8 % (High)?? 03/18/2023 02:47 Lymph % 9.5 % (Low)?? 03/18/2023 02:47 [place] % 9.5 % ()?? 03/18/2023 02:47 Eos % 0.4 % ()?? 03/18/2023 02:47 Baso % 0.2 % ()?? 03/18/2023 02:47 Imm Gran 0.6 % ()?? 03/18/2023 02:47 Abs. Imm Gran 0.1 k/mm3 ()?? 03/18/2023 02:47 ?? CARDIAC Nt-Probnp 395 pg/mL (High)?? 03/18/2023 02:49 High Sensitivity Troponin (HSTnT) 31 ng/L (High)?? 03/18/2023 05:25 ?? CHEM GENERAL Sodium 150 mmol/L (High)?? 03/18/2023 02:49 Potassium 4.4 mmol/L ()?? 03/18/2023 02:49 Chloride 105 mmol/L ()?? 03/18/2023 02:49 Bicarbonate Level 34 mmol/L (High)?? 03/18/2023 02:49 Anion Gap 11 ()?? 03/18/2023 02:49 Glucose Level 115 mg/dL (High)?? 03/18/2023 02:49 BUN 22 mg/dL ()?? 03/18/2023 02:49 Creatinine-Blood 0.8 mg/dL ()?? 03/18/2023 02:49 Estimated GFR Creatinine 99 ML/MIN/1.73 M2 ()?? 03/18/2023 02:49 Calcium 9.2 mg/dL ()?? 03/18/2023 02:49 ?? HEME OTHER Hold Blue Top SPECIMEN DISCARDED AFTER 4 HOURS. ()?? 03/18/2023 02:47 ?? VIROLOGY Influenza A PCR NEGATIVE ()?? 03/18/2023 06:15 Influenza B PCR NEGATIVE ()?? 03/18/2023 06:15 RSV PCR NEGATIVE ()?? 03/18/2023 06:15 COVID-19 PCR Specimen Source NASAL ()?? 03/18/2023 06:15 COVID-19 PCR Result NEGATIVE ()?? 03/18/2023 06:15 ? Hospital Progress note * Azra Cisneros RN: PERFORM, SIGN, VERIFY Event Display: Progress Note Hospital Authored Date: [id number] Patient: ANT VARMA Age: 67 years Sex: Male : 1955 Associated Diagnoses: None Author: Azra Cisneros RN Findings Nursing Data Cardiac Data. : Cardiac Data. 03/19/2023 9:27 EDT Nail Bed Color, Fingers [place] Nail Bed Color, Toes [place] Skin Temperature Upper Extremities Warm Skin Temperature Lower Extremities Warm Heart Sounds S1, S2 Heart Rhythm Regular Pacemaker No Capillary Refill < 3 seconds Dorsalis Pedis Pulse, Left Normal Dorsalis Pedis Pulse, Right Normal application spec No Cardiovascular WNL except . Gastrointestinal Data. : Gastrointestinal Data. 03/19/2023 9:27 EDT Abdomen Soft, Non-tender, Round Bowel Sounds LUQ Present Bowel Sounds RUQ Present Bowel Sounds LLQ Present Bowel Sounds RLQ Present Last Bowel Movement 03/18/2023 GI WNL except . Genitourinary Data. : Genitourinary Data. 03/19/2023 9:27 EDT WNL . Integumentary Data. : Integumentary Data. 03/19/2023 9:27 EDT Sensory Perception Slightly limited Activity Chairfast Mobility Slightly limited Integumentary WNL . Musculoskeletal Data. : Musculoskeletal Data. 03/19/2023 9:27 EDT Musculoskeletal WNL except . Neurological Data. : Neurological Data. 03/19/2023 9:27 EDT Neurological Symptoms Weakness or loss of muscle strength Level of Consciousness Full Consciousness Orientated to person, place, time Person, Place, Time, Event Gait Unable to assess 1 - 10 Pain Scale Score 9 Neuro WNL except . Respiratory/Pulmonary Data. 03/19/2023 9:27 EDT Respiratory Symptoms None Respiratory effort Unlabored Chest expansion Symmetrical Accessory Muscles use No Respiratory pattern Regular Left Upper Lobe Breath Sounds Diminished Right Upper Lobe Breath Sounds Diminished Right Middle Lobe Breath Sounds Diminished Left Lower Lobe Breath Sounds Diminished Right Lower Lobe Breath Sounds Diminished Respiratory distress None Respiratory WNL except . Vital Signs : VITAL SIGNS SECTION 03/19/2023 7:41 EDT Temperature 98.2 DegF Temperature Route Oral Pulse Rate 96 bpm H Respiratory Rate 17 br/min Systolic Blood Pressure 142 mm Hg H Diastolic Blood Pressure 72 mm Hg Blood pressure sites Arm, right Mean Arterial Pressure 95 mm Hg Pulse Pressure 70 mm Hg Oxygen Saturation 100 % Liters per Minute 4 L/min Mode of Delivery (Oxygen) Nasal cannula . Narrative/Incidental Patient alert and oriented x3. VSS. Continues on baseline 2-3L via N/C and states shortness of breath has improved. LS are diminished and respirations are even and unlabored. +PP and no edema noted. Patient complains of chronic pain in right shoulder, legs and lower back. Medicated with Hydromorphone by night RN with good effect. Lidocaine patch applied to right shoulder. Voiding in urinal without difficulty. BSx4 abdomen SNT last BM 03/18. Patient seen by MD Partida and medically cleared for discharge. Discharge instructions reviewed with patient and IV removed with catheter tip intact. Patients son to bring in wheel chair and oxygen tank. All belongings accounted for. . Note * Azra Cisneros RN: PERFORM Event Display: Discharge/Transfer Note Hospital Authored Date: [id number] Nursing Discharge Note Entered On: 03/19/2023 9:55 EDT Performed On: 03/19/2023 9:55 EDT by Azra Cisneros RN Nursing Discharge Note 2 Discharge Time : 03/19/2023 9:55 EDT Discharge Level of Care at Discharge : Home/Retirement/Foster Care Patient Left Unit Via : Wheelchair Patient Accompanied Off Unit with : Responsible adult DC Instructions Provided & Signed by Pt : Yes Patient Understands D/C Instructions : Yes Patient Instructions Discharge Signed : Yes Did Pt have Specialty Bed or Wound Vac : No Azra Cisneros RN - 03/19/2023 9:55 EDT * Gabe Arroyo MD: PERFORM Event Display: Discharge/Transfer Note Hospital Authored Date: [id number] Patient: ??KOJO, ANT ? Age:??67 Years?Sex:??Male?:??1955?? Patient Information [facility] Primary Care Physician: Jorge Garcia III, MD Admit Date/Time: 03/18/23 01:41 Discharge Disposition Discharge Disposition: Home: No Services Discharge Diagnosis Hyponatremia (E87.1) COPD (chronic obstructive pulmonary disease) Chronic low back pain GERD (gastroesophageal reflux disease) HTN (hypertension) Hyperlipidemia PVD (peripheral vascular disease) Anxiety CAD - Coronary artery disease _ Discharge Medications Acetaminophen (acetaminophen 325 mg [...] oral tablet, extended release)?30?Milligram?1?tablet?By Mouth?Daily in AM Lidocaine Topical (lidocaine 5% topical film)?1 patch?Topically?Daily?as needed?Pain, Mild?for 30?Days Lisinopril (lisinopril 2.5 mg oral tablet)?TAKE 1 [...] hours ? Quality Measures Tobacco Use Treatment:? Medications Started Lidocaine patch Medications Discontinued none Doses Changed none Allergies Allergies ?(Active and Proposed Allergies Only) naproxen? (Severity: Unknown severity, Onset: Unknown) ?Reactions: lesions on lips Toradol? (Severity: Persistent Mild, Onset: Unknown) ?Reactions: hives, Cephalexin allergy, Naproxen, Metaxalone, Morphine allergy Keflex? (Severity: Unknown severity, Onset: Unknown) ?Reactions: rash ?Comments: tolerates pip/tazo 11/17 Skelaxin? (Severity: Unknown severity, Onset: Unknown) ?Reactions: H/O: migraine ? Hospital Course 67-year-old gentleman with past medical history of recent MRSA bacteremia status post IV antibiotics presented to [facility] with increased shortness of breath and wheezing. He complains of right shoulder pain.. Patient denies having any fevers or diarrhea or vomiting. Patient says that he has been having increased shortness of breath for 1 day and woke up with shortness of breath in the middle of the night. He states that he occasionally gets cough on and off. He has had history of smoking in the past. WBC count is only 11.1; the patient is being admitted to [facility] for further evaluation and treatment. ?? 1. COPD with chronic hypoxic respiratory failure:??patient presented with??dyspnea; however with nosignificant clinical picture for COPD exacerbation.??He was given Solumedrol by ED. No fevers, no worsening of chronic oxygen requirement.?Patient has long history of smoking He as prescribed recently with Prednisone 15 mg daily for Embedder as??outpatient, will continue. ?? 2. Right shoulder pain: secondary to rotator cuff injury; he described that happened months ago.??He was started on lidocaine patch with mild improvement. Continue with??home??medications for pain and follow up with PCP. ?? 3.??Hypernatremia: he was found with??Sodium level??at 150, likely from??dehydration. He was started??on IV fluids with??resolution. Encouraged for fluid intake ?? Other chronic medical conditions were stable during hospital course, no changes to outpatient meds. ?? Patient was stable for discharge home. ? Objective Assessment and Plan Discharge Planning:? Vital Signs?? Temperature: 98.2 DegF (03/19/23 07:41:00) Temperature Route: Oral (03/19/23 07:41:00) Pulse Rate:??96 bpm??High (03/19/23 07:41:00) Respiratory Rate: 17 br/min (03/19/23 07:41:00) Systolic Blood Pressure:??142 mm Hg??High (03/19/23 07:41:00) Diastolic Blood Pressure: 72 mm Hg (03/19/23 07:41:00) Blood pressure sites: Arm, right (03/19/23 07:41:00) Mean Arterial Pressure: 95 mm Hg (03/19/23 07:41:00) Pulse Pressure: 70 mm Hg (03/19/23 07:41:00) Oxygen Saturation: 100 % (03/19/23 07:41:00) Liters per Minute: 4 L/min (03/19/23 07:41:00) Mode of Delivery (Oxygen): Nasal cannula (03/19/23 07:41:00) Early Warning Score: 0 (03/19/23 07:42:50) ? . Physical Exam Constitutional: Alert, in no acute distress. Mental Status: Oriented to person, place and time. Head: Normocephalic. Respiratory: faint expiratory wheezing bilaterally. No rales or rhonchi. Cardiovascular: S1 S2 regular. No murmurs, rubs or gallops. Regular rate and rhythm Gastrointestinal: Abdomen soft, non-tender, non-distended. Normal bowel sounds. Neurologic:??Moves all extremities spontaneously. Skin: No rashes or lesions. No jaundice Musculoskeletal: No cyanosis or clubbing. No gross deformities. No pitting edema on Right or Left LE Pending Results Electrolytes ordered on 03/18/2023 Follow-Up Appointments Added Follow Up ?Time Frame ?Comments Jorge Garcia?2 to 5 weeks Post Discharge Care Code Status: ?? Full Resuscitation Discharge ?03/19/23 8:59:00 EDT Discharge Prescriptions ?ePrescribed, ??03/19/23 8:59:00 EDT Results Discharge Labs BLOOD COUNT & DIFF WBC 11.5 k/mm3 (High)?? 03/19/2023 01:50 RBC 3.02 m/mm3 (Low)?? 03/19/2023 01:50 Hgb 7.8 Gm/dL (Low)?? 03/19/2023 01:50 Hct 26.1 % (Low)?? 03/19/2023 01:50 MCV 86.4 femtoliters ()?? 03/19/2023 01:50 MCH 25.8 pg (Low)?? 03/19/2023 01:50 MCHC 29.9 g/dL (Low)?? 03/19/2023 01:50 Platelet Count 365 k/mm3 ()?? 03/19/2023 01:50 RDW-SD 52.8 femtoliters (High)?? 03/19/2023 01:50 MPV 9.4 femtoliters ()?? 03/19/2023 01:50 Nucleated RBC (Automated) 0.0 #/100 WBC'S ()?? 03/19/2023 01:50 Abs. NRBC 0.0 k/mm3 ()?? 03/19/2023 01:50 Abs. Neut 10.1 k/mm3 (High)?? 03/19/2023 01:50 Abs. Lymph 0.5 k/mm3 (Low)?? 03/19/2023 01:50 Abs. [place] 0.8 k/mm3 ()?? 03/19/2023 01:50 Abs. Eo 0.0 k/mm3 ()?? 03/19/2023 01:50 Abs. Baso 0.0 k/mm3 ()?? 03/19/2023 01:50 Neut % 87.9 % (High)?? 03/19/2023 01:50 Lymph % 4.4 % (Low)?? 03/19/2023 01:50 [place] % 7.0 % ()?? 03/19/2023 01:50 Eos % 0.0 % ()?? 03/19/2023 01:50 Baso % 0.1 % ()?? 03/19/2023 01:50 Imm Gran 0.6 % ()?? 03/19/2023 01:50 Abs. Imm Gran 0.1 k/mm3 ()?? 03/19/2023 01:50 ?? CARDIAC Nt-Probnp 395 pg/mL (High)?? 03/18/2023 02:49 High Sensitivity Troponin (HSTnT) 31 ng/L (High)?? 03/18/2023 05:25 ?? CHEM GENERAL Sodium 138 mmol/L ()?? 03/19/2023 01:50 Potassium 4.3 mmol/L ()?? 03/19/2023 01:50 Chloride 96 mmol/L (Low)?? 03/19/2023 01:50 Bicarbonate Level 33 mmol/L (High)?? 03/19/2023 01:50 Anion Gap 9 ()?? 03/19/2023 01:50 Glucose Level 115 mg/dL (High)?? 03/18/2023 02:49 BUN 21 mg/dL ()?? 03/19/2023 01:50 Creatinine-Blood 0.6 mg/dL (Low)?? 03/19/2023 01:50 Estimated GFR Creatinine 105 ML/MIN/1.73 M2 ()?? 03/19/2023 01:50 Calcium 9.2 mg/dL ()?? 03/18/2023 02:49 ?? COAG INR 1.0 ()?? 03/18/2023 12:05 Protime (PT) 10.2 seconds ()?? 03/18/2023 12:05 ?? HEME OTHER Hold Blue Top SPECIMEN DISCARDED AFTER 4 HOURS. ()?? 03/18/2023 02:47 ? MISC. CHEMISTRY Hold Gel Top SPECIMEN DISCARDED AFTER 1 WEEK ()?? 03/19/2023 01:50 ? VIROLOGY Influenza A PCR NEGATIVE ()?? 03/18/2023 06:15 Influenza B PCR NEGATIVE ()?? 03/18/2023 06:15 RSV PCR NEGATIVE ()?? 03/18/2023 06:15 COVID-19 PCR Specimen Source NASAL ()?? 03/18/2023 06:15 COVID-19 PCR Result NEGATIVE ()?? 03/18/2023 06:15 ? Imaging(s) ?Chest Portable ?? 03/18/2023 03:38??by Dariana Hunter MD ? IMPRESSION: ?? Patchy opacities in the lower lungs bilaterally could reflect aspiration pneumonia and/or areas of chronic scarring. ? 25??minutes spent on discharge * Azra Cisneros RN: PERFORM Event Display: Patient Education/Instruction Authored Date: [id number] Inpatient Adult Discharge Instructions [address] [address] Name: ANT VARMA : 1955 Visit: 03/18/2023 01:41:00 Current Date: 03/19/2023 09:22 Account: [id number] Inpatient Adult Discharge Instructions We would like [...] and their families. Surveys are administered by [employer] ?? If further treatment with your primary care physician or another doctor is recommended, it is important for you to keep the appointment. Call your primary care physician or return to the Emergency Department immediately if your condition worsens, fails to improve, or new symptoms develop. If you need to find a doctor, you can call [facility] for a referral at [phone] or toll free at [phone] or log in to [email or web address].. ?? You can view and manage your care through the patient portal or by using a health care lore of your choosing. [employer] is a website that allows you to securely view your medical information including your hospital discharge summary, office visit summaries, medications and follow-up visits. You can also request appointments, renew medications, and request access to your medical information using a health care lore of your choosing, or just ask a question. You can enroll at [email or web address] or register during your next office visit. You have been discharged from [facility], Patient Care Unit: D6A. If you have any questions regarding these instructions after you leave, please call us and we will be happy to assist you. [facility] Your Care Team Attending Physician Jaquan Springer MD, Gabe Discharging Providers Jaquan Springer MD, Gabe Reason for Your Visit General medical Your Diagnosis COPD exacerbation General medical Hyponatremia Shortness of breath Tests Performed Below is a partial list of the tests performed during your hospitalization. You may have had other tests and procedures not included in this list. Please discuss all test results with your provider. Basic Metabolic Panel BNP BUN CBC w/ Differential COVID-19, RSV, and Flu A/B, Rapid PCR Creatinine Electrolytes Hold Blue Top Tube HOLD GEL TUBE INR Troponin T, High Sensitivity CXR Portable Primary Care Provider Jorge Garcia III, MD Advance Directive . Discharge Vitals Temperature: 98.2 DegF Weight: 66.8 kg Pulse Rate:??96 bpm??High ?? Respiratory Rate: 18 br/min ?? Systolic Blood Pressure:??142 mm Hg??High ?? Systolic Blood Pressure:??142 mm Hg??High ?? Diastolic Blood Pressure: 72 mm Hg ?? Diastolic Blood Pressure: 72 mm Hg ?? Oxygen Saturation: 100 % ?? Studies Pending All tests and labs ordered during this hospital stay have been completed unless listed below. Please discuss all pending results with your provider listed above in these instructions. ?? Electrolytes Sodium Level What to do next Instructions From Your Doctor Discharge Orders Code Status:?? Full Resuscitation You Need to Schedule the Following Appointments Follow Up with??Jorge Garcia When??Within 2 to 5 weeks Where: [address] [place] [phone] (1) Discharge Medications ANT VARMA :1955 Visit Date:03/18/2023 Medications: Please continue your medications until treatment is completed or stopped by your provider. Medications not listed below should be discontinued. Discuss any questions related to medications with your provider. What How Much When Instructions Next Dose New Lidocaine Topical (lidocaine 5% topical film) 1 patch Topically Daily as needed for Pain , Mild Duration: 30 Days Pickup at [facility]/pharmacy #[id number] Tomorrow 03/20 at 9 AM Changed Albuterol (albuterol 90 mcg/ inh inhalation powder) 2 puff(s) Inhalation Every 4 hours as needed for as needed Every four hours as needed Changed HydrOXYzine (hydrOXYzine hydrochloride 10 mg oral tablet) 1 tab(s) Oral 3 times a day as needed for Anxiety Today 03/19 at 3 PM Changed Pantoprazole (pantoprazole 40 mg oral delayed release tablet) 1 tab(s) Oral Daily Tomorrow 03/20 at 9 AM Unchanged Acetaminophen (acetaminophen 325 mg oral tablet) 2 tab(s) Oral Every 4 hours as needed for as needed for fever Every four hours as needed Unchanged Aspirin (aspirin 81 mg oral capsule) 1 capsule Oral Daily Tomorrow 03/20 at 9 AM Unchanged Atorvastatin (atorvastatin 80 mg oral tablet) 1 tab(s) Oral Daily Tomorrow 03/20 at 9 AM Unchanged Bisacodyl (bisacodyl 10 mg rectal suppository) 1 suppository(ies) Per rectum Daily as needed for for constipation Resume daily as needed Unchanged Budesonide-Formoterol (Symbicort 160mcg/ 4.5mcg Inhaler) INHALE 2 PUFFS INTO THE LUNGS TWICE A DAY ?? Today 03/19 at 9 PM Unchanged Collagenase Topical (Santyl 250 u/ gm ointment) 1 lore Topically Daily left lateral leg ulcer ?? Tomorrow 03/20 at 9 AM Unchanged Dicyclomine (dicyclomine 10 mg oral capsule) 1 capsule Oral 4 times a day Today 03/20 at 1 PM Unchanged Docusate (docusate sodium 100 mg oral capsule) 1 capsule Oral Daily as needed for constipation Resume daily as needed Unchanged Duloxetine 60 Milligram Oral Twice a day Today 03/19 at 9 PM Unchanged Gabapentin (gabapentin 300 mg oral capsule) 2 capsule Oral 3 times a day Today 03/19 at 3 PM Unchanged Isosorbide Mononitrate (isosorbide mononitrate 30 mg oral tablet, extended release) 1 tab(s) Oral Daily in the morning Tomorrow 03/20 at 9 AM Unchanged Lisinopril (lisinopril 2.5 mg oral tablet) TAKE 1 TABLET BY MOUTH EVERY DAY ?? Tomorrow 03/20 at 9 AM Unchanged Melatonin 10 Milligram Oral Daily at Bedtime as needed for as needed for sleep Tonight 03/19 as needed Unchanged Metoprolol (Metoprolol Succinate ER 25 mg oral tablet, extended release) 1 tab(s) Oral Daily Tomorrow 03/20 at 9 AM Unchanged Midodrine (midodrine 5 mg oral tablet) 2 tab(s) Oral 3 times a day Hold for SBP>110 ?? Resume Unchanged Mirtazapine (mirtazapine 15 mg oral tablet) 0.5 tab(s) Oral Daily at Bedtime Tonight 03/19 at 9 PM Unchanged PredniSONE (predniSONE 5 mg oral tablet) 3 tab(s) Oral Daily Tomorrow 03/20 at 9 AM Unchanged Senna (Senna 8.6 mg oral tablet) 1 tab(s) Oral Daily at Bedtime Tonight 03/19 at 9 PM Unchanged Thiamine (Vitamin B1 100 mg oral tablet) 1 tab(s) Oral Daily Tomorrow 03/20 at 9 AM Unchanged umeclidinium (Incruse Ellipta 62.5 mcg/ inh inhalation powder) 1 puff(s) Inhalation Every 24 hours Tomorrow 03/20 at 9 AM Pharmacy Information [facility]/pharmacy #[id number]: [address], [place] [phone] ?? What How Much When Comments Stop Taking apixaban (Eliquis 5 mg oral tablet) 1 tab(s) Oral Twice a day Stop Taking Warfarin (warfarin 5 mg oral tablet) 1 tab(s) Oral Daily Test Results Below is a partial list of the most recent Laboratory test results done prior to this discharge. You may have had other tests and procedures not included in this list. Please discuss all test resultswith your provider. Basic Metabolic Panel (03/18/2023) ???Sodium - 150 mmol/L???Potassium - 4.4 mmol/L???Chloride - 105 mmol/L???Bicarbonate Level - 34 mmol/L???Anion Gap - 11???Glucose Level - 115 mg/dL???BUN - 22 mg/dL???Creatinine-Blood - 0.8 mg/dL???Estimated GFR Creatinine - 99 ML/MIN/1.73 M2???Calcium - 9.2 mg/dL BNP (03/18/2023) ???Nt-Probnp - 395 pg/mL BUN (03/19/2023) ???BUN - 21 mg/dL CBC w/ Differential (03/19/2023) ???WBC - 11.5 k/mm3???RBC - 3.02 m/mm3???Hgb - 7.8 Gm/dL???Hct - 26.1 %???MCV - 86.4 femtoliters???MCH - 25.8 pg???MCHC - 29.9 g/dL???Platelet Count - 365 k/mm3???RDW-SD - 52.8 femtoliters???MPV - 9.4 femtoliters???Nucleated RBC (Automated) - 0.0 #/100 WBC'S???Abs. NRBC - 0.0 k/mm3???Abs. Neut - 10.1 k/mm3???Abs. Lymph - 0.5 k/mm3???Abs. [place] - 0.8 k/mm3???Abs. Eo - 0.0 k/mm3???Abs. Baso - 0.0 k/mm3???Neut % - 87.9 %???Lymph % - 4.4 %???[place] % - 7.0 %???Eos % - 0.0 %???Baso % - 0.1 %???Imm Gran- 0.6 %???Abs. Imm Gran - 0.1 k/mm3 COVID-19, RSV, and Flu A/B, Rapid PCR (03/18/2023) ???Influenza A PCR - NEGATIVE???Influenza B PCR - NEGATIVE???RSV PCR - NEGATIVE???COVID-19 PCR Specimen Source - NASAL???COVID-19 PCR Result - NEGATIVE Creatinine (03/19/2023) ???Creatinine-Blood - 0.6 mg/dL???Estimated GFR Creatinine - 105 ML/MIN/1.73 M2 Electrolytes (03/19/2023) ???Sodium - 138 mmol/L???Potassium - 4.3 mmol/L???Chloride - 96 mmol/L???Bicarbonate Level - 33 mmol/L???Anion Gap - 9 Hold Blue Top Tube (03/18/2023) ???Hold Blue Top - SPECIMEN DISCARDED AFTER 4 HOURS. HOLD GEL TUBE (03/19/2023) ???Hold Gel Top - SPECIMEN DISCARDED AFTER 1 WEEK INR (03/18/2023) ???INR - 1.0???Protime (PT) - 10.2 seconds Troponin T, High Sensitivity (03/18/2023) ???High Sensitivity Troponin (HSTnT) - 31 ng/L Allergies (NKA means No Known Allergies) [...] Metabolic alkalosis?? Multiple fractures of ribs?? Old GA (myocardial infarction) X 3?? old Rib fractures, right 3-8?? PVD (peripheral vascular disease)?? Smoking greater than 40 pack years?? Underweight?? Education Materials Below is the list of Educational Leaflet Providered with your Discharge Instructions. Chronic Lung Disease: Preventing Lung Infections?? Chronic Lung Disease: Tips for Safe Exercise?? Valuables and Belongings I fully understand and agree that [facility] accepts no responsibility for all my personal [...] ?? Date for Pt to Sign Valuables/Belongings: 03/18/23 23:36:00 ?? Other Discharge Information ? Pulmonary Rehab Status?? Pulmonary Rehab Discharge [...] are strongly encouraged to quit. Please call [facility] [facility] at [phone] or [phone] ([phone]) or log in to [email or web address] for referrals to smoking cessation programs. ?? 989 Suicide & Crisis Lifeline is available 20/06 if you or someone you know needs to find a reason to keep living. By calling 077 you'll be connected to a skilled, trained counselor at a crisis center in your area. INPATIENT DISCHARGE INSTRUCTIONS SIGNATURE PAGE KOJOLAMARANT Location:[facility] Registration Date and Time:03/18/2023 01:41 EDT Primary Care Physician: Jose LEE MD, Jorge Tsang, ANT MCCONNELL, have received the above patient education materials/instructions and have verbalized understanding. If ambulance or transport services are being used I further acknowledge being given a choice of service. ?? If you need to contact me, please call me at this number: . Patient/Router Operator Radial Name: Patient/Router Operator Radial Signature: Relationship to Patient: Witness Name/Signature: Date: * Gabe Arroyo MD: PERFORM, SIGN, VERIFY Event Display: Patient Education Handout Authored Date: [id number] * Azra Cisneros RN: PERFORM Event Display: Patient Education Leaflets Authored Date: [id number] Chronic Lung Disease: Preventing Lung Infections ?? 29577 Chronic Lung Disease: Preventing Lung Infections There [...] nose. If you can???t wash, use hand senior systems developer that has at least 60% alcohol. Use [...] from other people's smoke. This is called secondhand smoke. It is also harmful and increases your chance of infections. ??? Wear a mask. Wearing a mask indoors can help prevent respiratory illnesses. Consider wearing a mask during cold and flu season if you are in crowded places. ?? Last Reviewed Date: 2022 ?? [id number] [employer]. All rights reserved. This information is not intended as a substitute for professional medical care. Always follow your healthcare professional's instructions. ?? * Azra Cisneros RN: PERFORM Event Display: Patient Education Leaflets Authored Date: [id number] Chronic Lung Disease: Tips for Safe Exercise ?? 47366 Chronic Lung Disease: Tips for Safe Exercise After you have met with your healthcare provider and set up an exercise plan, use these tips for better exercise. You can use them at your pulmonary facility or at home.?? Get ready for your workout Here's how to get ready: ??? Plan your workout for the time of day when you normally have the most energy. ??? Dress for comfort. Wear shoes that support your feet. ??? Use a bronchodilator if one has been prescribed. For best results, use it 20 to 30 minutes before exercise or any other strenuous a ctivity. ??? Clear your lungs of mucus if needed. ??? Use oxygen if it???s prescribed for use during activity. Increase the flow rate only if your healthcare provider has told you to. Raising it on your own can be unsafe. ??? Check the weather before you start. On warm or humid days, reduce your workout and rest more often. Also drink extra fluids. Exercise earlier in the day, before it gets hot.If it???s cold outside or if air quality is poor, exercise indoors. Walk inside your home or in a mall. ? My starting goal is minutes of exercise, days a week. ?? Warm up and cool down Here's what you can do before and after exercising:? To warm up, start with a few stretches. This gets your muscles ready for exercise. ??? After your stretches, move on to heavier activity. Pace yourself. Remember to breathe. ??? Toward the end of your workout, decrease your effort so your body can cool down. Then stretch again. This relaxes your muscles. It helps prevent soreness, too. ???Rest and relax. ?? Stay safe during exercise Tips for safe exercise:? Follow the guidelines your healthcare provider or pulmonary rehab team has set for you. ??? Pace yourself. Stop and rest when you need to. ??? Drink plenty of water before, during, and after exercise. ??? Remember that shortness of breath is OK, as long as you can talkand are in control of your breathing. Everyone gets short of breath during exercise???even people without chronic lung disease. But if you can???t speak, you???re pushing yourself too hard. If you have increased shortness of breath, slow down. If it continues, stop and rest. ??? Use pursed-lip breathing to control shortness of breath. ??? Keep your rescue inhaler with??you.??Use it if you need to. ?? Watch for signs of overexertion Stop exercising right away and call your healthcare provider if you feel any of these: ??? Abnormalor increasing shortness of breath ??? Chest pain or discomfort (burning, tightness, heaviness, or pressure) ??? Aching in your arms, shoulder, neck, jaw, or back that is typical for you ??? A slightly racing or skipping heartbeat ??? Feeling much more tired than usual ??? Feeling slight lightheadedness, dizziness, confusion, or nausea ??? Abnormal joint pain ?? Call 911 Call 911 if you have any of these: ??? Abnormal, severe, or quickly worsening shortness of breath ??? Unusual or severe chest pain or discomfort (burning, tightness, heaviness, or pressure) ??? Abnormal aching in your shoulders, arm, neck, jaw, or back ??? Feeling very lightheaded or dizzy ??? A very fast or skipping heartbeat ??? Not able to talk ?? Last Reviewed Date: 2021 ?? [id number] [employer]. All rights reserved. This information is not intended as a substitute for professional medical care. Always follow your healthcare professional's instructions. ?? Portable XR Chest Views * [employer] , CIS S: TRANSCRIBE Dariana Hunter MD: VERIFY Event Display: Result: Authored Date: [id number] Chest Portable Hx of Present Illness: EMS reports pt became suddenly short of breath after sleeping. Pt normally wears 3L NC.; Reason: Cough; Clinical Question(s): Pneumonia COMPARISON: Chest radiograph and CT 01/15/2023. FINDINGS: LINES AND TUBES: None. LUNGS AND PLEURA: There are patchy opacities in both lower lobes, left greater than right, similar location as findings on the previous CT. No pleural effusion. No pneumothorax; a linear lucency over the right upper hemithorax beyond which lung markings extendis probably artifactual. HEART, MEDIASTINUM AND MAMADOU: Heart is normal in size. Ectatic appearing aortic contour. BONES AND SOFT TISSUES: No acute abnormality. ORIF of multiple right rib fractures. Old healed left rib fractures. IMPRESSION: Patchy opacities in the lower lungs bilaterally could reflect aspiration pneumonia and/or areas of chronic scarring. WSN: [id number] Ordering Physician: Liz Rocha Dictated By: Dariana Hunter MD Dictated Date/Time: 03/18/23 8:48 am Reviewed By: Dariana Hunter MD Signed By: Dariana Hunter MD Signed Date/Time: 03/18/23 8:48 am Transcribed By: BERENICE Transcribed Date/Time: 03/18/23 8:45 am Patient Care team information Care Team Personnel Name: Glo Camarena RN Position: [facility] RN Member Role: Primary Care Nurse Name: Fatimah Bennett RN Position: [facility] RN Member Role: Primary Care Nurse Name: Mariely Hardy RN Position: [facility] RN Member Role: Primary Care Nurse Name: Marleen Uriarte RN Position: [facility] RN Member Role: Primary Care Nurse Name: Sydney Zelaya Position: [facility] PCO OFFICE STAFF Member Role: Lifetime Consulting Physician Name: Judd Barahona RN Position: [facility] RN Member Role: Primary Care Nurse Name: Mag Harry RN Position: [facility] RN Member Role: Primary Care Nurse Name: An Blount RN Position: [facility] RN Supv Member Role: Primary Care Nurse Name: Marianna Ng RN Position: [facility] RN Member Role: Primary Care Nurse Name: Avani Odell RN Position: [facility] RN Member Role: Primary Care Nurse Name: Lisbet Hickman RN Position: [facility] RN Member Role: Primary Care Nurse Name: Ruben Bello RN Position: [facility] RN Member Role: Primary Care Nurse Name: Araceli Simon RN Position: [facility] RN Member Role: Primary Care Nurse Name: Moni Dugan RN Position: [facility] RN Member Role: Primary Care Nurse Name: Jorge Garcia III, MD Position: Reference Physician Member Role: PCP Address: Address: [address] [place] [id number] Name: Misty Nguyen RN Position: [facility] RN Member Role: Primary Care Nurse Name: Joyce Cobb Position: [facility] RN Member Role: Primary Care Nurse Name: Sarwat Aj RN Position: [facility] RN Member Role: Primary Care Nurse Name: Cassi Batista RN Position: [facility] RN Member Role: Primary Care Nurse Name: Yanni Holland RN Position: [facility] RN Member Role: Primary Care Nurse Name: Daija Huitron RN Position: [facility] RN Member Role: Primary Care Nurse Name: Ellis Mayfield RN Position: [facility] RN Supv Member Role: Primary Care Nurse Name: Ayah Robison RN Position: [facility] RN Member Role: Primary Care Nurse Name: Kirstin Enriquez RN Position: [facility] RN Member Role: Primary Care Nurse Name: Radha Moreno RN Position: [facility] RN Member Role: Primary Care Nurse Name: Jina Smalls RN Position: [facility] RN Member Role: Primary Care Nurse Name: Laura Clements RN Position: [facility] RN Member Role: Primary Care Nurse Name: Colette Syed RN Position: [facility] RN Member Role: Primary Care Nurse Name: Muriel Daley RN Position: [facility] RN Supv Member Role: Primary Care Nurse Name: Darlyn Alvarez RN Position: [facility] RN Member Role: Primary Care Nurse Name: Zohreh Pink RN Position: [facility] RN Member Role: Primary Care Nurse Name: Sophie Berrios RN Position: [facility] RN Member Role: Primary Care Nurse Name: Grisel Mcgowan RN Position: [facility] RN Member Role: Primary Care Nurse Name: Uyen Mitchell RN Position: [facility] RN Member Role: Primary Care Nurse Name: Nasra Smith RN Position: [facility] PCO w/OE and EZ Script Member Role: Primary Care Nurse Name: Cindy Grullon RN Position: [facility] RN Supv Member Role: Primary Care Nurse Name: Silas Knox RN Position: [facility] RN Member Role: Primary Care Nurse Name: Elham Lee RN Position: [facility] PCO RN Member Role: Primary Care Nurse Name: Dariana Mariee RN Position: [facility] RN Member Role: Primary Care Nurse Name: Ana María Cat RN Position: [facility] RN Member Role: Primary Care Nurse Name: Flor Holley Position: [facility] RN Member Role: Primary Care Nurse Name: Bret Aguirre RN Position: [facility] RN Member Role: Primary Care Nurse Name: Ghazal Moreno Position: [facility] RN Member Role: Primary Care Nurse Name: Audra Martinez RN Position: [facility] RN Member Role: Primary Care Nurse Name: Shahbaz Bobo RN Position: [facility] RN Member Role: Primary Care Nurse Name: Jennifer Yin LPN Position: [facility] RN Member Role: Primary Care Nurse Name: Alina Arce RN Position: [facility] RN Member Role: Primary Care Nurse Name: Radha Masterson RN Position: [facility] RN Member Role: Primary Care Nurse Name: Landy Villarreal RN Position: [facility] RN Member Role: Primary Care Nurse Name: Amy Larios RN Position: [facility] RN Member Role: Primary Care Nurse Name: Indira Lindsey RN Position: [facility] SN RN Member Role: Primary Care Nurse Name: Rosa Elena Pope RN [facility] [facility] RN Member Role: Primary Care Nurse Name: Florentino Garcia RN Position: [facility] RN Member Role: Primary Care Nurse Name: Cristel Moreno RN Position: [facility] SN RN Member Role: Primary Care Nurse Name: Rosa Elena De León RN Position: [facility] Tree Trimming Line Technician Member Role: Primary Care Nurse Name: Tulio Pina RN Position: [facility] RN Member Role: Primary Care Nurse Name: Maximiliano Claros RN Position: [facility] RN Member Role: Primary Care Nurse Name: Narda Barnes RN Position: [facility] RN Member Role: Primary Care Nurse Name: Zoë Cisse RN Position: [facility] RN Member Role: Primary Care Nurse Name: Pat Bowers RN Position: [facility] SN RN Member Role: Primary Care Nurse Name: Ruy Salcido RN Position: [facility] RN Member Role: Primary Care Nurse Name: Tayler Cabello RN Position: [facility] RN Member Role: Primary Care Nurse Name: Hilaria Aparicio RN Position: [facility] RN Member Role: Primary Care Nurse Name: Carly Rosado RN Position: [facility] RN Supv Member Role: Primary Care Nurse Name: Taryn Rosado RN Position: [facility] RN Member Role: Primary Care Nurse Name: Sydney Rosado RN Position: [facility] RN Member Role: Primary Care Nurse Name: Uriel Dumont Position: [facility] RN Member Role: Primary Care Nurse Name: Selene Vazquez RN Position: [facility] RN Member Role: Primary Care Nurse Name: Dariana Becerra RN Position: [facility] RN Member Role: Primary Care Nurse Name: Leyla Verma LPN Position: [facility] RN Member Role: Primary Care Nurse Name: Rody Mays RN Position: [facility] RN Member Role: Primary Care Nurse Name: Marielos Mixon RN Position: [facility] RN Member Role: Primary Care Nurse Name: Radha Flores RN Position: [facility] RN Member Role: Primary Care Nurse Name: Leona Alvarez RN Position: [facility] RN Member Role: Primary Care Nurse Name: Rose Kyle RN Position: [facility] Tree Trimming Line Technician Member Role: Primary Care Nurse Name: Aimee Salamanca RN Position: [facility] RN Member Role: Primary Care Nurse Name: Jacobo Caceres Position: [facility] RN Member Role: Primary Care Nurse Name: Savanna PINK Attending Position: [facility] ED Medicine MD Name: Briseyda Pope RN Position: [facility] ED RN W/OE and Tasks Member Role: Patient Care Provider Name: Kelli Garcia Position: [facility] ED TA [facility] Member Role: Brand Sales Consultant Care Team Related Persons Name: STEVENSON HAMM Address: home [address] [place] [address] Name: MELINA VARMA Address: [place] [address] Name: GARRY VARMA Address: home [address] [address] Name: BRIEN LANCASTER Address: home [address] [address]
--- OUTSIDE RECORDS SUMMARY | 2023-08-15 20:32 | XMS_ITS | Continuity of Care Document ---
Author Name Unknown Organization [facility] ter Address [address] [place] [address]- Care Team Providers Care National Sales Associate Name Role Phone Jose LEE MD, Jorge Tsang Primary Care Physician [place] [facility] [place] 07/04/[address] [address]- [facility] Encounter Diagnosis Abdominal pain(Final) - 07/04/20 Discharge Disposition: A-D/C AMA Attending Physician: Blair Lynn MD Admitting Physician: Blair Lynn MD Referring [...] 10:39:00 EST, Aerosol, Route to Pharmacy Electronically, [id number], [facility]/pharmacy #[id number], 182, cm, 12/26/19 9:43:00 [...] Acute 07/12/20 13:57:00 EDT, 06/12/20 13:57:00 EDT, [facility]/pharmacy #[id number], [...] Acute 11/08/20 13:57:00 EST, 05/15/20 13:55:00 EDT, [facility]/pharmacy #[id number], 182, cm, 05/15/20 13:20:00 EDT, Height... Start Date: 05/15/20 Stop Date: 11/08/20 Status: Ordered predniSONE 5 mg oral tablet 1 tablet = 5 mg, By Mouth, Daily, 4 tabs daily reduce by 1 tab every 3 days (or if wheezing resolved, every 2 days), # 30 tablet, 2 Refills, Maintenance, 11/08/20 13:57:00 EST, [facility]/pharmacy #[id number], 182, cm, 05/15/20 13:20:00 EDT, Height, 56.4, kg, 06/28... Start Date: 11/08/20 Status: Ordered roflumilast 500 mcg oral tablet 1 tablet = 500 mcg, By Mouth, Daily, # 30 tablet, 11 Refills, Maintenance, 05/15/20 13:53:00 EDT, [facility]/pharmacy #[id number], 182, cm, 05/15/20 13:20:00 [...] 11:15:26, Print MARTIN Number, [facility], [address] [place] [address], [id number], Constant Indicator Start Date: 03/31/07 Stop Date: [...] 3 Oxygen Saturation [94-100 %] 99 % (07/04/20 9:00 PM) 98 % (07/04/20 7:43 PM) 97 % (07/04/20 6:35 PM) Pulse Rate [55-90 bpm] 78 bpm (07/04/20 9:00 PM) 77 bpm (07/04/20 7:43 PM) 85 bpm (07/04/20 6:35 PM) Blood Pressure [90-138/55-84 mm Hg] 124/74mm Hg (07/04/20 9:00 PM) 135/79mm Hg (07/04/20 7:43 PM) 139/84mm Hg *H* (07/04/20 6:35 PM) Respiratory Rate [16-30 br/min] 18 br/min (07/04/20 9:00 PM) 17 br/min (07/04/20 7:43 PM) 19 br/min (07/04/20 6:40 PM) Temperature [96.8-100.4 DegF] 98.5 DegF (07/04/20 9:00 PM) 98.6 DegF (07/04/20 2:05 PM) 98.2 DegF (07/04/20 9:34 AM) Liters per Minute 2 L/min (07/04/20 9:00 PM) 2 L/min (07/04/20 7:43 PM) 2 L/min (07/04/20 6:35 PM) Mode of Delivery (Oxygen) Nasal cannula (07/04/20 9:00 PM) Nasal cannula (07/04/20 7:43 PM) Nasal cannula (07/04/20 6:35 PM) Blood pressure sites Arm, left (07/04/20 9:00 PM) Arm, left (07/04/20 7:43 PM) Arm, left (07/04/20 6:35 PM) Temperature Route Oral (07/04/20 9:00 PM) Oral (07/04/20 2:05 PM) Oral (07/04/20 9:34 AM) Social History Social History Type Response Tobacco Use: Former smoker.. Sex Male
--- OUTSIDE RECORDS SUMMARY | 2023-08-15 20:32 | XMS_ITS | Continuity of Care Document ---
Author Name Unknown Organization [facility] Address [address] [place] [address]- Care Team Providers Care Cartoon Artist Name Role Phone Jose LEE MD, Jorge Tsang Primary Care Physician [phone] Encounter [facility] [place] Date(s): 06/09/21 - 07/09/21 [facility] [address] [place] [address]- Allergies, Adverse Reactions, Alerts Substance Reaction Severity [...] 16:44:00 EDT, Aerosol, Route to Pharmacy Electronically, [id number], [facility]/pharmacy #[id number], 182, cm, 05/26/20 16:01:00 E... [...] 0 Refills, Maintenance, 07/01/21 14:22:00 EDT, Tablet, [facility]/pharmacy #[id number], Partial fill upon patient request ifthe [...] Maintenance, 08/13/20 16:33:00 EDT, Powder, [facility]/pharmacy #[id number], 182, cm, 05/26/20 16:01:00 EDT, [...] Refills, Maintenance, 05/15/20 13:53:00 EDT, [facility]/pharmacy #[id number], 182, cm, 05/15/20 13:20:00 EDT, Height, [...] 03/31/07 11:15:26, Print MARTIN Number, ADS [facility], [address] [place] [address], [id number], Constant Indicator Start Date: 03/31/07 Stop Date: [...]
--- OUTSIDE RECORDS SUMMARY | 2023-08-15 20:32 | XMS_ITS | Continuity of Care Document ---
Author Name Unknown Organization [facility] ter Address [address] [place] [address]- Care Team Providers Care National Recruiter Name Role Phone Jose LEE MD, Jorge Tsang Primary Care Physician [phone] Encounter [facility] [place] Date(s): 05/08/22 - 05/09/[address] [address]- Encounter Diagnosis Chronic pain(Final) - 05/09/22 Discharge Disposition: A-D/C AMA Attending Physician: Michele [...] 16:44:00 EDT, Aerosol, Route to Pharmacy Electronically, [id number], [facility]/pharmacy #[id number], 182, cm, 05/26/20 [...] Tablet Start Date: 07/01/14 Status: Ordered doxycycline hyclate 100 mg oral capsule 1 capsule = 100 mg, By Mouth, 2 times a day, for 7 days, # 14 capsule, 0 Refills, Acute 05/11/22 13:22:00 EDT, 05/04/22 13:22:00 EDT, Capsule, [facility]/pharmacy #[id number], Partial fill upon patient request ifthe [...] oral capsule 300 mg, Capsule, By Mouth, 05/09/22 9:00:00 EDT Start Date: 05/09/22 Stop Date: 05/09/22 Status: Completed Incruse Ellipta 62.5 mcg/inh inhalation [...] Start Date: 10/07/21 Status: Ordered Methadone Liquid 10 mg, Solution, By Mouth, Once, STAT, 05/09/22 9:04:00 EDT, Stop date 05/09/22 9:04:00 EDT Start Date: 05/09/22 Stop Date: 05/09/22 Status: Completed Multivitamin Daily, 0 Refills, Maintenance, [...] 05/10/22 8:00:00 EDT, 05/07/22 8:00:00 EDT, Tablet, [facility]/pharmacy #[id number], Partial fill... Start Date: 05/07/22 Stop Date: [...] Route to Pharmacy Electronically, [facility]/pharmacy #[id number], Partial fill upon patientrequest if the prescription is for a schedule II op... Start Date: 04/10/22 Status: Ordered Toprol XL 25 mg oral tablet, extended release 25, mg, 1, tablet, By Mouth, Daily, 30, tablet, 6, 6, 03/31/07 11:15:26, Print MARTIN Number, [facility], [address] [place] [address], [id number], Constant Indicator Start Date: 03/31/07 Stop Date: [...] 3 Oxygen Saturation [94-100 %] 100 % (05/09/22 8:31 AM) 100 % (05/09/22 5:56 AM) 100 % (05/08/22 8:52 PM) Pulse Rate [55-90 bpm] 80 bpm (05/09/22 8:31 AM) 86 bpm (05/09/22 5:56 AM) 86 bpm (05/08/22 8:52 PM) Blood Pressure [90-138/55-84 mm Hg] 139/88mm Hg *H* (05/09/22 8:31 AM) 112/94mm Hg (05/09/22 5:56 AM) 110/92mm Hg (05/08/22 8:52 PM) Respiratory Rate [16-30 br/min] 16 br/min (05/09/22 9:29 AM) 16 br/min (05/09/22 8:35 AM) 16 br/min (05/09/22 8:31 AM) Temperature [96.8-100.4 DegF] 97.9 DegF (05/09/22 8:31 AM) 98.2 DegF (05/08/22 8:52 PM) Liters per Minute 3 L/min (05/09/22 8:31 AM) 3 L/min (05/09/22 5:56 AM) 3 L/min (05/08/22 8:52 PM) Mode of Delivery (Oxygen) Nasal cannula (05/09/22 8:31 AM) Nasal cannula (05/09/22 5:56 AM) Nasal cannula (05/08/22 8:52 PM) Blood pressure sites Arm, left (05/09/22 8:31 AM) Arm, left (05/09/22 5:56 AM) Arm, left (05/08/22 8:52 PM) Temperature Route Oral (05/09/22 8:31 AM) Oral (05/08/22 8:52 PM) Social History Social History Type Response Tobacco Use: 4 or less cigar ettes(less than 1/4 pack)/day in last 30 days. Interested in cessation: Yes. Type: Cigarettes. Sex
--- OUTSIDE RECORDS SUMMARY | 2023-08-15 20:32 | XMS_ITS | Continuity of Care Document ---
Author Name Unknown Organization [facility] Address [address] [address]- Care Team Providers Care Tour Agent Name Role Phone Jose LEE MD, Jorge Tsang Primary Care Physician [place] [facility] [place]20 [facility] [address] [facility] [address] [place] [address]- [facility] Attending Physician: Oscar Rios MD [...] 10:39:00 EST, Aerosol, Route to Pharmacy Electronically, [id number], [facility]/pharmacy #[id number], 182, cm, 12/26/19 9:43:00 EST, Heig... Start Date: 12/26/19 Status: Ordered apixaban = 5 mg, By Mouth, 2 times a day, To start after 7 days of 10 mg dose, 0 Refills, Maintenance, 05/27/19 14:17:22 EDT, Tablet Start Date: 05/27/19 Status: Ordered Smile [employer] ag, See Instructions, # 1 box, [...] 1 each, 0 Refills, Maintenance, 03/24/20 22:05:00EDT, [facility]/pharmacy #[id number], Apply to right knee [...] 1 Refills, Maintenance, 04/22/20 16:34:00 EDT, Tablet, [facility]/pharmacy #[id number], 182, cm, 04/22/20 15:28:00 EDT, Height, 56.4, kg, 07/11/19 18:58:00 EDT, DryWeight Start Date: 04/22/20 Status: Ordered predniSONE 10 mg oral tablet See Instructions, 4 tabs x 2 days, 3 tabs x 2 days, 2 tabs x 2 days, 1 tab x 2 days, # 16 tablet, 0Refills, Acute 04/26/20 12:00:00 EDT, 04/18/20 16:37:00 EDT, [facility]/pharmacy #[id number], Patient already has 4 tabs at [...] 6, 03/31/07 11:15:26, Print MARTIN Number, ADS [facility], [address] [place] [address], [id number], Constant Indicator Start Date: 03/31/07 Stop Date: [...]
--- OUTSIDE RECORDS SUMMARY | 2023-08-15 20:32 | XMS_ITS | Continuity of Care Document ---
Author Name Unknown Organization [facility] ter Address [address] [place] [id number] Care Team Providers Care C Wpf Developer Name Role Phone Jose LEE MD, Jorge Tsang Primary Care Physician [phone] Encounter [place] Date(s): 07/28/23 - 08/01/[address] [id number]- Discharge Disposition: A-D/C Home Attending Physician: Oscar Siu MD Admitting Physician: Judi Child MD Referring Physician: Not on Staff, Referring [...] virus vaccine, inactivated 1 10/14/06 Gi rox [id number] 12y+ bivalent booster vax 08/23/22 Recorded SARS-CoV-2 [...] , Mild, Temperature Greater than 100.5, Routine, 07/28/23 1:21:00 EDT Start Date: 07/28/23 Stop Date: 08/01/23 Status: Discontinued albuterol 0.042% inhalation solution 3 [...] opioid drug. Start Date: 07/02/22 Status: Ordered [place] Saline 0.65% nasal gel 1 sprays, Nares, Both, 4 times a day, # 22.5 Gm, 0 Refills, Maintenance, 05/12/23 15:41:00 EDT, [facility]/pharmacy #[id number], Partial fill upon patient request if the prescription is for a schedule II opioid drug., 1 sprays Nares, Both 4 times a day, 183, cm, 0... Start Date: 05/12/23 Status: Ordered collagenase topical 250 u/gm ointment See Instructions, Use over right shoulder wound daily, # 90 Gm, 0 Refills, Maintenance, 06/04/23 11:59:00 EDT, Ointment, [facility]/pharmacy #[id number], Partial fill upon [...] 5 Refills, Maintenance, 04/27/23 13:54:00 EDT, Tablet, [facility], Partial fill upon patient request if the prescription is for a schedule II opioid drug., 183, cm, 04/27/23 7:05:00... Start Date: 04/27/23 Stop Date: 10/24/23 Status: Ordered ferrous sulfate 325 mg oral enteric coated tablet 325 mg, 1, tablet, By Mouth, Daily, # 30 tablet, Refills 1, Tot. Refills 1, Maintenance, 06/04/23 12:19:00 EDT, Route to Pharmacy Electronically, [facility]/pharmacy #[id number], Partial fill upon patient requestif the prescription [...] 06/04/23 11:59:00 EDT, Route to Pharmacy Electronically, [facility]/pharmacy #[id number], Partial fill upon [...] release 25 mg, XL Tablet, By Mouth, 08/01/23 9:00:00 EDT Start Date: 08/01/23 Stop Date: 08/01/23 Status: Completed Metoprolol Succinate ER 25 mg [...] 0 Refills, Soft Stop, 07/26/23 9:12:00 EDT, [facility], Partial fill upon patient request if the prescription is for a schedule II opioid drug., 182, cm, 07/26/23 6:00:00 EDT, Height, 55.7, kg, ... Start Date: 07/26/23 Status: Ordered oxyCODONE 5 mg oral tablet 5 mg, Tablet, By Mouth, Every 6 hours, PRN for Pain , Moderate, Routine, 07/28/23 5:27:00 EDT Start Date: 07/28/23 Stop Date: 08/01/23 Status: Discontinued oxyCODONE 5 mg oral tablet 5 mg, By Mouth, Every 6 hours, PRN, # 12 tablet, Refills 0, Tot. Refills 0, Acute 08/02/23 23:59:00EDT, Pain , Moderate, 07/30/23 11:04:00 EDT, Print Requisition, Partial fill upon patient request if the prescription is for a schedule II opioid drug. Start Date: 07/30/23 Stop Date: 08/02/23 Status: Ordered predniSONE 5 mg oral tablet 3 tablet = 15 mg, By Mouth, Daily, 15 mg daily maintanence dose after the initial taper, # 90 tablet, 0 Refills, Maintenance, 06/08/23 13:43:00 EDT, Tablet, [facility]/pharmacy #[id number], Partial fill upon [...] for Microbiology Reports Name Date Blood Culture 07/27/23 Blood Culture #2 07/27/23 Microbiology Reports TEST:Blood Culture STATUS:Auth (Verified) BODY SITE: SOURCE:Blood COLLECTED DATE/TIME:07/27/23 7:33 PM Blood Culture SPECIMEN DESCRIPTION : BLOOD L FOREARM SPECIAL REQUESTS : NONE CULTURE : NO GROWTH 5 DAYS. REPORT STATUS : FINAL 08/01/2023 TEST:Blood Culture, Second Order STATUS:Auth (Verified) BODY SITE: SOURCE:Blood COLLECTED DATE/TIME:07/27/23 7:32 PM Blood Culture, Second Order SPECIMEN DESCRIPTION : BLOOD R AC SPECIAL REQUESTS : NONE CULTURE : NO GROWTH 5 DAYS. REPORT STATUS : FINAL 08/01/2023 Radiology Reports * Exam Date Time Procedure Performing Provider Status 07/28/23 9:36 PM MRI Abdomen W+W/O Contrast Nam Irvin F; Auth (Verified) Notes: (MRI Abdomen W+W/O Contrast) Reason For Exam: Please see CT scan: pancreatic head lesion (?) IPMN vs. malignancy;Other: RESULT: MRI Abdomen W+W/O Contrast MRI Abdomen W+W/O Contrast Reason: Prior CT scan: pancreatic head lesion (?) IPMN vs. malignancy. Clinical Question(s): Tumor Primary. TECHNIQUE: Multiplanar, multisequence pre and post contrast MRI evaluation of the abdomen was performed. 12 cc of Clariscan was administered intravenously. 3- D rotating maximum intensity projection MRCP images of the biliary tree were generated on the same workstation with concurrent physician supervision. COMPARISON: CT abdomen and pelvis with IV contrast 07/27/2023, 06/05/2023. FINDINGS: LOWER THORAX: Mild bibasilar atelectasis. No pleural or pericardial effusion. Small right fat-containing Bochdalek hernia. LIVER: Normal contour and size. Normal parenchymal enhancement. No suspicious lesion. GALLBLADDER: Partially contracted. No gallstones. No acute inflammatory change BILE DUCTS: No biliary ductal dilatation. SPLEEN: Normal. PANCREAS: 1.9 x 0.8 x 1.6 cm lobular T2 hyperintense (4:40) cystic lesion in the pancreatic head which correlates to hypodense lesion identified on prior CT abdomen pelvis. There is communication with the main pancreatic duct. No postcontrast enhancement. No restricted diffusion. An additional, similar appearing 0.7 x 0.5 x 0.5 cm well-circumscribed T2 hyperintense, nonenhancing cyst in the tail of the pancreas (4:33). Top normal diameter of the main pancreatic duct up to 0.4cm. ADRENAL GLANDS: No nodules. KIDNEYS: No hydronephrosis. Kidneys enhance symmetrically. No suspicious mass. A few T2 hyperintense cysts in the left kidney measuring up to 1.9 cm. STOMACH/UPPER GI TRACT: Stomach and visualized abdominal bowel normal in caliber. PERITONEUM AND RETROPERITONEUM: No loculated fluid collection or peritoneal mass. LYMPH NODES: No lymphadenopathy. VESSELS: Abdominal aorta is nonaneurysmal. Hepatic, portal and splenic veins patent. Visualized inferior vena cava unremarkable. ABDOMINAL WALL: Unremarkable. BONES: Mild degenerative changes of the visualized spine. Mild levoconvex lumbar scoliosis. Lumbosacral spinal fusion hardware extending from L4-S1. L5-S1 discectomy. Stable compression deformity of the L1 vertebral body. Chronic defects in the posterior iliac bones, left greater than right. IMPRESSION: 1.9 cm lobular cyst in the head of the pancreas. A similar-appearing, but smaller 2.7 cm cyst is seen in the tail of the pancreas. 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 Top normal pancreatic duct diameter of 0.4 cm. MRI in one year is recommended per ACR White Paper Guidelines on incidental pancreatic cysts to assess for progression/regression. I have personally reviewed the images and I agree with this report. WSN: [id number] Ordering Physician: Mauricio Fernandez Dictated By: Cal Frost MD Dictated Date/Time: 07/29/23 9:35 am Reviewed By: Kostas Oconnor MD Signed By: Kostas Oconnor MD Signed Date/Time: 07/29/23 9:40 am Transcribed By: BERENICE Transcribed Date/Time: 07/29/23 9:07 am * Exam Date Time Procedure Performing Provider Status 07/27/23 3:[address] Abd/Pelvis W/ IV Contrast Only Hardik Hunter; Auth (Verified) Notes: (CT Abd/Pelvis W/ IV Contrast Only) Reason For Exam: LLQ abdominal pain;Other: RESULT: CT Abd/Pelvis W/ IV Contrast Only CT Abd/Pelvis W/ IV Contrast Only Hx of Present Illness: abd pain, shoulder pain, SOB; Reason: Other:; LLQ abdominal pain; Clinical Question(s): Bowel Perforation; Order Comment: TECHNIQUE: Spiral CT through the abdomen and pelvis with IV contrast formatted in 3 planes. 100 cc of Omnipaque 300 was administered intravenously. This study was performed oral contrast. Weight-based protocol using automatic tube modulation was used to optimize exposure parameters. CTDIvol Body: 15.10 mGy, DLP Body: 1101 mGy*cm. COMPARISON: CT of chest dated 07/27/[address] abdomen and pelvis 11/13/2022 and 06/05/2023 FINDINGS: Song Lyricist View Findings, Lines and Tubes: None. Visualized Chest: Atelectasis in both lung bases. No pleural effusion. The heart is normal in size.No pericardial effusion. Diaphragm: Normal. Liver: Normal. Gallbladder: No CT evidence of gallbladder pathology. Bile ducts: No biliary ductal dilation. Spleen: Normal. Pancreas: There is a cystic lesion in the pancreatic head measuring 2.1 x 1.3 x 1.8 cm similar to the examination of 06/05/2023 but mildly increased in size from 11/13/2022. There is mild dilatation ofthe pancreatic duct, measuring 4 mm. Adrenal glands: Normal. Kidneys and ureters: Stable small left renal cysts. The kidneys and ureters are otherwise unremarkable. Bladder: Normal. Reproductive organs: Unremarkable. Stomach, small bowel, and large bowel: Normal. Appendix: Normal. Peritoneum and retroperitoneum: No ascites or pneumoperitoneum. No omental or mesenteric lesions. Lymph nodes: No enlarged lymph nodes. Blood vessels: Normal. No aneurysm. No evidence of venous thrombosis. Abdominal and pelvic wall: Unremarkable. Bones: No acute abnormality. Lumbar dextroscoliosis. Remote L5-S1 discectomy. Posterior fusion fromL4 through S1 utilizing pedicle screws and rods. Degenerative changes elsewhere in the lower thoracic and lumbar segments of the spine with diminished height of multiple intervertebral discs. Stable c ompression deformity of L1 primarily involving the superior endplate. Left hip prosthesis with additional fixation hardware in the proximal left femur. Stable chronic defects in the posterior aspect of each iliac bone. IMPRESSION: No acute abnormality in the abdomen and pelvis. 2.1 x 1.3 x 1.8 cm cystic lesion in the pancreatic head unchanged from 06/05/2023 but mildly increased in size from October,. The differential includes IPMN and and cystic adenocarcinoma. A MRI examination of the pancreas is recommended for further evaluation. Mild dilatation of the pancreatic duct, measuring 4 mm, slightly increased in size from previous examinations. Stable chronic degenerative and postoperative findings involving the spine, both iliac bones, and left hip. WSN: [id number] Ordering Physician: Teressa Dubose Dictated By: Judd Anthony MD Dictated Date/Time: 07/27/23 5:31 pm Reviewed By: Judd Anthony MD Signed By: Judd Anthony MD Signed Date/Time: 07/27/23 5:31 pm Transcribed By: BERENICE Transcribed Date/Time: 07/27/23 5:22 pm * Exam Date Time Procedure Performing Provider Status 07/27/23 3:[address] Angio Chest Hardik Polk; Auth (V erified) Notes: (CT Angio Chest) Reason For Exam: PE suspected, Intermediate prob, positive D-dimer,;Other: RESULT: CT Angio Chest EXAMINATION: CT Angio Chest INDICATION: Hx of Present Illness: abd pain, shoulder pain, SOB; Reason: Other:; PE suspected, Intermediate prob, positive D-dimer,; Clinical Question(s): Pulmonary Embolism TECHNIQUE: Spiral CTA of the chest was performed after rapid IV contrast administration without cardiac gating, triggered by an BALJINDER on the main pulmonary artery. Images are formatted in multiple planes using 2-D multiplanar and 3-D maximum intensity projection. 100 cc of Omnipaque 300 was administered intravenously. Weight-based protocol using automatic tube modulation was used to optimize exposure parameters. CTDIvol Body: 9.88 mGy, DLP Body: 1648 mGy*cm. COMPARISONS: 07/08/2023. ANGIOGRAPHIC FINDINGS: No acute pulmonary thromboembolism to the segmental pulmonary arterial level. The main pulmonary artery is enlarged at 33 mm. The thoracic aorta is nonaneurysmal. No acute dissection. There is mild eccentric atherosclerosis throughout the thoracic aorta. There is patent two-vessel arch, a common anatomical variant, with eccentric mild to moderate atherosclerosis of the proximal arch branch vessels. NON-ANGIOGRAPHIC FINDINGS: Song Lyricist View Findings, Lines and Tubes: None. Trachea and Airways: Patent without evidence of tracheal or endobronchial lesion. Lungs and Pleura: Calcified granuloma in the right upper lung. There is pulmonary emphysema with hyperexpansion of the lungs. There is basilar atelectasis and motion artifact in the lower lungs. No effusion or pneumothorax. Mediastinum and sivan: Subcentimeter thyroid nodules which do not warrant further workup, per current guidelines. Mildly enlarged subcarinal lymph node up to 1.2 cm. no hilar adenopathy. No esophagealabnormality. Heart: Normal heart size. Mild left ventricular hypertrophy which can be seen with systemic hypertension. There is severe coronary artery atherosclerosis. No pericardial effusion. Chest Wall Soft Tissues: No axillary adenopathy. There is soft tissue swelling and joint effusion at the left shoulder joint. Soft tissue swelling extends along the right proximal shoulder. Diaphragm and upper abdomen: Limited images of the upper most abdomen show no acute abnormality. There is vascular atherosclerosis. There is hepatic steatosis with very minimal nodularity of the liver contour. Bones: There are healing rib fractures, for example interval healing with incomplete healing at left anterior fourth, fifth rib fractures and previous fixation of multiple right posterior rib fractures. The left humeral fracture is not included on this exam. There is deformity at the medial clavicle on the right. There are severe degenerative changes of the right hip joint. There are multiple levels of severe compression deformity at the mid thoracic spine which is unchanged and includes mild compression deformity at this superior endplate of T4 and T5 and severe compression deformity of T6, T7, and T8. There is also mild compression deformity at the superior endplate of T12, unchanged. There is also mild compression deformity at the superior endplate of L1. IMPRESSION: No evidence of pulmonary embolism. Hyperinflated lungs with emphysema. Enlarged main pulmonary artery. This can be seen with underlying pulmonary hypertension. Multiple healing left anterior rib fractures, previous fracture of the right clavicle and hardware at previous right rib fractures with healing. There is a right shoulder joint effusion and facial soft tissue swelling. Osteoarthritic changes ofthe right glenohumeral joint. WSN: [id number] Ordering Physician: Teressa Dubose Dictated By: Lexy Perdomo MD Dictated Date/Time: 07/27/23 4:19 pm Reviewed By: Lexy Perdomo MD Signed By: Lexy Perdomo MD Signed Date/Time: 07/27/23 4:19 pm Transcribed By: BERENICE Transcribed Date/Time: 07/27/23 4:11 pm Vital Signs Most recent to oldest [Reference Range]: 1 2 3 Height 183 cm (08/01/23 11:45 AM) 183 cm (08/01/23 8:59 AM) 183 cm (08/01/23 6:44 AM) Weight 59.8 kg (08/01/23 6:44 AM) 60.5 kg (07/28/23 4:27 AM) 57 kg (07/27/23 7:25 PM) Oxygen Saturation [94-100 %] 97 % (08/01/23 11:45 AM) 96 % (08/01/23 8:59 AM) 98 % (08/01/23 6:44 AM) Pulse Rate [55-90 bpm] 84 bpm (08/01/23 11:45 AM) 89 bpm (08/01/23 9:01 AM) 79 bpm (08/01/23 6:44 AM) Body Mass Index [18.5-24.99 kg/m2] 17.86 kg/m2 *L* (08/01/23 6:44 AM) 18.07 kg/m2 *L* (07/28/23 4:27 AM) Blood Pressure [90-138/55-84 mm Hg] 118/63mm Hg (08/01/23 11:45 AM) 133/67mm Hg (08/01/23 8:59 AM) 132/86mm Hg (08/01/23 6:44 AM) Respiratory Rate [16-30 br/min] 17 br/min (08/01/23 11:45 AM) 18 br/min (08/01/23 11:16 AM) 18 br/min (08/01/23 10:01 AM) Temperature [96.8-100.4 DegF] 97.9 DegF (08/01/23 11:45 AM) 98.4 DegF (08/01/23 6:44 AM) 99.1 DegF (07/31/23 11:28 PM) Liters per Minute 4 L/min (08/01/23 11:45 AM) 4 L/min (08/01/23 8:59 AM) 4 L/min (08/01/23 6:44 AM) Mode of Delivery (Oxygen) Nasal cannula (08/01/23 11:45 AM) Nasal cannula (08/01/23 8:59 AM) Nasal cannula (08/01/23 6:44 AM) Blood pressure sites Arm, right (08/01/23 11:45 AM) Arm, left (08/01/23 8:59 AM) Arm, left (08/01/23 6:44 AM) Temperature Route Oral (08/01/23 11:45 AM) Oral (08/01/23 6:44 AM) Oral (07/31/23 11:28 PM) Dry Weight 60.5 kg (07/28/23 4:27 AM) Weight Obtained Via Bed scale (07/28/23 4:27 AM) Dry Weight Obtained Via Bed scale (07/28/23 4:27 AM) Social History Social History Type Response Tobacco Use: 4 or less cigar ettes(less than 1/4 pack)/day in last 30 days. Interested in cessation: Yes. Other: Reports smoked at least 30 years, up to 1-2 PPD at one point.. Type: Cigarettes. Sex Male Admission evaluation note * Nicole Gil MD: PERFORM Event Display: Admission Note Authored Date: [id number] Patient: ??ANT BRUMFIELD ? Age:??68 Years?Sex:??Male?:??1955?? Chief Complaint/Reason for Consultation R shoulder pain History of Present Illness 67-year-old??male with history of COPD on chronic steroids;??chronic hypoxic respiratory failure on4 L O2;??severe??peripheral vascular disease with history of femoral-popliteal??and left femoral endarterectomy surgeries;??recent right shoulder??MRSA septic arthritis with multiple recent hospitalizations for pain management;??presented with??right shoulder pain, abdominal pain and??shortness of breath. Patient also complained of shortness of breath, increasing sputum production and change in sputum color to green. ?? Recently when??patient was??admitted from 07/10/2023-07/26/2023,??left humerus fracture,??recent right shoulder septic arthritis, patient was continued on??pain management with multiple medications including oxycodone, Tylenol, gabapentin, duloxetine, lidocaine patch; patient was asked to continue Bactrim for septic arthritis indefinitely.?? Patient was asked to follow-up with wound care, and to set up PCP. For COPD, patient was continued on Roflumilast,??as needed albuterol nebs,??prednisone 15 mg daily. ?? Today when patient arrived in the ED, he was complaining of shortness of breath, there was right shoulder pain with leakage through the bandage.?? He received 1 dose of vancomycin and Zosyn in the ED. He has been afebrile, HR 70s-80s, RR 15-18, BP 110s-130s/70s-80s, saturating more than 95% on 4 L O2 via NC. ?? Labs showed VBG 7.64/PCO2 30/PO2 179. WBC 10.6, H/H 10/34 around baseline, platelet 446.?? ESR 100, CRP 8.6.?? Lactate 0.9, LFTs unremarkable except for elevated ALP 257, low ionized calcium 0.94, bicarb 33, rest of BMP unremarkable. Urinalysis not suggestive of infection. ?? CT PE study was negative for PE CT abdomen and pelvis with IV contrast showed increase in size of pancreatic head mass, IPMN versusadenocarcinoma, MRI pancreas recommended for further evaluation. Review of Systems Constitutional: Negative for fevers, chills, night sweats, weight changes, appetite changes. HEENT: Negative for headache, vision changes, hearing loss, nasal congestion, sore throat, neck pain/stiffness. Lungs and CVS: Positive for SOB, cough. ??Negative for orthopnea, PND chest pain, palpitations, dizziness, pedal edema. : Negative for dysuria, urgency, frequency, hematuria, incontinence. GIT: Negative for nausea, vomiting, abdominal pain, diarrhea, constipation. Neuro: Negative for speech difficulty, motor weakness, sensory changes, balance problems, vertigo. Back: Negative for back pain. Psych: Negative for depressed mood, anxiety. Skin and MSK: Positive for right shoulder pain,??increased discharge. ??Negative for new rash, new arthralgias. Objective Vital Signs?? Temperature: 98.1 DegF (07/28/23 04:27:00) Temperature Route: Oral (07/28/23 04:27:00) Pulse Rate:??92 bpm??High (07/28/23 04:27:00) Heart Rate Monitored: 79 bpm (07/28/23 06:00:00) Respiratory Rate: 22 br/min (07/28/23 06:00:00) Vented: No (07/28/23 06:00:00) Systolic Blood Pressure:??155 mm Hg??High (07/28/23 06:00:00) Diastolic Blood Pressure:??92 mm Hg??High (07/28/23 06:00:00) Blood pressure sites: Arm, right (07/28/23 06:00:00) Mean Arterial Pressure: 91 mm Hg (07/28/23 04:27:00) Pulse Pressure: 63 mm Hg (07/28/23 06:00:00) Oxygen Saturation: 95 % (07/28/23 06:00:00) Liters per Minute: 4 L/min (07/28/23 06:00:00) Mode of Delivery (Oxygen): Nasal cannula (07/28/23 06:00:00) End Tidal CO2: 21 mm Hg (07/27/23 19:25:00) Early Warning Score: 4 (07/28/23 06:09:53) ? Physical Exam General: Awake, alert, oriented x3.?In mod??distress because of pain. ??Able to speak in full sentences. Following commands appropriately. HEENT: NC/AT, PERRLA, no pallor, no icterus, moist mucous membranes. Neck: Supple, no JVD Respiratory: Clear to auscultation bilaterally. ??No wheezes, rhonchi or crackles appreciated. CVS: Regular rhythm. ??Normal S1-S2 heard. ??No murmurs, rubs or gallops appreciated. Abdomen: Soft, nondistended, nontender, no organomegaly appreciated. ??Normoactive bowel sounds. Neurological: Moving all 4 limbs freely. ??Speech normal. ??No obvious gross focal neuro deficit appreciated. Extremities: B/L pedal pulses palpable. ??No LE edema. Right shoulder:??Mild swelling??but no active discharge noted,??limitation of ROM Assessment/Plan Diagnoses CAD in [place] artery ??(I25.10) COPD without exacerbation ??(J44.9) Fracture of left humerus ??(S42.302A) History of DVT of lower extremity ??(Z86.718) Pancreatic lesion ??(K86.9) Right shoulder pain ??(M25.511) Septic arthritis ??(M00.9) ?? Assessment:??67-year-old male with history of COPD on chronic steroids; chronic hypoxic respiratoryfailure on 4 L O2; severe peripheral vascular disease with history of femoral-popliteal and left femoral endarterectomy surgeries; recent right shoulder MRSA septic arthritis with multiple recent hospitalizations for pain management; presented with right shoulder pain, abdominal pain and shortness of breath; being admitted for following problems: ?? Right shoulder pain (M25.511):??-Patient was discharged on??oxycodone,??but continued to have??pain,??was not able to function at home, hence??came to the ED. PLAN: -P.o. oxycodone??5-10 mg??every 6 hours as needed??for moderate-severe pain scale. -Continue home??Tylenol, gabapentin, duloxetine,??Lidoderm patch. -Patient is high risk of recurrent admissions given??ongoing pain??despite pain medications. -PT, and case management consulted ?? Septic arthritis (M00.9):??-Patient had recent right shoulder septic arthritis,??recently discharged??with recommendation to continue??Bactrim lifelong. -Patient complained of increased discharge, but bedside examination did not reveal so.??In the ED, patient received??vancomycin and Zosyn,??discontinued??as no??acute infection??noted.?? Patient afebrile, no leukocytosis. -Continue home Bactrim, pain management. ?? COPD without exacerbation (J44.9):??-Patient has??history of COPD,??uses 4 L O2??at home. -Does not seem to be in exacerbation. -Continue home inhalers??and nebs,??chronic prednisone??15 mg once daily,??continue home Roflumilast. ?? Pancreatic lesion (K86.9):??-Patient presented with??mild abdominal pain,??CT A/P??showed??increasing??pancreatic head mass??which may be IPMN versus??adenocarcinoma,??recommended??to get MRI pancreas for further evaluation. -Patient has??multiple??hardware still in place, unclear??if MRI compatible. Patient did mention that he has had MRI before,??but not formally not records. -Requested morning team to??take further??to safely get MRI. ?? CAD in [place] artery (I25.10):??No active chest pain. -Continue home??metoprolol??succinate 25 mg daily, isosorbide dinitrate. ?? Fracture of left humerus (S42.302A):??-Left humerus x-ray from 07/16/2023 showed healing left proximal humerus fracture with no change in alignment -Recently??orthopedics saw the patient,??on discharge patient was??asked to follow-up with??[facility]outpatient??in 1-2 weeks,??was recommended conservative management for now. ?? History of DVT of lower extremity (Z86.718):??-Continue home Eliquis??5 mg twice daily ?? VTE Prophylaxis:??-On Eliquis ?VTE Prophylaxis Assessment:??VTE Prophylaxis Ordered ?? Code Status:??-Full code ?Order Code Status:??Code Status Ordered ?? Date & Time of service: 07/28/23; around 5 am I spent a total of??58+ minutes, including both [id number] and dje-amgu-wr-face time on the date of the encounter, addressing the above diagnoses. Activities performed in this time include chart review, obtaining / reviewing history, performing a medically necessary evaluation, documentation, charting and counseling. ?? Please note: This note has been prepared using voice recognition software. As a result errors may occur. When identified these spindle frame carver errors have been corrected.??While every attempt is made to correct errors during dictation, errors may still exist. 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 Remove t... nalOXONE (Narcan 4 mg/0.1 mL nasal spray)?4?Milligram?Nares, Both?Once Oxycodone (oxyCODONE 10 mg oral tablet)?2?tab(s)?20?Milligram?By Mouth?Every 4 hours?for 3?Days Pantoprazole (Protonix 40 mg oral delayed release tablet)?1?tab(s)?40?Milligram?By Mouth?Daily PredniSONE (predniSONE 5 mg oral tablet)?3?tab(s)?15?Milligram?By Mouth?Daily?for 30?Days?15 mg daily maintanence dose after the initial taper roflumilast (roflumilast 500 mcg oral tablet)?1?tab(s)?500?Microgram?By Mouth?Daily Sodium Chloride Nasal ([place] Sal[place] 0.65% nasal gel)?1?spray(s)?Nares, Both?4 times a [...] COUNT & DIFF WBC 10.6 k/mm3 ()?? 07/27/2023 13:35 RBC 3.73 m/mm3 (Low)?? 07/27/2023 13:35 Hgb 9.9 Gm/dL (Low)?? 07/27/2023 13:35 Hct 34.0 % (Low)?? 07/27/2023 13:35 MCV 91.2 femtoliters ()?? 07/27/2023 13:35 MCH 26.5 pg (Low)?? 07/27/2023 13:35 MCHC 29.1 g/dL (Low)?? 07/27/2023 13:35 Platelet Count 446 k/mm3 ()?? 07/27/2023 13:35 RDW-SD 56.1 femtoliters (High)?? 07/27/2023 13:35 MPV 8.7 femtoliters (Low)?? 07/27/2023 13:35 Nucleated RBC (Automated) 0.0 #/100 WBC'S ()?? 07/27/2023 13:35 Abs. NRBC 0.0 k/mm3 ()?? 07/27/2023 13:35 Abs. Neut 7.5 k/mm3 (High)?? 07/27/2023 13:35 Abs. Lymph 1.1 k/mm3 ()?? 07/27/2023 13:35 Abs. [place] 1.3 k/mm3 ()?? 07/27/2023 13:35 Abs. Eo 0.2 k/mm3 ()?? 07/27/2023 13:35 Abs. Baso 0.1 k/mm3 ()?? 07/27/2023 13:35 Neut % 70.7 % ()?? 07/27/2023 13:35 Lymph % 10.4 % (Low)?? 07/27/2023 13:35 [place] % 11.7 % (High)?? 07/27/2023 13:35 Eos % 1.5 % ()?? 07/27/2023 13:35 Baso % 0.8 % ()?? 07/27/2023 13:35 Hemoglobin (POC) POC Cartridge 11.6 Gm/dL (Low)?? 07/27/2023 20:00 Hematocrit (POC) POC Cartridge 34 % (Low)?? 07/27/2023 20:00 Imm Gran 4.9 % ()?? 07/27/2023 13:35 Abs. Imm Gran 0.5 k/mm3 ()?? 07/27/2023 13:35 ?? BLOOD GAS pH Venous (POC) POC Cartridge 7.64 (High)?? 07/27/2023 20:00 pCO2 Venous (POC) POC Cartridge 29.7 mm Hg (Low)?? 07/27/2023 20:00 pO2 Venous (POC) POC Cartridge 179 mm Hg (High)?? 07/27/2023 20:00 Est Bicarbonate (POC) POC Cartridge 32.3 mmol/L (High)?? 07/27/2023 20:00 % O2 Sat Venous (POC) POC Cartridge 100 ()?? 07/27/2023 20:00 Base Excess (POC) POC Cartridge 11 ()?? 07/27/2023 20:00 Specimen Type - Blood Gas VENOUS ()?? 07/27/2023 20:00 ?? CARDIAC Nt-Probnp 284 pg/mL (High)?? 07/27/2023 19:32 High Sensitivity Troponin (HSTnT) HEMOLYZED ng/L ()?? 07/27/2023 19:32 ?? CHEM GENERAL Sodium 142 mmol/L ()?? 07/27/2023 13:35 Potassium 4.2 mmol/L ()?? 07/27/2023 13:35 Chloride 100 mmol/L ()?? 07/27/2023 13:35 Bicarbonate Level 33 mmol/L (High)?? 07/27/2023 13:35 Anion Gap 9 ()?? 07/27/2023 13:35 Sodium (POC) POC Cartridge 135 mmol/L ()?? 07/27/2023 20:00 Potassium (POC) POC Cartridge 4.1 mmol/L ()?? 07/27/2023 20:00 Glucose Level 98 mg/dL ()?? 07/27/2023 13:35 Glucose (POC) POC Cartridge 72 ()?? 07/27/2023 20:00 Glucose, POC 85 mg/dL ()?? 07/27/2023 18:45 BUN 21 mg/dL ()?? 07/27/2023 13:35 Creatinine-Blood 0.6 mg/dL (Low)?? 07/27/2023 13:35 Estimated GFR Creatinine 107 ML/MIN/1.73 M2 ()?? 07/27/2023 13:35 Calcium 9.8 mg/dL ()?? 07/27/2023 13:35 Ionized Calcium (POC) POC Cartridge 0.94 mmol/L (Critical)?? 07/27/2023 20:00 Protein, Total 5.9 Gm/dL (Low)?? 07/27/2023 13:35 Albumin 3.8 Gm/dL ()?? 07/27/2023 13:35 AG Ratio 1.8 ()?? 07/27/2023 13:35 Alkaline Phosphatase 257 units/L (High)?? 07/27/2023 13:35 Lipase 19 units/L ()?? 07/27/2023 13:35 AST (SGOT) 20 units/L ()?? 07/27/2023 13:35 ALT (SGPT) 25 units/L ()?? 07/27/2023 13:35 Bilirubin, Total 0.3 mg/dL ()?? 07/27/2023 13:35 Lactate 0.9 mmol/L ()?? 07/27/2023 13:35 C-Reactive Protein 8.6 mg/dL (High)?? 07/27/2023 19:32 ?? HEME OTHER Sed Rate 100 mm/hr (High)?? 07/27/2023 19:32 Hold Blue Top SPECIMEN DISCARDED AFTER 4 HOURS. ()?? 07/27/2023 13:35 ?? UA/URINALYSIS Appear/Color, Urine YELLOW ()?? 07/27/2023 18:26 Specific [place], Urine >1.050 (High)?? 07/27/2023 18:26 pH, Urine 5.5 ()?? 07/27/2023 18:26 Albumin, Urine 1+ (Abnormal)?? 07/27/2023 18:26 Glucose, Urine NEGATIVE ()?? 07/27/2023 18:26 Ketones, Urine NEGATIVE ()?? 07/27/2023 18:26 Bilirubin, Urine NEGATIVE ()?? 07/27/2023 18:26 Hemoglobin, Urine 1+ (Abnormal)?? 07/27/2023 18:26 Nitrite, Urine NEGATIVE ()?? 07/27/2023 18:26 Leukocyte, Urine TRACE (Abnormal)?? 07/27/2023 18:26 Urobilinogen NORMAL mg/dL ()?? 07/27/2023 18:26 WBC's, Urine 2 /HPF ()?? 07/27/2023 18:26 RBC's, Urine 7 /HPF (High)?? 07/27/2023 18:26 Bacteria SLIGHT HPF (Abnormal)?? 07/27/2023 18:26 Squamous Epith 1 /HPF ()?? 07/27/2023 18:26 Hyaline Cast 2 LPF ()?? 07/27/2023 18:26 Mucus SLIGHT /LPF ()?? 07/27/2023 18:26 Hold Urine Culture Testing available 48 hours from time of collection. ()?? 07/27/2023 18:26 ?? URINE OTHER Est Creatinine Clearance 103.63 mL/min ()?? 07/28/2023 04:29 ?? VIROLOGY COVID-19 by RT-PCR NEGATIVE ()?? 07/27/2023 19:23 ? Microbiology ?? COVID-19 (Novel Coronavirus), Rapid PCR?? Completed?? Source: Nasal Body Site: Nose Collected Dt/Tm: 07/27/2023 19:04 Last Updated Dt/Tm: 07/27/2023 20:30 ? EKG study * Event Display: ECG 12-Lead Authored Date: [id number] Please click on pdf link to open report * Event Display: ECG 12-Lead Authored Date: Ventricular Rate: 82 BPM Atrial Rate: 82 BPM P-R Interval: 132 ms QRS Duration: 84 ms Q-T Interval: 380 ms QTC Calculation(Bazett): 443 ms P [place]: 69 degrees R [place]: -52 degrees T [place]: 66 degrees Normal sinus rhythm Left anterior fascicular block Abnormal ECG When compared with ECG of 27-JUL-2023 12:37, No significant change was found Confirmed by ARMINDA JEREZ ([id number]) on 07/28/2023 7:52:57 AM [place]: ARMINDA JEREZ * Event Display: ECG 12-Lead Authored Date: Please click on pdf link to open report * Event Display: ECG 12-Lead Authored Date: Ventricular Rate: 91 BPM Atrial Rate: 91 BPM P-R Interval: 128 ms QRS Duration: 90 ms Q-T Interval: 356 ms QTC Calculation(Bazett): 437 ms P [place]: 83 degrees R [place]: -38 degrees T [place]: 80 degrees Normal sinus rhythm Left axis deviation Abnormal ECG When compared with ECG of 30-JUN-2023 20:37, No significant change was found Confirmed by ASHLEY DOMÍNGUEZ MD ([id number]) on 07/27/2023 4:59:15 PM [place]: ASHLEY DOMÍNGUEZ MD Cardiology * Event Display: Cardiac Rhythm Strips Authored Date: Hospital Progress note * Gwen Esquivel RN: PERFORM, SIGN, VERIFY Event Display: Progress Note Hospital Authored Date: Patient: ANT BRUMFIELD Age: 68 years Sex: Male : 1955 Associated Diagnoses: None Author: Gwen Esquivel RN Findings Evaluation Patient is alert and oriented x3, able to communicate needs. pt report 07/07 pain, medicated per JAN. Pt incontinent of bowel and bladder, incontinent care provided. Patient appear to be resting in bed at this time. Vital signs stable, Safety checks completed, bed in lowest position, bed alarm on, Call giraldo within reach. See biophysical assessment. wound care completed per order. . Discharge Information Rehabilitation Discharge : Rehab Discharge Index 07/28/2023 10:36 EDT Comments on treatment indicated 68 M c chronic R shoulder septic arthritis, L humeral fx, COPD, and FTT. NWB B UE. Skilled PT for bed to chair transfers, strength, balance, safety. Rec rehab Distance pt will ambulate > 5 feet Full chart review completed Yes Hospital course Hospital course Other findings see comment Plan of care PT Gait training, Transfer training, Therapeutic exercise, Functional Activities, Balance training, Neuromuscular education * Sherron AMAYA, [facility]: PERFORM Event Display: Progress Note Hospital Authored Date: Patient: ??ANT BRUMFIELD ? Age:??68 Years?Sex:??Male?:??1955?? Subjective Seen this morning C/o of shoulder pain and hemoptysis but no blood seen by staff Spoke to him this morning and says he is not safe for discharge. Spoke to son Nehemias this morning who initially said he was at home but then he did not tack picker phone Home wellness check to be done by . ?? Review of Systems +right soulder pain Objective Measurements?? Height: 183 cm (07/31/23) Weight: 60.5 kg (07/28/23) Dry Weight: 60.5 kg (07/28/23) Body Mass Index:??18.07 kg/m2??Low (07/28/23) ? Vital Signs?? Temperature: 100.3 DegF (07/31/23 11:19:00) Temperature Route: Oral (07/31/23 11:19:00) Pulse Rate:??97 bpm??High (07/31/23 11:19:00) Respiratory Rate: 18 br/min (07/31/23 15:43:00) Respiratory Rate: 18 br/min (07/31/23 15:43:00) Systolic Blood Pressure: 127 mm Hg (07/31/23 11:19:00) Diastolic Blood Pressure: 70 mm Hg (07/31/23 11:19:00) Blood pressure sites: Arm, right (07/31/23 11:19:00) Mean Arterial Pressure: 89 mm Hg (07/31/23 11:19:00) Pulse Pressure: 57 mm Hg (07/31/23 11:19:00) Oxygen Saturation:??89 %??Low (07/31/23 11:19:00) Liters per Minute: 4 L/min (07/31/23 11:19:00) Mode of Delivery (Oxygen): Nasal cannula (07/31/23 11:19:00) Early Warning Score: 3 (07/31/23 16:28:32) ? Physical Exam General: elderly maleing in bed, in no acute distress;??AAOx3 Neck: Supple, no JVD HEENT: oral membranes moist Heart: regular rhythm, S1 and S2 heard, no MRGs Lungs: CTA bilaterally, no rales, rhonchi, wheezing or rubs. Patient not in respiratory distress Abdomen: soft, non-tender, non-distended, +BS in all quadrants. No organomegaly Extremities: right shoulder dressing noted; Neuro: speaking in full sentences, CN 2-12 grossly intact Psych: appropriate mood, calm, cooperative _ Inpatient Medications Medications (25) Active SCHEDULED: (15) Albuterol/Ipratropium Inhalation Marilin 3mL [...] tablet) ??325 mg, By Mouth, Daily Gabapentin 400 mg Capsule (gabapentin 400 mg oral capsule) ??800 mg, By Mouth, 3 times a day Isosorbide Dinitrate 20 mg Tablet (isosorbide dinitrate 20 mg oral tablet) ??30 mg, By Mouth, 2 times a day Metoprolol 25 mg XL Tablet (Metoprolol Succinate ER 25 mg oral tablet, extended release) ??25 mg, By Mouth, Daily NaCl 0.9% Flush 3ml (NaCL 0.9% Flush) ??3 mL, IV Push, Every 8 hours PredniSONE 5 mg Tablet (predniSONE 5 mg oral tablet) ??15 mg, By Mouth, Daily Roflumilast 500 mcg [...] ??650 mg, By Mouth, Every 4 hours Dextromethorphan-Guaifenesin 20 [...] IR Tablet (oxyCODONE 5 mg oral tablet) ??5 mg, By Mouth, Every 6 hours Polyethylene Glycol 17 Gm Powder (MiraLax Powder) ??17 Gm 1 pack/packet, By Mouth, Daily Senna 8.6 mg / Docusate 50 mg tablet (Docusate/Senna Tablet) ??1 tablet, By Mouth, 2 times a day Simethicone 80 mg Chewable Tablet (Simethicone Tablet) ??80 mg, Chew, 3 times a day Sodium Chloride 0.65% Nasal [place] (Salinex [place]) ??1 sprays, Naris, Left, 4 times a day ? 72 Hour Antibiotic History Active Antibiotics Calendar Day Last Administered First Administered Sulfamethoxazole/Trimethoprim??1 tablet, By Mouth, 2 times a day ?4 07/31/2023 10:17 07/28/2023 07:46 ? Results Recent Labs BLOOD COUNT & DIFF WBC 11.6 k/mm3 (High)?? 07/30/2023 02:01 RBC 3.25 m/mm3 (Low)?? 07/30/2023 02:01 Hgb 8.8 Gm/dL (Low)?? 07/30/2023 02:01 Hct 28.9 % (Low)?? 07/30/2023 02:01 MCV 88.9 femtoliters ()?? 07/30/2023 02:01 MCH 27.1 pg ()?? 07/30/2023 02:01 MCHC 30.4 g/dL (Low)?? 07/30/2023 02:01 Platelet Count 379 k/mm3 ()?? 07/30/2023 02:01 RDW-SD 54.8 femtoliters (High)?? 07/30/2023 02:01 MPV 9.3 femtoliters (Low)?? 07/30/2023 02:01 Nucleated RBC (Automated) 0.0 #/100 WBC'S ()?? 07/30/2023 02:01 Abs. NRBC 0.0 k/mm3 ()?? 07/30/2023 02:01 ?? CHEM GENERAL Sodium 136 mmol/L ()?? 07/30/2023 02:01 Potassium 4.3 mmol/L ()?? 07/30/2023 02:01 Chloride 94 mmol/L (Low)?? 07/30/2023 02:01 Bicarbonate Level 30 mmol/L (High)?? 07/30/2023 02:01 Anion Gap 12 ()?? 07/30/2023 02:01 Glucose Level 95 mg/dL ()?? 07/30/2023 02:01 BUN 23 mg/dL ()?? 07/30/2023 02:01 Creatinine-Blood 0.8 mg/dL ()?? 07/30/2023 02:01 Estimated GFR Creatinine 97 ML/MIN/1.73 M2 ()?? 07/30/2023 02:01 Calcium 8.9 mg/dL ()?? 07/30/2023 02:01 Phosphorus 3.8 mg/dL ()?? 07/30/2023 02:01 Magnesium 2.0 mg/dL ()?? 07/30/2023 02:01 ?? URINE OTHER Est Creatinine Clearance 77.73 mL/min ()?? 07/30/2023 03:36 ? Assessment/Plan Mr. Brumfield is a 67-year-old male with past medical history of COPD on chronic steroids, chronichypoxic respiratory failure on 4 L O2, CAD status post stent in 1999 and 12/2006, severe peripheral vascular disease with history of femoral-popliteal and left femoral enterectomy surgeries, recent right shoulder MRSA septic arthritis with multiple recent hospitalizations for pain management who presented to the emergency room for right shoulder pain abdominal pain and shortness of breath. He has not followed up with [facility] outpatient and was advised to do so. He is currently on chronic suppressive Bactrim. Unfortunately is not a candidate to go home with services due to insurance policies. He is hemodynamically stable and ready for discharge. ? Right shoulder pain -Patient was discharged on oxycodone, but continued to have pain, was not able to function at home,hence came to the ED. ?? Recommendations: ??-We will prescribe short??course of oxycodone ?Continue??Tylenol, gabapentin, duloxetine, Lidoderm patch ??? Follow-up with??[facility] ?? 07/31: Spoke to him this morning and says he is not safe for discharge. Spoke to son Nehemias this morning who initially said he was at home but then he did not tack picker phone Home wellness check to be done by MERYL. ? Septic arthritis -Patient had recent right shoulder septic arthritis, recently discharged with recommendation to continue Bactrim lifelong. -Patient complained of increased discharge, but bedside examination did not reveal so. In the ED, patient received vancomycin and Zosyn, discontinued as no acute infection noted. Patient afebrile,??mild leukocytosis 13??possibly due to prednisone. ?? Recommendations: ??-Continue home Bactrim, pain management ??-Please f/u with??Blood cultures ? COPD without exacerbation?-Patient has history of COPD, uses 4 L O2 at home. ??-No evidence of exacerbation ??-Continue home inhalers and nebs, chronic prednisone 15 mg once daily, continue home Roflumilast. ? Pancreatic lesion -Patient presented with mild abdominal pain, CT A/P showed increasing pancreatic head mass which may be IPMN versus adenocarcinoma, recommended to get MRI pancreas for further evaluation. -MRI showed??9 cm lobular cyst in the head of the pancreas. A similar-appearing, but smaller 2.7 cmcyst is seen in the tail of the pancreas. 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 Top normal pancreatic duct diameter of 0.4 cm. MRI in one year is recommended per ACR White Paper Guidelines on incidental pancreatic cysts to assess for progression/regression. ?? Recommendations: ?Follow-up with??repeat MRI in 1 year ?? Chronic/stable medical conditions: CAD with stents:??Continue metoprolol succinate 25 mg daily??isosorbide dinitrate, atorvastatin [place] Fx:??Left humerus radiograph from 07/16 shows healing left proximal humerus fracture. Follow-up??with [facility] History of DVT:??Continue??home Eliquis 5 mg twice daily ?? OMN: placement * Ion Peralta RN: VERIFY, PERFORM, SIGN Event Display: Progress Note Hospital Authored Date: Patient: ANT BRUMFIELD Age: 68 years Sex: Male : 1955 Associated Diagnoses: None Author: Ion Peralta RN Findings Problem Related to Alteration in Integumentary : Alteration in Integumentary/new 07/31/2023 9:00 EDT Alteration in Integumentary Related to Unstageable Goals & Outcomes, Integumentary Wound will progress towards healing Interventions, Integumentary Consult Wound Care as needed for further interventions, Encourage & assist pt to change position frequently, Keep linen clean, dry and wrinkle free, Keep skin clean & dry, Maintain sterile technique with dressing changes, Monitor reddened areas for continued or i ncreasing reddness, Teach Pt/caregiver s/s of infection BH Goals/Interventions, Integumentary Yes Integumentary, Problem Start 07/31/2023 9:00 Reviewed plan with, Integumentary Patient Patient Progression, Integumentary Pt progressing according to plan . Evaluation alteration in integumentary 2nd to R shoulder unstagable wound. wound care completed per order. pt's pain treated pharmacologically. pt educated on how to change wound dressing at home, and what s/s of infection to look for. continue to assess wound for s/s of increased infection. . Discharge Information Case Management Discharge Plan : Case Management Discharge Plan Data 07/26/2023 17:30 EDT Discharge Level of Care at Discharge Home/Correction/Foster Care Rehabilitation Discharge : Rehab Discharge Index 07/28/2023 10:36 EDT Comments on treatment indicated 68 M c chronic R shoulder septic arthritis, L humeral fx, COPD, and FTT. NWB B UE. Skilled PT for bed to chair transfers, strength, balance, safety. Rec rehab Distance pt will ambulate > 5 feet Full chart review completed Yes Hospital course Hospital course Other findings see comment Plan of care PT Gait training, Transfer training, Therapeutic exercise, Functional Activities, Balance training, Neuromuscular education Note * Sherron AMAYA, [place]: PERFORM, MODIFY Event Display: Discharge/Transfer Note Hospital Authored Date: Patient: ??ANT BRUMFIELD ? Age:??68 Years?Sex:??Male?:??1955?? Patient Information Discharge Location: S2 Primary Care Physician: Jose LEE MD, Jorge Tsang Admit Date/Time: 07/28/23 00:51 Discharge Disposition Discharge Disposition: Home: No Services Discharge Diagnosis Right shoulder pain chronic septic arthritis of right shoulder COPD without exacerbation?? Pancreatic lesion CAD in [place] artery (I25.10) Fracture of left humerus (S42.302A) History of DVT of lower extremity (Z86.718) ?? _ Discharge Medications Acetaminophen (acetaminophen 325 [...] to give the dose of NARCAN Nasal [place]. Remove t... nalOXONE (Narcan 4 mg/0.1 mL nasal spray)?4?Milligram?Nares, Both?Once Oxycodone (oxyCODONE 5 mg oral tablet)?5?Milligram?By Mouth?Every 6 hours?as needed?Pain , Moderate Pantoprazole (Protonix 40 mg oral delayed release tablet)?1?tab(s)?40?Milligram?By Mouth?Daily PredniSONE (predniSONE 5 mg oral tablet)?3?tab(s)?15?Milligram?By Mouth?Daily?for 30?Days?15 mg daily maintanence dose after the initial taper roflumilast (roflumilast 500 mcg oral tablet)?1?tab(s)?500?Microgram?By Mouth?Daily Sodium Chloride Nasal ([place] Saline 0.65% nasal gel)?1?spray(s)?Nares, Both?4 times a [...] 24 hours ? Quality Measures Tobacco Use Treatment:??counselled extensively regarding smoking cessation ? Medications Started Oxycodone 5 mg q6hr for pain Medications Discontinued None Doses Changed None PCP Follow-Up/Heads-Up Please follow-up with patient's right shoulder pain with hx of septic arthritis - patient needs to see [facility] outpatient. Please f/u with pancreatic lesion found on Imaging Future Appointments 2022 9:30 AM EST ?? With: Kelly FREEMAN, Moni Casey Where: [facility] [address] [place] [address] Drive [address] [place] [address]- Status: Pending Hospital Course Discharge: patient has had multiple admission for these complaints ?? Mr. Brumfield is a 67-year-old male with past medical history of COPD on chronic steroids, chronichypoxic respiratory failure on 4 L O2, CAD status post stent in 1999 and 12/2006, severe peripheral vascular disease with history of femoral-popliteal and left femoral enterectomy surgeries, recent right shoulder MRSA septic arthritis with multiple recent hospitalizations for pain management who presented to the emergency room for right shoulder pain abdominal pain and shortness of breath. He has not followed up with [facility] outpatient and was advised to do so. He is currently on chronic suppressive Bactrim. Unfortunately is not a candidate to go home with services due to insurance policies. He is hemodynamically stable and ready for discharge. ? Right shoulder pain -Patient was discharged on oxycodone, but continued to have pain, was not able to function at home,hence came to the ED. ?? Recommendations: ??-We will prescribe short??course of oxycodone ?Continue??Tylenol, gabapentin, duloxetine, Lidoderm patch ??? Follow-up with??[facility] As per CM note: PT recommends rehab but he has no [facility] benefit left and he is unable to pay out of pocket. We are unable to arrange vna due to no pcp. ? Septic arthritis -Patient had recent right shoulder septic arthritis, recently discharged with recommendation to continue Bactrim lifelong. -Patient complained of increased discharge, but bedside examination did not reveal so. In the ED, patient received vancomycin and Zosyn, discontinued as no acute infection noted. Patient afebrile,??mild leukocytosis 13??possibly due to prednisone. ?? Recommendations: ??-Continue home Bactrim, pain management. ? COPD without exacerbation?-Patient has history of COPD, uses 4 L O2 at home. ??-No evidence of exacerbation ??-Continue home inhalers and nebs, chronic prednisone 15 mg once daily, continue home Roflumilast. ? Pancreatic lesion -Patient presented with mild abdominal pain, CT A/P showed increasing pancreatic head mass which may be IPMN versus adenocarcinoma, recommended to get MRI pancreas for further evaluation. -MRI showed??9 cm lobular cyst in the head of the pancreas. A similar-appearing, but smaller 2.7 cmcyst is seen in the tail of the pancreas. 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 Top normal pancreatic duct diameter of 0.4 cm. MRI in one year is recommended per ACR White Paper Guidelines on incidental pancreatic cysts to assess for progression/regression. ?? Recommendations: ?Follow-up with??repeat MRI in 1 year ?? Chronic/stable medical conditions: CAD with stents:??Continue metoprolol succinate 25 mg daily??isosorbide dinitrate, atorvastatin [place] Fx:??Left humerus radiograph from 07/16 shows healing left proximal humerus fracture. Follow-up??with [facility] History of DVT:??Continue??home Eliquis 5 mg twice daily ? Objective Assessment and Plan ? Vital Signs?? Temperature: 97.9 DegF (08/01/23 11:45:00) Temperature Route: Oral (08/01/23 11:45:00) Pulse Rate: 84 bpm (08/01/23 11:45:00) Respiratory Rate: 17 br/min (08/01/23 11:45:00) Systolic Blood Pressure: 118 mm Hg (08/01/23 11:45:00) Diastolic Blood Pressure: 63 mm Hg (08/01/23 11:45:00) Blood pressure sites: Arm, right (08/01/23 11:45:00) Mean Arterial Pressure: 81 mm Hg (08/01/23 11:45:00) Pulse Pressure: 55 mm Hg (08/01/23 11:45:00) Oxygen Saturation: 97 % (08/01/23 11:45:00) Liters per Minute: 4 L/min (08/01/23 11:45:00) Mode of Delivery (Oxygen): Nasal cannula (08/01/23 11:45:00) Early Warning Score: 2 (08/01/23 11:48:55) ? . Physical Exam General: elderly maleing in bed, in no acute distress;??AAOx3 Neck: Supple, no JVD HEENT: oral membranes moist Heart: regular rhythm, S1 and S2 heard, no MRGs Lungs: CTA bilaterally, no rales, rhonchi, wheezing or rubs. Patient not in respiratory distress Abdomen: soft, non-tender, non-distended, +BS in all quadrants. No organomegaly Extremities: right shoulder dressing noted; Neuro: speaking in full sentences, CN 2-12 grossly intact Psych: appropriate mood, calm, cooperative Patient Education Titles Understanding Sepsis?? Sepsis?? Complementary Care for Pain?? Shoulder Clock Exercise?? Medicine for Pain?? Follow-Up Appointments Added Follow Up ?Time Frame ?Comments [facility] Jorge Garcia III, MD?Within two weeks Patient Instructions You were admitted to the hospital for concern about your right shoulder pain. You have been treatedwith pain medications but need to follow-up outpatient with [facility] to address your chronic shoulder pain. Please continue your bactrim (antibiotic). We have prescribed you a short course of oxycodone to help with your shoulder pain. Please follow-up with your PCP in 1-2 weeks. ?? Medications Started: Oxycodone 5 mg every 6 hours as needed for pain Medications Stopped: None Medication Doses Changed: none Post Discharge Care Discharge ?08/01/23 9:59:00 EDT Discharge Prescriptions ?Written, ??07/30/23 11:09:00 EDT Home Health Face to Face ^[facility] Results Discharge Labs BLOOD COUNT & DIFF WBC 11.6 k/mm3 (High)?? 07/30/2023 02:01 RBC 3.25 m/mm3 (Low)?? 07/30/2023 02:01 Hgb 8.8 Gm/dL (Low)?? 07/30/2023 02:01 Hct 28.9 % (Low)?? 07/30/2023 02:01 MCV 88.9 femtoliters ()?? 07/30/2023 02:01 MCH 27.1 pg ()?? 07/30/2023 02:01 MCHC 30.4 g/dL (Low)?? 07/30/2023 02:01 Platelet Count 379 k/mm3 ()?? 07/30/2023 02:01 RDW-SD 54.8 femtoliters (High)?? 07/30/2023 02:01 MPV 9.3 femtoliters (Low)?? 07/30/2023 02:01 Nucleated RBC (Automated) 0.0 #/100 WBC'S ()?? 07/30/2023 02:01 Abs. NRBC 0.0 k/mm3 ()?? 07/30/2023 02:01 Abs. Neut 7.5 k/mm3 (High)?? 07/27/2023 13:35 Abs. Lymph 1.1 k/mm3 ()?? 07/27/2023 13:35 Abs. [place] 1.3 k/mm3 ()?? 07/27/2023 13:35 Abs. Eo 0.2 k/mm3 ()?? 07/27/2023 13:35 Abs. Baso 0.1 k/mm3 ()?? 07/27/2023 13:35 Neut % 70.7 % ()?? 07/27/2023 13:35 Lymph % 10.4 % (Low)?? 07/27/2023 13:35 [place] % 11.7 % (High)?? 07/27/2023 13:35 Eos % 1.5 % ()?? 07/27/2023 13:35 Baso % 0.8 % ()?? 07/27/2023 13:35 Hemoglobin (POC) POC Cartridge 11.6 Gm/dL (Low)?? 07/27/2023 20:00 Hematocrit (POC) POC Cartridge 34 % (Low)?? 07/27/2023 20:00 Imm Gran 4.9 % ()?? 07/27/2023 13:35 Abs. Imm Gran 0.5 k/mm3 ()?? 07/27/2023 13:35 ?? BLOOD GAS pH Venous (POC) POC Cartridge 7.64 (High)?? 07/27/2023 20:00 pCO2 Venous (POC) POC Cartridge 29.7 mm Hg (Low)?? 07/27/2023 20:00 pO2 Venous (POC) POC Cartridge 179 mm Hg (High)?? 07/27/2023 20:00 Est Bicarbonate (POC) POC Cartridge 32.3 mmol/L (High)?? 07/27/2023 20:00 % O2 Sat Venous (POC) POC Cartridge 100 ()?? 07/27/2023 20:00 Base Excess (POC) POC Cartridge 11 ()?? 07/27/2023 20:00 Specimen Type - Blood Gas VENOUS ()?? 07/27/2023 20:00 ? CARDIAC Nt-Probnp 284 pg/mL (High)?? 07/27/2023 19:32 High Sensitivity Troponin (HSTnT) HEMOLYZED ng/L ()?? 07/27/2023 19:32 ?? CHEM GENERAL Sodium 136 mmol/L ()?? 07/30/2023 02:01 Potassium 4.3 mmol/L ()?? 07/30/2023 02:01 Chloride 94 mmol/L (Low)?? 07/30/2023 02:01 Bicarbonate Level 30 mmol/L (High)?? 07/30/2023 02:01 Anion Gap 12 ()?? 07/30/2023 02:01 Sodium (POC) POC Cartridge 135 mmol/L ()?? 07/27/2023 20:00 Potassium (POC) POC Cartridge 4.1 mmol/L ()?? 07/27/2023 20:00 Glucose Level 95 mg/dL ()?? 07/30/2023 02:01 Glucose (POC) POC Cartridge 72 ()?? 07/27/2023 20:00 Glucose, POC 85 mg/dL ()?? 07/27/2023 18:45 BUN 23 mg/dL ()?? 07/30/2023 02:01 Creatinine-Blood 0.8 mg/dL ()?? 07/30/2023 02:01 Estimated GFR Creatinine 97 ML/MIN/1.73 M2 ()?? 07/30/2023 02:01 Calcium 8.9 mg/dL ()?? 07/30/2023 02:01 Ionized Calcium (POC) POC Cartridge 0.94 mmol/L (Critical)?? 07/27/2023 20:00 Phosphorus 3.8 mg/dL ()?? 07/30/2023 02:01 Magnesium 2.0 mg/dL ()?? 07/30/2023 02:01 Protein, Total 5.5 Gm/dL (Low)?? 07/29/2023 00:46 Albumin 3.3 Gm/dL (Low)?? 07/29/2023 00:46 AG Ratio 1.8 ()?? 07/27/2023 13:35 Alkaline Phosphatase 193 units/L (High)?? 07/29/2023 00:46 Lipase 19 units/L ()?? 07/27/2023 13:35 AST (SGOT) 14 units/L ()?? 07/29/2023 00:46 ALT (SGPT) 18 units/L ()?? 07/29/2023 00:46 Bilirubin, Total <0.2 mg/dL ()?? 07/29/2023 00:46 Bilirubin, Direct <0.2 mg/dL ()?? 07/29/2023 00:46 Bilirubin, Indirect Total bilirubin is less than the measureable limit. Therefore, indirect mg/dL ()?? 07/29/2023 00:46 Lactate 0.9 mmol/L ()?? 07/27/2023 13:35 C-Reactive Protein 8.6 mg/dL (High)?? 07/27/2023 19:32 ? ENDOCRINE/TUMOR MARKER CA19-9 19 U/mL ()?? 07/29/2023 00:46 ? HEME OTHER Sed Rate 100 mm/hr (High)?? 07/27/2023 19:32 Hold Blue Top SPECIMEN DISCARDED AFTER 4 HOURS. ()?? 07/27/2023 13:35 ?? UA/URINALYSIS Appear/Color, Urine YELLOW ()?? 07/27/2023 18:26 Specific [place], Urine >1.050 (High)?? 07/27/2023 18:26 pH, Urine 5.5 ()?? 07/27/2023 18:26 Albumin, Urine 1+ (Abnormal)?? 07/27/2023 18:26 Glucose, Urine NEGATIVE ()?? 07/27/2023 18:26 Ketones, Urine NEGATIVE ()?? 07/27/2023 18:26 Bilirubin, Urine NEGATIVE ()?? 07/27/2023 18:26 Hemoglobin, Urine 1+ (Abnormal)?? 07/27/2023 18:26 Nitrite, Urine NEGATIVE ()?? 07/27/2023 18:26 Leukocyte, Urine TRACE (Abnormal)?? 07/27/2023 18:26 Urobilinogen NORMAL mg/dL ()?? 07/27/2023 18:26 WBC's, Urine 2 /HPF ()?? 07/27/2023 18:26 RBC's, Urine 7 /HPF (High)?? 07/27/2023 18:26 Bacteria SLIGHT HPF (Abnormal)?? 07/27/2023 18:26 Squamous Epith 1 /HPF ()?? 07/27/2023 18:26 Hyaline Cast 2 LPF ()?? 07/27/2023 18:26 Mucus SLIGHT /LPF ()?? 07/27/2023 18:26 Hold Urine Culture Testing available 48 hours from time of collection. ()?? 07/27/2023 18:26 ?? URINE OTHER Est Creatinine Clearance 77.73 mL/min ()?? 07/30/2023 03:36 ? VIROLOGY COVID-19 by RT-PCR NEGATIVE ()?? 07/27/2023 19:23 ? 33??minutes spent on discharge [1]??Progress Note; Mario Siu MDhif 07/31/2023 16:32 EDT * Gwen Esquivel RN: PERFORM Event Display: Discharge/Transfer Note Hospital Authored Date: [id number] Nursing Discharge Note Entered On: 08/01/2023 10:56 EDT Performed On: 08/01/2023 10:55 EDT by Gwen Esquivel RN Nursing Discharge Note 2 Discharge Time : 08/01/2023 13:40 EDT Did Pt have Specialty Bed or Wound Vac : No Gwen Esquivel RN - 08/01/2023 13:54 EDT Discharge Level of Care at Discharge : Home/Correction/Foster Care Gwen Esquivel RN - 08/01/2023 13:28 EDT Patient Left Unit Via : Ambulance Patient Accompanied Off Unit with : Ambulance/[facility] Personnel Handover Given to Transport Personnel : Yes DC Instructions Provided & Signed by Pt : Yes Patient Understands D/C Instructions : Yes Patient Instructions Discharge Signed : Yes Gwen Esquivel RN - 08/01/2023 10:55 EDT * Gwen Esquivel RN: PERFORM Event Display: Patient Education Leaflets Authored Date: [id number] Understanding Sepsis ?? 87642 Understanding Sepsis Sepsis is a life-threatening problem that affects your organs. It can happen if you have a severe infection. It's most often caused by bacteria. It ranges in severity from sepsis to severe sepsis to septic shock. All of these are a medical emergency. They need to be treated right away. What is sepsis? Sepsis is when the body reacts to an infection with severe inflammation. It can be caused by bacteria, fungus, or a virus. Sepsis can cause many kinds of problems in the body. It can lead to severe low blood pressure (shock). It can cause organ failure. This can lead to if not treated. Sepsis is most common in: ??? Adults 65 years and older ??? Patients in an intensive care unit (ICU) ??? People who have a central venous line or urinary catheter ??? People with a blood infection (bacteremia), pneumonia, meningitis, or a urinary tract infection ??? People with some cancers, diabetes, or long- term kidney or liver disease ??? People with immune system diseases, such as HIV or AIDS??? People who had an organ transplant or bone marrow or stem cell transplant ??? People taking medicines that affect the immune system ??? People being treated with chemotherapy, steroid medicines, or radiation ??? People with severe injuries, including santizo ?? Symptoms of sepsis Symptoms of sepsis can include: ??? Chills and shaking ??? High fever ??? Low blood pressure ??? Fast heartbeat ??? Fast breathing ??? Shortness of breath ??? Severe nausea or uncontrolled vomiting ??? Confusion ??? Not able to be awake or aware (coma) ??? Dizziness ??? Less urination ??? Severe pain, including in the back or joints? Diagnosing sepsis If your healthcare provider thinks you may have sepsis, you will be admitted to the hospital. You will have tests. You may have blood and urine tests. You may have cultures and other tests to look for the cause of the sepsis. These tests look for bacteria, viruses, and fungus. Other tests may checkfor problems with your organs. You may have X-rays or other imaging tests. These may be done to look at your organs to find the source of infection. ?? Treating sepsis All forms of sepsis are a medical emergency. They must be treated in the hospital, often in the intensive care unit (ICU). If you have sepsis, your healthcare provider will give you antibiotics through a thin, flexible tube (IV). This is put into a vein in your arm or other area in your body. You will be given a large amount of fluids through the IV. You may be given nutrition or medicines through your IV. Your healthcare provider will talk with you about other treatments you may need. These may include an oxygen mask or a ventilator to help you breathe. This may include medicine that raises your bloodpressure. You might need dialysis for kidney failure. Treatment may last at least 7 to 10 days. Even with a lot of treatment, sepsis can lead to . ?? Last Reviewed Date: 2023 ?? [employer]. All rights reserved. This information is not intended as a substitute for professional medical care. Always follow your healthcare professional's instructions. ?? * Gwen Esquivel RN: PERFORM Event Display: Patient Education Leaflets Authored Date: [id number] Sepsis ?? 60396 Sepsis Sepsis is a very serious condition. It happens when your body responds with widespread inflammationto a severe infection, usually caused by bacteria. Sometimes it may be caused by a virus. Sepsis can be deadly. Blood pressure may drop. The lungs, liver, and kidneys may start to fail. Sepsis is a medical emergency. If someone has symptoms of sepsis, call 911 right away. Risk factors Those most at risk for sepsis are: ??? Infants or older adults ??? People who have an illness that weakens their immune system,??such as cancer, AIDS, or diabetes ??? People being treated with chemotherapy medicines, high-dose steroids, or radiation, which weaken the immune system ??? People who have had an organ transplant ??? People with long-term (chronic) lung, kidney, liver, or heart disease??? People with a very severe infection, such as pneumonia, meningitis, or a urinary tract infection ?? When to call 911 Sepsis is a medical emergency. Call 911 right away if you have a fever with any of these symptoms: ??? Chills and shaking ??? Fast heartbeat and breathing ??? Trouble breathing ??? Severe nausea or uncontrolled vomiting ??? Confusion, disorientation, drowsiness, or dizziness ??? Decreased urination??? Severe pain, including in the back or joints? What to expect in the emergency room To treat sepsis, antibiotics and fluids may by given through an intravenous (IV) line. ??? Blood and urine tests are done to look for bacteria. They also check for organ failure. ??? Blood, urine, or sputum cultures may be taken. The samples are sent to a lab. They are placed in a special container. Any bacteria should grow in 24 to 48 hours. ??? X-rays or other imaging tests may be done. A person with sepsis will be admitted to the hospital and treated with antibiotics. Treatment will also include oxygen and IV (intravenous) fluids and other medicines as needed. The person will be watched very closely, usually in the intensive care unit (ICU). ?? Last Reviewed Date: 2023 ?? [employer]. All rights reserved. This information is not intended as a substitute for professional medical care. Always follow your healthcare professional's instructions. ?? * Mary Gauthier MD: MODIFY, PERFORM Event Display: Discharge/Transfer Note Hospital Authored Date: Patient: ??ANT BRUMFIELD ? Age:??68 Years?Sex:??Male?:??1955?? Patient Information Discharge Location: S2 Primary Care Physician: Jorge Garcia III, MD Admit Date/Time: 07/28/23 00:51 Discharge Disposition Discharge Disposition: Home: No Services Discharge Diagnosis CAD in [place] artery (I25.10) COPD without exacerbation (J44.9) Fracture of left humerus (S42.302A) History of DVT of lower extremity (Z86.718) Pancreatic lesion (K86.9) Right shoulder pain (M25.511) Septic arthritis (M00.9) ?? _ Discharge Medications Acetaminophen (acetaminophen 325 [...] to give the dose of NARCAN Nasal [place]. Remove t... nalOXONE (Narcan 4 mg/0.1 mL nasal spray)?4?Milligram?Nares, Both?Once Oxycodone (oxyCODONE 5 mg oral tablet)?5?Mill[place]?By Mouth?Every 6 hours?as needed?Pain , Moderate Pantoprazole (Protonix 40 mg oral delayed release tablet)?1?tab(s)?40?Milligram?By Mouth?Daily PredniSONE (predniSONE 5 mg oral tablet)?3?tab(s)?15?Milligram?By Mouth?Daily?for 30?Days?15 mg daily maintanence dose after the initial taper roflumilast (roflumilast 500 mcg oral tablet)?1?tab(s)?500?Microgram?By Mouth?Daily Sodium Chloride Nasal ([place] Saline 0.65% nasal gel)?1?spray(s)?Nares, Both?4 times a day Sulfamethoxazole/Trimethoprim (sulfamethoxazole-trimethoprim 800 mg-160 mg oral tablet)?160?Milligram?By Mouth?2 times a day?for 30?Days?drink plenty of fluids; ??followup with Ortho and ID before this is completed, to discuss long-term plan. May need further weeks of antibiotics. Thiamine (Vitamin B1 100 mg oral tablet)?100?Milligram?1?tablet?By Mouth?Daily umeclidinium (Incruse Ellipta 62.5 mcg/inh inhalation powder)?1?puff(s)?Inhalation?Every 24 hours Medications Started Oxycodone 5 mg q6hr for pain Medications Discontinued None Doses Changed None Allergies Allergies ?(Active and Proposed Allergies Only) naproxen? (Severity: Unknown severity, Onset: Unknown) ?Reactions: lesions on lips Toradol? (Severity: Persistent Mild, Onset: Unknown) ?Reactions: hives, Cephalexin allergy, Naproxen, Metaxalone, Morphine allergy Keflex? (Severity: Unknown severity, Onset: Unknown) ?Reactions: rash ?Comments: tolerates pip/tazo 11/17 Skelaxin? (Severity: Unknown severity, Onset: Unknown) ?Reactions: H/O: migraine ? PCP Follow-Up/Heads-Up Please follow-up with patient's right shoulder pain with hx of septic arthritis - patient needs to see [facility] outpatient. Please f/u with pancreatic lesion found on Imaging Please f/u with blood cultures Future Appointments 2022 9:30 AM EST ?? With: Kelly FREEMAN, Moni Casey Where: [facility] [address] [address] [place] [address]- Status: Pending Hospital Course Mr. Brumfield is a 67-year-old male with past medical history of COPD on chronic steroids, chronichypoxic respiratory failure on 4 L O2, CAD status post stent in 1999 and 12/2006, severe peripheral vascular disease with history of femoral-popliteal and left femoral enterectomy surgeries, recent right shoulder MRSA septic arthritis with multiple recent hospitalizations for pain management who presented to the emergency room for right shoulder pain abdominal pain and shortness of breath. He has not followed up with [facility] outpatient and was advised to do so. He is currently on chronic suppressive Bactrim. Unfortunately is not a candidate to go home with services due to insurance policies. He is hemodynamically stable and ready for discharge. ? Right shoulder pain -Patient was discharged on oxycodone, but continued to have pain, was not able to function at home,hence came to the ED. ?? Recommendations: ??-We will prescribe short??course of oxycodone ?Continue??Tylenol, gabapentin, duloxetine, Lidoderm patch ??? Follow-up with??[facility] ? Septic arthritis -Patient had recent right shoulder septic arthritis, recently discharged with recommendation to continue Bactrim lifelong. -Patient complained of increased discharge, but bedside examination did not reveal so. In the ED, patient received vancomycin and Zosyn, discontinued as no acute infection noted. Patient afebrile,??mild leukocytosis 13??possibly due to prednisone. ?? Recommendations: ??-Continue home Bactrim, pain management ??-Please f/u with??Blood cultures ? COPD without exacerbation?-Patient has history of COPD, uses 4 L O2 at home. ??-No evidence of exacerbation ??-Continue home inhalers and nebs, chronic prednisone 15 mg once daily, continue home Roflumilast. ? Pancreatic lesion -Patient presented with mild abdominal pain, CT A/P showed increasing pancreatic head mass which may be IPMN versus adenocarcinoma, recommended to get MRI pancreas for further evaluation. -MRI showed??9 cm lobular cyst in the head of the pancreas. A similar-appearing, but smaller 2.7 cmcyst is seen in the tail of the pancreas. 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 Top normal pancreatic duct diameter of 0.4 cm. MRI in one year is recommended per ACR White Paper Guidelines on incidental pancreatic cysts to assess for progression/regression. ?? Recommendations: ?Follow-up with??repeat MRI in 1 year ?? Chronic/stable medical conditions: CAD with stents:??Continue metoprolol succinate 25 mg daily??isosorbide dinitrate, atorvastatin [place] Fx:??Left humerus radiograph from 07/16 shows healing left proximal humerus fracture. Follow-up??with [facility] History of DVT:??Continue??home Eliquis 5 mg twice daily ? Objective Vital Signs?? Temperature: 99 DegF (07/30/23 08:50:00) Temperature Route: Oral (07/30/23 08:50:00) Pulse Rate: 74 bpm (07/30/23 08:50:00) Respiratory Rate: 20 br/min (07/30/23 09:52:00) Vented: No (07/30/23 08:57:00) Systolic Blood Pressure:??143 mm Hg??High (07/30/23 08:50:00) Diastolic Blood Pressure: 76 mm Hg (07/30/23 08:50:00) Blood pressure sites: Arm, left (07/30/23 08:50:00) Mean Arterial Pressure: 98 mm Hg (07/30/23 08:50:00) Pulse Pressure: 67 mm Hg (07/30/23 08:50:00) Oxygen Saturation: 100 % (07/30/23 08:50:00) Liters per Minute: 4 L/min (07/30/23 08:50:00) Mode of Delivery (Oxygen): Nasal cannula (07/30/23 08:50:00) Early Warning Score: 0 (07/30/23 10:37:59) ? . Physical Exam General??: No apparent distress, laying comfortably HEENT: Normocephalic, EOMI,??moist oral mucosa?? Cardiovascular??: RRR, S1??and S2 heard,??No M/G/R.?? Respiratory??Clear to auscultation bilaterally??no wheezes, no rales or rhonchi. Abdomen/GI??Non-distended. Normal bowel sounds. Soft, non-tender.?? Extremities No edema.??R shoulder with bandage on. Vascular??Peripheral pulsations intact, warm extremities Neurologic??no focal neurological deficits. moving all extremities spontaneously Psychiatric??Mood and Affect WNL.?? Patient Education Titles Complementary Care for Pain?? Shoulder Clock Exercise?? Medicine for Pain?? Follow-Up Appointments Added Follow Up ?Time Frame ?Comments new [facility] Jorge Garcia III, MD?Within two weeks Patient Instructions You were admitted to the hospital for concern about your right shoulder pain. You have been treatedwith pain medications but need to follow-up outpatient with [facility] to address your chronic shoulder pain. Please continue your bactrim (antibiotic). We have prescribed you a short course of oxycodone to help with your shoulder pain. Please follow-up with your PCP in 1-2 weeks. ?? Medications Started: Oxycodone 5 mg every 6 hours as needed for pain Medications Stopped: None Medication Doses Changed: none Results Discharge Labs BLOOD COUNT & DIFF WBC 11.6 k/mm3 (High)?? 07/30/2023 02:01 RBC 3.25 m/mm3 (Low)?? 07/30/2023 02:01 Hgb 8.8 Gm/dL (Low)?? 07/30/2023 02:01 Hct 28.9 % (Low)?? 07/30/2023 02:01 MCV 88.9 femtoliters ()?? 07/30/2023 02:01 MCH 27.1 pg ()?? 07/30/2023 02:01 MCHC 30.4 g/dL (Low)?? 07/30/2023 02:01 Platelet Count 379 k/mm3 ()?? 07/30/2023 02:01 RDW-SD 54.8 femtoliters (High)?? 07/30/2023 02:01 MPV 9.3 femtoliters (Low)?? 07/30/2023 02:01 Nucleated RBC (Automated) 0.0 #/100 WBC'S ()?? 07/30/2023 02:01 Abs. NRBC 0.0 k/mm3 ()?? 07/30/2023 02:01 Abs. Neut 7.5 k/mm3 (High)?? 07/27/2023 13:35 Abs. Lymph 1.1 k/mm3 ()?? 07/27/2023 13:35 Abs. [place] 1.3 k/mm3 ()?? 07/27/2023 13:35 Abs. Eo 0.2 k/mm3 ()?? 07/27/2023 13:35 Abs. Baso 0.1 k/mm3 ()?? 07/27/2023 13:35 Neut % 70.7 % ()?? 07/27/2023 13:35 Lymph % 10.4 % (Low)?? 07/27/2023 13:35 [place] % 11.7 % (High)?? 07/27/2023 13:35 Eos % 1.5 % ()?? 07/27/2023 13:35 Baso % 0.8 % ()?? 07/27/2023 13:35 Hemoglobin (POC) POC Cartridge 11.6 Gm/dL (Low)?? 07/27/2023 20:00 Hematocrit (POC) POC Cartridge 34 % (Low)?? 07/27/2023 20:00 Imm Gran 4.9 % ()?? 07/27/2023 13:35 Abs. Imm Gran 0.5 k/mm3 ()?? 07/27/2023 13:35 ?? BLOOD GAS pH Venous (POC) POC Cartridge 7.64 (High)?? 07/27/2023 20:00 pCO2 Venous (POC) POC Cartridge 29.7 mm Hg (Low)?? 07/27/2023 20:00 pO2 Venous (POC) POC Cartridge 179 mm Hg (High)?? 07/27/2023 20:00 Est Bicarbonate (POC) POC Cartridge 32.3 mmol/L (High)?? 07/27/2023 20:00 % O2 Sat Venous (POC) POC Cartridge 100 ()?? 07/27/2023 20:00 Base Excess (POC) POC Cartridge 11 ()?? 07/27/2023 20:00 Specimen Type - Blood Gas VENOUS ()?? 07/27/2023 20:00 ? CARDIAC Nt-Probnp 284 pg/mL (High)?? 07/27/2023 19:32 High Sensitivity Troponin (HSTnT) HEMOLYZED ng/L ()?? 07/27/2023 19:32 ?? CHEM GENERAL Sodium 136 mmol/L ()?? 07/30/2023 02:01 Potassium 4.3 mmol/L ()?? 07/30/2023 02:01 Chloride 94 mmol/L (Low)?? 07/30/2023 02:01 Bicarbonate Level 30 mmol/L (High)?? 07/30/2023 02:01 Anion Gap 12 ()?? 07/30/2023 02:01 Sodium (POC) POC Cartridge 135 mmol/L ()?? 07/27/2023 20:00 Potassium (POC) POC Cartridge 4.1 mmol/L ()?? 07/27/2023 20:00 Glucose Level 95 mg/dL ()?? 07/30/2023 02:01 Glucose (POC) POC Cartridge 72 ()?? 07/27/2023 20:00 Glucose, POC 85 mg/dL ()?? 07/27/2023 18:45 BUN 23 mg/dL ()?? 07/30/2023 02:01 Creatinine-Blood 0.8 mg/dL ()?? 07/30/2023 02:01 Estimated GFR Creatinine 97 ML/MIN/1.73 M2 ()?? 07/30/2023 02:01 Calcium 8.9 mg/dL ()?? 07/30/2023 02:01 Ionized Calcium (POC) POC Cartridge 0.94 mmol/L (Critical)?? 07/27/2023 20:00 Phosphorus 3.8 mg/dL ()?? 07/30/2023 02:01 Magnesium 2.0 mg/dL ()?? 07/30/2023 02:01 Protein, Total 5.5 Gm/dL (Low)?? 07/29/2023 00:46 Albumin 3.3 Gm/dL (Low)?? 07/29/2023 00:46 AG Ratio 1.8 ()?? 07/27/2023 13:35 Alkaline Phosphatase 193 units/L (High)?? 07/29/2023 00:46 Lipase 19 units/L ()?? 07/27/2023 13:35 AST (SGOT) 14 units/L ()?? 07/29/2023 00:46 ALT (SGPT) 18 units/L ()?? 07/29/2023 00:46 Bilirubin, Total <0.2 mg/dL ()?? 07/29/2023 00:46 Bilirubin, Direct <0.2 mg/dL ()?? 07/29/2023 00:46 Bilirubin, Indirect Total bilirubin is less than the measureable limit. Therefore, indirect mg/dL ()?? 07/29/2023 00:46 Lactate 0.9 mmol/L ()?? 07/27/2023 13:35 C-Reactive Protein 8.6 mg/dL (High)?? 07/27/2023 19:32 ? ENDOCRINE/TUMOR MARKER CA19-9 19 U/mL ()?? 07/29/2023 00:46 ? HEME OTHER Sed Rate 100 mm/hr (High)?? 07/27/2023 19:32 Hold Blue Top SPECIMEN DISCARDED AFTER 4 HOURS. ()?? 07/27/2023 13:35 ?? UA/URINALYSIS Appear/Color, Urine YELLOW ()?? 07/27/2023 18:26 Specific [place], Urine >1.050 (High)?? 07/27/2023 18:26 pH, Urine 5.5 ()?? 07/27/2023 18:26 Albumin, Urine 1+ (Abnormal)?? 07/27/2023 18:26 Glucose, Urine NEGATIVE ()?? 07/27/2023 18:26 Ketones, Urine NEGATIVE ()?? 07/27/2023 18:26 Bilirubin, Urine NEGATIVE ()?? 07/27/2023 18:26 Hemoglobin, Urine 1+ (Abnormal)?? 07/27/2023 18:26 Nitrite, Urine NEGATIVE ()?? 07/27/2023 18:26 Leukocyte, Urine TRACE (Abnormal)?? 07/27/2023 18:26 Urobilinogen NORMAL mg/dL ()?? 07/27/2023 18:26 WBC's, Urine 2 /HPF ()?? 07/27/2023 18:26 RBC's, Urine 7 /HPF (High)?? 07/27/2023 18:26 Bacteria SLIGHT HPF (Abnormal)?? 07/27/2023 18:26 Squamous Epith 1 /HPF ()?? 07/27/2023 18:26 Hyaline Cast 2 LPF ()?? 07/27/2023 18:26 Mucus SLIGHT /LPF ()?? 07/27/2023 18:26 Hold Urine Culture Testing available 48 hours from time of collection. ()?? 07/27/2023 18:26 ?? URINE OTHER Est Creatinine Clearance 77.73 mL/min ()?? 07/30/2023 03:36 ? VIROLOGY COVID-19 by RT-PCR NEGATIVE ()?? 07/27/2023 19:23 ? Microbiology ?? COVID-19 (Novel Coronavirus), Rapid PCR?? Completed?? Source: Nasal Body Site: Nose Collected Dt/Tm: 07/27/2023 19:04 Last Updated Dt/Tm: 07/27/2023 20:30 ?? 25??minutes spent on discharge * Berna Goyal MD: PERFORM Event Display: Discharge/Transfer Note Hospital Authored Date: Attending Attestation: I have seen and evaluated this patient on 07/30/23.?? I have discussed the case and its management with the resident and agree with the findings and plan as documented in the resident???s note. * Abrahan AMAYA, Mary: PERFORM Event Display: Discharge/Transfer Note Hospital Authored Date: Unable to discharge patient due to unsafe discharge plan, as patient does not have a means to enterhis home as he does not have the keys. States his son will be back tomorrow to be able to let him inside the house. * Gwen Esquivel RN: GETACHEW Gonzalo Rogers: PERFORM Event Display: Patient Education/Instruction Authored Date: Inpatient Adult Discharge Instructions [address] [address] Name: ANT BRUMFIELD : 1955 Visit: 07/28/2023 00:51:00 Current Date: 07/30/2023 11:11 Account: [id number] Inpatient Adult Discharge Instructions We would like [...] and their families. Surveys are administered by [employer] ?? If further treatment with your primary care physician or another doctor is recommended, it is important for you to keep the appointment. Call your primary care physician or return to the Emergency Department immediately if your condition worsens, fails to improve, or new symptoms develop. If you need to find a doctor, you can call [facility] [employer] Link for a referral at [phone] or toll free at [phone]) or log in to [email or web address].. ?? [facility], in keeping with [facility] guidance, no longer requires face masks for [...] a health care lore of your choosing. [employer] is a website that allows you to securely view your medical information including your hospital discharge summary, office visit summaries, medications and follow-up visits. You can also request appointments, renew medications, and request access to your medical information using a health care lore of your choosing, or just ask a question. You can enroll at [email or web address] or register during your next office visit. You have been discharged from [facility], Patient Care Unit: S2. If you have any questions regarding these instructions after you leave, please call us and we will be happy to assist you. [facility] Your Care Team Attending Physician Jyotsna AMAYA, Berna Naik Discharging Providers Abrahan AMAYA, Mary Reason for Admission General medical Your Diagnosis Right shoulder pain Septic arthritis COPD without exacerbation Fracture of left humerus History of DVT of lower extremity CAD in [place] artery Pancreatic lesion Tests Performed Below is a partial list of the tests performed during your hospitalization. You may have had other tests and procedures not included in this list. Please discuss all test results with your provider. BASE EXCESS POC CARTRIDGE Basic Metabolic Panel BNP BUN CA 19-9 CALCIUM IONIZED POC CART CBC CBC w/ Differential Comprehensive Metabolic Panel COVID-19 (Novel Coronavirus), Rapid PCR Creatinine CRP ESR GLUCOSE POC GLUCOSE POC CARTRIDGE HEMATOCRIT POC CARTRIDGE HEMOGLOBIN POC CARTRIDGE Hold Blue Top Tube Lactic Acid Level LFT's Lipase Lytes Magnesium Level Phosphorus Level POTASSIUM POC CARTRIDGE SODIUM POC CARTRIDGE Troponin T, High Sensitivity Urinalysis w/hold for Urine Culture VBG POC CARTRIDGE CT Abd/Pelvis W/ IV Contrast Only CT Angio Chest MRI Abdomen W+W/O Contrast Primary Care Provider Jorge Garcia III, MD Advance Directive Health Care Proxy on File Yes - Health Care Proxy Yes - MOLST Discharge Vitals Temperature: 99 DegF Height: 183 cm Pulse Rate: 74 bpm Weight: 60.5 kg Respiratory Rate: 20 br/min Body Mass Index:??18.07 kg/m2??Low Systolic Blood Pressure:??143 mm Hg??High Body surface area: 1.75 Diastolic Blood Pressure: 76 mm Hg ?? Oxygen Saturation: 100 % ?? Studies Pending All tests and labs ordered during this hospital stay have been completed unless listed below. Please discuss all pending results with your provider listed above in these instructions. ?? Blood Culture Blood Culture #2 What to do next Instructions From Your Doctor You were admitted to the hospital for concern about your right shoulder pain. You have been treatedwith pain medications but need to follow-up outpatient with [facility] to address your chronic shoulder pain. Please continue your bactrim (antibiotic). We have prescribed you a short course of oxycodone to help with your shoulder pain. Please follow-up with your PCP in 1-2 weeks. ?? Medications Started: Oxycodone 5 mg every 6 hours as needed for pain Medications Stopped: None Medication Doses Changed: none Discharge Orders Scheduled Follow-Up Appointments 2022 9:30 AM EST ?? With: Kelly FREEMAN, Moni Casey Where: [facility] [address] [place] [address] Drive [address] [place] [address]- Status: Pending You Need to Schedule the Following Appointments Follow Up with??[facility] Where: ?? Follow Up with??Jose LEE MD, Jorge Tsang When:??Within Within two weeks Where: [address] [place] [id number]- Discharge Medications ANT BRUMFIELD :1955 Visit Date:07/28/2023 Medications: Please continue your medications until treatment is completed or stopped by your provider. Medications not listed below should be discontinued. Discuss any questions related to medications with your provider. What How Much When Instructions Next Dose New Oxycodone (oxyCODONE 5 mg oral tablet) 5 Milligram Oral Every 6 hours as needed for Pain , Moderate Printed Prescription As needed Unchanged Acetaminophen (acetaminophen 325 mg oral tablet) 2 tab(s) Oral Every 4 hours as needed for as needed for fever As needed Unchanged Albuterol (albuterol 0.042% inhalation solution) 3 Milliliter Nebulized inhalation Every 4 hours 08/01/23 5pm Unchanged apixaban (Eliquis 5 mg oral tablet) 1 tab(s) Oral Twice a day Duration: 30 Days 08/01/23 9pm Unchanged Atorvastatin (atorvastatin 80 mg oral tablet) 1 tab(s) Oral Daily 08/02/23 9am Unchanged Collagenase Topical (collagenase topical 250 u/ gm ointment) See instructions Use over right shoulder wound daily ?? 07/31/23 9am Unchanged Dicyclomine (dicyclomine 10 mg oral capsule) 1 capsule Oral 4 times a day 08/01/23 5pm Unchanged Duloxetine (duloxetine 60 mg oral enteric coated capsule) 1 capsule Oral Twice a day 08/01/23 9pm Unchanged Ferrous Sulfate (ferrous sulfate 325 mg oral enteric coated tablet) 1 tab(s) Oral Daily 08/02/23 Unchanged Gabapentin (gabapentin 300 mg oral capsule) 2 capsule Oral 3 times a day 08/01/23 3pm Unchanged Guaifenesin/ Dextromethorphan (Robitussin DM Liquid) 5 Milliliter Oral Every 6 hours as needed for Cough As needed Unchanged HydrOXYzine (hydrOXYzine hydrochloride 10 mg oral tablet) 1 tab(s) Oral 3 times a day as needed for Anxiety As needed Unchanged Isosorbide Dinitrate (isosorbide dinitrate 30 mg oral tablet) 1 tab(s) Oral Twice a day 08/01/23 9pm Unchanged Lidocaine Topical (lidocaine 4% patch) Unchanged Loperamide (loperamide 2 mg oral capsule) 1 capsule Oral Every 6 hours as needed for for loose stool As needed Unchanged Melatonin 10 Milligram Oral Daily at Bedtime as needed for as needed for sleep As needed Unchanged Metoprolol (Metoprolol Succinate ER 25 mg oral tablet, extended release) 1 tab(s) Oral Daily 08/02/23 9am Unchanged Miscellaneous Rx (dx: left humeral head fracture, Right shoulder septic arthritis) See instructions Bonilla-walker ?? Unchanged nalOXONE (Narcan 4 mg/ 0.1 mL nasal spray) See instructions If concern for opioid overdose. Gently insert the tip of the nozzle into one nostril, until your fingers on either side of the nozzle are against the bottom of the person's nose. Press the plunger firmly to give the dose of NARCAN Nasal [place]. Remove the NARCAN Nasal [place] from the nostril after giving the dose. Get emergency medical help right away. ?? As needed Unchanged nalOXONE (Narcan 4 mg/ 0.1 mL nasal spray) 4 Milligram Nares, Both Once As needed Unchanged Pantoprazole (Protonix 40 mg oral delayed release tablet) 1 tab(s) Oral Daily 08/02/23 9am Unchanged PredniSONE (predniSONE 5 mg oral tablet) 3 tab(s) Oral Daily Duration: 30 Days 15 mg daily maintanence dose after the initial taper ?? 08/02/23 9am Unchanged roflumilast (roflumilast 500 mcg oral tablet) 1 tab(s) Oral Daily 08/02/23 9am Unchanged Sodium Chloride Nasal ([place] Saline 0.65% nasal gel) 1 spray(s) Nares, Both 4 times a day 08/01/23 5pm Unchanged Sulfamethoxazole/ Trimethoprim (sulfamethoxazole-trimethoprim 800 mg- 160 mg oral tablet) 160 Milligram Oral Twice a day Duration: 30 Days drink plenty of fluids; ??followup with Ortho and ID before this is completed, to discuss long-termplan. May need further weeks of antibiotics. ?? 08/01/23 9pm Unchanged Thiamine (Vitamin B1 100 mg oral tablet) 1 tab(s) Oral Daily 08/02/23 9am Unchanged umeclidinium (Incruse Ellipta 62.5 mcg/ inh inhalation powder) 1 puff(s) Inhalation Every 24 hours 08/02/23 9am Test Results Below is a partial list of the most recent Laboratory test results done prior to this discharge. You may have had other tests and procedures not included in this list. Please discuss all test resultswith your provider. Est Creatinine Clearance - 77.73 mL/min (07/30/2023) BASE EXCESS POC CARTRIDGE (07/27/2023) ???Base Excess (POC) POC Cartridge - 11 Basic Metabolic Panel (07/30/2023) ???Sodium - 136 mmol/L???Potassium - 4.3 mmol/L???Chloride - 94 mmol/L???Bicarbonate Level - 30 mmol/L???Anion Gap - 12???Glucose Level - 95 mg/dL???BUN - 23 mg/dL???Creatinine-Blood - 0.8 mg/dL???Estimated GFR Creatinine - 97 ML/MIN/1.73 M2???Calcium - 8.9 mg/dL BNP (07/27/2023) ???Nt-Probnp - 284 pg/mL BUN (07/29/2023) ???BUN - 30 mg/dL CA 19-9 (07/29/2023) ???CA19-9 - 19 U/mL CALCIUM IONIZED POC CART (07/27/2023) ???Ionized Calcium (POC) POC Cartridge - 0.94 mmol/L CBC (07/30/2023) ???WBC - 11.6 k/mm3???RBC - 3.25 m/mm3???Hgb - 8.8 Gm/dL???Hct - 28.9 %???MCV - 88.9 femtoliters???MCH - 27.1 pg???MCHC - 30.4 g/dL???Platelet Count - 379 k/mm3???RDW-SD - 54.8 femtoliters???MPV - 9.3 femtoliters???Nucleated RBC (Automated) - 0.0 #/100 WBC'S???Abs. NRBC - 0.0 k/mm3 CBC w/ Differential (07/27/2023) ???WBC - 10.6 k/mm3???RBC - 3.73 m/mm3???Hgb - 9.9 Gm/dL???Hct - 34.0 %???MCV - 91.2 femtoliters???MCH - 26.5 pg???MCHC - 29.1 g/dL???Platelet Count - 446 k/mm3???RDW-SD - 56.1 femtoliters???MPV - 8.7 femtoliters???Nucleated RBC (Automated) - 0.0 #/100 WBC'S???Abs. NRBC - 0.0 k/mm3???Abs. Neut - 7.5 k/mm3???Abs. Lymph - 1.1 k/mm3???Abs. [place] - 1.3 k/mm3???Abs. Eo - 0.2 k/mm3???Abs. Baso - 0.1 k/mm3???Neut % - 70.7 %???Lymph % - 10.4 %???[place] % - 11.7 %???Eos % - 1.5 %???Baso % - 0.8 %???Imm Gran - 4.9 %???Abs. Imm Gran - 0.5 k/mm3 Comprehensive Metabolic Panel (07/27/2023) ???Sodium - 142 mmol/L???Potassium - 4.2 mmol/L???Chloride - 100 mmol/L???Bicarbonate Level - 33 mmol/L???Anion Gap - 9???Glucose Level - 98 mg/dL???BUN - 21 mg/dL???Creatinine-Blood - 0.6 mg/dL???Estimated GFR Creatinine - 107 ML/MIN/1.73 M2???Calcium - 9.8 mg/dL???Protein, Total - 5.9 Gm/dL???[place] min - 3.8 Gm/dL???AG Ratio - 1.8???Alkaline Phosphatase - 257 units/L???AST (SGOT) - 20 units/L???ALT (SGPT) - 25 units/L???Bilirubin, Total - 0.3 mg/dL COVID-19 (Novel Coronavirus), Rapid PCR (07/27/2023) ???COVID-19 by RT-PCR - NEGATIVE Creatinine (07/29/2023) ???Creatinine-Blood - 0.9 mg/dL???Estimated GFR Creatinine - 94 ML/MIN/1.73 M2 CRP (07/27/2023) ???C-Reactive Protein - 8.6 mg/dL ESR (07/27/2023) ???Sed Rate - 100 mm/hr GLUCOSE POC (07/27/2023) ???Glucose, POC - 85 mg/dL GLUCOSE POC CARTRIDGE (07/27/2023) ???Glucose (POC) POC Cartridge - 72 HEMATOCRIT POC CARTRIDGE (07/27/2023) ???Hematocrit (POC) POC Cartridge - 34 % HEMOGLOBIN POC CARTRIDGE (07/27/2023) ???Hemoglobin (POC) POC Cartridge - 11.6 Gm/dL Hold Blue Top Tube (07/27/2023) ???Hold Blue Top - SPECIMEN DISCARDED AFTER 4 HOURS. Lactic Acid Level (07/27/2023) ???Lactate - 0.9 mmol/L LFT's (07/29/2023) ???Protein, Total - 5.5 Gm/dL???Albumin - 3.3 Gm/dL???Alkaline Phosphatase - 193 units/L???AST (SGOT) - 14 units/L? ?ALT (SGPT) - 18 units/L? ?Bilirubin, Total - <0.2 mg/dL? ?Bilirubin, Direct - <0.2 mg/dL???Bilirubin, Indirect - Total bilirubin is less than the measureable limit. Therefore, indirect Lipase (07/27/2023) ???Lipase - 19 units/L Lytes (07/29/2023) ???Sodium - 136 mmol/L???Potassium - 4.2 mmol/L???Chloride - 92 mmol/L???Bicarbonate Level - 32 mmol/L???Anion Gap - 12 Magnesium Level (07/30/2023) ???Magnesium - 2.0 mg/dL Phosphorus Level (07/30/2023) ???Phosphorus - 3.8 mg/dL POTASSIUM POC CARTRIDGE (07/27/2023) ???Potassium (POC) POC Cartridge - 4.1 mmol/L SODIUM POC CARTRIDGE (07/27/2023) ???Sodium (POC) POC Cartridge - 135 mmol/L Troponin T, High Sensitivity (07/27/2023) ???High Sensitivity Troponin (HSTnT) - HEMOLYZED Urinalysis w/hold for Urine Culture (07/27/2023) ? ?Appear/Color, Urine - YELLOW? ?Specific [place], Urine - >1.050? ?pH, Urine - 5.5? ?Albumin, Urine - 1+???Glucose, Urine - NEGATIVE???Ketones, Urine - NEGATIVE???Bilirubin, Urine - NEGATIVE???Hemoglobin, Urine - 1+???Nitrite, Urine - NEGATIVE???Leukocyte, Urine - TRACE???Urobilinogen - NORMAL???WBC's, Urine - 2 /HPF???RBC's, Urine - 7 /HPF???Bacteria - SLIGHT???Squamous Epith - 1 /HPF???Hyaline Cast - 2 LPF???Mucus - SLIGHT???Hold Urine Culture - Testing available 48 hours from time of collection. VBG POC CARTRIDGE (07/27/2023) ???pH Venous (POC) POC Cartridge - 7.64???pCO2 Venous (POC) POC Cartridge - 29.7 mm Hg???pO2 Venous(POC) POC Cartridge - 179 mm Hg???Est Bicarbonate (POC) POC Cartridge - 32.3 mmol/L???% O2 Sat Venous (POC) POC Cartridge - 100???Specimen Type - Blood Gas - VENOUS Allergies [...] Metabolic alkalosis?? Multiple fractures of ribs?? Old MD (myocardial infarction) X 3?? old Rib fractures, right 3-8?? Pulmonary cachexia due to COPD?? PVD (peripheral vascular disease)?? Smoking greater than 40 pack years?? Tobacco dependence?? Underweight?? Education Materials Below is the list of Educational Leaflet Providered with your Discharge Instructions. Complementary Care for Pain?? Shoulder Clock Exercise?? Medicine for Pain?? Valuables and Belongings I fully understand and agree that [facility] accepts no responsibility for all my [...] to send valuables and belongings home. ?? Safe envelope number: [id number] Deposit/Withdrawal: Deposit Money/Amount: [id number] Review of Valuable and Belonging List: With patient Disposition of Belongings: Other: safe envelope sent to security Date for Pt to Sign Valuables/Belongings: 07/28/23 12:17:00 ?? Other Discharge Information ?? Wound Assessment?? Wound Assessment?? Wound Location I: Shoulder, right Wound Type I: Surgical Wound I, Present on Admission: Yes Wound Location II: Lateral malleolus, left ? Pulmonary Rehab Status?? Pulmonary Rehab Discharge Status?? Respiratory Rate: 20 br/min ? Common Emergency Awareness Tips IS [...] are strongly encouraged to quit. Please call [facility] [employer] Link at [phone] or [phone] ([phone]) or log in to [email or web address] for referrals to smoking cessation programs. ?? 988 Suicide & Crisis Lifeline is available 20/06 if you or someone you know needs to find a reason to keep living. By calling 640 you'll be connected to a skilled, trained counselor at a crisis center in your area. INPATIENT DISCHARGE INSTRUCTIONS SIGNATURE PAGE ANT BRUMFIELD Location:[facility] Registration Date and Time:07/28/2023 00:51 EDT Primary Care Physician: Jose LEE MD, Jorge Tsang, Attending Physician: Jyotsna AMAYA, Berna Naik, I ANT BRUMFIELD, have received the above patient education materials/instructions and have verbalized understanding. If ambulance or transport services are being used I further acknowledge being given a choice of service. ?? If you need to contact me, please call me at this number: . Patient/Shear Grinder Operator Helper Name: Patient/Shear Grinder Operator Helper Signature: Relationship to Patient: Witness Name/Signature: Date: * Mary Gauthier MD: PERFORM Event Display: Patient Education Leaflets Authored Date: [id number] Complementary Care for Pain ?? 18371 Complementary Care for Pain You may find pain relief with complementary care. Look for a licensed or certified professional. And always tell your healthcare professional that you are using complementary care. Massage Massage can increase circulation and relaxation. This can help relieve stress and pain. ?? Biofeedback Biofeedback uses instruments to measure the body's physiological activity, like heart rate and muscle activity. This information is used to help you learn to control certain functions, such as relaxing muscles and helping reduce pain.? Chiropractic Chiropractic adjusts the spine and joints. It may help reduce back, neck, or joint pain. Chiropractic may also use mild electrical stimulation, massage, heat, or ultrasound (sound waves). ?? Acupuncture Acupuncture uses thin needles to help treat pain. The treatment may release the body???s own painkillers. ?? Distraction Distraction helps you focus on something besides pain. Try reading a book, watching a movie, or talking with family. Or visit a local attraction. ?? Meditation Meditation helps you focus on words, objects, or ideas. Doing this can calm you and decrease stress. ?? Relaxation Relaxation includes methods like listening to soothing music or relaxation tapes. You might try slow, deep breathing. Imagine a calm scene, like an ocean or mountain, as you breathe. ?? Last Reviewed Date: 2021 ?? [id number] [employer] All rights reserved. This information is not [...] Nurse Name: Sydney Zelaya Position: [facility] SN Support Member Role: Lifetime Consulting Physician Name: Judd Barahona RN Position: [facility] RN Member Role: Primary Care Nurse Name: Tayler Blackwell RN Position: [facility] RN Supv Member Role: Primary Care Nurse Name: Mag Harry RN Position: [facility] RN Member Role: Primary Care Nurse Name: An Blount RN Position: [facility] RN Supv Member Role: Primary Care Nurse Name: Guru Whitley RN Position: [facility] RN Member Role: Primary Care Nurse Name: Rebecca Whitley RN Position: [facility] RN Member Role: Primary Care Nurse Name: Marianna Ng RN Position: [facility] RN [...] Care Nurse Name: Judi Streeter RN Position: [facility] RN Member Role: Primary Care Nurse Name: Rody Carbajal RN Position: [facility] RN Member Role: Primary Care Nurse Name: Moni Dugan RN Position: [facility] RN Member Role: Primary Care Nurse Name: Jorge Garcia III, MD Position: Reference Physician Member Role: PCP Address: Address: [address] [place] [address] Name: Misty Nguyen RN Position: [facility] RN Member Role: Primary Care Nurse Name: Hetal Archer LPN Position: [facility] RN Member Role: Primary Care Nurse Name: Joyce Cobb Position: [facility] RN Member Role: Primary Care Nurse Name: Sarwat Aj RN Position: [facility] RN Member Role: Primary Care Nurse Name: César Patel RN Position: [facility] RN Member Role: [...] Care Nurse Name: Kirstin Enriquez RN Position: [facility] RN Member Role: Primary Care Nurse Name: Radha Moreno RN Position: [facility] RN Member Role: Primary Care Nurse Name: Barb Cueto RN Position: [facility] RN Member Role: [...] Care Nurse Name: Silas Brock RN Position: [facility] RN Member Role: Primary Care Nurse Name: Jade Valencia LPN Position: [facility] RN Member Role: Primary Care Nurse Name: Cooper Vyas RN Position: [facility] RN Member Role: Primary Care Nurse Name: Christi Gallardo Position: [facility] RN Member Role: Primary Care Nurse Name: Judith Rojas LPN Position: [facility] RN Member Role: Primary Care Nurse Name: Sydney Raza RN Position: [facility] RN Member Role: Primary Care Nurse Name: Josselin Manning Position: [facility] RN Member Role: Primary Care Nurse Name: Rachna Renteria RN Position: [facility] RN Member Role: [...] Member Role: Primary Care Nurse Address: Address: [address] [place] [address] Name: Concepción Hess RN Position: [facility] RN Member Role: Primary Care Nurse Name: Arminda Knox RN Position: [facility] RN Member Role: Primary Care Nurse Name: Silas Knox RN Position: [facility] ED RN W/OE and Tasks Member Role: Primary Care Nurse Name: Elham Lee RN Position: [facility] AMB Nurse Member Role: Primary Care Nurse Name: Dariana Mariee RN Position: [facility] RN Member Role: Primary Care Nurse Name: Ana María Cat RN Position: [facility] RN Member Role: Primary Care Nurse Name: Janet Pacheco RN Position: [facility] RN Member Role: Primary Care Nurse Name: Flor Holley Position: [facility] RN Member Role: Primary Care Nurse Name: Bret Aguirre RN Position: [facility] RN Member Role: Primary Care Nurse Name: Audra Martinez RN Position: [facility] RN Member Role: Primary Care Nurse Name: Aure Purcell RN Position: [facility] RN Member Role: Primary Care Nurse Name: Radha Montano RN Position: [facility] RN Member Role: Primary Care Nurse Name: Shahbaz Bobo RN Position: [facility] RN Member Role: Primary Care Nurse Name: Jimi Coley RN Position: [facility] RN Member Role: Primary Care Nurse Name: Jennifer Yin LPN Position: [facility] RN Member Role: Primary Care Nurse Name: Alina Arce RN Position: [facility] RN Member Role: Primary Care Nurse Name: Judi Krueger RN Position: [facility] RN Member Role: Primary Care Nurse Name: Magdi Patiño RN Position: [facility] RN Member Role: Primary Care Nurse Name: Kasia Lund RN Position: [facility] RN Member Role: Primary Care Nurse Name: Rachna Serrano RN Position: [facility] RN Member Role: Primary Care Nurse Name: Naveen Villalobos RN Position: [facility] RN Member Role: Primary Care Nurse Name: Radha Masterson RN Position: [facility] RN Member Role: Primary Care Nurse Name: Landy Villarreal RN Position: [facility] RN Member Role: Primary Care Nurse Name: Adria Bell RN Position: [facility] RN Member Role: Primary Care Nurse Name: Amy Larios RN Position: [facility] RN Member Role: Primary Care Nurse Name: Berna Hamm RN Position: [facility] RN Member Role: Primary Care Nurse Name: Indira Lindsey RN Position: [facility] SN RN Member Role: Primary Care Nurse Name: Rosa Elena Pope RN Position: [facility] RN Member Role: Primary Care Nurse Name: Florentino Garcia RN Position: [facility] RN Member Role: Primary Care Nurse Name: Cristel Moreno RN Position: [facility] RN Member Role: Primary Care Nurse Name: Rosa Elena De León RN Position: [facility] [employer] Assembler Member Role: Primary Care Nurse Name: Nell Lagos RN Position: [facility] RN Member Role: Primary Care Nurse Name: Rita Rodriguez RN Position: [facility] RN Member Role: Primary Care Nurse Name: Judi Hamilton RN Position: [facility] RN Member Role: [...] Care Nurse Name: Gemma Chavira RN Position: [facility] RN Member Role: [...] Care Nurse Name: Vidhi Wilkins RN Position: [facility] RN Member Role: Primary Care Nurse Name: Uriel Dumont Position: [facility] RN Member Role: Primary Care Nurse Name: Selene Vazquez RN Position: [facility] RN Member Role: Primary Care Nurse Name: César Gerber RN Position: [facility] RN Member Role: Primary Care Nurse Name: Tayler Kovacs RN Position: [facility] RN Member Role: [...] Care Nurse Name: Judi Rainey RN Position: [facility] RN Member Role: Primary Care Nurse Name: Hipolito Giles RN Position: [facility] RN Member Role: Primary Care Nurse Name: Rose Kyle RN Position: [facility] Hospital Food Tray Assembler Member Role: Primary Care Nurse Name: Ion Peralta RN Position: [facility] RN Member Role: Primary Care Nurse Name: Nida Gonsalves Position: [facility] RN Member Role: Primary Care Nurse Name: Aimee Salamanca RN Position: [facility] RN Member Role: Primary Care Nurse Name: Jacobo Caceres Position: [facility] RN Member Role: Primary Care Nurse Name: [facility] Attending Position: [facility] ED Medicine MD Name: Kalina Sofia Position: [facility] ED [facility] Member Role: Patient Care Provider Name: Tayler Pedro Position: [facility] ED RN W/OE and Tasks Member Role: Patient Care Provider Name: Teressa Dubose MD Position: [facility] Resident Member Role: Resident Address: Address: [address] [place] [address] Dept Of Anethisology [place] [address]- [place] Care Team Related Persons Name: STEVENSON HAMM Address: home [address] [address] Name: MELINA BRUMFIELD Address: home Name: GARRY BRUMFIELD Address: home [address] [address]
--- OUTSIDE RECORDS SUMMARY | 2023-08-15 20:32 | XMS_ITS | Continuity of Care Document ---
Author Name Unknown Organization [facility] Address [address] [place] [id number]- Care Team Providers Care [employer] Clerk Name Role Phone Jose LEE MD, Jorge Tsang Primary Care Physician Encounter [facility] Date(s): 01/05/20 - 05/04/20 [facility] [address] [place] [address]- Sarah Ann States Attending Physician: Cheng Marsh MD Admitting Physician: [...] 10:39:00 EST, Aerosol, Route to Pharmacy Electronically, [id number], [facility]/pharmacy #[id number], 182, cm, 12/26/19 9:43:00 EST, He[place]... [...] 1 each, 0 Refills, Maintenance, 03/24/20 22:05:00EDT, [facility]/pharmacy #[id number], Apply to right knee for pain, [...] 1 Refills, Maintenance, 04/22/20 16:34:00 EDT, Tablet, [facility]/pharmacy #[id number], 182, cm, 04/22/20 15:28:00 EDT, Height, 56.4, kg, 07/11/19 18:58:00 EDT, DryWeight Start Date: 04/22/20 Status: Ordered predniSONE 10 mg oral tablet See Instructions, 50mg x 2 days, then 40mg x 2 days, then 30mg x 2 days, then 20 mg x 2 days, then 10 mg x 2 days, # 30 tablet, 0 Refills, Acute 05/08/20 15:00:00 EDT, 05/03/20 15:00:00 EDT, [facility]/pharmacy #[id number], 182, cm, 04/22/20 15:28:00 EDT, Height,... [...] 11:15:26, Print MARTIN Number, [facility], [address] [place] [address], [id number], Constant Indicator Start Date: 03/31/07 Stop Date: [...] Multiple fractures of ribs(Confirmed) 01/06/11 Active Old [place] (myocardial infarctio n) X 3(Confirmed) Active PVD (peripheral vascular disease)(Confirmed) Active Active smoker, 1/2 upto 2 pp d X >30 years(Confirmed) Active 1Cardiac stents 1991, 1995 Social History Social History Type Response Tobacco Use: Former smoker.. Sex
--- OUTSIDE RECORDS SUMMARY | 2023-08-15 20:32 | XMS_ITS | Continuity of Care Document ---
Author Name Unknown Organization [facility] ter Address [address] [place] [id number]- Care Team Providers Care Field Sales Agent Name Role Phone Jose LEE MD, Jorge Tsang Primary Care Physician [phone] [place] [facility] [place]23 [place] 08/08/23 [facility] [address] [place] [id number]- Encounter Diagnosis Septic shock(Final) - 08/03/23 Pneumonia(Final) - 08/03/23 Acute kidney injury(Final) - 08/03/23 COVID(Final) - 08/03/23 Discharge Disposition: A-D/C Home Attending Physician: Rene Cummins MD Admitting Physician: Elmer Alcala MD Referring Physician: Not on Staff, Referring [...] virus vaccine, inactivated 1 10/14/06 Gi rox [id number] 12y+ bivalent booster vax 08/23/22 Recorded SARS-CoV-2 [...] opioid drug. Start Date: 07/02/22 Status: Ordered Killdeer Saline 0.65% nasal gel 1 sprays, Nares, Both, 4 times a day, # 22.5 Gm, 0 Refills, Maintenance, 05/12/23 15:41:00 EDT, [facility]/pharmacy #[id number], Partial fill upon patient [...] 0 Refills, Maintenance, 06/04/23 11:59:00 EDT, Ointment, [facility]/pharmacy #[id number], Partial fill upon patient [...] 5 Refills, Maintenance, 04/27/23 13:54:00 EDT, Tablet, [facility], Partial fill upon patient request if the prescription is for a schedule II opioid drug., 183, cm, 04/27/23 7:05:00... Start Date: 04/27/23 Stop Date: 10/24/23 Status: Ordered ferrous sulfate 325 mg oral enteric coated tablet 325 mg, 1, tablet, By Mouth, Daily, # 30 tablet, Refills 1, Tot. Refills 1, Maintenance, 06/04/23 12:19:00 EDT, Route to Pharmacy Electronically, [facility]/pharmacy #[id number], Partial fill upon patient requestif the prescription is for a schedule II opioid rosario... Start Date: 06/04/23 Status: Ordered gabapentin 300 mg oral capsule 600 mg, Capsule, By Mouth, 08/08/23 9:00:00 EDT Start Date: 08/08/23 Stop Date: 08/08/23 Status: Completed gabapentin 300 mg oral capsule [...] 06/04/23 11:59:00 EDT, Route to Pharmacy Electronically, [facility]/pharmacy #[id number], Partial fill upon patient request if the [...] release 25 mg, XL Tablet, By Mouth, 08/08/23 9:00:00 EDT Start Date: 08/08/23 Stop Date: 08/08/23 Status: Completed Metoprolol Succinate ER 25 mg [...] 0 Refills, Soft Stop, 07/26/23 9:12:00 EDT, [facility], Partial fill upon [...] opioid drug. Start Date: 08/04/23 Status: Ordered oxyCODONE 5 mg oral tablet 20 mg, Tablet, By Mouth, Every 4 hours, PRN for Pain , Severe, Routine, 08/05/23 18:23:00 EDT Start Date: 08/05/23 Stop Date: 08/08/23 Status: Discontinued predniSONE 5 mg oral tablet 3 tablet = 15 mg, By Mouth, Daily, 15 mg daily maintanence dose after the initial taper, # 90 tablet, 0 Refills, Maintenance, 06/08/23 13:43:00 EDT, Tablet, [facility]/pharmacy #[id number], Partial fill upon patient [...] Underweight Confirmed Active 1Cardiac stents 1991, 1995 2Problem added by Discern Expert Results Orders for Microbiology Reports Name Date Sputum Culture w/ Gram Smear 08/04/23 Blood Culture 08/03/23 Blood Culture #2 08/03/23 Microbiology Reports TEST:Sputum Culture STATUS:Auth (Verified) BODY SITE: SOURCE:ENDOTR COLLECTED DATE/TIME:08/04/23 9:00 AM Sputum Culture SPECIMEN DESCRIPTION : ENDOTRACHEAL ASPIRATE SPECIAL REQUESTS : NONE GRAM STAIN : 3+ POLYMORPHONUCLEAR LEUKOCYTES 1+ GRAM POSITIVE COCCI 2+ GRAM NEGATIVE RODS CULTURE : 3+ NORMAL ARISTEO REPORT STATUS : FINAL 08/06/2023 TEST:Blood Culture STATUS:Auth (Verified) BODY SITE: SOURCE:Blood COLLECTED DATE/TIME:08/03/23 4:48 PM Blood Culture SPECIMEN DESCRIPTION : BLOOD LT HAND SPECIAL REQUESTS : NONE CULTURE : NO GROWTH 5 DAYS. REPORT STATUS : FINAL 08/08/2023 TEST:Blood Culture, Second Order STATUS:Auth (Verified) BODY SITE: SOURCE:Blood COLLECTED DATE/TIME:08/03/23 4:23 PM Blood Culture, Second Order SPECIMEN DESCRIPTION : BLOOD NONE SPECIAL REQUESTS : NONE CULTURE : NO GROWTH 5 DAYS. REPORT STATUS : FINAL 08/08/2023 Radiology Reports * Exam Date Time Procedure Performing Provider Status 08/04/23 12:37 AM Chest Portable Ashlee Schaefer; Auth (Ve rified) Notes: (Chest Portable) Reason For Exam: Tube Placement RESULT: Chest Portable Chest Portable Reason: Tube Placement; Clinical Question(s): Tube Placement COMPARISON: 08/03/2023 and priors. FINDINGS: LINES AND TUBES: Right IJ central venous catheter appears similar in position and projects over the distal brachiocephalic vein/SVC junction. ET tube tip is 6 cm above the maribeth. Enteric tube is in appropriate position with its tip pointing towards the fundus. LUNGS AND PLEURA: No significant change in right perihilar and infrahilar interstitial opacities, favored to represent chronic pulmonary fibrosis. No pleural effusion. No pneumothorax. HEART, MEDIASTINUM AND MAMADOU: Heart is normal in size. Aorta is calcified. BONES AND SOFT TISSUES: Chronic fracture of the right posterior 3rd rib. Unchanged ORIF changes of the right 7th through 9th ribs. Unchanged appearance of loose screw seen projecting over the right 6th rib which appears to be insinuated between the ribs and the scapula on CT dated 07/27/2023. IMPRESSION: 1. Status post insertion of endotracheal and enteric tubes. 2. Otherwise, no significant change. I have personally reviewed the images and I agree with this report. WSN: [id number] Ordering Physician: Heri Arevalo Dictated By: Rene Bird MD Dictated Date/Time: 08/04/23 9:06 am Reviewed By: Zoë rFazier MD Signed By: Zoë Frazier MD Signed Date/Time: 08/04/23 9:11 am Transcribed By: BERENICE Transcribed Date/Time: 08/04/23 8:53 am * Exam Date Time Procedure Performing Provider Status 08/03/23 7:56 PM Shoulder Min 2 Views Right Vicki Alvares; Luis M (Verified) Notes: (Shoulder Min 2 Views Right) Reason For Exam: Puncture Wound RESULT: Shoulder Min 2 Views Right Shoulder Min 2 Views Right INDICATION: Hx of Present Illness: per ems pt was sob; Reason: Puncture Wound; Clinical Question(s): Osteomyelitis TECHNIQUE: AP and scapular Y views. COMPARISON: 06/14/2023 and 05/30/2023. FINDINGS: Old healed fracture distal clavicle. Surgically treated old right rib fractures. No fracture. No bone destruction or periosteal reaction. The humeral head is subluxed superiorly relative to the glenoid. This is been seen previously. Thisfinding is commonly related to cuff tear. The acromioclavicular joint is normal. There is no soft tissue calcification to suggest calcific tendinitis No gas or unexpected opaque foreign body in soft tissues. IMPRESSION: 1. No fracture, osteomyelitis, or other acute bone or joint abnormality. 2. Stable chronic findings as noted above. WSN: [id number] Ordering Physician: Laura Rcie Dictated By: Giacomo España MD Dictated Date/Time: 08/03/23 9:24 pm Reviewed By: Giacomo España MD Signed By: Giacomo España MD Signed Date/Time: 08/03/23 9:24 pm Transcribed By: BERENICE Transcribed Date/Time: 08/03/23 9:21 pm * Exam Date Time Procedure Performing Provider Status 08/03/23 5:51 PM Chest Portable Billy Alvares; Luis M (Ve rified) Notes: (Chest Portable) Reason For Exam: Line Placement RESULT: Chest Portable Chest Portable performed semi upright at 5:37pm Hx of Present Illness: per ems pt was sob; Reason: Line Placement; Clinical Question(s): Line Placement COMPARISON: Multiple prior chest x-rays, the most recent of which is dated earlier today at 08/03/23.. FINDINGS: LINES AND TUBES: Interval placement of a right IJ central venous catheter with tip near the SVC brachiocephalic junction. LUNGS AND PLEURA: Coarse interstitial lung markings in both lung bases similar to priors. Less well defined opacity in the right mid lung. No pleural effusion. No pneumothorax. HEART, MEDIASTINUM AND MAMADOU: Heart is normal in size. Normal mediastinal and hilar contour. BONES AND SOFT TISSUES: Fixation of several known right rib fractures. IMPRESSION: 1. No evidence of pneumothorax status post placement of a right IJ central venous catheter. 2. Less well-defined opacity in the right midlung which may reflect asymmetric edema or atelectasiswith coarse interstitial lung markings in the bases. WSN: [id number] Ordering Physician: Laura Rice Dictated By: Concepción Durham MD Dictated Date/Time: 08/03/23 6:09 pm Reviewed By: Concepción Durham MD Signed By: Concepción Durham MD Signed Date/Time: 08/03/23 6:09 pm Transcribed By: BERENICE Transcribed Date/Time: 08/03/23 5:58 pm * Exam Date Time Procedure Performing Provider Status 08/03/23 3:58 PM Chest Portable Guadarrama , Denise; Auth (Ve rified) Notes: (Chest Portable) Reason For Exam: Shortness of Breath RESULT: Chest Portable Chest Portable REASON: Shortness of Breath; Clinical Question(s): CHF COMPARISON: CT chest 07/27/2023 and priors. FINDINGS: LINES AND TUBES: None. LUNGS AND PLEURA: Inferior aspect right upper lobe interstitial opacities, new from prior No pleural effusion. No pneumothorax. HEART, MEDIASTINUM AND MAMADOU: Heart is normal in size. Aorta is calcified. BONES AND SOFT TISSUES: No acute abnormality. ORIF changes of the right 7th through 9th ribs. IMPRESSION: Diffuse opacities at the inferior aspect of the right lobe of differential including underlying infectious/inflammatory process or less likely developing pulmonary edema. I have personally reviewed the images and I agree with this report. WSN: [id number] Ordering Physician: Laura Rice Dictated By: Rene Bird MD Dictated Date/Time: 08/03/23 4:57 pm Reviewed By: Vik Santillan MD Signed By: Vik Santillan MD Signed Date/Time: 08/03/23 5:02 pm Transcribed By: BERENICE Transcribed Date/Time: 08/03/23 4:03 pm Vital Signs Most recent to oldest [Reference Range]: 1 2 3 Height 179 cm (08/08/23 4:43 AM) 179 cm (08/07/23 11:34 PM) 179 cm (08/07/23 7:54 PM) Weight 56.4 kg (08/04/23 12:16 AM) Oxygen Saturation [94-100 %] 91 % *L* (08/08/23 11:47 AM) 96 % (08/08/23 7:58 AM) 97 % (08/08/23 4:43 AM) Pulse Rate [55-90 bpm] 80 bpm (08/08/23 11:47 AM) 84 bpm (08/08/23 8:33 AM) 93 bpm *H* (08/08/23 7:58 AM) Body Mass Index [18.5-24.99 kg/m2] 17.6 kg/m2 *L* (08/04/23 12:16 AM) Blood Pressure [90-138/55-84 mm Hg] 127/79mm Hg (08/08/23 11:47 AM) 130/81mm Hg (08/08/23 8:33 AM) 143/79mm Hg *H* (08/08/23 7:58 AM) Respiratory Rate [16-30 br/min] 18 br/min (08/08/23 12:59 PM) 20 br/min (08/08/23 11:47 AM) 16 br/min (08/08/23 9:33 AM) Temperature [96.8-100.4 DegF] 97.2 DegF (08/08/23 11:47 AM) 97.7 DegF (08/08/23 7:58 AM) 97.6 DegF (08/08/23 4:43 AM) Liters per Minute 4 L/min (08/08/23 11:47 AM) 4 L/min (08/08/23 7:58 AM) 4 L/min (08/07/23 11:34 PM) Mode of Delivery (Oxygen) Nasal cannula (08/08/23 11:47 AM) Nasal cannula (08/08/23 7:58 AM) Room air (08/08/23 4:43 AM) Blood pressure sites Arm, left (08/08/23 11:47 AM) Arm, left (08/08/23 7:58 AM) Arm, left (08/08/23 4:43 AM) Temperature Route Temporal (08/08/23 11:47 AM) Temporal (08/08/23 7:58 AM) Oral (08/08/23 4:43 AM) Dry Weight 56.4 kg (08/04/23 12:16 AM) 56.4 kg (08/04/23 12:14 AM) Weight Obtained Via Bed scale (08/04/23 12:16 AM) Dry Weight Obtained Via Bed scale (08/04/23 12:16 AM) Social History Social History Type Response Tobacco Use: 4 or less cigar ettes(less than 1/4 pack)/day in last 30 days. Interested in cessation: Yes. Other: Reports smoked at least 30 years, up to 1-2 PPD at one point.. Type: Cigarettes. Sex Male Note * Monse Cornell RN: PERFORM Event Display: Discharge/Transfer Note Hospital Authored Date: [id number] Nursing Discharge Note Entered On: 08/08/2023 14:53 EDT Performed On: 08/08/2023 14:51 EDT by Monse Cornell RN Nursing Discharge Note 2 Discharge Time : 08/08/2023 14:00 EDT Discharge Level of Care at Discharge : Home/Penitentiary/Foster Care Patient Left Unit Via : Ambulance Patient Accompanied Off Unit with : Ambulance/Chair Van Personnel Handover Given to Transport Personnel : Yes DC Instructions Provided & Signed by Pt : Unable Patient Understands D/C Instructions : Yes Patient Instructions Discharge Signed : Yes Discharge Comments : day nurse removed IV, pt and son state understanding to all discharge instructions, all questions and concerns addressed. all belongings taken Did Pt have Specialty Bed or Wound Vac : No Monse Cornell RN - 08/08/2023 14:51 EDT * Rene Cummins MD: PERFORM Event Display: Discharge/Transfer Note Hospital Authored Date: [id number] Patient: ??CARLOS BRUMFIELD ? Age:??68 Years?Sex:??Male?:??1955?? Patient Information Discharge Location: D5A Primary Care Physician: Jorge Garcia III, MD Admit Date/Time: 08/03/23 20:45 Discharge Disposition Discharge Disposition: ?? 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 _ Discharge Medications Acetaminophen (acetaminophen 325 [...] humeral head fracture, Right shoulder septic arthritis)?See Instructions?Bonilal-walker nalOXONE (Narcan 4 mg/0.1 mL nasal spray)?See Instructions?If concern for opioid overdose. Gently insert the tip of the nozzle into one nostril, until your fingers on either side of the nozzle are against the bottom of the person's nose. Press the plunger firmly to give the dose of NARCAN Nasal [place]. Remove t... nalOXONE (Narcan 4 mg/0.1 mL nasal spray)?4?Milligram?Nares, Both?Once Oxycodone (oxyCODONE 5 mg oral tablet)?5?Milligram?1?tablet?By Mouth?Every 6 hours?as needed?as needed for pain Pantoprazole (Protonix 40 mg oral delayed release tablet)?1?tab(s)?40?Milligram?By Mouth?Daily PredniSONE (predniSONE 5 mg oral tablet)?3?tab(s)?15?Milligram?By Mouth?Daily?for 30?Days?15 mg daily maintanence dose after the initial taper roflumilast (roflumilast 500 mcg oral tablet)?1?tab(s)?500?Microgram?By Mouth?Daily Sodium Chloride Nasal (Killdeer Saline 0.65% nasal gel)?1?spray(s)?Nares, Both?4 times a day Sulfamethoxazole/Trimethoprim (Bactrim DS Tablet)?1?tablet?By Mouth?2 times a day?160 ??Milligram ??By Mouth ??2 times a day ??for 30 ??Days ??drink plenty of fluids; ??followup with Ortho and ID before this is completed, to discuss long-term plan. May need further weeks of antibiotics. Thiamine (Vitamin B1 100 mg oral tablet)?100?Milligram?1?tablet?By Mouth?Daily umeclidinium (Incruse Ellipta 62.5 mcg/inh inhalation powder)?1?puff(s)?Inhalation?Every 24 hours ? Quality Measures Tobacco Use Treatment:? Medications Started None Medications Discontinued None Doses [...] Unknown) ?Reactions: H/O: migraine ? PCP Follow-Up/Heads-Up complicated case needs follow up with ortho, ID and pulm Future Appointments 2022 9:30 AM EST ?? With: Kelly FREEMAN, Moni Casey Where: [facility] [address] [place] [address]- Status: Pending Hospital Course ??Carlos is a 68-year-old male with medical history COPD on chronic steroids, chronic hypoxic respiratory failure on 4 L home O2, CAD status post stent in 1999 and 2006, severe peripheral vascular disease status post femoral bypass, recent right shoulder MRSA septic arthritis who presented to ED on 08/03 due to respiratory distress and found to have septic??shock secondary to community acquired pneumonia. He was intubated for??acute hypoxic hypercapnic respiratory failure and admitted to [facility] ICU for further management. Patient has since??been weaned off pressors and was successfully extubated to [place] on 08/05. Pt stable, ready for discharge. PT recommed rehab but insurance not covering. CMand SW involved. Discharging pt home. ?? COPD on chronic??steroids??and home O2 Community acquired pneumonia COVID ?? Patient currently feels like he is at baseline in terms of respiratory status and is on baseline level of oxygen. He does have some coarse crackles throughout his lungs on exam. He does not need remdesivir per antimicrobial stewardship. ?? - Finished ceftriaxone and azithromycin for total 5 day course -??Home prednisone 15 mg daily?? - Breo + spiriva - Enhanced respiratory isolation for 20 days starting 08/03 - Home roflumilast ?? Chronic Pain (acute on chronic humeral fractures)??with opioid use disorder Pain regimen adjusted as per last??pain service consult note X ray stable ?? Plan: - Oxycodone 20 mg instant release every 4 hours - Gabapentin 600 mg 3 times daily - Duloxetine 60 mg twice daily - Lidocaine patches as needed - Avoid??intravenous Dilaudid in future admisison unless needed ? Resolved Medical Problems: 1. Acute toxic/metabolic encephalopathy 2. Distributive shock 2/2 sepsis 3. Demand ischemia 4. Acute hypoxic and hypercarbic??respiratory failure 5. Acute respiratory acidosis 6. Acute kidney injury, likely prerenal 7. Mixed acid-base disturbance ?? Chronic Medical Conditions: 1.??Hyperlipidemia: continue home statin 2.??Hypertension: home imdur and metoprolol 3. Anxiety: home hydroxyzine 4. History of septic arthritis/MRSA bacteremia: Home suppressive bactrim 5. Chronic??Normocytic Anemia: He has overall poor nutrition and chronic illnesses which are likelycontributing. Received a unit of prbc, corrected from 7.0 to 7.9 appropriately. No bleeding. Keep an eye on CBC as oupt. 6. History of LLE DVT: Past providers have recommended lifelong anticoagulation. He does also have a IVC filter in place. Restarted home eliquis ? Quality Measures: Diet: Cardiac diet Code: Full DVT ppx: Eliquis Objective Vital Signs?? Temperature: 97.7 DegF (08/08/23 07:58:00) Temperature Route: Temporal (08/08/23 07:58:00) Pulse Rate: 84 bpm (08/08/23 08:33:00) Respiratory Rate: 16 br/min (08/08/23 08:33:00) Systolic Blood Pressure: 130 mm Hg (08/08/23 08:33:00) Diastolic Blood Pressure: 81 mm Hg (08/08/23 08:33:00) Blood pressure sites: Arm, left (08/08/23 07:58:00) Mean Arterial Pressure: 100 mm Hg (08/08/23 07:58:00) Pulse Pressure: 64 mm Hg (08/08/23 07:58:00) Oxygen Saturation: 96 % (08/08/23 07:58:00) Liters per Minute: 4 L/min (08/08/23 07:58:00) Mode of Delivery (Oxygen): Nasal cannula (08/08/23 07:58:00) Early Warning Score: 5 (08/08/23 08:43:12) SOFA Calculated: 0 (08/07/23 22:07:50) ? . Physical Exam General?NAD, AAO HEENT?PERRLA, oropharynx clear, moist mucus membranes Pulm?decrease air entry, no significant crackles CV?RRR, +S1/S2, no murmurs/rubs GI?Soft, nontender, nondistended, no organomegaly, bowel sounds are present Neuro?Moves all extremities MS?no obvious deformity Psych?Mood appropriate to situation?? Pending Results Add On Lab Order ordered on 08/04/2023 Add On Lab Order ordered on 08/04/2023 Blood Culture ordered on 08/03/2023 Blood Culture #2 ordered on 08/03/2023 Respiratory Pathogen PCR with COVID-19 ordered on 08/04/2023 Transfuse RBCs ordered on 08/04/2023 Home Health Face to Face I certify that this patient is under my care and that I had a [id number] encounter with the patient? The encounter with the patient was in whole, or in part, for the following medical condition, whichis the primary reason for home health care:?? multiple comorbidities ?? Nursing: Medication management (reconciliation, teaching), Chronic disease management.?? Physical Therapy: Home exercise program to strengthen, increase ROM.?? Physician Signature: Maria G López. ?? Results Discharge Labs BACTERIOLOGY MRSA PCR Result Negative, MRSA target DNA not detected. ()?? 08/04/2023 06:45 S Aureus ??PCR Result Negative, SA target DNA not detected. ()?? 08/04/2023 06:45 ?? BLOOD BANK Blood Type A Negative ()?? 08/04/2023 17:34 Antibody Screen Negative ()?? 08/04/2023 17:34 RBC Unit ID [id number] ()?? 08/04/2023 18:22 RBC Available PT ()?? 08/04/2023 18:22 ?? BLOOD COUNT & DIFF WBC 16.6 k/mm3 (High)?? 08/06/2023 09:33 RBC 3.27 m/mm3 (Low)?? 08/06/2023 09:33 Hgb 8.7 Gm/dL (Low)?? 08/06/2023 09:33 Hct 28.1 % (Low)?? 08/06/2023 09:33 MCV 85.9 femtoliters ()?? 08/06/2023 09:33 MCH 26.6 pg (Low)?? 08/06/2023 09:33 MCHC 31.0 g/dL (Low)?? 08/06/2023 09:33 Platelet Count 338 k/mm3 ()?? 08/06/2023 09:33 RDW-SD 56.4 femtoliters (High)?? 08/06/2023 09:33 MPV 8.6 femtoliters (Low)?? 08/06/2023 09:33 Nucleated RBC (Automated) 0.0 #/100 WBC'S ()?? 08/06/2023 09:33 Abs. NRBC 0.0 k/mm3 ()?? 08/06/2023 09:33 Abs. Neut 19.5 k/mm3 (High)?? 08/05/2023 03:06 Abs. Lymph 0.2 k/mm3 (Low)?? 08/05/2023 03:06 Abs. Nolan 0.8 k/mm3 ()?? 08/05/2023 03:06 Abs. Eo 0.0 k/mm3 ()?? 08/05/2023 03:06 Abs. Baso 0.0 k/mm3 ()?? 08/05/2023 03:06 Neut % 93.8 % (High)?? 08/05/2023 03:06 Lymph % 0.9 % (Low)?? 08/05/2023 03:06 Nolan % 3.7 % (Low)?? 08/05/2023 03:06 Eos % 0.0 % ()?? 08/05/2023 03:06 Baso % 0.1 % ()?? 08/05/2023 03:06 RBC Morphology MODERATE ()?? 08/03/2023 16:48 Hemoglobin (POC) POC Cartridge 8.5 Gm/dL (Low)?? 08/03/2023 23:50 Hematocrit (POC) POC Cartridge 25 % (Low)?? 08/03/2023 23:50 Imm Gran 1.5 % ()?? 08/05/2023 03:06 Abs. Imm Gran 0.3 k/mm3 ()?? 08/05/2023 03:06 ? BLOOD GAS pH (POC) POC Cartridge 7.12 (Critical)?? 08/03/2023 23:50 pCO2 (POC) POC Cartridge 69.2 mm Hg (High)?? 08/03/2023 23:50 pO2 (POC) POC Cartridge 35 mm Hg (Critical)?? 08/03/2023 23:50 Estimated Bicarbonate (POC) POC Cart 22.6 mmol/L ()?? 08/03/2023 23:50 % O2 Sat Arterial (POC) POC Cartridge 49 % (Low)?? 08/03/2023 23:50 Base Excess (POC) POC Cartridge NEGATIVE 7 ()?? 08/03/2023 23:50 pH 7.39 ()?? 08/04/2023 02:19 pCO2 34 mm Hg (Low)?? 08/04/2023 02:19 pO2 217 mm Hg (High)?? 08/04/2023 02:19 Bicarbonate, Estimated 20 mmol/L (Low)?? 08/04/2023 02:19 Specimen Type - Blood Gas ARTERIAL ()?? 08/04/2023 02:19 Percent O2 (FIO2) 100% ()?? 08/04/2023 02:19 ?? CARDIAC Nt-Probnp 1140 pg/mL (High)?? 08/03/2023 16:48 High Sensitivity Troponin (HSTnT) 73 ng/L (Critical)?? 08/03/2023 16:48 ?? CHEM GENERAL Sodium 141 mmol/L ()?? 08/06/2023 09:33 Potassium 4.3 mmol/L ()?? 08/06/2023 09:33 Chloride 104 mmol/L ()?? 08/06/2023 09:33 Bicarbonate Level 25 mmol/L ()?? 08/06/2023 09:33 Anion Gap 12 ()?? 08/06/2023 09:33 Sodium (POC) POC Cartridge 131 mmol/L (Low)?? 08/03/2023 23:50 Potassium (POC) POC Cartridge 5.3 mmol/L (High)?? 08/03/2023 23:50 Glucose Level 92 mg/dL ()?? 08/06/2023 09:33 Glucose (POC) POC Cartridge 199 (High)?? 08/03/2023 23:50 Glucose, POC 205 mg/dL (High)?? 08/08/2023 06:39 BUN 19 mg/dL ()?? 08/06/2023 09:33 Creatinine-Blood 0.6 mg/dL (Low)?? 08/06/2023 09:33 Estimated GFR Creatinine 108 ML/MIN/1.73 M2 ()?? 08/06/2023 09:33 Calcium 8.4 mg/dL (Low)?? 08/06/2023 09:33 Calcium, Ionized pH Corrected 1.19 mmol/L ()?? 08/05/2023 03:06 Ionized Calcium (POC) POC Cartridge 1.13 mmol/L ()?? 08/03/2023 23:50 Phosphorus 2.6 mg/dL ()?? 08/05/2023 03:06 Magnesium 2.4 mg/dL (High)?? 08/05/2023 03:06 Protein, Total 5.5 Gm/dL (Low)?? 08/03/2023 16:48 Albumin 3.3 Gm/dL (Low)?? 08/03/2023 16:48 AG Ratio 1.5 ()?? 08/03/2023 16:48 Alkaline Phosphatase 174 units/L (High)?? 08/03/2023 16:48 AST (SGOT) 32 units/L ()?? 08/03/2023 16:48 ALT (SGPT) 25 units/L ()?? 08/03/2023 16:48 Bilirubin, Total <0.2 mg/dL ()?? 08/03/2023 16:48 Lactate 1.9 mmol/L ()?? 08/03/2023 16:48 ?? ENDOCRINE/TUMOR MARKER TSH 2.34 uIU/mL ()?? 08/03/2023 16:48 ? MISC. CHEMISTRY Procalcitonin 9.21 ng/mL ()?? 08/04/2023 06:59 ? SEROLOGY INF DISEASE Legionella pneumophila Antigen NEGATIVE ()?? 08/04/2023 06:45 S. Pneumococcus Urinary Ag NEGATIVE ()?? 08/04/2023 06:45 ?? UA/URINALYSIS Appear/Color, Urine LIGHT YELLOW ()?? 08/04/2023 06:45 Specific [place], Urine 1.016 ()?? 08/04/2023 06:45 pH, Urine 5.5 ()?? 08/04/2023 06:45 Albumin, Urine TRACE (Abnormal)?? 08/04/2023 06:45 Glucose, Urine NEGATIVE ()?? 08/04/2023 06:45 Ketones, Urine NEGATIVE ()?? 08/04/2023 06:45 Bilirubin, Urine NEGATIVE ()?? 08/04/2023 06:45 Hemoglobin, Urine TRACE (Abnormal)?? 08/04/2023 06:45 Nitrite, Urine NEGATIVE ()?? 08/04/2023 06:45 Leukocyte, Urine NEGATIVE ()?? 08/04/2023 06:45 Urobilinogen NORMAL mg/dL ()?? 08/04/2023 06:45 WBC's, Urine 4 /HPF ()?? 08/04/2023 06:45 RBC's, Urine 4 /HPF (High)?? 08/04/2023 06:45 Bacteria MODERATE HPF (Abnormal)?? 08/04/2023 06:45 Hyaline Cast 1 LPF ()?? 08/04/2023 06:45 Granular Cast 4 /LPF ()?? 08/04/2023 06:45 Amorphous Crystals MODERATE /HPF ()?? 08/04/2023 06:45 Mucus SLIGHT /LPF ()?? 08/04/2023 06:45 Hold Urine Culture Testing available 48 hours from time of collection. ()?? 08/04/2023 06:45 ? URINE OTHER Est Creatinine Clearance 96.61 mL/min ()?? 08/05/2023 04:20 ? VIROLOGY COVID-19 by RT-PCR POSITIVE (Abnormal)?? 08/03/2023 16:56 ? Microbiology ?? COVID-19 (Novel Coronavirus), Rapid PCR?? Completed?? Source: Nasal Body Site: Nose Collected Dt/Tm: 08/03/2023 16:00 Last Updated Dt/Tm: 08/03/2023 18:28 Respiratory Pathogen PCR with COVID-19?? Collected?? Source: Nasal Body Site: Nose Collected Dt/Tm: 08/04/2023 03:42 Last Updated Dt/Tm: 08/04/2023 01:56 MRSA PCR Nasal Swab?? Completed?? Source: Swab Body Site: Nares Both Collected Dt/Tm: 08/04/2023 03:43 Last Updated Dt/Tm: 08/04/2023 13:39 Sputum Culture w/ Gram Smear?? Completed?? Source: Endotracheal Aspirate Body Site: ?? Collected Dt/Tm: 08/04/2023 03:43 Last Updated Dt/Tm: 08/04/2023 03:43 ?SPECIMEN DESCRIPTION : ENDOTRACHEAL ASPIRATESPECIAL REQUESTS : NONEGRAM STAIN : 3+ POLYMORPHONUCLEAR LEUKOCYTES ?1+ GRAM POSITIVE COCCI ?2+ GRAM NEGATIVE RODSCULTURE : 3+ NORMAL [place] STATUS : FINAL 08/06/2023 ? >35 minutes spent on discharge * Aneta SHANNON, Monse: PERFORM Event Display: Patient Education/Instruction Authored Date: Inpatient Adult Discharge Instructions [address] [id number] Name: CARLOS BRUMFIELD : 1955 Visit: 08/03/2023 20:45:00 Current Date: 08/08/2023 12:35 Account: [id number] Inpatient Adult Discharge Instructions We would like [...] and their families. Surveys are administered by [employer] ?? If further treatment with your primary care physician or another doctor is recommended, it is important for you to keep the appointment. Call your primary care physician or return to the Emergency Department immediately if your condition worsens, fails to improve, or new symptoms develop. If you need to find a doctor, you can call [facility] for a referral at [phone] or toll free at [phone]) or log in to [email or web address].. ?? [facility], in keeping with [facility] guidance, no longer requires face masks for [...] a health care todd of your choosing. [employer] is a website that allows you to securely view your medical information including your hospital discharge summary, office visit summaries, medications and follow-up visits. You can also request appointments, renew medications, and request access to your medical information using a health care todd of your choosing, or just ask a question. You can enroll at [email or web address] or register during your next office visit. You have been discharged from [facility], Patient Care Unit: D5A. If you have any questions regarding these instructions after you leave, please call us and we will be happy to assist you. [facility] Your Care Team Attending Physician Rene Cummins MD Discharging Providers Rene Cummins MD Reason for Admission see jovana level sheet 1 Your Diagnosis Septic shock Pneumonia Acute kidney injury COVID Non-pressure chronic ulcer of left ankle limited to breakdown of skin Peripheral artery disease Wound of right shoulder Tests Performed Below is a partial list of the tests performed during your hospitalization. You may have had other tests and procedures not included in this list. Please discuss all test results with your provider. ABG ABG POC CARTRIDGE BASE EXCESS POC CARTRIDGE Basic Metabolic Panel Blood Gas Arterial CALCIUM IONIZED POC CART CBC CBC w/ Differential Comprehensive Metabolic Panel COVID-19 (Novel Coronavirus), Rapid PCR GLUCOSE POC GLUCOSE POC CARTRIDGE HEMATOCRIT POC CARTRIDGE HEMOGLOBIN POC CARTRIDGE High??Sensitivity??Troponin T Ionized Calcium Lactate Level Legionella Antigen Urine Magnesium Level MRSA PCR Nasal Swab Phosphorus Level POTASSIUM POC CARTRIDGE ProBNP PROCALCITONIN, SERUM Respiratory Pathogen PCR with COVID-19?-- Results Pending -- SODIUM POC CARTRIDGE Strep Pneumoniae Urinary Ag TSH Type and Screen Urinalysis w/hold for Urine Culture Portable Chest XR Chest Portable XR Shoulder Min 2 Views Right You will be contacted within 72 hours with your results. Primary Care Provider Jorge Garcia III, MD Advance Directive Health Care Proxy on File Yes - Health Care Proxy Yes - MOLST Discharge Vitals Temperature: 97.2 DegF Height: 179 cm Pulse Rate: 80 bpm Weight: 56.4 kg Respiratory Rate: 20 br/min Body Mass Index:??17.6 kg/m2??Low Systolic Blood Pressure: 127 mm Hg Body surface area: 1.67 Diastolic Blood Pressure: 79 mm Hg ?? Oxygen Saturation:??91 %??Low ?? Studies Pending All tests and labs ordered during this hospital stay have been completed unless listed below. Please discuss all pending results with your provider listed above in these instructions. ?? Add On Lab Order Blood Culture Blood Culture #2 Respiratory Pathogen PCR with COVID-19 Transfuse RBCs What to do next Instructions From Your Doctor Discharge Orders Scheduled Follow-Up Appointments 2022 9:30 AM EST ?? With: Moni Mendoza NP Where: [facility] [address] [place] [address]- Status: Pending You Need to Schedule the Following Appointments Follow Up with??Jorge Garcia III, MD Where: [address] [place] [phone] Discharge Medications CARLOS BRUMFIELD :1955 Visit Date:08/03/2023 Medications: Please continue your medications until treatment is completed or stopped by your provider. Medications not listed below should be discontinued. Discuss any questions related to medications with your provider. What How Much When Instructions Next Dose New Sulfamethoxazole/ Trimethoprim (Bactrim DS Tablet) 1 tab(s) Oral Twice a day 160 ??Milligram ??By Mouth ??2 times a day ??for 30 ??Days ??drink plenty of fluids; ??followup with Ortho and ID before this is completed, to discuss long- term plan. May need further weeks of antibiotics. ?? 08/08/23 at 9pm Unchanged Acetaminophen (acetaminophen 325 mg oral tablet) 2 tab(s) Oral Every 4 hours as needed for as needed for fever 08/08/23 at 5pm Unchanged Albuterol (albuterol 0.042% inhalation solution) 3 Milliliter Nebulized inhalation Every 4 hours 08/08/23 at 5pm Unchanged apixaban (Eliquis 5 mg oral tablet) 1 tab(s) Oral Twice a day Duration: 30 Days 08/08/23 at 9pm Unchanged Atorvastatin (atorvastatin 80 mg oral tablet) 1 tab(s) Oral Daily 08/08/23 at 9pm Unchanged Collagenase Topical (collagenase topical 250 u/ gm ointment) See instructions Use over right shoulder wound daily ?? 08/09/23 at 9am Unchanged Dicyclomine (dicyclomine 10 mg oral capsule) 1 capsule Oral 4 times a day resume home dose Unchanged Duloxetine (duloxetine 60 mg oral enteric coated capsule) 1 capsule Oral Twice a day 08/08/23 at 9pm Unchanged Ferrous Sulfate (ferrous sulfate 325 mg oral enteric coated tablet) 1 tab(s) Oral Daily resume home dose Unchanged Gabapentin (gabapentin 300 mg oral capsule) 2 capsule Oral 3 times a day 08/08/23 at 3pm Unchanged Guaifenesin/ Dextromethorphan (Robitussin DM Liquid) 5 Milliliter Oral Every 6 hours as needed for Cough PRn as needed Unchanged HydrOXYzine (hydrOXYzine hydrochloride 10 mg oral tablet) 1 tab(s) Oral 3 times a day as needed for Anxiety last dose 08/07/23 Unchanged Isosorbide Dinitrate (isosorbide dinitrate 30 mg oral tablet) 1 tab(s) Oral Twice a day 08/09/23 at 9am Unchanged Lidocaine Topical (lidocaine 4% patch) resume home dose Unchanged Loperamide (loperamide 2 mg oral capsule) 1 capsule Oral Every 6 hours as needed for for loose stool PRN as needed Unchanged Melatonin 10 Milligram Oral Daily at Bedtime as needed for as needed for sleep 08/08/23 at 9pm Unchanged Metoprolol (Metoprolol Succinate ER 25 mg oral tablet, extended release) 1 tab(s) Oral Daily 08/09/23 at 9am Unchanged Miscellaneous Rx (dx: left humeral head fracture, Right shoulder septic arthritis) See instructions Bonilla-walker ?? n/a Unchanged nalOXONE (Narcan 4 mg/ 0.1 mL nasal spray) See instructions If concern for opioid overdose. Gently insert the tip of the nozzle into one nostril, until your fingers on either side of the nozzle are against the bottom of the person's nose. Press the plunger firmly to give the dose of NARCAN Nasal [place]. Remove the NARCAN Nasal [place] from the nostril after giving the dose. Get emergency medical help right away. ?? as needed Unchanged nalOXONE (Narcan 4 mg/ 0.1 mL nasal spray) 4 Milligram Nares, Both Once as needed Unchanged Oxycodone (oxyCODONE 5 mg oral tablet) 1 tab(s) Oral Every 6 hours as needed for as needed for pain last dose 08/08/23 at 744am Unchanged Pantoprazole (Protonix 40 mg oral delayed release tablet) 1 tab(s) Oral Daily resume home dose Unchanged PredniSONE (predniSONE 5 mg oral tablet) 3 tab(s) Oral Daily Duration: 30 Days 15 mg daily maintanence dose after the initial taper ?? 08/09/23 at 9am Unchanged roflumilast (roflumilast 500 mcg oral tablet) 1 tab(s) Oral Daily 08/09/23 at 9am Unchanged Sodium Chloride Nasal ([place] Saline 0.65% nasal gel) 1 spray(s) Nares, Both 4 times a day resume home dose Unchanged Thiamine (Vitamin B1 100 mg oral tablet) 1 tab(s) Oral Daily 08/09/23 at 9am Unchanged umeclidinium (Incruse Ellipta 62.5 mcg/ inh inhalation powder) 1 puff(s) Inhalation Every 24 hours 08/09/23 at 9am Test Results Below is a partial list of the most recent Laboratory test results done prior to this discharge. You may have had other tests and procedures not included in this list. Please discuss all test resultswith your provider. Est Creatinine Clearance - 96.61 mL/min (08/05/2023) RBC Available - PT (08/04/2023) RBC Unit ID - [id number] (08/04/2023) ABG (08/04/2023) ???pH - 7.39???pCO2 - 34 mm Hg???pO2 - 217 mm Hg???Bicarbonate, Estimated - 20 mmol/L???Specimen Type - Blood Gas - ARTERIAL???Percent O2 (FIO2) - 100% ABG POC CARTRIDGE (08/03/2023) ???pH (POC) POC Cartridge - 7.12???pCO2 (POC) POC Cartridge - 69.2 mm Hg???pO2 (POC) POC Cartridge - 35 mm Hg???Estimated Bicarbonate (POC) POC Cart - 22.6 mmol/L???% O2 Sat Arterial (POC) POC Cartridge - 49 %???Specimen Type - Blood Gas - ARTERIAL BASE EXCESS POC CARTRIDGE (08/03/2023) ???Base Excess (POC) POC Cartridge - NEGATIVE 7 Basic Metabolic Panel (08/06/2023) ???Sodium - 141 mmol/L???Potassium - 4.3 mmol/L???Chloride - 104 mmol/L???Bicarbonate Level - 25 mmol/L???Anion Gap - 12???Glucose Level - 92 mg/dL???BUN - 19 mg/dL???Creatinine-Blood - 0.6 mg/dL???Estimated GFR Creatinine - 108 ML/MIN/1.73 M2???Calcium - 8.4 mg/dL Blood Gas Arterial (08/03/2023) ???pH - 7.22???pCO2 - 56 mm Hg???pO2 - 70 mm Hg???Bicarbonate, Estimated - 22 mmol/L???Specimen Type - Blood Gas - ARTERIAL???Percent O2 (FIO2) - 40 CALCIUM IONIZED POC CART (08/03/2023) ???Ionized Calcium (POC) POC Cartridge - 1.13 mmol/L CBC (08/06/2023) ???WBC - 16.6 k/mm3???RBC - 3.27 m/mm3???Hgb - 8.7 Gm/dL???Hct - 28.1 %???MCV - 85.9 femtoliters???MCH - 26.6 pg???MCHC - 31.0 g/dL???Platelet Count - 338 k/mm3???RDW-SD - 56.4 femtoliters???MPV - 8.6 femtoliters???Nucleated RBC (Automated) - 0.0 #/100 WBC'S???Abs. NRBC - 0.0 k/mm3 CBC w/ Differential (08/05/2023) ???WBC - 20.8 k/mm3???RBC - 3.00 m/mm3???Hgb - 7.9 Gm/dL???Hct - 25.2 %???MCV - 84.0 femtoliters???MCH - 26.3 pg???MCHC - 31.3 g/dL???Platelet Count - 316 k/mm3???RDW-SD - 53.5 femtoliters???MPV - 8.9 femtoliters???Nucleated RBC (Automated) - 0.1 #/100 WBC'S???Abs. NRBC - 0.0 k/mm3???Abs. Neut - 19.5 k/mm3???Abs. Lymph - 0.2 k/mm3???Abs. Nolan - 0.8 k/mm3???Abs. Eo - 0.0 k/mm3???Abs. Baso - 0.0 k/mm3???Neut % - 93.8 %???Lymph % - 0.9 %???Nolan % - 3.7 %???Eos % - 0.0 %???Baso % - 0.1 %???Imm Gran- 1.5 %???Abs. Imm Gran - 0.3 k/mm3 Comprehensive Metabolic Panel (08/03/2023) ???Sodium - 137 mmol/L???Potassium - 5.1 mmol/L???Chloride - 100 mmol/L???Bicarbonate Level - 21 mmol/L???Anion Gap - 16???Glucose Level - 85 mg/dL???BUN - 67 mg/dL???Creatinine-Blood - 2.9 mg/dL???Estimated GFR Creatinine - 23 ML/MIN/1.73 M2???Calcium - 8.3 mg/dL???Protein, Total - 5.5 Gm/dL???Albumin - 3.3 Gm/dL???AG Ratio - 1.5???Alkaline Phosphatase - 174 units/L???AST (SGOT) - 32 units/L???ALT (SGPT) - 25 units/L? ?Bilirubin, Total - <0.2 mg/dL COVID-19 (Novel Coronavirus), Rapid PCR (08/03/2023) ???COVID-19 by RT-PCR - POSITIVE GLUCOSE POC (08/08/2023) ???Glucose, POC - 139 mg/dL GLUCOSE POC CARTRIDGE (08/03/2023) ???Glucose (POC) POC Cartridge - 199 HEMATOCRIT POC CARTRIDGE (08/03/2023) ???Hematocrit (POC) POC Cartridge - 25 % HEMOGLOBIN POC CARTRIDGE (08/03/2023) ???Hemoglobin (POC) POC Cartridge - 8.5 Gm/dL High??Sensitivity??Troponin T (08/03/2023) ???High Sensitivity Troponin (HSTnT) - 73 ng/L Ionized Calcium (08/05/2023) ???Calcium, Ionized pH Corrected - 1.19 mmol/L Lactate Level (08/03/2023) ???Lactate - 1.9 mmol/L Legionella Antigen Urine (08/04/2023) ???Legionella pneumophila Antigen - NEGATIVE Magnesium Level (08/05/2023) ???Magnesium - 2.4 mg/dL MRSA PCR Nasal Swab (08/04/2023) ???MRSA PCR Result - Negative, MRSA target DNA not detected.???S Aureus PCR Result - Negative, SA target DNA not detected. Phosphorus Level (08/05/2023) ???Phosphorus - 2.6 mg/dL POTASSIUM POC CARTRIDGE (08/03/2023) ???Potassium (POC) POC Cartridge - 5.3 mmol/L ProBNP (08/03/2023) ???Nt-Probnp - 1140 pg/mL PROCALCITONIN, SERUM (08/04/2023) ???Procalcitonin - 9.21 ng/mL SODIUM POC CARTRIDGE (08/03/2023) ???Sodium (POC) POC Cartridge - 131 mmol/L Strep Pneumoniae Urinary Ag (08/04/2023) ???S. Pneumococcus Urinary Ag - NEGATIVE TSH (08/03/2023) ???TSH - 2.34 uIU/mL Type and Screen (08/04/2023) ???Blood Type - A Negative???Antibody Screen - Negative Urinalysis w/hold for Urine Culture (08/04/2023) ???Appear/Color, Urine - LIGHT YELLOW???Specific [place], Urine - 1.016???pH, Urine - 5.5???Albumin, Urine - TRACE???Glucose, Urine - NEGATIVE???Ketones, Urine - NEGATIVE???Bilirubin, Urine - NEGATIVE???Hemoglobin, Urine - TRACE???Nitrite, Urine - NEGATIVE???Leukocyte, Urine - NEGATIVE???Urobilinogen - NORMAL???WBC's, Urine - 4 /HPF???RBC's, Urine - 4 /HPF???Bacteria - MODERATE???Hyaline Cast - 1LPF???Granular Cast - 4 /LPF???Amorphous Crystals - MODERATE???Mucus - SLIGHT???Hold Urine Culture - Testing available 48 hours from time of collection. Allergies (NKA means No Known Allergies) Toradol??(Morphine allergy, Metaxalone, Naproxen, Cephalexin allergy, hives) Keflex??(rash) Skelaxin??(H/O: migraine) naproxen??(lesions on lips) Problems Active Problems??(28) Anemia?? Anxiety?? CAD?? CAD - Coronary artery disease?? cardiac stents?? Chronic low back pain?? chronic pack pain?? COPD (chronic obstructive pulmonary disease)?? COPD (chronic obstructive pulmonary disease)?? COPD exacerbation?? COVID-19?? Deep vein thrombosis (DVT) of left lower extremity?? Drug use disorder, opiate and benzo dependency, narcotic contract?? Epistaxis?? GERD (gastroesophageal reflux disease)?? History of Alcohol dependency?? HTN (hypertension)?? Hyperlipidemia?? Hyponatremia?? Metabolic alkalosis?? Multiple fractures of ribs?? Old LA (myocardial infarction) X 3?? old Rib fractures, right 3-8?? Pulmonary cachexia due to COPD?? PVD (peripheral vascular disease)?? Smoking greater than 40 pack years?? Tobacco dependence?? Underweight?? Education Materials Below is the list of Educational Leaflet Providered with your Discharge Instructions. Sulfamethoxazole/Trimethoprim Oral Tablet?? Fall??Prevention?? Coronavirus Disease 2019 (COVID-19): Overview?? Understanding Coronavirus Disease 2019 COVID-19?? Sepsis?? Understanding Sepsis?? Preventing Pneumonia?? Pneumonia (Adult)?? Discharge Instructions for Acute Kidney Injury?? Valuables and Belongings I fully understand and agree that [facility] accepts no responsibility for all [...] ?? Date for Pt to Sign Valuables/Belongings: 08/04/23 03:44:00 ?? Other Discharge Information ?? Wound Assessment?? Wound Assessment?? Wound Location I: Shoulder, right Wound I, Present on Admission: Yes Wound Location II: Leg, left lower Wound II, Present on Admission: Yes ?? Case Management Discharge Plan?? Discharge Plan?? Discharge Level of Care at Discharge: Home/Penitentiary/Foster Care Discharge Transportation Arranged: [facility] [address] [facility] [address] [phone] Mode of Transportation Arranged: Ambulance Discharge Arranged Transport Date/Time: 08/08/23 11:30:00 ?? Pulmonary Rehab Status?? Pulmonary Rehab Discharge Status?? CPAP/BiPAP Mask Type: Full CPAP/BiPAP Mask Size: Medium Respiratory Rate: 20 br/min PEEP: 5 ? Common Emergency Awareness Tips IS IT [...] are strongly encouraged to quit. Please call [facility] Link at [phone] or [phone] or log in to [email or web address] for referrals to smoking cessation programs. ?? 657 Suicide & Crisis Lifeline is available 20/06 if you or someone you know needs to find a reason to keep living. By calling 993 you'll be connected to a skilled, trained counselor at a crisis center in your area. INPATIENT DISCHARGE INSTRUCTIONS SIGNATURE PAGE CARLOS BRUMFIELD Location:[facility] Registration Date and Time:08/03/2023 20:45 EDT Primary Care Physician: Jorge Garcia III, MD, Attending Physician: Mraia G AMAYA, [facility], I CARLOS BRUMFIELD, have received the above patient education materials/instructions and have verbalized understanding. If ambulance or transport services are being used I further acknowledge being given a choice of service. ?? If you need to contact me, please call me at this number: . Patient/Finisher Brush Name: Patient/Finisher Brush Signature: Relationship to Patient: Witness Name/Signature: Date: * Monse Cornell RN: PERFORM Event Display: Patient Education Leaflets Authored Date: [id number] Sulfamethoxazole/Trimethoprim Oral Tablet ?? [id number] Sulfamethoxazole/Trimethoprim Oral Tablet Brands: Bactrim Uses For infection. ?? Instructions Swallow with a full glass (8 oz) of water unless your doctor gives you different instructions. You may take with food to prevent stomach upset. Space doses evenly to keep a steady amount of medicine in the body. Keep the medicine at room temperature. Avoid heat and direct light. Drink plenty of water while on this medicine. This medicine can make you [...] about all medicines taken. Include prescription and jovs-pju-nsppfck medicines, vitamins, and herbal medicines. Speak with your doctor or pharmacist before starting or stopping any medicine. Tell your doctor if symptoms do not get better or if they get worse. Keep using this medicine for the full number of days that it is prescribed. Do not stop the medicine even if you start to feel better. This medicine may affect your blood sugar levels. If you have diabetes, talk to your doctor before changing the dose of your diabetes medicine. If you have diabetes and use urine glucose tests, this medicine may cause incorrect results. Pleasecheck with your doctor before making any changes to your diabetes treatment plan. Keep all appointments for medical exams and tests while on this medicine. ?? Cautions Tell your doctor and pharmacist if you ever had an allergic reaction to a medicine. Some patients taking this medicine have experienced serious side effects. Please speak with your doctor to understand the risks and benefits associated with this medicine. This medicine has been associated with a rare but serious skin rash. If you notice any red, peelingor blistered skin, contact your doctor immediately. Do not use the medication any more than instructed. Speak with your health care provider before receiving any vaccinations. Please tell your doctor if you have moderate to severe diarrhea while on this medicine. Do not treat the diarrhea with mjir-khr-iviqyfy diarrhea medicine. Do not breastfeed while on this medicine. This medicine can hurt a new baby [...] experience these or other side effects. ??? decreased appetite ??? diarrhea ??? nausea and vomiting Call your doctor or get medical help right away if you notice any of these more serious side effects: ??? severe or persistent abdominal pain ??? bleeding or bruising ??? blurry vision ??? severe, watery or bloody diarrhea ??? swelling in the neck or throat ??? severe or persistent headache ??? fast,irregular, or slow heartbeat ??? signs of kidney damage (such as change in urine color or bubbly urine) ??? signs of liver damage (such as yellowing of eye or skin, dark urine, or unusual tiredness) ??? muscle weakness ??? sore or stiff neck ??? seizures ??? red, peeling or blistering skin ??? vaginal itching or yeast infection A few people may have an allergic reaction to this medicine. Symptoms can include difficulty breathing, skin rash, itching, swelling, or severe dizziness. If you notice any of these symptoms, seek medical help quickly. ?? Extra Please speak with your doctor, nurse, or pharmacist if you have any questions about this medicine. ?? [email or web address] IMPORTANT NOTE: This document tells you briefly how to take your medicine, but it does not tell youall there is to know about it. Your doctor or pharmacist may give you other documents about your medicine. Please talk to them if you have any questions. Always follow their advice. There is a more complete description of this medicine available in Irish. Scan this code on your smartphone or tablet or use the web address below. You can also ask your pharmacist for a printout. If you have any questions, please ask your pharmacist. The display and use of this drug information is subject to Terms of Use. Copyright(c) 2022 [employer]. ?? The [employer]. All rights reserved. This information is not intended as a substitute for professional medical care. Always follow your healthcare professional's instructions. ?? * Monse Cornell RN: PERFORM Event Display: Patient Education Leaflets Authored Date: [id number] Fall??Prevention ?? [id number] Fall??Prevention Falls often take place due to [...] more often. Last Reviewed Date: 2021 ?? [id number] [employer]. All rights reserved. This information is not intended as a substitute for professional medical care. Always follow your healthcare professional's instructions. ?? * Monse Cornell RN: PERFORM Event Display: Patient Education Leaflets Authored Date: [id number] Coronavirus Disease 2019 (COVID-19): Overview ?? [address]6573 Coronavirus Disease 2019 (COVID-19): Overview Coronavirus disease 2019 (COVID-19) is an illness that infects the lungs. It's caused by a type of coronavirus. The virus is called SARS-CoV-2. There are many types of coronaviruses. They are a common cause of colds and bronchitis. They can cause a lung infection called pneumonia. Symptoms can range from mild to severe. Some people have no symptoms. These types of viruses are also found in some animals. Viruses change (mutate) all the time. The changes lead to different forms of a virus. These are called variants. COVID-19 variants may spread more easily from person to person. They may cause milder symptoms. Or they may cause more severe symptoms.?? The virus spreads and infects people easily. It can infect a person more easily if they are not immune to it. The virus most often spreads through droplets of fluid that a person coughs or sneezes into the air. In some cases, you can get it from touching a surface with the virus on it and then touching your eyes, nose, or mouth. To help prevent spreading the infection, wash your hands often, or use an alcohol-based hand commercial announcer. To learn more For the latest from the CDC: ??? Go to the CDC website ??? Call 012-ZJV-HXAE (124-082-0846) ?? What are the symptoms of COVID-19? Some people have no symptoms. Some have mild symptoms. Others may have severe symptoms. This variesfrom person to person. Symptoms may start 2 to 14 days after contact with the virus. They can include: ??? Fever ??? Chills ??? Coughing ??? Trouble breathing or feeling short of breath ??? Sore throat ??? Stuffy or runny nose ??? Headache ??? Body aches ??? Tiredness ??? Nausea, vomiting, diarrhea, or belly pain ??? New loss of sense of smell or taste ?? What are possible complications of COVID-19? The virus can cause an infection in the lungs. This is called pneumonia. This can lead to in some cases. Experts are still learning more about COVID-19 problems. Problems may include: ??? Low blood pressure ??? Kidney failure ??? Inflammation of the brain or heart ??? Rashes Some people are at higher risk for problems. This includes: ??? Older adults ??? People with heart or lung disease ??? People with diabetes or kidney disease ??? People with health conditions that limit the immune system ??? People who take medicines that limit the immune system Rarely, a child may have a severe complication. This is called multisystem inflammatory syndrome inchildren (MIS-C). MIS-C seems to be like Kawasaki disease. This is a rare illness. It causes swelling of blood vessels and body organs. MIS can also happen in adults. But this is less common. ? How is COVID-19 diagnosed? Your healthcare provider will ask: ??? What symptoms you have ??? Where you live ??? If you???ve traveled recently ??? If you???ve hadcontact with sick people ??? If you are vaccinated against COVID-19 ??? If you have had COVID-19 You may have 1 of these tests for COVID-19: ??? Viral (molecular) test. You may also hear this called a PCR or RT-PCR test. Viral tests are very accurate. A viral test looks for the genetic material (RNA) of the SARS-CoV-2 virus. There are a few ways to do this. A swab may be wiped inside your nose or throat. Or a long swab may be put into your nose down to the back of your throat. Or a sample of your saliva may be taken. Your test results may be back in 45 minutes to a few hours. This depends on the type of test. Some tests must be sentto a lab. These can take several days for the results. You can now get test kits to use at home. Some of these need a prescription. Follow the instructions in the kit closely if you use a home kit. Some kits show results quickly at home. Others must be sent to a lab for the results. ??? Antigen test. This can find proteins from the SARS-CoV-2 virus. A swab may be wiped inside your nose or throat.Or a long swab may be put into your nose down to the back of your throat. Some results are back within 15 to 60 minutes. This depends on the type of test. Positive results are very accurate. But false positive results can happen. And the results can be negative even in people with COVID-19. Antigen tests are more likely to miss a COVID-19 infection than a viral (molecular) test. You may need to have a viral test if your antigen test is negative but you have symptoms of COVID-19. ??? Breath test. This rapid test is not widely available at this time. It finds SARS-CoV-2 infection in the breath.The test is done at providers' offices, hospitals, and mobile testing sites. You may have other tests if your provider thinks or confirms that you have COVID-19. These tests may include: ??? Antibody blood test. This type of test can show if you had the virus in the past. It shows antibodies for the virus in the blood. The accuracy of these tests varies. And they are not available everywhere. An antibody test may not show if you have an infection right now. This is because it can take up to a few weeks for your body to make antibodies. None of the antibody tests can yet be used to tell if a person is immune to the virus. ??? Sputum culture. If you have a wet cough, you may be asked to cough up a bit of mucus (sputum) from your lungs. This is tested for the virus. It may be tested for pneumonia. ??? Imaging tests. You may have a chest X-ray or CT scan. Can you get COVID-19 again? Yes, you can get COVID-19 more than once. You may not have immunity. You could have lost the immunity. Or you may get COVID-19 from a different strain (variant) of the virus that you are not immune to. But the COVID-19 vaccine helps lower the risk for COVID-19. ?? Vaccines for COVID-19 The FDA and CDC advise vaccines for people 6 months and older to help prevent COVID-19. The vaccines can also make the illness less severe. It can keep you from needing to go to the hospital.?? And it can prevent the spread of the virus to others. No vaccine is 100% effective at preventing an illness. But getting a vaccine is important. or people can have the vaccine. Updated (bivalent) mRNA vaccines from [employer] and [employer] are advised. Other options are available for people who can't or won't get an mRNA vaccine. These are Novavax and [employer] COVID-19 vaccines. COVID-19 vaccines are given as a shot (injection) into the muscle. Ask your healthcare provider which vaccine is best for you and your family. COVID-19 vaccine booster shots People ages 6 months or older can get a COVID-19 booster shot. It's given a few months after their primary series. Boosters can help with protection against COVID-19 that may have decreased over time. Booster advice varies by vaccine, age, health, and COVID-19 variants. People ages 65 and older and some people with a very weak immune system should get an updated (bivalent) mRNA booster. Talk with your provider about your risk and how this applies to you. ?? How is COVID-19 treated? The best treatments right now are those to help your body while it fights the virus. This is calledsupportive care. It includes: ??? Rest. This helps your body fight the illness. ??? Fluids. Try to drink 6 to 8 glasses of fluidsevery day. Ask your provider which drinks are best for you. Don't have drinks with caffeine or alcohol. ??? Rmot-jps-mxoapon (OTC) medicine. These are used to help ease pain and reduce fever. Ask your provider which OTC medicine is safe for you to use. Talk with your provider if you have confirmed COVID-19. You may qualify for medicines approved by the FDA to prevent severe COVID-19 infection. You may need to stay in the hospital for severe illness. Your care may include: ??? IV fluids. These are given through a vein. This helps to replace fluids in your body. ??? Oxygen. You may be given extra oxygen. Or you may be put on a breathing machine (ventilator). This is done so you get enough oxygen in your body. ??? Prone positioning. Your healthcare team may regularly turn you on your stomach. This is called prone positioning. It helps increase the amount of oxygen you get to your lungs.Follow their instructions on position changes while you're in the hospital and at home. ??? Antiviral medicines. Antivirals stop the SARS-CoV-2 virus from spreading in the body. The FDA has approved certain antiviral medicines to treat mild to moderate COVID-19 in people who are more likely to get very sick. These treatments are not available for everyone. Talk with your provider to learn more. ??? Steroids or other anti-inflammatory medicines. These are used to lessen the inflammation that some people with COVID-19 have. Inflammation can lead to more trouble breathing. It can cause other complications or . ??? Monoclonal antibodies. These were once used for earlier COVID-19 strains, but monoclonal antibody treatment is not effective for the latest variant. Talk with your provider koki more. ??? COVID-19 convalescent plasma. Plasma is the liquid part of blood. People who had COVID-19 may be asked to donate plasma. This is called COVID-19 convalescent plasma. The plasma may have antibodies. Some people with COVID-19 who have very weak immune systems may benefit from this treatment. Your provider can help decide if it's right for you. ?? Are you at risk for COVID-19? You are at risk for COVID-19 if any of these apply to you: ??? You live in or traveled to an area with cases of COVID-19 ??? You had close contact (within 6 feet) with someone who had COVID-19 COVID-19 may be spread by people who don't show symptoms. Date last modified: 03/21/2023 ?? Last Reviewed Date: 2021 ?? 8824-7570 [employer]. All rights reserved. This information is not intended as a substitute for professional medical care. Always follow your healthcare professional's instructions. ?? * Laura Rice DO: PERFORM Event Display: Procedures Invasive Line Authored Date: [id number] Vascular Access Insertion Entered On: 08/03/2023 17:52 EDT Performed On: 08/03/2023 17:50 EDT by Laura Rice DO Vascular Access Insertion Date of Vascular Access Insertion : 08/03/2023 EDT Procedure Location Vascular Access : Emergency department Person recording insertion : Die Cast Supervisor Die Cast Supervisor of Vascular Access : Laura Rice DO Occupation of Vascular Access Die Cast Supervisor : Senior Tax Accountant/Resident Person Supervising Procedure : Brenton Rodriguez MD communication manager a member of PICC/IV Team : No Laura Rice DO - 08/03/2023 17:50 EDT Procedural Comments Risk Factors and Labs Reviewed : Yes Anticoagulation Therapy : No Antiplatelet Therapy : No Laura Rice DO - 08/03/2023 17:50 EDT Was vascular access order placed : No Vascular Access Type : Central line Time Out Performed : Yes Time Out Data : Patient identified, Site verified, Procedure verified Reason for Vascular Access Insertion : Exhausted peripheral IV attempts Suspected Vascular Access Infection : Yes, the access placed was exchanged over a guide wire Vascular Access Procedure Check : Emergency consent, Emergency patient Hand Hygiene prior to insertion : Yes Maximal sterile barriers used : Mask, Sterile gown, Large sterile full body drape, Sterile gloves, Ultrasound sterile cover, Cap Sterile Field Maintained : Yes Skin Preparation : Chlorhexidine (CHG) Skin Prep dry at first skin puncture : Yes Antimicrobial coated catheter used : Yes Successful central line placement : Yes Vascular Access Insertion Site : Jugular Vascular Access Insertion Side : Right Vascular Access Catheter Length : 15 Vessel Identified By : Ultrasound Vascular Access Insertion Circumstance : Emergent (life-threatening or code situation) Vascular Access Catheter Securement : Suture Vascular Access Dressing : Occlusive Follow-up CXR : Ordered Laura Rice DO - 08/03/2023 17:50 EDT DCP GENERIC CODE Suture needles : 1 [place] : 1 Scalpels : 1 Clamps : 1 Guide Wires : 1 Laura Rice DO - 08/03/2023 17:50 EDT Complications during Insertion : None Tolerated CLIP procedure well : Yes Insertion Attempts : 1 Dwayne Laura - 08/03/2023 17:50 EDT Admission evaluation note * Stevenson Plascencia DO: PERFORM, MODIFY Event Display: Admission Note Authored Date: [id number] Patient: ??CARLOS BRUMFIELD ? Age:??68 Years?Sex:??Male?:??1955?? Chief Complaint respiratory failure History of Present Illness 68-year-old male with COPD??on??chronic prednisone,??chronic hypoxemic respiratory failure on 4 L of home oxygen, CAD status post PCI,??severe??peripheral vascular disease status post femoral bypass,??right shoulder MRSA septic arthritis,??opioid use disorder,??hypertension, hyperlipidemia, chronicrib fractures,??chronic low back pain.?? Initially presented to the??hospital??on??the evening of August 03 with??acute on chronic hypoxemic and hypercarbic respiratory failure. ??He was placed on B iPAP??and ultimately failed noninvasive ventilation.?? He was intubated shortly after arrival to the medical ICU on the morning of August 04.?? He became hypotensive and was treated empirically forpresumed septic shock secondary to community-acquired pneumonia. ??Was extubated successfully this morning??and downgraded.?? Seen and examined on D5 a.?? Complaining of chronic pain??in his shoulders and low back. ??He is quite emotional about this and is asking for??an adequate pain regimen.?? Aside from that, his breathing appears at baseline he is not having any??cough, sputum production, wheeze. ??He is tolerating a p.o. diet. ??Last moved his bowels today in the medical ICU. ?? Many hospitalizations over the past year for COPD amongst other issue. There is increased healthcare utilization and presumed drug seeking behavior. Please see acute pain consult from the end of June for recommended pain control regimen. Orders have been adjusted Review of Systems Constitutional:??No weight loss, fever, chills, weakness or fatigue. Allergy/Immune: Denies any??Eczema or hives Eyes:??No visual loss, blurred vision, double vision or yellow sclera ENT:??No hearing loss, sneezing, congestion, runny nose or sore throat. Respiratory:??+ SOB, no cough of sputum production Cardiovascular:??No chest pain, chest pressure or chest discomfort. No palpitations or pedal edema. Gastrointestinal:??No anorexia, nausea, vomiting or diarrhea. No abdominal pain or blood in stool. Genitourinary:??No burning micturition. No urinary frequency or incontinence. Neurologic:??No headache, dizziness, syncope, unilateral weakness, ataxia, numbness or tingling in the extremities. No change in bowel or bladder control. Musculoskeletal:??+ chronic bilateral shoulder and low back pain Hematologic/Lymphatics:??No bleeding or bruising. No painful lymph nodes. Skin:??No rash or itching. Endocrine:??No reports of sweating. No cold or heat intolerance. No polyuria or polydipsia. Psychiatric:??No depression or anxiety. Physical Exam Vitals & Measurements T:??99.6?F?? TMIN:??97.7?F?? TMAX:??99.6?F?? HR:??104??(Peripheral)?? RR:??16?? BP:??164/72?? SpO2:??95%?? Constitutional: Alert, in no distress. Emotional Mental Status: Oriented to person, place and time. Head: Normocephalic. Eyes: Pupils are equal, round and reactive to light. Extraocular muscles intact. Ear, Nose and Throat: Oropharynx clear, mucous membranes moist. Neck: Supple, Full range of motion. Respiratory: Clear to auscultation. No wheezing, rales or rhonchi. Prolonged expiratory phase Cardiovascular: S1 S2 regular. No murmurs, rubs or gallops. Gastrointestinal: Abdomen soft, non-tender, non-distended. Neurologic: Cranial nerves II-XII grossly intact. No focal neurological deficits. Skin: No rashes or lesions. No petechiae or purpura.?? Musculoskeletal: Significantly limited range of motion in bialteral upper extremities Psychiatric: Frustrated, but cooperative Assessment/Plan Acute on chronic hypoxemic and hypercarbic respiratory failure Septic shock secondary to??community-acquired pneumonia COPD Opioid use disorder Acute on chronic humeral fractures CAD status post PCI Peripheral vascular disease Hypertension Hyperlipidemia Previous MRSA septic arthritis Normocytic hypochromic anemia ?? Back to baseline supplemental O2 Needs nocturnal noninvasive ventilation, ordered BiPAP Goal O2 sat 88 to 92% Start Breo and Spiriva to complete triple therapy Resume home Roflumilast Resume home??prednisone 15 mg p.o. daily Rocephin and azithromycin for community-acquired pneumonia, likely can complete a 5-day course ?? Pain regimen adjusted as per last??pain service consult note Oxycodone 20 mg instant release every 4 hours Gabapentin 600 mg 3 times daily Duloxetine 60 mg twice daily Lidocaine patches as needed Avoid??intravenous Dilaudid ?? Chronic Bactrim for MRSA septic arthritis??suppressive therapy ?? Continue atorvastatin and aspirin Restart home metoprolol and isosorbide dinitrate ?? H&H stable, no signs of acute bleed, continue to monitor and transfuse for hemoglobin less than??7 ?? DVT prophylaxis: Fully anticoagulated GI prophylaxis:??None indicated Fluids, electrolytes, nutrition: No fluids, electrolytes to be monitored and replete as necessary.?? Regular diet CODE STATUS: Full ?? Case discussed with the attending, Dr. Case ?? Stevenson Plascencia DO PGY-5 Problem List/Past Medical History Ongoing Anemia Anxiety CAD - Coronary artery disease Chronic low back pain COPD (chronic obstructive pulmonary disease) COPD exacerbation Deep vein thrombosis (DVT) of left lower extremity Epistaxis GERD (gastroesophageal reflux disease) HTN (hypertension) Hyperlipidemia Hyponatremia Metabolic alkalosis Multiple fractures of ribs [place] (myocardial infarction) X 3 Pulmonary cachexia due [...] (08/13/2015)???multiple lumbar spine surgeries Medications Inpatient Albuterol 90 mcg Inhaler, 180 mcg= 2 puffs, Inhalation, Every 4 hours, PRN Albuterol 90 mcg Inhaler, 180 mcg= 2 puffs, Inhalation, 4 times a day apixaban 5 mg oral tablet, 5 mg, By Mouth, 2 times a day atorvastatin 80 mg oral tablet, 80 mg, Orogastric Tube, Daily at bedtime Azithromycin IVPB, 500 mg, IVPB, Every 24 hours Bactrim DS Tablet, 1 tablet, By Mouth, 2 times a day Bisacodyl Supp, 10 mg= 1 supp, Rectally, Daily, PRN Ceftriaxone Inj, 1 Gm, IVPB, Every 24 hours Collagenase Topical Oint, 1 application, Topically, Daily Dextrose 50% Inj Syringe (25Gm), 12.5 Gm, IV Push Slowly, Every 20 minutes, PRN Dextrose 50% Inj Syringe (25Gm), 25 Gm, IV Push Slowly, Every 15 minutes, PRN DULoxetine Capsule, 60 mg, By Mouth, 2 times a day gabapentin 300 mg oral capsule, 600 mg, By Mouth, 3 times a day Glucose Gel, 15 Gm, By Mouth, Every 20 minutes, PRN Glucose Gel, 30 Gm, By Mouth, Every 20 minutes, PRN Insulin LISPRO Sliding Scale, 2-10 units, Subcutaneous Injection, Every 6 hours Milk of Magnesia Liquid, 30 mL, Orogastric Tube, Daily MiraLax Powder, 17 Gm= 1 pack/packet, By Mouth, Daily, PRN NaCL 0.9% Flush, 3 mL, IV Push, Every 8 hours, PRN oxyCODONE 5 mg oral tablet, 20 mg, By Mouth, Every 4 hours, PRN Peridex 0.12% Liquid, 15 mL, Topically, 2 times a day predniSONE 5 mg oral tablet, 15 mg, By Mouth, Daily Senna 8.6 mg oral tablet, 8.6 mg= 1 tablet, Orogastric Tube, Daily Tylenol 325 mg oral tablet, 975 mg, By Mouth, Every 8 hours Vitamin B1 100 mg oral tablet, 100 mg, Orogastric Tube, Daily Home acetaminophen 325 mg oral tablet, 650 mg= 2 tablet, By Mouth, Every 4 hours, PRN albuterol 0.042% inhalation solution, 1.25 mg= 3 mL, Neb, Every 4 hours atorvastatin 80 mg oral tablet, 80 mg= 1 tablet, By Mouth, Daily [place]eer Saline 0.65% nasal gel, 1 sprays, Nares, [...] 4 mg/0.1 mL nasal spray, See Instructions Narcan 4 mg/0.1 mL nasal spray, 4 mg, Nares, Both, Once oxyCODONE 5 mg oral tablet, 5 mg= 1 tablet, By Mouth, Every 6 hours, PRN predniSONE 5 mg oral tablet, 15 mg= [...] Recorded influenza virus vaccine, inactivated 02/03/2023 Recorded [id number] 12y+ bivalent booster vax 08/23/2022 Recorded SARS-CoV-2 [...] : VIS GIVEN ??NO EGG ALLERGY * Jailyn Frazier DO: MODIFY, MODIFY, PERFORM Event Display: Admission Note Authored Date: [id number] Patient: ??CARLOS BRUMFIELD ? Age:??68 Years?Sex:??Male?:??1955?? Chief Complaint/Reason for Consultation see jovana level sheet 1 acute respiratory distress History of Present Illness 68-year-old male with medical history COPD on chronic steroids, chronic hypoxic respiratory failureon 4 L home O2, CAD status post stent in 1999 and 2006, severe peripheral vascular disease status post femoral bypass, recent right shoulder MRSA septic arthritis who presented to ED due to respiratory distress.?? Patient was recently discharged from [facility] on 08/01. ??He was hospitalized for??painmanagement for right shoulder pain??and discharged on??short course oxycodone. Patient's family called EMS due to concerns for respiratory distress and lethargy.??EMS initially found patient at home satting 80% on room air and placed him to CPAP.? In the ED, patient was??transitioned??to BiPAP with nebulized albuterol.?? He had soft blood pressures with systolic 70s and was given 1 L IV fluids.?? Due to concern for pulmonary edema with increased lung crackles on exam, he was not given any further fluids and started on Levophed.?? ABG 7.2 / on 40% FiO2.?? Labs significant for leukocytosis 25.1, BUN 67/creatinine 2.9 (prior creatinine baseline 0.8), normal LFTs, NT proBNP 1140, high-sensitivity troponin 73, COVID-positive.?? Chestx-ray showed opacity right midlung and coarse interstitial lung markings in the bases. ?? On arrival to??ICU,??patient noted to be??obtunded, was withdrawing??to pain however not following commands or visually tracking.?? Due to worsening mental status as well as??ABG??showing worsening acidemia, patient was??intubated. Review of Systems Unable to assess due to intubated/sedated Objective Measurements?? Height: 179 cm (08/04/23) Weight: 56.4 kg (08/04/23) Dry Weight: 56.4 kg (08/04/23) Body Mass Index:??17.6 kg/m2??Low (08/04/23) ? Vital Signs?? Temperature: 98.3 DegF (08/04/23 00:16:00) Temperature Route: Oral (08/04/23 00:16:00) Pulse Rate: 69 bpm (08/04/23 00:16:00) Heart Rate Monitored:??95 bpm??High (08/04/23 00:05:00) Respiratory Rate:??14 br/min??Low (08/04/23 00:16:00) Vented: No (08/04/23 00:05:00) Systolic Blood Pressure: 115 mm Hg (08/04/23 00:16:00) Diastolic Blood Pressure: 69 mm Hg (08/04/23 00:16:00) Blood pressure sites: Arm, right (08/04/23 00:16:00) Mean Arterial Pressure: 84 mm Hg (08/04/23 00:16:00) Pulse Pressure: 46 mm Hg (08/04/23 00:16:00) Oxygen Saturation: 100 % (08/04/23 00:05:00) Mode of Delivery (Oxygen): Ventilator (08/04/23 00:05:00) FiO2: 100 % (08/04/23 00:01:00) End Tidal CO2: 36 mm Hg (08/04/23 00:05:00) Early Warning Score: 6 (08/03/23 23:07:13) ? Physical Exam General:??Intubated/sedated HEENT:??pupils equal and sluggish,??dry mucous membranes CV:??RRR. S1, S2. No murmurs, rubs, or gallops. Respiratory:??Intubated. CTA bilaterally. GI:??Bowel sounds present. Soft, non-tender, non-distended. :??Selby in place draining dark yellow urine?? MSK:??Warm, well-perfused, no peripheral edema Neuro:??Sedated Psych:??Sedated Skin:??No lesions, wounds, rashes Assessment/Plan 68-year-old male with medical history COPD on chronic steroids, chronic hypoxic respiratory failureon 4 L home O2, CAD status post stent in 1999 and 2006, severe peripheral vascular disease status post femoral bypass, recent right shoulder MRSA septic arthritis who presented to ED due to respiratory distress, found to have septic??shock,??intubated for??acute hypoxic hypercapnic respiratory failure, and admitted to [facility] ICU for further management. ?? Neurology #Acute toxic metabolic encephalopathy Somnolent on arrival, likely due to??accumulation of??sedating home medications (oxycodone,??gabapentin)??in setting of SRINIVASAN ?? Plan: - Analgesia with: Fentanyl pushes PRN, goal CPOT??<2 - Sedation with: Propofol gtt, goal RASS 0 - Daily sedation vacation - Holding home duloxetine, gabapentin, hydroxyzine ?? Cardiovascular #Septic shock #History of LLE DVT #Acute myocardial injury EKG nonischemic, troponin elevated likely in setting of demand. ?? Plan: - Levophed??and vasopressin??for??MAP >??65 - Stress dose steroids - Continue home Eliquis (for hx??DVT) - Continue home statin - Holding home metoprolol, imdur ?? Respiratory #Acute hypoxic and hypercarbic??respiratory failure #Acute respiratory acidosis #COPD on chronic??steroids??and home O2 Vent settings: ACVC 450/24/5/100 ?? Plan: -Continue lung protective ventilation,??IBW:??78??kg -Wean FiO2 -DuoNebs -Budesonide nebs -Pt on chronic steroids, continue stress dose steroids as above ?? Infectious Disease #Septic shock #Pneumonia, aspiration/CAP/COVID-19 #Hx septic arthritis on chronic suppressive Bactrim Shoulder XR negative for osteomyelitis. CXR shows R lower lobe opacity, possible infectious source. ?? Plan: -Vanco/Zosyn. Deescalate following cultures. -Azithromycin for 3 days, 08/04- -Steroids as above -Follow-up blood and sputum??cultures -Follow-up UA -MRSA swab,??urine Legionella,??urine strep -Respiratory viral panel -Consult antimicrobial stewardship in AM??for antivirals -Enhanced respiratory isolation for 20 days, 08/03- -Holding home roflumilast ?? Endocrine No active issues ?? Plan: -f/u TSH -POC every 6 hours -SSI -Hypoglycemia emergency measures ?? Renal/ #Acute kidney injury, likely prerenal #Mixed acid-base disturbance Baseline creatinine 0.8. ??SRINIVASAN likely secondary to??hypoperfusion from septic shock Delta-delta 1.3 suggests??HAGMA with metabolic alkalosis. Suspected due to uremia and hypovolemia/contraction alkalosis. ?? Plan: - Monitor I/O's - Selby catheter placed for critical output monitoring ?? GI No active issues ?? Plan: -NPO -Start tube feeds in a.m. if??remains intubated - Bowel regimen ?? Heme/Onc #Chronic??Normocytic Anemia ?? Plan: - Monitor H/H,??transfuse Hgb < 7 ? Quality Measures: Feeding: NPO Analgesia/SAT: fentanyl pushes Sedation: propofol Thrombo ppx:??Elilquis HOB: 30-45 Ulcer ppx: Famotidine Glycemic control:??SSI SBT: daily Bowel regimen: yes Indwelling lines/tubes: R IJ 08/04; selby 08/04 Deescalation of antibiotics: no, pending cultures ?? Code Status: FULL per [facility] 07/2022 HCP/Contact:??Nehemias Brumfield, please update in AM ?? Patient seen and discussed with attending physician, ??Fredrick Frazier, DO Internal Medicine PGY-3 Pager #: [phone] ?? Histories Allergies Allergies ?(Active and Proposed [...] Metabolic alkalosis Multiple fractures of ribs Old LA (myocardial infarction) X 3 Pulmonary cachexia due [...] to give the dose of NARCAN Nasal [place]. Remove t... nalOXONE (Narcan 4 mg/0.1 mL nasal spray)?4?Milligram?Nares, Both?Once Oxycodone (oxyCODONE 5 mg oral tablet)?5?Milligram?1?tablet?By Mouth?Every 6 hours?as needed?as needed for pain Pantoprazole (Protonix 40 mg oral delayed release tablet)?1?tab(s)?40?Milligram?By Mouth?Daily PredniSONE (predniSONE 5 mg oral tablet)?3?tab(s)?15?Milligram?By Mouth?Daily?for 30?Days?15 mg daily maintanence dose after the initial taper roflumilast (roflumilast 500 mcg oral tablet)?1?tab(s)?500?Microgram?By Mouth?Daily Sodium Chloride Nasal (Killdeer Saline 0.65% nasal gel)?1?spray(s)?Nares, Both?4 times a [...] Recent Labs BLOOD COUNT & DIFF WBC 25.1 k/mm3 (High)?? 08/03/2023 16:48 RBC 3.07 m/mm3 (Low)?? 08/03/2023 16:48 Hgb 8.4 Gm/dL (Low)?? 08/03/2023 16:48 Hct 28.5 % (Low)?? 08/03/2023 16:48 MCV 92.8 femtoliters ()?? 08/03/2023 16:48 MCH 27.4 pg ()?? 08/03/2023 16:48 MCHC 29.5 g/dL (Low)?? 08/03/2023 16:48 Platelet Count 376 k/mm3 ()?? 08/03/2023 16:48 RDW-SD 55.6 femtoliters (High)?? 08/03/2023 16:48 MPV 8.8 femtoliters (Low)?? 08/03/2023 16:48 Nucleated RBC (Automated) 0.1 #/100 WBC'S ()?? 08/03/2023 16:48 Abs. NRBC 0.0 k/mm3 ()?? 08/03/2023 16:48 Abs. Neut 22.7 k/mm3 (High)?? 08/03/2023 16:48 Abs. Lymph 0.6 k/mm3 (Low)?? 08/03/2023 16:48 Abs. Nolan 1.5 k/mm3 (High)?? 08/03/2023 16:48 Abs. Eo 0.0 k/mm3 ()?? 08/03/2023 16:48 Abs. Baso 0.0 k/mm3 ()?? 08/03/2023 16:48 Neut % 90.3 % (High)?? 08/03/2023 16:48 Lymph % 2.4 % (Low)?? 08/03/2023 16:48 Nolan % 5.9 % ()?? 08/03/2023 16:48 Eos % 0.0 % ()?? 08/03/2023 16:48 Baso % 0.2 % ()?? 08/03/2023 16:48 RBC Morphology MODERATE ()?? 08/03/2023 16:48 Imm Gran 1.2 % ()?? 08/03/2023 16:48 Abs. Imm Gran 0.3 k/mm3 ()?? 08/03/2023 16:48 ?? BLOOD GAS pH 7.12 (Critical)?? 08/03/2023 23:45 pCO2 69 mm Hg (High)?? 08/03/2023 23:45 pO2 43 mm Hg (Critical)?? 08/03/2023 23:45 Bicarbonate, Estimated 21 mmol/L (Low)?? 08/03/2023 23:45 Specimen Type - Blood Gas ARTERIAL ()?? 08/03/2023 23:45 Percent O2 (FIO2) 40 ()?? 08/03/2023 23:45 ?? CARDIAC Nt-Probnp 1140 pg/mL (High)?? 08/03/2023 16:48 High Sensitivity Troponin (HSTnT) 73 ng/L (Critical)?? 08/03/2023 16:48 ?? CHEM GENERAL Sodium 137 mmol/L ()?? 08/03/2023 16:48 Potassium 5.1 mmol/L ()?? 08/03/2023 16:48 Chloride 100 mmol/L ()?? 08/03/2023 16:48 Bicarbonate Level 21 mmol/L (Low)?? 08/03/2023 16:48 Anion Gap 16 ()?? 08/03/2023 16:48 Glucose Level 85 mg/dL ()?? 08/03/2023 16:48 BUN 67 mg/dL (High)?? 08/03/2023 16:48 Creatinine-Blood 2.9 mg/dL (High)?? 08/03/2023 16:48 Estimated GFR Creatinine 23 ML/MIN/1.73 M2 ()?? 08/03/2023 16:48 Calcium 8.3 mg/dL (Low)?? 08/03/2023 16:48 Protein, Total 5.5 Gm/dL (Low)?? 08/03/2023 16:48 Albumin 3.3 Gm/dL (Low)?? 08/03/2023 16:48 AG Ratio 1.5 ()?? 08/03/2023 16:48 Alkaline Phosphatase 174 units/L (High)?? 08/03/2023 16:48 AST (SGOT) 32 units/L ()?? 08/03/2023 16:48 ALT (SGPT) 25 units/L ()?? 08/03/2023 16:48 Bilirubin, Total <0.2 mg/dL ()?? 08/03/2023 16:48 Lactate 1.9 mmol/L ()?? 08/03/2023 16:48 ?? URINE OTHER Est Creatinine Clearance 19.99 mL/min ()?? 08/04/2023 00:58 ?? VIROLOGY COVID-19 by RT-PCR POSITIVE (Abnormal)?? 08/03/2023 16:56 ? CBC, CBC w/Diff?? CBC?? Differential?? WBC:??25.1 k/mm3??High (16:48) Abs. Neut:??22.7 k/mm3??High (16:48) RBC:??3.07 m/mm3??Low (16:48) Abs. Lymph:??0.6 k/mm3??Low (16:48) Hct:??28.5 %??Low (16:48) Abs. Nolan:??1.5 k/mm3??High (16:48) RDW-SD:??55.6 femtoliters??High (16:48) Abs. Eo: 0 k/mm3 (16:48) Nucleated RBC (Automated): 0.1 #/100 WBC'S (16:48) Abs. Baso: 0 k/mm3 (16:48) Abs. NRBC: 0 k/mm3 (16:48) Neut %:??90.3 %??High (16:48) ?? Lymph %:??2.4 %??Low (16:48) ?? Nolan %: 5.9 % (16:48) ?? Eos %: 0 % (16:48) ?? Baso %: 0.2 % (16:48) ?? RBC Morphology: MODERATE (16:48) ?? Imm Gran: 1.2 % (16:48) ?? Abs. Imm Gran: 0.3 k/mm3 (16:48) ? Urinalysis Est Creatinine Clearance: 19.99 mL/min (00:58) ?? Microbiology ?? COVID-19 (Novel Coronavirus), Rapid PCR?? Completed?? Source: Nasal Body Site: Nose Collected Dt/Tm: 08/03/2023 16:00 Last Updated Dt/Tm: 08/03/2023 18:28 ? * Elmer Alcala MD: PERFORM Event Display: Admission Note Authored Date: [id number] ?? Critical care attending: ?? Patient seen and examined multiple times during the night 08/03 into 08/04. I have reviewed the patient???s medical history, physical exam findings, and the assessment and plan as documented in the resident's ??note. I am in agreement with the plan of care as documented in the note with the following highlights and additions: ?? 68-year-old male with medical history COPD on chronic steroids, chronic hypoxic respiratory failureon 4 L home O2, CAD (stent in 1999 and 2006), severe peripheral vascular disease status post femoral bypass, recent right shoulder MRSA septic arthritis who presented to ED due to respiratory distress, found to have septic??shock,??intubated for??acute hypoxic hypercapnic respiratory failure, and admitted to [facility] ICU for further management. ?? Septic shock due to probable pneumonia vs. bacteremia vs. other ( given recent??MRSA septic arthritis) Acute hypoxemic and hypercarbic Respiratory Failure requiring intubation and mechanical ventilation?? Acute toxic metabolic encephalopathy -??possible??medication related??(oxycodone,??gabapentin)??in setting of SRINIVASAN Acute COPD exacerbation COVID infection - unclear whether pneumonia Hx septic arthritis on chronic suppressive Bactrim Opiate dependence Severe farilty and malnutrition ?? - admit to Medical ICU for vasopressor support - on arrival to ICU, obtunded with worsening respiratory acidosis (pH 7.12) and was emergently intubated - fentanyl for pain - goal CPOT < 2??Sedation with: Propofol gtt, goal RASS 0 to -2,?? Daily sedation vacation - Hold home duloxetine, gabapentin, hydroxyzine - fluid bolus with improved vasopressor requirements - continue norepinephrine and Vasopressin - wean as tolerated when norepi < 0.1 mcg/ kg/ min discontinue vasopressin - titrate for goal MAP > 65 mmHg - start stress??Stress dose steroids with hydrocortisone 100 mg q 8 hrs - Continue home apixaban(for hx??DVT)??Hold metoprolol, Imdur -?? Vent settings: AC VC 450/24/5/50 % -??lung protective ventilation,??IBW:??78??kg -?? Budesonide , DuoNeb scheduled, albuterol PRN - Vancomycin + piperacillin / tazobactam x 24-48 hrs ,??de-escalate based on cultures. - Azithromycin 500mg x??3 days, obtain legionella Ag - Respiratory viral panel, -Enhanced respiratory isolation for 20 days, 08/03- -??Selby catheter placed for critical output monitoring - nutrition consult and start tube feeds if not extubated in 24 hrs ?? Code Status: FULL per [facility] 07/2022? HCP/Contact:??Nehemias Brumfield? Critical Care Time =?50 minutes ?? (This represents the total time I personally spent evaluating, managing and providing care exclusive of time spent for separately billable procedures.) EKG study * Event Display: EKG Authored Date: * Event Display: ECG 12-Lead Authored Date: Please click on pdf link to open report * Event Display: ECG 12-Lead Authored Date: Ventricular Rate: 81 BPM Atrial Rate: 81 BPM P-R Interval: 130 ms QRS Duration: 110 ms Q-T Interval: 364 ms QTC Calculation(Bazett): 422 ms P Gilbert: -19 degrees R Gilbert: -7 degrees T Gilbert: 54 degrees Sinus rhythm with Premature atrial complexes Incomplete right bundle branch block Borderline ECG When compared with ECG of 27-JUL-2023 18:45, Premature atrial complexes are now Present Incomplete right bundle branch block is now Present Confirmed by ARMINDA JEREZ ([id number]) on 08/04/2023 8:18:35 AM [place]: ARMINDA JEREZ Cardiology * Event Display: Cardiac Rhythm Strips Authored Date: Hospital Progress note * Beronica SHANNON, Ana: PERFORM, SIGN, VERIFY Event Display: Progress Note Hospital Authored Date: [id number] Patient: CARLOS BRUMFIELD Age: 68 years Sex: Male : 1955 Associated Diagnoses: None Author: Beronica SHANNON, Ana Findings Problem Related to Alteration in Respiratory Function (new) : Alteration in Respiratory Function/new 08/08/2023 8:00 EDT Alteration in Resp Status Related to COPD, COVID - 19, Other: hypoxic hypercapnic resp failure, septic shock Goals & Outcomes, Respiratory Pt will maintain/resume baseline physical assessment, Pt will notdevelop complications r/t mechanical ventilation, Pt will maintain adequate nutritional intake, Pt will maintain/resume normal fluid/electrolyte balance, Pt will not develop complications r/t immobility, Pt will demonstrate proper technique w/self care procedures Interventions, Respiratory Assess/monitor tolerance to IV infusions; verify rate/dose, Assess for and report S&S of respiratory distress, Position for comfort & optimal oxygenation, Monitor sputum color & consistency. Report changes to MD, Teach purse lip breathing as needed for breathing retraining BH Goals/Interventions, Respiratory Yes Respiratory, Problem Start 08/04/2023 0:00 Reviewed Plan with, Respiratory Patient Patient Progression, Respiratory Patient progressing according to plan . Nursing Data Neurological Data. : Neurological Data. 08/08/2023 8:00 EDT Neurological Symptoms Weakness or loss of muscle strength Level of Consciousness Full Consciousness Orientated to person, place, time Person, Place, Time, Event Facial Symmetry Intact Characteristics of Speech Clear and normal Swallowing Difficulty None Pupil description, left Regular Pupil description, right Regular Pupil reaction, left Brisk Pupil reaction, right Brisk Strength LUE 4-Active movement against gravity & some resistance Strength RUE 4-Active movement against gravity & some resistance Strength LLE 4-Active movement against gravity & some resistance Strength RLE 4-Active movement against gravity & some resistance Tone LUE Normal Tone RUE Normal Tone LLE Normal Tone RLE Normal Sensation LUE Intact Sensation RUE Intact Sensation LLE Intact Sensation RLE Intact Movement LUE Spontaneous, To command Movement RUE Spontaneous, To command Movement LLE Spontaneous, To command Movement RLE Spontaneous, To command Gait Unable to assess Response Eye Opening Spontaneously Motor Response-Adult Obeys commands Verbal Response-Adult Oriented and converses [place] Coma Score 15 Neuro WNL except Eyes and Movements Conjugate gaze: Move in same direction at same speed Memory Intact Swallow - Neuro Normal . Respiratory/Pulmonary Data. : Respiratory/Pulmonary Data. 08/08/2023 8:00 EDT Respiratory Symptoms None Respiratory effort Unlabored Chest expansion Symmetrical Accessory Muscles use No Patient participation Cooperative Upper Airway Wheezing, expiratory Cough Non-productive Respiratory pattern Regular Left Upper Lobe Breath Sounds Wheezing, expiratory, Clear Right Upper Lobe Breath Sounds Clear, Wheezing, expiratory Right Middle Lobe Breath Sounds Clear, Wheezing, expiratory Left Lower Lobe Breath Sounds Wheezing, expiratory, Diminished Right Lower Lobe Breath Sounds Diminished, Wheezing, expiratory Respiratory distress None Respiratory Treatment(s) Cough and deep breathe, Incentive spirometry, Updraft Nebulizer Therapy/MDI, Other: 4 L 02 via nasal cannula Respiratory WNL except . Evaluation Patient was alert and oriented x4.Pt. was able to follow commands, 4 out 5 strength to all extremities. Denies h/a, n/t / dizziness or changes in vision. Denies decreased sensations. Vitals WNL. Lungsounds dim with occ. exp. wheezes and non productive cough. 4L of o2 via nasal cannula. Denies SOB,chest pain, or respiratory concerns. Covid isolation precautions maintained.Bowel sounds present. No bowel movement at this time. Voiding WNL. No complaints of pain at this time.Two per. Iv removed ,tips intact, dressings applied. Dressing changed to right shoulder and left ankle. Education provided on wound care/dressing orders. Pt. scheduled to be discharged home via ambulance. Discharge paperwork reviewed with pt. Pt. agreeable with current course of treatment plan. Bed locked, in lowest position. bed alarm on, call giraldo within reach, patient demonstrated use of call giraldo. safety maintained. . * Korin Chowdhury: PERFORM, SIGN, VERIFY Event Display: Progress Note Hospital Authored Date: [id number] Patient: CARLOS BRUMFIELD Age: 68 years Sex: Male : 1955 Associated Diagnoses: None Author: Korin Chowdhury Findings Problem Related to Alteration in Respiratory Function (new) : Alteration in Respiratory Function/new 08/07/2023 21:00 EDT Alteration in Resp Status Related to COPD, COVID - 19, Other: hypoxic hypercapnic resp failure, septic shock Goals & Outcomes, Respiratory Pt will maintain/resume baseline physical assessment, Pt will notdevelop complications r/t mechanical ventilation, Pt will maintain adequate nutritional intake, Pt will maintain/resume normal fluid/electrolyte balance, Pt will not develop complications r/t immobility, Pt will demonstrate proper technique w/self care procedures Interventions, Respiratory Assess for and report S&S of respiratory distress, Position for comfort & optimal oxygenation, Teach/encourage use of incentive spirometer, Teach the proper use of inhalers BH Goals/Interventions, Respiratory Yes Respiratory, Problem Start 08/04/2023 0:00 Reviewed Plan with, Respiratory Patient Patient Progression, Respiratory Patient progressing according to plan . Nursing Data Neurological Data. : Neurological Data. 08/07/2023 20:11 EDT Tongue Disposition Midline Neurological Symptoms None Level of Consciousness Full Consciousness Orientated to person, place, time Person, Place, Time, Event Hallucinations None Facial Symmetry Intact Characteristics of Speech Clear and normal Swallowing Difficulty None Pupil description, left Regular Pupil description, right Regular Pupil reaction, left Brisk Pupil reaction, right Brisk Strength LUE 5-Active movement against gravity & full resistance Strength RUE 5-Active movement against gravity & full resistance Strength LLE 4-Active movement against gravity & some resistance Strength RLE 4-Active movement against gravity & some resistance Tone LUE Normal Tone RUE Normal Tone LLE Normal Tone RLE Normal Sensation LUE Intact Sensation RUE Intact Sensation LLE Intact Sensation RLE Intact Movement LUE Spontaneous, To command Movement RUE Spontaneous, To command Movement LLE Spontaneous, To command Movement RLE Spontaneous, To command Gait Unable to assess Tremors None Response Eye Opening Spontaneously Motor Response-Adult Obeys commands Verbal Response-Adult Oriented and converses [place] Coma Score 15 1 - 10 Pain Scale Score 10 Pain Interventions Pharmacological, Repositioning Neuro WNL except Corneal/Blink Reflex Intact right, Intact left Eyes and Movements Conjugate gaze: Move in same direction at same speed Headache None Memory Intact Swallow - Neuro Normal . Evaluation Patient is A&O x4, speech clear, follows commands. Denies headache, dizziness, nausea, numbness/tingling, vision changes. No chest pain or respiratory distress, reports that breathing has improved, remains on 4L O2 via NC, tolerating well. Dressing to R shoulder and L ankle CDI. Reports 10/10 pain to shoulder and states that current pain regimen is not effective. Awaiting PT eval. Enhanced respiratory precautions maintained. Will continue to monitor and document any changes in assessment. See CIS for further details. . Discharge Information Rehabilitation Discharge : Rehab Discharge Index 08/07/2023 9:04 EDT Comments on treatment indicated 68yoM initially presented to the hospital on theAugust 03 with acute on chronic hypoxemic and hypercarbic respiratory failure. WBAT. Fall risk, PT for strengthening, bed mobility , transfer balance training, gait training. RecommendedRehab. Walker: distance < 10 Distance pt will ambulate 10ft/RW Full chart review completed Yes Hospital course Hospital course Plan of care PT Gait training, Transfer training, Therapeutic exercise, Functional Activities, Neuromuscular education * Teressa Goodwin RN: PERFORM, SIGN, VERIFY Event Display: Progress Note Hospital Authored Date: [id number] Patient: CARLOS BRUMFIELD Age: 68 years Sex: Male : 1955 Associated Diagnoses: None Author: Teressa Goodwin RN Findings Problem Related to Alteration in Respiratory Function (new) : Alteration in Respiratory Function/new 08/07/2023 13:00 EDT Alteration in Resp Status Related to COPD, COVID - 19, Other: hypoxic hypercapnic resp failure, septic shock Goals & Outcomes, Respiratory Pt will not develop complications r/t mechanical ventilation Interventions, Respiratory Assess for and report S&S of respiratory distress, Initiate VAP prevention strategies, Position for comfort & optimal oxygenation, Teach/encourage use of incentive spirometer, Teach the proper use of inhalers Goals/Interventions, Respiratory Yes Respiratory, Problem Start 08/04/2023 0:00 Reviewed Plan with, Respiratory Patient Patient Progression, Respiratory Patient progressing according to plan . Evaluation Kamlesh is alert and oriented x3, pt c/o pain in his shoulders mostly, pain medictions given as ordered, pt able to swallow pills whole with water. pt on 4lnc, ls with rhonchi at bases, exp wheezing. ptincontinent of urine, primo placed. dressing changes to right shulder, left ankle done. buttocks red, epc applied. pt call giraldo within reach and pt calling for needs. . Consult note * Bernardo FREEMAN, Dena Nolan: MODIFY, PERFORM Event Display: Consultation Note Authored Date: Patient: ??CARLOS BRUMFIELD ? Age:??68 Years?Sex:??Male?:??1955?? Chief Complaint left ankle Reason for Consultation left ankle History of Present Illness Patient is a 68-year-old male seen at request the medical service for left ankle.?? Patient was admitted on 08/03 for SOB; diagnosed w/septic shock, SRINIVASAN, and COVID. HPI obtained from pt and chart review due to pt's slight AMS. ??[place] to me [place] [facility] [place]Pt w/hx of PAD, vascular surgeries to LLE, and chronic recurrent ulcer to left lateral ankle since summer that appeared w/o known trauma/injury. Patient with history??of??I&D x2 and wound VAC placement to right shoulder at [facility]??due to history of septic MRSA arthritis.??Pt lives at home; ambulates independently at home but has cane/walker and wheelchair??to use as needed.? PMH: right shoulder??septic arthritis on Doxycycline & NPWT, COPD on home O2 2-3L with frequent exacerbation, chronic abd and back pain,??CAD, HTN, HLD,??LLE DVT on Eliquis,??anxiety/depression, prior alcohol use disorder, chronic foot ulcers, multiple fractures due to fall, GERD, underweight, old LA x3, PVD, history of smoking greater than [...] abdominal pain. :??Denies??urinary incontinence Neurologic:??No headache, dizziness. Musculoskeletal:??generalized body pain Skin:??No rash or itching. See??HPI Physical Exam Vitals & Measurements T:??97.7?F?? TMIN:??97.7?F?? TMAX:??99.0?F?? HR:??86??(Monitored)?? RR:??9?? BP:??170/81??SpO2:??96%?? Constitutional:??WD/thin male in no distress. Mental Status:??Alert/oriented to person, place; not time. Forgetful at times Head: Normocephalic. Cardiac: RRR, +S1/S2. No murmur, rub, gallop. Respiratory: Unlabored breathing; on O2 via NC.??Lungs clear to auscultation bilaterally. Gastrointestinal: Abdomen soft,??+bowel sounds, rounded, no point tenderness Neurologic: Moves all extremities x4 independently; repositions self independently. Skin: Warm, pink dry. No rashes or lesions. No petechiae or purpura.??Wound to anterior right shoulder??measuring estimated 0.7 x 0.2 cm within pink wound bed; no depth or tunneling noted. Moderate amount of pale yellow serous??drainage noted on removed dressing. Musculoskeletal: No cyanosis or clubbing. +hammertoes bilateral toes Extremities:??Faint posterior tibial??and dorsalis pedis pulses??bilaterally.?No pitting edema noted. Superficial ulcer to left lateral malleolus within scarred area; covered w/scant amt of dried s erosanguineous drainage. No erythema noted. Psychiatric: Euthymic mood, normal affect. Forgetful at times?? Assessment/Plan Assessment:??Patient with past medical history for right shoulder??septic arthritis on Doxycycline & NPWT, COPD on home O2 2-3L with frequent exacerbation, chronic abd and back pain,??CAD, HTN, HLD,??LLE DVT on Eliquis,??anxiety/depression, prior alcohol use disorder, chronic foot ulcers, multiple fractures due to fall, GERD, underweight, old LA x3, PVD, history of smoking greater than 40 pack years,??DJD, hx osteomyelitis to left fibula who presents with chronic wound to right shoulder dueto hx of septic MRSA arthritis??and recurrent wound to left ankle due to hx of PAD.? 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 Pat dry. Apply 2 layers Xeroform to wound bed; cut to size of wound. Cover w/gauze and lightly wrap w/shaw. Change QOD -Sharp debridement is not medically necessary at this time ?? Peripheral artery disease (I73.9): hx of PAD, vascular surgeries to LLE, and chronic recurrent ulcer to left lateral ankle since summer w/o known trauma/injury ?? Wound of right shoulder (S41.001A):??Recommend??cleaning wound w/NS, pat dry. Apply Skin Prep to periwound edge and apply Aquacel Ag to wound bed; cut to size of wound. Cover w/Mepilex 2x2 dressing. Change QOD -history??of??I&D x2 and wound VAC placement to right shoulder at [facility]??due to history of septic MRSA arthritis -Sharp debridement is not medically necessary at this time ? Please re-consult wound care MD/TODD for deterioration in wound/skin status. ?? 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 Thank you for allowing me to [...] Metabolic alkalosis Multiple fractures of ribs Old [place] (myocardial infarction) X 3 Pulmonary cachexia due [...] endarterectomy (08/13/2015)???multiple lumbar spine surgeries Medications Inpatient apixaban 5 mg oral tablet, 5 mg, By Mouth, 2 times a day atorvastatin 80 mg oral tablet, 80 mg, Orogastric Tube, Daily at bedtime Azithromycin IVPB, 500 mg, IVPB, Every 24 hours Bactrim DS Tablet, 1 tablet, By Mouth, 2 times a day Bisacodyl Supp, 10 mg= 1 supp, Rectally, Daily, PRN Ceftriaxone Inj, 1 Gm, IVPB, Every 24 hours Collagenase Topical Oint, 1 application, Topically, Daily Dextrose 50% Inj Syringe (25Gm), 12.5 Gm, IV Push Slowly, Every 20 minutes, PRN Dextrose 50% Inj Syringe (25Gm), 25 Gm, IV Push Slowly, Every 15 minutes, PRN Dilaudid Inj, 0.5 mg= 0.5 mL, IV Push Slowly, Every 6 hours, PRN Duoneb Inhalation Solution, 1 vials, BAND Nebulizer, 4 times a day FENTanyl 1000mcg / 100mL NaCl 1,000 mcg, 1000 mcg= 100 mL, IV Infusion Glucose Gel, 15 Gm, By Mouth, Every 20 minutes, PRN Glucose Gel, 30 Gm, By Mouth, Every 20 minutes, PRN HydroCORTisone Inj, 100 mg, IV Push Slowly, Every 12 hours Insulin LISPRO Sliding Scale, 2-10 units, Subcutaneous Injection, Every 6 hours Levophed 4 mg / D5W 250 mL 4 mg, 4 mg= 250 mL, IV Infusion Milk of Magnesia Liquid, 30 mL, Orogastric Tube, Daily Mineral Oil /Petrolatum Ophth, 1 application, Eyes, Both, Every 4 hours MiraLax Powder, 17 Gm= 1 pack/packet, By Mouth, Daily, PRN NaCL 0.9% Flush, 3 mL, IV Push, Every 8 hours, PRN Peridex 0.12% Liquid, 15 mL, Topically, 2 times a day Propofol 1% /100 mL 1,000 mg, 1000 mg= 100 mL, IV Infusion Senna 8.6 mg oral tablet, 8.6 mg= 1 tablet, Orogastric Tube, Daily Vasopressin 20 units / NaCL 100 mL 20 units, 20 units= 100 mL, IV Infusion Vitamin B1 100 mg oral tablet, 100 mg, Orogastric Tube, Daily Home acetaminophen 325 mg oral tablet, 650 mg= 2 tablet, By Mouth, Every 4 hours, PRN albuterol 0.042% inhalation solution, 1.25 mg= 3 mL, Neb, Every 4 hours atorvastatin 80 mg oral tablet, 80 mg= 1 tablet, By Mouth, Daily [place] Saline 0.65% nasal gel, 1 sprays, Nares, [...] 4 mg/0.1 mL nasal spray, See Instructions Narcan 4 mg/0.1 mL nasal spray, 4 mg, Nares, Both, Once oxyCODONE 5 mg oral tablet, 5 mg= 1 tablet, By Mouth, Every 6 hours, PRN predniSONE 5 mg oral tablet, 15 mg= [...] Recorded influenza virus vaccine, inactivated 02/03/2023 Recorded [id number] 12y+ bivalent booster vax 08/23/2022 Recorded SARS-CoV-2 [...] : VIS GIVEN ??NO EGG ALLERGY Images left lateral ankle rt shoulder Patient Care team information Care Team Personnel Name: Glo Camarena RN Position: [facility] RN Member Role: Primary Care Nurse Name: Fatimah Bennett RN Position: [facility] RN Member Role: Primary Care Nurse Name: Mariely Hardy RN Position: [facility] RN Member Role: Primary Care Nurse Name: Marleen Uriarte RN Position: [facility] RN Member Role: Primary Care Nurse Name: Sydney Zelaya Position: [facility] SN Support Member Role: Lifetime Consulting Physician Name: Judd Barahona RN Position: [facility] RN Member Role: Primary Care Nurse Name: Tayler Blackwell RN Position: [facility] RN Supv Member Role: Primary Care Nurse Name: Mag Harry RN Position: [facility] RN Member Role: Primary Care Nurse Name: An Blount RN Position: [facility] RN Supv Member Role: Primary Care Nurse Name: Guru Whitley RN Position: [facility] RN Member Role: Primary Care Nurse Name: Rebecca Whitley RN Position: [facility] RN Member Role: Primary Care Nurse Name: Marianna Ng RN Position: [facility] SN RN Member Role: Primary Care Nurse Name: Avani Odell RN Position: [facility] RN Member Role: Primary Care Nurse Name: Lisbet Hickman RN Position: [facility] RN Member Role: Primary Care Nurse Name: Ruben Bello RN Position: [facility] RN Member Role: Primary Care Nurse Name: Araceli Simon RN Position: [facility] RN Member Role: Primary Care Nurse Name: Judi Streeter RN Position: [facility] RN Member Role: Primary Care Nurse Name: Moni Dugan RN Position: [facility] RN Member Role: Primary Care Nurse Name: Jorge Garcia III, MD Position: Reference Physician Member Role: PCP Address: Address: [address] [place] [id number] Name: Misty Nguyen RN Position: [facility] RN Member Role: Primary Care Nurse Name: Hetal Archer LPN Position: [facility] RN Member Role: Primary Care Nurse Name: Joyce Cobb Position: [facility] RN Member Role: Primary Care Nurse Name: Sarwat Aj RN Position: [facility] RN Member Role: Primary Care Nurse Name: César Patel RN Position: [facility] RN Member Role: Primary Care Nurse Name: Cassi Batista RN Position: [facility] RN Member Role: Primary Care Nurse Name: Daija Huitron RN Position: [facility] RN Member Role: Primary Care Nurse Name: Ellis Mayfield RN Position: [facility] RN Supv Member Role: Primary Care Nurse Name: Ayah Robison RN Position: [facility] RN Member Role: Primary Care Nurse Name: Kirstin Enriquez RN Position: [facility] RN Member Role: Primary Care Nurse Name: Radha Moreno RN Position: [facility] RN Member Role: Primary Care Nurse Name: Barb Cueto RN Position: [facility] RN Member Role: Primary Care Nurse Name: Jina Smalls RN Position: [facility] RN Member Role: Primary Care Nurse Name: Laura Clements RN Position: [facility] RN Member Role: Primary Care Nurse Name: Colette Syed RN Position: [facility] RN Member Role: Primary Care Nurse Name: Muriel Daley RN Position: [facility] RN Supv Member Role: Primary Care Nurse Name: Silas Brock RN Position: [facility] RN Member Role: Primary Care Nurse Name: Oscar Alonzoa Position: [facility] RN Supv Member Role: Primary Care Nurse Name: Jade Valencia LPN Position: [facility] RN Member Role: Primary Care Nurse Name: Cooper Vyas RN Position: [facility] RN Member Role: Primary Care Nurse Name: Christi Gallardo Position: [facility] RN Member Role: Primary Care Nurse Name: Judith Rojas LPN Position: [facility] RN Member Role: Primary Care Nurse Name: Sydney Raza RN Position: [facility] RN Member Role: Primary Care Nurse Name: Josselin Manning Position: [facility] RN Member Role: Primary Care Nurse Name: Rachna Renteria RN Position: [facility] RN Member Role: Primary Care Nurse Name: Zohreh Pink RN Position: [facility] RN Member Role: Primary Care Nurse Name: Sophie Berrios RN Position: [facility] RN Member Role: Primary Care Nurse Name: Grisel Mcgowan RN Position: [facility] RN Member Role: Primary Care Nurse Name: Uyen Mitchell RN Position: [facility] RN Member Role: Primary Care Nurse Name: Nasra Smith NP Position: Reference Physician Member Role: Primary Care Nurse Address: Address: [address] [place] [address] Name: Concepción Hess RN Position: [facility] RN Member Role: Primary Care Nurse Name: Arminda Knox RN Position: [facility] RN Member Role: Primary Care Nurse Name: Silas Knox RN Position: [facility] ED RN W/OE and Tasks Member Role: Primary Care Nurse Name: Elham Lee RN Position: [facility] AMB Nurse Member Role: Primary Care Nurse Name: Korin Chowdhury Position: [facility] RN Member Role: Primary Care Nurse Name: Dariana Mariee RN Position: [facility] RN Member Role: Primary Care Nurse Name: Ana María Cat RN Position: [facility] RN Member Role: Primary Care Nurse Name: Janet Pacheco RN Position: [facility] RN Member Role: Primary Care Nurse Name: Flor Holley Position: [facility] RN Member Role: Primary Care Nurse Name: Bret Aguirre RN Position: [facility] RN Member Role: Primary Care Nurse Name: Audra Martinez RN Position: [facility] RN Member Role: Primary Care Nurse Name: Aure Purcell RN Position: [facility] RN Member Role: Primary Care Nurse Name: Radha Montano RN Position: [facility] RN Member Role: Primary Care Nurse Name: Shahbaz Bobo RN Position: [facility] RN Member Role: Primary Care Nurse Name: Jimi Coley RN Position: [facility] RN Member Role: Primary Care Nurse Name: Jennifer Yin LPN Position: [facility] RN Member Role: Primary Care Nurse Name: Alina Arce RN Position: [facility] RN Member Role: Primary Care Nurse Name: Judi Krueger RN Position: [facility] RN Member Role: Primary Care Nurse Name: Magdi Patiño RN Position: [facility] RN Member Role: Primary Care Nurse Name: Rosa Elena Davalos RN Position: [facility] RN Member Role: Primary Care Nurse Name: Kasia Lund RN Position: [facility] RN Member Role: Primary Care Nurse Name: Rachna Serrano RN Position: [facility] RN Member Role: Primary Care Nurse Name: Naveen Villalobos RN Position: [facility] RN Member Role: Primary Care Nurse Name: Radha Masterson RN Position: [facility] RN Member Role: Primary Care Nurse Name: Landy Villarreal RN Position: [facility] RN Member Role: Primary Care Nurse Name: Adria Bell RN Position: [facility] RN Member Role: Primary Care Nurse Name: Amy Larios RN Position: [facility] RN Member Role: Primary Care Nurse Name: Berna Hamm RN Position: [facility] RN Member Role: Primary Care Nurse Name: Indira Lindsey RN Position: [facility] SN RN Member Role: Primary Care Nurse Name: Rosa Elena Pope RN Position: [facility] RN Member Role: Primary Care Nurse Name: Florentino Garcia RN Position: [facility] RN Member Role: Primary Care Nurse Name: Cristel Moreno RN Position: [facility] SN RN Member Role: Primary Care Nurse Name: Rosa Elena De León RN Position: [facility] Hospital Tie Cutter Member Role: Primary Care Nurse Name: Nell Lagos RN Position: [facility] RN Member Role: Primary Care Nurse Name: Rita Rodriguez RN Position: [facility] RN Member Role: Primary Care Nurse Name: Judi Hamilton RN Position: [facility] RN Member Role: Primary Care Nurse Name: Tulio iPna RN Position: [facility] RN Member Role: Primary Care Nurse Name: Narda Barnes RN Position: [facility] RN Member Role: Primary Care Nurse Name: Zoë Cisse RN Position: [facility] RN Member Role: Primary Care Nurse Name: Pat Bowers RN Position: [facility] SN RN Member Role: Primary Care Nurse Name: Gemma Chavira RN Position: [facility] RN Member Role: Primary Care Nurse Name: Ruy Salcido RN Position: [facility] RN Member Role: Primary Care Nurse Name: Hilaria Aparicio RN Position: [facility] RN Member Role: Primary Care Nurse Name: Carly Rosado RN Position: [facility] RN Domv Member Role: Primary Care Nurse Name: Taryn Rosado RN Position: [facility] RN Member Role: Primary Care Nurse Name: Sydney Rosado RN Position: [facility] RN Member Role: Primary Care Nurse Name: Vidhi Wilkins RN Position: [facility] RN Member Role: Primary Care Nurse Name: Uriel Dumont Position: [facility] RN Member Role: Primary Care Nurse Name: Selene Vazquez RN Position: [facility] RN Member Role: Primary Care Nurse Name: César Gerber RN Position: [facility] RN Member Role: Primary Care Nurse Name: Tayler Kovacs RN Position: [facility] RN Member Role: Primary Care Nurse Name: Dariana Becerra RN Position: [facility] RN Member Role: Primary Care Nurse Name: Leyla Verma LPN Position: [facility] RN Member Role: Primary Care Nurse Name: Rody Mays RN Position: [facility] RN Member Role: Primary Care Nurse Name: Marielos Mixon RN Position: [facility] RN Member Role: Primary Care Nurse Name: Radha Flores RN Position: [facility] RN Member Role: Primary Care Nurse Name: Judi Rainey RN Position: [facility] RN Member Role: Primary Care Nurse Name: Hipolito Giles RN Position: [facility] RN Member Role: Primary Care Nurse Name: Rose Kyle RN Position: [facility] Hospital Tie Cutter Member Role: Primary Care Nurse Name: Ion Peralta RN Position: [facility] RN Member Role: Primary Care Nurse Name: Nida Gonsalves Position: [facility] RN Member Role: Primary Care Nurse Name: Aimee Salamanca RN Position: [facility] RN Member Role: Primary Care Nurse Name: Jacobo Caceres Position: [facility] RN Member Role: Primary Care Nurse Name: Savanna PINK Attending Position: [facility] ED Medicine MD Name: Laura Rice DO Position: [facility] Resident Member Role: Resident Address: Address: [address] [place] [id number] Name: Pancho Cota RN Position: [facility] ED RN W/OE and Tasks Member Role: Patient Care Provider Name: Sven Joseph Position: [facility] ED OA Charge Member Role: ED Associate Name: Danita Vicente Position: [facility] ED TA [facility] Member Role: Transverse Abdominal Muscle Nurse Care Team Related Persons Name: NORIS STEVENSON Address: home [address] [address] Name: MELINA BRUMFIELD Address: home Name: GARRY BRUMFIELD Address: home [address] [address]
--- OUTSIDE RECORDS SUMMARY | 2023-08-15 20:32 | XMS_ITS | Continuity of Care Document ---
Author Name Unknown Organization [facility] Address [address] [place] [address]- Care Team Providers Care Manager Crisis Name Role Phone Jose LEE MD, Jorge Tsang Primary Care Physician Encounter [facility] Date(s): 07/01/21 - 10/03/21 [facility] [address] [place] [address]- Attending Physician: Cheng Marsh MD Admitting Physician: [...] 16:44:00 EDT, Aerosol, Route to Pharmacy Electronically, [id number], [facility]/pharmacy #[id number], 182, cm, [...] 11:15:26, Print MARTIN Number, [facility], [address] [place] [address], [id number], Constant Indicator Start Date: 03/31/07 Stop Date: [...]
--- OUTSIDE RECORDS SUMMARY | 2023-08-15 20:32 | XMS_ITS | Continuity of Care Document ---
Author Name Unknown Organization [facility] Address [address] [place] [address]- Care Team Providers Care Color Buffer Name Role Phone Jose LEE MD, Jorge Tsang Primary Care Physician Encounter [facility] Date(s): 09/07/22 - 01/05/23 [facility] [address] [place] [address]- Attending Physician: Ion Rosales MD Admitting Physician: Ion Rosales MD Referring Physician: Jorge Garcia III, MD Allergies, Adverse Reactions, Alerts Substance Reaction Severity Status naproxen lesions on lips Active Toradol Morphine allergy Metaxalone Naproxen Cephalexin allergy hives Persistent Mild Active Keflex 1 rash Active Skelaxin H/O: migraine Active 1tolerates pip/tazo 11/17 Immunizations Given and Recorded Vaccine Date Status Refusal Reason [id number] 12y+ bivalent booster vax 08/23/22 Recorded SARS-CoV-2 [...] 0 Refills, Maintenance, 07/16/22 12:59:00 EDT, Tablet, [facility]/pharmacy #[id number], Partial fill upon patient request if [...] Team Personnel Name: Radha Hsieh RN Position: [facility] RN Member Role: Primary Care Nurse Name: Glo Camarena RN Position: [facility] RN Member Role: Primary Care Nurse Name: Fatimah Bennett RN Position: [facility] RN Member Role: Primary Care Nurse Name: Mariely Hardy RN Position: [facility] RN Member Role: Primary Care Nurse Name: Marleen Uriarte RN Position: [facility] RN Member Role: Primary Care Nurse Name: Sydney Zelaya Position: [facility] PCO OFFICE STAFF Member Role: Lifetime Consulting Physician Name: Judd Barahona RN Position: [facility] RN Member Role: Primary Care Nurse Name: Mag Harry RN Position: [facility] RN Member Role: Primary Care Nurse Name: An Blount RN Position: [facility] RN Supv Member Role: Primary Care Nurse Name: Marianna Ng RN Position: [facility] SN RN Member Role: Primary Care Nurse Name: Avani Odell RN Position: [facility] RN Member Role: Primary Care Nurse Name: Ruben Bello RN Position: [facility] RN Member Role: Primary Care Nurse Name: Araecli Simon RN Position: [facility] RN Member Role: Primary Care Nurse Name: Jorge Garcia III, MD Position: [facility] Ambulatory (view) Member Role: PCP Address: Address: [address] [place] [address] Name: Misty Nguyen RN Position: [facility] RN Member Role: Primary Care Nurse Name: Sarwat Aj RN Position: [facility] RN Member Role: Primary Care Nurse Name: Cassi Batista RN Position: [facility] RN Member Role: Primary Care Nurse Name: Daija Huitron RN Position: [facility] RN Member Role: Primary Care Nurse Name: Ellis Mayfield RN Position: [facility] RN Supv Member Role: Primary Care Nurse Name: Ayah Robison RN Position: [facility] RN Member Role: Primary Care Nurse Name: Kirstin Enriquez RN Position: [facility] RN Member Role: Primary Care Nurse Name: Jina Smalls RN Position: [facility] RN Member Role: Primary Care Nurse Name: Laura Clements RN Position: [facility] RN Member Role: Primary Care Nurse Name: Colette Syed RN Position: [facility] RN Member Role: Primary Care Nurse Name: Muriel Daley RN Position: [facility] RN Supv Member Role: Primary Care Nurse Name: Darlyn Alvarez RN Position: [facility] RN Member Role: Primary Care Nurse Name: Maribell Mejias RN Position: [facility] RN Member Role: Primary Care Nurse Name: Rachna Renteria RN Position: [facility] RN Member Role: Primary Care Nurse Name: Zohreh Pink RN Position: [facility] RN Member Role: Primary Care Nurse Name: Sophie Berrios RN Position: [facility] RN Member Role: Primary Care Nurse Name: Grisel Mcgowan RN Position: [facility] RN Member Role: Primary Care Nurse Name: Nasra Smith RN Position: [facility] RN Member Role: Primary Care Nurse Name: Cindy Grullon RN Position: [facility] RN Supv Member Role: Primary Care Nurse Name: Silas Knox RN Position: [facility] RN Member Role: Primary Care Nurse Name: Elham Lee RN Position: [facility] PCO RN Member Role: Primary Care Nurse Name: Dariana Mariee RN Position: [facility] RN Member Role: Primary Care Nurse Name: Ana María Cat RN Position: [facility] RN Member Role: Primary Care Nurse Name: Flor Holley Position: [facility] RN Member Role: Primary Care Nurse Name: Bret Aguirre RN Position: [facility] RN Member Role: Primary Care Nurse Name: Ghazal Moreno Position: [facility] RN Member Role: Primary Care Nurse Name: Audra Martinez RN Position: [facility] RN Member Role: Primary Care Nurse Name: Shahbaz Bobo RN Position: [facility] RN Member Role: Primary Care Nurse Name: Jennifer Yin LPN Position: [facility] RN Member Role: Primary Care Nurse Name: Alina Arce RN Position: [facility] RN Member Role: Primary Care Nurse Name: Marcelo Schneider RN Position: [facility] ED RN W/OE and Tasks Member Role: Primary Care Nurse Name: Radha Masterson RN Position: [facility] RN Member Role: Primary Care Nurse Name: Amy Larios RN Position: [facility] RN Member Role: Primary Care Nurse Name: Indira Lindsey RN Position: [facility] SN RN Member Role: Primary Care Nurse Name: Rosa Elena Pope RN Position: [facility] RN Member Role: Primary Care Nurse Name: Florentino Garcia RN Position: [facility] RN Member Role: Primary Care Nurse Name: Cristel Moreno RN Position: [facility] SN RN Member Role: Primary Care Nurse Name: Rosa Elena De León RN Position: [facility] Intervention Manager Member Role: Primary Care Nurse Name: Tulio Pina RN Position: [facility] RN Member Role: Primary Care Nurse Name: Maximiliano Claros RN Position: [facility] RN Member Role: Primary Care Nurse Name: aNrda Barnes RN Position: [facility] RN Member Role: Primary Care Nurse Name: Zoë Cisse RN Position: [facility] RN Member Role: Primary Care Nurse Name: Pat Bowers RN Position: [facility] SN RN Member Role: Primary Care Nurse Name: Ruy Salcido RN Position: [facility] RN Member Role: Primary Care Nurse Name: Tayler Cabello RN Position: [facility] RN Member Role: Primary Care Nurse Name: Hilaria Aparicio RN Position: [facility] RN Member Role: Primary Care Nurse Name: Carly Rosado RN Position: [facility] RN Supv Member Role: Primary Care Nurse Name: Sydney Rosado RN Position: [facility] RN Member Role: Primary Care Nurse Name: Fidencio Camarena RN Position: [facility] RN Member Role: Primary Care Nurse Name: Uriel Dumont Position: [facility] RN Member Role: Primary Care Nurse Name: Selene Vazquez RN Position: [facility] RN Member Role: Primary Care Nurse Name: Dariana Becerra RN Position: [facility] RN Member Role: Primary Care Nurse Name: Leyla Verma LPN Position: [facility] RN Member Role: Primary Care Nurse Name: Rody Mays RN Position: [facility] RN Member Role: Primary Care Nurse Name: Marielos Mixon RN Position: [facility] RN Member Role: Primary Care Nurse Name: Radha Flores RN Position: [facility] RN Member Role: Primary Care Nurse Name: Rose Kyle RN Position: [facility] Intervention Manager Member Role: Primary Care Nurse Name: Aimee Salamanca Position: [facility] RN Member Role: Primary Care Nurse Name: Jacobo Caceres Position: [facility] RN Member Role: Primary Care Nurse Care Team Related Persons Name: STEVENSON HAMM Address: [address] [address] Name: MELINA VARMA Address: [place] [address] Name: GARRY VARMA Address: home [address] [address] Name: BRIEN LANCASTER Address: home [address] [address]
--- OUTSIDE RECORDS SUMMARY | 2023-08-15 20:33 | XMS_ITS | Continuity of Care Document ---
Author Name Unknown Organization [facility] ter Address [address] [place] [address]- Care Team Providers Care Laundry Superintendent Name Role Phone Jose LEE MD, Jorge Tsang Primary Care Physician [phone] Encounter [facility] [place] Date(s): 05/29/23 - 05/29/[address] [address]- Encounter Diagnosis COPD exacerbation(Final) - 05/29/23 Discharge Disposition: A-D/C Home Attending Physician: Rowena [...] virus vaccine, inactivated 1 10/14/06 Gi rox [id number] 12y+ bivalent booster vax 08/23/22 Recorded SARS-CoV-2 [...] opioid drug. Start Date: 07/02/22 Status: Ordered [place] Saline 0.65% nasal gel 1 sprays, Nares, Both, 4 times a day, # 22.5 Gm, 0 Refills, Maintenance, 05/12/23 15:41:00 EDT, [facility]/pharmacy #[id number], Partial fill upon [...] 05/30/23 10:29:00 EDT, 05/25/23 10:27:00 EDT, Tablet, [facility], Partial fill upon patient request if the... Start Date: 05/25/23 Stop Date: 05/30/23 Status: Ordered Dilaudid 4 mg oral tablet 4 mg, Tablet, By Mouth, Once, STAT, 05/29/23 10:03:00 EDT, Stop date 05/29/23 10:03:00 EDT Start Date: 05/29/23 Stop Date: 05/29/23 Status: Completed duloxetine 60 mg oral enteric [...] 5 Refills, Maintenance, 04/27/23 13:54:00 EDT, Tablet, [facility], Partial fill upon patient [...] drug. Start Date: 04/20/23 Status: Ordered lisinopril 5 mg oral tablet 2.5 mg, Tablet, By Mouth, Once, STAT, 05/29/23 10:01:00 EDT, Stop date 05/29/23 10:01:00 EDT Start Date: 05/29/23 Stop Date: 05/29/23 Status: Completed loperamide 2 mg oral capsule [...] 10/07/21 Status: Ordered metoprolol 25 mg oral tablet 25 mg, Tablet, By Mouth, Once, STAT, 05/29/23 8:44:00 EDT, Stop date 05/29/23 8:44:00 EDT Start Date: 05/29/23 Stop Date: 05/29/23 Status: Completed Metoprolol Succinate ER 25 mg [...] 0 Refills, Maintenance, 05/25/23 11:17:00 EDT, Tablet, [facility], Partial fill upon patient [...] 0 Refills, Maintenance, 05/06/23 9:44:00 EDT, Tablet, [facility]/pharmacy #[id number], Partial fill upon patient request if the prescription is for a schedule II opioid drug., 182, cm, 05/06/23 7:54:00 EDT, Height,... Start Date: 05/06/23 Status: Ordered sodium chloride 0.65% nasal spray 1 sprays, Nares, Both, 5 times a day, dryness, # 1 each, 0 Refills, Maintenance, 05/12/23 15:40:00 EDT, Nasal [place], [facility]/pharmacy #[id number], Partial fill upon [...] fractures of ribs Confirmed 01/06/11 Active [place] (myocardial infarction) X 3 Confirmed Active PVD (peripheral vascular disease) Confirmed Active Tobacco dependence Confirmed Active Underweight Confirmed Active 1Cardiac stents 1991, 1995 Results Radiology Reports * Exam Date Time Procedure Performing Provider Status 05/29/23 8:37 AM Chest Portable Ariana Giang; Auth ( Verified) Notes: (Chest Portable) Reason For Exam: Shortness of Breath RESULT: Chest Portable Chest Portable Reason: Shortness of Breath; Clinical Question(s): CHF COMPARISON: 05/26/2023. FINDINGS: Single portable chest x-ray labeled AP upright 8:32 AM. LINES AND TUBES: None. LUNGS AND PLEURA: Moderately to markedly hyperexpanded and clear. Unchanged. No pleural effusion. No pneumothorax. HEART, MEDIASTINUM AND MAMADOU: Heart is normal in size. Normal mediastinal and hilar contour. BONES AND SOFT TISSUES: No acute abnormality. IMPRESSION: COPD changes. No acute abnormality. WSN: [id number] Ordering Physician: Marcelo Reid Dictated By: Luis Ritchie MD Dictated Date/Time: 05/29/23 8:54 am Reviewed By: Luis Ritchie MD Signed By: Luis Ritchie MD Signed Date/Time: 05/29/23 8:54 am Transcribed By: BERENICE Transcribed Date/Time: 05/29/23 8:53 am Vital Signs Most recent to oldest [Reference Range]: 1 2 3 Oxygen Saturation [94-100 %] 96 % (05/29/23 5:03 PM) 95 % (05/29/23 1:46 PM) 100 % (05/29/23 7:39 AM) Pulse Rate [55-90 bpm] 80 bpm (05/29/23 5:03 PM) 86 bpm (05/29/23 1:46 PM) 104 bpm *H* (05/29/23 9:52 AM) Blood Pressure [90-138/55-84 mm Hg] 126/91mm Hg (05/29/23 5:03 PM) 104/69mm Hg (05/29/23 1:46 PM) 135/78mm Hg (05/29/23 11:10 AM) Respiratory Rate [16-30 br/min] 20 br/min (05/29/23 5:03 PM) 18 br/min (05/29/23 1:46 PM) 23 br/min (05/29/23 11:11 AM) Temperature [96.8-100.4 DegF] 97.9 DegF (05/29/23 7:39 AM) Liters per Minute 4 L/min (05/29/23 5:03 PM) 4 L/min (05/29/23 1:46 PM) 4 L/min (05/29/23 7:39 AM) Mode of Delivery (Oxygen) Nasal cannula (05/29/23 5:03 PM) Nasal cannula (05/29/23 1:46 PM) Nasal cannula (05/29/23 7:39 AM) Blood pressure sites Arm, left (05/29/23 7:39 AM) Temperature Route Oral (05/29/23 7:39 AM) Social History Social History Type Response Tobacco Use: 4 or less cigar ettes(less than 1/4 pack)/day in last 30 days. Interested in cessation: Yes. Other: Reports smoked at least 30 years, up to 1-2 PPD at one point.. Type: Cigarettes. Sex EKG study * Event Display: ECG 12-Lead Authored Date: Please click on pdf link to open report * Event Display: ECG 12-Lead Authored Date: Ventricular Rate: 85 BPM Atrial Rate: 85 BPM P-R Interval: 138 ms QRS Duration: 94 ms Q-T Interval: 366 ms QTC Calculation(Bazett): 435 ms P [place]: 80 degrees R [place]: -54 degrees T [place]: 81 degrees Normal sinus rhythm Left anterior fascicular block Abnormal ECG When compared with ECG of 26-MAY-2023 09:14, MANUAL COMPARISON REQUIRED, DATA IS UNCONFIRMED Confirmed by ASHLEY DOMÍNGUEZ MD ([id number]) on 05/29/2023 11:07:24 AM Emerson: ASHLEY DOMÍNGUEZ MD Patient Care team information Care Team Personnel Name: Glo Camarena RN Position: S RN Member Role: Primary Care Nurse Name: Fatimah Bennett RN Position: S RN Member Role: Primary Care Nurse Name: Mariely Hardy RN Position: [facility] RN Member Role: Primary Care Nurse Name: Marleen Uriarte RN Position: [facility] RN Member Role: Primary Care Nurse Name: Sydney Zelaya Position: [facility] SN Support Member Role: Lifetime Consulting Physician Name: Judd Barahona RN Position: [facility] RN Member Role: Primary Care Nurse Name: Mag Harry RN Position: [facility] RN Member Role: Primary Care Nurse Name: An Blount RN Position: [facility] RN Supv Member Role: Primary Care Nurse Name: Rebecca Whitlye RN Position: [facility] RN Member Role: Primary Care Nurse Name: Marianna Ng RN Position: [facility] RN Member Role: Primary Care Nurse Name: Avani Odell RN Position: [facility] RN Member Role: Primary Care Nurse Name: Lisbet Hickman RN Position: [facility] RN Member Role: Primary Care Nurse Name: Ruben Bello RN Position: [facility] RN Member Role: Primary Care Nurse Name: Araceli Simon RN Position: [facility] RN Member Role: Primary Care Nurse Name: Judi Streeter RN Position: [facility] RN Member Role: Primary Care Nurse Name: Moni Dugan RN Position: [facility] RN Member Role: Primary Care Nurse Name: Jorge Garcia III, MD Position: Reference Physician Member Role: PCP Address: Address: [address] [place] [address] Name: Misty Nguyen RN Position: [facility] RN Member Role: Primary Care Nurse Name: Joyce Cobb Position: [facility] RN Member Role: Primary Care Nurse Name: Sarwat Aj RN Position: [facility] RN Member Role: Primary Care Nurse Name: César Patel RN Position: [facility] RN Member Role: Primary Care Nurse Name: Cassi Batista RN Position: [facility] RN Member Role: Primary Care Nurse Name: Daija Huitron RN Position: [facility] RN Member Role: Primary Care Nurse Name: Ellis Mayfield RN Position: [facility] RN Supv Member Role: Primary Care Nurse Name: Ayah Robison RN Position: [facility] RN Member Role: Primary Care Nurse Name: Radha Moreno RN Position: [facility] RN Member Role: Primary Care Nurse Name: Jina Smalls RN Position: [facility] RN Member Role: Primary Care Nurse Name: Laura Clements RN Position: [facility] RN Member Role: Primary Care Nurse Name: Colette Syed RN Position: [facility] RN Member Role: Primary Care Nurse Name: Muriel Daley RN Position: [facility] RN Supv Member Role: Primary Care Nurse Name: Judith Rojas LPN Position: [facility] RN Member Role: Primary Care Nurse Name: Sydney Raza RN Position: [facility] RN Member Role: Primary Care Nurse Name: Rachna Renteria RN Position: [facility] RN Member Role: Primary Care Nurse Name: Zohreh Pink RN Position: [facility] RN Member Role: Primary Care Nurse Name: Sophie Berrios RN Position: [facility] RN Member Role: Primary Care Nurse Name: Grisel Mcgowan RN Position: [facility] RN Member Role: Primary Care Nurse Name: Uyen Mitchell RN Position: [facility] RN Member Role: Primary Care Nurse Name: Nasra Smith NP Position: Reference Physician Member Role: Primary Care Nurse Address: Address: [address] [place] [address] Name: Silas Knox RN Position: [facility] RN Member Role: Primary Care Nurse Name: Elham Lee RN Position: [facility] NICK Nurse Member Role: Primary Care Nurse Name: Dariana Mariee RN Position: [facility] RN Member Role: Primary Care Nurse Name: Ana María Cat RN Position: [facility] RN Member Role: Primary Care Nurse Name: Janet Pacheco RN Position: [facility] RN Member Role: Primary Care Nurse Name: Flor Holley Position: [facility] RN Member Role: Primary Care Nurse Name: Bret Aguirre RN Position: [facility] RN Member Role: Primary Care Nurse Name: Audra Martinez RN Position: [facility] RN Member Role: Primary Care Nurse Name: Shahbaz Bobo RN Position: [facility] RN Member Role: Primary Care Nurse Name: Jennifer Yin LPN Position: [facility] RN Member Role: Primary Care Nurse Name: Alina Arce RN Position: [facility] RN Member Role: Primary Care Nurse Name: Judi Krueger RN Position: [facility] RN Member Role: Primary Care Nurse Name: Kasia Lund RN Position: [facility] RN Member Role: Primary Care Nurse Name: Rachna Serrano RN Position: [facility] RN Member Role: Primary Care Nurse Name: Naveen Villalobos RN Position: [facility] RN Member Role: Primary Care Nurse Name: Radha Masterson RN Position: [facility] RN Member Role: Primary Care Nurse Name: Landy Villarreal RN Position: [facility] RN Member Role: Primary Care Nurse Name: Adria Bell RN Position: [facility] RN Member Role: Primary Care Nurse Name: Amy Larios RN Position: [facility] RN Member Role: Primary Care Nurse Name: Indira Lindsey RN Position: [facility] SN RN Member Role: Primary Care Nurse Name: Rosa Elena Pope RN Position: [facility] RN Member Role: Primary Care Nurse Name: Florentino Garcia RN Position: [facility] RN Member Role: Primary Care Nurse Name: Cristel Moreno RN Position: [facility] SN RN Member Role: Primary Care Nurse Name: Rosa Elena De León RN Position: [facility] Slab Lifting Engineer Member Role: Primary Care Nurse Name: Nell Lagos RN Position: [facility] RN Member Role: Primary Care Nurse Name: Judi Hamilton RN Position: [facility] RN Member Role: Primary Care Nurse Name: Tulio Pina RN Position: [facility] RN Member Role: Primary Care Nurse Name: Maximiliano Claros RN Position: [facility] RN Member Role: Primary Care Nurse Name: Narda Barnes RN Position: [facility] ED RN W/OE and Tasks Member Role: Primary Care Nurse Name: Zoë Cisse RN Position: [facility] RN Member Role: Primary Care Nurse Name: Pat Bowers RN Position: [facility] SN RN Member Role: Primary Care Nurse Name: Gemma Chavira RN Position: [facility] RN Member Role: Primary Care Nurse Name: Ruy Salcido RN Position: [facility] RN Member Role: Primary Care Nurse Name: Hilaria Aparicio RN Position: [facility] RN Member Role: Primary Care Nurse Name: Carly Rosado RN Position: [facility] RN Supadelaida Member Role: Primary Care Nurse Name: Taryn Rosado RN Position: [facility] RN Member Role: Primary Care Nurse Name: Sydney Rosado RN Position: [facility] RN Member Role: Primary Care Nurse Name: Magy Bar RN Position: [facility] RN Member Role: Primary Care Nurse Name: Uriel Dumont Position: [facility] RN Member Role: Primary Care Nurse Name: Selene Vazquez RN Position: [facility] RN Member Role: Primary Care Nurse Name: César Gerber RN Position: [facility] RN Member Role: Primary Care Nurse Name: Dariana Becerra RN Position: [facility] RN Member Role: Primary Care Nurse Name: Leyla Verma LPN Position: [facility] RN Member Role: Primary Care Nurse Name: Rody Mays RN Position: [facility] RN Member Role: Primary Care Nurse Name: Marielos Mixon RN Position: [facility] RN Member Role: Primary Care Nurse Name: Radha Flores RN Position: [facility] RN Member Role: Primary Care Nurse Name: Hipolito Giles RN Position: [facility] RN Member Role: Primary Care Nurse Name: Rose Kyle RN Position: [facility] Hospital Slab Lifting Engineer Member Role: Primary Care Nurse Name: Aimee Salamanca RN Position: [facility] RN Member Role: Primary Care Nurse Name: Jacobo Caceres Position: [facility] RN Member Role: Primary Care Nurse Name: Rowena Rodriguez RN Position: [facility] ED RN W/OE and Tasks Member Role: Patient Care Provider Name: Marcelo Reid DO Position: [facility] Resident Member Role: ED Resident Address: Address: [address] [place] [address] [place] [address]- [place] Name: Apryl Garcia Position: [facility] ED TA [facility] Member Role: Para Professional Name: Rowena Olivas MD Position: [facility] ED Medicine MD Member Role: Admitting Physician Address: Address: [address] [place] [address] [place] [address]- [place] Care Team Related Persons Name: STEVNESON HAMM Address: [address] [place] [address] Name: MELINA VARMA Address: [place] [address] Name: GARRY VARMA Address: home [address] [place] [address]
--- OUTSIDE RECORDS SUMMARY | 2023-08-15 20:33 | XMS_ITS | Continuity of Care Document ---
Author Name Unknown Organization [facility] ter Address [address] [place] [address]- Care Team Providers Care Industrial Safety And Health Manager Name Role Phone Jorge Garcia III, MD Primary Care Physician [place] [facility] [place] 07/05/20 - 07/05/[address] [address]- [facility] Discharge Disposition: A-D/C Walkout Attending Physician: Not [...] 10:39:00 EST, Aerosol, Route to Pharmacy Electronically, [id number], [id number], 182, cm, 12/26/19 9:43:00 EST, [place]... [...] Acute 07/12/20 13:57:00 EDT, 06/12/20 13:57:00 EDT, [facility]/pharmacy #[id number], [...] tablet, 2 Refills, Maintenance, 11/08/20 13:57:00 EST, [facility]/pharmacy #[id number], 182, cm, 05/15/20 13:20:00 EDT, Height, 56.4, kg, 06/28... Start Date: 11/08/20 Status: Ordered roflumilast 500 mcg oral tablet 1 tablet = 500 mcg, By Mouth, Daily, # 30 tablet, 11 Refills, Maintenance, 05/15/20 13:53:00 EDT, [facility]/pharmacy #[id number], 182, cm, 05/15/20 13:20:00 EDT, Height, [...] 11:15:26, Print MARTIN Number, [facility], [address] [place] [address], [id number], Constant Indicator Start Date: 03/31/07 Stop Date: [...] recent to oldest [Reference Range]: 1 2 Weight 67 kg (07/05/20 1:57 PM) Oxygen Saturation [94-100 %] 99 % (07/05/20 1:57 PM) 96 % (07/05/20 1:47 PM) Pulse Rate [55-90 bpm] 79 bpm (07/05/20 1:57 PM) 72 bpm (07/05/20 1:47 PM) Blood Pressure [90-138/55-84 mm Hg] 100/ 75mm Hg (07/05/20 1:57 PM) Respiratory Rate [16-30 br/min] 16 br/mi n (07/05/20 1:57 PM) 19 br/min (07/05/20 1:47 PM) Temperature [96.8-100.4 DegF] 98.3 DegF (07/05/20 1:57 PM) Mode of Delivery (Oxygen) Room air (07/05/20 1:47 PM) Blood pressure sites Arm, left (07/05/20 1:57 PM) Temperature Route Oral (07/05/20 1:57 PM) Dry Weight 67 kg (07/05/20 1:57 PM) Weight Obtained Via Patient/family state d (07/05/20 1:57 PM) Dry Weight Obtained Via Patient/family s tated (07/05/20 1:57 PM) Social History Social History Type Response Tobacco Use: Former smoker.. Sex Male
--- OUTSIDE RECORDS SUMMARY | 2023-08-15 20:33 | XMS_ITS | Continuity of Care Document ---
Author Name Unknown Organization [facility] ter Address [address] [place] [address]- Care Team Providers Care [employer] Barista Name Role Phone Jorge Garcia III, MD Primary Care Physician [phone] [place] [facility] [place](s): 06/02/20 - 07/17/[address] [address]- [facility] Attending Physician: Reginaldo Allison II, MD [...] 10:39:00 EST, Aerosol, Route to Pharmacy Electronically, [id number], [facility]/pharmacy #[id number], 182, cm, 12/26/19 9:43:00 EST, [...] By Mouth, Daily, with food or milk, # 90 tablet, 0 Refills, Maintenance, 07/14/2015:00:00 EDT, Tablet, [facility]/pharmacy #[id number], 182, cm, 05/26/20 16:01:00 EDT, Height, 67, kg, 07/05/20 13:57:00 EDT, Dry Weight Start Date: 07/14/20 Stop Date: 08/13/20 Status: [...] 11:15:26, Print MARTIN Number, [facility], [address] [place] [address], [id number], Constant Indicator Start Date: 03/31/07 Stop Date: [...]
--- OUTSIDE RECORDS SUMMARY | 2023-08-15 20:33 | XMS_ITS | Continuity of Care Document ---
Author Name Unknown Organization [facility] ter Address [address] [place] [address]- Care Team Providers Care Agribusiness Internship Name Role Phone Jorge Garcia III, MD Primary Care Physician [phone] [place] [facility] [place](s): 05/04/22 - 05/04/[address] [address]- Encounter Diagnosis COPD (chronic obstructive pulmonary disease)(Final) - 05/04/22 Discharge Disposition: A-D/C Home Attending Physician: Felicity Montes MD Admitting Physician: Felicity Montes MD Referring Physician: Not on Staff, Referring MD Allergies, Adverse Reactions, Alerts Substance Reaction Severity Status naproxen lesions on lips Active morphine 1 itch Active Skelaxin H/O: migraine Active Toradol hives Active Keflex 2 rash [...] 08/29/17 Bubba rded influenza virus vaccine, inactivated 9/20/16 Bubba rded influenza virus vaccine, inactivated 09/02/15 [...] mL, 6 Refills, Maintenance, 07/24/20 16:44:00 EDT, [facility]/pharmacy #[id number], 182, cm, 05/26/20 16:01:00 EDT, Height, 67, kg, 07/05/20 13:57:00 EDT, Dry Weight Start Date: 07/24/20 Status: Ordered albuterol CFC free 90 mcg/inh inhalation aerosol 2, puffs, Inhalation, Every 6 hours, PRN, j44.9, # 1 each, Refills 6, Tot. Refills 6, Maintenance, 07/24/20 16:44:00 EDT, Aerosol, Route to Pharmacy Electronically, [id number], [facility]/pharmacy #[id number], 182, cm, 05/26/20 [...] hours, PRN for Pain , Severe, Routine, 05/04/22 13:35:00 EDT Start Date: 05/04/22 Stop Date: 05/04/22 Status: Discontinued Dilaudid 4 mg oral tablet [...] Date: 04/06/22 Stop Date: 05/05/22 Status: Ordered doxycycline hyclate 100 mg oral capsule 1 capsule = 100 mg, By Mouth, 2 times a day, for 7 days, # 14 capsule, 0 Refills, Acute 05/11/22 13:22:00 EDT, 05/04/22 13:22:00 EDT, Capsule, [facility]/pharmacy #[id number], Partial fill upon patient request ifthe prescription [...] each,6 Refills, Maintenance, 03/21/22 9:48:00 EDT, Powder, [facility]/pharmacy #[id number], 182, cm, 03/12/22 4:49:00EDT, [...] 0 Refills, Maintenance, 04/03/22 16:44:00 EDT, Film, [facility]/pharmacy #[id number], Partial fill upon [...] 0 Refills, Maintenance, 04/14/22 20:46:00 EDT, Tablet, [facility]/pharmacy #[id number], Partial fill upon [...] 04/10/22 11:40:00 EDT, Route to Pharmacy Electronically, [facility]/pharmacy #[id number], Partial fill upon patientrequest [...] 11:15:26, Print MARTIN Number, [facility], [address] [place] [address], [id number], Constant Indicator Start Date: 03/31/07 Stop Date: [...] Exam Date Time Procedure Performing Provider Status 05/04/22 10:06 AM Chest Portable Ha , Magalie; Auth (V erified) Notes: (Chest Portable) Reason For Exam: Persistent Cough RESULT: Chest Portable Chest Portable Hx of Present Illness: C O SOB.. chronic COPD - declining over the past 6 months.. ?screw loose in chest from prior surgery. Given duoneb by EMS.; Reason: Persistent Cough; Clinical Question(s): Pneumonia COMPARISON: 04/25/2022, 04/14/2022 FINDINGS: LINES AND TUBES: None. LUNGS AND PLEURA: Clear lungs. Normal pulmonary vascularity. No pleural effusion. No pneumothorax. HEART, MEDIASTINUM AND MAMADOU: Heart is normal in size. There is stable prominence of the right hilum, likely vascular in nature when correlated with recent chest CT. BONES AND SOFT TISSUES: No acute abnormality. Patient is status post ORIF of right sided rib fractures with displaced screws seen superior to the sixth rib, as described previously. IMPRESSION: No acute abnormality. WSN: [id number] Ordering Physician: Zohreh Somers Dictated By: Zoë Olvera MD Dictated Date/Time: 05/04/22 10:28 a Reviewed By: Zoë Olvera MD Signed By: Zoë Olvera MD Signed Date/Time: 05/04/22 10:28 am Transcribed By: BERENICE Transcribed Date/Time: 05/04/22 10:23 am Vital Signs Most recent to oldest [Reference Range]: 1 2 3 Oxygen Saturation [94-100 %] 99 % (05/04/22 1:37 PM) 100 % (05/04/22 12:09 PM) 100 % (05/04/22 9:18 AM) Pulse Rate [55-90 bpm] 80 bpm (05/04/22 1:37 PM) 74 bpm (05/04/22 12:09 PM) 84 bpm (05/04/22 9:18 AM) Blood Pressure [90-138/55-84 mm Hg] 145/98mm Hg *H* (05/04/22 1:37 PM) 131/81mm Hg (05/04/22 12:09 PM) 137/90mm Hg (05/04/22 9:18 AM) Respiratory Rate [16-30 br/min] 16 br/min (05/04/22 1:37 PM) 16 br/min (05/04/22 1:34 PM) 16 br/min (05/04/22 12:09 PM) Temperature [96.8-100.4 DegF] 98.9 DegF (05/04/22 9:11 AM) Liters per Minute 3 L/min (05/04/22 1:37 PM) 3 L/min (05/04/22 12:09 PM) 3 L/min (05/04/22 9:18 AM) Mode of Delivery (Oxygen) Nasal cannula (05/04/22 1:37 PM) Nasal cannula (05/04/22 12:09 PM) Nasal cannula (05/04/22 9:18 AM) Blood pressure sites Arm, right (05/04/22 1:37 PM) Arm, right (05/04/22 12:09 PM) Arm, right (05/04/22 9:18 AM) Temperature Route Oral (05/04/22 9:11 AM) Social History Social History Type Response Tobacco Use: 4 or less cigar ettes(less than 1/4 pack)/day in last 30 days. Interested in cessation: Yes. Type: Cigarettes. Sex
--- OUTSIDE RECORDS SUMMARY | 2023-08-15 20:33 | XMS_ITS | Continuity of Care Document ---
Author Name Unknown Organization [facility] Address [address] [place] [address]- Care Team Providers Care Cylinder Press Feeder Name Role Phone Jose LEE MD, Jorge Tsang Primary Care Physician [phone] [place] [facility] [place]21 [facility] [address] [place] [address]- Attending Physician: Odilia Gamboa NP Admitting Physician: [...] 16:44:00 EDT, Aerosol, Route to Pharmacy Electronically, [id number], [facility]/pharmacy #[id number], 182, cm, 05/26/20 16:01:00 E... Start [...] pain, # 20 tablet, 0 Refills, Maintenance, 06/15/21 18:22:00 EDT, Tablet, [facility]/pharmacy #[id number], Partial fill upon patient request if the prescription is for a schedule II opioid drug., 182, cm,... Start Date: 06/15/21 Stop Date: 06/29/21 Status: Ordered duloxetine 60 mg oral enteric [...] each,6 Refills, Maintenance, 08/13/20 16:33:00 EDT, Powder, [facility]/pharmacy #[id number], 182, cm, 05/26/20 16:01:00 [...] MARTIN Number, [facility] [address] [place] [address], [id number], Constant Indicator Start Date: 03/31/07 Stop Date: [...]
--- OUTSIDE RECORDS SUMMARY | 2023-08-15 20:33 | XMS_ITS | Continuity of Care Document ---
Author Name Unknown Organization [facility] ter Address [address] [place] [address]- Care Team Providers Care Customer Consultant Name Role Phone Jose LEE MD, Jorge Tsang Primary Care Physician [place] [facility] [place] - 05/26/[address] [address] Discharge Disposition: A-D/C Home Attending Physician: Nay AMAYA, kAi Cha Admitting Physician: Rodolfo Agudelo MD Referring Physician: Not on Staff, Referring [...] 6 Refills, Maintenance, 07/24/20 16:44:00 EDT, [facility]/pharmacy #[id number], 182, cm, 05/26/20 16:01:00 EDT, Height, 67, kg, 07/05/20 13:57:00 EDT, Dry Weight Start Date: 07/24/20 Status: Ordered albuterol CFC free 90 mcg/inh inhalation aerosol 2, puffs, Inhalation, Every 6 hours, PRN, j44.9, # 1 each, Refills 6, Tot. Refills 6, Maintenance, 07/24/20 16:44:00 EDT, Aerosol, Route to Pharmacy Electronically, [id number], [facility]/pharmacy #[id number], 182, cm, 05/26/20 16:01:00 E... Start Date: 07/24/20 Status: Ordered aspirin 81 mg oral tablet 1 tablet = 81 mg, By Mouth, Daily, # 30 tablet, 0 Refills, Maintenance, 05/23/19 1:08:58 EDT, Tablet Start Date: 05/23/19 Status: Ordered atorvastatin 80 mg oral tablet By Mouth, Daily at supper, 0 Refills, Maintenance, 08/04/14 14:30:54, Tablet Start Date: 07/01/14 Status: Ordered bacitracin topical 500 u/gm ointment 1 application, Topically, 3 times a day, for 14 days, apply to affected skin, # 15 Gm, 0 Refills, Acute 06/09/22 12:58:00 EDT, 05/26/22 12:58:00 EDT, Ointment, [facility]/pharmacy #[id number], Partial fill upon patient request if the prescription is for a schedule... Start Date: 05/26/22 Stop Date: 06/09/22 Status: Ordered Dilaudid 2 mg oral tablet 1 tablet = 2 mg, By Mouth, Every 8 hours, PRN for pain, for 3 days, # 9 tablet, 0 Refills, Acute 05/29/22 12:40:00 EDT, 05/26/22 12:40:00 EDT, Tablet, [facility]/pharmacy #[id number], Partial fill upon patient request if the prescription is for a schedule II opioi... Start Date: 05/26/22 Stop Date: 05/29/22 Status: Ordered duloxetine 60 mg oral enteric [...] Maintenance,05/16/22 16:21:00 EDT, Route to Pharmacy Electronically, [facility], Partial fill upon patient request if the prescription is for a sched... Start Date: 05/16/22 Status: Ordered HYDROmorphone Inj 1 mg, Injection, IV Push Slowly, Every 4 hours, PRN for Pain , Severe, Routine, 05/25/22 12:35:00 EDT Start Date: 05/25/22 Stop Date: 06/01/22 Status: Ordered Incruse Ellipta 62.5 mcg/inh inhalation powder 1 each, Inhalation, Every 24 hours, doses should be taken at least 24 hours apart, j44.9, # 1 each,6 Refills, Maintenance, 03/21/22 9:48:00 EDT, Powder, [facility]/pharmacy #[id number], 182, cm, 03/12/22 4:49:00EDT, [...] Refills, Maintenance, 04/03/22 16:44:00 EDT, Film, [facility]/pharmacy #[id number], Partial fill upon patient [...] oral tablet 2.5 mg, Tablet, By Mouth, 05/26/22 9:00:00 EDT Start Date: 05/26/22 Stop Date: 05/26/22 Status: Completed loperamide 2 mg oral capsule [...] AM, # 30 tablet, 0 Refills, Maintenance, 05/26/22 12:42:00 EDT, EC Tablet, 183, cm, 05/26/22 12:37:00 EDT, Height, 60, kg, 05/25/22 16:27:00 EDT, Dry Weight Start Date: 05/26/22 Status: Ordered predniSONE 5 mg oral delayed [...] 11:40:00 EDT, Route to Pharmacy Electronically, [facility]/pharmacy #[id number], Partial fill upon patientrequest if the prescription is for a schedule II op... Start Date: 04/10/22 Status: Ordered Toprol XL 25 mg oral tablet, extended release 25, mg, 1, tablet, By Mouth, Daily, 30, tablet, 6, 6, 03/31/07 11:15:26, Print MARTIN Number, [facility] [place] [address] [place] [address], [phone], Constant Indicator Start Date: 03/31/07 Stop Date: 10/27/07 Status: Ordered Toprol XL 25 mg oral tablet, extended release 25 mg, XL Tablet, By Mouth, 05/26/22 9:00:00 EDT Start Date: 05/26/22 Stop Date: 05/26/22 Status: Completed Vitamin B1 100 mg oral [...] oldest [Reference Range]: 1 2 3 4 Height 183 cm (05/26/22 1:24 PM) 183 cm (05/26/22 12:37 PM) 183 cm (05/26/22 4:38 AM) Weight 53.4 kg (05/25/22 4:27 PM) 53.4 kg (05/25/22 4:21 PM) Oxygen Saturation [94-100 %] 92 % *L* (05/26/22 1:24 PM) 100 % (05/26/22 12:37 PM) 100 % (05/26/22 4:38 AM) Pulse Rate [55-90 bpm] 88 bpm (05/26/22 1:24 PM) 79 bpm (05/26/22 12:37 PM) 86 bpm (05/26/22 9:13 AM) Body Mass Index [18.5-24.99] 15.95 *L* (05/25/22 4:27 PM) Blood Pressure [90-138/55-84 mm Hg] 127/84mm Hg (05/26/22 1:24 PM) 129/85mm Hg (05/26/22 12:37 PM) 129/86mm Hg (05/26/22 9:13 AM) 129/86mm Hg (05/26/22 9:13 AM) Respiratory Rate [16-30 br/min] 20 br/min (05/26/22 1:24 PM) 18 br/min (05/26/22 12:57 PM) 18 br/min (05/26/22 12:37 PM) Temperature [96.8-100.4 DegF] 97.6 DegF (05/26/22 1:24 PM) 98.2 DegF (05/26/22 12:37 PM) 97.9 DegF (05/26/22 4:38 AM) Liters per Minute 2 L/min (05/26/22 12:37 PM) 2 L/min (05/26/22 4:38 AM) 2 L/min (05/25/22 10:59 PM) Mode of Delivery (Oxygen) Room air (05/26/22 1:24 PM) Nasal cannula (05/26/22 12:37 PM) Nasal cannula (05/26/22 4:38 AM) Blood pressure sites Arm, right (05/26/22 1:24 PM) Arm, right (05/26/22 12:37 PM) Arm, left (05/26/22 4:38 AM) Temperature Route Oral (05/26/22 1:24 PM) Oral (05/26/22 12:37 PM) Oral (05/26/22 4:38 AM) Dry Weight 60 kg (05/25/22 4:27 PM) Weight Obtained Via Bed scale (05/25/22 4:27 PM) Bed scale (05/25/22 4:21 PM) Social History Social History Type Response Tobacco Use: 4 or less cigar ettes(less than 1/4 pack)/day in last 30 days. Interested in cessation: Yes. Type: Cigarettes. Sex
--- OUTSIDE RECORDS SUMMARY | 2023-08-15 20:33 | XMS_ITS | Continuity of Care Document ---
Author Name Unknown Organization [facility] Address [address] [address]- Care Team Providers Care Knitter Operator Name Role Phone Jose LEE MD, Jorge Tsang Primary Care Physician [phone] [place] [facility] [place] Date(s): 05/15/21 - 06/14/21 [facility] [address] [address]- Attending Physician: Anabel Mendosa Admitting Physician: Admtr, Anabel Referring Physician: Admtr, [...] 16:44:00 EDT, Aerosol, Route to Pharmacy Electronically, [id number], [facility]/pharmacy #[id number], 182, cm, 05/26/20 16:01:00 E... Start [...] 0 Refills, Maintenance, 06/10/21 12:35:00 EDT, Tablet, [facility]/pharmacy #[id number], Partial fill upon patient request if [...] Refills, Maintenance, 08/13/20 16:33:00 EDT, Powder, [facility]/pharmacy #[id number], 182, cm, 05/26/20 16:01:00 EDT, Height, [...] MARTIN Number, [facility], [address] [place] [address], [id number], Constant Indicator Start Date: 03/31/07 Stop Date: [...]
--- OUTSIDE RECORDS SUMMARY | 2023-08-15 20:33 | XMS_ITS | Continuity of Care Document ---
Author Name Unknown Organization [facility] ter Address [address] [place] [address]- Care Team Providers Care Director Of Design Name Role Phone Jorge Garcia III, MD Primary Care Physician [phone] [place] [facility] [place] - 10/10/[address] [address]- Discharge Disposition: A-D/C Home Attending Physician: Cheng Marsh MD Admitting Physician: [...] mL, 6 Refills, Maintenance, 07/24/20 16:44:00 EDT, [facility]/pharmacy #[id number], 182, cm, 05/26/20 16:01:00 EDT, Height, 67, kg, 07/05/20 13:57:00 EDT, Dry Weight Start Date: 07/24/20 Status: Ordered albuterol CFC free 90 mcg/inh inhalation aerosol 2, puffs, Inhalation, Every 6 hours, PRN, j44.9, # 1 each, Refills 6, Tot. Refills 6, Maintenance, 07/24/20 16:44:00 EDT, Aerosol, Route to Pharmacy Electronically, [id number], [facility]/pharmacy #[id number], 182, cm, 05/26/20 16:01:00 [...] Every 6 hours, PRN for Pain , Mild, Routine, 10/09/21 19:53:00 EST Start Date: 10/09/21 Stop Date: 10/10/21 Status: Discontinued Dilaudid 2 mg oral tablet 1 tablet = 2 mg, By Mouth, Every 6 hours, PRN Pain , Mild, for 7 days, # 28 tablet, 0 Refills, Acute 10/17/21 7:30:00 EST, 10/10/21 7:30:00 EST, Tablet, [facility]/pharmacy #[id number], Partial fill upon patient request if the prescription is for a schedule II opi... Start Date: 10/10/21 Stop Date: 10/17/21 Status: Ordered Docusate/Senna Tablet 1 tablet, By [...] oral capsule 300 mg, Capsule, By Mouth, 10/10/21 9:00:00 EST Start Date: 10/10/21 Stop Date: 10/10/21 Status: Completed Incruse Ellipta 62.5 mcg/inh inhalation powder 1 each, Inhalation, Every 24 hours, doses should be taken at least 24 hours apart, j44.9, # 1 each,6 Refills, Maintenance, 08/13/20 16:33:00 EDT, Powder, [facility]/pharmacy #[id number], 182, cm, 05/26/20 16:01:00 [...] 6, 03/31/07 11:15:26, Print MARTIN Number, ADS [facility], [address] [place] [address], [id number], Constant Indicator Start Date: 03/31/07 Stop Date: 10/27/07 Status: Ordered Toprol XL 25 mg oral tablet, extended release 25 mg, XL Tablet, By Mouth, 10/10/21 9:00:00 EST Start Date: 10/10/21 Stop Date: 10/10/21 Status: Completed Tylenol 325 mg oral tablet [...] Range]: 1 2 3 Height 182.88 cm (10/10/21 7:32 AM) 182.88 cm (10/10/21 4:04 AM) 182.88 cm (10/09/21 11:43 PM) Weight 55.3 kg (10/09/21 1:51 PM) Oxygen Saturation [94-100 %] 95 % (10/10/21 7:32 AM) 95 % (10/10/21 4:04 AM) 95 % (10/09/21 11:43 PM) Pulse Rate [55-90 bpm] 85 bpm (10/10/21 9:29 AM) 85 bpm (10/10/21 7:32 AM) 97 bpm *H* (10/10/21 4:04 AM) Body Mass Index [18.5-24.99] 16.53 *L* (10/09/21 1:51 PM) Blood Pressure [90-138/55-84 mm Hg] 114/71mm Hg (10/10/21 9:29 AM) 114/71mm Hg (10/10/21 7:32 AM) 116/67mm Hg (10/10/21 4:04 AM) Respiratory Rate [16-30 br/min] 18 br/min (10/10/21 9:29 AM) 18 br/min (10/10/21 7:32 AM) 18 br/min (10/10/21 4:58 AM) Temperature [96.8-100.4 DegF] 98.6 DegF (10/10/21 7:32 AM) 97.8 DegF (10/10/21 4:04 AM) 98.5 DegF (10/09/21 11:43 PM) Liters per Minute 3 L/min (10/09/21 11:43 PM) 3 L/min (10/09/21 6:20 PM) 3 L/min (10/09/21 5:30 PM) Mode of Delivery (Oxygen) Room air (10/10/21 7:32 AM) Room air (10/10/21 4:04 AM) Nasal cannula (10/09/21 11:43 PM) Blood pressure sites Arm, right (10/10/21 7:32 AM) Arm, right (10/10/21 4:04 AM) Arm, right (10/09/21 11:43 PM) Temperature Route Oral (10/10/21 7:32 AM) Oral (10/10/21 4:04 AM) Oral (10/09/21 11:43 PM) Weight Obtained Via Standing scale (10/09/21 1:51 PM) Patient/family stated (10/07/21 6:11 PM) Social History Social History Type Response Tobacco Use: 2 cigarettes a day . Sex
--- OUTSIDE RECORDS SUMMARY | 2023-08-15 20:33 | XMS_ITS | Continuity of Care Document ---
Author Name Unknown Organization [facility] Address [address] [address]- Care Team Providers Care Internship Coordinator Name Role Phone Jose LEE MD, Jorge Tsang Primary Care Physician [phone] Encounter [facility] [place] Date(s): 01/30/20 - 03/09/20 [facility] [address] [facility] [address] [place] [address]- [facility] Attending Physician: Oscar Rios MD Admitting [...] 10:39:00 EST, Aerosol, Route to Pharmacy Electronically, [id number], [facility]/pharmacy #[id number], 182, cm, 12/26/19 9:43:00 EST, Heig... Start Date: 12/26/19 Status: Ordered apixaban = 5 mg, By Mouth, 2 times a day, To start after 7 days of 10 mg dose, 0 Refills, Maintenance, 05/27/19 14:17:22 EDT, Tablet Start Date: 05/27/19 Status: Ordered Vaimicom, See Instructions, # 1 box, Refills 5, [...] Refills, Soft Stop, 12/26/19 9:58:00 EST, Tablet, [facility]/pharmacy #[id number], 182, cm, 12/26/19 9:43:00 EST, [...] 42 tablet, 0 Refills, Maintenance,03/05/20 9:43:00 EDT, [facility]/pharmacy #[id number], 182, cm, 03/05/20 9:03:00 EDT, [...] 11:15:26, Print MARTIN Number, ADS [facility], [address] [place] [address], [id number], Constant Indicator Start Date: 03/31/07 Stop Date: [...]
--- OUTSIDE RECORDS SUMMARY | 2023-08-15 20:33 | XMS_ITS | Continuity of Care Document ---
Author Name Unknown Organization [facility] ter Address [address] [place] [address]- Care Team Providers Care Program Manager Name Role Phone Jose LEE MD, Jorge Tsang Primary Care Physician Encounter [facility] [place] Date(s): 03/30/22 - 03/30/[address] [address]- Encounter Diagnosis Compression fracture of body of thoracic vertebra(Final) - 03/30/22 Discharge Disposition: A-D/C Home Attending Physician: Hansel [...] 0 Refills, Maintenance, 03/12/22 12:11:00 EDT, Tablet, [facility]/pharmacy #[id number], Partial fill upon patient request if theprescription is for a schedule II opioid drug., 182... Start Date: 03/12/22 Stop Date: 03/26/22 Status: Ordered albuterol 0.083% inhalation solution 3 mL = 2.5 mg, Neb, Every 4 hours, PRN Wheezing/Shortness of Breath, j44.9, # 540 mL, 6 Refills, Maintenance, 07/24/20 16:44:00 EDT, [facility]/pharmacy #[id number], 182, cm, 05/26/20 16:01:00 EDT, Height, 67, kg, 07/05/20 13:57:00 EDT, Dry Weight Start Date: 07/24/20 Status: Ordered albuterol CFC free 90 mcg/inh inhalation aerosol 2, puffs, Inhalation, Every 6 hours, PRN, j44.9, # 1 each, Refills 6, Tot. Refills 6, Maintenance, 07/24/20 16:44:00 EDT, Aerosol, Route to Pharmacy Electronically, [id number], [facility]/pharmacy #[id number], 182, cm, 05/26/20 16:01:00 [...] 03/31/23 20:07:00 EDT, 03/30/22 20:07:00 EDT, Tablet, [facility]/pharmacy #[id number], Partial fill upon patient request if the prescription is for a schedule II opioid... Start Date: 03/30/22 Stop Date: 03/31/23 Status: Ordered Dilaudid Inj 2 mg, Injection, IV Push Slowly, Once, STAT, 03/30/22 19:27:00 EDT, Stop date 03/30/22 19:27:00 EDT Start Date: 03/30/22 Stop Date: 03/30/22 Status: Completed duloxetine 60 mg oral enteric [...] each,6 Refills, Maintenance, 03/21/22 9:48:00 EDT, Powder, [facility]/pharmacy #[id number], 182, cm, 03/12/22 4:49:00EDT, [...] 0 Refills, Soft Stop, 03/30/22 20:08:00 EDT, Tablet,[facility]/pharmacy #[id number], Partial fill upon patient request [...] MARTIN Number, ADS [facility], [address] [place] [address], [phone], Constant Indicator Start Date: 03/31/07 Stop Date: [...] Exam Date Time Procedure Performing Provider Status 03/30/22 4:56 PM Chest 2 Views Frontal and Lat Bein , Da na; Auth (Verified) Notes: (Chest 2 Views Frontal and Lat) Reason For Exam: Pleuritic Pain RESULT: Chest 2 Views Frontal and Lat Chest 2 Views Frontal and Lat Hx of Present Illness: Pt reporting severe pain between shoulder pain radiating down back x2 days, so severe could not get out of bed today. Reports ongoing pain and burning from l hip radiating downleft leg- hx of PVD, surgery on left leg 6-8 wks ago; Reason: Pleuritic Pain; Clinical Question(s):Pneumothorax COMPARISON: None. FINDINGS: LINES AND TUBES: None. LUNGS AND PLEURA: Markedly hyperexpanded and clear. No pleural effusion. No pneumothorax. HEART, MEDIASTINUM AND MAMADOU: Heart is normal in size. Normal upper mediastinal and hilar contour. BONES AND SOFT TISSUES: No acute abnormality. Multiple thoracic compression deformities appear unchanged. Post ORIF changes of right-sided rib fractures. IMPRESSION: No acute abnormality. WSN: [id number] Ordering Physician: Padmini Serrano Dictated By: Luis Ritchie MD Dictated Date/Time: 03/30/22 5:03 pm Reviewed By: Luis Ritchie MD Signed By: Luis Ritchie MD Signed Date/Time: 03/30/22 5:03 pm Transcribed By: BERENICE Transcribed Date/Time: 03/30/22 5:01 pm Vital Signs Most recent to oldest [Reference Range]: 1 2 3 Oxygen Saturation [94-100 %] 99 % (03/30/22 9:44 PM) 98 % (03/30/22 6:38 PM) 99 % (03/30/22 3:12 PM) Pulse Rate [55-90 bpm] 82 bpm (03/30/22 9:44 PM) 77 bpm (03/30/22 3:12 PM) Blood Pressure [90-138/55-84 mm Hg] 141/82mm Hg *H* (03/30/22 9:44 PM) 123/94mm Hg (03/30/22 3:12 PM) Respiratory Rate [16-30 br/min] 16 br/min (03/30/22 9:45 PM) 16 br/min (03/30/22 9:34 PM) 17 br/min (03/30/22 6:38 PM) Temperature [96.8-100.4 DegF] 98.2 DegF (03/30/22 9:44 PM) 98.3 DegF (03/30/22 6:38 PM) 98.2 DegF (03/30/22 3:12 PM) Liters per Minute 3 L/min (03/30/22 9:44 PM) 3 L/min (03/30/22 6:38 PM) 3 L/min (03/30/22 3:12 PM) Mode of Delivery (Oxygen) Nasal cannula (03/30/22 9:44 PM) Nasal cannula (03/30/22 6:38 PM) Nasal cannula (03/30/22 3:12 PM) Blood pressure sites Arm, left (03/30/22 9:44 PM) Arm, left (03/30/22 3:12 PM) Temperature Route Oral (03/30/22 9:44 PM) Oral (03/30/22 6:38 PM) Oral (03/30/22 3:12 PM) Social History Social History Type Response Tobacco Use: Former smoker.. Sex
--- OUTSIDE RECORDS SUMMARY | 2023-08-15 20:33 | XMS_ITS | Continuity of Care Document ---
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 -You were admitted for shoulder infection??and you underwent a??operative washout procedure by the orthopedic surgeons -You will remain on antibiotics which will be completed with 6 weeks of long- term antibiotics??thiswill be completed at the rehab facility -Please make sure to follow-up with infectious disease doctors and your primary care physician ?? Post Discharge Care Diet: Regular Diet Activity: As tolerated Wound Care: Wound Site: Right shoulder Dressing: Dry Sterile Dressing ??Daily DSD changes ??Daily ??Yes Code Status: ?? Full Resuscitation Condition: Stable Prognosis: Fair Discharge ?01/21/23 10:54:00 EST Discharge Prescriptions ?Written, ??01/21/23 10:54:00 EST Home Health Face to Face ^HomeHealthFTF Results Discharge Labs BLOOD BANK Blood Type A Negative ()?? 01/14/2023 07:54 Antibody Screen Negative ()?? 01/14/2023 07:54 ?? BLOOD COUNT & DIFF WBC 6.8 k/mm3 ()?? 01/20/2023 02:40 RBC 2.82 m/mm3 (Low)?? 01/20/2023 02:40 Hgb 7.6 Gm/dL (Low)?? 01/20/2023 02:40 Hct 25.0 % (Low)?? 01/20/2023 02:40 MCV 88.7 femtoliters ()?? 01/20/2023 02:40 MCH 27.0 pg ()?? 01/20/2023 02:40 MCHC 30.4 g/dL (Low)?? 01/20/2023 02:40 Platelet Count 440 k/mm3 ()?? 01/20/2023 02:40 RDW-SD 57.9 femtoliters (High)?? 01/20/2023 02:40 MPV 9.2 femtoliters (Low)?? 01/20/2023 02:40 Nucleated RBC (Automated) 0.0 #/100 WBC'S ()?? 01/20/2023 02:40 Abs. NRBC 0.0 k/mm3 ()?? 01/20/2023 02:40 Abs. Neut 15.1 k/mm3 (High)?? 01/08/2023 23:38 Abs. Lymph 1.3 k/mm3 ()?? 01/08/2023 23:38 Abs. Desha 1.4 k/mm3 (High)?? 01/08/2023 23:38 Abs. Eo 0.3 k/mm3 ()?? 01/08/2023 23:38 Abs. Baso 0.0 k/mm3 ()?? 01/08/2023 23:38 Neut % 82.3 % (High)?? 01/08/2023 23:38 Lymph % 7.1 % (Low)?? 01/08/2023 23:38 Desha % 7.8 % ()?? 01/08/2023 23:38 Eos % 1.9 % ()?? 01/08/2023 23:38 Baso % 0.2 % ()?? 01/08/2023 23:38 Imm Gran 0.7 % ()?? 01/08/2023 23:38 Abs. Imm Gran 0.1 k/mm3 ()?? 01/08/2023 23:38 ?? BLOOD GAS pH 7.27 (Low)?? 01/11/2023 23:39 pCO2 77 mm Hg (Critical)?? 01/11/2023 23:39 pO2 64 mm Hg (Low)?? 01/11/2023 23:39 Bicarbonate, Estimated 34 mmol/L (High)?? 01/11/2023 23:39 Specimen Type - Blood Gas ARTERIAL ()?? 01/11/2023 23:39 Percent O2 (FIO2) 40 ()?? 01/11/2023 23:39 ?? CARDIAC Nt-Probnp 198 pg/mL (High)?? 01/08/2023 23:38 High Sensitivity Troponin (HSTnT) 55 ng/L (Critical)?? 01/09/2023 01:53 ?? CHEM GENERAL Sodium 141 mmol/L ()?? 01/20/2023 02:40 Potassium 4.2 mmol/L ()?? 01/20/2023 02:40 Chloride 99 mmol/L ()?? 01/20/2023 02:40 Bicarbonate Level 36 mmol/L (High)?? 01/20/2023 02:40 Anion Gap 6 ()?? 01/20/2023 02:40 Glucose Level 76 mg/dL ()?? 01/12/2023 00:06 Glucose, POC 104 mg/dL (High)?? 01/12/2023 00:04 BUN 14 mg/dL ()?? 01/20/2023 02:40 Creatinine-Blood 0.8 mg/dL ()?? 01/20/2023 02:40 Estimated GFR Creatinine 100 ML/MIN/1.73 M2 ()?? 01/20/2023 02:40 Calcium 8.9 mg/dL ()?? 01/12/2023 00:06 Phosphorus 4.5 mg/dL ()?? 01/14/2023 00:13 Magnesium 1.7 mg/dL ()?? 01/14/2023 00:13 Protein, Total 6.3 Gm/dL ()?? 01/08/2023 23:38 Albumin 3.7 Gm/dL ()?? 01/08/2023 23:38 AG Ratio 1.4 ()?? 01/08/2023 23:38 Alkaline Phosphatase 150 units/L (High)?? 01/08/2023 23:38 Lipase 55 units/L ()?? 01/08/2023 23:38 AST (SGOT) 10 units/L ()?? 01/08/2023 23:38 ALT (SGPT) 8 units/L ()?? 01/08/2023 23:38 Bilirubin, Total 0.3 mg/dL ()?? 01/08/2023 23:38 Lactate 0.9 mmol/L ()?? 01/11/2023 08:14 C-Reactive Protein 9.8 mg/dL (High)?? 01/11/2023 08:14 ? COAG INR 1.8 (High)?? 01/21/2023 01:49 Protime (PT) 18.7 seconds (High)?? 01/21/2023 01:49 APTT 28.1 seconds ()?? 01/08/2023 23:38 ? HEME OTHER Sed Rate 70 mm/hr (High)?? 01/11/2023 08:14 Hold Lavender Top SPECIMEN DISCARDED AFTER 24 HOURS. ()?? 01/10/2023 19:11 ?? MISC. CHEMISTRY Hold Gel Top SPECIMEN DISCARDED AFTER 1 WEEK ()?? 01/14/2023 13:20 ? SEROLOGY INF DISEASE Hepatitis B Surface Antigen NEGATIVE (N)?? 01/09/2023 02:00 Hepatitis C Ab NEGATIVE (N)?? 01/09/2023 02:00 HIV 4th Generation Ab-Ag Result NEGATIVE (N)?? 01/09/2023 02:00 Mycobacterium Tuberculosis Complex PCR NO MYCOBACTERIUM TUBERCULOSIS COMPLEX DNA DETECTED WITH hsp65 AMPLIFIED ()?? 01/11/2023 18:58 Fungal Broad Range PCR NO FUNGAL DNA DETECTED WITH 28S rDNA AND ITS PRIMER SETS. ()?? 01/11/2023 18:58 PCR Specimen Description TISSUE ()?? 01/11/2023 18:58 ?? TOXICOLOGY/TDM Vancomycin Level, Peak 26.6 mg/L ()?? 01/16/2023 17:10 Vancomycin Level, Trough 12.3 mg/L ()?? 01/18/2023 01:45 ?? VIROLOGY COVID-19 PCR Specimen Source NASAL ()?? 01/20/2023 05:19 COVID-19 PCR Result NEGATIVE ()?? 01/20/2023 05:19 ? Microbiology ?? Blood Culture?? Completed?? Source: Blood Body Site: ?? Collected Dt/Tm: 01/08/2023 23:32 Last Updated Dt/Tm: 01/08/2023 23:33 ?SPECIMEN DESCRIPTION : BLOOD RASPECIAL REQUESTS : NONECULTURE : NO GROWTH 6 DAYSREPORT STATUS :FINAL 01/15/2023 Blood Culture #2?? Completed?? Source: Blood Body Site: ?? Collected Dt/Tm: 01/08/2023 23:32 Last Updated Dt/Tm: 01/08/2023 23:33 ?SPECIMEN DESCRIPTION : BLOOD LASPECIAL REQUESTS : NONECULTURE : NO GROWTH 6 DAYSREPORT STATUS :FINAL 01/15/2023 COVID-19 (2019 Novel Coronavirus) PCR?? Completed?? Source: Nasal Body Site: Nose Collected Dt/Tm: 01/20/2023 05:19 Last Updated Dt/Tm: 01/20/2023 13:59 ? Imaging(s) ?Chest 2 Views Frontal and Lat ?? 01/09/2023 01:58??by Giacomo España MD ? IMPRESSION: 1. No active disease in chest. ?? 2. No acute bony abnormality ?Shoulder Min 2 Views Right ?? 01/09/2023 01:58??by Giacomo España MD ?IMPRESSION: 1. No recent bony injury. ?? 2. No plain film evidence of osteomyelitis. 3. Old healed fracture distal right clavicle. 4. Humeral head is not dislocated. However it is subluxed superiorly compared to the glenoid and this has been present previousl ? 33_ minutes spent on discharge * David AMAYA, Brice H: PERFORM Event Display: Discharge/Transfer Note Hospital Authored Date: Dilaudid prescription which was included in patient's physical chart well before discharge had not been sent with patient to facility. ??RN will fax over a copy now Furthermore??RN at rehab was apparently asking for vancomycin prescription,??this does not happen via the hospitalist physician and is arranged prior to discharge via case management.?? Hospitalist ph ysicians??simply include??dose and duration??as Free text on the discharge summary, it does not even show up on??discharge medication list. -Case management Brinda Marie updated. * Susu Cotton RN: MODIFY, PERFORM, MODIFY Event Display: Patient Education/Instruction Authored Date: Inpatient Adult Discharge Instructions [place] [id number] Name: CARLOS BRUMFIELD : 1955 Visit: 01/09/2023 18:11:00 Current Date: 01/21/2023 12:19 Account: [id number] Inpatient Adult Discharge Instructions We would like [...] and their families. Surveys are administered by [employer] ?? If further treatment with your primary care physician or another doctor is recommended, it is important for you to keep the appointment. Call your primary care physician or return to the Emergency Department immediately if your condition worsens, fails to improve, or new symptoms develop. If you need to find a doctor, you can call [facility] for a referral at [phone] or toll free at [phone] ([phone]) or log in to [email or web address].. ?? You can view and manage your care through the patient portal or by using a health care lore of your choosing. [employer] is a website that allows you to securely view your medical information including your hospital discharge summary, office visit summaries, medications and follow-up visits. You can also request appointments, renew medications, and request access to your medical information using a health care lore of your choosing, or just ask a question. You can enroll at [email or web address] or register during your next office visit. You have been discharged from [facility], Patient Care Unit: SW7. If you have any questions regarding these instructions after you leave, please call us and we will be happy to assist you. [facility] Your Care Team Attending Physician David AMAYA, Brice Muñoz Consulting Providers Linda AMAYA, Alexis; Stacey AMAYA, Dinah; Shan AMAYA, Soumya; Shanell ESCALONA, Sarwat Gabriel; Malini AMAYA, Rodolfo Del Rosario MD, Jair Discharging Providers David AMAYA, Brice Muñoz Reason for Admission Brought in by EMS for evaluation of shortness of breath and right shoulder pain with increasing drainage. Your Diagnosis COPD exacerbation Joint infection Septic arthritis of shoulder, right Complete rotator cuff tear or rupture of right shoulder, not specified as traumatic Chronic hypoxemic respiratory failure Emphysema/COPD Hypotension Hypertension Hyperlipidemia CAD (coronary artery disease) PVD (peripheral vascular disease) S/P right coronary artery (RCA) stent placement Depression with anxiety GERD (gastroesophageal reflux disease) Chronic pain syndrome Spinal stenosis DJD (degenerative joint disease) Tests Performed Below is a partial list of the tests performed during your hospitalization. You may have had other tests and procedures not included in this list. Please discuss all test results with your provider. ABG AFB BROAD RANGE PCR?-- Results Pending -- Basic Metabolic Panel BUN CBC CBC w/ Differential Comprehensive Metabolic Panel COVID-19 (2019 Novel Coronavirus) PCR Creatinine CRP ESR FUNGAL BROAD RANGE PCR GLUCOSE POC H + H High??Sensitivity??Troponin T HOLD GEL TUBE HOLD LAVENDER TUBE INR Lactate Level Lactic Acid Level Lipase Lytes Magnesium Level Mg Level Phosphorus Level ProBNP PTT SOURCE EXPOSURE PROFILE Troponin T, High Sensitivity Type and Screen Vancomycin Peak Vancomycin Trough CT Chest W/ Contrast MRI Ext Upper W/O Contrast Right Portable Chest XR Chest 2 Views Frontal and Lat XR Shoulder Min 2 Views Right ? You will be contacted within 72 hours with your results. Primary Care Provider Jose LEE MD, Jorge Tsang Advance Directive Health Care Proxy on File Yes - Health Care Proxy Yes - MOLST Discharge Vitals Temperature: 97.4 DegF Height: 183 cm Pulse Rate: 67 bpm Weight: 55 kg Respiratory Rate: 17 br/min Body Mass Index:??16.42 kg/m2??Low Systolic Blood Pressure: 130 mm Hg Body surface area: 1.67 Diastolic Blood Pressure: 62 mm Hg ?? Oxygen Saturation: 98 % ?? Studies Pending All tests and labs ordered during this hospital stay have been completed unless listed below. Please discuss all pending results with your provider listed above in these instructions. ?? AFB Broad Range PCR Add On Lab Order Anaerobic Culture Bacterial 16S Broad Range PCR COVID-19 (2019 Novel Coronavirus) PCR Hold Lavender Tube (BB) INR What to do next Instructions From Your Doctor ?? -You were admitted for shoulder infection??and you underwent a??operative washout procedure by the orthopedic surgeons -You will remain on antibiotics which will be completed with 6 weeks of long- term antibiotics??thiswill be completed at the rehab facility -Please make sure to follow-up with infectious disease doctors and your primary care physician ?? Discharge Orders Diet:??Regular Diet Activity:??As tolerated Wound Care:??Wound Site: Right shoulder Dressing: Dry Sterile Dressing Daily DSD changes Daily Yes Code Status:?? Full Resuscitation Condition:??Stable Prognosis:??Fair Scheduled Follow-Up Appointments 2022 10:30 AM EST ?? With: Lindsay FREEMAN, Julia Mayer Where: [facility] [address] [place] [address]- You Need to Schedule the Following Appointments Follow Up with??Jose LEE MD, Jorge Tsang When?? Where: [address] [place] [address] MORALES Aguilar [phone]- Discharge Medications CARLOS BRUMFIELD :1955 Visit Date:01/09/2023 Medications: Please continue your medications until treatment is completed or stopped by your provider. Medications not listed below should be discontinued. Discuss any questions related to medications with your provider. What How Much When Instructions Next Dose New Enoxaparin 60 Milligram Subcutaneous Injection Every 12 hours Stop Once INR>2.0 on COumadin ?? 01/21 2000 New Midodrine (midodrine 5 mg oral tablet) 2 tab(s) Oral 3 times a day Hold for SBP>110 ?? 01/21 1500 Changed Acetaminophen (acetaminophen 325 mg oral tablet) 2 tab(s) Oral Every 4 hours as needed for as needed for fever 01/21 1300 PRN Changed Aspirin (aspirin 81 mg oral capsule) 1 capsule Oral Daily 01/22 800 Changed Budesonide-Formoterol (Symbicort 160mcg/ 4.5mcg Inhaler) INHALE 2 PUFFS INTO THE LUNGS TWICE A DAY ?? 01/21 2000 Changed Dicyclomine (dicyclomine 10 mg oral capsule) 1 capsule Oral 4 times a day 01/21 1500 Changed Duloxetine 60 Milligram Oral Twice a day 01/21 2000 Changed Gabapentin (gabapentin 300 mg oral capsule) 2 capsule Oral 3 times a day 01/21 1500 Changed Hydromorphone (Dilaudid 2 mg oral tablet) 2 tab(s) Oral Every 4 hours as needed for as needed for pain Duration: 3 Days Printed Prescription 01/21 1330 PRN Changed Metoprolol (Metoprolol Succinate ER 25 mg oral tablet, extended release) 1 tab(s) Oral Daily 01/22 800 Changed Pantoprazole (pantoprazole 40 mg oral delayed release tablet) TAKE 1 TABLET BY MOUTH TWICE A DAY FOR 30 DAYS ?? 01/22 800 Changed Thiamine (Vitamin B1 100 mg oral tablet) 1 tab(s) Oral Daily 01/22 800 Changed umeclidinium (Incruse Ellipta 62.5 mcg/ inh inhalation powder) 1 puff(s) Inhalation Every 24 hours 01/22 800 Unchanged Albuterol (Albuterol (Eqv-ProAir HFA) 90 mcg/ inh inhalation aerosol) 2 puff(s) Inhalation Every 6 hours as needed for Wheezing/Shortness of Breath 01/22 08 Unchanged Albuterol (albuterol 90 mcg/ inh inhalation powder) 2 puff(s) Inhalation Every 4 hours as needed for as needed 01/22 1300 PRN Unchanged Atorvastatin (atorvastatin 80 mg oral tablet) 1 tab(s) Oral Daily 01/22 800 Unchanged Bisacodyl (bisacodyl 10 mg rectal suppository) 1 suppository(ies) Per rectum Daily as needed for for constipation PRN, Pt had a BM today 01/21 Unchanged Collagenase Topical (Santyl 250 u/ gm ointment) 1 lore Topically Daily left lateral leg ulcer ?? 01/22 800 Unchanged Docusate (docusate sodium 100 mg oral capsule) 1 capsule Oral Daily as needed for constipation 01/22 PRN Unchanged Ferrous Sulfate (ferrous sulfate 325 mg oral enteric coated tablet) 1 tab(s) Oral Daily 01/22 800 Unchanged HydrOXYzine (hydrOXYzine hydrochloride 10 mg oral tablet) 1 tab(s) Oral Twice a day as needed for Anxiety Resume PRN Unchanged Isosorbide Mononitrate (isosorbide mononitrate 30 mg oral tablet, extended release) 1 tab(s) Oral Daily in the morning 01/22 800 Unchanged Lisinopril (lisinopril 2.5 mg oral tablet) TAKE 1 TABLET BY MOUTH EVERY DAY ?? 01/22 800 Unchanged Melatonin 10 Milligram Oral Daily at Bedtime as needed for as needed for sleep 01/21 HS PRN Unchanged Mirtazapine (mirtazapine 15 mg oral tablet) 0.5 tab(s) Oral Daily at Bedtime 01/21 HS Unchanged Multivitamin With Minerals (Calcium with Magnesium, Vitamins D and K oral tablet) See instructions 1 tablet By Mouth Daily ?? 01/22 800 Unchanged Senna (Senna 8.6 mg oral tablet) 1 tab(s) Oral Daily at Bedtime 01/21 HS PRN Unchanged Warfarin (warfarin 5 mg oral tablet) 1 tab(s) Oral Daily 01/21 1800 ?? What How Much When Comments Stop Taking apixaban (apixaban 5 mg oral tablet) 1 tab(s) Oral Twice a day Stop Taking Guaifenesin (guaiFENesin 100 mg/ 5 mL oral liquid) 10 Milliliter Oral Every 4 hours as needed for for cough Stop Taking Isosorbide Dinitrate (isosorbide dinitrate 30 mg oral tablet) 1 tab(s) Oral Daily Stop Taking Lidocaine Topical (lidocaine 5% topical film) 1 patch Topically Daily Stop Taking Loperamide (loperamide 2 mg oral tablet) 1 tab(s) Oral Every 4 hours as needed for as needed for loose stool not to exceed 16 mg/ day ?? Stop Taking nalOXONE (naloxone 4 mg/ 0.1 mL nasal spray) INSTILL 1 SPRAY INTRANASALLY NEEDED FOR SIGNS OF NARCOTIC OVERDOSE ?? Stop Taking Nicotine (nicotine 21 mg/ 24 hr transdermal film, extended release) 1 patch(es) Topically Daily Stop Taking Sodium Biphosphate-Sodium Phosphate (Fleet Enema 19 gm-7 gm rectal enema) 1 Each Per rectum Once as needed for as needed for constipation Stop Taking Tizanidine (tiZANidine 2 mg oral tablet) TAKE 1/ 2 TABLET BY MOUTH 3 TIMES A DAY ?? Test Results Below is a partial list of the most recent Laboratory test results done prior to this discharge. You may have had other tests and procedures not included in this list. Please discuss all test resultswith your provider. ABG (01/11/2023) ???pH - 7.27???pCO2 - 77 mm Hg???pO2 - 64 mm Hg???Bicarbonate, Estimated - 34 mmol/L???Specimen Type - Blood Gas - ARTERIAL???Percent O2 (FIO2) - 40 Basic Metabolic Panel (01/12/2023) ???Sodium - 142 mmol/L???Potassium - 4.2 mmol/L???Chloride - 100 mmol/L???Bicarbonate Level - 33 mmol/L???Anion Gap - 9???Glucose Level - 76 mg/dL???BUN - 14 mg/dL???Creatinine-Blood - 0.7 mg/dL???Estimated GFR Creatinine - 104 ML/MIN/1.73 M2???Calcium - 8.9 mg/dL BUN (01/20/2023) ???BUN - 14 mg/dL CBC (01/20/2023) ???WBC - 6.8 k/mm3???RBC - 2.82 m/mm3???Hgb - 7.6 Gm/dL???Hct - 25.0 %???MCV - 88.7 femtoliters???MCH - 27.0 pg???MCHC - 30.4 g/dL???Platelet Count - 440 k/mm3???RDW-SD - 57.9 femtoliters???MPV - 9.2femtoliters???Nucleated RBC (Automated) - 0.0 #/100 WBC'S???Abs. NRBC - 0.0 k/mm3 CBC w/ Differential (01/08/2023) ???WBC - 18.4 k/mm3???RBC - 3.61 m/mm3???Hgb - 9.7 Gm/dL???Hct - 33.1 %???MCV - 91.7 femtoliters???MCH - 26.9 pg???MCHC - 29.3 g/dL???Platelet Count - 380 k/mm3???RDW-SD - 62.2 femtoliters???MPV - 9.2 femtoliters???Nucleated RBC (Automated) - 0.0 #/100 WBC'S???Abs. NRBC - 0.0 k/mm3???Abs. Neut - 15.1 k/mm3???Abs. Lymph - 1.3 k/mm3???Abs. Desha - 1.4 k/mm3???Abs. Eo - 0.3 k/mm3???Abs. Baso - 0.0 k/mm3???Neut % - 82.3 %???Lymph % - 7.1 %???Desha % - 7.8 %???Eos % - 1.9 %???Baso % - 0.2 %???Imm Gran- 0.7 %???Abs. Imm Gran - 0.1 k/mm3 Comprehensive Metabolic Panel (01/08/2023) ???Sodium - 144 mmol/L???Potassium - 4.1 mmol/L???Chloride - 95 mmol/L???Bicarbonate Level - 43 mmol/L???Anion Gap - 6???Glucose Level - 128 mg/dL???BUN - 19 mg/dL???Creatinine-Blood - 0.6 mg/dL???Estimated GFR Creatinine - 107 ML/MIN/1.73 M2???Calcium - 9.6 mg/dL???Protein, Total - 6.3 Gm/dL???Albu min - 3.7 Gm/dL???AG Ratio - 1.4???Alkaline Phosphatase - 150 units/L???AST (SGOT) - 10 units/L???ALT (SGPT) - 8 units/L???Bilirubin, Total - 0.3 mg/dL COVID-19 (2019 Novel Coronavirus) PCR (01/20/2023) ???COVID-19 PCR Specimen Source - NASAL???COVID-19 PCR Result - NEGATIVE Creatinine (01/20/2023) ???Creatinine-Blood - 0.8 mg/dL???Estimated GFR Creatinine - 100 ML/MIN/1.73 M2 CRP (01/11/2023) ???C-Reactive Protein - 9.8 mg/dL ESR (01/11/2023) ???Sed Rate - 70 mm/hr FUNGAL BROAD RANGE PCR (01/11/2023) ???Fungal Broad Range PCR - NO FUNGAL DNA DETECTED WITH 28S rDNA AND ITS PRIMER SETS.???PCR Specimen Description - TISSUE GLUCOSE POC (01/12/2023) ???Glucose, POC - 104 mg/dL H + H (01/14/2023) ???Hgb - 7.4 Gm/dL???Hct - 26.0 % High??Sensitivity??Troponin T (01/08/2023) ???High Sensitivity Troponin (HSTnT) - 53 ng/L HOLD GEL TUBE (01/14/2023) ???Hold Gel Top - SPECIMEN DISCARDED AFTER 1 WEEK HOLD LAVENDER TUBE (01/10/2023) ???Hold Lavender Top - SPECIMEN DISCARDED AFTER 24 HOURS. INR (01/21/2023) ???INR - 1.8???Protime (PT) - 18.7 seconds Lactate Level (01/11/2023) ???Lactate - 0.9 mmol/L Lactic Acid Level (01/10/2023) ???Lactate - 3.7 mmol/L Lipase (01/08/2023) ???Lipase - 55 units/L Lytes (01/20/2023) ???Sodium - 141 mmol/L???Potassium - 4.2 mmol/L???Chloride - 99 mmol/L???Bicarbonate Level - 36 mmol/L???Anion Gap - 6 Magnesium Level (01/14/2023) ???Magnesium - 1.7 mg/dL Mg Level (01/12/2023) ???Magnesium - 1.7 mg/dL Phosphorus Level (01/14/2023) ???Phosphorus - 4.5 mg/dL ProBNP (01/08/2023) ???Nt-Probnp - 198 pg/mL PTT (01/08/2023) ???APTT - 28.1 seconds SOURCE EXPOSURE PROFILE (01/09/2023) ???Hepatitis B Surface Antigen - NEGATIVE???Hepatitis C Ab - NEGATIVE???HIV 4th Generation Ab-Ag Result - NEGATIVE Troponin T, High Sensitivity (01/09/2023) ???High Sensitivity Troponin (HSTnT) - 55 ng/L Type and Screen (01/14/2023) ???Blood Type - A Negative???Antibody Screen - Negative Vancomycin Peak (01/16/2023) ???Vancomycin Level, Peak - 26.6 mg/L Vancomycin Trough (01/18/2023) ???Vancomycin Level, Trough - 12.3 mg/L Allergies (NKA means No Known Allergies) [...] Belongings I fully understand and agree that [facility] accepts no responsibility for all my [...] of Valuable and Belonging List: With patient Possessions released to: Pippa thorpe sent to pacu per pt request. Date for Pt to Sign Valuables/Belongings: 01/21/23 11:16:00 ?? Other Discharge Information ?? Wound Assessment?? Wound Assessment?? Wound Location I: R shoulder dressing applied C/D/I ?? Case Management Discharge Plan?? Discharge Plan?? Discharge Agency Information?? Discharge Level of Care at Discharge: prison facility Name of Agency #1: [facility] Discharge Transportation Arranged: [facility] [address] [facility] ??[phone] Service Categories #1: Occupational Therapy, Oxygen Therapy, Physical Therapy, [facility] Mode of Transportation Arranged: Ambulance Service Comments #1: [facility]center 01/21/23 leaving ??12:00 ??noon ?? for Rehab Discharge Arranged Transport Date/Time: 01/21/23 12:00:00 ?? Discharge Nursing Homes/Rehab Facilities: [facility] [address] [phone] ? Pulmonary Rehab Status?? Pulmonary Rehab Discharge [...] are strongly encouraged to quit. Please call [facility] [facility] at [phone] or 2-500-218StudyTube ([phone]) or log in to [email or web address] for referrals to smoking cessation programs. ?? The National Suicide Prevention Hotline is available 20/06 if you or someone you know needs to find a reason to keep living. By calling 3-348-152-[employer] (9655) you'll be connected to a skilled, trained counselor at a crisis center in your area. INPATIENT DISCHARGE INSTRUCTIONS SIGNATURE PAGE KOJO CARLOS Location:[facility] Registration Date and Time:01/09/2023 18:11 EST Primary Care Physician: Jose LEE MD, Jorge Tsang, I CARLOS BRUMFIELD, have received the above patient education materials/instructions and have verbalized understanding. If ambulance or transport services are being used I further acknowledge being given a choice of service. ?? If you need to contact me, please call me at this number: . Patient/C 13 Catapult Operator Name: Patient/C 13 Catapult Operator Signature: Relationship to Patient: Witness Name/Signature: Date: * Event Display: Cardiac Rhythm Strips Authored Date: * Brinda Perdomo RN: PERFORM, SIGN, VERIFY Event Display: Case Management Discharge Plan Authored Date: Patient: CARLOS BRUMFIELD Age: 67 years Sex: Male : 1955 Associated Diagnoses: None Author: Brinda Perdomo RN Discharge Plan Case Management Discharge Plan : Case Management Discharge Plan Data 01/20/2023 14:43 EST Discharge Level of Care at Discharge prison facility Discharge Nursing Homes/Rehab Facilities [facility] [address] [place], [place] [phone] Discharge Transportation Arranged [facility] [address] [place] [address] Discharge Arranged Transport Date/Time 01/21/2023 11:00 Mode of Transportation Arranged Ambulance Name of Agency #1 [facility] Service Categories #1 Occupational Therapy, Oxygen Therapy, Physical Therapy, [facility] Service Comments #1 [facility] 01/21/23 leaving 11:00 AM for Rehab * DOLORES Moreira S: TRANSCZack Barron MD: VERIFY Event Display: Result: Authored Date: [id number] INDICATION: Relapsed septic arthritis of the right shoulder. Suspect osteomyelitis. TECHNIQUE: Multiplanar multisequence MRI of the right shoulder was attempted. The patient could nottolerate the examination and no postcontrast images were acquired. The series acquired are motion degraded and demonstrates incomplete fat suppression COMPARISONS: CT chest dated 01/15/2023 FINDINGS: There is a central area of bony erosion involving the articulating humeral head as seen on series 5image 14. Associated confluent low T1 marrow signal within the humeral head extending into the humeral neck, suspicious for osteomyelitis. There appears to be erosion of the articular surface of the glenoid without confluent T1 marrow placement. Trace joint effusion. Chronic massive rotator cuff tear. IMPRESSION: Markedly limited examination due to patient's inability to tolerate an MRI. Last 3 MRIshave essentially been nondiagnostic due to patient's inability to tolerate the exam. Erosion of the humeral head articular surface with confluent T1 marrow replacement within the subchondral humeral head extending into the metaphysis, concerning for osteomyelitis in the appropriate clinical setting. Tagged white blood cell scan may be better tolerated by the patient. No significant joint effusion. Assessment of the soft tissues surrounding the shoulder, markedly limited due to incomplete fat suppression and patient motion artifact. Findings relayed through secure messaging to Dr. Ibarra at 1:09 PM on 01/16/2023. WSN: [id number] Ordering Physician: Mauricio Fernandez Dictated By: Zack Raza MD Dictated Date/Time: 01/16/23 1:09 pm Reviewed By: Zack Raza MD Signed By: Zack Raza MD Signed Date/Time: 01/16/23 1:09 pm Transcribed By: BERENICE Transcribed Date/Time: 01/16/23 12:59 pm * Event Display: Provider Clarification Note Please click on pdf link to open report * Jaciel Bernal RN: PERFORM Event Display: Procedures Invasive Line Authored Date: [id number] Vascular Access Insertion Entered On: 01/13/2023 18:30 EST Performed On: 01/13/2023 18:27 EST by Jaciel Bernal RN Vascular Access Insertion Successful central line placement : Yes Vascular Access Catheter Size : 4F Vascular Access Catheter Length : 41CM Vascular Access Catheter Securement : Statlock Provider Reading CXR : Yonny Lynch MD CXR Comment : Tip in SVC Vascular Access Device QA : Picc is ready for use. Jaciel Bernal RN - 01/13/2023 20:02 EST Date of Vascular Access Insertion : 01/13/2023 EST Procedure Location Vascular Access : IV Room W4 Person recording insertion : Agricultural Lender Agricultural Lender of Vascular Access : Jaciel Bernal RN Occupation of Vascular Access Agricultural Lender : Registered nurse Was quick sketch artist a member of PICC/IV Team : Yes Jaciel Bernal RN - 01/13/2023 18:27 EST Jaciel Bernal RN - 01/13/2023 18:27 EST Procedural Comments Risk Factors and Labs Reviewed : Yes Jaciel Bernal RN - 01/13/2023 20:02 EST Anticoagulation Therapy : Yes Antiplatelet Therapy : No Was vascular access order placed : Yes Vascular Access Type : Central line Time Out Performed : Yes Time Out Data : Patient identified, Site verified, Procedure verified, Consent signed, RN attendance Reason for Vascular Access Insertion : Medication requires use of vascular access Suspected Vascular Access Infection : No, the access was not exchanged over a guide wire Vascular Access Procedure Check : Consent obtained Patient/Family Teaching done : Yes Hand Hygiene prior to insertion : Yes Maximal sterile barriers used : Mask, Sterile gown, Large sterile full body drape, Sterile gloves, Ultrasound sterile cover, Cap Sterile Field Maintained : Yes Skin Preparation : Chlorhexidine (CHG) Skin Prep dry at first skin puncture : Yes Antimicrobial coated catheter used : No Vascular Access Catheter Type : PICC line Vascular Access Insertion Site : Upper extremity Vascular Access Insertion Side : Left Vessel Identified By : Ultrasound Vascular Access Insertion Circumstance : Non-emergent Vascular Access Dressing : Chlorhexidine Follow-up CXR : Ordered Jaciel Bernal RN - 01/13/2023 18:27 EST DCP GENERIC CODE Suture needles : 0 [place] : 3 [place] : 1 Clamps : 0 Guide Wires : 1 Jaciel Bernal RN - 01/13/2023 18:27 EST Complications during Insertion : None Tolerated CLIP procedure well : Yes Insertion Attempts : 1 Vascular Access Device Lot Number : [id number] Vascular Access Device Code : [id number] Jaciel Bernal RN - 01/13/2023 18:27 EST * Kyleigh Frost RN: PERFORM Event Display: Discharge/Transfer Note Hospital Authored Date: [id number] Discharge Planning Nursing Entered On: 01/13/2023 7:42 EST Performed On: 01/13/2023 7:42 EST by Kyleigh Frost RN Discharge Planning Nursing Anticipated discharge : Unable to determine Kyleigh Frost RN - 01/13/2023 7:42 EST * Event Display: Cardiac Rhythm Strips Authored Date: * BHSPowerscribe , CIS S: TRANSCRIBE Giacomo España MD: VERIFY Event Display: Result: Authored Date: Chest 2 Views Frontal and Lat INDICATION/CLINICAL QUESTION: Reason: Shortness of Breath; Clinical Question(s): CHF / CHF TECHNIQUE: Frontal and lateral views of the chest. COMPARISON: 11/21/2022. FINDINGS: LINES AND TUBES: Malleable plates and screws associated with 3 different right-sided ribs. LUNGS AND PLEURA: RIGHT CHEST: The right lung is clear and there is no right effusion. LEFT CHEST: The left lung is clear and there is no left effusion. HEART, MEDIASTINUM AND SIVAN: The heart is of normal size. The mediastinum and sivan are normal. BONES AND SOFT TISSUES: No acute bony abnormality. Old healed fracture distal right clavicle. Old rib fractures surgically repaired.. IMPRESSION: 1. No active disease in chest. 2. No acute bony abnormality. WSN: [id number] Ordering Physician: Barb Villavicencio Dictated By: Giacomo España MD Dictated Date/Time: 01/09/23 10:10 a Reviewed By: Giacomo España MD Signed By: Giacomo España MD Signed Date/Time: 01/09/23 10:10 am Transcribed By: BERENICE Transcribed Date/Time: 01/09/23 10:08 am History and physical note * Jair Del Rosario MD: PERFORM Event Display: History and Physical Hospital Authored Date: [id number] Patient: ??CARLOS BRUMFIELD ? Age:??67 Years?Sex:??Male?:??1955?? Chief Complaint/Reason for Consultation Brought in by EMS for evaluation of shortness of breath and right shoulder pain with increasing drainage. History of Present Illness ?? Carlos is a 67-year-old gentleman with a past medical history of anemia, CAD, COPD on 2 to 3 L oxygen at home, MRSA right shoulder septic arthritis, chronic low back pain, chronic leg pain, coronary artery disease,??deep vein thrombosis on Coumadin, GERD,??essential hypertension,??hyperlipidemia,??myocardial infarction x3, peripheral vascular disease,??presented to hospital with complaint of right shoulder pain with copious??amount of discharge??discharge from prior surgical??wound??and??shortness of breath.?? Patient reports that??patient was at rehab??recently for??completion of vancomycin for 4 weeks??for right shoulder MRSA septic arthritis, status post??prior I&D, discharged?from rehab??only 3 days ago, around. ??At the rehab, patient continued to have foul-smelling drainage??from his??right shoulder??wound, patient is status post??incision and drainage by??Ortho team on??09/20. ??This morning, he is noticed to have??worsening shortness of breath with increasing drainage from right shoulder as well as left hip pain and finally??called EMS to come to hospital.?? Patient does not have any fever, no??sputum, no cough, no nasal discharge.?? In ER, patient got breathing treatment, status post BiPAP,??shortness of breath got better.?? Currently patient is on??3 L of nasal cannula??with 99% saturation.?? Patient reports that his right shoulder pain is worse,??has got increasing drainage with foul-smelling.?? During my interaction, patient was awake alert oriented,??significant discomfort??due to right shoulder pain and left hip pain.? Patient denies any nausea vomiting diarrhea. ??Denies any sick contact,??denies any chest pain or chest heaviness. ? ER work-up:? WBC 18.4, neutrophil 82%, INR 1.2, sodium 144, potassium 4.1 Chest x-ray???unremarkable Right shoulder x-ray???No plain film evidence of osteomyelitis. 3. Old healed fracture distal right clavicle ?I went through all his home medications, clarified on medication and updated??med rec.?he is on Coumadin for??DVT, ??no more Eliquis???does not know why Review of Systems ?? Constitutional:??No weight loss, fever, chills, weakness or fatigue. Allergy/Immune: Denies any??Eczema or hives Eyes:??No visual loss, blurred vision, double vision or yellow sclera ENT:??No hearing loss, sneezing, congestion, runny nose or sore throat. Respiratory:??As above. Cardiovascular:??No chest pain, chest pressure or chest discomfort. No palpitations or pedal edema. Gastrointestinal:??No anorexia, nausea, vomiting or diarrhea. No abdominal pain or blood in stool. Genitourinary:??No burning micturition. No urinary frequency or incontinence. Neurologic:??No headache, dizziness, syncope, unilateral weakness, ataxia, numbness or tingling in the extremities. No change in bowel or bladder control. Musculoskeletal:??Right shoulder pain, left hip pain. Hematologic/Lymphatics:??No bleeding or bruising. No painful lymph nodes. Skin:??No rash or itching. Endocrine:??No reports of sweating. No cold or heat intolerance. No polyuria or polydipsia. Psychiatric:??No depression or anxiety. Objective Vital Signs?? Temperature: 98.2 DegF (01/09/23 15:07:00) Temperature Route: Oral (01/09/23 15:07:00) Pulse Rate: 77 bpm (01/09/23 15:07:00) Respiratory Rate: 20 br/min (01/09/23 16:09:00) Vented: No (01/08/23 23:30:00) Systolic Blood Pressure: 130 mm Hg (01/09/23 15:07:00) Diastolic Blood Pressure: 77 mm Hg (01/09/23 15:07:00) Pulse Pressure: 40 mm Hg (01/09/23 02:42:00) Oxygen Saturation: 99 % (01/09/23 15:07:00) Liters per Minute: 3 L/min (01/09/23 15:07:00) Mode of Delivery (Oxygen): Nasal cannula (01/09/23 15:07:00) FiO2: 45 % (01/08/23 23:45:00) Early Warning Score: 3 (01/09/23 18:43:39) ? Physical Exam General:??Alert, awake, not in?? acute cardiopulmonary distress.?? Communicative, pleasant, cooperative, on nasal cannula Eyes:??no eye redness Ear, Nose and Throat:??Oropharynx clear, mucous membranes moist.??no thrush Neck:??Supple, Full range of motion. Respiratory:??Clear to auscultation??. No wheezing, rales or rhonchi. Cardiovascular:??Heart sounds normal. Regular rate and rhythm, no murmurs Gastrointestinal:??Abdomen soft, non-tender, non-distended. Normal bowel sounds. Genitourinary:??No costovertebral angle tenderness. Neurologic:??Cranial nerves II-XII grossly intact. No focal neurological deficits.?? Skin:??No rashes or lesions. No edema. Musculoskeletal:??Right shoulder looks deformed, there is a opening??wound??about 2 cm??on the anterior aspect of the shoulder, with purulent drainage, foul-smelling.?? No significant surrounding erythema??or warmth.?? Patient has got??chronic skin changes on ??left lower extremity compared to right side. ??No pitting edema ? Assessment/Plan ?? Carlos is a 67-year-old gentleman with a past medical history of anemia, CAD, COPD on 2 to 3 L oxygen at home, MRSA right shoulder septic arthritis, chronic low back pain, chronic leg pain, coronary artery disease,??deep vein thrombosis on Coumadin, GERD,??essential hypertension,??hyperlipidemia,??myocardial infarction x3, peripheral vascular disease,??presented to hospital with complaint of right shoulder pain with copious??amount of discharge??discharge from prior surgical??wound??and??shortness of breath.?? Patient reports that??patient was at rehab??recently for??completion of vancomycin for 4 weeks??for right shoulder MRSA septic arthritis, status post??prior I&D, discharged?from rehab??only 3 days ago, around. ??At the rehab, patient continued to have foul-smelling drainage??from his??right shoulder??wound,??status post??incision and drainage by??Ortho team on??09/20.?? Admitted for worsening right shoulder??wound drainage with shortness of breath.? #1 Right shoulder??MRSA septic arthritis??with continuous drainage: Status post??incision and drainage on 09/20??by Ortho team Recently discharged from rehab after completion??of antibiotic Right shoulder x-ray???no osteomyelitis, no fractures Status post??Ortho consult???reviewed Reviewed recent ID consult note WBC 18???on admission Plan: needs ncision and drainage of the right shoulder,??Ortho team on board Nonweightbearing on the right shoulder Continue vancomycin 1 g twice a day Wound culture, blood culture Continue pain management???scheduled Tylenol, tramadol, Dilaudid, stool softeners Continue home dose gabapentin ? #2: COPD exacerbation:?? Acute on chronic??hypoxic study failure: Chronic hypoxic respiratory failure???2 to 3 L??nasal cannula at baseline Shortness of breath much better after??BiPAP and breathing treatment, currently on nasal cannula Holding steroids due to ongoing??septic arthritis Plan: Continue DuoNeb, as needed's schedule Continue budesonide inhaler Recent COVID infection???no need of isolation ?? #3: History of recurrent DVTs, currently on warfarin Verified with patient, patient takes Coumadin INR???1.2???on admission, most likely noncompliance Patient may go for right shoulder I&D,??holding Coumadin Plan: Continue full dose Lovenox until surgery Lovenox switch back to Coumadin following surgery ? #4: History of coronary artery disease, status post stent Peripheral vascular disease:: Essential hypertension: Dyslipidemia: No chest pain, no chest heaviness on admission Reviewed troponin Plan: Continue??statin, Imdur, metoprolol, aspirin ? Anxiety, mood disorder Continue home mirtazapine, duloxetine ? CODE STATUS???full code?? DVT prophylaxis???on full dose Lovenox Diet??regular diet ? Ongoing medical necessity???waiting for surgical intervention on right??shoulder septic arthritis ? Histories Allergies Allergies ?(Active and Proposed [...] ribs Old DC (myocardial infarction) X 3 PVD (peripheral vascular [...] Mouth?Daily?as needed?constipation Duloxetine?60?Milligram?By Mouth?2 times a day Ferrous Sulfate (ferrous sulfate 325 mg oral enteric coated tablet)?325?Milligram?1?tablet?By Mouth?Daily Gabapentin (gabapentin 300 mg oral capsule)?600?Milligram?2?capsule?By Mouth?3 times a day Hydromorphone (Dilaudid 2 mg oral tablet)?2?tab(s)?4?Milligram?By Mouth?Every 4 hours?as needed?as needed for pain [...] (Vitamin B1 100 mg oral tablet)?100?Milligram?1?tablet?By Mouth?Daily Tizanidine (tiZANidine 2 mg oral tablet)?TAKE 1/2 TABLET BY MOUTH 3 TIMES A DAY umeclidinium (Incruse Ellipta 62.5 mcg/inh inhalation powder)?1?puff(s)?Inhalation?Every 24 hours Warfarin (warfarin 5 mg oral tablet)?1?tab(s)?5?Milligram?By Mouth?Daily ? Results Recent Labs BLOOD COUNT & DIFF WBC 18.4 k/mm3 (High)?? 01/08/2023 23:38 RBC 3.61 m/mm3 (Low)?? 01/08/2023 23:38 Hgb 9.7 Gm/dL (Low)?? 01/08/2023 23:38 Hct 33.1 % (Low)?? 01/08/2023 23:38 MCV 91.7 femtoliters ()?? 01/08/2023 23:38 MCH 26.9 pg (Low)?? 01/08/2023 23:38 MCHC 29.3 g/dL (Low)?? 01/08/2023 23:38 Platelet Count 380 k/mm3 ()?? 01/08/2023 23:38 RDW-SD 62.2 femtoliters (High)?? 01/08/2023 23:38 MPV 9.2 femtoliters (Low)?? 01/08/2023 23:38 Nucleated RBC (Automated) 0.0 #/100 WBC'S ()?? 01/08/2023 23:38 Abs. NRBC 0.0 k/mm3 ()?? 01/08/2023 23:38 Abs. Neut 15.1 k/mm3 (High)?? 01/08/2023 23:38 Abs. Lymph 1.3 k/mm3 ()?? 01/08/2023 23:38 Abs. Desha 1.4 k/mm3 (High)?? 01/08/2023 23:38 Abs. Eo 0.3 k/mm3 ()?? 01/08/2023 23:38 Abs. Baso 0.0 k/mm3 ()?? 01/08/2023 23:38 Neut % 82.3 % (High)?? 01/08/2023 23:38 Lymph % 7.1 % (Low)?? 01/08/2023 23:38 Desha % 7.8 % ()?? 01/08/2023 23:38 Eos % 1.9 % ()?? 01/08/2023 23:38 Baso % 0.2 % ()?? 01/08/2023 23:38 Imm Gran 0.7 % ()?? 01/08/2023 23:38 Abs. Imm Gran 0.1 k/mm3 ()?? 01/08/2023 23:38 ?? CARDIAC Nt-Probnp 198 pg/mL (High)?? 01/08/2023 23:38 High Sensitivity Troponin (HSTnT) 55 ng/L (Critical)?? 01/09/2023 01:53 ?? CHEM GENERAL Sodium 144 mmol/L ()?? 01/08/2023 23:38 Potassium 4.1 mmol/L ()?? 01/08/2023 23:38 Chloride 95 mmol/L (Low)?? 01/08/2023 23:38 Bicarbonate Level 43 mmol/L (Critical)?? 01/08/2023 23:38 Anion Gap 6 ()?? 01/08/2023 23:38 Glucose Level 128 mg/dL (High)?? 01/08/2023 23:38 BUN 19 mg/dL ()?? 01/08/2023 23:38 Creatinine-Blood 0.6 mg/dL (Low)?? 01/08/2023 23:38 Estimated GFR Creatinine 107 ML/MIN/1.73 M2 ()?? 01/08/2023 23:38 Calcium 9.6 mg/dL ()?? 01/08/2023 23:38 Magnesium 1.9 mg/dL ()?? 01/08/2023 23:38 Protein, Total 6.3 Gm/dL ()?? 01/08/2023 23:38 Albumin 3.7 Gm/dL ()?? 01/08/2023 23:38 AG Ratio 1.4 ()?? 01/08/2023 23:38 Alkaline Phosphatase 150 units/L (High)?? 01/08/2023 23:38 Lipase 55 units/L ()?? 01/08/2023 23:38 AST (SGOT) 10 units/L ()?? 01/08/2023 23:38 ALT (SGPT) 8 units/L ()?? 01/08/2023 23:38 Bilirubin, Total 0.3 mg/dL ()?? 01/08/2023 23:38 Lactate 1.7 mmol/L ()?? 01/08/2023 23:38 ?? COAG INR 1.2 (High)?? 01/08/2023 23:38 Protime (PT) 12.3 seconds (High)?? 01/08/2023 23:38 APTT 28.1 seconds ()?? 01/08/2023 23:38 ?? SEROLOGY INF DISEASE Hepatitis B Surface Antigen NEGATIVE (N)?? 01/09/2023 02:00 Hepatitis C Ab NEGATIVE (N)?? 01/09/2023 02:00 HIV 4th Generation Ab-Ag Result NEGATIVE (N)?? 01/09/2023 02:00 ? Imaging(s) ?Chest 2 Views Frontal and Lat ?? 01/09/2023 01:58??by Giacomo España MD ? IMPRESSION: 1. No active disease in chest. ?? 2. No acute bony abnormality ?Shoulder Min 2 Views Right ?? 01/09/2023 01:58??by Giacomo España MD ?IMPRESSION: 1. No recent bony injury. ?? 2. No plain film evidence of osteomyelitis. 3. Old healed fracture distal right clavicle. 4. Humeral head is not dislocated. However it is subluxed superiorly compared to the glenoid and this has been present previousl ? EKG study * Event Display: ECG 12-Lead Authored Date: Please click on pdf link to open report * Event Display: ECG 12-Lead Authored Date: Ventricular Rate: 78 BPM Atrial Rate: 78 BPM P-R Interval: 172 ms QRS Duration: 84 ms Q-T Interval: 398 ms QTC Calculation(Bazett): 453 ms R Solon: 4 degrees T Solon: 68 degrees Normal sinus rhythm Normal ECG When compared with ECG of 21-NOV-2022 22:39, Premature atrial complexes are no longer Present Confirmed by ASHLEY DOMÍNGUEZ MD ([id number]) on 01/19/2023 9:43:48 AM [place] * Susu Cotton RN: SIGN, MODIFY, PERFORM, SIGN, VERIFY Event Display: [facility] Authored Date: Patient: CARLOS BRUMFIELD Age: 67 years Sex: Male : 1955 Associated Diagnoses: None Author: Susu Cotton RN Problem Related to Alteration in Comfort : Alteration in Comfort/new 01/21/2023 11:18 EST Alteration in Comfort Related to Disease process, Surgery Goals & Outcomes: Comfort Pt will report acceptable level of comfort & pain control, Pt will state importance of adhering to pain strategy regime, Pt will demonstrate necessary skills to manage pain, Non-verbal indicators will indicate comfort/pain control Interventions Implemented: Comfort Assess pain using appropriate pain scale/tools, Assess aggravating factors & prevent them accordingly Goals/Interventions, Comfort Yes Comfort, Problem Start 01/20/2023 22:57 Reviewed plan with, Comfort Patient Patient Progression, Comfort Pt progressing according to plan Comfort, Problem Ongoing Yes . Alteration in Musculoskeletal : Alteration in Musculoskeletal Func/new 01/21/2023 11:18 EST Alteration in Musculoskeletal Related to Mobility, Orthopedic Procedure, Other:s/p R shoulder washout 01/11 Goals & Outcomes, Musculoskeletal Affected extremity will [...] repositioning, Encourage deep breathing & coughing exercises, Notify MD immediately if tissue perfusion deteriorates, Obtain assistive devices as needed, Teach & Encourage use of Incentive spirometer, Teach Pt/caregiver on ADL's & adaptive equipment, Teach Pt/caregiver on exercises, Teach pt/caregiver on use of pain scale, Teach Pt/caregiver complications of immobility, Teach Pt/caregiver techniques to increase mobility, Teach Pt/caregiver on safety precautions, Incision care as ordered Goals/Interventions, Musculoskeletal Yes Musculoskeletal, Problem Start 01/11/2023 12:16 Reviewed Plan with, Musculoskeletal Patient Patient Progression, Musculoskeletal Pt progressing according to plan . Nursing Data Vital Signs : VITAL SIGNS SECTION 01/21/2023 7:02 EST Temperature 97.4 DegF Temperature Route Oral Pulse Rate 62 bpm Respiratory Rate 19 br/min Systolic Blood Pressure 102 mm Hg (Modified) Diastolic Blood Pressure 54 mm Hg L Mean Arterial Pressure 70 mm Hg (Modified) Pulse Pressure 48 mm Hg (Modified) Oxygen Saturation 98 % Liters per Minute 3 L/min Mode of Delivery (Oxygen) Nasal cannula (Modified) . Narrative/Incidental Care assumed at 0600 VSS afebrile, alert and orientedx4. Pt reports pain as 8/10 mostly in R shoulder, medicated with Dilaudid 2mg PO with fair effect. Lowest reported pain was 7/10. Pt had an inc BMthis AM. Pt is voiding with urinal. Tolerating diet, no n/v. Abd soft NT +BS. LS CTA/Dim on 3L NC. Scheduled nebs admin as ordered. R shoulder dsg CDI. Skin grossly intact, has healed scar over arms and chest. LUE 1L PICC CDI patent and flushes well, locked with heparin 5ml as ordered. Plan for DC to rehab today, lease picker is 1200. Pt is aware of plan of care, Nsg will continue to monitor. Problem - ALteration in comfort Interventions- see above interventions Eval- Pt reports pain as 8/10 mostly in R shoulder, medicated with Dilaudid 2mg PO with fair effect. Lowest reported pain was 7/10. Ice packs provided, along with PO tylenol PRN and scheduled gabapentin Problem- Alteration in musculoskeletal system Intervention- see above interventions Eval- Pt is one assist OOB, Pt is able to turn and reposition himself in bed. Nsg will continue to encourage activty as ordered and safety (bed alarm and chair alarm0. Discharge Information Case Management Discharge Plan : Case Management Discharge Plan Data 01/20/2023 14:43 EST Discharge Level of Care at Discharge prison facility Discharge Nursing Homes/Rehab Facilities [facility] [address], [place] [phone] Discharge Transportation Arranged [facility] [address] [place] [address] Discharge Arranged Transport Date/Time 01/21/2023 12:00 (Modified) Mode of Transportation Arranged Ambulance Name of Agency #1 [facility] Service Categories #1 Occupational Therapy, Oxygen Therapy, Physical Therapy, [facility] Service Comments #1 You will be going to [facility] adair 01/21/23 leaving 12:00 noon for Rehab (Modified) Rehabilitation Discharge : Rehab Discharge Index 01/20/2023 17:29 EST Walker: distance 10-20 01/18/2023 16:13 EST Walker: distance 10-20 01/16/2023 8:29 EST Cane: distance 10-20 * Susu Cotton RN: PERFORM Event Display: Progress Note Hospital Authored Date: Pt aware of plan to DC to rehab facility. Report given to ambulance personnel. PICC in place. All personal belongings packed up and sent along with pt. * Linda Calderon RN: PERFORM, SIGN, VERIFY Event Display: Progress Note Hospital Authored Date: Patient: CARLOS BRUMFIELD Age: 67 years Sex: Male : 1955 Associated Diagnoses: None Author: Linda Calderon RN Findings Problem Related to Alteration in Comfort : Alteration in Comfort/new 01/20/2023 22:00 EST Alteration in Comfort Related to Disease process, Surgery Goals & Outcomes: Comfort Pt will report [...] BH Goals/Interventions, Comfort Yes Comfort, Problem Start 01/20/2023 22:57 Reviewed plan with, Comfort Patient Patient Progression, Comfort Pt progressing according to plan Comfort, Problem Ongoing Yes . Alteration in Musculoskeletal : Alteration in Musculoskeletal Func/new 01/20/2023 22:00 EST Alteration in Musculoskeletal Related to Mobility, Orthopedic Procedure, Other:s/p R shoulder washout 01/11 Goals & Outcomes, Musculoskeletal Affected extremity will [...] repositioning, Encourage deep breathing & coughing exercises, Notify MD immediately if tissue perfusion deteriorates, Obtain assistive devices as needed, Teach & Encourage use of Incentive spirometer, Teach Pt/caregiver on ADL's & adaptive equipment, Teach Pt/caregiver on exercises, Teach pt/caregiver on use of pain scale, Teach Pt/caregiver complications of immobility, Teach Pt/caregiver techniques to increase mobility, Teach Pt/caregiver on safety precautions, Incision care as ordered BH Goals/Interventions, Musculoskeletal Yes Musculoskeletal, Problem Start 01/11/2023 12:16 Reviewed Plan with, Musculoskeletal Patient Patient Progression, Musculoskeletal Pt progressing according to plan . Nursing Data Vital Signs : VITAL SIGNS SECTION 01/20/2023 18:38 EST Temperature 98.2 DegF Temperature Route Oral Pulse Rate 69 bpm Respiratory Rate 18 br/min Systolic Blood Pressure 103 mm Hg Diastolic Blood Pressure 60 mm Hg Blood pressure sites Arm, right Mean Arterial Pressure 74 mm Hg Pulse Pressure 43 mm Hg Oxygen Saturation 97 % Liters per Minute 3 L/min Mode of Delivery (Oxygen) Nasal cannula . Narrative/Incidental Pt A+Ox3. VS stable, afebrile. Lung sounds CTA, diminished to bases. Pt with occasional SOB at baseline, denies any chest pain. Pt on 3L O2 at baseline, sating high 90s, given scheduled resp treatments as ordered. Abd SNT, +BS. Last BM 01/20. Pt tolerating diet, denies N/V. No difficulty voiding. +pp, no edema to BLE, cboots in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 Cabello RN Position: [facility] RN Member Role: Primary Care Nurse Name: Hilaria Aparicio RN Position: [facility] RN Member Role: Primary Care Nurse Name: Carly Rosado RN Position: [facility] RN Neil Member Role: Primary Care Nurse Name: Taryn Rosado RN Position: [facility] RN Member Role: Primary Care Nurse Name: Sydney Rosado RN Position: [facility] RN Member Role: Primary Care Nurse Name: Fidencio Camarena RN Position: [facility] RN Member Role: Primary Care Nurse Name: Uriel Dumont Position: [facility] RN Member Role: Primary Care Nurse Name: Selene Vazquez RN Position: [facility] RN Member Role: Primary Care Nurse Name: Dariana Becerra RN Position: [facility] RN Member Role: Primary Care Nurse Name: Leyla Verma LPN Position: [facility] RN Member Role: Primary Care Nurse Name: Rody Mays RN Position: [facility] RN Member Role: Primary Care Nurse Name: Marielos Mixon RN Position: [facility] RN Member Role: Primary Care Nurse Name: Radha Flores RN Position: [facility] RN Member Role: Primary Care Nurse Name: Rose Kyle RN Position: [facility] Hospital [employer]er Member Role: Primary Care Nurse Name: Aimee Salamanca Position: [facility] RN Member Role: Primary Care Nurse Name: Jacobo Caceres Position: [facility] RN Member Role: Primary Care Nurse Name: Savanna PINK Attending Position: [facility] ED Medicine MD Name: Audra Dallas DO Position: [facility] Resident Member Role: ED Resident Address: Address: [address] [place] [address] Emergency Medicine [place], [place] [address] Name: Monse Brown RN Position: [facility] ED RN W/OE and Tasks Member Role: Patient Care Provider Name: Ashley Montejo RN Position: [facility] ED RN W/OE and Tasks Member Role: Patient Care Provider Name: Kirstin Slater Position: [facility] ED OA Charge Member Role: ED Associate Care Team Related Persons Name: STEVENSON HAMM Address: home [address] Name: MELINA BRUMFIELD Address: [place] [address] Name: GARRY BRUMFIELD Address: home [address] Name: BRIEN LANCASTER Address: home [address]
--- OUTSIDE RECORDS SUMMARY | 2023-08-15 20:33 | XMS_ITS | Continuity of Care Document ---
Author Name Unknown Organization [facility] ter Address [address] [place] [id number] Care Team Providers Care Pharmacy Intake Coordinator Name Role Phone Not on Staff, PCP Primary Care Physician Unavail able Encounter [facility] Date(s): 06/23/23 - 06/30/[address] [address]- Encounter Diagnosis Humerus fracture(Final) - 06/22/23 Discharge Disposition: A-D/C Home Attending Physician: Sukh AMAYA, Manpreet Elam Admitting Physician: Gary Cartagena MD Referring Physician: Not on Staff, Referring [...] virus vaccine, inactivated 1 10/14/06 Gi rox [id number] 12y+ bivalent booster vax 08/23/22 Recorded SARS-CoV-2 [...] Start Date: 07/03/22 Status: Ordered Acetaminophen Tablet 975 mg, Tablet, By Mouth, Temperature Greater than 100.5, 06/30/23 14:00:00 EDT Start Date: 06/30/23 Stop Date: 06/30/23 Status: Completed albuterol 0.042% inhalation solution 3 mL = [...] opioid drug. Start Date: 07/02/22 Status: Ordered Wickes Saline 0.65% nasal gel 1 sprays, Nares, [...] 5 Refills, Maintenance, 04/27/23 13:54:00 EDT, Tablet, [facility], Partial fill upon patient request if the prescription is for a schedule II opioid drug., 183, cm, 04/27/23 7:05:00... Start Date: 04/27/23 Stop Date: 10/24/23 Status: Ordered ferrous sulfate 325 mg oral enteric coated tablet 325 mg, 1, tablet, By Mouth, Daily, # 30 tablet, Refills 1, Tot. Refills 1, Maintenance, 06/04/23 12:19:00 EDT, Route to Pharmacy Electronically, [facility]/pharmacy #[id number], Partial fill upon patient requestif the [...] Status: Ordered HYDROmorphone 4 mg oral tablet = 4 mg, By Mouth, 4 times a day, PRN Pain , Severe, # 28 tablet, 0 Refills, Maintenance, 06/30/23 9:25:00 EDT, Tablet, [facility]/pharmacy #[id number], Partial fill upon patient request if the prescription is fora schedule II opioid drug., 182, cm, 06/30/23 7:58:... Start Date: 06/30/23 Stop Date: 07/07/23 Status: Ordered HYDROmorphone 4 mg oral tablet 4 mg, Tablet, By Mouth, Every 4 hours, PRN for Pain , Severe, Routine, 06/22/23 7:20:00 EDT Start Date: 06/22/23 Stop Date: 07/01/23 Status: Discontinued hydrOXYzine hydrochloride 10 mg oral [...] 06/04/23 11:59:00 EDT, Route to Pharmacy Electronically, [facility]/pharmacy #[id number], Partial fill upon patient request if the [...] release 25 mg, XL Tablet, By Mouth, 06/30/23 9:00:00 EDT Start Date: 06/30/23 Stop Date: 06/30/23 Status: Completed Narcan 4 mg/0.1 mL nasal [...] 0 Refills, Maintenance, 06/08/23 13:43:00 EDT, Tablet, [facility]/pharmacy #[id number], Partial fill upon patient request if [...] 0 Refills, Maintenance, 05/12/23 15:40:00 EDT, Nasal [place], [facility]/pharmacy #[id number], Partial fill upon patient request [...] Exam Date Time Procedure Performing Provider Status 06/22/23 12:[address] Chest W/O Contrast Constance Alfaro sa; Auth (Verified) Notes: (CT Chest W/O Contrast) Reason For Exam: Chest Pain;Other: RESULT: CT Chest W/O Contrast CT Chest W/O Contrast INDICATION: Chest Pain; Clinical Question(s): looking for rib fractures TECHNIQUE: Helical CT scan of the chest without IV contrast, formatted in 3 planes. Weight-based protocol was performed using automatic exposure control. CTDIvol Body: 5.70 mGy, DLP Body: 239 mGy*cm. COMPARISON: 05/07/2023. Shoulder radiographs from 06/22/2023. FINDINGS: Test Man view findings, lines and tubes: None. Trachea and airways: Mucous in the trachea and mainstem bronchi. Lungs and pleura: Severe centrilobular emphysema. Bibasilar atelectasis. Mild groundglass opacity in the left upper lobe, likely inflammatory. Accessory left minor fissure incidentally noted. No effusion or pneumothorax. Mediastinum and sivan: No mass or hematoma. No mediastinal or hilar lymphadenopathy. No esophageal abnormality. Heart: Heart is normal in size. No pericardial effusion. Severe coronary artery calcification. Aorta: Moderate vascular calcification but no aneurysm. Pulmonary arteries: Normal caliber. Chest wall soft tissues: No acute abnormality. Diaphragm: Intact. Upper abdomen: No significant abnormality. Bones: Impacted fracture of the left humeral head with associated shoulder joint lipohemarthrosis and surrounding soft tissue edema. Status post ORIF of the right posterior seventh, eighth, and ninthribs. Mild buckling of the left anterior fifth rib. Chronic left posterolateral 11th rib fracture. Multiple chronic thoracolumbar compression fractures. IMPRESSION: 1. Acute impacted fracture of the left humeral head. 2. Nondisplaced buckle fracture of the left anterior fifth rib, likely acute. 3. Unchanged old rib fractures and chronic thoracolumbar vertebral body compression fractures. 4. Severe emphysema. WSN: [id number] Ordering Physician: Rowena Olivas MD Dictated By: William Wilson MD Dictated Date/Time: 06/22/23 12:55 p Reviewed By: William Wilson MD Signed By: William Wilson MD Signed Date/Time: 06/22/23 12:55 pm Transcribed By: BERENICE Transcribed Date/Time: 06/22/23 12:48 pm * Exam Date Time Procedure Performing Provider Status 06/22/23 3:16 AM Forearm 2 Views Left Chang , Kyleigh; A uth (Verified) Notes: (Forearm 2 Views Left) Reason For Exam: with Pain;Trauma RESULT: Forearm 2 Views Left Forearm 2 Views Left Hx of Present Illness: PT reporting fall on L shoulder heard crunch ; Reason: Trauma; with Pain; Clinical Question(s): Fracture COMPARISON: Left elbow radiographs 06/22/2023 FINDINGS: Only a single PA view of the left forearm could be obtained due to patient intolerance of examination due to pain. Within this limitation, there are no obviously displaced fracture deformities involving the visualized left forearm. Evaluation at the elbow and wrist joints quite limited. No significant joint effusion or swelling of the left wrist. IMPRESSION: Limited evaluation of the left forearm secondary to patient intolerance of examination. Within thislimitation, there are no displaced fractures. I have personally reviewed the images and I agree with this report. WSN: [id number] Ordering Physician: Azra Singh Dictated By: Verónica Ball DO Dictated Date/Time: 06/22/23 8:35 am Reviewed By: Vik Santillan MD Signed By: Vik Santillan MD Signed Date/Time: 06/22/23 8:40 am Transcribed By: BERENICE Transcribed Date/Time: 06/22/23 8:24 am * Exam Date Time Procedure Performing Provider Status 06/22/23 3:16 AM Elbow Min 3 Views Left Chang , Kyleigh; Auth (Verified) Notes: (Elbow Min 3 Views Left) Reason For Exam: with Pain;Trauma RESULT: Elbow Min 3 Views Left Elbow Min 3 Views Left, 3 views Hx of Present Illness: PT reporting fall on L shoulder heard crunch ; Reason: Trauma; with Pain; Clinical Question(s): Fracture COMPARISON: None. FINDINGS: Patient only able to tolerate partially positioning for a lateral view of the left elbow below examination was stopped due to patient pain. Within this limitation, there is no definite displaced fracture deformity of the left elbow, however, the left radial head is incompletely visualized and superimposed by the proximal ulna/olecranon, limiting visualization of subtle fracture deformities. Mild, diffuse demineralization of the osseous structures. Unable to accurately assess for joint effusion due to a true lateral view of the elbow not being able to be obtained for study. IMPRESSION: Limited single lateral view of the left elbow due to patient intolerance, as above. Grossly, there are no displaced fracture deformities, however, if there is clinical concern for fracture at this site, completion imaging of the left elbow can be considered when the patient is able. I have personally reviewed the images and I agree with this report. WSN: [id number] Ordering Physician: Azra Singh Dictated By: Verónica Ball DO Dictated Date/Time: 06/22/23 8:36 am Reviewed By: Vik Santillan MD Signed By: Vik Santillan MD Signed Date/Time: 06/22/23 8:41 am Transcribed By: BERENICE Transcribed Date/Time: 06/22/23 8:21 am * Exam Date Time Procedure Performing Provider Status 06/22/23 3:16 AM Clavicle Complete Left Kyleigh Chang; Luis M (Verified) Notes: (Clavicle Complete Left) Reason For Exam: with Pain;Trauma RESULT: Clavicle Complete Left Clavicle Complete Left Hx of Present Illness: PT reporting fall on L shoulder heard crunch ; Reason: Trauma; with Pain; Clinical Question(s): Fracture COMPARISON: Chest radiograph 06/14/2023 FINDINGS: A mildly displaced moderately impacted fracture through the left proximal humerus surgical neck is redemonstrated. Otherwise, no evidence of an acute osseous abnormality. Intact AC joint with moderate degenerative changes. Normal visualized upper lungs. No radiopaque foreign bodies in the soft tissues. IMPRESSION: No acute fracture involving the left clavicle. A known mildly displaced moderately impacted fracture of the left proximal humerus surgical neck is redemonstrated. I have personally reviewed the images and I agree with this report. WSN: [id number] Ordering Physician: Azra Singh Dictated By: Verónica Ball DO Dictated Date/Time: 06/22/23 8:24 am Reviewed By: Devin Flor MD, V Signed By: Devin Flor MD, V Signed Date/Time: 06/22/23 8:29 am Transcribed By: BERENICE Transcribed Date/Time: 06/22/23 8:17 am * Exam Date Time Procedure Performing Provider Status 06/22/23 5:20 AM Shoulder Min 2 Views Left Florentino Chang na; Auth (Verified) Notes: (Shoulder Min 2 Views Left) Reason For Exam: with Pain;Trauma RESULT: Shoulder Min 2 Views Left Shoulder Min 2 Views Left, 2 views Hx of Present Illness: PT reporting fall on L shoulder heard crunch ; Reason: Trauma; with Pain; Clinical Question(s): Fracture; better Y view +axial please COMPARISON: Left shoulder x-rays from earlier the same day. FINDINGS: There is an impacted left humeral head fracture. There is no dislocation. IMPRESSION: Impacted left humeral head fracture. WSN: [id number] Ordering Physician: Azra Singh Dictated By: Ivy Amado MD Dictated Date/Time: 06/22/23 8:11 am Reviewed By: Ivy Amado MD Signed By: Ivy Amado MD Signed Date/Time: 06/22/23 8:11 am Transcribed By: BERENICE Transcribed Date/Time: 06/22/23 8:06 am * Exam Date Time Procedure Performing Provider Status 06/22/23 3:16 AM Shoulder Min 2 Views Left Florentino Chang; Auth (Verified) Notes: (Shoulder Min 2 Views Left) Reason For Exam: with Pain;Trauma RESULT: Shoulder Min 2 Views Left Shoulder Min 2 Views Left, 2 views Hx of Present Illness: Patient reports falling on left shoulder with immediate pain. Reason: Trauma; with Pain; Clinical Question(s): Fracture COMPARISON: Chest radiograph 06/14/2023 and left clavicle radiograph 06/22/2023 FINDINGS: Mildly displaced surgical neck fracture of the left proximal humerus. Left humeral head remains grossly aligned in the left glenoid with superior and posterior displacement of the distal fracture fragment. Moderate degenerative changes of the AC joint. The portion of the clavicle included on the exam is intact. Mild rotator cuff calcification. IMPRESSION: Acute, mildly displaced surgical neck fracture of the left proximal humerus. Per patient medical note by orthopedic trauma service dated 06/22/2023 at 4:27 AM, orthopedic traumateam reviewed the imaging studies and no the presence of a shortened, impacted, minimally displacedsurgical neck fracture of the left humerus on the consultation note. Medical team is aware of findings. I have personally reviewed the images and I agree with this report. WSN: [id number] Ordering Physician: Azra Singh Dictated By: Verónica Ball DO Dictated Date/Time: 06/22/23 9:09 am Reviewed By: Francisco Reece MD Signed By: Francisco Reece MD Signed Date/Time: 06/22/23 9:14 am Transcribed By: CSSharan Transcribed Date/Time: 06/22/23 8:14 am * Exam Date Time Procedure Performing Provider Status 06/22/23 3:16 AM Chest 2 Views Frontal and Lat Sharan Chang; Auth (Verified) Notes: (Chest 2 Views Frontal and Lat) Reason For Exam: Pain;Other: RESULT: Chest 2 Views Frontal and Lat Chest 2 Views Frontal and Lat CLINICAL INDICATION: Hx of Present Illness: PT reporting fall on L shoulder heard crunch ; Reason:Other:; Pain; Clinical Question(s): Other:; Fracture, pneumothorax, pulmonary contusion COMPARISON: Prior radiograph, most recently 06/14/2023. FINDINGS: The cardiac silhouette is within normal limits. Calcification is seen along the aortic arch. There is prominence of the main pulmonary artery contour suggesting pulmonary hypertension. Hilar contours are normal. Emphysematous changes are seen, though there is no focal airspace disease. There is no pleural effusion, pneumothorax, or evidence of CHF. No acute osseous abnormality is noted. There has been ORIF of 3 right-sided ribs with a chronicallydisplaced screw noted. IMPRESSION: No acute cardiopulmonary process. WSN: [id number] Ordering Physician: Azra Singh Dictated By: Ivy Amado MD Dictated Date/Time: 06/22/23 7:58 am Reviewed By: Ivy Amado MD Signed By: Ivy Amado MD Signed Date/Time: 06/22/23 7:58 am Transcribed By: BERENICE Transcribed Date/Time: 06/22/23 7:56 am * Exam Date Time Procedure Performing Provider Status 06/22/23 3:[address] Cervical Spine W/O Contrast Stupak , Stu; Auth (Verified) Notes: (CT Cervical Spine W/O Contrast) Reason For Exam: Neck trauma, dangerous injury mechanism;Other: RESULT: CT Cervical Spine W/O Contrast CT Head/Brain W/O Contrast, CT Cervical Spine W/O Contrast INDICATION: Hx of Present Illness: PT reporting fall on L shoulder heard crunch ; Reason: Trauma; Clinical Question(s): Hematoma TECHNIQUE: Noncontrast head CT using axial technique was reconstructed in axial and coronal planes.Noncontrast spiral CT through the cervical spine was formatted in 3 planes. Automatic tube modulation was used for the cervical spine and iterative dose reconstruction was used for both the head and cervical spine to optimize scan parameters and image quality. CTDIvol Body: 11.90 mGy, DLP Body: 328 mGy*cm. CTDIvol Head: 39.20 mGy, DLP Head: 1344 mGy*cm. COMPARISON: Multiple priors most recently 05/13/2023 FINDINGS: Motion degraded evaluation of the cervical spine. Test Man View Findings, Lines and Tubes: None. BRAIN AND EXTRA-AXIAL SPACES: No parenchymal hemorrhage, midline shift, or mass effect. Pham-white matter differentiation is wellpreserved. No acute infarct. Ventricles, sulci, and basilar cisterns are normal. Mild low-density white matter changes. No subarachnoid hemorrhage. No subdural or epidural collection. CALVARIUM, SKULL BASE, AND SOFT TISSUES: No fractures or suspicious bony lesions. Trace bilateral mastoid effusions, unchanged. The paranasal are clear. Status-post bilateral lens extraction. The extracranial soft tissues are unremarkable. CERVICAL SPINE: No fracture. No acute osseous abnormalities. Unchanged anterolisthesis of the C3 on C4 . Mild retrolisthesis of C5 on C6. No locked or perched facet. Moderate multilevel degenerative disc space narrowing and end plate irregularity. At least moderate central canal is narrowing at C3-C4. OTHER BONES: No acute abnormality. CERVICAL SOFT TISSUES AND LUNG APICES: Vascular calcifications. Severe centrilobular emphysema. IMPRESSION: 1. No evidence of acute intracranial abnormality. 2. No evidence of acute fracture or dislocation of the cervical spine. I have personally reviewed the images and I agree with this report. WSN: [id number] Ordering Physician: Azra Singh Dictated By: Eliel Colvin DO Dictated Date/Time: 06/22/23 7:39 am Reviewed By: William Wilson MD Signed By: William Wilson MD Signed Date/Time: 06/22/23 7:44 am Transcribed By: BERENICE Transcribed Date/Time: 06/22/23 3:46 am * Exam Date Time Procedure Performing Provider Status 06/22/23 3:[address] Head/Brain W/O Contrast Stupak , Ol eg; Auth (Verified) Notes: (CT Head/Brain W/O Contrast) Reason For Exam: Trauma RESULT: CT Head/Brain W/O Contrast CT Head/Brain W/O Contrast, CT Cervical Spine W/O Contrast INDICATION: Hx of Present Illness: PT reporting fall on L shoulder heard crunch ; Reason: Trauma; Clinical Question(s): Hematoma TECHNIQUE: Noncontrast head CT using axial technique was reconstructed in axial and coronal planes.Noncontrast spiral CT through the cervical spine was formatted in 3 planes. Automatic tube modulation was used for the cervical spine and iterative dose reconstruction was used for both the head and cervical spine to optimize scan parameters and image quality. CTDIvol Body: 11.90 mGy, DLP Body: 328 mGy*cm. CTDIvol Head: 39.20 mGy, DLP Head: 1344 mGy*cm. COMPARISON: Multiple priors most recently 05/13/2023 FINDINGS: Motion degraded evaluation of the cervical spine. Test Man View Findings, Lines and Tubes: None. BRAIN AND EXTRA-AXIAL SPACES: No parenchymal hemorrhage, midline shift, or mass effect. Pham-white matter differentiation is wellpreserved. No acute infarct. Ventricles, sulci, and basilar cisterns are normal. Mild low-density white matter changes. No subarachnoid hemorrhage. No subdural or epidural collection. CALVARIUM, SKULL BASE, AND SOFT TISSUES: No fractures or suspicious bony lesions. Trace bilateral mastoid effusions, unchanged. The paranasal are clear. Status-post bilateral lens extraction. The extracranial soft tissues are unremarkable. CERVICAL SPINE: No fracture. No acute osseous abnormalities. Unchanged anterolisthesis of the C3 on C4 . Mild retrolisthesis of C5 on C6. No locked or perched facet. Moderate multilevel degenerative disc space narrowing and end plate irregularity. At least moderate central canal is narrowing at C3-C4. OTHER BONES: No acute abnormality. CERVICAL SOFT TISSUES AND LUNG APICES: Vascular calcifications. Severe centrilobular emphysema. IMPRESSION: 1. No evidence of acute intracranial abnormality. 2. No evidence of acute fracture or dislocation of the cervical spine. I have personally reviewed the images and I agree with this report. WSN: [id number] Ordering Physician: Azra Singh Dictated By: Eliel Colvin DO Dictated Date/Time: 06/22/23 7:39 am Reviewed By: William Wilson MD Signed By: William Wilson MD Signed Date/Time: 06/22/23 7:44 am Transcribed By: BERENICE Transcribed Date/Time: 06/22/23 3:46 am Vital Signs Most recent to oldest [Reference Range]: 1 2 3 Height 182 cm (06/30/23 7:58 AM) 182 cm (06/29/23 5:18 PM) 182 cm (06/29/23 11:18 AM) Oxygen Saturation [94-100 %] 91 % *L* (06/30/23 7:58 AM) 98 % (06/30/23 5:00 AM) 98 % (06/29/23 9:00 PM) Pulse Rate [55-90 bpm] 75 bpm (06/30/23 8:29 AM) 75 bpm (06/30/23 7:58 AM) 72 bpm (06/30/23 5:00 AM) Blood Pressure [90-138/55-84 mm Hg] 152/68mm Hg *H* (06/30/23 8:29 AM) 152/69mm Hg *H* (06/30/23 7:58 AM) 123/81mm Hg (06/30/23 5:00 AM) Respiratory Rate [16-30 br/min] 18 br/min (06/30/23 1:00 PM) 18 br/min (06/30/23 1:00 PM) 18 br/min (06/30/23 12:00 PM) Temperature [96.8-100.4 DegF] 98.3 DegF (06/30/23 7:58 AM) 97.7 DegF (06/30/23 5:00 AM) 98.2 DegF (06/29/23 9:00 PM) Liters per Minute 4 L/min (06/30/23 7:58 AM) 4 L/min (06/30/23 5:00 AM) 4 L/min (06/29/23 9:00 PM) Mode of Delivery (Oxygen) Nasal cannula (06/30/23 7:58 AM) Nasal cannula (06/30/23 5:00 AM) Nasal cannula (06/29/23 9:00 PM) Blood pressure sites Arm, left (06/30/23 7:58 AM) Arm, right (06/30/23 5:00 AM) Arm, right (06/29/23 9:00 PM) Temperature Route Oral (06/30/23 7:58 AM) Oral (06/30/23 5:00 AM) Oral (06/29/23 9:00 PM) Social History Social History Type Response Tobacco Use: 4 or less cigar ettes(less than 1/4 pack)/day in last 30 days. Interested in cessation: Yes. Other: Reports smoked at least 30 years, up to 1-2 PPD at one point.. Type: Cigarettes. Sex Male Consult note * Shavon Patel: PERFORM, MODIFY, MODIFY, MODIFY, MODIFY, MODIFY Event Display: Consult Authored Date: [id number] Patient: ??ANT VARMA ? Age:??67 Years?Sex:??Male?:??1955?? Orthopedic recommendations requested from Azra Mccullough??under??supervision of Dr. Witt??in the Emergency Department at [facility]. ?? My location is [facility] ?? HPI: This is a??67 year old??male [...] arthritis who presents to the ED at [facility] s/p??fall. Endorsing pain in the left shoulder. ??Reports fall after being discharged from [facility] hospital??earlier on 06/21/2023. ?? Imaging: X-rays of the??left shoulder reviewed by myself demonstrating a shortened, impacted, minimally displaced??surgical neck??fracture of the left humerus. ?? Physical exam: Per ED provider, patient has has no open wounds, strong pulses. ?? Assessment/Plan: Recommend obtained better scapular Y vs axial view to assess for shoulder fracturedislocation. Will alter plan and provide further recommendations should there be any additional findings on repeat imaging. Patient should be??nonweightbearing on the left upper extremity. ??He can ut ilize a sling for comfort. ??He should??refrain from overhead motion. Recommend elevation, ice for edema control. Patient should follow up with??Dr. Mckeon at [facility]??in 1-2 weeks. Please call [phone] for appointment and with any concerns.? 5-10 minutes spent discussing recommendations with Azra Singh over the phone. No face to faceconsultation was performed as there is no recommendations for orthopedic surgical intervention at this time. >50% of this time was spent discussing direct patient care. verbal consent was abstained with patient/ED providers for orthopedic consultation ?? I have not seen the patient in the last 14 days, and will not see the patient in the next 14 days. Admission evaluation note * Venecia AMAYA, Erik: PERFORM, MODIFY, MODIFY, MODIFY, MODIFY, MODIFY Event Display: Admission Note Authored Date: [id number] Patient: ??ANT VARMA ? Age:??67 Years?Sex:??Male?:??1955?? Chief Complaint/Reason for Consultation L shoulder pain discharged today, fell on left side, heard a crunch History of Present Illness Patient is a 67-year-old with complex medical history including COPD with chronic respiratory failure, on home O2??4 L, longstanding tobacco abuse, LLE DVT, severe PVD s/p left femoral???pop bypass and left femoral endarterectomy, bilateral iliac stent and left common iliac stent, on Eliquis, previous alcohol use disorder, known right shoulder septic arthritis currently on Bactrim due to MRSA on recent superficial wound culture (just d/c from hospital 06/21 at 1pm), coming to the emergency department after mechanical fall around 4 PM.?? Patient is recently ??admitted for COPD exacerbation??anddischarged home??on .?? As per ER note, patient was?? ambulating with EMS staff to his apartment, unfortunately due to the rain he slipped and fell onto his left side.?Patient complaining of significant pain in the left??shoulder.?? In ER patient is found to have??left humeral head fracture.?? Case was discussed with Ortho, recommended??sling and conservative management and outpatient follow-up. In the ER patient is found to have hypoxia??as his oxygen tank??became empty??.?? With oxygen, his hypoxia improved.?? Patient also has elevated troponins in the ER.?? Patient denies any active chestpain, EKG showed nonspecific changes. ? Review of Systems Constitutional:??No weight loss, fever, chills, weakness or fatigue. Allergy/Immune: Denies any??Eczema or hives Eyes:??No visual loss, blurred vision, double vision or yellow sclera ENT:??No hearing loss, sneezing, congestion, runny nose or sore throat. Respiratory:??Complains of shortness of breath,??chest pain Cardiovascular:??Complains of chest pain Gastrointestinal:??No anorexia, nausea, vomiting or diarrhea. No abdominal pain or blood in stool. Genitourinary:??No burning micturition. No urinary frequency or incontinence. Neurologic:??No headache, dizziness, syncope, unilateral weakness, ataxia, numbness or tingling in the extremities. No change in bowel or bladder control. Musculoskeletal:??Chronic of left shoulder pain Hematologic/Lymphatics:??No bleeding or bruising. No painful lymph nodes. Skin:??No rash or itching. Endocrine:??No reports of sweating. No cold or heat intolerance. No polyuria or polydipsia. Psychiatric:??No depression or anxiety. Objective ? Vital Signs?? Temperature: 98.8 DegF (06/22/23 12:48:00) Temperature Route: Oral (06/22/23 12:48:00) Pulse Rate: 80 bpm (06/22/23 12:48:00) Respiratory Rate: 16 br/min (06/22/23 13:23:00) Vented: No (06/22/23 09:17:00) Systolic Blood Pressure: 129 mm Hg (06/22/23 12:48:00) Diastolic Blood Pressure: 79 mm Hg (06/22/23 12:48:00) Blood pressure sites: Arm, right (06/22/23 12:48:00) Mean Arterial Pressure: 105 mm Hg (06/22/23 01:57:00) Pulse Pressure: 50 mm Hg (06/22/23 12:48:00) Oxygen Saturation: 99 % (06/22/23 12:48:00) Liters per Minute: 3 L/min (06/22/23 12:48:00) Mode of Delivery (Oxygen): Nasal cannula (06/22/23 12:48:00) Early Warning Score: 0 (06/22/23 13:23:38) ? Intake/Output? No Data Available ? Physical Exam Constitutional: Alert, in no distress. Mental Status: Oriented to person, place and time. Head: Normocephalic. Eyes: Pupils are equal, round and reactive to light. Extraocular muscles intact. Ear, Nose and Throat: Oropharynx clear, mucous membranes moist. Ears and nose without masses, lesions or deformities. Trachea midline. Neck: Supple, Full range of motion. Respiratory: Decreased air entry barely,??rhonchi present, no wheezing Cardiovascular: S1 S2 regular. Gastrointestinal: Abdomen soft, non-tender, non-distended. Normal bowel sounds. No pulsatile mass. No hepatosplenomegaly. Genitourinary: No costovertebral angle tenderness. Neurologic: Cranial nerves II-XII grossly intact. ??Moves all extremities Musculoskeletal: Left shoulder tenderness present?? heme/Lymphatics/Immun: Palpation of neck reveals no swelling or tenderness of neck nodes. Palpationof groin reveals no swelling or tenderness of groin nodes. Psychiatric: Normal mood and affect Assessment/Plan ?? Patient is a 67-year-old with complex medical history including COPD with chronic respiratory failure, on home O2??4 L, longstanding tobacco abuse, LLE DVT, severe PVD s/p left femoral???pop bypass and left femoral endarterectomy, bilateral iliac stent and left common iliac stent, on Eliquis, previous alcohol use disorder, known right shoulder septic arthritis currently on Bactrim due to MRSA on recent superficial wound culture (just d/c from hospital 06/21 at 1pm), coming to the emergency department after mechanical fall around 4 PM.?? Patient is admitted for??left humeral head fracture. ?? Fall Left humeral head fracture ?? Patient presented with a mechanical fall CT showed?Acute impacted fracture of the left humeral head. Case was discussed by ER with Ortho,??who recommended sling, nonweightbearing status and orthopedicfollow-up. ?? PT evaluation requested ? Left fifth rib fracture CT chest also showed acute??left??fifth rib fracture, nondisplaced ??scheduled [id number] every 8 hours Incentive spirometry, nebs, CPT with Acapella Pain control??with hydromorphone??p.o.??4 mg every 4 hours as needed Also with IV hydromorphone 0.5 mg??every??4 hours as needed??severe pain ?? COPD exacerbation Of note patient is recently discharged from hospital??where he is admitted for COPD exacerbation Currently has rhonchorous breath sounds Start patient on prednisone 40 daily, DuoNebs scheduled, as needed Start??Breo Baseline patient is on 4 L home oxygen Incentive spirometry ?? History of chronic right shoulder septic arthritis Patient was recently switched from doxycycline to Bactrim??as per recommendations Continue Bactrim Wound care to wound on right shoulder ...??Cleanse with Vashe. Pat dry. Apply z-guard to periwound.??Apply morena thick layer of Santyl to wound bed. Cover with Mepilex foam dressing. Change daily and PRN for soilage/soaking. ??*If wound is draining through Mepilex foam dressing; Please use Mextra Pad with DSD* ? Patient should follow-up with??orthopedics at [facility] as outpatient ? Hyperkalemia Given Lokelma, ordered gentle hydration for 1 L Trend K in a.m. If patient is having persistent hyperkalemia then??will need to discuss with ID??to see??if Bactrimcan be changed to different antibiotic ? Elevated troponins Suspect demand ischemia??due to fall and COPD flareup Patient denies any cardiac chest pain EKG showed nonspecific ST wave changes Cardiac??monitoring Follow-up repeat troponin ?? Chronic pain h/o ??multiple vertebral fractures, rib fractures that are constant sources of pain for him Currently on duloxetine, gabapentin?? Continue??home Dilaudid We will also give??IV hydromorphone??0.5 every??4 hours as needed??due to acute left??shoulder pain Wean off of IV hydromorphone as tolerated (Previous progress notes mention to avoid IV hydromorphone) ? History of??DVT Eliquis ?? Hypertension continue??isosorbide, metoprolol ? DVT prophylaxis Eliquis GI prophylaxis pantoprazole Code full code Diet cardiac diet ?? PT evaluation requested Histories Allergies Allergies ?(Active and Proposed Allergies [...] Metabolic alkalosis Multiple fractures of ribs [place] (myocardial infarction) X 3 Pulmonary cachexia due [...] (Brinda): Asthma Other (Another sister-): Lupus ? Travel History Travel Outside [facility]: No ?? Medications Home Medications Acetaminophen (acetaminophen 325 mg [...] to give the dose of NARCAN Nasal [place]. Remove t... Pantoprazole (pantoprazole 40 mg oral delayed release tablet)?1?tab(s)?40?Milligram?By Mouth?Daily Pantoprazole (Protonix 40 mg oral delayed release tablet)?1?tab(s)?40?Milligram?By Mouth?Daily PredniSONE (predniSONE 5 mg oral tablet)?3?tab(s)?15?Milligram?By Mouth?Daily?for 30?Days?15 mg daily maintanence dose after the initial taper roflumilast (roflumilast 500 mcg oral tablet)?1?tab(s)?500?Microgram?By Mouth?Daily Sodium Chloride Nasal (sodium chloride 0.65% nasal spray)?1?spray(s)?Nares, Both?5 times a day?dryness Sodium Chloride Nasal (Wickes Saline 0.65% nasal gel)?1?spray(s)?Nares, Both?4 times a day Sulfamethoxazole/Trimethoprim (sulfamethoxazole-trimethoprim 800 mg-160 mg oral tablet)?160?Milligram?By Mouth?2 times a day?for 30?Days?drink plenty of fluids; ??followup with Ortho and ID before this is completed, to discuss long-term plan. May need further weeks of antibiotics. Thiamine (Vitamin B1 100 mg oral tablet)?100?Milligram?1?tablet?By Mouth?Daily umeclidinium (Incruse Ellipta 62.5 mcg/inh inhalation powder)?1?puff(s)?Inhalation?Every 24 hours ? Inpatient Medications Medications (29) Active SCHEDULED: (17) Acetaminophen 325 mg Tablet (Acetaminophen Tablet) ??975 mg, By Mouth, Every 8 hours Albuterol/Ipratropium Inhalation Marilin 3mL (Duoneb Inhalation [...] coated tablet) ??325 mg, By Mouth, Daily Isosorbide Dinitrate 20 mg Tablet (isosorbide dinitrate [...] tablet) ??500 mcg, By Mouth, Daily Sodium Zirconium 10 Gm Packet (Lokelma Packet) ??10 Gm 1 pack/packet, By Mouth, Once Sulfamethoxazole 800 mg/Trimethoprim 160 mg Tablet (Bactrim DS Tablet) ??1 tablet, By Mouth, 2 times a day Thiamine 100 mg Tablet (Vitamin B1 100 mg oral tablet) ??100 mg, By Mouth, Daily CONTINUOUS: (1) NaCL 0.9% (1000 mL) Cont IV 1,000 mL (Sodium Chloride 0.9% 1,000 mL) ??1,000 mL, IV Infusion, 75 mL/hr PRN: (11) Albuterol/Ipratropium Inhalation Marilin 3mL (Duoneb Inhalation Solution) ??1 vials, BAND Nebulizer, Every 4 hours Dextromethorphan-Guaifenesin 20 mg-200 mg/10 mL Liqu UD (Robitussin DM Liquid) ??10 mL, By Mouth, Every 4 hours HYDROmorphone 0.5 mg/0.5 mL Inj Syringe (Dilaudid Inj) ??0.5 mg 0.5 mL, IV Push Slowly, Every 3 hours HYDROmorphone 4 mg Tablet (HYDROmorphone 4 mg oral tablet) ??4 mg, By Mouth, Every 4 hours HydrOXYzine HCL 10mg Tablet (hydrOXYzine hydrochloride 10 mg oral tablet) ??10 mg, By Mouth, 3 times a day Melatonin (melatonin 3 mg oral tablet) ??10 mg, By Mouth, Daily at bedtime NaCl 0.9% Flush 3ml (NaCL 0.9% Flush) ??3 mL, IV Push, Every 8 hours Polyethylene Glycol 17 Gm Powder (MiraLax Powder) ??17 Gm 1 pack/packet, By Mouth, Daily Senna 8.6 mg / Docusate 50 mg tablet (Docusate/Senna Tablet) ??1 tablet, By Mouth, 2 times a day Simethicone 80 mg Chewable Tablet (simethicone 80 mg oral tablet, chewable) ??80 mg, Chew, 3 times a day Simethicone 80 mg Chewable Tablet (Simethicone Tablet) ??80 mg, Chew, 3 times a day ? Results Recent Labs BLOOD BANK Blood Type A Negative ()?? 06/21/2023 07:40 Antibody Screen Negative ()?? 06/21/2023 07:40 ?? BLOOD COUNT & DIFF WBC 13.7 k/mm3 (High)?? 06/22/2023 04:07 RBC 3.22 m/mm3 (Low)?? 06/22/2023 04:07 Hgb 8.9 Gm/dL (Low)?? 06/22/2023 04:07 Hct 29.4 % (Low)?? 06/22/2023 04:07 MCV 91.3 femtoliters ()?? 06/22/2023 04:07 MCH 27.6 pg ()?? 06/22/2023 04:07 MCHC 30.3 g/dL (Low)?? 06/22/2023 04:07 Platelet Count 356 k/mm3 ()?? 06/22/2023 04:07 RDW-SD 57.1 femtoliters (High)?? 06/22/2023 04:07 MPV 9.0 femtoliters (Low)?? 06/22/2023 04:07 Nucleated RBC (Automated) 0.0 #/100 WBC'S ()?? 06/22/2023 04:07 Abs. NRBC 0.0 k/mm3 ()?? 06/22/2023 04:07 Abs. Neut 11.9 k/mm3 (High)?? 06/22/2023 04:07 Abs. Lymph 0.7 k/mm3 (Low)?? 06/22/2023 04:07 Abs. Love 0.8 k/mm3 ()?? 06/22/2023 04:07 Abs. Eo 0.1 k/mm3 ()?? 06/22/2023 04:07 Abs. Baso 0.1 k/mm3 ()?? 06/22/2023 04:07 Neut % 86.5 % (High)?? 06/22/2023 04:07 Lymph % 5.4 % (Low)?? 06/22/2023 04:07 Love % 6.0 % ()?? 06/22/2023 04:07 Eos % 0.8 % ()?? 06/22/2023 04:07 Baso % 0.4 % ()?? 06/22/2023 04:07 Imm Gran 0.9 % ()?? 06/22/2023 04:07 Abs. Imm Gran 0.1 k/mm3 ()?? 06/22/2023 04:07 ?? BLOOD GAS Specimen Type - Blood Gas VENOUS ()?? 06/22/2023 08:30 pH, Venous 7.36 ()?? 06/22/2023 08:30 pCO2, Venous 60 mm Hg (High)?? 06/22/2023 08:30 pO2, Venous 59 mm Hg (High)?? 06/22/2023 08:30 Bicarbonate, Estimated(Venous) 34 mmol/L (High)?? 06/22/2023 08:30 ?? CARDIAC High Sensitivity Troponin (HSTnT) 40 ng/L (High)?? 06/22/2023 08:31 ?? CHEM GENERAL Sodium 137 mmol/L ()?? 06/22/2023 04:07 Potassium 5.3 mmol/L (High)?? 06/22/2023 04:07 Chloride 95 mmol/L (Low)?? 06/22/2023 04:07 Bicarbonate Level 30 mmol/L (High)?? 06/22/2023 04:07 Anion Gap 12 ()?? 06/22/2023 04:07 Glucose Level 87 mg/dL ()?? 06/22/2023 04:07 BUN 22 mg/dL ()?? 06/22/2023 04:07 Creatinine-Blood 0.7 mg/dL ()?? 06/22/2023 04:07 Estimated GFR Creatinine 105 ML/MIN/1.73 M2 ()?? 06/22/2023 04:07 Calcium 8.9 mg/dL ()?? 06/22/2023 04:07 ?? HEME OTHER Hold Lavender Top SPECIMEN DISCARDED AFTER 24 HOURS. ()?? 06/22/2023 08:31 Hold Blue Top SPECIMEN DISCARDED AFTER 4 HOURS. ()?? 06/22/2023 08:31 ?? MISC. CHEMISTRY Hold Gel Top SPECIMEN DISCARDED AFTER 1 WEEK ()?? 06/22/2023 08:31 ?? VIROLOGY COVID-19 by RT-PCR NEGATIVE ()?? 06/22/2023 08:41 ? CBC, CBC w/Diff?? CBC?? Differential?? WBC:??13.7 k/mm3??High (04:07) Abs. Neut:??11.9 k/mm3??High (04:07) RBC:??3.22 m/mm3??Low (04:07) Abs. Lymph:??0.7 k/mm3??Low (04:07) Hct:??29.4 %??Low (04:07) Abs. Love: 0.8 k/mm3 (04:07) RDW-SD:??57.1 femtoliters??High (04:07) Abs. Eo: 0.1 k/mm3 (04:07) Nucleated RBC (Automated): 0 #/100 WBC'S (04:07) Abs. Baso: 0.1 k/mm3 (04:07) Abs. NRBC: 0 k/mm3 (04:07) Neut %:??86.5 %??High (04:07) ?? Lymph %:??5.4 %??Low (04:07) ?? Love %: 6 % (04:07) ?? Eos %: 0.8 % (04:07) ?? Baso %: 0.4 % (04:07) ?? Imm Gran: 0.9 % (04:07) ?? Abs. Imm Gran: 0.1 k/mm3 (04:07) ? BMP, Mg, and Phos Anion Gap: 12 (04:07) Bicarbonate Level:??30 mmol/L??High (04:07) BUN: 22 mg/dL (04:07) Calcium: 8.9 mg/dL (04:07) Chloride:??95 mmol/L??Low (04:07) Creatinine-Blood: 0.7 mg/dL (04:07) Estimated GFR Creatinine: 105 ML/MIN/1.73 M2 (04:07) Glucose Level: 87 mg/dL (04:07) Potassium:??5.3 mmol/L??High (04:07) Sodium: 137 mmol/L (04:07) ?? Urinalysis?? No qualifying data available. ?? Microbiology ?? COVID-19 (Novel Coronavirus), Rapid PCR?? Completed?? Source: Nasal Body Site: Nose Collected Dt/Tm: 06/22/2023 01:40 Last Updated Dt/Tm: 06/22/2023 13:26 ? * Erik Cuadra MD: PERFORM Event Display: Admission Note Authored Date: Patient's??venous PCO2??slightly worsened from??60-66, pH normal Most likely acute on chronic??hypercarbic respiratory failure We will start patient on BiPAP??, plan for repeat??PCO2??after few hours of BiPAP Patient's troponin also??increased from??40-54,??most likely demand ischemia??from acute on chronichypercarbic respiratory failure Patient denies any active??chest pain. We will trend repeat troponin EKG study * Event Display: ECG 12-Lead Authored Date: Please click on pdf link to open report * Event Display: ECG 12-Lead Authored Date: Ventricular Rate: 92 BPM Atrial Rate: 92 BPM P-R Interval: 132 ms QRS Duration: 88 ms Q-T Interval: 348 ms QTC Calculation(Bazett): 430 ms P Lefor: 82 degrees R Lefor: -49 degrees T Lefor: 79 degrees Normal sinus rhythm Left anterior fascicular block Abnormal ECG When compared with ECG of 22-JUN-2023 07:57, No significant change was found Confirmed by ASHLEY DOMÍNGUEZ MD ([id number]) on 06/22/2023 10:51:33 AM [place]: ASHLEY DOMÍNGUEZ MD * Event Display: ECG 12-Lead Authored Date: Please click on pdf link to open report * Event Display: ECG 12-Lead Authored Date: Ventricular Rate: 104 BPM Atrial Rate: 104 BPM P-R Interval: 124 ms QRS Duration: 92 ms Q-T Interval: 338 ms QTC Calculation(Bazett): 444 ms P Lefor: 84 degrees R Lefor: -52 degrees T Lefor: 72 degrees Sinus tachycardia Pulmonary disease pattern Incomplete right bundle branch block Left anterior fascicular block Nonspecific ST and T wave abnormality Abnormal ECG When compared with ECG of 05-JUN-2023 20:10, Left anterior fascicular block is now Present Confirmed by MAGDI BURRIS MD ([id number]) on 06/22/2023 9:04:41 AM [place]: MAGDI BURRIS MD Cardiology * Event Display: Cardiac Rhythm Strips Authored Date: Hospital Progress note * Jahaira Godinez RN: PERFORM, SIGN, VERIFY Event Display: Progress Note Hospital Authored Date: [id number] Patient: ANT VARMA Age: 67 years Sex: Male : 1955 Associated Diagnoses: None Author: Jahaira Godinez RN Findings Problem Related to Alteration in Comfort : Alteration in Comfort/new 06/30/2023 9:00 EDT Alteration in Comfort Related to Injury Goals & Outcomes: Comfort Pt will report acceptable level of comfort & pain control, Pt will state importance of adhering to pain strategy regime, Pt will demonstrate necessary skills to manage pain Interventions Implemented: Comfort Assess pain using appropriate pain scale/tools, Assess aggravating factors & prevent them accordingly, Assess alleviating factors & promote them accordingly BH Goals/Interventions, Comfort Yes Comfort, Problem Start 06/28/2023 14:58 Reviewed plan with, Comfort Patient Patient Progression, Comfort Resolved problem Comfort, Problem Ongoing Yes Comfort, Problem Resolved 06/30/2023 16:49 . Alteration in Respiratory Function (new) : Alteration in Respiratory Function/new 06/30/2023 9:00 EDT Alteration in Resp Status Related to COPD Goals & Outcomes, Respiratory Pt will maintain/resume baseline physical assessment Interventions, Respiratory Assess/monitor tolerance to IV infusions; verify rate/dose, Teach/encourage use of incentive spirometer, Teach the proper use of inhalers, Teach Pt/caregiver Smoking cessation education, Teach purse lip breathing as needed for breathing retraining, Teach tripod positioning to promote air exchange, Resolved problem, Interventions no longer in effect Goals/Interventions, Respiratory Yes Respiratory, Problem Start 06/29/2023 20:00 Reviewed Plan with, Respiratory Patient Patient Progression, Respiratory Resolved problem Respiratory, Problem Resolved 06/30/2023 16:49 . Narrative/Incidental pt arrived from S2, oriented to room, staff and nurse call system. VSS. pt stated having bilat shoulder pain and some relief with prn meds. A+Ox4, speech clear and appropriate, swallowing intact, MAEwith limited movement in bilat arms, moves right >than left. follows commands, denies headache, visual changes, dizziness, numbness and tingling. anxious at times, calms down once aware of plan ofcare. lungs dim throughout, SOB with exertion, intermittent dry cough. HRR, trace bilat LE edema. +CMS, +PP. radha PO. +Bsx4 soft nontender, inc of stool and urine at times, primofit in place, collecting clear, yellow urine. right shoulder dressing changed, would bed pink with macerated wound edges, pinpoint opening in center of the wound draining light, clear drainage. wound changed as ordered. ptaware of dc, stated understood instructions. given IS and left arm placed in sling prior to dc. seebiophysical for full assessment. pt needs at bedside. see biophysical for full assessment will continue with current plan of care and report changes to MD. Discharge Information Case Management Discharge Plan : Case Management Discharge Plan Data 06/30/2023 13:39 EDT Discharge Level of Care at Discharge residential facility Discharge Nursing Homes/Rehab Facilities [facility] 06/27/2023 11:53 EDT Discharge Level of Care at Discharge residential facility Discharge Nursing Homes/Rehab Facilities [facility] Discharge Transportation Arranged [facility] [address] [facility] [id number] [phone] Mode of Transportation Arranged Ambulance * Brinda Levi RN: PERFORM, SIGN, VERIFY Event Display: Progress Note Hospital Authored Date: Patient: ANT VARMA Age: 67 years Sex: Male : 1955 Associated Diagnoses: None Author: Brinda Levi RN Findings Problem Related to Alteration in Comfort : Alteration in Comfort/new 06/29/2023 20:00 EDT Alteration in Comfort Related to Injury Goals & Outcomes: Comfort Pt will report acceptable level of comfort & pain control, Pt will state importance of adhering to pain strategy regime, Pt will demonstrate necessary skills to manage pain Interventions Implemented: Comfort Assess pain using appropriate pain scale/tools, Assess aggravating factors & prevent them accordingly, Assess alleviating factors & promote them accordingly Goals/Interventions, Comfort Yes Comfort, Problem Start 06/28/2023 14:58 Reviewed plan with, Comfort Patient Patient Progression, Comfort Pt progressing according to plan Comfort, Problem Ongoing Yes . Alteration in Respiratory Function (new) : Alteration in Respiratory Function/new 06/29/2023 20:00 EDT Alteration in Resp Status Related to COPD Goals & Outcomes, Respiratory Pt will maintain/resume baseline physical assessment Interventions, Respiratory Assess/monitor tolerance to IV infusions; verify rate/dose, Assess for and report S&S of respiratory distress, Position for comfort & optimal oxygenation Goals/Interventions, Respiratory Yes Respiratory, Problem Start 06/29/2023 20:00 Reviewed Plan with, Respiratory Patient Patient Progression, Respiratory Plan Initiation . Narrative/Incidental Pt A&OX4. VSS. Telemetry SR. Pt refused scheduled nebulizer treatment at . Pt medicated for pain for bilateral shoulder fractures with PO dilaudid-see JAN. Pt did ask about the Oxycodone that was d/c'd. It was explained to the patient that he was being discahrged home in the am and he would not be on both Oxycodone and Dilaudid for his pain. Pt thought he could still get both before he was d ischarged. Pt napping throughout night. Drinks lots of cofffee. Premafit inplace with yellow urine.Pt changed and reositioned Q2 hour with support pillows under arms and at time under legs for comfort. Bed alarm on and call giraldo within reach.. Discharge Information Case Management Discharge Plan : Case Management Discharge Plan Data 06/27/2023 11:53 EDT Discharge Level of Care at Discharge residential facility Discharge Nursing Homes/Rehab Facilities [facility] Discharge Transportation Ar[facility]anged [facility] [address] [facility] [id number] [phone] Mode of Transportation Arranged Ambulance * Sukh AMAYA, Manpreet Elam: PERFORM Event Display: Progress Note Hospital Authored Date: Patient: ??ANT VARMA ? Age:??67 Years?Sex:??Male?:??1955?? Subjective Hx noted appears very comfortable in bed refusing offered rehab bed plan to go home with services tomorrow ?? I explained that it did not make sense for patient to be on oral hydromorphone and oxycodone and would be stopping the oxycodone ?? Review of Systems ?Constitutional: no fevers/chills ?Eyes: no pain, no vision changes ?ENT: no ear pain, no change in hearing ?Cardiovasc: no chest pain, no palpitations, no PND, no orthopnoea ?Resp: no cough, no sputum, no haemoptysis, no dyspnoea ?GI: no abdo pain, no vomiting, no diarrhoea ?? Objective Measurements?? Height: 182 cm (06/29/23) ?? Vital Signs?? Temperature: 98.6 DegF (06/29/23 17:18:00) Temperature Route: Axillary (06/29/23 17:18:00) Pulse Rate: 73 bpm (06/29/23 17:18:00) Respiratory Rate: 18 br/min (06/29/23 17:18:00) Systolic Blood Pressure: 133 mm Hg (06/29/23 17:18:00) Diastolic Blood Pressure: 82 mm Hg (06/29/23 17:18:00) Blood pressure sites: Arm, right (06/29/23 17:18:00) Mean Arterial Pressure: 99 mm Hg (06/29/23 17:18:00) Pulse Pressure: 51 mm Hg (06/29/23 17:18:00) Oxygen Saturation: 100 % (06/29/23 17:18:00) Liters per Minute: 4.5 L/min (06/29/23 17:18:00) Mode of Delivery (Oxygen): Nasal cannula (06/29/23 17:18:00) Early Warning Score: 0 (06/29/23 17:19:09) ? Intake/Output? 06/23 15:47 06/29 07:00 06/28 07:00 06/27 07:00 06/26 07:00 ?? 06/29 18:18 06/29 18:18 06/29 06:59 06/28 06:59 06/27 06:59 Intake ? 9037 ?478 ?896 ? 1376 ? 1870 Output ?68453 ?600 ? 1525 ? 1600 ? 2250 Net Total ?-2438 ? -122 ? -629 ? -224 ? -380 ? Physical Exam Gen: comfortable, well: HEENT: normocephalic, atraumatic Chest: CTA, no wheeze/crackles CVS: no M/G/R, no JVD Abdo: soft, non-tender Ext: no oedema, no cyanosis or clubbing Neuro: A+Ox3 Psych: WNL _ 72 Hour Antibiotic History Active Antibiotics Calendar Day Last Administered First Administered Sulfamethoxazole/Trimethoprim??1 tablet, By Mouth, 2 times a day ?8 06/29/2023 08:40 06/22/2023 09:16 ? Assessment/Plan Assessment:??67-year-old with complex medical history including COPD with chronic respiratory failure, on home O2 4 L, longstanding tobacco abuse, LLE DVT, severe PVD s/p left femoral???pop bypass and left femoral endarterectomy, bilateral iliac stent and left common iliac stent, on Eliquis, previous alcohol use disorder, known right shoulder septic arthritis currently on Bactrim due to MRSA on recent superficial wound culture (just d/c from hospital 06/21 at 1pm), coming to the emergency department after mechanical fall around 4 PM. Patient is admitted for left humeral head fracture. Ortho recommended conservative management. Patient's hemoglobin dropped from baseline of 78-6.7 requiring 1 u nit PRBC transfusion no evidence of gross bleeding. PT recommended home with 24/7 CGA as needed andPT services if not feasible then rehab. Patient stated he will not be able to manage at home and does not have enough care givers and wanted to go to rehab. Rehab placement was requested and patient was accepted at a facility and discharge was being processed and patient refused to go to the rehab due to his past experience with the place. Currently does not want to go to rehab that is out of town. Hence patient is opting to go home states has son is arranging for 24/7 caregivers ?? Fall, Left humeral head fracture Patient presented with a mechanical fall CT showed Acute impacted fracture of the left humeral head. Case was discussed by ER with Ortho, who recommended sling, nonweightbearing status and orthopedic follow-up. Pain control with p.o. hydromorphone ?? Left fifth rib fracture CT chest also showed acute left fifth rib fracture, nondisplaced scheduled Tylenol 975 every 8 hours Incentive spirometry, nebs, CPT with Acapella Pain control with hydromorphone p.o. 4 mg every 4 hours as needed ?? Acute on chronic anemia ??has chronic anemia baseline 7 -8 . previously had extensive work up for anemia ??Hb yesterday 7.2 >> overnight was 6.1, but repeat this am without any transfusion 6.7 , hb of 6.1 was likely error. ??No evidence of overt bleeding ??Haptoglobin High ??06/24 transfuse 1U PRBC for Hb 6.7 ??Hemoglobin stable no further evidence of bleeding resumed Eliquis ?? COPD exacerbation ??Of note patient is recently discharged from hospital where he is admitted for COPD exacerbation ??on prednisone 40 daily >>20 , Dischared on 06/22 with pronged taper ??DuoNebs scheduled, as needed ??Start Breo ??Baseline patient is on 4 L home oxygen ??Incentive spirometry ?? History of chronic right shoulder septic arthritis ??Patient was recently switched from doxycycline to Bactrim as per recommendations ??Continue Bactrim ?? wound on right shoulder ??Wound care : Cleanse with Vashe. Pat dry. Apply z-guard to periwound. Apply morena thick layer of Santyl to wound bed. Cover with Mepilex foam dressing. Change daily and PRN for soilage/soaking. ?*If wound is draining through Mepilex foam dressing; Please use Mextra Pad with DSD* ??Patient should follow-up with orthopedics at [facility] as outpatient ?? Hyperkalemia???resolved ?? Elevated troponins ??Suspect demand ischemia due to fall and COPD flareup ??Patient denies any cardiac chest pain ??EKG showed nonspecific ST wave changes ?? Acute on Chronic pain ??chronic opioid dependence ??h/o multiple vertebral fractures, rib fractures that are constant sources of pain for him ??Currently on duloxetine, gabapentin ??on IV hydromorphone 0.5 every 4 hours as needed due to acute left shoulder pain ??patient reports Home Dilaudid is 4 mg q4 hours, and that he gets pain meds through Dr.paul meier. ??Called patients son who confirmed patients pain doctor as . ??Called dr. Romero office, per their office patient is still on their records as pt but patient has not seen them since August and last prescription from them was in August 2022. patient has multiple op prescriptions from different providers since then. does have multiple admissions,in addition to ED visits for pain medication prescription as well. ??He was weaned off of IV Dilaudid this admit gradually and is currently on po Dilaudid 4mg ??stopped PO oxycodone on 06/29 ?? History of DVT Eliquis resumed ?? Hypertension?? isosorbide, metoprolol ?? Per PT??? should patient be discharged home, patient will require: 24/7 CGA PRN, bedside commode, and PT services. Should that not be feasible, rehab recommended OMN: discharge planning Note * Jahaira Godinez RN: PERFORM Event Display: Discharge/Transfer Note Hospital Authored Date: [id number] Nursing Discharge Note Entered On: 06/30/2023 13:40 EDT Performed On: 06/30/2023 13:39 EDT by Jahaira Godinez RN Nursing Discharge Note 2 Discharge Level of Care at Discharge : residential facility Discharge Nursing Homes/Rehab Facilities : [facility] Patient Left Unit Via : Ambulance Patient Accompanied Off Unit with : Ambulance/Chair Van Personnel Handover Given to Transport Personnel : Yes DC Instructions Provided & Signed by Pt : Yes Patient Understands D/C Instructions : Yes Patient Instructions Discharge Signed : Yes Did Pt have Specialty Bed or Wound Vac : No Jahaira Godinez RN - 06/30/2023 13:39 EDT * Sukh AMAYA, Manpreet Elam: PERFORM Event Display: Discharge/Transfer Note Hospital Authored Date: [id number] Patient: ??KOJOANT ? Age:??67 Years?Sex:??Male?:??1955?? Patient Information Discharge Location: S3 Primary Care Physician: Not on Staff, PCP Admit Date/Time: 06/23/23 15:47 Discharge Disposition Discharge Disposition: Home with Home Health Discharge Diagnosis COPD exacerbation (J44.1) Fall (W19.XXXA) Humerus fracture (S42.309A) Anxiety CAD - Coronary artery disease COPD [...] to give the dose of NARCAN Nasal [place]. Remove t... Pantoprazole (Protonix 40 mg oral delayed release tablet)?1?tab(s)?40?Milligram?By Mouth?Daily PredniSONE (predniSONE 5 mg oral tablet)?3?tab(s)?15?Milligram?By Mouth?Daily?for 30?Days?15 mg daily maintanence dose after the initial taper roflumilast (roflumilast 500 mcg oral tablet)?1?tab(s)?500?Microgram?By Mouth?Daily Sodium Chloride Nasal (sodium chloride 0.65% nasal spray)?1?spray(s)?Nares, Both?5 times a day?dryness Sodium Chloride Nasal (Wickes Saline 0.65% nasal gel)?1?spray(s)?Nares, Both?4 times a day Sulfamethoxazole/Trimethoprim (sulfamethoxazole-trimethoprim 800 mg-160 mg oral tablet)?160?Milligram?By Mouth?2 times a day?for 30?Days?drink plenty of fluids; ??followup with Ortho and ID before this is completed, to discuss long-term plan. May need further weeks of antibiotics. Thiamine (Vitamin B1 100 mg oral tablet)?100?Milligram?1?tablet?By Mouth?Daily umeclidinium (Incruse Ellipta 62.5 mcg/inh inhalation powder)?1?puff(s)?Inhalation?Every 24 hours ? Medications Started hydromorphone Medications Discontinued none Doses Changed none PCP Follow-Up/Heads-Up please ensure that patient follows up with orthopaedics and pain management Future Appointments Tuesday 9:00 AM EDT ?? With: Stevenson Plascencia DO: [facility] [address] [place] [address]- Status: Pending Objective Assessment and Plan Assessment:??67-year-old with complex medical history including COPD with chronic respiratory failure, on home O2 4 L, longstanding tobacco abuse, LLE DVT, severe PVD s/p left femoral???pop bypass and left femoral endarterectomy, bilateral iliac stent and left common iliac stent, on Eliquis, previous alcohol use disorder, known right shoulder septic arthritis currently on Bactrim due to MRSA on recent superficial wound culture (just d/c from hospital 06/21 at 1pm), coming to the emergency department after mechanical fall around 4 PM. Patient is admitted for left humeral head fracture. Ortho recommended conservative management. Patient's hemoglobin dropped from baseline of 78-6.7 requiring 1 u nit PRBC transfusion no evidence of gross bleeding. PT recommended home with 24/7 CGA as needed andPT services if not feasible then rehab. Patient stated he will not be able to manage at home and does not have enough care givers and wanted to go to rehab. Rehab placement was requested and patient was accepted at a facility and discharge was being processed and patient refused to go to the rehab due to his past experience with the place. Currently does not want to go to rehab that is out of town. Hence patient is opting to go home; states son is arranging for 24/7 caregivers ?? Fall, Left humeral head fracture Patient presented with a mechanical fall CT showed Acute impacted fracture of the left humeral head. Case was discussed by ER with Ortho, who recommended sling, nonweightbearing status and orthopedic follow-up. Pain control with p.o. hydromorphone - 1 week prescription provided ?? Left fifth rib fracture CT chest also showed acute left fifth rib fracture, nondisplaced scheduled Tylenol 975 Incentive spirometry Pain control with hydromorphone p.o. 4 mg every 4 hours as needed ?? Acute on chronic anemia ??has chronic anemia baseline 7 -8 . previously had extensive work up for anemia ??Hb yesterday 7.2 >> overnight was 6.1, but repeat this am without any transfusion 6.7 , hb of 6.1 was likely error. ??No evidence of overt bleeding ??Haptoglobin High ??06/24 transfuse 1U PRBC for Hb 6.7 ??Hemoglobin stable no further evidence of bleeding -??resumed Eliquis ?? COPD exacerbation ??Of note patient is recently discharged from hospital where he is admitted for COPD exacerbation ??received course of prednisone 40mg daily ??now back to home 15mg prednisone daily ?DuoNebs scheduled, as needed ??Start Breo ??Baseline patient is on 4 L home oxygen ??Incentive spirometry ?? History of chronic right shoulder septic arthritis ??Patient was recently switched from doxycycline to Bactrim as per recommendations ??Continue Bactrim ?? wound on right shoulder ??Wound care : Cleanse with Vashe. Pat dry. Apply z-guard to periwound. Apply morena thick layer of Santyl to wound bed. Cover with Mepilex foam dressing. Change daily and PRN for soilage/soaking. ?*If wound is draining through Mepilex foam dressing; Please use Mextra Pad with DSD* ??Patient should follow-up with orthopedics at [facility] as outpatient ?? Hyperkalemia???resolved ?? Elevated troponins ??Suspect demand ischemia due to fall and COPD flareup ??Patient denies any cardiac chest pain ??EKG showed nonspecific ST wave changes ?? Acute on Chronic pain ??chronic opioid dependence ??h/o multiple vertebral fractures, rib fractures that are constant sources of pain for him ??Currently on duloxetine, gabapentin?He was weaned off of IV Dilaudid this admit gradually and is currently on po Dilaudid 4mg ?? History of DVT Eliquis resumed ?? Hypertension?? isosorbide, metoprolol ? Vital Signs?? Temperature: 98.3 DegF (06/30/23 07:58:00) Temperature Route: Oral (06/30/23 07:58:00) Pulse Rate: 75 bpm (06/30/23 08:29:00) Respiratory Rate: 18 br/min (06/30/23 08:29:00) Respiratory Rate: 18 br/min (06/30/23 08:29:00) Systolic Blood Pressure:??152 mm Hg??High (06/30/23 08:29:00) Diastolic Blood Pressure: 68 mm Hg (06/30/23 08:29:00) Blood pressure sites: Arm, left (06/30/23 07:58:00) Mean Arterial Pressure: 97 mm Hg (06/30/23 07:58:00) Pulse Pressure: 83 mm Hg (06/30/23 07:58:00) Oxygen Saturation:??91 %??Low (06/30/23 07:58:00) Liters per Minute: 4 L/min (06/30/23 07:58:00) Mode of Delivery (Oxygen): Nasal cannula (06/30/23 07:58:00) Early Warning Score: 2 (06/30/23 08:39:25) ? . Physical Exam Gen: comfortable, well: HEENT: normocephalic, atraumatic, moist mucous membranes Chest: CTA, no wheeze/crackles CVS: no M/G/R, no JVD Abdo: soft, non-tender Ext: no oedema, no cyanosis or clubbing Neuro: A+Ox3 Psych: WNL Pending Results Transfuse RBCs ordered on 06/24/2023 Patient Education Titles Understanding a Humerus Fracture?? Follow-Up Appointments Added Follow Up ?Time Frame ?Comments Jorge Garcia?1 to 2 weeks Alexis Mckeon MD?1 to 2 weeks?please call to schedule appointment César Meier DO?1-2 day: call to discuss follow up visit Patient Instructions Recommendations to rehab /patient : Patient should be??nonweightbearing on the left upper extremity. ??He can utilize a sling for comfort. ??He should??refrain from overhead motion. Recommend elevation, ice for edema control. ?? Patient should follow up with??Dr. Mckeon at [facility]??in 1-2 weeks. Please call [phone] for appointment and with any concerns Home Health Face to Face *Denotes mandatory tapia ?? *I certify that this patient is under my care and that I or an allowed non- physician working with me had a face to face encounter with the patient on this date:??06/30/2023 09:36 ?? *The encounter with the patient was in whole, or in part, for the following medical condition, which is the primary diagnosis(es) for home health care:??COPD exacerbation (J44.1) Fall (W19.XXXA) Humerus fracture (S42.309A) Anxiety CAD - Coronary artery disease COPD [...] Nursing (select all that apply): [_] None [x_] Medication management (reconciliation, teaching)?? [x_] Chronic disease management?? [_] Wound care and treatment?? [x_] Home safety evaluation [_] Administer SQ/IM/IV medications?? [_] Cath care?? [_] Drain care?? [_] Trach or GT care?? Other _ Occupation Therapy (select all that apply): [_] None [x_] ADL Management [_] Fall prevention training [_] Energy conservation [_] Cognitive training Other _ Physical Therapy (select all that apply): [_] None [x_] Functional mobility training [x_] Home exercise program to strengthen [_] Increase [...] assistance/supervision [_] Inability to ambulate without assistance [x_] Pain [x_] Decreased strength and endurance [_] Unsteady gait [_] Severe SOB and fatigue [_] Impaired transfers [_] Inability to negotiate stairs [_] Limited weight bearing [_] Mental status change? *Physician Signature: _Manpreet Luz MD ?? *By signing this, I certify that I have personally evaluated the patient and agree with the findings and recommendations as documented above. ? Results Discharge Labs BLOOD BANK Blood Type A Negative ()?? 06/24/2023 03:57 Antibody Screen Negative ()?? 06/24/2023 03:57 RBC Unit ID [id number] ()?? 06/24/2023 07:45 RBC Available PT ()?? 06/24/2023 07:45 ?? BLOOD COUNT & DIFF WBC 9.5 k/mm3 ()?? 06/26/2023 07:24 RBC 2.69 m/mm3 (Low)?? 06/26/2023 07:24 Hgb 7.9 Gm/dL (Low)?? 06/27/2023 07:17 Hct 25.5 % (Low)?? 06/27/2023 07:17 MCV 90.3 femtoliters ()?? 06/26/2023 07:24 MCH 27.5 pg ()?? 06/26/2023 07:24 MCHC 30.5 g/dL (Low)?? 06/26/2023 07:24 Platelet Count 361 k/mm3 ()?? 06/26/2023 07:24 RDW-SD 54.8 femtoliters (High)?? 06/26/2023 07:24 MPV 9.0 femtoliters (Low)?? 06/26/2023 07:24 Nucleated RBC (Automated) 0.0 #/100 WBC'S ()?? 06/26/2023 07:24 Abs. NRBC 0.0 k/mm3 ()?? 06/26/2023 07:24 Abs. Neut 7.6 k/mm3 (High)?? 06/26/2023 07:24 Abs. Lymph 0.7 k/mm3 (Low)?? 06/26/2023 07:24 Abs. Love 1.0 k/mm3 ()?? 06/26/2023 07:24 Abs. Eo 0.0 k/mm3 ()?? 06/26/2023 07:24 Abs. Baso 0.0 k/mm3 ()?? 06/26/2023 07:24 Neut % 80.3 % (High)?? 06/26/2023 07:24 Lymph % 7.2 % (Low)?? 06/26/2023 07:24 Love % 10.1 % ()?? 06/26/2023 07:24 Eos % 0.1 % ()?? 06/26/2023 07:24 Baso % 0.1 % ()?? 06/26/2023 07:24 Peripheral Blood Smear Review Interp. Reviewed by pathologist. ()?? 06/24/2023 09:26 Retic Count 2.1 % ()?? 06/24/2023 09:26 Retic Count Corrected 1.0 % ()?? 06/24/2023 09:26 Retic Production Index 0.5 % (Low)?? 06/24/2023 09:26 Imm Gran 2.2 % ()?? 06/26/2023 07:24 Abs. Imm Gran 0.2 k/mm3 ()?? 06/26/2023 07:24 ?? BLOOD GAS Specimen Type - Blood Gas VENOUS ()?? 06/22/2023 14:38 pH, Venous 7.34 ()?? 06/22/2023 14:38 pCO2, Venous 66 mm Hg (High)?? 06/22/2023 14:38 pO2, Venous 46 mm Hg (High)?? 06/22/2023 14:38 Bicarbonate, Estimated(Venous) 34 mmol/L (High)?? 06/22/2023 14:38 ? CARDIAC High Sensitivity Troponin (HSTnT) 52 ng/L (High)?? 06/22/2023 17:52 ? CHEM GENERAL Sodium 138 mmol/L ()?? 06/26/2023 07:24 Potassium 4.3 mmol/L ()?? 06/26/2023 07:24 Chloride 100 mmol/L ()?? 06/26/2023 07:24 Bicarbonate Level 29 mmol/L ()?? 06/26/2023 07:24 Anion Gap 9 ()?? 06/26/2023 07:24 Glucose Level 84 mg/dL ()?? 06/26/2023 07:24 Glucose, POC 68 mg/dL (Low)?? 06/22/2023 17:41 BUN 15 mg/dL ()?? 06/26/2023 07:24 Creatinine-Blood 0.6 mg/dL (Low)?? 06/26/2023 07:24 Estimated GFR Creatinine 108 ML/MIN/1.73 M2 ()?? 06/26/2023 07:24 Calcium 8.6 mg/dL ()?? 06/26/2023 07:24 LDH 312 units/L (High)?? 06/24/2023 09:26 Iron Level 18 mcg/dL (Low)?? 06/24/2023 09:26 Iron Binding Capacity, Unsaturated 270 mcg/dL ()?? 06/24/2023 09:26 Iron Binding Capacity, Estimated Total 288 mcg/dL ()?? 06/24/2023 09:26 % Iron Saturation 6 % (Low)?? 06/24/2023 09:26 Ferritin Level 137 ng/mL ()?? 06/24/2023 09:26 ? HEME OTHER Hold Lavender Top SPECIMEN DISCARDED AFTER 24 HOURS. ()?? 06/22/2023 08:31 Hold Blue Top SPECIMEN DISCARDED AFTER 4 HOURS. ()?? 06/22/2023 08:31 ?? IMMUNOLOGY GENERAL Haptoglobin 221 mg/dL (High)?? 06/24/2023 09:26 ? MISC. CHEMISTRY Hold Gel Top SPECIMEN DISCARDED AFTER 1 WEEK ()?? 06/22/2023 08:31 ? VIROLOGY COVID-19 by RT-PCR NEGATIVE ()?? 06/22/2023 08:41 ? Imaging(s) ?CT Head/Brain W/O Contrast ?? 06/22/2023 03:30??by William Wilson MD ? IMPRESSION: ?? 1. No evidence of acute intracranial abnormality. ?? 2. No evidence of acute fracture or dislocation of the cervical spine. ?CT Chest W/O Contrast ?? 06/22/2023 12:37??by William Wilson MD ? IMPRESSION: ?? 1. No evidence of acute intracranial abnormality. ?? 2. No evidence of acute fracture or dislocation of the cervical spine. ?CT Cervical Spine W/O Contrast ?? 06/22/2023 03:30??by William Wilson MD ?Shoulder Min 2 Views Left ?? 06/22/2023 05:20??by Aneudy AMAYA , Ivy Haynes ? FINDINGS: ?? There is an impacted left humeral head fracture. There is no dislocation. ?? IMPRESSION: ?? Impacted left humeral head fracture. WSN: [id number] ?Shoulder Min 2 Views Left ?? 06/22/2023 03:16??by Chevy AMAYA, Francisco ? IMPRESSION: ?? Acute, mildly displaced surgical neck fracture of the left proximal humerus. ?? Per patient medical note by orthopedic trauma service dated 06/22/2023 at 4:27 AM, orthopedic traumateam reviewed the imaging studies and no the presence of a shortened, impacted, minimally displacedsurgical neck fracture of the left humerus on the consultation note. Medical team is aware of findings. ? Consults(s) ?Consult ?? 06/22/2023 04:27??by Shavon Patel ?ortho ? 32_ minutes spent on discharge * Herbert SHANNON, Jahaira Woods: PERFORM Event Display: Patient Education/Instruction Authored Date: [id number] Inpatient Adult Discharge Instructions [address] [id number] Name: ANT VARMA : 1955 Visit: 06/23/2023 15:47:00 Current Date: 06/30/2023 13:42 Account: [id number] Inpatient Adult Discharge Instructions We would like [...] and their families. Surveys are administered by [employer] ?? If further treatment with your primary care physician or another doctor is recommended, it is important for you to keep the appointment. Call your primary care physician or return to the Emergency Department immediately if your condition worsens, fails to improve, or new symptoms develop. If you need to find a doctor, you can call [facility] broadbandchoices for a referral at [phone] or toll free at [phone] ([phone]) or log in to [email or web address] ?? You can view and manage your care through the patient portal or by using a health care lore of your choosing. [employer] is a website that allows you to securely view your medical information including your hospital discharge summary, office visit summaries, medications and follow-up visits. You can also request appointments, renew medications, and request access to your medical information using a health care lore of your choosing, or just ask a question. You can enroll at [email or web address] or register during your next office visit. You have been discharged from [facility], Patient Care Unit: S3. If you have any questions regarding these instructions after you leave, please call us and we will be happy to assist you. [facility] Your Care Team Attending Physician Sukh AMAYA, Manpreet Elam Discharging Providers Sukh AMAYA, Manpreet Elam Reason for Admission L shoulder pain discharged today, fell on left side, heard a crunch Your Diagnosis Humerus fracture Fall COPD exacerbation Tests Performed Below is a partial list of the tests performed during your hospitalization. You may have had other tests and procedures not included in this list. Please discuss all test results with your provider. Basic Metabolic Panel CBC CBC w/ Differential COVID-19 (Novel Coronavirus), Rapid PCR Ferritin GLUCOSE POC H + H Haptoglobin Hemoglobin Hold Blue Top Tube HOLD GEL TUBE HOLD LAVENDER TUBE Iron + Iron Binding Capacity LDH Peripheral Blood Smear Review Reticulocyte Ct Troponin T, High Sensitivity Type and Screen VBG CT Cervical Spine W/O Contrast CT Chest W/O Contrast CT Head/Brain W/O Contrast XR Chest 2 Views Frontal and Lat XR Clavicle Complete Left XR Elbow Min 3 Views Left XR Forearm 2 Views Left XR Shoulder Min 2 Views Left Primary Care Provider Not on Staff, PCP Advance Directive Health Care Proxy on File Yes - Health Care Proxy Yes - MOLST Discharge Vitals Temperature: 98.3 DegF Height: 182 cm Pulse Rate: 75 bpm ?? Respiratory Rate: 18 br/min ?? Systolic Blood Pressure:??152 mm Hg??High ?? Diastolic Blood Pressure: 68 mm Hg ?? Oxygen Saturation:??91 %??Low ?? Studies Pending All tests and labs ordered during this hospital stay have been completed unless listed below. Please discuss all pending results with your provider listed above in these instructions. ?? Transfuse RBCs What to do next Instructions From Your Doctor Recommendations to rehab /patient : Patient should be??nonweightbearing on the left upper extremity. ??He can utilize a sling for comfort. ??He should??refrain from overhead motion. Recommend elevation, ice for edema control. ?? Patient should follow up with??Dr. Mckeon at [facility]??in 1-2 weeks. Please call [phone] for appointment and with any concerns Discharge Orders Scheduled Follow-Up Appointments Tuesday 9:00 AM EDT ?? With: Stevenson Plascencia DO Where: [facility] [address] [place] [address]- Status: Pending You Need to Schedule the Following Appointments Follow Up with??Jorge Garcia When:??Within 1 to 2 weeks Where: [address] [place] [id number]- Business (1) Follow Up with??Alexis Mckeon MD When:??Within 1 to 2 weeks Why: please call to schedule appointment Where: [address] [facility] [facility] [place] [address]- Business (1) Follow Up with??César Meier DO When:??Within 1-2 day: call to discuss follow up visit Where: [facility] [address] [place] [address]- Discharge Medications ANT VARMA :1955 Visit Date:06/23/2023 Medications: Please continue your medications until treatment is completed or stopped by your provider. Medications not listed below should be discontinued. Discuss any questions related to medications with your provider. What How Much When Instructions Next Dose New Hydromorphone (HYDROmorphone 4 mg oral tablet) 4 Milligram Oral 4 times a day as needed for Pain , Severe Duration: 7 Days Pickup at [facility]/pharmacy #[id number] as needed, last dose was at 12pm New Lidocaine Topical (lidocaine 4% patch) Daily 07/01 tomorrow morning Changed Pantoprazole (Protonix 40 mg oral delayed release tablet) 1 tab(s) Oral Daily 07/01 tomorrow morning Unchanged Acetaminophen (acetaminophen 325 mg oral tablet) 2 tab(s) Oral Every 4 hours as needed for as needed for fever as needed Unchanged Albuterol (albuterol 0.042% inhalation solution) 3 Milliliter Nebulized inhalation Every 4 hours 06/30 at 4pm Unchanged Albuterol (albuterol 90 mcg/ inh inhalation powder) 2 puff(s) Inhalation Every 4 hours as needed for as needed as needed Unchanged apixaban (Eliquis 5 mg oral tablet) 1 tab(s) Oral Twice a day Duration: 30 Days 06/30 tonight Unchanged Atorvastatin (atorvastatin 80 mg oral tablet) 1 tab(s) Oral Daily 06/30 tonight Unchanged Budesonide-Formoterol (Symbicort 160mcg/ 4.5mcg Inhaler) 2 puff(s) Inhalation Twice a day 06/30 tonight Unchanged Collagenase Topical (collagenase topical 250 u/ gm ointment) See instructions Use over right shoulder wound daily ?? 07/01 tomorrow morning Unchanged Dicyclomine (dicyclomine 10 mg oral capsule) 1 capsule Oral 4 times a day 06/30 tonight??at 6pm Unchanged Duloxetine (duloxetine 60 mg oral enteric coated capsule) 1 capsule Oral Twice a day 06/30 tonight Unchanged Ferrous Sulfate (ferrous sulfate 325 mg oral enteric coated tablet) 1 tab(s) Oral Daily 07/01 tomorrow morning Unchanged Gabapentin (gabapentin 300 mg oral capsule) 2 capsule Oral 3 times a day 06/30 at 3pm Unchanged Guaifenesin/ Dextromethorphan (Robitussin DM Liquid) 5 Milliliter Oral Every 6 hours as needed for Cough as needed Unchanged HydrOXYzine (hydrOXYzine hydrochloride 10 mg oral tablet) 1 tab(s) Oral 3 times a day as needed for Anxiety as needed Unchanged Isosorbide Dinitrate (isosorbide dinitrate 30 mg oral tablet) 1 tab(s) Oral Twice a day 06/30 tonight Unchanged Loperamide (loperamide 2 mg oral capsule) 1 capsule Oral Every 6 hours as needed for for loose stool as needed Unchanged Melatonin 10 Milligram Oral Daily at Bedtime as needed for as needed for sleep as needed Unchanged Metoprolol (Metoprolol Succinate ER 25 mg oral tablet, extended release) 1 tab(s) Oral Daily 07/01 tomorrow morning Unchanged nalOXONE (Narcan 4 mg/ 0.1 mL nasal spray) See instructions If concern for opioid overdose. Gently insert the tip of the nozzle into one nostril, until your fingers on either side of the nozzle are against the bottom of the person's nose. Press the plunger firmly to give the dose of NARCAN Nasal [place]. Remove the NARCAN Nasal [place] from the nostril after giving the dose. Get emergency medical help right away. ?? if needed Unchanged PredniSONE (predniSONE 5 mg oral tablet) 3 tab(s) Oral Daily Duration: 30 Days 15 mg daily maintanence dose after the initial taper ?? 8 tomorrow morning Unchanged roflumilast (roflumilast 500 mcg oral tablet) 1 tab(s) Oral Daily 07/01 tomorrow morning Unchanged Sodium Chloride Nasal (Wickes Saline 0.65% nasal gel) 1 spray(s) Nares, Both 4 times a day resume home schedule Unchanged Sodium Chloride Nasal (sodium chloride 0.65% nasal spray) 1 spray(s) Nares, Both 5 times a day dryness ?? resume home schedule Unchanged Sulfamethoxazole/ Trimethoprim (sulfamethoxazole-trimethoprim 800 mg- 160 mg oral tablet) 160 Milligram Oral Twice a day Duration: 30 Days drink plenty of fluids; ??followup with Ortho and ID before this is completed, to discuss long-termplan. May need further weeks of antibiotics. ?? 83 tonight Unchanged Thiamine (Vitamin B1 100 mg oral tablet) 1 tab(s) Oral Daily 07/01 tomorrow morning Unchanged umeclidinium (Incruse Ellipta 62.5 mcg/ inh inhalation powder) 1 puff(s) Inhalation Every 24 hours 07/01 tomorrow morning Pharmacy Information [facility]/pharmacy #[id number]: [address], [place] [id number] [phone] Test Results Below is a partial list of the most recent Laboratory test results done prior to this discharge. You may have had other tests and procedures not included in this list. Please discuss all test resultswith your provider. RBC Available - PT (06/24/2023) RBC Unit ID - [id number] (06/24/2023) Basic Metabolic Panel (06/26/2023) ???Sodium - 138 mmol/L???Potassium - 4.3 mmol/L???Chloride - 100 mmol/L???Bicarbonate Level - 29 mmol/L???Anion Gap - 9???Glucose Level - 84 mg/dL???BUN - 15 mg/dL???Creatinine-Blood - 0.6 mg/dL???Estimated GFR Creatinine - 108 ML/MIN/1.73 M2???Calcium - 8.6 mg/dL CBC (06/24/2023) ???WBC - 12.8 k/mm3???RBC - 2.16 m/mm3???Hgb - 6.0 Gm/dL???Hct - 19.0 %???MCV - 88.0 femtoliters???MCH - 27.8 pg???MCHC - 31.6 g/dL???Platelet Count - 297 k/mm3???RDW-SD - 54.6 femtoliters???MPV - 8.9 femtoliters???Nucleated RBC (Automated) - 0.0 #/100 WBC'S???Abs. NRBC - 0.0 k/mm3 CBC w/ Differential (06/26/2023) ???WBC - 9.5 k/mm3???RBC - 2.69 m/mm3???Hgb - 7.4 Gm/dL???Hct - 24.3 %???MCV - 90.3 femtoliters???MCH - 27.5 pg???MCHC - 30.5 g/dL???Platelet Count - 361 k/mm3???RDW-SD - 54.8 femtoliters???MPV - 9.0femtoliters???Nucleated RBC (Automated) - 0.0 #/100 WBC'S???Abs. NRBC - 0.0 k/mm3???Abs. Neut - 7.6 k/mm3???Abs. Lymph - 0.7 k/mm3???Abs. Love - 1.0 k/mm3???Abs. Eo - 0.0 k/mm3???Abs. Baso - 0.0 k/mm3???Neut % - 80.3 %???Lymph % - 7.2 %???Love % - 10.1 %???Eos % - 0.1 %???Baso % - 0.1 %???Imm Gran - 2.2 %???Abs. Imm Gran - 0.2 k/mm3 COVID-19 (Novel Coronavirus), Rapid PCR (06/22/2023) ???COVID-19 by RT-PCR - NEGATIVE Ferritin (06/24/2023) ???Ferritin Level - 137 ng/mL GLUCOSE POC (06/22/2023) ???Glucose, POC - 68 mg/dL H + H (06/27/2023) ???Hgb - 7.9 Gm/dL???Hct - 25.5 % Haptoglobin (06/24/2023) ???Haptoglobin - 221 mg/dL Hemoglobin (06/24/2023) ???Hgb - 7.6 Gm/dL Hold Blue Top Tube (06/22/2023) ???Hold Blue Top - SPECIMEN DISCARDED AFTER 4 HOURS. HOLD GEL TUBE (06/22/2023) ???Hold Gel Top - SPECIMEN DISCARDED AFTER 1 WEEK HOLD LAVENDER TUBE (06/22/2023) ???Hold Lavender Top - SPECIMEN DISCARDED AFTER 24 HOURS. Iron + Iron Binding Capacity (06/24/2023) ???Iron Level - 18 mcg/dL???Iron Binding Capacity, Unsaturated - 270 mcg/dL???Iron Binding Capacity, Estimated Total - 288 mcg/dL???% Iron Saturation - 6 % LDH (06/24/2023) ???LDH - 312 units/L Peripheral Blood Smear Review (06/24/2023) ???Peripheral Blood Smear Review Interp. - Reviewed by pathologist. Reticulocyte Ct (06/24/2023) ???Retic Count - 2.1 %???Retic Count Corrected - 1.0 %???Retic Production Index - 0.5 % Troponin T, High Sensitivity (06/22/2023) ???High Sensitivity Troponin (HSTnT) - 52 ng/L Type and Screen (06/24/2023) ???Blood Type - A Negative???Antibody Screen - Negative VBG (06/22/2023) ???Specimen Type - Blood Gas - VENOUS???pH, Venous - 7.34???pCO2, Venous - 66 mm Hg???pO2, Venous -46 mm Hg???Bicarbonate, Estimated(Venous) - 34 mmol/L Allergies (NKA means No Known Allergies) [...] Metabolic alkalosis?? Multiple fractures of ribs?? Old NE (myocardial infarction) X 3?? old Rib fractures, right 3-8?? Pulmonary cachexia due to COPD?? PVD (peripheral vascular disease)?? Smoking greater than 40 pack years?? Tobacco dependence?? Underweight?? Education Materials Below is the list of Educational Leaflet Providered with your Discharge Instructions. Understanding a Humerus Fracture?? Valuables and Belongings I fully understand and agree that [facility] accepts no responsibility for all my [...] patient Date for Pt to Sign Valuables/Belongings: 06/30/23 07:58:00 ?? Other Discharge Information ?? Wound Assessment?? Wound Assessment?? Wound Location I: Shoulder, right Wound Type I: Other: septic arthiritis? Wound I, Present on Admission: Yes ?? Case Management Discharge Plan?? Discharge Plan?? Discharge Level of Care at Discharge: residential facility Discharge Transportation Arranged: [facility] [address] [facility] [phone] Mode of Transportation Arranged: Ambulance Discharge Nursing Homes/Rehab Facilities: [facility] ?? Pulmonary Rehab Status?? Pulmonary Rehab Discharge [...] are strongly encouraged to quit. Please call [facility] [employer] at [phone] or [phone] ([phone]) or log in to [email or web address] for referrals to smoking cessation programs. ?? 611 Suicide & Crisis Lifeline is available 20/06 if you or someone you know needs to find a reason to keep living. By calling 381 you'll be connected to a skilled, trained counselor at a crisis center in your area. INPATIENT DISCHARGE INSTRUCTIONS SIGNATURE PAGE ANT VARMA Location:[facility] Registration Date and Time:06/23/2023 15:47 EDT Primary Care Physician: Not on Staff, PCP Attending Physician: Sukh AMAYA, Manpreet Elam, I KOJO ANT, have received the above patient education materials/instructions and have verbalized understanding. If ambulance or transport services are being used I further acknowledge being given a choice of service. ?? If you need to contact me, please call me at this number: . Patient/Facilities Painter Name: Patient/Facilities Painter Signature: Relationship to Patient: Witness Name/Signature: Date: * Manpreet Luz MD: PERFORM, SIGN, VERIFY Event Display: Patient Education Handout Authored Date: [id number] * Jahaira Godinez RN: PERFORM Event Display: Patient Education Leaflets Authored Date: Making a Plan to Treat Pain with Opioids ?? 409[address] Making a Plan to Treat Pain with Opioids You may be thinking about opioid medicine as part of your pain management. These are strong medicines. They work by blocking or controlling how your body feels pain. Opioids can work very well to treat pain. But they do have some risks and side effects. Creating your treatment plan Before prescribing opioids for your pain, your healthcare provider will work with you to make a treatment plan. This will help make sure you get the safest treatment for your pain that works well. Your treatment plan will start with talking about: ??? Your pain levels ??? Your health history ??? Your treatment goals If your healthcare provider prescribes opioids, will then make a plan with you for: ??? How long to use the medicines ??? When to stop them ??? How to stop them safely You???ll also need regular follow-up care while you???re taking the medicine. ?? Shared decision-making Shared decision-making means that you and your healthcare team work together to make decisions about your care. It's important to know all of your options. This will help you choose the care and treatment that's right for you. When considering opioid medicines, make sure to: ??? Tell your healthcare provider if you have a history of substance use with drugs or alcohol. ??? Talk about ways to helpmanage your pain that don???t involve opioids. ??? Understand the benefits, risks, and side effectsof opioid treatment. ??? Ask questions and discuss your concerns before and during your opioid treatment. ?? Your health and pain history Before prescribing opioid medicines, your healthcare provider will assess your pain and overall health. They will: ??? Give you a physical exam ??? Review your pain history and health history ??? Ask about your mental and emotional health ??? Ask if you have a personal or family history of substance abuse, such as drugs and alcohol Be open and honest with your healthcare provider. This will help ensure that a safe plan is made for you.?? Your healthcare provider will ask you questions about your pain. They??may ask you: ??? To describehow your pain affects your life. This can include how it affects your relationships, work, and sleep. ??? How long you've been having pain, how severe it is, and if it's getting better or worse ??? What you've done to treat your pain and what did and didn???t help. This includes any alternative healing practices you've tried. ??? What medicines you take or have taken for pain. This includes all prescription and vcbb-hye-kmybuel medicines, herbal remedies, supplements, and illegal drugs. ??? To keep a diary to track your pain before starting any opioid medicines ?? Tests and screenings Before opioid treatment, you may need tests and screenings. Some of these may need to be repeated during the course of your treatment. This depends on your risk for side effects.??Tests and screenings may include: ??? Urine or blood tests to screen for drugs ??? Blood tests, including kidney and liver function tests ??? Chest X-ray ??? Electrocardiogram (ECG) ??? Testing for hepatitis C, HIV, andtuberculosis (TB) ?? Setting treatment goals You and your healthcare provider will talk about reasonable goals for your pain. Opioid medicines can help reduce your pain. But they often can't provide full relief. When you have pain, the main goal of treatment is to relieve pain to a level that is OK for you. This should help to improve your function in daily life. Your daily function can improve even when you still have some pain. The benefits of long-term use of opioids for pain are unclear. It???s best to only use opioids if they continue to help pain and function without raising risks to your health. ?? Regular follow-up visits You???ll need to see your healthcare provider for regular follow-up visits if you take opioids. It's very important to keep these visits as scheduled. They help you and your healthcare provider trackhow well treatment meets your goals. They help track and manage side effects. This helps ensure themedicines work well for you and are still safe for you. ?? Stopping opioid medicine safely To stop opioid medicine safely, you will need help from your healthcare provider. This will help tomanage your withdrawal symptoms.??You and your healthcare provider will discuss a plan for when andhow to stop opioid treatment. In most cases, the amount of medicine you take will be cut down. You will be weaned off the medicine slowly. ?? Last Reviewed Date: 2022 ?? [employer]. All rights reserved. This information is not intended as a substitute for professional medical care. Always follow your healthcare professional's instructions. ?? * Herbert SHANNON, Jahaira Woods: PERFORM Event Display: Patient Education Leaflets Authored Date: [id number] Hydromorphone Oral Tablet ?? 54130-777 Hydromorphone Oral Tablet Brands: Dilaudid Uses For pain. ?? Instructions This medicine may be taken with or without food. Store at room temperature away from heat, light, and moisture. Do not keep in the bathroom. Please ask your doctor, nurse, or pharmacist how to discard unused medicines safely. To reduce constipation, eat high fiber foods, drink plenty of water and exercise. Drug interactions can change how medicines work or increase risk for side effects. Tell your healthcare providers about all medicines taken. Include prescription and odad-ffw-invbkwb medicines, vitamins, and herbal medicines. Speak with your doctor or pharmacist before starting or stopping any medicine. Tell your doctor if symptoms do not get better or if they get worse. ?? Cautions This medicine has an opioid. Opioids help many people but may cause addiction, especially if used for a long time. The addiction risk is higher if you have a substance use disorder (overuse of or addiction to drugs or alcohol). Ask your doctor about the benefits and risks. Ask your doctor or pharmacist if you should have naloxone on hand to treat opioid overdose. Teach your family or household members about the signs of an opioid overdose and how to treat it. If you stop this medicine suddenly after using it for a long time, you may have withdrawal. Your doctor may slowly lower your dose before stopping it. Tell your doctor right away if you have symptoms, such as unusual sweating, watering eyes, runny nose, chills, diarrhea, yawning, muscle aches, restlessness, anxiety, trouble sleeping, or thoughts of suicide. Tell your doctor and pharmacist if you ever had an allergic reaction to a medicine. Do not use the medication any more than instructed. If possible, avoid using with alcohol, marijuana, or other medicines that can cause dizziness or drowsiness. These include allergy/cold products, muscle relaxers, sleep aids, and pain relievers. Your ability to stay alert or to react quickly may be impaired by this medicine. Do not drive or operate machinery until you know how this medicine will affect you. This medicine passes into breast milk. Ask your doctor before . This medicine can hurt a new baby in the womb. If you become while on this medicine, tell your doctor immediately. Your doctor may switch you to a different medicine. This medicine should be used with caution in patients with breathing difficulties. Call your doctor right away if you notice slow or shallow breathing. Do not share this medicine with anyone who has not been prescribed this medicine. Some patients have serious side effects from this medicine. Ask your pharmacist to show you the information from the Food and Drug Administration (FDA) and discuss it with you. ?? Side Effects The following is a list of some common side effects from this medicine. Please speak with your doctor about what you should do if you experience these or other side effects. ??? decreased appetite ??? constipation ??? dizziness or drowsiness ??? dry mouth ??? feeling of heat or flushing ??? lightheadedness ??? nausea and vomiting ??? stomach upset or abdominal pain If you have any of the following side effects, you may be getting too much medicine. Please contactyour doctor to let them know about these side effects. ??? changes in memory, mood, or thinking ??? fainting Call your doctor or get medical help right away if you notice any of these more serious side effects: ??? decreased awareness or responsiveness ??? breathing interruption during sleep ??? shallow, irregular breathing ??? confusion ??? hallucinations (unusual thoughts, seeing or hearing things that are not real) ??? fast, irregular, or slow heartbeat ??? seizures ??? severe stomach or bowel pain ???unusual or unexplained tiredness or weakness ??? difficulty or discomfort urinating ??? weight loss A few people may have an allergic reaction to this medicine. Symptoms can include difficulty breathing, skin rash, itching, swelling, or severe dizziness. If you notice any of these symptoms, seek medical help quickly. ?? Extra Please speak with your doctor, nurse, or pharmacist if you have any questions about this medicine. ?? [email or web address] IMPORTANT NOTE: This document tells you briefly how to take your medicine, but it does not tell youall there is to know about it. Your doctor or pharmacist may give you other documents about your medicine. Please talk to them if you have any questions. Always follow their advice. There is a more complete description of this medicine available in [place]. Scan this code on your smartphone or tablet or use the web address below. You can also ask your pharmacist for a printout. If you have any questions, please ask your pharmacist. The display and use of this drug information is subject to Terms of Use. Copyright(c) 2022 [employer]. ?? [employer]. All rights reserved. This information is not intended as a substitute for professional medical care. Always follow your healthcare professional's instructions. ?? * Sukh AMAYA, Manpreet Elam: PERFORM Event Display: Patient Education Leaflets Authored Date: [id number] Understanding a Humerus Fracture ?? 19342 Understanding a Humerus Fracture ?? When you have a humerus fracture, it means that your upper arm bone is broken. This type of fracture most often occurs along the middle of the bone or at the end of the bone near the shoulder. It happens most often in elderly adults. Less often, it occurs at the end of the bone near the elbow. Thismainly happens in kids or young adults. The bone may be cracked, or it may be broken into 2 or more pieces. The pieces of bone may be linedup or they may have moved out of place. Sometimes, the bone may break through the skin. Nearby nerves, tissues, and joints also may be damaged. Depending on the severity of the fracture, healing may take several months or longer. What causes a humerus fracture? A humerus fracture is most often the result of trauma. This may be from a fall, blow, accident, or sports injury. ?? Symptoms of a humerus fracture Symptoms can include pain, swelling, and bruising. If the bone breaks through the skin, bleeding can occur at the site. It may be hard to move and use the shoulder, arm, or elbow as you would normally. ?? Treating a humerus fracture Treatment depends on where the bone is broken and how serious the break is. If needed, the bone is put back into place. This may be done with or without surgery. If surgery is needed, the surgeon mayuse devices, such as pins, plates, or screws to hold the bone together. You will then wear a sling,splint, brace, or cast to keep the bone in place and protect it from injury during healing. Other treatments may be also used to help reduce symptoms or regain function. These include: ??? Cold packs. Putting an ice pack on the injured area may help reduce swelling and pain. ??? Pain medicines. Taking prescription or pqxc-yte-qkydpjr pain medicines may help reduce pain and swelling. ??? Exercises. Doing certain exercises at home or with a physical therapist can help improve strength, flexibility, and range of motion in the shoulder, arm, or elbow. ?? Possible complications of a humerus fracture These can include: ??? Poor healing of the bone ??? Weakness, stiffness, or loss of range of motionin the shoulder, arm, or elbow ??? Osteoarthritis in the shoulder or elbow ?? When to call your healthcare provider Call your healthcare provider right away if any of the following occur: ??? Fever of 100.4??F (38??C) or higher, or as directed ??? Chills ??? Symptoms that don???t get better with treatment, or get worse ??? Numbness, tingling, coldness, or swelling in your arm, hand, or fingers ??? Fingernails that turn blue or pham in color ??? A sling, splint, or cast that is damaged or feels too tight or loose ??? New symptoms ?? Last Reviewed Date: 2022 ?? 1714-6126 [employer]. All rights reserved. This information is not intended as a substitute for professional medical care. Always follow your healthcare professional's instructions. ?? Patient Care team information Care Team Personnel Name: Glo Camarena RN Position: [facility] RN Member Role: Primary Care Nurse Name: Fatimah Bennett RN Position: [facility] RN Member Role: Primary Care Nurse Name: Mariely aHrdy RN Position: [facility] RN Member Role: Primary Care Nurse Name: Marleen Uriarte RN Position: [facility] RN Member Role: Primary Care Nurse Name: Sydney Zelaya Position: [facility] SN Support Member Role: Lifetime Consulting Physician Name: Judd Barahona RN Position: [facility] RN Member Role: Primary Care Nurse Name: Mag Harry RN Position: [facility] RN Member Role: Primary Care Nurse Name: An Blount RN Position: [facility] RN Supv Member Role: Primary Care Nurse Name: Guru Whitley RN Position: [facility] RN Member Role: Primary Care Nurse Name: Rebecca Whitley RN Position: [facility] RN Member Role: Primary Care Nurse Name: Marianna Ng RN Position: [facility] RN Member Role: Primary Care Nurse Name: Avani Odell RN Position: [facility] RN Member Role: Primary Care Nurse Name: Lisbet Hickman RN Position: [facility] RN Member Role: Primary Care Nurse Name: Ruben Bello RN Position: [facility] RN Member Role: Primary Care Nurse Name: Araceli Simon RN Position: [facility] RN Member Role: Primary Care Nurse Name: Judi Streeter RN Position: [facility] RN Member Role: Primary Care Nurse Name: Moni Dugan RN Position: [facility] RN Member Role: Primary Care Nurse Name: Misty Nguyen RN Position: [facility] RN Member Role: Primary Care Nurse Name: Hetal Archer LPN Position: [facility] RN Member Role: Primary Care Nurse Name: Joyce Cobb Position: [facility] RN Member Role: Primary Care Nurse Name: Sarwat Aj RN Position: [facility] RN Member Role: Primary Care Nurse Name: César Patel RN Position: [facility] RN [...] Care Nurse Name: Judith Rojas LPN Position: [facility] RN Member Role: Primary Care Nurse Name: Sydney Raza RN Position: [facility] RN [...] Member Role: Primary Care Nurse Name: Uyen Micthell RN Position: [facility] RN Member Role: Primary Care Nurse Name: Nasra Smith NP Position: Reference Physician Member Role: Primary Care Nurse Address: Address: [address] [place] [address] Name: Silas Knox RN Position: [facility] RN Member Role: Primary Care Nurse Name: Elham Lee RN Position: [facility] AMB Nurse Member Role: Primary Care Nurse Name: Dariana Mariee RN Position: [facility] RN Member Role: Primary Care Nurse Name: Ana María Cat RN Position: [facility] RN Member Role: Primary Care Nurse Name: Janet Pacheco RN Position: [facility] RN [...] Care Nurse Name: Judi Krueger RN Position: [facility] RN Member Role: Primary Care Nurse Name: Magdi Patiño RN Position: [facility] RN Member Role: Primary Care Nurse Name: Kasia Lund RN Position: [facility] RN Member Role: Primary Care Nurse Name: Rachna Serrano RN Position: [facility] RN Member Role: Primary Care Nurse Name: Naveen Villalobos RN Position: [facility] RN Member Role: Primary Care Nurse Name: Not on Staff, PCP Position: [facility] Physician (General Medicine) Member Role: PCP Name: Radha Masterson RN Position: [facility] RN Member Role: Primary Care Nurse Name: Landy Villarreal RN Position: [facility] RN Member Role: Primary Care Nurse Name: Adria Bell RN Position: [facility] RN [...] Care Nurse Name: Cristel Moreno RN Position: [facility] RN Member Role: Primary Care Nurse Name: Rosa Elena De León RN Position: [facility] [employer] Member Role: Primary Care Nurse Name: Nell Lagos RN Position: [facility] RN Member Role: Primary Care Nurse Name: Rita Rodriguez RN Position: [facility] RN Member Role: Primary Care Nurse Name: Judi Hamilton RN Position: [facility] RN [...] Care Nurse Name: Gemma Chavira RN Position: [facility] RN [...] Care Nurse Name: Vidhi Wilkins RN Position: [facility] RN Member Role: Primary Care Nurse Name: Uriel Dumont Position: [facility] RN Member Role: Primary Care Nurse Name: Selene Vazquez RN Position: [facility] RN Member Role: Primary Care Nurse Name: César Gerber RN Position: [facility] RN [...] Care Nurse Name: Hipolito Giles RN Position: [facility] RN Member Role: Primary Care Nurse Name: Rose Kyle RN Position: [facility] [employer] Member Role: Primary Care Nurse Name: Nida Gonsalves Position: [facility] RN Member Role: Primary Care Nurse Name: Aimee Salamanca RN Position: [facility] RN Member Role: Primary Care Nurse Name: Jacobo Caceres Position: [facility] RN Member Role: Primary Care Nurse Name: Savanna PINK Attending Position: [facility] ED Medicine MD Name: Ashlee Harrington RN Position: [facility] ED RN W/OE and Tasks Member Role: Patient Care Provider Name: Felicity Montes MD Position: [facility] ED Medicine MD Member Role: ED Attending Physician Address: Address: [address] [place] [address]- Name: Sven Joseph Position: [facility] ED OA Charge Member Role: ED Associate Name: Tayler Giles Position: [facility] ED TA [facility] Member Role: Catalyst Impregnator Name: Azra Hair Position: [facility] Associate Professional Member Role: ED Physician Stage[employer] Professor Address: Address: [address] [place] [address]- Care Team Related Persons Name: NORIS STEVENSON Address: home [address] [place] [address] Name: MELINA VARMA Address: home [place] Name: GARRY VARMA Address: home [address] [place] [address]
--- OUTSIDE RECORDS SUMMARY | 2023-08-15 20:33 | XMS_ITS | Continuity of Care Document ---
Author Name Unknown Organization [facility] ter Address [address] [place] [id number] Care Team Providers Care Commissions Manager Name Role Phone Jose LEE MD, Jorge Tsang Primary Care Physician Encounter [place] Date(s): 11/05/22 - 11/07/[address] [id number] Encounter Diagnosis COVID-19(Final) - 11/05/22 Discharge Disposition: A-D/C Home Attending Physician: Dinah Ibarra MD Admitting Physician: Ruben Castro MD Referring Physician: Not on Staff, Referring [...] influenza virus vaccine, inactivated 1 10/14/06 Gi orx pneumococcal 23-valent vaccine 08/19/19 Recorded pneumococcal 23-valent [...] 11/14/22 13:01:00 EST, 11/07/22 13:01:00 EST, Tablet, [facility] 3, Partial fill upon patient [...] PRN constipation Start Date: 04/27/22 Status: Ordered doxycycline monohydrate 100 mg oral tablet 1 tablet = 100 mg, By Mouth, 2 times a day, for 10 days, # 20 tablet, 0 Refills, Acute 11/11/22 15:41:00 EST, 11/01/22 15:41:00 EST, Tablet, [facility]/pharm[facility] #[id number], Partial fill upon patient request if the prescription is for a schedule II opioid drug., 1... Start Date: 11/01/22 Stop Date: 11/11/22 Status: Ordered duloxetine 60 mg oral enteric [...] oral capsule 100 mg, Capsule, By Mouth, 11/07/22 9:00:00 EST Start Date: 11/07/22 Stop Date: 11/07/22 Status: Completed gabapentin 100 mg oral capsule [...] Date: 10/08/22 Stop Date: 10/11/22 Status: Ordered HYDROmorphone 2 mg oral tablet 2 mg, Tablet, By Mouth, 2 times a day, PRN for Pain , Severe, Routine, 11/06/22 1:43:00 EST Start Date: 11/06/22 Stop Date: 11/08/22 Status: Discontinued hydrOXYzine hydrochloride 10 mg oral [...] release 25 mg, XL Tablet, By Mouth, 11/07/22 9:00:00 EST Start Date: 11/07/22 Stop Date: 11/07/22 Status: Completed Metoprolol Succinate ER 25 mg [...] Exam Date Time Procedure Performing Provider Status 11/05/22 7:58 PM Chest 2 Views Frontal and Lat Joya Gautamy; Auth (Verified) Notes: (Chest 2 Views Frontal and Lat) Reason For Exam: Chest Pain;Other: RESULT: Chest 2 Views Frontal and Lat Chest 2 Views Frontal and Lat Hx of Present Illness: Covid positive, COPD, worsening SOB. Productive cough, chills.; Reason: Other:; Chest Pain; Clinical Question(s): Other:; Order Comment: pt unable to walk, came in by ambulance, needs stretcher, on oxygen, covid + 1840hrs [place] COMPARISON: 09/22/2022 FINDINGS: LINES AND TUBES: None. LUNGS AND PLEURA: Large lung volumes. Otherwise, lungs are clear. No pleural effusion. No pneumothorax. HEART, MEDIASTINUM AND MAMADOU: Heart is normal in size. Coronary stents noted. Normal mediastinal and hilar contour. BONES AND SOFT TISSUES: No acute abnormality. Right rib fixation hardware is unchanged. Displaced superior screw projectingover the right sixth rib, unchanged. Right old distal clavicular fracture. IMPRESSION: COPD. No acute radiographic process. WSN: [id number] Ordering Physician: Kristyn Pinead Dictated By: Zack Raza MD Dictated Date/Time: 11/05/22 8:05 pm Reviewed By: Zack Raza MD Signed By: Zack Raza MD Signed Date/Time: 11/05/22 8:05 pm Transcribed By: BERENICE Transcribed Date/Time: 11/05/22 8:02 pm Vital Signs Most recent to oldest [Reference Range]: 1 2 3 Height 183 cm (11/07/22 5:09 AM) Weight 58.8 kg (11/07/22 5:09 AM) 58.8 kg (11/07/22 4:33 AM) Oxygen Saturation [94-100 %] 100 % (11/07/22 11:00 AM) 100 % (11/07/22 8:00 AM) 100 % (11/07/22 4:31 AM) Pulse Rate [55-90 bpm] 58 bpm (11/07/22 11:00 AM) 60 bpm (11/07/22 9:17 AM) 55 bpm (11/07/22 8:00 AM) Body Mass Index [18.5-24.99 kg/m2] 17.56 kg/m2 *L* (11/07/22 5:09 AM) Blood Pressure [90-138/55-84 mm Hg] 108/62mm Hg (11/07/22 11:00 AM) 130/71mm Hg (11/07/22 9:17 AM) 130/71mm Hg (11/07/22 8:00 AM) Respiratory Rate [16-30 br/min] 18 br/min (11/07/22 1:31 PM) 18 br/min (11/07/22 11:00 AM) 18 br/min (11/07/22 10:20 AM) Temperature [96.8-100.4 DegF] 97.2 DegF (11/07/22 11:00 AM) 97.0 DegF (11/07/22 8:00 AM) 98 DegF (11/07/22 5:09 AM) Liters per Minute 3 L/min (11/07/22 11:00 AM) 3 L/min (11/07/22 4:31 AM) 4 L/min (11/07/22 1:28 AM) Mode of Delivery (Oxygen) Nasal cannula (11/07/22 11:00 AM) Nasal cannula (11/07/22 8:00 AM) Nasal cannula (11/07/22 4:31 AM) Blood pressure sites Arm, right (11/07/22 11:00 AM) Arm, right (11/07/22 8:00 AM) Arm, left (11/07/22 5:09 AM) Temperature Route Temporal (11/07/22 11:00 AM) Temporal (11/07/22 8:00 AM) Temporal (11/07/22 5:09 AM) Dry Weight 58.8 kg (11/07/22 5:09 AM) Weight Obtained Via Bed scale (11/07/22 4:33 AM) Social History Social History Type Response Tobacco Use: 4 or less cigar ettes(less than 1/4 pack)/day in last 30 days. Sex Admission evaluation note * Neelam Hernandez MDha: PERFORM, MODIFY, MODIFY, MODIFY, MODIFY, MODIFY, MODIFY Event Display: Admission Note Authored Date: [id number] Patient: ??ANT VARMA ? Age:??67 Years?Sex:??Male?:??1955?? Chief Complaint/Reason for Consultation called ems for shortness of breath, covid positive, baseline continuous oxygen, recently dischargedfrom [facility] . generalized weakness. cough. 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 ?? patient is coming in today with complains of 2 days of fevers, chills, worsening shortness of breath. ??Patient arrived he is chronically on 2 to 3 L of oxygen at home however has been needing 4 L continuously to maintain his oxygen saturation. ??He does have a longstanding history of COPD however says this does not feel like a COPD exacerbation. ??He denies any chest pain, palpitations. ??Deniesany sick contacts, sore throat, vision changes. ??Also denies any GI symptoms including abdominal pain, nausea, vomiting, diarrhea ?? On presentation the ED he is noted to be afebrile, saturating appropriately on 4 L nasal cannula. ??Lab work-up with normal white count, stable hemoglobin from prior, largely normal-appearing electrolytes, kidney function at baseline, mild lipase elevation along with alk phos elevation otherwisenormal LFTs. ??High sensitive troponin of 56 however patient has no active chest pain complaints. ?? He did test positive for COVID in the ED. ??Given new oxygen requirement he was started on steroidsin the ED. ?? On my examination patient is??laying down comfortably.?? Endorsing??productive cough and??mild shortness of breath. ??Otherwise no chest pain Review of Systems Full review of systems conducted, negative unless mentioned above Objective Vital Signs?? Temperature: 99 DegF (11/05/22 21:57:00) Temperature Route: Oral (11/05/22 21:57:00) Pulse Rate: 77 bpm (11/05/22 21:57:00) Respiratory Rate: 16 br/min (11/05/22 21:57:00) Vented: No (11/05/22 21:57:00) Systolic Blood Pressure: 118 mm Hg (11/05/22 21:57:00) Diastolic Blood Pressure: 62 mm Hg (11/05/22 21:57:00) Blood pressure sites: Arm, right (11/05/22 21:57:00) Mean Arterial Pressure: 72 mm Hg (11/05/22 17:24:00) Pulse Pressure: 56 mm Hg (11/05/22 21:57:00) Oxygen Saturation: 100 % (11/05/22 21:57:00) Liters per Minute: 3 L/min (11/05/22 21:57:00) Mode of Delivery (Oxygen): Nasal cannula (11/05/22 21:57:00) ? Physical Exam ?? General Appearance: No acute distress Eyes: SULY. No scleral icterus. ENT:?? MM moist. Cardiovascular: RRR S1 and S2 heard with no M/R/G. Respiratory:?? Breath sounds clear to auscultation bilaterally. GI: Soft. Nontender and nondistended. Normal bowel sounds present. no guarding, rigidity MSK:?? No edema or erythema in the lower extremities. No wounds seen on the feet. Peripheral sensation intact. Skin: No rashes seen on chest, abdomen. Neuro:?? No slurred speech. Moving upper and lower extremities independently Psych: oriented x3. Appropriate and pleasant. Lines: Peripheral IV in place. 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 Fever and chills.?? Found to have COVID on presentation ?? COVID-positive Acute on chronic hypoxic respiratory failure History of COPD Patient chronically on??2 to 3 L of home O2, currently requiring 4 L Presenting symptoms are shortness of breath, fever, chills Lab work-up: No leukocytosis,??normal electrolytes. Imaging: Chest x-ray without any focal consolidation ?? Plan Maintain oxygen saturation between 88 to 92% given COPD Continue dexamethasone 6 mg daily Monitor for any evidence of??superimposed bacterial infection Monitor WBC count daily ? Recent shoulder MRSA septic arthritis Followed up with ID outpatient, can pleated his vancomycin on 10/31 Looking over the note appears that he was then put on doxycycline daily and starting on 11/01??to becontinued for 10 days Plan Continue??home doxycycline.?Was started outpatient on 11/01 was to complete 10 days. Continue follow-up with ID outpatient ? History of recurrent DVTs, currently on warfarin INR 1.2 currently ?? Plan Resume home warfarin 5 mg daily, Repeat INR daily ?? Chronic pain Continue home gabapentin, hydromorphone Do not give IV Dilaudid ? History of coronary artery disease status post stent PVD Hypertension Continue home aspirin, statin, Imdur, metoprolol ?? Anxiety, mood disorder Continue home mirtazapine, melatonin, hydroxyzine ?? History of IBS Dicyclomine as needed ?? Quality measures Code: Full Diet: Cardiac DVT prophylaxis: On home warfarin, ?? Gabbie Hernandez [id number] ?? Patient seen on 11/06. ?? Histories Allergies Allergies ?(Active and Proposed [...] Metabolic alkalosis Multiple fractures of ribs Old [place] (myocardial infarction) X 3 PVD (peripheral vascular [...] sodium 100 mg oral capsule)?1?capsule?100?Milligram?By Mouth?Daily?as needed?constipation Doxycycline (doxycycline monohydrate 100 mg oral tablet)?1?tab(s)?100?Milligram?By Mouth?2 times a day?for 10?Days Duloxetine (duloxetine 60 mg oral enteric coated [...] Recent Labs BLOOD COUNT & DIFF WBC 7.1 k/mm3 ()?? 11/05/2022 22:41 RBC 3.49 m/mm3 (Low)?? 11/05/2022 22:41 Hgb 9.2 Gm/dL (Low)?? 11/05/2022 22:41 Hct 31.8 % (Low)?? 11/05/2022 22:41 MCV 91.1 femtoliters ()?? 11/05/2022 22:41 MCH 26.4 pg (Low)?? 11/05/2022 22:41 MCHC 28.9 g/dL (Low)?? 11/05/2022 22:41 Platelet Count 357 k/mm3 ()?? 11/05/2022 22:41 RDW-SD 61.5 femtoliters (High)?? 11/05/2022 22:41 MPV 8.7 femtoliters (Low)?? 11/05/2022 22:41 Nucleated RBC (Automated) 0.0 #/100 WBC'S ()?? 11/05/2022 22:41 Abs. NRBC 0.0 k/mm3 ()?? 11/05/2022 22:41 Abs. Neut 4.6 k/mm3 ()?? 11/05/2022 22:41 Abs. Lymph 1.0 k/mm3 ()?? 11/05/2022 22:41 Abs. Hendricks 1.2 k/mm3 ()?? 11/05/2022 22:41 Abs. Eo 0.2 k/mm3 ()?? 11/05/2022 22:41 Abs. Baso 0.1 k/mm3 ()?? 11/05/2022 22:41 Neut % 65.1 % ()?? 11/05/2022 22:41 Lymph % 14.1 % (Low)?? 11/05/2022 22:41 Hendricks % 16.6 % (High)?? 11/05/2022 22:41 Eos % 2.7 % ()?? 11/05/2022 22:41 Baso % 0.8 % ()?? 11/05/2022 22:41 Imm Gran 0.7 % ()?? 11/05/2022 22:41 Abs. Imm Gran 0.1 k/mm3 ()?? 11/05/2022 22:41 ?? HEME OTHER Hold Blue Top SPECIMEN DISCARDED AFTER 4 HOURS. ()?? 11/05/2022 22:41 ?? VIROLOGY COVID-19 POC Result POSITIVE (Abnormal)?? 11/05/2022 17:15 ? EKG study * Event Display: ECG 12-Lead Authored Date: Please click on pdf link to open report * Event Display: ECG 12-Lead Authored Date: Ventricular Rate: 72 BPM Atrial Rate: 72 BPM P-R Interval: 152 ms QRS Duration: 92 ms Q-T Interval: 380 ms QTC Calculation(Bazett): 416 ms P Strong: 80 degrees R Strong: -35 degrees T Strong: 69 degrees Normal sinus rhythm Left axis deviation Abnormal ECG When compared with ECG of 19-SEP-2022 12:21, Premature atrial complexes are no longer Present Confirmed by NIKITA AMAYA, [facility] ([id number]) on 11/06/2022 1:15:53 PM [place]: NIKITA AMAYA,[facility] Progress note * Jurgen Hyde RN: PERFORM, SIGN, VERIFY, MODIFY, SIGN Event Display: [facility] Authored Date: Patient: ANT VARMA Age: 67 years Sex: Male : 1955 Associated Diagnoses: None Author: Jurgen Hyde RN Findings Problem Related to Alteration in Neurological : Alteration in Neurological Function/new 11/07/2022 8:00 EST Alteration in Neuro status Related to Other: back pain Goals & Outcomes, Neurological Pt will be Neurologically stable Interventions, Neurological Assess/monitor neurologic status, Assess/monitor VS per unit standards & prn, Call/Report variances in assessments to provider, Monitor for headaches, nausea, vomiting, Monitor speech fluency, aphasia, word finding difficulty, Physical assessment per unit standards BH Goals/Interventions, Neurological Yes Neurological, Problem Start 11/07/2022 12:32 Reviewed plan with, Neurological Patient Patient Progression, Neurological Pt progressing according to plan . Nursing Data Neurological Data. : Neurological Data. 11/07/2022 8:00 EST Neurological Symptoms Weakness or loss of muscle strength Level of Consciousness Full Consciousness Orientated to person, place, time Person, Place, Time, Event Facial Symmetry Intact Characteristics of Speech Clear and normal Pupil description, left Regular Pupil description, right Regular Pupil reaction, left Brisk Pupil reaction, right Brisk Pupil Size, Left 3 mm Pupil Size, Right 3 mm Strength LUE 5-Active movement against gravity & full resistance Strength RUE 1-Trace movement Strength LLE 5-Active movement against gravity & full resistance Strength RLE 5-Active movement against gravity & full resistance Tone LUE Normal Tone RUE Normal Tone LLE Normal Tone RLE Normal Movement LUE Spontaneous Movement RUE Spontaneous Movement LLE Spontaneous Movement RLE Spontaneous Response Eye Opening Spontaneously Motor Response-Adult Obeys commands Verbal Response-Adult Oriented and converses Berne Coma Score 15 Neuro WNL except Eyes and Movements Conjugate gaze: Move in same direction at same speed Memory Intact Swallow - Neuro Normal . Evaluation AO x 4, follows commands, speech is clear, +PERRL EOM and visual tapia intact. VILLARREAL strength 5/5, Lungs CTA dim at baseson 3L at baseline per pt, productive cough on enhanced isolation precautions for covid. +BS x 4. pt denies , N/V, or vision problems. c/o 10/10 pian on the lower back radiating tobilateral lower legs and lower abd.Scattered scabs and abrasions noted on skin, mostly R forearm. bed locked, in lowest position, non slip footwear on, bed alarm on, call giraldo within reach, safety maintained. RN went over d/c instructions with pt both verbally and gave pt a written copy. Pt stated they understood and had on questions. PIV removed, tip intact. No s/s of infection. prescriptions picked up in [facility] on the way out and Pt brought down by staff by w/c where family was waiting. . * Shauna RN, Tabatha Hickey: PERFORM, SIGN, VERIFY Event Display: Progress Note Hospital Authored Date: [id number] Patient: ANT VARMA Age: 67 years Sex: Male : 1955 Associated Diagnoses: None Author: Shauna SHANNON, Tabatha Hickey Findings Evaluation The patient is aaox4, vss, c/o 09/06 pian on the lower back radiating to bilateral lower legs and lower abd.Scattered scabs and abrasions noted on skin (see doc) Passed bedside swallow exam and continues on 3LNC.. * Dinah Ibarra MD: PERFORM Event Display: Progress Note Hospital Authored Date: Patient: ??ANT VARMA ? Age:??67 Years?Sex:??Male?:??1955?? Subjective Patient was seen and examined in AM. Informed feeling better.?? Now on oxygen??3 L. ??Was asking for??more??Dilaudid Discussed with pharmacist. ??Does not qualify for remdesivir Review of Systems As above Objective Vital Signs?? Temperature: 98.8 DegF (11/06/22 07:00:00) Temperature Route: Oral (11/06/22 07:00:00) Pulse Rate: 78 bpm (11/06/22 12:55:00) Respiratory Rate: 19 br/min (11/06/22 12:55:00) Vented: No (11/06/22 06:57:00) Systolic Blood Pressure: 120 mm Hg (11/06/22 12:55:00) Diastolic Blood Pressure: 72 mm Hg (11/06/22 12:55:00) Blood pressure sites: Arm, right (11/06/22 12:55:00) Mean Arterial Pressure: 88 mm Hg (11/06/22 12:55:00) Pulse Pressure: 48 mm Hg (11/06/22 12:55:00) Oxygen Saturation: 98 % (11/06/22 12:55:00) Liters per Minute: 3 L/min (11/06/22 12:55:00) Mode of Delivery (Oxygen): Nasal cannula (11/06/22 12:55:00) Early Warning Score: 0 (11/06/22 12:56:13) ? Intake/Output? No Data Available ? Physical Exam General Appearance: No acute distress. Cardiovascular: RRR S1 and S2 heard with no M/R/G. Respiratory:?? Breath sounds clear to auscultation bilaterally. GI: Soft. Nontender and nondistended. Normal bowel sounds present. no guarding, rigidity Neuro:?? No slurred speech. Moving upper and lower extremities independently Psych: oriented x3. Appropriate and pleasant. Results Recent Labs BLOOD COUNT & DIFF WBC 5.5 k/mm3 ()?? 11/06/2022 04:10 RBC 3.06 m/mm3 (Low)?? 11/06/2022 04:10 Hgb 8.2 Gm/dL (Low)?? 11/06/2022 04:10 Hct 27.1 % (Low)?? 11/06/2022 04:10 MCV 88.6 femtoliters ()?? 11/06/2022 04:10 MCH 26.8 pg (Low)?? 11/06/2022 04:10 MCHC 30.3 g/dL (Low)?? 11/06/2022 04:10 Platelet Count 351 k/mm3 ()?? 11/06/2022 04:10 RDW-SD 59.9 femtoliters (High)?? 11/06/2022 04:10 MPV 9.3 femtoliters (Low)?? 11/06/2022 04:10 Nucleated RBC (Automated) 0.0 #/100 WBC'S ()?? 11/06/2022 04:10 Abs. NRBC 0.0 k/mm3 ()?? 11/06/2022 04:10 Abs. Neut 4.6 k/mm3 ()?? 11/05/2022 22:41 Abs. Lymph 1.0 k/mm3 ()?? 11/05/2022 22:41 Abs. Hendricks 1.2 k/mm3 ()?? 11/05/2022 22:41 Abs. Eo 0.2 k/mm3 ()?? 11/05/2022 22:41 Abs. Baso 0.1 k/mm3 ()?? 11/05/2022 22:41 Neut % 65.1 % ()?? 11/05/2022 22:41 Lymph % 14.1 % (Low)?? 11/05/2022 22:41 Hendricks % 16.6 % (High)?? 11/05/2022 22:41 Eos % 2.7 % ()?? 11/05/2022 22:41 Baso % 0.8 % ()?? 11/05/2022 22:41 Imm Gran 0.7 % ()?? 11/05/2022 22:41 Abs. Imm Gran 0.1 k/mm3 ()?? 11/05/2022 22:41 ?? CARDIAC Nt-Probnp 592 pg/mL (High)?? 11/05/2022 22:41 High Sensitivity Troponin (HSTnT) 54 ng/L (Critical)?? 11/06/2022 01:00 ?? CHEM GENERAL Sodium 138 mmol/L ()?? 11/06/2022 04:10 Potassium 4.8 mmol/L ()?? 11/06/2022 04:10 Chloride 98 mmol/L ()?? 11/06/2022 04:10 Bicarbonate Level 30 mmol/L (High)?? 11/06/2022 04:10 Anion Gap 10 ()?? 11/06/2022 04:10 Glucose Level 126 mg/dL (High)?? 11/06/2022 04:10 BUN 22 mg/dL ()?? 11/06/2022 04:10 Creatinine-Blood 0.6 mg/dL (Low)?? 11/06/2022 04:10 Estimated GFR Creatinine 109 ML/MIN/1.73 M2 ()?? 11/06/2022 04:10 Calcium 9.4 mg/dL ()?? 11/06/2022 04:10 Protein, Total 6.8 Gm/dL ()?? 11/05/2022 22:41 Albumin 3.8 Gm/dL ()?? 11/05/2022 22:41 AG Ratio 1.3 ()?? 11/05/2022 22:41 Alkaline Phosphatase 221 units/L (High)?? 11/05/2022 22:41 Lipase 69 units/L (High)?? 11/05/2022 22:41 AST (SGOT) 18 units/L ()?? 11/05/2022 22:41 ALT (SGPT) 12 units/L ()?? 11/05/2022 22:41 Bilirubin, Total 0.2 mg/dL ()?? 11/05/2022 22:41 Lactate 1.0 mmol/L ()?? 11/05/2022 22:41 ?? COAG INR 1.2 (High)?? 11/06/2022 01:19 Protime (PT) 12.7 seconds (High)?? 11/06/2022 01:19 ?? HEME OTHER Hold Blue Top SPECIMEN DISCARDED AFTER 4 HOURS. ()?? 11/05/2022 22:41 ?? VIROLOGY COVID-19 POC Result POSITIVE (Abnormal)?? 11/05/2022 17:15 ? 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 Fever and chills.?? Found to have COVID on presentation ?? COVID-positive Acute on chronic hypoxic respiratory failure History of COPD Patient chronically on??2 to 3 L of home O2,requiring 4 L??on admission Presenting symptoms are shortness of breath, fever, chills Lab work-up: No leukocytosis,??normal electrolytes. Imaging: Chest x-ray without any focal consolidation ?? Plan Maintain oxygen saturation between 88 to 92% given COPD Continue dexamethasone 6 mg daily Monitor for any evidence of??superimposed bacterial infection Monitor WBC count daily Does not qualify for remdesivir ? Elevated troponin Patient denied??any chest pain.?? Could be due to??demand from hypoxia We will check tomorrow's??level ? Recent shoulder MRSA septic arthritis Followed up with ID outpatient, can pleated his vancomycin on 10/31 Looking over the note appears that he was then put on doxycycline daily and starting on 11/01??to becontinued for 10 days Plan Continue??home doxycycline.?Was started outpatient on 11/01 was to complete 10 days. Continue follow-up with ID outpatient ? History of recurrent DVTs, currently on warfarin INR 1.2 currently ?? Plan Resume home warfarin 5 mg daily, Repeat INR daily ?? Chronic pain Continue home gabapentin, hydromorphone Do not give IV Dilaudid ? History of coronary artery disease status post stent PVD Hypertension Continue home aspirin, statin, Imdur, metoprolol ?? Anxiety, mood disorder Continue home mirtazapine, melatonin, hydroxyzine ?? History of IBS Dicyclomine as needed ?? Quality measures Code: Full Diet: Cardiac DVT prophylaxis: On home warfarin, ?? If patient??continues to be stable,??likely discharge??tomorrow Note * Monse Cornell RN: PERFORM Event Display: Discharge/Transfer Note Hospital Authored Date: [id number] Nursing Discharge Note Entered On: 11/07/2022 14:29 EST Performed On: 11/07/2022 14:28 EST by Monse Cornell RN Nursing Discharge Note 2 Discharge Time : 11/07/2022 14:28 EST Discharge Level of Care at Discharge : Home/Shelter/Foster Care Patient Left Unit Via : Wheelchair Patient Accompanied Off Unit with : Responsible adult DC Instructions Provided & Signed by Pt : Yes Patient Understands D/C Instructions : Yes Patient Instructions Discharge Signed : Yes Discharge Comments : pts nurse removed Iv, no redness warmth noted, cannual intact, pt states understanding to all discharge instructions all questions and concerns addressed Did Pt have Specialty Bed or Wound Vac : No Monse Cornell RN - 11/07/2022 14:28 EST * Jurgen Hyde RN: PERFORM Event Display: Discharge/Transfer Note Hospital Authored Date: [id number] Nursing Discharge Note Entered On: 11/07/2022 16:36 EST Performed On: 11/07/2022 14:28 EST by Jurgen Hyde RN Nursing Discharge Note 2 Discharge Time : 11/07/2022 14:28 EST Discharge Level of Care at Discharge : Home/Shelter/Foster Care Patient Left Unit Via : Wheelchair Patient Accompanied Off Unit with : Responsible adult DC Instructions Provided & Signed by Pt : Yes Patient Understands D/C Instructions : Yes Patient Instructions Discharge Signed : Yes Did Pt have Specialty Bed or Wound Vac : No Jurgen Hyde RN - 11/07/2022 16:35 EST * Dinah Ibarra MD: MODIFY, PERFORM Event Display: Discharge/Transfer Note Hospital Authored Date: Patient: ??ANT VARMA ? Age:??67 Years?Sex:??Male?:??1955?? Patient Information Discharge Location: [facility] Primary Care Physician: Jorge Garcia III, MD Admit Date/Time: 11/05/22 23:04 Discharge Disposition Discharge Disposition: Home: No Services Discharge Diagnosis COVID-19 (U07.1) Anxiety CAD - Coronary artery disease COPD [...] sodium 100 mg oral capsule)?1?capsule?100?Milligram?By Mouth?Daily?as needed?constipation Doxycycline (doxycycline monohydrate 100 mg oral tablet)?1?tab(s)?100?Milligram?By Mouth?2 times a day? Duloxetine (duloxetine 60 mg oral enteric coated [...] (warfarin 5 mg oral tablet)?1?tab(s)?5?Milligram?By Mouth?Daily ? Quality Measures Tobacco Use Treatment:? Allergies [...] EST ?? 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 Fever and chills.?? Found to have COVID on presentation ?? COVID-positive Acute on chronic hypoxic respiratory failure History of COPD Patient chronically on??2 to 3 L of home O2,requiring 4 L??on admission Presenting symptoms are shortness of breath, fever, chills Lab work-up: No leukocytosis,??normal electrolytes. Imaging: Chest x-ray without any focal consolidation ?? Plan Maintain oxygen saturation between 88 to 92% given COPD Continue dexamethasone 6 mg daily Monitor for any evidence of??superimposed bacterial infection Monitor WBC count daily Does not qualify for remdesivir ? Elevated troponin Patient denied??any chest pain.?? Could be due to??demand from hypoxia Troponin level??trended down ? Recent shoulder MRSA septic arthritis Followed up with ID outpatient, can pleated his vancomycin on 10/31 Looking over the note appears that he was then put on doxycycline daily and starting on 11/01??to becontinued for 10 days Plan Continue??home doxycycline.?Was started outpatient on 11/01 was to complete 10 days. Continue follow-up with ID outpatient ? History of recurrent DVTs, currently on warfarin INR 1.2 currently ?? Plan Resume home warfarin 5 mg daily, Repeat INR daily ?? Chronic pain Continue home gabapentin, hydromorphone Do not give IV Dilaudid ? History of coronary artery disease status post stent PVD Hypertension Continue home aspirin, statin, Imdur, metoprolol ?? Anxiety, mood disorder Continue home mirtazapine, melatonin, hydroxyzine ?? History of IBS Dicyclomine as needed Objective Assessment and Plan Discharge Planning:? Measurements?? Height: 183 cm (11/07/22) Weight: 58.8 kg (11/07/22) Dry Weight: 58.8 kg (11/07/22) Body Mass Index:??17.56 kg/m2??Low (11/07/22) ? Vital Signs?? Temperature: 97.2 DegF (11/07/22 11:00:00) Temperature Route: Temporal (11/07/22 11:00:00) Pulse Rate: 58 bpm (11/07/22 11:00:00) Respiratory Rate: 18 br/min (11/07/22 11:00:00) Systolic Blood Pressure: 108 mm Hg (11/07/22 11:00:00) Diastolic Blood Pressure: 62 mm Hg (11/07/22 11:00:00) Blood pressure sites: Arm, right (11/07/22 11:00:00) Mean Arterial Pressure: 99 mm Hg (11/07/22 05:09:00) Pulse Pressure: 61 mm Hg (11/07/22 05:09:00) Oxygen Saturation: 100 % (11/07/22 11:00:00) Liters per Minute: 3 L/min (11/07/22 11:00:00) Mode of Delivery (Oxygen): Nasal cannula (11/07/22 11:00:00) Early Warning Score: 2 (11/07/22 11:20:08) ? . Physical Exam General Appearance: No acute distress. Cardiovascular: RRR S1 and S2 heard with no M/R/G. Respiratory:?? Breath sounds clear to auscultation bilaterally. GI: Soft. Nontender and nondistended. Normal bowel sounds present. no guarding, rigidity Neuro:?? No slurred speech. Moving upper and lower extremities independently Psych: oriented x3. Appropriate and pleasant. Pending Results High??Sensitivity??Troponin T ordered on 11/07/2022 INR ordered on 11/06/2022 Urinalysis w/hold for Urine Culture ordered on 11/05/2022 Follow-Up Appointments Added Follow Up ?Time Frame ?Comments Jose LEE MD, Jorge Tsang Patient Instructions -??Please continue to follow-up with?PCP -Please maintain isolation for COVID 11/15/22 -Send dexamethasone??prescription with??Protonix,??as part of COVID treatment -If you feel any worsening chest pain, shortness of breath, cough please come back to ER -Your INR still??not therapeutic,??continue to follow-up with??PCP??to adjust Coumadin dose and check INR Post Discharge Care Discharge ?11/07/22 13:02:00 EST Home Health Face to Face ^HomeHealthFTF Results Discharge Labs BLOOD COUNT & DIFF WBC 5.8 k/mm3 ()?? 11/07/2022 09:54 RBC 3.04 m/mm3 (Low)?? 11/07/2022 09:54 Hgb 8.2 Gm/dL (Low)?? 11/07/2022 09:54 Hct 26.8 % (Low)?? 11/07/2022 09:54 MCV 88.2 femtoliters ()?? 11/07/2022 09:54 MCH 27.0 pg ()?? 11/07/2022 09:54 MCHC 30.6 g/dL (Low)?? 11/07/2022 09:54 Platelet Count 373 k/mm3 ()?? 11/07/2022 09:54 RDW-SD 58.6 femtoliters (High)?? 11/07/2022 09:54 MPV 9.1 femtoliters (Low)?? 11/07/2022 09:54 Nucleated RBC (Automated) 0.0 #/100 WBC'S ()?? 11/07/2022 09:54 Abs. NRBC 0.0 k/mm3 ()?? 11/07/2022 09:54 Abs. Neut 4.6 k/mm3 ()?? 11/05/2022 22:41 Abs. Lymph 1.0 k/mm3 ()?? 11/05/2022 22:41 Abs. Hendricks 1.2 k/mm3 ()?? 11/05/2022 22:41 Abs. Eo 0.2 k/mm3 ()?? 11/05/2022 22:41 Abs. Baso 0.1 k/mm3 ()?? 11/05/2022 22:41 Neut % 65.1 % ()?? 11/05/2022 22:41 Lymph % 14.1 % (Low)?? 11/05/2022 22:41 Hendricks % 16.6 % (High)?? 11/05/2022 22:41 Eos % 2.7 % ()?? 11/05/2022 22:41 Baso % 0.8 % ()?? 11/05/2022 22:41 Imm Gran 0.7 % ()?? 11/05/2022 22:41 Abs. Imm Gran 0.1 k/mm3 ()?? 11/05/2022 22:41 ?? CARDIAC Nt-Probnp 592 pg/mL (High)?? 11/05/2022 22:41 High Sensitivity Troponin (HSTnT) 37 ng/L (High)?? 11/07/2022 09:55 ?? CHEM GENERAL Sodium 140 mmol/L ()?? 11/07/2022 09:54 Potassium 4.5 mmol/L ()?? 11/07/2022 09:54 Chloride 100 mmol/L ()?? 11/07/2022 09:54 Bicarbonate Level 33 mmol/L (High)?? 11/07/2022 09:54 Anion Gap 7 ()?? 11/07/2022 09:54 Glucose Level 126 mg/dL (High)?? 11/06/2022 04:10 BUN 24 mg/dL (High)?? 11/07/2022 09:54 Creatinine-Blood 0.6 mg/dL (Low)?? 11/07/2022 09:54 Estimated GFR Creatinine 108 ML/MIN/1.73 M2 ()?? 11/07/2022 09:54 Calcium 9.4 mg/dL ()?? 11/06/2022 04:10 Protein, Total 6.8 Gm/dL ()?? 11/05/2022 22:41 Albumin 3.8 Gm/dL ()?? 11/05/2022 22:41 AG Ratio 1.3 ()?? 11/05/2022 22:41 Alkaline Phosphatase 221 units/L (High)?? 11/05/2022 22:41 Lipase 69 units/L (High)?? 11/05/2022 22:41 AST (SGOT) 18 units/L ()?? 11/05/2022 22:41 ALT (SGPT) 12 units/L ()?? 11/05/2022 22:41 Bilirubin, Total 0.2 mg/dL ()?? 11/05/2022 22:41 Lactate 1.0 mmol/L ()?? 11/05/2022 22:41 ? COAG INR 1.2 (High)?? 11/07/2022 09:54 Protime (PT) 12.6 seconds (High)?? 11/07/2022 09:54 ?? HEME OTHER Hold Blue Top SPECIMEN DISCARDED AFTER 4 HOURS. ()?? 11/05/2022 22:41 ? VIROLOGY COVID-19 POC Result POSITIVE (Abnormal)?? 11/05/2022 17:15 ? _40 minutes spent on discharge * Aneta SHANNON, Monse: PERFORM Event Display: Patient Education/Instruction Authored Date: [id number] Inpatient Adult Discharge Instructions [place] [id number] Name: ANT VARMA : 1955 Visit: 11/05/2022 23:04:00 Current Date: 11/07/2022 13:34 Account: [id number] Inpatient Adult Discharge Instructions We would like [...] and their families. Surveys are administered by [employer] ?? If further treatment with your primary care physician or another doctor is recommended, it is important for you to keep the appointment. Call your primary care physician or return to the Emergency Department immediately if your condition worsens, fails to improve, or new symptoms develop. If you need to find a doctor, you can call [facility] [employer] [facility] for a referral at [phone] or toll free at [phone]) or log in to [email or web address].. ?? You can view and manage your care through the patient portal or by using a health care lore of your choosing. [employer] is a website that allows you to securely view your medical information including your hospital discharge summary, office visit summaries, medications and follow-up visits. You can also request appointments, renew medications, and request access to your medical information using a health care lore of your choosing, or just ask a question. You can enroll at [email or web address] or register during your next office visit. You have been discharged from [facility], Patient Care Unit: D5A. If you have any questions regarding these instructions after you leave, please call us and we will be happy to assist you. [facility] Your Care Team Attending Physician Stacey AMAYA, Dinah Consulting Providers Stacey AMAYA, Dinah Discharging Providers Dinah Ibarra MD Reason for Admission called ems for shortness of breath, covid positive, baseline continuous oxygen, recently dischargedfrom snif . generalized weakness. cough. Your Diagnosis COVID-19 Tests Performed Below is a partial list of the tests performed during your hospitalization. You may have had other tests and procedures not included in this list. Please discuss all test results with your provider. Basic Metabolic Panel BUN CBC CBC w/ Differential Comprehensive Metabolic Panel COVID-19 RNA POC Creatinine High??Sensitivity??Troponin T Hold Blue Top Tube INR Lactic Acid Level Lipase Lytes PROBNP XR Chest 2 Views Frontal and Lat Primary Care Provider Jorge Garcia III, MD Advance Directive Health Care Proxy on File Yes - Health Care Proxy No qualifying data available. Discharge Vitals Temperature: 97.2 DegF Height: 183 cm Pulse Rate: 58 bpm Weight: 58.8 kg Respiratory Rate: 18 br/min Body Mass Index:??17.56 kg/m2??Low Systolic Blood Pressure: 108 mm Hg Body surface area: 1.73 Diastolic Blood Pressure: 62 mm Hg ?? Oxygen Saturation: 100 % ?? Studies Pending All tests and labs ordered during this hospital stay have been completed unless listed below. Please discuss all pending results with your provider listed above in these instructions. ?? High??Sensitivity??Troponin T (Troponin T, High Sensitivity) INR Urinalysis w/hold for Urine Culture What to do next Instructions From Your Doctor Discharge Orders Scheduled Follow-Up Appointments Tuesday 9:00 AM EST ?? With: Gavin Russell DO Where: [facility] [address] [place] [address]- You Need to Schedule the Following Appointments Follow Up with??Jorge Garcia III, MD When?? Where: [address] [place] [id number]- Discharge Medications KOJOANT JUNG :1955 Visit Date:11/05/2022 Medications: Please continue your medications until treatment is completed or stopped by your provider. Medications not listed below should be discontinued. Discuss any questions related to medications with your provider. What How Much When Instructions Next Dose New Dexamethasone (dexamethasone 6 mg oral tablet) 1 tab(s) Oral Daily Duration: 7 Days Pickup at [facility] 3 11/08/22 at 9am Changed Pantoprazole (pantoprazole 40 mg oral delayed release tablet) 1 tab(s) Oral Daily 11/08/22 at 9am Changed Pantoprazole (Protonix 40 mg oral delayed release tablet) 1 tab(s) Oral Daily Duration: 7 Days Pickup at [facility] 3 Unchanged Acetaminophen (Tylenol 325 mg oral tablet) 2 tab(s) Oral Every 8 hours last dose 11/07/22 at 916am Unchanged Albuterol (Albuterol (Eqv-ProAir HFA) 90 mcg/ inh inhalation aerosol) 2 puff(s) Inhalation Every 6 hours as needed for Wheezing/Shortness of Breath PRn as needed Unchanged Aspirin (aspirin 81 mg oral delayed release tablet) 1 tab(s) Oral Daily 11/08/22 at 9am Unchanged Atorvastatin (atorvastatin 80 mg oral tablet) 1 tab(s) Oral Daily at Bedtime 11/07/22 at 9pm Unchanged Bisacodyl (bisacodyl 10 mg rectal suppository) 1 suppository(ies) Per rectum Daily as needed for for constipation PRN as needed Unchanged Budesonide-Formoterol (Symbicort 160mcg/ 4.5mcg Inhaler) 2 puff(s) Inhalation Twice a day resume home dose Unchanged Collagenase Topical (Santyl 250 u/ gm ointment) 1 lore Topically Daily left lateral leg ulcer ?? resume home dose Unchanged Dicyclomine (dicyclomine 10 mg oral capsule) 1 capsule Oral 4 times a day last dose 11/07/22 at 1130 Unchanged Docusate (docusate sodium 100 mg oral capsule) 1 capsule Oral Daily as needed for constipation PRN as needed Unchanged Doxycycline (doxycycline monohydrate 100 mg oral tablet) 1 tab(s) Oral Twice a day Duration: 10 Days 11/07/22 at 3pm Unchanged Duloxetine (duloxetine 60 mg oral enteric coated capsule) 1 capsule Oral Daily 11/08/22 at 9am Unchanged Ferrous Sulfate (ferrous sulfate 325 mg oral enteric coated tablet) 1 tab(s) Oral Daily 11/08/22 at 9am Unchanged Gabapentin (gabapentin 100 mg oral capsule) 1 capsule Oral Twice a day Duration: 7 Days 11/07/22 at 9pm Unchanged Guaifenesin (guaiFENesin 100 mg/ 5 mL oral liquid) 10 Milliliter Oral Every 4 hours as needed for for cough PRn as needed Unchanged Hydromorphone (HYDROmorphone 2 mg oral tablet) 1 tab(s) Oral Twice a day as needed for as needed for pain Duration: 3 Days last dose 11/07/22 at 1330 Unchanged HydrOXYzine (hydrOXYzine hydrochloride 10 mg oral tablet) 1 tab(s) Oral Twice a day as needed for Anxiety PRN as needed Unchanged Isosorbide Dinitrate (isosorbide dinitrate 30 mg oral tablet) 1 tab(s) Oral Daily 11/08/22 at 9am Unchanged Lidocaine Topical (lidocaine 5% topical film) 1 patch Topically Daily resume home dose Unchanged Melatonin 10 Milligram Oral Daily at Bedtime as needed for as needed for sleep PRN as needed Unchanged Metoprolol (Metoprolol Succinate ER 25 mg oral tablet, extended release) 1 tab(s) Oral Daily 11/08/22 at 9am Unchanged Mirtazapine (mirtazapine 15 mg oral tablet) 0.5 tab(s) Oral Daily at Bedtime 11/07/22 at 9pm Unchanged nalOXONE (naloxone 4 mg/ 0.1 mL nasal spray) INSTILL 1 SPRAY INTRANASALLY NEEDED FOR SIGNS OF NARCOTIC OVERDOSE ?? PRN as needed Unchanged Nicotine (nicotine 21 mg/ 24 hr transdermal film, extended release) 1 patch(es) Topically Daily Resume home dose Unchanged Senna (Senna 8.6 mg oral tablet) 1 tab(s) Oral Daily at Bedtime resume home dose Unchanged Sodium Biphosphate-Sodium Phosphate (Fleet Enema 19 gm-7 gm rectal enema) 1 Each Per rectum Once as needed for as needed for constipation PRN as needed Unchanged Thiamine (Vitamin B1 100 mg oral tablet) 1 tab(s) Oral Daily 11/08/22 at 9am Unchanged umeclidinium (Incruse Ellipta 62.5 mcg/ inh inhalation powder) 1 puff(s) Inhalation Every 24 hours resume home dose Unchanged Warfarin (warfarin 5 mg oral tablet) 1 tab(s) Oral Daily 11/07/22 at 6pm Pharm[facility] Information [facility]: [address], [place] [id number] [phone] ?? What How Much When Comments Stop Taking heparin flush (Heparin Flush 10 units/ mL Inj) 5 unit(s) Intravenous Infusion Every 24 hours Stop Taking Multivitamin 1 tab(s) Oral Daily Test Results Below is a partial list of the most recent Laboratory test results done prior to this discharge. You may have had other tests and procedures not included in this list. Please discuss all test resultswith your provider. Basic Metabolic Panel (11/06/2022) ???Sodium - 138 mmol/L???Potassium - 4.8 mmol/L???Chloride - 98 mmol/L???Bicarbonate Level - 30 mmol/L???Anion Gap - 10???Glucose Level - 126 mg/dL???BUN - 22 mg/dL???Creatinine-Blood - 0.6 mg/dL???Estimated GFR Creatinine - 109 ML/MIN/1.73 M2???Calcium - 9.4 mg/dL BUN (11/07/2022) ???BUN - 24 mg/dL CBC (11/07/2022) ???WBC - 5.8 k/mm3???RBC - 3.04 m/mm3???Hgb - 8.2 Gm/dL???Hct - 26.8 %???MCV - 88.2 femtoliters???MCH - 27.0 pg???MCHC - 30.6 g/dL???Platelet Count - 373 k/mm3???RDW-SD - 58.6 femtoliters???MPV - 9.1femtoliters???Nucleated RBC (Automated) - 0.0 #/100 WBC'S???Abs. NRBC - 0.0 k/mm3 CBC w/ Differential (11/05/2022) ???WBC - 7.1 k/mm3???RBC - 3.49 m/mm3???Hgb - 9.2 Gm/dL???Hct - 31.8 %???MCV - 91.1 femtoliters???MCH - 26.4 pg???MCHC - 28.9 g/dL???Platelet Count - 357 k/mm3???RDW-SD - 61.5 femtoliters???MPV - 8.7femtoliters???Nucleated RBC (Automated) - 0.0 #/100 WBC'S???Abs. NRBC - 0.0 k/mm3???Abs. Neut - 4.6 k/mm3???Abs. Lymph - 1.0 k/mm3???Abs. Hendricks - 1.2 k/mm3???Abs. Eo - 0.2 k/mm3???Abs. Baso - 0.1 k/mm3???Neut % - 65.1 %???Lymph % - 14.1 %???Hendricks % - 16.6 %???Eos % - 2.7 %???Baso % - 0.8 %???Imm Gran- 0.7 %???Abs. Imm Gran - 0.1 k/mm3 Comprehensive Metabolic Panel (11/05/2022) ???Sodium - 145 mmol/L???Potassium - 4.2 mmol/L???Chloride - 103 mmol/L???Bicarbonate Level - 32 mmol/L???Anion Gap - 10???Glucose Level - 87 mg/dL???BUN - 21 mg/dL???Creatinine-Blood - 0.6 mg/dL???Estimated GFR Creatinine - 108 ML/MIN/1.73 M2???Calcium - 9.9 mg/dL???Protein, Total - 6.8 Gm/dL???Alb umin - 3.8 Gm/dL???AG Ratio - 1.3???Alkaline Phosphatase - 221 units/L???AST (SGOT) - 18 units/L???ALT (SGPT) - 12 units/L???Bilirubin, Total - 0.2 mg/dL COVID-19 RNA POC (11/05/2022) ???COVID-19 POC Result - POSITIVE Creatinine (11/07/2022) ???Creatinine-Blood - 0.6 mg/dL???Estimated GFR Creatinine - 108 ML/MIN/1.73 M2 High??Sensitivity??Troponin T (11/07/2022) ???High Sensitivity Troponin (HSTnT) - 37 ng/L Hold Blue Top Tube (11/05/2022) ???Hold Blue Top - SPECIMEN DISCARDED AFTER 4 HOURS. INR (11/07/2022) ???INR - 1.2???Protime (PT) - 12.6 seconds Lactic Acid Level (11/05/2022) ???Lactate - 1.0 mmol/L Lipase (11/05/2022) ???Lipase - 69 units/L Lytes (11/07/2022) ???Sodium - 140 mmol/L???Potassium - 4.5 mmol/L???Chloride - 100 mmol/L???Bicarbonate Level - 33 mmol/L???Anion Gap - 7 PROBNP (11/05/2022) ???Nt-Probnp - 592 pg/mL Allergies (NKA means No Known Allergies) [...] Metabolic alkalosis?? Multiple fractures of ribs?? 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 old Rib fractures, right 3-8?? PVD (peripheral vascular disease)?? Smoking greater than 40 pack years?? Underweight?? Education Materials Below is the list of Educational Leaflet Providered with your Discharge Instructions. Dexamethasone Oral Tablet?? Fall??Prevention?? Coronavirus Disease 2019 (COVID-19): Overview?? Coronavirus Disease 2019 (COVID-19): Caring for Yourself or Others?? Valuables and Belongings I fully understand and agree that [facility] accepts no responsibility for all my personal [...] patient Date for Pt to Sign Valuables/Belongings: 11/07/22 04:33:00 ?? Other Discharge Information ? Pulmonary Rehab [...] are strongly encouraged to quit. Please call [facility] [employer] Link at [phone] or [phone] ([phone]) or log in to [email or web address] for referrals to smoking cessation programs. ?? The National Suicide Prevention Hotline is available 20/06 if you or someone you know needs to find a reason to keep living. By calling 2-463-092-[employer] (5836) you'll be connected to a skilled, trained counselor at a crisis center in your area. INPATIENT DISCHARGE INSTRUCTIONS SIGNATURE PAGE KOJOANT Location:[facility] Registration Date and Time:11/05/2022 23:04 [facility] Primary Care Physician: Jose LEE MD, Jorge Tsang, I ANT VARMA, have received the above patient education materials/instructions and have verbalized understanding. If ambulance or transport services are being used I further acknowledge being given a choice of service. ?? If you need to contact me, please call me at this number: . Patient/[employer] Technical Assistant Name: Patient/[employer] Technical Assistant Signature: Relationship to Patient: Witness Name/Signature: Date: * Monse Cornell RN: PERFORM Event Display: Patient Education/Instruction Authored Date: [id number] Inpatient Adult Discharge Instructions [address] [address] Name: ANT VARMA : 1955 Visit: 11/05/2022 23:04:00 Current Date: 11/07/2022 13:33 Account: [id number] Inpatient Adult Discharge Instructions We would like [...] and their families. Surveys are administered by [employer] ?? If further treatment with your primary care physician or another doctor is recommended, it is important for you to keep the appointment. Call your primary care physician or return to the Emergency Department immediately if your condition worsens, fails to improve, or new symptoms develop. If you need to find a doctor, you can call [facility] [employer] for a referral at [phone] or toll free at [phone]) or log in to [email or web address].. ?? You can view and manage your care through the patient portal or by using a health care lore of your choosing. [employer] is a website that allows you to securely view your medical information including your hospital discharge summary, office visit summaries, medications and follow-up visits. You can also request appointments, renew medications, and request access to your medical information using a health care lore of your choosing, or just ask a question. You can enroll at [email or web address] or register during your next office visit. You have been discharged from [facility], Patient Care Unit: D5A. If you have any questions regarding these instructions after you leave, please call us and we will be happy to assist you. [facility] Your Care Team Attending Physician Stacey AMAYA, Dinah Consulting Providers Dinah Ibarra MD Discharging Providers Dinah Ibarra MD Reason for Admission called ems for shortness of breath, covid positive, baseline continuous oxygen, recently dischargedfrom snif . generalized weakness. cough. Your Diagnosis COVID-19 Tests Performed Below is a partial list of the tests performed during your hospitalization. You may have had other tests and procedures not included in this list. Please discuss all test results with your provider. Basic Metabolic Panel BUN CBC CBC w/ Differential Comprehensive Metabolic Panel COVID-19 RNA POC Creatinine High??Sensitivity??Troponin T Hold Blue Top Tube INR Lactic Acid Level Lipase Lytes PROBNP XR Chest 2 Views Frontal and Lat Primary Care Provider Jorge Garcia III, MD Advance Directive Health Care Proxy on File Yes - Health Care Proxy No qualifying data available. Discharge Vitals Temperature: 97.2 DegF Height: 183 cm Pulse Rate: 58 bpm Weight: 58.8 kg Respiratory Rate: 18 br/min Body Mass Index:??17.56 kg/m2??Low Systolic Blood Pressure: 108 mm Hg Body surface area: 1.73 Diastolic Blood Pressure: 62 mm Hg ?? Oxygen Saturation: 100 % ?? Studies Pending All tests and labs ordered during this hospital stay have been completed unless listed below. Please discuss all pending results with your provider listed above in these instructions. ?? High??Sensitivity??Troponin T (Troponin T, High Sensitivity) INR Urinalysis w/hold for Urine Culture What to do next Instructions From Your Doctor Discharge Orders Scheduled Follow-Up Appointments Tuesday 9:00 AM EST ?? With: Gavin Russell DO Where: [facility] [address] [place] [address]- You Need to Schedule the Following Appointments Follow Up with??Jose LEE MD, Jorge Tsang When?? Where: [address] [place] [address] [place] [id number]- Discharge Medications ANT VARMA :1955 Visit Date:11/05/2022 Medications: Please continue your medications until treatment is completed or stopped by your provider. Medications not listed below should be discontinued. Discuss any questions related to medications with your provider. What How Much When Instructions Next Dose New Dexamethasone (dexamethasone 6 mg oral tablet) 1 tab(s) Oral Daily Duration: 7 Days Pickup at [facility] 3 Changed Pantoprazole (pantoprazole 40 mg oral delayed release tablet) 1 tab(s) Oral Daily Changed Pantoprazole (Protonix 40 mg oral delayed release tablet) 1 tab(s) Oral Daily Duration: 7 Days Pickup at [facility] 3 Unchanged Acetaminophen (Tylenol 325 mg oral tablet) 2 tab(s) Oral Every 8 hours Unchanged Albuterol (Albuterol (Eqv-ProAir HFA) 90 mcg/ inh inhalation aerosol) 2 puff(s) Inhalation Every 6 hours as needed for Wheezing/Shortness of Breath Unchanged Aspirin (aspirin 81 mg oral delayed release tablet) 1 tab(s) Oral Daily Unchanged Atorvastatin (atorvastatin 80 mg oral tablet) 1 tab(s) Oral Daily at Bedtime Unchanged Bisacodyl (bisacodyl 10 mg rectal suppository) 1 suppository(ies) Per rectum Daily as needed for for constipation Unchanged Budesonide-Formoterol (Symbicort 160mcg/ 4.5mcg Inhaler) 2 puff(s) Inhalation Twice a day Unchanged Collagenase Topical (Santyl 250 u/ gm ointment) 1 lore Topically Daily left lateral leg ulcer ?? Unchanged Dicyclomine (dicyclomine 10 mg oral capsule) 1 capsule Oral 4 times a day Unchanged Docusate (docusate sodium 100 mg oral capsule) 1 capsule Oral Daily as needed for constipation Unchanged Doxycycline (doxycycline monohydrate 100 mg oral tablet) 1 tab(s) Oral Twice a day Duration: 10 Days Unchanged Duloxetine (duloxetine 60 mg oral enteric coated capsule) 1 capsule Oral Daily Unchanged Ferrous Sulfate (ferrous sulfate 325 mg oral enteric coated tablet) 1 tab(s) Oral Daily Unchanged Gabapentin (gabapentin 100 mg oral capsule) 1 capsule Oral Twice a day Duration: 7 Days Unchanged Guaifenesin (guaiFENesin 100 mg/ 5 mL oral liquid) 10 Milliliter Oral Every 4 hours as needed for for cough Unchanged Hydromorphone (HYDROmorphone 2 mg oral tablet) 1 tab(s) Oral Twice a day as needed for as needed for pain Duration: 3 Days Unchanged HydrOXYzine (hydrOXYzine hydrochloride 10 mg oral tablet) 1 tab(s) Oral Twice a day as needed for Anxiety Unchanged Isosorbide Dinitrate (isosorbide dinitrate 30 mg oral tablet) 1 tab(s) Oral Daily Unchanged Lidocaine Topical (lidocaine 5% topical film) 1 patch Topically Daily Unchanged Melatonin 10 Milligram Oral Daily at Bedtime as needed for as needed for sleep Unchanged Metoprolol (Metoprolol Succinate ER 25 mg oral tablet, extended release) 1 tab(s) Oral Daily Unchanged Mirtazapine (mirtazapine 15 mg oral tablet) 0.5 tab(s) Oral Daily at Bedtime Unchanged nalOXONE (naloxone 4 mg/ 0.1 mL nasal spray) INSTILL 1 SPRAY INTRANASALLY NEEDED FOR SIGNS OF NARCOTIC OVERDOSE ?? Unchanged Nicotine (nicotine 21 mg/ 24 hr transdermal film, extended release) 1 patch(es) Topically Daily Unchanged Senna (Senna 8.6 mg oral tablet) 1 tab(s) Oral Daily at Bedtime Unchanged Sodium Biphosphate-Sodium Phosphate (Fleet Enema 19 gm-7 gm rectal enema) 1 Each Per rectum Once as needed for as needed for constipation Unchanged Thiamine (Vitamin B1 100 mg oral tablet) 1 tab(s) Oral Daily Unchanged umeclidinium (Incruse Ellipta 62.5 mcg/ inh inhalation powder) 1 puff(s) Inhalation Every 24 hours Unchanged Warfarin (warfarin 5 mg oral tablet) 1 tab(s) Oral Daily [facility] Information [facility]: [address], [place] [id number] [phone] ?? What How Much When Comments Stop Taking heparin flush (Heparin Flush 10 units/ mL Inj) 5 unit(s) Intravenous Infusion Every 24 hours Stop Taking Multivitamin 1 tab(s) Oral Daily Test Results Below is a partial list of the most recent Laboratory test results done prior to this discharge. You may have had other tests and procedures not included in this list. Please discuss all test resultswith your provider. Basic Metabolic Panel (11/06/2022) ???Sodium - 138 mmol/L???Potassium - 4.8 mmol/L???Chloride - 98 mmol/L???Bicarbonate Level - 30 mmol/L???Anion Gap - 10???Glucose Level - 126 mg/dL???BUN - 22 mg/dL???Creatinine-Blood - 0.6 mg/dL???Estimated GFR Creatinine - 109 ML/MIN/1.73 M2???Calcium - 9.4 mg/dL BUN (11/07/2022) ???BUN - 24 mg/dL CBC (11/07/2022) ???WBC - 5.8 k/mm3???RBC - 3.04 m/mm3???Hgb - 8.2 Gm/dL???Hct - 26.8 %???MCV - 88.2 femtoliters???MCH - 27.0 pg???MCHC - 30.6 g/dL???Platelet Count - 373 k/mm3???RDW-SD - 58.6 femtoliters???MPV - 9.1femtoliters???Nucleated RBC (Automated) - 0.0 #/100 WBC'S???Abs. NRBC - 0.0 k/mm3 CBC w/ Differential (11/05/2022) ???WBC - 7.1 k/mm3???RBC - 3.49 m/mm3???Hgb - 9.2 Gm/dL???Hct - 31.8 %???MCV - 91.1 femtoliters???MCH - 26.4 pg???MCHC - 28.9 g/dL???Platelet Count - 357 k/mm3???RDW-SD - 61.5 femtoliters???MPV - 8.7femtoliters???Nucleated RBC (Automated) - 0.0 #/100 WBC'S???Abs. NRBC - 0.0 k/mm3???Abs. Neut - 4.6 k/mm3???Abs. Lymph - 1.0 k/mm3???Abs. Hendricks - 1.2 k/mm3???Abs. Eo - 0.2 k/mm3???Abs. Baso - 0.1 k/mm3???Neut % - 65.1 %???Lymph % - 14.1 %???Hendricks % - 16.6 %???Eos % - 2.7 %???Baso % - 0.8 %???Imm Gran- 0.7 %???Abs. Imm Gran - 0.1 k/mm3 Comprehensive Metabolic Panel (11/05/2022) ???Sodium - 145 mmol/L???Potassium - 4.2 mmol/L???Chloride - 103 mmol/L???Bicarbonate Level - 32 mmol/L???Anion Gap - 10???Glucose Level - 87 mg/dL???BUN - 21 mg/dL???Creatinine-Blood - 0.6 mg/dL???Estimated GFR Creatinine - 108 ML/MIN/1.73 M2???Calcium - 9.9 mg/dL???Protein, Total - 6.8 Gm/dL???Alb umin - 3.8 Gm/dL???AG Ratio - 1.3???Alkaline Phosphatase - 221 units/L???AST (SGOT) - 18 units/L???ALT (SGPT) - 12 units/L???Bilirubin, Total - 0.2 mg/dL COVID-19 RNA POC (11/05/2022) ???COVID-19 POC Result - POSITIVE Creatinine (11/07/2022) ???Creatinine-Blood - 0.6 mg/dL???Estimated GFR Creatinine - 108 ML/MIN/1.73 M2 High??Sensitivity??Troponin T (11/07/2022) ???High Sensitivity Troponin (HSTnT) - 37 ng/L Hold Blue Top Tube (11/05/2022) ???Hold Blue Top - SPECIMEN DISCARDED AFTER 4 HOURS. INR (11/07/2022) ???INR - 1.2???Protime (PT) - 12.6 seconds Lactic Acid Level (11/05/2022) ???Lactate - 1.0 mmol/L Lipase (11/05/2022) ???Lipase - 69 units/L Lytes (11/07/2022) ???Sodium - 140 mmol/L???Potassium - 4.5 mmol/L???Chloride - 100 mmol/L???Bicarbonate Level - 33 mmol/L???Anion Gap - 7 PROBNP (11/05/2022) ???Nt-Probnp - 592 pg/mL Allergies (NKA means No Known Allergies) [...] Metabolic alkalosis?? Multiple fractures of ribs?? 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 old Rib fractures, right 3-8?? PVD (peripheral vascular disease)?? Smoking greater than 40 pack years?? Underweight?? Education Materials Below is the list of Educational Leaflet Providered with your Discharge Instructions. Fall??Prevention?? Coronavirus Disease 2019 (COVID-19): Overview?? Coronavirus Disease 2019 (COVID-19): Caring for Yourself or Others?? Valuables and Belongings I fully understand and agree that [facility] accepts no responsibility for all my personal [...] patient Date for Pt to Sign Valuables/Belongings: 11/07/22 04:33:00 ?? Other Discharge Information ? Pulmonary Rehab [...] are strongly encouraged to quit. Please call [facility] [employer] Link at [phone] or [phone]) or log in to [email or web address] for referrals to smoking cessation programs. ?? The National Suicide Prevention Hotline is available 20/06 if you or someone you know needs to find a reason to keep living. By calling 8-907-967-[employer] (0528) you'll be connected to a skilled, trained counselor at a crisis center in your area. INPATIENT DISCHARGE INSTRUCTIONS SIGNATURE PAGE KOJO, ANT Location:[facility] Registration Date and Time:11/05/2022 23:04 EST Primary Care Physician: Jose LEE MD, Jorge Tsang, I ANT VARMA, have received the above patient education materials/instructions and have verbalized understanding. If ambulance or transport services are being used I further acknowledge being given a choice of service. ?? If you need to contact me, please call me at this number: . Patient/[employer] Technical Assistant Name: Patient/[employer] Technical Assistant Signature: Relationship to Patient: Witness Name/Signature: Date: * Monse Cornell RN: PERFORM Event Display: Patient Education Leaflets Authored Date: [id number] Dexamethasone Oral Tablet ?? [id number] Dexamethasone Oral Tablet Brands: [employer] Uses This medicine is used for the following purposes: ??? allergic reaction ??? autoimmune disorder ???blood disorder ??? diagnostic test ??? endocrine disorder ??? inflammatory disease ??? nausea and vomiting ??? immune suppression ??? cancer ??? COVID-19 (coronavirus) ?? Instructions Take the medicine with food. Keep the medicine at room temperature. Avoid heat and direct light. If you forget to take a dose on time, take it as soon as you remember. If it is almost time for thenext dose, do not take the missed dose. Return to your normal dosing schedule. Do not take 2 doses of this medicine at one time. Drug interactions can change how medicines work or increase risk for side effects. Tell your healthcare providers about all medicines taken. Include prescription and dqqe-njn-jnzhfks medicines, vitamins, and herbal medicines. Speak with your doctor or pharmacist before starting or stopping any medicine. Tell your doctor if symptoms do not get better or if they get worse. Do not suddenly stop taking this medicine. Check with your doctor before stopping. This medicine may affect your blood sugar levels. If you have diabetes, talk to your doctor before changing the dose of your diabetes medicine. This medicine may affect the strength of your bones. If you have or are at increased risk for developing osteoporosis (weakening of the bones), your doctor may recommend adding foods containing calcium and vitamin D while on this medicine. Please talk to your doctor for more information. ?? Cautions Tell your doctor and pharmacist if you ever had an allergic reaction to a medicine. Some patients taking this medicine have experienced serious side effects. Please speak with your doctor to understand the risks and benefits associated with this medicine. Do not use the medication any more than instructed. Please check with your doctor before drinking alcohol while on this medicine. This medicine may reduce your body's ability to fight infections. Avoid contact with people with colds, flu or other infections. Contact your doctor if you develop fever, cough, sore throat, or chills. Speak with your health care provider before receiving any vaccinations. It is unknown if this medicine passes into breast milk. Ask your doctor before . During , this medicine should be used only when clearly needed. Talk to your doctor about the risks and benefits. Do not share this medicine with anyone who has not been prescribed this medicine. ?? Side Effects The following is a list of some common side effects from this medicine. Please speak with your doctor about what you should do if you experience these or other side effects. ??? agitated feeling or trouble sleeping ??? increased appetite ??? headaches ??? high blood sugar ??? high blood pressure ??? stomach upset or abdominal pain ??? weight gain Call your doctor or get medical help right away if you notice any of these more serious side effects: ??? change in behavior ??? bleeding or bruising ??? severe or persistent bone, joint or jaw pain ??? confusion ??? coughing up blood or vomit that looks like coffee grounds ??? depression or feeling sad ??? swelling of the legs, feet, and hands ??? pain in the eye ??? fever or chills ??? hallucinations (unusual thoughts, seeing or hearing things that are not real) ??? fast or irregular heart beats ??? menstruation changes (missed or fewer periods) ??? mood changes ??? muscle pain or weakness ??? seizures ??? thinning of the skin ??? severe stomach or bowel pain ??? bloody or dark, tarry stools ??? suicidal thoughts ??? thirst ??? unusual or unexplained tiredness or weakness ??? increased urinary frequency ??? blurring or changes of vision ??? sudden or unexplained weight gain ??? slow wound healing A few people may have an allergic reaction to this medicine. Symptoms can include difficulty breathing, skin rash, itching, swelling, or severe dizziness. If you notice any of these symptoms, seek medical help quickly. ?? Extra Please speak with your doctor, nurse, or pharmacist if you have any questions about this medicine. ?? [email or web address] IMPORTANT NOTE: This document tells you briefly how to take your medicine, but it does not tell youall there is to know about it. Your doctor or pharmacist may give you other documents about your medicine. Please talk to them if you have any questions. Always follow their advice. There is a more complete description of this medicine available in Maltese. Scan this code on your smartphone or tablet or use the web address below. You can also ask your pharmacist for a printout. If you have any questions, please ask your pharmacist. The display and use of this drug information is subject to Terms of Use. Copyright(c) 2021 [employer]. ?? The [employer], LVL6. All rights reserved. This information is not intended as a substitute for professional medical care. Always follow your healthcare professional's instructions. ?? * Aneta SHANNON, Monse: PERFORM Event Display: Patient Education Leaflets Authored Date: [id number] Fall??Prevention ?? [id number] Fall??Prevention Falls often take place due to [...] more often. Last Reviewed Date: 2021 ?? [id number] [employer]. All rights reserved. This information is not intended as a substitute for professional medical care. Always follow your healthcare professional's instructions. ?? * Jurgen Hyde RN: PERFORM Event Display: Patient Education Leaflets Authored Date: [id number] Coronavirus Disease 2019 (COVID-19): Overview ?? 61170 Coronavirus Disease 2019 (COVID-19): Overview Coronavirus disease [...] hands often, or use an alcohol-based hand load dropper. To learn more For the latest from the [facility]: ? Go to the [facility] website ??? Call [phone] ([phone]) ? What are the symptoms of COVID-19? Some [...] loss of sense of smell or taste Check your symptoms with the CDC???s Coronavirus Self-Director [employer]. ?? What are possible complications of COVID-19? [...] COVID-19 ??? If you have had COVID-19 Know your testing options with the CDC's COVID-19 Viral Testing Tool. You may have 1 of these testsfor COVID-19: ??? Viral (molecular) test. You may [...] COVID-19 The FDA and CDC advise vaccines to help prevent COVID-19. The vaccines can also make the illness less severe. It can keep you from needing to go to the hospital.?? And it can prevent the spread of the virus to others. No vaccine is 100% effective at preventing an illness. But getting a vaccine is important. COVID-19 vaccines are available for people as young as 6 months old. or people can have the vaccine. Vaccines are given as a primary series.Boosters are given later tohelp with protection. The vaccines are given as a shot (injection) into the muscle. Ask your healthcare provider which vaccine is best for you and your family. There is a 1- dose vaccine from [employer] ([employer]) for people ages 18 and older. Or a 2-dose vaccine from [employer] for people ages 12 and older. Two-dose Pfizer and Moderna vaccines are for people as young as 6 months old. They are given in se veral doses a few weeks apart. People with a weak immune system may have other advice. Talk with your healthcare provider about which vaccine is best for you and your family. COVID-19 vaccine booster shots People age 5 or older can get a COVID-19 booster shot. It's given a few months after their primary series. Boosters can help with protection against COVID-19 that may have decreased over time. Booster advice varies by vaccine, age, health, and COVID-19 variants. Talk with your provider aboutyour risk and when to get a booster. ?? How is COVID-19 treated? The best treatments right now are those to help your body while it fights the virus. This is calledsupportive care. It includes: ??? Rest.This helps your body fight the illness. ??? Fluids. Try to drink 6 to 8 glasses of fluids every day. Ask your provider which drinks are best for you. Don't have drinks with caffeine or alcohol. ??? Yajq-cck-bbhfdja (OTC) medicine. These are used to help ease pain and reduce fever. Ask yourprovider which OTC medicine is safe for you [...] in the hospital and at home. ??? Antivirals and monoclonal antibodies. The FDA has approved certain antivirals and monoclonal antibodies to treat COVID-19. These treatments are for people who are more likely to get very sick. These treatments are not available for everyone. Talk with your healthcare provider to learn more. o Antivirals stop the SARS-CoV-2 virus from spreading in the body. o Monoclonal antibodies help the immune system fight the virus. ? Steroids or other anti-inflammatory medicines. These are used to lessen the in flammation that some people with COVID-19 have. Inflammation can lead to more trouble breathing. Itcan cause other complications or . ??? COVID-19 convalescent plasma. Plasma is the liquid partof blood. People who had COVID-19 may be asked to donate plasma. This is called COVID-19 convalescent plasma. The plasma may have antibodies. These can help fight COVID-19 in people who are very ill with it. Check with your provider to see if this is an option in your area. ?? Are you at risk for COVID-19? You are at risk for COVID-19 if any of these apply to you: ??? You live in or traveled to an area with cases of COVID-19 ??? You had close contact (within 6 feet) with someone who had COVID-19 COVID-19 may be spread by people who don't show symptoms. Date last modified: 08/05/2022 ?? Last Reviewed Date: 2021 ?? 3902-0015 [employer]. All rights reserved. This information is not intended as a substitute for professional medical care. Always follow your healthcare professional's instructions. ?? * BHSPowerscsherita , CIS S: MIRTHA Raza MD, Zack W: VERIFY Event Display: Result: Authored Date: Chest 2 Views Frontal and Lat Hx of Present Illness: Covid positive, COPD, worsening SOB. Productive cough, chills.; Reason: Other:; Chest Pain; Clinical Question(s): Other:; Order Comment: pt unable to walk, came in by ambulance, needs stretcher, on oxygen, covid + 1840hrs [facility] COMPARISON: 09/22/2022 FINDINGS: LINES AND TUBES: None. LUNGS AND PLEURA: Large lung volumes. Otherwise, lungs are clear. No pleural effusion. No pneumothorax. HEART, MEDIASTINUM AND MAMADOU: Heart is normal in size. Coronary stents noted. Normal mediastinal and hilar contour. BONES AND SOFT TISSUES: No acute abnormality. Right rib fixation hardware is unchanged. Displaced superior screw projectingover the right sixth rib, unchanged. Right old distal clavicular fracture. IMPRESSION: COPD. No acute radiographic process. WSN: [id number] Ordering Physician: Kristyn Pineda Dictated By: Zack Raza MD Dictated Date/Time: 11/05/22 8:05 pm Reviewed By: Zack Raza MD Signed By: Zack Raza MD Signed Date/Time: 11/05/22 8:05 pm Transcribed By: BERENICE Transcribed Date/Time: 11/05/22 8:02 pm Patient Care team information Care Team Personnel Name: Michael Girard RN Position: [facility] RN Member Role: Primary Care Nurse Name: Radha Hsieh RN Position: [facility] RN Member Role: Primary Care Nurse Name: Glo Camarena RN Position: [facility] RN Member Role: Primary Care Nurse Name: Fatimah Bennett RN Position: [facility] RN Member Role: Primary Care Nurse Name: Mariely Hardy RN Position: [facility] RN Member Role: Primary Care Nurse Name: Sydney Zelaya Position: [facility] PCO OFFICE STAFF Member Role: Lifetime Consulting Physician Name: Judd Barahona RN Position: [facility] RN Member Role: Primary Care Nurse Name: Mag Harry RN Position: [facility] RN Member Role: Primary Care Nurse Name: An Blount RN Position: [facility] RN Supv Member Role: Primary Care Nurse Name: Marianna Ng RN Position: [facility] SN RN Member Role: Primary Care Nurse Name: Avani Odell RN Position: [facility] RN Member Role: Primary Care Nurse Name: Elizabeth Noriega RN Position: [facility] RN Member Role: Primary Care Nurse Name: Ruben Bello RN Position: [facility] RN Member Role: Primary Care Nurse Name: Zoë Thompson RN Position: [facility] RN Member Role: Primary Care Nurse Name: Araceli Simon RN Position: [facility] RN Member Role: Primary Care Nurse Name: Roman Weiner RN Position: [facility] RN Member Role: Primary Care Nurse Name: Jorge Garcia III, MD Position: [facility] Ambulatory (view) Member Role: PCP Address: Address: [address] [place] [id number] Name: Misty Nguyen RN Position: [facility] RN Member Role: Primary Care Nurse Name: Sarwat Aj RN Position: [facility] RN Member Role: Primary Care Nurse Name: Cassi Batista RN Position: [facility] RN Member Role: Primary Care Nurse Name: Ellis Mayfield RN Position: [facility] RN Member Role: Primary Care Nurse Name: Ayah Robison RN Position: [facility] RN Member Role: Primary Care Nurse Name: Kirstin Enriquez RN Position: [facility] RN Member Role: Primary Care Nurse Name: Jina Smalls RN Position: [facility] RN Member Role: Primary Care Nurse Name: Laura Clements RN Position: [facility] RN Member Role: Primary Care Nurse Name: Colette Syed RN Position: [facility] RN Member Role: Primary Care Nurse Name: Muriel Daley RN Position: [facility] RN Supv Member Role: Primary Care Nurse Name: Darlyn Alvarez RN Position: [facility] RN Member Role: Primary Care Nurse Name: Maribell Mejias RN Position: [facility] RN Member Role: Primary Care Nurse Name: Rachna Renteria RN Position: [facility] RN Member Role: Primary Care Nurse Name: Zohreh Pink RN Position: [facility] RN Member Role: Primary Care Nurse Name: Sophie Berrios RN Position: [facility] RN Member Role: Primary Care Nurse Name: Cindy Grullon RN Position: [facility] RN Supv Member Role: Primary Care Nurse Name: Elham Melgar RN Position: [facility] RN Member Role: Primary Care Nurse Name: Elham Lee RN Position: [facility] PCO RN Member Role: Primary Care Nurse Name: Ana María Cat RN Position: [facility] RN Member Role: Primary Care Nurse Name: Flor Holley Position: [facility] RN Member Role: Primary Care Nurse Name: Bret Aguirre RN Position: [facility] RN Member Role: Primary Care Nurse Name: Rosa Elena Lora RN Position: [facility] RN Member Role: Primary Care Nurse Name: Ghazal Moreno Position: [facility] RN Member Role: Primary Care Nurse Name: Audra Martinez RN Position: [facility] RN Member Role: Primary Care Nurse Name: Shahbaz Bobo RN Position: [facility] RN Member Role: Primary Care Nurse Name: Jennifer Yin LPN Position: [facility] RN Member Role: Primary Care Nurse Name: Alina Arce RN Position: [facility] RN Member Role: Primary Care Nurse Name: Marcelo Schneider RN Position: [facility] ED RN W/OE and Tasks Member Role: Primary Care Nurse Name: Radha Masterson RN Position: [facility] RN Member Role: Primary Care Nurse Name: Amy Larios RN Position: [facility] RN Member Role: Primary Care Nurse Name: Indira Lindsey RN Position: [facility] SN RN Member Role: Primary Care Nurse Name: Rosa Elena Pope RN Position: [facility] RN Member Role: Primary Care Nurse Name: Florentino Garcia RN Position: [facility] RN Member Role: Primary Care Nurse Name: Cristel Moreno RN Position: [facility] RN Member Role: Primary Care Nurse Name: Rosa Elena De León RN Position: [facility] Information Systems Security Analyst Member Role: Primary Care Nurse Name: Tulio Pina RN Position: [facility] RN Member Role: Primary Care Nurse Name: Maximiliano Claros RN Position: [facility] RN Member Role: Primary Care Nurse Name: Narda Barnes RN Position: [facility] RN Member Role: Primary Care Nurse Name: Zoë Cisse RN Position: [facility] RN Member Role: Primary Care Nurse Name: Pat Bowers RN Position: [facility] SN RN Member Role: Primary Care Nurse Name: Tayler Cabello RN Position: [facility] RN Member Role: Primary Care Nurse Name: Hilaria Aparicio RN Position: [facility] RN Member Role: Primary Care Nurse Name: Carly Rosado RN Position: [facility] RN Supv Member Role: Primary Care Nurse Name: Sydney Rosado RN Position: [facility] RN Member Role: Primary Care Nurse Name: Uriel Dumont Position: [facility] RN Member Role: Primary Care Nurse Name: Selene Vazquez RN Position: [facility] RN Member Role: Primary Care Nurse Name: Leyla Verma LPN Position: [facility] RN Member Role: Primary Care Nurse Name: Rody Mays RN Position: [facility] RN Member Role: Primary Care Nurse Name: Marielos Mixon RN Position: [facility] RN Member Role: Primary Care Nurse Name: Radha Flores RN Position: [facility] RN Member Role: Primary Care Nurse Name: Rose Kyle RN Position: [facility] Information Systems Security Analyst Member Role: Primary Care Nurse Name: Aimee Salamanca Position: [facility] RN Member Role: Primary Care Nurse Name: Savanna PINK Attending Position: [facility] ED Medicine MD Name: Hetal Torres Position: [facility] ED TA [facility] Member Role: Entry Level Accountant Name: Elly Cardenas RN Position: [facility] ED RN W/OE and Tasks Member Role: Patient Care Provider Name: Grisel Maier RN Position: [facility] ED RN W/OE and Tasks Member Role: Patient Care Provider Care Team Related Persons Name: STEVENSON HAMM Address: home [address] [place] [id number] Name: MELINA VARMA Address: [place] [address] Name: GARRY VARMA Address: home [address] [place] [address] Name: BRIEN LANCASTER Address: home [address] [place] [id number]
--- OUTSIDE RECORDS SUMMARY | 2023-08-15 20:33 | XMS_ITS | Continuity of Care Document ---
Author Name Unknown Organization [facility] Address [address] [place] [address]- Care Team Providers Care Internal Carver Name Role Phone Jose LEE MD, Jorge Tsang Primary Care Physician [phone] Encounter [facility] Date(s): 08/13/20 - 09/12/20 [facility] [address] [place] [address]- [facility] Allergies, Adverse Reactions, Alerts Substance Reaction Severity [...] 16:44:00 EDT, Aerosol, Route to Pharmacy Electronically, [id number], [facility]/pharmacy #[id number], 182, cm, 05/26/20 16:01:00 [...] 0 Refills, Maintenance, 09/05/20 17:15:00 EDT, Tablet, [facility]/pharmacy #[id number], 182, cm, 05/26/20 16:01:00 EDT, Height, [...] 0 Refills, Maintenance, 08/20/20 17:42:00 EDT, Tablet, [facility]/pharmacy #[id number], 182, cm, [...] 6, 03/31/07 11:15:26, Print MARTIN Number, ADS [facility], [address] [place] [address], [id number], Constant Indicator Start Date: 03/31/07 Stop Date: [...] Multiple fractures of ribs(Confirmed) 01/06/11 Active Old OK (myocardial infarctio n) X 3(Confirmed) Active PVD (peripheral vascular disease)(Confirmed) Active 1Cardiac stents 1991, 1995 Social History Social History Type Response Tobacco Use: Former smoker.. Sex Male
--- OUTSIDE RECORDS SUMMARY | 2023-08-15 20:33 | XMS_ITS | Continuity of Care Document ---
Author Name Unknown Organization [facility] Address [address] [place] [address]- Care Team Providers Care Hand Endband Cutter Name Role Phone Jose LEE MD, Jorge Tsang Primary Care Physician Encounter [facility] Date(s): 06/29/21 - 07/29/21 [facility] [address] [place] [address]- Allergies, Adverse Reactions, Alerts Substance Reaction Severity [...] 6 Refills, Maintenance, 07/24/20 16:44:00 EDT, [facility]/pharmacy #[id number], 182, cm, 05/26/20 16:01:00 EDT, Height, 67, kg, 07/05/20 13:57:00 EDT, Dry Weight Start Date: 07/24/20 Status: Ordered albuterol CFC free 90 mcg/inh inhalation aerosol 2, puffs, Inhalation, Every 6 hours, PRN, j44.9, # 1 each, Refills 6, Tot. Refills 6, Maintenance, 07/24/20 16:44:00 EDT, Aerosol, Route to Pharmacy Electronically, [id number], [facility]/pharmacy #[id number], 182, cm, 05/26/20 [...] 03/31/07 11:15:26, Print MARTIN Number, ADS [facility], [address] [place] [address], [phone], Constant Indicator Start Date: 03/31/07 Stop Date: [...]
--- OUTSIDE RECORDS SUMMARY | 2023-08-15 20:34 | XMS_ITS | Continuity of Care Document ---
Author Name Unknown Organization [facility] Address [address] [place] [address]- Care Team Providers Care Clinician Oncology Name Role Phone Elder Juliet AMAYA Primary Care Physicia n Encounter [facility] ACCT R [id number] Date(s): 08/14/22 - 09/13/22 [facility] [address] [place], [place] [address] Attending Physician: Admruy, Anabel Admitting Physician: Admtr, Anabel Referring Physician: [...] 07/10/22 Status: Ordered Patient Care team information Personnel Name: Ankit AMAYA, Juliet Guy Address: Address: [address] [place] [address] [address] [facility] [place], [place] [address]
--- OUTSIDE RECORDS SUMMARY | 2023-08-15 20:34 | XMS_ITS | Continuity of Care Document ---
Author Name Unknown Organization [facility] ter Address [address] [place] [address]- Care Team Providers Care On Call Pharmacy Technician Name Role Phone Jose LEE MD, Jorge Tsang Primary Care Physician Encounter [facility] Date(s): 06/14/22 - 06/14/[address] [address]- Discharge Disposition: A-D/C Walkout Attending Physician: Not [...] Bubba rded influenza virus vaccine, inactivated 07/26/18 Bbuba rded influenza virus vaccine, inactivated 08/29/17 Bubba [...] opioid drug. Start Date: 04/06/22 Status: Ordered Albuterol (Eqv-ProAir HFA) 90 mcg/inh inhalation aerosol INHALE 2 PUFFS INTO THE LUNGS EVERY 6 HOURS NEEDED FOR COUGH, WHEEZING OR SHORTNESS OF BREATH. Start Date: 04/27/22 Status: Ordered albuterol 0.083% inhalation solution 3 mL = 2.5 mg, Neb, Every 4 hours, PRN Wheezing/Shortness of Breath, j44.9, # 540 mL, 6 Refills, Maintenance, 07/24/20 16:44:00 EDT, [facility]/pharmacy #[id number], 182, cm, 05/26/20 16:01:00 EDT, Height, 67, kg, 07/05/20 13:57:00 EDT, Dry Weight Start Date: 07/24/20 Status: Ordered aspirin 81 mg oral delayed release tablet 81 mg, 1, tablet, By Mouth, Daily, # 30 tablet, Refills 0, Maintenance, 04/27/22 20:47:00 EDT, Partial fill upon patient request if the prescription is for a schedule II opioid drug. Start Date: 04/27/22 Status: Ordered aspirin 81 mg oral tablet 1 tablet = 81 mg, By Mouth, Daily, # 30 tablet, 0 Refills, Maintenance, 05/23/19 1:08:58 EDT, Tablet Start Date: 05/23/19 Status: Ordered atorvastatin 80 mg oral tablet By Mouth, Daily at supper, 0 Refills, Maintenance, 07/01/14 14:30:54, Tablet Start Date: 07/01/14 Status: Ordered atorvastatin 80 mg oral tablet 1 tablet = 80 mg, By Mouth, Daily, # 90 tablet, 0 Refills, Maintenance, 04/27/22 19:33:00 EDT, Tablet, Partial fill upon patient request if the prescription is for a schedule II opioid drug. Start Date: 04/27/22 Status: Ordered Carafate 1 gm oral tablet 1 Gm, 1, tablet, By Mouth, 3 times a day before meals and bedtime, # 28 tablet, Refills 0, Tot. Refills 0, Maintenance, 06/05/22 9:51:00 EDT, Route to Pharmacy Electronically, [facility]/pharmacy #[id number], Partial fill upon patient request if the prescription i... Start Date: 06/05/22 Stop Date: 06/12/22 Status: Ordered citalopram 20 mg oral tablet [...] Ordered docusate sodium 100 mg oral capsule TAKE [...] opioid drug. Start Date: 03/25/22 Status: Ordered ferrous sulfate 325 mg oral [...] Maintenance,05/16/22 16:21:00 EDT, Route to Pharmacy Electronically, [facility], Partial fill upon patient request if the prescription is for a sched... Start Date: 05/16/22 Status: Ordered Incruse Ellipta 62.5 mcg/inh inhalation powder 0 Refills, Maintenance, 04/27/22 19:33:00 EDT, Partial fill upon patient request if the prescription is for a schedule II opioid drug. Start Date: 04/27/22 Status: Ordered Incruse Ellipta 62.5 mcg/inh inhalation powder 1 each, Inhalation, Every 24 hours, doses should be taken at least 24 hours apart, j44.9, # 1 each,6 Refills, Maintenance, 03/21/22 9:48:00 EDT, Powder, [facility]/pharmacy #[id number], 182, cm, 03/12/22 4:49:00EDT, Height, 56.7, kg, 03/10/22 1:24:00 EDT, Dry We... Start Date: 03/21/22 Status: Ordered isosorbide dinitrate 30 mg oral tablet TAKE 1 TABLET BY MOUTH EVERY DAY Start Date: 04/27/22 Status: Ordered isosorbide mononitrate 30 mg oral tablet, extended release = 30 mg, By Mouth, Daily in AM, 0 Refills, Maintenance, 07/01/14 14:32:15 EDT, ER Tablet Start Date: 07/01/14 Status: Ordered Lasix 20 mg oral tablet 20 mg, 1, tablet, By Mouth, 2 times a day, # 30 tablet, Refills 0, Maintenance, 04/27/22 20:48:00 EDT, Partial fill upon patient request if the prescription is for a schedule II opioid drug. Start Date: 04/27/22 Status: Ordered lidocaine 5% topical film 1 patch, Topically, Daily, PRN Pain , Mild, remove after 12 hours, # 13 each, 0 Refills, Maintenance, 04/03/22 16:44:00 EDT, Film, [facility]/pharmacy #[id number], Partial fill upon patient [...] drug. Start Date: 07/17/21 Status: Ordered lisinopril 2.5 mg oral tablet [...] FOR DIARRHEA. Start Date: 04/27/22 Status: Ordered Melatonin = [...] drug. Start Date: 04/27/22 Status: Ordered Multivitamin Daily, 0 Refills, Maintenance, 03/25/22 20:22:00 EDT, Partial fill upon patient request if the prescription is for a schedule II opioid drug. Start Date: 03/25/22 Status: Ordered pantoprazole 40 mg oral delayed release tablet TAKE 1 TABLET BY MOUTH EVERY DAY Start Date: 04/27/22 Status: Ordered pantoprazole 40 mg oral delayed release tablet 1 tablet = 40 mg, By Mouth, 2 times a day, # 60 tablet, 0 Refills, Maintenance, 06/01/22 9:27:00 EDT, EC Tablet, mily Richardson, 06/01/22 7:31:00 EDT, Height, 63, kg, 05/29/22 1:15:00 EDT, Dry Weight Start Date: 06/01/22 Stop Date: 07/01/22 Status: Ordered predniSONE 10 mg oral tablet [...] 0 Refills, Maintenance, 05/01/22 14:26:00 EDT, Tablet, [facility], Partial fill upon patient request if the prescription is f... Start Date: 05/01/22 Stop Date: 05/04/22 Status: Ordered predniSONE 20 mg oral tablet 2 tablet = 40 mg, By Mouth, Daily, # 6 tablet, 0 Refills, Acute 11/08/22 12:00:00 EST, 06/08/22 18:07:00 EDT, Tablet, [facility]/pharmacy #[id number], Partial fill upon patient request if the prescription is for a schedule II opioid drug., 183, cm, 06/08/22 14:23:... Start Date: 06/08/22 Stop Date: 11/08/22 Status: Ordered predniSONE 20 mg oral tablet 2 tablet = 40 mg, By Mouth, Daily, for 5 days, # 10 tablet, 0 Refills, Acute 06/18/22 15:16:00 EDT,06/13/22 15:16:00 EDT, Tablet, [facility]/pharmacy #[id number], Partial fill upon patient request if the prescription is for a schedule II opioid drug., 183, cm, 06... Start Date: 06/13/22 Stop Date: 06/18/22 Status: Ordered predniSONE 5 mg oral delayed [...] Date: 05/05/22 Status: Ordered Symbicort 160mcg/4.5mcg Inhaler INHALE 2 PUFFS INTO THE LUNGS TWICE A DAY Start Date: 04/27/22 Status: Ordered Symbicort 160mcg/4.5mcg Inhaler 2, puffs, Inhalation, 2 times a day, # 10.2 Gm, Refills 0, Maintenance, 03/08/19 9:01:22 EDT, Aerosol Start Date: 03/08/19 Status: Ordered tiZANidine 2 mg oral tablet 1 mg, 0.5, tablet, By Mouth, 3 times a day, # 30 tablet, Refills 0, Tot. Refills 0, Maintenance, 04/10/22 11:40:00 EDT, Route to Pharmacy Electronically, [facility]/pharmacy #[id number], Partial fill upon patientrequest if the prescription is for a schedule II op... Start Date: 04/10/22 Status: Ordered tiZANidine 2 mg oral tablet TAKE 1/2 TABLET BY MOUTH 3 TIMES A DAY Start Date: 04/27/22 Status: Ordered Toprol XL 25 mg oral tablet, extended release 25, mg, 1, tablet, By Mouth, Daily, 30, tablet, 6, 6, 03/31/07 11:15:26, Print MARTIN Number, [facility], [address] [place] [address], [id number], Constant Indicator Start Date: 03/31/07 Stop Date: 10/27/07 Status: Ordered Vitamin B1 100 mg oral tablet 100 mg, 1, tablet, By Mouth, Daily, # 7 tablet, Refills 0, Maintenance, 04/27/22 20:47:00 EDT, Partial fill upon patient request if the prescription is for a schedule II opioid drug. Start Date: 04/27/22 Stop Date: 05/04/22 Status: Ordered Vitamin B1 100 mg oral [...] Exam Date Time Procedure Performing Provider Status 06/14/22 5:09 PM Chest 2 Views Frontal and Lat Marcelo Bridges; Luis M (Verified) Notes: (Chest 2 Views Frontal and Lat) Reason For Exam: COPD RESULT: Chest 2 Views Frontal and Lat Chest 2 Views Frontal and Lat Hx of Present Illness: Difficulty breathing. COPD. COMPARISON: 06/13/2022 FINDINGS: LINES AND TUBES: None. LUNGS AND PLEURA: Lungs appear hyperinflated. No focal consolidation. No pleural effusion. No pneumothorax. HEART, MEDIASTINUM AND MAMADOU: Heart is normal in size. Normal upper mediastinal and hilar contour. BONES AND SOFT TISSUES: No acute abnormality. Right rib fixation. IMPRESSION: COPD. No superimposed acute radiographic process. WSN: [id number] Ordering Physician: Juan Ramon Stewart Dictated By: Zack Raza MD Dictated Date/Time: 06/14/22 5:14 pm Reviewed By: Zack Raza MD Signed By: Zack Raza MD Signed Date/Time: 06/14/22 5:14 pm Transcribed By: BERENICE Transcribed Date/Time: 06/14/22 5:14 pm Vital Signs Most recent to oldest [Reference Range]: 1 2 3 Height 183 cm (06/14/22 1:32 PM) 183 cm (06/14/22 1:16 PM) Weight 62 kg (06/14/22 1:32 PM) 62 kg (06/14/22 1:16 PM) Oxygen Saturation [94-100 %] 98 % (06/14/22 3:30 PM) 97 % (06/14/22 1:32 PM) 97 % (06/14/22 1:16 PM) Pulse Rate [55-90 bpm] 89 bpm (06/14/22 3:30 PM) 97 bpm *H* (06/14/22 1:16 PM) Body Mass Index [18.5-24.99] 18.51 (06/14/22 1:16 PM) Blood Pressure [90-138/55-84 mm Hg] 152/66mm Hg *H* (06/14/22 3:30 PM) 136/64mm Hg (06/14/22 1:16 PM) Respiratory Rate [16-30 br/min] 18 br/min (06/14/22 3:30 PM) 19 br/min (06/14/22 1:16 PM) Temperature [96.8-100.4 DegF] 99.1 DegF (06/14/22 3:30 PM) 98.5 DegF (06/14/22 1:16 PM) Liters per Minute 3 L/min (06/14/22 1:32 PM) 3 L/min (06/14/22 1:16 PM) Mode of Delivery (Oxygen) Room air (06/14/22 3:30 PM) Nasal cannula (06/14/22 1:32 PM) Nasal cannula (06/14/22 1:16 PM) Blood pressure sites Arm, left (06/14/22 3:30 PM) Arm, right (06/14/22 1:16 PM) Temperature Route Oral (06/14/22 3:30 PM) Oral (06/14/22 1:16 PM) Dry Weight 62 kg (06/14/22 1:32 PM) 62 kg (06/14/22 1:16 PM) Weight Obtained Via Patient/family stated (06/14/22 1:16 PM) Dry Weight Obtained Via Patient/family stated (06/14/22 1:16 PM) Social History Social History Type Response Tobacco Use: 4 or less cigar ettes(less than 1/4 pack)/day in last 30 days. Sex
--- OUTSIDE RECORDS SUMMARY | 2023-08-15 20:34 | XMS_ITS | Continuity of Care Document ---
Author Name Unknown Organization [facility] Address [address] [place] [address]- Care Team Providers Care Biofuels Production Associate Name Role Phone Jose LEE MD, Jorge Tsang Primary Care Physician Encounter [facility] Date(s): 04/04/20 - 05/04/20 [facility] [address] [place] [address]- [facility] Attending Physician: Anabel Mendosa Admitting Physician: AdmAnabel [...] 10:39:00 EST, Aerosol, Route to Pharmacy Electronically, [id number], [facility]/pharmacy #[id number], 182, cm, 12/26/19 9:43:00 EST, Heig... Start Date: 12/26/19 Status: Ordered apixaban = 5 mg, By Mouth, 2 times a day, To start after 7 days of 10 mg dose, 0 Refills, Maintenance, 05/27/19 14:17:22 EDT, Tablet Start Date: 05/27/19 Status: Ordered BuddyBetel ag aquacel ag, See Instructions, # 1 [...] 1 each, 0 Refills, Maintenance, 03/24/20 22:05:00EDT, [facility]/pharmacy #[id number], Apply to right [...] 1 Refills, Maintenance, 04/22/20 16:34:00 EDT, Tablet, [facility]/pharmacy #[id number], 182, cm, 04/22/20 15:28:00 EDT, [...] Acute 05/08/20 15:00:00 EDT, 05/03/20 15:00:00 EDT, [facility]/pharmacy #[id number], 182, cm, 04/22/20 15:28:00 EDT, Height,... [...] Number, ADS [facility], [address] [place] [address], [phone], Constant Indicator Start Date: 03/31/07 Stop Date: [...]
--- OUTSIDE RECORDS SUMMARY | 2023-08-15 20:34 | XMS_ITS | Continuity of Care Document ---
Author Name Unknown Organization [facility] Address [address] [place] [address]- Care Team Providers Care Software Support Analyst Name Role Phone Jose LEE MD, Jorge Tsang Primary Care Physician Encounter [facility] Date(s): 07/17/21 - 08/16/21 [facility] [address] [place] [address]- Allergies, Adverse Reactions, Alerts Substance Reaction Severity [...] mL, 6 Refills, Maintenance, 07/24/20 16:44:00 EDT, [facility]/pharmacy #[id number], 182, cm, 05/26/20 16:01:00 EDT, Height, 67, kg, 07/05/20 13:57:00 EDT, Dry Weight Start Date: 07/24/20 Status: Ordered albuterol CFC free 90 mcg/inh inhalation aerosol 2, puffs, Inhalation, Every 6 hours, PRN, j44.9, # 1 each, Refills 6, Tot. Refills 6, Maintenance, 07/24/20 16:44:00 EDT, Aerosol, Route to Pharmacy Electronically, [id number], [facility]/pharmacy #[id number], 182, cm, 05/26/20 16:01:00 [...] each,6 Refills, Maintenance, 08/13/20 16:33:00 EDT, Powder, [facility]/pharmacy #[id number], 182, cm, 05/26/20 16:01:00 [...] 6, 03/31/07 11:15:26, Print MARTIN Number, [facility], [address] [place] [address], [phone], Constant Indicator Start Date: 03/31/07 Stop Date: [...]
--- OUTSIDE RECORDS SUMMARY | 2023-08-15 20:34 | XMS_ITS | Continuity of Care Document ---
Author Name Unknown Organization [facility] ter Address [address] [place] [address]- Care Team Providers Care Manager Pet Name Role Phone Jorge Garcia III, MD Primary Care Physician Encounter [facility] Date(s): 09/15/22 - 09/16/[address] [address]- Discharge Disposition: A-D/C Walkout Attending Physician: Not [...] Start Date: 04/27/22 Status: Ordered Dilaudid Inj 2 mg, Injection, IV Push Slowly, Once, STAT, 09/15/22 20:08:00 EDT, Stop date 09/15/22 20:08:00 EDT Start Date: 09/15/22 Stop Date: 09/15/22 Status: Completed docusate sodium 100 mg oral [...] Maintenance,05/16/22 16:21:00 EDT, Route to Pharmacy Electronically, [facility], Partial fill upon patient request [...] drug. Start Date: 03/25/22 Status: Ordered oxyCODONE 20 mg oral tablet, [...] Date: 08/13/22 Status: Ordered Problem List Condition Confirmation Course [...] Exam Date Time Procedure Performing Provider Status 09/15/22 10:40 PM Shoulder Min 2 Views Right Lydia Wilhelm; Auth (Verified) Notes: (Shoulder Min 2 Views Right) Reason For Exam: with Pain;Trauma RESULT: Shoulder Min 2 Views Right Shoulder Min 2 Views Right, views Hx of Present Illness: Abd pain and left rib pain. nki; Reason: Trauma; with Pain; Clinical Question(s): Fracture COMPARISON: None. FINDINGS: Fracture through the distal right clavicle appears similar to previous examinations and appears chronic. Superior subluxation of the humerus consistent with chronic rotator cuff disease. Chronic appearing rib fractures identified. No acute abnormality identified. IMPRESSION: No acute abnormality identified. WSN: [id number] Ordering Physician: Jenny To Dictated By: Yonny Lynch MD Dictated Date/Time: 09/15/22 11:01 p Reviewed By: Yonny Lynch MD Signed By: Yonny Lynch MD Signed Date/Time: 09/15/22 11:01 pm Transcribed By: BERENICE Transcribed Date/Time: 09/15/22 11:00 pm Vital Signs Most recent to oldest [Reference Range]: 1 2 3 Oxygen Saturation [94-100 %] 100 % (09/15/22 6:53 PM) 100 % (09/15/22 5:33 PM) Pulse Rate [55-90 bpm] 88 bpm (09/15/22 6:53 PM) 85 bpm (09/15/22 5:33 PM) Blood Pressure [90-138/55-84 mm Hg] 125/76mm Hg (09/15/22 6:53 PM) 121/70mm Hg (09/15/22 5:33 PM) Respiratory Rate [16-30 br/min] 18 br/min (09/15/22 8:47 PM) 18 br/min (09/15/22 8:17 PM) 16 br/min (09/15/22 5:33 PM) Temperature [96.8-100.4 DegF] 99.4 DegF (09/15/22 6:53 PM) 98.7 DegF (09/15/22 5:33 PM) Liters per Minute 3 L/min (09/15/22 6:53 PM) 3 L/min (09/15/22 5:33 PM) Mode of Delivery (Oxygen) Nasal cannula (09/15/22 6:53 PM) Room air (09/15/22 5:33 PM) Blood pressure sites Arm, left (09/15/22 6:53 PM) Arm, left (09/15/22 5:33 PM) Temperature Route Oral (09/15/22 6:53 PM) Oral (09/15/22 5:33 PM) Social History Social History Type Response Tobacco Use: 4 or less cigar ettes(less than 1/4 pack)/day in last 30 days. Sex XR Shoulder - right GE 2 Views * BHSPowerscribe , CIS S: TRANSCRIBE Yonny Lynch MD S: VERIFY Event Display: Result: Authored Date: Shoulder Min 2 Views Right, views Hx of Present Illness: Abd pain and left rib pain. nki; Reason: Trauma; with Pain; Clinical Question(s): Fracture COMPARISON: None. FINDINGS: Fracture through the distal right clavicle appears similar to previous examinations and appears chronic. Superior subluxation of the humerus consistent with chronic rotator cuff disease. Chronic appearing rib fractures identified. No acute abnormality identified. IMPRESSION: No acute abnormality identified. WSN: [id number] Ordering Physician: Jenny To Dictated By: Yonny Lynch MD Dictated Date/Time: 09/15/22 11:01 p Reviewed By: Yonny Lynch MD Signed By: Yonny Lynch MD Signed Date/Time: 09/15/22 11:01 pm Transcribed By: BERENICE Transcribed Date/Time: 09/15/22 11:00 pm Patient Care team information Personnel Name: Jorge Garcia III, MD Address: Address: [address] [place] [id number]
--- OUTSIDE RECORDS SUMMARY | 2023-08-15 20:34 | XMS_ITS | Continuity of Care Document ---
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 Name Role Phone Jose LEE MD, Jorge Tsang Primary Care Physician Encounter [facility] Date(s): 10/31/21 - 11/01/[address] [address]- Encounter Diagnosis COPD exacerbation(Final) - 10/31/21 Discharge Disposition: A-D/C Home Attending Physician: Paulo Gold MD Admitting Physician: Gaby Pelaez MD Referring Physician: Not on Staff, Referring [...] mL, 6 Refills, Maintenance, 07/24/20 16:44:00 EDT, [facility]/pharmacy #[id number], 182, cm, 05/26/20 16:01:00 EDT, Height, 67, kg, 07/05/20 13:57:00 EDT, Dry Weight Start Date: 07/24/20 Status: Ordered albuterol CFC free 90 mcg/inh inhalation aerosol 2, puffs, Inhalation, Every 6 hours, PRN, j44.9, # 1 each, Refills 6, Tot. Refills 6, Maintenance, 07/24/20 16:44:00 EDT, Aerosol, Route to Pharmacy Electronically, [id number], [facility]/pharmacy #[id number], 182, cm, 05/26/20 16:01:00 [...] = 250 mg, By Mouth, Daily, for 3 days, # 3 tablet, 0 Refills, Acute 11/05/21 9:00:00 EST, 11/02/21 9:00:00 EST, Tablet, [facility]/pharmacy #[id number], Partial fill upon patient request if the prescription is for a schedule II opioid drug., 182.88, cm, 10/10/21 7... Start Date: 11/02/21 Stop Date: 11/05/21 Status: Ordered Compression Stockings See Instructions, # [...] 11/06/21 10:39:00 EST, 11/01/21 10:39:00 EST, Tablet, [facility]/pharmacy #[id number], Partial fill uponpatient request if [...] oral capsule 300 mg, Capsule, By Mouth, 11/01/21 9:00:00 EST Start Date: 11/01/21 Stop Date: 11/01/21 Status: Completed Incruse Ellipta 62.5 mcg/inh inhalation powder 1 each, Inhalation, Every 24 hours, doses should be taken at least 24 hours apart, j44.9, # 1 each,6 Refills, Maintenance, 08/13/20 16:33:00 EDT, Powder, [facility]/pharmacy #[id number], 182, cm, 05/26/20 16:01:00 [...] oral tablet 2.5 mg, Tablet, By Mouth, 11/01/21 9:00:00 EST Start Date: 11/01/21 Stop Date: 11/01/21 Status: Completed loperamide 2 mg oral capsule [...] 10:43:00 EST, 11/01/21 10:43:00 EST, REC Powder, [facility]/pharmacy #[id number], Partial fill upon patient [...] 0 Refills, Maintenance, 11/01/21 10:44:00 EST, Gum, [facility]/pharmacy #[id number], Partial fill upon patient [...] mg, By Mouth, Daily, for 3 days, 40mg PO daily for 3 days then resume 15mg PO daily, # 6 tablet, 0 Refills, Acute 11/04/21 10:38:00 EST, 11/01/21 10:38:00 EST, Tablet, [facility]/pharmacy #[id number], Partial fill upon patient request if the prescrip... Start Date: 11/01/21 Stop Date: 11/04/21 Status: Ordered predniSONE 5 mg oral tablet [...] 6, 03/31/07 11:15:26, Print MARTIN Number, [facility], [address] [place] [id number], [phone], Constant Indicator Start Date: 03/31/07 Stop Date: 10/27/07 Status: Ordered Toprol XL 25 mg oral tablet, extended release 25 mg, XL Tablet, By Mouth, 11/01/21 9:00:00 EST Start Date: 11/01/21 Stop Date: 11/01/21 Status: Completed Tylenol 325 mg oral tablet [...] Exam Date Time Procedure Performing Provider Status 10/31/21 2:55 PM Chest Portable Arminda Mckeon; Luis M (Verified) Notes: (Chest Portable) Reason For Exam: Shortness of Breath RESULT: Chest Portable Chest Portable Hx of Present Illness: pt reports SOB x2-3 days, intermittent, more constant as of today, 2L cont. at baseline for COPD, congested cough x1.5wks, also reports lower back LLE pain, recent DVT to LLE.;Reason: Shortness of Breath; Clinical Question(s): CHF COMPARISON: 10/08/2021 FINDINGS: LINES AND TUBES: None. LUNGS AND PLEURA: No consolidation. Coarse interstitial lung markings greatest peripherally in the mid to lower lungs, right more than left, likely reflects emphysema. Normal pulmonary vascularity. No pleural effusion. No pneumothorax. HEART, MEDIASTINUM AND MAMADOU: Heart is normal in size. Normal upper mediastinal and hilar contour. BONES AND SOFT TISSUES: No acute abnormality. Internal fixation plates and screws involving the right ribs. One small screwappears to have from the hardware as before. Additional healed rib deformities. Subacute fracture distal right clavicle, similar to that seen previously. IMPRESSION: Coarsened peripheral markings likely reflects emphysema. No specific findings of pneumonia or edema. WSN: [id number] Ordering Physician: Jeff Iqbal Dictated By: William Mckeon MD Dictated Date/Time: 10/31/21 3:32 pm Reviewed By: William Mckeon MD Signed By: William Mckeon MD Signed Date/Time: 10/31/21 3:32 pm Transcribed By: BERENICE Transcribed Date/Time: 10/31/21 3:27 pm Vital Signs Most recent to oldest [Reference Range]: 1 2 3 Oxygen Saturation [94-100 %] 98 % (11/01/21 10:38 AM) 100 % (11/01/21 10:34 AM) 95 % (11/01/21 7:42 AM) Pulse Rate [55-90 bpm] 90 bpm (11/01/21 10:34 AM) 84 bpm (11/01/21 8:34 AM) 75 bpm (11/01/21 7:42 AM) Blood Pressure [90-138/55-84 mm Hg] 121/70mm Hg (11/01/21 10:34 AM) 141/81mm Hg *H* (11/01/21 8:35 AM) 141/81mm Hg *H* (11/01/21 8:34 AM) Respiratory Rate [16-30 br/min] 20 br/min (11/01/21 10:34 AM) 18 br/min (11/01/21 8:36 AM) 20 br/min (11/01/21 7:42 AM) Temperature [96.8-100.4 DegF] 99.2 DegF (11/01/21 10:34 AM) 99.2 DegF (11/01/21 7:42 AM) 98.0 DegF (11/01/21 6:17 AM) Liters per Minute 3 L/min (11/01/21 10:38 AM) 5 L/min (11/01/21 10:34 AM) 2 L/min (11/01/21 7:42 AM) Mode of Delivery (Oxygen) Nasal cannula (11/01/21 10:38 AM) Nasal cannula (11/01/21 10:34 AM) Nasal cannula (11/01/21 7:42 AM) Blood pressure sites Arm, left (11/01/21 10:34 AM) Arm, left (11/01/21 7:42 AM) Temperature Route Oral (11/01/21 10:34 AM) Oral (11/01/21 7:42 AM) Oral (11/01/21 6:17 AM) Social History Social History Type Response Tobacco Use: 2 cigarettes a day . Sex
[2023-08-15 20:46] LABS: Alanine Aminotransferase 17 U/L (0-40); Albumin Level 3.5 g/dL (3.5-5.0); Alkaline Phosphatase 153 U/L (39-117); Anion Gap 15 (12-20); Aspartate Amino Transferase 23 U/L (5-37); Bilirubin Total 0.2 mg/dL (0.0-1.0); Blood Urea Nitrogen 13 mg/dL (9-16); Calcium 9.7 mg/dL (8.4-10.2); Carbon Dioxide 29 mmol/L (22-29); Chloride 99 mmol/L (96-108); Creatinine Clr Calc Pharmacy 90.5; Estimated Glomerular Filt Rate > 60; Glucose Random 112 mg/dL (60-115); Potassium 3.4 mmol/L (3.3-5.1); Sodium 140 mmol/L (135-145); Total Protein 7.6 g/dL (6.5-8.0)
--- NOTE | 2023-08-15 21:08 | MHC.EDTECH ---
Patient changed over and repositioned
[2023-08-15] MEDS: predniSONE 5 MG TABLET PO (21:30)
[2023-08-15] MEDS: Apixaban 5 MG TABLET PO (21:30)
[2023-08-15] MEDS: Doxycycline Monohydrate 100 MG CAPSULE PO (21:30)
--- NOTE | 2023-08-15 21:31 | PC.NURSE ---
med rec complete, pt medicated per MAR. continues to report pain, provider notified.
[2023-08-15] MEDS: Acetaminophen 325 MG TABLET 650 MG PO (21:41)
[2023-08-15] MEDS: LORazepam 1 MG TABLET PO (21:41)
--- NOTE | 2023-08-15 21:42 | PC.NURSE ---
pt medicated per MAR.
--- NOTE | 2023-08-15 22:19 | PC.NURSE ---
pt resting quietly, asking for food - given turkey sandwich and pudding, pt states that he may order in food, appears to be using bilateral extremities with no issues.
--- NOTE | 2023-08-15 23:20 | PC.NURSE ---
Report taken from MIRTHA Stanley. Patient arrived at 2300, report given to Amy SHANNON. No interventions performed by this RN.
[2023-08-16] VITALS: BP 130/64; PULSE 86; RESP 18; TEMP 36.6; O2SAT 93
[2023-08-16] MEDS: oxyCODONE HCl Immed Release 5 MG TABLET PO ×5 (00:46→20:55)
[2023-08-16] MEDS: LORazepam 1 MG TABLET PO (01:40)
[2023-08-16 02:00] VITALS: BP 129/84; PULSE 104; RESP 18; TEMP 36.8; O2SAT 95
--- NOTE | 2023-08-16 07:53 | PC.NURSE ---
Resting comfortably at this time, breathing even and unlabored.
[2023-08-16 08:13] VITALS: BP 129/84; PULSE 104; O2SAT 95
--- NOTE | 2023-08-16 08:24 | PC.NURSE ---
Patient sleeping soundly, therapy went in to see patient, upon waking patient requesting pain medication. 5mg prn oxycodone brought in for patient, patient stating he can not take pain meds without coffee. Upon breakfast trays coming up patient given coffee to take pain medication with. Patient stating 5mg of oxy does nothing and he wants 10mg . Stating if he doesnt get more pain medication he would get security involved. Patient re directed to eat breakfast, astro technician into room to change patient who was incont of large amount of urine.
--- NOTE | 2023-08-16 08:37 | PC.NURSE ---
phlebotomy called to redrawn cbc from last evening
[2023-08-16 10:41] LABS: Basophils Absolute Auto 0.1 X10*3/uL (0.0-0.2); Basophils Percent Auto 0.5 % (0-2); Eosinophils Absolute Auto 0.3 X10*3/uL (0.0-0.4); Hematocrit 27.3 % (42.0-52.0); Hemoglobin 8.5 g/dl (14.0-18.0); Imm Gran Abs Auto 0.46 X10*3/uL (0.00-0.03); Imm Gran Pct Auto 3.6 % (0.0-0.4); Lymphocytes Absolute Auto 1.2 X10*3/uL (1.2-4.9); Lymphocytes Percent Auto 9.5 % (20-40); Mean Corpuscular HGB Conc 31.1 g/dl (31.0-36.0); Mean Corpuscular Hemoglobin 26.5 pg (27.0-33.0); Mean Platelet Volume 9.5 fL (9.4-12.4); Monocytes Absolute Auto 1.1 X10*3/uL (0.1-1.2); Monocytes Percent Auto 8.6 % (2-11); Neutrophils Absolute Auto 9.6 x10*3/uL (2.0-8.3); Neutrophils Percent Auto 75.8 % (45-73); Platelet Count 412 X10*3/uL (160-400); Red Blood Count 3.21 X10*6/uL (4.60-5.80); Red Cell Distribution Width 15.9 % (11.0-16.0); White Blood Count 12.7 X10*3/uL (4.8-10.8)
[2023-08-16 10:45] LABS: MANUAL DIFF FLAG NO
[2023-08-16] MEDS: Furosemide 20 MG TABLET PO (10:49)
[2023-08-16] MEDS: Metoprolol Succinate ER 25 MG TAB.ER.24H PO (10:49)
[2023-08-16] MEDS: Apixaban 5 MG TABLET PO ×2 (10:49→20:51)
[2023-08-16] MEDS: Atorvastatin Calcium 80 MG TABLET PO (10:49)
[2023-08-16] MEDS: predniSONE 5 MG TABLET PO ×3 (10:49→20:51)
[2023-08-16] MEDS: DULoxetine HCl 60 MG CAPSULE.DR 120 MG PO (10:50)
[2023-08-16] MEDS: Doxycycline Monohydrate 100 MG CAPSULE PO ×2 (10:50→20:51)
--- NOTE | 2023-08-16 13:06 | MHC.CM.PN ---
Addendum entered by Danielle Sofia 08/16/23 14:49: CM RECEIVED DENIALS FROM ALL SNFS REFERRED TO PT APPARENTLY IS OUT OF MEDICARE DAYS AND HIS [place] DO[place] NOT COVER REHAB CM TO INFORM PT Addendum entered by Danielle Sofia 08/16/23 14:05: CM MET WITH PT TO DISCUSS DC PLAN PT REPORTS HE NEEDS STR HE HAS NO PREFERENCES REGARDING FACILITY EXCEPT THAT HE BE ALLOWED TO SMOKE THERE HE DID SAY HE HAS BEEN TO STR IN [place] AND WOULD BE WILLING TO GO THERE AGAIN HE DOES NOT REMEMBER THE NAME BUT CONFIRMS DISTANCE IS NOT AN ISSUE FOR HIM REFERRALS MADE TO FACILITIES LISTED SMOKING ALLOWED IN [facility] Original Note: PT IN ED OF BED 6. PT IS RECOMMENDING STR REFERRALS ARE OUT HOWEVER PT DOES NOT HAVE A QUALIFYING STAY TO USE HIS MEDICARE BENEFIT REFERRALS SENT TO DETERMINE IF PTS [place] WILL COVER STR PT LIVES AT HOME IN A [place], HIS SONS BEST FRIEND LIVES WITH HIM AND HIS SON LIVES DOWNSTAIRS WITH HIS FAMILY PTS SON IS ALSO HIS SPINDLE SANDER
[2023-08-16 14:00] VITALS: BP 126/65; PULSE 88; RESP 20; TEMP 36.8; O2SAT 96
--- NOTE | 2023-08-16 14:47 | PC.NURSE ---
Calm and cooperative, requesting more oxycodone and ativan , explained to patient ativan is not currently ordered and oxycodone order is for 5mg. Patient helped to be reposiotned in bed, condom cath in place draining clear yellow urine. Patient easily re-directable. Provided with warm blanket, food, and fluids
--- NOTE | 2023-08-16 16:34 | MHC.CM.PN ---
Addendum entered by Judi Rucker RN 08/16/23 16:41: DETAILED MESSAGE LEFT ON SON BEENA'S CELL PHONE W/PLAN FOR DC TOMORROW AND INFORMATION REGARDING PT'S LACK OF MEDICARE DAYS AND NO SNF BENEFIT ON PT'S MH. Original Note: CM MET W/PT WHO REPORTS HE DOES NOT HAVE [place] TO GET IN APT, CM ATTEMPTED TO CANTACT PT'S SON/PRIMARY CONTACT HOWEVER NO ANSWER ON HOUSE/CELL PHONE, CM CONTACTED PT'S SECONDARY CONTACT MARY TESFAYE WHO REPORTS HE WOULD BE HOME AT 6PM AND THEN CALLED CM BACK AND SAID HE WILL BE AT WORK, CM WILL NEED TO FOLLOW UP IN AM FOR D/C.
--- NOTE | 2023-08-16 18:26 | PHA.MEDREC ---
Pharmacy Consult ? Medication Reconciliation Pharmacy has reviewed the medication reconciliation completed by Lizeth. Meliza Kurtz, ChaunceyD
[2023-08-16 19:18] VITALS: BP 120/82; PULSE 90; RESP 16; TEMP 36.8; O2SAT 98
--- NOTE | 2023-08-17 00:29 | MHC.EDTECH ---
PATIENT DRANK 2 CUPS OF COFFEE AND HAD A HAM SANDWICH ,PT AWAKE WATCHING TELEVISION .
--- NOTE | 2023-08-17 00:35 | PC.NURSE ---
Acquired care at 2100. Pt was complaining of severe pain to right shoulder. Reported that the oxycodone was not effective since he was taken 2mg of dilauded po at home. notified. Xray to right shoulder was ordered and done. Tylenol offered.
[2023-08-17] MEDS: Acetaminophen 325 MG TABLET 650 MG PO (00:43)
[2023-08-17] MEDS: oxyCODONE HCl Immed Release 5 MG TABLET PO ×2 (05:38→11:18)
[2023-08-17 05:49] VITALS: BP 130/72; PULSE 80; RESP 18; TEMP 36.5; O2SAT 94
--- NOTE | 2023-08-17 08:42 | MHC.CM.PN ---
Addendum entered by Danielle Sofia 08/17/23 09:25: REFERRAL S[place] [facility] [place]ERMINE IF THEY CAN ASSIST IN GETTING PTS [place] REINSTATED Addendum entered by Danielle Sofia 08/17/23 09:05: BEENA ALSO REPORTS THE PT WILL ASK FOR IV DILAUDID FREQUENTLY, HE SAYS HE WOULD PREFER THE PT ONLY GET PO IF HE IS ABLE HE SAYS MEDS FROM THE [facility] FAMILY USUALLY MAKE THE PT EXHIBIT ODD BEHAVIORS HE SAYS THE PT IS A COMPULSIVE LIAR AND WILL TELL PEOPLE NO ONE IS CARING FOR HIM AT HOME IF IT WILL HELP HIM STAY LONGER HE SAYS HE HAS ALSO THREATENED TO THROW HIMSELF ON THE FLOOR IF HE WAS DISCHARGED PT CANNOT HAVE A VNA DUE TO NOT HAVE AN ACTIVE PCP PT CANNOT BE CONNECTED WITH A PCP AT THIS TIME HIS INSURANCE IS NOT ACTIVE Original Note: CONNIE SPOKE WITH PTS SON, BEENA VARMA WHO REPORTS THE PT HOPS FROM ED TO ED TRYING TO GET HOSPITALS TO ADMIT HIM AND SEND HIM TO STR HE IS AWARE THE PT IS OUT OF MEDICARE DAYS AND HIS [place] HAS LAPSED HE IS WORKING TO GET HIS FATHERS [employer] ACTIVE AGAIN AND SAYS HE HAS SUBMITTED EVERYTHING AT THIS POINT BUT THEY SAID IT COULD TAKE UP TO 90 DAYS BEENA REPORTS 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 THE LAST COUPLE OF TIMES BEENA UNDERSTANDS THE PT WILL HAVE TO COME HOME WITH RESUMPTION OF FAMILY CARE HE WILL GO VIA BLS AT 1500 HOURS
[2023-08-17 09:25] VITALS: BP 142/82; PULSE 85; RESP 16; TEMP 36.4; O2SAT 96
--- NOTE | 2023-08-17 10:13 | PC.NURSE ---
attempted to medicate patient, pt states he will only take his medications with coffee. call placed to kitchen for coffee
[2023-08-17] MEDS: Apixaban 5 MG TABLET PO (11:18)
[2023-08-17] MEDS: predniSONE 5 MG TABLET PO ×2 (11:18→16:18)
[2023-08-17] MEDS: DULoxetine HCl 60 MG CAPSULE.DR 120 MG PO (11:19)
[2023-08-17] MEDS: Metoprolol Succinate ER 25 MG TAB.ER.24H PO (11:19)
[2023-08-17] MEDS: Atorvastatin Calcium 80 MG TABLET PO (11:19)
[2023-08-17] MEDS: Furosemide 20 MG TABLET PO (11:19)
[2023-08-17] MEDS: Doxycycline Monohydrate 100 MG CAPSULE PO (11:19)
--- NOTE | 2023-08-17 11:35 | PC.NURSE ---
medicated per the MAR, prn pain medication utilized at this time. pt no signs/symptoms of distress. resting quietly in room with call giraldo in reach
--- NOTE | 2023-08-17 15:58 | MHC.CM.PN ---
SPOKE WITH SON BEENA WHO INFORMS THIS CM THAT HE HAS MADE SOME GOOD HEADWAY ON THE [place] REINSTATEMENT FORMS AND IS READY FOR HIS FATHER TO COME HOME. BLS TRANSPORT EN ROUTE. RN AWARE.
--- NOTE | 2023-08-17 17:18 | PC.NURSE ---
EMS present to bring patient home and started stating that he did not have anyone at home to assist him with his needs. Per CM note patient has family at home that is able to assist him. Spoke with CM who also spoke with EMS regarding discharge plans and the fact that the patient lives with his son who is willing to help and take care of patient. Patient also spoke with his DIL who reinforced that patient would be taken care of at home and patient was more agreeable regarding discharge after this conversation.
[2023-08-17 17:25] VITALS: BP 126/83; PULSE 77; RESP 16; O2SAT 98
== END 2023-08-17 17:29 | disposition home or self-care (01) ==
PROVIDERS: Emergency Provider Internal Medicine; PCP Internal Medicine
DX: S41.112A Laceration without foreign body of left upper arm, initial encounter (principal); S51.812A Laceration without foreign body of left forearm, initial encounter; R51.9 Headache, unspecified; M54.2 Cervicalgia; J43.9 Emphysema, unspecified; R06.02 Shortness of breath; R07.89 Other chest pain; R00.0 Tachycardia, unspecified; F17.210 Nicotine dependence, cigarettes, uncomplicated; W01.10XA Fall on same level from slipping, tripping and stumbling with subsequent striking against unspecified object, initial encounter; Y93.9 Activity, unspecified; Y92.9 Unspecified place or not applicable; Y99.9 Unspecified external cause status; Z79.01 Long term (current) use of anticoagulants; Z86.718 Personal history of other venous thrombosis and embolism; Z79.899 Other long term (current) drug therapy; Z71.6 Tobacco abuse counseling; Z91.81 History of falling
CPT/HCPCS: 36415; 70450; 71045; 72125; 73030; 80053; 85025; 93005; 97162; 99285